=== PATIENT | female | born 1950 | race Caucasian/White ===

== ENCOUNTER 2017-05-02 14:38 | Emergency (ER) | payer MEDICARE, SELFPAY ==
[2017-05-02 14:38] VITALS: BP 176/91; PULSE 87; RESP 18; TEMP 36.2; O2SAT 97; BMI 29.9
[2017-05-02 15:19] LABS: Bacteria 0 SEEN /hpf (None Seen); Mucous, Urine 0 SEEN /hpf (<or=2+); Red Blood Cells-Urine 0 SEEN /hpf (0-5); White Blood Cells 0 SEEN /hpf (0-5)
[2017-05-02 15:32] LABS: Color, Urine Yellow (Yellow); Glucose, Dipstick Normal (Normal); Ketone-Dipstick Negative (Negative); Leukocyte Esterase-Dipstick Negative /ul (Negative); Nitrite-Dipstick Negative (Negative); Occult Blood-Urine Negative /ul (Negative); Protein-Dipstick Negative (Negative); Urine Bilirubin Dipstick Negative (Negative); Urine Clarity Sl. Cloudy (Clear); Urine Urobilinogen Normal (Normal)
[2017-05-02 15:54] LABS: Squamous Epithelial Cells - UA 0-5 SEEN /hpf (5-10)
--- NOTE | 2017-05-02 16:21 | ED.VISSUMM ---
- ER Visit Summary Date of Service: 05/02/17 Chief Complaint: Right flank pain History of Present Illness: The patient is a 67 F who presents with right flank pain and right upper quadrant abdominal pain that began yesterday. Patient states the pain began suddenly. Patient states the pain is aching and stabbing. Patient states pain started over the right upper quadrant and radiated around to her back. Patient has a history of cholecystectomy. Patient states her pain is worse with movement. Patient states her pain improves with heat and rest. Patient denies any nausea or vomiting. Patient denies any diarrhea or constipation. Patient denies any melena or hematochezia. Patient denies any urinary complaints. Physical Examination: Vital signs are stable. Patient is afebrile. Patient is in no acute distress. Oral mucosa is pink and moist. Heart was regular rate and rhythm. Lungs are clear and equal bilaterally. There is good respiratory effort noted. Abdomen is soft. There is some right middle and right lower abdominal tenderness. There is no rebound or guarding noted. There is also some mild lower right flank pain. Strength is 5/5 bilaterally in the upper and lower extremities. There are no sensory deficits noted. There is no calf tenderness noted. Test Results: Urinalysis was within normal limits. CBC was within normal limits. Metabolic profile showed a slight hypokalemia of 3.4. Emergency Department Course and Treatment: Patient was given a dose of morphine here. Patient felt better on reevaluation. Patient was advised of her lab results. Patient was instructed to watch for any rashes. Patient was instructed to follow-up with her primary care physician in 5-7 days. Patient was instructed to return if she did develop a rash. Patient understood and was agreeable with the plan. All questions were answered. Disposition: Discharge home Impression: Right sided abdominal pain This note was generated with [employer] dictation software. It may contain incorrect words, spelling, and punctuation that were not noted in review of the chart prior to signing ED Disposition - Plan for ED Patient: Disposition: Home or Assisted Living Chief Complaint: Flank Pain Diagnosis: Right-sided abdominal pain of unknown cause Instructions: ED Abdominal Pain Unkn Cause Referrals: Paul Reynolds MD [Primary Care Provider] -
[2017-05-02] MEDS: Ketorolac 30 MG/ML Syringe 15 MG IV (16:56)
[2017-05-02 16:57] VITALS: BP 169/92; PULSE 76; RESP 16; O2SAT 93
[2017-05-02 17:06] LABS: Absolute Lymphocyte Count 2.47 X10^3/ul (0.83-4.51); Absolute Neutrophil Count 3.8 X10^3/uL (2.0-7.7); Basophil# 0.04 X10^3/uL; Basophil% 0.6 % (0-1); Eosinophil# 0.16 X10^3/uL; Eosinophils% 2.3 % (0-5); Hematocrit 44.1 % (37-47); Hemoglobin 14.8 g/dl (12.0-15.0); Lymphocyte # 2.47 X10^3/ul (4.0); Lymphocyte % 34.9 % (19-41); Mean Corp Hgb Conc 33.6 g/gl (32-36); Mean Corpuscular Hgb 28.8 pg (27.0-32.0); Mean Corpuscular Volume 85.8 fL (81-99); Mean Platelet Vol. 9.9 fl (6.2-12.0); Monocyte# 0.63 X10^3/uL; Monocyte% 8.9 % (0-10); Neutrophil # 3.76 X10^3/uL (2.7-7.7); POSITIVE COUNT NO; POSITIVE DIFFERENTIAL NO; POSITIVE MORPHOLOGY NO; Platelet Count 253 K/mm3 (150-450); RBC Distribution Width CV 12.9 % (11.6-14.6); RBC Distribution Width SD 39.6 fl (35.1-43.9); Red Blood Count 5.14 M/mm3 (4.2-5.4); White Blood Count 7.1 K/mm3 (4.4-11.0)
[2017-05-02 17:19] LABS: ALB/GLOB Ratio 1.1 RATIO (0.9-2.4); AST(SGOT) 13 U/L (15-37); Alanine Aminotransfer ALT/SGPT 19 U/L (13-56); Albumin, Serum 3.7 g/dL (3.2-5.0); Alkaline Phosphatase 137 U/L (45-117); Anion Gap 9 (5-15); BUN 14 mg/dL (7-18); BUN/Creat Ratio 21.4 RATIO (10-20); Calcium,Total 8.6 mg/dL (8.5-10.1); Chloride 104 mmol/L (98-107); Creatinine, Serum 0.65 mg/dL (0.55-1.02); EST Glomerular Filtration Rate 96 mL/min (>60); Est Glom Filt Rate - Afr Amer 117 mL/min (>60); Estimated Creatinine Clearance 51.81 ml/min; Globulin 3.3 g/dL (2.2-4.2); Glucose 86 mg/dL (74-106); Lipase 146 U/L (73-393); Potassium 3.4 mmol/L (3.5-5.1); Sodium Level 142 mmol/L (136-145)
== END 2017-05-02 18:32 | disposition home or self-care (01) ==
PROVIDERS: Emergency Provider Emergency Medicine; Family Provider Family Medicine; PCP Family Medicine
DX: R10.11 Right upper quadrant pain (principal); E87.6 Hypokalemia; J45.909 Unspecified asthma, uncomplicated; M19.90 Unspecified osteoarthritis, unspecified site; K21.9 Gastro-esophageal reflux disease without esophagitis; Z79.899 Other long term (current) drug therapy; Z90.710 Acquired absence of both cervix and uterus; Z90.49 Acquired absence of other specified parts of digestive tract
CPT/HCPCS: 80053; 81001; 83690; 85025; 96374; 99283; A4216

== ENCOUNTER 2017-08-04 17:45 | Emergency (ER) | payer MEDICARE, SELFPAY ==
--- NOTE | 2017-08-04 13:38 | EKG12_ITS ---
Test Reason : CP Blood Pressure : / mmHG Vent. Rate : 076 BPM Atrial Rate : 076 BPM P-R Int : 132 ms QRS Dur : 078 ms QT Int : 414 ms P-R-T Axes : 045 036 043 degrees QTc Int : 465 ms Normal sinus rhythm Normal ECG Confirmed by MAGGIE ALLEN, KRISTIN ([id number]), writer editor SOFIA ARREDONDO ([id number]) on 08/08/2017 5:41:52 PM Referred By: TOBIAS Confirmed By:KRISTIN SERRANO MD
--- NOTE | 2017-08-04 17:45 | DT_ITS ---
This patient was seen during an EMR downtime July 30, 2017 - August 06, 2017. This patient may have a combination of paper and electronic documentation or all paper documentation. All documentation is viewable within the e-chart portion of [employer] for each patient visit.
--- NOTE | 2017-08-04 17:45 | RAD_ITS ---
STUDY: X-RAY CHEST REASON FOR EXAM: Female, 67 years old. Cough with shortness of breath and chest pain. TECHNIQUE: PA and lateral views of the chest. COMPARISON: None. FINDINGS: The lungs are clear and expanded. There is no demonstrated pleural abnormality. Normal size heart. Normal mediastinum and gagandeep. Normal visualized pulmonary arteries. Normal visualized aortic arch and descending thoracic aorta. There is straightening of the normal kyphosis of the thoracic spine. There are multilevel degenerative changes of the visualized thoracic spine. 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 There is no demonstrated abnormality of the visualized soft tissue structures of the upper abdomen. RAD/Chest PA and Lateral IMPRESSION: No acute cardiopulmonary disease. Electronically Signed: Danilo Dumont MD at 18:17 EDT , Service support ,
[2017-08-07 18:20] LABS: BUN 15 mg/dL (7-18); Glucose 95 mg/dL (74-106)
[2017-08-07 18:21] LABS: Anion Gap 8 (5-15); BUN/Creat Ratio 20.5 RATIO (10-20); Calcium,Total 8.5 mg/dL (8.5-10.1); Chloride 106 mmol/L (98-107); Creatinine, Serum 0.73 mg/dL (0.55-1.02); EST Glomerular Filtration Rate 85 mL/min (>60); Est Glom Filt Rate - Afr Amer 103 mL/min (>60); Potassium 2.9 mmol/L (3.5-5.1); Sodium Level 145 mmol/L (136-145)
[2017-08-07 21:06] LABS: Hematocrit 44.4 % (37-47); Hemoglobin 14.7 g/dl (12.0-15.0); Mean Corpuscular Volume 86.2 fL (81-99); Red Blood Count 5.15 M/mm3 (4.2-5.4); White Blood Count 8.8 K/mm3 (4.4-11.0)
[2017-08-07 21:07] LABS: Absolute Lymphocyte Count 1.49 X10^3/ul (0.83-4.51); Basophil# 0.05 X10^3/uL; Basophil% 0.6 % (0-1); Eosinophil# 0.35 X10^3/uL; Lymphocyte # 1.49 X10^3/ul (4.0); Lymphocyte % 16.9 % (19-41); Mean Corp Hgb Conc 33.1 g/gl (32-36); Mean Corpuscular Hgb 28.5 pg (27.0-32.0); Monocyte# 0.93 X10^3/uL; Monocyte% 10.5 % (0-10); Neutrophil # 6.01 X10^3/uL (2.7-7.7); Neutrophil % 67.9 % (47-70); POSITIVE COUNT NO; POSITIVE DIFFERENTIAL NO; POSITIVE MORPHOLOGY NO; Platelet Count 226 K/mm3 (150-450); RBC Distribution Width CV 12.8 % (11.6-14.6); RBC Distribution Width SD 39.8 fl (35.1-43.9)
== END 2017-08-04 19:15 | disposition home or self-care (01) ==
PROVIDERS: Emergency Provider Emergency Medicine; Family Provider Family Medicine; PCP Family Medicine
DX: J44.1 Chronic obstructive pulmonary disease with (acute) exacerbation (principal); E87.6 Hypokalemia
CPT/HCPCS: 36415; 71046; 80048; 84484; 85025; 93005; 94640; 99282; J7030; A4216

== ENCOUNTER 2017-12-12 07:34 | Emergency (ER) | payer MEDICARE, SELFPAY ==
[2017-12-12 07:35] VITALS: BP 159/87; PULSE 89; RESP 18; TEMP 36; O2SAT 98; BMI 28.2
--- NOTE | 2017-12-12 07:41 | RAD_ITS ---
STUDY: X-RAY CHEST REASON FOR EXAM: Female, 67 years old. Chest pain and shortness of breath. TECHNIQUE: PA and lateral views of the chest. COMPARISON: Comparison is made with prior study dated March 28, 2016. FINDINGS: EKG electrodes are seen. Hyperinflation. Mild increased markings at the lung bases suggestive of a mild bibasilar scarring. No acute infiltrate is seen. There is no demonstrated pleural abnormality. Normal size heart. Normal mediastinum and gagandeep. Normal visualized pulmonary arteries. There is atherosclerotic tortuosity of the aortic arch and descending thoracic aorta. There are diffuse degenerative changes of the visualized thoracic spine. Normal visualized ribs, clavicles, and shoulders. There is no demonstrated abnormality of the visualized soft tissue structures of the upper abdomen. RAD/Chest PA and Lateral IMPRESSION: Stable mild increased markings at the lung bases suggestive of mild scarring. No acute infiltrate is seen. Electronically Signed: Magdiel Cheung MD at 9:19 EDT Tel [phone], Service support ,
--- NOTE | 2017-12-12 07:41 | EKG12_ITS ---
Test Reason : GENERAL ILLNESS Blood Pressure : / mmHG Vent. Rate : 073 BPM Atrial Rate : 073 BPM P-R Int : 144 ms QRS Dur : 070 ms QT Int : 414 ms P-R-T Axes : 078 064 061 degrees QTc Int : 456 ms Sinus rhythm with Premature atrial complexes with Aberrant conduction Otherwise normal ECG Confirmed by MAGGIE ALLEN, KRISTIN ([id number]), book editor SOFIA ARREDONDO ([id number]) on 12/13/2017 10:05:42 AM Referred By: RAFAEL Confirmed By:KRISTIN SERRANO MD
[2017-12-12] MEDS: Ipratropium/Albuterol Sulfate 3 ML AMPUL.NEB INHALATION (07:58)
[2017-12-12 07:59] VITALS: PULSE 79; RESP 26
--- NOTE | 2017-12-12 08:01 | ED.VISSUMM ---
- ER Visit Summary Date of Service: 12/12/17 Chief Complaint: [] flu symptoms today, received flu shot yesterday History of Present Illness: The patient is a 67 F [] history of asthma reports she was well received a flu shot left deltoid, later in the day she felt slightly achy had a slight cough, this morning the symptoms intensified with diffuse body pain cough slight hoarse voice and persistent sense of wheezing and exacerbation of her asthma. She had none of these symptoms before the flu vaccination. She has no history of [place] PE or DVT she has been using her asthma medications she came in because she is concerned she has pneumonia, bowel bladder habits unremarkable the rest of her review of systems are negative Physical Examination: [] Her vital signs are within normal range she is resting comforting the bed she does have a dry cough here her voice is slightly hoarse but there is no stridor or drooling her nose is slightly congested her throat slightly erythematous the neck is supple the lungs are clear the heart tones unremarkable abdomen soft nontender upper lower extremities unremarkable neuro exam is unremarkable she is in no distress Test Results: [] Emergency Department Course and Treatment: [] She is concerned that she contracted the flu from the flu vaccination she does have some viral type symptoms screening labs will be obtained therapy provided Shins EKG troponin screening labs chest x-ray unremarkable, she received IV fluids, she is feeling better, at this time I explained the concept of viral illness the potential that this may or may not be related to the flu vaccination she is feeling comfortable she is willing stable for discharge home and agrees to outpatient management and follow-up her doctors and return for change in symptoms Treatment Plan: [] Disposition: [] Home stable Impression: [] Cough body aches myalgia after flu vaccination, possible viral illness This note was generated with [employer] software. It may contain incorrect words, spelling, and punctuation that were not noted in review of the chart prior to signing ED Disposition - Plan for ED Patient: Chief Complaint: General Illness Referrals: Paul Reynolds MD [Primary Care Provider] -
[2017-12-12 08:29] LABS: Absolute Lymphocyte Count 1.34 X10^3/ul (0.83-4.51); Absolute Neutrophil Count 2.7 X10^3/uL (2.0-7.7); Basophil# 0.01 X10^3/uL; Basophil% 0.2 % (0-1); Eosinophil# 0.07 X10^3/uL; Eosinophils% 1.5 % (0-5); Hematocrit 44.5 % (37-47); Hemoglobin 15.2 g/dl (12.0-15.0); Lymphocyte # 1.34 X10^3/ul (4.0); Lymphocyte % 29.5 % (19-41); Mean Corp Hgb Conc 34.2 g/gl (32-36); Mean Corpuscular Hgb 29.3 pg (27.0-32.0); Mean Corpuscular Volume 85.9 fL (81-99); Mean Platelet Vol. 9.7 fl (6.2-12.0); Monocyte# 0.44 X10^3/uL; Monocyte% 9.7 % (0-10); Neutrophil # 2.67 X10^3/uL (2.7-7.7); Neutrophil % 58.9 % (47-70); POSITIVE COUNT NO; POSITIVE DIFFERENTIAL NO; POSITIVE MORPHOLOGY NO; Platelet Count 187 K/mm3 (150-450); RBC Distribution Width CV 12.4 % (11.6-14.6); RBC Distribution Width SD 38.8 fl (35.1-43.9); Red Blood Count 5.18 M/mm3 (4.2-5.4); White Blood Count 4.5 K/mm3 (4.4-11.0)
[2017-12-12 08:46] LABS: Anion Gap 6 (5-15); BUN 11 mg/dL (7-18); BUN/Creat Ratio 14.6 RATIO (10-20); Calcium,Total 9.1 mg/dL (8.5-10.1); Chloride 106 mmol/L (98-107); Creatinine, Serum 0.75 mg/dL (0.55-1.02); EST Glomerular Filtration Rate 82 mL/min (>60); Est Glom Filt Rate - Afr Amer 99 mL/min (>60); Estimated Creatinine Clearance 51.81 ml/min; Glucose 100 mg/dL (74-106); Potassium 3.8 mmol/L (3.5-5.1); Sodium Level 141 mmol/L (136-145)
--- NOTE | 2017-12-12 10:14 | ED.DEP ---
ED Disposition - Plan for ED Patient: Chief Complaint: General Illness Instructions: ED URI Viral W Wheezing Referrals: Paul Reynolds MD [Primary Care Provider] -
[2017-12-12 10:33] VITALS: BP 120/68; PULSE 80; RESP 16; RESP 17; O2SAT 96
== END 2017-12-12 10:51 | disposition home or self-care (01) ==
LOC: ED 07:59
PROVIDERS: Emergency Provider Emergency Medicine; Family Provider Family Medicine; PCP Family Medicine
DX: J06.9 Acute upper respiratory infection, unspecified (principal); J45.909 Unspecified asthma, uncomplicated; R06.02 Shortness of breath; Z79.899 Other long term (current) drug therapy
CPT/HCPCS: 71046; 80048; 83880; 84484; 85025; 93005; 94640; 96360; 96361; 99284; J7030; J7040

== ENCOUNTER 2018-05-09 09:05 | Emergency (ER) | payer MEDICARE, SELFPAY ==
[2018-05-09 09:06] VITALS: BP 163/82; PULSE 66; RESP 17; TEMP 36.7; O2SAT 98; BMI 28.2
--- NOTE | 2018-05-09 09:15 | CT_ITS ---
STUDY: CT ABDOMEN AND PELVIS WITHOUT CONTRAST REASON FOR EXAM: Female, 68 years old. Right flank pain. RADIATION DOSAGE (If Supplied By Facility): CTDIvol = ( 13.94 ) mGy, DLP = ( 637.22 ) mGycm TECHNIQUE: Transaxial images were obtained from the dome of the diaphragm to the symphysis pubis without oral contrast, and without intravenous contrast. Sagittal and coronal images were reconstructed. Individualized dose optimization techniques were used for this CT. COMPARISON: Comparison is made with prior study dated May 21, 2010. FINDINGS: Minimal increased markings at the left lung base suggestive of left basilar atelectasis. The visualized portions of the heart are within normal limits. Normal liver. The patient is status post cholecystectomy. Normal spleen. 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 Normal pancreas. Normal bilateral adrenal glands. Stable 1 cm x 1.2 cm cyst in the posterior midportion of the right kidney. There is a 2 cm x 1.9 cm cyst in the lower pole of the right kidney. There is a 6.3 mm calculus in the distal portion of the right ureter. Just distal to this, there is a 2 mm calculus in the region of the right ureterovesical junction. Mild degree of right hydronephrosis and right hydroureter. Stable 1.2 cm x 1.4 cm cyst in the upper posterior aspect of the left kidney. There is also evidence of a 2.2 cm x 2.1 cm cyst in the anterior inferior portion of the left kidney. There is a small hiatal hernia. Normal small intestine. There are multiple colonic diverticula consistent with diverticulosis. The appendix is visualized and appears normal. Normal abdominal aorta. Normal inferior vena cava. Normal retroperitoneum. Normal urinary bladder. There is absence of the uterus consistent with a prior hysterectomy. There is a small umbilical hernia containing fat. Normal osseous structures. CT/Abdomen/Pelvis without Cont IMPRESSION: 6.3 mm calculus in the distal portion of the right ureter as well as a 2 mm calculus in the right ureteral vesicle junction causing mild degree of right hydroureter and right hydronephrosis. Bilateral renal cysts. Sigmoid diverticulosis. Electronically Signed: Magdiel Cheung, at 10:29 EDT , Service support ,
--- NOTE | 2018-05-09 09:17 | ED.VISSUMM ---
- ER Visit Summary Date of Service: 05/09/18 Chief Complaint: Right flank pain History of Present Illness: The patient is a 68 F presents to the emergency department right-sided flank pain. Patient states she was in her normal state of health. States last night, she took her dogs out. She states that she thinks she may have twisted and pulled something in her back. She does not recall any specific pain at the time. Overnight, the pain is gotten worse. She describes it as a constant, sharp, stabbing pain. She was mildly nauseated. The pain does radiate into her lower abdomen. She denies any history of kidney stone. She denies any fevers or chills. She has not had any vomiting. She denies any change in bowel habits. Physical Examination: Vital signs reviewed General: Well-nourished, well-developed Head: Normocephalic, atraumatic Eyes: Pupils equal and reactive, extraocular muscles intact Neck, supple, no lymphadenopathy Heart: Regular rate and rhythm Respiratory: No distress, clear bilaterally Abdomen: Soft, nontender, nondistended, no peritoneal signs Back: Right CVA tenderness, no rash, no vesicles Extremities: Nontender, no edema, no cords Skin: Normal color no rash Neuro: Alert and oriented, no focal or lateralizing deficits Test Results: [] Emergency Department Course and Treatment: The patient presents with right-sided flank pain. It is reproducible on exam. Her skin is intact. She was given analgesics and antiemetics. She did have marked improvement of her pain was resting comfortably. Screening labs are unremarkable. CT does demonstrate a 6 mm distal obstructing stone with mild hydronephrosis. On reevaluation, the patient is pain-free. She wants to attempt outpatient therapy and I feel this is reasonable. She will be prescribed analgesics and antiemetics. She will be given outpatient neurology follow-up. She was counseled on concerning symptoms and reasons to return. I also told her to return if her pain is not controlled at home. Patient will be discharged. Treatment Plan: [] Disposition: Discharge Impression: 1. 6 mm right kidney stone This note was generated with [employer] dictation software. It may contain incorrect words, spelling, and punctuation that were not noted in review of the chart prior to signing ED Disposition - Plan for ED Patient: Instructions: ED Stone Renal W Colic Prescriptions: Hydrocodone Bitart/Apap 5-325 [[place] 5MG-325MG] 1 tab PO Q6H PRN PRN 3 Days #10 tab PRN Reason: Pain Ondansetron [Zofran Odt] 4 mg PO Q8H PRN PRN #10 tab PRN Reason: Nausea Tamsulosin HCl [Flomax] 0.4 mg PO DAILY #7 cap Referrals: Harsh Coleman MD [STAFF PHYSICIAN] - 2 Days
[2018-05-09 09:34] LABS: Absolute Neutrophil Count 2.6 X10^3/uL (2.0-7.7); Basophil# 0.05 X10^3/uL; Eosinophil# 0.14 X10^3/uL; Eosinophils% 2.7 % (0-5); Hematocrit 44.5 % (37-47); Hemoglobin 14.6 g/dl (12.0-15.0); Mean Corp Hgb Conc 32.8 g/gl (32-36); Mean Corpuscular Hgb 28.3 pg (27.0-32.0); Mean Corpuscular Volume 86.4 fL (81-99); Mean Platelet Vol. 9.7 fl (6.2-12.0); Monocyte# 0.49 X10^3/uL; Monocyte% 9.5 % (0-10); Neutrophil # 2.55 X10^3/uL (2.7-7.7); Neutrophil % 49.6 % (47-70); Platelet Count 219 K/mm3 (150-450); RBC Distribution Width CV 12.5 % (11.6-14.6); RBC Distribution Width SD 39.7 fl (35.1-43.9); Red Blood Count 5.15 M/mm3 (4.2-5.4); White Blood Count 5.1 K/mm3 (4.4-11.0)
[2018-05-09 09:36] LABS: POSITIVE COUNT NO; POSITIVE DIFFERENTIAL NO; POSITIVE MORPHOLOGY NO
[2018-05-09] MEDS: Ketorolac 30 MG/ML Syringe 15 MG IV (09:39)
[2018-05-09] MEDS: Ondansetron 4 MG/2 ML Vial IV (09:39)
[2018-05-09] MEDS: Morphine 4 MG/ML Syringe IV (09:40)
[2018-05-09] MEDS: 0.9% Normal Saline 1,000 ML 250 ML IV (09:40)
[2018-05-09 09:45] LABS: Anion Gap 6 (5-15); BUN 13 mg/dL (7-18); BUN/Creat Ratio 20.9 RATIO (10-20); Calcium,Total 8.4 mg/dL (8.5-10.1); Chloride 109 mmol/L (98-107); Creatinine, Serum 0.62 mg/dL (0.55-1.02); EST Glomerular Filtration Rate 102 mL/min (>60); Est Glom Filt Rate - Afr Amer 123 mL/min (>60); Estimated Creatinine Clearance 51.11 ml/min; Glucose 83 mg/dL (74-106); Potassium 3.5 mmol/L (3.5-5.1); Sodium Level 140 mmol/L (136-145)
[2018-05-09 10:29] LABS: Bacteria 0 SEEN /hpf (None Seen); Mucous, Urine 0 SEEN /hpf (<or=2+); Red Blood Cells-Urine 0 SEEN /hpf (0-5); White Blood Cells 0 SEEN /hpf (0-5)
[2018-05-09 10:30] LABS: Color, Urine Yellow (Yellow); Glucose, Dipstick Normal (Normal); Ketone-Dipstick Negative (Negative); Leukocyte Esterase-Dipstick Negative /ul (Negative); Nitrite-Dipstick Negative (Negative); Occult Blood-Urine Negative /ul (Negative); Protein-Dipstick Negative (Negative); Specific Gravity, Urine 1.015 (1.002-1.030); Urine Bilirubin Dipstick Negative (Negative); Urine Clarity Sl. Cloudy (Clear); Urine Urobilinogen Normal (Normal)
[2018-05-09 10:37] LABS: Squamous Epithelial Cells - UA 0-5 SEEN /hpf (5-10)
[2018-05-09 11:52] VITALS: RESP 18
== END 2018-05-09 11:57 | disposition home or self-care (01) ==
LOC: ED 09:35
PROVIDERS: Emergency Provider Emergency Medicine; Family Provider Family Medicine; PCP Family Medicine
DX: N13.2 Hydronephrosis with renal and ureteral calculous obstruction (principal); J44.9 Chronic obstructive pulmonary disease, unspecified; K58.9 Irritable bowel syndrome, unspecified; K21.9 Gastro-esophageal reflux disease without esophagitis; Z79.899 Other long term (current) drug therapy
CPT/HCPCS: 74176; 80048; 81001; 85025; 96361; 96374; 96375; 99284; J7030; A4216; J2405

== ENCOUNTER 2018-07-02 16:43 | Observation (INO) | payer MEDICARE, SELFPAY ==
[2018-07-02 16:44] VITALS: BP 160/77; PULSE 73; RESP 16; TEMP 36.3; BMI 34.8
--- NOTE | 2018-07-02 17:10 | CT_ITS ---
STUDY: CT BRAIN WITHOUT CONTRAST REASON FOR EXAM: Female, 68 years old. Headache RADIATION DOSAGE (If Supplied By Facility): TECHNIQUE: Transaxial CT imaging of the brain was performed without administration of intravenous contrast material. Individualized dose optimization techniques were used for this CT. COMPARISON: CT head March 17, 2016 FINDINGS: There is no acute bleed or infarct. There are normal white matter tracts. The ventricles are normal in configuration. There is no hydrocephalus. Left maxillary sinus disease is present. The mastoid air cells are well aerated. There is no skull fracture. CT/Brain/Head without Contrast IMPRESSION: No acute intracranial abnormality. Left maxillary sinus disease. Electronically Signed: Paul Gatica, at 19:16 EDT Tel , Service support ,
--- NOTE | 2018-07-02 17:10 | EKG12_ITS ---
Test Reason : DIZZINESS Blood Pressure : / mmHG Vent. Rate : 056 BPM Atrial Rate : 056 BPM P-R Int : 156 ms QRS Dur : 086 ms QT Int : 472 ms P-R-T Axes : 048 017 027 degrees QTc Int : 455 ms Sinus bradycardia Otherwise normal ECG Confirmed by MAX BELLAMY ([id number]), make up editor DERECK ALBA ([id number]) on 07/05/2018 11:00:35 AM Referred By: Caroline Hutchison Confirmed By:MAX BELLAMY
[2018-07-02 17:51] LABS: Absolute Lymphocyte Count 2.35 X10^3/ul (0.83-4.51); Absolute Neutrophil Count 2.1 X10^3/uL (2.0-7.7); Basophil# 0.02 X10^3/uL; Basophil% 0.4 % (0-1); Eosinophil# 0.11 X10^3/uL; Eosinophils% 2.2 % (0-5); Hematocrit 42.2 % (37-47); Hemoglobin 13.9 g/dl (12.0-15.0); Lymphocyte # 2.35 X10^3/ul (4.0); Lymphocyte % 46.6 % (19-41); Mean Corp Hgb Conc 32.9 g/gl (32-36); Mean Corpuscular Hgb 28.2 pg (27.0-32.0); Mean Corpuscular Volume 85.6 fL (81-99); Mean Platelet Vol. 10.1 fl (6.2-12.0); Monocyte# 0.48 X10^3/uL; Monocyte% 9.5 % (0-10); Neutrophil # 2.08 X10^3/uL (2.7-7.7); Neutrophil % 41.3 % (47-70); POSITIVE COUNT NO; POSITIVE DIFFERENTIAL NO; POSITIVE MORPHOLOGY NO; Platelet Count 231 K/mm3 (150-450); RBC Distribution Width SD 39.8 fl (35.1-43.9); Red Blood Count 4.93 M/mm3 (4.2-5.4)
[2018-07-02 18:01] LABS: Anion Gap 1 (5-15); BUN 16 mg/dL (7-18); BUN/Creat Ratio 23.2 RATIO (10-20); Calcium,Total 8.1 mg/dL (8.5-10.1); Chloride 110 mmol/L (98-107); Creatinine, Serum 0.69 mg/dL (0.55-1.02); EST Glomerular Filtration Rate 90 mL/min (>60); Est Glom Filt Rate - Afr Amer 109 mL/min (>60); Estimated Creatinine Clearance 51.11 ml/min; Glucose 89 mg/dL (74-106); Potassium 3.4 mmol/L (3.5-5.1); Sodium Level 142 mmol/L (136-145)
[2018-07-02 18:55] VITALS: BP 151/76; PULSE 59; RESP 17; O2SAT 97
--- NOTE | 2018-07-02 19:39 | PCM.HP.STD ---
Problem List (1) CVA (cerebral vascular accident) Status: Acute Qualifiers: CVA mechanism: unspecified Qualified Code(s): I63.9 - Cerebral infarction, unspecified (2) HTN (hypertension) Status: Chronic Qualifiers: Hypertension type: essential hypertension Qualified Code(s): I10 - Essential (primary) hypertension (3) HLD (hyperlipidemia) Status: Chronic Qualifiers: Hyperlipidemia type: unspecified Qualified Code(s): E78.5 - Hyperlipidemia, unspecified (4) BMI greater than 30 Status: Chronic (5) Migraine Status: Chronic Qualifiers: Migraine type: unspecified (6) GERD (gastroesophageal reflux disease) Status: Chronic Qualifiers: Esophagitis presence: without esophagitis Qualified Code(s): K21.9 - Gastro-esophageal reflux disease without esophagitis (7) Asthma exacerbation Status: Chronic Qualifiers: Asthma severity: unspecified severity Asthma persistence: unspecified Qualified Code(s): J45.901 - Unspecified asthma with (acute) exacerbation History of Present Illness Date of Admission: 07/02/18 Chief Complaint: Dizziness The patient is a 68 y/o F w/ PMHx: Dizziness, Migraines, Dry Eyes, GERD, OA, Hx prior Vertigo, IBS, HTN, HLD, Asthma, Chronic Back Pain, Obesity, History of L ankle trauma, chronic brace usage, chronic paresthesias ankle distally, History of R sided Mastoid Tumor (unclear type, s/p resection) who presents to the [facility] ED on 07/02/18 with history of onset difficulties walking, falling to the right side since waking up 07/01/18 AM, worsening since with no vertigo, but noted lightheadedness, band-like pressure type headache stretching from each hindu wrapping around the posterior region of the head with mild light and sound sensitivities with noted occasional mild vision blurring, lasting only seconds then resolving. She does have migraine history and usually notes onset light and sound sensitivity with a frontal throbbing headache with always nausea associated which she does not have at this time and this is very different than her normal migraine. Work-up in the ED included T 97.3, heart 73, BP 160/77, respiratory rate 16, 97% on room air, CBC with WBC 5, heme globin 13.9, platelet 231 without any left shift noted but increased lymphocyte percent, BMP with potassium 3.4, chloride 110 otherwise not marked appearing, telemetry w/ sinus bradycardia, EKG w/ SB unchanged from prior, CT brain with no acute intracranial abnormality with left maxillary sinus disease. Past Medical History Past Medical History (Chronic Problems): Chronic Problems HTN (hypertension) (Chronic) HLD (hyperlipidemia) (Chronic) BMI greater than 30 (Chronic) Migraine (Chronic) GERD (gastroesophageal reflux disease) (Chronic) Asthma exacerbation (Chronic) Allergies adhesive tape Allergy (Verified 05/09/18 09:06) Rash propoxyphene HCl [From Darvon] Allergy (Verified 05/09/18 09:06) Rash sulfamethoxazole [From Bactrim] Allergy (Verified 05/09/18 09:06) Shortness of breath trimethoprim [From Bactrim] Allergy (Verified 05/09/18 09:06) Shortness of breath venom-honey bee [bee venom (honey bee)] Allergy (Verified 05/09/18 09:06) Anaphylaxis venom-wasp [wasp venom] Allergy (Verified 05/09/18 09:06) Anaphylaxis prednisone Adverse Reaction (Verified 05/09/18 09:06) Diarrhea Home Medications: Ambulatory Orders Medication Instructions Recorded Epi Pen (for allergic rxn) 0.3 mg IM X1 05/04/13 Glucosa Barr 2Kcl/Chondroitin Barr 1 each PO DAILY 05/04/13 [Glucosamine-Chondroitin Cap] Loratadine [Claritin] 10 mg PO DAILY 05/04/13 Propranolol HCl [Inderal Xl (Beta 20 mg PO DAILY 05/04/13 Ezio)] Sumatriptan Succinate [Imitrex] 50 mg PO PRN PRN 05/04/13 Albuterol Sulfate [Ventolin Hfa] 2 puff IH Q6H PRN PRN 12/26/15 Colestipol Tablet [Colestid Tablet] 1 gm PO QHS 12/26/15 Pantoprazole Sodium [Protonix] 20 mg PO DAILY 12/26/15 Meloxicam [Mobic] 7.5 mg PO BID 01/06/16 Butalb/Acetaminophen/Caffeine 1 each PO BID PRN 03/10/16 [Xjnblz-Lzgcrlsf-Myje 50-300-40] Calcium Carbonate/Vitamin D3 1 each PO DAILY 03/28/16 [Calcium 500-Vit D3 200 Tablet] CycloSPORINE Ophthalmic [Restasis 1 drop EACH EYE BID 03/28/16 Ophthalmic] Fluticasone/Salmeterol [Advair 1 each IH DAILY 03/28/16 100-50 Diskus] Meclizine HCl 25 mg PO Q6H PRN 03/28/16 Guaifenesin [Mucinex] 1,200 mg PO BID #14 tablet 03/29/16 Tamsulosin HCl [Flomax] 0.4 mg PO DAILY #7 cap 05/09/18 Surgical History: - - Cholecystectomy, hysterectomy, right mastoid tumor resection. 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 She denies any known history of heart disease, diabetes or cancer. Review of Systems Constitutional: Reports: Malaise, Weakness, Fatigue. Denies: Chills, Fever, Weight Change Eyes: Reports: Blurred vision, Vision Change HEENT: Reports: Head Aches. Denies: Sinus Congestion, Sinus Drainage Cardiovascular: Denies: Chest Pain, Palpitations Respiratory: Denies: Cough, Shortness of breath at rest, Sputum production Gastrointestinal: Denies: Abdominal Pain, Nausea, Vomiting Genitourinary: Denies: Dysuria Musculoskeletal: Reports: Back Pain. Denies: Joint Pain, Joint Tenderness Skin: Denies: Rash, Wounds Neurological: Reports: Balance problems, Blurred vision, Headaches, Numbness, Tingling. Denies: Focal weakness Psychiatric: Denies: Anxiety, Depression, Homicidal Ideations, Suicidal Ideations Hematologic/ Lymphatic: Denies: Easy Bruising, Easy Bleeding VTE Information - Inpt Only VTE Present on Admission: No VTE Mechan Device Prophylaxis: SCD's VTE Pharm Prophylaxis ordered?: Yes Patient Problems: Active and Suspected Problems CVA (cerebral vascular accident) (Acute) Subjective: Seated upright in the ED bed, well appearing, asymptomatic expect with ambulation attempts. Objective: Physical Examination: General: awake, alert, oriented x 3 and cooperative, seated upright in bed in no apparent distress. Skin: normal color, turgor, no icterus, cyanosis except some noted mild irritation at points of brace on left lower extremity. HEENT: AT/NC, EOMI, PERRLA, mildly dry MM, no carotid bruits or JVD noted. Lungs: CTA bilaterally, moderate effort, mild decrease BL bases, no rales, ronchi or wheezing. Heart: Bradycardic with regular rhythm; no gallop, rub audible. Abdomen: soft, obese, NTTP, ND, normal BS, no HSM. Extremities: no cyanosis, clubbing, left ankle with mild deformity, mild edema, some irritation at the points of narrowing on chronically used brace, paresthesias proximal ankle downward chronically. Neurological: patient awake, alert, oriented x 3; cognitive function intact; pupils equally reactive to light and accomodation; cranial nerves II-XII grossly normal, moving all 4 extremities except some limitation left ankle chronically with sensation intact except left ankle downward distally chronically, negative Babinski, qugrvh-ce-yquu and oeem-si-irsc intact although some limitation with left foot, gait abnormality with leaning primarily towards the right with notable debility, strength otherwise intact on examination in bed. Psychiatric: affect appears mildly fatigued, no acute evidence of depressive or anxiety feelings. - Physical Exam Vital Signs Temp Pulse Resp BP Pulse Ox 97.3 F L 59 L 17 151/76 H 97 07/02/18 16:44 07/02/18 18:55 07/02/18 18:55 07/02/18 18:55 07/02/18 18:55 Oxygen Delivery Method Room Air Weight: 215 lb 13.321 oz Body Mass Index (BMI) 34.8 Laboratory Tests Past 24 Hrs 07/02/18 07/02/18 17:30 17:30 WBC 5.0 RBC 4.93 Hgb 13.9 Hct 42.2 MCV 85.6 MCH 28.2 MCHC 32.9 RDW 13.0 RDW Differential 39.8 Plt Count 231 MPV 10.1 Immature Gran % (Auto) 0.000 Neut % (Auto) 41.3 L Lymph % (Auto) 46.6 H [place] % (Auto) 9.5 Eos % (Auto) 2.2 Baso % (Auto) 0.4 Absolute Neuts (auto) 2.1 Absolute Lymphs (auto) 2.35 Total Counted Not Reportable Sodium 142 Potassium 3.4 L Chloride 110 H Carbon Dioxide 31.0 Anion Gap 1 L BUN 16 Creatinine 0.69 Estim Creat Clear Calc 51.11 Est GFR (MDRD) Af Amer 109 Est GFR (MDRD) Non-Af 90 BUN/Creatinine Ratio 23.2 H Glucose 89 Calcium 8.1 L Assessment/Plan All Active Problems CVA (cerebral vascular accident) (Acute) The patient is a 68 y/o F w/ PMHx: Dizziness, Migraines, Dry Eyes, GERD, OA, Hx prior Vertigo, IBS, HTN, HLD, Asthma, Chronic Back Pain, Obesity, History of L ankle trauma, chronic brace usage, chronic paresthesias ankle distally, History of R sided Mastoid Tumor who presents to the [facility] ED on 07/02/18 with history of onset difficulties walking, falling to the right side since waking up 07/01/18 AM, worsening since with no vertigo, but noted lightheadedness, band-like pressure type headache stretching from each hindu wrapping around the posterior region of the head with mild light and sound sensitivities with noted occasional mild vision blurring, lasting only seconds then resolving. (1) Dizziness, Ataxia, Vision Changes concerning for Possible Posterior CVA versus Complex Migraine: Work-up in the ED included T 97.3, heart 73, BP 160/77, respiratory rate 16, 97% on room air, CBC with WBC 5, heme globin 13.9, platelet 231 without any left shift noted but increased lymphocyte percent, BMP with potassium 3.4, chloride 110 otherwise not marked appearing, telemetry w/ sinus bradycardia, EKG w/ SB unchanged from prior, CT brain with no acute intracranial abnormality with left maxillary sinus disease. Will admit to PCU, will obtain MRI Brain, MRA Head and Neck, ECHO, PT/OT/Speech/Nutrition evaluation per protocol. Will consult Neurology for evaluation. Will allow permissive HTN, maintain on asa, change to high dose statin w/ AM FLP, fall precautions. Mag, TSH, HgbA1c pending. If MRI unremarkable then may need to consider complex migraine if symptoms ongoing. (2) Hypokalemia: Admission K+ 3.4, supplementation given, repeat level in AM. (3) Hypertension: Permissive. (4) Hyperlipidemia: Change to high dose statin, FLP in AM. (5) Chronic Asthma: ATC duonebs, PRN albuterol, HOB, IS parameters. (6) Chronic migraines: Holding propranolol regimen given temporary permissive HTN parameters and additionally will hold Imitrex given acute presentation pending neurological evaluation. (7) Dry eyes, chronic: We will continue home Restasis regimen. (8) Obesity: Weight loss and lifestyle changes encouraged, nutrition consulted for education and teaching. (9) History of R Sided Mastoid Tumor: Unclear type, s/p resection 2-3 years prior possibly, per Dr. Brandon Balderas, attempted to retrieve pathology, did not locate. (10) GERD: PPI. (11) DVT prophylaxis: SCDs, Lovenox. Code Visit OBSV E&M: 02055 Initial observation care L3
--- NOTE | 2018-07-02 19:51 | HP.PCM_ITS ---
Problem List (1) CVA (cerebral vascular accident) Status: Acute Qualifiers: CVA mechanism: unspecified Qualified Code(s): I63.9 - Cerebral infarction, unspecified (2) HTN (hypertension) Status: Chronic Qualifiers: Hypertension type: essential hypertension Qualified Code(s): I10 - Essential (primary) hypertension (3) HLD (hyperlipidemia) Status: Chronic Qualifiers: Hyperlipidemia type: unspecified Qualified Code(s): E78.5 - Hyperlipidemia, unspecified (4) BMI greater than 30 Status: Chronic (5) Migraine Status: Chronic Qualifiers: Migraine type: unspecified (6) GERD (gastroesophageal reflux disease) Status: Chronic Qualifiers: Esophagitis presence: without esophagitis Qualified Code(s): K21.9 - Gastro-esophageal reflux disease without esophagitis (7) Asthma exacerbation Status: Chronic Qualifiers: Asthma severity: unspecified severity Asthma persistence: unspecified Qualified Code(s): J45.901 - Unspecified asthma with (acute) exacerbation History of Present Illness Date of Admission: 07/02/18 Chief Complaint: Dizziness The patient is a 68 y/o F w/ PMHx: Dizziness, Migraines, Dry Eyes, GERD, OA, Hx prior Vertigo, IBS, HTN, HLD, Asthma, Chronic Back Pain, Obesity, History of L ankle trauma, chronic brace usage, chronic paresthesias ankle distally, History of R sided Mastoid Tumor (unclear type, s/p resection) who presents to the [facility] ED on 07/02/18 with history of onset difficulties walking, falling to the right side since waking up 07/01/18 AM, worsening since with no vertigo, but noted lightheadedness, band-like pressure type headache stretching from each buddhism wrapping around the posterior region of the head with mild light and sound sens itivities with noted occasional mild vision blurring, lasting only seconds then resolving. She does have migraine history and usually notes onset light and sound sensitivity with a frontal throbbing headache with always nausea associated which she does not have at this time and this is very different than her normal migraine. Work-up in the ED included T 97.3, heart 73, BP 160/77, respiratory rate 16, 97% on room air, CBC with WBC 5, heme globin 13.9, platelet 231 without any left shift noted but increased lymphocyte percent, BMP with potassium 3.4, chloride 110 otherwise not marked appearing, telemetry w/ sinus bradycardia, EKG w/ SB unchanged from prior, CT brain with no acute intracranial abnormality with left maxillary sinus disease. Past Medical History Past Medical History (Chronic Problems): Chronic Problems HTN (hypertension) (Chronic) HLD (hyperlipidemia) (Chronic) BMI greater than 30 (Chronic) Migraine (Chronic) GERD (gastroesophageal reflux disease) (Chronic) Asthma exacerbation (Chronic) Allergies adhesive tape Allergy (Verified 05/09/18 09:06) Rash propoxyphene HCl [From Darvon] Allergy (Verified 05/09/18 09:06) Rash sulfamethoxazole [From Bactrim] Allergy (Verified 05/09/18 09:06) Shortness of breath trimethoprim [From Bactrim] Allergy (Verified 05/09/18 09:06) Shortness of breath venom-honey bee [bee venom (honey bee)] Allergy (Verified 05/09/18 09:06) Anaphylaxis venom-wasp [wasp venom] Allergy (Verified 05/09/18 09:06) Anaphylaxis prednisone Adverse Reaction (Verified 05/09/18 09:06) Diarrhea Home Medications: Ambulatory Orders Medication Instructions Recorded Epi Pen (for allergic rxn) 0.3 mg IM X1 05/04/13 Glucosa Barr 2Kcl/Chondroitin Barr 1 each PO DAILY 05/04/13 [Glucosamine-Chondroitin Cap] Loratadine [Claritin] 10 mg PO DAILY 05/04/13 Propranolol HCl [Inderal Xl (Beta 20 mg PO DAILY 05/04/13 Ezio)] Sumatriptan Succinate [Imitrex] 50 mg PO PRN PRN 05/04/13 Albuterol Sulfate [Ventolin Hfa] 2 puff IH Q6H PRN PRN 12/26/15 Colestipol Tablet [Colestid Tablet] 1 gm PO QHS 12/26/15 Pantoprazole Sodium [Protonix] 20 mg PO DAILY 12/26/15 Meloxicam [Mobic] 7.5 mg PO BID 01/06/16 Butalb/Acetaminophen/Caffeine 1 each PO BID PRN 03/10/16 [Hottbn-Ineurxos-Amqd 50-300-40] Calcium Carbonate/Vitamin D3 1 each PO DAILY 03/28/16 [Calcium 500-Vit D3 200 Tablet] CycloSPORINE Ophthalmic [Restasis 1 drop EACH EYE BID 03/28/16 Ophthalmic] Fluticasone/Salmeterol [Advair 1 each IH DAILY 03/28/16 100-50 Diskus] Meclizine HCl 25 mg PO Q6H PRN 03/28/16 Guaifenesin [Mucinex] 1,200 mg PO BID #14 tablet 03/29/16 Tamsulosin HCl [Flomax] 0.4 mg PO DAILY #7 cap 05/09/18 Surgical History: - - Cholecystectomy, hysterectomy, right mastoid tumor resection. 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 She denies any known history of heart disease, diabetes or cancer. Review of Systems Constitutional: Reports: Malaise, Weakness, Fatigue. Denies: Chills, Fever, Weight Change Eyes: Reports: Blurred vision, Vision Change HEENT: Reports: Head Aches. Denies: Sinus Congestion, Sinus Drainage Cardiovascular: Denies: Chest Pain, Palpitations Respiratory: Denies: Cough, Shortness of breath at rest, Sputum production Gastrointestinal: Denies: Abdominal Pain, Nausea, Vomiting Genitourinary: Denies: Dysuria Musculoskeletal: Reports: Back Pain. Denies: Joint Pain, Joint Tenderness Skin: Denies: Rash, Wounds Neurological: Reports: Balance problems, Blurred vision, Headaches, Numbness, Tingling. Denies: Focal weakness Psychiatric: Denies: Anxiety, Depression, Homicidal Ideations, Suicidal Ideations Hematologic/ Lymphatic: Denies: Easy Bruising, Easy Bleeding VTE Information - Inpt Only VTE Present on Admission: No VTE Mechan Device Prophylaxis: SCD's VTE Pharm Prophylaxis ordered?: Yes Patient Problems: Active and Suspected Problems CVA (cerebral vascular accident) (Acute) Subjective: Seated upright in the ED bed, well appearing, asymptomatic expect with ambulation attempts. Objective: Physical Examination: General: awake, alert, oriented x 3 and cooperative, seated upright in bed in no apparent distress. Skin: normal color, turgor, no icterus, cyanosis except some noted mild i rritation at points of brace on left lower extremity. HEENT: AT/NC, EOMI, PERRLA, mildly dry MM, no carotid bruits or JVD noted. Lungs: CTA bilaterally, moderate effort, mild decrease BL bases, no rales, ronchi or wheezing. Heart: Bradycardic with regular rhythm; no gallop, rub audible. Abdomen: soft, obese, NTTP, ND, normal BS, no HSM. Extremities: no cyanosis, clubbing, left ankle with mild deformity, mild edema, some irritation at the points of narrowing on chronically used brace, paresthesias proximal ankle downward chronically. Neurological: patient awake, alert, oriented x 3; cognitive function intact; pupils equally reactive to light and accomodation; cranial nerves II-XII grossly normal, moving all 4 extremities except some limitation left ankle chronically with sensation intact except left ankle downward distally chronically, negative Babinski, fipour-vs-bxvj and dxjw-il-vjaf intact although some limitation with left foot, gait abnormality with leaning primarily towards the right with notable debility, strength otherwise intact on examination in bed. Psychiatric: affect appears mildly fatigued, no acute evidence of depressive or anxiety feelings. - Physical Exam Vital Signs Temp Pulse Resp BP Pulse Ox 97.3 F L 59 L 17 151/76 H 97 07/02/18 16:44 07/02/18 18:55 07/02/18 18:55 07/02/18 18:55 07/02/18 18:55 Oxygen Delivery Method Room Air Weight: 215 lb 13.321 oz Body Mass Index (BMI) 34.8 Laboratory Tests Past 24 Hrs 07/02/18 07/02/18 17:30 17:30 WBC 5.0 RBC 4.93 Hgb 13.9 Hct 42.2 MCV 85.6 MCH 28.2 MCHC 32.9 RDW 13.0 RDW Differential 39.8 Plt Count 231 MPV 10.1 Immature Gran % (Auto) 0.000 Neut % (Auto) 41.3 L Lymph % (Auto) 46.6 H [place] % (Auto) 9.5 Eos % (Auto) 2.2 Baso % (Auto) 0.4 Absolute Neuts (auto) 2.1 Absolute Lymphs (auto) 2.35 Total Counted Not Reportable Sodium 142 Potassium 3.4 L Chloride 110 H Carbon Dioxide 31.0 Anion Gap 1 L BUN 16 Creatinine 0.69 Estim Creat Clear Calc 51.11 Est GFR (MDRD) Af Amer 109 Est GFR (MDRD) Non-Af 90 BUN/Creatinine Ratio 23.2 H Glucose 89 Calcium 8.1 L Assessment/Plan All Active Problems CVA (cerebral vascular accident) (Acute) The patient is a 68 y/o F w/ PMHx: Dizziness, Migraines, Dry Eyes, GERD, OA, Hx prior Vertigo, IBS, HTN, HLD, Asthma, Chronic Back Pain, Obesity, History of L ankle trauma, chronic brace usage, chronic paresthesias ankle distally, History of R sided Mastoid Tumor who presents to the [facility] ED on 07/02/18 with history of onset difficulties walking, falling to the right side since waking up 07/01/18 AM, worsening since with no vertigo, but noted lightheadedness, band-like pressure type headache stretching from each buddhism wrapping around the posterior region of the head with mild light and sound sensitivities with noted occasional mild vision blurring, lasting only seconds then resolving. (1) Dizziness, Ataxia, Vision Changes concerning for Possible Posterior CVA versus Complex Migraine: Work-up in the ED included T 97.3, heart 73, BP 160/77, respiratory rate 16, 97% on room air, CBC with WBC 5, heme globin 13.9, platelet 231 without any left shift noted but increased lymphocyte percent, BMP with potassium 3.4, chloride 110 otherwise not marked appearing, telemetry w/ sinus bradycardia, EKG w/ SB unchanged from prior, CT brain with no acute intracranial abnormality with left maxillary sinus disease. Will admit to PCU, will obtain MRI Brain, MRA Head and Neck, ECHO, PT/OT/Speech/Nutrition evaluation per protocol. Will consult Neurology for evaluation. Will allow permissive HTN, maintain on asa, change to high dose statin w/ AM FLP, fall precautions. Mag, TSH, HgbA1c pending. If MRI unremarkable then may need to consider complex migraine if symptoms ongoing. (2) Hypokalemia: Admission K+ 3.4, supplementation given, repeat level in AM. (3) Hypertension: Permissive. (4) Hyperlipidemia: Change to high dose statin, FLP in AM. (5) Chronic Asthma: ATC duonebs, PRN albuterol, HOB, IS parameters. (6) Chronic migraines: Holding propranolol regimen given temporary permissive HTN parameters and additionally will hold Imitrex given acute presentation pending neurological evaluation. (7) Dry eyes, chronic: We will continue home Restasis regimen. (8) Obesity: Weight loss and lifestyle changes encouraged, nutrition consulted for education and teaching. (9) History of R Sided Mastoid Tumor: Unclear type, s/p resection 2-3 years prior possibly, per Dr. Brandon Balderas, attempted to retrieve pathology, did not locate. (10) GERD: PPI. (11) DVT prophylaxis: SCDs, Lovenox. Code Visit OBSV E&M: 38042 Initial observation care L3
--- NOTE | 2018-07-02 19:53 | ED.VISSUMM ---
- ER Visit Summary Date of Service: 07/02/18 Chief Complaint: Dizziness and off balance with trouble walking History of Present Illness: The patient is a 68 F no history of reflux, diverticulosis, irritable bowel, hypertension, asthma, migraines and kidney stones. Also prior history of vertigo but states this is unlike her vertigo when she has that she says the room is spinning and she gets real nauseated. Patient states she woke up today and noticed she felt off balance. She had a mild frontal and posterior headache. Denies any falls or head traumas. She is on no blood thinners. She had no LOC. She denies any trouble using her arms or legs. States when she walks she seems to drift her fall off to the right. She has almost fallen several times. Physical Examination: Older female no acute distress vital signs are stable. She is afebrile. She does not look septic or toxic. H EENT exam unremarkable. No signs of trauma. Pupils round reactive light. Extra motions are intact. No facial droop. Normal speech. Tongue midline. Neck nontender. No bruits appreciated. Lungs clear to auscultation bilaterally. Heart regular rhythm no murmur. Rate about 60. Abdomen soft and nontender. Normal bowel sounds no peritoneal signs. Patient is moving all 4 extremities. They are neurovascularly intact. She has normal equal symmetrical loom checker strength bilaterally. Plantar flexion intact. Fingertip to nose within normal limits. Back exam unremarkable. Neurologically she is awake and alert with no focal motor deficits while lying in bed. While in bed her NIH score is 0. Getting the patient up and ambulating her she seems to drift off to the right walking and almost fell several times but we are able to catch her. Test Results: CT of the brain shows no acute abnormality as reviewed by me and read by the radiologist. EKG is a sinus bradycardia rate of 56. CBC unremarkable with a white count of 6 and hemoglobin 13. Electrolytes unremarkable. Gap of 1 creatinine 0.6. Emergency Department Course and Treatment: Repeat exam at 1931 unchanged. Due to the patient's inability to ambulate and concern for a possible underlying stroke she will be admitted for further evaluation. I discussed this with her and her family. They are comfortable with the plan. Treatment Plan: I spoke to the hospitalist about an admission to the PCU. Disposition: Admission Impression: Dizziness and off-balance with ataxia of uncertain etiology This note was generated with [employer] dictation software. It may contain incorrect words, spelling, and punctuation that were not noted in review of the chart prior to signing ED Disposition - Plan for ED Patient: Referrals: Paul Reynolds MD [Primary Care Provider] -
--- NOTE | 2018-07-02 19:56 | ED.DCSUM_ITS ---
- ER Visit Summary Date of Service: 07/02/18 Chief Complaint: Dizziness and off balance with trouble walking History of Present Illness: The patient is a 68 F no history of reflux, diverticulosis, irritable bowel, hypertension, asthma, migraines and kidney stones. Also prior history of vertigo but states this is unlike her vertigo when she has that she says the room is spinning and she gets real nauseated. Patient states she woke up today and noticed she felt off balance. She had a mild frontal and posterior headache. Denies any falls or head traumas. She is on no blood thinners. She had no LOC. She denies any trouble using her arms or legs. States when she walks she seems to drift her fall off to the right. She has almost fallen several times. Physical Examination: Older female no acute distress vital signs are stable. She is afebrile. She does not look septic or toxic. H EENT exam unremarkable. No signs of trauma. Pupils round reactive light. Extra motions are intact. No facial droop. Normal speech. Tongue midline. Neck nontender. No bruits appre ciated. Lungs clear to auscultation bilaterally. Heart regular rhythm no murmur. Rate about 60. Abdomen soft and nontender. Normal bowel sounds no peritoneal signs. Patient is moving all 4 extremities. They are neurovascularly intact. She has normal equal symmetrical family medicine chair strength bilaterally. Plantar flexion intact. Fingertip to nose within normal limits. Back exam unremarkable. Neurologically she is awake and alert with no focal motor deficits while lying in bed. While in bed her NIH score is 0. Getting the patient up and ambulating her she seems to drift off to the right walking and almost fell several times but we are able to catch her. Test Results: CT of the brain shows no acute abnormality as reviewed by me and read by the radiologist. EKG is a sinus bradycardia rate of 56. CBC unremarkable with a white count of 6 and hemoglobin 13. Electrolytes unremarkable. Gap of 1 creatinine 0.6. Emergency Department Course and Treatment: Repeat exam at 1931 unchanged. Due to the patient's inability to ambulate and concern for a possible underlying stroke she will be admitted for further evaluation. I discussed this with her and her family. They are comfortable with the plan. Treatment Plan: I spoke to the hospitalist about an admission to the PCU. Disposition: Admission Impression: Dizziness and off-balance with ataxia of uncertain etiology This note was generated with [employer] dictation software. It may contain incorrect words, spelling, and punctuation that were not noted in review of the chart prior to signing ED Disposition - Plan for ED Patient: Referrals: Paul Reynolds MD [Primary Care Provider] -
[2018-07-02 20:51] VITALS: BMI 27.9
[2018-07-02 21:05] VITALS: BP 150/84; BP 157/76; PULSE 61; RESP 14; TEMP 36.4; O2SAT 97
[2018-07-02 21:06] VITALS: BMI 28.0
--- NOTE | 2018-07-02 21:11 | NURSING ---
Pt unsure of when last pneumonia shot was.
--- NOTE | 2018-07-02 21:21 | NURSING ---
Numbness to left ankle. Not new, not worse today.
[2018-07-02 21:39] LABS: Magnesium 1.9 mg/dL (1.6-2.6); Thyroid Stim Hormone (TSH) 1.78 uIU/mL (0.358-3.74)
[2018-07-02] MEDS: 0.9% NaCl Peripheral Flush Adult/Peds IV (22:20)
[2018-07-02] MEDS: Atorvastatin Calcium 80 MG Tablet PO (22:20)
[2018-07-02] MEDS: 0.9% Normal Saline 1,000 ML 100 ML IV (22:21)
[2018-07-02 22:42] LABS: Hemoglobin A1c 5.6 % (4.2-6.3)
[2018-07-02 23:01] VITALS: PULSE 62
[2018-07-02 23:02] VITALS: PULSE 73
[2018-07-02] MEDS: Ipratropium/Albuterol Sulfate 3 ML AMPUL.NEB INHALATION (23:22)
[2018-07-02 23:23] VITALS: PULSE 66; RESP 18; O2SAT 97
[2018-07-03] VITALS (14 sets, daily range): BP systolic 118–148; BP diastolic 58–79; PULSE 70–90; RESP 16–18; TEMP 36.4–36.9; O2SAT 93–97; BMI 27.9
--- NOTE | 2018-07-03 05:55 | ECHOD_ITS ---
Reason For Study: TIA/CVA Procedure This was a 2D Doppler, Color Flow transthoracic echocardiogram. Exam performed portable in patient room. Left Ventricle Normal size and thickness. The estimated ejection fraction is 75 %. Stage 1 diastolic dysfunction. No regional wall motion abnormalities noted. Right Ventricle Normal size and thickness. Normal systolic function. Atria The left atrium is mildly enlarged. Normal right atrium. Normal atrial septum. Bubble contrast study negative for right to left interatrial shunt. Mitral Valve Mild focal mitral valve thickening. Trivial mitral valve insufficiency. Tricuspid Valve Normal tricuspid valve. Mild (1+) tricuspid valve insufficiency. Right ventricular systolic pressure estimated to be 55 mmHg. Moderate pulmonary hypertension. Aortic Valve Normal aortic valve. Trisinus/trileaflet aortic valve. Pulmonic Valve Normal pulmonic valve. Great Vessels Normal aortic root. Normal arch. Normal inferior vena cava. Inferior vena cava collapse with sniff. Pericardium/Pleural No pericardial effusion. Medication Performed a rapid injection of agitated mix of 9 cc saline and 1cc air to assess for atrial septal defect. MMode/2D Measurements & Calculations LVIDd: 4.0 cm IVSd: 1.0 cm LA dimension: 3.8 cm LVIDs: 2.2 cm LVPWd: 0.79 cm RVDd: 3.3 cm FS: 45.2 % LAV(MOD-bp): 50.7 ml LA A4 area: 19.0 cm2 RA A4 area: 14.7 cm2 LAV(MOD-bp) Indexed: 26.9 ml/m2 LAV(MOD-sp2): 44.0 ml LAV(MOD-sp4): 55.5 ml Time Measurements MV dec time: 0.24 sec Doppler Measurements & Calculations MV E max christiano: 124.0 cm/sec Lat Peak E' Christiano: 8.9 cm/sec Med Peak E' Christiano: 10.6 cm/sec MV A max christiano: 129.4 cm/sec E/E' lat: 13.9 E/E' med: 11.6 MV E/A: 0.96 MV V2 max: 152.4 cm/sec MV P1/2t max christiano: 134.4 cm/sec Ao V2 max: 197.0 cm/sec MV max P.3 mmHg MV P1/2t: 82.9 msec Ao max P.5 mmHg MV V2 mean: 92.4 cm/sec MV dec slope: 475.0 cm/sec2 Ao V2 mean: 117.7 cm/sec MV mean P.9 mmHg Ao mean P.5 mmHg MV V2 VTI: 38.5 cm MVA(P1/2t): 2.7 cm2 Ao V2 VTI: 35.1 cm LV V1 max: 174.9 cm/sec MR max christiano: 567.1 cm/sec PA V2 max: 110.4 cm/sec LV V1 max P.2 mmHg MR max P.7 mmHg LV V1 mean P.5 mmHg LV V1 mean: 108.0 cm/sec LV V1 VTI: 34.1 cm TR max christiano: 353.3 cm/sec TR max P.9 mmHg Interpretation Summary The estimated ejection fraction is 75 %. Stage 1 diastolic dysfunction. The left atrium is mildly enlarged. Bubble contrast study negative for right to left interatrial shunt. Trivial mitral valve insufficiency. Mild (1+) tricuspid valve insufficiency. Right ventricular systolic pressure estimated to be 55 mmHg. Moderate pulmonary hypertension. There is no comparison study available. Ordering Physician: Caroline Hutchison Referring Physician: Caroline Hutchison Performed By: Alessandro Bautista RCS
[2018-07-03 05:58] LABS: Absolute Lymphocyte Count 2.22 X10^3/ul (0.83-4.51); Basophil# 0.02 X10^3/uL; Basophil% 0.4 % (0-1); Eosinophil# 0.09 X10^3/uL; Eosinophils% 1.9 % (0-5); Hematocrit 39.2 % (37-47); Hemoglobin 12.9 g/dl (12.0-15.0); Lymphocyte # 2.22 X10^3/ul (4.0); Lymphocyte % 47.4 % (19-41); Mean Corp Hgb Conc 32.9 g/gl (32-36); Mean Corpuscular Hgb 28.2 pg (27.0-32.0); Mean Corpuscular Volume 85.6 fL (81-99); Mean Platelet Vol. 9.7 fl (6.2-12.0); Monocyte# 0.33 X10^3/uL; Monocyte% 7.1 % (0-10); Neutrophil # 2.02 X10^3/uL (2.7-7.7); Neutrophil % 43.2 % (47-70); Platelet Count 196 K/mm3 (150-450); RBC Distribution Width CV 12.9 % (11.6-14.6); RBC Distribution Width SD 39.9 fl (35.1-43.9); Red Blood Count 4.58 M/mm3 (4.2-5.4); White Blood Count 4.7 K/mm3 (4.4-11.0)
[2018-07-03 06:03] LABS: POSITIVE COUNT NO; POSITIVE DIFFERENTIAL NO; POSITIVE MORPHOLOGY NO
[2018-07-03 06:32] LABS: Anion Gap 5 (5-15); BUN 16 mg/dL (7-18); BUN/Creat Ratio 25.4 RATIO (10-20); Calcium,Total 8.2 mg/dL (8.5-10.1); Chloride 111 mmol/L (98-107); Cholesterol 143 mg/dL (200); Creatinine, Serum 0.63 mg/dL (0.55-1.02); EST Glomerular Filtration Rate 100 mL/min (>60); Est Glom Filt Rate - Afr Amer 121 mL/min (>60); Estimated Creatinine Clearance 51.11 ml/min; Glucose 94 mg/dL (74-106); High Density Lipoprotein 45 mg/dL; Potassium 4.1 mmol/L (3.5-5.1); Sodium Level 143 mmol/L (136-145); Triglycerides 118 mg/dL; Very Low Density Lipoprotein 24 mg/dL (5-40)
[2018-07-03] MEDS: Ipratropium/Albuterol Sulfate 3 ML AMPUL.NEB INHALATION ×3 (07:12→19:52)
[2018-07-03] MEDS: 0.9% Normal Saline 1,000 ML 100 ML IV (08:20)
[2018-07-03] MEDS: Aspirin 81 MG TAB.CHEW PO (08:21)
[2018-07-03] MEDS: Loratadine 10 MG Tablet PO (09:28)
[2018-07-03] MEDS: Enoxaparin 40 MG/0.4 ML Syringe SC (09:28)
[2018-07-03] MEDS: Pantoprazole Sodium 20 MG Tablet PO (09:28)
--- NOTE | 2018-07-03 09:30 | MRI_ITS ---
STUDY: MRA OF THE HEAD WITHOUT CONTRAST REASON FOR EXAM: Female, 68 years old. CVA, dizziness, off balance. TECHNIQUE: 3-D [id number] (TOF) imaging was performed with MIPs. The study was performed unenhanced. COMPARISON: None. FINDINGS: Normal bilateral petrous carotid arteries. Normal right cavernous carotid artery with a normal supraclinoid bifurcation. Normal left cavernous carotid artery with a normal supraclinoid bifurcation. 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 Normal right A1 segment of the anterior cerebral artery. Normal left A1 segment of the anterior cerebral artery. Normal intact anterior communicating artery (ACOM). Normal bilateral A2 segments of the anterior cerebral arteries. Normal right M1 and M2 segments of the middle cerebral arteries, with a normal M1 bifurcation. Normal left M1 and M2 segments of the middle cerebral arteries, with a normal M1 bifurcation. There is non-visualization of the right posterior communicating artery (PCOM). Normal left posterior communicating artery (PCOM). Normal bilateral vertebral arteries. Normal basilar artery with a normal basilar bifurcation. The visualized bilateral superior cerebellar (SCA) arteries are normal. Normal bilateral P1, P2 and visualized P3 segments of the posterior cerebral arteries. There is no major vessel occlusion or significant stenosis. MRI/MRA Head ONLY without Contrast IMPRESSION: 1. 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 Otherwise, negative study. Electronically Signed: Sasha Marinelli MD at 18:20 EDT Tel , Service support ,
--- NOTE | 2018-07-03 09:30 | MRI_ITS ---
STUDY: MRA NECK WITHOUT CONTRAST REASON FOR EXAM: Female, 68 years old. CVA. TECHNIQUE: Source images were obtained, MIPs were performed. The study was performed unenhanced. COMPARISON: None. FINDINGS: RIGHT CAROTID ARTERIES: Normal right common carotid artery (CCA). Normal right common carotid bulb. Normal origin of the right internal carotid (ICA) artery without a hemodynamically significant stenosis. Normal visualized cervical portion of the right internal carotid artery. Normal origin of the right external carotid artery (ECA). LEFT CAROTID ARTERIES: Normal left common carotid artery (CCA). Normal left common carotid bulb. Normal origin of the left internal carotid (ICA) artery without a hemodynamically significant stenosis. Normal visualized cervical portion of the left internal carotid artery. Normal origin of the left external carotid artery (ECA). VERTEBRAL ARTERIES: Normal antegrade flow within the bilateral vertebral artery without a hemodynamically significant stenosis. MRI/MRA Neck without Contrast IMPRESSION: Normal bilateral cervical carotid and vertebral arteries. Electronically Signed: Sasha Marinelli MD at 18:24 EDT Tel , Service support ,
--- NOTE | 2018-07-03 09:30 | MRI_ITS ---
STUDY: MRI BRAIN WITHOUT CONTRAST REASON FOR EXAM: Female, 68 years old. Dizziness TECHNIQUE: Standardized multiplanar fat and water weighted pulse sequences were obtained. COMPARISON: CT head 07/02/2018. FINDINGS: Normal size of the ventricles and extra-axial spaces for the patient's age. There are multiple white matter hyperintensities, distributed throughout the deep white matter tracts of the cerebral hemispheres, consistent with moderate chronic white matter ischemic changes. Normal bilateral basal ganglia. Normal thalami. There is no extra-axial fluid accumulation. Normal flow voids within the major intracranial circulation suggesting patency by spin echo criteria. Normal sella turcica, pituitary gland, infundibular stalk, optic chiasm and hypothalamus. Normal tectal plate and pineal gland. Normal midbrain, ruby and medulla. Normal cerebellum. Normal basal cisterns. Normal bilateral temporal bones. Normal bilateral internal auditory canals. No demonstrated orbital abnormality, within the constraints of a routine brain study. There is moderate left maxillary sinus chronic mucosal thickening. Normal calvarium and skull base. Normal visualized soft tissue structures. Normal visualized upper cervical spine. MRI/Brain without Contrast IMPRESSION: No acute intracranial abnormality. Chronic findings are described above. Electronically Signed: Genesis Conrad, at 14:27 EDT Tel , Service support ,
[2018-07-03 09:46] LABS: Erythrocyte Sedimentation Rate 3 mm/hr (0-30)
--- NOTE | 2018-07-03 10:50 | PCM.CONS.GEN ---
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 Per patient she had difficulty walking, for about 2 days, leaning to the right. Denies any vertigo. Per patient she has light headedness and also complaints of severe PARK,which at present in about 6 in intensity, frontal, occipital, generalized, with some mild photophobia, phonophobia, no nausea, some visual blurring, but denies any vision loss, jaw claudication or temporal tenderness. Denies any focal motor weakness, sensory loss, speech disturbances, no fever, denies any neck pain, denies any new onset low back pain, radicular symptoms, urinary incontinence. Per patient she lives alone, denies any frequent falls, had a fall about 3 days ago, was walking the dog and as dog turned she pivoted and fell, has left ankle swelling, seeing a podiatry for the same and is wearing a brace, does not use cane or walker to ambulate, and does drive. Past Medical History Past Medical History (Chronic Problems): Chronic Problems HTN (hypertension) (Chronic) HLD (hyperlipidemia) (Chronic) BMI greater than 30 (Chronic) Migraine (Chronic) GERD (gastroesophageal reflux disease) (Chronic) Asthma exacerbation (Chronic) Allergies adhesive tape Allergy (Verified 05/09/18 09:06) Rash propoxyphene HCl [From Darvon] Allergy (Verified 05/09/18 09:06) Rash sulfamethoxazole [From Bactrim] Allergy (Verified 05/09/18 09:06) Shortness of breath trimethoprim [From Bactrim] Allergy (Verified 05/09/18 09:06) Shortness of breath venom-honey bee [bee venom (honey bee)] Allergy (Verified 05/09/18 09:06) Anaphylaxis venom-wasp [wasp venom] Allergy (Verified 05/09/18 09:06) Anaphylaxis prednisone Adverse Reaction (Verified 05/09/18 09:06) Diarrhea anything that stings Allergy (Uncoded 07/02/18 21:11) Anaphylaxis banana peppers Allergy (Uncoded 07/02/18 21:11) Hives Home Medications: Ambulatory Orders Medication Instructions Recorded Epi Pen (for allergic rxn) 0.3 mg IM X1 05/04/13 Loratadine [Claritin] 10 mg PO DAILY 05/04/13 Sumatriptan Succinate [Imitrex] 50 mg PO PRN PRN 05/04/13 Albuterol Sulfate [Ventolin Hfa] 2 puff IH Q6H PRN PRN 12/26/15 Pantoprazole Sodium [Protonix] 20 mg PO DAILY 12/26/15 CycloSPORINE Ophthalmic [Restasis 1 drop EACH EYE DAILY 03/28/16 Ophthalmic] Fluticasone/Salmeterol [Advair 1 each IH DAILY 03/28/16 100-50 Diskus] Meclizine HCl 25 mg PO Q6H PRN 03/28/16 Atorvastatin Calcium [Lipitor] 20 mg PO DAILY 07/02/18 Fluticasone 0.05% [Flonase Nasal 2 spray NASAL DAILY 07/02/18 Rarden] Verapamil HCl [Verapamil ER] 240 mg PO DAILY 07/02/18 Surgical History: - - Cholecystectomy, hysterectomy, right mastoid tumor resection. 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 She denies any known history of heart disease, diabetes or cancer. Review of Systems Constitutional: Reports: - - complete ROS negative except as documented in HPI Patient Problems: Active and Suspected Problems CVA (cerebral vascular accident) (Acute) Headache (Acute) Balance problem (Acute) - Physical Exam General: Alert HEENT: Normocephalic Neck: Supple Lungs: Clear to auscultation Cardiovascular: Normal S1, Normal S2 Abdomen: Bowel Sounds Present Extremities: No cyanosis Neurological: - - consious, alert, AoAx3, CN 2-12 grossly intact, power 5/5 all 4 extremities, no sensory loss, no cerebellar signs, Reflexes + B/L B/S/T/K/A, gait deferred. Psych/Mental Status: Normal Affect Vital Signs Temp Pulse Resp BP Pulse Ox 98.0 F 82 16 145/79 H 96 07/03/18 09:00 07/03/18 09:00 07/03/18 09:00 07/03/18 09:00 07/03/18 09:00 Oxygen Delivery Method Room Air Weight: 78.6 kg Body Mass Index (BMI) 27.9 Intake and Output for Last 24 Hours 07/01/18 07/02/18 07/03/18 23:59 23:59 23:59 Intake Total 872 / 872 421 / 421 Output Total 0 / 0 Balance 872 / 872 421 / 421 Laboratory Tests Past 24 Hrs 07/02/18 07/02/18 07/02/18 17:30 17:30 17:30 WBC 5.0 RBC 4.93 Hgb 13.9 Hct 42.2 MCV 85.6 MCH 28.2 MCHC 32.9 RDW 13.0 RDW Differential 39.8 Plt Count 231 MPV 10.1 Immature Gran % (Auto) 0.000 Neut % (Auto) 41.3 L Lymph % (Auto) 46.6 H [place] % (Auto) 9.5 Eos % (Auto) 2.2 Baso % (Auto) 0.4 Absolute Neuts (auto) 2.1 Absolute Lymphs (auto) 2.35 Total Counted Not Reportable ESR Sodium 142 Potassium 3.4 L Chloride 110 H Carbon Dioxide 31.0 Anion Gap 1 L BUN 16 Creatinine 0.69 Estim Creat Clear Calc 51.11 Est GFR (MDRD) Af Amer 109 Est GFR (MDRD) Non-Af 90 BUN/Creatinine Ratio 23.2 H Glucose 89 Hemoglobin A1c Calcium 8.1 L Magnesium 1.9 Triglycerides Cholesterol LDL Cholesterol VLDL Cholesterol HDL Cholesterol TSH 1.78 07/02/18 07/03/18 07/03/18 17:30 05:40 05:40 WBC 4.7 RBC 4.58 Hgb 12.9 Hct 39.2 MCV 85.6 MCH 28.2 MCHC 32.9 RDW 12.9 RDW Differential 39.9 Plt Count 196 MPV 9.7 Immature Gran % (Auto) 0.000 Neut % (Auto) 43.2 L Lymph % (Auto) 47.4 H [place] % (Auto) 7.1 Eos % (Auto) 1.9 Baso % (Auto) 0.4 Absolute Neuts (auto) 2.0 Absolute Lymphs (auto) 2.22 Total Counted Not Reportable ESR Sodium 143 Potassium 4.1 Chloride 111 H Carbon Dioxide 27.0 Anion Gap 5 BUN 16 Creatinine 0.63 Estim Creat Clear Calc 51.11 Est GFR (MDRD) Af Amer 121 Est GFR (MDRD) Non-Af 100 BUN/Creatinine Ratio 25.4 H Glucose 94 Hemoglobin A1c 5.6 Calcium 8.2 L Magnesium Triglycerides 118 Cholesterol 143 LDL Cholesterol 74 VLDL Cholesterol 24 HDL Cholesterol 45 TSH 07/03/18 05:40 WBC RBC Hgb Hct MCV MCH MCHC RDW RDW Differential Plt Count MPV Immature Gran % (Auto) Neut % (Auto) Lymph % (Auto) [place] % (Auto) Eos % (Auto) Baso % (Auto) Absolute Neuts (auto) Absolute Lymphs (auto) Total Counted ESR 3 Sodium Potassium Chloride Carbon Dioxide Anion Gap BUN Creatinine Estim Creat Clear Calc Est GFR (MDRD) Af Amer Est GFR (MDRD) Non-Af BUN/Creatinine Ratio Glucose Hemoglobin A1c Calcium Magnesium Triglycerides Cholesterol LDL Cholesterol VLDL Cholesterol HDL Cholesterol TSH Assessment/Plan All Active Problems CVA (cerebral vascular accident) (Acute) Headache (Acute) Balance problem (Acute) The patient is a 68 year old F with PMH HTN, HLD, Migriane, Asthma, H/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 Per patient she had difficulty walking, for about 2 days, leaning to the right. Denies any vertigo. Per patient she has light headedness and also complaints of severe PARK,which at present in about 6 in intensity, frontal, occipital, generalized, with some mild photophobia, phonophobia, no nausea, some visual blurring, but denies any vision loss, jaw claudication or temporal tenderness. Denies any focal motor weakness, sensory loss, speech disturbances, no fever, denies any neck pain, denies any new onset low back pain, radicular symptoms, urinary incontinence. Per patient she lives alone, denies any frequent falls, had a fall about 3 days ago, was walking the dog and as dog turned she pivoted and fell, has left ankle swelling, seeing a podiatry for the same and is wearing a brace, does not use cane or walker to ambulate, and does drive. Per patient she does not take ASA at baseline Impression Headache-possible complicated migraine Plan -MRI brain images reviewed- no acute stroke, FLAIR shows possible chronic microvascular ischemic changes and nonspecific changes. Final read pending -MRA head/neck reviewed- no intracranial stenosis -Depakote 500 mg IV q 8 hrly for 24-48 hrs then stop -Decadron 4 mg IV q 6 hrly for 24-48 hrs, then stop, if no contraindication -Magnesium sulphate 1 g IV once -Toradol 15 mg IV q 6 hrly PRN for 24 hrs if no contraindication -ESR -Labs reviewed, check UA -Avoid Fioricet and narcotics -PT/OT -Vestibular therapy -Fall precautions -Follow up with Neurology in 4-6 weeks as outpatient -Please call with questions if any -Thank you for allowing us to participate in patient's care and management Code Visit Inpatient E&M: 88771 Init Hosp L3
--- NOTE | 2018-07-03 12:32 | PCM.PROGNOTE ---
<Perry Costa - Last Filed: 07/03/18 12:32> Patient Problems: Active and Suspected Problems CVA (cerebral vascular accident) (Acute) Headache (Acute) Balance problem (Acute) Subjective: No swallowing difficulty, no slurred speech, no focal weakness. Headache is improved - posterior PARK resolved, continues to have anterior headache. Intermittent visual blurriness. Mild photophobia. No nausea. No numbness/tingling. - Physical Exam General: Alert, Oriented x3, Cooperative HEENT: Atraumatic, PERRLA, EOMI, Normocephalic Neck: Supple, No JVD, Negative Carotid Bruits Lungs: Clear to auscultation, Normal air movement Cardiovascular: Regular rate, No murmurs Abdomen: Bowel Sounds Present, Soft, Non Tender Extremities: No edema, Capillary Refill Less than 3 Seconds Skin: No rashes, No breakdown Musculoskeletal: No Tenderness to Palpation of Joints or Extremities Neurological: Cranial nerves II-XII grossly intact Psych/Mental Status: Normal Affect, Appropriate, Alert and oriented to time, place, person, mood and affect Vital Signs Temp Pulse Resp BP Pulse Ox 98.0 F 82 16 145/79 H 96 07/03/18 09:00 07/03/18 09:00 07/03/18 09:00 07/03/18 09:00 07/03/18 09:00 Oxygen Delivery Method Room Air Weight: 173 lb 4.533 oz Body Mass Index (BMI) 27.9 Intake and Output for Last 24 Hours 07/01/18 07/02/18 07/03/18 23:59 23:59 23:59 Intake Total 872 / 872 421 / 421 Output Total 0 / 0 Balance 872 / 872 421 / 421 Laboratory Tests Past 24 Hrs 07/02/18 07/02/18 07/02/18 17:30 17:30 17:30 WBC 5.0 RBC 4.93 Hgb 13.9 Hct 42.2 MCV 85.6 MCH 28.2 MCHC 32.9 RDW 13.0 RDW Differential 39.8 Plt Count 231 MPV 10.1 Immature Gran % (Auto) 0.000 Neut % (Auto) 41.3 L Lymph % (Auto) 46.6 H Hughes % (Auto) 9.5 Eos % (Auto) 2.2 Baso % (Auto) 0.4 Absolute Neuts (auto) 2.1 Absolute Lymphs (auto) 2.35 Total Counted Not Reportable ESR Sodium 142 Potassium 3.4 L Chloride 110 H Carbon Dioxide 31.0 Anion Gap 1 L BUN 16 Creatinine 0.69 Estim Creat Clear Calc 51.11 Est GFR (MDRD) Af Amer 109 Est GFR (MDRD) Non-Af 90 BUN/Creatinine Ratio 23.2 H Glucose 89 Hemoglobin A1c Calcium 8.1 L Magnesium 1.9 Triglycerides Cholesterol LDL Cholesterol VLDL Cholesterol HDL Cholesterol TSH 1.78 07/02/18 07/03/18 07/03/18 17:30 05:40 05:40 WBC 4.7 RBC 4.58 Hgb 12.9 Hct 39.2 MCV 85.6 MCH 28.2 MCHC 32.9 RDW 12.9 RDW Differential 39.9 Plt Count 196 MPV 9.7 Immature Gran % (Auto) 0.000 Neut % (Auto) 43.2 L Lymph % (Auto) 47.4 H Hughes % (Auto) 7.1 Eos % (Auto) 1.9 Baso % (Auto) 0.4 Absolute Neuts (auto) 2.0 Absolute Lymphs (auto) 2.22 Total Counted Not Reportable ESR Sodium 143 Potassium 4.1 Chloride 111 H Carbon Dioxide 27.0 Anion Gap 5 BUN 16 Creatinine 0.63 Estim Creat Clear Calc 51.11 Est GFR (MDRD) Af Amer 121 Est GFR (MDRD) Non-Af 100 BUN/Creatinine Ratio 25.4 H Glucose 94 Hemoglobin A1c 5.6 Calcium 8.2 L Magnesium Triglycerides 118 Cholesterol 143 LDL Cholesterol 74 VLDL Cholesterol 24 HDL Cholesterol 45 TSH 07/03/18 05:40 WBC RBC Hgb Hct MCV MCH MCHC RDW RDW Differential Plt Count MPV Immature Gran % (Auto) Neut % (Auto) Lymph % (Auto) Hughes % (Auto) Eos % (Auto) Baso % (Auto) Absolute Neuts (auto) Absolute Lymphs (auto) Total Counted ESR 3 Sodium Potassium Chloride Carbon Dioxide Anion Gap BUN Creatinine Estim Creat Clear Calc Est GFR (MDRD) Af Amer Est GFR (MDRD) Non-Af BUN/Creatinine Ratio Glucose Hemoglobin A1c Calcium Magnesium Triglycerides Cholesterol LDL Cholesterol VLDL Cholesterol HDL Cholesterol TSH Medical Necessity - Tobacco Use Smoking Status: Never smoker Tobacco Use: Secondhand Assessment/Plan All Active Problems CVA (cerebral vascular accident) (Acute) Headache (Acute) Balance problem (Acute) 1. Dizziness, ataxia, vision change - Neuro following. CT brain neg. MRI/MRA pending. If no stroke possibly migraine - if negative start depakote/decadron. TSH normal. FLP on chart. Sed rate neg. On asa/statin. PTOT evals. 2. Low K - replete 3. HTN - permissive 4. HLD - statin 5. Asthma - no exacerbation, prn aerosols. 6. 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 8. Hx Mastoid tumor s/p resection 9. GERD - ppi DVT ppx: Lovenox DC planning: pending results of MRI This patient was seen by Perry Costa PA-C under the supervision of Dr. Doran <Codey Doran - Last Filed: 07/03/18 13:30> - Physical Exam Vital Signs Temp Pulse Resp BP Pulse Ox 98.0 F 82 16 145/79 H 96 07/03/18 09:00 07/03/18 09:00 07/03/18 09:00 07/03/18 09:00 07/03/18 09:00 Oxygen Delivery Method Room Air Weight: 78.6 kg Body Mass Index (BMI) 27.9 Intake and Output for Last 24 Hours 07/01/18 07/02/18 07/03/18 23:59 23:59 23:59 Intake Total 872 / 872 1104 / 1104 Output Total 0 / 0 Balance 872 / 872 1104 / 1104 Laboratory Tests Past 24 Hrs 07/02/18 07/02/18 07/02/18 17:30 17:30 17:30 WBC 5.0 RBC 4.93 Hgb 13.9 Hct 42.2 MCV 85.6 MCH 28.2 MCHC 32.9 RDW 13.0 RDW Differential 39.8 Plt Count 231 MPV 10.1 Immature Gran % (Auto) 0.000 Neut % (Auto) 41.3 L Lymph % (Auto) 46.6 H Hughes % (Auto) 9.5 Eos % (Auto) 2.2 Baso % (Auto) 0.4 Absolute Neuts (auto) 2.1 Absolute Lymphs (auto) 2.35 Total Counted Not Reportable ESR Sodium 142 Potassium 3.4 L Chloride 110 H Carbon Dioxide 31.0 Anion Gap 1 L BUN 16 Creatinine 0.69 Estim Creat Clear Calc 51.11 Est GFR (MDRD) Af Amer 109 Est GFR (MDRD) Non-Af 90 BUN/Creatinine Ratio 23.2 H Glucose 89 Hemoglobin A1c Calcium 8.1 L Magnesium 1.9 Triglycerides Cholesterol LDL Cholesterol VLDL Cholesterol HDL Cholesterol TSH 1.78 07/02/18 07/03/18 07/03/18 17:30 05:40 05:40 WBC 4.7 RBC 4.58 Hgb 12.9 Hct 39.2 MCV 85.6 MCH 28.2 MCHC 32.9 RDW 12.9 RDW Differential 39.9 Plt Count 196 MPV 9.7 Immature Gran % (Auto) 0.000 Neut % (Auto) 43.2 L Lymph % (Auto) 47.4 H Hughes % (Auto) 7.1 Eos % (Auto) 1.9 Baso % (Auto) 0.4 Absolute Neuts (auto) 2.0 Absolute Lymphs (auto) 2.22 Total Counted Not Reportable ESR Sodium 143 Potassium 4.1 Chloride 111 H Carbon Dioxide 27.0 Anion Gap 5 BUN 16 Creatinine 0.63 Estim Creat Clear Calc 51.11 Est GFR (MDRD) Af Amer 121 Est GFR (MDRD) Non-Af 100 BUN/Creatinine Ratio 25.4 H Glucose 94 Hemoglobin A1c 5.6 Calcium 8.2 L Magnesium Triglycerides 118 Cholesterol 143 LDL Cholesterol 74 VLDL Cholesterol 24 HDL Cholesterol 45 TSH 07/03/18 05:40 WBC RBC Hgb Hct MCV MCH MCHC RDW RDW Differential Plt Count MPV Immature Gran % (Auto) Neut % (Auto) Lymph % (Auto) Hughes % (Auto) Eos % (Auto) Baso % (Auto) Absolute Neuts (auto) Absolute Lymphs (auto) Total Counted ESR 3 Sodium Potassium Chloride Carbon Dioxide Anion Gap BUN Creatinine Estim Creat Clear Calc Est GFR (MDRD) Af Amer Est GFR (MDRD) Non-Af BUN/Creatinine Ratio Glucose Hemoglobin A1c Calcium Magnesium Triglycerides Cholesterol LDL Cholesterol VLDL Cholesterol HDL Cholesterol TSH Assessment/Plan This patient was seen in conjunction with Perry Costa PA-C . I have independently interviewed and examined the patient and reviewed pertinent historical, laboratory, and other data. Please refer to Perry Costa PA-C note for details of this patient's presentation, findings, and recommendations. I have reviewed Perry Costa PA-C note and concur with documented findings. In brief, patient is a 68-year-old lady who presented with dizziness associated with headaches Physical Examination: GENERAL: cooperative HEENT: Atraumatic EYES; Anicteric, NECK; supple, normal thyroid, . RESPIRATORY: Diminished to auscultation bilaterally, CARDIOVASCULAR: Regular S1 S2, NEURO: Awake; no lateralizing signs. SKIN: No Rash PSYCH; Normal affect Assessment: 1. Acute vertigo 2. Suspected acute complex migraine 3. Essential hypertension 4. Hypokalemia 5. Dyslipidemia 6. Mild intermittent asthma 7. Mastoid tumor status post resection 8. GERD 9. DVT prophylaxis [place] Lovenox Recommendations: 1. I have discussed the results of my overview and impressions with the patient 2. Options for management were reviewed Code Visit OBSV E&M: 34512 Subsequent observation care L3
--- NOTE | 2018-07-03 15:00 | CASEMGMT ---
This RN SALO to room with HINOJOSA form at this time, explanation done-pt voiced understanding, and consent signed at this time. Original to chart and copy to pt at this time. Pt voices no further questions/concerns/needs at this time. SStaten CHAPARRITA CM
[2018-07-03] MEDS: Atorvastatin Calcium 80 MG Tablet PO (21:23)
[2018-07-04 00:06] LABS: Bacteria 0 SEEN /hpf (None Seen); Mucous, Urine 0 SEEN /hpf (<or=2+); Red Blood Cells-Urine 0 SEEN /hpf (0-5); White Blood Cells 0 SEEN /hpf (0-5)
[2018-07-04 00:13] LABS: Color, Urine Yellow (Yellow); Glucose, Dipstick Normal (Normal); Ketone-Dipstick 15 mg/dl (Negative); Leukocyte Esterase-Dipstick Negative /ul (Negative); Nitrite-Dipstick Negative (Negative); Occult Blood-Urine Negative /ul (Negative); Protein-Dipstick Negative (Negative); Specific Gravity, Urine 1.015 (1.002-1.030); Urine Bilirubin Dipstick Negative (Negative); Urine Clarity Clear (Clear); Urine Urobilinogen Normal (Normal)
[2018-07-04 00:41] LABS: Squamous Epithelial Cells - UA 5-10 SEEN /hpf (5-10)
[2018-07-04] MEDS: 0.9% Normal Saline 1,000 ML 100 ML IV (01:30)
[2018-07-04 03:15] VITALS: PULSE 75
[2018-07-04 03:30] VITALS: BP 142/76; PULSE 75; RESP 18; TEMP 36.3; O2SAT 96
[2018-07-04 06:48] VITALS: PULSE 65
[2018-07-04] MEDS: Ipratropium/Albuterol Sulfate 3 ML AMPUL.NEB INHALATION (07:15)
[2018-07-04 07:16] VITALS: PULSE 76; RESP 16; O2SAT 95
[2018-07-04] MEDS: Enoxaparin 40 MG/0.4 ML Syringe SC (08:03)
[2018-07-04] MEDS: Loratadine 10 MG Tablet PO (08:03)
[2018-07-04] MEDS: Aspirin 81 MG TAB.CHEW PO (08:03)
[2018-07-04] MEDS: Pantoprazole Sodium 20 MG Tablet PO (08:05)
[2018-07-04 09:30] VITALS: BP 143/64; PULSE 88; RESP 18; TEMP 36.9; O2SAT 93
--- NOTE | 2018-07-04 10:58 | DCINST_ITS ---
- Discharge Diagnoses Current Active Problems: Current Active and Chronic Problems HTN (hypertension) (Chronic) HLD (hyperlipidemia) (Chronic) Atypical migraine You will use the following diet at home:: Cardiac Discharge Activity: Return to Normal Activity Call your doctor if you observe: Shortness of breath, Dizziness, Fainting spells, Chest pain Allergies/Adverse Reactions: Allergies adhesive tape Allergy (Verified 05/09/18 09:06) Rash propoxyphene HCl [From Darvon] Allergy (Verified 05/09/18 09:06) Rash sulfamethoxazole [From Bactrim] Allergy (Verified 05/09/18 09:06) Shortness of breath trimethoprim [From Bactrim] Allergy (Verified 05/09/18 09:06) Shortness of breath venom-honey bee [bee venom (honey bee)] Allergy (Verified 05/09/18 09:06) Anaphylaxis venom-wasp [wasp venom] Allergy (Verified 05/09/18 09:06) Anaphylaxis prednisone Adverse Reaction (Verified 05/09/18 09:06) Diarrhea anything that stings Allergy (Uncoded 07/02/18 21:11) Anaphylaxis banana peppers Allergy (Uncoded 07/02/18 21:11) Hives Medications to take at Discharge Epi Pen (for allergic rxn) 0.3 mg IM X1 05/04/13 Loratadine [Claritin] 10 mg PO DAILY 05/04/13 Sumatriptan Succinate [Imitrex] 50 mg PO PRN PRN 05/04/13 Albuterol Sulfate [Ventolin Hfa] 2 puff IH Q6H PRN PRN 12/26/15 Pantoprazole Sodium [Protonix] 20 mg PO DAILY 12/26/15 CycloSPORINE Ophthalmic [Restasis Ophthalmic] 1 drop EACH EYE DAILY 03/28/16 Fluticasone/Salmeterol [Advair 100-50 Diskus] 1 each IH DAILY 03/28/16 Meclizine HCl 25 mg PO Q6H PRN 03/28/16 Atorvastatin Calcium [Lipitor] 20 mg PO DAILY 07/02/18 Fluticasone 0.05% [Flonase Nasal [place]] 2 spray NASAL DAILY 07/02/18 Verapamil HCl [Verapamil ER] 240 mg PO DAILY 07/02/18 Primary Care Physician: Paul Reynolds MD [Primary Care Provider] - Please follow up with your Primary Care Physician in: 1 Week Test Results: Test results from this visit will be discussed in further detail at your follow- up appointment, if applicable. Please Follow Up With: Charbel Birmingham MD When: 4-6 Weeks Proposed Discharge Date: 07/04/18
--- NOTE | 2018-07-04 10:59 | PCM.DC.SUM ---
<Kristine Banegas - Last Filed: 07/04/18 11:10> Discharge Date and Diagnosis Date of Admission: 07/02/18 Date of Discharge: 07/04/18 - Primary Discharge Diagnosis Active and Suspected Problems 1. Suspected acute complex migraine, CVA ruled out 2. Chronic intermittent vertigo 3. Hypokalemia 4. Hypertension 5. Hyperlipidemia 6. Mild intermittent asthma 7. Xerostomia 8. History of mastoid tumor status post resection 9. GERD 10. Obesity - Secondary Discharge Diagnosis Chronic Problems HTN (hypertension) (Chronic) HLD (hyperlipidemia) (Chronic) BMI greater than 30 (Chronic) Migraine (Chronic) GERD (gastroesophageal reflux disease) (Chronic) Asthma exacerbation (Chronic) Hospital Course and Treatment Imaging Results: Diagnostic Data Brain CT 07/02/18 17:10 IMPRESSION: No acute intracranial abnormality. Left maxillary sinus disease. Electronically Signed: Paul Gatica, at 19:16 EDT Tel , Service support , Brain MRI 07/03/18 09:30 IMPRESSION: No acute intracranial abnormality. Chronic findings are described above. Electronically Signed: Genesis Conrad, at 14:27 EDT Tel , Service support , Dr. Birmingham- Neurology Operations: None Procedures: 2-D Echocardiogram Summary of Care Provided: The patient is a 68 year old F admitted 07/02/2017 due to dizziness. 1. Suspected acute complex migraine, CVA ruled out-patient has a history of migraines although reports her last migraine was 5 or 6 years ago. MRI of brain with no acute findings. MRA of head and neck reviewed by neurology, no intracranial stenosis. Patient received IV Depakote and IV magnesium sulfate with improvement in headache. ESR within normal limits. Echocardiogram with EF 75%, stage I diastolic dysfunction, mild tricuspid valve insufficiency, RVSP estimated to be 55 mmHg. Patient chronically on as needed Imitrex with onset of migraine symptoms. Follow-up with primary care physician in 1 week. Follow-up with neurology in 4 to 6 weeks. 2. Chronic intermittent vertigo-continue home as needed meclizine regimen. Denies current vertigo symptoms. Recommend follow-up with ENT. 3. Hypokalemia-resolved, replace per protocol. 4. Hypertension-stable, continue home verapamil regimen. 5. Hyperlipidemia-continue statin. 6. Mild intermittent asthma-no acute exacerbation. 7. Xerostomia-continue Restasis regimen. 8. History of mastoid tumor status post resection 9. GERD-continue PPI. 10. Obesity-encouraged diet lifestyle modifications. General: Alert, Oriented x3, Cooperative HEENT: Atraumatic, PERRLA, EOMI, Normocephalic Neck: Supple, No JVD, Negative Carotid Bruits Lungs: Clear to auscultation, Normal air movement Cardiovascular: Regular rate, regular rhythm, no murmurs Abdomen: Bowel Sounds Present, Soft, Non Tender Extremities: No edema, Capillary Refill Less than 3 Seconds Skin: No rashes, No breakdown Musculoskeletal: No Tenderness to Palpation of Joints or Extremities Neurological: Cranial nerves II-XII grossly intact Psych/Mental Status: Normal Affect, Appropriate Patient seen and examined prior to discharge. Physical assessment as noted above. Patient is stable for discharge with follow up recommendations as noted above. This patient was seen by MADELINE Sanabria under the supervision of Dr. Doran. - Physical Exam Vital Signs Temp Pulse Resp BP Pulse Ox 98.4 F 88 18 143/64 H 93 07/04/18 09:30 07/04/18 09:30 07/04/18 09:30 07/04/18 09:30 07/04/18 09:30 Oxygen Delivery Method Room Air Weight: 173 lb 4.533 oz Body Mass Index (BMI) 27.9 Intake and Output for Last 24 Hours 07/02/18 07/03/18 07/04/18 23:59 23:59 23:59 Intake Total 872 / 872 1553 / 1553 1376 / 1376 Output Total 0 / 0 1750 / 1750 Balance 872 / 872 1553 / 1553 -374 / -374 Laboratory Tests Past 24 Hrs 07/03/18 21:24 Urine Color Yellow Urine Clarity Clear Urine pH 7.0 Ur Specific [place] 1.015 Urine Protein Negative Urine Glucose (UA) Normal Urine Ketones 15 H Urine Occult Blood Negative Urine Nitrite Negative Urine Bilirubin Negative Urine Urobilinogen Normal Ur Leukocyte Esterase Negative Urine RBC 0 SEEN Urine WBC 0 SEEN Ur Squamous Epith Cells 5-10 SEEN Urine Bacteria 0 SEEN Urine Mucus 0 SEEN Discharge Diet: Low fat/ Low Cholesterol Discharge Activity: Return to Normal Activity Call your doctor if you observe: Shortness of breath, Dizziness, Fainting spells, Chest pain Home Medications: Medications to take at Discharge Epi Pen (for allergic rxn) 0.3 mg IM X1 05/04/13 Loratadine [Claritin] 10 mg PO DAILY 05/04/13 Sumatriptan Succinate [Imitrex] 50 mg PO PRN PRN 05/04/13 Albuterol Sulfate [Ventolin Hfa] 2 puff IH Q6H PRN PRN 12/26/15 Pantoprazole Sodium [Protonix] 20 mg PO DAILY 12/26/15 CycloSPORINE Ophthalmic [Restasis Ophthalmic] 1 drop EACH EYE DAILY 03/28/16 Fluticasone/Salmeterol [Advair 100-50 Diskus] 1 each IH DAILY 03/28/16 Meclizine HCl 25 mg PO Q6H PRN 03/28/16 Atorvastatin Calcium [Lipitor] 20 mg PO DAILY 07/02/18 Fluticasone 0.05% [Flonase Nasal [place]] 2 spray NASAL DAILY 07/02/18 Verapamil HCl [Verapamil ER] 240 mg PO DAILY 07/02/18 Primary Care Physician: Paul Reynolds MD [Primary Care Provider] - Please follow up with your Primary Care Physician in: 1 Week Please Follow Up With: Charbel Birmingham MD When: 4-6 Weeks Disposition: Home Minutes spent on discharge:: 35 Patient Condition:: Stable Medical Necessity - Tobacco Use Smoking Status: Never smoker Tobacco Use: Secondhand Meaningful Use Info Meaningful Use Diagnoses (Choose all that apply): None applicable <Codey Doran - Last Filed: 07/04/18 13:59> Discharge Date and Diagnosis - Secondary Discharge Diagnosis Chronic Problems HTN (hypertension) (Chronic) HLD (hyperlipidemia) (Chronic) BMI greater than 30 (Chronic) Migraine (Chronic) GERD (gastroesophageal reflux disease) (Chronic) Asthma exacerbation (Chronic) Hospital Course and Treatment Summary of Care Provided: This patient was seen in conjunction with MADELINE Sanabria . I have independently interviewed and examined the patient and reviewed pertinent historical, laboratory, and other data. Please refer to MADELINE Sanabria note for details of this patient's presentation, findings, and recommendations. I have reviewed MADELINE Sanabria note and concur with documented findings. In brief, patient is a 68-year-old lady who presented with dizziness associated with headaches Assessment: 1. Acute vertigo 2. Suspected acute complex migraine 3. Essential hypertension 4. Hypokalemia 5. Dyslipidemia 6. Mild intermittent asthma 7. Mastoid tumor status post resection 8. GERD 9. DVT prophylaxis [facility] course: As documented above - Physical Exam Vital Signs Temp Pulse Resp BP Pulse Ox 98.4 F 88 18 143/64 H 93 07/04/18 09:30 07/04/18 09:30 07/04/18 09:30 07/04/18 09:30 07/04/18 09:30 Oxygen Delivery Method Room Air Weight: 78.6 kg Body Mass Index (BMI) 27.9 Intake and Output for Last 24 Hours 07/02/18 07/03/18 07/04/18 23:59 23:59 23:59 Intake Total 872 / 872 1553 / 1553 1376 / 1376 Output Total 0 / 0 1750 / 1750 Balance 872 / 872 1553 / 1553 -374 / -374 Laboratory Tests Past 24 Hrs 07/03/18 21:24 Urine Color Yellow Urine Clarity Clear Urine pH 7.0 Ur Specific [place] 1.015 Urine Protein Negative Urine Glucose (UA) Normal Urine Ketones 15 H Urine Occult Blood Negative Urine Nitrite Negative Urine Bilirubin Negative Urine Urobilinogen Normal Ur Leukocyte Esterase Negative Urine RBC 0 SEEN Urine WBC 0 SEEN Ur Squamous Epith Cells 5-10 SEEN Urine Bacteria 0 SEEN Urine Mucus 0 SEEN Code Visit OBSV E&M: 82072 Observation care discharge
--- NOTE | 2018-07-04 11:09 | DS.PCM_ITS ---
<Kristine Banegas - Last Filed: 07/04/18 11:10> Discharge Date and Diagnosis Date of Admission: 07/02/18 Date of Discharge: 07/04/18 - Primary Discharge Diagnosis Active and Suspected Problems 1. Suspected acute complex migraine, CVA ruled out 2. Chronic intermittent vertigo 3. Hypokalemia 4. Hypertension 5. Hyperlipidemia 6. Mild intermittent asthma 7. Xerostomia 8. History of mastoid tumor status post resection 9. GERD 10. Obesity - Secondary Discharge Diagnosis Chronic Problems HTN (hypertension) (Chronic) HLD (hyperlipidemia) (Chronic) BMI greater than 30 (Chronic) Migraine (Chronic) GERD (gastroesophageal reflux disease) (Chronic) Asthma exacerbation (Chronic) Hospital Course and Treatment Imaging Results: Diagnostic Data Brain CT 07/02/18 17:10 IMPRESSION: No acute intracranial abnormality. Left maxillary sinus disease. Electronically Signed: Paul Gaitca, at 19:16 EDT Tel , Service support , Brain MRI 07/03/18 09:30 IMPRESSION: No acute intracranial abnormality. Chronic findings are described above. Electronically Signed: Genesis Conrad, at 14:27 EDT Tel , Service support , Dr. Birmingham- Neurology Operations: None Procedures: 2-D Echocardiogram Summary of Care Provided: The patient is a 68 year old F admitted 07/02/2017 due to dizziness. 1. Suspected acute complex migraine, CVA ruled out-patient has a history of migraines although reports her last migraine was 5 or 6 years ago. MRI of brain with no acute findings. MRA of head and neck reviewed by neurology, no i ntracranial stenosis. Patient received IV Depakote and IV magnesium sulfate with improvement in headache. ESR within normal limits. Echocardiogram with EF 75%, stage I diastolic dysfunction, mild tricuspid valve insufficiency, RVSP estimated to be 55 mmHg. Patient chronically on as needed Imitrex with onset of migraine symptoms. Follow-up with primary care physician in 1 week. Follow-up with neurology in 4 to 6 weeks. 2. Chronic intermittent vertigo-continue home as needed meclizine regimen. Denies current vertigo symptoms. Recommend follow-up with ENT. 3. Hypokalemia-resolved, replace per protocol. 4. Hypertension-stable, continue home verapamil regimen. 5. Hyperlipidemia-continue statin. 6. Mild intermittent asthma-no acute exacerbation. 7. Xerostomia-continue Restasis regimen. 8. History of mastoid tumor status post resection 9. GERD-continue PPI. 10. Obesity-encouraged diet lifestyle modifications. General: Alert, Oriented x3, Cooperative HEENT: Atraumatic, PERRLA, EOMI, Normocephalic Neck: Supple, No JVD, Negative Carotid Bruits Lungs: Clear to auscultation, Normal air movement Cardiovascular: Regular rate, regular rhythm, no murmurs Abdomen: Bowel Sounds Present, Soft, Non Tender Extremities: No edema, Capillary Refill Less than 3 Seconds Skin: No rashes, No breakdown Musculoskeletal: No Tenderness to Palpation of Joints or Extremities Neurological: Cranial nerves II-XII grossly intact Psych/Mental Status: Normal Affect, Appropriate Patient seen and examined prior to discharge. Physical assessment as noted above. Patient is stable for discharge with follow up recommendations as noted above. This patient was seen by MADELINE Sanabria under the supervision of Dr. Doran. - Physical Exam Vital Signs Temp Pulse Resp BP Pulse Ox 98.4 F 88 18 143/64 H 93 07/04/18 09:30 07/04/18 09:30 07/04/18 09:30 07/04/18 09:30 07/04/18 09:30 Oxygen Delivery Method Room Air Weight: 173 lb 4.533 oz Body Mass Index (BMI) 27.9 Intake and Output for Last 24 Hours 07/02/18 07/03/18 07/04/18 23:59 23:59 23:59 Intake Total 872 / 872 1553 / 1553 1376 / 1376 Output Total 0 / 0 1750 / 1750 Balance 872 / 872 1553 / 1553 -374 / -374 Laboratory Tests Past 24 Hrs 07/03/18 21:24 Urine Color Yellow Urine Clarity Clear Urine pH 7.0 Ur Specific Wiggins 1.015 Urine Protein Negative Urine Glucose (UA) Normal Urine Ketones 15 H Urine Occult Blood Negative Urine Nitrite Negative Urine Bilirubin Negative Urine Urobilinogen Normal Ur Leukocyte Esterase Negative Urine RBC 0 SEEN Urine WBC 0 SEEN Ur Squamous Epith Cells 5-10 SEEN Urine Bacteria 0 SEEN Urine Mucus 0 SEEN Discharge Diet: Low fat/ Low Cholesterol Discharge Activity: Return to Normal Activity Call your doctor if you observe: Shortness of breath, Dizziness, Fainting spells, Chest pain Home Medications: Medications to take at Discharge Epi Pen (for allergic rxn) 0.3 mg IM X1 05/04/13 Loratadine [Claritin] 10 mg PO DAILY 05/04/13 Sumatriptan Succinate [Imitrex] 50 mg PO PRN PRN 05/04/13 Albuterol Sulfate [Ventolin Hfa] 2 puff IH Q6H PRN PRN 12/26/15 Pantoprazole Sodium [Protonix] 20 mg PO DAILY 12/26/15 CycloSPORINE Ophthalmic [Restasis Ophthalmic] 1 drop EACH EYE DAILY 03/28/16 Fluticasone/Salmeterol [Advair 100-50 Diskus] 1 each IH DAILY 03/28/16 Meclizine HCl 25 mg PO Q6H PRN 03/28/16 Atorvastatin Calcium [Lipitor] 20 mg PO DAILY 07/02/18 Fluticasone 0.05% [Flonase Nasal [place]] 2 spray NASAL DAILY 07/02/18 Verapamil HCl [Verapamil ER] 240 mg PO DAILY 07/02/18 Primary Care Physician: Paul Reynolds MD [Primary Care Provider] - Please follow up with your Primary Care Physician in: 1 Week Please Follow Up With: Charbel Birmingham MD When: 4-6 Weeks Disposition: Home Minutes spent on discharge:: 35 Patient Condition:: Stable Medical Necessity - Tobacco Use Smoking Status: Never smoker Tobacco Use: Secondhand Meaningful Use Info Meaningful Use Diagnoses (Choose all that apply): None applicable <Codey Doran - Last Filed: 07/04/18 13:59> Discharge Date and Diagnosis - Secondary Discharge Diagnosis Chronic Problems HTN (hypertension) (Chronic) HLD (hyperlipidemia) (Chronic) BMI greater than 30 (Chronic) Migraine (Chronic) GERD (gastroesophageal reflux disease) (Chronic) Asthma exacerbation (Chronic) Hospital Course and Treatment Summary of Care Provided: This patient was seen in conjunction with MADELINE Sanabria . I have independently interviewed and examined the patient and reviewed pertinent historical, laboratory, and other data. Please refer to MADELINE Sanabria note for details of this patient's presentation, findings, and recommendations. I have reviewed MADELINE Sanabria note and concur with documented findings. In brief, patient is a 68-year-old lady who presented with dizziness associated with headaches Assessment: 1. Acute vertigo 2. Suspected acute complex migraine 3. Essential hypertension 4. Hypokalemia 5. Dyslipidemia 6. Mild intermittent asthma 7. Mastoid tumor status post resection 8. GERD 9. DVT prophylaxis [facility] Hospital course: As documented above - Physical Exam Vital Signs Temp Pulse Resp BP Pulse Ox 98.4 F 88 18 143/64 H 93 07/04/18 09:30 07/04/18 09:30 07/04/18 09:30 07/04/18 09:30 07/04/18 09:30 Oxygen Delivery Method Room Air Weight: 78.6 kg Body Mass Index (BMI) 27.9 Intake and Output for Last 24 Hours 07/02/18 07/03/18 07/04/18 23:59 23:59 23:59 Intake Total 872 / 872 1553 / 1553 1376 / 1376 Output Total 0 / 0 1750 / 1750 Balance 872 / 872 1553 / 1553 -374 / -374 Laboratory Tests Past 24 Hrs 07/03/18 21:24 Urine Color Yellow Urine Clarity Clear Urine pH 7.0 Ur Specific [place]ins 1.015 Urine Protein Negative Urine Glucose (UA) Normal Urine Ketones 15 H Urine Occult Blood Negative Urine Nitrite Negative Urine Bilirubin Negative Urine Urobilinogen Normal Ur Leukocyte Esterase Negative Urine RBC 0 SEEN Urine WBC 0 SEEN Ur Squamous Epith Cells 5-10 SEEN Urine Bacteria 0 SEEN Urine Mucus 0 SEEN Code Visit OBSV E&M: 11602 Observation care discharge
== END 2018-07-04 10:50 | disposition home or self-care (01) ==
LOC: ED 20:02 → PCU 20:11
PROVIDERS: Psychiatry & Neurology Neurology; Admitting Provider Family Medicine; Emergency Provider Emergency Medicine; Family Provider Family Medicine; PCP Family Medicine; Referring Provider Family Medicine; Visit Provider Internal Medicine
DX: R42 Dizziness and giddiness (principal); E78.5 Hyperlipidemia, unspecified; J45.20 Mild intermittent asthma, uncomplicated; K21.9 Gastro-esophageal reflux disease without esophagitis; K11.7 Disturbances of salivary secretion; E87.6 Hypokalemia; I10 Essential (primary) hypertension; G43.909 Migraine, unspecified, not intractable, without status migrainosus; E66.9 Obesity, unspecified; H53.8 Other visual disturbances; Z79.899 Other long term (current) drug therapy; Z79.51 Long term (current) use of inhaled steroids; Z86.73 Personal history of transient ischemic attack (TIA), and cerebral infarction without residual deficits; Z68.28 Body mass index [BMI] 28.0-28.9, adult; Z71.3 Dietary counseling and surveillance; R27.0 Ataxia, unspecified; H04.129 Dry eye syndrome of unspecified lacrimal gland; I08.1 Rheumatic disorders of both mitral and tricuspid valves
CPT/HCPCS: 36415; 70450; 70544; 70547; 70551; 80048; 80061; 81001; 83036; 83735; 84443; 85025; 85652; 93005; 93306; 94640; 96361; 96365; 96366; 96372; 97163; 97166; 97535; 99218; 99285; J7030; Q9957; A4216; G0378

== ENCOUNTER 2018-10-22 09:15 | Emergency (ER) | payer MEDICARE, SELFPAY ==
[2018-07-03 01:26] VITALS: BMI 27.9
[2018-10-22 09:17] VITALS: BP 177/92; PULSE 84; RESP 16; TEMP 36.1; O2SAT 99; BMI 28.0
--- NOTE | 2018-10-22 09:39 | EKG12_ITS ---
Test Reason : SOB Blood Pressure : / mmHG Vent. Rate : 078 BPM Atrial Rate : 078 BPM P-R Int : 142 ms QRS Dur : 074 ms QT Int : 408 ms P-R-T Axes : 071 042 044 degrees QTc Int : 465 ms Normal sinus rhythm Normal ECG Confirmed by MAX BELLAMY ([id number]), photographic editor AMPARO ROMAN ([id number]) on 10/29/2018 10:07:32 AM Referred By: TREMAINE Confirmed By:MAX BELLAMY
--- NOTE | 2018-10-22 09:41 | ED.DCSUM_ITS ---
- ER Visit Summary Date of Service: 10/22/18 Chief Complaint: Wheezing and shortness of breath History of Present Illness: The patient is a 68 F. Also history of prior TIA, brain aneurysm and osteoarthritis. Patient states that she helped a friend clean out their basement yesterday. It was very will and moldy. And says earlier this morning in the middle the night she started having wheezing and shortness of breath. No cardiac sounding chest pain. No history of DVT or PE. No recent travel or surgery. No leg pain or swelling. No hemoptysis. Physical Examination: Older female. No acute distress. Vital signs are stable afebrile. Pulse ox 99% on room air. H EENT exam unremarkable. Neck nontender no JVD. No lymphadenopathy. Lungs Tory wheezing throughout. No rales or rhonchi. Equal symmetrical. Heart regular rhythm no murmur. Abdomen soft and nontender. Normal bowel sounds no peritoneal signs. Remedies moves all 4. Calves nontender. No edema. Neurologically she is awake and alert with no focal motor deficits. Test Results: EKG shows normal sinus rhythm rate 78 with no signs of ischemia. Portable 1 view chest x-ray read by myself shows no acute abnormality. Normal cardiac silhouette mediastinum. No infiltrate. Also read by the radiologist. Emergency Department Course and Treatment: Treated with IM Solu-Medrol, albuterol and DuoNeb aerosols. Clinically this appears to be exacerbation of asthma. I do not think cardiac etiology. Nor a pulmonary embolus. Treatment Plan: Repeat exam at 14 a.m. patient is doing well. Wheezing is resolved. She feels much improved. Decadron daily as needed for wheezing. She has both an inhaler nebulizer at home which she will use and follow-up as needed. Disposition: Discharge Impression: Acute dyspnea secondary to exacerbation of asthma This note was generated with [employer] dictation software. It may contain incorrect words, spelling, and punctuation that were not noted in review of the chart prior to signing ED Disposition - Plan for ED Patient: Referrals: Paul Reynolds MD [Primary Care Provider] -
--- NOTE | 2018-10-22 09:45 | RAD_ITS ---
STUDY: X-RAY CHEST REASON FOR EXAM: Female, 68 years old. Dyspnea. TECHNIQUE: Single AP portable view of the chest. COMPARISON: None. FINDINGS: Hyperinflation. The lungs are clear. There is no demonstrated pleural abnormality. Normal size heart. Normal mediastinum and gagandeep. Normal visualized pulmonary arteries. There is atherosclerotic tortuosity of the aortic arch and descending thoracic aorta. Normal visualized thoracic spine. Normal visualized ribs, clavicles, and shoulders. There is no demonstrated abnormality of the visualized soft tissue structures of the upper abdomen. RAD/Chest 1 View (Portable) IMPRESSION: Hyperinflation. The lungs are clear. Electronically Signed: Magdiel Cheung, at 10:24 EDT , Service support ,
[2018-10-22] MEDS: Albuterol 2.5 MG/3 ML VIAL.NEB. INHALATION (09:51)
[2018-10-22] MEDS: Ipratropium/Albuterol Sulfate 3 ML AMPUL.NEB INHALATION (09:51)
[2018-10-22] MEDS: MethylPREDNISolone 125 MG/2 ML Vial IM (09:51)
[2018-10-22 10:01] VITALS: PULSE 85; RESP 22
--- NOTE | 2018-10-22 11:16 | ED.DEP ---
ED Disposition - Plan for ED Patient: Disposition: Home or Assisted Living Instructions: ASTHMA, Acute (Adult) Prescriptions: Dexamethasone [Decadron] 6 mg PO DAILY 5 Days tab Prescription Printed Referrals: Paul Reynolds MD [Primary Care Provider] - As Needed Additional Instructions: Use your inhaler and nebulizer treatment as needed at home. Decadron once daily you can start that tomorrow. Follow-up if not improving return if worse. This should progressively get better. You may stop the Decadron which is a steroid when she wheezing is resolved.
[2018-10-22 11:24] VITALS: BP 131/77; PULSE 62; RESP 15; O2SAT 98
[2018-10-22 11:25] VITALS: O2SAT 99
== END 2018-10-22 11:26 | disposition home or self-care (01) ==
PROVIDERS: Emergency Provider Emergency Medicine; Family Provider Family Medicine; PCP Family Medicine
DX: J45.901 Unspecified asthma with (acute) exacerbation (principal); M19.90 Unspecified osteoarthritis, unspecified site; Z79.899 Other long term (current) drug therapy; Z86.73 Personal history of transient ischemic attack (TIA), and cerebral infarction without residual deficits
CPT/HCPCS: 71045; 93005; 94640; 96372; 99282

== ENCOUNTER 2018-12-04 09:26 | Observation (INO) | payer MEDICARE, SELFPAY ==
[2018-12-04] VITALS (16 sets, daily range): BP systolic 103–160; BP diastolic 46–105; PULSE 50–123; RESP 13–18; TEMP 36.4–36.7; O2SAT 92–96; BMI 29.8; BMI 28.7
--- NOTE | 2018-12-04 10:02 | EKG12_ITS ---
Test Reason : CP Blood Pressure : / mmHG Vent. Rate : 111 BPM Atrial Rate : 098 BPM P-R Int : 000 ms QRS Dur : 072 ms QT Int : 286 ms P-R-T Axes : 000 034 034 degrees QTc Int : 388 ms Atrial fibrillation with rapid ventricular response Abnormal ECG Confirmed by ANNELIESE ALLEN, CARLEEN ([id number]), scientific publications editor DERECK ALBA ([id number]) on 12/11/2018 9:36:00 A M Referred By: Maxine Griffin Confirmed By:HORTENCIA COY MD
--- NOTE | 2018-12-04 10:04 | ED.DCSUM_ITS ---
History of Present Illness Chief Complaint: Chest Pain Informant: Patient Onset: Yesterday - last night Activity at onset: Rest Timing: Continuous Quality: Heaviness, Pressure Location: Substernal Current Severity: Moderate Maximum Severity: Moderate Worsened By: Nothing. Not Worsened By: Breathing Relieved By: Nothing Associated Symptoms: Nausea, Dyspnea, Lightheadedness, Palpitations - pounding. Negative for: Vomiting, Cough Narrative: Patient had symptoms that started last night became worse this morning. Had trouble sleeping all night because of the symptoms. Radiating to her left upper extremity. Had a remote cardiac stress test once that was negative. No known history of heart disease. Her twin brother 3 years ago at age 64 of a large myocardial infarction. Patient has never been a smoker. In addition, patient recently started having dysuria, frequency, hesitancy, with some mild suprapubic and low back discomfort, she went to urgent care yesterday and was diagnosed with a urinary tract infection and started on an antibiotic, she cannot remember which one right now. Prior Similar Symptoms: No Recent Illness/Hospitalization: No CVD Risk Factors: Hypertension, Hypercholesterolemia, Family History 1' </=55. Negative for: Diabetes, Smoking PE Risk Factors: Negative for: Recent Travel/Surgery, Recenet Immobilization, Prior DVT or PE, Cancer, OCP + Smoking + >/=35 - Past Medical History (1) Asthma Status: Chronic (2) TIA (transient ischemic attack) Status: Chronic (3) Headache Status: Chronic (4) GERD (gastroesophageal reflux disease) Status: Chronic (5) HLD (hyperlipidemia) Status: Chronic (6) HTN (hypertension) Status: Chronic (7) Migraine Status: Chronic Past Medical History - Allergies and Home Meds Allergies/Adverse Reactions: Allergies adhesive tape Allergy (Verified 12/04/18 09:30) Rash propoxyphene HCl [From Darvon] Allergy (Verified 12/04/18:30) Rash sulfamethoxazole [From Bactrim] Allergy (Verified 12/04/18:30) Shortness of breath trimethoprim [From Bactrim] Allergy (Verified 12/04/18:30) Shortness of breath venom-honey bee [bee venom (honey bee)] Allergy (Verified 12/04/18:30) Anaphylaxis venom-wasp [wasp venom] Allergy (Verified 12/04/18:30) Anaphylaxis prednisone Adverse Reaction (Verified 12/04/18 09:30) Diarrhea anything that stings Allergy (Uncoded 12/04/18 09:30) Anaphylaxis banana peppers Allergy (Uncoded 12/04/18 09:30) Hives FIBERGLASS Allergy (Uncoded 12/04/18 09:30) Shortness of breath Primary Care Physician: Paul Reynolds MD [Primary Care Provider] - Surgical History: - - Cholecystectomy, hysterectomy, right mastoid tumor resection. Smoking Status: Never smoker Drugs: None - Family History Paternal Family History: Reports: Heart Disease Maternal Family History: Reports: Unknown - Patient notes that she does not know any maternal history, mother never went to the doctor. She denies any known history of heart disease, diabetes or cancer. Review of Systems General: Reports: Malaise, Sweats. Denies: Chills, Fever Eyes: Denies: Visual changes - bilaterally, Diplopia ENT: Denies: Rhinorrhea, Sore throat Cardiovascular: Reports: Chest pain, Palpitations, Heart racing Respiratory: Reports: Dyspnea - mild. Denies: Cough, Dyspnea on exertion Gastrointestinal: Reports: Abdominal pain - Mild suprapubic; see HPI, Nausea. Denies: Vomiting, Diarrhea, Melena, Hematochezia Genitourinary: Denies: Dysuria, Hematuria, Frequency Musculoskeletal: Reports: Extremity Pain - LUE. Denies: Neck pain, Back pain, Swelling Skin: Denies: Rash, Wounds Neurological: Denies: Headache, Weakness, Numbness Physical Exam Vital Signs/Narrative: Vital Signs Temp Pulse Resp BP Pulse Ox 12/04/18 09:27 97.6 F L 123 H 18 160/105 H 95 Inital Vital Signs reviewed: Yes General: Well nourished, Well developed, No Acute Distress Head: Normocephalic, Atraumatic Eyes: Perrl, EOMI ENT: Moist mucous membranes, No rhinorrhea Neck: Supple, Nontender Cardiovascular: No murmurs, Irregular, Tachycardia, Murmur - 1/6 systolic Respiratory: No distress, CTA bilaterally, Chest nontender Abdomen: Soft, Nontender, Nondistended, Normal bowel sounds Back: Nontender, Normal Inspection. Negative for: CVA tenderness Extremities: Nontender, No edema. Negative for: Calf Tenderness Skin: Normal color, No rash, No Trauma. Negative for: Diaphoresis Neurological: Alert, Oriented x3, Cranial nerves II-XII grossly intact, Normal Strength, Normal Sensation Psychological: Normal affect, Normal Mood Diagnostic/Tx/Re-eval Impressions Chest X-Ray 12/04/18 10:07 IMPRESSION: Normal portable chest. Electronically Signed: Reg Zuleta, at 10:51 EDT Tel , Service support , 12/04/18 10:07 Chest 1 View (Portable) [RAD] Stat Laboratory Results 12/04/18 12/04/18 09:58 09:58 WBC 6.6 RBC 5.16 Hgb 15.3 H Hct 46.0 MCV 89.1 MCH 29.7 MCHC 33.3 RDW Std Deviation 39.9 RDW Coeff of Kahlil 12.2 Plt Count 257 MPV 10.1 Immature Gran % (Auto) 0.200 Neut % (Auto) 57.3 Lymph % (Auto) 30.2 Trigg % (Auto) 9.8 Eos % (Auto) 1.7 Baso % (Auto) 0.8 Absolute Neuts (auto) 3.8 Absolute Lymphs (auto) 2.00 Nucleated RBC % 0 Sodium 142 Potassium 3.6 Chloride 110 H Carbon Dioxide 29.0 Anion Gap 3 L BUN 15 Creatinine 0.67 Estim Creat Clear Calc 51.11 Est GFR (MDRD) Af Amer 113 Est GFR (MDRD) Non-Af 93 BUN/Creatinine Ratio 22.5 H Glucose 84 Calcium 8.7 Troponin I < 0.015 - Rhythm Strip Rhythm Strip: A-fib Rate: 115 Ectopy: None - EKG Initial EKG Interpretation: No Acute Injury Pattern, Atrial Fibrillation Prior: Changed - Prior is sinus rhythm, QRS complex is unchanged and narrow Treatment: Aspirin, Morphine, - - cardizem Repeat Eval: 04/07 - much improved YONNY Risk: Age >/= 65, >/= 3RF Score: 2 - Medical Decision Making After the above treatment patient is feeling much better. Her heart rate is controlled in the 70-80 range, still in atrial fibrillation. Her enzymes are negative and there is no acute injury on EKG. She has significant risk. Plan is for admission to PCU for further evaluation and treatment, discussed with hospitalist. ED Disposition - Plan for ED Patient: Disposition: Acute Care Hospital [facility] Diagnosis: Chest pain, unspecified, New onset atrial fibrillation Referrals: Paul Reynolds MD [Primary Care Provider] -
--- NOTE | 2018-12-04 10:07 | RAD_ITS ---
EXAM DESCRIPTION: PORTABLE AP CHEST CLINICAL HISTORY: 68 years Female, COMPARISON: Previous AP portable chest obtained on 10/22/2018 FINDINGS: The thorax is intact. The heart and mediastinum appear to be within normal limits. The lungs appear to be well areated without evidence of pneumonic consolidation or pleural effusion. RAD/Chest 1 View (Portable) IMPRESSION: Normal portable chest. Electronically Signed: Reg Song, at 10:51 EDT Tel , Service support ,
[2018-12-04 10:29] LABS: Absolute Neutrophil Count 3.8 X10^3/uL (2.0-7.7); Basophil# 0.05 X10^3/uL; Basophil% 0.8 % (0-1); Eosinophil# 0.11 X10^3/uL; Eosinophils% 1.7 % (0-5); Hemoglobin 15.3 g/dL (12.0-15.0); Lymphocyte % 30.2 % (19-41); Mean Corp Hgb Conc 33.3 g/dL (32-36); Mean Corpuscular Hgb 29.7 pg (27.0-32.0); Mean Corpuscular Volume 89.1 fL (81-99); Mean Platelet Vol. 10.1 fl (6.2-12.0); Monocyte# 0.65 X10^3/uL; Monocyte% 9.8 % (0-10); NRBC Flagged by Analyzer 0 % (0-5); Neutrophil # 3.81 X10^3/uL (2.7-7.7); Neutrophil % 57.3 % (47-70); Platelet Count 257 K/mm3 (150-450); RBC Distribution Width CV 12.2 % (11.6-14.6); RBC Distribution Width SD 39.9 fl (35.1-43.9); Red Blood Count 5.16 M/mm3 (4.2-5.4); White Blood Count 6.6 K/mm3 (4.4-11.0)
[2018-12-04] MEDS: Aspirin 81 MG TAB.CHEW 324 MG PO (10:34)
[2018-12-04] MEDS: Ondansetron 4 MG/2 ML Vial IV (10:35)
[2018-12-04] MEDS: Morphine 4 MG/ML Syringe IV (10:35)
[2018-12-04] MEDS: dilTIAZem 25 MG/5 ML Vial 20 MG IV BOLUS (10:35)
[2018-12-04] MEDS: 0.9% Normal Saline 1,000 ML 1000 ML IV (10:37)
[2018-12-04 10:45] LABS: Anion Gap 3 (5-15); BUN 15 mg/dL (7-18); BUN/Creat Ratio 22.5 RATIO (10-20); Calcium,Total 8.7 mg/dL (8.5-10.1); Chloride 110 mmol/L (98-107); Creatinine, Serum 0.67 mg/dL (0.55-1.02); EST Glomerular Filtration Rate 93 mL/min (>60); Est Glom Filt Rate - Afr Amer 113 mL/min (>60); Estimated Creatinine Clearance 51.11 ml/min; Glucose 84 mg/dL (74-106); Potassium 3.6 mmol/L (3.5-5.1); Sodium Level 142 mmol/L (136-145)
--- NOTE | 2018-12-04 12:56 | PCM.HP.STD ---
History of Present Illness Date of Admission: 12/04/18 Chief Complaint: chest pain, palpitations The patient is a 68 year old F with a past medical history as listed. She was admitted through the ED on 12/04/2017 with a complaint of chest pain which started the day before admission and palpitation was started on the day of admission. Patient states started having pressure-like chest pain which radiated to her left arm and the side of her neck. She subsequently started feeling her heart beating rapidly and so she decided to come into the ED as she had not had such symptoms before. She does have a history of A. fib. She denied any lightheadedness or dizziness. Review of systems is otherwise negative. In the ED, EKG done showed A. fib with a heart rate of 123 which is currently came down with a bolus of Cardizem. Initial troponin was negative and chest x-ray showed no acute cardiopulmonary process. CBC was otherwise unremarkable and BMP was also unremarkable. EKG showed A. fib with RVR. He has been admitted to be managed for chest pain to rule out ACS and new onset A. fib with RVR. [] Past Medical History Past Medical History (Chronic Problems): Chronic Problems Asthma (Chronic) TIA (transient ischemic attack) (Chronic) HTN (hypertension) (Chronic) HLD (hyperlipidemia) (Chronic) Headache (Chronic) BMI greater than 30 (Chronic) Migraine (Chronic) GERD (gastroesophageal reflux disease) (Chronic) Asthma exacerbation (Chronic) Allergies adhesive tape Allergy (Verified 12/04/18 09:30) Rash propoxyphene HCl [From Darvon] Allergy (Verified 12/04/18 09:30) Rash sulfamethoxazole [From Bactrim] Allergy (Verified 12/04/18 09:30) Shortness of breath trimethoprim [From Bactrim] Allergy (Verified 12/04/18 09:30) Shortness of breath venom-honey bee [bee venom (honey bee)] Allergy (Verified 12/04/18 09:30) Anaphylaxis venom-wasp [wasp venom] Allergy (Verified 12/04/18 09:30) Anaphylaxis prednisone Adverse Reaction (Verified 12/04/18 09:30) Diarrhea anything that stings Allergy (Uncoded 12/04/18 09:30) Anaphylaxis banana peppers Allergy (Uncoded 12/04/18 09:30) Hives FIBERGLASS Allergy (Uncoded 12/04/18 09:30) Shortness of breath Home Medications: Ambulatory Orders Medication Instructions Recorded Epi Pen (for allergic rxn) 0.3 mg IM X1 05/04/13 Loratadine [Claritin] 10 mg PO DAILY 05/04/13 Albuterol Sulfate [Ventolin Hfa] 2 puff IH Q6H PRN PRN 12/26/15 Pantoprazole Sodium [Protonix] 20 mg PO DAILY 12/26/15 CycloSPORINE Ophthalmic [Restasis 1 drop EACH EYE DAILY 03/28/16 Ophthalmic] Fluticasone/Salmeterol [Advair 1 each IH DAILY 03/28/16 100-50 Diskus] Meclizine HCl 25 mg PO Q6H PRN 03/28/16 Atorvastatin Calcium [Lipitor] 20 mg PO DAILY 07/02/18 Fluticasone 0.05% [Flonase Nasal 2 spray NASAL DAILY 07/02/18 [place]] Verapamil HCl [Verapamil ER] 240 mg PO DAILY 07/02/18 Albuterol Aerosols [Ventolin 2.5 mg INHALATION Q4HWA.RT 12/04/18 Aerosols] Benzonatate [Tessalon Perle] 200 mg PO TID PRN PRN 12/04/18 Bifidobacter. Bifidum/B.longum 460 mg PO DAILY 12/04/18 [Florajen Bifidoblend Capsule] Glucosamine Sulfate 1,500 mg PO DAILY 12/04/18 Magnesium Oxide [Magnesium] 500 mg PO DAILY 12/04/18 Nitrofurantoin Macrocrystal 100 mg PO BID 12/04/18 [Macrodantin] Phenazopyridine [Pyridium] 100 mg PO TID 12/04/18 Thiamine HCl 100 mg PO DAILY 12/04/18 Surgical History: - - Cholecystectomy, hysterectomy, right mastoid tumor resection. 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 She denies any known history of heart disease, diabetes or cancer. Review of Systems Constitutional: Denies: Chills, Fever, Malaise, Weakness, Weight Change, Fatigue Eyes: Denies: Blurred vision HEENT: Denies: Head Aches, Sinus Congestion, Sinus Drainage Cardiovascular: Reports: Chest Pain, Chest Pressure, Palpitations. Denies: Chest Tightness, Edema, Heaviness, Light Headedness, Orthopnea, Syncope Respiratory: Denies: Cough, Shortness of Breath, Shortness of breath at rest, Shortness of breath upon exertion, Sputum production Gastrointestinal: Denies: Abdominal Pain, Nausea, Vomiting Genitourinary: Denies: Dysuria Musculoskeletal: Denies: Joint Pain, Joint Tenderness Skin: Denies: Rash, Wounds Neurological: Denies: Numbness, Tingling, Focal weakness Psychiatric: Denies: Anxiety, Depression, Homicidal Ideations, Suicidal Ideations Hematologic/ Lymphatic: Denies: Easy Bruising, Easy Bleeding VTE Information - Inpt Only VTE Present on Admission: No VTE Pharm Prophylaxis ordered?: Yes Patient Problems: Active and Suspected Problems Chest pain, unspecified (Acute) New onset atrial fibrillation (Acute) - Physical Exam General: Alert, Oriented x3, Cooperative, No apparent distress HEENT: Atraumatic, PERRLA, EOMI, Normocephalic Oral: Moist Mucosa Neck: Supple, No JVD, Negative Carotid Bruits Lungs: Clear to auscultation, Normal air movement, No rhonchi, No wheeze, No rales Cardiovascular: Normal S1, Normal S2, No murmurs, Irregular Rate - and irregular rhythm Abdomen: Bowel Sounds Present, Soft, Non Tender, Non-Distended, No Hepato-splenomegaly Extremities: No clubbing, No cyanosis, No edema, Capillary Refill Less than 3 Seconds Skin: No rashes, No breakdown Musculoskeletal: No Tenderness to Palpation of Joints or Extremities Lymphatic: No Cervical, Supraclavicular, or Inguinal Adenopathy Neurological: Cranial nerves II-XII grossly intact, Neuro grossly intact, Motor Exam 5/5 strength throughout Psych/Mental Status: Normal Affect, Appropriate, Alert and oriented to time, place, person, mood and affect Vital Signs Temp Pulse Resp BP Pulse Ox 97.6 F L 66 13 103/73 94 12/04/18 09:27 12/04/18 12:05 12/04/18 12:05 12/04/18 12:05 12/04/18 12:05 Oxygen Flow Rate (L/min) 2 Oxygen Delivery Method Nasal Cannula Weight: 184 lb 11.958 oz Body Mass Index (BMI) 29.8 Intake and Output for Last 24 Hours 12/02/18 12/03/18 12/04/18 23:59 23:59 23:59 Intake Total 1000 / 1000 Balance 1000 / 1000 Laboratory Tests Past 24 Hrs 12/04/18 12/04/18 09:58 09:58 WBC 6.6 RBC 5.16 Hgb 15.3 H Hct 46.0 MCV 89.1 MCH 29.7 MCHC 33.3 RDW Std Deviation 39.9 RDW Coeff of Kahlil 12.2 Plt Count 257 MPV 10.1 Immature Gran % (Auto) 0.200 Neut % (Auto) 57.3 Lymph % (Auto) 30.2 [place] % (Auto) 9.8 Eos % (Auto) 1.7 Baso % (Auto) 0.8 Absolute Neuts (auto) 3.8 Absolute Lymphs (auto) 2.00 Nucleated RBC % 0 Sodium 142 Potassium 3.6 Chloride 110 H Carbon Dioxide 29.0 Anion Gap 3 L BUN 15 Creatinine 0.67 Estim Creat Clear Calc 51.11 Est GFR (MDRD) Af Amer 113 Est GFR (MDRD) Non-Af 93 BUN/Creatinine Ratio 22.5 H Glucose 84 Calcium 8.7 Troponin I < 0.015 Diagnostic Data Chest X-Ray 12/04/18 10:07 IMPRESSION: Normal portable chest. Electronically Signed: Reg Song, at 10:51 EDT Tel , Service support , Assessment/Plan All Active Problems Chest pain, unspecified (Acute) New onset atrial fibrillation (Acute) CVA (cerebral vascular accident) (Acute) Balance problem (Acute) 68-year-old admitted with a complaint of chest pain and palpitations. 1. Chest pain to r./o ACS admit to PCU with telemetry cycle troponins; initial troponin was negative. SL nitroglycerin prn; PO aspirin 81mg daily will consult cardiology on account of new onset Afib 2. New onset Afib with RVR became rate controlled after being administered a bolus of cardizem has no history of afib will check Mg; Potassium was 3.6; check TSH; 2D echo give therapeutic dose of lovenox consult cardiology 3. UTI: recently diagnosed with UTI. started on nitrofurantoin. Will complete course 4. Asthma: Well controlled. She rarely uses albuterol inhaler. Continue breathing treatments as needed with albuterol. Also on Advair. 5. GERD: Pantoprazole 6. History of migraine headaches: On verapamil. DVT prophylaxis: Therapeutic Lovenox for A. fib CODE STATUS: Full code Patient counseled extensively about different types of CODE STATUS including full code, DNR CCA and DNR CCA. Patient elects to be full code. Total [id number] time 16 minutes. Code Visit Inpatient E&M: 40428 Init Hosp L3 Procedures: 67655 Advncd Care Plan 30 Min
--- NOTE | 2018-12-04 14:06 | EKG12_ITS ---
Test Reason : CP ADMISSION EKG Blood Pressure : / mmHG Vent. Rate : 078 BPM Atrial Rate : 083 BPM P-R Int : 000 ms QRS Dur : 084 ms QT Int : 400 ms P-R-T Axes : 000 042 040 degrees QTc Int : 456 ms Atrial fibrillation with premature ventricular or aberrantly conducted complexes Abnormal ECG When compared with ECG of 04-DEC-2018 09:28, MANUAL COMPARISON REQUIRED, DATA IS UNCONFIRMED Confirmed by ANNELIESE ALLEN, CARLEEN ([id number]), scientific publications editor SOFIA ARREDONDO ([id number]) on 12/11/2018 10:15:58 AM Referred By: Maxine Griffin Confirmed By:HORTENCIA COY MD
--- NOTE | 2018-12-04 14:18 | ECHOD_ITS ---
Reason For Study: ARRHYTHMIA Procedure This was a 2D Doppler, Color Flow transthoracic echocardiogram. Exam performed portable in patient room. Left Ventricle Normal size and thickness. The estimated ejection fraction is 65 %. Unable to assess diastolic dysfunction due to arrhythmia. No regional wall motion abnormalities noted. Right Ventricle Moderately dilated right ventricle. Normal systolic function. Atria Normal left atrium. Normal right atrium. Normal atrial septum. Mitral Valve Mild diffuse mitral valve thickening. Mild (1+) mitral valve insufficiency. Tricuspid Valve Normal tricuspid valve. Mild (1+) tricuspid valve insufficiency. Right ventricular systolic pressure estimated to be 44 mmHg. Mild pulmonary hypertension. Aortic Valve Trisinus/trileaflet aortic valve. Mild diffuse aortic valve thickening. There is no aortic stenosis. Pulmonic Valve Normal pulmonic valve. Great Vessels Normal aortic root. Normal arch. Normal inferior vena cava. Inferior vena cava collapse with sniff. Pericardium/Pleural No pericardial effusion. MMode/2D Measurements & Calculations LVIDd: 3.5 cm IVSd: 1.1 cm Ao root diam: 3.1 cm LVIDs: 2.2 cm LVPWd: 1.2 cm RVDd: 4.0 cm FS: 36.6 % LAV(MOD-bp): 57.6 ml LVAd ap4: 23.7 cm2 SV(MOD-sp4): 38.1 ml LAV(MOD-bp) Indexed: 30.3 ml/m2 EDV(MOD-sp4): 59.4 ml LAV(MOD-sp2): 60.3 ml EDV(sp4-el): 60.3 ml LAV(MOD-sp4): 50.1 ml LVAs ap4: 12.5 cm2 ESV(MOD-sp4): 21.3 ml ESV(sp4-el): 20.7 ml EF(MOD-sp4): 64.1 % EF(sp4-el): 65.6 % SV(sp4-el): 39.5 ml LA A4 area: 18.3 cm2 LA dimension(2D): 3.9 cm RA A4 area: 18.7 cm2 Doppler Measurements & Calculations Ao V2 max: 142.5 cm/sec LV V1 max: 111.4 cm/sec PA V2 max: 84.5 cm/sec Ao max P.2 mmHg LV V1 max P.0 mmHg TR max chen: 268.4 cm/sec TR max P.8 mmHg Interpretation Summary The estimated ejection fraction is 65 %. Unable to assess diastolic dysfunction due to arrhythmia. Moderately dilated right ventricle. Mild (1+) mitral valve insufficiency. Mild (1+) tricuspid valve insufficiency. Right ventricular systolic pressure estimated to be 44 mmHg. Mild pulmonary hypertension. Compared to echo report dated 07/03/2018, LV function has remained the same, and RVSP has decreased from 55 to 44 mm Hg. Pt now appears to be in atrial fibrillation. Ordering Physician: Maxine Griffin Referring Physician: TARYN ERICKSON Performed By: Kaia Wetzel, JANICE, RVT
[2018-12-04] MEDS: Enoxaparin 80 MG/0.8 ML Syringe SC (14:26)
[2018-12-04 14:36] LABS: Thyroid Stim Hormone (TSH) 1.46 uIU/mL (0.358-3.74)
[2018-12-04] MEDS: Nitroglycerin (INPATIENT USE) 0.4 MG TAB.SUBL SUBLINGUAL ×3 (14:54→15:05)
--- NOTE | 2018-12-04 14:58 | NURSING ---
pt continues to have left arm pain (she said that is improving 3/10) and chest discomfort/pain, denies jaw pain or radiating to back skin is warm and dry-pt a&o x3
--- NOTE | 2018-12-04 16:17 | PCM.CONS.C ---
Problem List (1) Asthma Status: Chronic (2) TIA (transient ischemic attack) Status: Chronic (3) Chest pain, unspecified Status: Acute (4) New onset atrial fibrillation Status: Acute (5) CVA (cerebral vascular accident) Status: Acute Qualifiers: CVA mechanism: unspecified Qualified Code(s): I63.9 - Cerebral infarction, unspecified (6) HTN (hypertension) Status: Chronic Qualifiers: Hypertension type: essential hypertension Qualified Code(s): I10 - Essential (primary) hypertension (7) HLD (hyperlipidemia) Status: Chronic Qualifiers: Hyperlipidemia type: unspecified Qualified Code(s): E78.5 - Hyperlipidemia, unspecified Reason for Consult Date of Consultation: 12/04/18 Reason for Consultation: New onset atrial fibrillation, history of CVA/TIA, hypertension, hypercholesterolemia, no previous known coronary artery disease History of Present Illness: The patient is a 68 year old F, nondiabetic, non-smoker, previous history of atrial fibrillation, previous history of TIA/CVA approximately 2 years ago, and was seen by Dr. Fidelina Cochran. Apparently the patient has had an MRI at an outside facility as well as an MRI here [facility] on 07/03/2018. At that time her MRA showed the followin. 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 Otherwise, negative study. CT scan of her head was negative for acute event. Prior to that when the patient had a TIA she was initially treated with Coumadin and then this was discontinued. Patient was supposed to follow-up with a neurosurgeon, but has yet to do so. She is not on anticoagulation therapy. 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 When this did not improve she presented to the emergency room which demonstrated an EKG showing atrial fibrillation with rapid ventricular response. Patient was given IV Cardizem and her heart rate improved and her chest pain resolved. Her first her troponins are negative. She remains in atrial fibrillation but her heart rate is well controlled. She has no anginal symptoms. 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 Patient underwent an echocardiogram in June 2018 which showed a hyperdynamic LV with an EF of 75%, at least moderate pulmonary hypertension with an RVSP of 55 mmHg, and a negative bubble study. It has been many years since her last stress test. She has never had a heart catheterization. She is currently resting comfortably. TSH is normal. [] Past Medical History Allergies/Adverse Reactions: Allergies adhesive tape Allergy (Verified 12/04/18 09:30) Rash propoxyphene HCl [From Darvon] Allergy (Verified 12/04/18 09:30) Rash sulfamethoxazole [From Bactrim] Allergy (Verified 12/04/18 09:30) Shortness of breath trimethoprim [From Bactrim] Allergy (Verified 12/04/18 09:30) Shortness of breath venom-honey bee [bee venom (honey bee)] Allergy (Verified 12/04/18 09:30) Anaphylaxis venom-wasp [wasp venom] Allergy (Verified 12/04/18 09:30) Anaphylaxis prednisone Adverse Reaction (Verified 12/04/18 09:30) Diarrhea anything that stings Allergy (Uncoded 12/04/18 09:30) Anaphylaxis banana peppers Allergy (Uncoded 12/04/18 09:30) Hives FIBERGLASS Allergy (Uncoded 12/04/18 09:30) Shortness of breath Home Medications: Ambulatory Orders Medication Instructions Recorded Epi Pen (for allergic rxn) 0.3 mg IM X1 05/04/13 Loratadine [Claritin] 10 mg PO DAILY 05/04/13 Albuterol Sulfate [Ventolin Hfa] 2 puff IH Q6H PRN PRN 12/26/15 Pantoprazole Sodium [Protonix] 20 mg PO DAILY 12/26/15 CycloSPORINE Ophthalmic [Restasis 1 drop EACH EYE DAILY 03/28/16 Ophthalmic] Fluticasone/Salmeterol [Advair 1 each IH DAILY 03/28/16 100-50 Diskus] Meclizine HCl 25 mg PO Q6H PRN 03/28/16 Atorvastatin Calcium [Lipitor] 20 mg PO DAILY 07/02/18 Fluticasone 0.05% [Flonase Nasal 2 spray NASAL DAILY 07/02/18 [place]] Verapamil HCl [Verapamil ER] 240 mg PO DAILY 07/02/18 Albuterol Aerosols [Ventolin 2.5 mg INHALATION Q4HWA.RT 12/04/18 Aerosols] Benzonatate [Tessalon Perle] 200 mg PO TID PRN PRN 12/04/18 Bifidobacter. Bifidum/B.longum 460 mg PO DAILY 12/04/18 [Florajen Bifidoblend Capsule] Nitrofurantoin Macrocrystal 100 mg PO BID 12/04/18 [Macrodantin] Phenazopyridine [Pyridium] 100 mg PO TID 12/04/18 Past Medical History (Chronic Problems): Chronic Problems Asthma (Chronic) TIA (transient ischemic attack) (Chronic) HTN (hypertension) (Chronic) HLD (hyperlipidemia) (Chronic) Headache (Chronic) BMI greater than 30 (Chronic) Migraine (Chronic) GERD (gastroesophageal reflux disease) (Chronic) Asthma exacerbation (Chronic) Surgical History: - - Cholecystectomy, hysterectomy, right mastoid tumor resection. 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 She denies any known history of heart disease, diabetes or cancer. Lives: Alone Smoking Status: Never smoker Alcohol: None Drugs: None Review of Systems - Review of Systems General: Denies: Fever, Night Sweats, Fatigue Cardiovascular: Reports: Chest Discomfort, Chest Discomfort with Exertion, Palpitations. Denies: Shortness of Breath, Orthopnea, PND, Peripheral Edema, Lightheadedness, Dizziness, Near Syncope, Syncope Respiratory: Denies: Cough, Sputum Production, Hemoptysis Gastrointestinal: Denies: Hematemesis, Hematochezia, Melena Genitourinary: Denies: Dysuria, Hematuria Skin: Denies: Rash Subjectve: Patient resting comfortably, no acute distress. Objective: Vital Signs Temp Pulse Resp BP Pulse Ox 98.1 F 50 L 18 108/46 L 94 12/04/18 14:00 12/04/18 15:11 12/04/18 15:11 12/04/18 15:11 12/04/18 15:11 Oxygen Flow Rate (L/min) 2 Oxygen Delivery Method Room Air Weight: 177 lb 14.609 oz Body Mass Index (BMI) 28.7 Intake and Output for Last 24 Hours 1012/03/18 12/04/18 23:59 23:59 23:59 Intake Total 1000 / 1000 Balance 1000 / 1000 General: Awake, Alert, Oriented x 3 HEENT: PERRL, EOMI, Sclera Non Icteric Neck: Supple, Good ROM, No Lymph Node Enlargement Lungs: Clear to auscultation Cardiovascular: Regular Rhythm, Normal S1, Normal S2, No Murmurs, No Rubs, No Gallops Vascular: No Carotid Bruits, Normal Femoral Pulses, Normal Radial Pulses, Normal Dorsalis Pedal Pulse, Normal Posterior Tibial Pulses Abdomen: Bowel Sounds Present, Soft, Non Tender, No HSM, No Organomegaly Extremities: No Cyanosis, No Clubbing, No edema Neurological: No Focal Motor or Sensory Deficit 12/04/18 09:58: WBC 6.6, RBC 5.16, Hgb 15.3 H, Hct 46.0, MCV 89.1, MCH 29.7, MCHC 33.3, Plt Count 257, MPV 10.1, Immature Gran % (Auto) 0.200, Neut % (Auto) 57.3, Lymph % (Auto) 30.2, [place] % (Auto) 9.8, Eos % (Auto) 1.7, Baso % (Auto) 0.8, Absolute Neuts (auto) 3.8, Nucleated RBC % 0 12/04/18 09:58: Sodium 142, Potassium 3.6, Chloride 110 H, Carbon Dioxide 29.0, Anion Gap 3 L, BUN 15, Creatinine 0.67, Est GFR (MDRD) Af Amer 113, Est GFR (MDRD) Non-Af 93, BUN/Creatinine Ratio 22.5 H, Glucose 84, Calcium 8.7, Troponin I < 0.015 12/04/18 09:58: Magnesium 2.0 12/04/18 14:00: Troponin I < 0.015 Rhythm: Telemetry shows atrial fibrillation with controlled ventricular response EKG: As above ECHO: Pending Stress Test: Pending Cardiac Cath: PCI: CT Surgery: Holter monitor: EPS: PPM: CXR: Chest CT Scan: Assessment/Plan 1. Atrial fibrillation: The patient presents with recurrent atrial fibrillation superimposed on previous TIAs in the past. 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 Patient is not currently on anticoagulation despite given her previous TIA and previous atrial fibrillation. She has a chads vas score of 5, and a bleeding risk of 3. The patient was supposed to see a neurosurgeon with respect to her aneurysm, but unfortunately had never done so. Patient's heart rate is well controlled on calcium channel danielle therapy at this time. Her TSH is normal. Her troponins are negative x2. I recommend that she undergo a repeat 2D echo with Doppler to ensure that she has no RV strain or worsening pulmonary hypertension. Given the patient's chads vas score, I believe she requires anticoagulation therapy, but prior to this I would recommend that she undergo a dobutamine echocardiogram to assess for possible coronary ischemia. In addition I recommend that we obtain a consultation for Dr. Carvajal to determine whether the patient requires neurosurgical consultation prior to anticoagulation therapy or in conjunction with anticoagulation therapy for her small aneurysm. Given the patient's paroxysmal atrial fibrillation and pulmonary hypertension she is at high risk for thrombosis and would recommend lifelong anticoagulation therapy if this is okay with Dr. Carvajal. If her stress test is abnormal for ischemia she will need undergo a diagnostic coronary angiogram given her chest pain and left arm pain and other concomitant coronary risk factors. We will hold off on oral anticoagulation until after her stress test has been completed. In the meantime she will continue verapamil CD 240 mg p.o. daily and we can titrate this up if her heart rate is still not well controlled. Another option would be to add amiodarone to assist with heart rate control and/or chemical cardioversion. While she is admitted I recommend Lovenox therapy per protocol to avoid CVA or DVT. Should the patient be a candidate for anticoagulation I would recommend Coumadin as this can be easily reversed should she have any bleeding issues. 2. Hyperlipidemia: Recommend obtaining a vascular profile. Her LDL needs to be less than 70. 3. Thank you very much for the opportunity to participate in the cardiac care of your patient. Many thanks to Reg rodriguez for his assistance as well. Consultation time took place between 340 and 4:28 PM. Code Visit Inpatient E&M: 79591 Init Hosp L2
[2018-12-04] MEDS: Nitrofurantoin Macrocrystals 100 MG Capsule PO (17:51)
[2018-12-04] MEDS: Phenazopyridine 95 MG Tablet PO (17:51)
[2018-12-04] MEDS: Albuterol 2.5 MG/3 ML VIAL.NEB. INHALATION (20:15)
[2018-12-04] MEDS: Budesonide Respules 0.5 MG/2 ML AMPUL.NEB. INHALATION (20:15)
[2018-12-04] MEDS: Atorvastatin Calcium 20 MG Tablet PO (22:11)
[2018-12-05] VITALS (13 sets, daily range): BP systolic 105–120; BP diastolic 58–74; PULSE 59–111; RESP 16–18; TEMP 36.6–36.9; O2SAT 93–97
[2018-12-05 06:40] LABS: Absolute Lymphocyte Count 2.32 X10^3/uL (0.83-4.51); Absolute Neutrophil Count 2.8 X10^3/uL (2.0-7.7); Basophil# 0.05 X10^3/uL; Basophil% 0.9 % (0-1); Eosinophil# 0.12 X10^3/uL; Eosinophils% 2.1 % (0-5); Hematocrit 42.3 % (37-47); Hemoglobin 13.9 g/dL (12.0-15.0); Lymphocyte # 2.32 X10^3/ul (4.0); Lymphocyte % 40.8 % (19-41); Mean Corp Hgb Conc 32.9 g/dL (32-36); Mean Corpuscular Hgb 29.5 pg (27.0-32.0); Mean Corpuscular Volume 89.8 fL (81-99); Mean Platelet Vol. 9.8 fl (6.2-12.0); Monocyte# 0.43 X10^3/uL; Monocyte% 7.6 % (0-10); NRBC Flagged by Analyzer 0 % (0-5); Neutrophil # 2.75 X10^3/uL (2.7-7.7); Neutrophil % 48.4 % (47-70); Platelet Count 232 K/mm3 (150-450); RBC Distribution Width CV 12.6 % (11.6-14.6); RBC Distribution Width SD 41.4 fl (35.1-43.9); Red Blood Count 4.71 M/mm3 (4.2-5.4); White Blood Count 5.7 K/mm3 (4.4-11.0)
[2018-12-05 07:00] LABS: Anion Gap 7 (5-15); BUN 18 mg/dL (7-18); BUN/Creat Ratio 27.8 RATIO (10-20); Calcium,Total 8.4 mg/dL (8.5-10.1); Chloride 110 mmol/L (98-107); Creatinine, Serum 0.65 mg/dL (0.55-1.02); EST Glomerular Filtration Rate 97 mL/min (>60); Est Glom Filt Rate - Afr Amer 117 mL/min (>60); Estimated Creatinine Clearance 51.11 ml/min; Glucose 97 mg/dL (74-106); Magnesium 1.9 mg/dL (1.6-2.6); Potassium 4.1 mmol/L (3.5-5.1); Sodium Level 144 mmol/L (136-145)
--- NOTE | 2018-12-05 08:50 | STEWCON_ITS ---
Reason For Study: Atrial Fibrillation Stress Results Protocol: Dobutamine Stress Echo Maximum Predicted HR: 153 bpm Target HR: 130 bpm % Maximum Predicted HR: 106 % DurationHeart Rate Stage (mm:ss) (bpm) BP Comment Baseline 114 143/98No Chest Pain; 4 ML Diluted Definity Given DSE 10 MCG 4:19 162 163/100No Chest Pain Recovery 115 160/87No Chest Pain Stress Duration: 4:19 mm:ss Maximum Stress HR: 162 bpm METS: 1 Baseline Echocardiogram Findings The estimated ejection fraction is 65 %. Stress Echo Wall motion Data Resting WM Intermediate WM Stress WM Resting Wall Motion Wall Motion Stress No regional wall motion No regional wall motion abnormalities noted. abnormalities noted. EKG Data Atrial fibrillation. The patient was titrated from 10 mcg to a maximum of 20 mcg of dobutamine during the stress. The maximum heart rate attained was 162 beats per minute. This was 105% of maximum predicted heart rate. During dobutamine infusion, there were no ST or T wave changes noted to suggest ischemia. No clinical angina was noted. Interpretation Summary The estimated ejection fraction is 65 %. Normal, adequate, dobutamine echocardiogram. Negative for ischemia by EKG and echocardiographic criteria. No anginal symptoms noted. Baseline atrial fibrillation which remained in place during dobutamine infusion. Hypertensive blood pressure response to dobutamine. Final LVEF of 75%. Decreased sensitivity due to poor echo windows requiring Definity agent. Test terminated due to attainment target heart rate. No complications. The study was technically difficult. Contrast injection was performed. Ordering Physician: Ludwin Sampson Referring Physician: Maxine Griffin Performed By: Kaia Wetzel, YANETHCS, RVT
--- NOTE | 2018-12-05 08:50 | PCM.PN.CARD ---
Subjectve: Patient doing well this morning, did have some tachycardia getting up to go to the bathroom. Echocardiogram in progress. Troponins negative x3. Objective: Vital Signs Temp Pulse Resp BP Pulse Ox 98.0 F 94 16 118/74 95 12/05/18 03:55 12/05/18 07:34 12/05/18 03:55 12/05/18 03:55 12/05/18 08:19 Oxygen Flow Rate (L/min) 2 Oxygen Delivery Method Nasal Cannula Weight: 177 lb 14.609 oz Body Mass Index (BMI) 28.7 Intake and Output for Last 24 Hours 12/03/18 12/04/18 12/05/18 23:59 23:59 23:59 Intake Total 1999 / 1999 Output Total 1400 / 1400 Balance 600 / 600 General: Awake, Alert, Oriented x 3 HEENT: PERRL, EOMI, Sclera Non Icteric Neck: Supple, Good ROM, No Lymph Node Enlargement Lungs: Clear to auscultation Cardiovascular: Irregular Rhythm, Normal S1, Normal S2, No Rubs, No Gallops Murmur Murmur: Grade 2/6, Holosystolic Vascular: No Carotid Bruits, Normal Femoral Pulses, Normal Radial Pulses, Normal Dorsalis Pedal Pulse, Normal Posterior Tibial Pulses Abdomen: Bowel Sounds Present, Soft, Non Tender, No HSM, No Organomegaly Extremities: No Cyanosis, No Clubbing, No edema Neurological: No Focal Motor or Sensory Deficit 12/04/18 09:58: WBC 6.6, RBC 5.16, Hgb 15.3 H, Hct 46.0, MCV 89.1, MCH 29.7, MCHC 33.3, Plt Count 257, MPV 10.1, Immature Gran % (Auto) 0.200, Neut % (Auto) 57.3, Lymph % (Auto) 30.2, [place] % (Auto) 9.8, Eos % (Auto) 1.7, Baso % (Auto) 0.8, Absolute Neuts (auto) 3.8, Nucleated RBC % 0 12/04/18 09:58: Sodium 142, Potassium 3.6, Chloride 110 H, Carbon Dioxide 29.0, Anion Gap 3 L, BUN 15, Creatinine 0.67, Est GFR (MDRD) Af Amer 113, Est GFR (MDRD) Non-Af 93, BUN/Creatinine Ratio 22.5 H, Glucose 84, Calcium 8.7, Troponin I < 0.015 12/04/18 09:58: Magnesium 2.0 12/04/18 14:00: Troponin I < 0.015 12/04/18 16:15: Troponin I < 0.015 12/05/18 06:16: WBC 5.7, RBC 4.71, Hgb 13.9, Hct 42.3, MCV 89.8, MCH 29.5, MCHC 32.9, Plt Count 232, MPV 9.8, Immature Gran % (Auto) 0.200, Neut % (Auto) 48.4, Lymph % (Auto) 40.8, [place] % (Auto) 7.6, Eos % (Auto) 2.1, Baso % (Auto) 0.9, Absolute Neuts (auto) 2.8, Nucleated RBC % 0 12/05/18 06:16: Sodium 144, Potassium 4.1, Chloride 110 H, Carbon Dioxide 27.0, Anion Gap 7, BUN 18, Creatinine 0.65, Est GFR (MDRD) Af Amer 117, Est GFR (MDRD) Non-Af 97, BUN/Creatinine Ratio 27.8 H, Glucose 97, Calcium 8.4 L, Magnesium 1.9 Rhythm: EKG: ECHO: Stress Test: Cardiac Cath: PCI: CT Surgery: Holter monitor: EPS: PPM: CXR: Chest CT Scan: Medical Necessity - Tobacco Use Smoking Status: Never smoker Assessment/Plan 1. Atrial fibrillation: The patient presents with recurrent atrial fibrillation superimposed on previous TIAs in the past. 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 Patient is not currently on anticoagulation despite given her previous TIA and previous atrial fibrillation. She has a chads vas score of 5, and a bleeding risk of 3. The patient was supposed to see a neurosurgeon with respect to her aneurysm, but unfortunately had never done so. Patient's heart rate is well controlled on calcium channel danielle therapy at this time. Her TSH is normal. Her troponins are negative x2. I recommend that she undergo a repeat 2D echo with Doppler to ensure that she has no RV strain or worsening pulmonary hypertension. This was done this morning, with results pending. Her LV function appeared to be intact globally but final results are pending. Given the patient's chads vasc score, I believe she requires anticoagulation therapy, but prior to this I would recommend that she undergo a dobutamine echocardiogram to assess for possible coronary ischemia. Will be ordered for this morning 12/05/2018. In addition I recommend that we obtain a consultation for Dr. Carvajal to determine whether the patient requires neurosurgical consultation prior to anticoagulation therapy or in conjunction with anticoagulation therapy for her small aneurysm. Given the patient's paroxysmal atrial fibrillation and pulmonary hypertension she is at high risk for thrombosis and would recommend lifelong anticoagulation therapy if this is okay with Dr. Carvajal. If her stress test is abnormal for ischemia she will need undergo a diagnostic coronary angiogram given her chest pain and left arm pain and other concomitant coronary risk factors. We will hold off on oral anticoagulation until after her stress test has been completed. In the meantime she will continue verapamil CD 240 mg p.o. daily and since her heart rate is not well controlled we will add Lopressor 25 mg p.o. twice daily. Another option would be to add amiodarone to assist with heart rate control and/or chemical cardioversion. While she is admitted I recommend Lovenox therapy per protocol to avoid CVA or DVT. Should the patient be a candidate for anticoagulation I would recommend Coumadin as this can be easily reversed should she have any bleeding issues. 2. Hyperlipidemia: Recommend obtaining a vascular profile. Her LDL needs to be less than 70. 3. Thank you very much for the opportunity to participate in the cardiac care of your patient. Echocardiogram and stress echocardiogram results to follow. Code Visit Inpatient E&M: 04146 [facility] L3
[2018-12-05 09:37] LABS: Cholesterol 148 mg/dL (200); High Density Lipoprotein 48 mg/dL; Triglycerides 99 mg/dL; Very Low Density Lipoprotein 20 mg/dL (5-40)
--- NOTE | 2018-12-05 09:55 | CASEMGMT ---
RN SALO NOTE: To room to talk with pt. Pt resting in bed. Reviewed HINOJOSA form with pt and questions answered. HINOJOSA form signed by pt, copy made and placed on chart, and original given to pt. Pt made aware if she has any further questions to ask for CM. Pt voices understanding. Alphonso ALCAZARN RN CM
--- NOTE | 2018-12-05 10:04 | CASEMGMT ---
JULEE met with patient as per nursing she is being scammed by someone on the internet. She is sending money to this individual and does not have money to pay for her prescriptions per her family. The hospital resource officer also came up and talked with patient letting her know she is being scammed. JULEE met with patient, introduced self and role at [facility]. SW asked her about this particular situation. She said she is not being scammed. She said she is not sending this individual money, but he has sent her money. She said, I know better than that. She said he is from the [place] and they have been talking for 17 months. They are supposed to get next year. She said he was on his way to come here when he and his daughter got stopped at the airport with a suitcase full of the money he has saved. She said she told him not go carry so much money at once. SW asked her about not being able to afford her medications. She said she is having troubles. JULEE asked if she has applied for Medicaid. She does not qualilfy as she gets $1129 from Social Security and she works 2 jobs. She said [employer]ak has sent her some information on mail order which would save her a bunch of money. She just hasn't taken the time to look at them and fill them out. At that time the A P SUPERVISOR was in the room to take patient to her stress test. At this point patient is denying she is sending money to anyone. SW would call Adult Protective Services as she is over 60, but with patient denying everything they would not be able to do much. Winter URBAN MSW
[2018-12-05] MEDS: Nitrofurantoin Macrocrystals 100 MG Capsule PO ×2 (11:12→16:22)
[2018-12-05] MEDS: Phenazopyridine 95 MG Tablet PO ×3 (11:12→16:22)
[2018-12-05] MEDS: Loratadine 10 MG Tablet PO (11:13)
[2018-12-05] MEDS: Fluticasone 0.05% 1 SPRAY NASAL.SRY 2 SPRAY NASAL (11:13)
[2018-12-05] MEDS: Verapamil SR 240 MG Tablet PO (11:13)
[2018-12-05] MEDS: Thiamine Hydrochloride 100 MG Tablet PO (11:14)
[2018-12-05] MEDS: Pantoprazole Sodium 20 MG Tablet PO (11:14)
[2018-12-05] MEDS: Magnesium Oxide 400 MG Tablet PO (11:14)
[2018-12-05] MEDS: Metoprolol Tartrate 25 MG Tablet PO ×2 (11:15→22:24)
--- NOTE | 2018-12-05 12:27 | CT_ITS ---
STUDY: CTA HEAD AND NECK WITH CONTRAST REASON FOR EXAM: Female, 68 years old. History of brain aneurysm presenting to the emergency department yesterday with chest pain and atrial fibrillation RADIATION DOSAGE (If Supplied By Facility): CTDIvol = ( 32.70 ) mGy, DLP = ( 1508.74 ) mGycm TECHNIQUE: CT angiography was performed with a multi-detector CT scanner. Data acquisition was obtained from the skull base through the vertex following intravenous administration of IV Isovue 370 100. MIP images were reconstructed from the axial data set. Post-processing of the angiographic images was performed, with multiplanar reformation and 3D reconstruction. Individualized dose optimization techniques were used for this CT. COMPARISON: No relevant priors. FINDINGS: The pre and post contrast CT images of the head were obtained and reviewed. The ruby, medulla, and cerebellum appear to be normal. The cerebral hemispheres and the ventricles and cerebral sulci are normal. The basal ganglia are normal. No enhancing masses or lesions are seen. Bone scanning windows were reviewed and show the inner and outer tables of the skull to be intact. The frontal, ethmoid, right maxillary, and sphenoid sinuses are normal. Mucoperiosteal reaction due to low-grade sinusitis is noted involving the left maxillary sinus. Post contrast CTA images were then reviewed. Posterior Cerebral Circulation: The V4 segments of the vertebral arteries are normal bilaterally. The basilar artery is normal. The [right and left] anterior inferior cerebellar artery is normal. The anterior superior cerebellar arteries are seen at their origins and are normal. The P1, P2, and P3 segments of the [right and left] posterior cerebral arteries are normal. Anterior Cerebral Circulation: The cavernous and supraclinoid carotid arteries are normal. The A1 segments of the [right and left] anterior cerebral arteries are normal. The anterior communicating artery are normal. The M1 segments of the [right and left] cerebral arteries are normal. The bifurcations of the middle cerebral arteries are normal. Cerebral Venous Circulation: The superior sagital sinus is normal. The inferior sagital sinus is normal. The internal cerebral veins, great vein of Fran, straight sinus, and torcula are normal. The transverse sinuses and sigmoid sinuses are normal. The CT scan of the neck, and CTA of the carotid and vertebral arteries was performed. The base of the skull, the mandible and the lung apices are normal. The cervical vertebra are normal and are in good position and alignment. Cervical Soft Tissues. The parotid space, buccal space, brusher operator space, retropharnygeal space, parapharyngeal space, parapharyngeal mucosal space, and visceral space are normal. The carotid space is normal. The thyroid is normal. The thoracic inlet is normal. The supraclavicular space is normal. The nasopharynx and torus tuberous, the oropharynx and epiglottis, and the hypopharynx and aryepiglottic folds are normal. The true vocal cords and false cords are normal. The cervical trachea is normal. CTA images of the neck were reviewed and show a normal branch pattern of the aortic arch with a normal branch pattern. The right inominate artery is normal. The right subclavian artery is normal. The left common carotid artery is normal at its origin. The left subclavian artery is normal at its origin. On the right side, the right vertebral artery originates from the right subclavian artery. The V1, V2, V3, and V4 segments of the right vertebral artery are normal. The right common carotid artery is smooth. The right carotid bifurcation is normal. The right external carotid artery is normal. The origin of the right internal carotid artery, and the cervical and petrous portions of the right internal carotid artery are normal. On the left side, the left vertebral artery originates from the left subclavian artery. The V1,V2, V3, and V4 segments of the left vertebral artery are normal. The left common carotid artery is smooth. The left carotid bifurcation is normal. The left external carotid artery is normal. The origins of the left internal carotid artery, and the cervical and petrous portions of the left internal carotid artery are normal. CT/CTA Head AND Neck W/ Contrast IMPRESSION: Normal CTA of the Head Normal CTA of the Cervical Carotid and Vertebral Arteries. No stenosis identified. Specifically no evidence of a burden aneurysm is seen. Electronically Signed: Reg Zuleta, at 14:03 EDT Tel , Service support ,
[2018-12-05] MEDS: Amiodarone 200 MG Tablet 400 MG PO ×2 (13:34→22:23)
--- NOTE | 2018-12-05 14:21 | PCM.PN.HOSP ---
Patient Problems: Active and Suspected Problems Chest pain, unspecified (Acute) New onset atrial fibrillation (Acute) Aneurysm (Suspected) Subjective: Patient seen and examined. She has no complaints today. She did have some palpitations when she got up to go to the bathroom. Review of systems otherwise negative. Vitals/I&O's: Vital Signs Temp Pulse Resp BP Pulse Ox 98.1 F 111 H 18 117/69 97 12/05/18 09:55 12/05/18 11:15 12/05/18 09:55 12/05/18 09:55 12/05/18 09:55 Oxygen Flow Rate (L/min) 2 Oxygen Delivery Method Nasal Cannula Weight: 177 lb 14.609 oz Body Mass Index (BMI) 28.7 Intake and Output for Last 24 Hours 12/03/18 12/04/18 12/05/18 23:59 23:59 23:59 Intake Total 1999 / 1999 240 / 240 Output Total 1400 / 1400 Balance 600 / 600 240 / 240 General: Alert, Oriented x3, Cooperative, No apparent distress HEENT: Atraumatic, PERRLA, EOMI, Normocephalic Oral: Moist Mucosa Neck: Supple, No JVD, Negative Carotid Bruits Lungs: Clear to auscultation, Normal air movement, No rhonchi, No wheeze, No rales Cardiovascular: Normal S1, Normal S2, No murmurs, Irregular Rate - and irregular rhythm Abdomen: Bowel Sounds Present, Soft, Non Tender, Non-Distended, No Hepato-splenomegaly Extremities: No clubbing, No cyanosis, No edema, Capillary Refill Less than 3 Seconds Skin: No rashes, No breakdown Musculoskeletal: No Tenderness to Palpation of Joints or Extremities Lymphatic: No Cervical, Supraclavicular, or Inguinal Adenopathy Neurological: Cranial nerves II-XII grossly intact, Neuro grossly intact, Motor Exam 5/5 strength throughout Psych/Mental Status: Normal Affect, Appropriate, Alert and oriented to time, place, person, mood and affect Laboratory Results 12/04/18 09:58: Magnesium 2.0, TSH 1.46 12/04/18 14:00: Troponin I < 0.015 12/04/18 16:15: Troponin I < 0.015 12/05/18 06:16: WBC 5.7, RBC 4.71, Hgb 13.9, Hct 42.3, MCV 89.8, MCH 29.5, MCHC 32.9, RDW Std Deviation 41.4, RDW Coeff of Kahl[place] 12.6, Plt Count 232, MPV 9.8, Immature Gran % (Auto) 0.200, Neut % (Auto) 48.4, Lymph % (Auto) 40.8, [place] % (Auto) 7.6, Eos % (Auto) 2.1, Baso % (Auto) 0.9, Absolute Neuts (auto) 2.8, Absolute Lymphs (auto) 2.32, Nucleated RBC % 0 12/05/18 06:16: Sodium 144, Potassium 4.1, Chloride 110 H, Carbon Dioxide 27.0, Anion Gap 7, BUN 18, Creatinine 0.65, Estim Creat Clear Calc 51.11, Est GFR (MDRD) Af Amer 117, Est GFR (MDRD) Non-Af 97, BUN/Creatinine Ratio 27.8 H, Glucose 97, Calcium 8.4 L, Magnesium 1.9 12/05/18 06:16: Triglycerides 99, Cholesterol 148, LDL Cholesterol 80, VLDL Cholesterol 20, HDL Cholesterol 48 Diagnostic Data Chest X-Ray 12/04/18 10:07 IMPRESSION: Normal portable chest. Electronically Signed: Reg Zuleta at 10:51 EDT Tel , Service support , Head/Neck CTA 12/05/18 12:27 IMPRESSION: Normal CTA of the Head Normal CTA of the Cervical Carotid and Vertebral Arteries. No stenosis identified. Specifically no evidence of a burden aneurysm is seen. Electronically Signed: Reg Zuleta at 14:03 EDT Tel , Service support , Current Medications Albuterol Sulfate (Ventolin Aerosols) 2.5 mg INHALATION Q4HWA.RT [facility] Last Admin: 12/05/18 11:25 Dose: Not Given Documented by: Albuterol Sulfate (Ventolin Aerosols) 2.5 mg INHALATION Q6H PRN PRN PRN Reason: SOB/WHEEZING Amiodarone HCl (Cordarone) 400 mg PO BID [facility] Last Admin: 12/05/18 13:34 Dose: 400 mg Documented by: Atorvastatin Calcium (Lipitor) 20 mg PO QHS [facility] Last Admin: 12/04/18 22:11 Dose: 20 mg Documented by: Benzonatate (Tessalon Perle) 200 mg PO TID PRN PRN PRN Reason: COUGH Budesonide (Pulmicort Aerosol) 0.5 mg INHALATION Q12H.RT [facility] Last Admin: 12/05/18 11:25 Dose: Not Given Documented by: Dextrose (D50w Syringe) 0 gm IV X1 PRN; Protocol PRN Reason: Hypoglycemia Enoxaparin Sodium (Lovenox) 70 mg SC Q12 [facility] Last Admin: 12/05/18 08:57 Dose: Not Given Documented by: Epinephrine HCl () 0.3 mg IM X1 PRN PRN Reason: ANAPHYLAXIS Fluticasone Propionate (Flonase Nasal [place]) 2 spray NASAL DAILY [facility] Last Admin: 12/05/18 11:13 Dose: 2 spray Documented by: Glucagon () 1 mg IM .X1 PRN PRN Reason: Hypoglycemia Loratadine (Claritin) 10 mg PO DAILY [facility] Last Admin: 12/05/18 11:13 Dose: 10 mg Documented by: Magnesium Oxide (Mag-Ox 400) 400 mg PO DAILY [facility] Last Admin: 12/05/18 11:14 Dose: 400 mg Documented by: Meclizine HCl (Antivert) 25 mg PO Q6H PRN PRN Reason: DIZZINESS Metoprolol Tartrate (Lopressor (Beta Ezio)) 25 mg PO BID [facility] Last Admin: 12/05/18 11:15 Dose: 25 mg Documented by: Nitrofurantoin Macrocrystals (Macrobid) 100 mg [facility] Stop: 12/07/18 17:01 Last Admin: 12/05/18 11:12 Dose: 100 mg Documented by: Nitroglycerin (Nitrostat) 0.4 mg SUBLINGUAL Q5M PRN PRN Reason: CARDIAC/CHEST PAIN Last Admin: 12/04/18 15:05 Dose: 1 tab Documented by: Pantoprazole Sodium (Protonix) 20 mg PO DAILY [facility] Last Admin: 12/05/18 11:14 Dose: 20 mg Documented by: Phenazopyridine HCl (Azo Standard) 95 mg PO TIDCM [facility] Last Admin: 12/05/18 13:34 Dose: 95 mg Documented by: Sodium Chloride () 5 - 15 ml IV UD PRN PRN Reason: SALINE FLUSH Thiamine HCl (Vitamin B1) 100 mg PO DAILY [facility] Last Admin: 12/05/18 11:14 Dose: 100 mg Documented by: Verapamil HCl (Calan Sr) 240 mg PO DAILY [facility] Last Admin: 12/05/18 11:13 Dose: 240 mg Documented by: Medical Necessity - Tobacco Use Smoking Status: Never smoker Assessment/Plan All Active Problems Chest pain, unspecified (Acute) New onset atrial fibrillation (Acute) CVA (cerebral vascular accident) (Acute) Balance problem (Acute) 68-year-old admitted with a complaint of chest pain and palpitations. 1. Chest pain troponins x 3 were negative SL nitroglycerin prn; PO aspirin 81mg daily cardiology on board had stress test today which was negative for any stress induced ischemia 2. New onset Afib with RVR currently rate controlled Mg and K wre WNL TSH was 1.46 2D echo: EF of 65%, with moderately dilated RV and RVSP estimated to be 44mmHg and mild pulmonary hypertension. RVSP of 44mmHg. CHADVASC score-4 (hypertension, TIA, female, age) neurology consulted o/a of history of aneurysm and risk of bleeding. Per neuro, CT angiogram of head and neck ordered, which was normal and showed no evidence of stenosis, or evidence of burden aneurysm per neuro, no contraindication to anticoagulation start on eliquis today on verapamil 240mg daily and lopressor 25mg bid. 3. UTI: recently diagnosed with UTI. started on nitrofurantoin. todya is day 2 of 3. 4. Asthma: Well controlled. on brething treatments. 5. GERD: Pantoprazole 6. History of migraine headaches: On verapamil. DVT prophylaxis: started on eliquis CODE STATUS: Full code Code Visit OBSV E&M: 19397 Subsequent observation care L3
--- NOTE | 2018-12-05 14:26 | CON.PCM_ITS ---
Problem List (1) Aneurysm Status: Suspected Reason for Consult Date of Consultation: 12/05/18 Reason for Consultation: Suspected aneurysm History of Present Illness: The patient is a 68 year old F 68 year old F with PMH HTN, HLD, Migriane, Asthma, 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 fib with RVR. 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 But on my review it is highly unlikely to be an aneurysm. Per patient she has had episodes of TIAs in the past, in June 2018 when she was admitted to [facility] with headache and difficulty in walking days, she was diagnosed with complicated migraine not a TIA. But per patient in July 2018 she had some speech difficulty and weakness in upper extremity and was taken to [facility] from where she was transferred to [facility] and per patient she was told that she has TIA (no records available of that hospitalization). At present patient denies any new onset of headache, dizziness, focal motor weakness, sensory loss, visual disturbances or speech disturbances. Per patient she did not take any aspirin at baseline. She denies any frequent falls. [] Past Medical History Past Medical History (Chronic Problems): Chronic Problems Asthma (Chronic) TIA (transient ischemic attack) (Chronic) HTN (hypertension) (Chronic) HLD (hyperlipidemia) (Chronic) Headache (Chronic) BMI greater than 30 (Chronic) Migraine (Chronic) GERD (gastroesophageal reflux disease) (Chronic) Asthma exacerbation (Chronic) Allergies adhesive tape Allergy (Verified 12/04/18 09:30) Rash propoxyphene HCl [From Darvon] Allergy (Verified 12/04/18 09:30) Rash sulfamethoxazole [From Bactrim] Allergy (Verified 12/04/18 09:30) Shortness of breath trimethoprim [From Bactrim] Allergy (Verified 12/04/18 09:30) Shortness of breath venom-honey bee [bee venom (honey bee)] Allergy (Verified 12/04/18 09:30) Anaphylaxis venom-wasp [wasp venom] Allergy (Verified 12/04/18 09:30) Anaphylaxis prednisone Adverse Reaction (Verified 12/04/18 09:30) Diarrhea anything that stings Allergy (Uncoded 12/04/18 09:30) Anaphylaxis banana peppers Allergy (Uncoded 12/04/18 09:30) Hives FIBERGLASS Allergy (Uncoded 12/04/18 09:30) Shortness of breath Home Medications: Ambulatory Orders Medication Instructions Recorded Epi Pen (for allergic rxn) 0.3 mg IM X1 05/04/13 Loratadine [Claritin] 10 mg PO DAILY 05/04/13 Albuterol Sulfate [Ventolin Hfa] 2 puff IH Q6H PRN PRN 12/26/15 Pantoprazole Sodium [Protonix] 20 mg PO DAILY 12/26/15 CycloSPORINE Ophthalmic [Restasis 1 drop EACH EYE DAILY 03/28/16 Ophthalmic] Fluticasone/Salmeterol [Advair 1 each IH DAILY 03/28/16 100-50 Diskus] Meclizine HCl 25 mg PO Q6H PRN 03/28/16 Atorvastatin Calcium [Lipitor] 20 mg PO DAILY 07/02/18 Fluticasone 0.05% [Flonase Nasal 2 spray NASAL DAILY 07/02/18 [place]] Verapamil HCl [Verapamil ER] 240 mg PO DAILY 07/02/18 Albuterol Aerosols [Ventolin 2.5 mg INHALATION Q4HWA.RT 12/04/18 Aerosols] Benzonatate [Tessalon Perle] 200 mg PO TID PRN PRN 12/04/18 Bifidobacter. Bifidum/B.longum 460 mg PO DAILY 12/04/18 [Florajen Bifidoblend Capsule] Nitrofurantoin Macrocrystal 100 mg PO BID 12/04/18 [Macrodantin] Phenazopyridine [Pyridium] 100 mg PO TID 12/04/18 Surgical History: - - Cholecystectomy, hysterectomy, right mastoid tumor resection. 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 She denies any known history of heart disease, diabetes or cancer. Review of Systems Constitutional: Reports: - - Complete ROS negative except as documented in HPI Patient Problems: Active and Suspected Problems Chest pain, unspecified (Acute) New onset atrial fibrillation (Acute) Aneurysm (Suspected) - Physical Exam General: Alert HEENT: Normocephalic Neck: Supple Lungs: Normal air movement Cardiovascular: Normal S1, Normal S2 Abdomen: Bowel Sounds Present Extremities: No cyanosis Neurological: Cranial nerves II-XII grossly intact, Deep Tendon Reflexes 2+/4 and Symmetrical, Neuro grossly intact, Motor Exam 5/5 strength throughout, Muscle tone normal, Sensory exam intact to light touch and pain, Coordination normal Psych/Mental Status: Normal Affect Vital Signs Temp Pulse Resp BP Pulse Ox 98.1 F 111 H 18 117/69 97 12/05/18 09:55 12/05/18 11:15 12/05/18 09:55 12/05/18 09:55 12/05/18 09:55 Oxygen Flow Rate (L/min) 2 Oxygen Delivery Method Nasal Cannula Weight: 80.7 kg Body Mass Index (BMI) 28.7 Intake and Output for Last 24 Hours 12/03/18 12/04/18 12/05/18 23:59 23:59 23:59 Intake Total 1999 / 1999 240 / 240 Output Total 1400 / 1400 Balance 600 / 600 240 / 240 Laboratory Tests Past 24 Hrs 12/04/18 12/04/18 12/04/18 09:58 14:00 16:15 WBC RBC Hgb Hct MCV MCH MCHC RDW Std Deviation RDW Coeff of Kahlil Plt Count MPV Immature Gran % (Auto) Neut % (Auto) Lymph % (Auto) Coos % (Auto) Eos % (Auto) Baso % (Auto) Absolute Neuts (auto) Absolute Lymphs (auto) Nucleated RBC % Sodium Potassium Chloride Carbon Dioxide Anion Gap BUN Creatinine Estim Creat Clear Calc Est GFR (MDRD) Af Amer Est GFR (MDRD) Non-Af BUN/Creatinine Ratio Glucose Calcium Magnesium 2.0 Troponin I < 0.015 < 0.015 Triglycerides Cholesterol LDL Cholesterol VLDL Cholesterol HDL Cholesterol TSH 1.46 12/05/18 12/05/18 12/05/18 06:16 06:16 06:16 WBC 5.7 RBC 4.71 Hgb 13.9 Hct 42.3 MCV 89.8 MCH 29.5 MCHC 32.9 RDW Std Deviation 41.4 RDW Coeff of Kahlil 12.6 Plt Count 232 MPV 9.8 Immature Gran % (Auto) 0.200 Neut % (Auto) 48.4 Lymph % (Auto) 40.8 Coos % (Auto) 7.6 Eos % (Auto) 2.1 Baso % (Auto) 0.9 Absolute Neuts (auto) 2.8 Absolute Lymphs (auto) 2.32 Nucleated RBC % 0 Sodium 144 Potassium 4.1 Chloride 110 H Carbon Dioxide 27.0 Anion Gap 7 BUN 18 Creatinine 0.65 Estim Creat Clear Calc 51.11 Est GFR (MDRD) Af Amer 117 Est GFR (MDRD) Non-Af 97 BUN/Creatinine Ratio 27.8 H Glucose 97 Calcium 8.4 L Magnesium 1.9 Troponin I Triglycerides 99 Cholesterol 148 LDL Cholesterol 80 VLDL Cholesterol 20 HDL Cholesterol 48 TSH Assessment/Plan All Active Problems Chest pain, unspecified (Acute) New onset atrial fibrillation (Acute) CVA (cerebral vascular accident) (Acute) Balance problem (Acute) The patient is a 68 year old F 68 year old F with PMH HTN, HLD, Migriane, Asthma, 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 fib with RVR. 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 But on my review it is highly unlikely to be an aneurysm. Per patient she has had episodes of TIAs in the past, in June 2018 when she was admitted to [facility] with headache and difficulty in walking days, she was diagnosed with complicated migraine not a TIA. But per patient in July 2018 she had some speech difficulty and weakness in upper extremity and was taken to [facility] from where she was transferred to [facility] and per patient she was told that she has TIA (no records available of that hospitalization). At present patient denies any new onset of headache, diz ziness, focal motor weakness, sensory loss, visual disturbances or speech disturbances. Per patient she did not take any aspirin at baseline. She denies any frequent falls. Impression Neurology consulted as patient has A. 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 Plan ?CTA head/neck during this admission reviewed?no aneurysm identified. 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 ?Patient has a questionable history of TIA. Even then patient's [id number] VASC score is at least 3. If patient needs to be on lifelong anticoagulation for her A. fib from cardiology standpoint, then at present there is no neurological contraindication for the same. Will defer anticoagulation decision and management for A. fib to cardiology Dr. Sampson and hospitalist team. ?Follow-up with neurosurgery as outpatient ?GI/DVT prophylaxis ?Fall precautions ?Further medical management per hospitalist team ?Please call with questions if any ?Thank you for allowing us to part spent in patient's care and management This note has been generated using [employer] dictation software. It may contain incorrect words, spellings and punctuation that were not noted in the review of the note prior to signing. Code Visit Inpatient E&M: 34745 Init Hosp L3
[2018-12-05 16:07] LABS: Prothrombin Time (Protime)PT. 13.2 SECONDS (11.7-14.9)
[2018-12-05] MEDS: Atorvastatin Calcium 20 MG Tablet PO (22:23)
[2018-12-05] MEDS: APIXABAN 5 MG TABLET PO (22:27)
[2018-12-06] VITALS (7 sets, daily range): BP systolic 95–117; BP diastolic 65–74; PULSE 62–84; RESP 18; TEMP 36.6–36.8; O2SAT 93–95
[2018-12-06] MEDS: Amiodarone 200 MG Tablet 400 MG PO (08:01)
[2018-12-06] MEDS: Verapamil SR 240 MG Tablet PO (08:02)
[2018-12-06] MEDS: Nitrofurantoin Macrocrystals 100 MG Capsule PO (08:02)
--- NOTE | 2018-12-06 08:02 | CPS ---
pt refused breathing tx's for the day, she takes them at home but as needed. Pt instructed to let nursing know if she would like one and they will call us to give her a tx.
[2018-12-06] MEDS: Phenazopyridine 95 MG Tablet PO ×2 (08:03→11:20)
[2018-12-06] MEDS: Loratadine 10 MG Tablet PO (08:03)
[2018-12-06] MEDS: APIXABAN 5 MG TABLET PO (08:03)
[2018-12-06] MEDS: Magnesium Oxide 400 MG Tablet PO (08:04)
[2018-12-06] MEDS: Metoprolol Tartrate 25 MG Tablet PO (08:04)
[2018-12-06] MEDS: Pantoprazole Sodium 20 MG Tablet PO (08:05)
[2018-12-06] MEDS: Fluticasone 0.05% 1 SPRAY NASAL.SRY 2 SPRAY NASAL (08:05)
[2018-12-06] MEDS: Thiamine Hydrochloride 100 MG Tablet PO (08:05)
--- NOTE | 2018-12-06 09:57 | PN.CARD_ITS ---
Subjectve: Patient feeling much better since her heart rate is better controlled. Amiodarone started yesterday. Eliquis started yesterday per Dr. Fidelina Cochran's recommendations. Objective: Vital Signs Temp Pulse Resp BP Pulse Ox 97.8 F 84 18 109/74 93 12/06/18 07:52 12/06/18 08:04 12/06/18 07:52 12/06/18 08:04 12/06/18 07:52 Oxygen Flow Rate (L/min) 1 Oxygen Delivery Method Room Air Weight: 177 lb 14.609 oz Body Mass Index (BMI) 28.7 Intake and Output for Last 24 Hours 12/04/18 12/05/18 12/06/18 23:59 23:59 23:59 Intake Total 2000 / 2000 480 / 480 480 / 480 Output Total 1400 / 1400 400 / 400 600 / 600 Balance 600 / 600 80 / 80 -120 / -120 General: Awake, Alert, Oriented x 3 HEENT: PERRL, EOMI, Sclera Non Icteric Neck: Supple, Good ROM, No Lymph Node Enlargement Lungs: Clear to auscultation Cardiovascular: Irregular Rhythm, Normal S1, Normal S2, No Murmurs, No Rubs, No Gallops Murmur Murmur: Grade 2/6, Holosystolic Vascular: No Carotid Bruits, Normal Femoral Pulses, Normal Radial Pulses, Normal Dorsalis Pedal Pulse, Normal Posterior Tibial Pulses Abdomen: Bowel Sounds Present, Soft, Non Tender, No HSM, No Organomegaly Extremities: No Cyanosis, No Clubbing, No edema Neurological: No Focal Motor or Sensory Deficit 12/05/18 15:28: PT 13.2, INR 1.0 Rhythm: EKG: ECHO: Stress Test: Cardiac Cath: PCI: CT Surgery: Holter monitor: EPS: PPM: CXR: Chest CT Scan: Medical Necessity - Tobacco Use Smoking Status: Never smoker Assessment/Plan 1. Atrial fibrillation: The patient presents with recurrent atrial fibrillation superimposed on previous TIAs in the past. 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 Patient was not currently on anticoagulation at home despite given her previous TIA and previous atrial fibrillation. She has a chads vas score of 5, and a bleeding risk of 3. The patient was supposed to see a neurosurgeon with respect to her aneurysm, but unfortunately had never done so. Patient's heart rate was not well controlled on calcium channel danielle verapamil therapy at this time. Her TSH is normal. Her troponins are negative x2. Patient underwent a 2D echo with Doppler on 12/05/2018 with the following results: Interpretation Summary The estimated ejection fraction is 65 %. Unable to assess diastolic dysfunction due to arrhythmia. Moderately dilated right ventricle. Mild (1+) mitral valve insufficiency. Mild (1+) tricuspid valve insufficiency. Right ventricular systolic pressure estimated to be 44 mmHg. Mild pulmonary hypertension. Compared to echo report dated 07/03/2018, LV function has remained the same, and RVSP has decreased from 55 to 44 mm Hg. Pt now appears to be in atrial fibrillation. In addition the patient underwent a dobutamine echocardiogram which was negative for inducible ischemia. Given the patient's normal echo and negative stress test, no catheterization was recommended. The patient was started on Eliquis 5 mg p.o. twice daily, and amiodarone 400 mg p.o. twice daily. Her heart rate is much better controlled. I recommended we continue amiodarone 400 mg p.o. twice daily for 3 days total followed by 200 mg p.o. daily. In addition we will continue her verapamil CD 24 0 mg p.o. daily. Together these 2 will control her heart rate. Once her amiodarone has loaded in for 3 weeks and her Eliquis has been on board for 3 weeks, we will proceed with DC cardioversion and attempt to resynchronize her. She will most likely require lifelong anticoagulation however. Patient will follow-up in our office in 1 week's time for an EKG to check her rhythm, rate, and QT corrected interval. 2. Hyperlipidemia: Her LDL is 80 and HDL is 48. Her LDL needs to be less than 70. Continue low-dose Lipitor 20 mill grams p.o. nightly. 3. Thank you very much for the opportunity to participate in the cardiac care of your patient. Patient may be discharged home today and follow-up with Dr. Sampson going forward. Code Visit Inpatient E&M: [id number] Subs Hosp L2
--- NOTE | 2018-12-06 10:02 | EKG12_ITS ---
Test Reason : RHYTHM Blood Pressure : / mmHG Vent. Rate : 065 BPM Atrial Rate : 357 BPM P-R Int : 000 ms QRS Dur : 080 ms QT Int : 432 ms P-R-T Axes : 000 038 026 degrees QTc Int : 449 ms Atrial fibrillation Abnormal ECG When compared with ECG of 04-DEC-2018 13:51, MANUAL COMPARISON REQUIRED, DATA IS UNCONFIRMED Confirmed by MAX BELLAMY ([id number]), editor house organ SOFIA ARREDONDO ([id number]) on 12/11/2018 10:41:31 AM Referred By: Maxine Griffin Confirmed By:MAX BELLAMY
--- NOTE | 2018-12-06 10:49 | DCINST_ITS ---
- Discharge Diagnoses Current Active Problems: Current Active and Chronic Problems Chest pain, unspecified (Acute) New onset atrial fibrillation (Acute) You will use the following diet at home:: Cardiac Your food should be the consistency of: Regular Your liquids should be the consistency of: Regular/Thin Discharge Activity: Return to Normal Activity Weight Bearing Status: Weight bearing as tolerated Call your doctor if you observe: Shortness of breath, Dizziness, Fainting spells, Increased palpitations (irregular heartbeat) Instructions: Atrial Fibrillation, Apixaban Oral tablet Allergies/Adverse Reactions: Allergies adhesive tape Allergy (Verified 12/04/18 09:30) Rash propoxyphene HCl [From Darvon] Allergy (Verified 12/04/18 09:30) Rash sulfamethoxazole [From Bactrim] Allergy (Verified 12/04/18:30) Shortness of breath trimethoprim [From Bactrim] Allergy (Verified 12/04/18 09:30) Shortness of breath venom-honey bee [bee venom (honey bee)] Allergy (Verified 12/04/18 09:30) Anaphylaxis venom-wasp [wasp venom] Allergy (Verified 12/04/18 09:30) Anaphylaxis prednisone Adverse Reaction (Verified 12/04/18 09:30) Diarrhea anything that stings Allergy (Uncoded 12/04/18 09:30) Anaphylaxis banana peppers Allergy (Uncoded 12/04/18 09:30) Hives FIBERGLASS Allergy (Uncoded 12/04/18 09:30) Shortness of breath Medications to take at Discharge Epi Pen (for allergic rxn) 0.3 mg IM X1 05/04/13 Loratadine [Claritin] 10 mg PO DAILY 05/04/13 Albuterol Sulfate [Ventolin Hfa] 2 puff IH Q6H PRN PRN 12/26/15 Pantoprazole Sodium [Protonix] 20 mg PO DAILY 12/26/15 CycloSPORINE Ophthalmic [Restasis Ophthalmic] 1 drop EACH EYE DAILY 03/28/16 Fluticasone/Salmeterol [Advair 100-50 Diskus] 1 each IH DAILY 03/28/16 Meclizine HCl 25 mg PO Q6H PRN 03/28/16 Atorvastatin Calcium [Lipitor] 20 mg PO DAILY 07/02/18 Fluticasone 0.05% [Flonase Nasal [place]] 2 spray NASAL DAILY 07/02/18 Albuterol Aerosols [Ventolin Aerosols] 2.5 mg INHALATION Q4HWA.RT 12/04/18 Benzonatate [Tessalon Perle] 200 mg PO TID PRN PRN 12/04/18 Bifidobacter. Bifidum/B.longum [Florajen Bifidoblend Capsule] 460 mg PO DAILY 12/04/18 Phenazopyridine [Pyridium] 100 mg PO TID 12/04/18 Amiodarone HCl [Cordarone] 200 mg PO UD #30 tab 12/06/18 Apixaban [Eliquis] 5 mg PO BID #60 tab 12/06/18 Metoprolol Tartrate [Lopressor (beta danielle)] 25 mg PO BID #60 tab 12/06/18 Verapamil HCl [Verapamil ER] 240 mg PO DAILY #30 tablet.er 12/06/18 The following prescriptions were given: Amiodarone HCl [Cordarone] 200 mg PO UD #30 tab Transmission Status: Pending to [facility]/pharmacy #[id number] Apixaban [Eliquis] 5 mg PO BID #60 tab Transmission Status: Pending to [facility]/pharmacy #[id number] Metoprolol Tartrate [Lopressor (beta danielle)] 25 mg PO BID #60 tab Transmission Status: Pending to [facility]pharmacy #[id number] Verapamil HCl [Verapamil ER] 240 mg PO DAILY #30 tablet.er Transmission Status: Pending to [facility]/pharmacy #[id number] Primary Care Physician: Paul Reynolds MD [Primary Care Provider] - Please follow up with your Primary Care Physician in: one week Test Results: Test results from this visit will be discussed in further detail at your follow- up appointment, if applicable. Please Follow Up With: Ludwin Sampson MD When: 2 weeks; call office for appointment Please Follow Up With: Ludwin Sampson MD Proposed Discharge Date: 12/06/18
--- NOTE | 2018-12-06 10:52 | DS.PCM_ITS ---
Discharge Date and Diagnosis - Problem List Patient Problems: Active and Suspected Problems Chest pain, unspecified (Acute) New onset atrial fibrillation (Acute) Aneurysm (Suspected) Date of Admission: 12/04/18 Date of Discharge: 12/06/18 - Primary Discharge Diagnosis Active and Suspected Problems Chest pain, unspecified (Acute) New onset atrial fibrillation with RVR(Acute) Aneurysm (Suspected) - Secondary Discharge Diagnosis Chronic Problems Asthma (Chronic) TIA (transient ischemic attack) (Chronic) HTN (hypertension) (Chronic) HLD (hyperlipidemia) (Chronic) Headache (Chronic) BMI greater than 30 (Chronic) Migraine (Chronic) GERD (gastroesophageal reflux disease) (Chronic) Asthma exacerbation (Chronic) Hospital Course and Treatment Imaging Results: Diagnostic Data Chest X-Ray 12/04/18 10:07 IMPRESSION: Normal portable chest. Electronically Signed: Reg Song, at 10:51 EDT Tel , Service support , Head/Neck CTA 12/05/18 12:27 IMPRESSION: Normal CTA of the Head Normal CTA of the Cervical Carotid and Vertebral Arteries. No stenosis identified. Specifically no evidence of a burden aneurysm is seen. Electronically Signed: Reg Zuleta, at 14:03 EDT Tel , Service support , Operations: None Procedures: 2-D Echocardiogram, Stress test Summary of Care Provided: The patient is a 68 year old F with a past medical history as listed. She was admitted through the ED on 12/04/2017 with a complaint of chest pain which started the day before admission and palpitation was started on the day of admission. Patient states started having pressure-like chest pain which radiated to her left arm and the side of her neck. She subsequently started feeling her heart beating rapidly and so she decided to come into the ED as she had not had such symptoms before. She does have a history of A. fib. She denied any lightheadedness or dizziness. Review of systems is otherwise negative. In the ED, EKG done showed A. fib with a heart rate of 123 which is currently came down with a bolus of Cardizem. Initial troponin was negative and chest x-ray showed no acute cardiopulmonary process. CBC was otherwise unremarkable and BMP was also unremarkable. EKG showed A. fib with RVR. She was admitted to be managed for chest pain to rule out ACS and new onset A. fib with RVR. She was given a dose of lovenox and cardizem bolus. Heart rate improved. Cardiology was consulted. TSH was within normal limits. She had 2D echo showed EF of 65% with moderately dilated right ventricle and RVSP of 44 mmHg. She was started on verapamil and Lopressor. She had a stress test which was negative for any stress-induced ischemia. Neurology was consulted on account of question of aneurysm which could preclude patient being placed on anticoagulants. CT angiogram of the head and neck were ordered which were normal and showed no evidence of any aneurysm or stenosis. Based on neurology recommendation that there was no contraindication to anti-coagulation, patient was started on Eliquis. Patient remained stable and was discharged home on 12/06/2018 with a prescription for p.o. Eliquis, p.o. amiodarone, verapamil and metoprolol. She is to take verapamil 400 mg twice daily until 12/07/2018 and to continue with 200 mg daily from 12/08/2018. She is to follow-up with cardiology when she is loaded with albuterol for evaluation to be made as to whether to have DC cardioversion or otherwise. She is to follow-up with her primary care doctor and cardiology. Patient's CHADVASC-2 score was at least 4 and she was counseled that she would need anticoagulation most likely for the rest of her life. Patient seen and examined prior to discharge. She had no complaints and felt well. Review of systems is otherwise negative. Labs and vitals reviewed. Home medications reviewed and reconciled. o/e: Vital Signs Height 5 ft 6 in Weight: 177 lb 14.609 oz Weight in Pounds 177.9 lbs Pulse Ox 93 Temperature 98.0 F Pulse Rate 66 Respiratory Rate 18 Blood Pressure [BP] 108/46 Blood Pressure 103/65 Blood Pressure Position [BP] Semi-Fowlers Blood Pressure Position Sitting General: Alert, Oriented x3, Cooperative, No apparent distress HEENT: Atraumatic, PERRLA, EOMI, Normocephalic Oral: Moist Mucosa Neck: Supple, No JVD, Negative Carotid Bruits Lungs: Clear to auscultation, Normal air movement, No rhonchi, No wheeze, No rales Cardiovascular: Normal S1, Normal S2, No murmurs, Irregular Rate - and irregular rhythm; Afib rate controlled Abdomen: Bowel Sounds Present, Soft, Non Tender, Non-Distended, No Hepato-s plenomegaly Extremities: No clubbing, No cyanosis, No edema, Capillary Refill Less than 3 Seconds Skin: No rashes, No breakdown Musculoskeletal: No Tenderness to Palpation of Joints or Extremities Lymphatic: No Cervical, Supraclavicular, or Inguinal Adenopathy Neurological: Cranial nerves II-XII grossly intact, Neuro grossly intact, Motor Exam 5/5 strength throughout Psych/Mental Status: Normal Affect, Appropriate, Alert and oriented to time, yuniel ce, person, mood and affect Plan as above. Patient Problems: Active and Suspected Problems Chest pain, unspecified (Acute) New onset atrial fibrillation (Acute) Aneurysm (Suspected) - Physical Exam Vital Signs Temp Pulse Resp BP Pulse Ox 97.8 F 84 18 109/74 93 12/06/18 07:52 12/06/18 08:04 12/06/18 07:52 12/06/18 08:04 12/06/18 07:52 Oxygen Flow Rate (L/min) 1 Oxygen Delivery Method Room Air Weight: 177 lb 14.609 oz Body Mass Index (BMI) 28.7 Intake and Output for Last 24 Hours 12/04/18 12/05/18 12/06/18 23:59 23:59 23:59 Intake Total 2000 / 2000 480 / 480 480 / 480 Output Total 1400 / 1400 400 / 400 600 / 600 Balance 600 / 600 80 / 80 -120 / -120 Laboratory Tests Past 24 Hrs 12/05/18 15:28 PT 13.2 INR 1.0 Discharge Diet: Low fat/ Low Cholesterol Discharge Activity: Return to Normal Activity Weight Bearing Status: Weight bearing as tolerated Call your doctor if you observe: Shortness of breath, Dizziness, Fainting spells, Increased palpitations (irregular heartbeat) Home Medications: Medications to take at Discharge Epi Pen (for allergic rxn) 0.3 mg IM X1 05/04/13 Loratadine [Claritin] 10 mg PO DAILY 05/04/13 Albuterol Sulfate [Ventolin Hfa] 2 puff IH Q6H PRN PRN 12/26/15 Pantoprazole Sodium [Protonix] 20 mg PO DAILY 12/26/15 CycloSPORINE Ophthalmic [Restasis Ophthalmic] 1 drop EACH EYE DAILY 03/28/16 Fluticasone/Salmeterol [Advair 100-50 Diskus] 1 each IH DAILY 03/28/16 Meclizine HCl 25 mg PO Q6H PRN 03/28/16 Atorvastatin Calcium [Lipitor] 20 mg PO DAILY 07/02/18 Fluticasone 0.05% [Flonase Nasal [place]] 2 spray NASAL DAILY 07/02/18 Albuterol Aerosols [Ventolin Aerosols] 2.5 mg INHALATION Q4HWA.RT 12/04/18 Benzonatate [Tessalon Perle] 200 mg PO TID PRN PRN 12/04/18 Bifidobacter. Bifidum/B.longum [Florajen Bifidoblend Capsule] 460 mg PO DAILY 12/04/18 Phenazopyridine [Pyridium] 100 mg PO TID 12/04/18 Amiodarone HCl [Cordarone] 200 mg PO UD #30 tab 12/06/18 Apixaban [Eliquis] 5 mg PO BID #60 tab 12/06/18 Metoprolol Tartrate [Lopressor (beta danielle)] 25 mg PO BID #60 tab 12/06/18 Ondansetron [Zofran] 8 mg PO Q8H PRN PRN #30 tab 12/06/18 Verapamil HCl [Verapamil ER] 240 mg PO DAILY #30 tablet.er 12/06/18 Following Prescrptions Were Given to Patient: Amiodarone HCl [Cordarone] 200 mg PO UD #30 tab Transmission Status: Received by [id number] Apixaban [Eliquis] 5 mg PO BID #60 tab Transmission Status: Received by [id number] Metoprolol Tartrate [Lopressor (beta danielle)] 25 mg PO BID #60 tab Transmission Status: Received by [id number] Verapamil HCl [Verapamil ER] 240 mg PO DAILY #30 tablet.er Transmission Status: Received by [id number] Ondansetron [Zofran] 8 mg PO Q8H PRN PRN #30 tab PRN Reason: Nausea Transmission Status: Pending to [id number] Primary Care Physician: Paul Reynolds MD [Primary Care Provider] - Please follow up with your Primary Care Physician in: one week Please Follow Up With: Ludwin Sampson MD When: 2 weeks; call office for appointment Please Follow Up With: Ludwin Sampson MD Patient Instructions: Apixaban Oral tablet, Atrial Fibrillation Disposition: Home Minutes spent on discharge:: 45 Patient Condition:: Stable Medical Necessity - Tobacco Use Smoking Status: Never smoker Meaningful Use Info Meaningful Use Diagnoses (Choose all that apply): None applicable Code Visit Inpatient E&M: 88277 Disch Hosp
--- NOTE | 2018-12-06 11:09 | CASEMGMT ---
Pt to be sent home on Eliquis and med [facility]. Call to [facility] pharmacist and she states that med is covered and that co-pay is $47 at this time. Pt updated at this time and provided with 30 day free trial Eliquis card with instruction at this time. Pt states that she will not be able to afford that co-pay and advised her to notify cardiology office when she f/u's with Dr. Sampson on 12/13/18, pt voices understanding. Pt voices no further questions/concerns/needs at this time. Asha RN CM
--- NOTE | 2018-12-06 12:20 | PCM.PN.NEU ---
Patient Problems: Active and Suspected Problems Chest pain, unspecified (Acute) New onset atrial fibrillation (Acute) Aneurysm (Suspected) Subjective: No issues overnight. Care discussed with the hospitalist team. CTA head/neck report discussed with the patient. Does not show any aneurysm - Physical Exam General: Alert HEENT: Normocephalic Oral: Moist Mucosa Neck: Supple Lungs: Normal air movement Cardiovascular: Normal S1, Normal S2 Abdomen: Bowel Sounds Present Extremities: No cyanosis Neurological: Cranial nerves II-XII grossly intact, Deep Tendon Reflexes 2+/4 and Symmetrical, Neuro grossly intact, Motor Exam 5/5 strength throughout, Muscle tone normal, Sensory exam intact to light touch and pain, Coordination normal Psych/Mental Status: Normal Affect Vital Signs Temp Pulse Resp BP Pulse Ox 97.8 F 84 18 109/74 93 12/06/18 07:52 12/06/18 08:04 12/06/18 07:52 12/06/18 08:04 12/06/18 07:52 Oxygen Flow Rate (L/min) 1 Oxygen Delivery Method Room Air Weight: 80.7 kg Body Mass Index (BMI) 28.7 Intake and Output for Last 24 Hours 12/04/18 12/05/18 12/06/18 23:59 23:59 23:59 Intake Total 2000 / 2000 480 / 480 480 / 480 Output Total 1400 / 1400 400 / 400 600 / 600 Balance 600 / 600 80 / 80 -120 / -120 Laboratory Tests Past 24 Hrs 12/05/18 15:28 PT 13.2 INR 1.0 Medical Necessity - Tobacco Use Smoking Status: Never smoker Assessment/Plan All Active Problems Chest pain, unspecified (Acute) New onset atrial fibrillation (Acute) CVA (cerebral vascular accident) (Acute) Balance problem (Acute) The patient is a 68 year old F 68 year old F with PMH HTN, HLD, Migriane, Asthma, 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 fib with RVR. 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 But on my review it is highly unlikely to be an aneurysm. Per patient she has had episodes of TIAs in the past, in June 2018 when she was admitted to [facility] with headache and difficulty in walking days, she was diagnosed with complicated migraine not a TIA. But per patient in July 2018 she had some speech difficulty and weakness in upper extremity and was taken to [facility] from where she was transferred to [facility] and per patient she was told that she has TIA (no records available of that hospitalization). At present patient denies any new onset of headache, dizziness, focal motor weakness, sensory loss, visual disturbances or speech disturbances. Per patient she did not take any aspirin at baseline. She denies any frequent falls. Impression Neurology consulted as patient has A. 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 Plan ?CTA head/neck during this admission reviewed?no aneurysm identified. 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 ?Patient has a questionable history of TIA. Even in the absence of TIA in the past patient's [id number] VASC score is at least 3. If patient needs to be on lifelong anticoagulation for her A. fib from cardiology standpoint, then at present there is no neurological contraindication for the same. Will defer anticoagulation decision and management for A. fib to cardiology Dr. Sampson and hospitalist team. Started on Eliquis 5 mg p.o. twice daily hospitalist team/cardiology. Bleeding risk discussed with the patient. ?Follow-up with neurosurgery as outpatient ?GI/DVT prophylaxis ?Fall precautions ?Further medical management per hospitalist team ?Please call with questions if any ?Thank you for allowing us to part spent in patient's care and management This note has been generated using [employer] dictation software. It may contain incorrect words, spellings and punctuation that were not noted in the review of the note prior to signing.
[2018-12-06] MEDS: Ondansetron ODT 4 MG Tablet 8 MG PO (14:02)
== END 2018-12-06 10:50 | disposition other institution (70) ==
LOC: ED 10:32 → PCU 13:19
PROVIDERS: Internal Medicine Cardiovascular Disease; Admitting Provider Student in an Organized Health Care Education/Training Program; Emergency Provider Emergency Medicine; Family Provider Family Medicine; PCP Family Medicine; Referring Provider Student in an Organized Health Care Education/Training Program; Visit Provider Student in an Organized Health Care Education/Training Program
DX: R07.89 Other chest pain (principal); N39.0 Urinary tract infection, site not specified; I48.0 Paroxysmal atrial fibrillation; J45.909 Unspecified asthma, uncomplicated; K21.9 Gastro-esophageal reflux disease without esophagitis; I10 Essential (primary) hypertension; I08.1 Rheumatic disorders of both mitral and tricuspid valves; R42 Dizziness and giddiness; E78.5 Hyperlipidemia, unspecified; R00.2 Palpitations; G43.909 Migraine, unspecified, not intractable, without status migrainosus; Z79.899 Other long term (current) drug therapy; Z79.51 Long term (current) use of inhaled steroids
CPT/HCPCS: 36415; 70496; 70498; 71045; 80048; 80061; 83735; 84443; 84484; 85025; 85610; 93005; 93017; 93306; 93350; 94640; 96372; 96374; 96375; 97110; 97162; 97166; 97530; 97535; 99218; 99285; J7030; J7040; Q9957; Q9967; A4216; C8928; G0378; J2405

== ENCOUNTER 2018-12-11 08:44 | Emergency (ER) | payer MEDICARE, SELFPAY ==
[2018-12-04 13:24] VITALS: BMI 28.7
[2018-12-11 08:45] VITALS: BP 123/76; PULSE 70; RESP 16; TEMP 36.6; O2SAT 92; BMI 28.2
[2018-12-11 08:48] VITALS: TEMP 36.6
--- NOTE | 2018-12-11 08:54 | EKG12_ITS ---
Test Reason : CP Blood Pressure : / mmHG Vent. Rate : 068 BPM Atrial Rate : 068 BPM P-R Int : 166 ms QRS Dur : 080 ms QT Int : 438 ms P-R-T Axes : 069 041 056 degrees QTc Int : 465 ms Normal sinus rhythm Normal ECG Confirmed by ANNELIESE ALLEN, CARLEEN ([id number]), manuscript editor DERECK ALBA ([id number]) on 12/18/2018 10:58:50 AM Referred By: AGUILAR/MARK ANTHONY Confirmed By:HORTENCIA COY MD
--- NOTE | 2018-12-11 08:54 | CT_ITS ---
STUDY: CTA CHEST REASON FOR EXAM: Female, 68 years old. Chest pain, shortness of breath and cough. RADIATION DOSAGE (If Supplied By Facility): CTDIvol = ( 14.08 ) mGy, DLP = ( 428.18 ) mGycm TECHNIQUE: The examination was performed with the intravenous administration of IV Isovue 370 100mL. Post-processing of the angiographic images was performed, with multiplanar reformation and 3D reconstruction. Individualized dose optimization techniques were used for this CT. COMPARISON: None. FINDINGS: Normal enhancement of the main pulmonary artery and right and left pulmonary arteries. Normal enhancement of the bilateral peripheral pulmonary arteries. There is no demonstrated pulmonary embolism. Normal thoracic aorta and visualized great vessels. There is no demonstrated aortic dissection. Normal heart and pericardium. Normal mediastinum. Normal hilar regions. Normal visualized trachea and bronchi. The lungs are well expanded. Minimal increased markings in the anterior aspect of the lingular segment of the left upper lobe suggestive of atelectasis. Mild degree of increased interstitial markings at the lung bases. Normal pleura. Normal chest wall structures. There are degenerative changes of thoracic spine. Normal visualized upper abdomen. CT/CTA Chest W/WO Contrast IMPRESSION: Mild degree of increased interstitial markings at the lung bases. Minimal atelectasis in the lingular segment of the left upper lobe. Electronically Signed: Magdiel Cheung, at 10:06 EDT , Service support ,
[2018-12-11] MEDS: 0.9% Normal Saline 1,000 ML 1000 ML IV (09:03)
[2018-12-11] MEDS: Aspirin 81 MG TAB.CHEW 324 MG PO (09:03)
[2018-12-11] MEDS: Morphine 4 MG/ML Syringe IV (09:03)
[2018-12-11] MEDS: Ondansetron 4 MG/2 ML Vial IV (09:03)
[2018-12-11 09:08] LABS: Absolute Lymphocyte Count 0.94 X10^3/uL (0.83-4.51); Absolute Neutrophil Count 8.3 X10^3/uL (2.0-7.7); Basophil# 0.03 X10^3/uL; Basophil% 0.3 % (0-1); Eosinophil# 0.33 X10^3/uL; Eosinophils% 3.2 % (0-5); Hematocrit 40.7 % (37-47); Hemoglobin 13.5 g/dL (12.0-15.0); Lymphocyte # 0.94 X10^3/ul (4.0); Mean Corp Hgb Conc 33.2 g/dL (32-36); Mean Corpuscular Hgb 29.6 pg (27.0-32.0); Mean Corpuscular Volume 89.3 fL (81-99); Mean Platelet Vol. 10.3 fl (6.2-12.0); Monocyte# 0.76 X10^3/uL; Monocyte% 7.3 % (0-10); NRBC Flagged by Analyzer 0 % (0-5); Neutrophil # 8.33 X10^3/uL (2.7-7.7); Neutrophil % 79.8 % (47-70); Platelet Count 228 K/mm3 (150-450); RBC Distribution Width CV 12.3 % (11.6-14.6); RBC Distribution Width SD 39.9 fl (35.1-43.9); Red Blood Count 4.56 M/mm3 (4.2-5.4); White Blood Count 10.4 K/mm3 (4.4-11.0)
[2018-12-11 09:21] LABS: Anion Gap 4 (5-15); BUN 16 mg/dL (7-18); BUN/Creat Ratio 22.3 RATIO (10-20); Calcium,Total 8.8 mg/dL (8.5-10.1); Chloride 109 mmol/L (98-107); Creatinine, Serum 0.72 mg/dL (0.55-1.02); EST Glomerular Filtration Rate 86 mL/min (>60); Est Glom Filt Rate - Afr Amer 104 mL/min (>60); Estimated Creatinine Clearance 51.11 ml/min; Glucose 112 mg/dL (74-106); Potassium 3.4 mmol/L (3.5-5.1); Sodium Level 141 mmol/L (136-145)
--- NOTE | 2018-12-11 10:40 | ED.DCSUM_ITS ---
- ER Visit Summary Date of Service: 12/11/18 Chief Complaint: Pain History of Present Illness: The patient is a 68 F with chest pain that started yesterday evening. It came on gradually. It feels like a tightness. Associated with cough. No other associated symptoms. Patient has a history of atrial fibrillation and asthma. She was recently admitted for these. She was discharged on Sunday. She has been compliant with Eliquis and amiodarone. No history of coronary disease. She had an unremarkable stress test. Physical Examination: Afebrile and vital signs unremarkable. Alert and oriented. No acute distress. Heart regular. Lungs clear. Skin normal. Calves soft and supple. Test Results: EKG showed sinus rhythm at a rate of 68. CBC unremarkable. Potassium 3.4. Troponin normal. CT chest showed mild interstitial markings and left upper lobe atelectasis. Emergency Department Course and Treatment: Patient presents for continued chest tightness. She has a borderline oxygen, 92% on room air. History of asthma, but she is not wheezing today. No sputum or fever. She also has a history of atrial fibrillation and is on Eliquis and amiodarone. She is currently in sinus rhythm. No sign of acute ischemia or infarction pattern. Troponin normal. On reevaluation, the patient was feeling comfortable. No chest tightness or shortness of breath. I do not believe this is asthma or cardiac in etiology. There is no sign of PE or aortic disease. I believe the patient is appropriate for outpatient care. She was discussed with Dr. Sampson who had no further orders. Patient will be discharged. Treatment Plan: As above Disposition: Discharged Impression: 1. Atypical chest pain This note was generated with [employer] dictation software. It may contain incorrect words, spelling, and punctuation that were not noted in review of the chart prior to signing ED Disposition - Plan for ED Patient: Referrals: Paul Reynolds MD [Primary Care Provider] -
--- NOTE | 2018-12-11 10:43 | ED.DEP ---
ED Disposition - Plan for ED Patient: Instructions: CHEST PAIN, Noncardiac (Child) Referrals: Paul Reynolds MD [Primary Care Provider] -
[2018-12-11 10:53] VITALS: BP 115/73; PULSE 63; RESP 18; O2SAT 96
--- NOTE | 2018-12-11 10:58 | ED.RN ---
SEPSIS SCREENING NOT NEEDED PER
[2018-12-11 10:59] VITALS: BP 115/73; PULSE 63; RESP 18; O2SAT 96
[2018-12-11] MEDS: DiphenhydrAMINE 25 MG Capsule PO (11:35)
== END 2018-12-11 11:36 | disposition home or self-care (01) ==
PROVIDERS: Emergency Provider Emergency Medicine; Family Provider Family Medicine; PCP Family Medicine
DX: R07.89 Other chest pain (principal); I48.91 Unspecified atrial fibrillation; I10 Essential (primary) hypertension; J45.909 Unspecified asthma, uncomplicated; K21.9 Gastro-esophageal reflux disease without esophagitis; Z79.82 Long term (current) use of aspirin; Z79.01 Long term (current) use of anticoagulants; Z79.899 Other long term (current) drug therapy; Z86.73 Personal history of transient ischemic attack (TIA), and cerebral infarction without residual deficits
CPT/HCPCS: 71275; 80048; 84484; 85025; 93005; 99285; J7030; Q9967; A4216; J2405

== ENCOUNTER 2018-12-12 07:32 | Inpatient (IN) | payer MEDICARE, SELFPAY ==
[2018-12-11 08:45] VITALS: BMI 28.2
[2018-12-12] VITALS (17 sets, daily range): BP systolic 115–147; BP diastolic 2–84; PULSE 75–145; RESP 18–92; TEMP 36.6–37.8; O2SAT 88–96; BMI 30.1
--- NOTE | 2018-12-12 07:57 | EKG12_ITS ---
Test Reason : COUGH Blood Pressure : / mmHG Vent. Rate : 126 BPM Atrial Rate : 141 BPM P-R Int : 000 ms QRS Dur : 076 ms QT Int : 326 ms P-R-T Axes : 000 038 -54 degrees QTc Int : 472 ms Atrial fibrillation with rapid ventricular response Nonspecific ST and T wave abnormality Abnormal ECG Confirmed by ANNELIESE ALLEN, CARLEEN ([id number]), assignment desk editor DERECK ALBA ([id number]) on 12/18/2018 10:57:17 AM Referred By: Agustín Viramontes Confirmed By:HORTENCIA COY MD
--- NOTE | 2018-12-12 08:00 | RAD_ITS ---
STUDY: X-RAY CHEST REASON FOR EXAM: Female, 68 years old. Hypoxia. Cough. Wheezing. TECHNIQUE: Single AP portable view of the chest. COMPARISON: December 04, 2018. FINDINGS: Cardiac silhouette unremarkable. Mild vascular congestion. Aorta unremarkable. Mild hazy airspace disease. Left lower lung airspace disease. No significant pleural effusions. Coarse lung markings. Upper abdomen unremarkable. Osseous structures are demineralized. No pneumothorax. Degenerative changes at the shoulders and spine. RAD/Chest 1 View (Portable) IMPRESSION: Left lower lung airspace disease (suspected infection/pneumonia) Underlying COPD Electronically Signed: Nilo Khanna DO at 8:19 EDT Tel , Service support ,
--- NOTE | 2018-12-12 08:02 | ED.VIS.GEN ---
History of Present Illness Chief Complaint: Cough Detail of Chief Complaint: Shortness of breath, fever, rash Informant: Patient Onset: Days Context: Gradual Onset Timing: Continuous Quality: Upper respiratory symptoms with rash Location: Respiratory and abdomen and extremities Current Severity: Moderate Maximum Severity: Severe Worsened by: Dyspnea with exertion, unknown regarding rash Relieved by: Nothing Associated Symptoms: Fever and chills Narrative: Patient is an elderly woman who was recently admitted for atrial fibrillation and chest pain. She was admitted on the and discharged on the . She was placed on Eliquis and amiodarone for the new onset A. fib. She was seen yesterday for cough and chest pain. She states her symptoms got worse. She is now complains of fever with chills. Cough that is productive. She reports dyspnea, dyspnea with exertion and wheezing. Per review of old records she has history of asthma. She denies ocular, visual or auditory symptoms. She complains of mild nasal congestion. She denies ringing or ears, decreased hearing or ear pain. She denies chest pain. She denies vomiting or diarrhea. She does complain of nausea. She denies urologic symptoms. She states she was recently admitted for UTI. She states she noted the rash yesterday after she was discharged. Rash initially was on the lower extremities and spread to her abdomen. She was unaware until examination that she had rash upper extremities as well. Her graph she reports allergy to sulfamethoxazole. Prior similar symptoms: No Recent Illness/Hospitalization: Yes - Past Medical History (1) CVA (cerebral vascular accident) Status: Acute (2) New onset atrial fibrillation Status: Acute (3) Asthma Status: Chronic (4) BMI greater than 30 Status: Chronic (5) GERD (gastroesophageal reflux disease) Status: Chronic (6) HLD (hyperlipidemia) Status: Chronic (7) HTN (hypertension) Status: Chronic (8) Migraine Status: Chronic Past Medical History - Allergies and Home Meds Allergies/Adverse Reactions: Allergies adhesive tape Allergy (Verified 12/12/18 07:39) Rash propoxyphene HCl [From Darvon] Allergy (Verified 12/12/18 07:39) Rash sulfamethoxazole [From Bactrim] Allergy (Verified 12/12/18 07:39) Shortness of breath trimethoprim [From Bactrim] Allergy (Verified 12/12/18 07:39) Shortness of breath venom-honey bee [bee venom (honey bee)] Allergy (Verified 12/12/18 07:39) Anaphylaxis venom-wasp [wasp venom] Allergy (Verified 12/12/18 07:39) Anaphylaxis prednisone Adverse Reaction (Verified 12/12/18 07:39) Diarrhea anything that stings Allergy (Uncoded 12/12/18 07:39) Anaphylaxis banana peppers Allergy (Uncoded 12/12/18 07:39) Hives FIBERGLASS Allergy (Uncoded 12/12/18 07:39) Shortness of breath Primary Care Physician: Paul Reynolds MD [Primary Care Provider] - Prior records reviewed: Yes Surgical History: - - Cholecystectomy, hysterectomy, right mastoid tumor resection. Lives: Alone Smoking Status: Never smoker Alcohol: None Drugs: None - Family History Paternal Family History: Reports: Heart Disease Maternal Family History: Reports: Unknown - Patient notes that she does not know any maternal history, mother never went to the doctor. She denies any known history of heart disease, diabetes or cancer. Review of Systems General: Reports: Chills, Fever, Malaise. Denies: Subjective, Sweats, Weight loss Eyes: Denies: Visual changes - bilaterally, Blurred Vision - bilaterally, Diplopia ENT: Reports: Rhinorrhea. Denies: Bilateral ear pain, Sore throat Cardiovascular: Denies: Chest pain, Palpitations Respiratory: Reports: Dyspnea, Cough, Sputum, Dyspnea on exertion. Denies: Orthopnea, Paroxysmal nocturnal dyspnea Gastrointestinal: Reports: Nausea. Denies: Abdominal pain, Vomiting, Diarrhea, Constipation, Melena, Hematochezia, -, - Genitourinary: Denies: Dysuria, Hematuria, Frequency Musculoskeletal: Denies: Myalgias, Arthralgias, Neck pain, Back pain, Swelling, Extremity Pain, -, - Skin: Reports: Rash. Denies: Wounds Neurological: Reports: Headache, Weakness. Denies: Parasthesia, Numbness Endocrine: Denies: Polyuria, Polydipsia Hematologic: Denies: Easy bruising, Easy bleeding Allergy: Denies: Uticaria Physical Exam Vital Signs/Narrative: Vital Signs Temp Pulse Resp BP Pulse Ox 12/12/18 07:33 100.0 F H 89 20 H 147/74 H 88 Inital Vital Signs reviewed: Yes - Patient appears ill. Heart rate on monitor is 130 and appears to be A. fib General: Well nourished, Well developed, Obese, Acute Distress Head: Normocephalic, Atraumatic Eyes: Perrl, EOMI. Negative for: Pale conjunctiva, Scleral icterus ENT: No rhinorrhea, TM's clear, Dry mucous membranes Neck: Supple, Nontender, No lymphadenopathy, No JVD Cardiovascular: No murmurs, Tachycardia Respiratory: Chest nontender, Wheezing, Diminished, Decreased Air Movement, - - There is use of accessory muscles. The expiratory phase is increased. Abdomen: Soft, Nontender, Nondistended, Normal bowel sounds, No masses Rectal: Deferred Back: Nontender, Normal Inspection Extremities: Nontender, No edema. Negative for: Calf Tenderness Skin: Normal color, No Trauma, Rash - Blanching macular erythematous rash.. Negative for: Cyanosis, Diaphoresis, Jaundice Neurological: Alert, Oriented x3, Cranial nerves II-XII grossly intact, Normal Strength, Normal Sensation Psychological: Normal affect, Normal Mood Diagnostic/Tx/Re-eval Chest X-Ray - ED: 1 View, Read by ED Physician, Normal, Heart, Mediastinum, Bony Structures, - - There is an infiltrate noted in the left lower lobe. There is also increased interstitial markings in the right lower lobe. These are new findings since December 04. Time interpretation 08 Impressions Chest X-Ray 12/12/18 08:00 IMPRESSION: Left lower lung airspace disease (suspected infection/pneumonia) Underlying COPD Electronically Signed: Nilo Khanna DO at 8:19 EDT Tel , Service support , 12/12/18 08:00 Chest 1 View (Portable) [RAD] Stat Laboratory Results 12/12/18 12/12/18 12/12/18 07:50 07:50 07:57 WBC 13.8 H RBC 4.48 Hgb 13.1 Hct 40.0 MCV 89.3 MCH 29.2 MCHC 32.8 RDW Std Deviation 40.5 RDW Coeff of Kahlil 12.4 Plt Count 207 MPV 10.0 Immature Gran % (Auto) 0.700 Neut % (Auto) 82.3 H Lymph % (Auto) 5.2 L Sutter % (Auto) 8.7 Eos % (Auto) 3.0 Baso % (Auto) 0.1 Absolute Neuts (auto) 11.3 H Absolute Lymphs (auto) 0.72 L Nucleated RBC % 0 PT 18.3 H INR 1.5 APTT 35.6 Specimen Type Sample Site pH Bicarbonate Actual POC Total CO2 Base Excess O2 Saturation ABG pCO2 ABG pO2 Mariano Test O2 Delivery Device Liter Flow Blood Gas Notified Whom Blood Gas Notified Time Sodium 142 Potassium 3.4 L Chloride 110 H Carbon Dioxide 25.0 Anion Gap 7 BUN 11 Creatinine 0.70 Estim Creat Clear Calc 51.11 Est GFR (MDRD) Af Amer 107 Est GFR (MDRD) Non-Af 88 BUN/Creatinine Ratio 15.7 Glucose 114 H Lactic Acid Calcium 8.4 L Total Bilirubin 1.50 H AST 48 H ALT 89 H Alkaline Phosphatase 171 H Total Protein 6.5 Albumin 3.2 Globulin 3.3 Albumin/Globulin Ratio 1.0 12/12/18 12/12/18 08:00 08:43 WBC RBC Hgb Hct MCV MCH MCHC RDW Std Deviation RDW Coeff of Kahlil Plt Count MPV Immature Gran % (Auto) Neut % (Auto) Lymph % (Auto) Sutter % (Auto) Eos % (Auto) Baso % (Auto) Absolute Neuts (auto) Absolute Lymphs (auto) Nucleated RBC % PT INR APTT Specimen Type ART Sample Site R Radial pH 7.44 Bicarbonate Actual 21.9 L POC Total CO2 23 Base Excess -2 O2 Saturation 96 ABG pCO2 32.0 L ABG pO2 76 Mariano Test NA O2 Delivery Device Nasal Can Liter Flow 2.0 Blood Gas Notified Whom ED MD Blood Gas Notified Time 842 Sodium Potassium Chloride Carbon Dioxide Anion Gap BUN Creatinine Estim Creat Clear Calc Est GFR (MDRD) Af Amer Est GFR (MDRD) Non-Af BUN/Creatinine Ratio Glucose Lactic Acid 0.9 Calcium Total Bilirubin AST ALT Alkaline Phosphatase Total Protein Albumin Globulin Albumin/Globulin Ratio Acute (uncompensated) primary respiratory alkalosis pH > 7.46 and HCO3 > 22, for acute (uncompensated) pH < 7.41 and HCO3 < 20, for chronic (compensated) expected pH = 7.44 expected CO2 = 32 expected HCO3- = 21 - EKG Initial EKG Interpretation: Atrial Fibrillation - Atrial fibrillation with a ventricular rate of 126. Cures duration is 76 ms. QT is 326 with a QTC of 472 ms. There are nonspecific ST-T wave changes which may represent artifact. [place] is normal. Follow-up EKG Interpretation: Atrial Fibrillation - EKG was obtained because patient complained of chest pain. EKG reveals H fibrillation with a ventricular rate of 141. QS duration 76 ms. QT duration 310 ms. [place] is normal. There are nonspecific ST-T wave changes which may be rate dependent. Essentially unchanged from first EKG. - Medical Decision Making Since patient is tachycardic, febrile, tachypneic and hypoxic concerned she has pneumonia. Based on review of past records she has had less than a 3-day stay in the last 90 days. Presumption she has community acquired pneumonia. Will treat with levofloxacin after blood cultures have been obtained. Patient was informed she will require admission to the hospital since she is hypoxic. Sepsis work-up was initiated. Need to consider pulmonary embolus. Per review she had recent CTA which did not reveal a pulmonary embolus. Doubt vascular/cardiac etiology i.e. CHF. Patient was given 700 mg levofloxacin. She also received 3 albuterol treatments. A. fib secondary to fever and infection. We will treat the infection and not administer medication for rate control, which may result in hemodynamic instability. At 0825 patient was informed she has pneumonia. She is still tachycardic, tachypneic and hypoxic on oxygen. Will obtain ABG to assess acid-base status and specifically CO2. - Critical Care Time Critical care time (excluding procedures): 30-74 minutes - Critical care time 32 minutes., Discussing w/Patient &/or Family/Heel Cover Splitter, Discussing w/Consultants, Arranging Admission or Transfer ED Disposition - Plan for ED Patient: Disposition: Acute Care Hospital [facility] Diagnosis: Community acquired bilateral lower lobe pneumonia, Respiratory failure with hypoxia, Atrial fibrillation with rapid ventricular response, Sepsis due to pneumonia Referrals: Paul Reynolds MD [Primary Care Provider] -
[2018-12-12] MEDS: Albuterol 2.5 MG/3 ML VIAL.NEB. INHALATION ×3 (08:06)
[2018-12-12 08:22] LABS: International Normalized Ratio 1.5; Prothrombin Time (Protime)PT. 18.3 SECONDS (11.7-14.9)
[2018-12-12 08:23] LABS: Partial Thromboplast Time 35.6 Seconds (24.1-36.2)
[2018-12-12 08:23] LABS: Absolute Lymphocyte Count 0.72 X10^3/uL (0.83-4.51); Absolute Neutrophil Count 11.3 X10^3/uL (2.0-7.7); Basophil# 0.02 X10^3/uL; Basophil% 0.1 % (0-1); Eosinophil# 0.41 X10^3/uL; Hemoglobin 13.1 g/dL (12.0-15.0); Lymphocyte # 0.72 X10^3/ul (4.0); Lymphocyte % 5.2 % (19-41); Mean Corp Hgb Conc 32.8 g/dL (32-36); Mean Corpuscular Hgb 29.2 pg (27.0-32.0); Mean Corpuscular Volume 89.3 fL (81-99); Monocyte% 8.7 % (0-10); NRBC Flagged by Analyzer 0 % (0-5); Neutrophil # 11.33 X10^3/uL (2.7-7.7); Neutrophil % 82.3 % (47-70); Platelet Count 207 K/mm3 (150-450); RBC Distribution Width CV 12.4 % (11.6-14.6); RBC Distribution Width SD 40.5 fl (35.1-43.9); Red Blood Count 4.48 M/mm3 (4.2-5.4); White Blood Count 13.8 K/mm3 (4.4-11.0)
[2018-12-12 08:31] LABS: AST(SGOT) 48 U/L (15-37); Alanine Aminotransfer ALT/SGPT 89 U/L (13-56); Albumin, Serum 3.2 g/dL (3.2-5.0); Alkaline Phosphatase 171 U/L (45-117); Anion Gap 7 (5-15); BUN 11 mg/dL (7-18); BUN/Creat Ratio 15.7 RATIO (10-20); Calcium,Total 8.4 mg/dL (8.5-10.1); Chloride 110 mmol/L (98-107); EST Glomerular Filtration Rate 88 mL/min (>60); Est Glom Filt Rate - Afr Amer 107 mL/min (>60); Estimated Creatinine Clearance 51.11 ml/min; Globulin 3.3 g/dL (2.2-4.2); Glucose 114 mg/dL (74-106); Potassium 3.4 mmol/L (3.5-5.1); Protein, Total 6.5 g/dL (6.4-8.2); Sodium Level 142 mmol/L (136-145)
[2018-12-12 08:38] LABS: Lactic Acid 0.9 mmol/L (0.4-2.0)
[2018-12-12] MEDS: Acetaminophen 325 MG Tablet 650 MG PO ×2 (08:45→21:40)
[2018-12-12 08:50] LABS: Base Excess -2 mmol/L (-2 to +2); Bicarbonate 21.9 mmol/L (22-26); Blood Gas Specimen Type ART; O2 Delivery Device Nasal Can; PO2 76 mmHG (75-100); SITE R Radial; SO2 96 % (95-99); Time Given 842; Total Carbon Dioxide 23 mmol/L; pH 7.44 (7.35-7.45)
[2018-12-12] MEDS: levoFLOXacin IV 750 MG/150 ML BAG 150 MG IV (08:55)
[2018-12-12] MEDS: 0.9% Normal Saline 1,000 ML 250 ML IV (08:55)
[2018-12-12] MEDS: 0.9% Normal Saline 1,000 ML 1000 ML IV (09:14)
[2018-12-12 12:35] LABS: Magnesium 1.9 mg/dL (1.6-2.6)
[2018-12-12] MEDS: Metoprolol Tartrate 25 MG Tablet PO ×2 (12:51→21:41)
--- NOTE | 2018-12-12 14:46 | PCM.HP.STD ---
<Perry Costa - Last Filed: 12/12/18 14:46> Problem List (1) Atrial fibrillation with rapid ventricular response Status: Acute (2) Sepsis due to pneumonia Status: Acute (3) Asthma Status: Chronic (4) BMI greater than 30 Status: Chronic (5) GERD (gastroesophageal reflux disease) Status: Chronic Qualifiers: Esophagitis presence: without esophagitis Qualified Code(s): K21.9 - Gastro-esophageal reflux disease without esophagitis (6) HLD (hyperlipidemia) Status: Chronic Qualifiers: Hyperlipidemia type: unspecified Qualified Code(s): E78.5 - Hyperlipidemia, unspecified (7) HTN (hypertension) Status: Chronic Qualifiers: Hypertension type: essential hypertension Qualified Code(s): I10 - Essential (primary) hypertension History of Present Illness Date of Admission: 12/12/18 Chief Complaint: SOB The patient is a 68 year old F with past medical history of atrial fibrillation, asthma, obesity, history of CVA, who presented to the emergency room with complaints of shortness of breath. The patient had recently been to the hospital for chest pain underwent a stress test and echo which were negative and treated by cardiology for atrial fibrillation, who presents to the emergency room with increased shortness of breath. She was hypoxic at 88% but stable on 3 L of oxygen. She had a low-grade fever, she was significantly tachycardic to 145 with atrial fibrillation as the underlying rhythm. She also had leukocytosis, abnormal LFTs, and low potassium. She did report fevers and chills subjectively at home. She has a cough that is occasionally productive of clear sputum. She reports no further chest pain. [] Past Medical History Past Medical History (Chronic Problems): Chronic Problems Asthma (Chronic) TIA (transient ischemic attack) (Chronic) HTN (hypertension) (Chronic) HLD (hyperlipidemia) (Chronic) Headache (Chronic) BMI greater than 30 (Chronic) Migraine (Chronic) GERD (gastroesophageal reflux disease) (Chronic) Asthma exacerbation (Chronic) Allergies adhesive tape Allergy (Verified 12/12/18 07:39) Rash propoxyphene HCl [From Darvon] Allergy (Verified 12/12/18 07:39) Rash sulfamethoxazole [From Bactrim] Allergy (Verified 12/12/18 07:39) Shortness of breath trimethoprim [From Bactrim] Allergy (Verified 12/12/18 07:39) Shortness of breath venom-honey bee [bee venom (honey bee)] Allergy (Verified 12/12/18 07:39) Anaphylaxis venom-wasp [wasp venom] Allergy (Verified 12/12/18 07:39) Anaphylaxis prednisone Adverse Reaction (Verified 12/12/18 07:39) Diarrhea anything that stings Allergy (Uncoded 12/12/18 07:39) Anaphylaxis banana peppers Allergy (Uncoded 12/12/18 07:39) Hives FIBERGLASS Allergy (Uncoded 12/12/18 07:39) Shortness of breath Home Medications: Ambulatory Orders Medication Instructions Recorded Epi Pen (for allergic rxn) 0.3 mg IM X1 05/04/13 Loratadine [Claritin] 10 mg PO DAILY 05/04/13 Albuterol Sulfate [Ventolin Hfa] 2 puff IH Q6H PRN PRN 12/26/15 Pantoprazole Sodium [Protonix] 20 mg PO DAILY 12/26/15 CycloSPORINE Ophthalmic [Restasis 1 drop EACH EYE DAILY 03/28/16 Ophthalmic] Fluticasone/Salmeterol [Advair 1 each IH DAILY PRN PRN 03/28/16 100-50 Diskus] Meclizine HCl 25 mg PO Q6H PRN 03/28/16 Atorvastatin Calcium [Lipitor] 20 mg PO DAILY 07/02/18 Fluticasone 0.05% [Flonase Nasal 2 spray NASAL DAILY PRN PRN 07/02/18 [place]] Albuterol Aerosols [Ventolin 2.5 mg INHALATION Q4HWA.RT 12/04/18 Aerosols] Bifidobacter. Bifidum/B.longum 460 mg PO DAILY 12/04/18 [Florajen Bifidoblend Capsule] Ondansetron [Zofran] 8 mg PO Q8H PRN PRN #30 tab 12/06/18 Verapamil HCl [Verapamil ER] 240 mg PO DAILY #30 tablet.er 12/06/18 Amiodarone HCl [Cordarone] 200 mg PO DAILY 12/12/18 Apixaban [Eliquis] 5 mg PO BID 12/12/18 Metoprolol Tartrate [Lopressor 25 mg PO BID 12/12/18 (beta danielle)] Surgical History: - - Cholecystectomy, hysterectomy, right mastoid tumor resection. 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 She denies any known history of heart disease, diabetes or cancer. Review of Systems Constitutional: Reports: Chills, Fever, Fatigue. Denies: Weight Change HEENT: Denies: Head Aches, Sinus Congestion, Sinus Drainage Cardiovascular: Denies: Chest Pain, Chest Pressure, Chest Tightness, Edema, Heaviness, Light Headedness, Palpitations Respiratory: Reports: Cough, Shortness of Breath, Shortness of breath at rest, Shortness of breath upon exertion, Sputum production. Denies: Hemoptysis, Pleuritic Pain Gastrointestinal: Denies: Abdominal Pain, Diarrhea, Nausea, Vomiting Genitourinary: Denies: Dysuria Musculoskeletal: Denies: Joint Pain, Joint Tenderness Skin: Denies: Rash, Wounds Neurological: Denies: Numbness, Tingling, Focal weakness Psychiatric: Denies: Anxiety, Depression, Homicidal Ideations, Suicidal Ideations Hematologic/ Lymphatic: Denies: Easy Bruising, Easy Bleeding VTE Information - Inpt Only VTE Present on Admission: No VTE Mechan Device Prophylaxis: None VTE Pharm Prophylaxis ordered?: Yes Patient Problems: Active and Suspected Problems Community acquired bilateral lower lobe pneumonia (Acute) Respiratory failure with hypoxia (Acute) Atrial fibrillation with rapid ventricular response (Acute) Sepsis due to pneumonia (Acute) - Physical Exam General: Alert, Oriented x3, Cooperative HEENT: Atraumatic, PERRLA, EOMI, Normocephalic Neck: Supple, No JVD, Negative Carotid Bruits Lungs: Diminished, Wheezes Cardiovascular: No murmurs, Irregular Rate, Tachycardic Abdomen: Bowel Sounds Present, Soft, Non Tender Extremities: No edema, Capillary Refill Less than 3 Seconds Skin: No rashes, No breakdown Musculoskeletal: No Tenderness to Palpation of Joints or Extremities Neurological: Cranial nerves II-XII grossly intact Psych/Mental Status: Normal Affect, Appropriate, Alert and oriented to time, place, person, mood and affect Vital Signs Temp Pulse Resp BP Pulse Ox 98.7 F 105 H 20 H 115/59 L 96 12/12/18 11:55 12/12/18 12:51 12/12/18 11:55 12/12/18 11:55 12/12/18 11:55 Oxygen Flow Rate (L/min) 2 Oxygen Delivery Method Nasal Cannula Weight: 186 lb 4.65 oz Body Mass Index (BMI) 30.0 Intake and Output for Last 24 Hours 12/10/18 12/11/18 12/12/18 23:59 23:59 23:59 Intake Total 2353.33 / 2353.33 Balance 2353.33 / 2353.33 Laboratory Tests Past 24 Hrs 12/12/18 12/12/18 12/12/18 07:50 07:50 07:50 WBC RBC Hgb Hct MCV MCH MCHC RDW Std Deviation RDW Coeff of Kahlil Plt Count MPV Immature Gran % (Auto) Neut % (Auto) Lymph % (Auto) Ripley % (Auto) Eos % (Auto) Baso % (Auto) Absolute Neuts (auto) Absolute Lymphs (auto) Nucleated RBC % PT 18.3 H INR 1.5 APTT 35.6 Specimen Type Sample Site pH Bicarbonate Actual POC Total CO2 Base Excess O2 Saturation ABG pCO2 ABG pO2 Mariano Test O2 Delivery Device Liter Flow Blood Gas Notified Whom Blood Gas Notified Time Sodium 142 Potassium 3.4 L Chloride 110 H Carbon Dioxide 25.0 Anion Gap 7 BUN 11 Creatinine 0.70 Estim Creat Clear Calc 51.11 Est GFR (MDRD) Af Amer 107 Est GFR (MDRD) Non-Af 88 BUN/Creatinine Ratio 15.7 Glucose 114 H Lactic Acid Calcium 8.4 L Magnesium 1.9 Total Bilirubin 1.50 H AST 48 H ALT 89 H Alkaline Phosphatase 171 H Total Protein 6.5 Albumin 3.2 Globulin 3.3 Albumin/Globulin Ratio 1.0 12/12/18 12/12/18 12/12/18 07:57 08:00 08:43 WBC 13.8 H RBC 4.48 Hgb 13.1 Hct 40.0 MCV 89.3 MCH 29.2 MCHC 32.8 RDW Std Deviation 40.5 RDW Coeff of Kahlil 12.4 Plt Count 207 MPV 10.0 Immature Gran % (Auto) 0.700 Neut % (Auto) 82.3 H Lymph % (Auto) 5.2 L Ripley % (Auto) 8.7 Eos % (Auto) 3.0 Baso % (Auto) 0.1 Absolute Neuts (auto) 11.3 H Absolute Lymphs (auto) 0.72 L Nucleated RBC % 0 PT INR APTT Specimen Type ART Sample Site R Radial pH 7.44 Bicarbonate Actual 21.9 L POC Total CO2 23 Base Excess -2 O2 Saturation 96 ABG pCO2 32.0 L ABG pO2 76 Mariano Test NA O2 Delivery Device Nasal Can Liter Flow 2.0 Blood Gas Notified Whom ED Blood Gas Notified Time 842 Sodium Potassium Chloride Carbon Dioxide Anion Gap BUN Creatinine Estim Creat Clear Calc Est GFR (MDRD) Af Amer Est GFR (MDRD) Non-Af BUN/Creatinine Ratio Glucose Lactic Acid 0.9 Calcium Magnesium Total Bilirubin AST ALT Alkaline Phosphatase Total Protein Albumin Globulin Albumin/Globulin Ratio Assessment/Plan All Active Problems Chest pain, unspecified (Acute) New onset atrial fibrillation (Acute) Community acquired bilateral lower lobe pneumonia (Acute) Respiratory failure with hypoxia (Acute) Atrial fibrillation with rapid ventricular response (Acute) Sepsis due to pneumonia (Acute) CVA (cerebral vascular accident) (Acute) Balance problem (Acute) 1. Acute sepsis 2/2 HCAP - continue levaquin. + tachycardic, tachypnea, leukocytosis, fever, abormal LFTs, CXR with possible LLL pna. Continue levaquin, duonebs, pulmicort, IS, PEP. Check resp panel, urine antigens, blood and sputum culture. Lactate negative. ABG with pH 7.44. pO2 76, pCO2 32 2. Afib with RVR - 2/2 sepsis - continue current home meds. avoid excessive albuterol. Continue eliquis. 3. Hx asthma - continue duonebs and pulmicort 4. Obesity - tester regulator consult 5. HTN - stable DVT ppx: eliquis DC planning: may need home o2. This patient was seen by Perry Costa PA-C under the supervision of Dr. Viramontes. <Agustín Viramontes F - Last Filed: 12/12/18 17:38> History of Present Illness The patient is a 68 year old F [] Past Medical History Allergies adhesive tape Allergy (Verified 12/12/18 07:39) Rash propoxyphene HCl [From Darvon] Allergy (Verified 12/12/18 07:39) Rash sulfamethoxazole [From Bactrim] Allergy (Verified 12/12/18 07:39) Shortness of breath trimethoprim [From Bactrim] Allergy (Verified 12/12/18 07:39) Shortness of breath venom-honey bee [bee venom (honey bee)] Allergy (Verified 12/12/18 07:39) Anaphylaxis venom-wasp [wasp venom] Allergy (Verified 12/12/18 07:39) Anaphylaxis prednisone Adverse Reaction (Verified 12/12/18 07:39) Diarrhea anything that stings Allergy (Uncoded 12/12/18 07:39) Anaphylaxis banana peppers Allergy (Uncoded 12/12/18 07:39) Hives FIBERGLASS Allergy (Uncoded 12/12/18 07:39) Shortness of breath - Physical Exam Vital Signs Temp Pulse Resp BP Pulse Ox 98.7 F 88 22 H 115/59 L 96 12/12/18 11:55 12/12/18 15:58 12/12/18 15:58 12/12/18 11:55 12/12/18 11:55 Oxygen Flow Rate (L/min) 2 Oxygen Delivery Method Nasal Cannula Weight: 186 lb 4.65 oz Body Mass Index (BMI) 30.0 Intake and Output for Last 24 Hours 12/10/18 12/11/18 12/12/18 23:59 23:59 23:59 Intake Total 2353.33 / 2353.33 Balance 2353.33 / 2353.33 Microbiology Past 72 Hours 12/12/18 16:25 Streptococcus pneumoniae Antigen (M - Final Urine, Clean Catch 12/12/18 16:25 Legionella Antigen - Final Urine, Clean Catch Laboratory Tests Past 24 Hrs 12/12/18 12/12/18 12/12/18 07:50 07:50 07:50 WBC RBC Hgb Hct MCV MCH MCHC RDW Std Deviation RDW Coeff of Kahlil Plt Count MPV Immature Gran % (Auto) Neut % (Auto) Lymph % (Auto) Riple[place] % (Auto) Eos % (Auto) Baso % (Auto) Absolute Neuts (auto) Absolute Lymphs (auto) Nucleated RBC % PT 18.3 H INR 1.5 APTT 35.6 Specimen Type Sample Site pH Bicarbonate Actual POC Total CO2 Base Excess O2 Saturation ABG pCO2 ABG pO2 Mariano Test O2 Delivery Device Liter Flow Blood Gas Notified Whom Blood Gas Notified Time Sodium 142 Potassium 3.4 L Chloride 110 H Carbon Dioxide 25.0 Anion Gap 7 BUN 11 Creatinine 0.70 Estim Creat Clear Calc 51.11 Est GFR (MDRD) Af Amer 107 Est GFR (MDRD) Non-Af 88 BUN/Creatinine Ratio 15.7 Glucose 114 H Lactic Acid Calcium 8.4 L Magnesium 1.9 Total Bilirubin 1.50 H AST 48 H ALT 89 H Alkaline Phosphatase 171 H Total Protein 6.5 Albumin 3.2 Globulin 3.3 Albumin/Globulin Ratio 1.0 Urine Color Urine Clarity Urine pH Ur Specific [place] Urine Protein Urine Glucose (UA) Urine Ketones Urine Occult Blood Urine Nitrite Urine Bilirubin Urine Urobilinogen Ur Leukocyte Esterase Urine RBC Urine WBC Ur Squamous Epith Cells Urine Bacteria Urine Mucus 12/12/18 12/12/18 12/12/18 07:57 08:00 08:43 WBC 13.8 H RBC 4.48 Hgb 13.1 Hct 40.0 MCV 89.3 MCH 29.2 MCHC 32.8 RDW Std Deviation 40.5 RDW Coeff of Kahlil 12.4 Plt Count 207 MPV 10.0 Immature Gran % (Auto) 0.700 Neut % (Auto) 82.3 H Lymph % (Auto) 5.2 L Ripley % (Auto) 8.7 Eos % (Auto) 3.0 Baso % (Auto) 0.1 Absolute Neuts (auto) 11.3 H Absolute Lymphs (auto) 0.72 L Nucleated RBC % 0 PT INR APTT Specimen Type ART Sample Site R Radial pH 7.44 Bicarbonate Actual 21.9 L POC Total CO2 23 Base Excess -2 O2 Saturation 96 ABG pCO2 32.0 L ABG pO2 76 Mariano Test NA O2 Delivery Device Nasal Can Liter Flow 2.0 Blood Gas Notified Whom ED Blood Gas Notified Time 842 Sodium Potassium Chloride Carbon Dioxide Anion Gap BUN Creatinine Estim Creat Clear Calc Est GFR (MDRD) Af Amer Est GFR (MDRD) Non-Af BUN/Creatinine Ratio Glucose Lactic Acid 0.9 Calcium Magnesium Total Bilirubin AST ALT Alkaline Phosphatase Total Protein Albumin Globulin Albumin/Globulin Ratio Urine Color Urine Clarity Urine pH Ur Specific [place] Urine Protein Urine Glucose (UA) Urine Ketones Urine Occult Blood Urine Nitrite Urine Bilirubin Urine Urobilinogen Ur Leukocyte Esterase Urine RBC Urine WBC Ur Squamous Epith Cells Urine Bacteria Urine Mucus 12/12/18 16:25 WBC RBC Hgb Hct MCV MCH MCHC RDW Std Deviation RDW Coeff of Kahlil Plt Count MPV Immature Gran % (Auto) Neut % (Auto) Lymph % (Auto) Ripley % (Auto) Eos % (Auto) Baso % (Auto) Absolute Neuts (auto) Absolute Lymphs (auto) Nucleated RBC % PT INR APTT Specimen Type Sample Site pH Bicarbonate Actual POC Total CO2 Base Excess O2 Saturation ABG pCO2 ABG pO2 Mariano Test O2 Delivery Device Liter Flow Blood Gas Notified Whom Blood Gas Notified Time Sodium Potassium Chloride Carbon Dioxide Anion Gap BUN Creatinine Estim Creat Clear Calc Est GFR (MDRD) Af Amer Est GFR (MDRD) Non-Af BUN/Creatinine Ratio Glucose Lactic Acid Calcium Magnesium Total Bilirubin AST ALT Alkaline Phosphatase Total Protein Albumin Globulin Albumin/Globulin Ratio Urine Color Yellow Urine Clarity Clear Urine pH 6.0 Ur Specific [place] 1.015 Urine Protein Negative Urine Glucose (UA) Normal Urine Ketones Negative Urine Occult Blood Negative Urine Nitrite Negative Urine Bilirubin Negative Urine Urobilinogen Normal Ur Leukocyte Esterase Negative Urine RBC 0-5 SEEN Urine WBC 0-5 SEEN Ur Squamous Epith Cells 0-5 SEEN Urine Bacteria 0 SEEN Urine Mucus RARE Code Visit Addendum: Dr. Viramontes I personally examined the patient and reviewed the chart. I agree with the above. 68-year-old female with a history of asthma and A. fib presents with shortness of breath for several days. She was just admitted for a few days in the hospital last week for A. fib and chest pain. She had presented to the ER yesterday with cough and chest pain and now states she also has fevers and chills. Her white blood cell count on admission was 13.8. Chest x-ray shows left lower lobe consolidation. She was started on Levaquin in the ER which was continued on admission. We will continue treatment for her pneumonia and has had improved so should her A. fib. We will continue with her current home medications without any aggressive rate control. Inpatient E&M: [id number] Init Hosp L3
[2018-12-12] MEDS: Ipratropium/Albuterol Sulfate 3 ML AMPUL.NEB INHALATION ×2 (15:29→19:01)
[2018-12-12] MEDS: Hydrocortisone 2.5% Crm 1 APPLIC TOPICAL (16:30)
[2018-12-12 16:37] LABS: Bacteria 0 SEEN /hpf (None Seen)
[2018-12-12 16:41] LABS: Color, Urine Yellow (Yellow); Glucose, Dipstick Normal (Normal); Ketone-Dipstick Negative (Negative); Leukocyte Esterase-Dipstick Negative /ul (Negative); Nitrite-Dipstick Negative (Negative); Occult Blood-Urine Negative /ul (Negative); Protein-Dipstick Negative (Negative); Specific Gravity, Urine 1.015 (1.002-1.030); Urine Bilirubin Dipstick Negative (Negative); Urine Clarity Clear (Clear); Urine Urobilinogen Normal (Normal)
[2018-12-12 16:49] LABS: Squamous Epithelial Cells - UA 0-5 SEEN /hpf (5-10)
[2018-12-12 16:50] LABS: Mucous, Urine RARE /hpf (<or=2+); Red Blood Cells-Urine 0-5 SEEN /hpf (0-5)
[2018-12-12 16:51] LABS: White Blood Cells 0-5 SEEN /hpf (0-5)
[2018-12-12] MEDS: Budesonide Respules 0.5 MG/2 ML AMPUL.NEB. INHALATION (19:01)
[2018-12-12] MEDS: APIXABAN 5 MG TABLET PO (21:40)
[2018-12-12] MEDS: hydrOXYzine 10 MG Tablet PO (22:42)
[2018-12-13] VITALS (17 sets, daily range): BP systolic 103–145; BP diastolic 66–75; PULSE 77–128; RESP 16–20; TEMP 36.7–36.8; O2SAT 90–96
[2018-12-13 05:53] LABS: Absolute Lymphocyte Count 1.71 X10^3/uL (0.83-4.51); Absolute Neutrophil Count 6.3 X10^3/uL (2.0-7.7); Basophil# 0.02 X10^3/uL; Basophil% 0.2 % (0-1); Eosinophil# 0.52 X10^3/uL; Eosinophils% 5.6 % (0-5); Hematocrit 38.6 % (37-47); Hemoglobin 12.6 g/dL (12.0-15.0); Lymphocyte # 1.71 X10^3/ul (4.0); Lymphocyte % 18.3 % (19-41); Mean Corp Hgb Conc 32.6 g/dL (32-36); Mean Corpuscular Hgb 29.6 pg (27.0-32.0); Mean Corpuscular Volume 90.6 fL (81-99); Mean Platelet Vol. 10.4 fl (6.2-12.0); Monocyte# 0.78 X10^3/uL; Monocyte% 8.4 % (0-10); NRBC Flagged by Analyzer 0 % (0-5); Neutrophil # 6.27 X10^3/uL (2.7-7.7); Neutrophil % 67.2 % (47-70); Platelet Count 200 K/mm3 (150-450); RBC Distribution Width CV 12.7 % (11.6-14.6); RBC Distribution Width SD 41.9 fl (35.1-43.9); Red Blood Count 4.26 M/mm3 (4.2-5.4); White Blood Count 9.3 K/mm3 (4.4-11.0)
[2018-12-13 06:06] LABS: ALB/GLOB Ratio 0.9 RATIO (0.9-2.4); AST(SGOT) 28 U/L (15-37); Alanine Aminotransfer ALT/SGPT 75 U/L (13-56); Albumin, Serum 2.9 g/dL (3.2-5.0); Alkaline Phosphatase 161 U/L (45-117); Anion Gap 5 (5-15); BUN 15 mg/dL (7-18); BUN/Creat Ratio 25.8 RATIO (10-20); Calcium,Total 8.3 mg/dL (8.5-10.1); Chloride 112 mmol/L (98-107); Creatinine, Serum 0.58 mg/dL (0.55-1.02); EST Glomerular Filtration Rate 110 mL/min (>60); Est Glom Filt Rate - Afr Amer 133 mL/min (>60); Estimated Creatinine Clearance 51.11 ml/min; Globulin 3.2 g/dL (2.2-4.2); Glucose 88 mg/dL (74-106); Potassium 3.7 mmol/L (3.5-5.1); Protein, Total 6.1 g/dL (6.4-8.2); Sodium Level 142 mmol/L (136-145)
[2018-12-13] MEDS: Ipratropium/Albuterol Sulfate 3 ML AMPUL.NEB INHALATION ×4 (06:57→18:22)
[2018-12-13] MEDS: Verapamil SR 240 MG Tablet PO (09:47)
[2018-12-13] MEDS: Loratadine 10 MG Tablet PO (09:47)
[2018-12-13] MEDS: APIXABAN 5 MG TABLET PO ×2 (09:48→21:55)
[2018-12-13] MEDS: Acetaminophen 325 MG Tablet 650 MG PO (09:48)
[2018-12-13] MEDS: Amiodarone 200 MG Tablet PO (09:48)
[2018-12-13] MEDS: Pantoprazole Sodium 20 MG Tablet PO (09:48)
[2018-12-13] MEDS: Metoprolol Tartrate 25 MG Tablet PO ×2 (09:54→21:55)
[2018-12-13] MEDS: levoFLOXacin IV 750 MG/150 ML BAG 100 MG IV (10:19)
[2018-12-13] MEDS: hydrOXYzine 10 MG Tablet PO (10:19)
--- NOTE | 2018-12-13 11:45 | CASEMGMT ---
RN SALO INSPECTOR INSULATION CM to room to meet with patient for initial transition planning/care coordination assessment. RN SALO introduced self and role at [facility]. Pt voices understanding and consents to assessment at this time. Pt resting in bed in no distress at this time. Pt is A/O at this time and answers all questions appropriately. Care providers, pharmacy, and demographics verified at this time. PCP: Dr Reynolds Specialists: Dr Sampson--noted when pt discharged 12/06, pt had appt set up with Dr Sampson for today, 12/13. Discussed this with pt, who states she does not remember having an appt w/Dr Sampson. Call placed to [facility] and spoke with Elizabeth. She states appt for today was for an EKG. She was made aware pt is currently at [facility] and appt cancelled. Pt has new appt scheduled w/Dr Sampson on 12/26. Pt made aware of this at this time and she voices appreciation. Appt is on DC follow-up appts intervention to be given to pt at discharge. Sees Dr Mayberry for foot drop. Preferred Pharmacy: [facility] Insurance: [employer] [facility] Prescription Benefit: Yes Living Will/HPOA: does not have LW or HCPOA . Interested in more information and would like to talk w/SW to complete paperwork. JULEE Max, made aware. Pt inquiring if she has AD paperwork done today, if she can make changes in the future, if she chooses. Pt given AD info sheets and [employer] card as well. She was made aware if she wishes to make changes/do new AD paperwork, she can make appt w/SW for changes. She voiced appreciation. LNOK: Has 4 adult children: 3 daughters and a son. Daughter, Anne-Marie, and son, Yoel, listed on demographics sheet. She states the other 2 children do not talk to me unless they have to. Living Arrangements: Lives alone in 2-story home w/basement where she does the laundry. She states she is able to navigate the stairs fairly well. Pt states she is independent w/ADL's and home mgmt tasks. Transportation: Pt states drives self and states no transportation concerns at this time. States her daughter or son will take her home @ discharge. DME: has the following DME: cane, nebulizer, medical alert button, and BP machine. She states the nebulizer is working properly. Does not have home O2. Pt currently on oxygen at 2L/M via n/c. May need home oxygen testing completed prior to d/c. Pt states if she would need oxygen @ D/C, she does not have a preference of DME company. Given list of local DME companies who are in network w/[employer]. Pt is agreeable to [facility]. Pt states she has to sit @ edge of bathtub to bath d/t she has fallen in the past a couple of times and feels it is safer. She plans to talk with her landlord re: having a hand-held shower installed. Discussed pt getting a tub bench and she states is interested and does feel it would be safer. She was made aware her insurance will not cover the cost of a tub bench, but that she could purchase at local drug stores/medical supply companies. Pt states she will look into this. HHC/SNF: No history of HHC or SNF. Pt denies need for HHC. States is interested in OP PT/OT and would like to go to [facility] OP therapy [facility], as she has been there before. JAIMIE Van, made aware and states will address this tomorrow/Sat. Pt wishes to return home and states has no concerns with going home at time of discharge. Pt states does not smoke or drink ETOH. CM to follow for home oxygen needs and any further discharge planning/needs. Pt voices no further concerns/needs at this time. Advised pt to ask for CM if any further questions/concerns/needs arise. Voices understanding. PLAN: Home w/discharge plans in place. May need Home oxygen testing completed prior to discharge. Green sheet on chart w/instructions for Home O2 if pt discharges over the weekend. Pt will need script for OP therapy @ discharge. Alphonso WHALEY RN CM
--- NOTE | 2018-12-13 13:10 | PCM.PROGNOTE ---
<Perry Costa - Last Filed: 12/13/18 13:10> Patient Problems: Active and Suspected Problems Community acquired bilateral lower lobe pneumonia (Acute) Respiratory failure with hypoxia (Acute) Atrial fibrillation with rapid ventricular response (Acute) Sepsis due to pneumonia (Acute) Subjective: Pt with ongoing SOB and cough - no sputum production now. No LE edema. No fever/chills. No palp, still with some racing intermittently. Less wheezing. - Physical Exam General: Alert, Oriented x3, Cooperative HEENT: Atraumatic, PERRLA, EOMI, Normocephalic Neck: Supple, No JVD, Negative Carotid Bruits Lungs: Normal air movement, Wheezes - faint Cardiovascular: No murmurs, Irregular Rate, Tachycardic Abdomen: Bowel Sounds Present, Soft, Non Tender Extremities: No edema, Capillary Refill Less than 3 Seconds Skin: No rashes, No breakdown Musculoskeletal: No Tenderness to Palpation of Joints or Extremities Neurological: Cranial nerves II-XII grossly intact Psych/Mental Status: Normal Affect, Appropriate, Alert and oriented to time, place, person, mood and affect Vital Signs Temp Pulse Resp BP Pulse Ox 98.2 F 88 20 H 145/70 H 96 12/13/18 09:35 12/13/18 10:51 12/13/18 10:51 12/13/18 09:35 12/13/18 09:35 Oxygen Flow Rate (L/min) 2 Oxygen Delivery Method Nasal Cannula Weight: 186 lb 4.65 oz Body Mass Index (BMI) 30.0 Intake and Output for Last 24 Hours 12/11/18 12/12/18 12/13/18 23:59 23:59 23:59 Intake Total 2353.33 / 2353.33 550 / 550 Balance 2353.33 / 2353.33 550 / 550 Microbiology Past 72 Hours 12/12/18 15:33 Respiratory Panel (PCR) - Final Mucosa - Nasopharyngeal 12/12/18 16:25 Streptococcus pneumoniae Antigen (M - Final Urine, Clean Catch 12/12/18 16:25 Legionella Antigen - Final Urine, Clean Catch Laboratory Tests Past 24 Hrs 12/12/18 12/13/18 12/13/18 16:25 05:19 05:19 WBC 9.3 RBC 4.26 Hgb 12.6 Hct 38.6 MCV 90.6 MCH 29.6 MCHC 32.6 RDW Std Deviation 41.9 RDW Coeff of Kahlil 12.7 Plt Count 200 MPV 10.4 Immature Gran % (Auto) 0.300 Neut % (Auto) 67.2 Lymph % (Auto) 18.3 L [place] % (Auto) 8.4 Eos % (Auto) 5.6 H Baso % (Auto) 0.2 Absolute Neuts (auto) 6.3 Absolute Lymphs (auto) 1.71 Nucleated RBC % 0 Sodium 142 Potassium 3.7 Chloride 112 H Carbon Dioxide 25.0 Anion Gap 5 BUN 15 Creatinine 0.58 Estim Creat Clear Calc 51.11 Est GFR (MDRD) Af Amer 133 Est GFR (MDRD) Non-Af 110 BUN/Creatinine Ratio 25.8 H Glucose 88 Calcium 8.3 L Total Bilirubin 0.70 AST 28 ALT 75 H Alkaline Phosphatase 161 H Total Protein 6.1 L Albumin 2.9 L Globulin 3.2 Albumin/Globulin Ratio 0.9 Urine Color Yellow Urine Clarity Clear Urine pH 6.0 Ur Specific Beauty 1.015 Urine Protein Negative Urine Glucose (UA) Normal Urine Ketones Negative Urine Occult Blood Negative Urine Nitrite Negative Urine Bilirubin Negative Urine Urobilinogen Normal Ur Leukocyte Esterase Negative Urine RBC 0-5 SEEN Urine WBC 0-5 SEEN Ur Squamous Epith Cells 0-5 SEEN Urine Bacteria 0 SEEN Urine Mucus RARE Medical Necessity - Tobacco Use Smoking Status: Never smoker Assessment/Plan All Active Problems Chest pain, unspecified (Acute) New onset atrial fibrillation (Acute) Community acquired bilateral lower lobe pneumonia (Acute) Respiratory failure with hypoxia (Acute) Atrial fibrillation with rapid ventricular response (Acute) Sepsis due to pneumonia (Acute) CVA (cerebral vascular accident) (Acute) Balance problem (Acute) 1. Acute sepsis 2/2 HCAP - continue levaquin. + tachycardic, tachypnea, leukocytosis, fever, abormal LFTs, CXR with possible LLL pna. Continue duonebs, pulmicort, IS, PEP. Resp panel negative. urine antigens are negative, blood and sputum culture. Lactate negative. ABG with pH 7.44. pO2 76, pCO2 32 2. Afib with RVR - 2/2 sepsis - improving. Continue current regimen. Avoid excessive albuterol. 3. Hx asthma - continue duonebs and pulmicort 4. Obesity - residential solar sales consultant consult 5. HTN - stable DVT ppx: eliquis DC planning: may need home o2. Expect DC home with outpatient physical therapy in 24-48 hours This patient was seen by Perry Costa PA-C under the supervision of Dr. Viramontes. <Agustín Viramontes F - Last Filed: 12/13/18 14:20> - Physical Exam Vital Signs Temp Pulse Resp BP Pulse Ox 98.2 F 86 16 145/70 H 96 12/13/18 09:35 12/13/18 13:51 12/13/18 13:51 12/13/18 09:35 12/13/18 09:35 Oxygen Flow Rate (L/min) 2 Oxygen Delivery Method Nasal Cannula Weight: 186 lb 4.65 oz Body Mass Index (BMI) 30.0 Intake and Output for Last 24 Hours 12/11/18 12/12/18 12/13/18 23:59 23:59 23:59 Intake Total 2353.33 / 2353.33 550 / 550 Balance 2353.33 / 2353.33 550 / 550 Microbiology Past 72 Hours 12/12/18 15:33 Respiratory Panel (PCR) - Final Mucosa - Nasopharyngeal 12/12/18 16:25 Streptococcus pneumoniae Antigen (M - Final Urine, Clean Catch 12/12/18 16:25 Legionella Antigen - Final Urine, Clean Catch Laboratory Tests Past 24 Hrs 12/12/18 12/13/18 12/13/18 16:25 05:19 05:19 WBC 9.3 RBC 4.26 Hgb 12.6 Hct 38.6 MCV 90.6 MCH 29.6 MCHC 32.6 RDW Std Deviation 41.9 RDW Coeff of Kahlil 12.7 Plt Count 200 MPV 10.4 Immature Gran % (Auto) 0.300 Neut % (Auto) 67.2 Lymph % (Auto) 18.3 L [place] % (Auto) 8.4 Eos % (Auto) 5.6 H Baso % (Auto) 0.2 Absolute Neuts (auto) 6.3 Absolute Lymphs (auto) 1.71 Nucleated RBC % 0 Sodium 142 Potassium 3.7 Chloride 112 H Carbon Dioxide 25.0 Anion Gap 5 BUN 15 Creatinine 0.58 Estim Creat Clear Calc 51.11 Est GFR (MDRD) Af Amer 133 Est GFR (MDRD) Non-Af 110 BUN/Creatinine Ratio 25.8 H Glucose 88 Calcium 8.3 L Total Bilirubin 0.70 AST 28 ALT 75 H Alkaline Phosphatase 161 H Total Protein 6.1 L Albumin 2.9 L Globulin 3.2 Albumin/Globulin Ratio 0.9 Urine Color Yellow Urine Clarity Clear Urine pH 6.0 Ur Specific Beauty 1.015 Urine Protein Negative Urine Glucose (UA) Normal Urine Ketones Negative Urine Occult Blood Negative Urine Nitrite Negative Urine Bilirubin Negative Urine Urobilinogen Normal Ur Leukocyte Esterase Negative Urine RBC 0-5 SEEN Urine WBC 0-5 SEEN Ur Squamous Epith Cells 0-5 SEEN Urine Bacteria 0 SEEN Urine Mucus RARE Code Visit Addendum: Dr. Viramontes I personally examined the patient and reviewed the chart. I agree with the above. 68-year-old female with a history of asthma and A. fib presents with shortness of breath for several days. She was just admitted for a few days in the hospital last week for A. fib and chest pain. She had presented to the ER yesterday with cough and chest pain and now states she also has fevers and chills. Her white blood cell count on admission was 13.8. Chest x-ray shows left lower lobe consolidation. She was started on Levaquin in the ER which was continued on admission. She was little bit tachycardic this morning however with administration of her medications her heart rate improved back to normal. Continually attempt to wean oxygen, may need to proceed with prednisone since she has no allergy to it but she does get diarrhea. Inpatient E&M: 08685 Subs Hosp L2
--- NOTE | 2018-12-13 14:17 | CASEMGMT ---
SW assisted pt in completing POA form for healthcare, pt not ready to complete LW. SW gave pt blank LW form with the number to the SW dept, let her know if she would like to complete the form in the future to call and make and appointment. EVONNE Perez
[2018-12-13] MEDS: Budesonide Respules 0.5 MG/2 ML AMPUL.NEB. INHALATION (18:22)
[2018-12-13] MEDS: guaiFENesin Dm 10 ML UDC PO (21:54)
[2018-12-13] MEDS: Atorvastatin Calcium 20 MG Tablet PO (21:55)
--- NOTE | 2018-12-13 23:17 | NURSING ---
Report recieved from Janette Ryan RN. This RN is now taking over care of this patient at this time
--- NOTE | 2018-12-13 23:18 | NURSING ---
Gave report to Elva CHEATHAM at this time, she is taking over care of pt at this time.
[2018-12-14] VITALS (19 sets, daily range): BP systolic 97–135; BP diastolic 55–84; PULSE 71–119; RESP 16–18; TEMP 36.7–36.8; O2SAT 90–94
[2018-12-14] MEDS: Fluticasone 0.05% 1 SPRAY NASAL.SRY 2 SPRAY NASAL (02:17)
[2018-12-14] MEDS: Acetaminophen 325 MG Tablet 650 MG PO ×2 (03:41→13:16)
[2018-12-14] MEDS: Ipratropium/Albuterol Sulfate 3 ML AMPUL.NEB INHALATION ×4 (06:36→18:36)
[2018-12-14] MEDS: Budesonide Respules 0.5 MG/2 ML AMPUL.NEB. INHALATION ×2 (06:36→18:50)
--- NOTE | 2018-12-14 08:16 | PN_ITS ---
Patient Problems: Active and Suspected Problems Community acquired bilateral lower lobe pneumonia (Acute) Respiratory failure with hypoxia (Acute) Atrial fibrillation with rapid ventricular response (Acute) Sepsis due to pneumonia (Acute) Subjective: Feels better today, though she did not get much sleep last night. Vitals/I&O's: Vital Signs Temp Pulse Resp BP Pulse Ox 98.1 F 119 H 16 135/75 H 93 12/14/18 03:30 12/14/18 07:09 12/14/18 06:36 12/14/18 03:30 12/14/18 06:36 Oxygen Flow Rate (L/min) 1 Oxygen Delivery Method Nasal Cannula Weight: 186 lb 4.65 oz Body Mass Index (BMI) 30.0 Intake and Output for Last 24 Hours 12/12/18 12/13/18 12/14/18 23:59 23:59 23:59 Intake Total 2353.33 / 2353.33 1150 / 1150 Balance 2353.33 / 2353.33 1150 / 1150 General: Alert, Oriented x3, Cooperative, No apparent distress HEENT: Atraumatic, PERRLA, EOMI, Normocephalic Oral: Moist Mucosa Neck: Supple, No JVD Lungs: Clear to auscultation, Normal air movement, No rhonchi, No wheeze, No rales Cardiovascular: Normal S1, Normal S2, No murmurs, Irregular Rate, - - Irregular rhythm Abdomen: Soft, Non Tender, Non-Distended, No Hepato-splenomegaly Extremities: No edema, Capillary Refill Less than 3 Seconds Skin: No rashes, No breakdown Neurological: Neuro grossly intact, Sensory exam intact to light touch and pain Psych/Mental Status: Normal Affect, Appropriate Microbiology Past 72 Hours 12/12/18 15:33 Mucosa - Nasopharyngeal Respiratory Panel (PCR) - Final 12/12/18 16:25 Urine, Clean Catch Streptococcus pneumoniae Antigen (M - Final 12/12/18 16:25 Urine, Clean Catch Legionella Antigen - Final Current Medications Acetaminophen (Tylenol) 650 mg PO Q6H PRN PRN PRN Reason: FEVER Last Admin: 12/14/18 03:41 Dose: 650 mg Documented by: Albuterol/Ipratropium (Duoneb) 3 ml INHALATION Q4HWA.RT EVANS Last Admin: 12/14/18 06:36 Dose: 3 ml Documented by: Amiodarone HCl (Cordarone) 200 mg PO DAILY [facility] Last Admin: 12/13/18 09:48 Dose: 200 mg Documented by: Apixaban (Eliquis) 5 mg PO BID [facility] Last Admin: 12/13/18 21:55 Dose: 5 mg Documented by: Artificial Tears (Tears Naturale, Artificial Tears) 1 - 2 drop OPHTHALMIC PRN PRN PRN Reason: DRY EYES Last Admin: 12/13/18 09:49 Dose: 1 drop Documented by: Atorvastatin Calcium (Lipitor) 20 mg PO QHS [facility] Last Admin: 12/13/18 21:55 Dose: 20 mg Documented by: Budesonide (Pulmicort Aerosol) 0.5 mg INHALATION Q12H.RT [facility] Last Admin: 12/14/18 06:36 Dose: 0.5 mg Documented by: Fluticasone Propionate (Flonase Nasal [place]) 2 spray NASAL DAILY PRN PRN PRN Reason: ALLERGIES Last Admin: 12/14/18 02:17 Dose: 2 spray Documented by: Guaifenesin (Robitussin Dm) 10 ml PO Q6H PRN PRN PRN Reason: COUGH Last Admin: 12/13/18 21:54 Dose: 10 ml Documented by: Hydrocortisone (Hytone) 1 applic TOPICAL BID PRN PRN; Protocol PRN Reason: ITCHING Last Admin: 12/12/18 16:30 Dose: 1 applicatio Documented by: Hydroxyzine HCl (Atarax Tablet) 10 mg PO 4X/DAY PRN PRN PRN Reason: PRURITIS Last Admin: 12/13/18 10:19 Dose: 10 mg Documented by: Sodium Chloride () 250 mls @ 15 mls/hr IV .[id number] PRN PRN Reason: Saline Flush Levofloxacin (Levaquin Iv) 750 mg in 150 mls @ 100 mls/hr IV Q24 [facility] Last Infusion: 12/13/18 11:53 Dose: Infused Documented by: Loratadine (Claritin) 10 mg PO DAILY [facility] Last Admin: 12/13/18 09:47 Dose: 10 mg Documented by: Metoprolol Tartrate (Lopressor (Beta Ezio)) 25 mg PO BID [facility] Last Admin: 12/13/18 21:55 Dose: 25 mg Documented by: Ondansetron HCl (Zofran) 4 mg PO Q6H PRN PRN PRN Reason: NAUSEA Pantoprazole Sodium (Protonix) 20 mg PO DAILY [facility] Last Admin: 12/13/18 09:48 Dose: 20 mg Documented by: Sodium Chloride () 5 - 15 ml IV UD PRN PRN Reason: SALINE FLUSH Verapamil HCl (Calan Sr) 240 mg PO DAILY [facility] Last Admin: 12/13/18 09:47 Dose: 240 mg Documented by: STROKE Vital Signs/Narrative: Vital Signs Pulse Resp Pulse Ox 12/14/18 07:09 119 H 12/14/18 06:36 111 H 16 93 Medical Necessity - Tobacco Use Smoking Status: Never smoker Assessment/Plan All Active Problems Chest pain, unspecified (Acute) New onset atrial fibrillation (Acute) Community acquired bilateral lower lobe pneumonia (Acute) Respiratory failure with hypoxia (Acute) Atrial fibrillation with rapid ventricular response (Acute) Sepsis due to pneumonia (Acute) CVA (cerebral vascular accident) (Acute) Balance problem (Acute) 1. Sepsis secondary hospital acquired pneumonia/asthma exacerbation -She is having improvement on Levaquin, will continue -Part of her sepsis criteria was probably met by the fact that she is in A. fib -Continue with duo nebs and Pulmicort as well as incentive spirometer -History panel was negative, and cultures have been negative -She is refusing steroids as this gives her diarrhea -Pain and ambulatory pulse ox and arrange for her oxygen on discharge if necessary 2. A. fib with RVR/HTN -Exacerbated by sepsis -Heart rate is usually higher in the morning before she is taken her medications -Continue with her home metoprolol, verapamil, amiodarone -Blood pressures have been controlled and stable -Continue with Eliquis 3. GERD -Stable -Continue with PPI DVT: Eliquis Code Visit Inpatient E&M: 27218 Subs Hosp L2
[2018-12-14] MEDS: APIXABAN 5 MG TABLET PO ×2 (10:56→21:13)
[2018-12-14] MEDS: Amiodarone 200 MG Tablet PO (10:56)
[2018-12-14] MEDS: Verapamil SR 240 MG Tablet PO (10:56)
[2018-12-14] MEDS: Loratadine 10 MG Tablet PO (10:56)
[2018-12-14] MEDS: Metoprolol Tartrate 25 MG Tablet PO ×2 (10:57→21:13)
[2018-12-14] MEDS: levoFLOXacin IV 750 MG/150 ML BAG 100 MG IV (11:03)
[2018-12-14] MEDS: Pantoprazole Sodium 20 MG Tablet PO (11:04)
[2018-12-14] MEDS: 0.9% Saline Lock 10 ML Syringe IV (11:04)
[2018-12-14] MEDS: Atorvastatin Calcium 20 MG Tablet PO (21:13)
[2018-12-15] VITALS (7 sets, daily range): BP systolic 122–135; BP diastolic 68–80; PULSE 77–133; RESP 16–18; TEMP 36.7–36.9; O2SAT 92–94
[2018-12-15] MEDS: guaiFENesin Dm 10 ML UDC PO (03:37)
[2018-12-15] MEDS: Budesonide Respules 0.5 MG/2 ML AMPUL.NEB. INHALATION (06:57)
[2018-12-15] MEDS: Ipratropium/Albuterol Sulfate 3 ML AMPUL.NEB INHALATION (06:57)
[2018-12-15] MEDS: Pantoprazole Sodium 20 MG Tablet PO (07:48)
[2018-12-15] MEDS: Metoprolol Tartrate 25 MG Tablet PO (07:48)
[2018-12-15] MEDS: Amiodarone 200 MG Tablet PO (07:48)
[2018-12-15] MEDS: Loratadine 10 MG Tablet PO (07:48)
[2018-12-15] MEDS: APIXABAN 5 MG TABLET PO (07:48)
[2018-12-15] MEDS: Verapamil SR 240 MG Tablet PO (07:49)
--- NOTE | 2018-12-15 08:57 | DCINST_ITS ---
- Discharge Diagnoses Current Active Problems: Current Active and Chronic Problems Community acquired bilateral lower lobe pneumonia (Acute) Respiratory failure with hypoxia (Acute) Atrial fibrillation with rapid ventricular response (Acute) Sepsis due to pneumonia (Acute) You will use the following diet at home:: Cardiac Your food should be the consistency of: Regular Your liquids should be the consistency of: Regular/Thin Discharge Activity: Return to Normal Activity Call your doctor if you observe: Fever of 101 or Higher, Shortness of breath, Dizziness, Fainting spells, Swelling in the ankles, Chest pain, Increased palpitations (irregular heartbeat) Allergies/Adverse Reactions: Allergies adhesive tape Allergy (Verified 12/12/18 07:39) Rash propoxyphene HCl [From Darvon] Allergy (Verified 12/12/18 07:39) Rash sulfamethoxazole [From Bactrim] Allergy (Verified 12/12/18 07:39) Shortness of breath trimethoprim [From Bactrim] Allergy (Verified 12/12/18 07:39) Shortness of breath venom-honey bee [bee venom (honey bee)] Allergy (Verified 12/12/18 07:39) Anaphylaxis venom-wasp [wasp venom] Allergy (Verified 12/12/18 07:39) Anaphylaxis prednisone Adverse Reaction (Verified 12/12/18 07:39) Diarrhea anything that stings Allergy (Uncoded 12/12/18 07:39) Anaphylaxis banana peppers Allergy (Uncoded 12/12/18 07:39) Hives FIBERGLASS Allergy (Uncoded 12/12/18 07:39) Shortness of breath Medications to take at Discharge Epi Pen (for allergic rxn) 0.3 mg IM X1 05/04/13 Loratadine [Claritin] 10 mg PO DAILY 05/04/13 Albuterol Sulfate [Ventolin Hfa] 2 puff IH Q6H PRN PRN 12/26/15 Pantoprazole Sodium [Protonix] 20 mg PO DAILY 12/26/15 CycloSPORINE Ophthalmic [Restasis Ophthalmic] 1 drop EACH EYE DAILY 03/28/16 Fluticasone/Salmeterol [Advair 100-50 Diskus] 1 each IH DAILY PRN PRN 03/28/16 Meclizine HCl 25 mg PO Q6H PRN 03/28/16 Atorvastatin Calcium [Lipitor] 20 mg PO DAILY 07/02/18 Fluticasone 0.05% [Flonase Nasal [place]] 2 spray NASAL DAILY PRN PRN 07/02/18 Albuterol Aerosols [Ventolin Aerosols] 2.5 mg INHALATION Q4HWA.RT 12/04/18 Bifidobacter. Bifidum/B.longum [Florajen Bifidoblend Capsule] 460 mg PO DAILY 12/04/18 Ondansetron [Zofran] 8 mg PO Q8H PRN PRN #30 tab 12/06/18 Verapamil HCl [Verapamil ER] 240 mg PO DAILY #30 tablet.er 12/06/18 Amiodarone HCl [Cordarone] 200 mg PO DAILY 12/12/18 Apixaban [Eliquis] 5 mg PO BID 12/12/18 Metoprolol Tartrate [Lopressor (beta danielle)] 25 mg PO BID 12/12/18 Levofloxacin [Levaquin] 750 mg PO DAILY #5 tab 12/15/18 The following prescriptions were given: Levofloxacin [Levaquin] 750 mg PO DAILY #5 tab Transmission Status: Pending to [facility]/pharmacy #[id number] Primary Care Physician: Paul Reynolds MD [Primary Care Provider] - Please follow up with your Primary Care Physician in: 3-5 days Test Results: Test results from this visit will be discussed in further detail at your follow- up appointment, if applicable. Please Follow Up With: Ludwin Sampson MD
--- NOTE | 2018-12-15 09:00 | DS.PCM_ITS ---
Discharge Date and Diagnosis - Problem List Patient Problems: Active and Suspected Problems Community acquired bilateral lower lobe pneumonia (Acute) Respiratory failure with hypoxia (Acute) Atrial fibrillation with rapid ventricular response (Acute) Sepsis due to pneumonia (Acute) Date of Admission: 12/12/18 Date of Discharge: 12/15/18 - Primary Discharge Diagnosis Active and Suspected Problems Community acquired bilateral lower lobe pneumonia (Acute) Respiratory failure with hypoxia (Acute) Atrial fibrillation with rapid ventricular response (Acute) Sepsis due to pneumonia (Acute) - Secondary Discharge Diagnosis Chronic Problems Asthma (Chronic) TIA (transient ischemic attack) (Chronic) HTN (hypertension) (Chronic) HLD (hyperlipidemia) (Chronic) Headache (Chronic) BMI greater than 30 (Chronic) Migraine (Chronic) GERD (gastroesophageal reflux disease) (Chronic) Asthma exacerbation (Chronic) Hospital Course and Treatment Imaging Results: CXR: IMPRESSION: Left lower lung airspace disease (suspected infection/pneumonia) Underlying COPD Consults: None Operations: None Procedures: None Summary of Care Provided: Per HPI: The patient is a 68 year old F with past medical history of atrial fibrillation, asthma, obesity, history of CVA, who presented to the emergency room with complaints of shortness of breath. The patient had recently been to the hospital for chest pain underwent a stress test and echo which were negative and treated by cardiology for atrial fibrillation, who presents to the emergency room with increased shortness of breath. She was hypoxic at 88% but stable on 3 L of oxygen. She had a low-grade fever, she was significantly tachycardic to 145 with atrial fibrillation as the underlying rhythm. She also had leukocytosis, abnormal LFTs, and low potassium. She did report fevers and chills subjectively at home. She has a cough that is occasionally productive of clear sputum. She reports no further chest pain. Hospital Course: 1. Sepsis due to hospital-acquired pneumonia/asthma [id number] female who was discharged about a week ago after having an episode of A. fib with RVR and chest pain status post stress test. She presents to the hospital with shortness of breath, cough and hypoxia. She was started on Levaquin and has consistently improved every day. Yesterday she was on 1 L nasal cannula and wanted to stay the night to see if she can get off the oxygen before discharge. She states that she would not take prednisone because it gives her significant diarrhea. Today she is oxygenating very well on room air. She is ambulating and does not need any oxygen with ambulation based on amatory pulse ox. We will continue the Levaquin for 5 more days to complete a 7-day course. Cultures so far been negative and a respiratory panel was also negative. She is to resume all of her home inhaler medications and follow-up with her primary care doctor in 3 to 5 days. I discussed with her the risks and benefits of discharge and she expressed understanding. 2. Her other medical diagnoses were evaluated and her home medications were continued where appropriate Patient Problems: Active and Suspected Problems Community acquired bilateral lower lobe pneumonia (Acute) Respiratory failure with hypoxia (Acute) Atrial fibrillation with rapid ventricular response (Acute) Sepsis due to pneumonia (Acute) Objective: General: Alert, Oriented x3, Cooperative, No apparent distress HEENT: Atraumatic, PERRLA, EOMI, Normocephalic Oral: Moist Mucosa Neck: Supple, No JVD Lungs: Clear to auscultation, Normal air movement, No rhonchi, No wheeze, No rales Cardiovascular: Normal S1, Normal S2, No murmurs, Irregular Rate, - - Irregular rhythm Abdomen: Soft, Non Tender, Non-Distended, No Hepato-splenomegaly Extremities: No edema, Capillary Refill Less than 3 Seconds Skin: No rashes, No breakdown Neurological: Neuro grossly intact, Sensory exam intact to light touch and pain Psych/Mental Status: Normal Affect, Appropriate - Physical Exam Vital Signs Temp Pulse Resp BP Pulse Ox 98.0 F 133 H 18 130/80 H 94 12/15/18 07:45 12/15/18 07:48 12/15/18 07:45 12/15/18 07:45 12/15/18 07:45 Oxygen Flow Rate (L/min) 1 Oxygen Delivery Method Room Air Weight: 186 lb 4.65 oz Body Mass Index (BMI) 30.0 Intake and Output for Last 24 Hours 12/13/18 12/14/18 12/15/18 23:59 23:59 23:59 Intake Total 1150 / 1150 760 / 760 240 / 240 Balance 1150 / 1150 760 / 760 240 / 240 Microbiology Past 72 Hours 12/12/18 08:00 Blood Culture - Preliminary Blood Culture (Wb) - Right Forearm No growth in 48 hours. 12/12/18 08:50 Blood Culture - Preliminary Blood Culture (Wb) - Left Hand No growth in 48 hours. 12/12/18 16:25 Urine Culture - Preliminary Urine, Catheterized Culture exhibits no growth. 12/12/18 15:33 Respiratory Panel (PCR) - Final Mucosa - Nasopharyngeal 12/12/18 16:25 Streptococcus pneumoniae Antigen (M - Final Urine, Clean Catch 12/12/18 16:25 Legionella Antigen - Final Urine, Clean Catch Discharge Activity: Return to Normal Activity Call your doctor if you observe: Fever of 101 or Higher, Shortness of breath, Dizziness, Fainting spells, Swelling in the ankles, Chest pain, Increased palpitations (irregular heartbeat) Home Medications: Medications to take at Discharge Epi Pen (for allergic rxn) 0.3 mg IM X1 05/04/13 Loratadine [Claritin] 10 mg PO DAILY 05/04/13 Albuterol Sulfate [Ventolin Hfa] 2 puff IH Q6H PRN PRN 12/26/15 Pantoprazole Sodium [Protonix] 20 mg PO DAILY 12/26/15 CycloSPORINE Ophthalmic [Restasis Ophthalmic] 1 drop EACH EYE DAILY 03/28/16 Fluticasone/Salmeterol [Advair 100-50 Diskus] 1 each IH DAILY PRN PRN 03/28/16 Meclizine HCl 25 mg PO Q6H PRN 03/28/16 Atorvastatin Calcium [Lipitor] 20 mg PO DAILY 07/02/18 Fluticasone 0.05% [Flonase Nasal [place]] 2 spray NASAL DAILY PRN PRN 07/02/18 Albuterol Aerosols [Ventolin Aerosols] 2.5 mg INHALATION Q4HWA.RT 12/04/18 Bifidobacter. Bifidum/B.longum [Florajen Bifidoblend Capsule] 460 mg PO DAILY 12/04/18 Ondansetron [Zofran] 8 mg PO Q8H PRN PRN #30 tab 12/06/18 Verapamil HCl [Verapamil ER] 240 mg PO DAILY #30 tablet.er 12/06/18 Amiodarone HCl [Cordarone] 200 mg PO DAILY 12/12/18 Apixaban [Eliquis] 5 mg PO BID 12/12/18 Metoprolol Tartrate [Lopressor (beta danielle)] 25 mg PO BID 12/12/18 Levofloxacin [Levaquin] 750 mg PO DAILY #5 tab 12/15/18 Following Prescrptions Were Given to Patient: Levofloxacin [Levaquin] 750 mg PO DAILY #5 tab Transmission Status: Pending to [facility]/pharmacy #[id number] Primary Care Physician: Paul Reynolds MD [Primary Care Provider] - Please follow up with your Primary Care Physician in: 3-5 days Please Follow Up With: Paul Reynolds MD Please Follow Up With: Ludwin Sampson MD Disposition: Home Minutes spent on discharge:: 35 Patient Condition:: Stable Medical Necessity - Tobacco Use Smoking Status: Never smoker Meaningful Use Info Meaningful Use Diagnoses (Choose all that apply): None applicable Code Visit Inpatient E&M: 24737 Disch Hosp
--- NOTE | 2018-12-16 14:12 | CASEMGMT ---
CHAPARRITA CM DC PHONE CALL DC DATE: 12/15/18 DC Disposition: Home Diagnosis on Discharge: Sepsis/pneumonia/asthma LACE/STRATA: 13/4 Attempted call to phone. No answer and no message machine with name identifier. Ben WHALEY RN ACM
== END 2018-12-15 10:28 | disposition home or self-care (01) | DRG 871 ==
LOC: ED 08:24 → PCU 09:25
PROVIDERS: Physician Assistant; Admitting Provider Family Medicine; Emergency Provider Emergency Medicine; Family Provider Family Medicine; PCP Family Medicine; Referring Provider Family Medicine; Visit Provider Family Medicine
DX: A41.9 Sepsis, unspecified organism (principal); J18.9 Pneumonia, unspecified organism; J96.01 Acute respiratory failure with hypoxia; J44.0 Chronic obstructive pulmonary disease with (acute) lower respiratory infection; Y95 Nosocomial condition; I48.91 Unspecified atrial fibrillation; E87.6 Hypokalemia; I10 Essential (primary) hypertension; E78.5 Hyperlipidemia, unspecified; G43.909 Migraine, unspecified, not intractable, without status migrainosus; K21.9 Gastro-esophageal reflux disease without esophagitis; E66.9 Obesity, unspecified; Z68.30 Body mass index [BMI] 30.0-30.9, adult; Z79.01 Long term (current) use of anticoagulants; Z79.899 Other long term (current) drug therapy; Z87.440 Personal history of urinary (tract) infections; Z86.73 Personal history of transient ischemic attack (TIA), and cerebral infarction without residual deficits; J45.909 Unspecified asthma, uncomplicated; Z79.82 Long term (current) use of aspirin
CPT/HCPCS: 36415; 36600; 71045; 71275; 80048; 80053; 81001; 82803; 83605; 83735; 84484; 85025; 85610; 85730; 87040; 87086; 87449; 87633; 93005; 94640; 94667; 94668; 96361; 96374; 96375; 97110; 97162; 97166; 97535; 97802; 99285; J7030; Q9967; A4216; J2405

== ENCOUNTER → 2019-01-01 07:51 | Outpatient (CLI) | payer MEDICARE, SELFPAY ==
[2018-12-26 13:31] VITALS: BMI 29.3
--- NOTE | 2019-01-02 10:16 | PFT ---
INTRODUCTION: The patient is a 68-year-old female that presents for pulmonary function studies secondary to a diagnosis of amiodarone therapy. Respiratory therapy reports good patient effort. Bronchodilators were used during testing. INTERPRETATION: Forced expiration spirometry demonstrates no evidence of a large airways obstructive ventilatory defect. There was no significant response to aerosolized bronchodilators. Spirograms are of good quality and plateau normally. Body plethysmography was performed and reveals lung volumes to be within normal limits. Diffusing capacity by single breath CO is also within normal limits. IMPRESSION: Normal pulmonary function studies.
== END ==
LOC: PSN 07:52
PROVIDERS: Family Provider Family Medicine; PCP Family Medicine; Referring Provider Internal Medicine Cardiovascular Disease; Visit Provider Internal Medicine Cardiovascular Disease
DX: J45.901 Unspecified asthma with (acute) exacerbation (principal); I48.91 Unspecified atrial fibrillation
CPT/HCPCS: 94060; 94726; 94729

== ENCOUNTER 2019-01-07 12:22 | Emergency (ER) | payer MEDICARE, SELFPAY ==
[2018-12-26 13:31] VITALS: BMI 29.3
[2019-01-07 12:23] VITALS: BP 130/71; PULSE 71; RESP 19; TEMP 36.8; O2SAT 93; BMI 28.0
[2019-01-07 12:49] VITALS: O2SAT 91
--- NOTE | 2019-01-07 12:49 | EKG12_ITS ---
Test Reason : CP Blood Pressure : / mmHG Vent. Rate : 078 BPM Atrial Rate : 078 BPM P-R Int : 156 ms QRS Dur : 078 ms QT Int : 408 ms P-R-T Axes : 077 023 063 degrees QTc Int : 465 ms Normal sinus rhythm Normal ECG Confirmed by MAX SAMPSON ([id number]), editor trade journal AMPARO ROMAN ([id number]) on 01/10/2019 11:19:02 AM Referred By: Max Sampson Confirmed By:MAX SAMPSON
--- NOTE | 2019-01-07 12:49 | RAD_ITS ---
STUDY: X-RAY CHEST REASON FOR EXAM: Female, 68 years old. Chest pain. Shortness of breath. TECHNIQUE: Single AP portable view of the chest. COMPARISON: Comparison is made with prior study dated December 12, 2018. FINDINGS: EKG electrodes are seen. Scattered calcified granulomas. Blunting of the left costo phrenic angle with minimal increased markings at the left lung base suggestive of a atelectasis. This has improved as compared to prior study. Normal size heart. Normal mediastinum and gagandeep. Normal visualized pulmonary arteries. There is atherosclerotic tortuosity of the aortic arch and descending thoracic aorta. There are degenerative changes of the visualized thoracic spine. Normal visualized ribs, clavicles, and shoulders. There is no demonstrated abnormality of the visualized soft tissue structures of the upper abdomen. RAD/Chest 1 View (Portable) IMPRESSION: Blunting of the left costophrenic angle with mild increased markings at the left lung base. This has improved as compared to prior study. Electronically Signed: Magdiel Cheung, at 13:25 EST , Service support ,
--- NOTE | 2019-01-07 12:53 | ED.DCSUM_ITS ---
- ER Visit Summary Date of Service: 01/07/19 Chief Complaint: Chest pain History of Present Illness: The patient is a 68 F with chest pain that woke her up overnight. Pain is retrosternal. It feels like a tightness. Nothing seems to make it better or worse. She has a recent admission for pneumonia, resp iratory failure, and sepsis. She has completed antibiotics. She is not currently on anything for this pain. She also has a history of A. fib. She is on amiodarone and Eliquis. She denies any current steroid use or antibiotics. Physical Examination: Afebrile and vital signs are unremarkable. Patient alert and oriented. No acute distress. Sitting, breathing, moving comfortably. Heart regular rate and rhythm. Lungs diminished but clear. Abdomen soft and nontender. Extremities nontender with no edema. Test Results: EKG showed sinus rhythm at a rate of 78. No sign of ischemia or infarction pattern. Laboratory studies and x-ray pending. Emergency Department Course and Treatment: Patient was treated with aspirin for pain. She also received a breathing treatment. She was placed on a monitor. Will check labs, EKG, chest x-ray. Hemoglobin 15.5, chloride 109, troponin normal. Chest x-ray showed improved left base changes. On reevaluation, the patient is feeling better. She has had a cardiac evaluation. She is on blood thinners. She is not septic. Her pneumonia is improving. I believe she is appropriate for outpatient care. Patient will be discharged to follow-up with her family doctor. Treatment Plan: As above Disposition: Discharge Impression: 1. Chest pain atypical This note was generated with [employer] dictation software. It may contain incorrect words, spelling, and punctuation that were not noted in review of the chart prior to signing ED Disposition - Plan for ED Patient: Referrals: Paul Reynolds MD [Primary Care Provider] -
[2019-01-07 12:58] VITALS: PULSE 65; RESP 18
[2019-01-07 12:58] LABS: Absolute Lymphocyte Count 2.14 X10^3/uL (0.83-4.51); Absolute Neutrophil Count 4.8 X10^3/uL (2.0-7.7); Basophil# 0.06 X10^3/uL; Basophil% 0.7 % (0-1); Eosinophil# 0.52 X10^3/uL; Eosinophils% 6.4 % (0-5); Hematocrit 47.7 % (37-47); Hemoglobin 15.5 g/dL (12.0-15.0); Lymphocyte # 2.14 X10^3/ul (4.0); Lymphocyte % 26.3 % (19-41); Mean Corp Hgb Conc 32.5 g/dL (32-36); Mean Corpuscular Volume 89.3 fL (81-99); Mean Platelet Vol. 10.1 fl (6.2-12.0); Monocyte# 0.61 X10^3/uL; Monocyte% 7.5 % (0-10); NRBC Flagged by Analyzer 0 % (0-5); Neutrophil # 4.77 X10^3/uL (2.7-7.7); Neutrophil % 58.7 % (47-70); Platelet Count 234 K/mm3 (150-450); RBC Distribution Width CV 12.6 % (11.6-14.6); Red Blood Count 5.34 M/mm3 (4.2-5.4); White Blood Count 8.1 K/mm3 (4.4-11.0)
[2019-01-07] MEDS: Ipratropium/Albuterol Sulfate 3 ML AMPUL.NEB INHALATION (12:58)
[2019-01-07] MEDS: Aspirin 81 MG TAB.CHEW 324 MG PO (13:12)
[2019-01-07 13:17] LABS: Anion Gap 6 (5-15); BUN 14 mg/dL (7-18); BUN/Creat Ratio 18.6 RATIO (10-20); Calcium,Total 8.7 mg/dL (8.5-10.1); Chloride 109 mmol/L (98-107); Creatinine, Serum 0.75 mg/dL (0.55-1.02); EST Glomerular Filtration Rate 82 mL/min (>60); Est Glom Filt Rate - Afr Amer 99 mL/min (>60); Estimated Creatinine Clearance 51.11 ml/min; Glucose 86 mg/dL (74-106); Potassium 3.5 mmol/L (3.5-5.1); Sodium Level 142 mmol/L (136-145)
--- NOTE | 2019-01-07 15:26 | ED.DEP ---
ED Disposition - Plan for ED Patient: Instructions: CHEST PAIN, Uncertain Cause Referrals: Paul Reynolds MD [Primary Care Provider] -
[2019-01-07 15:36] VITALS: BP 124/70; PULSE 61; RESP 20; O2SAT 94
== END 2019-01-07 15:42 | disposition home or self-care (01) ==
LOC: ED 13:11
PROVIDERS: Emergency Provider Emergency Medicine; Family Provider Family Medicine; PCP Family Medicine
DX: R07.89 Other chest pain (principal); I48.91 Unspecified atrial fibrillation; I10 Essential (primary) hypertension; J45.909 Unspecified asthma, uncomplicated; K21.9 Gastro-esophageal reflux disease without esophagitis; Z79.01 Long term (current) use of anticoagulants; Z79.899 Other long term (current) drug therapy; Z86.73 Personal history of transient ischemic attack (TIA), and cerebral infarction without residual deficits; Z87.01 Personal history of pneumonia (recurrent)
CPT/HCPCS: 71045; 80048; 84484; 85025; 93005; 94640; 99284; A4216

== ENCOUNTER → 2019-02-05 10:45 | Outpatient (CLI) | payer MEDICARE, SELFPAY ==
[2019-01-07 12:23] VITALS: BMI 28.0
[2019-02-05 11:20] LABS: International Normalized Ratio 1.1; Prothrombin Time (Protime)PT. 14.2 SECONDS (11.7-14.9)
== END ==
PROVIDERS: Family Provider Family Medicine; PCP Family Medicine; Referring Provider Internal Medicine Cardiovascular Disease; Visit Provider Internal Medicine Cardiovascular Disease
DX: I48.91 Unspecified atrial fibrillation (principal); Z79.01 Long term (current) use of anticoagulants
CPT/HCPCS: 36415; 85610

== ENCOUNTER 2019-02-10 17:50 | Inpatient (IN) | payer MEDICARE, SELFPAY ==
[2019-02-10] VITALS (8 sets, daily range): BP systolic 120–148; BP diastolic 57–108; PULSE 80–102; RESP 18–24; TEMP 36.8–39.4; O2SAT 91–95; BMI 31.1; BMI 29.5
--- NOTE | 2019-02-10 18:05 | EKG12_ITS ---
Test Reason : Blood Pressure : / mmHG Vent. Rate : 082 BPM Atrial Rate : 082 BPM P-R Int : 156 ms QRS Dur : 074 ms QT Int : 398 ms P-R-T Axes : 068 028 046 degrees QTc Int : 464 ms Normal sinus rhythm Nonspecific T wave abnormality Abnormal ECG Confirmed by ROBBIE ALLEN, PRINCESS ([id number]), brands editor DERECK ALBA ([id number]) on 02/12/2019 12:55:44 PM Referred By: DONOVAN Confirmed By:PRINCESS AVALOS MD
--- NOTE | 2019-02-10 18:06 | ED.DCSUM_ITS ---
History of Present Illness Chief Complaint: Cough Informant: Patient Onset: Today Narrative: Presents evaluation chills and Rigors since this morning. Fever after lunch. Nonproductive cough. Diagnosed with UTI yesterday urgent care on Macrobid status post 2 doses. Dysuria improved very however has still frequency. No back pain or abdominal pain. No nausea or vomiting. History of atrial fibrillation on verapamil and transition to warfarin a month ago. History of hypertension, COPD. No dyspnea. No wheezing. Prior similar symptoms: No Past Medical History - Allergies and Home Meds Allergies/Adverse Reactions: Allergies adhesive tape Allergy (Verified 02/10/19 17:59) Rash propoxyphene HCl [From Darvon] Allergy (Verified 02/10/19 17:59) Rash sulfamethoxazole [From Bactrim] Allergy (Verified 02/10/19 17:59) Shortness of breath trimethoprim [From Bactrim] Allergy (Verified 02/10/19 17:59) Shortness of breath venom-honey bee [bee venom (honey bee)] Allergy (Verified 02/10/19 17:59) Anaphylaxis venom-wasp [wasp venom] Allergy (Verified 02/10/19 17:59) Anaphylaxis prednisone Adverse Reaction (Verified 02/10/19 17:59) Diarrhea anything that stings Allergy (Uncoded 02/10/19 17:59) Anaphylaxis banana peppers Allergy (Uncoded 02/10/19 17:59) Hives FIBERGLASS Allergy (Uncoded 02/10/19 17:59) Shortness of breath Primary Care Physician: Paul Reynolds MD [Primary Care Provider] - Surgical History: - - Cholecystectomy, hysterectomy, right mastoid tumor resection. Smoking Status: Never smoker - Family History Paternal Family History: Family History (Last Reviewed 12/26/18 @ 13:31 by Shameka Cox) Father CAD (coronary artery disease) Family History: Reports: Heart Disease Maternal Family History: Family History (Last Reviewed 12/26/18 @ 13:31 by Shameka Cox) Father CAD (coronary artery disease) Family History: Reports: Unknown - Patient notes that she does not know any maternal history, mother never went to the doctor. She denies any known history of heart disease, diabetes or cancer. Review of Systems General: Reports: Chills, Fever Eyes: Denies: Visual changes - bilaterally, Diplopia ENT: Denies: Rhinorrhea, Sore throat Cardiovascular: Denies: Chest pain, Palpitations Respiratory: Reports: Cough Gastrointestinal: Denies: Abdominal pain, Nausea, Vomiting, Diarrhea, Melena, Hematochezia Genitourinary: Reports: Frequency. Denies: Dysuria, Hematuria Musculoskeletal: Denies: Back pain, Extremity Pain Skin: Denies: Rash, Wounds Neurological: Denies: Headache, Weakness, Numbness Physical Exam Vital Signs/Narrative: Vital Signs Temp Pulse Resp BP Pulse Ox 02/10/19 17:56 102.9 F H 91 24 H 148/108 H 93 Inital Vital Signs reviewed: Yes General: Well nourished, Well developed, No Acute Distress Head: Normocephalic, Atraumatic Eyes: Perrl, EOMI ENT: Moist mucous membranes, No rhinorrhea Neck: Supple, Nontender Cardiovascular: Regular rate, Regular rhythm, No murmurs Respiratory: No distress, CTA bilaterally, Chest nontender Abdomen: Soft, Nontender, Nondistended, Normal bowel sounds Back: Nontender, Normal Inspection Extremities: Nontender, No edema Skin: Normal color, No rash Neurological: Alert, Oriented x3, Cranial nerves II-XII grossly intact, Normal Strength, Normal Sensation Psychological: Normal affect, Normal Mood Diagnostic/Tx/Re-eval Clinical Impression(s) from Imaging Studies Chest X-Ray 02/10/19 18:07 IMPRESSION: 1. Developing bibasilar infiltrates, left more than right. Electronically Signed: Maldonado Rivas MD ([place]) at 18:27 EST , Service support , Abnormal Lab Results 02/10/19 02/10/19 02/10/19 18:35 18:35 18:35 WBC 11.9 H RBC 4.87 Hgb 14.2 Hct 43.4 MCV 89.1 MCH 29.2 MCHC 32.7 RDW Std Deviation 41.0 RDW Coeff of Kahlil 12.5 Plt Count 220 MPV 10.0 Immature Gran % (Auto) 0.700 Neut % (Auto) 87.2 H Lymph % (Auto) 5.2 L Mcduffie % (Auto) 4.8 Eos % (Auto) 2.0 Baso % (Auto) 0.1 Absolute Neuts (auto) 10.4 H Absolute Lymphs (auto) 0.62 L Nucleated RBC % 0 PT 14.6 INR 1.2 APTT 28.1 Sodium 145 Potassium 3.6 Chloride 111 H Carbon Dioxide 27.0 Anion Gap 7 BUN 16 Creatinine 0.89 Estim Creat Clear Calc 57.42 Est GFR (MDRD) Af Amer 81 Est GFR (MDRD) Non-Af 67 BUN/Creatinine Ratio 18.0 Glucose 90 Lactic Acid Calcium 8.8 Total Bilirubin 0.70 AST 29 ALT 30 Alkaline Phosphatase 139 H Total Protein 7.1 Albumin 3.9 Globulin 3.2 Albumin/Globulin Ratio 1.2 Urine Color Urine Clarity Urine pH Ur Specific Harbinger Urine Protein Urine Glucose (UA) Urine Ketones Urine Occult Blood Urine Nitrite Urine Bilirubin Urine Urobilinogen Ur Leukocyte Esterase Urine RBC Urine WBC Ur Squamous Epith Cells Urine Bacteria Urine Mucus 02/10/19 02/10/19 18:35 19:18 WBC RBC Hgb Hct MCV MCH MCHC RDW Std Deviation RDW Coeff of Kahlil Plt Count MPV Immature Gran % (Auto) Neut % (Auto) Lymph % (Auto) Mcduffie % (Auto) Eos % (Auto) Baso % (Auto) Absolute Neuts (auto) Absolute Lymphs (auto) Nucleated RBC % PT INR APTT Sodium Potassium Chloride Carbon Dioxide Anion Gap BUN Creatinine Estim Creat Clear Calc Est GFR (MDRD) Af Amer Est GFR (MDRD) Non-Af BUN/Creatinine Ratio Glucose Lactic Acid 1.4 Calcium Total Bilirubin AST ALT Alkaline Phosphatase Total Protein Albumin Globulin Albumin/Globulin Ratio Urine Color Yellow Urine Clarity Sl. Cloudy Urine pH 5.0 Ur Specific Harbinger 1.010 Urine Protein Negative Urine Glucose (UA) Normal Urine Ketones Negative Urine Occult Blood Negative Urine Nitrite Negative Urine Bilirubin Negative Urine Urobilinogen Normal Ur Leukocyte Esterase 25 H Urine RBC 0 SEEN Urine WBC 0-5 SEEN Ur Squamous Epith Cells 0-5 SEEN Urine Bacteria 1+ Urine Mucus 0 SEEN - EKG Initial EKG Interpretation: Sinus Rhythm - Sinus rate of 82, no ST changes. T wave nonspecific changes inferior leads. - Medical Decision Making Patient temp of 102.9 on arrival initial order for Tylenol however she took it before she came. Sepsis work-up initiated. She is in no respiratory distress. Influenza returned negative. Chest x-ray bibasilar infiltrate developing left greater than right. White count 11.9. Lactic acid 1.4. Temp was improving on recheck. With bibasilar infiltrate along with high fever I do feel she will benefit from inpatient monitoring. Rocephin Zithromax started. Discussed with Dr. Licona for admission. ED Disposition - Plan for ED Patient: Disposition: [facility] Diagnosis: Pneumonia, Fever Referrals: Paul Reynolds MD [Primary Care Provider] -
--- NOTE | 2019-02-10 18:07 | RAD_ITS ---
STUDY: X-RAY CHEST REASON FOR EXAM: Female, 68 years old. Cough since 9:00 AM this morning TECHNIQUE: AP COMPARISON: 01/07/2019 FINDINGS: Bronchovascular attenuations and reticulation of bilateral lung bases partially obscures the left hemidiaphragm but also with mild degree of involvement in the right lung base. No cavitating process. There is pleural fibrotic thickening of the pulmonary lung apices. Normal size heart. Normal mediastinum and gagandeep. Normal visualized pulmonary arteries. There is atherosclerotic tortuosity of the aortic arch and descending thoracic aorta. No acute bony process. There is no demonstrated abnormality of the visualized soft tissue structures of the upper abdomen. RAD/Chest 1 View (Portable) IMPRESSION: 1. Developing bibasilar infiltrates, left more than right. Electronically Signed: Maldonado Rivas MD ([place]) at 18:27 EST , Service support ,
[2019-02-10] MEDS: Acetaminophen 500 MG Tablet 1000 MG PO (18:15)
[2019-02-10 18:55] LABS: Absolute Lymphocyte Count 0.62 X10^3/uL (0.83-4.51); Absolute Neutrophil Count 10.4 X10^3/uL (2.0-7.7); Basophil# 0.01 X10^3/uL; Basophil% 0.1 % (0-1); Eosinophil# 0.24 X10^3/uL; Hematocrit 43.4 % (37-47); Hemoglobin 14.2 g/dL (12.0-15.0); Lymphocyte # 0.62 X10^3/ul (4.0); Lymphocyte % 5.2 % (19-41); Mean Corp Hgb Conc 32.7 g/dL (32-36); Mean Corpuscular Hgb 29.2 pg (27.0-32.0); Mean Corpuscular Volume 89.1 fL (81-99); Monocyte# 0.57 X10^3/uL; Monocyte% 4.8 % (0-10); NRBC Flagged by Analyzer 0 % (0-5); Neutrophil # 10.39 X10^3/uL (2.7-7.7); Neutrophil % 87.2 % (47-70); Platelet Count 220 K/mm3 (150-450); RBC Distribution Width CV 12.5 % (11.6-14.6); Red Blood Count 4.87 M/mm3 (4.2-5.4); White Blood Count 11.9 K/mm3 (4.4-11.0)
[2019-02-10 19:05] LABS: International Normalized Ratio 1.2; Prothrombin Time (Protime)PT. 14.6 SECONDS (11.7-14.9)
[2019-02-10 19:06] LABS: Partial Thromboplast Time 28.1 Seconds (24.1-36.2)
[2019-02-10 19:26] LABS: Mucous, Urine 0 SEEN /hpf (<or=2+); Red Blood Cells-Urine 0 SEEN /hpf (0-5)
[2019-02-10 19:29] LABS: ALB/GLOB Ratio 1.2 RATIO (0.9-2.4); AST(SGOT) 29 U/L (15-37); Alanine Aminotransfer ALT/SGPT 30 U/L (13-56); Albumin, Serum 3.9 g/dL (3.2-5.0); Alkaline Phosphatase 139 U/L (45-117); Anion Gap 7 (5-15); BUN 16 mg/dL (7-18); Calcium,Total 8.8 mg/dL (8.5-10.1); Chloride 111 mmol/L (98-107); Creatinine, Serum 0.89 mg/dL (0.55-1.02); EST Glomerular Filtration Rate 67 mL/min (>60); Est Glom Filt Rate - Afr Amer 81 mL/min (>60); Estimated Creatinine Clearance 57.42 ml/min; Globulin 3.2 g/dL (2.2-4.2); Glucose 90 mg/dL (74-106); Potassium 3.6 mmol/L (3.5-5.1); Protein, Total 7.1 g/dL (6.4-8.2); Sodium Level 145 mmol/L (136-145)
[2019-02-10] MEDS: Ceftriaxone 1 GM/50 ML BAG IV (19:34)
[2019-02-10 19:39] LABS: Color, Urine Yellow (Yellow); Glucose, Dipstick Normal (Normal); Ketone-Dipstick Negative (Negative); Leukocyte Esterase-Dipstick 25 /ul (Negative); Nitrite-Dipstick Negative (Negative); Occult Blood-Urine Negative /ul (Negative); Protein-Dipstick Negative (Negative); Urine Bilirubin Dipstick Negative (Negative); Urine Clarity Sl. Cloudy (Clear); Urine Urobilinogen Normal (Normal)
[2019-02-10 19:48] LABS: Lactic Acid 1.4 mmol/L (0.4-1.9)
--- NOTE | 2019-02-10 20:07 | HP.PCM_ITS ---
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 (4) Atrial fibrillation Status: Chronic (5) Asthma Status: Chronic (6) TIA (transient ischemic attack) Status: Chronic (7) Chest pain, unspecified Status: Resolved (8) Aneurysm Status: Suspected (9) Community acquired bilateral lower lobe pneumonia Status: Resolved (10) Respiratory failure with hypoxia Status: Resolved (11) Atrial fibrillation with rapid ventricular response Status: Acute (12) Sepsis due to pneumonia Status: Resolved (13) CVA (cerebral vascular accident) Status: Acute Qualifiers: CVA mechanism: unspecified Qualified Code(s): I63.9 - Cerebral infarction, unspecified (14) HTN (hypertension) Status: Chronic Qualifiers: Hypertension type: essential hypertension Qualified Code(s): I10 - Essential (primary) hypertension (15) HLD (hyperlipidemia) Status: Chronic Qualifiers: Hyperlipidemia type: unspecified Qualified Code(s): E78.5 - Hyperlipidemia, unspecified (16) Headache Status: Chronic (17) Balance problem Status: Acute (18) BMI greater than 30 Status: Chronic (19) Migraine Status: Chronic Qualifiers: Migraine type: unspecified (20) GERD (gastroesophageal reflux disease) Status: Chronic Qualifiers: Esophagitis presence: without esophagitis Qualified Code(s): K21.9 - Bernard ro-esophageal reflux disease without esophagitis (21) Asthma exacerbation Status: Chronic Qualifiers: Asthma severity: unspecified severity Asthma persistence: unspecified Qualified Code(s): J45.901 - Unspecified asthma with (acute) exacerbation (22) UTI Status: Acute History of Present Illness Date of Admission: 02/10/19 Chief Complaint: Cough with generalized weakness and fever The patient is a 68 year old F with history of asthma/COPD came to ER with fever 102.9 fever at home and in ER. Patient stated she has been feeling generalized weak, sneezing and URI symptoms since Sunday but developed cough along with fever today. She is also short of breath. She went to urgent care for symptoms of burning micturition increased frequency and urgency/UTI and was started on nitrofurantoin. In ED, T1 102.9 Fahrenheit, heart rate 91, respiratory 24 pulse ox 93% on room air. Basic blood work shows leukocytosis 11.9 thousand with neutrophil 87%. Lactic acid normal. UA LE 25 WBCs 0-5 cells. Chest x-ray shows developing bibasilar infiltrates, left more than right. 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 (Chronic) Atrial fibrillation (Chronic) Asthma (Chronic) TIA (transient ischemic attack) (Chronic) HTN (hypertension) (Chronic) HLD (hyperlipidemia) (Chronic) Headache (Chronic) BMI greater than 30 (Chronic) Migraine (Chronic) GERD (gastroesophageal reflux disease) (Chronic) Asthma exacerbation (Chronic) Medical History: Medical History (Last Updated 12/27/18 @ 09:22 by Shameka Cox) On amiodarone therapy (Chronic) Z79.899 group home current use of anticoagulant (Chronic) Z79.01 Atrial fibrillation (Chronic) I48.91 Asthma (Chronic) J45.909 TIA (transient ischemic attack) (Chronic) G45.9 Chest pain, unspecified (Resolved) R07.9 Community acquired bilateral lower lobe pneumonia (Resolved) J18.1 Respiratory failure with hypoxia (Resolved) J96.91 Atrial fibrillation with rapid ventricular response (Acute) I48.91 Sepsis due to pneumonia (Resolved) J18.9, A41.9 CVA (cerebral vascular accident) (Acute) I63.9 HTN (hypertension) (Chronic) I10 HLD (hyperlipidemia) (Chronic) E78.5 Migraine (Chronic) G43.909 GERD (gastroesophageal reflux disease) (Chronic) K21.9 Asthma exacerbation (Chronic) J45.901 Allergies adhesive tape Allergy (Verified 02/10/19 17:59) Rash propoxyphene HCl [From Darvon] Allergy (Verified 02/10/19 17:59) Rash sulfamethoxazole [From Bactrim] Allergy (Verified 02/10/19 17:59) Shortness of breath trimethoprim [From Bactrim] Allergy (Verified 02/10/19 17:59) Shortness of breath venom-honey bee [bee venom (honey bee)] Allergy (Verified 02/10/19 17:59) Anaphylaxis venom-wasp [wasp venom] Allergy (Verified 02/10/19 17:59) Anaphylaxis prednisone Adverse Reaction (Verified 02/10/19 17:59) Diarrhea anything that stings Allergy (Uncoded 02/10/19 17:59) Anaphylaxis banana peppers Allergy (Uncoded 02/10/19 17:59) Hives FIBERGLASS Allergy (Uncoded 02/10/19 17:59) Shortness of breath Home Medications: Ambulatory Orders Medication Instructions Recorded Epi Pen (for allergic rxn) 0.3 mg IM X1 05/04/13 Loratadine [Claritin] 10 mg PO DAILY 05/04/13 Albuterol Sulfate [Ventolin Hfa] 2 puff IH Q6H PRN PRN 12/26/15 Pantoprazole Sodium [Protonix] 20 mg PO DAILY 12/26/15 CycloSPORINE Ophthalmic [Restasis 1 drp EACH EYE DAILY 03/28/16 Ophthalmic] Fluticasone/Salmeterol [Advair 1 ea IH DAILY PRN PRN 03/28/16 100-50 Diskus] Meclizine HCl 25 mg PO Q6H PRN 03/28/16 Atorvastatin Calcium [Lipitor] 40 mg PO DAILY 07/02/18 Fluticasone 0.05% [Flonase Nasal 2 spray NASAL DAILY PRN PRN 07/02/18 [place]] Albuterol Aerosols [Ventolin 2.5 mg INHALATION Q4HWA.RT 12/04/18 Aerosols] Bifidobacter. Bifidum/B.longum 460 mg PO DAILY 12/04/18 [Florajen Bifidoblend Capsule] Ondansetron [Zofran] 8 mg PO Q8H PRN PRN #30 tab 12/06/18 amiodarone 200 mg tablet 200 mg PO DAILY #90 tab 12/26/18 metoprolol tartrate 25 mg tablet 12.5 mg PO BID #90 tab 12/26/18 verapamil ER (SR) 240 mg 240 mg PO DAILY #90 tab 12/26/18 tablet,extended release warfarin 2 mg tablet 2 mg PO .COMPLEX #90 tab 02/05/19 Benzonatate 200 mg PO TID PRN 02/10/19 Glucosamine/D3/Boswellia Hortensia 1 ea PO DAILY 02/10/19 [Glucosamine Complex-Vit D3 Cpt] Lisinopril [Zestril] 10 mg PO DAILY 02/10/19 Nitrofurantoin Macrocrystals 100 mg PO BID 02/10/19 [Macrobid] Thiamine Mononitrate (Vit B1) 100 mg PO DAILY 02/10/19 [Vitamin B-1] Surgical History: Surgical History (Last Reviewed 12/26/18 @ 13:31 by Shameka Cox) History of cholecystectomy Z90.49 History of total hysterectomy Z90.710 history of mastoid tumor resection Surgical History: - - Cholecystectomy, hysterectomy, right mastoid tumor resection. 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 She denies any known history of heart disease, diabetes or cancer. Review of Systems Constitutional: Reports: Chills, Fever, Malaise, Weakness, Fatigue HEENT: Reports: Head Aches, Nasal Congestion, Post Nasal Drip, Sinus Congestion, Sore Throat. Denies: Sinus Drainage Cardiovascular: Denies: Chest Pain, Palpitations Respiratory: Reports: Cough, Shortness of breath at rest, Shortness of breath upon exertion. Denies: Hemoptysis, Pleuritic Pain, Sputum production Gastrointestinal: Denies: Abdominal Pain, Nausea, Vomiting Genitourinary: Reports: Dysuria, Frequency, Incontinence, Urgency Musculoskeletal: Denies: Joint Pain, Joint Tenderness Skin: Denies: Rash, Wounds Neurological: Reports: Balance problems, - - Chronic left foot drop wears a splint. Denies: Focal weakness, Numbness, Tingling Psychiatric: Denies: Anxiety, Depression, Homicidal Ideations, Suicidal Ideations Hematologic/ Lymphatic: Denies: Easy Bruising, Easy Bleeding VTE Information - Inpt Only VTE Present on Admission: No VTE Mechan Device Prophylaxis: None VTE Pharm Prophylaxis ordered?: Yes Patient Problems: Active and Suspected Problems (Last Updated 12/27/18 @ 09:22 by Shameka Cox) Pneumonia (Acute) UTI (Acute) - Physical Exam Vitals/I&O's: Vital Signs Temp Pulse Resp BP Pulse Ox 99.1 F 80 20 H 128/67 H 92 02/10/19 19:37 02/10/19 19:37 02/10/19 19:37 02/10/19 19:37 02/10/19 19:37 Oxygen Delivery Method Room Air Weight: 193 lb 5.526 oz Body Mass Index (BMI) 31.1 General: Alert, Oriented x3, Cooperative HEENT: Atraumatic, PERRLA, EOMI, Normocephalic Oral: No Gingival or Mucosal Lesions/ Ulcerations, Dry Mucosa Neck: Supple, No JVD, Negative Carotid Bruits Lungs: No wheeze, No rales, Diminished - Air entry diminished in bilateral lung bases., Rhonchi, Short of Breath, Tachypneic Cardiovascular: Regular rate, Regular Rhythm, Normal S1, Normal S2, No murmurs Abdomen: Bowel Sounds Present, Soft, Non Tender, Non-Distended Extremities: Capillary Refill Less than 3 Seconds, Edema Skin: No rashes, No breakdown Musculoskeletal: No Tenderness to Palpation of Joints or Extremities, Arthritic Changes, - - Left foot drop wears a splint Neurological: Cranial nerves II-XII grossly intact, Deep Tendon Reflexes 2+/4 and Symmetrical, - - Mild weakness of left lower extremity. Psych/Mental Status: Normal Affect, Appropriate Microbiology Past 72 Hours 02/10/19 18:40 Mucosa - Nose Influenza Types A,B Direct FA (CARITO) - Final Laboratory Results 02/10/19 18:35: WBC 11.9 H, RBC 4.87, Hgb 14.2, Hct 43.4, MCV 89.1, MCH 29.2, MCHC 32.7, RDW Std Deviation 41.0, RDW Coeff of Kahlil 12.5, Plt Count 220, MPV 10.0, Immature Gran % (Auto) 0.700, Neut % (Auto) 87.2 H, Lymph % (Auto) 5.2 L, [place] % (Auto) 4.8, Eos % (Auto) 2.0, Baso % (Auto) 0.1, Absolute Neuts (auto) 10.4 H, Absolute Lymphs (auto) 0.62 L, Nucleated RBC % 0 02/10/19 18:35: PT 14.6, INR 1.2, APTT 28.1 02/10/19 18:35: Sodium 145, Potassium 3.6, Chloride 111 H, Carbon Dioxide 27.0, Anion Gap 7, BUN 16, Creatinine 0.89, Estim Creat Clear Calc 57.42, Est GFR (MDRD) Af Amer 81, Est GFR (MDRD) Non-Af 67, BUN/Creatinine Ratio 18.0, Glucose 90, Calcium 8.8, Total Bilirubin 0.70, AST 29, ALT 30, Alkaline Phosphatase 139 H, Total Protein 7.1, Albumin 3.9, Globulin 3.2, Albumin/Globulin Ratio 1.2 02/10/19 18:35: Lactic Acid 1.4 02/10/19 19:18: Urine Color Yellow, Urine Clarity Sl. Cloudy, Urine pH 5.0, Ur Specific [place] 1.010, Urine Protein Negative, Urine Glucose (UA) Normal, Urine Ketones Negative, Urine Occult Blood Negative, Urine Nitrite Negative, Urine Bilirubin Negative, Urine Urobilinogen Normal, Ur Leukocyte Esterase 25 H, Urine RBC Pending, Urine WBC Pending, Ur Squamous Epith Cells Pending, Urine Bacteria Pending, Urine Mucus Pending Current Medications Azithromycin 500 mg/ Dextrose 255 mls @ 250 mls/hr IV X1 ONE Stop: 02/10/19 20:09 Assessment/Plan All Active Problems (Last Updated 12/27/18 @ 09:22 by Shameka Cox) Pneumonia (Acute) UTI (Acute) Chest pain, unspecified (Resolved) Community acquired bilateral lower lobe pneumonia (Resolved) Respiratory failure with hypoxia (Resolved) Atrial fibrillation with rapid ventricular response (Acute) Sepsis due to pneumonia (Resolved) CVA (cerebral vascular accident) (Acute) Balance problem (Acute) The patient is a 68 year old F with history of asthma/COPD came to ER with fever 102.9 fever at home and in ER. Patient stated she has been feeling generalized weak, sneezing and URI symptoms since Sunday but developed cough along with fever today. She is also short of breath. In ED, T1 102.9 Fahrenheit, heart rate 91, respiratory 24 pulse ox 93% on room air. Basic blood work shows leukocytosis 11.9 thousand with neutrophil 87%. Lactic acid normal. UA LE 25 WBCs 0-5 cells. Chest x-ray shows developing bibasilar infiltrates, left more than right. 1. SIRS (tachycardia, fever, leukocytosis) secondary to bibasilar pneumonia and possible UTI: Patient does not have severe sepsis or septic shock and blood pressure is 128/67 and lactic acid normal. Started on IV Rocephin and Zithromax in the ED and will continue it. On Mucinex, chest physiotherapy, bronchodilator. Pneumonia work-up ordered including respiratory panel, sputum culture, blood cultures x2 and urine culture. 2. Mild asthma exacerbation secondary to pneumonia: Initial influenza is negative. On DuoNeb every 6 hourly, IV Solu-Medrol, Mucinex and incentive spirometry. Rest as mentioned above. Patient had PFT done by Dr. Tee in December 2018 and reported as normal with no evidence of large airway obstructive ventilatory defect. No significant response to aerosolized bronchodilator. Patient has been non-smoker throughout her life. Patient has been admitted in November 2018 for similar bilateral lower lobe pneumonia and acute hypoxic respiratory failure. She had total of 7 days of antibiotics, Levaquin 3. Paroxysmal A. fib on amiodarone and verapamil: On Coumadin. INR subtherapeutic, 1.2. Give 1 dose of Lovenox 1 mg/kg body weight. Coumadin increased to 5 mg daily. Monitor INR daily. Avoid QT prolonging medication including fluoroquinolone or ondansetron as patient is already on amiodarone and Coumadin 4. CVA, hypertension and dyslipidemia: Home medication reconciliation done. 5. Migraine, GERD, chronic left foot drop: 6. DVT prophylaxis: As mentioned above Microbiology Past 72 Hours 02/10/19 18:40 Mucosa - Nose Influenza Types A,B Direct FA (CARITO) - Final Laboratory Results 02/10/19 18:35: WBC 11.9 H, RBC 4.87, Hgb 14.2, Hct 43.4, MCV 89.1, MCH 29.2, MCHC 32.7, RDW Std Deviation 41.0, RDW Coeff of Kahlil 12.5, Plt Count 220, MPV 10.0, Immature Gran % (Auto) 0.700, Neut % (Auto) 87.2 H, Lymph % (Auto) 5.2 L, [place] % (Auto) 4.8, Eos % (Auto) 2.0, Baso % (Auto) 0.1, Absolute Neuts (auto) 10.4 H, Absolute Lymphs (auto) 0.62 L, Nucleated RBC % 0 02/10/19 18:35: PT 14.6, INR 1.2, APTT 28.1 02/10/19 18:35: Sodium 145, Potassium 3.6, Chloride 111 H, Carbon Dioxide 27.0, Anion Gap 7, BUN 16, Creatinine 0.89, Estim Creat Clear Calc 57.42, Est GFR (MDRD) Af Amer 81, Est GFR (MDRD) Non-Af 67, BUN/Creatinine Ratio 18.0, Glucose 90, Calcium 8.8, Total Bilirubin 0.70, AST 29, ALT 30, Alkaline Phosphatase 139 H, Total Protein 7.1, Albumin 3.9, Globulin 3.2, Albumin/Globulin Ratio 1.2 02/10/19 18:35: Lactic Acid 1.4 02/10/19 19:18: Urine Color Yellow, Urine Clarity Sl. Cloudy, Urine pH 5.0, Ur Specific [place] 1.010, Urine Protein Negative, Urine Glucose (UA) Normal, Urine Ketones Negative, Urine Occult Blood Negative, Urine Nitrite Negative, Urine Bilirubin Negative, Urine Urobilinogen Normal, Ur Leukocyte Esterase 25 H, Urine RBC 0 SEEN, Urine WBC 0-5 SEEN, Ur Squamous Epith Cells 0-5 SEEN, Urine Bacteria 1+, Urine Mucus 0 SEEN Clinical Impression(s) from Imaging Studies Chest X-Ray 02/10/19 18:07 IMPRESSION: 1. Developing bibasilar infiltrates, left more than right. Code Visit Inpatient E&M: 25876 Init Hosp L3
[2019-02-10 20:08] LABS: Bacteria 1+ /hpf (None Seen); Squamous Epithelial Cells - UA 0-5 SEEN /hpf (5-10); White Blood Cells 0-5 SEEN /hpf (0-5)
[2019-02-10] MEDS: Enoxaparin 100 MG/ML Syringe 90 MG SC (22:53)
[2019-02-10] MEDS: guaiFENesin 1,200 MG Tablet 1200 MG PO (22:54)
[2019-02-10] MEDS: 0.9% Normal Saline 1,000 ML 100 ML IV (22:54)
[2019-02-10] MEDS: Metoprolol Tartrate 25 MG Tablet 12.5 MG PO (22:54)
[2019-02-10] MEDS: Benzonatate 100 MG Capsule 200 MG PO (22:54)
[2019-02-11] VITALS (20 sets, daily range): BP systolic 107–120; BP diastolic 55–61; PULSE 70–82; RESP 16–21; TEMP 36.6–36.9; O2SAT 92–96
[2019-02-11 00:36] LABS: M R Staph aureus DNA By PCR Negative (Negative); Probe Check PASS; Specimen Processing Control PASS
[2019-02-11] MEDS: Benzonatate 100 MG Capsule 200 MG PO ×3 (05:14→22:44)
[2019-02-11 06:02] LABS: Absolute Lymphocyte Count 0.72 X10^3/uL (0.83-4.51); Absolute Neutrophil Count 13.9 X10^3/uL (2.0-7.7); Basophil# 0.01 X10^3/uL; Basophil% 0.1 % (0-1); Eosinophil# 0.09 X10^3/uL; Eosinophils% 0.6 % (0-5); Hematocrit 41.4 % (37-47); Hemoglobin 13.4 g/dL (12.0-15.0); Lymphocyte # 0.72 X10^3/ul (4.0); Lymphocyte % 4.8 % (19-41); Mean Corp Hgb Conc 32.4 g/dL (32-36); Mean Corpuscular Hgb 28.9 pg (27.0-32.0); Mean Corpuscular Volume 89.2 fL (81-99); Monocyte# 0.18 X10^3/uL; Monocyte% 1.2 % (0-10); NRBC Flagged by Analyzer 0 % (0-5); Neutrophil # 13.85 X10^3/uL (2.7-7.7); Neutrophil % 91.8 % (47-70); Platelet Count 226 K/mm3 (150-450); RBC Distribution Width CV 12.6 % (11.6-14.6); RBC Distribution Width SD 41.3 fl (35.1-43.9); Red Blood Count 4.64 M/mm3 (4.2-5.4); White Blood Count 15.1 K/mm3 (4.4-11.0)
[2019-02-11 06:10] LABS: International Normalized Ratio 1.3; Prothrombin Time (Protime)PT. 15.8 SECONDS (11.7-14.9)
[2019-02-11 06:29] LABS: Anion Gap 5 (5-15); BUN 17 mg/dL (7-18); Calcium,Total 8.1 mg/dL (8.5-10.1); Chloride 111 mmol/L (98-107); Creatinine, Serum 0.81 mg/dL (0.55-1.02); EST Glomerular Filtration Rate 75 mL/min (>60); Est Glom Filt Rate - Afr Amer 90 mL/min (>60); Estimated Creatinine Clearance 63.09 ml/min; Glucose 154 mg/dL (74-106); Magnesium 2.2 mg/dL (1.6-2.6); Sodium Level 142 mmol/L (136-145); Thyroid Stim Hormone (TSH) 1.01 uIU/mL (0.358-3.74)
[2019-02-11] MEDS: Ipratropium/Albuterol Sulfate 3 ML AMPUL.NEB INHALATION ×4 (07:21→19:24)
--- NOTE | 2019-02-11 08:15 | NURSING ---
O2 SAT 95% ON 2L NC - O2 DECREASED TO 1L NC.
--- NOTE | 2019-02-11 08:19 | NURSING ---
PT TO RADIOLOGY FOR CXR VIA BED
--- NOTE | 2019-02-11 08:20 | RAD_ITS ---
STUDY: X-RAY CHEST REASON FOR EXAM: Female, 68 years old. Cough and shortness of breath. TECHNIQUE: AP and lateral views of the chest. COMPARISON: Comparison is made with prior study dated February 10, 2019. FINDINGS: EKG electrodes are seen. Since prior study, there has been improved aeration of both lung bases. Residual pleural parenchymal changes persist at the left lung base. Scattered calcified granulomas. Normal size heart. Normal mediastinum and gagandeep. Normal visualized pulmonary arteries. There is atherosclerotic tortuosity of the aortic arch and descending thoracic aorta. There is demineralization of the osseous structures. Normal visualized ribs, clavicles, and shoulders. There is no demonstrated abnormality of the visualized soft tissue structures of the upper abdomen. RAD/Chest PA and Lateral IMPRESSION: Improved aeration of the lung bases as compared to prior study. Residual pleural parenchymal changes persist at the left lung base. Electronically Signed: Magdiel Cheung, at 13:15 EST , Service support ,
[2019-02-11] MEDS: 0.9% Normal Saline 1,000 ML 100 ML IV (08:57)
[2019-02-11] MEDS: oxyCODONE 5 MG Tablet PO (08:59)
[2019-02-11] MEDS: Verapamil SR 240 MG Tablet PO (09:00)
[2019-02-11] MEDS: Loratadine 10 MG Tablet PO (09:00)
[2019-02-11] MEDS: Amiodarone 200 MG Tablet PO (09:01)
[2019-02-11] MEDS: Metoprolol Tartrate 25 MG Tablet 12.5 MG PO ×2 (09:01→22:43)
[2019-02-11] MEDS: guaiFENesin 1,200 MG Tablet 1200 MG PO ×2 (09:02→22:44)
[2019-02-11] MEDS: Thiamine Hydrochloride 100 MG Tablet PO (09:02)
[2019-02-11] MEDS: Pantoprazole Sodium 20 MG Tablet PO (09:02)
[2019-02-11] MEDS: Lisinopril 10 MG Tablet PO (09:03)
--- NOTE | 2019-02-11 09:11 | NURSING ---
O2 SAT 95% ON 1L NC - O2 DC'D - WILL RECHECK O2 SAT ON RA
--- NOTE | 2019-02-11 11:57 | PN_ITS ---
<Perry Costa - Last Filed: 02/11/19 11:57> Patient Problems: Active and Suspected Problems (Last Updated 12/27/18 @ 09:22 by Shameka Cox) Pneumonia (Acute) UTI (Acute) Reason for Visit: pneumonia Subjective: Pt has hx asthma. No personal smoking hx however lived with ex husbands who smoked. No fever/chills. Dry cough. Pt notes dry cough since recently starting lisinopril. No n/v/d. SOB improved. Still somewhat weak and SOB, pt does not feel she is ready to go home. Notes her neighbor is sick with the flu. Vitals/I&O's: Vital Signs Temp Pulse Resp BP Pulse Ox 98.1 F 79 21 H 120/59 L 92 02/11/19 08:09 02/11/19 11:34 02/11/19 11:34 02/11/19 09:01 02/11/19 11:29 Oxygen Flow Rate (L/min) 1 Oxygen Delivery Method Room Air Weight: 182 lb 15.739 oz Body Mass Index (BMI) 29.5 Intake and Output for Last 24 Hours 02/09/19 02/10/19 02/11/19 23:59 23:59 23:59 Intake Total 305 / 505 1526.67 / 1526.67 Output Total 675 / 675 Balance 305 / 205 851.67 / 851.67 General: Alert, Oriented x3, Cooperative HEENT: Atraumatic, PERRLA, EOMI, Normocephalic Neck: Supple, No JVD, Negative Carotid Bruits Lungs: Clear to auscultation, Normal air movement Cardiovascular: Regular rate, Murmur - 3/6 systolic murmur lsb Abdomen: Bowel Sounds Present, Soft, Non Tender Extremities: No edema, Capillary Refill Less than 3 Seconds Skin: No rashes, No breakdown Musculoskeletal: No Tenderness to Palpation of Joints or Extremities Neurological: Cranial nerves II-XII grossly intact Psych/Mental Status: Normal Affect, Appropriate, Alert and oriented to time, place, person, mood and affect Microbiology Past 72 Hours 02/10/19 22:35 Mucosa - Nasopharyngeal Respiratory Panel (PCR) - Final 02/10/19 19:18 Urine, Clean Catch Streptococcus pneumoniae Antigen (M - Final 02/10/19 19:18 Urine, Clean Catch Legionella Antigen - Final 02/10/19 18:40 Mucosa - Nose Influenza Types A,B Direct FA (CARITO) - Final Laboratory Results 02/10/19 18:35: WBC 11.9 H, RBC 4.87, Hgb 14.2, Hct 43.4, MCV 89.1, MCH 29.2, MCHC 32.7, RDW Std Deviation 41.0, RDW Coeff of Kahlil 12.5, Plt Count 220, MPV 10. 0, Immature Gran % (Auto) 0.700, Neut % (Auto) 87.2 H, Lymph % (Auto) 5.2 L, Stephens % (Auto) 4.8, Eos % (Auto) 2.0, Baso % (Auto) 0.1, Absolute Neuts (auto) 10.4 H, Absolute Lymphs (auto) 0.62 L, Nucleated RBC % 0 02/10/19 18:35: PT 14.6, INR 1.2, APTT 28.1 02/10/19 18:35: Sodium 145, Potassium 3.6, Chloride 111 H, Carbon Dioxide 27.0, Anion Gap 7, BUN 16, Creatinine 0.89, Estim Creat Clear Calc 57.42, Est GFR (MDRD) Af Amer 81, Est GFR (MDRD) Non-Af 67, BUN/Creatinine Ratio 18.0, Glucose 90, Calcium 8.8, Total Bilirubin 0.70, AST 29, ALT 30, Alkaline Phosphatase 139 H, Total Protein 7.1, Albumin 3.9, Globulin 3.2, Albumin/Globulin Ratio 1.2 02/10/19 18:35: Lactic Acid 1.4 02/10/19 19:18: Urine Color Yellow, Urine Clarity Sl. Cloudy, Urine pH 5.0, Ur Specific [place] 1.010, Urine Protein Negative, Urine Glucose (UA) Normal, Urine Ketones Negative, Urine Occult Blood Negative, Urine Nitrite Negative, Urine Bilirubin Negative, Urine Urobilinogen Normal, Ur Leukocyte Esterase 25 H, Urine RBC 0 SEEN, Urine WBC 0-5 SEEN, Ur Squamous Epith Cells 0-5 SEEN, Urine Bacteria 1+, Urine Mucus 0 SEEN 02/10/19 23:07: MRSA (PCR) Negative 02/11/19 05:45: WBC 15.1 H, RBC 4.64, Hgb 13.4, Hct 41.4, MCV 89.2, MCH 28.9, MCHC 32.4, RDW Std Deviation 41.3, RDW Coeff of Kahlil 12.6, Plt Count 226, MPV 10.0, Immature Gran % (Auto) 1.500 H, Neut % (Auto) 91.8 H, Lymph % (Auto) 4.8 L , Stephens % (Auto) 1.2, Eos % (Auto) 0.6, Baso % (Auto) 0.1, Absolute Neuts (auto) 13.9 H, Absolute Lymphs (auto) 0.72 L, Nucleated RBC % 0 02/11/19 05:45: Sodium 142, Potassium 4.0, Chloride 111 H, Carbon Dioxide 26.0, Anion Gap 5, BUN 17, Creatinine 0.81, Estim Creat Clear Calc 63.09, Est GFR (MDRD) Af Amer 90, Est GFR (MDRD) Non-Af 75, BUN/Creatinine Ratio 21.0 H, Glucose 154 H, Calcium 8.1 L, Magnesium 2.2, TSH 1.01 02/11/19 05:45: PT 15.8 H, INR 1.3 Current Medications Acetaminophen (Tylenol) 650 mg PO Q6H PRN PRN PRN Reason: Pain Score 1-3/Temp > 100.7 F Al Hydroxide/Mg Hydroxide (Mylanta Ii) 30 ml PO Q6H PRN PRN PRN Reason: Gastric Burning Albuterol/Ipratropium (Duoneb) 3 ml INHALATION Q4HWA.RT [facility] Last Admin: 02/11/19 11:06 Dose: 3 ml Documented by: Amiodarone HCl (Cordarone) 200 mg PO DAILY [facility] Last Admin: 02/11/19 09:01 Dose: 200 mg Documented by: Artificial Tears (Tears Naturale, Artificial Tears) 1 - 2 drop EACH EYE Q2H PRN PRN PRN Reason: DRY EYES Atorvastatin Calcium (Lipitor) 40 mg PO DAILY@2200 [facility] Last Admin: 02/10/19 22:55 Dose: Not Given Documented by: Benzonatate (Tessalon Perle) 200 mg PO TID [facility] Last Admin: 02/11/19 05:14 Dose: 200 mg Documented by: Epinephrine HCl () 0.3 mg IM X1 PRN PRN Reason: Allergic reaction Fluticasone Propionate (Flonase Nasal [place]) 2 spray NASAL DAILY PRN PRN PRN Reason: ALLERGIES Glucagon () 1 mg IM .X1 PRN PRN Reason: Hypoglycemia Guaifenesin (Mucinex) 1,200 mg PO BID [facility] Last Admin: 02/11/19 09:02 Dose: 1,200 mg Documented by: Hydromorphone HCl (Dilaudid Inj) 0.5 mg IV Q4H PRN PRN PRN Reason: Pain Score 6-10/10 Sodium Chloride () 250 mls @ 15 mls/hr IV .[id number] PRN PRN Reason: Saline Flush Azithromycin 500 mg/ Dextrose 255 mls @ 250 mls/hr IV Q24@2200 [facility] Ceftriaxone Sodium 2 gm/ (Sodium Chloride) 50 mls @ 100 mls/hr IV Q24@2200 [facility] Dextrose (Dextrose 10%-Water) 250 mls @ 999 mls/hr IV X1 PRN; Protocol PRN Reason: HYPOGLYCEMIA Lactobacillus Acidophilus (Acidophilus) 1 tablet PO DAILY [facility] Last Admin: 02/11/19 08:59 Dose: 1 tablet Documented by: Loratadine (Claritin) 10 mg PO DAILY [facility] Last Admin: 02/11/19 09:00 Dose: 10 mg Documented by: Losartan Potassium (Cozaar) 50 mg PO DAILY [facility] Meclizine HCl (Antivert) 25 mg PO Q6H PRN PRN PRN Reason: DIZZINESS Methylprednisolone (Solu-Medrol) 40 mg IV Q8 [facility] Last Admin: 02/11/19 05:14 Dose: 40 mg Documented by: Metoprolol Tartrate (Lopressor (Beta Ezio)) 12.5 mg PO BID [facility] Last Admin: 02/11/19 09:01 Dose: 12.5 mg Documented by: Nitroglycerin (Nitrostat) 0.4 mg SUBLINGUAL Q5M PRN PRN Reason: CARDIAC/CHEST PAIN Nutritional Formula (Lactose Free) (Ensure Enlive) 120 ml PO 4X/DAY [facility] Last Admin: 02/11/19 09:08 Dose: 120 ml Documented by: Oxycodone HCl (Oxyir) 5 mg PO Q4H PRN PRN PRN Reason: Pain Score 4-5/10 Last Admin: 02/11/19 08:59 Dose: 5 mg Documented by: Pantoprazole Sodium (Protonix) 20 mg PO DAILY [facility] Last Admin: 02/11/19 09:02 Dose: 20 mg Documented by: Prochlorperazine Edisylate (Compazine Iv) 5 mg IV Q4H PRN PRN PRN Reason: Breakthrough nausea/vomiting Promethazine HCl (Phenergan) 12.5 mg IV Q4H PRN PRN PRN Reason: NAUSEA/VOMITING Senna/Docusate Sodium (Senokot-S, Sheela-Colace) 2 tablet PO BID PRN PRN PRN Reason: Constipation Sodium Chloride () 10 - 40 ml IV UD PRN PRN Reason: SALINE FLUSH Thiamine HCl (Vitamin B1) 100 mg PO DAILY [facility] Last Admin: 02/11/19 09:02 Dose: 100 mg Documented by: Verapamil HCl (Calan Sr) 240 mg PO DAILY [facility] Last Admin: 02/11/19 09:00 Dose: 240 mg Documented by: Warfarin Sodium (Coumadin (Pbkc)) 2 mg PO SuMoTuWeFrSa@1700 [facility]; Protocol Warfarin Sodium (Coumadin (Pbkc)) 4 mg PO Th@1700 [facility]; Protocol STROKE Vital Signs/Narrative: Vital Signs Temp Pulse Resp BP Pulse Ox 02/11/19 11:34 79 21 H 02/11/19 11:29 92 02/11/19 11:00 76 02/11/19 09:01 81 120/59 L 02/11/19 09:00 95 02/11/19 08:27 94 02/11/19 08:09 98.1 F 81 20 H 120/59 L 95 Medical Necessity - Tobacco Use Smoking Status: Never smoker Assessment/Plan All Active Problems (Last Updated 12/27/18 @ 09:22 by Shameka Cox) Pneumonia (Acute) UTI (Acute) Chest pain, unspecified (Resolved) Community acquired bilateral lower lobe pneumonia (Resolved) Respiratory failure with hypoxia (Resolved) Atrial fibrillation with rapid ventricular response (Acute) Sepsis due to pneumonia (Resolved) CVA (cerebral vascular accident) (Acute) Balance problem (Acute) 1. Acute sepsis 2/2 CAP - bilbasilar - Leukocytosis, fever, tahcycardia. Continue rocephin/azithro. Tachy resolved. Resp panel negative. Urine antigens negative. Blood culture pending. 2. Acute asthma exacerbation 2/2 above - solumedrol, aerosols. Plan for transition to prednisone burst. 2. Recent UTI - off macrobid, covered by rocephin. Ongoing urinary frequency. Urine cx pending. 3. Paroxysmal Afib - coumadin, verapamil, amiodarone, metoprolol 5. Hx CVA - on statin, warfarin 6. Hx migraines - none currently 7. 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 GERD - PPI 9. HTN - dry cough after starting lisinopril, changed to losartan. DVT ppx: warfarin DC Planning: walking pulse ox prior to DC. This patient was seen by Perry Costa PA-C under the supervision of Doctor Andreea. <Codey Doran - Last Filed: 02/11/19 12:36> Vitals/I&O's: Vital Signs Temp Pulse Resp BP Pulse Ox 98.1 F 79 21 H 120/59 L 92 02/11/19 08:09 02/11/19 11:34 02/11/19 11:34 02/11/19 09:01 02/11/19 11:29 Oxygen Flow Rate (L/min) 1 Oxygen Delivery Method Room Air Weight: 83 kg Body Mass Index (BMI) 29.5 Intake and Output for Last 24 Hours 02/09/19 02/10/19 02/11/19 23:59 23:59 23:59 Intake Total 305 / 505 2006.67 / 2005.67 Output Total 675 / 675 Balance 305 / 205 1331.67 / 1331.67 Microbiology Past 72 Hours 02/10/19 22:35 Mucosa - Nasopharyngeal Respiratory Panel (PCR) - Final 02/10/19 19:18 Urine, Clean Catch Streptococcus pneumoniae Antigen (M - Final 02/10/19 19:18 Urine, Clean Catch Legionella Antigen - Final 02/10/19 18:40 Mucosa - Nose Influenza Types A,B Direct FA (CARITO) - Final Laboratory Results 02/10/19 18:35: WBC 11.9 H, RBC 4.87, Hgb 14.2, Hct 43.4, MCV 89.1, MCH 29.2, MCHC 32.7, RDW Std Deviation 41.0, RDW Coeff of Kahlil 12.5, Plt Count 220, MPV 10.0, Immature Gran % (Auto) 0.700, Neut % (Auto) 87.2 H, Lymph % (Auto) 5.2 L, Stephens % (Auto) 4.8, Eos % (Auto) 2.0, Baso % (Auto) 0.1, Absolute Neuts (auto) 10.4 H, Absolute Lymphs (auto) 0.62 L, Nucleated RBC % 0 02/10/19 18:35: PT 14.6, INR 1.2, APTT 28.1 02/10/19 18:35: Sodium 145, Potassium 3.6, Chloride 111 H, Carbon Dioxide 27.0, Anion Gap 7, BUN 16, Creatinine 0.89, Estim Creat Clear Calc 57.42, Est GFR (MDRD) Af Amer 81, Est GFR (MDRD) Non-Af 67, BUN/Creatinine Ratio 18.0, Glucose 90, Calcium 8.8, Total Bilirubin 0.70, AST 29, ALT 30, Alkaline Phosphatase 139 H, Total Protein 7.1, Albumin 3.9, Globulin 3.2, Albumin/Globulin Ratio 1.2 02/10/19 18:35: Lactic Acid 1.4 02/10/19 19:18: Urine Color Yellow, Urine Clarity Sl. Cloudy, Urine pH 5.0, Ur Specific [place] 1.010, Urine Protein Negative, Urine Glucose (UA) Normal, Urine Ketones Negative, Urine Occult Blood Negative, Urine Nitrite Negative, Urine Bilirubin Negative, Urine Urobilinogen Normal, Ur Leukocyte Esterase 25 H, Urine RBC 0 SEEN, Urine WBC 0-5 SEEN, Ur Squamous Epith Cells 0-5 SEEN, Urine Bacteria 1+, Urine Mucus 0 SEEN 02/10/19 23:07: MRSA (PCR) Negative 02/11/19 05:45: WBC 15.1 H, RBC 4.64, Hgb 13.4, Hct 41.4, MCV 89.2, MCH 28.9, MCHC 32.4, RDW Std Deviation 41.3, RDW Coeff of Kahlil 12.6, Plt Count 226, MPV 10.0, Immature Gran % (Auto) 1.500 H, Neut % (Auto) 91.8 H, Lymph % (Auto) 4.8 L , Stephens % (Auto) 1.2, Eos % (Auto) 0.6, Baso % (Auto) 0.1, Absolute Neuts (auto) 13.9 H, Absolute Lymphs (auto) 0.72 L, Nucleated RBC % 0 02/11/19 05:45: Sodium 142, Potassium 4.0, Chloride 111 H, Carbon Dioxide 26.0, Anion Gap 5, BUN 17, Creatinine 0.81, Estim Creat Clear Calc 63.09, Est GFR (MDRD) Af Amer 90, Est GFR (MDRD) Non-Af 75, BUN/Creatinine Ratio 21.0 H, Glucose 154 H, Calcium 8.1 L, Magnesium 2.2, TSH 1.01 02/11/19 05:45: PT 15.8 H, INR 1.3 Current Medications Acetaminophen (Tylenol) 650 mg PO Q6H PRN PRN PRN Reason: Pain Score 1-3/Temp > 100.7 F Al Hydroxide/Mg Hydroxide (Mylanta Ii) 30 ml PO Q6H PRN PRN PRN Reason: Gastric Burning Albuterol/Ipratropium (Duoneb) 3 ml INHALATION Q4HWA.RT [facility] Last Admin: 02/11/19 11:06 Dose: 3 ml Documented by: Amiodarone HCl (Cordarone) 200 mg PO DAILY [facility] Last Admin: 02/11/19 09:01 Dose: 200 mg Documented by: Artificial Tears (Tears Naturale, Artificial Tears) 1 - 2 drop EACH EYE Q2H PRN PRN PRN Reason: DRY EYES Atorvastatin Calcium (Lipitor) 40 mg PO DAILY@2200 [facility] Last Admin: 02/10/19 22:55 Dose: Not Given Documented by: Benzonatate (Tessalon Perle) 200 mg PO TID [facility] Last Admin: 02/11/19 05:14 Dose: 200 mg Documented by: Epinephrine HCl () 0.3 mg IM X1 PRN PRN Reason: Allergic reaction Fluticasone Propionate (Flonase Nasal [place]) 2 spray NASAL DAILY PRN PRN PRN Reason: ALLERGIES Glucagon () 1 mg IM .X1 PRN PRN Reason: Hypoglycemia Guaifenesin (Mucinex) 1,200 mg PO BID [facility] Last Admin: 02/11/19 09:02 Dose: 1,200 mg Documented by: Hydromorphone HCl (Dilaudid Inj) 0.5 mg IV Q4H PRN PRN PRN Reason: Pain Score 6-10/10 Sodium Chloride () 250 mls @ 15 mls/hr IV .[id number] PRN PRN Reason: Saline Flush Azithromycin 500 mg/ Dextrose 255 mls @ 250 mls/hr IV Q24@2200 [facility] Ceftriaxone Sodium 2 gm/ (Sodium Chloride) 50 mls @ 100 mls/hr IV Q24@2200 [facility] Dextrose (Dextrose 10%-Water) 250 mls @ 999 mls/hr IV X1 PRN; Protocol PRN Reason: HYPOGLYCEMIA Lactobacillus Acidophilus (Acidophilus) 1 tablet PO DAILY [facility] Last Admin: 02/11/19 08:59 Dose: 1 tablet Documented by: Loratadine (Claritin) 10 mg PO DAILY [facility] Last Admin: 02/11/19 09:00 Dose: 10 mg Documented by: Losartan Potassium (Cozaar) 50 mg PO DAILY [facility] Meclizine HCl (Antivert) 25 mg PO Q6H PRN PRN PRN Reason: DIZZINESS Methylprednisolone (Solu-Medrol) 40 mg IV Q8 [facility] Last Admin: 02/11/19 05:14 Dose: 40 mg Documented by: Metoprolol Tartrate (Lopressor (Beta Ezio)) 12.5 mg PO BID [facility] Last Admin: 02/11/19 09:01 Dose: 12.5 mg Documented by: Nitroglycerin (Nitrostat) 0.4 mg SUBLINGUAL Q5M PRN PRN Reason: CARDIAC/CHEST PAIN Nutritional Formula (Lactose Free) (Ensure Enlive) 120 ml PO 4X/DAY [facility] Last Admin: 02/11/19 09:08 Dose: 120 ml Documented by: Oxycodone HCl (Oxyir) 5 mg PO Q4H PRN PRN PRN Reason: Pain Score 4-5/10 Last Admin: 02/11/19 08:59 Dose: 5 mg Documented by: Pantoprazole Sodium (Protonix) 20 mg PO DAILY [facility] Last Admin: 02/11/19 09:02 Dose: 20 mg Documented by: Prochlorperazine Edisylate (Compazine Iv) 5 mg IV Q4H PRN PRN PRN Reason: Breakthrough nausea/vomiting Promethazine HCl (Phenergan) 12.5 mg IV Q4H PRN PRN PRN Reason: NAUSEA/VOMITING Senna/Docusate Sodium (Senokot-S, Sheela-Colace) 2 tablet PO BID PRN PRN PRN Reason: Constipation Sodium Chloride () 10 - 40 ml IV UD PRN PRN Reason: SALINE FLUSH Thiamine HCl (Vitamin B1) 100 mg PO DAILY [facility] Last Admin: 02/11/19 09:02 Dose: 100 mg Documented by: Verapamil HCl (Calan Sr) 240 mg PO DAILY [facility] Last Admin: 02/11/19 09:00 Dose: 240 mg Documented by: Warfarin Sodium (Coumadin (Pbkc)) 2 mg PO SuMoTuWeFrSa@1700 [facility]; Protocol Warfarin Sodium (Coumadin (Pbkc)) 4 mg PO Th@1700 [facility]; Protocol STROKE Vital Signs/Narrative: Vital Signs Pulse Resp BP Pulse Ox 02/11/19 11:34 79 21 H 02/11/19 11:29 92 02/11/19 11:00 76 02/11/19 09:01 81 120/59 L 02/11/19 09:00 95 Assessment/Plan Patient was seen in conjunction with Perry Costa PA-C . I have independently interviewed and examined the patient and reviewed pertinent historical, laboratory, and other data. Please refer to Perry Costa PA-C note for details of this patient's presentation, findings, and recommendations. I have reviewed Perry Costa PA-C note and concur with documented findings. In brief, patient is a 68-year-old lady admitted with progressive shortness of breath. An assessment of sepsis secondary to community-acquired pneumonia made admitted to a monitored bed for further management Physical Examination: GENERAL: cooperative HEENT: Atraumatic; EYES; Anicteric, Normal Conjunctiva NECK; supple, normal thyroid, RESPIRATORY: Diminished to auscultation CARDIOVASCULAR: Regular S1 S2, GI: soft, normoactive bowel sounds, : No Renal angle tenderness; EXTREMITIES: No edema, no clubbing, MUSCULOSKELETAL: no muscle waisting NEURO: Awake; no lateralizing signs. SKIN: No Rash PSYCH; Flat affect Assessment: 1. Sepsis secondary to community-acquired pneumonia 2. Community-acquired pneumonia 3. Paroxysmal atrial fibrillation 4. Did ask my suspicion 5. Essential potential 6. Chronic migraine 7. GERD 8. Left foot drop (chronic) Recommendations: 1. I have discussed the results of my overview and impressions with the patient 2. Options for management were reviewed Code Visit Inpatient E&M: 07053 Subs Hosp L3
--- NOTE | 2019-02-11 12:39 | CASEMGMT ---
Patient was seen by [facility] social service assistant on 12/13/18 and completed HCPOA. Pt chose not to complete LW at that time. Copy in medical record under summary tab. S. RONNA Hernandez
[2019-02-11] MEDS: 0.9% Saline Lock 10 ML Syringe IV ×2 (13:58→22:51)
--- NOTE | 2019-02-11 14:31 | CASEMGMT ---
CHAPARRITA LEONG assessment: Face to Face with patient for initial transition planning/care coordination assessment. CHAPARRITA LEONG introduced self and role at [facility], pt voices understanding and consents to assessment at this time. Pt is sitting up in bed in no distress at this time. Pt is A/Ox4 at this time and answers all questions appropriately at this time. Care providers, pharmacy, and demographics verified at this time. Presentation: cough, chills, fever Admitting dx: Pneumonia, asthma exacerbation PCP: Rodolfo Specialists: Adrián Greene Pharmacy: [facility] Insurance: [employer] Prescription Benefit: [employer] Living Will/HPOA: Pt states has HPOA and it is on file at [facility] at this time. Pt states that she has info at home for LW but is not ready to complete at this time. Pt states that her daughter, Anne-Marie Rebollar, is HPOA. LNOK: Anne-Marie Rebollar, daughter/HPOA; Yoel Bailey, son Living Arrangements: Pt states lives alone in 2 story home and states no concerns at home at this time. Pt states is independent with ADL's. Transportation: Pt states drives self and states no transportation concerns at this time. DME/HHC: Pt states has nebulizer and BP cuff at home and states no need for any further DME at this time. Pt states no hx of HHC or SNF in the past. Pt does state some concerns with paying for a new med she was put on. Troy LADD aware that the pt is interested in Rx assist info at this time, voices understanding. Pt states no concerns with going home at time of discharge. 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 Pt states does not smoke or drink ETOH. Pt states no further concerns/needs at this time. CM to follow for any further discharge planning/needs. Advised pt to ask for CM if any further questions/concerns/needs arise, voices understanding. Pt Goal: Home Plan: [place] CHAPARRITA LEONG
[2019-02-11] MEDS: Atorvastatin Calcium 40 MG Tablet PO (22:43)
[2019-02-11] MEDS: Acetaminophen 325 MG Tablet 650 MG PO (23:00)
[2019-02-11] MEDS: BENZOCAINE/MENTHOL 1 LOZENGE MUCOUS MEM (23:10)
[2019-02-12] VITALS (9 sets, daily range): BP systolic 107–124; BP diastolic 54–71; PULSE 67–85; RESP 16–20; TEMP 36.5–36.9; O2SAT 90–94
[2019-02-12 05:17] LABS: Absolute Lymphocyte Count 0.94 X10^3/uL (0.83-4.51); Absolute Neutrophil Count 11.2 X10^3/uL (2.0-7.7); Eosinophil# 0.01 X10^3/uL; Eosinophils% 0.1 % (0-5); Hematocrit 37.2 % (37-47); Lymphocyte # 0.94 X10^3/ul (4.0); Lymphocyte % 7.5 % (19-41); Mean Corp Hgb Conc 32.3 g/dL (32-36); Mean Corpuscular Hgb 29.1 pg (27.0-32.0); Mean Corpuscular Volume 90.3 fL (81-99); Mean Platelet Vol. 10.4 fl (6.2-12.0); Monocyte# 0.28 X10^3/uL; Monocyte% 2.2 % (0-10); NRBC Flagged by Analyzer 0 % (0-5); Neutrophil # 11.23 X10^3/uL (2.7-7.7); Neutrophil % 89.1 % (47-70); Platelet Count 209 K/mm3 (150-450); RBC Distribution Width CV 12.6 % (11.6-14.6); RBC Distribution Width SD 41.2 fl (35.1-43.9); Red Blood Count 4.12 M/mm3 (4.2-5.4); White Blood Count 12.6 K/mm3 (4.4-11.0)
[2019-02-12] MEDS: 0.9% Saline Lock 10 ML Syringe IV (05:25)
[2019-02-12] MEDS: Benzonatate 100 MG Capsule 200 MG PO (05:25)
[2019-02-12] MEDS: BENZOCAINE/MENTHOL 1 LOZENGE MUCOUS MEM (05:32)
[2019-02-12 05:58] LABS: International Normalized Ratio 1.2; Prothrombin Time (Protime)PT. 15.2 SECONDS (11.7-14.9)
[2019-02-12] MEDS: Ipratropium/Albuterol Sulfate 3 ML AMPUL.NEB INHALATION ×2 (07:08→11:11)
[2019-02-12] MEDS: Verapamil SR 240 MG Tablet PO (08:07)
[2019-02-12] MEDS: Loratadine 10 MG Tablet PO (08:07)
[2019-02-12] MEDS: Metoprolol Tartrate 25 MG Tablet 12.5 MG PO (08:07)
[2019-02-12] MEDS: Pantoprazole Sodium 20 MG Tablet PO (08:08)
[2019-02-12] MEDS: guaiFENesin 1,200 MG Tablet 1200 MG PO (08:08)
[2019-02-12] MEDS: Thiamine Hydrochloride 100 MG Tablet PO (08:09)
[2019-02-12] MEDS: Amiodarone 200 MG Tablet PO (08:09)
[2019-02-12] MEDS: Losartan Potassium 50 MG Tablet PO (09:43)
--- NOTE | 2019-02-12 11:35 | DCINST_ITS ---
- Discharge Diagnoses Current Active Problems: Current Active and Chronic Problems (Last Updated 12/27/18 @ 09:22 by Shameka Cox) Pneumonia (Acute) UTI (Acute) You will use the following diet at home:: Cardiac Your food should be the consistency of: Regular Your liquids should be the consistency of: Regular/Thin Discharge Activity: Return to Normal Activity Additional Instructions: Take one extra dose of warfarin tonight. Have INR checked tomorrow. Allergies/Adverse Reactions: Allergies adhesive tape Allergy (Verified 02/10/19 21:26) Rash propoxyphene HCl [From Darvon] Allergy (Verified 02/10/19 21:26) Rash sulfamethoxazole [From Bactrim] Allergy (Verified 02/10/19 21:26) Shortness of breath trimethoprim [From Bactrim] Allergy (Verified 02/10/19 21:26) Shortness of breath venom-honey bee [bee venom (honey bee)] Allergy (Verified 02/10/19 21:26) Anaphylaxis venom-wasp [wasp venom] Allergy (Verified 02/10/19 21:26) Anaphylaxis prednisone Adverse Reaction (Verified 02/10/19 21:26) Diarrhea anything that stings Allergy (Uncoded 02/10/19 21:26) Anaphylaxis banana peppers Allergy (Uncoded 02/10/19 21:26) Hives FIBERGLASS Allergy (Uncoded 02/10/19 21:26) Shortness of breath Medications to take at Discharge Epi Pen (for allergic rxn) 0.3 mg IM X1 05/04/13 Loratadine [Claritin] 10 mg PO DAILY 05/04/13 Albuterol Sulfate [Ventolin Hfa] 2 puff IH Q6H PRN PRN 12/26/15 Pantoprazole Sodium [Protonix] 20 mg PO DAILY 12/26/15 CycloSPORINE Ophthalmic [Restasis Ophthalmic] 1 drp EACH EYE BID 03/28/16 Fluticasone/Salmeterol [Advair 100-50 Diskus] 1 puff IH BID PRN 03/28/16 Meclizine HCl 25 mg PO Q6H PRN 03/28/16 Atorvastatin Calcium [Lipitor] 40 mg PO DAILY 07/02/18 Fluticasone 0.05% [Flonase Nasal [place]] 2 spray NASAL DAILY PRN PRN 07/02/18 Albuterol Aerosols [Ventolin Aerosols] 2.5 mg INHALATION Q4H PRN PRN 12/04/18 Bifidobacter. Bifidum/B.longum [Florajen Bifidoblend Capsule] 460 mg PO DAILY 12/04/18 amiodarone 200 mg tablet 200 mg PO DAILY #90 tab 12/26/18 metoprolol tartrate 25 mg tablet 12.5 mg PO BID #90 tab 12/26/18 verapamil 240 mg tablet,extended release 240 mg PO DAILY #90 tab 12/26/18 Ammonium Lactate 1 applic TOPICAL DAILY PRN 02/10/19 Benzonatate 200 mg PO TID PRN 02/10/19 Ondansetron [Zofran] 4 mg PO Q6H PRN 02/10/19 Thiamine Mononitrate (Vit B1) [Vitamin B-1] 100 mg PO DAILY 02/10/19 Warfarin Sodium 2 mg PO DAILY 02/10/19 Acetaminophen [Tylenol Tablet] 650 mg PO Q6H PRN PRN tab 02/12/19 Cefdinir [Omnicef [equiv]] 300 mg PO Q12H #6 cap 02/12/19 Losartan Potassium [Cozaar] 50 mg PO DAILY #30 tab 02/12/19 predniSONE tablet 40 mg PO DAILY #8 tab 02/12/19 The following prescriptions were given: Losartan Potassium [Cozaar] 50 mg PO DAILY #30 tab Transmission Status: Pending to [facility]/pharmacy #[id number] Cefdinir [Omnicef [equiv]] 300 mg PO Q12H #6 cap Transmission Status: Pending to [facility]pharmacy #[id number] predniSONE tablet 40 mg PO DAILY #8 tab Transmission Status: Pending to [facility]/pharmacy #[id number] Primary Care Physician: Paul Reynolds MD [Primary Care Provider] - Please follow up with your Primary Care Physician in: 1-2 weeks Test Results: Test results from this visit will be discussed in further detail at your follow- up appointment, if applicable. Please Follow Up With: Paul Reynolds MD Please Follow Up With: Ted Tee DO When: 3-4 weeks Proposed Discharge Date: 02/12/19
--- NOTE | 2019-02-12 13:53 | DS.PCM_ITS ---
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 Developing bibasilar infiltrates, left more than right. RAD/Chest PA and Lateral IMPRESSION: Improved aeration of the lung bases as compared to prior study. Residual pleural parenchymal changes persist at the left lung base. Operations: None Procedures: None Summary of Care Provided: Hospital course: The patient is a 68 year old F with complaints of cough, weakness, fever. In the emergency room she had a fever of 102.9, chest x-ray suggesting of bibasilar infiltrates. She was felt to be septic secondary to community-acquired pneumonia with sepsis criteria of fever, heart rate greater than 90, tachypnea, leukocytosis with positive source of infection being pneumonia. She was started on Rocephin and azithromycin and admitted to the hospital for pneumonia and associated asthma exacerbation. She was also placed on IV Solu-Medrol for asthma. She is provided with aerosol therapy, incentive spirometer, pep therapy, Mucinex. She was temporarily on 2 L/min of oxygen via nasal cannula. She improved dramatically to the above therapy. She is able to be weaned completely off of oxygen. She was ambulated in the [place] with no need for increased oxygenation. She will complete a total of 3 days of azithromycin therapy, 5 days of cephalosporin therapy. She was discharged home in stable condition. She will need to follow-up with her PCP in 1 to 2 weeks. I also advised her to follow-up with a sample display preparer, Dr. Tee, within the next month. Also noted the patient had complained that she had developed a dry cough after recently starting lisinopril-she was changed to losartan. This patient was seen by Perry Costa PA-C under the supervision of Doctor Andreea. [] - Physical Exam Vitals/I&O's: Vital Signs Temp Pulse Resp BP Pulse Ox 98.4 F 80 16 107/54 L 94 02/12/19 12:35 02/12/19 12:35 02/12/19 12:35 02/12/19 12:35 02/12/19 12:35 Oxygen Flow Rate (L/min) 1 Oxygen Delivery Method Room Air Weight: 182 lb 15.739 oz Body Mass Index (BMI) 29.5 Intake and Output for Last 24 Hours 02/10/19 02/11/19 02/12/19 23:59 23:59 23:59 Intake Total 305 / 505 2686.67 / 2686.67 405 / 405 Output Total 925 / 925 450 / 450 Balance 305 / 205 1761.67 / 1761.67 -45 / -45 General: Alert, Oriented x3, Cooperative HEENT: Atraumatic, PERRLA, EOMI, Normocephalic Neck: Supple, No JVD, Negative Carotid Bruits Lungs: Clear to auscultation, Normal air movement Cardiovascular: Regular rate, No murmurs Abdomen: Bowel Sounds Present, Soft, Non Tender Extremities: No edema, Capillary Refill Less than 3 Seconds Skin: No rashes, No breakdown Musculoskeletal: No Tenderness to Palpation of Joints or Extremities Neurological: Cranial nerves II-XII grossly intact Psych/Mental Status: Normal Affect, Appropriate, Alert and oriented to time, place, person, mood and affect Microbiology Past 72 Hours 02/10/19 19:18 Urine, Clean Catch Urine Culture - Final Mixed Gram Pos & Gram Neg Org 02/10/19 22:35 Mucosa - Nasopharyngeal Respiratory Panel (PCR) - Final 02/10/19 19:18 Urine, Clean Catch Streptococcus pneumoniae Antigen (M - Final 02/10/19 19:18 Urine, Clean Catch Legionella Antigen - Final 02/10/19 18:40 Mucosa - Nose Influenza Types A,B Direct FA (CARITO) - Final Laboratory Results 02/12/19 04:54: PT 15.2 H, INR 1.2 02/12/19 04:54: WBC 12.6 H, RBC 4.12 L, Hgb 12.0, Hct 37.2, MCV 90.3, MCH 29.1, MCHC 32.3, RDW Std Deviation 41.2, RDW Coeff of Kahlil 12.6, Plt Count 209, MPV 10.4, Immature Gran % (Auto) 1.100 H, Neut % (Auto) 89.1 H, Lymph % (Auto) 7.5 L , Grand % (Auto) 2.2, Eos % (Auto) 0.1, Baso % (Auto) 0.0, Absolute Neuts (auto) 11.2 H, Absolute Lymphs (auto) 0.94, Nucleated RBC % 0 Discharge Diet: Low fat/ Low Cholesterol, 2000 mg Sodium Diet Discharge Activity: Return to Normal Activity Home Medications: Medications to take at Discharge Epi Pen (for allergic rxn) 0.3 mg IM X1 05/04/13 Loratadine [Claritin] 10 mg PO DAILY 05/04/13 Albuterol Sulfate [Ventolin Hfa] 2 puff IH Q6H PRN PRN 12/26/15 Pantoprazole Sodium [Protonix] 20 mg PO DAILY 12/26/15 CycloSPORINE Ophthalmic [Restasis Ophthalmic] 1 drp EACH EYE BID 03/28/16 Fluticasone/Salmeterol [Advair 100-50 Diskus] 1 puff IH BID PRN 03/28/16 Meclizine HCl 25 mg PO Q6H PRN 03/28/16 Atorvastatin Calcium [Lipitor] 40 mg PO DAILY 07/02/18 Fluticasone 0.05% [Flonase Nasal [place]] 2 spray NASAL DAILY PRN PRN 07/02/18 Albuterol Aerosols [Ventolin Aerosols] 2.5 mg INHALATION Q4H PRN PRN 12/04/18 Bifidobacter. Bifidum/B.longum [Florajen Bifidoblend Capsule] 460 mg PO DAILY 12/04/18 amiodarone 200 mg tablet 200 mg PO DAILY #90 tab 12/26/18 metoprolol tartrate 25 mg tablet 12.5 mg PO BID #90 tab 12/26/18 verapamil 240 mg tablet,extended release 240 mg PO DAILY #90 tab 12/26/18 Ammonium Lactate 1 applic TOPICAL DAILY PRN 02/10/19 Benzonatate 200 mg PO TID PRN 02/10/19 Ondansetron [Zofran] 4 mg PO Q6H PRN 02/10/19 Thiamine Mononitrate (Vit B1) [Vitamin B-1] 100 mg PO DAILY 02/10/19 Warfarin Sodium 2 mg PO DAILY 02/10/19 Acetaminophen [Tylenol Tablet] 650 mg PO Q6H PRN PRN tab 02/12/19 Cefdinir [Omnicef [equiv]] 300 mg PO Q12H #6 cap 02/12/19 Losartan Potassium [Cozaar] 50 mg PO DAILY #30 tab 02/12/19 predniSONE tablet 40 mg PO DAILY #8 tab 02/12/19 Following Prescrptions Were Given to Patient: Losartan Potassium [Cozaar] 50 mg PO DAILY #30 tab Transmission Status: Received by [id number] Cefdinir [Omnicef [equiv]] 300 mg PO Q12H #6 cap Transmission Status: Received by [id number] predniSONE tablet 40 mg PO DAILY #8 tab Transmission Status: Received by [id number] Primary Care Physician: Paul Reynolds MD [Primary Care Provider] - Please follow up with your Primary Care Physician in: 1-2 weeks Please Follow Up With: Paul Reynolds MD Please Follow Up With: Ted Tee DO When: 3-4 weeks Disposition: Home Minutes spent on discharge:: 35 Patient Condition:: Stable Medical Necessity - Tobacco Use Smoking Status: Never smoker Meaningful Use Info Meaningful Use Diagnoses (Choose all that apply): None applicable <Codey Doran - Last Filed: 02/12/19 15:05> Discharge Date and Diagnosis - Secondary Discharge Diagnosis Chronic Problems (Last Updated 12/27/18 @ 09:22 by Shameka Cox) On amiodarone therapy (Chronic) 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 (Chronic) Atrial fibrillation (Chronic) Asthma (Chronic) TIA (transient ischemic attack) (Chronic) HTN (hypertension) (Chronic) HLD (hyperlipidemia) (Chronic) Headache (Chronic) BMI greater than 30 (Chronic) Migraine (Chronic) GERD (gastroesophageal reflux disease) (Chronic) Asthma exacerbation (Chronic) Hospital Course and Treatment Summary of Care Provided: Patient was seen in conjunction with Perry Igor PA-C . I have independently interviewed and examined the patient and reviewed pertinent historical, laboratory, and other data. Please refer to Perry Costa PA-C note for details of this patient's presentation, findings, and recommendations. I have reviewed Perry Costa PA-C note and concur with documented findings. In brief, patient is a 68-year-old lady admitted with progressive shortness of breath. An assessment of sepsis secondary to community-acquired pneumonia made admitted to a monitored bed for further management Assessment: 1. Sepsis secondary to community-acquired pneumonia 2. Community-acquired pneumonia 3. Paroxysmal atrial fibrillation 4. Did ask my suspicion 5. Essential potential 6. Chronic migraine 7. GERD 8. Left foot drop (chronic) Hospital course: As documented above - Physical Exam Vitals/I&O's: Vital Signs Temp Pulse Resp BP Pulse Ox 98.4 F 80 16 107/54 L 94 02/12/19 12:35 02/12/19 12:35 02/12/19 12:35 02/12/19 12:35 02/12/19 12:35 Oxygen Flow Rate (L/min) 1 Oxygen Delivery Method Room Air Weight: 83 kg Body Mass Index (BMI) 29.5 Intake and Output for Last 24 Hours 02/10/19 02/11/19 02/12/19 23:59 23:59 23:59 Intake Total 305 / 505 2686.67 / 2686.67 405 / 405 Output Total 925 / 925 450 / 450 Balance 305 / 205 1761.67 / 1761.67 -45 / -45 Microbiology Past 72 Hours 02/10/19 19:18 Urine, Clean Catch Urine Culture - Final Mixed Gram Pos & Gram Neg Org 02/10/19 22:35 Mucosa - Nasopharyngeal Respiratory Panel (PCR) - Final 02/10/19 19:18 Urine, Clean Catch Streptococcus pneumoniae Antigen (M - Final 02/10/19 19:18 Urine, Clean Catch Legionella Antigen - Final 02/10/19 18:40 Mucosa - Nose Influenza Types A,B Direct FA (CARITO) - Final Laboratory Results 02/12/19 04:54: PT 15.2 H, INR 1.2 02/12/19 04:54: WBC 12.6 H, RBC 4.12 L, Hgb 12.0, Hct 37.2, MCV 90.3, MCH 29.1, MCHC 32.3, RDW Std Deviation 41.2, RDW Coeff of Kahlil 12.6, Plt Count 209, MPV 10.4, Immature Gran % (Auto) 1.100 H, Neut % (Auto) 89.1 H, Lymph % (Auto) 7.5 L , Grand % (Auto) 2.2, Eos % (Auto) 0.1, Baso % (Auto) 0.0, Absolute Neuts (auto) 11.2 H, Absolute Lymphs (auto) 0.94, Nucleated RBC % 0 Code Visit Inpatient E&M: [id number] Disch Hosp
--- NOTE | 2019-02-13 13:35 | CASEMGMT ---
CHAPARRITA LEONG Discharge Follow-Up Phone Call. Rosa: 14 Strata: 4 Discharge Date: 02-12-19 Adm Dx: Pneumonia, Asthma Exac Call to pt to inquire about how she has been doing since being discharged from the hospital. Pt stated that she started with a sore throat last evening but that she got some hot tea and Tylenol last evening and some Robitussin today. She states she has been trying to rest today and is feeling a little better. She states she was able to picker and packer the new prescriptions and has been taking them as instructed. She is aware of the appts made with Dr Reynolds and Dr Tee. She denies having any questions about the discharge instructions, medications, or the follow up appts. CHAPARRITA LEONG thanked pt for choosing [facility]. Alpohnso WHALEY RN, CM
== END 2019-02-12 13:17 | disposition home or self-care (01) | DRG 871 ==
LOC: ED 20:11 → PCU 20:53
PROVIDERS: Physician Assistant; Admitting Provider Internal Medicine; Emergency Provider Emergency Medicine; Family Provider Family Medicine; PCP Family Medicine; Visit Provider Internal Medicine
DX: A41.9 Sepsis, unspecified organism (principal); J18.9 Pneumonia, unspecified organism; J45.901 Unspecified asthma with (acute) exacerbation; N39.0 Urinary tract infection, site not specified; I48.0 Paroxysmal atrial fibrillation; I10 Essential (primary) hypertension; E78.5 Hyperlipidemia, unspecified; M21.372 Foot drop, left foot; K21.9 Gastro-esophageal reflux disease without esophagitis; G43.909 Migraine, unspecified, not intractable, without status migrainosus; Z86.73 Personal history of transient ischemic attack (TIA), and cerebral infarction without residual deficits; Z79.01 Long term (current) use of anticoagulants
CPT/HCPCS: 36415; 71045; 71046; 80048; 80053; 81001; 83605; 83735; 84443; 85025; 85610; 85730; 87040; 87086; 87088; 87449; 87633; 87641; 87804; 93005; 94640; 94667; 94668; 97162; 97166; 97530; 97802; 99251; 99285; J7030; A4216; G0463; J0696

== ENCOUNTER → 2019-03-03 11:03 | Outpatient (CLI) | payer MEDICARE, SELFPAY ==
[2019-03-03 07:32] VITALS: BMI 29.0
[2019-03-03 12:10] LABS: Absolute Lymphocyte Count 2.07 X10^3/uL (0.83-4.51); Absolute Neutrophil Count 2.7 X10^3/uL (2.0-7.7); Basophil# 0.06 X10^3/uL; Basophil% 1.1 % (0-1); Eosinophil# 0.13 X10^3/uL; Eosinophils% 2.4 % (0-5); Hematocrit 43.3 % (37-47); Lymphocyte # 2.07 X10^3/ul (4.0); Lymphocyte % 37.6 % (19-41); Mean Corp Hgb Conc 32.3 g/dL (32-36); Mean Corpuscular Hgb 28.7 pg (27.0-32.0); Mean Corpuscular Volume 88.7 fL (81-99); Mean Platelet Vol. 9.9 fl (6.2-12.0); Monocyte# 0.52 X10^3/uL; Monocyte% 9.5 % (0-10); NRBC Flagged by Analyzer 0 % (0-5); Neutrophil # 2.67 X10^3/uL (2.7-7.7); Neutrophil % 48.5 % (47-70); Platelet Count 212 K/mm3 (150-450); RBC Distribution Width CV 12.6 % (11.6-14.6); RBC Distribution Width SD 40.7 fl (35.1-43.9); Red Blood Count 4.88 M/mm3 (4.2-5.4); White Blood Count 5.5 K/mm3 (4.4-11.0)
[2019-03-06 03:06] LABS: Alternaria tenuis <0.10 kU/L (Class 0); Ash, White <0.10 kU/L (Class 0); Aspergillus fumigatus <0.10 kU/L (Class 0); Bermuda Grass <0.10 kU/L (Class 0); Birch <0.10 kU/L (Class 0); Black Walnut <0.10 kU/L (Class 0); Cat Hair / Dander,Stand <0.10 kU/L (Class 0); Cedar, Mountain <0.10 kU/L (Class 0); Cladosporium herbarum <0.10 kU/L (Class 0); Cockroach, American <0.10 kU/L (Class 0); Cottonwood <0.10 kU/L (Class 0); D farinae Mite <0.10 kU/L (Class 0); D pteronyssinus <0.10 kU/L (Class 0); Dog Epithelia <0.10 kU/L (Class 0); Elm, American White <0.10 kU/L (Class 0); Immunoglobulin E 4 IU/mL (6-495); Maple/Box Elder <0.10 kU/L (Class 0); Mulberry, White <0.10 kU/L (Class 0); Oak, White <0.10 kU/L (Class 0); Pecan <0.10 kU/L (Class 0); Penicillium Notatum <0.10 kU/L (Class 0); Pigweed, Rough <0.10 kU/L (Class 0); Ragweed, Short/Common <0.10 kU/L (Class 0); Russian Thistle <0.10 kU/L (Class 0); Sheep Sorrel <0.10 kU/L (Class 0); Sycamore, American <0.10 kU/L (Class 0); Timothy Grass <0.10 kU/L (Class 0)
[2019-03-06 08:10] LABS: Mouse Urine <0.10 kU/L (Class 0)
[2019-03-06 08:19] LABS: Immunoglobulin E 4 IU/mL (6-495)
== END ==
PROVIDERS: Family Provider Family Medicine; PCP Family Medicine; Referring Provider Internal Medicine Critical Care Medicine; Visit Provider Internal Medicine Critical Care Medicine
DX: J45.909 Unspecified asthma, uncomplicated (principal)
CPT/HCPCS: 36415; 82785; 85025; 86003

== ENCOUNTER 2019-04-24 16:57 | Observation (INO) | payer MEDICARE, SELFPAY ==
[2019-03-03 07:32] VITALS: BMI 29.0
[2019-04-24 17:17] VITALS: BP 120/71; PULSE 85; RESP 17; TEMP 37.2; O2SAT 93; BMI 30.7
--- NOTE | 2019-04-24 19:23 | EKG12_ITS ---
Test Reason : CHEST PRESSURE Blood Pressure : / mmHG Vent. Rate : 078 BPM Atrial Rate : 078 BPM P-R Int : 168 ms QRS Dur : 088 ms QT Int : 452 ms P-R-T Axes : 070 035 050 degrees QTc Int : 515 ms Normal sinus rhythm Nonspecific ST and T wave abnormality Prolonged QT Abnormal ECG Confirmed by ROBBIE ALLEN, PRINCESS ([id number]), general expeditor DERECK ALBA ([id number]) on 04/28/2019 9:52:01 AM Referred By: SANDRA Confirmed By:PRINCESS AVALOS MD
--- NOTE | 2019-04-24 19:26 | ED.VIS.GEN ---
History of Present Illness Chief Complaint: Complaint Onset: Days - 2 Context: Gradual Onset Timing: Continuous Narrative: Patient started having dysuria and frequency a couple days ago stopped by urgent care, had a urinalysis showing infection and prescribed Macrobid. She took a dose immediately that evening which was yesterday, and another 1 today. She is feeling worse. The pain is radiating into her low back from her suprapubic area, she is developed fevers, nausea, vomiting, and twice when standing up to walk around her house she became lightheaded and then subsequently passed out, waking up on the floor. She denies any pain or apparent injury from that. She denies any thoracic symptoms or preceding palpitations prior to passing out. She has a headache and her neck feels stiff and painful, especially when she bends her chin down to her chest; she denies any confusion or focal neurologic symptoms in her periphery. - Past Medical History (1) Atrial fibrillation with rapid ventricular response Status: Chronic (2) CVA (cerebral vascular accident) Status: Chronic (3) Asthma Status: Chronic (4) GERD (gastroesophageal reflux disease) Status: Chronic (5) HLD (hyperlipidemia) Status: Chronic (6) HTN (hypertension) Status: Chronic (7) 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 Status: Chronic (8) Migraine Status: Chronic (9) TIA (transient ischemic attack) Status: Chronic Past Medical History - Allergies and Home Meds Allergies/Adverse Reactions: Allergies adhesive tape Allergy (Verified 03/03/19 10:03) Rash propoxyphene HCl [From Darvon] Allergy (Verified 03/03/19 10:03) Rash sulfamethoxazole [From Bactrim] Allergy (Verified 03/03/19 10:03) Shortness of breath trimethoprim [From Bactrim] Allergy (Verified 03/03/19 10:03) Shortness of breath venom-honey bee [bee venom (honey bee)] Allergy (Verified 03/03/19 10:03) Anaphylaxis venom-wasp [wasp venom] Allergy (Verified 03/03/19 10:03) Anaphylaxis prednisone Adverse Reaction (Verified 03/03/19 10:03) Diarrhea anything that stings Allergy (Uncoded 03/03/19 10:03) Anaphylaxis banana peppers Allergy (Uncoded 03/03/19 10:03) Hives FIBERGLASS Allergy (Uncoded 03/03/19 10:03) Shortness of breath Primary Care Physician: Paul Reynolds MD [Primary Care Provider] - Surgical History: - - Cholecystectomy, hysterectomy, right mastoid tumor resection. Lives: Alone Smoking Status: Never smoker - Family History Paternal Family History: Family History (Last Reviewed 03/03/19 @ 10:03 by Kristine Schmidt) Father CAD (coronary artery disease) Family History: Reports: Heart Disease Maternal Family History: Family History (Last Reviewed 03/03/19 @ 10:03 by Kristine Schmidt) Father CAD (coronary artery disease) Family History: Reports: Unknown - Patient notes that she does not know any maternal history, mother never went to the doctor. She denies any known history of heart disease, diabetes or cancer. Review of Systems General: Reports: Chills, Fever, Malaise. Denies: Sweats Eyes: Denies: Visual changes - bilaterally, Diplopia ENT: Denies: Bilateral ear pain, Rhinorrhea, Sore throat Cardiovascular: Denies: Chest pain, Palpitations Respiratory: Reports: Cough. Denies: Dyspnea, Sputum, Dyspnea on exertion Gastrointestinal: Reports: Abdominal pain, Nausea. Denies: Vomiting, Diarrhea, Melena, Hematochezia Genitourinary: Reports: Dysuria, Frequency. Denies: Hematuria Musculoskeletal: Reports: Neck pain. Denies: Back pain, Swelling, Extremity Pain Skin: Denies: Rash, Wounds Neurological: Reports: Headache. Denies: Weakness, Numbness Physical Exam Vital Signs/Narrative: Vital Signs Temp Pulse Resp BP Pulse Ox 04/24/19 17:17 99.0 F 85 17 120/71 93 Inital Vital Signs reviewed: Yes General: Well nourished, Well developed, No Acute Distress Head: Normocephalic, Atraumatic Eyes: Perrl, EOMI ENT: Moist mucous membranes, No rhinorrhea Neck: Nontender, No lymphadenopathy, - - stiff, able to turn bilat, but limited at extremes, inc pain w/ [id number] but able; no meningismus Cardiovascular: Regular rate, Regular rhythm, No murmurs Respiratory: No distress, CTA bilaterally, Chest nontender Abdomen: Soft, Nondistended, Normal bowel sounds, Tender - mild throughout lower abd. Negative for: Guarding, Rebound tenderness Back: Nontender, Normal Inspection. Negative for: CVA tenderness Extremities: Nontender, No edema. Negative for: Calf Tenderness Skin: Normal color, No rash Neurological: Alert, Oriented x3, Cranial nerves II-XII grossly intact, Normal Strength, Normal Sensation Psychological: Normal affect, Normal Mood Diagnostic/Tx/Re-eval Impressions Chest X-Ray 04/24/19 19:35 IMPRESSION: Small left lower lobe infiltrate. Electronically Signed: Erick Bernal MD at 19:50 EST , Service support , 04/24/19 19:35 Chest 1 View (Portable) [RAD] Stat 04/24/19 22:15 CT Brain [Brain/Head without Contrast] [CT] Stat Laboratory Results 04/24/19 04/24/19 04/24/19 19:40 19:40 19:40 WBC RBC Hgb Hct MCV MCH MCHC RDW Std Deviation RDW Coeff of Kahlil Plt Count MPV Immature Gran % (Auto) Neut % (Auto) Lymph % (Auto) Zavala % (Auto) Eos % (Auto) Baso % (Auto) Absolute Neuts (auto) Absolute Lymphs (auto) Nucleated RBC % PT 14.4 INR 1.1 Sodium 142 Potassium 3.1 L Chloride 109 H Carbon Dioxide 28.0 Anion Gap 5 BUN 21 H Creatinine 1.00 Estim Creat Clear Calc 50.41 Est GFR (MDRD) Af Amer 71 Est GFR (MDRD) Non-Af 59 L BUN/Creatinine Ratio 21.1 H Glucose 95 Lactic Acid 0.7 Calcium 9.0 Total Bilirubin 1.20 H AST 22 ALT 32 Alkaline Phosphatase 118 H Troponin I < 0.015 Total Protein 7.2 Albumin 3.5 Globulin 3.7 Albumin/Globulin Ratio 0.9 Urine Color Urine Clarity Urine pH Ur Specific Franklin Urine Protein Urine Glucose (UA) Urine Ketones Urine Occult Blood Urine Nitrite Urine Bilirubin Urine Urobilinogen Ur Leukocyte Esterase Urine RBC Urine WBC Ur Squamous Epith Cells Amorphous Sediment Urine Bacteria Hyaline Casts Urine Mucus 04/24/19 04/24/19 19:40 20:20 WBC 16.7 H RBC 5.27 Hgb 14.7 Hct 46.3 MCV 87.9 MCH 27.9 MCHC 31.7 L RDW Std Deviation 42.6 RDW Coeff of Kahlil 13.2 Plt Count 245 MPV 10.2 Immature Gran % (Auto) 0.500 Neut % (Auto) 80.6 H Lymph % (Auto) 9.7 L Zavala % (Auto) 5.6 Eos % (Auto) 3.4 Baso % (Auto) 0.2 Absolute Neuts (auto) 13.5 H Absolute Lymphs (auto) 1.61 Nucleated RBC % 0 PT INR Sodium Potassium Chloride Carbon Dioxide Anion Gap BUN Creatinine Estim Creat Clear Calc Est GFR (MDRD) Af Amer Est GFR (MDRD) Non-Af BUN/Creatinine Ratio Glucose Lactic Acid Calcium Total Bilirubin AST ALT Alkaline Phosphatase Troponin I Total Protein Albumin Globulin Albumin/Globulin Ratio Urine Color Yellow Urine Clarity Clear Urine pH 5.0 Ur Specific Franklin 1.020 Urine Protein 15 H Urine Glucose (UA) Normal Urine Ketones Negative Urine Occult Blood 10 H Urine Nitrite Negative Urine Bilirubin Negative Urine Urobilinogen Normal Ur Leukocyte Esterase 25 H Urine RBC 0-5 SEEN Urine WBC 0-5 SEEN Ur Squamous Epith Cells 0-5 SEEN Amorphous Sediment 1+ URATE Urine Bacteria 0 SEEN Hyaline Casts 0-5 SEEN Urine Mucus RARE - Rhythm Strip Rhythm Strip: Sinus Rhythm Rate: 72 Ectopy: None - EKG Initial EKG Interpretation: Sinus Rhythm, No Acute Injury Pattern, Non-Specific ST Changes Prior: Unchanged Follow-up EKG Interpretation: Sinus Rhythm, No Acute Injury Pattern, Non-Specific ST Changes Prior: Unchanged - Compared with prior, above - Medical Decision Making Patient has a leukocytosis and chest x-ray shows a small left lower lobe infiltrate. She has had no shortness of breath or hypoxemia. Her lactate is within normal limits, and her urinalysis shows minimal signs of infection, indicating either she has a partially treated infection, or that it was not infected. After blood cultures and urine was obtained, she was empirically given Rocephin prior to any test resulting. She was given Tylenol for headache. On reexamination, she still has a headache it did not help at all, and her neck is feeling a little more stiff. My concern is that she may have meningitis. She consents to a lumbar puncture. CT was obtained beforehand, and is unremarkable. Several attempts were attempted at LP, both left lateral decubitus and sitting in position, patient had very difficult time arching her back outward, which made the procedure difficult in getting between her spinous processes. I was able to do so however, eventually, and hubbed the needle without the patient having significant discomfort during this, but there was no fluid able to be obtained on multiple checks. Therefore the procedure was aborted, she was treated empirically, I also obtained influenza since she confirms that she has been coughing some, which initially she denied, she states it is nonproductive, and she states she tested positive for influenza several weeks ago now, when she went to an urgent care for her respiratory illness. Her influenza returned negative. The plan is for admission for further monitoring, and if she still has the headache and neck stiffness, to have interventional radiology perform CT-guided lumbar puncture tomorrow, they are not available at this time. Prior to discussing with hospitalist, she developed chest pressure in her epigastrium going up her retrosternal area. Examined her, her heart is regular without dysrhythmia on the monitor, her lungs are clear, she is in no respiratory distress. An EKG was immediately repeated, it is unchanged and unremarkable. We sat her up and gave her an albuterol treatment. Procedures - Lumbar Puncture Consent/Risks: Consent for procedure obtained, Risks/Benefits/Alternatives Discussed Lumbar Puncture Description: Left, Lateral - Followed by sitting position on second attempt, Sterile Prep, Betadine Prep, Sterile Technique, L3-4 Spinal Needle: 20g Sedation: none; morphine given for analgesia Opening Pressure: not obtained Fluid Color: fluid not obtained ED Disposition - Plan for ED Patient: Disposition: Acute Care Hospital [facility] Diagnosis: Community acquired pneumonia, Syncope, Headache, Chest pain, unspecified Referrals: Paul Reynolds MD [Primary Care Provider] -
--- NOTE | 2019-04-24 19:35 | RAD_ITS ---
STUDY: X-RAY CHEST REASON FOR EXAM: Female, 69 years old. PT DX WITH UTI RICKIE, C/O URINARY FREQUENCY, BURNING. ALSO HEADACHE, DIZZINESS, AND BACK PAIN. FEVER TECHNIQUE: Single AP portable view of the chest. COMPARISON: February 11, 2019 FINDINGS: Small left lower lobe infiltrate is present costophrenic region. There are interstitial fibrotic changes of the lungs. No focal consolidation is seen. There is no demonstrated pleural abnormality. Normal size heart. Normal mediastinum and gagandeep. Normal visualized pulmonary arteries. There is atherosclerotic calcification of the aortic arch with tortuosity. There is demineralization of the osseous structures. Normal visualized ribs, clavicles, and shoulders. RAD/Chest 1 View (Portable) IMPRESSION: Small left lower lobe infiltrate. Electronically Signed: Erick Bernal MD at 19:50 EST , Service support ,
[2019-04-24] MEDS: 0.9% Normal Saline 1,000 ML 999 ML IV (19:43)
[2019-04-24 19:53] LABS: Absolute Lymphocyte Count 1.61 X10^3/uL (0.83-4.51); Absolute Neutrophil Count 13.5 X10^3/uL (2.0-7.7); Basophil# 0.04 X10^3/uL; Basophil% 0.2 % (0-1); Eosinophil# 0.56 X10^3/uL; Eosinophils% 3.4 % (0-5); Hematocrit 46.3 % (37-47); Hemoglobin 14.7 g/dL (12.0-15.0); Lymphocyte # 1.61 X10^3/ul (4.0); Lymphocyte % 9.7 % (19-41); Mean Corp Hgb Conc 31.7 g/dL (32-36); Mean Corpuscular Hgb 27.9 pg (27.0-32.0); Mean Corpuscular Volume 87.9 fL (81-99); Mean Platelet Vol. 10.2 fl (6.2-12.0); Monocyte# 0.93 X10^3/uL; Monocyte% 5.6 % (0-10); NRBC Flagged by Analyzer 0 % (0-5); Neutrophil # 13.45 X10^3/uL (2.7-7.7); Neutrophil % 80.6 % (47-70); Platelet Count 245 K/mm3 (150-450); RBC Distribution Width CV 13.2 % (11.6-14.6); RBC Distribution Width SD 42.6 fl (35.1-43.9); Red Blood Count 5.27 M/mm3 (4.2-5.4); White Blood Count 16.7 K/mm3 (4.4-11.0)
[2019-04-24 20:10] LABS: International Normalized Ratio 1.1; Prothrombin Time (Protime)PT. 14.4 SECONDS (11.7-14.9)
[2019-04-24 20:19] LABS: ALB/GLOB Ratio 0.9 RATIO (0.9-2.4); AST(SGOT) 22 U/L (15-37); Alanine Aminotransfer ALT/SGPT 32 U/L (13-56); Albumin, Serum 3.5 g/dL (3.2-5.0); Alkaline Phosphatase 118 U/L (45-117); Anion Gap 5 (5-15); BUN 21 mg/dL (7-18); BUN/Creat Ratio 21.1 RATIO (10-20); Chloride 109 mmol/L (98-107); EST Glomerular Filtration Rate 59 mL/min (>60); Est Glom Filt Rate - Afr Amer 71 mL/min (>60); Estimated Creatinine Clearance 50.41 ml/min; Globulin 3.7 g/dL (2.2-4.2); Glucose 95 mg/dL (74-106); Potassium 3.1 mmol/L (3.5-5.1); Protein, Total 7.2 g/dL (6.4-8.2); Sodium Level 142 mmol/L (136-145)
[2019-04-24 20:30] LABS: Bacteria 0 SEEN /hpf (None Seen)
[2019-04-24 20:31] LABS: Lactic Acid 0.7 mmol/L (0.4-1.9)
[2019-04-24 20:44] VITALS: BP 140/96; PULSE 75; RESP 20; O2SAT 95
[2019-04-24 20:51] LABS: Color, Urine Yellow (Yellow); Glucose, Dipstick Normal (Normal); Ketone-Dipstick Negative (Negative); Leukocyte Esterase-Dipstick 25 /ul (Negative); Nitrite-Dipstick Negative (Negative); Occult Blood-Urine 10 /ul (Negative); Protein-Dipstick 15 mg/dl (Negative); Urine Bilirubin Dipstick Negative (Negative); Urine Clarity Clear (Clear); Urine Urobilinogen Normal (Normal)
[2019-04-24] MEDS: Ceftriaxone 1 GM/50 ML BAG IV (20:52)
[2019-04-24 21:00] VITALS: BP 141/71; PULSE 80; RESP 18; TEMP 37; O2SAT 96
[2019-04-24] MEDS: Acetaminophen 500 MG Tablet 1000 MG PO (21:06)
[2019-04-24 21:08] LABS: Amorphous Sediment 1+ URATE; Hyaline Cast 0-5 SEEN /lpf (0-5); Mucous, Urine RARE /hpf (<or=2+); Red Blood Cells-Urine 0-5 SEEN /hpf (0-5); Squamous Epithelial Cells - UA 0-5 SEEN /hpf (5-10); White Blood Cells 0-5 SEEN /hpf (0-5)
--- NOTE | 2019-04-24 22:15 | CT_ITS ---
STUDY: CT BRAIN WITHOUT CONTRAST REASON FOR EXAM: Female, 69 years old. HEADACHE, DIZZINESS, FEVER. H/O CVA, TIAS, MIGRAINES RADIATION DOSAGE (If Supplied By Facility): CTDIvol = ( 44.99 ) mGy, DLP = ( 711.75 ) mGycm TECHNIQUE: Transaxial CT imaging of the brain was performed without administration of intravenous contrast material. Individualized dose optimization techniques were used for this CT. COMPARISON: CT brain noncontrast 07/02/2018. 03/17/2016. MRI brain noncontrast 07/03/2018. FINDINGS: Normal soft tissue structures. Normal calvarium. Normal size ventricles and extra-axial spaces for the patient''s age. Normal white matter tracts of the cerebral hemispheres. Normal basal ganglia and thalami. Normal brainstem. Normal cerebellum. There is no intracranial hemorrhage. There are no findings of an acute ischemic infarction. Moderate chronic some sinus inflammation left maxillary sinus, slightly worsened. The bilateral mastoid air cells and ossicles are unopacified. CT/Brain/Head without Contrast IMPRESSION: Chronic sinus inflammation left maxillary sinus, slightly worsened. Involutional changes. There is no acute intracranial pathology. There is no significant interval change. Electronically Signed: Radha Thomas MD at 23:48 EST , Service support ,
[2019-04-24 22:51] VITALS: BP 124/68; PULSE 76; RESP 22; TEMP 37; O2SAT 95
[2019-04-25] VITALS (19 sets, daily range): BP systolic 104–174; BP diastolic 50–91; PULSE 67–118; RESP 15–23; TEMP 36.4–37; O2SAT 92–99; BMI 29.5
[2019-04-25] MEDS: Morphine 4 MG/ML Syringe IV (00:30)
--- NOTE | 2019-04-25 00:43 | EKG12_ITS ---
Test Reason : GI COMPLAINT Blood Pressure : / mmHG Vent. Rate : 072 BPM Atrial Rate : 072 BPM P-R Int : 156 ms QRS Dur : 082 ms QT Int : 652 ms P-R-T Axes : 065 019 067 degrees QTc Int : 713 ms Normal sinus rhythm Nonspecific T wave abnormality Abnormal ECG Confirmed by ROBBIE ALLEN, PRINCESS ([id number]), editor farm journal DERECK ALBA ([id number]) on 04/28/2019 9:51:43 AM Referred By: SANDRA Confirmed By:PRINCESS AVALOS MD
--- NOTE | 2019-04-25 00:53 | ED.RN ---
PT C/O CHEST PRESSURE. EKG OBTAINED. DR FLORES IN THE ROOM SPEAKING WITH THE PT
[2019-04-25] MEDS: Albuterol 2.5 MG/3 ML VIAL.NEB. INHALATION ×4 (00:56→20:33)
--- NOTE | 2019-04-25 01:41 | HP.PCM_ITS ---
History of Present Illness Date of Admission: 04/25/19 Chief Complaint: fever, lethargy The patient is a 69 year old F with PMH as outlined who was admitted via the ED with a complaint of fever. She was seen in the ED a few days priior to presentation, and was diagnosed with UTI. She was started on Nitrofurantoin. She however still had fever, and chills, and had associated weakness and lethargy as well as anorexia. She denied any chest pain, palpitations, dizziness, nausea or vomiting. She also complained of neck pain, and said she had pain with flexion of his neck. She hasnt had any long distance travel, and denied any blurred vision or change in vision. Patient states that she thinks she passed out about twice whilst at home because she had not been eating and drinking well and her legs just gave way. On admission in the ED, temperature was 98.6 with blood pressure of 174/85 and respiratory rate of 23. Chemistry showed potassium of 3.1 but was otherwise unremarkable. BMP showed sodium of 16.7 with hemoglobin of 14.7 and platelets of 245. Initial troponin was negative. Chest x-ray showed a small left lower lobe infiltrate. CT of the brain showed chronic sinus inflammation in the left maxillary sinus which is slightly worsened with involutional changes and no acute intracranial pathology. As in the ED, patient developed chest pain and troponin check was negative. EKG showed no acute ST changes with nonspecific T wave changes and there was also prolonged QT. Chest pain had improved at time of review. 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) Atrial fibrillation (Chronic) Asthma (Chronic) TIA (transient ischemic attack) (Chronic) Atrial fibrillation with rapid ventricular response (Chronic) CVA (cerebral vascular accident) (Chronic) HTN (hypertension) (Chronic) HLD (hyperlipidemia) (Chronic) Headache (Chronic) BMI greater than 30 (Chronic) Migraine (Chronic) GERD (gastroesophageal reflux disease) (Chronic) Asthma exacerbation (Chronic) Medical History: Medical History (Last Reviewed 03/03/19 @ 10:03 by Kristine Schmidt) On amiodarone therapy (Chronic) Z79.899 assisted current use of anticoagulant (Chronic) Z79.01 Atrial fibrillation (Chronic) I48.91 Asthma (Chronic) J45.909 TIA (transient ischemic attack) (Chronic) G45.9 Chest pain, unspecified (Resolved) R07.9 Community acquired bilateral lower lobe pneumonia (Resolved) J18.1 Respiratory failure with hypoxia (Resolved) J96.91 Atrial fibrillation with rapid ventricular response (Chronic) I48.91 Sepsis due to pneumonia (Resolved) J18.9, A41.9 CVA (cerebral vascular accident) (Chronic) I63.9 HTN (hypertension) (Chronic) I10 HLD (hyperlipidemia) (Chronic) E78.5 Migraine (Chronic) G43.909 GERD (gastroesophageal reflux disease) (Chronic) K21.9 Asthma exacerbation (Chronic) J45.901 Allergies adhesive tape Allergy (Verified 03/03/19 10:03) Rash propoxyphene HCl [From Darvon] Allergy (Verified 03/03/19 10:03) Rash sulfamethoxazole [From Bactrim] Allergy (Verified 03/03/19 10:03) Shortness of breath trimethoprim [From Bactrim] Allergy (Verified 03/03/19 10:03) Shortness of breath venom-honey bee [bee venom (honey bee)] Allergy (Verified 03/03/19 10:03) Anaphylaxis venom-wasp [wasp venom] Allergy (Verified 03/03/19 10:03) Anaphylaxis prednisone Adverse Reaction (Verified 03/03/19 10:03) Diarrhea anything that stings Allergy (Uncoded 03/03/19 10:03) Anaphylaxis banana peppers Allergy (Uncoded 03/03/19 10:03) Hives FIBERGLASS Allergy (Uncoded 03/03/19 10:03) Shortness of breath Home Medications: Ambulatory Orders Medication Instructions Recorded Epi Pen (for allergic rxn) 0.3 mg IM X1 05/04/13 Loratadine [Claritin] 10 mg PO DAILY 05/04/13 Albuterol Sulfate [Ventolin Hfa] 2 puff IH Q6H PRN PRN 12/26/15 Pantoprazole Sodium [Protonix] 20 mg PO DAILY 12/26/15 CycloSPORINE Ophthalmic [Restasis 1 drp EACH EYE BID 03/28/16 Ophthalmic] Fluticasone/Salmeterol [Advair 1 puff IH BID PRN 03/28/16 100-50 Diskus] Meclizine HCl 25 mg PO Q6H PRN 03/28/16 Atorvastatin Calcium [Lipitor] 40 mg PO DAILY 07/02/18 Fluticasone 0.05% [Flonase Nasal 2 spray NASAL DAILY PRN PRN 07/02/18 [place]] Albuterol Aerosols [Ventolin 2.5 mg INHALATION Q4H PRN PRN 12/04/18 Aerosols] Bifidobacter. Bifidum/B.longum 460 mg PO DAILY 12/04/18 [Florajen Bifidoblend Capsule] amiodarone 200 mg tablet 200 mg PO DAILY #90 tab 12/26/18 metoprolol tartrate 25 mg tablet 12.5 mg PO BID #90 tab 12/26/18 verapamil 240 mg tablet,extended 240 mg PO DAILY #90 tab 12/26/18 release Benzonatate 200 mg PO TID PRN 02/10/19 Ondansetron [Zofran] 4 mg PO Q6H PRN 02/10/19 Thiamine Mononitrate (Vit B1) 100 mg PO DAILY 02/10/19 [Vitamin B-1] Warfarin Sodium 2 mg PO DAILY 02/10/19 Acetaminophen [Tylenol Tablet] 650 mg PO Q6H PRN PRN tab 02/12/19 Nitrofurantoin Monohyd/M-Cryst 100 mg PO BID 04/24/19 [Macrobid 100 mg Capsule] Surgical History: Surgical History (Last Reviewed 03/03/19 @ 10:03 by Kristine Schmidt) History of cholecystectomy Z90.49 History of total hysterectomy Z90.710 history of mastoid tumor resection Surgical History: - - Cholecystectomy, hysterectomy, right mastoid tumor resection. 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 She denies any known history of heart disease, diabetes or cancer. Review of Systems Constitutional: Reports: Anorexia, Chills, Fever, Malaise, Weakness, Fatigue Eyes: Denies: Blurred vision HEENT: Denies: Head Aches, Sinus Congestion, Sinus Drainage Cardiovascular: Reports: Chest Pressure. Denies: Chest Pain, Palpitations Respiratory: Denies: Cough, Shortness of Breath, Shortness of breath at rest, Shortness of breath upon exertion, Sputum production Gastrointestinal: Denies: Abdominal Pain, Nausea, Vomiting Genitourinary: Denies: Dysuria Musculoskeletal: Denies: Joint Pain, Joint Tenderness Skin: Denies: Rash, Wounds Neurological: Reports: - - neck pain. Denies: Focal weakness, Numbness, Tingling Psychiatric: Denies: Anxiety, Depression, Homicidal Ideations, Suicidal Ideations Hematologic/ Lymphatic: Denies: Easy Bruising, Easy Bleeding VTE Information - Inpt Only VTE Present on Admission: No VTE Pharm Prophylaxis ordered?: Yes Patient Problems: Active and Suspected Problems (Last Reviewed 03/03/19 @ 10:03 by Kristine Schmidt) Community acquired pneumonia (Acute) Syncope (Acute) Chest pain, unspecified (Acute) - Physical Exam Vitals/I&O's: Vital Signs Temp Pulse Resp BP Pulse Ox 98.6 F 74 23 H 174/85 H 99 04/24/19 22:51 04/25/19 00:56 04/25/19 00:56 04/25/19 00:54 04/25/19 00:54 Oxygen Flow Rate (L/min) 2 Oxygen Delivery Method Nasal Cannula Weight: 190 lb Body Mass Index (BMI) 30.7 Intake and Output for Last 24 Hours 04/23/19 04/24/19 04/25/19 23:59 23:59 23:59 Intake Total 1050 / 1050 Balance 1050 / 1050 General: Alert, Oriented x3, Cooperative, No apparent distress, Lethargic HEENT: Atraumatic, PERRLA, EOMI, Normocephalic Oral: Dry Mucosa Neck: Supple, No JVD, Negative Carotid Bruits, No Nuchal Rigidity Lungs: Clear to auscultation, Normal air movement Cardiovascular: Regular rate, Regular Rhythm, Normal S1, Normal S2, No murmurs Abdomen: Bowel Sounds Present, Soft, Non Tender, Non-Distended, No Hepato- splenomegaly Extremities: No clubbing, No cyanosis, No edema, Capillary Refill Less than 3 Seconds Skin: No rashes, No breakdown Musculoskeletal: No Tenderness to Palpation of Joints or Extremities Lymphatic: No Cervical, Supraclavicular, or Inguinal Adenopathy Neurological: Cranial nerves II-XII grossly intact, - - neck supple, though she does have mild pain at the back of her neck with flexion. Kernig's and Brudzinski's negative. Psych/Mental Status: Normal Affect, Appropriate, Alert and oriented to time, place, person, mood and affect Microbiology Past 72 Hours 04/25/19 00:20 Mucosa - Nasopharyngeal Influenza Types A,B Direct FA (CARITO) - Final Laboratory Results 04/24/19 19:40: PT 14.4, INR 1.1 04/24/19 19:40: Sodium 142, Potassium 3.1 L, Chloride 109 H, Carbon Dioxide 28.0, Anion Gap 5, BUN 21 H, Creatinine 1.00, Estim Creat Clear Calc 50.41, Est GFR (MDRD) Af Amer 71, Est GFR (MDRD) Non-Af 59 L, BUN/Creatinine Ratio 21.1 H, Glucose 95, Calcium 9.0, Total Bilirubin 1.20 H, AST 22, ALT 32, Alkaline Phosphatase 118 H, Troponin I < 0.015, Total Protein 7.2, Albumin 3.5, Globulin 3.7, Albumin/Globulin Ratio 0.9 04/24/19 19:40: Lactic Acid 0.7 04/24/19 19:40: WBC 16.7 H, RBC 5.27, Hgb 14.7, Hct 46.3, MCV 87.9, MCH 27.9, MCHC 31.7 L, RDW Std Deviation 42.6, RDW Coeff of Kahlil 13.2, Plt Count 245, MPV 10.2, Immature Gran % (Auto) 0.500, Neut % (Auto) 80.6 H, Lymph % (Auto) 9.7 L, Cross % (Auto) 5.6, Eos % (Auto) 3.4, Baso % (Auto) 0.2, Absolute Neuts (auto) 13.5 H, Absolute Lymphs (auto) 1.61, Nucleated RBC % 0 04/24/19 20:20: Urine Color Yellow, Urine Clarity Clear, Urine pH 5.0, Ur S pecific [place]ton 1.020, Urine Protein 15 H, Urine Glucose (UA) Normal, Urine Ketones Negative, Urine Occult Blood 10 H, Urine Nitrite Negative, Urine B ilirubin Negative, Urine Urobilinogen Normal, Ur Leukocyte Esterase 25 H, Urine RBC 0-5 SEEN, Urine WBC 0-5 SEEN, Ur Squamous Epith Cells 0-5 SEEN, Amorphous Sediment 1+ URATE, Urine Bacteria 0 SEEN, Hyaline Casts 0-5 SEEN, Urine Mucus RARE Diagnostic Data Chest X-Ray 04/24/19 19:35 IMPRESSION: Small left lower lobe infiltrate. Electronically Signed: Erick Bernal MD at 19:50 EST , Service support , Brain CT 04/24/19 22:15 IMPRESSION: Chronic sinus inflammation left maxillary sinus, slightly worsened. Involutional changes. There is no acute intracranial pathology. There is no significant interval change. Electronically Signed: Radha Thomas MD at 23:48 EST , Service support , Assessment/Plan All Active Problems (Last Reviewed 03/03/19 @ 10:03 by Kristine Schmidt) Pneumonia (Acute) UTI (Acute) Community acquired pneumonia (Acute) Syncope (Acute) Chest pain, unspecified (Acute) Chest pain, unspecified (Resolved) Community acquired bilateral lower lobe pneumonia (Resolved) Respiratory failure with hypoxia (Resolved) Sepsis due to pneumonia (Resolved) Balance problem (Acute) 69 y/o admitted with a complaint of fever and chills as well as anorexia 1. sepsis due to Community acquired pneumonia * SIRS criteria is 2/4 with tachypnea and leukocytosis. * Chest x-ray showed small left lower lobe infiltrate. * Mid to MedSurg with telemetry. lactica brian was 0.7 * Currently on IV ceftriaxone. Received one dose of vancomycin in ED for suspected meningitis. Check urine for strep and Legionella. * Hydrate gently with IV fluid normal saline. 2. UTI: * Patient states she was recently diagnosed with a UTI about a couple of days ago and started on Macrobid. She has taken only 2 doses of it. UA showed 0 bacteria 0-5 WBC. * Will monitor. * On ceftriaxone which will cover for UTI. 3. ?meningitis * Plan of neck pain on admission. She had also had a fever which peaked at 103 Fahrenheit at home. * LP was attempted in the ED by ED doctor but was unsuccessful. She was started on IV vancomycin and ceftriaxone. Due to her agae, will continue with IV ceftriaxone and ampicillin. * Will need repeat LP by radiology tomorrow. * will give ceftriaxone and vancomycin as well as one dose of ampicillin o/a of her age. * will consult ID. 4. Hypokalemia: Testing was 3.1. Will replace and monitor. 5. chest pain to r/o ACS * she developed chest pain whilst in ED. EKG showed no actue ST changes, though it showed increased QT * initial troponin was negative * cycle troponins.; For stress test tomorrow if troponins remain negative * SL nitroglycerin prn. PO aspirin 81mg daily. * * 6. Atrial fibrillation: rate copntrolled. On amiodarone.; also on coumadin. INR is subtherapeutic at 1.1 7. Hyperlipidemia: on statin. 8. Hypertension: on verapamil DVT prophylaxis; on coumadin. Code Visit Inpatient E&M: [id number] Init Hosp L3
[2019-04-25] MEDS: 0.9% Normal Saline 1,000 ML 125 ML IV (03:03)
--- NOTE | 2019-04-25 05:51 | PCM.RX.CS ---
Consult Pharmacy has been consulted to manage selected antiobiotic: Vancomycin Type of Consult: New start Labs: Sodium 142 mmol/L (136-145) 04/24/19 19:40 Potassium 3.1 mmol/L (3.5-5.1) L 04/24/19 19:40 Chloride 109 mmol/L (98-107) H 04/24/19 19:40 Carbon Dioxide 28.0 mmol/L (21.0-32.0) 04/24/19 19:40 Anion Gap 5 (5-15) 04/24/19 19:40 BUN 21 mg/dL (7-18) H 04/24/19 19:40 Creatinine 1.00 mg/dL (0.55-1.02) 04/24/19 19:40 Est GFR (MDRD) Af Amer 71 mL/min (>60) 04/24/19 19:40 Est GFR (MDRD) Non-Af 59 mL/min (>60) L 04/24/19 19:40 BUN/Creatinine Ratio 21.1 RATIO (10-20) H 04/24/19 19:40 Glucose 95 mg/dL (74-106) 04/24/19 19:40 Microbiology: Microbiology 04/24/19 20:30 Urine, Clean Catch Streptococcus pneumoniae Antigen (M - Final 04/24/19 20:30 Urine, Clean Catch Legionella Antigen - Final 04/25/19 00:20 Mucosa - Nasopharyngeal Influenza Types A,B Direct FA (CARITO) - Final Weight used for dosin.9 kg Estimated Creatinine Clearance: 58.43 Goal Trough: 15-20 mcg/mL Pharmacy Plan for Drug Dosing: Pharmacy Service will continue to monitor and adjust dosing as required. Medications Vancomycin HCl 750 mg/ Sodium (Chloride) 265 mls @ 250 mls/hr IV Q12H EVASN Discontinued Medications Vancomycin HCl 1,250 mg/ (Sodium Chloride) 275 mls @ 250 mls/hr IV X1 ONE Stop: 04/25/19 01:40 Last Admin: 04/25/19 02:00 Dose: Infused Documented by: Follow-Up Labs: Trough Vancomycin Labs to be done on [date and time ordered]: @ 1230
--- NOTE | 2019-04-25 05:55 | EKG12_ITS ---
Test Reason : CP ADMIT Blood Pressure : / mmHG Vent. Rate : 075 BPM Atrial Rate : 075 BPM P-R Int : 170 ms QRS Dur : 088 ms QT Int : 550 ms P-R-T Axes : 066 027 035 degrees QTc Int : 614 ms Normal sinus rhythm Nonspecific T wave abnormality Abnormal ECG Confirmed by ROBBIE ALLEN, PRINCESS ([id number]), business editor AMPARO ROMAN ([id number]) on 04/30/2019 2:07:59 PM Referred By: DR MCDONNELL Confirmed By:PRINCESS AVALOS MD
[2019-04-25 06:00] LABS: Absolute Lymphocyte Count 0.98 X10^3/uL (0.83-4.51); Absolute Neutrophil Count 1.6 X10^3/uL (2.0-7.7); Basophil# 0.01 X10^3/uL; Basophil% 0.3 % (0-1); Eosinophil# 0.04 X10^3/uL; Eosinophils% 1.3 % (0-5); Hematocrit 35.9 % (37-47); Hemoglobin 12.1 g/dL (12.0-15.0); Lymphocyte # 0.98 X10^3/ul (4.0); Lymphocyte % 30.8 % (19-41); Mean Corp Hgb Conc 33.7 g/dL (32-36); Mean Corpuscular Hgb 28.2 pg (27.0-32.0); Mean Corpuscular Volume 83.7 fL (81-99); Mean Platelet Vol. 10.2 fl (6.2-12.0); Monocyte# 0.52 X10^3/uL; Monocyte% 16.4 % (0-10); NRBC Flagged by Analyzer 0 % (0-5); Neutrophil # 1.63 X10^3/uL (2.7-7.7); Neutrophil % 51.2 % (47-70); Platelet Count 130 K/mm3 (150-450); RBC Distribution Width CV 12.3 % (11.6-14.6); RBC Distribution Width SD 37.3 fl (35.1-43.9); Red Blood Count 4.29 M/mm3 (4.2-5.4); White Blood Count 3.2 K/mm3 (4.4-11.0)
[2019-04-25] MEDS: Aspirin E.C. 81 MG Tablet PO (06:12)
[2019-04-25 06:14] LABS: Anion Gap 9 (5-15); BUN 14 mg/dL (7-18); BUN/Creat Ratio 15.9 RATIO (10-20); Calcium,Total 8.1 mg/dL (8.5-10.1); Chloride 104 mmol/L (98-107); Creatinine, Serum 0.88 mg/dL (0.55-1.02); EST Glomerular Filtration Rate 68 mL/min (>60); Est Glom Filt Rate - Afr Amer 82 mL/min (>60); Estimated Creatinine Clearance 57.28 ml/min; Glucose 153 mg/dL (74-106); Potassium 3.7 mmol/L (3.5-5.1); Sodium Level 138 mmol/L (136-145)
[2019-04-25] MEDS: Budesonide Respules 0.5 MG/2 ML AMPUL.NEB. INHALATION ×2 (07:18→20:33)
[2019-04-25] MEDS: Thiamine Hydrochloride 100 MG Tablet PO (12:12)
[2019-04-25] MEDS: Verapamil SR 240 MG Tablet PO (12:12)
[2019-04-25] MEDS: Loratadine 10 MG Tablet PO (12:12)
[2019-04-25] MEDS: Amiodarone 200 MG Tablet PO (12:12)
[2019-04-25] MEDS: Metoprolol Tartrate 25 MG Tablet 12.5 MG PO ×2 (12:12→21:47)
[2019-04-25] MEDS: Pantoprazole Sodium 20 MG Tablet PO (12:13)
--- NOTE | 2019-04-25 14:22 | STRESSREP_ITS ---
Stress Test Report Date: 04-25-2019 Procedure: Pharmacologic stress nuclear imaging study Indications: Chest pain; paroxysmal atrial fibrillation Consent: Per the patient Procedure: The patient underwent pharmacologic (Regadenoson) evaluation with a peak heart rate of 111 beats per minute (73 %predicted maximal heart rate) and a peak blood pressure of 144/70 mmHg. The baseline ECG demonstrated normal sinus rhythm. The peak pharmacologic ECG demonstrated atrial fibrillation with nonspecific ST/T wave abnormality. There were no additional cardiac dysrhythmias pretest, during pharmacologic infusion, or recovery. There was no complaint of chest discomfort during pharmacologic infusion or recovery. The examination was discontinued secondary to completion of protocol. Impression: 1. Pharmacologic (Regadenoson) evaluation 2. Peak pharmacologic ECG with notation of atrial fibrillation with nonspecific ST/T wave abnormality. 3. There were no additional cardiac dysrhythmias pretest, during pharmacologic infusion, or recovery. 4. Nuclear images pending Myocardial perfusion imaging study: Technique: The patient was injected with 12.0 millicuries of technetium 99m Cardiolite and subsequently rest SPECT Cardiolite nuclear imaging was obtained in the horizontal long, vertical long, and short axis views. The patient underwent pharmacologic (Regadenoson) evaluation with a peak heart rate of 111 beats per minute (73 % percent predicted maximal heart rate) and a peak blood pressure of 144/70 mmHg. The patient was injected with 33.6 millicuries of technetium 99m Cardiolite and subsequently stress SPECT Cardiolite nuclear imaging was obtained in the horizontal long, vertical long, and short axis views. A gated Cardiolite study at peak stress was obtained. Interpretation: Rest and stress SPECT Cardiolite nuclear imaging status post realignment, normalization, and attenuation correction demonstrate relative uniform tracer uptake and myocardial perfusion appearing within normal limits. There is end systolic thickening and brightening. The gated Cardiolite study demonstrates myocardial thickening and inward wall motion. The reported LVEF is 60 %. Impression: 1. Rest and stress SPECT Cardiolite nuclear imaging demonstrate relative uniform tracer uptake and myocardial perfusion appearing within normal limits. 2. The gated Cardiolite study reports an LVEF of 60 %. This note was generated with [employer] software. It may contain incorrect words, spelling, and punctuation that were not noted in checking the note before signing.
--- NOTE | 2019-04-25 15:18 | PN_ITS ---
Patient Problems: Active and Suspected Problems (Last Reviewed 03/03/19 @ 10:03 by Kristine Schmidt) Community acquired pneumonia (Acute) Syncope (Acute) Chest pain, unspecified (Acute) Reason for Visit: Fever, 103 Fahrenheit at home for last 2 days. Patient also has URI, sinus congestion, sinus headache and neck pain. It seems he has chronic neck pain. She fell down without significant injury as she sled down on the floor. Vitals/I&O's: Vital Signs Temp Pulse Resp BP Pulse Ox 98.5 F 118 H 18 146/91 H 94 04/25/19 12:08 04/25/19 12:41 04/25/19 12:08 04/25/19 12:08 04/25/19 12:08 Oxygen Flow Rate (L/min) 2 Oxygen Delivery Method Nasal Cannula Weight: 182 lb 12.211 oz Body Mass Index (BMI) 29.5 Intake and Output for Last 24 Hours 04/23/19 04/24/19 04/25/19 23:59 23:59 23:59 Intake Total 1050 / 1050 1118.75 / 1118.75 Balance 1050 / 1050 1118.75 / 1118.75 General: Alert, Oriented x3, Cooperative HEENT: Atraumatic, PERRLA, EOMI, Normocephalic, - - Sinus tenderness present on both maxillary sinus, left more than right. Oral: No Gingival or Mucosal Lesions/ Ulcerations, Dry Mucosa, Ulcerations Present Neck: Supple, No JVD, Negative Carotid Bruits, - - No requisition today. Patient can touch chest with her chin. Has bony spur on the lower cervical spine suggestive of degenerative arthritis of cervical spine Lungs: Clear to auscultation, No rhonchi, No wheeze, No rales, Diminished Cardiovascular: Regular rate, Regular Rhythm, Normal S1, Normal S2, No murmurs Abdomen: Bowel Sounds Present, Soft, Non Tender, Non-Distended Extremities: No edema, Capillary Refill Less than 3 Seconds Skin: No rashes, No breakdown Musculoskeletal: No Tenderness to Palpation of Joints or Extremities, Arthritic Changes Neurological: Cranial nerves II-XII grossly intact, Deep Tendon Reflexes 2+/4 and Symmetrical, Neuro grossly intact, - - No clinical signs suggestive of meningitis including more acuity, but bruzenski signs negative. Chronic numbness and tingling suggestive of peripheral neuropathy Psych/Mental Status: Normal Affect, Appropriate Microbiology Past 72 Hours 04/24/19 20:30 Urine, Clean Catch Streptococcus pneumoniae Antigen (M - Final 04/24/19 20:30 Urine, Clean Catch Legionella Antigen - Final 04/25/19 00:20 Mucosa - Nasopharyngeal Influenza Types A,B Direct FA (CARITO) - Final Laboratory Results 04/24/19 19:40: PT 14.4, INR 1.1 04/24/19 19:40: Sodium 142, Potassium 3.1 L, Chloride 109 H, Carbon Dioxide 28.0, Anion Gap 5, BUN 21 H, Creatinine 1.00, Estim Creat Clear Calc 50.41, Est GFR (MDRD) Af Amer 71, Est GFR (MDRD) Non-Af 59 L, BUN/Creatinine Ratio 21.1 H, Glucose 95, Calcium 9.0, Total Bilirubin 1.20 H, AST 22, ALT 32, Alkaline Phosphatase 118 H, Troponin I < 0.015, Total Protein 7.2, Albumin 3.5, Globulin 3.7, Albumin/Globulin Ratio 0.9 04/24/19 19:40: Lactic Acid 0.7 04/24/19 19:40: WBC 16.7 H, RBC 5.27, Hgb 14.7, Hct 46.3, MCV 87.9, MCH 27.9, MCHC 31.7 L, RDW Std Deviation 42.6, RDW Coeff of Kahlil 13.2, Plt Count 245, MPV 10.2, Immature Gran % (Auto) 0.500, Neut % (Auto) 80.6 H, Lymph % (Auto) 9.7 L, [place] % (Auto) 5.6, Eos % (Auto) 3.4, Baso % (Auto) 0.2, Absolute Neuts (auto) 13.5 H, Absolute Lymphs (auto) 1.61, Nucleated RBC % 0 04/24/19 20:20: Urine Color Yellow, Urine Clarity Clear, Urine pH 5.0, Ur Specific [place] 1.020, Urine Protein 15 H, Urine Glucose (UA) Normal, Urine Ketones Negative, Urine Occult Blood 10 H, Urine Nitrite Negative, Urine Bilirubin Negative, Urine Urobilinogen Normal, Ur Leukocyte Esterase 25 H, Urine RBC 0-5 SEEN, Urine WBC 0-5 SEEN, Ur Squamous Epith Cells 0-5 SEEN, Amorphous Sediment 1+ URATE, Urine Bacteria 0 SEEN, Hyaline Casts 0-5 SEEN, Urine Mucus RARE 04/25/19 02:45: Troponin I < 0.015 04/25/19 05:35: WBC 3.2 L, RBC 4.29, Hgb 12.1, Hct 35.9 L, MCV 83.7, MCH 28.2, MCHC 33.7 D, RDW Std Deviation 37.3, RDW Coeff of Kahlil 12.3, Plt Count 130 L, MPV 10.2, Immature Gran % (Auto) 0.000, Neut % (Auto) 51.2, Lymph % (Auto) 30.8, [place] % (Auto) 16.4 H, Eos % (Auto) 1.3, Baso % (Auto) 0.3, Absolute Neuts (auto) 1.6 L, Absolute Lymphs (auto) 0.98, Nucleated RBC % 0 04/25/19 05:35: Sodium 138, Potassium 3.7, Chloride 104, Carbon Dioxide 25.0, Anion Gap 9, BUN 14, Creatinine 0.88, Estim Creat Clear Calc 57.28, Est GFR (MDRD) Af Amer 82, Est GFR (MDRD) Non-Af 68, BUN/Creatinine Ratio 15.9, Glucose 153 H, Calcium 8.1 L 04/25/19 05:35: Troponin I 0.149 H 04/25/19 08:05: Troponin I < 0.015 Current Medications Acetaminophen (Tylenol) 650 mg PO Q6H PRN PRN PRN Reason: Pain Score 1-5/Temp > 100.7 F Albuterol Sulfate (Ventolin Aerosols) 2.5 mg INHALATION Q4H PRN PRN PRN Reason: SOB &/OR WHEEZING Albuterol Sulfate (Ventolin Aerosols) 2.5 mg INHALATION Q6HWA.RT [facility] Last Admin: 04/25/19 13:39 Dose: 2.5 mg Documented by: Amiodarone HCl (Cordarone) 200 mg PO DAILY [facility] Last Admin: 04/25/19 12:12 Dose: 200 mg Documented by: Aspirin (Ecotrin) 81 mg PO DAILY@0800 [facility] Last Admin: 04/25/19 06:12 Dose: 81 mg Documented by: Atorvastatin Calcium (Lipitor) 40 mg PO QHS [facility] Benzonatate (Tessalon Perle) 200 mg PO TID PRN PRN PRN Reason: COUGH Budesonide (Pulmicort Aerosol) 0.5 mg INHALATION Q12H.RT [facility] Last Admin: 04/25/19 07:18 Dose: 0.5 mg Documented by: Epinephrine HCl () 0.3 mg IM X1 PRN PRN Reason: ALLERGIC REACTION Fluticasone Propionate (Flonase Nasal [place]) 2 spray NASAL DAILY PRN PRN PRN Reason: ALLERGIES Glucagon () 1 mg IM .X1 PRN PRN Reason: Hypoglycemia Sodium Chloride () 1,000 mls @ 125 mls/hr IV .Q8H [facility] Stop: 04/25/19 18:19 Last Infusion: 04/25/19 09:00 Dose: 0 mls/hr Documented by: Sodium Chloride () 250 mls @ 15 mls/hr IV .[id number] PRN PRN Reason: Saline Flush Sodium Chloride () 250 mls @ 15 mls/hr IV .[id number] PRN PRN Reason: Additional IVPB Infusion Dextrose (Dextrose 10%-Water) 250 mls @ 999 mls/hr IV .Q16M PRN; Protocol PRN Reason: HYPOGLYCEMIA Ceftriaxone Sodium 2 gm/ (Sodium Chloride) 50 mls @ 100 mls/hr IV Q24 [facility] Lactobacillus Acidophilus (Acidophilus) 1 tablet PO DAILY [facility] Last Admin: 04/25/19 12:12 Dose: 1 tablet Documented by: Loratadine (Claritin) 10 mg PO DAILY [facility] Last Admin: 04/25/19 12:12 Dose: 10 mg Documented by: Meclizine HCl (Antivert) 25 mg PO Q6H PRN PRN PRN Reason: DIZZINESS Metoprolol Tartrate (Lopressor (Beta Ezio)) 12.5 mg PO BID [facility] Last Admin: 04/25/19 12:12 Dose: 12.5 mg Documented by: Morphine Sulfate () 4 mg IV Q3H PRN PRN PRN Reason: Pain Score 6-10/10 Ondansetron HCl (Zofran Odt) 4 mg PO Q6H PRN PRN PRN Reason: NAUSEA/VOMITING Ondansetron HCl (Zofran) 4 mg IV Q8H PRN PRN PRN Reason: NAUSEA/VOMITING Pantoprazole Sodium (Protonix) 20 mg PO DAILY [facility] Last Admin: 04/25/19 12:13 Dose: 20 mg Documented by: Sodium Chloride () 10 - 40 ml IV UD PRN PRN Reason: SALINE FLUSH Thiamine HCl (Vitamin B1) 100 mg PO DAILY@0800 [facility] Last Admin: 04/25/19 12:12 Dose: 100 mg Documented by: Verapamil HCl (Calan Sr) 240 mg PO DAILY [facility] Last Admin: 04/25/19 12:12 Dose: 240 mg Documented by: Warfarin Sodium (Coumadin (Pbkc)) 2 mg PO DAILY@1700 [facility]; Protocol STROKE Vital Signs/Narrative: Vital Signs Temp Pulse Resp BP Pulse Ox 04/25/19 12:41 118 H 04/25/19 12:12 103 H 04/25/19 12:08 98.5 F 103 H 18 146/91 H 94 Medical Necessity - Tobacco Use Smoking Status: Never smoker Assessment/Plan All Active Problems (Last Reviewed 03/03/19 @ 10:03 by Kristine Schmidt) Pneumonia (Acute) UTI (Acute) Community acquired pneumonia (Acute) Syncope (Acute) Chest pain, unspecified (Acute) Chest pain, unspecified (Resolved) Community acquired bilateral lower lobe pneumonia (Resolved) Respiratory failure with hypoxia (Resolved) Sepsis due to pneumonia (Resolved) Balance problem (Acute) This is 69 y/o with multiple comorbidities admitted with a complaint of fever and chills, sinus headache and congestion/tenderness and cough suggestive of sepsis secondary to acute bronchitis/left lower lobe pneumonia and UTI. She also had chest pain in ER. 1. SIRS (tachypnea and leukocytosis ) with sepsis due to Community acquired pneumonia. Chest x-ray shows small left lower infiltrate. Lactic acid normal. On IV ceftriaxone. Seen by ID. Meningitis ruled out as there is no clinical signs and symptoms of meningitis. Lumbar puncture was attempted unsuccessfully by ER physician. Patient does not want LP. * On IV fluid. Respiratory panel negative. Urinary antigens are negative. Blood cultures x2 are pending. 2. UTI: * Patient states she was recently diagnosed with a UTI about a couple of days ago and started on Macrobid. She has taken only 2 doses of it. UA showed 0 bacteria 0-5 WBC. 3. Hypokalemia: Replaced and corrected. Repeat K3.7. 5. chest pain to r/o ACS * EKG showed no actue ST changes, though it showed increased QT. Serial troponins negative except one 0.149. Patient had nuclear stress test and was negative for acute ischemia. 6. Atrial fibrillation: rate controlled. On amiodarone.; also on coumadin. INR is subtherapeutic at 1.1. Coumadin dose increased from 2 mg to 5 mg daily. Monitor INR daily. Adjust dose of Coumadin accordingly. 7. Hyperlipidemia: on statin. 8. Hypertension: on verapamil DVT prophylaxis; on coumadin. Total time of the visit including total time spent in counseling or coordination of care, (more than 50% of the total time, spent in obtaining medical information from nurses and other ancillary care providers), complete history and coordination of care with ID men's custom hair piece consultant, review of labs and imaging is 30 minutes Code Visit Inpatient E&M: [id number] [facility] L3
--- NOTE | 2019-04-25 16:16 | PCM.HP.ID ---
Problem List (1) UTI Status: Acute Reason for Consult: meningitis Consulted by: Dr. Licona History of Present Illness: The patient is a 69 year old F h/o COPD, presented with progressive fever, aches, not feeling well. Sx started 04/23 with dysuria, urinary frequency, lower back pain, and some urinary incontinence. Went to urgent care, UA checked, started on nitrofurantoin. Took 2 doses, sx continued to worsen. Developed frontal headache, some congestion, and cough. Came to ED, concern for possible meningitis. LP attempted, started on vanc/amp/ceftriaxone. Feeling better today, no neck stiffness. Has had sinus infection in the past. Full ROS performed and neg except as noted above. - Medical History Past Medical History (Chronic Problems): Chronic Problems (Last Reviewed 03/03/19 @ 10:03 by Kristine Schmidt) On amiodarone therapy (Chronic) [facility] current use of anticoagulant (Chronic) Atrial fibrillation (Chronic) Asthma (Chronic) TIA (transient ischemic attack) (Chronic) Atrial fibrillation with rapid ventricular response (Chronic) CVA (cerebral vascular accident) (Chronic) HTN (hypertension) (Chronic) HLD (hyperlipidemia) (Chronic) Headache (Chronic) BMI greater than 30 (Chronic) Migraine (Chronic) GERD (gastroesophageal reflux disease) (Chronic) Asthma exacerbation (Chronic) Allergies/Adverse Reactions: Allergies adhesive tape Allergy (Verified 03/03/19 10:03) Rash propoxyphene HCl [From Darvon] Allergy (Verified 03/03/19 10:03) Rash sulfamethoxazole [From Bactrim] Allergy (Verified 03/03/19 10:03) Shortness of breath trimethoprim [From Bactrim] Allergy (Verified 03/03/19 10:03) Shortness of breath venom-honey bee [bee venom (honey bee)] Allergy (Verified 03/03/19 10:03) Anaphylaxis venom-wasp [wasp venom] Allergy (Verified 03/03/19 10:03) Anaphylaxis prednisone Adverse Reaction (Verified 03/03/19 10:03) Diarrhea anything that stings Allergy (Uncoded 03/03/19 10:03) Anaphylaxis banana peppers Allergy (Uncoded 03/03/19 10:03) Hives FIBERGLASS Allergy (Uncoded 03/03/19 10:03) Shortness of breath Home Medications: Ambulatory Orders Medication Instructions Recorded Epi Pen (for allergic rxn) 0.3 mg IM X1 05/04/13 Loratadine [Claritin] 10 mg PO DAILY 05/04/13 Albuterol Sulfate [Ventolin Hfa] 2 puff IH Q6H PRN PRN 12/26/15 Pantoprazole Sodium [Protonix] 20 mg PO DAILY 12/26/15 CycloSPORINE Ophthalmic [Restasis 1 drp EACH EYE BID 03/28/16 Ophthalmic] Fluticasone/Salmeterol [Advair 1 puff IH BID PRN 03/28/16 100-50 Diskus] Meclizine HCl 25 mg PO Q6H PRN 03/28/16 Atorvastatin Calcium [Lipitor] 40 mg PO DAILY 07/02/18 Fluticasone 0.05% [Flonase Nasal 2 spray NASAL DAILY PRN PRN 07/02/18 [place]] Albuterol Aerosols [Ventolin 2.5 mg INHALATION Q4H PRN PRN 12/04/18 Aerosols] Bifidobacter. Bifidum/B.longum 460 mg PO DAILY 12/04/18 [Florajen Bifidoblend Capsule] amiodarone 200 mg tablet 200 mg PO DAILY #90 tab 12/26/18 metoprolol tartrate 25 mg tablet 12.5 mg PO BID #90 tab 12/26/18 verapamil 240 mg tablet,extended 240 mg PO DAILY #90 tab 12/26/18 release Benzonatate 200 mg PO TID PRN 02/10/19 Ondansetron [Zofran] 4 mg PO Q6H PRN 02/10/19 Thiamine Mononitrate (Vit B1) 100 mg PO DAILY 02/10/19 [Vitamin B-1] Warfarin Sodium 2 mg PO DAILY 02/10/19 Acetaminophen [Tylenol Tablet] 650 mg PO Q6H PRN PRN tab 02/12/19 Nitrofurantoin Monohyd/M-Cryst 100 mg PO BID 04/24/19 [Macrobid 100 mg Capsule] - Social History Tobacco Use: non-smoker Vital Signs Temp Pulse Resp BP Pulse Ox 98.5 F 75 18 146/91 H 94 04/25/19 12:08 04/25/19 14:41 04/25/19 12:08 04/25/19 12:08 04/25/19 12:08 Oxygen Flow Rate (L/min) 2 Oxygen Delivery Method Nasal Cannula Weight: 82.9 kg Body Mass Index (BMI) 29.5 Microbiology Past 72 Hours 04/24/19 20:30 Streptococcus pneumoniae Antigen (M - Final Urine, Clean Catch 04/24/19 20:30 Legionella Antigen - Final Urine, Clean Catch 04/25/19 00:20 Influenza Types A,B Direct FA (CARITO) - Final Mucosa - Nasopharyngeal Laboratory Tests Past 24 Hrs 04/24/19 04/24/19 04/24/19 19:40 19:40 19:40 WBC RBC Hgb Hct MCV MCH MCHC RDW Std Deviation RDW Coeff of Kahlil Plt Count MPV Immature Gran % (Auto) Neut % (Auto) Lymph % (Auto) [place] % (Auto) Eos % (Auto) Baso % (Auto) Absolute Neuts (auto) Absolute Lymphs (auto) Nucleated RBC % PT 14.4 INR 1.1 Sodium 142 Potassium 3.1 L Chloride 109 H Carbon Dioxide 28.0 Anion Gap 5 BUN 21 H Creatinine 1.00 Estim Creat Clear Calc 50.41 Est GFR (MDRD) Af Amer 71 Est GFR (MDRD) Non-Af 59 L BUN/Creatinine Ratio 21.1 H Glucose 95 Lactic Acid 0.7 Calcium 9.0 Total Bilirubin 1.20 H AST 22 ALT 32 Alkaline Phosphatase 118 H Troponin I < 0.015 Total Protein 7.2 Albumin 3.5 Globulin 3.7 Albumin/Globulin Ratio 0.9 Urine Color Urine Clarity Urine pH Ur Specific [place] Urine Protein Urine Glucose (UA) Urine Ketones Urine Occult Blood Urine Nitrite Urine Bilirubin Urine Urobilinogen Ur Leukocyte Esterase Urine RBC Urine WBC Ur Squamous Epith Cells Amorphous Sediment Urine Bacteria Hyaline Casts Urine Mucus 04/24/19 04/24/19 04/25/19 19:40 20:20 02:45 WBC 16.7 H RBC 5.27 Hgb 14.7 Hct 46.3 MCV 87.9 MCH 27.9 MCHC 31.7 L RDW Std Deviation 42.6 RDW Coeff of Kahlil 13.2 Plt Count 245 MPV 10.2 Immature Gran % (Auto) 0.500 Neut % (Auto) 80.6 H Lymph % (Auto) 9.7 L [place] % (Auto) 5.6 Eos % (Auto) 3.4 Baso % (Auto) 0.2 Absolute Neuts (auto) 13.5 H Absolute Lymphs (auto) 1.61 Nucleated RBC % 0 PT INR Sodium Potassium Chloride Carbon Dioxide Anion Gap BUN Creatinine Estim Creat Clear Calc Est GFR (MDRD) Af Amer Est GFR (MDRD) Non-Af BUN/Creatinine Ratio Glucose Lactic Acid Calcium Total Bilirubin AST ALT Alkaline Phosphatase Troponin I < 0.015 Total Protein Albumin Globulin Albumin/Globulin Ratio Urine Color Yellow Urine Clarity Clear Urine pH 5.0 Ur Specific [place] 1.020 Urine Protein 15 H Urine Glucose (UA) Normal Urine Ketones Negative Urine Occult Blood 10 H Urine Nitrite Negative Urine Bilirubin Negative Urine Urobilinogen Normal Ur Leukocyte Esterase 25 H Urine RBC 0-5 SEEN Urine WBC 0-5 SEEN Ur Squamous Epith Cells 0-5 SEEN Amorphous Sediment 1+ URATE Urine Bacteria 0 SEEN Hyaline Casts 0-5 SEEN Urine Mucus RARE 04/25/19 04/25/19 04/25/19 05:35 05:35 05:35 WBC 3.2 L RBC 4.29 Hgb 12.1 Hct 35.9 L MCV 83.7 MCH 28.2 MCHC 33.7 D RDW Std Deviation 37.3 RDW Coeff of Kahlil 12.3 Plt Count 130 L MPV 10.2 Immature Gran % (Auto) 0.000 Neut % (Auto) 51.2 Lymph % (Auto) 30.8 [place] % (Auto) 16.4 H Eos % (Auto) 1.3 Baso % (Auto) 0.3 Absolute Neuts (auto) 1.6 L Absolute Lymphs (auto) 0.98 Nucleated RBC % 0 PT INR Sodium 138 Potassium 3.7 Chloride 104 Carbon Dioxide 25.0 Anion Gap 9 BUN 14 Creatinine 0.88 Estim Creat Clear Calc 57.28 Est GFR (MDRD) Af Amer 82 Est GFR (MDRD) Non-Af 68 BUN/Creatinine Ratio 15.9 Glucose 153 H Lactic Acid Calcium 8.1 L Total Bilirubin AST ALT Alkaline Phosphatase Troponin I 0.149 H Total Protein Albumin Globulin Albumin/Globulin Ratio Urine Color Urine Clarity Urine pH Ur Specific [place] Urine Protein Urine Glucose (UA) Urine Ketones Urine Occult Blood Urine Nitrite Urine Bilirubin Urine Urobilinogen Ur Leukocyte Esterase Urine RBC Urine WBC Ur Squamous Epith Cells Amorphous Sediment Urine Bacteria Hyaline Casts Urine Mucus 04/25/19 08:05 WBC RBC Hgb Hct MCV MCH MCHC RDW Std Deviation RDW Coeff of Kahlil Plt Count MPV Immature Gran % (Auto) Neut % (Auto) Lymph % (Auto) [place] % (Auto) Eos % (Auto) Baso % (Auto) Absolute Neuts (auto) Absolute Lymphs (auto) Nucleated RBC % PT INR Sodium Potassium Chloride Carbon Dioxide Anion Gap BUN Creatinine Estim Creat Clear Calc Est GFR (MDRD) Af Amer Est GFR (MDRD) Non-Af BUN/Creatinine Ratio Glucose Lactic Acid Calcium Total Bilirubin AST ALT Alkaline Phosphatase Troponin I < 0.015 Total Protein Albumin Globulin Albumin/Globulin Ratio Urine Color Urine Clarity Urine pH Ur Specific [place] Urine Protein Urine Glucose (UA) Urine Ketones Urine Occult Blood Urine Nitrite Urine Bilirubin Urine Urobilinogen Ur Leukocyte Esterase Urine RBC Urine WBC Ur Squamous Epith Cells Amorphous Sediment Urine Bacteria Hyaline Casts Urine Mucus - Other Studies Radiology: [] reviewed Other Studies: [] Route of nutrition/ use of supplements: [] Nutritional Intake: [] IV Site: [] Carrillo Catheter: [] - Physical Exam General: Alert, Oriented x3, Cooperative, No apparent distress HEENT: Atraumatic, PERRLA, EOMI Neck: Supple, No Nodes Lungs: Rales, Rhonchi Cardiovascular: Regular rate, Regular Rhythm, No murmurs Abdomen: Soft, Non Tender, Non-Distended Extremities: No edema Skin: No rashes IV Site: Peripheral Musculoskeletal: No Tenderness to Palpation of Joints or Extremities Neurological: Cranial nerves II-XII grossly intact - Assessment/Plan Antibiotics: [] Assessment/Plan: [] Active and Suspected Problems (Last Reviewed 03/03/19 @ 10:03 by Kristine Schmidt) Community acquired pneumonia (Acute) Syncope (Acute) Chest pain, unspecified (Acute) Cont ceftriaxone for CAP/sinusitis coverage. Resp pcr panel pending. Wbc rapidly normalized, lactate normal. UA neg for wbc, but having dysuria and frequency. Mild bilat flank tenderness on exam. Mild sinus tenderness. Ucx pending. Will stop vanc. No evidence of meningitis. Will follow, thank you, d/w Dr. Licona.
[2019-04-25] MEDS: Acetaminophen 325 MG Tablet 650 MG PO (21:47)
[2019-04-25] MEDS: Atorvastatin Calcium 40 MG Tablet PO (21:48)
[2019-04-26] VITALS (10 sets, daily range): BP systolic 138–141; BP diastolic 64–74; PULSE 62–74; RESP 18–20; TEMP 36.6–36.9; O2SAT 93–96
[2019-04-26] MEDS: 0.9% Saline Lock 10 ML Syringe IV (06:08)
[2019-04-26 06:43] LABS: Absolute Lymphocyte Count 1.67 X10^3/uL (0.83-4.51); Absolute Neutrophil Count 2.9 X10^3/uL (2.0-7.7); Basophil# 0.02 X10^3/uL; Basophil% 0.4 % (0-1); Eosinophil# 0.52 X10^3/uL; Eosinophils% 9.3 % (0-5); Hematocrit 39.6 % (37-47); Hemoglobin 12.4 g/dL (12.0-15.0); Lymphocyte # 1.67 X10^3/ul (4.0); Lymphocyte % 29.9 % (19-41); Mean Corp Hgb Conc 31.3 g/dL (32-36); Mean Corpuscular Hgb 28.1 pg (27.0-32.0); Mean Corpuscular Volume 89.8 fL (81-99); Mean Platelet Vol. 10.2 fl (6.2-12.0); Monocyte# 0.48 X10^3/uL; Monocyte% 8.6 % (0-10); NRBC Flagged by Analyzer 0 % (0-5); Neutrophil # 2.87 X10^3/uL (2.7-7.7); Neutrophil % 51.4 % (47-70); Platelet Count 219 K/mm3 (150-450); RBC Distribution Width CV 13.3 % (11.6-14.6); RBC Distribution Width SD 43.8 fl (35.1-43.9); Red Blood Count 4.41 M/mm3 (4.2-5.4); White Blood Count 5.6 K/mm3 (4.4-11.0)
[2019-04-26 06:50] LABS: International Normalized Ratio 1.2
[2019-04-26] MEDS: Albuterol 2.5 MG/3 ML VIAL.NEB. INHALATION (07:03)
[2019-04-26] MEDS: Budesonide Respules 0.5 MG/2 ML AMPUL.NEB. INHALATION (07:03)
[2019-04-26 07:04] LABS: Anion Gap 5 (5-15); BUN 15 mg/dL (7-18); BUN/Creat Ratio 21.8 RATIO (10-20); Calcium,Total 8.1 mg/dL (8.5-10.1); Chloride 110 mmol/L (98-107); Creatinine, Serum 0.69 mg/dL (0.55-1.02); EST Glomerular Filtration Rate 90 mL/min (>60); Est Glom Filt Rate - Afr Amer 109 mL/min (>60); Estimated Creatinine Clearance 50.41 ml/min; Glucose 93 mg/dL (74-106); Potassium 3.3 mmol/L (3.5-5.1); Sodium Level 143 mmol/L (136-145)
[2019-04-26] MEDS: Thiamine Hydrochloride 100 MG Tablet PO (08:03)
[2019-04-26] MEDS: Aspirin E.C. 81 MG Tablet PO (08:03)
[2019-04-26] MEDS: Loratadine 10 MG Tablet PO (09:24)
[2019-04-26] MEDS: Verapamil SR 240 MG Tablet PO (09:24)
[2019-04-26] MEDS: Metoprolol Tartrate 25 MG Tablet 12.5 MG PO (09:24)
[2019-04-26] MEDS: Amiodarone 200 MG Tablet PO (09:24)
[2019-04-26] MEDS: Pantoprazole Sodium 20 MG Tablet PO (09:24)
--- NOTE | 2019-04-26 11:03 | PCM.DC ---
- Discharge Diagnoses Current Active Problems: Current Active and Chronic Problems (Last Reviewed 03/03/19 @ 10:03 by Kristine Schmidt) Community acquired pneumonia (Acute) Syncope (Acute) Chest pain, unspecified (Acute) Headache (Chronic) You will use the following diet at home:: Cardiac Your food should be the consistency of: Regular Your liquids should be the consistency of: Regular/Thin Discharge Activity: May Not Drive Weight Bearing Status: Weight bearing as tolerated Call your doctor if you observe: Fever of 101 or Higher, Numbness or Tingling, Change in Color, Inability to urinate, Inability to have a bowel movement, Using more than one pad per hour, Shortness of breath, Dizziness, Fainting spells, Swelling in the ankles, Chest pain, Prolonged hiccoughing, Increased palpitations (irregular heartbeat), Uncontrolled pain Allergies/Adverse Reactions: Allergies adhesive tape Allergy (Verified 03/03/19 10:03) Rash propoxyphene HCl [From Darvon] Allergy (Verified 03/03/19 10:03) Rash sulfamethoxazole [From Bactrim] Allergy (Verified 03/03/19 10:03) Shortness of breath trimethoprim [From Bactrim] Allergy (Verified 03/03/19 10:03) Shortness of breath venom-honey bee [bee venom (honey bee)] Allergy (Verified 03/03/19 10:03) Anaphylaxis venom-wasp [wasp venom] Allergy (Verified 03/03/19 10:03) Anaphylaxis prednisone Adverse Reaction (Verified 03/03/19 10:03) Diarrhea anything that stings Allergy (Uncoded 03/03/19 10:03) Anaphylaxis banana peppers Allergy (Uncoded 03/03/19 10:03) Hives FIBERGLASS Allergy (Uncoded 03/03/19 10:03) Shortness of breath Medications to take at Discharge Epi Pen (for allergic rxn) 0.3 mg IM X1 05/04/13 Loratadine [Claritin] 10 mg PO DAILY 05/04/13 Albuterol Sulfate [Ventolin Hfa] 2 puff IH Q6H PRN PRN 12/26/15 Pantoprazole Sodium [Protonix] 20 mg PO DAILY 12/26/15 CycloSPORINE Ophthalmic [Restasis Ophthalmic] 1 drp EACH EYE BID 03/28/16 Fluticasone/Salmeterol [Advair 100-50 Diskus] 1 puff IH BID PRN 03/28/16 Meclizine HCl 25 mg PO Q6H PRN 03/28/16 Atorvastatin Calcium [Lipitor] 40 mg PO DAILY 07/02/18 Fluticasone 0.05% [Flonase Nasal [place]] 2 spray NASAL DAILY PRN PRN 07/02/18 Albuterol Aerosols [Ventolin Aerosols] 2.5 mg INHALATION Q4H PRN PRN 12/04/18 Bifidobacter. Bifidum/B.longum [Florajen Bifidoblend Capsule] 460 mg PO DAILY 12/04/18 amiodarone 200 mg tablet 200 mg PO DAILY #90 tab 12/26/18 metoprolol tartrate 25 mg tablet 12.5 mg PO BID #90 tab 12/26/18 verapamil 240 mg tablet,extended release 240 mg PO DAILY #90 tab 12/26/18 Ondansetron [Zofran] 4 mg PO Q6H PRN 02/10/19 Thiamine Mononitrate (Vit B1) [Vitamin B-1] 100 mg PO DAILY 02/10/19 Warfarin Sodium 2 mg PO DAILY 02/10/19 Acetaminophen [Tylenol Tablet] 650 mg PO Q6H PRN PRN tab 02/12/19 Benzonatate 200 mg PO TID PRN #20 cap 04/26/19 Guaifenesin [Mucinex] 1,200 mg PO BID #14 tab.er.12h 04/26/19 Levofloxacin [Levaquin] 500 mg PO DAILY #5 tab 04/26/19 The following prescriptions were given: Benzonatate 200 mg PO TID PRN #20 cap PRN Reason: Cough Transmission Status: Pending to [id number] Levofloxacin [Levaquin] 500 mg PO DAILY #5 tab Transmission Status: Pending to [id number] Guaifenesin [Mucinex] 1,200 mg PO BID #14 tab.er.12h Transmission Status: Pending to [id number] Primary Care Physician: Paul Reynolds MD [Primary Care Provider] - Please follow up with your Primary Care Physician in: in 2 weeks Test Results: Test results from this visit will be discussed in further detail at your follow-up appointment, if applicable. Please Follow Up With: Ted Tee DO When: in 4 weeks
--- NOTE | 2019-04-26 11:05 | DS.PCM_ITS ---
Discharge Date and Diagnosis Date of Admission: 04/25/19 Date of Discharge: 04/26/19 - Primary Discharge Diagnosis Active and Suspected Problems (Last Reviewed 03/03/19 @ 10:03 by Kristine Schmidt) Community acquired pneumonia (Acute) Syncope (Acute) Chest pain, unspecified (Acute) - Secondary Discharge Diagnosis Chronic Problems (Last Reviewed 03/03/19 @ 10:03 by Kristine Schmidt) On amiodarone therapy (Chronic) prison current use of anticoagulant (Chronic) Atrial fibrillation (Chronic) Asthma (Chronic) TIA (transient ischemic attack) (Chronic) Atrial fibrillation with rapid ventricular response (Chronic) CVA (cerebral vascular accident) (Chronic) HTN (hypertension) (Chronic) HLD (hyperlipidemia) (Chronic) Headache (Chronic) BMI greater than 30 (Chronic) Migraine (Chronic) GERD (gastroesophageal reflux disease) (Chronic) Asthma exacerbation (Chronic) Hospital Course and Treatment Operations: None Summary of Care Provided: This is 69 y/o with multiple comorbidities admitted with a complaint of fever and chills, sinus headache and congestion/tenderness and cough suggestive of sepsis secondary to acute bronchitis/left lower lobe pneumonia and UTI. She also had chest pain in ER. 1. SIRS (tachypnea and leukocytosis ) with sepsis due to Community acquired pneumonia. Chest x-ray shows small left lower infiltrate. Lactic acid normal. On IV ceftriaxone. Seen by ID. Meningitis ruled out as there is no clinical signs and symptoms of meningitis. Lumbar puncture was attempted unsuccessfully by ER physician. Patient does not want LP. Discussed with ID. He said no evidence of meningitis. Lactic acid normal. On IV fluid. Respiratory panel was positive of rhinovirus. Urinary antigens are negative. Blood cultures x2 negative for more than 48 hours. Patient was discharged on Levaquin 500 mg daily for 5 more days to complete of total of 8 days. 2. UTI ruled out. * Patient states she was recently diagnosed with a UTI about a couple of days ago and started on Macrobid. She has taken only 2 doses of it. UA showed 0 bacteria 0-5 WBC. * Urine culture is negative. No growth. UTI ruled out 3. Hypokalemia: Replaced and corrected. Repeat K3.7. Repeat K3.3. Potassium was replaced. 5. chest pain to r/o ACS * EKG showed no actue ST changes, though it showed increased QT. Serial troponins negative except one 0.149. Patient had nuclear stress test and was negative for acute ischemia. 6. Atrial fibrillation: rate controlled. On amiodarone.; also on coumadin. INR is subtherapeutic at 1.1. Coumadin dose increased from 2 mg to 5 mg daily. Monitor INR daily. Adjust dose of Coumadin accordingly. 7. Hyperlipidemia: on statin. 8. Hypertension: on verapamil DVT prophylaxis; on coumadin. PFT 12/2018 showed normal pulmonary function studies. Discharge medication reconciliation done. Discharge follow-up instructions completed. Discharge process discussed with the patient and all questions were answered to patient's satisfaction. Discharge medication sent to patient's pharmacy. Total time spent, exact 35 minutes on discharge meds reconciliation, examination, coordination of care with nurses and ancillary staff, review of imaging and blood test and discussion with the patient on follow-up instructions Subjective: Seen and examined. Patient does not have a headache or neck rigidity. Denies fever or chills. Hemodynamically stable. On physical exam General: Alert, Oriented x3, Cooperative HEENT: Atraumatic, PERRLA, EOMI, Normocephalic, mild sinus tenderness present on both maxillary sinus, left more than right. Oral: No Gingival or Mucosal Lesions/ Ulcerations, Dry Mucosa, Ulcerations Present Neck: Supple, No JVD, Negative Carotid Bruits, no neck rigidity. Has bony spur on the lower cervical spine suggestive of degenerative arthritis of cervical spine Lungs: Clear to auscultation, No rhonchi, No wheeze, No rales, Diminished Cardiovascular: Regular rate, Regular Rhythm, Normal S1, Normal S2, No murmurs Abdomen: Bowel Sounds Present, Soft, Non Tender, Non-Distended Extremities: No edema, Capillary Refill Less than 3 Seconds Skin: No rashes, No breakdown Musculoskeletal: No Tenderness to Palpation of Joints or Extremities, Arthritic Changes Neurological: Cranial nerves II-XII grossly intact, Deep Tendon Reflexes 2+/4 and Symmetrical, Neuro grossly intact, - - No clinical signs suggestive of meningitis; brudenski signs negative. Chronic numbness and tingling suggestive of peripheral neuropathy Psych/Mental Status: Normal Affect, Appropriate - Physical Exam Vitals/I&O's: Vital Signs Temp Pulse Resp BP Pulse Ox 98.4 F 74 18 141/74 H 93 04/26/19 09:20 04/26/19 09:24 04/26/19 09:20 04/26/19 09:24 04/26/19 10:56 Oxygen Flow Rate (L/min) 2 Oxygen Delivery Method Nasal Cannula Weight: 182 lb 12.211 oz Body Mass Index (BMI) 29.5 Intake and Output for Last 24 Hours 04/24/19 04/25/19 04/26/19 23:59 23:59 23:59 Intake Total 1050 / 1050 2064. / 2064. 50 / 50 Balance 1050 / 1050 2064. / 50 / 50 Microbiology Past 72 Hours 04/25/19 13:50 Mucosa - Nasopharyngeal Respiratory Panel (PCR) - Final Rhinovirus 04/24/19 20:30 Urine, Clean Catch Streptococcus pneumoniae Antigen (M - Final 04/24/19 20:30 Urine, Clean Catch Legionella Antigen - Final 04/25/19 00:20 Mucosa - Nasopharyngeal Influenza Types A,B Direct FA (CARITO) - Final Laboratory Results 04/26/19 05:55: WBC 5.6, RBC 4.41, Hgb 12.4, Hct 39.6, MCV 89.8 D, MCH 28.1, MCHC 31.3 L D, RDW Std Deviation 43.8, RDW Coeff of Kahlil 13.3, Plt Count 219, MPV 10.2, Immature Gran % (Auto) 0.400, Neut % (Auto) 51.4, Lymph % (Auto) 29.9, [place] % (Auto) 8.6, Eos % (Auto) 9.3 H, Baso % (Auto) 0.4, Absolute Neuts (auto) 2.9, Absolute Lymphs (auto) 1.67, Nucleated RBC % 0 04/26/19 05:55: PT 15.0 H, INR 1.2 04/26/19 05:55: Sodium 143, Potassium 3.3 L, Chloride 110 H, Carbon Dioxide 28.0, Anion Gap 5, BUN 15, Creatinine 0.69, Estim Creat Clear Calc 50.41, Est GFR (MDRD) Af Amer 109, Est GFR (MDRD) Non-Af 90, BUN/Creatinine Ratio 21.8 H, Glucose 93, Calcium 8.1 L Current Medications Acetaminophen (Tylenol) 650 mg PO Q6H PRN PRN PRN Reason: Pain Score 1-5/Temp > 100.7 F Last Admin: 04/25/19 21:47 Dose: 650 mg Documented by: Albuterol Sulfate (Ventolin Aerosols) 2.5 mg INHALATION Q4H PRN PRN PRN Reason: SOB &/OR WHEEZING Albuterol Sulfate (Ventolin Aerosols) 2.5 mg INHALATION Q6HWA.RT [facility] Last Admin: 04/26/19 07:03 Dose: 2.5 mg Documented by: Amiodarone HCl (Cordarone) 200 mg PO DAILY [facility] Last Admin: 04/26/19 09:24 Dose: 200 mg Documented by: Aspirin (Ecotrin) 81 mg PO DAILY@0800 [facility] Last Admin: 04/26/19 08:03 Dose: 81 mg Documented by: Atorvastatin Calcium (Lipitor) 40 mg PO QHS [facility] Last Admin: 04/25/19 21:48 Dose: 40 mg Documented by: Benzonatate (Tessalon Perle) 200 mg PO TID PRN PRN PRN Reason: COUGH Budesonide (Pulmicort Aerosol) 0.5 mg INHALATION Q12H.RT [facility] Last Admin: 04/26/19 07:03 Dose: 0.5 mg Documented by: Epinephrine HCl () 0.3 mg IM X1 PRN PRN Reason: ALLERGIC REACTION Fluticasone Propionate (Flonase Nasal [place]) 2 spray NASAL DAILY PRN PRN PRN Reason: ALLERGIES Glucagon () 1 mg IM .X1 PRN PRN Reason: Hypoglycemia Sodium Chloride () 250 mls @ 15 mls/hr IV .[id number] PRN PRN Reason: Saline Flush Sodium Chloride () 250 mls @ 15 mls/hr IV .[id number] PRN PRN Reason: Additional IVPB Infusion Dextrose (Dextrose 10%-Water) 250 mls @ 999 mls/hr IV .Q16M PRN; Protocol PRN Reason: HYPOGLYCEMIA Ceftriaxone Sodium 2 gm/ (Sodium Chloride) 50 mls @ 100 mls/hr IV Q24 [facility] Last Infusion: 04/26/19 09:52 Dose: Infused Documented by: Lactobacillus Acidophilus (Acidophilus) 1 tablet PO DAILY [facility] Last Admin: 04/26/19 09:24 Dose: 1 tablet Documented by: Loratadine (Claritin) 10 mg PO DAILY [facility] Last Admin: 04/26/19 09:24 Dose: 10 mg Documented by: Meclizine HCl (Antivert) 25 mg PO Q6H PRN PRN PRN Reason: DIZZINESS Metoprolol Tartrate (Lopressor (Beta Ezio)) 12.5 mg PO BID [facility] Last Admin: 04/26/19 09:24 Dose: 12.5 mg Documented by: Morphine Sulfate () 4 mg IV Q3H PRN PRN PRN Reason: Pain Score 6-10/10 Ondansetron HCl (Zofran Odt) 4 mg PO Q6H PRN PRN PRN Reason: NAUSEA/VOMITING Ondansetron HCl (Zofran) 4 mg IV Q8H PRN PRN PRN Reason: NAUSEA/VOMITING Pantoprazole Sodium (Protonix) 20 mg PO DAILY [facility] Last Admin: 04/26/19 09:24 Dose: 20 mg Documented by: Potassium Chloride (K-Dur) 40 meq PO Q3H [facility] Stop: 04/26/19 13:31 Last Admin: 04/26/19 10:48 Dose: 40 meq Documented by: Sodium Chloride () 10 - 40 ml IV UD PRN PRN Reason: SALINE FLUSH Last Admin: 04/26/19 06:08 Dose: 10 ml Documented by: Thiamine HCl (Vitamin B1) 100 mg PO DAILY@0800 [facility] Last Admin: 04/26/19 08:03 Dose: 100 mg Documented by: Verapamil HCl (Calan Sr) 240 mg PO DAILY [facility] Last Admin: 04/26/19 09:24 Dose: 240 mg Documented by: Warfarin Sodium (Coumadin (Pbkc)) 5 mg PO DAILY@1700 [facility] Last Admin: 04/25/19 17:02 Dose: 5 mg Documented by: Discharge Activity: May Not Drive Weight Bearing Status: Weight bearing as tolerated Call your doctor if you observe: Fever of 101 or Higher, Numbness or Tingling, Change in Color, Inability to urinate, Inability to have a bowel movement, Using more than one pad per hour, Shortness of breath, Dizziness, Fainting spells, Swelling in the ankles, Chest pain, Prolonged hiccoughing, Increased palpitations (irregular heartbeat), Uncontrolled pain Home Medications: Medications to take at Discharge Epi Pen (for allergic rxn) 0.3 mg IM X1 05/04/13 Loratadine [Claritin] 10 mg PO DAILY 05/04/13 Albuterol Sulfate [Ventolin Hfa] 2 puff IH Q6H PRN PRN 12/26/15 Pantoprazole Sodium [Protonix] 20 mg PO DAILY 12/26/15 CycloSPORINE Ophthalmic [Restasis Ophthalmic] 1 drp EACH EYE BID 03/28/16 Fluticasone/Salmeterol [Advair 100-50 Diskus] 1 puff IH BID PRN 03/28/16 Meclizine HCl 25 mg PO Q6H PRN 03/28/16 Atorvastatin Calcium [Lipitor] 40 mg PO DAILY 07/02/18 Fluticasone 0.05% [Flonase Nasal [place]] 2 spray NASAL DAILY PRN PRN 07/02/18 Albuterol Aerosols [Ventolin Aerosols] 2.5 mg INHALATION Q4H PRN PRN 12/04/18 Bifidobacter. Bifidum/B.longum [Florajen Bifidoblend Capsule] 460 mg PO DAILY 12/04/18 amiodarone 200 mg tablet 200 mg PO DAILY #90 tab 12/26/18 metoprolol tartrate 25 mg tablet 12.5 mg PO BID #90 tab 12/26/18 verapamil 240 mg tablet,extended release 240 mg PO DAILY #90 tab 12/26/18 Ondansetron [Zofran] 4 mg PO Q6H PRN 02/10/19 Thiamine Mononitrate (Vit B1) [Vitamin B-1] 100 mg PO DAILY 02/10/19 Warfarin Sodium 2 mg PO DAILY 02/10/19 Acetaminophen [Tylenol Tablet] 650 mg PO Q6H PRN PRN tab 02/12/19 Benzonatate 200 mg PO TID PRN #20 cap 04/26/19 Guaifenesin [Mucinex] 1,200 mg PO BID #14 tab.er.12h 04/26/19 Levofloxacin [Levaquin] 500 mg PO DAILY #5 tab 04/26/19 Following Prescrptions Were Given to Patient: Benzonatate 200 mg PO TID PRN #20 cap PRN Reason: Cough Transmission Status: Received by [id number] Levofloxacin [Levaquin] 500 mg PO DAILY #5 tab Transmission Status: Received by [id number] Guaifenesin [Mucinex] 1,200 mg PO BID #14 tab.er.12h Transmission Status: Received by [id number] Primary Care Physician: Paul Reynolds MD [Primary Care Provider] - Please follow up with your Primary Care Physician in: in 2 weeks Please Follow Up With: Ted Tee, When: in 4 weeks Medical Necessity - Tobacco Use Smoking Status: Never smoker Meaningful Use Info Meaningful Use Diagnoses (Choose all that apply): None applicable Code Visit Inpatient E&M: 91755 Disch Hosp
== END 2019-04-26 11:04 | disposition home or self-care (01) ==
LOC: ED 04-25 00:56 → PCU 04-25 01:30
PROVIDERS: Admitting Provider Student in an Organized Health Care Education/Training Program; Emergency Provider Emergency Medicine; PCP Family Medicine; Visit Provider Internal Medicine
DX: A41.9 Sepsis, unspecified organism (principal); J44.0 Chronic obstructive pulmonary disease with (acute) lower respiratory infection; J18.8 Other pneumonia, unspecified organism; R55 Syncope and collapse; I48.20 Chronic atrial fibrillation, unspecified; E78.5 Hyperlipidemia, unspecified; I10 Essential (primary) hypertension; K21.9 Gastro-esophageal reflux disease without esophagitis; G43.909 Migraine, unspecified, not intractable, without status migrainosus; E87.6 Hypokalemia; R94.31 Abnormal electrocardiogram [ECG] [EKG]; J45.909 Unspecified asthma, uncomplicated; Z79.899 Other long term (current) drug therapy; Z79.01 Long term (current) use of anticoagulants
CPT/HCPCS: 62272; 36415; 70450; 71045; 78452; 80048; 80053; 81001; 83605; 84484; 85025; 85610; 87040; 87086; 87449; 87633; 87804; 93005; 93017; 94640; 96361; 96365; 96366; 96367; 96375; 97162; 97802; 99218; 99285; A9500; J7030; J7050; A4216; G0378; J0696; J2785

== ENCOUNTER 2019-05-19 20:41 | Inpatient (IN) | payer MEDICARE, SELFPAY ==
[2019-04-25 02:09] VITALS: BMI 29.5
[2019-05-19 20:42] VITALS: BP 149/73; PULSE 86; RESP 26; TEMP 37.6; O2SAT 94; BMI 28.7
[2019-05-19 20:50] VITALS: BP 178/81; PULSE 87; RESP 22; TEMP 37.6; O2SAT 89; O2SAT 95
--- NOTE | 2019-05-19 21:12 | EKG12_ITS ---
Test Reason : SOB Blood Pressure : / mmHG Vent. Rate : 085 BPM Atrial Rate : 085 BPM P-R Int : 178 ms QRS Dur : 084 ms QT Int : 402 ms P-R-T Axes : 072 032 041 degrees QTc Int : 478 ms Normal sinus rhythm Normal ECG Confirmed by KRISTIN SERRANO MD ([id number]), offline editor SOFIA ARREDONDO ([id number] on 05/22/2019 1:28:44 PM Referred By: SANDRA Confirmed By:KRISTIN SERRANO MD
--- NOTE | 2019-05-19 21:20 | RAD_ITS ---
STUDY: X-RAY CHEST REASON FOR EXAM: Female, 69 years old. sob fever cough and chills TECHNIQUE: Portable chest COMPARISON: 04/24/2019. FINDINGS: There are mild bibasilar pulmonary opacities. There is no demonstrated pleural abnormality. Normal size heart. Normal mediastinum and gagandeep. Normal visualized pulmonary arteries. Normal visualized aortic arch and descending thoracic aorta. Normal visualized thoracic spine. Normal visualized ribs, clavicles, and shoulders. There is no demonstrated abnormality of the visualized soft tissue structures of the upper abdomen. RAD/Chest 1 View (Portable) IMPRESSION: Mild bibasilar pulmonary opacities Electronically Signed: Eliot Napier, at 21:34 EDT Tel , Service support ,
[2019-05-19 21:24] LABS: Absolute Lymphocyte Count 0.97 X10^3/uL (0.83-4.51); Absolute Neutrophil Count 8.4 X10^3/uL (2.0-7.7); Basophil# 0.01 X10^3/uL; Basophil% 0.1 % (0-1); Eosinophil# 0.12 X10^3/uL; Eosinophils% 1.2 % (0-5); Hemoglobin 14.5 g/dL (12.0-15.0); Lymphocyte # 0.97 X10^3/ul (4.0); Mean Corp Hgb Conc 31.5 g/dL (32-36); Mean Corpuscular Hgb 28.4 pg (27.0-32.0); Mean Corpuscular Volume 90.2 fL (81-99); Mean Platelet Vol. 9.9 fl (6.2-12.0); Monocyte# 0.22 X10^3/uL; Monocyte% 2.3 % (0-10); NRBC Flagged by Analyzer 0 % (0-5); Neutrophil # 8.39 X10^3/uL (2.7-7.7); Neutrophil % 86.1 % (47-70); Platelet Count 239 K/mm3 (150-450); RBC Distribution Width CV 13.2 % (11.6-14.6); RBC Distribution Width SD 43.5 fl (35.1-43.9); White Blood Count 9.7 K/mm3 (4.4-11.0)
[2019-05-19] MEDS: Aspirin 81 MG TAB.CHEW 324 MG PO (21:25)
[2019-05-19] MEDS: Ipratropium/Albuterol Sulfate 3 ML AMPUL.NEB INHALATION (21:29)
[2019-05-19 21:30] VITALS: PULSE 98; RESP 26
[2019-05-19 21:30] LABS: International Normalized Ratio 1.1; Prothrombin Time (Protime)PT. 13.6 SECONDS (11.7-14.9)
[2019-05-19 21:37] LABS: Anion Gap 4 (5-15); BUN 17 mg/dL (7-18); BUN/Creat Ratio 19.8 RATIO (10-20); Calcium,Total 8.7 mg/dL (8.5-10.1); Chloride 111 mmol/L (98-107); Creatinine, Serum 0.86 mg/dL (0.55-1.02); EST Glomerular Filtration Rate 70 mL/min (>60); Est Glom Filt Rate - Afr Amer 85 mL/min (>60); Estimated Creatinine Clearance 58.61 ml/min; Glucose 118 mg/dL (74-106); Potassium 3.1 mmol/L (3.5-5.1); Sodium Level 144 mmol/L (136-145)
[2019-05-19] MEDS: Ondansetron 4 MG/2 ML Vial IV (21:54)
[2019-05-19 21:55] VITALS: BP 162/91; PULSE 96; RESP 24; TEMP 37.6; O2SAT 95
[2019-05-19 21:55] LABS: Bacteria 0 SEEN /hpf (None Seen); Mucous, Urine 0 SEEN /hpf (<or=2+); Red Blood Cells-Urine 0 SEEN /hpf (0-5); Squamous Epithelial Cells - UA 0 SEEN /hpf (5-10); White Blood Cells 0 SEEN /hpf (0-5)
[2019-05-19 22:03] LABS: Color, Urine Yellow (Yellow); Glucose, Dipstick Normal (Normal); Ketone-Dipstick Negative (Negative); Leukocyte Esterase-Dipstick Negative /ul (Negative); Nitrite-Dipstick Negative (Negative); Occult Blood-Urine Negative /ul (Negative); Protein-Dipstick Negative (Negative); Urine Bilirubin Dipstick Negative (Negative); Urine Clarity Clear (Clear); Urine Urobilinogen Normal (Normal)
[2019-05-19 22:45] VITALS: BP 142/58; PULSE 94; RESP 28; TEMP 36.7; O2SAT 93
[2019-05-19 22:46] LABS: Lactic Acid 1.2 mmol/L (0.4-1.9)
[2019-05-19 23:02] VITALS: BP 106/63; PULSE 91; RESP 25; TEMP 36.6; O2SAT 93
--- NOTE | 2019-05-19 23:05 | ED.VISSUMM ---
- ER Visit Summary Date of Service: 05/19/19 Chief Complaint: Shortness of breath History of Present Illness: The patient is a 69 F presenting with shortness of breath. She states this started today. She has had temperature up to 99 at home. She has had chills. She has shortness of breath associated with nonproductive cough. She also complains of dysuria and urinary frequency. She has myalgias and overall is not feeling well. She started to take Macrobid that she had left over from previous urinary tract infection today because she felt she may have a urinary tract infection. She has chest pain only when she coughs. 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 No recent travel. Physical Examination: Vitals are stable. Temperature 98.1. Respiratory rate 28. Pulse ox 93% on 2 L HEENT exam is unremarkable. Neck is supple. Lungs are wheezing bilaterally. Heart is regular rate and rhythm. Abdomen is soft nontender nondistended. Extremities are unremarkable. Skin is warm and dry. No focal neurologic deficit. Remainder of exam is unremarkable. Emergency Department Course and Treatment: She was given DuoNeb aerosol. EKG is sinus rate of 85, no acute ischemic changes. CBC, chemistries unremarkable other than potassium 3.1. Patient was given potassium oral replacement. INR 1.1. Urinalysis unremarkable. Troponin is negative. Lactic acid is normal. Influenza negative. Chest x-ray shows mild bibasilar pulmonary opacities. Blood cultures were sent. She was given Rocephin and Zithromax IV. Due to the coronavirus pandemic there is concern for coronavirus. She continues to have wheezing and tachypnea on reexamination. Discussed with hospitalist for admission. Patient remains in isolation precautions. Disposition: Admission Impression: Pneumonia, concern for covid This note was generated with [employer] dictation software. It may contain incorrect words, spelling, and punctuation that were not noted in review of the chart prior to signing ED Disposition - Plan for ED Patient: Referrals: Paul Reynolds MD [Primary Care Provider] -
[2019-05-19] MEDS: Ceftriaxone 1 GM/50 ML BAG IV (23:17)
--- NOTE | 2019-05-19 23:22 | PCM.HP.STD ---
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 (3) Atrial fibrillation Status: Chronic (4) Asthma Status: Chronic (5) HTN (hypertension) Status: Chronic Qualifiers: (6) HLD (hyperlipidemia) Status: Chronic Qualifiers: (7) BMI greater than 30 Status: Chronic (8) Migraine Status: Chronic (9) GERD (gastroesophageal reflux disease) Status: Chronic Qualifiers: History of Present Illness Date of Admission: 05/19/19 Chief Complaint: shortness of breath The patient is a 69 year old male patient with a significant past medical history of atrial fibrillation and is on long-term anticoagulation, asthma, hypertension, hypercholesterolemia, obesity who presents to the emergency room with acute shortness of breath beginning this evening. She was recently discharged from the hospital for pneumonia approximately 1 month ago. She states she has had fever and chills with this associated with a dry cough and shortness of breath. Laboratory studies reveal a white blood cell count of 9.7, hemoglobin 13.5 hematocrit 46, platelets 239, sodium 144, potassium 3.1, chloride 111, bicarb 29, BUN 17, creatinine 0.86, glucose 118, troponin negative, UA within normal limits. Chest x-ray reveals mild bibasilar pulmonary opacities. Patient's condition improved after DuoNeb nebulized treatment along with oxygen therapy. She will be admitted to the floor for rule out of covid 19. She will be covered for bacterial pneumonia as well. Past Medical History Past Medical History (Chronic Problems): Chronic Problems (Last Reviewed 03/03/19 @ 10:03 by Kristine Schmidt) On amiodarone therapy (Chronic) [facility] current use of anticoagulant (Chronic) Atrial fibrillation (Chronic) Asthma (Chronic) TIA (transient ischemic attack) (Chronic) Atrial fibrillation with rapid ventricular response (Chronic) CVA (cerebral vascular accident) (Chronic) HTN (hypertension) (Chronic) HLD (hyperlipidemia) (Chronic) Headache (Chronic) BMI greater than 30 (Chronic) Migraine (Chronic) GERD (gastroesophageal reflux disease) (Chronic) Asthma exacerbation (Chronic) Medical History: Medical History (Last Reviewed 03/03/19 @ 10:03 by Kristine Schmidt) On amiodarone therapy (Chronic) Z79.899 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) Z79.01 Atrial fibrillation (Chronic) I48.91 Asthma (Chronic) J45.909 TIA (transient ischemic attack) (Chronic) G45.9 Chest pain, unspecified (Resolved) R07.9 Community acquired bilateral lower lobe pneumonia (Resolved) J18.1 Respiratory failure with hypoxia (Resolved) J96.91 Atrial fibrillation with rapid ventricular response (Chronic) I48.91 Sepsis due to pneumonia (Resolved) J18.9, A41.9 CVA (cerebral vascular accident) (Chronic) I63.9 HTN (hypertension) (Chronic) I10 HLD (hyperlipidemia) (Chronic) E78.5 Migraine (Chronic) G43.909 GERD (gastroesophageal reflux disease) (Chronic) K21.9 Asthma exacerbation (Chronic) J45.901 Allergies adhesive tape Allergy (Verified 05/19/19 20:44) Rash propoxyphene HCl [From Darvon] Allergy (Verified 05/19/19 20:44) Rash sulfamethoxazole [From Bactrim] Allergy (Verified 05/19/19 20:44) Shortness of breath trimethoprim [From Bactrim] Allergy (Verified 05/19/19 20:44) Shortness of breath venom-honey bee [bee venom (honey bee)] Allergy (Verified 05/19/19 20:44) Anaphylaxis venom-wasp [wasp venom] Allergy (Verified 05/19/19 20:44) Anaphylaxis prednisone Adverse Reaction (Verified 05/19/19 20:44) Diarrhea anything that stings Allergy (Uncoded 05/19/19 20:44) Anaphylaxis banana peppers Allergy (Uncoded 05/19/19 20:44) Hives FIBERGLASS Allergy (Uncoded 05/19/19 20:44) Shortness of breath Home Medications: Ambulatory Orders Medication Instructions Recorded Epi Pen (for allergic rxn) 0.3 mg IM X1 05/04/13 Loratadine [Claritin] 10 mg PO DAILY 05/04/13 Albuterol Sulfate [Ventolin Hfa] 2 puff IH Q6H PRN PRN 12/26/15 Pantoprazole Sodium [Protonix] 20 mg PO DAILY 12/26/15 CycloSPORINE Ophthalmic [Restasis 1 drp EACH EYE BID 03/28/16 Ophthalmic] Fluticasone/Salmeterol [Advair 1 puff IH BID PRN 03/28/16 100-50 Diskus] Meclizine HCl 25 mg PO Q6H PRN 03/28/16 Atorvastatin Calcium [Lipitor] 40 mg PO DAILY 07/02/18 Fluticasone 0.05% [Flonase Nasal 2 spray NASAL DAILY PRN PRN 07/02/18 [place]] Albuterol Aerosols [Ventolin 2.5 mg INHALATION Q4H PRN PRN 12/04/18 Aerosols] Bifidobacter. Bifidum/B.longum 460 mg PO DAILY 12/04/18 [Florajen Bifidoblend Capsule] amiodarone 200 mg tablet 200 mg PO DAILY #90 tab 12/26/18 metoprolol tartrate 25 mg tablet 12.5 mg PO BID #90 tab 12/26/18 verapamil 240 mg tablet,extended 240 mg PO DAILY #90 tab 12/26/18 release Ondansetron [Zofran] 4 mg PO Q6H PRN 02/10/19 Thiamine Mononitrate (Vit B1) 100 mg PO DAILY 02/10/19 [Vitamin B-1] Warfarin Sodium 2 mg PO DAILY 02/10/19 Acetaminophen [Tylenol Tablet] 650 mg PO Q6H PRN PRN tab 02/12/19 Benzonatate 200 mg PO TID PRN #20 cap 04/26/19 Guaifenesin [Mucinex] 1,200 mg PO BID #14 tab.er.12h 04/26/19 Nitrofurantoin Macrocrystals 100 mg PO DAILY 05/19/19 [Macrobid] Surgical History: Surgical History (Last Reviewed 03/03/19 @ 10:03 by Kristine Schmidt) History of cholecystectomy Z90.49 History of total hysterectomy Z90.710 history of mastoid tumor resection Surgical History: - - Cholecystectomy, hysterectomy, right mastoid tumor resection. 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 She denies any known history of heart disease, diabetes or cancer. Review of Systems Constitutional: Reports: Chills, Fever, Weakness. Denies: Weight Change HEENT: Denies: Head Aches, Sinus Congestion, Sinus Drainage Cardiovascular: Denies: Chest Pain, Palpitations Respiratory: Reports: Cough, Shortness of breath at rest, Wheezing. Denies: Sputum production Gastrointestinal: Denies: Abdominal Pain, Nausea, Vomiting Genitourinary: Reports: Dysuria Musculoskeletal: Denies: Joint Pain, Joint Tenderness Skin: Denies: Rash, Wounds Neurological: Denies: Numbness, Tingling, Focal weakness Psychiatric: Denies: Anxiety, Depression, Homicidal Ideations, Suicidal Ideations Hematologic/ Lymphatic: Denies: Easy Bruising, Easy Bleeding VTE Information - Inpt Only VTE Present on Admission: No VTE Mechan Device Prophylaxis: None VTE Pharm Prophylaxis ordered?: Yes Patient Problems: Active and Suspected Problems (Last Reviewed 03/03/19 @ 10:03 by Kristine Schmidt) Suspected 2019 novel coronavirus infection (Acute) - Physical Exam Vitals/I&O's: Vital Signs Temp Pulse Resp BP Pulse Ox 98 F 91 25 H 106/63 93 05/19/19 23:02 05/19/19 23:02 05/19/19 23:02 05/19/19 23:02 05/19/19 23:02 Oxygen Flow Rate (L/min) 2 Oxygen Delivery Method Nasal Cannula Weight: 178 lb Body Mass Index (BMI) 28.7 General: Alert, Oriented x3, Cooperative HEENT: Atraumatic, Normocephalic Neck: Supple Lungs: No rhonchi, Diminished, Tachypneic, Wheezes Cardiovascular: Regular rate, Normal S1, Normal S2, No murmurs Abdomen: Bowel Sounds Present, Soft, Non Tender, Obese Extremities: No edema Skin: No rashes Musculoskeletal: No Tenderness to Palpation of Joints or Extremities Neurological: Neuro grossly intact Psych/Mental Status: Normal Affect Microbiology Past 72 Hours 05/19/19 21:45 Nasal Secretion Influenza Types A,B Direct FA (CARITO) - Final Laboratory Results 05/19/19 20:54: WBC 9.7, RBC 5.10, Hgb 14.5, Hct 46.0, MCV 90.2, MCH 28.4, MCHC 31.5 L, RDW Std Deviation 43.5, RDW Coeff of Kahlil 13.2, Plt Count 239, MPV 9.9, Immature Gran % (Auto) 0.300, Neut % (Auto) 86.1 H, Lymph % (Auto) 10.0 L, [place] % (Auto) 2.3, Eos % (Auto) 1.2, Baso % (Auto) 0.1, Absolute Neuts (auto) 8.4 H, Absolute Lymphs (auto) 0.97, Nucleated RBC % 0 05/19/19 20:54: Sodium 144, Potassium 3.1 L, Chloride 111 H, Carbon Dioxide 29.0, Anion Gap 4 L, BUN 17, Creatinine 0.86, Estim Creat Clear Calc 58.61, Est GFR (MDRD) Af Amer 85, Est GFR (MDRD) Non-Af 70, BUN/Creatinine Ratio 19.8, Glucose 118 H, Calcium 8.7, Troponin I < 0.015 05/19/19 20:54: PT 13.6, INR 1.1 05/19/19 21:50: Urine Color Yellow, Urine Clarity Clear, Urine pH 7.0, Ur Specific [place] 1.010, Urine Protein Negative, Urine Glucose (UA) Normal, Urine Ketones Negative, Urine Occult Blood Negative, Urine Nitrite Negative, Urine Bilirubin Negative, Urine Urobilinogen Normal, Ur Leukocyte Esterase Negative, Urine RBC 0 SEEN, Urine WBC 0 SEEN, Ur Squamous Epith Cells 0 SEEN, Urine Bacteria 0 SEEN, Urine Mucus 0 SEEN 05/19/19 21:54: Lactic Acid 1.2 Current Medications Azithromycin 500 mg/ Dextrose 255 mls @ 250 mls/hr IV X1 ONE Stop: 05/20/19 00:03 Ceftriaxone Sodium (Rocephin) 1 gm in 50 mls @ 100 mls/hr IV X1 ONE Stop: 05/19/19 23:31 Assessment/Plan All Active Problems (Last Reviewed 03/03/19 @ 10:03 by Kristine Schmidt) Pneumonia (Acute) UTI (Acute) Community acquired pneumonia (Acute) Syncope (Acute) Chest pain, unspecified (Acute) Suspected 2019 novel coronavirus infection (Acute) Chest pain, unspecified (Resolved) Community acquired bilateral lower lobe pneumonia (Resolved) Respiratory failure with hypoxia (Resolved) Sepsis due to pneumonia (Resolved) Balance problem (Acute) Chronic Problems (Last Reviewed 03/03/19 @ 10:03 by Kristine Schmidt) On amiodarone therapy (Chronic) 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 Acute shortness of breath?rule out Covid-19?Place patient in isolation in progressive care unit, continue oxygen therapy, DuoNeb INH every 4 hours Rocephin and azithromycin cover would be bacterial pneumonia causes until viral diagnosis is confirmed. Maintain in droplet isolation precautions. May request coronavirus testing in a.m. especially if patient gets worse. 2. Atrial fibrillation continue current medications along with anticoagulation 3. Hypertension continue current medications 4. Hyperlipidemia continue statin 5. GERD continue home medication stable 6. DVT prophylaxis?patient is already anticoagulated Inpatient E&M: 42904 Init Hosp L3
[2019-05-20] VITALS (20 sets, daily range): BP systolic 112–132; BP diastolic 53–71; PULSE 62–98; RESP 15–22; TEMP 36.2–37.7; O2SAT 92–97
[2019-05-20] MEDS: Ipratropium/Albuterol Sulfate 3 ML AMPUL.NEB INHALATION ×6 (01:07→23:17)
[2019-05-20] MEDS: Acetaminophen 325 MG Tablet 650 MG PO ×4 (03:57→23:50)
[2019-05-20 05:42] LABS: Absolute Lymphocyte Count 0.51 X10^3/uL (0.83-4.51); Absolute Neutrophil Count 11.2 X10^3/uL (2.0-7.7); Basophil# 0.03 X10^3/uL; Basophil% 0.2 % (0-1); Eosinophil# 0.13 X10^3/uL; Hematocrit 37.2 % (37-47); Hemoglobin 11.8 g/dL (12.0-15.0); Lymphocyte # 0.51 X10^3/ul (4.0); Lymphocyte % 4.1 % (19-41); Mean Corp Hgb Conc 31.7 g/dL (32-36); Mean Corpuscular Hgb 28.3 pg (27.0-32.0); Mean Corpuscular Volume 89.2 fL (81-99); Mean Platelet Vol. 10.3 fl (6.2-12.0); Monocyte# 0.57 X10^3/uL; Monocyte% 4.5 % (0-10); NRBC Flagged by Analyzer 0 % (0-5); Neutrophil # 11.21 X10^3/uL (2.7-7.7); Neutrophil % 89.2 % (47-70); POSITIVE DIFFERENTIAL YES; Platelet Count 179 K/mm3 (150-450); RBC Distribution Width CV 13.4 % (11.6-14.6); RBC Distribution Width SD 43.6 fl (35.1-43.9); Red Blood Count 4.17 M/mm3 (4.2-5.4); White Blood Count 12.6 K/mm3 (4.4-11.0)
[2019-05-20 05:47] LABS: International Normalized Ratio 1.2; Prothrombin Time (Protime)PT. 14.5 SECONDS (11.7-14.9)
[2019-05-20 05:48] LABS: Differential Indicated SCAN CRITERIA MET
[2019-05-20 06:03] LABS: Differential Comment SCANNED; Reactive Lymphocyte RARE
[2019-05-20 06:09] LABS: ALB/GLOB Ratio 1.1 RATIO (0.9-2.4); AST(SGOT) 34 U/L (15-37); Alanine Aminotransfer ALT/SGPT 33 U/L (13-56); Albumin, Serum 3.2 g/dL (3.2-5.0); Alkaline Phosphatase 95 U/L (45-117); Anion Gap 8 (5-15); BUN 14 mg/dL (7-18); BUN/Creat Ratio 18.6 RATIO (10-20); Calcium,Total 7.9 mg/dL (8.5-10.1); Chloride 111 mmol/L (98-107); Creatinine, Serum 0.75 mg/dL (0.55-1.02); EST Glomerular Filtration Rate 82 mL/min (>60); Est Glom Filt Rate - Afr Amer 99 mL/min (>60); Estimated Creatinine Clearance 50.41 ml/min; Globulin 2.9 g/dL (2.2-4.2); Glucose 117 mg/dL (74-106); Magnesium 1.8 mg/dL (1.6-2.6); Protein, Total 6.1 g/dL (6.4-8.2); Sodium Level 143 mmol/L (136-145)
--- NOTE | 2019-05-20 10:15 | PN_ITS ---
Patient Problems: Active and Suspected Problems (Last Updated 05/20/19 @ 08:[address] José Luis Gardner MD) Suspected 2019 novel coronavirus infection (Acute) Subjective: Chief complaint: Follow-up after admission for probable community-acquired pneumonia, suspected COVID-19 infection and asthma exacerbation. Patient seen and examined. No acute events overnight. She is still complaining of dry cough and wheezing, shortness of breath minimally improved. She has been having spikes of low-grade fever. Pulse ox is maintained at 93% on 2 L. Other vital signs are stable. - Physical Exam Vitals/I&O's: Vital Signs Temp Pulse Resp BP Pulse Ox 100 F H 79 22 H 125/64 H 93 05/20/19 03:45 05/20/19 07:40 05/20/19 07:03 05/20/19 03:45 05/20/19 07:03 Oxygen Flow Rate (L/min) 2 Oxygen Delivery Method Nasal Cannula Weight: 186 lb 1.122 oz Body Mass Index (BMI) 30.0 Intake and Output for Last 24 Hours 05/18/19 05/19/19 05/20/19 23:59 23:59 23:59 Intake Total 50 / 50 355 / 355 Balance 50 / 50 355 / 355 General: Alert, Oriented x3, Cooperative, - - Minimally short of breath. HEENT: Atraumatic, PERRLA, EOMI, Normocephalic Oral: Moist Mucosa, No Gingival or Mucosal Lesions/ Ulcerations Neck: Supple, No JVD, Negative Carotid Bruits, Trachea Midline, Thyroid Normal Size and Texture Lungs: No rales, Diminished, Rhonchi, Short of Breath, Wheezes, - - Diminished breath sounds bilateral, bilateral expiratory wheezes, scattered rhonchi. Cardiovascular: Normal S1, Normal S2, PMI Normal, Irregular Rate Abdomen: Bowel Sounds Present, Soft, Non Tender, Non-Distended, No Hepato- splenomegaly Extremities: No clubbing, No cyanosis, No edema Skin: No rashes, No breakdown Lymphatic: No Cervical, Supraclavicular, or Inguinal Adenopathy Neurological: Cranial nerves II-XII grossly intact, Neuro grossly intact Psych/Mental Status: Normal Affect, Appropriate, Alert and oriented to time, place, person, mood and affect Microbiology Past 72 Hours 05/20/19 01:15 Mucosa - Nose Respiratory Panel (PCR) - Final 05/19/19 21:45 Nasal Secretion Influenza Types A,B Direct FA (CARITO) - Final Laboratory Results 05/19/19 20:54: WBC 9.7, RBC 5.10, Hgb 14.5, Hct 46.0, MCV 90.2, MCH 28.4, MCHC 31.5 L, RDW Std Deviation 43.5, RDW Coeff of Kahlil 13.2, Plt Count 239, MPV 9.9, Immature Gran % (Auto) 0.300, Neut % (Auto) 86.1 H, Lymph % (Auto) 10.0 L, [place] % (Auto) 2.3, Eos % (Auto) 1.2, Baso % (Auto) 0.1, Absolute Neuts (auto) 8.4 H, Absolute Lymphs (auto) 0.97, Nucleated RBC % 0 05/19/19 20:54: Sodium 144, Potassium 3.1 L, Chloride 111 H, Carbon Dioxide 29.0, Anion Gap 4 L, BUN 17, Creatinine 0.86, Estim Creat Clear Calc 58.61, Est GFR (MDRD) Af Amer 85, Est GFR (MDRD) Non-Af 70, BUN/Creatinine Ratio 19.8, Glucose 118 H, Calcium 8.7, Troponin I < 0.015 05/19/19 20:54: PT 13.6, INR 1.1 05/19/19 21:50: Urine Color Yellow, Urine Clarity Clear, Urine pH 7.0, Ur Specific [place] 1.010, Urine Protein Negative, Urine Glucose (UA) Normal, Urine Ketones Negative, Urine Occult Blood Negative, Urine Nitrite Negative, Urine Bilirubin Negative, Urine Urobilinogen Normal, Ur Leukocyte Esterase Negative, Urine RBC 0 SEEN, Urine WBC 0 SEEN, Ur Squamous Epith Cells 0 SEEN, Urine Bacteria 0 SEEN, Urine Mucus 0 SEEN 05/19/19 21:54: Lactic Acid 1.2 05/20/19 05:08: WBC 12.6 H, RBC 4.17 L, Hgb 11.8 L, Hct 37.2, MCV 89.2, MCH 28.3, MCHC 31.7 L, RDW Std Deviation 43.6, RDW Coeff of Kahlil 13.4, Plt Count 179, MPV 10.3, Immature Gran % (Auto) 1.000 H, Neut % (Auto) 89.2 H, Lymph % (Auto) 4.1 L, [place] % (Auto) 4.5, Eos % (Auto) 1.0, Baso % (Auto) 0.2, Absolute Neuts (auto) 11.2 H, Absolute Lymphs (auto) 0.51 L, Nucleated RBC % 0, Differential Comment SCANNED, Reactive Lymphocytes RARE 05/20/19 05:08: PT 14.5, INR 1.2 05/20/19 05:08: Sodium 143, Potassium 4.0, Chloride 111 H, Carbon Dioxide 24.0, Anion Gap 8, BUN 14, Creatinine 0.75, Estim Creat Clear Calc 50.41, Est GFR (MDRD) Af Amer 99, Est GFR (MDRD) Non-Af 82, BUN/Creatinine Ratio 18.6, Glucose 117 H, Calcium 7.9 L, Phosphorus 3.0, Magnesium 1.8, Total Bilirubin 0.60, AST 34, ALT 33, Alkaline Phosphatase 95, Total Protein 6.1 L, Albumin 3.2, Globulin 2.9, Albumin/Globulin Ratio 1.1 Current Medications Acetaminophen (Tylenol) 650 mg PO Q6H PRN PRN PRN Reason: Pain Score 1-10/Temp > 100.7 F Last Admin: 05/20/19 03:57 Dose: 650 mg Documented by: Albuterol Sulfate (Ventolin Aerosols) 2.5 mg INHALATION Q4H PRN PRN PRN Reason: Shortness of breath, wheezing Albuterol/Ipratropium (Duoneb) 3 ml INHALATION Q4H.RT PENDING SALE TO [facility] Last Admin: 05/20/19 07:03 Dose: 3 ml Documented by: Amiodarone HCl (Cordarone) 200 mg PO DAILY PENDING SALE TO [facility] Artificial Tears (Tears Naturale, Artificial Tears) 1 - 2 drop EACH EYE Q2H PRN PRN PRN Reason: DRY EYES Atorvastatin Calcium (Lipitor) 40 mg PO DAILY@2200 PENDING SALE TO [facility] Benzonatate (Tessalon Perle) 200 mg PO TID PRN PRN PRN Reason: COUGH Guaifenesin (Mucinex) 1,200 mg PO BID PENDING SALE TO [facility] Azithromycin 500 mg/ Dextrose 255 mls @ 250 mls/hr IV Q24@2200 PENDING SALE TO [facility] Ceftriaxone Sodium (Rocephin) 1 gm in 50 mls @ 100 mls/hr IV Q24@2200 PENDING SALE TO [facility] Sodium Chloride () 250 mls @ 15 mls/hr IV .[id number] PRN PRN Reason: Saline Flush Sodium Chloride () 250 mls @ 15 mls/hr IV .[id number] PRN PRN Reason: Additional IVPB Infusion Lactobacillus Acidophilus (Acidophilus) 1 tablet PO DAILY PENDING SALE TO [facility] Loratadine (Claritin) 10 mg PO DAILY PENDING SALE TO [facility] Meclizine HCl (Antivert) 25 mg PO Q6H PRN PRN PRN Reason: DIZZINESS Methylprednisolone (Solu-Medrol) 40 mg IV Q12 PENDING SALE TO [facility] Metoprolol Tartrate (Lopressor (Beta Ezio)) 12.5 mg PO BID [facility] Ondansetron HCl (Zofran Odt) 4 mg PO Q6H PRN PRN PRN Reason: NAUSEA/VOMITING Ondansetron HCl (Zofran) 4 mg IV Q8H PRN PRN PRN Reason: NAUSEA/VOMITING Pantoprazole Sodium (Protonix) 20 mg PO DAILY PENDING SALE TO [facility] Sodium Chloride () 10 - 40 ml IV UD PRN PRN Reason: SALINE FLUSH Thiamine HCl (Vitamin B1) 100 mg PO DAILY PENDING SALE TO [facility] Verapamil HCl (Calan Sr) 240 mg PO DAILY [facility] Warfarin Sodium (Coumadin (Pbkc)) 2 mg PO SuMoTuWeFrSa@1700 [facility]ANS; Protocol Warfarin Sodium (Coumadin (Pbkc)) 4 mg PO Th@1700 [facility]ANS; Protocol Medical Necessity - Tobacco Use Smoking Status: Never smoker Assessment/Plan All Active Problems (Last Updated 05/20/19 @ 08:[address] José Luis Gardner MD) Community acquired pneumonia (Acute) Suspected 2019 novel coronavirus infection (Acute) This is a 69 years old female patient presented to the emergency room because of shortness of breath, nonproductive cough, wheezing and subjective fever, found to have questionable basilar infiltrate on chest x-ray and she was admitted as a case of probable community-acquired pneumonia, suspected coronavirus infection as well as asthma exacerbation. #1 probable community-acquired pneumonia: Chest x-ray reviewed, revealed bilateral basilar probably atelectasis, no significant opacities. Viral pneumonia cannot be ruled out. There is a concern of COVID-19 infection. She is on IV Rocephin and Zithromax as well as bronchodilators. She has been having spikes of low-grade fever. Nasal swab for influenza a and B was negative. Respiratory panel for viruses were negative. Blood cultures pending. Infectious disease consulted. Plan to continue same treatment, patient will probably need testing for COVID-19. #2 asthma exacerbation: Based on symptoms of shortness of breath, wheezing and hypoxia. This would likely be triggered by viral infection either pneumonia or URTI. Plan: Start IV steroids, continue DuoNeb every 4 hours, start albuterol PRN. #3 chronic atrial fibrillation: Rate is controlled, continue amiodarone and metoprolol for rate control, continue Coumadin for anticoagulation. INR subtherapeutic. #4 hypertension: Blood pressure stable, continue metoprolol and verapamil. #5 hyperlipidemia: Continue statins. #6 GERD: Continue PPI. #7 DVT prophylaxis: On Coumadin, INR subtherapeutic. This note was generated with [employer] dictation software. It may contain incorrect words, spelling, and punctuation that were not noted in checking the note before signing. Inpatient E&M: 21464 Subs Hosp L2
[2019-05-20] MEDS: Thiamine Hydrochloride 100 MG Tablet PO (10:27)
[2019-05-20] MEDS: guaiFENesin 1,200 MG Tablet 1200 MG PO ×2 (10:27→21:38)
[2019-05-20] MEDS: Amiodarone 200 MG Tablet PO (10:27)
[2019-05-20] MEDS: Verapamil SR 240 MG Tablet PO (10:27)
[2019-05-20] MEDS: Pantoprazole Sodium 20 MG Tablet PO (10:27)
[2019-05-20] MEDS: Metoprolol Tartrate 25 MG Tablet 12.5 MG PO ×2 (10:28→21:38)
[2019-05-20] MEDS: Benzonatate 100 MG Capsule 200 MG PO ×2 (10:29→23:50)
[2019-05-20] MEDS: Loratadine 10 MG Tablet PO (10:31)
[2019-05-20] MEDS: 0.9% Saline Lock 10 ML Syringe IV ×2 (10:32→21:37)
--- NOTE | 2019-05-20 10:34 | PCM.HP.ID ---
Problem List (1) Suspected 2019 novel coronavirus infection Status: Acute Reason for Consult: fever Consulted by: Dr. Gardner History of Present Illness: The patient is a 69 year old F with h/o stroke, htn, presented with one day history of fever, chills, aches, headache, dry cough, and dyspnea. No sick contacts, no travel, no large groups of people. Had some recent dysuria, now resolved. No abd pain, no n/v/d. Came to ED, admitted on azithro and single dose ceftriaxone. Not feeling any better this AM. Full ROS performed and neg except as noted above. - Medical History Past Medical History (Chronic Problems): Chronic Problems (Last Updated 05/20/19 @ 10:[address] 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) Atrial fibrillation (Chronic) Asthma (Chronic) TIA (transient ischemic attack) (Chronic) CVA (cerebral vascular accident) (Chronic) HTN (hypertension) (Chronic) HLD (hyperlipidemia) (Chronic) BMI greater than 30 (Chronic) Migraine (Chronic) GERD (gastroesophageal reflux disease) (Chronic) Allergies/Adverse Reactions: Allergies adhesive tape Allergy (Verified 05/19/19 20:44) Rash propoxyphene HCl [From Darvon] Allergy (Verified 05/19/19 20:44) Rash sulfamethoxazole [From Bactrim] Allergy (Verified 05/19/19 20:44) Shortness of breath trimethoprim [From Bactrim] Allergy (Verified 05/19/19 20:44) Shortness of breath venom-honey bee [bee venom (honey bee)] Allergy (Verified 05/19/19 20:44) Anaphylaxis venom-wasp [wasp venom] Allergy (Verified 05/19/19 20:44) Anaphylaxis prednisone Adverse Reaction (Verified 05/19/19 20:44) Diarrhea anything that stings Allergy (Uncoded 05/19/19 20:44) Anaphylaxis banana peppers Allergy (Uncoded 05/19/19 20:44) Hives FIBERGLASS Allergy (Uncoded 05/19/19 20:44) Shortness of breath Home Medications: Ambulatory Orders Medication Instructions Recorded Epi Pen (for allergic rxn) 0.3 mg IM X1 05/04/13 Loratadine [Claritin] 10 mg PO DAILY 05/04/13 Albuterol Sulfate [Ventolin Hfa] 2 puff IH Q6H PRN PRN 12/26/15 Pantoprazole Sodium [Protonix] 20 mg PO DAILY 12/26/15 CycloSPORINE Ophthalmic [Restasis 1 drp EACH EYE BID 03/28/16 Ophthalmic] Fluticasone/Salmeterol [Advair 1 puff IH BID PRN 03/28/16 100-50 Diskus] Meclizine HCl 25 mg PO Q6H PRN 03/28/16 Atorvastatin Calcium [Lipitor] 40 mg PO DAILY 07/02/18 Fluticasone 0.05% [Flonase Nasal 2 spray NASAL DAILY PRN PRN 07/02/18 Melvin] Albuterol Aerosols [Ventolin 2.5 mg INHALATION Q4H PRN PRN 12/04/18 Aerosols] Bifidobacter. Bifidum/B.longum 460 mg PO DAILY 12/04/18 [Florajen Bifidoblend Capsule] amiodarone 200 mg tablet 200 mg PO DAILY #90 tab 12/26/18 metoprolol tartrate 25 mg tablet 12.5 mg PO BID #90 tab 12/26/18 verapamil 240 mg tablet,extended 240 mg PO DAILY #90 tab 12/26/18 release Ondansetron [Zofran] 4 mg PO Q6H PRN 02/10/19 Thiamine Mononitrate (Vit B1) 100 mg PO DAILY 02/10/19 [Vitamin B-1] Warfarin Sodium 2 mg PO DAILY 02/10/19 Acetaminophen [Tylenol Tablet] 650 mg PO Q6H PRN PRN tab 02/12/19 Benzonatate 200 mg PO TID PRN #20 cap 04/26/19 Guaifenesin [Mucinex] 1,200 mg PO BID #14 tab.er.12h 04/26/19 Nitrofurantoin Macrocrystals 100 mg PO DAILY 05/19/19 [Macrobid] - Social History Tobacco Use: non-smoker Vital Signs Temp Pulse Resp BP Pulse Ox 98.7 F 87 15 118/57 L 94 05/20/19 10:24 05/20/19 10:28 05/20/19 10:24 05/20/19 10:28 05/20/19 10:24 Oxygen Flow Rate (L/min) 2 Oxygen Delivery Method Nasal Cannula Weight: 84.4 kg Body Mass Index (BMI) 30.0 Microbiology Past 72 Hours 05/20/19 01:15 Respiratory Panel (PCR) - Final Mucosa - Nose 05/19/19 21:45 Influenza Types A,B Direct FA (CARITO) - Final Nasal Secretion Laboratory Tests Past 24 Hrs 05/19/19 05/19/19 05/19/19 20:54 20:54 20:54 WBC 9.7 RBC 5.10 Hgb 14.5 Hct 46.0 MCV 90.2 MCH 28.4 MCHC 31.5 L RDW Std Deviation 43.5 RDW Coeff of Kahlil 13.2 Plt Count 239 MPV 9.9 Immature Gran % (Auto) 0.300 Neut % (Auto) 86.1 H Lymph % (Auto) 10.0 L [place] % (Auto) 2.3 Eos % (Auto) 1.2 Baso % (Auto) 0.1 Absolute Neuts (auto) 8.4 H Absolute Lymphs (auto) 0.97 Nucleated RBC % 0 Differential Comment Reactive Lymphocytes PT 13.6 INR 1.1 Sodium 144 Potassium 3.1 L Chloride 111 H Carbon Dioxide 29.0 Anion Gap 4 L BUN 17 Creatinine 0.86 Estim Creat Clear Calc 58.61 Est GFR (MDRD) Af Amer 85 Est GFR (MDRD) Non-Af 70 BUN/Creatinine Ratio 19.8 Glucose 118 H Lactic Acid Calcium 8.7 Phosphorus Magnesium Total Bilirubin AST ALT Alkaline Phosphatase Troponin I < 0.015 Total Protein Albumin Globulin Albumin/Globulin Ratio Urine Color Urine Clarity Urine pH Ur Specific [place] Urine Protein Urine Glucose (UA) Urine Ketones Urine Occult Blood Urine Nitrite Urine Bilirubin Urine Urobilinogen Ur Leukocyte Esterase Urine RBC Urine WBC Ur Squamous Epith Cells Urine Bacteria Urine Mucus 05/19/19 05/19/19 05/20/19 21:50 21:54 05:08 WBC 12.6 H RBC 4.17 L Hgb 11.8 L Hct 37.2 MCV 89.2 MCH 28.3 MCHC 31.7 L RDW Std Deviation 43.6 RDW Coeff of Kahlil 13.4 Plt Count 179 MPV 10.3 Immature Gran % (Auto) 1.000 H Neut % (Auto) 89.2 H Lymph % (Auto) 4.1 L [place] % (Auto) 4.5 Eos % (Auto) 1.0 Baso % (Auto) 0.2 Absolute Neuts (auto) 11.2 H Absolute Lymphs (auto) 0.51 L Nucleated RBC % 0 Differential Comment SCANNED Reactive Lymphocytes RARE PT INR Sodium Potassium Chloride Carbon Dioxide Anion Gap BUN Creatinine Estim Creat Clear Calc Est GFR (MDRD) Af Amer Est GFR (MDRD) Non-Af BUN/Creatinine Ratio Glucose Lactic Acid 1.2 Calcium Phosphorus Magnesium Total Bilirubin AST ALT Alkaline Phosphatase Troponin I Total Protein Albumin Globulin Albumin/Globulin Ratio Urine Color Yellow Urine Clarity Clear Urine pH 7.0 Ur Specific [place] 1.010 Urine Protein Negative Urine Glucose (UA) Normal Urine Ketones Negative Urine Occult Blood Negative Urine Nitrite Negative Urine Bilirubin Negative Urine Urobilinogen Normal Ur Leukocyte Esterase Negative Urine RBC 0 SEEN Urine WBC 0 SEEN Ur Squamous Epith Cells 0 SEEN Urine Bacteria 0 SEEN Urine Mucus 0 SEEN 05/20/19 05/20/19 05:08 05:08 WBC RBC Hgb Hct MCV MCH MCHC RDW Std Deviation RDW Coeff of Kahlil Plt Count MPV Immature Gran % (Auto) Neut % (Auto) Lymph % (Auto) [place] % (Auto) Eos % (Auto) Baso % (Auto) Absolute Neuts (auto) Absolute Lymphs (auto) Nucleated RBC % Differential Comment Reactive Lymphocytes PT 14.5 INR 1.2 Sodium 143 Potassium 4.0 Chloride 111 H Carbon Dioxide 24.0 Anion Gap 8 BUN 14 Creatinine 0.75 Estim Creat Clear Calc 50.41 Est GFR (MDRD) Af Amer 99 Est GFR (MDRD) Non-Af 82 BUN/Creatinine Ratio 18.6 Glucose 117 H Lactic Acid Calcium 7.9 L Phosphorus 3.0 Magnesium 1.8 Total Bilirubin 0.60 AST 34 ALT 33 Alkaline Phosphatase 95 Troponin I Total Protein 6.1 L Albumin 3.2 Globulin 2.9 Albumin/Globulin Ratio 1.1 Urine Color Urine Clarity Urine pH Ur Specific [place] Urine Protein Urine Glucose (UA) Urine Ketones Urine Occult Blood Urine Nitrite Urine Bilirubin Urine Urobilinogen Ur Leukocyte Esterase Urine RBC Urine WBC Ur Squamous Epith Cells Urine Bacteria Urine Mucus - Other Studies Radiology: [] reviewed Other Studies: [] Route of nutrition/ use of supplements: [] Nutritional Intake: [] IV Site: [] Carrillo Catheter: [] - Physical Exam General: Alert, Oriented x3, Cooperative, - - ill appearing HEENT: Atraumatic, PERRLA, EOMI Neck: Supple, No Nodes Lungs: Diminished, Wheezes Cardiovascular: Regular rate, Regular Rhythm Abdomen: Soft, Non Tender, Non-Distended Extremities: No edema Skin: No rashes IV Site: Peripheral, without redness Musculoskeletal: No Tenderness to Palpation of Joints or Extremities Neurological: Cranial nerves II-XII grossly intact - Assessment/Plan Antibiotics: [] Assessment/Plan: [] Active and Suspected Problems (Last Updated 05/20/19 @ 10:[address] José Luis Gardner MD) Suspected 2019 novel coronavirus infection (Acute) Acute onset fever, cough, dyspnea, aches. H/o asthma. CXR with bilat infiltrates, cbc shows leukopenia. Other viral studies and cxs neg so far. Recommend COVID testing, will fill out PUI form. On marilou dawson to continue for now. Will follow, d/w primary team, thank you.
--- NOTE | 2019-05-20 12:30 | CASEMGMT ---
Attempted x2 to reach pt via phone for CM assessment and message states pt is not available at this time. Will attempt again later. Claire CHEATHAM to be notified. Asha CHEATHAM CM
[2019-05-20] MEDS: BENZOCAINE/MENTHOL 1 LOZENGE MUCOUS MEM (12:55)
--- NOTE | 2019-05-20 13:11 | CASEMGMT ---
CHAPARRITA LEONG assessment: Phone interview with patient for initial transition planning/care coordination assessment. CHAPARRITA LEONG introduced self and role at [facility], pt voices understanding and consents to assessment at this time. Pt is A/Ox4 at this time and answers all questions appropriately at this time. Care providers, pharmacy, and demographics verified at this time. Presentation: Sudden increased SOB, cough, chills and UTI sx's Admitting dx: Acute SOB, r/o novel PCP: Rodolfo Specialists: Shawanda, pod for foot drop; niles Tobar-pt states needs knee surgery 'once all this is done.' Preferred Pharmacy: [facility] Insurance: [employer] Prescription Benefit: [employer] Living Will/HPOA: Pt has HPOA and it is on file at [facility] at this time. Pt states does not have LW at this time. Pt states daughter, Anne-Marie Rebollar, is HPOA. LNOK: Anne-Marie Rebollar, daughter; Yoel Bailey, son Living Arrangements: Pt states lives alone in 2 story home with bedroom/bathroom on 2nd floor and laundry in basement. Pt states family is installing walk in shower in bathroom and 2nd railing on stairs to 2nd floor. Pt states is normally independent with ADL's. Transportation: Pt states drives self and states no transportation concerns at this time. DME/HHC: Pt states has a cane, nebulizer, brace for foot, and 2 knee braces. Pt states no hx of HHC or SNF in the past. Pt states no concerns with going home at time of discharge. 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 Pt states does not smoke or drink ETOH. Pt states no further concerns/needs at this time. CM to follow for any further discharge planning/needs. Advised pt to ask for CM if any further questions/concerns/needs arise, voices understanding. Pt Goal: Home Plan: [place] CHAPARRITA LEONG
[2019-05-20] MEDS: Ceftriaxone 1 GM/50 ML BAG IV (21:38)
[2019-05-20] MEDS: Atorvastatin Calcium 40 MG Tablet PO (21:38)
[2019-05-21] VITALS (18 sets, daily range): BP systolic 113–140; BP diastolic 53–70; PULSE 67–100; RESP 14–21; TEMP 36.2–36.8; O2SAT 92–94
[2019-05-21] MEDS: Ipratropium/Albuterol Sulfate 3 ML AMPUL.NEB INHALATION ×5 (07:16→22:55)
--- NOTE | 2019-05-21 07:41 | PCA ---
Left a message at [facility] letting them know patient was admitted and wouldn't make it to her apt today with Erum Chacon.
--- NOTE | 2019-05-21 08:28 | PCM.PROGNOTE ---
Patient Problems: Active and Suspected Problems (Last Updated 05/20/19 @ 10:[address] José Luis Gardner MD) Suspected 2019 novel coronavirus infection (Acute) Subjective: Chief complaint: Follow-up after admission for probable community-acquired pneumonia, suspected COVID-19 infection and asthma exacerbation. Patient seen and examined. No acute events overnight. Today, she is feeling better, shortness of breath and wheezing improved but still there. Cough is also improving. She remains on 2 L of oxygen. Other vital signs are stable. - Physical Exam Vitals/I&O's: Vital Signs Temp Pulse Resp BP Pulse Ox 97.1 F L 80 17 113/70 93 05/21/19 05:14 05/21/19 06:56 05/21/19 05:14 05/21/19 05:14 05/21/19 05:14 Oxygen Flow Rate (L/min) 2 Oxygen Delivery Method Nasal Cannula Weight: 186 lb 1.122 oz Body Mass Index (BMI) 30.0 Intake and Output for Last 24 Hours 05/19/19 05/20/19 05/21/19 23:59 23:59 23:59 Intake Total 50 / 50 1710 / 1710 50 / 50 Balance 50 / 50 1710 / 1710 50 / 50 General: Alert, Oriented x3, Cooperative, No apparent distress HEENT: Atraumatic, PERRLA, EOMI, Normocephalic Oral: Moist Mucosa, No Gingival or Mucosal Lesions/ Ulcerations Neck: Supple, No JVD, Negative Carotid Bruits, Trachea Midline, Thyroid Normal Size and Texture Lungs: No rhonchi, No rales, Diminished, Wheezes, - - Decreased breath sounds bilateral, bilateral end expiratory wheezes. Cardiovascular: Regular rate, Regular Rhythm, Normal S1, Normal S2, PMI Normal Abdomen: Bowel Sounds Present, Soft, Non Tender, Non-Distended, No Hepato-splenomegaly Extremities: No clubbing, No cyanosis, No edema Skin: No rashes, No breakdown Lymphatic: No Cervical, Supraclavicular, or Inguinal Adenopathy Neurological: Cranial nerves II-XII grossly intact, Motor Exam 5/5 strength throughout Psych/Mental Status: Normal Affect, Appropriate Microbiology Past 72 Hours 05/20/19 01:15 Mucosa - Nose Respiratory Panel (PCR) - Final 05/19/19 21:45 Nasal Secretion Influenza Types A,B Direct FA (CARITO) - Final Laboratory Results 05/20/19 : Miscellaneous Test Pending Current Medications Acetaminophen (Tylenol) 650 mg PO Q6H PRN PRN PRN Reason: Pain Score 1-10/Temp > 100.7 F Last Admin: 05/20/19 23:50 Dose: 650 mg Documented by: Albuterol Sulfate (Ventolin Aerosols) 2.5 mg INHALATION Q4H PRN PRN PRN Reason: Shortness of breath, wheezing Albuterol/Ipratropium (Duoneb) 3 ml INHALATION Q4H.RT [facility] Last Admin: 05/21/19 07:16 Dose: 3 ml Documented by: Amiodarone HCl (Cordarone) 200 mg PO DAILY [facility] Last Admin: 05/20/19 10:27 Dose: 200 mg Documented by: Artificial Tears (Tears Naturale, Artificial Tears) 1 - 2 drop EACH EYE Q2H PRN PRN PRN Reason: DRY EYES Atorvastatin Calcium (Lipitor) 40 mg PO DAILY@2200 [facility] Last Admin: 05/20/19 21:38 Dose: 40 mg Documented by: Benzonatate (Tessalon Perle) 200 mg PO TID PRN PRN PRN Reason: COUGH Last Admin: 05/20/19 23:50 Dose: 200 mg Documented by: Guaifenesin (Mucinex) 1,200 mg PO BID [facility] Last Admin: 05/20/19 21:38 Dose: 1,200 mg Documented by: Azithromycin 500 mg/ Dextrose 255 mls @ 250 mls/hr IV Q24@2200 [facility] Last Infusion: 05/20/19 22:39 Dose: Infused Documented by: Ceftriaxone Sodium (Rocephin) 1 gm in 50 mls @ 100 mls/hr IV Q24@2200 [facility] Last Infusion: 05/20/19 22:08 Dose: Infused Documented by: Sodium Chloride () 250 mls @ 15 mls/hr IV .[id number] PRN PRN Reason: Saline Flush Sodium Chloride () 250 mls @ 15 mls/hr IV .[id number] PRN PRN Reason: Additional IVPB Infusion Lactobacillus Acidophilus (Acidophilus) 1 tablet PO DAILY [facility] Last Admin: 05/20/19 10:27 Dose: 1 tablet Documented by: Loratadine (Claritin) 10 mg PO DAILY [facility] Last Admin: 05/20/19 10:31 Dose: 10 mg Documented by: Meclizine HCl (Antivert) 25 mg PO Q6H PRN PRN PRN Reason: DIZZINESS Methylprednisolone (Solu-Medrol) 40 mg IV Q12 [facility] Last Admin: 05/20/19 21:38 Dose: 40 mg Documented by: Metoprolol Tartrate (Lopressor (Beta Ezio)) 12.5 mg PO BID [facility] Last Admin: 05/20/19 21:38 Dose: 12.5 mg Documented by: Ondansetron HCl (Zofran Odt) 4 mg PO Q6H PRN PRN PRN Reason: NAUSEA/VOMITING Ondansetron HCl (Zofran) 4 mg IV Q8H PRN PRN PRN Reason: NAUSEA/VOMITING Pantoprazole Sodium (Protonix) 20 mg PO DAILY [facility] Last Admin: 05/20/19 10:27 Dose: 20 mg Documented by: Sodium Chloride () 10 - 40 ml IV UD PRN PRN Reason: SALINE FLUSH Last Admin: 05/20/19 21:37 Dose: 10 ml Documented by: Thiamine HCl (Vitamin B1) 100 mg PO DAILY [facility] Last Admin: 05/20/19 10:27 Dose: 100 mg Documented by: Throat Lozenges (Cepacol Sore Throat Lozenge) 1 lozenge MUCOUS MEM Q2H PRN PRN PRN Reason: SORE THROAT Last Admin: 05/20/19 12:55 Dose: 1 lozenge Documented by: Verapamil HCl (Calan Sr) 240 mg PO DAILY [facility] Last Admin: 05/20/19 10:27 Dose: 240 mg Documented by: Warfarin Sodium (Coumadin (Pbkc)) 2 mg PO SuMoTuWeFrSa@1700 [facility]; Protocol Last Admin: 05/20/19 16:50 Dose: 2 mg Documented by: Warfarin Sodium (Coumadin (Pbkc)) 4 mg PO Th@1700 [facility]; Protocol Medical Necessity - Tobacco Use Smoking Status: Never smoker Assessment/Plan All Active Problems (Last Updated 05/20/19 @ 10:[address] José Luis Gardner MD) Community acquired pneumonia (Acute) Suspected 2019 novel coronavirus infection (Acute) This is a 69 years old female patient presented to the emergency room because of shortness of breath, nonproductive cough, wheezing and subjective fever, found to have questionable basilar infiltrate on chest x-ray and she was admitted as a case of probable community-acquired pneumonia, suspected coronavirus infection as well as asthma exacerbation. #1 probable community-acquired pneumonia: She is on IV Zithromax and Rocephin. She has been afebrile, requiring 2 L of oxygen. Chest x-ray reviewed, revealed bilateral basilar probably atelectasis, no significant opacities. There is a concern of COVID-19 infection, test was sent. Nasal swab for influenza a and B was negative. Respiratory panel for viruses were negative. Blood cultures pending. #2 asthma exacerbation: He is on IV steroids and bronchodilators. Today, patient feels better, having less wheezing. This would likely be triggered by viral infection either pneumonia or URTI. Plan to continue same treatment, ambulate, wean off oxygen as tolerated. #3 chronic atrial fibrillation: Rate is controlled, continue amiodarone and metoprolol for rate control, continue Coumadin for anticoagulation. INR subtherapeutic. Check INR tomorrow morning. #4 hypertension: Blood pressure stable, continue metoprolol and verapamil. #5 hyperlipidemia: Continue statins. #6 GERD: Continue PPI. #7 DVT prophylaxis: On Coumadin, INR subtherapeutic. This note was generated with [employer] dictation software. It may contain incorrect words, spelling, and punctuation that were not noted in checking the note before signing. Inpatient E&M: 11318 Subs Hosp L2
[2019-05-21] MEDS: Benzonatate 100 MG Capsule 200 MG PO ×2 (09:03→21:33)
[2019-05-21] MEDS: guaiFENesin 1,200 MG Tablet 1200 MG PO ×2 (09:03→21:33)
[2019-05-21] MEDS: Loratadine 10 MG Tablet PO (09:03)
[2019-05-21] MEDS: Amiodarone 200 MG Tablet PO (09:03)
[2019-05-21] MEDS: Thiamine Hydrochloride 100 MG Tablet PO (09:03)
[2019-05-21] MEDS: Verapamil SR 240 MG Tablet PO (09:03)
[2019-05-21] MEDS: Metoprolol Tartrate 25 MG Tablet 12.5 MG PO ×2 (09:04→21:33)
[2019-05-21] MEDS: Pantoprazole Sodium 20 MG Tablet PO (09:04)
[2019-05-21] MEDS: Acetaminophen 325 MG Tablet 650 MG PO ×2 (09:05→19:03)
[2019-05-21] MEDS: 0.9% Saline Lock 10 ML Syringe IV (09:07)
--- NOTE | 2019-05-21 16:39 | PCM.PN.ID ---
Patient Problems: Active and Suspected Problems (Last Updated 05/20/19 @ 10:[address] José Luis Gardner MD) Suspected 2019 novel coronavirus infection (Acute) Subjective: Feeling better, no fever, cough improved. - Physical Exam Vitals/I&O's: Vital Signs Temp Pulse Resp BP Pulse Ox 98 F 81 18 113/53 L 93 05/21/19 14:27 05/21/19 15:01 05/21/19 15:01 05/21/19 14:27 05/21/19 15:01 Oxygen Flow Rate (L/min) 92 Oxygen Delivery Method Room Air Weight: 84.4 kg Body Mass Index (BMI) 30.0 Intake and Output for Last 24 Hours 05/19/19 05/20/19 05/21/19 23:59 23:59 23:59 Intake Total 50 / 50 1710 / 1710 500 / 500 Balance 50 / 50 1710 / 1710 500 / 500 General: Alert, Cooperative, No apparent distress Lungs: Clear to auscultation, Normal air movement Cardiovascular: Regular rate, Regular Rhythm Abdomen: Soft, Non Tender, Non-Distended Skin: No rashes Microbiology Past 72 Hours 05/20/19 01:15 Mucosa - Nose Respiratory Panel (PCR) - Final 05/19/19 21:45 Nasal Secretion Influenza Types A,B Direct FA (CARITO) - Final Current Medications Acetaminophen (Tylenol) 650 mg PO Q6H PRN PRN PRN Reason: Pain Score 1-10/Temp > 100.7 F Last Admin: 05/21/19 09:05 Dose: 650 mg Documented by: Albuterol Sulfate (Ventolin Aerosols) 2.5 mg INHALATION Q4H PRN PRN PRN Reason: Shortness of breath, wheezing Albuterol/Ipratropium (Duoneb) 3 ml INHALATION Q4H.RT [facility] Last Admin: 05/21/19 15:01 Dose: 3 ml Documented by: Amiodarone HCl (Cordarone) 200 mg PO DAILY [facility] Last Admin: 05/21/19 09:03 Dose: 200 mg Documented by: Artificial Tears (Tears Naturale, Artificial Tears) 1 - 2 drop EACH EYE Q2H PRN PRN PRN Reason: DRY EYES Atorvastatin Calcium (Lipitor) 40 mg PO DAILY@2200 [facility] Last Admin: 03/24/20 21:38 Dose: 40 mg Documented by: Benzonatate (Tessalon Perle) 200 mg PO TID PRN PRN PRN Reason: COUGH Last Admin: 05/21/19 09:03 Dose: 200 mg Documented by: Guaifenesin (Mucinex) 1,200 mg PO BID [facility] Last Admin: 05/21/19 09:03 Dose: 1,200 mg Documented by: Azithromycin 500 mg/ Dextrose 255 mls @ 250 mls/hr IV Q24@2200 [facility] Last Infusion: 05/20/19 22:39 Dose: Infused Documented by: Ceftriaxone Sodium (Rocephin) 1 gm in 50 mls @ 100 mls/hr IV Q24@2200 [facility] Last Infusion: 05/20/19 22:08 Dose: Infused Documented by: Sodium Chloride () 250 mls @ 15 mls/hr IV .[id number] PRN PRN Reason: Saline Flush Sodium Chloride () 250 mls @ 15 mls/hr IV .[id number] PRN PRN Reason: Additional IVPB Infusion Lactobacillus Acidophilus (Acidophilus) 1 tablet PO DAILY [facility] Last Admin: 05/21/19 09:03 Dose: 1 tablet Documented by: Loratadine (Claritin) 10 mg PO DAILY [facility] Last Admin: 05/21/19 09:03 Dose: 10 mg Documented by: Meclizine HCl (Antivert) 25 mg PO Q6H PRN PRN PRN Reason: DIZZINESS Methylprednisolone (Solu-Medrol) 40 mg IV Q12 [facility] Last Admin: 05/21/19 09:04 Dose: 40 mg Documented by: Metoprolol Tartrate (Lopressor (Beta Ezio)) 12.5 mg PO BID [facility] Last Admin: 05/21/19 09:04 Dose: 12.5 mg Documented by: Ondansetron HCl (Zofran Odt) 4 mg PO Q6H PRN PRN PRN Reason: NAUSEA/VOMITING Ondansetron HCl (Zofran) 4 mg IV Q8H PRN PRN PRN Reason: NAUSEA/VOMITING Pantoprazole Sodium (Protonix) 20 mg PO DAILY [facility] Last Admin: 05/21/19 09:04 Dose: 20 mg Documented by: Sodium Chloride () 10 - 40 ml IV UD PRN PRN Reason: SALINE FLUSH Last Admin: 05/21/19 09:07 Dose: 20 ml Documented by: Thiamine HCl (Vitamin B1) 100 mg PO DAILY [facility] Last Admin: 05/21/19 09:03 Dose: 100 mg Documented by: Throat Lozenges (Cepacol Sore Throat Lozenge) 1 lozenge MUCOUS MEM Q2H PRN PRN PRN Reason: SORE THROAT Last Admin: 05/20/19 12:55 Dose: 1 lozenge Documented by: Verapamil HCl (Calan Sr) 240 mg PO DAILY [facility] Last Admin: 05/21/19 09:03 Dose: 240 mg Documented by: Warfarin Sodium (Coumadin (Pbkc)) 2 mg PO SuMoTuWeFrSa@1700 [facility]; Protocol Last Admin: 05/20/19 16:50 Dose: 2 mg Documented by: Warfarin Sodium (Coumadin (Pbkc)) 4 mg PO Th@1700 [facility]; Protocol Medical Necessity - Tobacco Use Smoking Status: Never smoker Route of nutrition/ use of supplements: [] Nutritional Intake: [] IV Site: [] Carrillo Catheter: [] - Assessment/Plan Antibiotics: [] Assessment/Plan: [] Active and Suspected Problems (Last Updated 05/20/19 @ 10:[address] José Luis Gardner MD) Suspected 2019 novel coronavirus infection (Acute) Acute onset fever, cough, dyspnea, aches. H/o asthma. CXR with bilat infiltrates, cbc shows leukopenia. Other viral studies and cxs neg so far. COVID pending. Cont azithro/ceftriaxone. Feeling better. Will follow
[2019-05-21] MEDS: Atorvastatin Calcium 40 MG Tablet PO (21:33)
[2019-05-21] MEDS: Ceftriaxone 1 GM/50 ML BAG IV (21:34)
[2019-05-22] VITALS (8 sets, daily range): BP systolic 116–133; BP diastolic 71–78; PULSE 69–86; RESP 14–18; TEMP 36.3–36.4; O2SAT 92–93
[2019-05-22 06:43] LABS: International Normalized Ratio 1.1; Prothrombin Time (Protime)PT. 13.6 SECONDS (11.7-14.9)
[2019-05-22] MEDS: Ipratropium/Albuterol Sulfate 3 ML AMPUL.NEB INHALATION ×2 (07:45→11:15)
[2019-05-22] MEDS: Amiodarone 200 MG Tablet PO (08:28)
[2019-05-22] MEDS: guaiFENesin 1,200 MG Tablet 1200 MG PO (08:28)
[2019-05-22] MEDS: Metoprolol Tartrate 25 MG Tablet 12.5 MG PO (08:29)
[2019-05-22] MEDS: Loratadine 10 MG Tablet PO (08:29)
[2019-05-22] MEDS: Verapamil SR 240 MG Tablet PO (08:29)
[2019-05-22] MEDS: Thiamine Hydrochloride 100 MG Tablet PO (08:29)
[2019-05-22] MEDS: Pantoprazole Sodium 20 MG Tablet PO (08:29)
[2019-05-22] MEDS: 0.9% Saline Lock 10 ML Syringe IV (08:30)
--- NOTE | 2019-05-22 08:57 | RAD_ITS ---
STUDY: X-RAY CHEST REASON FOR EXAM: Female, 69 years old. PNEUMONIA F/U -- PT IS A RULE OUT COVID-19 TECHNIQUE: Single AP portable view of the chest. COMPARISON: Comparison is made with prior study of May 19, 2019. FINDINGS: EKG electrodes are seen. Since prior study, there is evidence of increased markings with areas of confluence in the lower lobes suggestive of either atelectasis and/or early infiltrates. There is blunting of the left costophrenic angle. Normal size heart. Normal mediastinum and gagandeep. Normal visualized pulmonary arteries. There is atherosclerotic tortuosity of the aortic arch and descending thoracic aorta. There are diffuse degenerative changes of the visualized thoracic spine. Normal visualized ribs, clavicles, and shoulders. There is no demonstrated abnormality of the visualized soft tissue structures of the upper abdomen. RAD/Chest 1 View (Portable) IMPRESSION: Increasing bibasilar atelectasis/infiltrates. Electronically Signed: Magdiel Cheung, at 9:52 EDT , Service support ,
--- NOTE | 2019-05-22 11:17 | PCM.DC ---
- Discharge Diagnoses Current Active Problems: Current Active and Chronic Problems (Last Updated 05/20/19 @ 10:[address] José Luis Gardner MD) Suspected 2019 novel coronavirus infection (Acute) You will use the following diet at home:: No restrictions Your food should be the consistency of: Regular Your liquids should be the consistency of: Regular/Thin Discharge Activity: Return to Normal Activity Weight Bearing Status: Full weight bearing Additional Instructions: Self quarantine until you hear the results of your Coronavirus test Allergies/Adverse Reactions: Allergies adhesive tape Allergy (Verified 05/19/19 20:44) Rash propoxyphene HCl [From Darvon] Allergy (Verified 05/19/19 20:44) Rash sulfamethoxazole [From Bactrim] Allergy (Verified 05/19/19 20:44) Shortness of breath trimethoprim [From Bactrim] Allergy (Verified 05/19/19 20:44) Shortness of breath venom-honey bee [bee venom (honey bee)] Allergy (Verified 05/19/19 20:44) Anaphylaxis venom-wasp [wasp venom] Allergy (Verified 05/19/19 20:44) Anaphylaxis prednisone Adverse Reaction (Verified 05/19/19 20:44) Diarrhea anything that stings Allergy (Uncoded 05/19/19 20:44) Anaphylaxis banana peppers Allergy (Uncoded 05/19/19 20:44) Hives FIBERGLASS Allergy (Uncoded 05/19/19 20:44) Shortness of breath Medications to take at Discharge Epi Pen (for allergic rxn) 0.3 mg IM X1 05/04/13 Loratadine [Claritin] 10 mg PO DAILY 05/04/13 Albuterol Sulfate [Ventolin Hfa] 2 puff IH Q6H PRN PRN 12/26/15 Pantoprazole Sodium [Protonix] 20 mg PO DAILY 12/26/15 CycloSPORINE Ophthalmic [Restasis Ophthalmic] 1 drp EACH EYE BID 03/28/16 Fluticasone/Salmeterol [Advair 100-50 Diskus] 1 puff IH BID PRN 03/28/16 Meclizine HCl 25 mg PO Q6H PRN 03/28/16 Atorvastatin Calcium [Lipitor] 40 mg PO DAILY 07/02/18 Fluticasone 0.05% [Flonase Nasal [place]] 2 spray NASAL DAILY PRN PRN 07/02/18 Albuterol Aerosols [Ventolin Aerosols] 2.5 mg INHALATION Q4H PRN PRN 12/04/18 Bifidobacter. Bifidum/B.longum [Florajen Bifidoblend Capsule] 460 mg PO DAILY 12/04/18 amiodarone 200 mg tablet 200 mg PO DAILY #90 tab 12/26/18 metoprolol tartrate 25 mg tablet 12.5 mg PO BID #90 tab 12/26/18 verapamil 240 mg tablet,extended release 240 mg PO DAILY #90 tab 12/26/18 Ondansetron [Zofran] 4 mg PO Q6H PRN 02/10/19 Thiamine Mononitrate (Vit B1) [Vitamin B-1] 100 mg PO DAILY 02/10/19 Acetaminophen [Tylenol Tablet] 650 mg PO Q6H PRN PRN tab 02/12/19 Benzonatate 200 mg PO TID PRN #20 cap 04/26/19 Guaifenesin [Mucinex] 1,200 mg PO BID #14 tab.er.12h 04/26/19 Nitrofurantoin Macrocrystals [Macrobid] 100 mg PO DAILY 05/19/19 Cefdinir [Omnicef [equiv]] 300 mg PO Q12H #6 cap 05/22/19 MethylPREDNISolone DosePak [Medrol DosePak] 4 mg PO UD #1 box 05/22/19 Warfarin Sodium 4 mg PO DAILY #60 tab 05/22/19 The following prescriptions were given: MethylPREDNISolone DosePak [Medrol DosePak] 4 mg PO UD #1 box Transmission Status: Pending to [facility] Cefdinir [Omnicef [equiv]] 300 mg PO Q12H #6 cap Transmission Status: Pending to [facility] Warfarin Sodium 4 mg PO DAILY #60 tab Transmission Status: Pending to [facility] Primary Care Physician: Paul Reynolds MD [Primary Care Provider] - Test Results: Test results from this visit will be discussed in further detail at your follow-up appointment, if applicable. Please Follow Up With: Paul Reynolds
--- NOTE | 2019-05-22 11:31 | PHA.DC.MR ---
Pharmacy Service has performed discharge medication reconciliation for this patient. The patient's discharge medication list was reviewed for discrepancies and discrepancies were resolved. Home Medications Epi Pen (for allergic rxn) 0.3 mg IM X1 05/04/13 Loratadine [Claritin] 10 mg PO DAILY 05/04/13 Albuterol Sulfate [Ventolin Hfa] 2 puff IH Q6H PRN PRN 12/26/15 Pantoprazole Sodium [Protonix] 20 mg PO DAILY 12/26/15 CycloSPORINE Ophthalmic [Restasis Ophthalmic] 1 drp EACH EYE BID 03/28/16 Fluticasone/Salmeterol [Advair 100-50 Diskus] 1 puff IH BID PRN 03/28/16 Meclizine HCl 25 mg PO Q6H PRN 03/28/16 Atorvastatin Calcium [Lipitor] 40 mg PO DAILY 07/02/18 Fluticasone 0.05% [Flonase Nasal [place]] 2 spray NASAL DAILY PRN PRN 07/02/18 Albuterol Aerosols [Ventolin Aerosols] 2.5 mg INHALATION Q4H PRN PRN 12/04/18 Bifidobacter. Bifidum/B.longum [Florajen Bifidoblend Capsule] 460 mg PO DAILY 12/04/18 amiodarone 200 mg tablet 200 mg PO DAILY #90 tab 12/26/18 metoprolol tartrate 25 mg tablet 12.5 mg PO BID #90 tab 12/26/18 verapamil 240 mg tablet,extended release 240 mg PO DAILY #90 tab 12/26/18 Ondansetron [Zofran] 4 mg PO Q6H PRN 02/10/19 Thiamine Mononitrate (Vit B1) [Vitamin B-1] 100 mg PO DAILY 02/10/19 Acetaminophen [Tylenol Tablet] 650 mg PO Q6H PRN PRN tab 02/12/19 Benzonatate 200 mg PO TID PRN #20 cap 04/26/19 Guaifenesin [Mucinex] 1,200 mg PO BID #14 tab.er.12h 04/26/19 Nitrofurantoin Macrocrystals [Macrobid] 100 mg PO DAILY 05/19/19 Cefdinir [Omnicef [equiv]] 300 mg PO Q12H #6 cap 05/22/19 MethylPREDNISolone DosePak [Medrol DosePak] 4 mg PO UD #1 box 05/22/19 Warfarin Sodium 4 mg PO DAILY #60 tab 05/22/19
--- NOTE | 2019-05-22 17:12 | PCM.DC.SUM ---
Discharge Date and Diagnosis Date of Admission: 05/19/19 Date of Discharge: 05/22/19 - Primary Discharge Diagnosis #1 community-acquired pneumonia-exact organism unknown, probable gram-positive bacterial pneumonia #2 acute exacerbation of asthma #3 chronic atrial fibrillation #4 essential hypertension #5 hyperlipidemia - Secondary Discharge Diagnosis Chronic Problems (Last Updated 05/20/19 @ 10:[address] José Luis Gardner MD) On amiodarone therapy (Chronic) jail current use of anticoagulant (Chronic) Atrial fibrillation (Chronic) Asthma (Chronic) TIA (transient ischemic attack) (Chronic) CVA (cerebral vascular accident) (Chronic) HTN (hypertension) (Chronic) HLD (hyperlipidemia) (Chronic) BMI greater than 30 (Chronic) Migraine (Chronic) GERD (gastroesophageal reflux disease) (Chronic) Hospital Course and Treatment Imaging Results: 05/22/19 08:57 Chest 1 View (Portable) [RAD] Routine Operations: None Procedures: None Summary of Care Provided: The patient is a 69 year old F was seen in the emergency room at [facility] with a chief complaint of shortness of breath x1 day. Patient admitted to having a temperature of up to 99 degrees at home. Patient complained of chills and nonproductive cough. She also complained of myalgias and feeling unwell. Work-up in the emergency room included a CBC which was unremarkable, chemistry was unremarkable except for a potassium of 3.1, INR was subtherapeutic at 1.1, EKG showed a sinus rhythm at 85 with no acute ischemic changes. Lactic acid was normal, influenza screen was unremarkable. Chest x-ray showed mild bibasilar pulmonary infiltrates or atelectasis. Blood cultures were obtained and patient was given IV Rocephin and Zithromax. Patient had wheezing on examination and was given a DuoNeb aerosol but she continued to have wheezing on reexamination. Patient was admitted to PCU, she was placed on IV antibiotics and aerosol treatments. It was felt that she had an acute exacerbation of asthma and was placed on IV corticosteroids. Patient was seen in consultation by infectious diseases and there was concern for possible coronavirus infection, a coronavirus test was obtained from the patient but at the time of the patient's discharge from the hospital, this result had not resulted. On 05/22/2019, patient was seen and examined: On examination she appeared in good health and spirits, she does not appear to be in any distress. Vital signs as documented. Skin warm and dry and without overt rashes. Neck without JVD, thyroid appears normal, trachea is midline, neck is supple. Lungs-faint inspiratory rales at the bases were noted bilaterally, normal air movement was noted. Heart exam notable for regular rhythm, normal sounds and absence of murmurs, rubs or gallops. Abdomen unremarkable and without evidence of organomegaly, masses, or abdominal aortic enlargement, bowel sounds are present in all 4 quadrants, no abdominal tenderness was noted. Extremities nonedematous, no cyanosis was noted, no clubbing was noted. Neuro: Cranial nerves II through XII are grossly intact, no focal motor deficits were noted, sensation to light touch and pinprick is intact, motor exam 5/5 throughout. Psych: Patient is alert and oriented x3, she does not appear anxious or depressed, she does not appear agitated. On 05/22/2019, patient was felt to be stable for discharge home, due to the pending coronavirus test on the patient, she was instructed to maintain a quarantine at her home, she will be notified of her test results by either the health department or by the infectious disease nurse at the hospital (if it is negative). - Physical Exam Vitals/I&O's: Vital Signs Temp Pulse Resp BP Pulse Ox 97.6 F L 86 14 133/76 H 93 05/22/19 09:07 05/22/19 13:33 05/22/19 13:33 05/22/19 13:33 05/22/19 13:33 Oxygen Flow Rate (L/min) 92 Oxygen Delivery Method Room Air Weight: 84.4 kg Body Mass Index (BMI) 30.0 Intake and Output for Last 24 Hours 05/20/19 05/21/19 05/22/19 23:59 23:59 23:59 Intake Total 1710 / 1710 1625 / 1625 675 / 675 Balance 1710 / 1710 1625 / 1625 675 / 675 Microbiology Past 72 Hours 05/19/19 22:30 Blood Culture (Wb) - Anticubital Right Blood Culture - Preliminary No growth in 48 hours. 05/19/19 21:54 Blood Culture (Wb) - Anticubital Left Blood Culture - Preliminary No growth in 48 hours. 05/20/19 01:15 Mucosa - Nose Respiratory Panel (PCR) - Final 05/19/19 21:45 Nasal Secretion Influenza Types A,B Direct FA (CARITO) - Final Laboratory Results 05/22/19 05:54: PT 13.6, INR 1.1 Discharge Activity: Return to Normal Activity Weight Bearing Status: Full weight bearing Home Medications: Medications to take at Discharge Epi Pen (for allergic rxn) 0.3 mg IM X1 05/04/13 Loratadine [Claritin] 10 mg PO DAILY 05/04/13 Albuterol Sulfate [Ventolin Hfa] 2 puff IH Q6H PRN PRN 12/26/15 Pantoprazole Sodium [Protonix] 20 mg PO DAILY 12/26/15 CycloSPORINE Ophthalmic [Restasis Ophthalmic] 1 drp EACH EYE BID 03/28/16 Fluticasone/Salmeterol [Advair 100-50 Diskus] 1 puff IH BID PRN 03/28/16 Meclizine HCl 25 mg PO Q6H PRN 03/28/16 Atorvastatin Calcium [Lipitor] 40 mg PO DAILY 07/02/18 Fluticasone 0.05% [Flonase Nasal [place]] 2 spray NASAL DAILY PRN PRN 07/02/18 Albuterol Aerosols [Ventolin Aerosols] 2.5 mg INHALATION Q4H PRN PRN 12/04/18 Bifidobacter. Bifidum/B.longum [Florajen Bifidoblend Capsule] 460 mg PO DAILY 12/04/18 amiodarone 200 mg tablet 200 mg PO DAILY #90 tab 12/26/18 metoprolol tartrate 25 mg tablet 12.5 mg PO BID #90 tab 12/26/18 verapamil 240 mg tablet,extended release 240 mg PO DAILY #90 tab 12/26/18 Ondansetron [Zofran] 4 mg PO Q6H PRN 02/10/19 Thiamine Mononitrate (Vit B1) [Vitamin B-1] 100 mg PO DAILY 02/10/19 Acetaminophen [Tylenol Tablet] 650 mg PO Q6H PRN PRN tab 02/12/19 Benzonatate 200 mg PO TID PRN #20 cap 04/26/19 Guaifenesin [Mucinex] 1,200 mg PO BID #14 tab.er.12h 04/26/19 Nitrofurantoin Macrocrystals [Macrobid] 100 mg PO DAILY 05/19/19 Cefdinir [Omnicef [equiv]] 300 mg PO Q12H #6 cap 05/22/19 MethylPREDNISolone DosePak [Medrol DosePak] 4 mg PO UD #1 box 05/22/19 Warfarin Sodium 4 mg PO DAILY #60 tab 05/22/19 Following Prescrptions Were Given to Patient: MethylPREDNISolone DosePak [Medrol DosePak] 4 mg PO UD #1 box Transmission Status: Received by [facility] Cefdinir [Omnicef [equiv]] 300 mg PO Q12H #6 cap Transmission Status: Received by [facility] Warfarin Sodium 4 mg PO DAILY #60 tab Transmission Status: Received by [facility] Primary Care Physician: Paul Reynolds MD [Primary Care Provider] - Please Follow Up With: Paul Reynolds Disposition: Home Minutes spent on discharge:: 31 Patient Condition:: Stable Medical Necessity - Tobacco Use Smoking Status: Never smoker Meaningful Use Info Meaningful Use Diagnoses (Choose all that apply): None applicable Inpatient E&M: 73270 Disch Hosp
--- NOTE | 2019-05-23 14:47 | CASEMGMT ---
DC DATE: 05.22.2019 DC DISPOSITION: Home DC DIAGNOSIS: Pneumonia LACE/STRATA: 15/4 F/U APPTS MADE PRIOR TO DC: yes PRESCRIPTIONS ACQUIRED BY PT:X Attempted call to phone. number did not go through. Ben ALCAZARN RN ACM
--- NOTE | 2019-05-31 14:57 | CM.UR ---
CHAPARRITA CM Discharge Follow-up Phone Call: ONEYDA: Sin Strata: 4 Call Date: 05/31/19 Discharge Date: 05/22/19 Time of Call: 14:59 Duration: 3 minutes States still having some cough and some sob with activity. States did go to DC f/u appt we had scheduled for her. she did obtain rx Her pcp did tell her that her COVID 19 was negative. States her pcp released her to go back to work and she has left messages at work but they have not called her back about starting to work again. States she is working on filing unemployment. Denies any questions or needs at this time. Verb understanding to contact her pcp/follow up with pcp as needed. CHAPARRITA montalvo, CCM.
== END 2019-05-22 14:49 | disposition home or self-care (01) | DRG 194 ==
LOC: ED 21:09 → PCU 23:46
PROVIDERS: Hospitalist; Physician Assistant; Admitting Provider Family Medicine; Emergency Provider Emergency Medicine; PCP Family Medicine; Visit Provider Internal Medicine
DX: J15.9 Unspecified bacterial pneumonia (principal); J45.901 Unspecified asthma with (acute) exacerbation; I48.20 Chronic atrial fibrillation, unspecified; E87.6 Hypokalemia; I10 Essential (primary) hypertension; E78.5 Hyperlipidemia, unspecified; K21.9 Gastro-esophageal reflux disease without esophagitis; Z79.01 Long term (current) use of anticoagulants; Z79.899 Other long term (current) drug therapy; Z87.01 Personal history of pneumonia (recurrent); Z87.440 Personal history of urinary (tract) infections; Z86.73 Personal history of transient ischemic attack (TIA), and cerebral infarction without residual deficits
CPT/HCPCS: 36415; 71045; 80048; 80053; 81001; 83605; 83735; 84100; 84484; 85025; 85610; 87040; 87633; 87804; 93005; 94640; 94667; 94668; 97802; 99251; 99285; J7030; A4216; G0463; J2405

== ENCOUNTER → 2019-05-29 09:48 | Outpatient (CLI) | payer MEDICARE, SELFPAY ==
--- NOTE | 2019-05-29 09:13 | RAD_ITS ---
STUDY: X-RAY CHEST REASON FOR EXAM: Female, 69 years old. F/U from recent Pneumonia per patient. Just got out of hospital 1 week ago. Patient is still having cough, sob and tightness in her chest. TECHNIQUE: PA and lateral views of the chest. COMPARISON: Comparison is made with prior examination dated May 22, 2019. FINDINGS: Hyperinflation. Since prior study, minimal residual changes persist at the left lung base. The right lung base is now clear. Scattered calcified granulomas. There is no demonstrated pleural abnormality. Normal size heart. Normal mediastinum and gagandeep. Normal visualized pulmonary arteries. There is atherosclerotic tortuosity of the aortic arch and descending thoracic aorta. There are degenerative changes of the visualized thoracic spine. Normal visualized ribs, clavicles, and shoulders. There is no demonstrated abnormality of the visualized soft tissue structures of the upper abdomen. RAD/Chest PA and Lateral IMPRESSION: Minimal reticular changes are seen at the left lung base. The right lung base is clear. Electronically Signed: Magdiel Cheung, at 12:45 EDT , Service support ,
== END ==
LOC: RAD 09:49
PROVIDERS: PCP Family Medicine; Referring Provider Family Medicine; Visit Provider Family Medicine
DX: J18.9 Pneumonia, unspecified organism (principal)
CPT/HCPCS: 71046

== ENCOUNTER 2019-07-02 18:46 | Emergency (ER) | payer MEDICARE, SELFPAY ==
[2019-07-02 18:46] VITALS: BP 165/79; PULSE 69; RESP 16; TEMP 36.4; O2SAT 96; BMI 29.0
--- NOTE | 2019-07-02 19:11 | RAD_ITS ---
STUDY: X-RAY - LEFT ELBOW REASON FOR EXAM: Female, 69 years old. LEFT ELBOW PAIN AFTER FALL TECHNIQUE: 3 view(s) of the elbow. COMPARISON: None. FINDINGS: Normal visualized humerus, radius and ulna. Normal radiocapitellar and ulnotrochlear articulations. The soft tissue structures are unremarkable. RAD/Elbow min 3 Views IMPRESSION: Normal x-ray examination of the elbow. Electronically Signed: Sasha Marinelli MD at 19:26 EDT Tel , Service support ,
--- NOTE | 2019-07-02 19:41 | ED.VIS.GEN ---
History of Present Illness Chief Complaint: Upper Extremity Injury Informant: Patient Onset: Today Narrative: She sustained a fall and injured her left elbow. She notes limited range of motion. She notes a superficial cut which she cleaned at home. She denies any other injuries. Past Medical History - Allergies and Home Meds Allergies/Adverse Reactions: Allergies adhesive tape Allergy (Verified 07/02/19 18:46) Rash propoxyphene HCl [From Darvon] Allergy (Verified 07/02/19 18:46) Rash sulfamethoxazole [From Bactrim] Allergy (Verified 07/02/19 18:46) Shortness of breath trimethoprim [From Bactrim] Allergy (Verified 07/02/19 18:46) Shortness of breath venom-honey bee [bee venom (honey bee)] Allergy (Verified 07/02/19 18:46) Anaphylaxis venom-wasp [wasp venom] Allergy (Verified 07/02/19 18:46) Anaphylaxis prednisone Adverse Reaction (Verified 07/02/19 18:46) Diarrhea anything that stings Allergy (Uncoded 07/02/19 18:46) Anaphylaxis banana peppers Allergy (Uncoded 07/02/19 18:46) Hives FIBERGLASS Allergy (Uncoded 07/02/19 18:46) Shortness of breath Primary Care Physician: Paul Reynolds MD [Primary Care Provider] - Surgical History: - - Cholecystectomy, hysterectomy, right mastoid tumor resection. Smoking Status: Never smoker - Family History Paternal Family History: Family History (Last Reviewed 03/03/19 @ 10:03 by Kristine Schmidt) Father CAD (coronary artery disease) Family History: Reports: Heart Disease Maternal Family History: Family History (Last Reviewed 03/03/19 @ 10:03 by Kristine Schmidt) Father CAD (coronary artery disease) Family History: Reports: Unknown - Patient notes that she does not know any maternal history, mother never went to the doctor. She denies any known history of heart disease, diabetes or cancer. Review of Systems General: Denies: Chills, Fever, Sweats Eyes: Denies: Visual changes - bilaterally, Diplopia ENT: Denies: Rhinorrhea, Sore throat Cardiovascular: Denies: Chest pain, Palpitations Respiratory: Denies: Dyspnea, Cough, Dyspnea on exertion Gastrointestinal: Denies: Abdominal pain, Nausea, Vomiting, Diarrhea, Melena, Hematochezia Genitourinary: Denies: Dysuria, Hematuria, Frequency Musculoskeletal: Reports: Extremity Pain. Denies: Back pain Skin: Denies: Rash, Wounds Neurological: Denies: Headache, Weakness, Numbness Physical Exam Vital Signs/Narrative: Vital Signs Temp Pulse Resp BP Pulse Ox 07/02/19 18:46 97.6 F L 69 16 165/79 H 96 Inital Vital Signs reviewed: Yes General: Well nourished, Well developed, No Acute Distress Head: Normocephalic, Atraumatic Eyes: Perrl, EOMI ENT: Moist mucous membranes, No rhinorrhea Neck: Supple, Nontender Cardiovascular: Regular rate, Regular rhythm, No murmurs Respiratory: No distress, CTA bilaterally, Chest nontender Abdomen: Soft, Nontender, Nondistended, Normal bowel sounds Back: Nontender, Normal Inspection Extremities: No edema, Tenderness - Patient has diffuse tenderness about the left elbow. She has painful supination and pronation but is able to perform it. Neurovascular intact distally to the site of the injury. There is no obvious joint effusion. There is a superficial abrasion over the lateral distal humerus. Skin: Normal color, No rash Neurological: Alert, Oriented x3, Cranial nerves II-XII grossly intact, Normal Strength, Normal Sensation Psychological: Normal affect, Normal Mood Diagnostic/Tx/Re-eval - Medical Decision Making X-rays of the left elbow were negative for fracture. Patient will be discharged home. I will give her a sling for when she is up ambulating but encouraged her not to use it as much as possible to prevent any further complications. If she is not improving please follow-up with primary care or with orthopedics in 10 to 14 days. Commend Tylenol or NSAIDs for pain. ED Disposition - Plan for ED Patient: Diagnosis: Left elbow contusion Instructions: ED ELBOW CONTUSION Referrals: Paul Reynolds MD [Primary Care Provider] - 10-14 Days if not better
[2019-07-02 19:52] VITALS: RESP 18
--- OUTSIDE RECORDS SUMMARY | 2019-08-14 04:46 | XMS RPT_ITS | CCD ---
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 12 % LOTION Apply 1 application to affect* THIAMINE MONONITRATE (VITAMIN* Take 1 tablet by mouth once d * CYCLOSPORINE 0.05 % EYE DROPS* Use 1 Drop in both eyes twice * LORATADINE 10 MG TABLET Take 1 tablet by mouth once d* COMPOUNDED PRESCRIPTION NEBULIZER FOR HOME USE. DX: * ALBUTEROL SULFATE 2.5 MG/3 ML* Use 3 mL via nebulizer every * ELIQUIS 5 MG TABLET Take 5 mg by mouth twice ellie* GLUCOSAMINE 1500 COMPLEX ORAL Take 1 tablet by mouth once d* Problem List As Of Date 05/26/2019 Noted Resolved Sebaceous cyst [L72.3] 05/15/2007 04/16/2012 Environmental allergies [Z91.09] Asthma [J45.909] More... Arthropathy, unspecified, site unspecified [M12* Essential hypertension [I10] More... IBS (irritable bowel syndrome) [K58.9] GERD (gastroesophageal reflux disease) [K21.9] More... Migraine [G43.909] More... Diverticulitis [K57.92] Hyperlipidemia, mixed [E78.2] More... Fracture of finger, middle or proximal phalanx,*08/28/2012 History of colon polyps [Z86.010] Chronic pain of right knee [M25.561, G89.29] 12/13/2015 Primary osteoarthritis of right knee [M17.11] 12/13/2015 BPPV (benign paroxysmal positional vertigo) [H8*04/04/2016 Bee sting allergy [Z91.030] 12/11/2017 Bilateral low back pain with bilateral sciatica*12/27/2017 More... Calculus of kidney [N20.0] 05/09/2018 More... LLQ pain [R10.32] 05/27/2018 TIA (transient ischemic attack) [G45.9] 07/29/2018 Dry skin [L85.3] 09/03/2018 Atrial fibrillation with rapid ventricular resp*12/30/2018 Disposition: Return if symptoms worsen or fail to improve. Follow-up and Disposition History Recorded Letter Text Encounter Status:Closed by PAUL ERICKSON [facility] CNPN Telephone (TATIANA) Normal 05-24-2019 [place] [facility] ROMAIN BAILEY ([id number]) 1950 [facility] Time Provider Department ([id number]) 05/24/19 ALAINA ERICKSON During your visit today, we recorded the following informati on about you: Maame Ott Conference Concierge Pss 05/24/2019 2:57 PM Signed Is patient being called for appointment on Sunday or coming in? Allergies As of Date: 05/24/2019 Noted Allergy Reaction ADHESIVE TAPE (ROSINS) 12/05/2016 2 - Rash BACTRIM DS (SULFAMETHOXAZOLE-TRIM*12/29/2014 10 - Anaphylaxi s Comments: Difficulty breathing, fever, chills BEE STING 08/28/2012 10 - Anaphylaxis DARVON (PROPOXYPHENE HCL) 05/15/2007 INFLUENZA VIRUS VACCINES 01/07/2019 14 - Other: See Comments Comments: Chest tightness, arm swelling. PREDNISONE 03/07/2016 8 - GI Upset Date Reviewed: 04/29/2019 Reviewed by: Dwight Encarnacion - Fully Assessed Reason for Visit: Appointment [186] Prescriptions as of 05/24/2019 Sig: DICLOFENAC 1 % TOPICAL GEL Apply 2 g to affected area fo* LEVOFLOXACIN 500 MG TABLET Take 500 mg by mouth once pancho* MUCINEX 1,200 MG TABLET, EXTE* Take by mouth twice daily. MELOXICAM 15 MG TABLET Take 1 tablet by mouth once d* Patient not taking: Reported on 04/28/2019 ONDANSETRON 4 MG DISINTEGRATI* DISSOLVE 1 TABLET ON THE TONG * WARFARIN 2 MG TABLET Take 2 mg by mouth. EPINEPHRINE 0.3 MG/0.3 ML INJ* Inject 0.3 mL intramuscularly * ALBUTEROL SULFATE HFA 90 MCG/* Inhale 2 Puffs as instructed * FLUTICASONE 100 MCG-SALMETERO* Inhale 1 Puff as instructed t * MECLIZINE 25 MG TABLET Take 1 tablet by mouth every * FLUTICASONE PROPIONATE 50 MCG* Use 2 Sprays in each nostril * BENZONATATE 100 MG CAPSULE Take 2 capsules by mouth thre* ATORVASTATIN 40 MG TABLET Take 1 tablet by mouth once d* PANTOPRAZOLE 20 MG TABLET,DEL* Take 1 tablet by mouth daily * FLORAJEN BIFIDOBLEND 460 MG (* Take 1 capsule by mouth once * AMIODARONE 200 MG TABLET Take 200 mg by mouth once pancho* ELIQUIS 5 MG TABLET Take 5 mg by mouth twice ellie* METOPROLOL TARTRATE 25 MG TAB* Take 12.5 mg by mouth twice d * VERAPAMIL ER (SR) 240 MG TABL* TAKE 1 TABLET BY MOUTH EVERYD * AMMONIUM LACTATE 12 % LOTION Apply 1 application to affect* CYCLOSPORINE 0.05 % EYE DROPS* Use 1 Drop in both eyes twice * LORATADINE 10 MG TABLET Take 1 tablet by mouth once d* COMPOUNDED PRESCRIPTION NEBULIZER FOR HOME USE. DX: * ALBUTEROL SULFATE 2.5 MG/3 ML* Use 3 mL via nebulizer every * GLUCOSAMINE 1500 COMPLEX ORAL Take 1 tablet by mouth once d* Problem List As Of Date 05/24/2019 Noted Resolved Sebaceous cyst [L72.3] 05/15/2007 04/16/2012 Environmental allergies [Z91.09] Asthma [J45.909] More... Arthropathy, unspecified, site unspecified [M12* Essential hypertension [I10] More... IBS (irritable bowel syndrome) [K58.9] GERD (gastroesophageal reflux disease) [K21.9] More... Migraine [G43.909] More... Diverticulitis [K57.92] Hyperlipidemia, mixed [E78.2] More... Fracture of finger, middle or proximal phalanx,*08/28/2012 History of colon polyps [Z86.010] Chronic pain of right knee [M25.561, G89.29] 12/13/2015 Primary osteoarthritis of right knee [M17.11] 12/13/2015 BPPV (benign paroxysmal positional vertigo) [H8*04/04/2016 Bee sting allergy [Z91.030] 12/11/2017 Bilateral low back pain with bilateral sciatica*12/27/2017 More... Calculus of kidney [N20.0] 05/09/2018 More... LLQ pain [R10.32] 05/27/2018 TIA (transient ischemic attack) [G45.9] 07/29/2018 Dry skin [L85.3] 09/03/2018 Atrial fibrillation with rapid ventricular resp*12/30/2018 Encounter Status:Closed by WOOD STRIP BLOCK FLOOR INSTALLER MAAME JOHNSON on 05/26/19 cnpn on 2019-05-21 CNPN Telephone (FPWADS) Normal 05-21-2019 [place] ROMAIN Marin ([id number]) 1950 [facility] Date Time Provider Department ([id number]) 05/21/19 ALAINA ERICKSON During your visit today, we recorded the following informati on about you: Kristine Serra Ma 05/21/2019 9:48 AM Signed Received records from [facility] ER 05/19/19 for shortness of breath and cxr. Will scan in once reviewed Kristine Serra Ma 05/22/2019 11:46 AM Signed Received [facility] cxr 05/22/19. Impression: increasing bibasilar atelectasis/infiltrates Will send to scanning once completed Kristine Serra Ma Allergies As of Date: 05/21/2019 Noted Allergy Reaction ADHESIVE TAPE (ROSINS) 12/05/2016 2 - Rash BACTRIM DS (SULFAMETHOXAZOLE-TRIM*12/29/2014 10 - Anaphylaxi s Comments: Difficulty breathing, fever, chills BEE STING 08/28/2012 10 - Anaphylaxis DARVON (PROPOXYPHENE HCL) 05/15/2007 INFLUENZA VIRUS VACCINES 01/07/2019 14 - Other: See Comments Comments: Chest tightness, arm swelling. PREDNISONE 03/07/2016 8 - GI Upset Date Reviewed: 04/29/2019 Reviewed by: Dwight Encarnacion - Fully Assessed Reason for Visit: [facility] ER 05/19/19 [Other] Prescriptions as of 05/21/2019 Sig: DICLOFENAC 1 % TOPICAL GEL Apply 2 g to affected area fo* LEVOFLOXACIN 500 MG TABLET Take 500 mg by mouth once pancho* MUCINEX 1,200 MG TABLET, EXTE* Take by mouth twice daily. MELOXICAM 15 MG TABLET Take 1 tablet by mouth once d* Patient not taking: Reported on 04/28/2019 ONDANSETRON 4 MG DISINTEGRATI* DISSOLVE 1 TABLET ON THE TONG * WARFARIN 2 MG TABLET Take 2 mg by mouth. EPINEPHRINE 0.3 MG/0.3 ML INJ* Inject 0.3 mL intramuscularly * ALBUTEROL SULFATE HFA 90 MCG/* Inhale 2 Puffs as instructed * FLUTICASONE 100 MCG-SALMETERO* Inhale 1 Puff as instructed t * MECLIZINE 25 MG TABLET Take 1 tablet by mouth every * FLUTICASONE PROPIONATE 50 MCG* Use 2 Sprays in each nostril * BENZONATATE 100 MG CAPSULE Take 2 capsules by mouth thre* ATORVASTATIN 40 MG TABLET Take 1 tablet by mouth once d* PANTOPRAZOLE 20 MG TABLET,DEL* Take 1 tablet by mouth daily * FLORAJEN BIFIDOBLEND 460 MG (* Take 1 capsule by mouth once * AMIODARONE 200 MG TABLET Take 200 mg by mouth once pancho* ELIQUIS 5 MG TABLET Take 5 mg by mouth twice ellie* METOPROLOL TARTRATE 25 MG TAB* Take 12.5 mg by mouth twice d * VERAPAMIL ER (SR) 240 MG TABL* TAKE 1 TABLET BY MOUTH EVERYD * AMMONIUM LACTATE 12 % LOTION Apply 1 application to affect* THIAMINE MONONITRATE (VITAMIN* Take 1 tablet by mouth once d * CYCLOSPORINE 0.05 % EYE DROPS* Use 1 Drop in both eyes twice * LORATADINE 10 MG TABLET Take 1 tablet by mouth once d* COMPOUNDED PRESCRIPTION NEBULIZER FOR HOME USE. DX: * ALBUTEROL SULFATE 2.5 MG/3 ML* Use 3 mL via nebulizer every * GLUCOSAMINE 1500 COMPLEX ORAL Take 1 tablet by mouth once d* Problem List As Of Date 05/21/2019 Noted Resolved Sebaceous cyst [L72.3] 05/15/2007 04/16/2012 Environmental allergies [Z91.09] Asthma [J45.909] More... Arthropathy, unspecified, site unspecified [M12* Essential hypertension [I10] More... IBS (irritable bowel syndrome) [K58.9] GERD (gastroesophageal reflux disease) [K21.9] More... Migraine [G43.909] More... Diverticulitis [K57.92] Hyperlipidemia, mixed [E78.2] More... Fracture of finger, middle or proximal phalanx,*08/28/2012 History of colon polyps [Z86.010] Chronic pain of right knee [M25.561, G89.29] 12/13/2015 Primary osteoarthritis of right knee [M17.11] 12/13/2015 BPPV (benign paroxysmal positional vertigo) [H8*04/04/2016 Bee sting allergy [Z91.030] 12/11/2017 Bilateral low back pain with bilateral sciatica*12/27/2017 More... Calculus of kidney [N20.0] 05/09/2018 More... LLQ pain [R10.32] 05/27/2018 TIA (transient ischemic attack) [G45.9] 07/29/2018 Dry skin [L85.3] 09/03/2018 Atrial fibrillation with rapid ventricular resp*12/30/2018 Encounter Status:Closed by KRISTINE SERRA MA on 05/21/19 cnpn on 2019-05-19 CNPN Telephone (WALKWA) Normal 05-19-2019 [place] [facility] GRUPOROMAIN Platt ([id number]) 1950 [facility] Date Time Provider Department ([id number]) 05/19/19 ALAINA ERICKSON During your visit today, we recorded the following informati on about you: Amada Hernandez Ma 05/19/2019 8:03 AM Signed Nurse community education specialist called in and stated that this patient p honed in with UTI like symptoms. Patient stated anthony t when she was seen on 04/23/19 she only took 1 dose of the Macrobid and ended up in the ED for pneum onia. She states she is still having UTI like symptoms and can only void a few drops at a time. Wants to know if she can start back on the Macrobid. Would like to avoid going to the ED. Please advise. Alaina Erickson MD 05/19/2019 11:17 AM Signed She may go ahead and start the Macrodantin prescription. Keep us posted on symptoms may need to repeat the urine and add a culture. MD Kristine Ruff Ma 05/19/2019 11:32 AM Signed Patient notified Kristine Serra Ma Allergies As of Date: 05/19/2019 Noted Allergy Reaction ADHESIVE TAPE (ROSINS) 12/05/2016 2 - Rash BACTRIM DS (SULFAMETHOXAZOLE-TRIM*12/29/2014 10 - Anaphylaxi s Comments: Difficulty breathing, fever, chills BEE STING 08/28/2012 10 - Anaphylaxis DARVON (PROPOXYPHENE HCL) 05/15/2007 INFLUENZA VIRUS VACCINES 01/07/2019 14 - Other: See Comments Comments: Chest tightness, arm swelling. PREDNISONE 03/07/2016 8 - GI Upset Date Reviewed: 04/29/2019 Reviewed by: Dwight Encarnacion - Fully Assessed Reason for Visit: Symptoms [3640] Prescriptions as of 05/19/2019 Sig: DICLOFENAC 1 % TOPICAL GEL Apply 2 g to affected area fo* LEVOFLOXACIN 500 MG TABLET Take 500 mg by mouth once pancho* MUCINEX 1,200 MG TABLET, EXTE* Take by mouth twice daily. MELOXICAM 15 MG TABLET Take 1 tablet by mouth once d* Patient not taking: Reported on 04/28/2019 ONDANSETRON 4 MG DISINTEGRATI* DISSOLVE 1 TABLET ON THE TONG * WARFARIN 2 MG TABLET Take 2 mg by mouth. EPINEPHRINE 0.3 MG/0.3 ML INJ* Inject 0.3 mL intramuscularly * ALBUTEROL SULFATE HFA 90 MCG/* Inhale 2 Puffs as instructed * FLUTICASONE 100 MCG-SALMETERO* Inhale 1 Puff as instructed t * MECLIZINE 25 MG TABLET Take 1 tablet by mouth every * FLUTICASONE PROPIONATE 50 MCG* Use 2 Sprays in each nostril * BENZONATATE 100 MG CAPSULE Take 2 capsules by mouth thre* ATORVASTATIN 40 MG TABLET Take 1 tablet by mouth once d* PANTOPRAZOLE 20 MG TABLET,DEL* Take 1 tablet by mouth daily * FLORAJEN BIFIDOBLEND 460 MG (* Take 1 capsule by mouth once * AMIODARONE 200 MG TABLET Take 200 mg by mouth once pancho* ELIQUIS 5 MG TABLET Take 5 mg by mouth twice ellie* METOPROLOL TARTRATE 25 MG TAB* Take 12.5 mg by mouth twice d * VERAPAMIL ER (SR) 240 MG TABL* TAKE 1 TABLET BY MOUTH EVERYD * AMMONIUM LACTATE 12 % LOTION Apply 1 application to affect* THIAMINE MONONITRATE (VITAMIN* Take 1 tablet by mouth once d * CYCLOSPORINE 0.05 % EYE DROPS* Use 1 Drop in both eyes twice * LORATADINE 10 MG TABLET Take 1 tablet by mouth once d* COMPOUNDED PRESCRIPTION NEBULIZER FOR HOME USE. DX: * ALBUTEROL SULFATE 2.5 MG/3 ML* Use 3 mL via nebulizer every * GLUCOSAMINE 1500 COMPLEX ORAL Take 1 tablet by mouth once d* Problem List As Of Date 05/19/2019 Noted Resolved Sebaceous cyst [L72.3] 05/15/2007 04/16/2012 Environmental allergies [Z91.09] Asthma [J45.909] More... Arthropathy, unspecified, site unspecified [M12* Essential hypertension [I10] More... IBS (irritable bowel syndrome) [K58.9] GERD (gastroesophageal reflux disease) [K21.9] More... Migraine [G43.909] More... Diverticulitis [K57.92] Hyperlipidemia, mixed [E78.2] More... Fracture of finger, middle or proximal phalanx,*08/28/2012 History of colon polyps [Z86.010] Chronic pain of right knee [M25.561, G89.29] 12/13/2015 Primary osteoarthritis of right knee [M17.11] 12/13/2015 BPPV (benign paroxysmal positional vertigo) [H8*04/04/2016 Bee sting allergy [Z91.030] 12/11/2017 Bilateral low back pain with bilateral sciatica*12/27/2017 More... Calculus of kidney [N20.0] 05/09/2018 More... LLQ pain [R10.32] 05/27/2018 TIA (transient ischemic attack) [G45.9] 07/29/2018 Dry skin [L85.3] 09/03/2018 Atrial fibrillation with rapid ventricular resp*12/30/2018 Encounter Status:Closed by AMADA HERNANDEZ MA on 05/19/19 cnpn on 2019-05-15 CNPN Telephone (ORQ) Normal 05-15-2019 [place] [facility] ROMAIN BAILEY ([id number]) 1950 [facility] Time Provider Department ([id number]) 05/15/19 DWIGHT ENCARNACION ORQ During your visit today, we recorded the following informati on about you: Anaya Whaley Pss 05/15/2019 10:18 AM Signed Patient called and said knee brace is causing swelling. She even tried a softer brace and she is stil l in a lot of pain and has had to take off of work. She said the brace was to be tried first, but is asking if there is still a medication she can have prescribed. Please contact patient t o advise of prescription. Karuna Sanchez PA-C 05/15/2019 2:40 PM Signed I reviewed her chart and she is on a blood thinner so we c annot give her an oral NSAID. I can send in some topical volteren gel or she c an schedule a follow up for a cortisone injection. Or try tylenol. Emi Sage Ma 05/15/2019 4:07 PM Signed I called and spoke with patient. Message from Karuna given. Patient would like to try the Volatren gel. Confirmed [facility] in [facility]. Karuna Sanchez PA-C 05/16/2019 8:57 AM Signed Rx sent to pharmacy. Allergies As of Date: 05/15/2019 Noted Allergy Reaction ADHESIVE TAPE (ROSINS) 12/05/2016 2 - Rash BACTRIM DS (SULFAMETHOXAZOLE-TRIM*12/29/2014 10 - Anaphylaxi s Comments: Difficulty breathing, fever, chills BEE STING 08/28/2012 10 - Anaphylaxis DARVON (PROPOXYPHENE HCL) 05/15/2007 INFLUENZA VIRUS VACCINES 01/07/2019 14 - Other: See Comments Comments: Chest tightness, arm swelling. PREDNISONE 03/07/2016 8 - GI Upset Date Reviewed: 04/29/2019 Reviewed by: Dwight Encarnacion - Fully Assessed Reason for Visit: knee brace swelling [Other] Order(s):diclofenac sodium (VOLTAREN) 1 % topical gelApply 2 g to affected area four times daily.Disp: 400 gRfl: 2 Prescriptions as of 05/15/2019 Sig: DICLOFENAC 1 % TOPICAL GEL Apply 2 g to affected area fo* LEVOFLOXACIN 500 MG TABLET Take 500 mg by mouth once pancho* MUCINEX 1,200 MG TABLET, EXTE* Take by mouth twice daily. MELOXICAM 15 MG TABLET Take 1 tablet by mouth once d* Patient not taking: Reported on 04/28/2019 ONDANSETRON 4 MG DISINTEGRATI* DISSOLVE 1 TABLET ON THE TONG * WARFARIN 2 MG TABLET Take 2 mg by mouth. EPINEPHRINE 0.3 MG/0.3 ML INJ* Inject 0.3 mL intramuscularly * ALBUTEROL SULFATE HFA 90 MCG/* Inhale 2 Puffs as instructed * FLUTICASONE 100 MCG-SALMETERO* Inhale 1 Puff as instructed t * MECLIZINE 25 MG TABLET Take 1 tablet by mouth every * FLUTICASONE PROPIONATE 50 MCG* Use 2 Sprays in each nostril * BENZONATATE 100 MG CAPSULE Take 2 capsules by mouth thre* ATORVASTATIN 40 MG TABLET Take 1 tablet by mouth once d* PANTOPRAZOLE 20 MG TABLET,DEL* Take 1 tablet by mouth daily * FLORAJEN BIFIDOBLEND 460 MG (* Take 1 capsule by mouth once * AMIODARONE 200 MG TABLET Take 200 mg by mouth once pancho* ELIQUIS 5 MG TABLET Take 5 mg by mouth twice ellie* METOPROLOL TARTRATE 25 MG TAB* Take 12.5 mg by mouth twice d * VERAPAMIL ER (SR) 240 MG TABL* TAKE 1 TABLET BY MOUTH EVERYD * AMMONIUM LACTATE 12 % LOTION Apply 1 application to affect* CYCLOSPORINE 0.05 % EYE DROPS* Use 1 Drop in both eyes twice * LORATADINE 10 MG TABLET Take 1 tablet by mouth once d* COMPOUNDED PRESCRIPTION NEBULIZER FOR HOME USE. DX: * ALBUTEROL SULFATE 2.5 MG/3 ML* Use 3 mL via nebulizer every * GLUCOSAMINE 1500 COMPLEX ORAL Take 1 tablet by mouth once d* Problem List As Of Date 05/15/2019 Noted Resolved Sebaceous cyst [L72.3] 05/15/2007 04/16/2012 Environmental allergies [Z91.09] Asthma [J45.909] More... Arthropathy, unspecified, site unspecified [M12* Essential hypertension [I10] More... IBS (irritable bowel syndrome) [K58.9] GERD (gastroesophageal reflux disease) [K21.9] More... Migraine [G43.909] More... Diverticulitis [K57.92] Hyperlipidemia, mixed [E78.2] More... Fracture of finger, middle or proximal phalanx,*08/28/2012 History of colon polyps [Z86.010] Chronic pain of right knee [M25.561, G89.29] 12/13/2015 Primary osteoarthritis of right knee [M17.11] 12/13/2015 BPPV (benign paroxysmal positional vertigo) [H8*04/04/2016 Bee sting allergy [Z91.030] 12/11/2017 Bilateral low back pain with bilateral sciatica*12/27/2017 More... Calculus of kidney [N20.0] 05/09/2018 More... LLQ pain [R10.32] 05/27/2018 TIA (transient ischemic attack) [G45.9] 07/29/2018 Dry skin [L85.3] 09/03/2018 Atrial fibrillation with rapid ventricular resp*12/30/2018 Prescriptions ordered this encounter Disp Refills Start End DICLOFENAC 1 % TOPICAL GEL 400 g 2 05/16/2019 Route: TOPICAL Sig: Apply 2 g to affected area four times daily. Encounter Status:Closed by KARUNA SANCHEZ PA-C on 05/16/19 progress on 2019-04 PROGRESS HNO ID: [id number] Normal 04-28-2019 [place] Author: Dwight Encarnacion [facility] Service: ? [place] Author Type: Physician ([id number]) Type: Progress Notes Filed: 04/29/2019 7:42 AM Note Text: Dwight Encarnacion MD Department of Orthopaedics Orthopaedics [address] [facility] [address] Dept: [phone] Dept April 28, 2019 CHIEF COMPLAINT: Established Patient and Knee Pain of the Ri ght Knee and Last seen 09/13/18 Monovisc injection right knee (Referred Br rossi Fong) AMB ROOMING INTAKE FLOWSHEET DATA Risk Screening Do you have concerns about personal safety or safety in the home?: No Pain Pain Level: 8 Pain Location: Knee-Right Description: Throbbing, Sharp Duration Amount of Time: 2 Duration Units: Weeks Frequency: Continuous Intervention: Medication Patient states on 04/11/19 she was going down the steps at [facility] and slipped on the ice and slid down one step hitting her right knee on the railing and then on the cement step. Seen in Urgent care a week late r after she continued to have pain and swelling. Patient is having pain on the medial aspect and below her knee cap. Patient states the swelling h as gone down but still having some swelling. Patient was released on Satu rday from the [facility] due to pneumonia. Taking Tylenol for the pa in and helps take the edge off but does not take the pain completely away . Patient had x-ray done on 04/18/19. Patient states at times her knee feel s like it is going to buckle and give out on her. Patient takes 2 mg Coum danny daily. Referred by Lu Fong. ASSESSMENT: S89.91XA Right knee injury, initial encounter M17.11 Osteoarthritis of right knee, unspecified osteoarthri tis type PLAN: It appears she had a bit of an exacerbation of her knee oste oarthritis secondary to a fall with some swelling. We will try a bit of a strengthening program as well as a supportive brace for now. Ms. Romain Bailey was advised as to contrast therapies and /or to take analgesics/anti-inflammatories as needed and all contraindic ations were reviewed. OBJECTIVE: Ms. Romain Bailey is a pleasant 69 year old in no apparent distress. Gen:There were no vitals taken for this visit. nl development, non obese, no deformities ENT: Normocephalic, normal hearing, moist mucosa CV: Pulses:DP/PT= 2+ and symmetric, capillary refill < 2 sec s, no peripheral edema/varicosities Skin: no rash, bruising or lesions. Good turgor. Psych: cooperative and appropriate, alert and oriented x 3, good mood and affect. Musculoskeletal: Mild effusion of the right knee compared to the left. Persis tent tenderness to palpation over the medial joint line and dista l femoral condyle. No crepitance with range of motion. Range of motion is 0?120 degrees. Neurovascular exam is intact right lower extremity. Imaging: IMPRESSION: Severe degenerative changes in the RIGHT knee and mild degen erative changes in the LEFT knee. Fork Operator: PSCB ? Transcribe Date/Time: Apr 08 2019 ?9:12A Dictated by : YOEL ESTRADA, DO This examination was interpreted and the report reviewed and electronically signed by: YOEL ESTRADA, DO on Apr 08 2019 ?9:13AM ?EST Results-Findings * * *Final Report* * * DATE OF EXAM: Apr 08 2019 ?8:50AM ? WOX ? [id number] ?- ?XR KNEE 4V AP/PA BOTH+LAT/RUBI RT ?/ PROCEDURE REASON: Right knee injury, initial encounter ?? ? * * * * Physician Interpretation * * * * ?RIGHT knee HISTORY: ?69 years old Clinical information: Right knee injury, initial encounter TECHNIQUE: Images: ?XR KNEE 4V AP/PA BOTH+LAT/RUBI RT . Comparison: 08/05/2018 RESULT: Findings: Marked bony demineralization noted. Right : ?No fractures or dislocations are seen. There is again noted be severe narrowing of the medial francesca rtment. ? Cystic areas in the medial aspect of the medial femoral cond yle probably degenerative. ?Marked narrowing patellofemoral compartment w ith large amount of spurring along the posterior aspect of patella. ?T here appears to be a small joint effusion suprapatellar bursa Left : ?No fractures or dislocations are seen. Mild narrowing medial lateral compartments Supporting Subjective Information Below: Past Surgical History: PAST SURGICAL HISTORY Procedure Laterality Date - COLONOSCOP W/ OR W/O BRSH SPEC 05/29/2018 Colonoscopy - COLONOSCOPY AND POLYPECTOMY 12/03/2013 tubular adenoma, hyperplastic polyp; repeat due in 5y - DEBRIDE SKIN AND SUBQ TISSU 05/15/07 Debridement infected moira cyst upper mid back - PAST SURGICAL HISTORY OF 1984 metal removed from right tibial area - PAST SURGICAL HISTORY OF [facility] - REMOVAL GALLBLADDER ~2003 Cholecystectomy laparoscopic - TOTAL ABDOM HYSTERECTOMY 1999 MAURICE/BSO-pain, no abnormal paps Medications: Current Outpatient Medications Medication Sig - levoFLOXacin (LEVAQUIN) 500 mg tablet Take 500 mg by mouth once daily. - guaiFENesin (MUCINEX) 1,200 mg Ta12 Take by mouth twice da tiffanie. - ondansetron orally disintegrating (ZOFRAN ODT) 4 mg disint egrating tablet DISSOLVE 1 TABLET ON THE TONGUE EVERY 6 HOURS NEED ED FOR NAUSEA/VOMITING - warfarin (COUMADIN) 2 mg tablet Take 2 mg by mouth. - EPINEPHrine (AUVI-Q) 0.3 mg/0.3 mL auto-injector Inject 0. 3 mL intramuscularly as needed. - albuterol HFA (VENTOLIN HFA) 90 mcg/actuation inhaler Inha le 2 Puffs as instructed every 6 hours as needed. - fluticasone-salmeterol (ADVAIR DISKUS) 100-50 mcg/dose dsd v Inhale 1 Puff as instructed twice daily. RINSE AND GARGLE MOUTH WITH WATER AFTER EACH USE. - meclizine (ANTIVERT) 25 mg tab Take 1 tablet by mouth ever y 6 hours as needed (dizziness). - fluticasone (FLONASE) 50 mcg/actuation nasal spray Use 2 S prays in each nostril once daily. - benzonatate (TESSALON PERLES) 100 mg capsule Take 2 capsul es by mouth three times daily as needed. - atorvastatin (LIPITOR) 40 mg tablet Take 1 tablet by mouth once daily. - pantoprazole DR (PROTONIX) 20 mg tablet Take 1 tablet by m outh daily before breakfast. Take on empty stomach, 1/2 hr before meal. - bifidobacteri bifid.and longum (FLORAJEN BIFIDOBLEND) 460 mg (9-1 bill.cell) cap Take 1 capsule by mouth once daily. - amiodarone (PACERONE) 200 mg tablet Take 200 mg by mouth o nce daily. - metoprolol tartrate, short acting, (LOPRESSOR) 25 mg table t Take 12.5 mg by mouth twice daily. - verapamil SR (CALAN SR, ISOPTIN SR) 240 mg CR tablet TAKE 1 TABLET BY MOUTH EVERYDAY AT BEDTIME - ammonium lactate (LAC-HYDRIN) 12 % lotion Apply 1 applicat ion to affected area as needed for Dry Skin (arms). - thiamine mononitrate (VITAMIN B1) 100 mg tab Take 1 tablet by mouth once daily. - cycloSPORINE (RESTASIS) 0.05 % ophthalmic emulsion Use 1 D rop in both eyes twice daily. Both eyes. - loratadine (CLARITIN) 10 mg tablet Take 1 tablet by mouth once daily. - Nebulizer NEBULIZER FOR HOME USE. DX: J45.20 - albuterol (PROVENTIL) 2.5 mg /3 mL (0.083 %) nebulizer leda ution Use 3 mL via nebulizer every 4 hours as needed for Wheezing/Shortness of Breath. Use over 5-15minutes. - nitrofurantoin monohydrate and macrocrystal (MACROBID) 100 mg capsule Take 1 capsule by mouth twice daily with meals for 7 days. ( Patient not taking: Reported on 04/28/2019 ) - meloxicam (MOBIC) 15 mg tablet Take 1 tablet by mouth once daily. With food. (Patient not taking: Reported on 04/28/2019 ) - ELIQUIS 5 mg tab(s) Take 5 mg by mouth twice daily. - GLUC BARR/CHONDRO BARR A/VIT C/MN (GLUCOSAMINE 1500 COMPLEX OR AL) Take 1 tablet by mouth once daily. No current facility-administered medications for this visit. Allergies: Adhesive Tape (Rosins); Bactrim Ds [Sulfamethoxazole-Trimethoprim]; Bee Sting; Darvon [Propoxyp hene Hcl]; Influenza Virus Vaccines; Prednisone ROS: General (negative for fatigue, malaise, weight loss/gain) HEENT (negative for headache, earache, recent vision changes , sinus pain, sore throat) Respiratory (no recent shortness of breath, hem optysis) CV (negative for chest tightness, palpitations) Musculoskeletal (see HPI) Psych (no depression, anxiety) This note was partially generated using Simply[employer] Periscape system, and there may be some incorrect words, spellings, and punctu ation that were not noted in checking the note before saving. Dwight Encarnacion MD cnov on 2019-04-28 CNOV Office Visit (MEDWS) Normal 04-28-19 20 [place] [facility] ROMAIN BAILEY ([id number]) 1950 [facility] Date Time Provider Department ([id number]) 04/28/19 1:30 PM DWIGHT ENCARNACION During your visit today, we recorded the following informati on about you: Dwight Encarnacion MD 04/29/2019 7:42 AM Signed Dwight Encarnacion MD Department of Orthopaedics Orthopaedics [address] [facility] [address] Dept: [phone] Dept April 28, 2019 CHIEF COMPLAINT: Established Patient and Knee Pa in of the Right Knee and Last seen 09/13/18 Monovisc injection right knee (Referred Brittan y Baloun) AMB ROOMING INTAKE FLOWSHEET DATA Risk Screening Do you have concerns about personal safety or safety in the home?: No Pain Pain Level: 8 Pain Location: Knee-Right Description: Throbbing, Sharp Duration Amount of Time: 2 Duration Units: Weeks Frequency: Continuous Intervention: Medication Patient states on 04/11/19 she was going down the steps at home and slipped on the ice and slid down one step hitting her right knee on the railing and then on the cement step. Seen in Urgent care a week later after she continued to have pain and swelling. Patient is having pain o n the medial aspect and below her knee cap. Patient states the swelling has go ne down but still having some swelling. Patient was released on Sunday from the [facility] due to pneumonia. Taking Tylenol fo r the pain and helps take the edge off but does not take the pain completely away. Patient had x-ray done on 03/30 03/17. Patient states at times her knee feels like it i s going to buckle and give out on her. Patient takes 2 mg Coumadin daily. Referred by Lu márquez. ASSESSMENT: S89.91XA Right knee injury, initial encounter M17.11 Osteoarthritis of right knee, unspecified osteoarthri tis type PLAN: It appears she had a bit of an exacerbation of her knee oste oarthritis secondary to a fall with some swelling. We will try a bit of a strengthening program as well as a supportive brace for now. Ms. Romain Bailey was advised as to contrast therapies and /or to take analgesics/anti-inflammatories as needed and all contraindic ations were reviewed. OBJECTIVE: Ms. Romain Bailey is a pleasant 69 year old in no apparent distress. Gen:There were no vitals taken for this visit. nl development, non obese, no deformities ENT: Normocephalic, normal hearing, moist mucosa CV: Pulses:DP/PT= 2+ and symmetric, capillary refill < 2 secs, no peripheral edema/varicosities Skin: no rash, bruising or lesions. Good turgor. Psych: cooperative and appropriate, alert and oriented x 3, good mood and affect. Musculoskeletal: Mild effusion of the right knee compared to the left. Persistent tenderness to palpation over the medial joint line and distal femoral condyle. No crepitance with range of motion. Range of motion is 0?120 d egrees. Neurovascular exam is intact right lower extremity. Imaging: IMPRESSION: Severe degenerative changes in the RIGHT knee and mild degen erative changes in the LEFT knee. Fork Operator: ROSITA ? Transcribe Date/Time: Apr 08 2019 ?9:12A Dictated by : YOEL ESTRADA, DO This examination was interpreted and the report reviewed and electronically signed by: YOEL ESTRADA, DO on Apr 08 2019 ?9:13AM ?EST Results-Findings * * *Final Report* * * DATE OF EXAM: Apr 08 2019 ?8:50AM ? WOX ? 5203 ?- ?XR KNEE 4V AP/PA BOTH+LAT/RUBI RT ?/ PROCEDURE REASON: Right knee injury, initial encounter ?? ? * * * * Physician Interpretation * * * * ?RIGHT knee HISTORY: ?69 years old Clinical information: Right knee injury, initial encounter TECHNIQUE: Images: ?XR KNEE 4V AP/PA BOTH+LAT/RUBI RT . Comparison: 08/05/2018 RESULT: Findings: Marked bony demineralization noted. Right : ?No fractures or dislocations are seen. There is again noted be severe narrowing of the medial francesca rtment. ? Cystic areas in the medial aspect of the medial femoral cond yle probably degenerative. ?Marked narrowing patellofemoral compartment w ith large amount of spurring along the posterior aspect of patella. ?T here appears to be a small joint effusion suprapatellar bursa Left : ?No fractures or dislocations are seen. Mild narrowing medial lateral compartments Supporting Subjective Information Below: Past Surgical History: PAST SURGICAL HISTORY Procedure Laterality Date - COLONOSCOP W/ OR W/O BRSH SPEC 05/29/2018 Colonoscopy - COLONOSCOPY AND POLYPECTOMY 12/03/2013 tubular adenoma, hyperplastic polyp; repeat due in 5y - DEBRIDE SKIN AND SUBQ TISSU 05/15/07 Debridement infected moira cyst upper mid back - PAST SURGICAL HISTORY OF 1984 metal removed from right tibial area - PAST SURGICAL HISTORY OF D[facility]C - REMOVAL GALLBLADDER ~2003 Cholecystectomy laparoscopic - TOTAL ABDOM HYSTERECTOMY 1999 MAURICE/BSO-pain, no abnormal paps Medications: Current Outpatient Medications Medication Sig - levoFLOXacin (LEVAQUIN) 500 mg tablet Take 500 mg by mouth once daily. - guaiFENesin (MUCINEX) 1,200 mg Ta12 Take by mouth twice da tiffanie. - ondansetron orally disintegrating (ZOFRAN ODT) 4 mg disi ntegrating tablet DISSOLVE 1 TABLET ON THE TONGUE EVERY 6 HOURS NEEDED FO R NAUSEA/VOMITING - warfarin (COUMADIN) 2 mg tablet Take 2 mg by mouth. - EPINEPHrine (AUVI-Q) 0.3 mg/0.3 mL auto-injector Inject 0. 3 mL intramuscularly as needed. - albuterol HFA (VENTOLIN HFA) 90 mcg/actuation inhaler Inha le 2 Puffs as instructed every 6 hours as needed. - fluticasone-salmeterol (ADVAIR DISKUS) 100-50 mcg/dose dsdv Inhale 1 Puff as instructed twice daily. RINSE AND GARGLE MOUTH WITH WATER AF TER EACH USE. - meclizine (ANTIVERT) 25 mg tab Take 1 tablet by mouth every 6 hours as needed (dizziness). - fluticasone (FLONASE) 50 mcg/actuation nasal spray Use 2 S prays in each nostril once daily. - benzonatate (TESSALON PERLES) 100 mg capsule T zaheer 2 capsules by mouth three times daily as needed. - atorvastatin (LIPITOR) 40 mg tablet Take 1 tablet by mouth once daily. - pantoprazole DR (PROTONIX) 20 mg tablet Take 1 tablet by mouth daily before breakfast. Take on empty stomach, 1/2 hr before meal. - bifidobacteri bifid.and longum (FLORAJ EN BIFIDOBLEND) 460 mg (9-1 bill.cell) cap Take 1 capsule by mouth once daily. - amiodarone (PACERONE) 200 mg tablet Take 200 mg by mouth o nce daily. - metoprolol tartrate, short acting, (LOPRESSOR) 25 mg tablet Take 12.5 mg by mouth twice daily. - verapamil SR (CALAN SR, ISOPTIN SR) 240 mg CR tablet TAKE 1 TABLET BY MOUTH EVERYDAY AT BEDTIME - ammonium lactate (LAC-HYDRIN) 12 % lotion Apply 1 applic ation to affected area as needed for Dry Skin (arms). - thiamine mononitrate (VITAMIN B1) 100 mg tab Take 1 tablet by mouth once daily. - cycloSPORINE (RESTASIS) 0.05 % ophthalmic emulsion U se 1 Drop in both eyes twice daily. Both eyes. - loratadine (CLARITIN) 10 mg tablet Take 1 tablet by mouth once daily. - Nebulizer NEBULIZER FOR HOME USE. DX: J45.20 - albuterol (PROVENTIL) 2.5 mg /3 mL (0. 083 %) nebulizer solution Use 3 mL via nebulizer every 4 hours as needed for Wheezing/Shortne ss of Breath. Use over 5-15minutes. - nitrofurantoin monohydrate and macrocr ystal (MACROBID) 100 mg capsule Take 1 capsule by mouth twice daily with meals for 7 days. (Patient not taking: Reported on 04/28/2019 ) - meloxicam (MOBIC) 15 mg tablet Take 1 tablet by mouth once daily. With food. (Patient not taking: Reported on 04/28/2019 ) - ELIQUIS 5 mg tab(s) Take 5 mg by mouth twice daily. - GLUC BARR/CHONDRO BARR A/VIT C/MN (GLUCOSAMINE 150 0 COMPLEX ORAL) Take 1 tablet by mouth once daily. No current facility-administered medications for this visit. Allergies: Adhesive Tape (Rosins); Bactr im Ds [Sulfamethoxazole-Trimethoprim]; Bee Sting; Darvon [Propoxyphene Hcl]; Influenza Virus Vaccin es; Prednisone ROS: General (negative for fatigue, malaise, weight loss/gain) HEENT (negative for headache, earache, r ecent vision changes, sinus pain, sore throat) Respiratory (no recent shortness of breath, hemoptys is) CV (negative for chest tightness, palpitations) Musculoskeletal (see HPI) Psych (no depression, anxiety) This note was partially generated using Friend[employer] Wager App r ecognition system, and there may be some incorrect words, spellings, and punctuat ion that were not noted in checking the note before saving. Dwight Encarnacion MD Referring Provider: LU FONG [[id number]] Allergies As of Date: 04/28/2019 Noted Allergy Reaction ADHESIVE TAPE (ROSINS) 12/05/2016 2 - Rash BACTRIM DS (SULFAMETHOXAZOLE-TRIM*12/29/2014 10 - Anaphylaxi s Comments: Difficulty breathing, fever, chills BEE STING 08/28/2012 10 - Anaphylaxis DARVON (PROPOXYPHENE HCL) 05/15/2007 INFLUENZA VIRUS VACCINES 01/07/2019 14 - Other: See Comments Comments: Chest tightness, arm swelling. PREDNISONE 03/07/2016 8 - GI Upset Date Reviewed: 04/28/2019 Reviewed by: Camilla Rubin Ma - Fully Assessed Reason for Visit: Last seen 09/13/18 Monovisc injection right knee [Other] Cmt: Referred Lu Baloun Established Patient [175] Knee Pain [132] Visit Diagnoses:Right knee injury, initial encounter [S89.91 XA] Osteoarthritis of right knee, unspecified osteoarthritis typ e [M17.11] Order(s):CONSULT TO ORTHOPAEDICS [9055] Order #: [id number] ty: 1 traMADol (ULTRAM) 50 mg tabletTake 1 tablet by mouth every 6 hours as needed for up to 7 days.Disp: 28 tabletRfl: 0 Prescriptions as of 04/28/2019 Sig: LEVOFLOXACIN 500 MG TABLET Take 500 mg by mouth once pancho* MUCINEX 1,200 MG TABLET, EXTE* Take by mouth twice daily. ONDANSETRON 4 MG DISINTEGRATI* DISSOLVE 1 TABLET ON THE TONG * WARFARIN 2 MG TABLET Take 2 mg by mouth. EPINEPHRINE 0.3 MG/0.3 ML INJ* Inject 0.3 mL intramuscularly * ALBUTEROL SULFATE HFA 90 MCG/* Inhale 2 Puffs as instructed * FLUTICASONE 100 MCG-SALMETERO* Inhale 1 Puff as instructed t * MECLIZINE 25 MG TABLET Take 1 tablet by mouth every * FLUTICASONE PROPIONATE 50 MCG* Use 2 Sprays in each nostril * BENZONATATE 100 MG CAPSULE Take 2 capsules by mouth thre* ATORVASTATIN 40 MG TABLET Take 1 tablet by mouth once d* PANTOPRAZOLE 20 MG TABLET,DEL* Take 1 tablet by mouth daily * FLORAJEN BIFIDOBLEND 460 MG (* Take 1 capsule by mouth once * AMIODARONE 200 MG TABLET Take 200 mg by mouth once pancho* METOPROLOL TARTRATE 25 MG TAB* Take 12.5 mg by mouth twice d * VERAPAMIL ER (SR) 240 MG TABL* TAKE 1 TABLET BY MOUTH EVERYD * AMMONIUM LACTATE 12 % LOTION Apply 1 application to affect* THIAMINE MONONITRATE (VITAMIN* Take 1 tablet by mouth once d * CYCLOSPORINE 0.05 % EYE DROPS* Use 1 Drop in both eyes twice * LORATADINE 10 MG TABLET Take 1 tablet by mouth once d* COMPOUNDED PRESCRIPTION NEBULIZER FOR HOME USE. DX: * ALBUTEROL SULFATE 2.5 MG/3 ML* Use 3 mL via nebulizer every * TRAMADOL 50 MG TABLET Take 1 tablet by mouth every * NITROFURANTOIN MONOHYDRATE AND * Take 1 capsule by mouth twi ce* Patient not taking: Reported on 04/28/2019 MELOXICAM 15 MG TABLET Take 1 tablet by mouth once d* Patient not taking: Reported on 04/28/2019 ELIQUIS 5 MG TABLET Take 5 mg by mouth twice ellie* GLUCOSAMINE 1500 COMPLEX ORAL Take 1 tablet by mouth once d* Problem List As Of Date 04/28/2019 Noted Resolved Sebaceous cyst [L72.3] 05/15/2007 04/16/2012 Environmental allergies [Z91.09] Asthma [J45.909] More... Arthropathy, unspecified, site unspecified [M12* Essential hypertension [I10] More... IBS (irritable bowel syndrome) [K58.9] GERD (gastroesophageal reflux disease) [K21.9] More... Migraine [G43.909] More... Diverticulitis [K57.92] Hyperlipidemia, mixed [E78.2] More... Fracture of finger, middle or proximal phalanx,*08/28/2012 History of colon polyps [Z86.010] Chronic pain of right knee [M25.561, G89.29] 12/13/2015 Primary osteoarthritis of right knee [M17.11] 12/13/2015 BPPV (benign paroxysmal positional vertigo) [H8*04/04/2016 Bee sting allergy [Z91.030] 12/11/2017 Bilateral low back pain with bilateral sciatica*12/27/2017 More... Calculus of kidney [N20.0] 05/09/2018 More... LLQ pain [R10.32] 05/27/2018 TIA (transient ischemic attack) [G45.9] 07/29/2018 Dry skin [L85.3] 09/03/2018 Atrial fibrillation with rapid ventricular resp*12/30/2018 Prescriptions ordered this encounter Disp Refills Start End TRAMADOL 50 MG TABLET 28 t* 0 04/28/2019 05/05/2019 Route: ORAL Sig: Take 1 tablet by mouth every 6 hours as needed for up t o 7 days. Letter Text Encounter Status:Closed by DWIGHT ENCARNACION MD on 04/29/19 urine culture on 17-04-25 Bacteria Sp. Request/Comment: - Specimen received in preservative Critically 04-23-2019 [place] identified Cx Nom Culture Result - 10,000 - <5 0,000 CFU/ml Lactose negative gram negative bacilli --> ABNORMAL ALERT Insignificant colony count. No further workup. --> ABNORMAL ALERT <10,000 CFU/ml Normal [facility] [place] ([id number]) Comment: Performed By: #### URCUL ### #[facility] [id number] [place], [place] [phone] progress on 2019-03 PROGRESS HNO ID: [id number] Normal 04-23-2019 [facility] Author: Jazmín giles ([id number]) Service: ? Author Type: Nurse Practitioner Type: Progress Notes Filed: 04/23/2019 9:45 AM Note Text: Subjective HPI HPI Romain Bailey is a 69 year old female who presents tod for CC of burning with urination that started in the past 24 hours, sh e is also having frequency. She denies fever, chills, body aches or lo wer back pain. She has a h/o kidney stones. BP 132/68 Pulse 76 Temp 36.2 ?C (97.1 ?F) (Tympanic) R anita 16 Wt 85.3 kg (188 lb) BMI 30.34 kg/m? Social History Tobacco Use - Smoking status: Never Smoker - Smokeless tobacco: Never Used Substance Use Topics - Alcohol use: No - Drug use: No PAST MEDICAL HISTORY Diagnosis Date - Arthropathy, unspecified, site unspecified - Asthma - Back pain - Calculus of kidney 05/09/2018 - Colon polyps 2013 - Diverticulitis 2000 - Environmental allergies - GERD (gastroesophageal reflux disease) - Hyperlipidemia lifestyle controlled - Hypertension - IBS (irritable bowel syndrome) - Migraine - Obesity I have confirmed and edited as necessary, the [facility] Review of Systems Constitutional: Negative for chills and fever. Gastrointestinal: Negative for abdominal pain. Genitourinary: Positive for dysuria and frequency. Negative for flank pain, hematuria and urgency. Objective Physical Exam Constitutional: She is oriented to person, place, and time a nd well-developed, well-nourished, and in no distress. Abdominal: Normal appearance and bowel sounds are normal. Sh e exhibits no abdominal bruit, no pulsatile midline mass and no mass. Ther e is no hepatosplenomegaly. There is no abdominal tenderness. There is no rigidity, no rebound, no guarding, no CVA tenderness, no ten derness at McBurney's point and negative Arceo's sign. Neurological: She is alert and oriented to person, place, an d time. Psychiatric: Affect normal. Nursing note and vitals reviewed. ASSESSMENT/PLAN: 1. Urinary frequency - ICD9: 788.41, ICD10: R35.0 (primary d iagnosis) -Avoid alcohol and caffeine as these are bladder irritants a nd may make symptoms worse. -You can take OTC AZO if needed for painful urination but no t for longer then 2 days. Urinary tract infection (UTI) We will send the urine for culture, which shows us what orga nism, if any, we are treating. If we need to change the antibiotic coverage, you will recei ve a call in 48-72 hours. * Seek medical care immediately, call 911, or go to ER if yo u have high fevers, severe flank or low back pain, blood in your urine. * Follow up with primary care provider if symptoms persist o r worsen. 2. Acute UTI - ICD9: 599.0, ICD10: N39.0 acute - UA positive for radha esterase, hematuria and proteinuria - Send urine for culture - Begin treatment with Macrobid 100 mg BID for 7 days - Patient education for prevention given - URINE CULTURE Diagnosis and treatment plan were discussed and questions we re answered to the patient's satisfaction. Pt acknowledged understanding of concepts and follow up plan. Specific signs and symptoms that would indicate the need for higher level of care were discussed in detail warranting prompt ER evalua tion. Jazmín Hernandez APRN.GIOVANNA elizabeth on 2019-04-23 CNOV Office Visit (UCWSTR) Normal 04-23-19 [place] [facility] ROMAIN BAILEY ([id number]) 1950 [place] Date Time Provider Department ([id number]) 04/23/19 8:30 AM JAZMÍN HERNANDEZ During your visit today, we recorded the following informati on about you: Temperature Pulse Respiration Blood pressure 97.1 degrees 76/minute 16/minute 132/68 Weight 85.3 kg Jazmín Hernandez APRN.CNP 04/23/2019 9:45 AM Signed Subjective HPI HPI Romain Bailey is a 69 year old female who presents tod ay for CC of burning with urination that started in the past 24 kevin rs, she is also having frequency. She denies fever, chills, body aches or lower back pain. She has a h/o kidney stones. BP 132/68 Pulse 76 Temp 36.2 ?C (97.1 ?F) (Tympanic) R anita 16 Wt 85.3 kg (188 lb) BMI 30.34 kg/m? Social History Tobacco Use - Smoking status: Never Smoker - Smokeless tobacco: Never Used Substance Use Topics - Alcohol use: No - Drug use: No PAST MEDICAL HISTORY Diagnosis Date - Arthropathy, unspecified, site unspecified - Asthma - Back pain - Calculus of kidney 05/09/2018 - Colon polyps 2013 - Diverticulitis 2000 - Environmental allergies - GERD (gastroesophageal reflux disease) - Hyperlipidemia lifestyle controlled - Hypertension - IBS (irritable bowel syndrome) - Migraine - Obesity I have confirmed and edited as necessary, the [facility] Review of Systems Constitutional: Negative for chills and fever. Gastrointestinal: Negative for abdominal pain. Genitourinary: Positive for dysuria and frequency. Negativ e for flank pain, hematuria and urgency. Objective Physical Exam Constitutional: She is oriented to perso n, place, and time and well-developed, well-nourished, and in no distress. Abdominal: Normal appearance and bowel sounds are normal. Sh e exhibits no abdominal bruit, no pulsatile midline mass and no mass. Ther e is no hepatosplenomegaly. There is no abdomina l tenderness. There is no rigidity, no rebound, no guarding, no CVA tenderness, no tenderness at McBurney's point and negative Arceo's sign. Neurological: She is alert and oriented to person, place, an d time. Psychiatric: Affect normal. Nursing note and vitals reviewed. ASSESSMENT/PLAN: 1. Urinary frequency - ICD9: 788.41, ICD10: R35.0 (primary d iagnosis) -Avoid alcohol and caffeine as these are bladder irritants a nd may make symptoms worse. -You can take OTC AZO if nee ded for painful urination but not for longer then 2 days. Urinary tract infection (UTI) We will send the urine for culture, which shows us wha t organism, if any, we are treating. If we need to change the antibiotic cove rage, you will receive a call in 48-72 hours. * Seek medical care immediat sejal, call 911, or go to ER if you have high fevers, severe flank or low back pain, blood in your urine. * Follow up with primary care provider if symptoms persist o r worsen. 2. Acute UTI - ICD9: 599.0, ICD10: N39.0 acute - UA positive for radha esterase, hematuria and proteinuria - Send urine for culture - Begin treatment with Macrobid 100 mg BID for 7 days - Patient education for prevention given - URINE CULTURE Diagnosis and treatment plan were discus sed and questions were answered to the patient's satisfaction. Pt a cknowledged understanding of concepts and follow up plan. Specific signs and symptoms that would indicate the ms ed for higher level of care were discussed in detail warranting prompt ER evaluatio n. Jazmín Hernandez APRN.GIOVANNA Hernandez APRN.GIOVANNA 04/23/2019 9:16 AM Signed -Avoid alcohol and caffeine as these are bladder irritants a nd may make symptoms worse. -You can take OTC AZO if nee ded for painful urination but not for longer then 2 days. Urinary tract infection (UTI) We will send the urine for culture, which shows us wha t organism, if any, we are treating. If we need to change the antibiotic cove rage, you will receive a call in 48-72 hours. * Seek medical care immediat sejal, call 911, or go to ER if you have high fevers, severe flank or low back pain, blood in your urine. * Follow up with primary care provider if symptoms persist o r worsen. Referring Provider: SELF [[id number]] Allergies As of Date: 04/23/2019 Noted Allergy Reaction ADHESIVE TAPE (ROSINS) 12/05/2016 2 - Rash BACTRIM DS (SULFAMETHOXAZOLE-TRIM*12/29/2014 10 - Anaphylaxi s Comments: Difficulty breathing, fever, chills BEE STING 08/28/2012 10 - Anaphylaxis DARVON (PROPOXYPHENE HCL) 05/15/2007 INFLUENZA VIRUS VACCINES 01/07/2019 14 - Other: See Comments Comments: Chest tightness, arm swelling. PREDNISONE 03/07/2016 8 - GI Upset Date Reviewed: 04/23/2019 Reviewed by: Keri Paul Ma - Fully Assessed Reason for Visit: Urinary Frequency [1086] Cmt: x 1 day Primary Visit Diagnosis:Urinary frequency [R35.0] Other Visit Diagnosis:Acute UTI [N39.0] Order(s):UA DIP, URINE (POC) [[id number]] Order #: [id number] ec. #:[id number] URINE CULTURE [SQURCUL] Order #: [id number] nitrofurantoin monohydrate and macrocrystal (MACROBID) 100 m g capsuleTake 1 capsule by mouth twice daily with meals for 7 days.Disp: 14 capsuleRfl: 0 Prescriptions as of 04/23/2019 Sig: MELOXICAM 15 MG TABLET Take 1 tablet by mouth once d* ONDANSETRON 4 MG DISINTEGRATI* DISSOLVE 1 TABLET ON THE TONG * WARFARIN 2 MG TABLET Take 2 mg by mouth. EPINEPHRINE 0.3 MG/0.3 ML INJ* Inject 0.3 mL intramuscularly * ALBUTEROL SULFATE HFA 90 MCG/* Inhale 2 Puffs as instructed * FLUTICASONE 100 MCG-SALMETERO* Inhale 1 Puff as instructed t * MECLIZINE 25 MG TABLET Take 1 tablet by mouth every * FLUTICASONE PROPIONATE 50 MCG* Use 2 Sprays in each nostril * BENZONATATE 100 MG CAPSULE Take 2 capsules by mouth thre* ATORVASTATIN 40 MG TABLET Take 1 tablet by mouth once d* PANTOPRAZOLE 20 MG TABLET,DEL* Take 1 tablet by mouth daily * FLORAJEN BIFIDOBLEND 460 MG (* Take 1 capsule by mouth once * AMIODARONE 200 MG TABLET Take 200 mg by mouth once pancho* ELIQUIS 5 MG TABLET Take 5 mg by mouth twice ellie* METOPROLOL TARTRATE 25 MG TAB* Take 12.5 mg by mouth twice d * VERAPAMIL ER (SR) 240 MG TABL* TAKE 1 TABLET BY MOUTH EVERYD * AMMONIUM LACTATE 12 % LOTION Apply 1 application to affect* THIAMINE MONONITRATE (VITAMIN* Take 1 tablet by mouth once d * CYCLOSPORINE 0.05 % EYE DROPS* Use 1 Drop in both eyes twice * LORATADINE 10 MG TABLET Take 1 tablet by mouth once d* COMPOUNDED PRESCRIPTION NEBULIZER FOR HOME USE. DX: * ALBUTEROL SULFATE 2.5 MG/3 ML* Use 3 mL via nebulizer every * GLUCOSAMINE 1500 COMPLEX ORAL Take 1 tablet by mouth once d* NITROFURANTOIN MONOHYDRATE AND * Take 1 capsule by mouth twi ce* Problem List As Of Date 04/23/2019 Noted Resolved Sebaceous cyst [L72.3] 05/15/2007 04/16/2012 Environmental allergies [Z91.09] Asthma [J45.909] More... Arthropathy, unspecified, site unspecified [M12* Essential hypertension [I10] More... IBS (irritable bowel syndrome) [K58.9] GERD (gastroesophageal reflux disease) [K21.9] More... Migraine [G43.909] More... Diverticulitis [K57.92] Hyperlipidemia, mixed [E78.2] More... Fracture of finger, middle or proximal phalanx,*08/28/2012 History of colon polyps [Z86.010] Chronic pain of right knee [M25.561, G89.29] 12/13/2015 Primary osteoarthritis of right knee [M17.11] 12/13/2015 BPPV (benign paroxysmal positional vertigo) [H8*04/04/2016 Bee sting allergy [Z91.030] 12/11/2017 Bilateral low back pain with bilateral sciatica*12/27/2017 More... Calculus of kidney [N20.0] 05/09/2018 More... LLQ pain [R10.32] 05/27/2018 TIA (transient ischemic attack) [G45.9] 07/29/2018 Dry skin [L85.3] 09/03/2018 Atrial fibrillation with rapid ventricular resp*12/30/2018 Other instructions from your clinician: -Avoid alcohol and caffeine as these are bladder irritants a nd may make symptoms worse. -You can take OTC AZO if needed for painful urination but no t for longer then 2 days. Urinary tract infection (UTI) We will send the urine for culture, which shows us what orga nism, if any, we are treating. If we need to change the antibiotic coverage, you will recei ve a call in 48-72 hours. * Seek medical care immediately, call 911, or go to ER if yo u have high fevers, severe flank or low back pain, blood in your urine. * Follow up with primary care provider if symptoms persist o r worsen. Prescriptions ordered this encounter Disp Refills Start End NITROFURANTOIN MONOHYDRATE AND MACROCR* 14 c* 0 04/23/2019 0 04/30/2019 Route: ORAL Sig: Take 1 capsule by mouth twice daily with meals for 7 da ys. Medications Discontinued During This Encounter nitrofurantoin monohydrate and macro* 10 c* 0 02/09/201903/30 Route: ORAL Sig: Take 1 capsule by mouth twice daily. Patient not taking: Reported on 04/08/2019 Disc: Reason for discontinue is not on file. Encounter Status:Closed by JAZMÍN HERNANDEZ CNP on 04/23/19 xr knee 4v ap/pa both+lat/rubi rt on 2019-04-08 XR KNEE 4V AP/PA * * *Final Report* * * Normal 04-08-2019 [place] BOTH+LAT/RUBI RT DATE OF EXAM: Apr 08 2019 8:50AM Clinic WOX [id number] - XR KNEE 4V AP/PA BOTH+LAT/RUBI RT / [id number] [place] PROCEDURE REASON: Right knee injury, initial encounter ([id number]) * * * * Physician Interpretation * * * * RIGHT knee HISTORY: 69 years old Clinical information: Right knee injury, initial encounter TECHNIQUE: Images: XR KNEE 4V AP/PA BOTH+LAT/RUBI RT . Comparison: 08/05/2018 RESULT: Findings: Marked bony demineralization noted. Right : No fractures or dislocations are seen. There is again noted be severe narrowing of the medial francesca rtment. Cystic areas in the medial aspect of the medial femoral cond yle probably degenerative. Marked narrowing patellofemoral compartment wi th large amount of spurring along the posterior aspect of patella. Th ere appears to be a small joint effusion suprapatellar bursa Left : No fractures or dislocations are seen. Mild narrowing medial lateral compartments IMPRESSION: Severe degenerative changes in the RIGHT knee and mild degen erative changes in the LEFT knee. Fork Operator: PSCB Transcribe Date/Time: Apr 08 2019 9:12A Dictated by : YOEL ESTRADA DO This examination was interpreted and the report reviewed and electronically signed by: YOEL ESTRADA DO on Apr 08 2019 9:13AM EST [id number] progress on 2019-03 PROGRESS HNO ID: [id number] Normal 04-08-2019 [facility] Author: Kevin Little () Myriam Ramirez [place] ([id number]) Service: ? Author Type: Security Installation Sales Technician Type: Progress Notes Filed: 04/08/2019 8:50 AM Note Text: Radiology Service Progress Note PATIENT NAME: Romain Bailey DATE OF SERVICE: April 08, 2019 TIME: 8:36 AM PATIENT IDENTITY VERIFICATION COMPLETED USING TWO (2) IDENTI FIERS: Name and Date of confirmed by patient verbally. PATIENT GENDER DATA: Female. status: : No status: NO. PATIENT RELEVANT IMPLANT DATA REVIEWED: Not Applicable RADIOLOGY DEPARTMENT: General X-ray: Exam(s) Completed: Matt r Extremity X-Ray(s): Knee, AP / Lat / Tunne / Merchant Right and Wt. Be aring: PERIPHERAL IV DATA: Not applicable SIGNED BY: RT Sai April 08, 2019 8:36 AM PROGRESS HNO ID: [id number] Normal 04-08-2019 [facility] Author: Lu Fong [place] ([id number]) Service: ? Author Type: Nurse Practitioner Type: Progress Notes Filed: 04/08/2019 9:34 AM Note Text: Subjective HPI Romain Bailey is a 69 year old female who presents with ri ght knee pain after a fall 5 days ago. She was walking down some icy steps when she slipped and she fell down onto her right knee on the concret e step. The pain is rated at a 7/10. Dull and achy pain. Feels like it w ill give out at times. No history of knee injuries or surgeries. Has been taking Tylenol, applying ice and heat as needed. Review of Systems Constitutional: Negative for chills and fever. Musculoskeletal: Positive for joint pain. Neurological: Negative for tingling and sensory change. BP 122/72 Pulse 76 Temp 36.5 ?C (97.7 ?F) (Tympanic) R anita 16 Wt 83.9 kg (185 lb) BMI 29.86 kg/m? PAST MEDICAL HISTORY Diagnosis Date - Arthropathy, unspecified, site unspecified - Asthma - Back pain - Calculus of kidney 05/09/2018 - Colon polyps 2013 - Diverticulitis 2000 - Environmental allergies - GERD (gastroesophageal reflux disease) - Hyperlipidemia lifestyle controlled - Hypertension - IBS (irritable bowel syndrome) - Migraine - Obesity PAST SURGICAL HISTORY Procedure Laterality Date - COLONOSCOP W/ OR W/O BRSH SPEC 05/29/2018 Colonoscopy - COLONOSCOPY AND POLYPECTOMY 12/03/2013 tubular adenoma, hyperplastic polyp; repeat due in 5y - DEBRIDE SKIN AND SUBQ TISSU 05/15/07 Debridement infected moira cyst upper mid back - PAST SURGICAL HISTORY OF 1984 metal removed from right tibial area - PAST SURGICAL HISTORY OF DANDC - REMOVAL GALLBLADDER ~2003 Cholecystectomy laparoscopic - TOTAL ABDOM HYSTERECTOMY 1999 MAURICE/BSO-pain, no abnormal paps ALLERGIES Adhesive Tape (Rosins); Bactrim Ds [Sulfamethoxazole-Trimethoprim]; Bee Sting; Darvon [Propoxyp hene Hcl]; Influenza Virus Vaccines; Prednisone MEDICATIONS meloxicam (MOBIC) 15 mg tablet Take 1 tablet by mouth once d aily. With food. ondansetron orally disintegrating (ZOFRAN ODT) 4 mg disinteg rating tablet DISSOLVE 1 TABLET ON THE TONGUE EVERY 6 HOURS NEEDED FOR NAUSEA/VOMITING warfarin (COUMADIN) 2 mg tablet Take 2 mg by mouth. EPINEPHrine (AUVI-Q) 0.3 mg/0.3 mL auto-injector Inject 0.3 mL intramuscularly as needed. albuterol HFA (VENTOLIN HFA) 90 mcg/actuation inhaler Inhale 2 Puffs as instructed every 6 hours as needed. fluticasone-salmeterol (ADVAIR DISKUS) 100-50 mcg/dose dsdv Inhale 1 Puff as instructed twice daily. RINSE AND GARGLE MOUTH WITH WATER AFTER EACH USE. meclizine (ANTIVERT) 25 mg tab Take 1 tablet by mouth every 6 hours as needed (dizziness). fluticasone (FLONASE) 50 mcg/actuation nasal spray Use 2 Spr ays in each nostril once daily. benzonatate (TESSALON PERLES) 100 mg capsule Take 2 capsules by mouth three times daily as needed. atorvastatin (LIPITOR) 40 mg tablet Take 1 tablet by mouth o nce daily. pantoprazole DR (PROTONIX) 20 mg tablet Take 1 tablet by robert th daily before breakfast. Take on empty stomach, 1/2 hr before meal. bifidobacteri bifid.and longum (FLORAJEN BIFIDOBLEND) 460 mg (9-1 bill.cell) cap Take 1 capsule by mouth once daily. amiodarone (PACERONE) 200 mg tablet Take 200 mg by mouth onc e daily. verapamil SR (CALAN SR, ISOPTIN SR) 240 mg CR tablet TAKE 1 TABLET BY MOUTH EVERYDAY AT BEDTIME ammonium lactate (LAC-HYDRIN) 12 % lotion Apply 1 applicatio n to affected area as needed for Dry Skin (arms). thiamine mononitrate (VITAMIN B1) 100 mg tab Take 1 tablet b y mouth once daily. cycloSPORINE (RESTASIS) 0.05 % ophthalmic emulsion Use 1 Joon p in both eyes twice daily. Both eyes. loratadine (CLARITIN) 10 mg tablet Take 1 tablet by mouth on ce daily. albuterol (PROVENTIL) 2.5 mg /3 mL (0.083 %) nebulizer solut ion Use 3 mL via nebulizer every 4 hours as needed for Wheezing/Shortness of Breath. Use over 5-15minutes. nitrofurantoin monohydrate and macrocrystal (MACROBID) 100 m g capsule Take 1 capsule by mouth twice daily. ELIQUIS 5 mg tab(s) Take 5 mg by mouth twice daily. metoprolol tartrate, short acting, (LOPRESSOR) 25 mg tablet Take 12.5 mg by mouth twice daily. Nebulizer NEBULIZER FOR HOME USE. DX: J45.20 GLUC BARR/CHONDRO BARR A/VIT C/MN (GLUCOSAMINE 1500 COMPLEX ORAL ) Take 1 tablet by mouth once daily. FAMILY HISTORY Problem Relation Age of Onset - None Mother from fall - Diabetes Father - Ischemic Heart Disease Father d. [place] - Ischemic Heart Disease Maternal Grandfather d. [place] while holding her at 4mo - Blindness Brother - Heart Attack Brother Social History Tobacco Use - Smoking status: Never Smoker - Smokeless tobacco: Never Used Substance Use Topics - Alcohol use: No - Drug use: No Objective Physical Exam Constitutional: She is oriented to person, place, and time a nd well-developed, well-nourished, and in no distress. HENT: Head: Normocephalic and atraumatic. Eyes: Conjunctivae are normal. Pulmonary/Chest: Effort normal. No respiratory distress. Musculoskeletal: General: Tenderness and edema present. Comments: Right anterior knee Neurological: She is alert and oriented to person, place, an d time. No cranial nerve deficit. Gait normal. Coordination normal. Psychiatric: Mood, memory, affect and judgment normal. ASSESSMENT/PLAN: 1. Right knee injury, initial encounter - ICD9: 959.7, ICD10 : S89.91XA (primary diagnosis) - XR KNEE GENERAL 4V AP BOTH/PA BOTH/LAT/MERC RT Right : No fractures or dislocations are seen. There is again noted be severe narrowing of the medial francesca rtment. Cystic areas in the medial aspect of the medial femoral cond yle probably degenerative. Marked narrowing patellofemoral compartment wi th large amount of spurring along the posterior aspect of patella. Th ere appears to be a small joint effusion suprapatellar bursa Left : No fractures or dislocations are seen. Mild narrowing medial lateral compartments IMPRESSION IMPRESSION: Severe degenerative changes in the RIGHT knee and mild degen erative changes in the LEFT knee. Fork Operator: ROSITA Transcribe Date/Time: Apr 08 2019 9:12A Dictated by : YOEL ESTRADA, DO ? - Continue Tylenol, rest, ice, and heat as needed 2. Osteoarthritis of right knee, unspecified osteoarthritis type - ICD9: 715.96, ICD10: M17.11 - CONSULT TO ORTHOPAEDICS All of the above discussed with the patient in detail. Omer de león is in agreement with the above plan. Treatment and plan of care di scussed including course of treatment, possible medication side effe cts, and what to watch for in regards to worsening signs and symptoms. All questions addressed. Lu Fong APRN.GIOVANNA elizabeth on 2019-04-08 [facility] Office Visit ([facility]) Normal 04-08-19 20 [place] [facility] ROMAIN BAILEY ([id number]) 1950 F [place] Date Time Provider Department ([id number]) 04/08/19 8:15 AM LU FONG [facility] During your visit today, we recorded the following informati on about you: Temperature Pulse Respiration Blood pressure 97.7 degrees 76/minute 16/minute 122/72 Weight 83.9 kg Lu Fong APRN.NURSING STAFFING COORDINATOR 04/08/2019 9:34 AM Signed Subjective HPI Romain Bailey is a 69 year old female who presents with right knee pain after a fall 5 days ago. She was w alking down some icy steps when she slipped and she fell down onto her right knee on the concrete step. The pain is rated at a 7/10. Dull and achy pain. Feels like it will giv e out at times. No history of knee injuries or surgeries. Has been taking Tyle nol, applying ice and heat as needed. Review of Systems Constitutional: Negative for chills and fever. Musculoskeletal: Positive for joint pain. Neurological: Negative for tingling and sensory change. BP 122/72 Pulse 76 Temp 36.5 ?C (97.7 ?F) (Tympanic) R anita 16 Wt 83.9 kg (185 lb) BMI 29.86 kg/m? PAST MEDICAL HISTORY Diagnosis Date - Arthropathy, unspecified, site unspecified - Asthma - Back pain - Calculus of kidney 05/09/2018 - Colon polyps 2013 - Diverticulitis 2000 - Environmental allergies - GERD (gastroesophageal reflux disease) - Hyperlipidemia lifestyle controlled - Hypertension - IBS (irritable bowel syndrome) - Migraine - Obesity PAST SURGICAL HISTORY Procedure Laterality Date - COLONOSCOP W/ OR W/O BRSH SPEC 05/29/2018 Colonoscopy - COLONOSCOPY AND POLYPECTOMY 12/03/2013 tubular adenoma, hyperplastic polyp; repeat due in 5y - DEBRIDE SKIN AND SUBQ TISSU 05/15/07 Debridement infected moira cyst upper mid back - PAST SURGICAL HISTORY OF 1984 metal removed from right tibial area - PAST SURGICAL HISTORY OF DANDC - REMOVAL GALLBLADDER ~2003 Cholecystectomy laparoscopic - TOTAL ABDOM HYSTERECTOMY 1999 MAURICE/BSO-pain, no abnormal paps ALLERGIES Adhesive Tape (Rosins); Bactrim Ds [Barr lfamethoxazole-Trimethoprim]; Bee Sting; Darvon [Propoxyphene Hcl]; Influenza Virus Vaccin es; Prednisone MEDICATIONS meloxicam (MOBIC) 15 mg tablet Take 1 tablet by mouth once daily. With food. ondansetron orally disintegrating (ZOFRAN ODT) 4 mg disinteg rating tablet DISSOLVE 1 TABLET ON THE TONGUE EVERY 6 HOURS NEEDED FO R NAUSEA/VOMITING warfarin (COUMADIN) 2 mg tablet Take 2 mg by mouth. EPINEPHrine (AUVI-Q) 0.3 mg/0.3 mL auto- injector Inject 0.3 mL intramuscularly as needed. albuterol HFA (VENTOLIN HFA) 90 mcg/actuation inhaler Inhale 2 Puffs as instructed every 6 hours as needed. fluticasone-salmeterol (ADVAIR DISKUS) 100-50 mcg/dose dsdv Inhale 1 Puff as instructed twice daily. RINSE AND GARGLE MOUTH WITH WATER AF TER EACH USE. meclizine (ANTIVERT) 25 mg tab Take 1 tablet by mouth every 6 hours as needed (dizziness). fluticasone (FLONASE) 50 mcg /actuation nasal spray Use 2 Sprays in each nostril once daily. benzonatate (TESSALON PERLES) 100 mg capsule Take 2 capsul es by mouth three times daily as needed. atorvastatin (LIPITOR) 40 mg tablet Take 1 tablet by mouth o nce daily. pantoprazole DR (PROTONIX) 20 mg tablet Take 1 tablet by m outh daily before breakfast. Take on empty stomach, 1/2 hr before meal. bifidobacteri bifid.and longum (FLORAJEN BIFIDOBLEND) 460 mg (9-1 bill.cell) cap Take 1 capsule by mouth once daily. amiodarone (PACERONE) 200 mg tablet Take 200 mg by mouth onc e daily. verapamil SR (CALAN SR, ISOPTIN SR) 240 mg CR tablet TAKE 1 TABLET BY MOUTH EVERYDAY AT BEDTIME ammonium lactate (LAC-HYDRIN) 12 % lotio n Apply 1 application to affected area as needed for Dry Skin (arms). thiamine mononitrate (VITAMI N B1) 100 mg tab Take 1 tablet by mouth once daily. cycloSPORINE (RESTASIS) 0.05 % ophthalmic emulsion Use 1 Joon p in both eyes twice daily. Both eyes. loratadine (CLARITIN) 10 mg tablet Take 1 tablet by mouth on ce daily. albuterol (PROVENTIL) 2.5 mg /3 mL (0.083 %) nebulizer solution Use 3 mL via nebulizer every 4 hours as needed for Wheezing/Shortne ss of Breath. Use over 5-15minutes. nitrofurantoin monohydrate and macrocrystal (MACROBID) 100 mg capsule Take 1 capsule by mouth twice daily. ELIQUIS 5 mg tab(s) Take 5 mg by mouth twice daily. metoprolol tartrate, short acting, (LOPRESSOR) 25 mg table t Take 12.5 mg by mouth twice daily. Nebulizer NEBULIZER FOR HOME USE. DX: J45.20 GLUC BARR/CHONDRO BARR A/VIT C/MN (GLUCOSAMI NE 1500 COMPLEX ORAL) Take 1 tablet by mouth once daily. FAMILY HISTORY Problem Relation Age of Onset - None Mother from fall - Diabetes Father - Ischemic Heart Disease Father d. [place] - Ischemic Heart Disease Maternal Grandfather d. [place] while holding her at 4mo - Blindness Brother - Heart Attack Brother Social History Tobacco Use - Smoking status: Never Smoker - Smokeless tobacco: Never Used Substance Use Topics - Alcohol use: No - Drug use: No Objective Physical Exam Constitutional: She is oriented to perso n, place, and time and well-developed, well-nourished, and in no distress. HENT: Head: Normocephalic and atraumatic. Eyes: Conjunctivae are normal. Pulmonary/Chest: Effort normal. No respiratory distress. Musculoskeletal: General: Tenderness and edema present. Comments: Right anterior knee Neurological: She is alert and oriented to person, place, and time. No cranial nerve deficit. Gait normal. Coordination normal. Psychiatric: Mood, memory, affect and judgment normal. ASSESSMENT/PLAN: 1. Right knee injury, initia l encounter - ICD9: 959.7, ICD10: S89.91XA (primary diagnosis) - XR KNEE GENERAL 4V AP BOTH/PA BOTH/LAT/MERC RT Right : No fractures or dislocations are seen. There is again noted be severe narrowing of the medial francesca rtment. Cystic areas in the medial aspect of the medial femoral cond yle probably degenerative. Marked narrowing patellofemoral compartment wi th large amount of spurring along the posterior aspect of patella. Th ere appears to be a small joint effusion suprapatellar bursa Left : No fractures or dislocations are seen. Mild narrowing medial lateral compartments IMPRESSION IMPRESSION: Severe degenerative changes in the RIGHT knee and mild degen erative changes in the LEFT knee. Fork Operator: ROSITA Transcribe Date/Time: Apr 08 2019 9:12A Dictated by : YOEL ESTRADA, DO ? - Continue Tylenol, rest, ice, and heat as needed 2. Osteoarthritis of right knee, unspecified osteoarthritis type - ICD9: 715.96, ICD10: M17.11 - CONSULT TO ORTHOPAEDICS All of the above discussed with the deng ent in detail. Patient is in agreement with the above plan. Treatment and plan of care discussed including course of treatment, possible medication side effects, and what to watch for in regards to worsening signs and symptoms. All questions addressed. Lu Fong, ANNALISA.NURSING STAFFING COORDINATOR Referring Provider: SELF [200] Allergies As of Date: 04/08/2019 Noted Allergy Reaction ADHESIVE TAPE (ROSINS) 12/05/2016 2 - Rash BACTRIM DS (SULFAMETHOXAZOLE-TRIM*12/29/2014 10 - Anaphylaxi s Comments: Difficulty breathing, fever, chills BEE STING 08/28/2012 10 - Anaphylaxis DARVON (PROPOXYPHENE HCL) 05/15/2007 INFLUENZA VIRUS VACCINES 01/07/2019 14 - Other: See Comments Comments: Chest tightness, arm swelling. PREDNISONE 03/07/2016 8 - GI Upset Date Reviewed: 04/08/2019 Reviewed by: Lu Fong - Fully Assessed Reason for Visit: Knee Pain [132] Cmt: right knee pain after fall x 5 days Primary Visit Diagnosis:Right knee injury, initial encounter [S89.91XA] Other Visit Diagnosis:Osteoarthritis of right knee, unspecif ied osteoarthritis type [M17.11] Order(s):XR KNEE GENERAL 4V AP BOTH/PA BOTH/LAT/MERC RT [864 0148] Order #: [id number] FUTURE CONSULT TO ORTHOPAEDICS [9093] Order #: [id number]: 1 FUT URE Prescriptions as of 04/08/2019 Sig: MELOXICAM 15 MG TABLET Take 1 tablet by mouth once d* ONDANSETRON 4 MG DISINTEGRATI* DISSOLVE 1 TABLET ON THE TONG * WARFARIN 2 MG TABLET Take 2 mg by mouth. EPINEPHRINE 0.3 MG/0.3 ML INJ* Inject 0.3 mL intramuscularly * ALBUTEROL SULFATE HFA 90 MCG/* Inhale 2 Puffs as instructed * FLUTICASONE 100 MCG-SALMETERO* Inhale 1 Puff as instructed t * MECLIZINE 25 MG TABLET Take 1 tablet by mouth every * FLUTICASONE PROPIONATE 50 MCG* Use 2 Sprays in each nostril * BENZONATATE 100 MG CAPSULE Take 2 capsules by mouth thre* ATORVASTATIN 40 MG TABLET Take 1 tablet by mouth once d* PANTOPRAZOLE 20 MG TABLET,DEL* Take 1 tablet by mouth daily * FLORAJEN BIFIDOBLEND 460 MG (* Take 1 capsule by mouth once * AMIODARONE 200 MG TABLET Take 200 mg by mouth once pancho* VERAPAMIL ER (SR) 240 MG TABL* TAKE 1 TABLET BY MOUTH EVERYD * AMMONIUM LACTATE 12 % LOTION Apply 1 application to affect* THIAMINE MONONITRATE (VITAMIN* Take 1 tablet by mouth once d * CYCLOSPORINE 0.05 % EYE DROPS* Use 1 Drop in both eyes twice * LORATADINE 10 MG TABLET Take 1 tablet by mouth once d* ALBUTEROL SULFATE 2.5 MG/3 ML* Use 3 mL via nebulizer every * NITROFURANTOIN MONOHYDRATE AND * Take 1 capsule by mouth twi ce* Patient not taking: Reported on 04/08/2019 ELIQUIS 5 MG TABLET Take 5 mg by mouth twice ellie* METOPROLOL TARTRATE 25 MG TAB* Take 12.5 mg by mouth twice d * COMPOUNDED PRESCRIPTION NEBULIZER FOR HOME USE. DX: * GLUCOSAMINE 1500 COMPLEX ORAL Take 1 tablet by mouth once d* Problem List As Of Date 04/08/2019 Noted Resolved Sebaceous cyst [L72.3] 05/15/2007 04/16/2012 Environmental allergies [Z91.09] Asthma [J45.909] More... Arthropathy, unspecified, site unspecified [M12* Essential hypertension [I10] More... IBS (irritable bowel syndrome) [K58.9] GERD (gastroesophageal reflux disease) [K21.9] More... Migraine [G43.909] More... Diverticulitis [K57.92] Hyperlipidemia, mixed [E78.2] More... Fracture of finger, middle or proximal phalanx,*08/28/2012 History of colon polyps [Z86.010] Chronic pain of right knee [M25.561, G89.29] 12/13/2015 Primary osteoarthritis of right knee [M17.11] 12/13/2015 BPPV (benign paroxysmal positional vertigo) [H8*04/04/2016 Bee sting allergy [Z91.030] 12/11/2017 Bilateral low back pain with bilateral sciatica*12/27/2017 More... Calculus of kidney [N20.0] 05/09/2018 More... LLQ pain [R10.32] 05/27/2018 TIA (transient ischemic attack) [G45.9] 07/29/2018 Dry skin [L85.3] 09/03/2018 Atrial fibrillation with rapid ventricular resp*12/30/2018 Letter Text Encounter Status:Closed by LU FONG APRN.CNP on 04/08 obsolete on 2019-02 OBSOLETE Refill ([facility]) Normal 03-21-2019 [facility] ROMAIN BAILEY ([id number]) 1950 [facility] Time Provider Department ([id number]) 03/21/19 ALAINA ERICKSON [facility] During your visit today, we recorded the following informati on about you: Allergies As of Date: 03/21/2019 Noted Allergy Reaction ADHESIVE TAPE (ROSINS) 12/05/2016 2 - Rash BACTRIM DS (SULFAMETHOXAZOLE-TRIM*12/29/2014 10 - Anaphylaxi s Comments: Difficulty breathing, fever, chills BEE STING 08/28/2012 10 - Anaphylaxis DARVON (PROPOXYPHENE HCL) 05/15/2007 INFLUENZA VIRUS VACCINES 01/07/2019 14 - Other: See Comments Comments: Chest tightness, arm swelling. PREDNISONE 03/07/2016 8 - GI Upset Date Reviewed: 03/16/2019 Reviewed by: Shameka Verma LPN - Fully Assessed Reason for Visit: Refill Request [94] Refill Request [94] Reason For Visit History Recorded Prescriptions as of 03/21/2019 Sig: OSELTAMIVIR 75 MG CAPSULE Take 1 capsule by mouth twice* MELOXICAM 15 MG TABLET Take 1 tablet by mouth once d* ONDANSETRON 4 MG DISINTEGRATI* DISSOLVE 1 TABLET ON THE TONG * NITROFURANTOIN MONOHYDRATE AND * Take 1 capsule by mouth twi ce* WARFARIN 2 MG TABLET Take 2 mg by mouth. X LISINOPRIL 10 MG TABLET Take 1 tablet by mouth once d* EPINEPHRINE 0.3 MG/0.3 ML INJ* Inject 0.3 mL intramuscularly * ALBUTEROL SULFATE HFA 90 MCG/* Inhale 2 Puffs as instructed * FLUTICASONE 100 MCG-SALMETERO* Inhale 1 Puff as instructed t * MECLIZINE 25 MG TABLET Take 1 tablet by mouth every * FLUTICASONE PROPIONATE 50 MCG* Use 2 Sprays in each nostril * BENZONATATE 100 MG CAPSULE Take 2 capsules by mouth thre* ATORVASTATIN 40 MG TABLET Take 1 tablet by mouth once d* PANTOPRAZOLE 20 MG TABLET,DEL* Take 1 tablet by mouth daily * FLORAJEN BIFIDOBLEND 460 MG (* Take 1 capsule by mouth once * AMIODARONE 200 MG TABLET Take 200 mg by mouth once pancho* ELIQUIS 5 MG TABLET Take 5 mg by mouth twice ellie* METOPROLOL TARTRATE 25 MG TAB* Take 12.5 mg by mouth twice d * VERAPAMIL ER (SR) 240 MG TABL* TAKE 1 TABLET BY MOUTH EVERYD * AMMONIUM LACTATE 12 % LOTION Apply 1 application to affect* THIAMINE MONONITRATE (VITAMIN* Take 1 tablet by mouth once d * CYCLOSPORINE 0.05 % EYE DROPS* Use 1 Drop in both eyes twice * LORATADINE 10 MG TABLET Take 1 tablet by mouth once d* COMPOUNDED PRESCRIPTION NEBULIZER FOR HOME USE. DX: * ALBUTEROL SULFATE 2.5 MG/3 ML* Use 3 mL via nebulizer every * GLUCOSAMINE 1500 COMPLEX ORAL Take 1 tablet by mouth once d* Problem List As Of Date 03/21/2019 Noted Resolved Sebaceous cyst [L72.3] 05/15/2007 04/16/2012 Environmental allergies [Z91.09] Asthma [J45.909] More... Arthropathy, unspecified, site unspecified [M12* Essential hypertension [I10] More... IBS (irritable bowel syndrome) [K58.9] GERD (gastroesophageal reflux disease) [K21.9] More... Migraine [G43.909] More... Diverticulitis [K57.92] Hyperlipidemia, mixed [E78.2] More... Fracture of finger, middle or proximal phalanx,*08/28/2012 History of colon polyps [Z86.010] Chronic pain of right knee [M25.561, G89.29] 12/13/2015 Primary osteoarthritis of right knee [M17.11] 12/13/2015 BPPV (benign paroxysmal positional vertigo) [H8*04/04/2016 Bee sting allergy [Z91.030] 12/11/2017 Bilateral low back pain with bilateral sciatica*12/27/2017 More... Calculus of kidney [N20.0] 05/09/2018 More... LLQ pain [R10.32] 05/27/2018 TIA (transient ischemic attack) [G45.9] 07/29/2018 Dry skin [L85.3] 09/03/2018 Atrial fibrillation with rapid ventricular resp*12/30/2018 Encounter Status:Closed by KRISTINE SERRA MA on 03/27/19 cnco on 2019-03-18 CNCO Letter Text Normal 03-18-2019 [facility] ([id number]) progress on 2019-02 PROGRESS HNO ID: [id number] Normal 03-16-2019 [facility] Author: Erin Rodriguez) [facility] ([id number]) Service: ? Author Type: Nurse Practitioner Type: Progress Notes Filed: 03/16/2019 9:49 AM Note Text: CC: Patient presents with: Cough: bodyaches AND fever X 2 days. Tmax 101 at onset of sx Sinus Problem: pressure in facse AND headache HPI: Romain Bailey is a 69 year old female who presents to the office with complaint of respiratory symptoms since . Associated symptoms includes sore throat, nasal congestion, rhinorrhea, facial pain/pressure, headache, body aches, fever, cough, dy spnea and fatigue. Treatments tried include Mucinex with no relief of symptoms. Sick contacts: unknown. History of asthma, frequent episodes of bronchitis, chronic bronchitis, bronchiectasis or COPD: Yes asthma Smoker: No The ROS is otherwise negative. The patient's pmh, medications, allergies, and past visits a re reviewed. PHYSICAL EXAM: BP 130/70 Pulse 74 Temp 37.2 ?C (99 ?F) Resp 24 Wt 8 5.7 kg (189 lb) SpO2 96% BMI 30.51 kg/m? General appearance: tired/ill appearing, in no acute distres s Head: Normocephalic Eyes: conjunctiva pink and moist, no icterus, sclera white, non-injected Ears: Right ear: External ear/canal- Normal, TM - clear with good landmarks. Left ear: External ear/canal- Normal, TM - clear with good landmarks Nose: mucosa erythematous and swollen, no sinus tenderness. Oropharynx:No erythema, exudates or tonsillar hypertrophy. Neck:supple and positive findings: few small anterior cervic al nodes Heart: Negative. RRR without obvious murmur, gallop, or rubs . No ectopy. Lungs: diminished breath sounds, scattered wheezing, no rale s or rhonchi ASSESSMENT/PLAN: 1. Influenza A - ICD9: 487.1, ICD10: J10.1 (primary diagnosi s) Duration of symptoms less than 48 hours, history of Afib, tr eatment with Tamiflu indicated - Discussed risks and benefits of treatment with Tamiflu inc luding shortened duration of symptoms by 1.5 to 3 days, possible si de effects, cost, availability and starting within 48 hours of symptoms. Patient verbalized understanding and agreeable . - Symptomatic treatment with prn analgesia. The patient may also use OTC Mucinex as needed. Supportive care with fluids and rest - Follow up in 3 to 4 days if symptoms persist or sooner if worsening of symptoms 2. Flu-like symptoms - ICD9: 780.99, ICD10: R68.89 As above - INFLUENZA AANDB MOLECULAR (POC) Prescription instructions reviewed with patient as applicabl e. Potential red flag symptoms discussed with the patient. Reviewed appro priate action plan to take if red flag symptoms occur. Patient agreeable t o treatment plan. Erin Lezama, ANNALISA.NURSING STAFFING COORDINATOR cnov on 2019-03-16 CNOV Office Visit (UCWSTR) Normal 03-16-19 [facility] ROMAIN BAILEY ([id number]) 1950 F [place] Date Time Provider Department ([id number]) 03/16/19 9:00 AM ERIN LEZAMA (NURSING STAFFING COORDINATOR) [facility] During your visit today, we recorded the following informati on about you: Temperature Pulse Respiration Blood pressure 99 degrees 74/minute 24/minute 130/70 Weight 85.7 kg Erin Older, PARAGLIDING INSTRUCTORTHU 03/16/2019 9:49 AM Signed CC: Patient presents with: Cough: bodyaches AND fever X 2 days. Tmax 101 at onset of sx Sinus Problem: pressure in facse AND headache HPI: Romain Bailey is a 69 year old female who presents to the office with complaint of respiratory symptoms since . Associated symptoms includes sore throat , nasal congestion, rhinorrhea, facial pain/pressure, headache, body aches, fever, cough, dyspnea a nd fatigue. Treatments tried include Mucinex with no relief of symptoms. Sick contacts: unknown. History of asthma, frequent episodes of bronchitis, chronic bronchitis, bronchiectasis or COPD: Yes asthma Smoker: No The ROS is otherwise negative. The patient's pmh, medications, allergies, and past visits a re reviewed. PHYSICAL EXAM: BP 130/70 Pulse 74 Temp 37.2 ?C (99 ?F) Resp 24 Wt 85.7 kg (189 lb) SpO2 96% BMI 30.51 kg/m? General appearance: tired/ill appearing, in no acute distres s Head: Normocephalic Eyes: conjunctiva pink and moist, no icterus, sclera white, non-injected Ears: Right ear: External ear/canal- Normal, TM - siddharth r with good landmarks. Left ear: External ear/canal- Normal, TM - clear with good l andmarks Nose: mucosa erythematous and swollen, no sinus tenderness. Oropharynx:No erythema, exudates or tonsillar hypertrophy. Neck:supple and positive findings: few small anterior cervic al nodes Heart: Negative. RRR without obvious murmur, gallop, or rubs . No ectopy. Lungs: diminished breath sounds, scattered wheezing, no rale s or rhonchi ASSESSMENT/PLAN: 1. Influenza A - ICD9: 487.1, ICD10: J10.1 (primary diagnosi s) Duration of symptoms less than 48 hours, history of Afib, tr eatment with Tamiflu indicated - Discussed risks and benefits of treatment with Tamif damari including shortened duration of symptoms by 1.5 to 3 days, possible side effects , cost, availability and starting within 48 hours of symptoms. Patie nt verbalized understanding and agreeable . - Symptomatic treatment with prn analgesia. The patient may also use OTC Mucinex as needed. Supportive care with fluids and rest - Follow up in 3 to 4 days if symptoms persist or sooner if worsening of symptoms 2. Flu-like symptoms - ICD9: 780.99, ICD10: R68.89 As above - INFLUENZA AANDB MOLECULAR (POC) Prescription instructions reviewed with patient as nataliia licable. Potential red flag symptoms discussed with the patient. Review ed appropriate action plan to take if red flag symptoms occur. Patient agreeable to treatm ent plan. ALVARO Hooper APRN.CNP 03/16/2019 9:40 AM Signed [facility] PATIENT INFO INFLUENZA INTRODUCTION Influenza (commonly called the flu) is a highly contagious illness that can occur in children or adults of any age. It occurs more often in the winter months because people spend more time in close contact with one another. The flu is spread easily from [id number] by co ughing, sneezing, or touching surfaces. Every year, complications of the flu require more than 200,000 people in the [place] to be hospitalized. Serious illness is m ore likely in the very young, older adults, women, and people who have cer tain health problems such as asthma or other forms of lung disease. There have been several widespread flu o utbreaks (called pandemics), which led to the deaths of many people worldwide. These outbreaks occu rred when new strains of influenza viruses formed (often from pigs or bird s) and humans became infected because they had no immunity to these viruse s. FLU SYMPTOMS Symptoms of seasonal flu can vary from person to person, but usually include: ? Fever (temperature higher than 100?F or 37.8?C) ? Headache and muscle aches ? Fatigue ? Cough and sore throat may also be present People with the flu usually have a fever for two to five day s. This is different than fever caused by other upper respi ratory viruses, which usually resolve after 24 to 48 hours. Some people have cold-like symptoms (runny nose, sore throat) during the flu while others have fever and muscle aches. Flu symptoms usually improve over two to five days, although the illness may last for a week or more. Weakness and fatigue may persist for several weeks Flu complications ? Complications of inf luenza occur in some people; pneumonia is the most common complicat ion. Pneumonia is a serious infection of the lungs, and is more likely to occur in people over the age of 65, people who live in residential care facilities (nursing homes ), and those with other illnesses such as diabetes or conditions affecting the heart or lungs. FLU DIAGNOSIS Influenza is usually diagnosed based on symptoms (fever, cou gh and muscle aches). Lab testing for infl uenza is performed in certain cases, such as during a new influenza outbreak in a community. FLU TREATMENT When to seek help ? Most people with the flu recover w ithin one to two weeks without treatment. However, serious complications of t he flu can occur. Call your doctor or nurse immediately if: ? You feel short of breath or have trouble breathing ? You have pain or pressure in your chest or stomach ? You have signs of being dehydrated, such as dizzines s when standing or not passing urine ? You feel confused ? You cannot stop vomiting or you cannot drink enough fluids There are several groups of people who are at increased risk for flu complications. These include women, you ng children (<5 years of age, and especially <2 years of age), people ?65 years of age, an d people with certain diseases such as chronic lung di sease (such as asthma), heart disease, diabetes, immunosuppressing conditions (such as HIV infectio n or transplantation), and some other diseases. If you or your ch ild has flu symptoms and is at increased risk of flu complications , you should call your healthcare provider. Treat symptoms ? Treating the symptoms of influenza can help you to feel better, but will not make the flu go away faster. ? Rest until the flu is fully resolved, especially if the il lness has been severe ? Fluids ? Drink enough flui ds so that you do not become dehydrated. One way to drafter engineering if you are drinking enough is to look at the color of your urine. Normally, urine should be li ght yellow to nearly colorless. If you are drinking enough, you should pass urine every three to five hours. ? Acetaminophen (such as Tylenol? and other brands) can reli klesey fever, headache, and muscle aches. Aspirin, and medicines anthony t include aspirin (eg, bismuth subsalicylate; PeptoBismol), are not recommended for children under 18 because aspirin can lead to a serious disease called Shweta sy ndrome. ? Cough medicines are not usually helpful; cough usually res olves without treatment. We do not recommend cough or cold medicine for children under age six years. Antiviral treatment ? Antiviral medicines can be used to tao at or prevent influenza. When used as a treatment, the medicine does not e liminate flu symptoms, although it can re duce the severity and duration of symptoms by about one day. Not every person with influenza needs an antiviral medicine; the decision is based upon your risk of developing complications of influenza. Antiviral treatment is most effective for season al influenza when it is taken within the first 48 hours of flu symptoms. Side effects ? Zanamivir and oseltamivir can cause mild side effects, including nausea and vomiting; zanamivir, which is inhaled, can cause difficulty breathing in some cases. Most people are able to continue the medicine despite the side effects. Antibiotics ? Antibiotics are NOT useful for tao ating viral illnesses such as influenza. Antibiotics shoul d only used if there is a bacterial complication of the flu such as bacterial pneumonia, ear infecti on, or sinusitis. Antibiotics can cause side effects and lead to development of antibiotic resistance. Referring Provider: SELF [[id number]] Allergies As of Date: 03/16/2019 Noted Allergy Reaction ADHESIVE TAPE (ROSINS) 12/05/2016 2 - Rash BACTRIM DS (SULFAMETHOXAZOLE-TRIM*12/29/2014 10 - Anaphylaxi s Comments: Difficulty breathing, fever, chills BEE STING 08/28/2012 10 - Anaphylaxis DARVON (PROPOXYPHENE HCL) 05/15/2007 INFLUENZA VIRUS VACCINES 01/07/2019 14 - Other: See Comments Comments: Chest tightness, arm swelling. PREDNISONE 03/07/2016 8 - GI Upset Date Reviewed: 03/16/2019 Reviewed by: Shameka Verma LPN - Fully Assessed Reason for Visit: Cough [28] Cmt: bodyaches AND fever X 2 days. Tmax 101 at on set of sx Sinus Problem [99] Cmt: pressure in facse AND headache Reason For Visit History Recorded Primary Visit Diagnosis:Influenza A [J10.1] Other Visit Diagnosis:Flu-like symptoms [R68.89] Order(s):INFLUENZA AANDB MOLECULAR (POC) [[id number]] Order # : [id number]. #:[id number] oseltamivir (TAMIFLU) 75 mg capsuleTake 1 capsule by mouth t wice daily for 5 days.Disp: 10 capsuleRfl: 0 Prescriptions as of 03/16/2019 Sig: MELOXICAM 15 MG TABLET Take 1 tablet by mouth once d* ONDANSETRON 4 MG DISINTEGRATI* DISSOLVE 1 TABLET ON THE TONG * NITROFURANTOIN MONOHYDRATE AND * Take 1 capsule by mouth twi ce* WARFARIN 2 MG TABLET Take 2 mg by mouth. LISINOPRIL 10 MG TABLET Take 1 tablet by mouth once d* EPINEPHRINE 0.3 MG/0.3 ML INJ* Inject 0.3 mL intramuscularly * ALBUTEROL SULFATE HFA 90 MCG/* Inhale 2 Puffs as instructed * FLUTICASONE 100 MCG-SALMETERO* Inhale 1 Puff as instructed t * MECLIZINE 25 MG TABLET Take 1 tablet by mouth every * FLUTICASONE PROPIONATE 50 MCG* Use 2 Sprays in each nostril * BENZONATATE 100 MG CAPSULE Take 2 capsules by mouth thre* ATORVASTATIN 40 MG TABLET Take 1 tablet by mouth once d* PANTOPRAZOLE 20 MG TABLET,DEL* Take 1 tablet by mouth daily * FLORAJEN BIFIDOBLEND 460 MG (* Take 1 capsule by mouth once * AMIODARONE 200 MG TABLET Take 200 mg by mouth once pancho* METOPROLOL TARTRATE 25 MG TAB* Take 12.5 mg by mouth twice d * VERAPAMIL ER (SR) 240 MG TABL* TAKE 1 TABLET BY MOUTH EVERYD * AMMONIUM LACTATE 12 % LOTION Apply 1 application to affect* THIAMINE MONONITRATE (VITAMIN* Take 1 tablet by mouth once d * CYCLOSPORINE 0.05 % EYE DROPS* Use 1 Drop in both eyes twice * LORATADINE 10 MG TABLET Take 1 tablet by mouth once d* COMPOUNDED PRESCRIPTION NEBULIZER FOR HOME USE. DX: * ALBUTEROL SULFATE 2.5 MG/3 ML* Use 3 mL via nebulizer every * OSELTAMIVIR 75 MG CAPSULE Take 1 capsule by mouth twice* ELIQUIS 5 MG TABLET Take 5 mg by mouth twice ellie* GLUCOSAMINE 1500 COMPLEX ORAL Take 1 tablet by mouth once d* Problem List As Of Date 03/16/2019 Noted Resolved Sebaceous cyst [L72.3] 05/15/2007 04/16/2012 Environmental allergies [Z91.09] Asthma [J45.909] More... Arthropathy, unspecified, site unspecified [M12* Essential hypertension [I10] More... IBS (irritable bowel syndrome) [K58.9] GERD (gastroesophageal reflux disease) [K21.9] More... Migraine [G43.909] More... Diverticulitis [K57.92] Hyperlipidemia, mixed [E78.2] More... Fracture of finger, middle or proximal phalanx,*08/28/2012 History of colon polyps [Z86.010] Chronic pain of right knee [M25.561, G89.29] 12/13/2015 Primary osteoarthritis of right knee [M17.11] 12/13/2015 BPPV (benign paroxysmal positional vertigo) [H8*04/04/2016 Bee sting allergy [Z91.030] 12/11/2017 Bilateral low back pain with bilateral sciatica*12/27/2017 More... Calculus of kidney [N20.0] 05/09/2018 More... LLQ pain [R10.32] 05/27/2018 TIA (transient ischemic attack) [G45.9] 07/29/2018 Dry skin [L85.3] 09/03/2018 Atrial fibrillation with rapid ventricular resp*12/30/2018 Other instructions from your clinician: [facility] PATIENT INFO INFLUENZA INTRODUCTION Influenza (commonly called the flu) is a highly contagious i llness that can occur in children or adults of any age. It occurs more o ften in the winter months because people spend more time in close contac t with one another. The flu is spread easily from hfefyx-it-jomyeg by c oughing, sneezing, or touching surfaces. Every year, complications of the flu require more than 200,0 00 people in the [place] to be hospitalized. Serious illness is mor e likely in the very young, older adults, women, and people who have certain health problems such as asthma or other forms of lung diseas e. There have been several widespread flu outbreaks (called parker demics), which led to the deaths of many people worldwide. These outbreaks occurred when new strains of influenza viruses formed (often from pigs or birds) and humans became infected because they had no immunity to these viruses. FLU SYMPTOMS Symptoms of seasonal flu can vary from person to person, but usually include: ? Fever (temperature higher than 100?F or 37.8?C) ? Headache and muscle aches ? Fatigue ? Cough and sore throat may also be present People with the flu usually have a fever for two to five day s. This is different than fever caused by other upper respiratory virus es, which usually resolve after 24 to 48 hours. Some people have cold-like symptoms (runny nose, sore throat ) during the flu while others have fever and muscle aches. Flu symptoms u sually improve over two to five days, although the illness may last for a w [place] or more. Weakness and fatigue may persist for several weeks Flu complications ? Complications of influenza occur in some people; pneumonia is the most common complication. Pneumonia is a se rious infection of the lungs, and is more likely to occur in peopl e over the age of 65, people who live in residential care facilities (nursing homes), and those with other illnesses such as diabetes or conditions af fecting the heart or lungs. FLU DIAGNOSIS Influenza is usually diagnosed based on symptoms (fever, cou gh and muscle aches). Lab testing for influenza is performed in certain ca ses, such as during a new influenza outbreak in a community. FLU TREATMENT When to seek help ? Most people with the flu recover within one to two weeks without treatment. However, serious complications of t he flu can occur. Call your doctor or nurse immediately if: ? You feel short of breath or have trouble breathing ? You have pain or pressure in your chest or stomach ? You have signs of being dehydrated, such as dizziness when standing or not passing urine ? You feel confused ? You cannot stop vomiting or you cannot drink enough fluids There are several groups of people who are at increased risk for flu complications. These include women, young children (<5 years of age, and especially <2 years of age), people ?65 years of ag e, and people with certain diseases such as chronic lung disease (such as asthma), heart disease, diabetes, immunosuppressing conditions (such as HIV infection or transplantation), and some other diseases. If you or your ch ild has flu symptoms and is at increased risk of flu complications, you should call your healthcare provider. Treat symptoms ? Treating the symptoms of influenza can help you to feel better, but will not make the flu go away faster. ? Rest until the flu is fully resolved, especially if the il lness has been severe ? Fluids ? Drink enough fluids so that you do not become deh ydrated. One way to drafter engineering if you are drinking enough is to look at the co rory of your urine. Normally, urine should be light yellow to nearly colo rless. If you are drinking enough, you should pass urine every three to fi ve hours. ? Acetaminophen (such as Tylenol? and other brands) can reli kelsey fever, headache, and muscle aches. Aspirin, and medicines that incl ude aspirin (eg, bismuth subsalicylate; PeptoBismol), are not recommende d for children under 18 because aspirin can lead to a serious disease spencer d Shweta syndrome. ? Cough medicines are not usually helpful; cough usually res olves without treatment. We do not recommend cough or cold medicine for ch ildren under age six years. Antiviral treatment ? Antiviral medicines can be used to tao at or prevent influenza. When used as a treatment, the medicine does not e liminate flu symptoms, although it can reduce the severity and duration o f symptoms by about one day. Not every person with influenza needs an anti viral medicine; the decision is based upon your risk of developing complications of influenza. Antiviral treatment is most effective for seasonal influenza when it is taken within the first 48 hours of flu symptoms. Side effects ? Zanamivir and oseltamivir can cause mild side effects, including nausea and vomiting; zanamivir, which is inhaled, can cause difficulty breathing in some cases. Most people are able to continue the medicine despite the side effects. Antibiotics ? Antibiotics are NOT useful for treating viral illnesses such as influenza. Antibiotics should only used if there is a ирина terial complication of the flu such as bacterial pneumonia, ear inf ection, or sinusitis. Antibiotics can cause side effects and lead to de velopment of antibiotic resistance. Prescriptions ordered this encounter Disp Refills Start End OSELTAMIVIR 75 MG CAPSULE 10 c* 0 03/16/2019 03/21/2019 Route: ORAL Sig: Take 1 capsule by mouth twice daily for 5 days. Letter Text Encounter Status:Closed by NYLA LEZAMAZ GIOVANNA on 03/16/19 progress on 2019-02 PROGRESS HNO ID: [id number] Normal 03-05-2019 [facility] Author: Marilyn Torres [facility] ([id number]) Service: ? Author Type: ? Type: Progress Notes Filed: 03/05/2019 3:58 PM Note Text: Chief Complaint Patient presents with: Chest Pain HPI Romain Bailey is a 69 year old female who presents here to day for a same day appointment. Pt here today after she was triaged and advised to come in f or an OV due to chest pain. Pt here today with her grandson. Chest pain - Started at 3-3:30 am this morning noting that i t woke her up and felt a grabbing pain in her chest that is described as s harp or grabbing. Pt notes this is occurring every few seconds to every few minutes. Denies anything that makes the pain start, such as eating food or movement. Pain is worse with lying down, pressing on that ar ea or taking deep breaths. Pain rated a 6-7/10. She was hospitalized back in November for a-fib, noting that her pain with a-fib was described as a tightness. She also was diagnosed with pneumonia as well. She denies any SOB, increased cough, dizziness. She does fol low with Dr. Sampson with Cardiology but felt she needed to talk with her PCP office first. Dr. Sampson manages her Coumadin, unsure what her dosa ge is presently. She also follows with Dr. Tee at [facility]. Has some upcoming testing to complete later this month. 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 Didn't go to work today, but is to return Sunday, will update if not improving. Past medical history, appointments, medications, allergies r oswaldo. Previous Medical History PAST MEDICAL HISTORY Diagnosis Date - Arthropathy, unspecified, site unspecified - Asthma - Back pain - Calculus of kidney 05/09/2018 - Colon polyps 2013 - Diverticulitis 2000 - Environmental allergies - GERD (gastroesophageal reflux disease) - Hyperlipidemia lifestyle controlled - Hypertension - IBS (irritable bowel syndrome) - Migraine - Obesity Previous Surgical History PAST SURGICAL HISTORY Procedure Laterality Date - COLONOSCOP W/ OR W/O BRSH SPEC 05/29/2018 Colonoscopy - COLONOSCOPY AND POLYPECTOMY 12/03/2013 tubular adenoma, hyperplastic polyp; repeat due in 5y - DEBRIDE SKIN AND SUBQ TISSU 05/15/07 Debridement infected moira cyst upper mid back - PAST SURGICAL HISTORY OF 1984 metal removed from right tibial area - PAST SURGICAL HISTORY OF DANDC - REMOVAL GALLBLADDER ~2003 Cholecystectomy laparoscopic - TOTAL ABDOM HYSTERECTOMY 1999 MAURICE/BSO-pain, no abnormal paps Family History FAMILY HISTORY Problem Relation Age of Onset - None Mother from fall - Diabetes Father - Ischemic Heart Disease Father d. CA - Ischemic Heart Disease Maternal Grandfather d. [place] while holding her at 4mo - Blindness Brother - Heart Attack Brother Patient Allergies ALLERGIES Allergen Reactions - Adhesive Tape (Marilou* Rash - Bactrim Ds [Sulfame* Anaphylaxis Difficulty breathing, fever, chills - Bee Sting Anaphylaxis - Darvon [Propoxyphen* - Influenza Virus Vac* Other: See Comments Chest tightness, arm swelling. - Prednisone GI Upset Current Medications Current Outpatient Medications on File Prior to Visit Medication Sig - ondansetron orally disintegrating (ZOFRAN ODT) 4 mg disint egrating tablet DISSOLVE 1 TABLET ON THE TONGUE EVERY 6 HOURS NEED ED FOR NAUSEA/VOMITING - nitrofurantoin monohydrate and macrocrystal (MACROBID) 100 mg capsule Take 1 capsule by mouth twice daily. - warfarin (COUMADIN) 2 mg tablet Take 2 mg by mouth. - lisinopril (ZESTRIL, PRINIVIL) 10 mg tablet Take 1 tablet by mouth once daily. - EPINEPHrine (AUVI-Q) 0.3 mg/0.3 mL auto-injector Inject 0. 3 mL intramuscularly as needed. - albuterol HFA (VENTOLIN HFA) 90 mcg/actuation inhaler Inha le 2 Puffs as instructed every 6 hours as needed. - fluticasone-salmeterol (ADVAIR DISKUS) 100-50 mcg/dose dsd v Inhale 1 Puff as instructed twice daily. RINSE AND GARGLE MOUTH WITH WATER AFTER EACH USE. - meclizine (ANTIVERT) 25 mg tab Take 1 tablet by mouth ever y 6 hours as needed (dizziness). - fluticasone (FLONASE) 50 mcg/actuation nasal spray Use 2 S prays in each nostril once daily. - atorvastatin (LIPITOR) 40 mg tablet Take 1 tablet by mouth once daily. - pantoprazole DR (PROTONIX) 20 mg tablet Take 1 tablet by m outh daily before breakfast. Take on empty stomach, 1/2 hr before meal. - bifidobacteri bifid.and longum (FLORAJEN BIFIDOBLEND) 460 mg (9-1 bill.cell) cap Take 1 capsule by mouth once daily. - amiodarone (PACERONE) 200 mg tablet Take 200 mg by mouth o nce daily. - ELIQUIS 5 mg tab(s) Take 5 mg by mouth twice daily. - metoprolol tartrate, short acting, (LOPRESSOR) 25 mg table t Take 12.5 mg by mouth twice daily. - verapamil SR (CALAN SR, ISOPTIN SR) 240 mg CR tablet TAKE 1 TABLET BY MOUTH EVERYDAY AT BEDTIME - ammonium lactate (LAC-HYDRIN) 12 % lotion Apply 1 applicat ion to affected area as needed for Dry Skin (arms). - thiamine mononitrate (VITAMIN B1) 100 mg tab Take 1 tablet by mouth once daily. - cycloSPORINE (RESTASIS) 0.05 % ophthalmic emulsion Use 1 D rop in both eyes twice daily. Both eyes. - loratadine (CLARITIN) 10 mg tablet Take 1 tablet by mouth once daily. - Nebulizer NEBULIZER FOR HOME USE. DX: J45.20 - albuterol (PROVENTIL) 2.5 mg /3 mL (0.083 %) nebulizer leda ution Use 3 mL via nebulizer every 4 hours as needed for Wheezing/Shortness of Breath. Use over 5-15minutes. - benzonatate (TESSALON PERLES) 100 mg capsule Take 2 capsul es by mouth three times daily as needed. - GLUC BARR/CHONDRO BARR A/VIT C/MN (GLUCOSAMINE 1500 COMPLEX OR AL) Take 1 tablet by mouth once daily. No current facility-administered medications on file prior t o visit. Social History Social History Tobacco Use - Smoking status: Never Smoker - Smokeless tobacco: Never Used Substance Use Topics - Alcohol use: No - Drug use: No EXAM: BP 124/74 (BP Site: Right Arm, BP Position: Sitting, BP Cuff Size: Regular Adult) Pulse 60 Resp 16 Wt 85 kg (187 lb 6.4 oz) BMI 30.25 kg/m? General Appearance: Well appearing, alert, in no acute distr ess, well-hydrated, well nourished. and Overweight. Lungs: lungs clear to auscultation. No wheezing, rhonchi, ra les. Heart: RRR without murmur, gallop, or rubs. No ectopy. Musculoskeletal: Pain to palpate on chest, left upper costoc hondral area; reproduces pain that she is having Health Maintenance List BP CONTROLLED (<130/80) due on 1969 MAMMOGRAM due on 06/26/2017 ANNUAL PCP TEAM CHRONIC DISEASE VISIT due on 02/08/2020 DIABETES SCREEN due on 07/30/2021 COLORECTAL CANCER SCREENING,SEE MODIFIER due on 05/30/2023 LIPID SCREEN due on 07/30/2023 DTAP,TDAP,TD(2 - Td) due on 08/11/2025 BONE DENSITY Completed ADULT PREVNAR-13 Completed INFLUENZA Completed HEPATITIS C SCREENING Completed PNEUMOVAX AGE 65 AND OVER WITH 5YR LOOKBACK Completed Data reviewed Epic ASSESSMENT/PLAN: 1. Musculoskeletal chest pain - ICD9: 786.59, ICD10: R07.89 (primary diagnosis) Chest pain due to musculoskeletal pain - EKG normal - Start Mobic 2. Chest pain, unspecified type - ICD9: 786.50, ICD10: R07.9 Atypical chest pain, symptoms are not consistent with cardia c ischemia due to nonexertional nature of symptom, pleuritic nature of pain and localization of the pain possible etiology include Costochon dritis/chest wall pain - Treatment with mobic - ECG COMPLETE 3. Atrial fibrillation with rapid ventricular response (HCC) - ICD9: 427.31, ICD10: I48.91 - ECG COMPLETE Update office if no improvement I agree with the Chief Complaint, ROS, and Past Histories in dependently gathered by the clinical patient support tech and the remaining scr ibed note accurately describes my personal service to the patient. Alfred Plascencia MD The documentation for this note was completed by Marilyn eller MA acting as scribe for Alfred Plascencia MD. March 05, 2019 2:30 PM. Marilyn Torres MA ecg complete on 202 0-01-08 ECG COMPLETE NAME : ROMAIN BAILEY 2019 [facility] PID : [id number] Osito gutierrez ([id number]) : 1950 Gender : Female Race : ORD : [id number] Procedure Date : Mar 05 2019 14:23:16 Edit Date : Mar 11 2019 16:01:44 Diagnosis:SINUS BRADYCARDIA WITH 1ST DEGREE AV BLOCK OTHERWISE NORMAL ECG Confirmed by MD ROGERS GREGORY () on 03/11/2019 4:01:42 PM Ventricular Rate : 59 BPM Atrial Rate : 59 BPM P-R Interval : 222 ms QRS Duration : 82 ms Q-T Interval : 466 ms QTC Calculation(Bazett) : 461 ms P Everson : 61 degrees R Everson : 30 degrees T Everson : 45 degrees Test Reason : Location : 185 : [facility] Overread By : MD ROGERS GREGORY Edited By : MD ROGERS GREGORY Referred By : ALFRED PLASCENCIA Acquired by : NANDO COHEN, glenn on 2019-03-05 CNOV Office Visit (FAMPWS) Normal 03-05-[address] [place] [address] [facility] ROMAIN BAILEY ([id number]) 1950 F [facility] Time Provider Department ([id number]) 03/05/19 1:40 PM [facility] During your visit today, we recorded the following informati on about you: Pulse Respiration Blood pressure Weight 60/minute 16/minute 124/74 85 kg Marilyn Torres MA 03/05/2019 3:58 PM Signed Chief Complaint Patient presents with: Chest Pain HPI Romain Bailey is a 69 year old female who presents here today for a same day appointment. Pt here today after she was triaged and advised to come in for an OV due to chest pain. Pt here today with her grandson. Chest pain - Started at 3-3:30 am this morning n oting that it woke her up and felt a grabbing pain in her chest that i s described as sharp or grabbing. Pt notes this is occurring ever y few seconds to every few minutes. Denies anything that makes the pain start, such as eatin g food or movement. Pain is worse with lying down, pressing on that area or lisa ing deep breaths. Pain rated a 6-7/10. She was hospitalized back in November for a-fib, noting that her pain with a-fib was described as a tightness. She also was diagnosed w ith pneumonia as well. She denies any SOB, increase d cough, dizziness. She does follow with Dr. Sampson with Cardiology but felt she needed to talk with her PCP off ice first. Dr. Sampson manages her Coumadin, unsure what her dosage is prese ntly. She also follows with Dr. Tee at [facility] Pulmonary. Has some upcoming testing to complete later this month. 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 Didn't go to work today, but is to return Sunday, will update if not improving. Past medical history, appointments, medications, allergies bernardino chacon. Previous Medical History PAST MEDICAL HISTORY Diagnosis Date - Arthropathy, unspecified, site unspecified - Asthma - Back pain - Calculus of kidney 05/09/2018 - Colon polyps 2013 - Diverticulitis 2000 - Environmental allergies - GERD (gastroesophageal reflux disease) - Hyperlipidemia lifestyle controlled - Hypertension - IBS (irritable bowel syndrome) - Migraine - Obesity Previous Surgical History PAST SURGICAL HISTORY Procedure Laterality Date - COLONOSCOP W/ OR W/O BRSH SPEC 05/29/2018 Colonoscopy - COLONOSCOPY AND POLYPECTOMY 12/03/2013 tubular adenoma, hyperplastic polyp; repeat due in 5y - DEBRIDE SKIN AND SUBQ TISSU 05/15/07 Debridement infected moira cyst upper mid back - PAST SURGICAL HISTORY OF 1984 metal removed from right tibial area - PAST SURGICAL HISTORY OF DANVT - REMOVAL GALLBLADDER ~2003 Cholecystectomy laparoscopic - TOTAL ABDOM HYSTERECTOMY 1999 MAURICE/BSO-pain, no abnormal paps Family History FAMILY HISTORY Problem Relation Age of Onset - None Mother from fall - Diabetes Father - Ischemic Heart Disease Father d. [place] - Ischemic Heart Disease Maternal Grandfather d. [place] while holding her at 4mo - Blindness Brother - Heart Attack Brother Patient Allergies ALLERGIES Allergen Reactions - Adhesive Tape (Marilou* Rash - Bactrim Ds [Sulfame* Anaphylaxis Difficulty breathing, fever, chills - Bee Sting Anaphylaxis - Darvon [Propoxyphen* - Influenza Virus Vac* Other: See Comments Chest tightness, arm swelling. - Prednisone GI Upset Current Medications Current Outpatient Medications on File Prior to Visit Medication Sig - ondansetron orally disintegrating (ZOFRAN ODT) 4 mg disi ntegrating tablet DISSOLVE 1 TABLET ON THE TONGUE EVERY 6 HOURS NEEDED FO R NAUSEA/VOMITING - nitrofurantoin monohydrate and macrocr ystal (MACROBID) 100 mg capsule Take 1 capsule by mouth twice daily. - warfarin (COUMADIN) 2 mg tablet Take 2 mg by mouth. - lisinopril (ZESTRIL, PRINIVIL) 10 mg tablet Take 1 tablet by mouth once daily. - EPINEPHrine (AUVI-Q) 0.3 mg/0.3 mL auto-injector Inject 0. 3 mL intramuscularly as needed. - albuterol HFA (VENTOLIN HFA) 90 mcg/actuation inhaler Inha le 2 Puffs as instructed every 6 hours as needed. - fluticasone-salmeterol (ADVAIR DISKUS) 100-50 mcg/dose dsdv Inhale 1 Puff as instructed twice daily. RINSE AND GARGLE MOUTH WITH WATER AF TER EACH USE. - meclizine (ANTIVERT) 25 mg tab Take 1 tablet by mouth every 6 hours as needed (dizziness). - fluticasone (FLONASE) 50 mcg/actuation nasal spray Use 2 S prays in each nostril once daily. - atorvastatin (LIPITOR) 40 mg tablet Take 1 tablet by mouth once daily. - pantoprazole DR (PROTONIX) 20 mg tablet Take 1 tablet by mouth daily before breakfast. Take on empty stomach, 1/2 hr before meal. - bifidobacteri bifid.and longum (FLORAJ EN BIFIDOBLEND) 460 mg (9-1 bill.cell) cap Take 1 capsule by mouth once daily. - amiodarone (PACERONE) 200 mg tablet Take 200 mg by mouth o nce daily. - ELIQUIS 5 mg tab(s) Take 5 mg by mouth twice daily. - metoprolol tartrate, short acting, (LOPRESSOR) 25 mg tablet Take 12.5 mg by mouth twice daily. - verapamil SR (CALAN SR, ISOPTIN SR) 240 mg CR tablet TAKE 1 TABLET BY MOUTH EVERYDAY AT BEDTIME - ammonium lactate (LAC-HYDRIN) 12 % lotion Apply 1 applic ation to affected area as needed for Dry Skin (arms). - thiamine mononitrate (VITAMIN B1) 100 mg tab Take 1 tablet by mouth once daily. - cycloSPORINE (RESTASIS) 0.05 % ophthalmic emulsion U se 1 Drop in both eyes twice daily. Both eyes. - loratadine (CLARITIN) 10 mg tablet Take 1 tablet by mouth once daily. - Nebulizer NEBULIZER FOR HOME USE. DX: J45.20 - albuterol (PROVENTIL) 2.5 mg /3 mL (0. 083 %) nebulizer solution Use 3 mL via nebulizer every 4 hours as needed for Wheezing/Shortne ss of Breath. Use over 5-15minutes. - benzonatate (TESSALON PERLES) 100 mg capsule T zaheer 2 capsules by mouth three times daily as needed. - GLUC BARR/CHONDRO BARR A/VIT C/MN (GLUCOSAMINE 150 0 COMPLEX ORAL) Take 1 tablet by mouth once daily. No current facility-administered medications on file prior t o visit. Social History Social History Tobacco Use - Smoking status: Never Smoker - Smokeless tobacco: Never Used Substance Use Topics - Alcohol use: No - Drug use: No EXAM: BP 124/74 (BP Site: Right Arm, BP Position: Sitting, BP Cuff Size: Regular Adult) Pulse 60 Resp 16 Wt 85 kg (187 lb 6.4 oz) BMI 30.25 kg/m? General Appearance: Well nataliia earing, alert, in no acute distress, well-hydrated, well nourished. and Overweight. Lungs: lungs clear to auscultation. No wheezing, rhonchi, ra les. Heart: RRR without murmur, gallop, or rubs. No ectopy. Musculoskeletal: Pain to palpate on chest, left upper costoc hondral area; reproduces pain that she is having Health Maintenance List BP CONTROLLED (<130/80) due on 1969 MAMMOGRAM due on 06/26/2017 ANNUAL PCP TEAM CHRONIC DISEASE VISIT due on 02/08/2020 DIABETES SCREEN due on 07/30/2021 COLORECTAL CANCER SCREENING,SEE MODIFIER due on 05/30/2023 LIPID SCREEN due on 07/30/2023 DTAP,TDAP,TD(2 - Td) due on 08/11/2025 BONE DENSITY Completed ADULT PREVNAR-13 Completed INFLUENZA Completed HEPATITIS C SCREENING Completed PNEUMOVAX AGE 65 AND OVER WITH 5YR LOOKBACK Completed Data reviewed Epic ASSESSMENT/PLAN: 1. Musculoskeletal chest debra n - ICD9: 786.59, ICD10: R07.89 (primary diagnosis) Chest pain due to musculoskeletal pain - EKG normal - Start Mobic 2. Chest pain, unspecified type - ICD9: 786.50, ICD10: R07.9 Atypical chest pain, symptoms are not consistent with cardiac ischemia due to nonexertional nature of symptom, pleuritic natur e of pain and localization of the pain possible etiology include Costochondritis/chest wal l pain - Treatment with mobic - ECG COMPLETE 3. Atrial fibrillation with rapid ventricular response (HCC) - ICD9: 427.31, ICD10: I48.91 - ECG COMPLETE Update office if no improvement I agree with the Chief Complaint, ROS, and Past Histories in dependently gathered by the clinical patient support tech and the remaining scr ibed note accurately describes my personal service to the patient. Alfred Plascencia MD The documentation for this note was completed by Marilyn eller MA acting as scribe for Alfred Plascencia MD. March 05, 2019 2:30 PM. Marilyn Torres MA Referring Provider: SELF [[id number]] Allergies As of Date: 03/05/2019 Noted Allergy Reaction ADHESIVE TAPE (ROSINS) 12/05/2016 2 - Rash BACTRIM DS (SULFAMETHOXAZOLE-TRIM*12/29/2014 10 - Anaphylaxi s Comments: Difficulty breathing, fever, chills BEE STING 08/28/2012 10 - Anaphylaxis DARVON (PROPOXYPHENE HCL) 05/15/2007 INFLUENZA VIRUS VACCINES 01/07/2019 14 - Other: See Comments Comments: Chest tightness, arm swelling. PREDNISONE 03/07/2016 8 - GI Upset Date Reviewed: 03/05/2019 Reviewed by: Marilyn Torres MA - Fully Assessed Reason for Visit: Chest Pain [21] Primary Visit Diagnosis:Musculoskeletal chest pain [R07.89] Other Visit Diagnoses:Chest pain, unspecified type [R07.9] Atrial fibrillation with rapid ventricular response (HCC) [I48.91] Essential hypertension [I10] Order(s):ECG COMPLETE [ECG01] Order #: [id number] FUTURE meloxicam (MOBIC) 15 mg tabletTake 1 tablet by mouth once da tiffanie. With food.Disp: 14 tabletRfl: 1 Prescriptions as of 03/05/2019 Sig: ONDANSETRON 4 MG DISINTEGRATI* DISSOLVE 1 TABLET ON THE TONG * NITROFURANTOIN MONOHYDRATE AND * Take 1 capsule by mouth twi ce* WARFARIN 2 MG TABLET Take 2 mg by mouth. LISINOPRIL 10 MG TABLET Take 1 tablet by mouth once d* EPINEPHRINE 0.3 MG/0.3 ML INJ* Inject 0.3 mL intramuscularly * ALBUTEROL SULFATE HFA 90 MCG/* Inhale 2 Puffs as instructed * FLUTICASONE 100 MCG-SALMETERO* Inhale 1 Puff as instructed t * MECLIZINE 25 MG TABLET Take 1 tablet by mouth every * FLUTICASONE PROPIONATE 50 MCG* Use 2 Sprays in each nostril * ATORVASTATIN 40 MG TABLET Take 1 tablet by mouth once d* PANTOPRAZOLE 20 MG TABLET,DEL* Take 1 tablet by mouth daily * FLORAJEN BIFIDOBLEND 460 MG (* Take 1 capsule by mouth once * AMIODARONE 200 MG TABLET Take 200 mg by mouth once pancho* ELIQUIS 5 MG TABLET Take 5 mg by mouth twice ellie* METOPROLOL TARTRATE 25 MG TAB* Take 12.5 mg by mouth twice d * VERAPAMIL ER (SR) 240 MG TABL* TAKE 1 TABLET BY MOUTH EVERYD * AMMONIUM LACTATE 12 % LOTION Apply 1 application to affect* THIAMINE MONONITRATE (VITAMIN* Take 1 tablet by mouth once d * CYCLOSPORINE 0.05 % EYE DROPS* Use 1 Drop in both eyes twice * LORATADINE 10 MG TABLET Take 1 tablet by mouth once d* COMPOUNDED PRESCRIPTION NEBULIZER FOR HOME USE. DX: * ALBUTEROL SULFATE 2.5 MG/3 ML* Use 3 mL via nebulizer every * MELOXICAM 15 MG TABLET Take 1 tablet by mouth once d* BENZONATATE 100 MG CAPSULE Take 2 capsules by mouth thre* GLUCOSAMINE 1500 COMPLEX ORAL Take 1 tablet by mouth once d* Problem List As Of Date 03/05/2019 Noted Resolved Sebaceous cyst [L72.3] 05/15/2007 04/16/2012 Environmental allergies [Z91.09] Asthma [J45.909] More... Arthropathy, unspecified, site unspecified [M12* Essential hypertension [I10] More... IBS (irritable bowel syndrome) [K58.9] GERD (gastroesophageal reflux disease) [K21.9] More... Migraine [G43.909] More... Diverticulitis [K57.92] Hyperlipidemia, mixed [E78.2] More... Fracture of finger, middle or proximal phalanx,*08/28/2012 History of colon polyps [Z86.010] Chronic pain of right knee [M25.561, G89.29] 12/13/2015 Primary osteoarthritis of right knee [M17.11] 12/13/2015 BPPV (benign paroxysmal positional vertigo) [H8*04/04/2016 Bee sting allergy [Z91.030] 12/11/2017 Bilateral low back pain with bilateral sciatica*12/27/2017 More... Calculus of kidney [N20.0] 05/09/2018 More... LLQ pain [R10.32] 05/27/2018 TIA (transient ischemic attack) [G45.9] 07/29/2018 Dry skin [L85.3] 09/03/2018 Atrial fibrillation with rapid ventricular resp*12/30/2018 Prescriptions ordered this encounter Disp Refills Start End MELOXICAM 15 MG TABLET 14 t* 1 03/05/2019 Route: ORAL Sig: Take 1 tablet by mouth once daily. With food. Encounter Status:Closed by ALFRED PLASCENCIA MD on 03/05/19 obsolete on 2019-02 OBSOLETE Refill (FPWADS) Normal 03-04-2019 [facility] ROMAIN BAILEY ([id number]) 1950 [facility] Date Time Provider Department ([id number]) 03/04/19 ALAINA ERICKSON FPWADS During your visit today, we recorded the following informati on about you: Allergies As of Date: 03/04/2019 Noted Allergy Reaction ADHESIVE TAPE (ROSINS) 12/05/2016 2 - Rash BACTRIM DS (SULFAMETHOXAZOLE-TRIM*12/29/2014 10 - Anaphylaxi s Comments: Difficulty breathing, fever, chills BEE STING 08/28/2012 10 - Anaphylaxis DARVON (PROPOXYPHENE HCL) 05/15/2007 INFLUENZA VIRUS VACCINES 01/07/2019 14 - Other: See Comments Comments: Chest tightness, arm swelling. PREDNISONE 03/07/2016 8 - GI Upset Date Reviewed: 02/09/2019 Reviewed by: Aranza ([facility]) Maria E - Fully Assessed Reason for Visit: Refill Request [94] Visit Diagnosis:Benign paroxysmal positional vertigo, unspecified laterality [H81.10] Order(s):ondansetron orally disintegrating (ZOFRAN ODT) 4 mg disintegrating tabletDISSOLVE 1 TABLET ON THE TONGUE EVERY 6 HOURS NEEDE D FOR NAUSEA/VOMITINGDisp: 90 tabletRfl: 0 Prescriptions as of 03/04/2019 Sig: ONDANSETRON 4 MG DISINTEGRATI* DISSOLVE 1 TABLET ON THE TONG * NITROFURANTOIN MONOHYDRATE AND * Take 1 capsule by mouth twi ce* WARFARIN 2 MG TABLET Take 2 mg by mouth. LISINOPRIL 10 MG TABLET Take 1 tablet by mouth once d* EPINEPHRINE 0.3 MG/0.3 ML INJ* Inject 0.3 mL intramuscularly * ALBUTEROL SULFATE HFA 90 MCG/* Inhale 2 Puffs as instructed * FLUTICASONE 100 MCG-SALMETERO* Inhale 1 Puff as instructed t * MECLIZINE 25 MG TABLET Take 1 tablet by mouth every * FLUTICASONE PROPIONATE 50 MCG* Use 2 Sprays in each nostril * BENZONATATE 100 MG CAPSULE Take 2 capsules by mouth thre* ATORVASTATIN 40 MG TABLET Take 1 tablet by mouth once d* PANTOPRAZOLE 20 MG TABLET,DEL* Take 1 tablet by mouth daily * FLORAJEN BIFIDOBLEND 460 MG (* Take 1 capsule by mouth once * AMIODARONE 200 MG TABLET Take 200 mg by mouth once pancho* ELIQUIS 5 MG TABLET Take 5 mg by mouth twice ellie* METOPROLOL TARTRATE 25 MG TAB* Take 12.5 mg by mouth twice d * VERAPAMIL ER (SR) 240 MG TABL* TAKE 1 TABLET BY MOUTH EVERYD * AMMONIUM LACTATE 12 % LOTION Apply 1 application to affect* THIAMINE MONONITRATE (VITAMIN* Take 1 tablet by mouth once d * CYCLOSPORINE 0.05 % EYE DROPS* Use 1 Drop in both eyes twice * LORATADINE 10 MG TABLET Take 1 tablet by mouth once d* COMPOUNDED PRESCRIPTION NEBULIZER FOR HOME USE. DX: * ALBUTEROL SULFATE 2.5 MG/3 ML* Use 3 mL via nebulizer every * GLUCOSAMINE 1500 COMPLEX ORAL Take 1 tablet by mouth once d* Problem List As Of Date 03/04/2019 Noted Resolved Sebaceous cyst [L72.3] 05/15/2007 04/16/2012 Environmental allergies [Z91.09] Asthma [J45.909] More... Arthropathy, unspecified, site unspecified [M12* Essential hypertension [I10] More... IBS (irritable bowel syndrome) [K58.9] GERD (gastroesophageal reflux disease) [K21.9] More... Migraine [G43.909] More... Diverticulitis [K57.92] Hyperlipidemia, mixed [E78.2] More... Fracture of finger, middle or proximal phalanx,*08/28/2012 History of colon polyps [Z86.010] Chronic pain of right knee [M25.561, G89.29] 12/13/2015 Primary osteoarthritis of right knee [M17.11] 12/13/2015 BPPV (benign paroxysmal positional vertigo) [H8*04/04/2016 Bee sting allergy [Z91.030] 12/11/2017 Bilateral low back pain with bilateral sciatica*12/27/2017 More... Calculus of kidney [N20.0] 05/09/2018 More... LLQ pain [R10.32] 05/27/2018 TIA (transient ischemic attack) [G45.9] 07/29/2018 Dry skin [L85.3] 09/03/2018 Atrial fibrillation with rapid ventricular resp*12/30/2018 Prescriptions ordered this encounter Disp Refills Start End ONDANSETRON 4 MG DISINTEGRATING TABL* 90 t* 0 03/04/2019 Sig: DISSOLVE 1 TABLET ON THE TONGUE EVERY 6 HOURS NEEDED FOR NAUSEA/VOMITING Medications Discontinued During This Encounter ondansetron orally disintegrating (Z* 90 t* 0 02/06/201903/04 Route: ORAL Sig: Take 1 tablet by mouth every 6 hours as needed for Naus ea/Vomiting. Disc: Reason for discontinue is not on file. Encounter Status:Closed by PAGE, DAVE Giulia on 03/04/19 obsolete on 2019-02 OBSOLETE Refill (FPWADS) [facility]03-2019 [id number] 1950 [facility] Time Provider Department ([id number]) 03/03/19 ALAINA ERICKSON FPWADS During your visit today, we recorded the following informati on about you: Elvira Blackmon 03/03/2019 2:58 PM Signed Valid refill at pharmacy. Elvira Blackmon Allergies As of Date: 03/03/2019 Noted Allergy Reaction ADHESIVE TAPE (ROSINS) 12/05/2016 2 - Rash BACTRIM DS (SULFAMETHOXAZOLE-TRIM*12/29/2014 10 - Anaphylaxi s Comments: Difficulty breathing, fever, chills BEE STING 08/28/2012 10 - Anaphylaxis DARVON (PROPOXYPHENE HCL) 05/15/2007 INFLUENZA VIRUS VACCINES 01/07/2019 14 - Other: See Comments Comments: Chest tightness, arm swelling. PREDNISONE 03/07/2016 8 - GI Upset Date Reviewed: 02/09/2019 [facility] - Fully Assessed Reason for Visit: Refill Request [94] Visit Diagnosis:Essential hypertension [I10] Prescriptions as of 03/03/2019 Sig: NITROFURANTOIN MONOHYDRATE AND * Take 1 capsule by mouth twi ce* WARFARIN 2 MG TABLET Take 2 mg by mouth. LISINOPRIL 10 MG TABLET Take 1 tablet by mouth once d* EPINEPHRINE 0.3 MG/0.3 ML INJ* Inject 0.3 mL intramuscularly * ALBUTEROL SULFATE HFA 90 MCG/* Inhale 2 Puffs as instructed * FLUTICASONE 100 MCG-SALMETERO* Inhale 1 Puff as instructed t * MECLIZINE 25 MG TABLET Take 1 tablet by mouth every * FLUTICASONE PROPIONATE 50 MCG* Use 2 Sprays in each nostril * BENZONATATE 100 MG CAPSULE Take 2 capsules by mouth thre* ATORVASTATIN 40 MG TABLET Take 1 tablet by mouth once d* PANTOPRAZOLE 20 MG TABLET,DEL* Take 1 tablet by mouth daily * ONDANSETRON 4 MG DISINTEGRATI* Take 1 tablet by mouth every * FLORAJEN BIFIDOBLEND 460 MG (* Take 1 capsule by mouth once * AMIODARONE 200 MG TABLET Take 200 mg by mouth once pancho* ELIQUIS 5 MG TABLET Take 5 mg by mouth twice ellie* METOPROLOL TARTRATE 25 MG TAB* Take 12.5 mg by mouth twice d * VERAPAMIL ER (SR) 240 MG TABL* TAKE 1 TABLET BY MOUTH EVERYD * AMMONIUM LACTATE 12 % LOTION Apply 1 application to affect* THIAMINE MONONITRATE (VITAMIN* Take 1 tablet by mouth once d * CYCLOSPORINE 0.05 % EYE DROPS* Use 1 Drop in both eyes twice * LORATADINE 10 MG TABLET Take 1 tablet by mouth once d* COMPOUNDED PRESCRIPTION NEBULIZER FOR HOME USE. DX: * ALBUTEROL SULFATE 2.5 MG/3 ML* Use 3 mL via nebulizer every * GLUCOSAMINE 1500 COMPLEX ORAL Take 1 tablet by mouth once d* Problem List As Of Date 03/03/2019 Noted Resolved Sebaceous cyst [L72.3] 05/15/2007 04/16/2012 Environmental allergies [Z91.09] Asthma [J45.909] More... Arthropathy, unspecified, site unspecified [M12* Essential hypertension [I10] More... IBS (irritable bowel syndrome) [K58.9] GERD (gastroesophageal reflux disease) [K21.9] More... Migraine [G43.909] More... Diverticulitis [K57.92] Hyperlipidemia, mixed [E78.2] More... Fracture of finger, middle or proximal phalanx,*08/28/2012 History of colon polyps [Z86.010] Chronic pain of right knee [M25.561, G89.29] 12/13/2015 Primary osteoarthritis of right knee [M17.11] 12/13/2015 BPPV (benign paroxysmal positional vertigo) [H8*04/04/2016 Bee sting allergy [Z91.030] 12/11/2017 Bilateral low back pain with bilateral sciatica*12/27/2017 More... Calculus of kidney [N20.0] 05/09/2018 More... LLQ pain [R10.32] 05/27/2018 TIA (transient ischemic attack) [G45.9] 07/29/2018 Dry skin [L85.3] 09/03/2018 Atrial fibrillation with rapid ventricular resp*12/30/2018 Encounter Status:Closed by ELVIRA BLACKMON on 03/03/19 cnco on 2019-02-22 CNCO Letter Text Normal 02-22-2019 [facility] ([id number]) urine culture on 13-02-15 Bacteria Sp. Request/Comment: - Specimen received in preservative Critically 02-09-2019 [place] identified Cx Culture Result - >=100,000 C FU/ml Escherichia coli --> ABNORMAL ALERT 50,000 - <100,000 CFU/ml Normal urogenital [facility] abnormal [facility] (U) ORGANISM: Escherichia coli [place] METHOD: Minimum inhibitory concentration([employer]) ([id number]) Antibiotic Interp CARITO Status Ampicillin RESISTANT >=32 F Gentamicin SUSCEPTIBLE <=1 F Trimeth sulfameth SUSCEPTIBLE <=20 F Cefazolin SUSCEPTIBLE <=4 F CLSI breakpoints for therapy of uncomplicated UTI's due to E.coli, K.pneumoniae, and P.mirabilis were applied and may be used to predict the activity of oral agents(cefaclor, cefdinir, cefpodoxime, cefp rozil, cefuroxime, cephalexin, loracarbef). Ciprofloxacin RESISTANT >=4 F Nitrofurantoin SUSCEPTIBLE <=16 F Cefepime SUSCEPTIBLE <=1 F Piperacillin/Tazobac SUSCEPTIBLE <=4 F Ampicillin Sulbact INTERMEDIATE 16 F Ceftriaxone SUSCEPTIBLE <=1 F Meropenem SUSCEPTIBLE <=0.25 F Ertapenem SUSCEPTIBLE <=0.5 F Comment: Performed By: #### URCUL ### #[facility] [id number] [place], [place] [phone] progress on 2019-01 PROGRESS HNO ID: [id number] Normal 02-09-2019 [place] Author: Aranza Rodriguez) [facility] Service: ? [place] Author Type: Nurse Practitioner ([id number]) Type: Progress Notes Filed: 02/09/2019 10:51 AM Note Text: Subjective HPI Romain Bailey is a 68 year old female who presents wit h c/o dysuria and frequency since yesterday. She has not had a fever. She has not taken any medication at home for her symptoms. Review of Systems Constitutional: Negative. Negative for fever. Respiratory: Negative. Cardiovascular: Negative. Gastrointestinal: Negative. Negative for abdominal pain. Genitourinary: Positive for dysuria, frequency and urgency. Negative for flank pain and hematuria. Musculoskeletal: Negative for back pain. BP 140/82 Pulse 66 Temp 36 ?C (96.8 ?F) (Left Tympanic) Resp 16 Wt 83.6 kg (184 lb 3.2 oz) BMI 29.73 kg/m? PAST MEDICAL HISTORY Diagnosis Date - Arthropathy, unspecified, site unspecified - Asthma - Back pain - Calculus of kidney 05/09/2018 - Colon polyps 2013 - Diverticulitis 2000 - Environmental allergies - GERD (gastroesophageal reflux disease) - Hyperlipidemia lifestyle controlled - Hypertension - IBS (irritable bowel syndrome) - Migraine - Obesity PAST SURGICAL HISTORY Procedure Laterality Date - COLONOSCOP W/ OR W/O BRSH SPEC 05/29/2018 Colonoscopy - COLONOSCOPY AND POLYPECTOMY 12/03/2013 tubular adenoma, hyperplastic polyp; repeat due in 5y - DEBRIDE SKIN AND SUBQ TISSU 05/15/07 Debridement infected moira cyst upper mid back - PAST SURGICAL HISTORY OF 1984 metal removed from right tibial area - PAST SURGICAL HISTORY OF DANDC - REMOVAL GALLBLADDER ~2003 Cholecystectomy laparoscopic - TOTAL ABDOM HYSTERECTOMY 1999 MAURICE/BSO-pain, no abnormal paps ALLERGIES Adhesive Tape (Rosins); Bactrim Ds [Sulfamethoxazole-Trimethoprim]; Bee Sting; Darvon [Propoxyp hene Hcl]; Influenza Virus Vaccines; Prednisone MEDICATIONS warfarin (COUMADIN) 2 mg tablet Take 2 mg by mouth. lisinopril (ZESTRIL, PRINIVIL) 10 mg tablet Take 1 tablet by mouth once daily. EPINEPHrine (AUVI-Q) 0.3 mg/0.3 mL auto-injector Inject 0.3 mL intramuscularly as needed. albuterol HFA (VENTOLIN HFA) 90 mcg/actuation inhaler Inhale 2 Puffs as instructed every 6 hours as needed. fluticasone-salmeterol (ADVAIR DISKUS) 100-50 mcg/dose dsdv Inhale 1 Puff as instructed twice daily. RINSE AND GARGLE MOUTH WITH WATER AFTER EACH USE. meclizine (ANTIVERT) 25 mg tab Take 1 tablet by mouth every 6 hours as needed (dizziness). fluticasone (FLONASE) 50 mcg/actuation nasal spray Use 2 Spr ays in each nostril once daily. benzonatate (TESSALON PERLES) 100 mg capsule Take 2 capsules by mouth three times daily as needed. atorvastatin (LIPITOR) 40 mg tablet Take 1 tablet by mouth o nce daily. pantoprazole DR (PROTONIX) 20 mg tablet Take 1 tablet by robert th daily before breakfast. Take on empty stomach, 1/2 hr before meal. ondansetron orally disintegrating (ZOFRAN ODT) 4 mg disinteg rating tablet Take 1 tablet by mouth every 6 hours as needed for Nausea/Vo miting. bifidobacteri bifid.and longum (FLORAJEN BIFIDOBLEND) 460 mg (9-1 bill.cell) cap Take 1 capsule by mouth once daily. amiodarone (PACERONE) 200 mg tablet Take 200 mg by mouth onc e daily. ELIQUIS 5 mg tab(s) Take 5 mg by mouth twice daily. metoprolol tartrate, short acting, (LOPRESSOR) 25 mg tablet Take 12.5 mg by mouth twice daily. verapamil SR (CALAN SR, ISOPTIN SR) 240 mg CR tablet TAKE 1 TABLET BY MOUTH EVERYDAY AT BEDTIME ammonium lactate (LAC-HYDRIN) 12 % lotion Apply 1 applicatio n to affected area as needed for Dry Skin (arms). cycloSPORINE (RESTASIS) 0.05 % ophthalmic emulsion Use 1 Joon p in both eyes twice daily. Both eyes. loratadine (CLARITIN) 10 mg tablet Take 1 tablet by mouth on ce daily. Nebulizer NEBULIZER FOR HOME USE. DX: J45.20 albuterol (PROVENTIL) 2.5 mg /3 mL (0.083 %) nebulizer solut ion Use 3 mL via nebulizer every 4 hours as needed for Wheezing/Shortness of Breath. Use over 5-15minutes. GLUC BARR/CHONDRO BARR A/VIT C/MN (GLUCOSAMINE 1500 COMPLEX ORAL ) Take 1 tablet by mouth once daily. thiamine mononitrate (VITAMIN B1) 100 mg tab Take 1 tablet b y mouth once daily. FAMILY HISTORY Problem Relation Age of Onset - None Mother from fall - Diabetes Father - Ischemic Heart Disease Father d. [place] - Ischemic Heart Disease Maternal Grandfather d. CA while holding her at 4mo - Blindness Brother - Heart Attack Brother Social History Tobacco Use - Smoking status: Never Smoker - Smokeless tobacco: Never Used Substance Use Topics - Alcohol use: No - Drug use: No Objective Physical Exam Constitutional: She is oriented to person, place, and time a nd well-developed, well-nourished, and in no distress. Cardiovascular: Normal rate, regular rhythm and normal heart sounds. Pulmonary/Chest: Effort normal and breath sounds normal. No respiratory distress. She has no wheezes. She has no rales. Abdominal: Soft. Bowel sounds are normal. She exhibits no di stension and no mass. There is abdominal tenderness in the suprapubic are a. There is no guarding and no CVA tenderness. Neurological: She is alert and oriented to person, place, an d time. ASSESSMENT/PLAN: 1. Dysuria - ICD9: 788.1, ICD10: R30.0 acute - UA positive for radha esterase, hematuria and proteinuria - Send urine for culture - Begin treatment with Macrobid 100 mg BID for 5 days - Patient education for prevention given - UA DIP, URINE (POC) - URINE CULTURE - NITROFURANTOIN MONOHYDRATE AND MACROCRYSTAL 100 MG ORAL CA P - Follow-up with your PCP in 3-5 days if symptoms have not i mproved or sooner if symptoms worsen - Discussed red flags and need for immediate medical evaluat ion if any occur. - Discussed supportive care treatment with fluids, rest and analgesia. - Discussed expected course of illness Aranza Sanderson APRN.GIOVANNA elizabeth on 2019-02-09 CNOV Office Visit ([facility]) Normal 02-09- 19 [place] ROMAIN Marin ([id number]) 1950 [facility] Date Time Provider Department ([id number]) 02/09/19 10:30 AM ARANZA SANDERSON (NURSING STAFFING COORDINATOR) [facility] During your visit today, we recorded the following informati on about you: Temperature Pulse Respiration Blood pressure 96.8 degrees 66/minute 16/minute 140/82 Weight 83.6 kg Aranza Sanderson APRN.CNP 02/09/2019 10:51 AM Signed Subjective HPI Romain Bailey is a 68 year old female who presents with c/o dysuria and frequency since yesterday. She has not had a fever. She has not taken any medication at home for her symptoms. Review of Systems Constitutional: Negative. Negative for fever. Respiratory: Negative. Cardiovascular: Negative. Gastrointestinal: Negative. Negative for abdominal pain. Genitourinary: Positive for dysuria, khadar quency and urgency. Negative for flank pain and hematuria. Musculoskeletal: Negative for back pain. BP 140/82 Pulse 66 Temp 36 ?C (96.8 ?F) (Left Tympanic) Resp 16 Wt 83.6 kg (184 lb 3.2 oz) BMI 29.73 kg/m? PAST MEDICAL HISTORY Diagnosis Date - Arthropathy, unspecified, site unspecified - Asthma - Back pain - Calculus of kidney 05/09/2018 - Colon polyps 2013 - Diverticulitis 2000 - Environmental allergies - GERD (gastroesophageal reflux disease) - Hyperlipidemia lifestyle controlled - Hypertension - IBS (irritable bowel syndrome) - Migraine - Obesity PAST SURGICAL HISTORY Procedure Laterality Date - COLONOSCOP W/ OR W/O BRSH SPEC 05/29/2018 Colonoscopy - COLONOSCOPY AND POLYPECTOMY 12/03/2013 tubular adenoma, hyperplastic polyp; repeat due in 5y - DEBRIDE SKIN AND SUBQ TISSU 05/15/07 Debridement infected moira cyst upper mid back - PAST SURGICAL HISTORY OF 1984 metal removed from right tibial area - PAST SURGICAL HISTORY OF DANDC - REMOVAL GALLBLADDER ~2003 Cholecystectomy laparoscopic - TOTAL ABDOM HYSTERECTOMY 1999 MAURICE/BSO-pain, no abnormal paps ALLERGIES Adhesive Tape (Rosins); Bactrim Ds [Barr lfamethoxazole-Trimethoprim]; Bee Sting; Darvon [Propoxyphene Hcl]; Influenza Virus Vaccin es; Prednisone MEDICATIONS warfarin (COUMADIN) 2 mg tablet Take 2 mg by mouth. lisinopril (ZESTRIL, PRINIVIL) 10 mg tab let Take 1 tablet by mouth once daily. EPINEPHrine (AUVI-Q) 0.3 mg/0.3 mL auto- injector Inject 0.3 mL intramuscularly as needed. albuterol HFA (VENTOLIN HFA) 90 mcg/actuation inhaler Inhale 2 Puffs as instructed every 6 hours as needed. fluticasone-salmeterol (ADVAIR DISKUS) 100-50 mcg/dose dsdv Inhale 1 Puff as instructed twice daily. RINSE AND GARGLE MOUTH WITH WATER AF TER EACH USE. meclizine (ANTIVERT) 25 mg tab Take 1 tablet by mouth every 6 hours as needed (dizziness). fluticasone (FLONASE) 50 mcg /actuation nasal spray Use 2 Sprays in each nostril once daily. benzonatate (TESSALON PERLES) 100 mg capsule Take 2 capsul es by mouth three times daily as needed. atorvastatin (LIPITOR) 40 mg tablet Take 1 tablet by mouth o nce daily. pantoprazole DR (PROTONIX) 20 mg tablet Take 1 tablet by m outh daily before breakfast. Take on empty stomach, 1/2 hr before meal. ondansetron orally disintegrating (ZOFRA N ODT) 4 mg disintegrating tablet Take 1 tablet by mouth every 6 hours as needed for Nausea/Vomitin g. bifidobacteri bifid.and longum (FLORAJEN BIFIDOBLEND) 460 mg (9-1 bill.cell) cap Take 1 capsule by mouth once daily. amiodarone (PACERONE) 200 mg tablet Take 200 mg by mouth onc e daily. ELIQUIS 5 mg tab(s) Take 5 mg by mouth twice daily. metoprolol tartrate, short acting, (LOPRESSOR) 25 mg table t Take 12.5 mg by mouth twice daily. verapamil SR (CALAN SR, ISOPTIN SR) 240 mg CR tablet TAKE 1 TABLET BY MOUTH EVERYDAY AT BEDTIME ammonium lactate (LAC-HYDRIN) 12 % lotio n Apply 1 application to affected area as needed for Dry Skin (arms). cycloSPORINE (RESTASIS) 0.05 % ophthalmic emulsion Use 1 Joon p in both eyes twice daily. Both eyes. loratadine (CLARITIN) 10 mg tablet Take 1 tablet by mouth on ce daily. Nebulizer NEBULIZER FOR HOME USE. DX: J45.20 albuterol (PROVENTIL) 2.5 mg /3 mL (0.083 %) nebulizer solution Use 3 mL via nebulizer every 4 hours as needed for Wheezing/Shortne ss of Breath. Use over 5-15minutes. GLUC BARR/CHONDRO BARR A/VIT C/MN (GLUCOSAMI NE 1500 COMPLEX ORAL) Take 1 tablet by mouth once daily. thiamine mononitrate (VITAMI N B1) 100 mg tab Take 1 tablet by mouth once daily. FAMILY HISTORY Problem Relation Age of Onset - None Mother from fall - Diabetes Father - Ischemic Heart Disease Father d. [place] - Ischemic Heart Disease Maternal Grandfather d. CA while holding her at 4mo - Blindness Brother - Heart Attack Brother Social History Tobacco Use - Smoking status: Never Smoker - Smokeless tobacco: Never Used Substance Use Topics - Alcohol use: No - Drug use: No Objective Physical Exam Constitutional: She is oriented to perso n, place, and time and well-developed, well-nourished, and in no distress. Cardiovascular: Normal rate, regular rhythm and normal heart sounds. Pulmonary/Chest: Effort normal and breath sounds normal. No respiratory distress. She has no wheezes. She has no rales. Abdominal: Soft. Bowel sounds are normal. She exhibits no distension and no mass. There is abdominal tenderness in the suprapubic area. There is no guarding and no CVA tenderness. Neurological: She is alert and oriented to person, place, an d time. ASSESSMENT/PLAN: 1. Dysuria - ICD9: 788.1, ICD10: R30.0 acute - UA positive for radha esterase, hematuria and proteinuria - Send urine for culture - Begin treatment with Macrobid 100 mg BID for 5 days - Patient education for prevention given - UA DIP, URINE (POC) - URINE CULTURE - NITROFURANTOIN MONOHYDRATE AND MACROCRYSTAL 100 MG ORAL CA P - Follow-up with your PCP in 3-5 days if symptom s have not improved or sooner if symptoms worsen - Discussed red flags and need for immediate med ical evaluation if any occur. - Discussed supportive care treatment with fluids, rest and analgesia. - Discussed expected course of illness ALVARO Mcneil APRN.CNP 02/09/2019 10:45 AM Addendum Patient Education for Adult Female Urinary Tract Infections Possible complications: Pyelonephritis Renal abscess ASSESSMENT/PLAN: 1. Dysuria - ICD9: 788.1, ICD10: R30.0 acute - UA positive for radha esterase, hematuria and proteinuria - Send urine for culture - Begin treatment with Macrobid 100 mg BID for 5 days - Patient education for prevention given - UA DIP, URINE (POC) - URINE CULTURE - NITROFURANTOIN MONOHYDRATE AND MACROCRYSTAL 100 MG ORAL CA P - Follow-up with your PCP in 3-5 days if symptom s have not improved or sooner if symptoms worsen - Discussed red flags and need for immediate med ical evaluation if any occur. - Discussed supportive care treatment with fluids, rest and analgesia. - Discussed expected course of illness Aranza Sanderson APRN.NURSING STAFFING COORDINATOR Expected course/prognosis: * Symptoms resolve within 2-3 days after starting treatment in almost all patients * One-fourth of women with simple UTI ex perience a second UTI within 6 months, and half at some time during lifetime. * Women with frequent or intercourse-related UTI should empt y bladder immediately before and following intercourse. Instructions: * Maintain good hydration * Avoid sexual intercourse when symptoms present *Take antibiotic as directed * Return if symptoms not resolved or markedly improved withi n 48 hours * If taking prophylactic antibiotics, take at bedtime * Take showers instead of tub baths * Avoid feminine hygiene sprays and scented douches * Wipe urethra from front to back *Go to the Emergency room if fever, chills, or flank pain de velop Please call your PCP if you are not feeling better in 3-5 da ys. You can try taking OTC Uristat (pyridium) if needed for burn ing. *Beware that it will turn your urine orange/red. *Avoid wearing contacts if taking pyridium it could discolor the lenses. Referring Provider: SELF [[id number]] Allergies As of Date: 02/09/2019 Noted Allergy Reaction ADHESIVE TAPE (ROSINS) 12/05/2016 2 - Rash BACTRIM DS (SULFAMETHOXAZOLE-TRIM*12/29/2014 10 - Anaphylaxi s Comments: Difficulty breathing, fever, chills BEE STING 08/28/2012 10 - Anaphylaxis DARVON (PROPOXYPHENE HCL) 05/15/2007 INFLUENZA VIRUS VACCINES 01/07/2019 14 - Other: See Comments Comments: Chest tightness, arm swelling. PREDNISONE 03/07/2016 8 - GI Upset Date Reviewed: 02/09/2019 Reviewed by: Aranza ([facility]) Maria E - Fully Assessed Reason for Visit: UTI [116] Primary Visit Diagnosis:Dysuria [R30.0] Order(s):UA DIP, URINE (POC) [[id number]] Order #: [id number] ec. #:[id number] URINE CULTURE [SQURCUL] Order #: [id number] nitrofurantoin monohydrate and macrocrystal (MACROBID) 100 m g capsuleTake 1 capsule by mouth twice daily.Disp: 10 capsuleR fl: 0 Prescriptions as of 02/09/2019 Sig: WARFARIN 2 MG TABLET Take 2 mg by mouth. LISINOPRIL 10 MG TABLET Take 1 tablet by mouth once d* EPINEPHRINE 0.3 MG/0.3 ML INJ* Inject 0.3 mL intramuscularly * ALBUTEROL SULFATE HFA 90 MCG/* Inhale 2 Puffs as instructed * FLUTICASONE 100 MCG-SALMETERO* Inhale 1 Puff as instructed t * MECLIZINE 25 MG TABLET Take 1 tablet by mouth every * FLUTICASONE PROPIONATE 50 MCG* Use 2 Sprays in each nostril * BENZONATATE 100 MG CAPSULE Take 2 capsules by mouth thre* ATORVASTATIN 40 MG TABLET Take 1 tablet by mouth once d* PANTOPRAZOLE 20 MG TABLET,DEL* Take 1 tablet by mouth daily * ONDANSETRON 4 MG DISINTEGRATI* Take 1 tablet by mouth every * FLORAJEN BIFIDOBLEND 460 MG (* Take 1 capsule by mouth once * AMIODARONE 200 MG TABLET Take 200 mg by mouth once pancho* ELIQUIS 5 MG TABLET Take 5 mg by mouth twice ellie* METOPROLOL TARTRATE 25 MG TAB* Take 12.5 mg by mouth twice d * VERAPAMIL ER (SR) 240 MG TABL* TAKE 1 TABLET BY MOUTH EVERYD * AMMONIUM LACTATE 12 % LOTION Apply 1 application to affect* CYCLOSPORINE 0.05 % EYE DROPS* Use 1 Drop in both eyes twice * LORATADINE 10 MG TABLET Take 1 tablet by mouth once d* COMPOUNDED PRESCRIPTION NEBULIZER FOR HOME USE. DX: * ALBUTEROL SULFATE 2.5 MG/3 ML* Use 3 mL via nebulizer every * GLUCOSAMINE 1500 COMPLEX ORAL Take 1 tablet by mouth once d* NITROFURANTOIN MONOHYDRATE AND * Take 1 capsule by mouth twi ce* THIAMINE MONONITRATE (VITAMIN* Take 1 tablet by mouth once d * Problem List As Of Date 02/09/2019 Noted Resolved Sebaceous cyst [L72.3] 05/15/2007 04/16/2012 Environmental allergies [Z91.09] Asthma [J45.909] More... Arthropathy, unspecified, site unspecified [M12* Essential hypertension [I10] More... IBS (irritable bowel syndrome) [K58.9] GERD (gastroesophageal reflux disease) [K21.9] More... Migraine [G43.909] More... Diverticulitis [K57.92] Hyperlipidemia, mixed [E78.2] More... Fracture of finger, middle or proximal phalanx,*08/28/2012 History of colon polyps [Z86.010] Chronic pain of right knee [M25.561, G89.29] 12/13/2015 Primary osteoarthritis of right knee [M17.11] 12/13/2015 BPPV (benign paroxysmal positional vertigo) [H8*04/04/2016 Bee sting allergy [Z91.030] 12/11/2017 Bilateral low back pain with bilateral sciatica*12/27/2017 More... Calculus of kidney [N20.0] 05/09/2018 More... LLQ pain [R10.32] 05/27/2018 TIA (transient ischemic attack) [G45.9] 07/29/2018 Dry skin [L85.3] 09/03/2018 Atrial fibrillation with rapid ventricular resp*12/30/2018 Other instructions from your clinician: Patient Education for Adult Female Urinary Tract Infections Possible complications: Pyelonephritis Renal abscess ASSESSMENT/PLAN: 1. Dysuria - ICD9: 788.1, ICD10: R30.0 acute - UA positive for radha esterase, hematuria and proteinuria - Send urine for culture - Begin treatment with Macrobid 100 mg BID for 5 days - Patient education for prevention given - UA DIP, URINE (POC) - URINE CULTURE - NITROFURANTOIN MONOHYDRATE AND MACROCRYSTAL 100 MG ORAL CA P - Follow-up with your PCP in 3-5 days if symptoms have not i mproved or sooner if symptoms worsen - Discussed red flags and need for immediate medical evaluat ion if any occur. - Discussed supportive care treatment with fluids, rest and analgesia. - Discussed expected course of illness Aranza Sanderson APRN.CNP Expected course/prognosis: * Symptoms resolve within 2-3 days after starting treatment in almost all patients * One-fourth of women with simple UTI experience a second UT I within 6 months, and half at some time during lifetime. * Women with frequent or intercourse-related UTI should empt y bladder immediately before and following intercourse. Instructions: * Maintain good hydration * Avoid sexual intercourse when symptoms present *Take antibiotic as directed * Return if symptoms not resolved or markedly improved withi n 48 hours * If taking prophylactic antibiotics, take at bedtime * Take showers instead of tub baths * Avoid feminine hygiene sprays and scented douches * Wipe urethra from front to back *Go to the Emergency room if fever, chills, or flank pain de velop Please call your PCP if you are not feeling better in 3-5 da ys. You can try taking OTC Uristat (pyridium) if needed for burn ing. *Beware that it will turn your urine orange/red. *Avoid wearing contacts if taking pyridium it could discolor the lenses. Prescriptions ordered this encounter Disp Refills Start End NITROFURANTOIN MONOHYDRATE AND MACROCR* 10 c* 0 02/09/2019 Route: ORAL Sig: Take 1 capsule by mouth twice daily. Encounter Status:Closed by ARANZA SANDERSON on 02/09/19 progress on 2019-01 PROGRESS HNO ID: [id number] Normal 02-07-2019 [facility] Author: Alaina Erickson [place] ([id number]) Service: ? Author Type: Physician Type: Progress Notes Filed: 02/07/2019 1:46 PM Note Text: CHIEF COMPLAINT Patient presents with: Recheck HISTORY OF PRESENT ILLNESS Romain Bailey is a 68 year old female who presents here to day for reevaluation of multiple medical problems. I last saw this p atient on 12/30/2018. No significant changes since last visit Breathing Pneumonia was contracted 2 months ago resulting in hospitali zation Breathing is doing ok with current treatment (albuterol, Albert nase, Advair, and nebulizer) No longer using tessalon perles since pneumonia resolved She has not had a follow up x ray to verify it is cleared Following with pulmonology in February (1 month Cardiac Health History of TIA and a-fib Last notice racing heart a few days ago at work during a bus y shift INR level was low at last check; Coumadin was increased acco rdingly Following with Dr. Sampson in cardiology Next follow up in June (5 months) No present concerns Hypertension BP elevated today No recent med changes from Dr. Sampson She reports intermittent swelling in ankles Vertigo History of vertigo episodes No recent symptoms Not taking meclizine, has some on hand just in case Bee Sting Allergy No recent incidents; she still has epipen on hand Health Maintenance Due for routine mammogram and pneumo vaccine Past medical history, appointments, medications, allergies r eviewed. REVIEW OF SYSTEMS Pertinent positives/ negatives: General: Feels well, no weight changes, fever, chills. Neuro: +Vetigo (intermittent, infrequent) Cardiac: +Atrial fibrillation, +Palpitations Resp: No difficulty breathing (pneumonia resolved) PAST MEDICAL HISTORY TIA, hypertension, hyperlipidemia, atrial fibrillation, migr melba, IBS, GERD, diverticulitis, bilateral low back pain PHYSICAL EXAMINATION BP 141/70 (BP Site: Left Arm, BP Position: Sitting, BP Cuff Size: Regular Adult) Pulse (!) 58 Temp 36.6 ?C (97.8 ?F) Ht 167.6 cm (5' 6) Wt 84.2 kg (185 lb 9.6 oz) BMI 29.96 kg/m? Repeat BP: 140/72 General: Alert, well developed, well nourished, no distress, pleasant and cooperative. Heart: Regular rate and rhythm. Normal S1 and S2. No murmurs , rubs, or gallops. Lungs: Clear to auscultation bilaterally. No respiratory dis tress. No wheezes, rales, or rhonchi. Data Reviewed 12/03/2018: Urine culture negative -UA Dip: moderate hemoglobin, trace protein, moderate leukocytes 07/30/2018: BMP within normal limits -CBC within normal limits -Glucose within normal limits -Lipid panel within normal limits -HGB A1C within normal limits Assessment/Plan (I48.91) Atrial fibrillation with rapid ventricular response (HCC) (primary encounter diagnosis) Comment: Stable. One recent symptomatic episode noted Plan: Continue regimen -Follow with Dr. Sampson as scheduled (I10) Essential hypertension Comment: Blood pressure remains high on current regimen. Add itional medication is warranted at this time Plan: lisinopril (ZESTRIL, PRINIVIL) 10 mg tablet -Begin lisinopril; discussed possible side effects, warned o f possible dry cough (J18.9) Pneumonia, unspecified organism (J45.30) Mild persistent asthma without complication Comment: No current symptoms, seems to be resolved Plan: XR CHEST 2V FRONTAL/LAT, PNEUMOCOCCAL IMMUNIZATION PPSV 23 -Continue use of inhalers and nebulizer as before -Pneumo vax in office -Obtain follow up x ray to verify clearance of disease from lungs (H81.10) Benign paroxysmal positional vertigo, unspecified l aterality Comment: Stable, no recent symptoms Plan: Use meclizine if needed (Z12.31) Screening mammogram, encounter for Comment: Due for routine screening Plan: KENNY SCREENING (Z23) Need for 23-polyvalent pneumococcal polysaccharide vac cine Plan: PNEUMOCOCCAL IMMUNIZATION PPSV 23 Signed Prescriptions Disp Refills lisinopril (ZESTRIL, PRINIVIL) 10 mg tablet 30 tablet 2 Sig: Take 1 tablet by mouth once daily. RTO: As indicated by imaging and screening results; will sta y in contact Scribe Attestation: By signing my name below, I, Toro Rawls, attest that this d ocumentation has been prepared under the direction and in the presence of Paul Erickson M.D.. Electronically Signed: Rachael Gordon. February 07 10:30 AM. Provider Attestation: I, Alaina Erickson MD, personally performed the services albin cribed in this documentation. All medical record entries made by the scribe were at my direction and in my presence. I have reviewed the chart and discharge instructions (if applicable) and agree that the record refle cts my personal performance and is accurate and complete. Evangelinachristiano ted Signed: Alaina Erickson MD. February 07, 2019 1:46 PM cnov on 2019-02-07 CNOV Office Visit (FPWADS) Normal 02-07- 19 [facility] ROMAIN BAILEY ([id number]) 1950 [facility] Date Time Provider Department ([id number]) 02/07/19 10:20 AM ALAINA ERICKSON During your visit today, we recorded the following informati on about you: Temperature Pulse Blood pressure Weight 97.8 degrees 58/minute 141/70 84.2 kg Height 1.676 m Alaina Erickson MD 02/07/2019 1:46 PM Signed CHIEF COMPLAINT Patient presents with: Recheck HISTORY OF PRESENT ILLNESS Romain Bailey is a 68 year old female who presents here to day for reevaluation of multiple medical problems. I last saw this p atient on 12/30/2018. 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 Sampson in cardiology Next follow up in June (5 months) No present concerns Hypertension BP elevated today No recent med changes from Dr. Sampson She reports intermittent swelling in ankles Vertigo History of vertigo episodes No recent symptoms Not taking meclizine, has some on hand just in case Bee Sting Allergy No recent incidents; she still has epipen on hand Health Maintenance Due for routine mammogram and pneumo vaccine Past medical history, appointments, medications, allergies r eviewed. REVIEW OF SYSTEMS Pertinent positives/ negatives: General: Feels well, no weight changes, fever, chills. Neuro: +Vetigo (intermittent, infrequent) Cardiac: +Atrial fibrillation, +Palpitations Resp: No difficulty breathing (pneumonia resolved) PAST MEDICAL HISTORY TIA, hypertension, hyperlipidemia, atrial fibrillation , migraine, IBS, GERD, diverticulitis, bilateral low back pain PHYSICAL EXAMINATION BP 141/70 (BP Site: Left Arm, BP Position: Sitting, BP Cuff Size: Regular Adult) Pulse (!) 58 Temp 36.6 ?C (97.8 ?F) Ht 167.6 cm (5' 6) Wt 84.2 kg (185 lb 9.6 oz) BMI 29.96 kg/m? Repeat BP: 140/72 General: Alert, well developed, well nourished, no distress, pleasant and cooperative. Heart: Regular rate and rhythm. Normal S1 and S2. No murmurs , rubs, or gallops. Lungs: Clear to auscultation bilaterally . No respiratory distress. No wheezes, rales, or rhonchi. Data Reviewed 12/03/2018: Urine culture negative -UA Dip: moderate hemoglobin, trace protein, moderate leukoc ytes 07/30/2018: BMP within normal limits -CBC within normal limits -Glucose within normal limits -Lipid panel within normal limits -HGB A1C within normal limits Assessment/Plan (I48.91) Atrial fibrillation with rapid ventricular respon se (HCC) (primary encounter diagnosis) Comment: Stable. One recent symptomatic episode noted Plan: Continue regimen -Follow with Dr. Sampson as scheduled (I10) Essential hypertension Comment: Blood pressure remains high on current regimen. Additional medication is warranted at this time Plan: lisinopril (ZESTRIL, PRINIVIL) 10 mg tablet -Begin lisinopril; discussed possible side effects, warned o f possible dry cough (J18.9) Pneumonia, unspecified organism (J45.30) Mild persistent asthma without complication Comment: No current symptoms, seems to be resolved Plan: XR CHEST 2V FRONTAL/LAT, PNEUMOCOCCAL IMMUNIZATION PPSV 23 -Continue use of inhalers and nebulizer as before -Pneumo vax in office -Obtain follow up x ray to verify clearance of disease from lungs (H81.10) Benign paroxysmal positional vertigo, unspecified l aterality Comment: Stable, no recent symptoms Plan: Use meclizine if needed (Z12.31) Screening mammogram, encounter for Comment: Due for routine screening Plan: KENNY SCREENING (Z23) Need for 23-polyvalent pneumococcal polysaccharide vac cine Plan: PNEUMOCOCCAL IMMUNIZATION PPSV 23 Signed Prescriptions Disp Refills lisinopril (ZESTRIL, PRINIVIL) 10 mg tablet 30 tablet 2 Sig: Take 1 tablet by mouth once daily. RTO: As indicated by imaging and screening results; will sta y in contact Scribe Attestation: By signing my name below, IToro, attest that this documentation has been prepared under the direction and in the presence of Paul Erickson M.D.. Electronically Signed: Rachael Gordon. February 07 10:30 AM. Provider Attestation: Alaina Harper MD, personally performed the services albin cribed in this documentation. All medical record entries made by the scribe were at my direction and in my presence. I have reviewed the chart and discharge instructions (if applicable) and agree that the record ref lects my personal performance and is accurate and complete. Electronically Sig ailyn: Alaina Erickson MD. February 07, 2019 1:46 PM Referring Provider: SELF [200] Allergies As of Date: 02/07/2019 Noted Allergy Reaction ADHESIVE TAPE (ROSINS) 12/05/2016 2 - Rash BACTRIM DS (SULFAMETHOXAZOLE-TRIM*12/29/2014 10 - Anaphylaxi s Comments: Difficulty breathing, fever, chills BEE STING 08/28/2012 10 - Anaphylaxis DARVON (PROPOXYPHENE HCL) 05/15/2007 INFLUENZA VIRUS VACCINES 01/07/2019 14 - Other: See Comments Comments: Chest tightness, arm swelling. PREDNISONE 03/07/2016 8 - GI Upset Date Reviewed: 02/07/2019 Reviewed by: Naheed Bang Ma - Fully Assessed Reason for Visit: Recheck [92] Primary Visit Diagnosis:Atrial fibrillation with rapid tennille tricular response (HCC) [I48.91] Other Visit Diagnoses:Essential hypertension [I10] Pneumonia, unspecified organism [J18.9] Mild persistent asthma without complication [J45.30] Benign paroxysmal positional vertigo, unspecified laterality [H81.10] Screening mammogram, encounter for [Z12.31] Need for 23-polyvalent pneumococcal polysaccharide vaccine [Z23] Order(s):lisinopril (ZESTRIL, PRINIVIL) 10 mg tabletTake 1 t ablet by mouth once daily.Disp: 30 tabletRfl: 2 XR CHEST 2V FRONTAL/LAT [[id number]] Order #: [id number] FUTURE PNEUMOCOCCAL IMMUNIZATION PPSV 23 [[id number]] Order #: [id number] KENNY SCREENING [[id number]] Order #: [id number] FUTURE Prescriptions as of 02/07/2019 Sig: EPINEPHRINE 0.3 MG/0.3 ML INJ* Inject 0.3 mL intramuscularly * ALBUTEROL SULFATE HFA 90 MCG/* Inhale 2 Puffs as instructed * FLUTICASONE 100 MCG-SALMETERO* Inhale 1 Puff as instructed t * MECLIZINE 25 MG TABLET Take 1 tablet by mouth every * FLUTICASONE PROPIONATE 50 MCG* Use 2 Sprays in each nostril * BENZONATATE 100 MG CAPSULE Take 2 capsules by mouth thre* ATORVASTATIN 40 MG TABLET Take 1 tablet by mouth once d* PANTOPRAZOLE 20 MG TABLET,DEL* Take 1 tablet by mouth daily * ONDANSETRON 4 MG DISINTEGRATI* Take 1 tablet by mouth every * FLORAJEN BIFIDOBLEND 460 MG (* Take 1 capsule by mouth once * AMIODARONE 200 MG TABLET Take 200 mg by mouth once pancho* METOPROLOL TARTRATE 25 MG TAB* Take 12.5 mg by mouth twice d * VERAPAMIL ER (SR) 240 MG TABL* TAKE 1 TABLET BY MOUTH EVERYD * AMMONIUM LACTATE 12 % LOTION Apply 1 application to affect* CYCLOSPORINE 0.05 % EYE DROPS* Use 1 Drop in both eyes twice * LORATADINE 10 MG TABLET Take 1 tablet by mouth once d* COMPOUNDED PRESCRIPTION NEBULIZER FOR HOME USE. DX: * ALBUTEROL SULFATE 2.5 MG/3 ML* Use 3 mL via nebulizer every * WARFARIN 2 MG TABLET Take 2 mg by mouth. LISINOPRIL 10 MG TABLET Take 1 tablet by mouth once d* ELIQUIS 5 MG TABLET Take 5 mg by mouth twice ellie* THIAMINE MONONITRATE (VITAMIN* Take 1 tablet by mouth once d * GLUCOSAMINE 1500 COMPLEX ORAL Take 1 tablet by mouth once d* Problem List As Of Date 02/07/2019 Noted Resolved Sebaceous cyst [L72.3] 05/15/2007 04/16/2012 Environmental allergies [Z91.09] Asthma [J45.909] More... Arthropathy, unspecified, site unspecified [M12* Essential hypertension [I10] More... IBS (irritable bowel syndrome) [K58.9] GERD (gastroesophageal reflux disease) [K21.9] More... Migraine [G43.909] More... Diverticulitis [K57.92] Hyperlipidemia, mixed [E78.2] More... Fracture of finger, middle or proximal phalanx,*08/28/2012 History of colon polyps [Z86.010] Chronic pain of right knee [M25.561, G89.29] 12/13/2015 Primary osteoarthritis of right knee [M17.11] 12/13/2015 BPPV (benign paroxysmal positional vertigo) [H8*04/04/2016 Bee sting allergy [Z91.030] 12/11/2017 Bilateral low back pain with bilateral sciatica*12/27/2017 More... Calculus of kidney [N20.0] 05/09/2018 More... LLQ pain [R10.32] 05/27/2018 TIA (transient ischemic attack) [G45.9] 07/29/2018 Dry skin [L85.3] 09/03/2018 Atrial fibrillation with rapid ventricular resp*12/30/2018 Prescriptions ordered this encounter Disp Refills Start End LISINOPRIL 10 MG TABLET 30 t* 2 02/07/2019 Route: ORAL Sig: Take 1 tablet by mouth once daily. Disposition: Return if symptoms worsen or fail to improve. Follow-up and Disposition History Recorded Encounter Status:Closed by PAUL ERICKSON MD on 02/07/19 obsolete on 2019-01 OBSOLETE Refill (RYAN) Normal 02-06-2019 [facility] ROMAIN BAILEY ([id number]) 1950 [facility] Date Time Provider Department ([id number]) 02/06/19 ALAINA ERICKSON During your visit today, we recorded the following informati on about you: Elvira Blackmon 02/06/2019 2:26 PM Signed Pharmacy verified in [facility] Patient has been identified by name and date of : Yes Patient aware RX will be sent to pharmacy. No need to notify patient. Pharmacy phones for refill(s): Pending Prescriptions Disp Refills EPINEPHRINE 0.3 MG/0.3 ML INJECTION, AUTO-INJECTOR 2 Each 3 Sig: Inject 0.3 mL intramuscularly as needed. KIKO: No ALBUTEROL SULFATE HFA 90 MCG/ACTUATION AEROSOL INHALER 3 Inh aler 3 Sig: Inhale 2 Puffs as instructed every 6 hours as needed. KIKO: No FLUTICASONE 100 MCG-SALMETEROL 50 MCG/DOSE BLISTR POWDR FOR INHALATION 3 Inhaler 3 Sig: Inhale 1 Puff as instructed twice daily. RINSE AND ODELL LE MOUTH WITH WATER AFTER EACH USE. KIKO: No MECLIZINE 25 MG TABLET 90 tablet 0 Sig: Take 1 tablet by mouth every 6 hours as needed (dizzine ss). KIKO: No FLUTICASONE PROPIONATE 50 MCG/ACTUATION NASAL SPRAY,SUSPENSI ON 3 Bottle 3 Sig: Use 2 Sprays in each nostril once daily. KIKO: No BENZONATATE 100 MG CAPSULE 90 capsule 0 Sig: Take 2 capsules by mouth three times daily as needed. KIKO: No ATORVASTATIN 40 MG TABLET 90 tablet 3 Sig: Take 1 tablet by mouth once daily. KIKO: No PANTOPRAZOLE 20 MG TABLET,DELAYED RELEASE 90 tablet 3 Sig: Take 1 tablet by mouth daily before breakfast. Take on empty stomach, 1/2 hr before meal. KIKO: No ONDANSETRON 4 MG DISINTEGRATING TABLET 90 tablet 0 Sig: Take 1 tablet by mouth every 6 hours as needed for Naus ea/Vomiting. KIKO: No Date of last office visit : 12/30/2018 Date of next office visit : Visit date not found Last 2 Encounter Wt Readings: Date: Wt: 12/30/2018 82.8 kg (182 lb 9.6 oz) 12/03/2018 82.3 kg (181 lb 6.4 oz) Cholesterol: Triglyceride (mg/dL) Date Value 07/29/2018 52 HDL Cholesterol (mg/dL) Date Value 07/29/2018 45 LDL Cholesterol (mg/dL) Date Value 04/06/2018 107 LDL Calculated (mg/dL) Date Value 07/29/2018 95 ALT (U/L) Date Value 04/06/2018 14 Non HDL Cholesterol (mg/dL) Date Value 07/29/2018 105 Please advise. Elvira Erickson MD 02/06/2019 3:11 PM Signed The following approved medic ation requests have been transmitted electronically. Signed Prescriptions Disp Refills EPINEPHrine (AUVI-Q) 0.3 mg/0.3 mL auto-injector 2 Each 3 Sig: Inject 0.3 mL intramuscularly as needed. KIKO: No Authorizing Provider: ALAINA ERICKSON albuterol HFA (VENTOLIN HFA) 90 mcg/actuation inhaler 3 Inha ler 3 Sig: Inhale 2 Puffs as instructed every 6 hours as needed. KIKO: No Authorizing Provider: ALAINA ERICKSON fluticasone-salmeterol (ADVAIR DISKUS) 100-50 mcg/dose dsdv 3 Inhaler 3 Sig: Inhale 1 Puff as instructed twice daily. RINSE AND ODELL LE MOUTH WITH WATER AFTER EACH USE. KIKO: No Authorizing Provider: ALAINA ERICKSON meclizine (ANTIVERT) 25 mg tab 90 tablet 0 Sig: Take 1 tablet by mouth every 6 hours as needed (dizzine ss). KIKO: No Authorizing Provider: ALAINA ERICKSON fluticasone (FLONASE) 50 mcg/actuation nasal spray 3 Bottle 3 Sig: Use 2 Sprays in each nostril once daily. KIKO: No Authorizing Provider: ALAINA ERICKSON benzonatate (TESSALON PERLES) 100 mg capsule 90 capsule 0 Sig: Take 2 capsules by mouth three times daily as needed. KIKO: No Authorizing Provider: ALAINA ERICKSON atorvastatin (LIPITOR) 40 mg tablet 90 tablet 3 Sig: Take 1 tablet by mouth once daily. KIKO: No Authorizing Provider: ALAINA ERICKSON pantoprazole DR (PROTONIX) 20 mg tablet 90 tablet 3 Sig: Take 1 tablet by mouth daily before breakfast. Take on empty stomach, 1/2 hr before meal. KIKO: No Authorizing Provider: ALAINA ERICKSON ondansetron orally disintegrating (ZOFRAN ODT) 4 mg di sintegrating tablet 90 tablet 0 Sig: Take 1 tablet by mouth every 6 hours as needed for Naus ea/Vomiting. KIKO: No Authorizing Provider: ALAINA ERICKSON MD Allergies As of Date: 02/06/2019 Noted Allergy Reaction ADHESIVE TAPE (ROSINS) 12/05/2016 2 - Rash BACTRIM DS (SULFAMETHOXAZOLE-TRIM*12/29/2014 10 - Anaphylaxi s Comments: Difficulty breathing, fever, chills BEE STING 08/28/2012 10 - Anaphylaxis DARVON (PROPOXYPHENE HCL) 05/15/2007 INFLUENZA VIRUS VACCINES 01/07/2019 14 - Other: See Comments Comments: Chest tightness, arm swelling. PREDNISONE 03/07/2016 8 - GI Upset Date Reviewed: 12/30/2018 Reviewed by: Kristine Serra Ma - Fully Assessed Reason for Visit: Refill Request [94] Refill Request [94] Reason For Visit History Recorded Visit Diagnoses:Bee sting allergy [Z91.030] Mild persistent asthma with acute exacerbation [J45.31] Benign paroxysmal positional vertigo, unspecified laterality [H81.10] Environmental allergies [Z91.09] TIA (transient ischemic attack) [G45.9] Gastroesophageal reflux disease, esophagitis presence not specified [K21.9] Order(s):EPINEPHrine (AUVI-Q) 0.3 mg/0.3 mL auto-injectorInj ect 0.3 mL intramuscularly as needed.Disp: 2 EachRfl: 3 albuterol HFA (VENTOLIN HFA) 90 mcg/actuation inhalerInhale 2 Puffs as instructed every 6 hours as needed.Disp: 3 InhalerRfl: 3 fluticasone-salmeterol (ADVAIR DISKUS) 100-50 mcg/dose dsdvI nhale 1 Puff as instructed twice daily. RINSE AND GARGLE MOUTH WITH WATER AFTER EACH USE.Disp: 3 InhalerRfl: 3 meclizine (ANTIVERT) 25 mg tabTake 1 tablet by mouth every 6 hours as needed (dizziness).Disp: 90 tabletRfl: 0 fluticasone (FLONASE) 50 mcg/actuation nasal sprayUse 2 Spra ys in each nostril once daily.Disp: 3 BottleRfl: 3 benzonatate (TESSALON PERLES) 100 mg capsuleTake 2 capsules by mouth three times daily as needed.Disp: 90 capsuleRfl: 0 atorvastatin (LIPITOR) 40 mg tabletTake 1 tablet by mouth on ce daily.Disp: 90 tabletRfl: [address] (PROTONIX) 20 mg tabletTake 1 tablet by mout h daily before breakfast. Take on empty stomach, 1/2 hr before meal. Disp: 90 tabletRfl: 3 Prescriptions as of 02/06/2019 Sig: EPINEPHRINE 0.3 MG/0.3 ML INJ* Inject 0.3 mL intramuscularly * ALBUTEROL SULFATE HFA 90 MCG/* Inhale 2 Puffs as instructed * FLUTICASONE 100 MCG-SALMETERO* Inhale 1 Puff as instructed t * MECLIZINE 25 MG TABLET Take 1 tablet by mouth every * FLUTICASONE PROPIONATE 50 MCG* Use 2 Sprays in each nostril * BENZONATATE 100 MG CAPSULE Take 2 capsules by mouth thre* ATORVASTATIN 40 MG TABLET Take 1 tablet by mouth once d* PANTOPRAZOLE 20 MG TABLET,DEL* Take 1 tablet by mouth daily * X ONDANSETRON 4 MG DISINTEGRATI* Take 1 tablet by mouth ever y * FLORAJEN BIFIDOBLEND 460 MG (* Take 1 capsule by mouth once * AMIODARONE 200 MG TABLET Take 200 mg by mouth once pancho* ELIQUIS 5 MG TABLET Take 5 mg by mouth twice ellie* METOPROLOL TARTRATE 25 MG TAB* Take 12.5 mg by mouth twice d * VERAPAMIL ER (SR) 240 MG TABL* TAKE 1 TABLET BY MOUTH EVERYD * AMMONIUM LACTATE 12 % LOTION Apply 1 application to affect* THIAMINE MONONITRATE (VITAMIN* Take 1 tablet by mouth once d * CYCLOSPORINE 0.05 % EYE DROPS* Use 1 Drop in both eyes twice * LORATADINE 10 MG TABLET Take 1 tablet by mouth once d* COMPOUNDED PRESCRIPTION NEBULIZER FOR HOME USE. DX: * ALBUTEROL SULFATE 2.5 MG/3 ML* Use 3 mL via nebulizer every * GLUCOSAMINE 1500 COMPLEX ORAL Take 1 tablet by mouth once d* Problem List As Of Date 02/06/2019 Noted Resolved Sebaceous cyst [L72.3] 05/15/2007 04/16/2012 Environmental allergies [Z91.09] Asthma [J45.909] More... Arthropathy, unspecified, site unspecified [M12* Essential hypertension [I10] More... IBS (irritable bowel syndrome) [K58.9] GERD (gastroesophageal reflux disease) [K21.9] More... Migraine [G43.909] More... Diverticulitis [K57.92] Hyperlipidemia, mixed [E78.2] More... Fracture of finger, middle or proximal phalanx,*08/28/2012 History of colon polyps [Z86.010] Chronic pain of right knee [M25.561, G89.29] 12/13/2015 Primary osteoarthritis of right knee [M17.11] 12/13/2015 BPPV (benign paroxysmal positional vertigo) [H8*04/04/2016 Bee sting allergy [Z91.030] 12/11/2017 Bilateral low back pain with bilateral sciatica*12/27/2017 More... Calculus of kidney [N20.0] 05/09/2018 More... LLQ pain [R10.32] 05/27/2018 TIA (transient ischemic attack) [G45.9] 07/29/2018 Dry skin [L85.3] 09/03/2018 Atrial fibrillation with rapid ventricular resp*12/30/2018 Prescriptions ordered this encounter Disp Refills Start End EPINEPHRINE 0.3 MG/0.3 ML INJECTION,* 2 Ea* 3 02/06/2019 Route: INTRAMUSCULA Sig: Inject 0.3 mL intramuscularly as needed. ALBUTEROL SULFATE HFA 90 MCG/ACTUATI* 3 In* 3 02/06/2019 Cmt: Generic or brand: dispense inhaler preferre d by patient/insurance unless KIKO flag is selected. Route: INHALATION Sig: Inhale 2 Puffs as instructed every 6 hours as needed. FLUTICASONE 100 MCG-SALMETEROL 50 MC* 3 In* 3 02/06/2019 Route: INHALATION Sig: Inhale 1 Puff as instructed twice daily. RINSE AND ODELL LE MOUTH WITH WATER AFTER EACH USE. MECLIZINE 25 MG TABLET 90 t* 0 02/06/2019 Route: ORAL Sig: Take 1 tablet by mouth every 6 hours as needed (dizzine ss). FLUTICASONE PROPIONATE 50 MCG/ACTUAT* 3 Timur* 3 02/06/2019 Route: EACH NOSTRIL Sig: Use 2 Sprays in each nostril once daily. BENZONATATE 100 MG CAPSULE 90 c* 0 02/06/2019 Route: ORAL Sig: Take 2 capsules by mouth three times daily as needed. ATORVASTATIN 40 MG TABLET 90 t* 3 02/06/2019 02/06/2020 Route: ORAL Sig: Take 1 tablet by mouth once daily. PANTOPRAZOLE 20 MG TABLET,DELAYED RE* 90 t* 3 02/06/2019 Route: ORAL Sig: Take 1 tablet by mouth daily before breakfast. Take on empty stomach, 1/2 hr before meal. ONDANSETRON 4 MG DISINTEGRATING TABL* 90 t* 0 02/06/201908/2019 Route: ORAL Sig: Take 1 tablet by mouth every 6 hours as needed for Naus ea/Vomiting. Medications Discontinued During This Encounter EPINEPHrine (AUVI-Q) 0.3 mg/0.3 mL a* 2 Ea* 5 12/11/201701/2019 Route: INTRAMUSCULAR Sig: Inject 0.3 mL intramuscularly as needed. Disc: Reason for discontinue is not on file. albuterol HFA (VENTOLIN HFA) 90 mcg/* 1 In* 5 12/11/201701/2019 Route: INHALATION Sig: Inhale 2 Puffs as instructed every 6 hours as needed. Disc: Reason for discontinue is not on file. fluticasone-salmeterol (ADVAIR DISKU* 3 In* 4 01/15/201801/2019 Route: INHALATION Sig: Inhale 1 Puff as instru cted twice daily. RINSE AND GARGLE MOUTH WITH WATER AFTER EACH USE. Disc: Reason for discontinue is not on file. fluticasone (FLONASE) 50 mcg/actuati* 1 Timur* 11 07/18/201801/2019 Route: EACH NOSTRIL Sig: Use 2 Sprays in each nostril once daily. Disc: Reason for discontinue is not on file. benzonatate (TESSALON PERLES) 100 mg* 30 c* 0 05/15/201801/26 Route: ORAL Sig: Take 2 capsules by mouth three times daily as needed. Patient not taking: Reported on 08/30/2018 Disc: Reason for discontinue is not on file. atorvastatin (LIPITOR) 40 mg tablet 90 t* 3 08/30/2018 019 Route: ORAL Sig: Take 1 tablet by mouth once daily. Disc: Reason for discontinue is not on file. pantoprazole DR (PROTONIX) 20 mg tab* 90 t* 3 12/02/201801/26 Route: ORAL Sig: TAKE 1 TABLET BY MOUTH DAILY BEFORE BREAKFAST. TAKE ON EMPTY STOMACH, 1/2 HR BEFORE MEAL. Disc: Reason for discontinue is not on file. Encounter Status:Closed by ELVIRA BLACKMON on 03/17/19 cnco on 2019-01-31 [id number] obsolete on 2019-01 OBSOLETE Refill (FPWADS) Normal 01-27-2019 [facility] ROMAIN BAILEY ([id number]) 1950 [facility] Date Time Provider Department ([id number]) 01/27/19 ALAINA ERICKSON During your visit today, we recorded the following informati on about you: Daphnie Johnson 01/27/2019 10:10 AM Signed Patient has been identified by name and date of : Yes Pending Prescriptions Disp Refills FLORAJEN BIFIDOBLEND 460 MG (9-1 BILLION CELL) CAPSULE 30 ca psule 1 Sig: Take 1 capsule by mouth once daily. KIKO: No RX INSTRUCTIONS: Patient aware RX will be sent to pharmacy. No need to notify patient. Daphnie Monroe [facility] Neha Mary MA 01/27/2019 11:25 AM Signed Last appointment: 12/30/18 Next appointment: 01/31/19 Pharmacy verified in [facility]. Refill(s) requested: Pending Prescriptions Disp Refills FLORAJEN BIFIDOBLEND 460 MG (9-1 BILLION CELL) CAPSULE 30 ca psule 1 Sig: Take 1 capsule by mouth once daily. KIKO: No Order(s) pended. Please advise. Neha Mary MA, [facility] Alaina Erickson MD 01/27/2019 1:58 PM Signed The following approved medic ation requests have been transmitted electronically. Signed Prescriptions Disp Refills bifidobacteri bifid.and longum (FLORAJEN BIFIDOBLEND) 460 mg (9-1 bill.cell) cap 30 capsule 1 Sig: Take 1 capsule by mouth once daily. KIKO: No Authorizing Provider: ALAINA ERICKSON MD Allergies As of Date: 01/27/2019 Noted Allergy Reaction ADHESIVE TAPE (ROSINS) 12/05/2016 2 - Rash BACTRIM DS (SULFAMETHOXAZOLE-TRIM*12/29/2014 10 - Anaphylaxi s Comments: Difficulty breathing, fever, chills BEE STING 08/28/2012 10 - Anaphylaxis DARVON (PROPOXYPHENE HCL) 05/15/2007 INFLUENZA VIRUS VACCINES 01/07/2019 14 - Other: See Comments Comments: Chest tightness, arm swelling. PREDNISONE 03/07/2016 8 - GI Upset Date Reviewed: 12/30/2018 Reviewed by: Kristine Serra Ma - Fully Assessed Reason for Visit: Refill Request [94] Visit Diagnosis:Urinary frequency [R35.0] Order(s):bifidobacteri bifid.and longum (FLORAJEN BIFIDOBLEN D) 460 mg (9-1 bill.cell) capTake 1 capsule by mouth once daily.Disp: 30 capsuleRfl: 1 Prescriptions as of 01/27/2019 Sig: FLORAJEN BIFIDOBLEND 460 MG (* Take 1 capsule by mouth once * AMIODARONE 200 MG TABLET Take 200 mg by mouth once pancho* ELIQUIS 5 MG TABLET Take 5 mg by mouth twice ellie* METOPROLOL TARTRATE 25 MG TAB* Take 12.5 mg by mouth twice d * VERAPAMIL ER (SR) 240 MG TABL* TAKE 1 TABLET BY MOUTH EVERYD * PANTOPRAZOLE 20 MG TABLET,DEL* TAKE 1 TABLET BY MOUTH DAILY * ATORVASTATIN 40 MG TABLET Take 1 tablet by mouth once d* AMMONIUM LACTATE 12 % LOTION Apply 1 application to affect* THIAMINE MONONITRATE (VITAMIN* Take 1 tablet by mouth once d * FLUTICASONE PROPIONATE 50 MCG* Use 2 Sprays in each nostril * CYCLOSPORINE 0.05 % EYE DROPS* Use 1 Drop in both eyes twice * LORATADINE 10 MG TABLET Take 1 tablet by mouth once d* BENZONATATE 100 MG CAPSULE Take 2 capsules by mouth thre* Patient not taking: Reported on 08/30/2018 FLUTICASONE 100 MCG-SALMETERO* Inhale 1 Puff as instructed t * ALBUTEROL SULFATE HFA 90 MCG/* Inhale 2 Puffs as instructed * EPINEPHRINE 0.3 MG/0.3 ML INJ* Inject 0.3 mL intramuscularly * COMPOUNDED PRESCRIPTION NEBULIZER FOR HOME USE. DX: * ALBUTEROL SULFATE 2.5 MG/3 ML* Use 3 mL via nebulizer every * GLUCOSAMINE 1500 COMPLEX ORAL Take 1 tablet by mouth once d* Problem List As Of Date 01/27/2019 Noted Resolved Sebaceous cyst [L72.3] 05/15/2007 04/16/2012 Environmental allergies [Z91.09] Asthma [J45.909] More... Arthropathy, unspecified, site unspecified [M12* Essential hypertension [I10] More... IBS (irritable bowel syndrome) [K58.9] GERD (gastroesophageal reflux disease) [K21.9] More... Migraine [G43.909] More... Diverticulitis [K57.92] Hyperlipidemia, mixed [E78.2] More... Fracture of finger, middle or proximal phalanx,*08/28/2012 History of colon polyps [Z86.010] Chronic pain of right knee [M25.561, G89.29] 12/13/2015 Primary osteoarthritis of right knee [M17.11] 12/13/2015 BPPV (benign paroxysmal positional vertigo) [H8*04/04/2016 Bee sting allergy [Z91.030] 12/11/2017 Bilateral low back pain with bilateral sciatica*12/27/2017 More... Calculus of kidney [N20.0] 05/09/2018 More... LLQ pain [R10.32] 05/27/2018 TIA (transient ischemic attack) [G45.9] 07/29/2018 Dry skin [L85.3] 09/03/2018 Atrial fibrillation with rapid ventricular resp*12/30/2018 Prescriptions ordered this encounter Disp Refills Start End FLORAJEN BIFIDOBLEND 460 MG (9-1 ALONDRA* 30 c* 1 01/27/2019 Route: ORAL Sig: Take 1 capsule by mouth once daily. Medications Discontinued During This Encounter bifidobacteri bifid.and longum (GLENN* 30 c* 1 12/03/201801/27 Route: ORAL Sig: Take 1 capsule by mouth once daily. Disc: Reason for discontinue is not on file. Encounter Status:Closed by KRISTINE SERRA MA on 01/27/19 cnptoutrea on 201 11-06-18 CNPTOUTREA Patient Outreach ([facility]) Normal 1 03-16-2018 [facility] ROMAIN BAILEY ([id number]) 1950 [facility] Date Time Provider Department ([id number]) 01/14/19 ALAINA ERICKSON [facility] During your visit today, we recorded the following informati on about you: Allergies As of Date: 01/14/2019 Noted Allergy Reaction ADHESIVE TAPE (ROSINS) 12/05/2016 2 - Rash BACTRIM DS (SULFAMETHOXAZOLE-TRIM*12/29/2014 10 - Anaphylaxi s Comments: Difficulty breathing, fever, chills BEE STING 08/28/2012 10 - Anaphylaxis DARVON (PROPOXYPHENE HCL) 05/15/2007 INFLUENZA VIRUS VACCINES 01/07/2019 14 - Other: See Comments Comments: Chest tightness, arm swelling. PREDNISONE 03/07/2016 8 - GI Upset Date Reviewed: 12/30/2018 Reviewed by: Kristine Serra Ma - Fully Assessed Visit Diagnosis:Medication management [Z79.899] Order(s):TSH BLD [SQTSH] Order #: [id number] FUTURE MAGNESIUM BLD [SQMG1] Order #: [id number] FUTURE Prescriptions as of 01/14/2019 Sig: AMIODARONE 200 MG TABLET Take 200 mg by mouth once pancho* ELIQUIS 5 MG TABLET Take 5 mg by mouth twice ellie* METOPROLOL TARTRATE 25 MG TAB* Take 12.5 mg by mouth twice d * X BIFIDOBACTERIUM BIFIDUM AND L* Take 1 capsule by mouth onc e * VERAPAMIL ER (SR) 240 MG TABL* TAKE 1 TABLET BY MOUTH EVERYD * PANTOPRAZOLE 20 MG TABLET,DEL* TAKE 1 TABLET BY MOUTH DAILY * ATORVASTATIN 40 MG TABLET Take 1 tablet by mouth once d* AMMONIUM LACTATE 12 % LOTION Apply 1 application to affect* FLUTICASONE PROPIONATE 50 MCG* Use 2 Sprays in each nostril * CYCLOSPORINE 0.05 % EYE DROPS* Use 1 Drop in both eyes twice * LORATADINE 10 MG TABLET Take 1 tablet by mouth once d* BENZONATATE 100 MG CAPSULE Take 2 capsules by mouth thre* Patient not taking: Reported on 08/30/2018 FLUTICASONE 100 MCG-SALMETERO* Inhale 1 Puff as instructed t * ALBUTEROL SULFATE HFA 90 MCG/* Inhale 2 Puffs as instructed * EPINEPHRINE 0.3 MG/0.3 ML INJ* Inject 0.3 mL intramuscularly * COMPOUNDED PRESCRIPTION NEBULIZER FOR HOME USE. DX: * ALBUTEROL SULFATE 2.5 MG/3 ML* Use 3 mL via nebulizer every * GLUCOSAMINE 1500 COMPLEX ORAL Take 1 tablet by mouth once d* Problem List As Of Date 01/14/2019 Noted Resolved Sebaceous cyst [L72.3] 05/15/2007 04/16/2012 Environmental allergies [Z91.09] Asthma [J45.909] More... Arthropathy, unspecified, site unspecified [M12* Essential hypertension [I10] More... IBS (irritable bowel syndrome) [K58.9] GERD (gastroesophageal reflux disease) [K21.9] More... Migraine [G43.909] More... Diverticulitis [K57.92] Hyperlipidemia, mixed [E78.2] More... Fracture of finger, middle or proximal phalanx,*08/28/2012 History of colon polyps [Z86.010] Chronic pain of right knee [M25.561, G89.29] 12/13/2015 Primary osteoarthritis of right knee [M17.11] 12/13/2015 BPPV (benign paroxysmal positional vertigo) [H8*04/04/2016 Bee sting allergy [Z91.030] 12/11/2017 Bilateral low back pain with bilateral sciatica*12/27/2017 More... Calculus of kidney [N20.0] 05/09/2018 More... LLQ pain [R10.32] 05/27/2018 TIA (transient ischemic attack) [G45.9] 07/29/2018 Dry skin [L85.3] 09/03/2018 Atrial fibrillation with rapid ventricular resp*12/30/2018 Encounter Status:Closed by EPIC, PRODUSER on 01/29/19 cnpn on 2019-01-07 CNPN Telephone (FPWADS) Normal 01-07-2019 [place] [facility] ROMAIN BAILEY ([id number]) 1950 [facility] Date Time Provider Department ([id number]) 01/07/19 ALAINA ERICKSON FPTHAI During your visit today, we recorded the following informati on about you: Anat Swanson, RN, RN 01/07/2019 11:51 AM Signed Patient left a VM that she is having a reaction to the flu vaccine yesterday. Patient reports some swelling in arm anthony t she normally gets with vaccines, but is concerned because she dev eloped tightness in middle of chest last night that is not getting any better. Denied nausea, vomiting, sweating, sob, or pain radiating an ywhere. Asked patient if this was re spiratory related and patient reports only having a minor cough and is unsure the cause of sudden chest tightnes s. Advised patient go to the ED for this. Patient would go. Alaina Erickson MD 01/07/2019 2:05 PM Signed Adverse reaction noted/ added to allergy list. Alaina Erickson MD Allergies As of Date: 01/07/2019 Noted Allergy Reaction ADHESIVE TAPE (ROSINS) 12/05/2016 2 - Rash BACTRIM DS (SULFAMETHOXAZOLE-TRIM*12/29/2014 10 - Anaphylaxi s Comments: Difficulty breathing, fever, chills BEE STING 08/28/2012 10 - Anaphylaxis DARVON (PROPOXYPHENE HCL) 05/15/2007 INFLUENZA VIRUS VACCINES 01/07/2019 14 - Other: See Comments Comments: Chest tightness, arm swelling. PREDNISONE 03/07/2016 8 - GI Upset Date Reviewed: 12/30/2018 Reviewed by: Kristine Serra Ma - Fully Assessed Reason for Visit: Chest tightness/ swelling from flu vaccine [Other] Prescriptions as of 01/07/2019 Sig: AMIODARONE 200 MG TABLET Take 200 mg by mouth once pancho* ELIQUIS 5 MG TABLET Take 5 mg by mouth twice ellie* METOPROLOL TARTRATE 25 MG TAB* Take 12.5 mg by mouth twice d * BIFIDOBACTERIUM BIFIDUM AND L* Take 1 capsule by mouth once * VERAPAMIL ER (SR) 240 MG TABL* TAKE 1 TABLET BY MOUTH EVERYD * PANTOPRAZOLE 20 MG TABLET,DEL* TAKE 1 TABLET BY MOUTH DAILY * ATORVASTATIN 40 MG TABLET Take 1 tablet by mouth once d* AMMONIUM LACTATE 12 % LOTION Apply 1 application to affect* THIAMINE MONONITRATE (VITAMIN* Take 1 tablet by mouth once d * FLUTICASONE PROPIONATE 50 MCG* Use 2 Sprays in each nostril * CYCLOSPORINE 0.05 % EYE DROPS* Use 1 Drop in both eyes twice * LORATADINE 10 MG TABLET Take 1 tablet by mouth once d* BENZONATATE 100 MG CAPSULE Take 2 capsules by mouth thre* Patient not taking: Reported on 08/30/2018 FLUTICASONE 100 MCG-SALMETERO* Inhale 1 Puff as instructed t * ALBUTEROL SULFATE HFA 90 MCG/* Inhale 2 Puffs as instructed * EPINEPHRINE 0.3 MG/0.3 ML INJ* Inject 0.3 mL intramuscularly * COMPOUNDED PRESCRIPTION NEBULIZER FOR HOME USE. DX: * ALBUTEROL SULFATE 2.5 MG/3 ML* Use 3 mL via nebulizer every * GLUCOSAMINE 1500 COMPLEX ORAL Take 1 tablet by mouth once d* Problem List As Of Date 01/07/2019 Noted Resolved Sebaceous cyst [L72.3] 05/15/2007 04/16/2012 Environmental allergies [Z91.09] Asthma [J45.909] More... Arthropathy, unspecified, site unspecified [M12* Essential hypertension [I10] More... IBS (irritable bowel syndrome) [K58.9] GERD (gastroesophageal reflux disease) [K21.9] More... Migraine [G43.909] More... Diverticulitis [K57.92] Hyperlipidemia, mixed [E78.2] More... Fracture of finger, middle or proximal phalanx,*08/28/2012 History of colon polyps [Z86.010] Chronic pain of right knee [M25.561, G89.29] 12/13/2015 Primary osteoarthritis of right knee [M17.11] 12/13/2015 BPPV (benign paroxysmal positional vertigo) [H8*04/04/2016 Bee sting allergy [Z91.030] 12/11/2017 Bilateral low back pain with bilateral sciatica*12/27/2017 More... Calculus of kidney [N20.0] 05/09/2018 More... LLQ pain [R10.32] 05/27/2018 TIA (transient ischemic attack) [G45.9] 07/29/2018 Dry skin [L85.3] 09/03/2018 Atrial fibrillation with rapid ventricular resp*12/30/2018 Encounter Status:Closed by ANAT SWANSON on 01/07/19 CNPN Telephone (JAYESHWA) Normal 01-07-2019 [place] [facility] ROMAIN BAILEY ([id number]) 1950 [facility] Date Time Provider Department ([id number]) 01/07/19 ALAINA ERICKSON During your visit today, we recorded the following informati on about you: Naheed Bang Ma 01/07/2019 2:09 PM Signed Received chest Xray results from [facility] 01/07/19 Findings:EKG electrodes are seen. Scattered calc ified granulomas. Blunting to the left costo phrenic angle with minimal increa sed markings at the left lung base suggestive of a atelect asis. This has improved as compared to prior study. Normal size heart. Normal mediastinum and gagandeep. Normal vis ulaized pulmonary arteries. There is atheroscl erotic tortuosity of the aortic arch and descending thoracic aorta. There are degenerative changes of the visualized thoracic sp ine. Normal visualized ribs, clavicles, and shoulders. There is no demonstrated abnormality of the visu alized soft tissue structures of the upper abdomen. Alaina Erickson MD 01/07/2019 4:14 PM Signed Noted. Alaina Erickson MD Allergies As of Date: 01/07/2019 Noted Allergy Reaction ADHESIVE TAPE (ROSINS) 12/05/2016 2 - Rash BACTRIM DS (SULFAMETHOXAZOLE-TRIM*12/29/2014 10 - Anaphylaxi s Comments: Difficulty breathing, fever, chills BEE STING 08/28/2012 10 - Anaphylaxis DARVON (PROPOXYPHENE HCL) 05/15/2007 INFLUENZA VIRUS VACCINES 01/07/2019 14 - Other: See Comments Comments: Chest tightness, arm swelling. PREDNISONE 03/07/2016 8 - GI Upset Date Reviewed: 12/30/2018 Reviewed by: Kristine Serra Ma - Fully Assessed Reason for Visit: [facility] chest xray result 01/07/19 [Other] Prescriptions as of 01/07/2019 Sig: AMIODARONE 200 MG TABLET Take 200 mg by mouth once pancho* ELIQUIS 5 MG TABLET Take 5 mg by mouth twice ellie* METOPROLOL TARTRATE 25 MG TAB* Take 12.5 mg by mouth twice d * BIFIDOBACTERIUM BIFIDUM AND L* Take 1 capsule by mouth once * VERAPAMIL ER (SR) 240 MG TABL* TAKE 1 TABLET BY MOUTH EVERYD * PANTOPRAZOLE 20 MG TABLET,DEL* TAKE 1 TABLET BY MOUTH DAILY * ATORVASTATIN 40 MG TABLET Take 1 tablet by mouth once d* AMMONIUM LACTATE 12 % LOTION Apply 1 application to affect* THIAMINE MONONITRATE (VITAMIN* Take 1 tablet by mouth once d * FLUTICASONE PROPIONATE 50 MCG* Use 2 Sprays in each nostril * CYCLOSPORINE 0.05 % EYE DROPS* Use 1 Drop in both eyes twice * LORATADINE 10 MG TABLET Take 1 tablet by mouth once d* BENZONATATE 100 MG CAPSULE Take 2 capsules by mouth thre* Patient not taking: Reported on 08/30/2018 FLUTICASONE 100 MCG-SALMETERO* Inhale 1 Puff as instructed t * ALBUTEROL SULFATE HFA 90 MCG/* Inhale 2 Puffs as instructed * EPINEPHRINE 0.3 MG/0.3 ML INJ* Inject 0.3 mL intramuscularly * COMPOUNDED PRESCRIPTION NEBULIZER FOR HOME USE. DX: * ALBUTEROL SULFATE 2.5 MG/3 ML* Use 3 mL via nebulizer every * GLUCOSAMINE 1500 COMPLEX ORAL Take 1 tablet by mouth once d* Problem List As Of Date 01/07/2019 Noted Resolved Sebaceous cyst [L72.3] 05/15/2007 04/16/2012 Environmental allergies [Z91.09] Asthma [J45.909] More... Arthropathy, unspecified, site unspecified [M12* Essential hypertension [I10] More... IBS (irritable bowel syndrome) [K58.9] GERD (gastroesophageal reflux disease) [K21.9] More... Migraine [G43.909] More... Diverticulitis [K57.92] Hyperlipidemia, mixed [E78.2] More... Fracture of finger, middle or proximal phalanx,*08/28/2012 History of colon polyps [Z86.010] Chronic pain of right knee [M25.561, G89.29] 12/13/2015 Primary osteoarthritis of right knee [M17.11] 12/13/2015 BPPV (benign paroxysmal positional vertigo) [H8*04/04/2016 Bee sting allergy [Z91.030] 12/11/2017 Bilateral low back pain with bilateral sciatica*12/27/2017 More... Calculus of kidney [N20.0] 05/09/2018 More... LLQ pain [R10.32] 05/27/2018 TIA (transient ischemic attack) [G45.9] 07/29/2018 Dry skin [L85.3] 09/03/2018 Atrial fibrillation with rapid ventricular resp*12/30/2018 Encounter Status:Closed by NAHEED BANG MA on 01/07/19 progress on 2018-12 PROGRESS HNO ID: [id number] Normal 01-06-2019 [facility] Author: Alaina Erickson ([id number]) Service: ? Author Type: Physician Type: Progress Notes Filed: 01/06/2019 3:36 PM Note Text: Appointment on 01/06/19 - ADMIN OF INFLUENZA VACCINE - INFLUENZA SEASONAL HIGH DOSE AGE 65+ Alaina Erickson MD cnnurse on CNNURSE Nurse Visit (FPWADS) Normal [address] [place] [address] [facility] ROMAIN BAILEY ([id number]) 1950 [facility] Date Time Provider Department ([id number]) 01/06/19 2:30 PM NURSE POLLO RANKIN During your visit today, we recorded the following informati on about you: Alaina Erickson MD 01/06/2019 3:36 PM Signed Appointment on 01/06/19 - ADMIN OF INFLUENZA VACCINE - INFLUENZA SEASONAL HIGH DOSE AGE 65+ MD Kristine Ruff Ma 01/06/2019 3:36 PM Signed Patient received flu vaccine Kristine Serra Ma Referring Provider: ALAINA ERICKSON [[id number]] Allergies As of Date: 01/06/2019 Noted Allergy Reaction ADHESIVE TAPE (ROSINS) 12/05/2016 2 - Rash BACTRIM DS (SULFAMETHOXAZOLE-TRIM*12/29/2014 10 - Anaphylaxi s Comments: Difficulty breathing, fever, chills BEE STING 08/28/2012 10 - Anaphylaxis DARVON (PROPOXYPHENE HCL) 05/15/2007 PREDNISONE 03/07/2016 8 - GI Upset Date Reviewed: 12/30/2018 Reviewed by: Kristine Serra Ma - Fully Assessed Reason for Visit: flu vaccine [Other] Primary Visit Diagnosis:Need for vaccination [Z23] Order(s):ADMIN OF INFLUENZA VACCINE [[id number]] Order #: [id number]: 1 INFLUENZA SEASONAL HIGH DOSE AGE 65+ [[id number]] Order #: [id number] Prescriptions as of 01/06/2019 Sig: AMIODARONE 200 MG TABLET Take 200 mg by mouth once pancho* ELIQUIS 5 MG TABLET Take 5 mg by mouth twice ellie* METOPROLOL TARTRATE 25 MG TAB* Take 12.5 mg by mouth twice d * BIFIDOBACTERIUM BIFIDUM AND L* Take 1 capsule by mouth once * VERAPAMIL ER (SR) 240 MG TABL* TAKE 1 TABLET BY MOUTH EVERYD * PANTOPRAZOLE 20 MG TABLET,DEL* TAKE 1 TABLET BY MOUTH DAILY * ATORVASTATIN 40 MG TABLET Take 1 tablet by mouth once d* AMMONIUM LACTATE 12 % LOTION Apply 1 application to affect* THIAMINE MONONITRATE (VITAMIN* Take 1 tablet by mouth once d * FLUTICASONE PROPIONATE 50 MCG* Use 2 Sprays in each nostril * CYCLOSPORINE 0.05 % EYE DROPS* Use 1 Drop in both eyes twice * LORATADINE 10 MG TABLET Take 1 tablet by mouth once d* BENZONATATE 100 MG CAPSULE Take 2 capsules by mouth thre* Patient not taking: Reported on 08/30/2018 FLUTICASONE 100 MCG-SALMETERO* Inhale 1 Puff as instructed t * ALBUTEROL SULFATE HFA 90 MCG/* Inhale 2 Puffs as instructed * EPINEPHRINE 0.3 MG/0.3 ML INJ* Inject 0.3 mL intramuscularly * COMPOUNDED PRESCRIPTION NEBULIZER FOR HOME USE. DX: * ALBUTEROL SULFATE 2.5 MG/3 ML* Use 3 mL via nebulizer every * GLUCOSAMINE 1500 COMPLEX ORAL Take 1 tablet by mouth once d* Problem List As Of Date 01/06/2019 Noted Resolved Sebaceous cyst [L72.3] 05/15/2007 04/16/2012 Environmental allergies [Z91.09] Asthma [J45.909] More... Arthropathy, unspecified, site unspecified [M12* Essential hypertension [I10] More... IBS (irritable bowel syndrome) [K58.9] GERD (gastroesophageal reflux disease) [K21.9] More... Migraine [G43.909] More... Diverticulitis [K57.92] Hyperlipidemia, mixed [E78.2] More... Fracture of finger, middle or proximal phalanx,*08/28/2012 History of colon polyps [Z86.010] Chronic pain of right knee [M25.561, G89.29] 12/13/2015 Primary osteoarthritis of right knee [M17.11] 12/13/2015 BPPV (benign paroxysmal positional vertigo) [H8*04/04/2016 Bee sting allergy [Z91.030] 12/11/2017 Bilateral low back pain with bilateral sciatica*12/27/2017 More... Calculus of kidney [N20.0] 05/09/2018 More... LLQ pain [R10.32] 05/27/2018 TIA (transient ischemic attack) [G45.9] 07/29/2018 Dry skin [L85.3] 09/03/2018 Atrial fibrillation with rapid ventricular resp*12/30/2018 Visit Notes: >> Kristine Serra Ma Mon Jan 06, 2019 3:35 PM Status: Kena d Patient received flu vaccine Kristine Serra Ma Encounter Status:Closed by KRISTINE SERRA MA on 01/06/19 progress on 2018-12 PROGRESS HNO ID: [id number] Normal 12-30-2018 [facility] Author: Alaina Erickson [place] ([id number]) Service: ? Author Type: Physician Type: Progress Notes Filed: 12/30/2018 11:55 AM Note Text: CHIEF COMPLAINT Patient presents with: Hospital Follow Up HISTORY OF PRESENT ILLNESS Romani Bailey is a 68 year old female who presents here to [facility] for post-hospitalization follow up. I last saw this patient on . Hospitalization for pneumonia Patient was hospitalized for pneumonia on December 12, 2018 No follow up instructions for x rays or other procedures She reports she hasn't had an appetite since getting sick This week she started to eat more regularly again Hospitalization for A-fib Patient was hospitalized separately December 06, 2018 for atr ial fibrillation She is currently on Eliquis To start Coumadin when current meds run out Hypertension BP mildly elevated in office today IBS No longer struggling with cramping Going regularly twice a day Patient is taking probiotics with significant relief of symp toms Safety/Daily living Patient reports she has trouble getting out of the bath She has fallen before due to her high bathtub She believes she might slip again and hurt herself Attributes difficulty with arthritis Health maintenance Due for flu shot Past medical history, appointments, medications, allergies r eviewed. REVIEW OF SYSTEMS Pertinent positives/ negatives: General: No weight changes, fever, chills. Cardiac: +Atrial fibrillation Resp: +Pneumonia GI: +IBS, +GERD MS: +Arthritis PAST MEDICAL HISTORY Hypertension, hyperlipidemia, TIA, IBS, GERD PHYSICAL EXAMINATION BP 143/68 (BP Site: Left Arm, BP Position: Sitting, BP Cuff Size: Regular Adult) Pulse (!) 58 Temp 37 ?C (98.6 ?F) Resp 17 Ht 167.6 cm (5' 6) Wt 82.8 kg (182 lb 9.6 oz) BMI 29.47 kg/m? General: Alert, well developed, well nourished, no distress, pleasant and cooperative. Heart: Regular rate and rhythm. Normal S1 and S2. Systolic m urmur on right sternal border Lungs: Clear to auscultation bilaterally. No respiratory dis tress. No wheezes, rales, or rhonchi. Data Reviewed 12/03/2018: Urine culture negative -UA Dip: moderate hemoglobin, trace protein, moderate leukoc ytes 07/30/2018: BMP within normal limits -CBC within normal limits -Glucose within normal limits -Lipid panel within normal limits -HGB A1C within normal limits Assessment/Plan (Z09) Hospital discharge follow-up (primary encounter diagno sis) Comment: Patient hospitalized twice since last office visit, 12/12/2018 and 12/06/2018 Plan: Return to office in 4 weeks for further follow up (J18.1) Pneumonia of left lower lobe due to infectious organ ism (HCC) Comment: Resolved through inpatient treatment at [facility] Plan: XR CHEST 2V FRONTAL/LAT -Reevaluate following XR results (I48.91) Atrial fibrillation with rapid ventricular response (HCC) (I48.20) Chronic atrial fibrillation Comment: Resulted in hospitalization 12/06/2018 Plan: Continue amiodarone (PACERONE) 200 mg tablet, ELIQUIS 5 mg tab(s) -Reevaluate at follow up in 4 weeks (I10) Essential hypertension Comment: BP mildly elevated in office today; patient recentl y hospitalized for atrial fibrillation with medication changes Plan: Continue metoprolol tartrate, short acting, (LOPRESSOR ) 25 mg tablet -Reevaluate at follow up in 4 weeks (W18.2XXA) Fall in bathtub, initial encounter (M17.11) Primary osteoarthritis of right knee (M54.42, M54.41, G89.29) Chronic bilateral low back pain wit h bilateral sciatica Comment: Patient reports slipping while getting out of bath tub, resulting in risk of injury Plan: BATH/SHOWER CHAIR -Wrote patient a letter advising medical necessity for a eduard wer chair -Instructed patient to pursue independent purchase of bath/s hower chair if landlord will not provide assistance No medications selected for refill. RTO: 4 weeks Scribe Attestation: By signing my name below, I, Toro Rawls, attest that this d ocumentation has been prepared under the direction and in the presence of Paul Erickson M.D.. Electronically Signed: Rachael Gordon. December 30, 2018 9:40 AM. Provider Attestation: I, Alaina Erickson MD, personally performed the services albin cribed in this documentation. All medical record entries made by the scribe were at my direction and in my presence. I have reviewed the chart and discharge instructions (if applicable) and agree that the record refle cts my personal performance and is accurate and complete. [facility] Signed: Alaina Erickson MD. December 30, 2018 11:54 AM cnov on 2018-12-30 CNOV Office Visit (FPWADS) Normal 12-31-[address] [place] [address] [facility] ROMAIN BAILEY ([id number]) 1950 [facility] Date Time Provider Department ([id number]) 12/30/18 9:40 AM ALAINA ERICKSON FPWADS During your visit today, we recorded the following informati on about you: Temperature Pulse Respiration Blood pressure 98.6 degrees 58/minute 17/minute 143/68 Weight Height 82.8 kg 1.676 m Alaina Erickson MD 12/30/2018 11:55 AM Signed CHIEF COMPLAINT Patient presents with: Hospital Follow Up HISTORY OF PRESENT ILLNESS Romain Bailey is a 68 year old female who presents here to day for post-hospitalization follow up. I last saw this patient on . Hospitalization for pneumonia Patient was hospitalized for pneumonia on December 12, 2018 No follow up instructions for x rays or other procedures She reports she hasn't had an appetite since getting sick This week she started to eat more regularly again Hospitalization for A-fib Patient was hospitalized separately December 06, 2018 f or atrial fibrillation She is currently on Eliquis To start Coumadin when current meds run out Hypertension BP mildly elevated in office today IBS No longer struggling with cramping Going regularly twice a day Patient is taking probiotics with significant relief of symp toms Safety/Daily living Patient reports she has trouble getting out of the bath She has fallen before due to her high bathtub She believes she might slip again and hurt herself Attributes difficulty with arthritis Health maintenance Due for flu shot Past medical history, appointments, medications, allergies brenardino chacon. REVIEW OF SYSTEMS Pertinent positives/ negatives: General: No weight changes, fever, chills. Cardiac: +Atrial fibrillation Resp: +Pneumonia GI: +IBS, +GERD MS: +Arthritis PAST MEDICAL HISTORY Hypertension, hyperlipidemia, TIA, IBS, GERD PHYSICAL EXAMINATION BP 143/68 (BP Site: Left Arm, BP Position: Sitting, BP Cuff Size: Regular Adult) Pulse (!) 58 Temp 37 ?C (98.6 ?F) Resp 17 Ht 167.6 cm (5' 6) Wt 82.8 kg (182 lb 9.6 oz) BMI 29.47 kg/m? General: Alert, well developed, well nourished, no distress, pleasant and cooperative. Heart: Regular rate and rhythm. Normal S1 and S2. Systolic m urmur on right sternal border Lungs: Clear to auscultation bilaterally . No respiratory distress. No wheezes, rales, or rhonchi. Data Reviewed 12/03/2018: Urine culture negative -UA Dip: moderate hemoglobin, trace protein, moderate leukoc ytes 07/30/2018: BMP within normal limits -CBC within normal limits -Glucose within normal limits -Lipid panel within normal limits -HGB A1C within normal limits Assessment/Plan (Z09) Hospital discharge follow-up (primary encounter diagno sis) Comment: Patient hospitalized twice since last office visi t, 12/12/2018 and 12/06/2018 Plan: Return to office in 4 weeks for further follow up (J18.1) Pneumonia of left lower lobe due to infectious organ ism (HCC) Comment: Resolved through inpatient treatment at [facility] Plan: XR CHEST 2V FRONTAL/LAT -Reevaluate following XR results (I48.91) Atrial fibrillation with rapid ventricular response (HCC) (I48.20) Chronic atrial fibrillation Comment: Resulted in hospitalization 12/06/2018 Plan: Continue amiodarone (PACERONE) 200 mg tablet, ELIQUIS 5 mg tab(s) -Reevaluate at follow up in 4 weeks (I10) Essential hypertension Comment: BP mildly elevated in office to day; patient recently hospitalized for atrial fibrillation with medication changes Plan: Continue metoprolol tartrate, short acting, (LOPRESSOR ) 25 mg tablet -Reevaluate at follow up in 4 weeks (W18.2XXA) Fall in bathtub, initial encounter (M17.11) Primary osteoarthritis of right knee (M54.42, M54.41, G89.29) Chronic bilateral low back pain wit h bilateral sciatica Comment: Patient reports slipping while getting out of bath tub, resulting in risk of injury Plan: BATH/SHOWER CHAIR -Wrote patient a letter advising medical necessity for a eduard wer chair -Instructed patient to pursue independent purchase of bath/s hower chair if landlord will not provide assistance No medications selected for refill. RTO: 4 weeks Scribe Attestation: By signing my name below, IToro, attest that this documentation has been prepared under the direction and in the presence of Paul Erickson M.D.. Electronically Signed: Rachael Gordon. December 30, 2018 9:40 AM. Provider Attestation: Alaina Harper MD, personally performed the services albin cribed in this documentation. All medical record entries made by the scribe were at my direction and in my presence. I have reviewed the chart and discharge instructions (if applicable) and agree that the record ref lects my personal performance and is accurate and complete. Electronically Sig ailyn: Alaina Erickson MD. December 30, 2018 11:54 AM Referring Provider: SHANTELLE GUDINO [[id number]] Allergies As of Date: 12/30/2018 Noted Allergy Reaction ADHESIVE TAPE (ROSINS) 12/05/2016 2 - Rash BACTRIM DS (SULFAMETHOXAZOLE-TRIM*12/29/2014 10 - Anaphylaxi s Comments: Difficulty breathing, fever, chills BEE STING 08/28/2012 10 - Anaphylaxis DARVON (PROPOXYPHENE HCL) 05/15/2007 PREDNISONE 03/07/2016 8 - GI Upset Date Reviewed: 12/30/2018 Reviewed by: Kristine Serra Ma - Fully Assessed Reason for Visit: Hospital Follow Up [177] Primary Visit Diagnosis:Hospital discharge follow-up [Z09] Other Visit Diagnoses:Pneumonia of left lower lo be due to infectious organism (HCC) [J18.1] Atrial fibrillation with rapid ventricular response (HCC) [I48.91] Chronic atrial fibrillation [I48.20] Essential hypertension [I10] Fall in bathtub, initial encounter [W18.2XXA] Chronic bilateral low back pain with bilateral sciatica [M54.42, M54.41, G89.29] Primary osteoarthritis of right knee [M17.11] Order(s):BATH/SHOWER CHAIR [[id number]] Order #: [id number] XR CHEST 2V FRONTAL/LAT [[id number]] Order #: [id number] FUTURE Prescriptions as of 12/30/2018 Sig: AMIODARONE 200 MG TABLET Take 200 mg by mouth once pancho* METOPROLOL TARTRATE 25 MG TAB* Take 12.5 mg by mouth twice d * BIFIDOBACTERIUM BIFIDUM AND L* Take 1 capsule by mouth once * VERAPAMIL ER (SR) 240 MG TABL* TAKE 1 TABLET BY MOUTH EVERYD * PANTOPRAZOLE 20 MG TABLET,DEL* TAKE 1 TABLET BY MOUTH DAILY * ATORVASTATIN 40 MG TABLET Take 1 tablet by mouth once d* AMMONIUM LACTATE 12 % LOTION Apply 1 application to affect* THIAMINE MONONITRATE (VITAMIN* Take 1 tablet by mouth once d * FLUTICASONE PROPIONATE 50 MCG* Use 2 Sprays in each nostril * CYCLOSPORINE 0.05 % EYE DROPS* Use 1 Drop in both eyes twice * LORATADINE 10 MG TABLET Take 1 tablet by mouth once d* FLUTICASONE 100 MCG-SALMETERO* Inhale 1 Puff as instructed t * ALBUTEROL SULFATE HFA 90 MCG/* Inhale 2 Puffs as instructed * EPINEPHRINE 0.3 MG/0.3 ML INJ* Inject 0.3 mL intramuscularly * COMPOUNDED PRESCRIPTION NEBULIZER FOR HOME USE. DX: * ALBUTEROL SULFATE 2.5 MG/3 ML* Use 3 mL via nebulizer every * ELIQUIS 5 MG TABLET Take 5 mg by mouth twice ellie* BENZONATATE 100 MG CAPSULE Take 2 capsules by mouth thre* Patient not taking: Reported on 08/30/2018 GLUCOSAMINE 1500 COMPLEX ORAL Take 1 tablet by mouth once d* Problem List As Of Date 12/30/2018 Noted Resolved Sebaceous cyst [L72.3] INVALID FOR*04/16/2012 Environmental allergies [Z91.09] Asthma [J45.909] More... Arthropathy, unspecified, site unspecified [M12* Essential hypertension [I10] More... IBS (irritable bowel syndrome) [K58.9] GERD (gastroesophageal reflux disease) [K21.9] More... Migraine [G43.909] More... Diverticulitis [K57.92] Hyperlipidemia, mixed [E78.2] More... Fracture of finger, middle or proximal phalanx,*INVALID FOR* History of colon polyps [Z86.010] Chronic pain of right knee [M25.561, G89.29] INVALID FOR* Primary osteoarthritis of right knee [M17.11] INVALID FOR* BPPV (benign paroxysmal positional vertigo) [H8*INVALID FOR* Bee sting allergy [Z91.030] INVALID FOR* Bilateral low back pain with bilateral sciatica*INVALID FOR* More... Calculus of kidney [N20.0] INVALID FOR* More... LLQ pain [R10.32] INVALID FOR* TIA (transient ischemic attack) [G45.9] INVALID FOR* Dry skin [L85.3] INVALID FOR* Atrial fibrillation with rapid ventricular resp*INVALID FOR* Medications Discontinued During This Encounter Magnesium Oxide 250 mg magnesium tab 60 t* 1 07/30/2018 019 Class: Med Update Route: ORAL Sig: Take 2 tablets by mouth once daily. Disc: Reason for discontinue is not on file. Disposition: Return in about 4 weeks (around 01/27/2019). Follow-up and Disposition History Recorded Letter Text Encounter Status:Closed by PAUL ERICKSON MD on 12/30/18 [facility] Normal 12-05-2018 [place] [facility] ROMAIN BAILEY ([id number]) 1950 [facility] Date Time Provider Department ([id number]) 12/05/18 ALAINA ERICKSON During your visit today, we recorded the following informati on about you: Kristine Serra Ma 12/05/2018 3:45 PM Signed Received records from [facility] 12/04/18 for chest pain. Will scan in once reviewed Kristine Bang Ma 12/07/2018 10:52 AM Signed Received D/C summary from [facility] for chest pain. 12/06/18 Allergies As of Date: 12/05/2018 Noted Allergy Reaction ADHESIVE TAPE (ROSINS) 12/05/2016 2 - Rash BACTRIM DS (SULFAMETHOXAZOLE-TRIM*12/29/2014 10 - Anaphylaxi s Comments: Difficulty breathing, fever, chills BEE STING 08/28/2012 10 - Anaphylaxis DARVON (PROPOXYPHENE HCL) 05/15/2007 PREDNISONE 03/07/2016 8 - GI Upset Date Reviewed: 12/03/2018 Reviewed by: Bibiana Reyes LPN - Fully Assessed Reason for Visit: [facility] ER 12/04/18 [Other] Prescriptions as of 12/05/2018 Sig: NITROFURANTOIN MONOHYDRATE AND * Take 1 capsule by mouth twi ce* BIFIDOBACTERIUM BIFIDUM AND L* Take 1 capsule by mouth once * PHENAZOPYRIDINE 100 MG TABLET Take 1 tablet by mouth three * VERAPAMIL ER (SR) 240 MG TABL* TAKE 1 TABLET BY MOUTH EVERYD * PANTOPRAZOLE 20 MG TABLET,DEL* TAKE 1 TABLET BY MOUTH DAILY * ATORVASTATIN 40 MG TABLET Take 1 tablet by mouth once d* AMMONIUM LACTATE 12 % LOTION Apply 1 application to affect* THIAMINE MONONITRATE (VITAMIN* Take 1 tablet by mouth once d * MAGNESIUM 250 MG ( MAGNESIU* Take 2 tablets by mouth once * FLUTICASONE PROPIONATE 50 MCG* Use 2 Sprays in each nostril * CYCLOSPORINE 0.05 % EYE DROPS* Use 1 Drop in both eyes twice * LORATADINE 10 MG TABLET Take 1 tablet by mouth once d* BENZONATATE 100 MG CAPSULE Take 2 capsules by mouth thre* Patient not taking: Reported on 08/30/2018 FLUTICASONE 100 MCG-SALMETERO* Inhale 1 Puff as instructed t * ALBUTEROL SULFATE HFA 90 MCG/* Inhale 2 Puffs as instructed * EPINEPHRINE 0.3 MG/0.3 ML INJ* Inject 0.3 mL intramuscularly * COMPOUNDED PRESCRIPTION NEBULIZER FOR HOME USE. DX: * ALBUTEROL SULFATE 2.5 MG/3 ML* Use 3 mL via nebulizer every * GLUCOSAMINE 1500 COMPLEX ORAL Take 1 tablet by mouth once d* Problem List As Of Date 12/05/2018 Noted Resolved Sebaceous cyst [L72.3] INVALID FOR*04/16/2012 Environmental allergies [Z91.09] Asthma [J45.909] More... Arthropathy, unspecified, site unspecified [M12* Essential hypertension [I10] More... IBS (irritable bowel syndrome) [K58.9] GERD (gastroesophageal reflux disease) [K21.9] More... Migraine [G43.909] More... Diverticulitis [K57.92] Hyperlipidemia, mixed [E78.2] More... Fracture of finger, middle or proximal phalanx,*INVALID FOR* History of colon polyps [Z86.010] Chronic pain of right knee [M25.561, G89.29] INVALID FOR* Primary osteoarthritis of right knee [M17.11] INVALID FOR* BPPV (benign paroxysmal positional vertigo) [H8*INVALID FOR* Bee sting allergy [Z91.030] INVALID FOR* Bilateral low back pain with bilateral sciatica*INVALID FOR* More... Calculus of kidney [N20.0] INVALID FOR* More... LLQ pain [R10.32] INVALID FOR* TIA (transient ischemic attack) [G45.9] INVALID FOR* Dry skin [L85.3] INVALID FOR* Encounter Status:Closed by KRISTINE SERRA MA on 12/05/18 urine culture on 15-12-07 Bacteria identified Sp. Request/Comment: - Specimen received in pre servative Normal 12-03-2018 [facility] Cx Nom (U) [place] ([id number]) Culture Result - No growth (<1,000 CFU/ml) Comment: Performed By: #### URCUL ### #[id number] [place], [place] [phone] progress on 2018-11 PROGRESS HNO ID: [id number] Normal 12-03-2018 [place] Author: Cassi Farmer [facility] Service: ? [place] Author Type: Nurse Practitioner ([id number]) Type: Progress Notes Filed: 12/03/2018 8:56 AM Note Text: Subjective HPI Pt presents with c/o dysuria, urinary frequency and urgency x 2 days. Has been drinking a lot of pop lately. Denies fever, chills, myalgias, abd/flank/back pain, vaginal sx. Review of Systems Constitutional: Negative for chills and fever. Gastrointestinal: Negative for abdominal pain, constipation, diarrhea, nausea and vomiting. Genitourinary: Positive for dysuria, frequency and urgency. Negative for flank pain and hematuria. Musculoskeletal: Negative for back pain and myalgias. Objective Physical Exam Constitutional: She is oriented to person, place, and time a nd well-developed, well-nourished, and in no distress. No distr ess. Abdominal: There is no CVA tenderness. Neurological: She is alert and oriented to person, place, an d time. Skin: Skin is warm and dry. She is not diaphoretic. BP 140/76 Pulse 86 Temp 36.7 ?C (98 ?F) (Tympanic) Res p 18 Wt 82.3 kg (181 lb 6.4 oz) BMI 29.28 kg/m? .Patient presents with: Urinary Frequency: burning, urgency and frequency with urina tion x 1 day PAST MEDICAL HISTORY Diagnosis Date - Arthropathy, unspecified, site unspecified - Asthma - Back pain - Colon polyps 2013 - Diverticulitis 2000 - Environmental allergies - GERD (gastroesophageal reflux disease) - Hyperlipidemia lifestyle controlled - Hypertension - IBS (irritable bowel syndrome) - Migraine - Obesity PAST SURGICAL HISTORY Procedure Laterality Date - COLONOSCOP W/ OR W/O BRSH SPEC 05/29/2018 Colonoscopy - COLONOSCOPY AND POLYPECTOMY 12/03/2013 tubular adenoma, hyperplastic polyp; repeat due in 5y - DEBRIDE SKIN AND SUBQ TISSU 05/15/07 Debridement infected moira cyst upper mid back - PAST SURGICAL HISTORY OF 1984 metal removed from right tibial area - PAST SURGICAL HISTORY OF DANDC - REMOVAL GALLBLADDER ~2003 Cholecystectomy laparoscopic - TOTAL ABDOM HYSTERECTOMY 1999 MAURICE/BSO-pain, no abnormal paps ALLERGIES Adhesive Tape (Rosins); Bactrim Ds [Sulfamethoxazole-Trimethoprim]; Bee Sting; Darvon [Propoxyp hene Hcl]; Prednisone MEDICATIONS verapamil SR (CALAN SR, ISOPTIN SR) 240 mg CR tablet TAKE 1 TABLET BY MOUTH EVERYDAY AT BEDTIME pantoprazole DR (PROTONIX) 20 mg tablet TAKE 1 TABLET BY ROBERT TH DAILY BEFORE BREAKFAST. TAKE ON EMPTY STOMACH, 1/2 HR BEFORE MEAL. atorvastatin (LIPITOR) 40 mg tablet Take 1 tablet by mouth o nce daily. ammonium lactate (LAC-HYDRIN) 12 % lotion Apply 1 applicatio n to affected area as needed for Dry Skin (arms). fluticasone (FLONASE) 50 mcg/actuation nasal spray Use 2 Spr ays in each nostril once daily. cycloSPORINE (RESTASIS) 0.05 % ophthalmic emulsion Use 1 Joon p in both eyes twice daily. Both eyes. loratadine (CLARITIN) 10 mg tablet Take 1 tablet by mouth on ce daily. fluticasone-salmeterol (ADVAIR DISKUS) 100-50 mcg/dose dsdv Inhale 1 Puff as instructed twice daily. RINSE AND GARGLE MOUTH WITH WATER AFTER EACH USE. albuterol HFA (VENTOLIN HFA) 90 mcg/actuation inhaler Inhale 2 Puffs as instructed every 6 hours as needed. EPINEPHrine (AUVI-Q) 0.3 mg/0.3 mL auto-injector Inject 0.3 mL intramuscularly as needed. Nebulizer NEBULIZER FOR HOME USE. DX: J45.20 albuterol (PROVENTIL) 2.5 mg /3 mL (0.083 %) nebulizer solut ion Use 3 mL via nebulizer every 4 hours as needed for Wheezing/Shortness of Breath. Use over 5-15minutes. GLUC BARR/CHONDRO BARR A/VIT C/MN (GLUCOSAMINE 1500 COMPLEX ORAL ) Take 1 tablet by mouth once daily. nitrofurantoin monohydrate and macrocrystal (MACROBID) 100 m g capsule Take 1 capsule by mouth twice daily with meals for 7 days. bifidobacteri bifid.and longum (FLORAJEN BIFIDOBLEND) 460 mg (9-1 bill.cell) cap Take 1 capsule by mouth once daily. phenazopyridine (PYRIDIUM) 100 mg tablet Take 1 tablet by mo [facility] three times daily as needed for up to 2 days. thiamine mononitrate (VITAMIN B1) 100 mg tab Take 1 tablet b y mouth once daily. Magnesium Oxide 250 mg magnesium tab Take 2 tablets by mouth once daily. benzonatate (TESSALON PERLES) 100 mg capsule Take 2 capsules by mouth three times daily as needed. FAMILY HISTORY Problem Relation Age of Onset - None Mother from fall - Diabetes Father - Ischemic Heart Disease Father d. [place] - Ischemic Heart Disease Maternal Grandfather d. [place] while holding her at 4mo - Blindness Brother - Heart Attack Brother Social History Tobacco Use - Smoking status: Never Smoker - Smokeless tobacco: Never Used Substance Use Topics - Alcohol use: No - Drug use: No ASSESSMENT/PLAN: 1. Urinary frequency - ICD9: 788.41, ICD10: R35.0 acute - UA positive for radha esterase, hematuria and proteinuria - Send urine for culture - Patient education for prevention given - UA DIP, URINE (POC) - URINE CULTURE - NITROFURANTOIN MONOHYDRATE AND MACROCRYSTAL 100 MG ORAL CA P - BIFIDOBACTERIUM BIFIDUM AND LONGUM 460 MG (9-1 BILLION ATIF L) CAPSULE The patient is instructed to return or seek emergency treatm ent if symptoms become worse or with any acute change in condition. The patient verbalizes understanding and is in agreement wit h plan of care. GIOVANNA Hunter on 2018-12-03 CNOV Office Visit (UCWSTR) Normal 12-04-19 [place] [facility] ROMAIN BAILEY ([id number]) 1950 [address] [facility] Date Time Provider Department ([id number]) 12/03/18 8:30 AM CASSI FARMER [facility] During your visit today, we recorded the following informati on about you: Temperature Pulse Respiration Blood pressure 98 degrees 86/minute 18/minute 140/76 Weight 82.3 kg Cassi Farmer APRN.GIOVANNA 12/03/2018 8:39 AM Signed Patient Education for Adult Female Urinary Tract Infections Possible complications: Pyelonephritis Renal abscess Expected course/prognosis: * Symptoms resolve within 2-3 days after starting treatment in almost all patients * One-fourth of women with simple UTI ex perience a second UTI within 6 months, and half at some time during lifetime. * Women with frequent or intercourse-related UTI should empt y bladder immediately before and following intercourse. Instructions: * Maintain good hydration * Avoid sexual intercourse when symptoms present *Take antibiotic as directed * Return if symptoms not resolved or markedly improved withi n 48 hours * If taking prophylactic antibiotics, take at bedtime * Take showers instead of tub baths * Avoid feminine hygiene sprays and scented douches * Wipe urethra from front to back *Go to the Emergency room if fever, chills, or flank pain de velop Please call your PCP if you are not feeling better in 3-5 da ys. You can try taking OTC Uristat (pyridium) if needed for burn ing. *Beware that it will turn your urine orange/red. *Avoid wearing contacts if taking pyridium it could discolor the lenses. Cassi Farmer APRN.GIOVANNA 12/03/2018 8:56 AM Signed Subjective HPI Pt presents with c/o dysuria, urinary frequency and urgency x 2 days. Has been drinking a lot of pop lately. Denies fever, chills, myalgias, abd/flank/back pain, vaginal sx. Review of Systems Constitutional: Negative for chills and fever. Gastrointestinal: Negative for abdominal pain, c onstipation, diarrhea, nausea and vomiting. Genitourinary: Positive for dysuria, khadar quency and urgency. Negative for flank pain and hematuria. Musculoskeletal: Negative for back pain and myalgias. Objective Physical Exam Constitutional: She is oriented to perso n, place, and time and well-developed, well-nourished, and in no distress. No distress. Abdominal: There is no CVA tenderness. Neurological: She is alert and oriented to person, place, an d time. Skin: Skin is warm and dry. She is not diaphoretic. BP 140/76 Pulse 86 Temp 36.7 ?C (98 ?F) (Tympanic) Res p 18 Wt 82.3 kg (181 lb 6.4 oz) BMI 29.28 kg/m? .Patient presents with: Urinary Frequency: burning, urgency and frequency with urina tion x 1 day PAST MEDICAL HISTORY Diagnosis Date - Arthropathy, unspecified, site unspecified - Asthma - Back pain - Colon polyps 2013 - Diverticulitis 2000 - Environmental allergies - GERD (gastroesophageal reflux disease) - Hyperlipidemia lifestyle controlled - Hypertension - IBS (irritable bowel syndrome) - Migraine - Obesity PAST SURGICAL HISTORY Procedure Laterality Date - COLONOSCOP W/ OR W/O BRSH SPEC 05/29/2018 Colonoscopy - COLONOSCOPY AND POLYPECTOMY 12/03/2013 tubular adenoma, hyperplastic polyp; repeat due in 5y - DEBRIDE SKIN AND SUBQ TISSU 05/15/07 Debridement infected moira cyst upper mid back - PAST SURGICAL HISTORY OF 1984 metal removed from right tibial area - PAST SURGICAL HISTORY OF DANDC - REMOVAL GALLBLADDER ~2003 Cholecystectomy laparoscopic - TOTAL ABDOM HYSTERECTOMY 1999 MAURICE/BSO-pain, no abnormal paps ALLERGIES Adhesive Tape (Rosins); Bactrim Ds [Barr lfamethoxazole-Trimethoprim]; Bee Sting; Darvon [Propoxyphene Hcl]; Prednisone MEDICATIONS verapamil SR (CALAN SR, ISOPTIN SR) 240 mg CR tablet TAKE 1 TABLET BY MOUTH EVERYDAY AT BEDTIME pantoprazole DR (PROTONIX) 20 mg tablet TAKE 1 TABLET BY M OUTH DAILY BEFORE BREAKFAST. TAKE ON EMPTY STOMACH, 1/2 HR BEFORE MEAL. atorvastatin (LIPITOR) 40 mg tablet Take 1 tablet by mouth o nce daily. ammonium lactate (LAC-HYDRIN) 12 % lotio n Apply 1 application to affected area as needed for Dry Skin (arms). fluticasone (FLONASE) 50 mcg /actuation nasal spray Use 2 Sprays in each nostril once daily. cycloSPORINE (RESTASIS) 0.05 % ophthalmic emulsion Use 1 Joon p in both eyes twice daily. Both eyes. loratadine (CLARITIN) 10 mg tablet Take 1 tablet by mouth on ce daily. fluticasone-salmeterol (ADVAIR DISKUS) 100-50 mcg/dose dsdv Inhale 1 Puff as instructed twice daily. RINSE AND GARGLE MOUTH WITH WATER AF TER EACH USE. albuterol HFA (VENTOLIN HFA) 90 mcg/actuation inhaler Inhale 2 Puffs as instructed every 6 hours as needed. EPINEPHrine (AUVI-Q) 0.3 mg/0.3 mL auto- injector Inject 0.3 mL intramuscularly as needed. Nebulizer NEBULIZER FOR HOME USE. DX: J45.20 albuterol (PROVENTIL) 2.5 mg /3 mL (0.083 %) nebulizer solution Use 3 mL via nebulizer every 4 hours as needed for Wheezing/Shortne ss of Breath. Use over 5-15minutes. GLUC BARR/CHONDRO BARR A/VIT C/MN (GLUCOSAMI NE 1500 COMPLEX ORAL) Take 1 tablet by mouth once daily. nitrofurantoin monohydrate and macrocrystal (MACROBID) 100 mg capsule Take 1 capsule by mouth twice daily with meals for 7 days. bifidobacteri bifid.and longum (FLORAJEN BIFIDOBLEND) 460 mg (9-1 bill.cell) cap Take 1 capsule by mouth once daily. phenazopyridine (PYRIDIUM) 100 mg tablet Take 1 tablet by mouth three times daily as needed for up to 2 days. thiamine mononitrate (VITAMI N B1) 100 mg tab Take 1 tablet by mouth once daily. Magnesium Oxide 250 mg magnesium tab Take 2 tablets by mouth once daily. benzonatate (TESSALON PERLES) 100 mg capsule Take 2 capsul es by mouth three times daily as needed. FAMILY HISTORY Problem Relation Age of Onset - None Mother from fall - Diabetes Father - Ischemic Heart Disease Father d. [place] - Ischemic Heart Disease Maternal Grandfather d. [place] while holding her at 4mo - Blindness Brother - Heart Attack Brother Social History Tobacco Use - Smoking status: Never Smoker - Smokeless tobacco: Never Used Substance Use Topics - Alcohol use: No - Drug use: No ASSESSMENT/PLAN: 1. Urinary frequency - ICD9: 788.41, ICD10: R35.0 acute - UA positive for radha esterase, hematuria and proteinuria - Send urine for culture - Patient education for prevention given - UA DIP, URINE (POC) - URINE CULTURE - NITROFURANTOIN MONOHYDRATE AND MACROCRYSTAL 100 MG ORAL CA P - BIFIDOBACTERIUM BIFIDUM AND LONGUM 460 MG (9-1 BILLION ATIF L) CAPSULE The patient is instructed to return or seek emergency lauri tment if symptoms become worse or with any acute change in condition. The patient verbalizes understanding and is in agreement w ith plan of care. Cassi Farmer CNP Referring Provider: SELF [[id number]] Allergies As of Date: 12/03/2018 Noted Allergy Reaction ADHESIVE TAPE (ROSINS) 12/05/2016 2 - Rash BACTRIM DS (SULFAMETHOXAZOLE-TRIM*12/29/2014 10 - Anaphylaxi s Comments: Difficulty breathing, fever, chills BEE STING 08/28/2012 10 - Anaphylaxis DARVON (PROPOXYPHENE HCL) 05/15/2007 PREDNISONE 03/07/2016 8 - GI Upset Date Reviewed: 12/03/2018 Reviewed by: Bibiana Reyes LPN - Fully Assessed Reason for Visit: Urinary Frequency [1086] Cmt: burning, urgency and frequen cy with urination x 1 day Primary Visit Diagnosis:Urinary frequency [R35.0] Order(s):UA DIP, URINE (POC) [[id number]] Order #: [id number] ec. #:[id number] URINE CULTURE [SQURCUL] Order #: [id number] nitrofurantoin monohydrate and macrocrystal (MACROBID) 100 m g capsuleTake 1 capsule by mouth twice daily with meals for 7 days.Disp: 14 capsuleRfl: 0 bifidobacteri bifid.and longum (FLORAJEN BIFIDOBLEND) 460 mg (9-1 bill.cell) capTake 1 capsule by mouth once daily.Disp: 30 capsuleRfl: 1 phenazopyridine (PYRIDIUM) 100 mg tabletTake 1 tablet by robert th three times daily as needed for up to 2 days.Disp: 6 tabletRfl: 0 Prescriptions as of 12/03/2018 Sig: VERAPAMIL ER (SR) 240 MG TABL* TAKE 1 TABLET BY MOUTH EVERYD * PANTOPRAZOLE 20 MG TABLET,DEL* TAKE 1 TABLET BY MOUTH DAILY * ATORVASTATIN 40 MG TABLET Take 1 tablet by mouth once d* AMMONIUM LACTATE 12 % LOTION Apply 1 application to affect* FLUTICASONE PROPIONATE 50 MCG* Use 2 Sprays in each nostril * CYCLOSPORINE 0.05 % EYE DROPS* Use 1 Drop in both eyes twice * LORATADINE 10 MG TABLET Take 1 tablet by mouth once d* FLUTICASONE 100 MCG-SALMETERO* Inhale 1 Puff as instructed t * ALBUTEROL SULFATE HFA 90 MCG/* Inhale 2 Puffs as instructed * EPINEPHRINE 0.3 MG/0.3 ML INJ* Inject 0.3 mL intramuscularly * COMPOUNDED PRESCRIPTION NEBULIZER FOR HOME USE. DX: * ALBUTEROL SULFATE 2.5 MG/3 ML* Use 3 mL via nebulizer every * GLUCOSAMINE 1500 COMPLEX ORAL Take 1 tablet by mouth once d* NITROFURANTOIN MONOHYDRATE AND * Take 1 capsule by mouth twi ce* BIFIDOBACTERIUM BIFIDUM AND L* Take 1 capsule by mouth once * PHENAZOPYRIDINE 100 MG TABLET Take 1 tablet by mouth three * THIAMINE MONONITRATE (VITAMIN* Take 1 tablet by mouth once d * MAGNESIUM 250 MG ( MAGNESIU* Take 2 tablets by mouth once * BENZONATATE 100 MG CAPSULE Take 2 capsules by mouth thre* Patient not taking: Reported on 08/30/2018 Problem List As Of Date 12/03/2018 Noted Resolved Sebaceous cyst [L72.3] INVALID FOR*04/16/2012 Environmental allergies [Z91.09] Asthma [J45.909] More... Arthropathy, unspecified, site unspecified [M12* Essential hypertension [I10] More... IBS (irritable bowel syndrome) [K58.9] GERD (gastroesophageal reflux disease) [K21.9] More... Migraine [G43.909] More... Diverticulitis [K57.92] Hyperlipidemia, mixed [E78.2] More... Fracture of finger, middle or proximal phalanx,*INVALID FOR* History of colon polyps [Z86.010] Chronic pain of right knee [M25.561, G89.29] INVALID FOR* Primary osteoarthritis of right knee [M17.11] INVALID FOR* BPPV (benign paroxysmal positional vertigo) [H8*INVALID FOR* Bee sting allergy [Z91.030] INVALID FOR* Bilateral low back pain with bilateral sciatica*INVALID FOR* More... Calculus of kidney [N20.0] INVALID FOR* More... LLQ pain [R10.32] INVALID FOR* TIA (transient ischemic attack) [G45.9] INVALID FOR* Dry skin [L85.3] INVALID FOR* Other instructions from your clinician: Patient Education for Adult Female Urinary Tract Infections Possible complications: Pyelonephritis Renal abscess Expected course/prognosis: * Symptoms resolve within 2-3 days after starting treatment in almost all patients * One-fourth of women with simple UTI experience a second UT I within 6 months, and half at some time during lifetime. * Women with frequent or intercourse-related UTI should empt y bladder immediately before and following intercourse. Instructions: * Maintain good hydration * Avoid sexual intercourse when symptoms present *Take antibiotic as directed * Return if symptoms not resolved or markedly improved withi n 48 hours * If taking prophylactic antibiotics, take at bedtime * Take showers instead of tub baths * Avoid feminine hygiene sprays and scented douches * Wipe urethra from front to back *Go to the Emergency room if fever, chills, or flank pain de velop Please call your PCP if you are not feeling better in 3-5 da ys. You can try taking OTC Uristat (pyridium) if needed for burn ing. *Beware that it will turn your urine orange/red. *Avoid wearing contacts if taking pyridium it could discolor the lenses. Prescriptions ordered this encounter Disp Refills Start End NITROFURANTOIN MONOHYDRATE AND MACROCR* 14 c* 0 12/03/2018 1 Route: ORAL Sig: Take 1 capsule by mouth twice daily with meals for 7 da ys. BIFIDOBACTERIUM BIFIDUM AND LONGUM 4* 30 c* 1 12/03/2018 Route: ORAL Sig: Take 1 capsule by mouth once daily. PHENAZOPYRIDINE 100 MG TABLET 6 ta* 0 12/03/2018 12/05/2018 Route: ORAL Sig: Take 1 tablet by mouth three times daily as needed for up to 2 days. Encounter Status:Closed by CASSI FARMER CNP on obsolete on 2018-11 OBSOLETE Refill (FPWADS) Normal 11-30-2018 [facility] ROMAIN BAILEY ([id number]) 1950 [facility] Date Time Provider Department ([id number]) 11/30/18 ALAINA ERICKSON During your visit today, we recorded the following informati on about you: Kristine Serra Ma 12/02/2018 8:06 AM Signed Pharmacy verified in [facility] Patient has been identified by name and date of : Yes Patient aware RX will be sent to pharmacy. No need to notify patient. Pharmacy phones for refill(s): Pending Prescriptions Disp Refills VERAPAMIL ER (SR) 240 MG TABLET,EXTENDED RELEASE 90 tablet 1 Sig: TAKE 1 TABLET BY MOUTH EVERYDAY AT BEDTIME KIKO: Yes PANTOPRAZOLE 20 MG TABLET,DELAYED RELEASE 90 tablet 3 Sig: TAKE 1 TABLET BY MOUTH DAILY BEFORE BREAKFAST. TAKE ON EMPTY STOMACH, 1/2 HR BEFORE MEAL. KIKO: Yes Date of last office visit : 08/30/2018 Date of next office visit : Visit date not found Last 2 Encounter Wt Readings: Date: Wt: 11/04/2018 81.2 kg (179 lb) 08/30/2018 80.6 kg (177 lb 9.6 oz) Not applicable Please advise. Kristine Erickson MD 12/02/2018 8:16 AM Signed The following approved medic ation requests have been transmitted electronically. Signed Prescriptions Disp Refills verapamil SR (CALAN SR, ISOPTIN SR) 240 mg CR tablet 90 tabl et 1 Sig: TAKE 1 TABLET BY MOUTH EVERYDAY AT BEDTIME KIKO: No Authorizing Provider: ALAINA ERICKSON pantoprazole DR (PROTONIX) 20 mg tablet 90 tablet 3 Sig: TAKE 1 TABLET BY MOUTH DAILY BEFORE BREAKFAST. TAKE ON EMPTY STOMACH, 1/2 HR BEFORE MEAL. KIKO: No Authorizing Provider: ALAINA ERICKSON MD Allergies As of Date: 11/30/2018 Noted Allergy Reaction ADHESIVE TAPE (ROSINS) 12/05/2016 2 - Rash BACTRIM DS (SULFAMETHOXAZOLE-TRIM*12/29/2014 10 - Anaphylaxi s Comments: Difficulty breathing, fever, chills BEE STING 08/28/2012 10 - Anaphylaxis DARVON (PROPOXYPHENE HCL) 05/15/2007 PREDNISONE 03/07/2016 8 - GI Upset Date Reviewed: 11/04/2018 Reviewed by: Socorro Arceo - Fully Assessed Reason for Visit: Refill Request [94] Visit Diagnosis:Gastroesophageal reflux disease, esophagitis presence not specified [K21.9] Order(s):verapamil SR (CALAN SR, ISOPTIN SR) 240 mg CR tabletTAKE 1 TABLET BY MOUTH EVERYDAY AT BEDTIMEDisp: 90 tabletRfl: [address] (PROTONIX) 20 mg tabletTAKE 1 TABLET BY MOUT H DAILY BEFORE BREAKFAST. TAKE ON EMPTY STOMACH, 1/2 HR BEFORE MEAL. Disp: 90 tabletRfl: 3 Prescriptions as of 11/30/2018 Sig: VERAPAMIL ER (SR) 240 MG TABL* TAKE 1 TABLET BY MOUTH EVERYD * PANTOPRAZOLE 20 MG TABLET,DEL* TAKE 1 TABLET BY MOUTH DAILY * ATORVASTATIN 40 MG TABLET Take 1 tablet by mouth once d* AMMONIUM LACTATE 12 % LOTION Apply 1 application to affect* FLUTICASONE PROPIONATE 50 MCG* Use 2 Sprays in each nostril * CYCLOSPORINE 0.05 % EYE DROPS* Use 1 Drop in both eyes twice * LORATADINE 10 MG TABLET Take 1 tablet by mouth once d* BENZONATATE 100 MG CAPSULE Take 2 capsules by mouth thre* Patient not taking: Reported on 08/30/2018 FLUTICASONE 100 MCG-SALMETERO* Inhale 1 Puff as instructed t * ALBUTEROL SULFATE HFA 90 MCG/* Inhale 2 Puffs as instructed * EPINEPHRINE 0.3 MG/0.3 ML INJ* Inject 0.3 mL intramuscularly * COMPOUNDED PRESCRIPTION NEBULIZER FOR HOME USE. DX: * ALBUTEROL SULFATE 2.5 MG/3 ML* Use 3 mL via nebulizer every * GLUCOSAMINE 1500 COMPLEX ORAL Take 1 tablet by mouth once d* Problem List As Of Date 11/30/2018 Noted Resolved Sebaceous cyst [L72.3] INVALID FOR*04/16/2012 Environmental allergies [Z91.09] Asthma [J45.909] More... Arthropathy, unspecified, site unspecified [M12* Essential hypertension [I10] More... IBS (irritable bowel syndrome) [K58.9] GERD (gastroesophageal reflux disease) [K21.9] More... Migraine [G43.909] More... Diverticulitis [K57.92] Hyperlipidemia, mixed [E78.2] More... Fracture of finger, middle or proximal phalanx,*INVALID FOR* History of colon polyps [Z86.010] Chronic pain of right knee [M25.561, G89.29] INVALID FOR* Primary osteoarthritis of right knee [M17.11] INVALID FOR* BPPV (benign paroxysmal positional vertigo) [H8*INVALID FOR* Bee sting allergy [Z91.030] INVALID FOR* Bilateral low back pain with bilateral sciatica*INVALID FOR* More... Calculus of kidney [N20.0] INVALID FOR* More... LLQ pain [R10.32] INVALID FOR* TIA (transient ischemic attack) [G45.9] INVALID FOR* Dry skin [L85.3] INVALID FOR* Prescriptions ordered this encounter Disp Refills Start End VERAPAMIL ER (SR) 240 MG TABLET,EXTE* 90 t* 1 12/02/2018 Sig: TAKE 1 TABLET BY MOUTH EVERYDAY AT BEDTIME PANTOPRAZOLE 20 MG TABLET,DELAYED RE* 90 t* 3 12/02/2018 Route: ORAL Sig: TAKE 1 TABLET BY MOUTH DAILY BEFORE BREAKFAST. TAKE ON EMPTY STOMACH, 1/2 HR BEFORE MEAL. Medications Discontinued During This Encounter verapamil SR (CALAN SR, ISOPTIN SR) * 30 t* 5 06/03/20182018 Sig: TAKE 1 TABLET BY MOUTH EVERYDAY AT BEDTIME Disc: Reason for discontinue is not on file. pantoprazole DR (PROTONIX) 20 mg tab* 90 t* 3 12/11/201712/02/2018 Route: ORAL Sig: Take 1 tablet by mouth daily before breakfast. Take on empty stomach, 1/2 hr before meal. Disc: Reason for discontinue is not on file. Encounter Status:Closed by KRISTINE SERRA MA on 12/02/18 progress on 2018-10 PROGRESS HNO ID: [id number] Normal 11-04-2018 [facility] Author: Socorro Arceo [place] ([id number]) Service: ? Author Type: Nurse Practitioner Type: Progress Notes Filed: 11/04/2018 4:53 PM Note Text: Subjective Cough Episode onset: Patient complaining of nasal congestion, sinu s pressure, cough, and itchy throat started during the night last night. The problem has been gradually worsening. The cough is non-productive. T here has been no fever. Associated symptoms include rhinorrhea. Pertinent negatives include no ear congestion, no ear pain, no shortness of andrés th and no wheezing. She has tried decongestants for the symptoms. She is not a smoker. Her past medical history is significant for pneumoni a and asthma. Review of Systems Constitutional: Negative for fever. HENT: Positive for congestion (nasal), rhinorrhea and sinus pain. Negative for ear pain. Itchy throat, but not sore, per patient Respiratory: Positive for cough. Negative for sputum product ion, shortness of breath and wheezing. Cardiovascular: Negative. Gastrointestinal: Negative for abdominal pain, nausea and vo miting. Endo/Heme/Allergies: Positive for environmental allergies. Objective Physical Exam Constitutional: She is oriented to person, place, and time. Vital signs are normal. She has a sickly appearance. HENT: Right Ear: Hearing, external ear and ear canal normal. No dr ainage, swelling or tenderness. Tympanic membrane is bulging (scant amount clear). Tympanic membrane is not injected and not erythematous. No d ecreased hearing is noted. Left Ear: Hearing, external ear and ear canal normal. No riri inage, swelling or tenderness. Tympanic membrane is bulging (scant amount clear). Tympanic membrane is not injected and not erythematous. No d ecreased hearing is noted. Nose: Mucosal edema, rhinorrhea and sinus tenderness present . Right sinus exhibits maxillary sinus tenderness and frontal sinus tender ness. Left sinus exhibits maxillary sinus tenderness and frontal sinus tenderness. Mouth/Throat: Uvula is midline, oropharynx is clear and mois t and mucous membranes are normal. Post nasal drainage, hoarse voice, nasal congestion Cardiovascular: Normal rate, regular rhythm, S1 normal, S2 n ormal and normal heart sounds. Pulmonary/Chest: Effort normal and breath sounds normal. She has no decreased breath sounds. She has no wheezes. She has no rhon chi. She has no rales. cough Lymphadenopathy: She has no cervical adenopathy. Neurological: She is alert and oriented to person, place, an d time. Gait normal. Nursing note and vitals reviewed. ASSESSMENT/PLAN: 1. Sinusitis, unspecified chronicity, unspecified location - ICD9: 473.9, ICD10: J32.9 - Will begin treatment with Augmentin 875 mg PO BID for 10 d ays - Supportive care with plenty of fluids, rest, and analgesia prn. - Follow up in 3-5 days if symptoms persist or worsen. - AMOXICILLIN 875 MG-POTASSIUM CLAVULANATE 125 MG TABLET - Take antibiotic with food 2. Post-nasal drip - ICD9: 784.91, ICD10: R09.82 - Restart Flonase 3. Cough - ICD9: 786.2, ICD10: R05 - Continue Tessalon perles 4. Fluid collection of middle ear - ICD9: 381.4, ICD10: H65. 90 - Supportive care with plenty of fluids, rest, and analgesia prn. - Follow up in 3-5 days if symptoms persist or worsen. - Restart Flonase Socorro Arceo APRN.CNP cnov on 2018-11-04 CNOV Office Visit (UCWSTR) Normal 11-05-19 19 [place] [facility] ROMAIN BAILEY ([id number]) 1950 [facility] Date Time Provider Department ([id number]) 11/04/18 4:00 PM SOCORRO ARCEO [facility] During your visit today, we recorded the following informati on about you: Temperature Pulse Respiration Blood pressure 98.9 degrees 76/minute 18/minute 134/82 Weight 81.2 kg Socorro Arceo APRN.CNP 11/04/2018 4:53 PM Signed Subjective Cough Episode onset: Patient complaining of na cami congestion, sinus pressure, cough, and itchy throat started during the night last night. The pr oblem has been gradually worsening. The cough is non-productive. There has been no fever. Associated symptoms include rhinorrhea. Pertinent negatives include no ear congestion, no ear pain, no shortness of breath and no wheezing. She has tried decongestants for the symptoms. She is not a smo ker. Her past medical history is significant for pneumonia and asthma. Review of Systems Constitutional: Negative for fever. HENT: Positive for congestion (nasal), r hinorrhea and sinus pain. Negative for ear pain. Itchy throat, but not sore, per patient Respiratory: Positive for cough. Negative for sp utum production, shortness of breath and wheezing. Cardiovascular: Negative. Gastrointestinal: Negative for abdominal pain, nausea and vo miting. Endo/Heme/Allergies: Positive for environmental allergies. Objective Physical Exam Constitutional: She is oriented to person, place, and time . Vital signs are normal. She has a sickly appearance. HENT: Right Ear: Hearing, external ear and ear canal normal. No drainage, swelling or tenderness. Tympanic membrane is bulging (scant amount clear ). Tympanic membrane is not injected and not erythematous. N o decreased hearing is noted. Left Ear: Hearing, external ear and ear canal normal. No drainage, swelling or tenderness. Tympanic membrane is bulging (scant amount clear ). Tympanic membrane is not injected and not erythematous. N o decreased hearing is noted. Nose: Mucosal edema, rhinorrhea and sinus tenderness present . Right sinus exhibits maxillary sinus tenderness and frontal sinus tenderness. Left sinus exhibits maxillary sinus tenderness and frontal sinus tender ness. Mouth/Throat: Uvula is midline, oropharynx is clear and mois t and mucous membranes are normal. Post nasal drainage, hoarse voice, nasal congestion Cardiovascular: Normal rate, regular rhythm, S1 normal , S2 normal and normal heart sounds. Pulmonary/Chest: Effort normal and breath sounds normal. She has no decreased breath sounds. She has no wheezes. She has no rhonchi. She h as no rales. cough Lymphadenopathy: She has no cervical adenopathy. Neurological: She is alert and oriented to person, place, an d time. Gait normal. Nursing note and vitals reviewed. ASSESSMENT/PLAN: 1. Sinusitis, unspecified chronicity, unspecified location - ICD9: 473.9, ICD10: J32.9 - Will begin treatment with Augmentin 875 mg PO BID for 10 d ays - Supportive care with plenty of fluids, rest, and analgesia prn. - Follow up in 3-5 days if symptoms persist or worsen. - AMOXICILLIN 875 MG-POTASSIUM CLAVULANATE 125 MG TABLET - Take antibiotic with food 2. Post-nasal drip - ICD9: 784.91, ICD10: R09.82 - Restart Flonase 3. Cough - ICD9: 786.2, ICD10: R05 - Continue Tessalon perles 4. Fluid collection of middle ear - ICD9: 381.4, ICD10: H65. 90 - Supportive care with plenty of fluids, rest, and analgesia prn. - Follow up in 3-5 days if symptoms persist or worsen. - Restart Flonase ALVARO Palacios APRN.CNP 11/04/2018 4:31 PM Signed [facility] [address] [place] [address] Emergency Department Diagnosis: Assessment SINUSITIS: You have sinusitis, an infection of the sinus cavities around the nose. This infection usually follows a respiratory illness; it can also be related to allergies, changes in atmospheric pressure (flyi ng, diving), or anything that blocks nasal drainage. Symptoms include: headach e, facial pain, a thick nasal discharge, congestion, and cough. The treatment includes antibiotic therapy, increasing oral fluids, and pain medication if needed. Nose s pray decongestants (Afrin, Jouse-Synephrine) and oral decongestants may be needed to reduce congestion and drainage. Rarely the sinus must be irrigated to remove the infected material. Sinusitis can lead to seriou s complications by spreading to other areas such as the eye or brain. Please sumaya l your doctor or return here right away if you have any of the following more serious symptoms: - Unusual swelling around the eye or trouble seeing. - Increasing pain, severe headache, or toothache. - Nausea, vomiting, or unusual drowsiness. [facility] [address] [place], [place] [address] Emergency Department Diagnosis: Assessment COUGH: Your doctor wants you to have this information a bout coughing. The body has a cough reflex which helps expel mucous secretions and i rritants from the lung and airway passages. Cough spasms are periods of naveen nuous coughing lasting several minutes. Most coughs is caused by virus infections which may last for up to 2-3 weeks. Coughing helps to protect the lung from pne umonia. A persistent cough lasting longer than 4-6 weeks r equires medical evaluation by your primary care doctor. Treatment of cough includes measures to loosen t he cough and thin the mucous. Warm liquids, cough drops, and nonprescription c ough medicine may help reduce dry hacking cough. Use a humidifier if necessary as dry ai r can make coughs worse. Ultrasonic humidifiers are especially useful as they kill molds and many bacteria. Some cough medicines have antihistamines, dec ongestants, or alcohol in them; there is no proof that any of these help co ntrol cough. Prescription cough medicine or those with dextromethorphan ( DM) should be reserved for dry coughs that prevent sleep or cause spasms or chest pain. Avoid any exposure to cigarette smoke as this will wor sen the cough or make it last much longer. Call your doctor right away if you or you r child have increased breathing difficulty, a high fever, a co ugh that lasts longer than 3 weeks, or other serious complaints. Referring Provider: SELF [[id number]] Allergies As of Date: 11/04/2018 Noted Allergy Reaction ADHESIVE TAPE (ROSINS) 12/05/2016 2 - Rash BACTRIM DS (SULFAMETHOXAZOLE-TRIM*12/29/2014 10 - Anaphylaxi s Comments: Difficulty breathing, fever, chills BEE STING 08/28/2012 10 - Anaphylaxis DARVON (PROPOXYPHENE HCL) 05/15/2007 PREDNISONE 03/07/2016 8 - GI Upset Date Reviewed: 11/04/2018 Reviewed by: Socorro Arceo - Fully Assessed Reason for Visit: Cough [28] Cmt: nasal congestion, itchy throat started during the night last night Allergies [4] Cmt: X 2 days Primary Visit Diagnosis:Sinu sitis, unspecified chronicity, unspecified location [J32.9] Other Visit Diagnoses:Post-nasal drip [R09.82] Cough [R05] Fluid collection of middle ear [H65.90] Order(s):amoxicillin-clavulanic acid (AUGMENTIN) 875-1 25 mg per tabletTake 1 tablet by mouth twice daily for 10 days.Disp: 20 tabletRfl: 0 Prescriptions as of 11/04/2018 Sig: ATORVASTATIN 40 MG TABLET Take 1 tablet by mouth once d* AMMONIUM LACTATE 12 % LOTION Apply 1 application to affect* FLUTICASONE PROPIONATE 50 MCG* Use 2 Sprays in each nostril * CYCLOSPORINE 0.05 % EYE DROPS* Use 1 Drop in both eyes twice * LORATADINE 10 MG TABLET Take 1 tablet by mouth once d* VERAPAMIL ER (SR) 240 MG TABL* TAKE 1 TABLET BY MOUTH EVERYD * FLUTICASONE 100 MCG-SALMETERO* Inhale 1 Puff as instructed t * PANTOPRAZOLE 20 MG TABLET,DEL* Take 1 tablet by mouth daily * ALBUTEROL SULFATE HFA 90 MCG/* Inhale 2 Puffs as instructed * EPINEPHRINE 0.3 MG/0.3 ML INJ* Inject 0.3 mL intramuscularly * COMPOUNDED PRESCRIPTION NEBULIZER FOR HOME USE. DX: * ALBUTEROL SULFATE 2.5 MG/3 ML* Use 3 mL via nebulizer every * AMOXICILLIN 875 MG-POTASSIUM * Take 1 tablet by mouth twice * THIAMINE MONONITRATE (VITAMIN* Take 1 tablet by mouth once d * MAGNESIUM 250 MG ( MAGNESIU* Take 2 tablets by mouth once * BENZONATATE 100 MG CAPSULE Take 2 capsules by mouth thre* Patient not taking: Reported on 08/30/2018 GLUCOSAMINE 1500 COMPLEX ORAL Take 1 tablet by mouth once d* Problem List As Of Date 11/04/2018 Noted Resolved Sebaceous cyst [L72.3] INVALID FOR*04/16/2012 Environmental allergies [Z91.09] Asthma [J45.909] More... Arthropathy, unspecified, site unspecified [M12* Essential hypertension [I10] More... IBS (irritable bowel syndrome) [K58.9] GERD (gastroesophageal reflux disease) [K21.9] More... Migraine [G43.909] More... Diverticulitis [K57.92] Hyperlipidemia, mixed [E78.2] More... Fracture of finger, middle or proximal phalanx,*INVALID FOR* History of colon polyps [Z86.010] Chronic pain of right knee [M25.561, G89.29] INVALID FOR* Primary osteoarthritis of right knee [M17.11] INVALID FOR* BPPV (benign paroxysmal positional vertigo) [H8*INVALID FOR* Bee sting allergy [Z91.030] INVALID FOR* Bilateral low back pain with bilateral sciatica*INVALID FOR* More... Calculus of kidney [N20.0] INVALID FOR* More... LLQ pain [R10.32] INVALID FOR* TIA (transient ischemic attack) [G45.9] INVALID FOR* Dry skin [L85.3] INVALID FOR* Other instructions from your clinician: [facility] [address] [place], [place] [address] Emergency Department Diagnosis: Assessment SINUSITIS: You have sinusitis, an infection of the sinus cavities aroun d the nose. This infection usually follows a respiratory illness; it can also be related to allergies, changes in atmospheric pressure (flyin g, diving), or anything that blocks nasal drainage. Symptoms include: heada jessica, facial pain, a thick nasal discharge, congestion, and cough. The treatment includes antibiotic therapy, increasing oral f luids, and pain medication if needed. Nose spray decongestants (Afrin, Josue-Synephrine) and oral decongestants may be needed to redu ce congestion and drainage. Rarely the sinus must be irrigated to remove t he infected material. Sinusitis can lead to serious complications by spreading to other areas such as the eye or brain. Please call your doctor or return here right away if you have any of the following more serious symptoms: - Unusual swelling around the eye or trouble seeing. - Increasing pain, severe headache, or toothache. - Nausea, vomiting, or unusual drowsiness. [facility] [address] [place] [address] Emergency Department Diagnosis: Assessment COUGH: Your doctor wants you to have this information about coughin g. The body has a cough reflex which helps expel mucous secretions and i rritants from the lung and airway passages. Cough spasms are periods of co ntinuous coughing lasting several minutes. Most coughs is caused by v irus infections which may last for up to 2-3 weeks. Coughing help s to protect the lung from pneumonia. A persistent cough lasting longer t corcoran 4-6 weeks requires medical evaluation by your primary care doctor. Treatment of cough includes measures to loosen the cough and thin the mucous. Warm liquids, cough drops, and nonprescription cough medicine may help reduce dry hacking cough. Use a humidifier if necessary as dry air can make coughs worse. Ultrasonic humidifiers are especially useful as they kill molds and many bacteria. Some cough medicines have antihistamines, decongestants, or alcohol in them; there is no proof that any of these help control cough. Prescription cough medicine or those with dextromethorphan ( DM) should be reserved for dry coughs that prevent sleep or cause spasms o r chest pain. Avoid any exposure to cigarette smoke as this will worsen th e cough or make it last much longer. Call your doctor right away if you or your child have increased breathing difficulty, a high fever, a c ough that lasts longer than 3 weeks, or other serious complaints. Prescriptions ordered this encounter Disp Refills Start End AMOXICILLIN 875 MG-POTASSIUM CLAVULA* 20 t* 0 11/04/2018 Route: ORAL Sig: Take 1 tablet by mouth twice daily for 10 days. Letter Text Letter Text Encounter Status:Closed by SOCORRO ESCOBAR on 11/04/18 cnpn on 2018[facility]10[facility] Normal 10-23-2018 [place] [facility] ROMAIN BAILEY ([id number]) 1950 [facility] Date Time Provider Department ([id number]) 10/23/18 ALAINA ERICKSON During your visit today, we recorded the following informati on about you: Nighat Torres, RN, RN 10/23/2018 9:27 AM Signed Patient was in the ER yesterday for her asthma. She was given decadron and it has helped her breathing. Since she got home she has had v fabby bad diarrhea. She said that this had happened before when she took predn isone. Should she continue the decadron? She was advised to contin ue decadron as prescribed and take Imodium which she has at home. Please advise. Vianca Negron, RN, RN 10/23/2018 12:09 PM Signed Pt calling back Still having diarrhea She did take Imodium She did not take the Decadron today Please advise Alaina Erickson MD 10/23/2018 1:41 PM Signed Hold the decadron today , take 2 puffs twice a day of the Advair and report progress in morning. Continue imodium, avoid dairy MD Vianca Ruff, RN, RN 10/23/2018 1:48 PM Signed Spoke with patient and relayed message. Patient verbalized u nderstanding. Anat Swanson RN, RN 10/24/2018 8:41 AM Signed Patient called back and the imodium real ly helped her diarrhea and she has not had anymore. Patient also reported that her asthma is doing well, Denied any sob or wheezing. Some chest tightness, but only at night. Patient did not take Decadron yesterday or today. Patient advised to call back if diarrhea reoccurs or if asthma symptoms worsen. Allergies As of Date: 10/23/2018 Noted Allergy Reaction ADHESIVE TAPE (ROSINS) 12/05/2016 2 - Rash BACTRIM DS (SULFAMETHOXAZOLE-TRIM*12/29/2014 10 - Anaphylaxi s Comments: Difficulty breathing, fever, chills BEE STING 08/28/2012 10 - Anaphylaxis DARVON (PROPOXYPHENE HCL) 05/15/2007 PREDNISONE 03/07/2016 8 - GI Upset Date Reviewed: 09/09/2018 Reviewed by: Dwight Encarnacion - Fully Assessed Reason for Visit: Diarrhea [35] Prescriptions as of 10/23/2018 Sig: ATORVASTATIN 40 MG TABLET Take 1 tablet by mouth once d* AMMONIUM LACTATE 12 % LOTION Apply 1 application to affect* THIAMINE MONONITRATE (VITAMIN* Take 1 tablet by mouth once d * MAGNESIUM 250 MG ( MAGNESIU* Take 2 tablets by mouth once * FLUTICASONE PROPIONATE 50 MCG* Use 2 Sprays in each nostril * CYCLOSPORINE 0.05 % EYE DROPS* Use 1 Drop in both eyes twice * LORATADINE 10 MG TABLET Take 1 tablet by mouth once d* VERAPAMIL ER (SR) 240 MG TABL* TAKE 1 TABLET BY MOUTH EVERYD * BENZONATATE 100 MG CAPSULE Take 2 capsules by mouth thre* Patient not taking: Reported on 08/30/2018 FLUTICASONE 100 MCG-SALMETERO* Inhale 1 Puff as instructed t * PANTOPRAZOLE 20 MG TABLET,DEL* Take 1 tablet by mouth daily * ALBUTEROL SULFATE HFA 90 MCG/* Inhale 2 Puffs as instructed * EPINEPHRINE 0.3 MG/0.3 ML INJ* Inject 0.3 mL intramuscularly * COMPOUNDED PRESCRIPTION NEBULIZER FOR HOME USE. DX: * ALBUTEROL SULFATE 2.5 MG/3 ML* Use 3 mL via nebulizer every * GLUCOSAMINE 1500 COMPLEX ORAL Take 1 tablet by mouth once d* Problem List As Of Date 10/23/2018 Noted Resolved Sebaceous cyst [L72.3] INVALID FOR*04/16/2012 Environmental allergies [Z91.09] Asthma [J45.909] More... Arthropathy, unspecified, site unspecified [M12* Essential hypertension [I10] More... IBS (irritable bowel syndrome) [K58.9] GERD (gastroesophageal reflux disease) [K21.9] More... Migraine [G43.909] More... Diverticulitis [K57.92] Hyperlipidemia, mixed [E78.2] More... Fracture of finger, middle or proximal phalanx,*INVALID FOR* History of colon polyps [Z86.010] Chronic pain of right knee [M25.561, G89.29] INVALID FOR* Primary osteoarthritis of right knee [M17.11] INVALID FOR* BPPV (benign paroxysmal positional vertigo) [H8*INVALID FOR* Bee sting allergy [Z91.030] INVALID FOR* Bilateral low back pain with bilateral sciatica*INVALID FOR* More... Calculus of kidney [N20.0] INVALID FOR* More... LLQ pain [R10.32] INVALID FOR* TIA (transient ischemic attack) [G45.9] INVALID FOR* Dry skin [L85.3] INVALID FOR* Encounter Status:Closed by VIANCA NEGRON on 10/23/18 progress on 2018-08 PROGRESS HNO ID: [id number] Normal 09-09-2018 [place] Author: Dwight Encarnacion [facility] Service: ? [place] Author Type: Physician ([id number]) Type: Progress Notes Filed: 09/09/2018 9:18 AM Note Text: Dwight Encarnacion MD Department of Orthopaedics Orthopaedics [address] [facility] [address] Dept: [phone] Dept September 09, 2018 CHIEF COMPLAINT: Established Patient (Monovisc injection Rig ht knee). ASSESSMENT: M17.11 Primary osteoarthritis of right knee (primary encount er diagnosis) M25.561, G89.29 Chronic pain of right knee SUMMARY/PLAN: Patient returns today after approval of Visco supplementatio n. She has pretty constant 9 out of 10 pain as she had the knee buckle a couple times this weekend. 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 We'll write her off for 48 hours. Procedure note: The risk, benefits and alternatives of injection and no inje ction therapy were discussed. The patient consented for an injection. Time out was conducted. The injection site was prepped with a Chlorhexadi ne swab. The right Superolateral joint was injected with a 25 gauge needl e with Monovisc (88 mg). The injection site was then dressed with a bandaid. The patient tolerated the injection well. The patient was in structed to call the office if any adverse local effects occurred or any if any questions or concerns arise. Dwight Encarnacion MD Supporting Information Below: Medications: Current Outpatient Medications: atorvastatin (LIPITOR) 40 mg tablet Take 1 tablet by mouth o nce daily. ammonium lactate (LAC-HYDRIN) 12 % lotion Apply 1 applicatio n to affected area as needed for Dry Skin (arms). thiamine mononitrate (VITAMIN B1) 100 mg tab Take 1 tablet b y mouth once daily. Magnesium Oxide 250 mg magnesium tab Take 2 tablets by mouth once daily. fluticasone (FLONASE) 50 mcg/actuation nasal spray Use 2 Spr ays in each nostril once daily. cycloSPORINE (RESTASIS) 0.05 % ophthalmic emulsion Use 1 Joon p in both eyes twice daily. Both eyes. loratadine (CLARITIN) 10 mg tablet Take 1 tablet by mouth on ce daily. verapamil SR (CALAN SR, ISOPTIN SR) 240 mg CR tablet TAKE 1 TABLET BY MOUTH EVERYDAY AT BEDTIME fluticasone-salmeterol (ADVAIR DISKUS) 100-50 mcg/dose dsdv Inhale 1 Puff as instructed twice daily. RINSE AND GARGLE MOUTH WITH WATER AFTER EACH USE. pantoprazole DR (PROTONIX) 20 mg tablet Take 1 tablet by daily before breakfast. Take on empty stomach, 1/2 hr before meal. albuterol HFA (VENTOLIN HFA) 90 mcg/actuation inhaler Inhale 2 Puffs as instructed every 6 hours as needed. EPINEPHrine (AUVI-Q) 0.3 mg/0.3 mL auto-injector Inject 0.3 mL intramuscularly as needed. Nebulizer NEBULIZER FOR HOME USE. DX: J45.20 albuterol (PROVENTIL) 2.5 mg /3 mL (0.083 %) nebulizer solut ion Use 3 mL via nebulizer every 4 hours as needed for Wheezing/Shortness of Breath. Use over 5-15minutes. benzonatate (TESSALON PERLES) 100 mg capsule Take 2 capsules by mouth three times daily as needed. (Patient not taking: Reported o n 08/30/2018 ) GLUC BARR/CHONDRO BARR A/VIT C/MN (GLUCOSAMINE 1500 COMPLEX ORAL ) Take 1 tablet by mouth once daily. No current facility-administered medications for this visit. Allergies: Adhesive Tape (Rosins); Bactrim Ds [Sulfamethoxazole-Trimethoprim]; Bee Sting; Darvon [Propoxyp hene Hcl]; Prednisone This note was partially generated using [employer] system, and there may be some incorrect words, spellings, and punctu ation that were not noted in checking the note before saving. Dwight Encarnacion MD PROGRESS HNO ID: [id number] [place] 09-09-2018 [place] Author: Dwight Encarnacion [facility] Service: ? [place] Author Type: Physician ([id number]) Type: Progress Notes Filed: 09/09/2018 9:18 AM Note Text: Patient presents with: Established Patient: Monovisc injection Right knee AMB ROOMING INTAKE FLOWSHEET DATA Risk Screening Do you have concerns about personal safety or safety in the home?: No Pain Pain Level: 9 Pain Location: Knee-Right Description: Aching, Dull, Sharp Duration Amount of Time: (Ongoing) Frequency: Continuous Intervention: Medication Patient states her knee buckled on Sunday and yesterday. K nee is painful. Taking Tylenol for the pain and helps some. Here fo r Monovisc injection right knee. Lot # [id number] Exp.03/28/2021. Omer de león is a resource development manager at [employer] and is on her feet all day. Requesting a note for work to be off today and tomorrow. cnov on 2018-09-09 CNOV Office Visit (ORTHWS) Normal 09-10-19 19 [place] [facility] ROMAIN BAILEY ([id number]) 1950 [facility] Date Time Provider Department ([id number]) 09/09/18 8:00 AM DWIGHT ENCARNACION During your visit today, we recorded the following informati on about you: Dwight Encarnacion MD 09/09/2018 9:18 AM Signed Patient presents with: Established Patient: Monovisc injection Right knee AMB ROOMING INTAKE FLOWSHEET DATA Risk Screening Do you have concerns about personal safety or safety in the home?: No Pain Pain Level: 9 Pain Location: Knee-Right Description: Aching, Dull, Sharp Duration Amount of Time: (Ongoing) Frequency: Continuous Intervention: Medication Patient states her knee buckled on Sunday and yesterday. Knee is painful. Taking Tylenol for the pain and helps some. Here for Monovisc injection right knee. Lot # [id number] Exp.03/28/2021. 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 Requesting a note fo r work to be off today and tomorrow. Dwight Encarnacion MD 09/09/2018 9:18 AM Signed Dwight Encarnacion MD Department of Orthopaedics Orthopaedics [address] [facility] [address] Dept: [phone] Dept September 09, 2018 CHIEF COMPLAINT: Established Patient (Monovisc injection Rig ht knee). ASSESSMENT: M17.11 Primary osteoarthritis of right knee (primary encount er diagnosis) M25.561, G89.29 Chronic pain of right knee SUMMARY/PLAN: Patient returns today after approval of Visco barr pplementation. She has pretty constant 9 out of 10 pain as she had the knee buckle a coupl e times this weekend. 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 We'll write her off for 48 hours. Procedure note: The risk, benefits and alternatives of i njection and no injection therapy were discussed. The patient consented for an injection. Time out was conducted. The injection site was prepped with a Chlorhexadine swab. The right Superolateral joint was injected with a 25 gauge needl e with Monovisc (88 mg). The injection site was then dressed with a bandaid. The patient tolerated the injection well. The patient was instructed to call the office if any a dverse local effects occurred or any if any questions or concerns arise. Dwight Encarnacion MD Supporting Information Below: Medications: Current Outpatient Medications: atorvastatin (LIPITOR) 40 mg tablet Take 1 tablet by mouth o nce daily. ammonium lactate (LAC-HYDRIN) 12 % lotio n Apply 1 application to affected area as needed for Dry Skin (arms). thiamine mononitrate (VITAMI N B1) 100 mg tab Take 1 tablet by mouth once daily. Magnesium Oxide 250 mg magnesium tab Take 2 tablets by mouth once daily. fluticasone (FLONASE) 50 mcg /actuation nasal spray Use 2 Sprays in each nostril once daily. cycloSPORINE (RESTASIS) 0.05 % ophthalmic emulsion Use 1 Joon p in both eyes twice daily. Both eyes. loratadine (CLARITIN) 10 mg tablet Take 1 tablet by mouth on ce daily. verapamil SR (CALAN SR, ISOPTIN SR) 240 mg CR tablet TAKE 1 TABLET BY MOUTH EVERYDAY AT BEDTIME fluticasone-salmeterol (ADVAIR DISKUS) 100-50 mcg/dose dsdv Inhale 1 Puff as instructed twice daily. RINSE AND GARGLE MOUTH WITH WATER AF TER EACH USE. pantoprazole DR (PROTONIX) 20 mg tablet Take 1 tablet by m outh daily before breakfast. Take on empty stomach, 1/2 hr before meal. albuterol HFA (VENTOLIN HFA) 90 mcg/actuation inhaler Inhale 2 Puffs as instructed every 6 hours as needed. EPINEPHrine (AUVI-Q) 0.3 mg/0.3 mL auto- injector Inject 0.3 mL intramuscularly as needed. Nebulizer NEBULIZER FOR HOME USE. DX: J45.20 albuterol (PROVENTIL) 2.5 mg /3 mL (0.083 %) nebulizer solution Use 3 mL via nebulizer every 4 hours as needed for Wheezing/Shortne ss of Breath. Use over 5-15minutes. benzonatate (TESSALON PERLES) 100 mg capsule Take 2 capsul es by mouth three times daily as needed. (Patient not taking: Reported on 2018 ) GLUC BARR/CHONDRO BARR A/VIT C/MN (GLUCOSAMI NE 1500 COMPLEX ORAL) Take 1 tablet by mouth once daily. No current facility-administered medications for this visit. Allergies: Adhesive Tape (Rosins); Bactr im Ds [Sulfamethoxazole-Trimethoprim]; Bee Sting; Darvon [Propoxyphene Hcl]; Prednisone This note was partially generated using [employer] system, and there may be some incorrect words, spellings, and punctuat ion that were not noted in checking the note before saving. Dwight Encarnacion MD Referring Provider: DWIGHT ENCARNACION [[id number]] Allergies As of Date: 09/09/2018 Noted Allergy Reaction ADHESIVE TAPE (ROSINS) 12/05/2016 2 - Rash BACTRIM DS (SULFAMETHOXAZOLE-TRIM*12/29/2014 10 - Anaphylaxi s Comments: Difficulty breathing, fever, chills BEE STING 08/28/2012 10 - Anaphylaxis DARVON (PROPOXYPHENE HCL) 05/15/2007 PREDNISONE 03/07/2016 8 - GI Upset Date Reviewed: 09/09/2018 Reviewed by: Dwight Encarnacion - Fully Assessed Reason for Visit: Established Patient [175] Cmt: Monovisc injection Right knee Primary Visit Diagnosis:Primary osteoarthritis of right knee [M17.11] Other Visit Diagnosis:Chronic pain of right knee [M25.561, G 89.29] Order(s):hyaluronate sodium, stabilized syrg 88 mg (MONOVISC )Disp: Rfl: Prescriptions as of 09/09/2018 Sig: ATORVASTATIN 40 MG TABLET Take 1 tablet by mouth once d* AMMONIUM LACTATE 12 % LOTION Apply 1 application to affect* THIAMINE MONONITRATE (VITAMIN* Take 1 tablet by mouth once d * MAGNESIUM 250 MG ( MAGNESIU* Take 2 tablets by mouth once * FLUTICASONE PROPIONATE 50 MCG* Use 2 Sprays in each nostril * CYCLOSPORINE 0.05 % EYE DROPS* Use 1 Drop in both eyes twice * LORATADINE 10 MG TABLET Take 1 tablet by mouth once d* VERAPAMIL ER (SR) 240 MG TABL* TAKE 1 TABLET BY MOUTH EVERYD * FLUTICASONE 100 MCG-SALMETERO* Inhale 1 Puff as instructed t * PANTOPRAZOLE 20 MG TABLET,DEL* Take 1 tablet by mouth daily * ALBUTEROL SULFATE HFA 90 MCG/* Inhale 2 Puffs as instructed * EPINEPHRINE 0.3 MG/0.3 ML INJ* Inject 0.3 mL intramuscularly * COMPOUNDED PRESCRIPTION NEBULIZER FOR HOME USE. DX: * ALBUTEROL SULFATE 2.5 MG/3 ML* Use 3 mL via nebulizer every * BENZONATATE 100 MG CAPSULE Take 2 capsules by mouth thre* Patient not taking: Reported on 08/30/2018 GLUCOSAMINE 1500 COMPLEX ORAL Take 1 tablet by mouth once d* Problem List As Of Date 09/09/2018 Noted Resolved Sebaceous cyst [L72.3] INVALID FOR*04/16/2012 Environmental allergies [Z91.09] Asthma [J45.909] More... Arthropathy, unspecified, site unspecified [M12* Essential hypertension [I10] More... IBS (irritable bowel syndrome) [K58.9] GERD (gastroesophageal reflux disease) [K21.9] More... Migraine [G43.909] More... Diverticulitis [K57.92] Hyperlipidemia, mixed [E78.2] More... Fracture of finger, middle or proximal phalanx,*INVALID FOR* History of colon polyps [Z86.010] Chronic pain of right knee [M25.561, G89.29] INVALID FOR* Primary osteoarthritis of right knee [M17.11] INVALID FOR* BPPV (benign paroxysmal positional vertigo) [H8*INVALID FOR* Bee sting allergy [Z91.030] INVALID FOR* Bilateral low back pain with bilateral sciatica*INVALID FOR* More... Calculus of kidney [N20.0] INVALID FOR* More... LLQ pain [R10.32] INVALID FOR* TIA (transient ischemic attack) [G45.9] INVALID FOR* Dry skin [L85.3] INVALID FOR* Prescriptions ordered this encounter Disp Refills Start End HYALURONATE SODIUM, STABILIZED 88 MG* 09/09/2018 09/09/2018 Route: [facility] Letter Text Encounter Status:Closed by DWIGHT ENCARNACION MD on 09/09/18 progress on 2018-08 PROGRESS HNO ID: [id number] Normal 09-03-2018 [place] Author: Alaina Erickson [facility] Service: ? [place] Author Type: Physician ([id number]) Type: Progress Notes Filed: 09/03/2018 9:33 AM Note Text: F/u hospital stay 07/29. Headache, visual change/ stagering. D iscussion at the hospital on a TIA versus complex migraine. She had addit ion of Lipitor, magnesium Dry skin: needs refill on the ammonium lactate PAST MEDICAL HISTORY Diagnosis Date - Arthropathy, unspecified, site unspecified - Asthma - Back pain - Colon polyps 2013 - Diverticulitis 2000 - Environmental allergies - GERD (gastroesophageal reflux disease) - Hyperlipidemia lifestyle controlled - Hypertension - IBS (irritable bowel syndrome) - Migraine - Obesity PAST SURGICAL HISTORY Procedure Laterality Date - COLONOSCOP W/ OR W/O BRSH SPEC 05/29/2018 Colonoscopy - COLONOSCOPY AND POLYPECTOMY 12/03/2013 tubular adenoma, hyperplastic polyp; repeat due in 5y - DEBRIDE SKIN AND SUBQ TISSU 05/15/07 Debridement infected moira cyst upper mid back - PAST SURGICAL HISTORY OF 1984 metal removed from right tibial area - PAST SURGICAL HISTORY OF DANDC - REMOVAL GALLBLADDER ~2003 Cholecystectomy laparoscopic - TOTAL ABDOM HYSTERECTOMY 1999 MAURICE/BSO-pain, no abnormal paps ALLERGIES Adhesive Tape (Rosins); Bactrim Ds [Sulfamethoxazole-Trimethoprim]; Bee Sting; Darvon [Propoxyp hene Hcl]; Prednisone MEDICATIONS atorvastatin (LIPITOR) 40 mg tablet Take 1 tablet by mouth o nce daily. ammonium lactate (LAC-HYDRIN) 12 % lotion Apply 1 applicatio n to affected area as needed for Dry Skin (arms). thiamine mononitrate (VITAMIN B1) 100 mg tab Take 1 tablet b y mouth once daily. Magnesium Oxide 250 mg magnesium tab Take 2 tablets by mouth once daily. fluticasone (FLONASE) 50 mcg/actuation nasal spray Use 2 Spr ays in each nostril once daily. cycloSPORINE (RESTASIS) 0.05 % ophthalmic emulsion Use 1 Joon p in both eyes twice daily. Both eyes. loratadine (CLARITIN) 10 mg tablet Take 1 tablet by mouth on ce daily. verapamil SR (CALAN SR, ISOPTIN SR) 240 mg CR tablet TAKE 1 TABLET BY MOUTH EVERYDAY AT BEDTIME fluticasone-salmeterol (ADVAIR DISKUS) 100-50 mcg/dose dsdv Inhale 1 Puff as instructed twice daily. RINSE AND GARGLE MOUTH WITH WATER AFTER EACH USE. pantoprazole DR (PROTONIX) 20 mg tablet Take 1 tablet by robert th daily before breakfast. Take on empty stomach, 1/2 hr before meal. albuterol HFA (VENTOLIN HFA) 90 mcg/actuation inhaler Inhale 2 Puffs as instructed every 6 hours as needed. EPINEPHrine (AUVI-Q) 0.3 mg/0.3 mL auto-injector Inject 0.3 mL intramuscularly as needed. Nebulizer NEBULIZER FOR HOME USE. DX: J45.20 albuterol (PROVENTIL) 2.5 mg /3 mL (0.083 %) nebulizer solut ion Use 3 mL via nebulizer every 4 hours as needed for Wheezing/Shortness of Breath. Use over 5-15minutes. benzonatate (TESSALON PERLES) 100 mg capsule Take 2 capsules by mouth three times daily as needed. GLUC BARR/CHONDRO BARR A/VIT C/MN (GLUCOSAMINE 1500 COMPLEX ORAL ) Take 1 tablet by mouth once daily. FAMILY HISTORY Problem Relation Age of Onset - None Mother from fall - Diabetes Father - Ischemic Heart Disease Father d. CA - Ischemic Heart Disease Maternal Grandfather d. 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 PHYSICAL EXAMINATION BP 121/64 (BP Site: Left Arm, BP Position: Sitting, BP Cuff Size: Regular Adult) Pulse 81 Temp 37 ?C (98.6 ?F) Ht 167.6 cm (5' 6 ) Wt 80.6 kg (177 lb 9.6 oz) BMI 28.67 kg/m? General: Alert and oriented, no distress, pleasant and coope rative. Heart: Regular, normal S1 and S2, no murmurs, rubs, or lowery ps Lungs: Clear to auscultation bilaterally Abdomen: Benign Extremities: Feet/ankles without edema, posterior tibial pul ses full and symmetrical CTA neck shows no plaque MRI show likely microvascular ischemia Assessment/Plan: (G45.9) TIA (transient ischemic attack) (primary encounter d iagnosis) Comment: Versus complex migraine Plan: atorvastatin (LIPITOR) 40 mg tablet, CONSULT TO NEUROLOGY Aggressive statin regimen started though there is no direct evidence of atherosclerotic disease. Will weigh the necessity of this med over time. She does not have hyperlipidemia (G43.109) Migraine with aura and without status migrainosus, not intractable Comment: Plan: CONSULT TO NEUROLOGY Signed Prescriptions Disp Refills atorvastatin (LIPITOR) 40 mg tablet 90 tablet 3 Sig: Take 1 tablet by mouth once daily. KIKO: No ammonium lactate (LAC-HYDRIN) 12 % lotion 120 g 2 Sig: Apply 1 application to affected area as needed for Dry Skin (arms). KIKO: No RTO: After neuro consult MD yovani Ruffov on 2018-08-30 CNOV Office Visit (FPWADS) Normal 08-31-19 19 [place] [facility] ROMAIN BAILEY ([id number]) 1950 [facility] Date Time Provider Department ([id number]) 08/30/18 9:20 AM ALAINA ERICKSON During your visit today, we recorded the following informati on about you: Temperature Pulse Blood pressure Weight 98.6 degrees 81/minute 121/64 80.6 kg Height 1.676 m Alaina Erickson MD 09/03/2018 9:33 AM Signed F/u hospital stay 07/29. Headache, visual change/ stager ing. Discussion at the hospital on a TIA versus complex migraine. She had addition of Lipitor, magnesium Dry skin: needs refill on the ammonium lactate PAST MEDICAL HISTORY Diagnosis Date - Arthropathy, unspecified, site unspecified - Asthma - Back pain - Colon polyps 2013 - Diverticulitis 2000 - Environmental allergies - GERD (gastroesophageal reflux disease) - Hyperlipidemia lifestyle controlled - Hypertension - IBS (irritable bowel syndrome) - Migraine - Obesity PAST SURGICAL HISTORY Procedure Laterality Date - COLONOSCOP W/ OR W/O BRSH SPEC 05/29/2018 Colonoscopy - COLONOSCOPY AND POLYPECTOMY 12/03/2013 tubular adenoma, hyperplastic polyp; repeat due in 5y - DEBRIDE SKIN AND SUBQ TISSU 05/15/07 Debridement infected moira cyst upper mid back - PAST SURGICAL HISTORY OF 1984 metal removed from right tibial area - PAST SURGICAL HISTORY OF DANDC - REMOVAL GALLBLADDER ~2003 Cholecystectomy laparoscopic - TOTAL ABDOM HYSTERECTOMY 1999 MAURICE/BSO-pain, no abnormal paps ALLERGIES Adhesive Tape (Rosins); Bactrim Ds [Barr lfamethoxazole-Trimethoprim]; Bee Sting; Darvon [Propoxyphene Hcl]; Prednisone MEDICATIONS atorvastatin (LIPITOR) 40 mg tablet Take 1 tablet by mouth o nce daily. ammonium lactate (LAC-HYDRIN) 12 % lotio n Apply 1 application to affected area as needed for Dry Skin (arms). thiamine mononitrate (VITAMI N B1) 100 mg tab Take 1 tablet by mouth once daily. Magnesium Oxide 250 mg magnesium tab Take 2 tablets by mouth once daily. fluticasone (FLONASE) 50 mcg /actuation nasal spray Use 2 Sprays in each nostril once daily. cycloSPORINE (RESTASIS) 0.05 % ophthalmic emulsion Use 1 Joon p in both eyes twice daily. Both eyes. loratadine (CLARITIN) 10 mg tablet Take 1 tablet by mouth on ce daily. verapamil SR (CALAN SR, ISOPTIN SR) 240 mg CR tablet TAKE 1 TABLET BY MOUTH EVERYDAY AT BEDTIME fluticasone-salmeterol (ADVAIR DISKUS) 100-50 mcg/dose dsdv Inhale 1 Puff as instructed twice daily. RINSE AND GARGLE MOUTH WITH WATER AF TER EACH USE. pantoprazole DR (PROTONIX) 20 mg tablet Take 1 tablet by m outh daily before breakfast. Take on empty stomach, 1/2 hr before meal. albuterol HFA (VENTOLIN HFA) 90 mcg/actuation inhaler Inhale 2 Puffs as instructed every 6 hours as needed. EPINEPHrine (AUVI-Q) 0.3 mg/0.3 mL auto- injector Inject 0.3 mL intramuscularly as needed. Nebulizer NEBULIZER FOR HOME USE. DX: J45.20 albuterol (PROVENTIL) 2.5 mg /3 mL (0.083 %) nebulizer solution Use 3 mL via nebulizer every 4 hours as needed for Wheezing/Shortne ss of Breath. Use over 5-15minutes. benzonatate (TESSALON PERLES) 100 mg capsule Take 2 capsul es by mouth three times daily as needed. GLUC BARR/CHONDRO BARR A/VIT C/MN (GLUCOSAMI NE 1500 COMPLEX ORAL) Take 1 tablet by mouth once daily. FAMILY HISTORY Problem Relation Age of Onset - None Mother from fall - Diabetes Father - Ischemic Heart Disease Father d. [place] - Ischemic Heart Disease Maternal Grandfather d. 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 PHYSICAL EXAMINATION BP 121/64 (BP Site: Left Arm, BP Position: Sitting, BP Cuff Size: Regular Adult) Pulse 81 Temp 37 ?C (98.6 ?F) Ht 167.6 cm (5' 6) Wt 80.6 kg (177 lb 9.6 oz) BMI 28.67 kg/m? General: Alert and oriented, no distress, pleasant and coope rative. Heart: Regular, normal S1 and S2, no murmurs, rubs, or lowery ps Lungs: Clear to auscultation bilaterally Abdomen: Benign Extremities: Feet/ankles without edema, posterior tibial pul ses full and symmetrical CTA neck shows no plaque MRI show likely microvascular ischemia Assessment/Plan: (G45.9) TIA (transient ischemic attack) (primary encounter d iagnosis) Comment: Versus complex migraine Plan: atorvastatin (LIPITOR) 40 mg tablet, CONSULT TO NEUROLOGY Aggressive statin regimen started though there is no direct evidence of atherosclerotic disease. Will weigh the necessity of t his med over time. She does not have hyperlipidemia (G43.109) Migraine with aura and without status migrai nosus, not intractable Comment: Plan: CONSULT TO NEUROLOGY Signed Prescriptions Disp Refills atorvastatin (LIPITOR) 40 mg tablet 90 tablet 3 Sig: Take 1 tablet by mouth once daily. KIKO: No ammonium lactate (LAC-HYDRIN) 12 % lotion 120 g 2 Sig: Apply 1 application to affected area as needed for Dry Skin (arms). KIKO: No RTO: After neuro consult Alaina Erickson MD Referring Provider: ALAINA ERICKSON [[id number]] Allergies As of Date: 08/30/2018 Noted Allergy Reaction ADHESIVE TAPE (ROSINS) 12/05/2016 2 - Rash BACTRIM DS (SULFAMETHOXAZOLE-TRIM*12/29/2014 10 - Anaphylaxi s Comments: Difficulty breathing, fever, chills BEE STING 08/28/2012 10 - Anaphylaxis DARVON (PROPOXYPHENE HCL) 05/15/2007 PREDNISONE 03/07/2016 8 - GI Upset Date Reviewed: 08/30/2018 Reviewed by: Naheed Bang MA - Fully Assessed Reason for Visit: Recheck [92] Primary Visit Diagnosis:TIA (transient ischemic attack) [G45 .9] Other Visit Diagnoses:Migraine with aura and without s tatus migrainosus, not intractable [G43.109] Hospital discharge follow-up [Z09] Dry skin [L85.3] Order(s):atorvastatin (LIPITOR) 40 mg tabletTake 1 tablet by mouth once daily.Disp: 90 tabletRfl: 3 CONSULT TO NEUROLOGY [9019] Order #: [id number]: 1 ammonium lactate (LAC-HYDRIN) 12 % lotionApply 1 application to affected area as needed for Dry Skin (arms).Disp: 120 gRfl: 2 Prescriptions as of 08/30/2018 Sig: ATORVASTATIN 40 MG TABLET Take 1 tablet by mouth once d* AMMONIUM LACTATE 12 % LOTION Apply 1 application to affect* THIAMINE MONONITRATE (VITAMIN* Take 1 tablet by mouth once d * MAGNESIUM 250 MG ( MAGNESIU* Take 2 tablets by mouth once * FLUTICASONE PROPIONATE 50 MCG* Use 2 Sprays in each nostril * CYCLOSPORINE 0.05 % EYE DROPS* Use 1 Drop in both eyes twice * LORATADINE 10 MG TABLET Take 1 tablet by mouth once d* VERAPAMIL ER (SR) 240 MG TABL* TAKE 1 TABLET BY MOUTH EVERYD * FLUTICASONE 100 MCG-SALMETERO* Inhale 1 Puff as instructed t * PANTOPRAZOLE 20 MG TABLET,DEL* Take 1 tablet by mouth daily * ALBUTEROL SULFATE HFA 90 MCG/* Inhale 2 Puffs as instructed * EPINEPHRINE 0.3 MG/0.3 ML INJ* Inject 0.3 mL intramuscularly * COMPOUNDED PRESCRIPTION NEBULIZER FOR HOME USE. DX: * ALBUTEROL SULFATE 2.5 MG/3 ML* Use 3 mL via nebulizer every * BENZONATATE 100 MG CAPSULE Take 2 capsules by mouth thre* Patient not taking: Reported on 08/30/2018 GLUCOSAMINE 1500 COMPLEX ORAL Take 1 tablet by mouth once d* Problem List As Of Date 08/30/2018 Noted Resolved Sebaceous cyst [L72.3] INVALID FOR*04/16/2012 Environmental allergies [Z91.09] Asthma [J45.909] More... Arthropathy, unspecified, site unspecified [M12* Essential hypertension [I10] More... IBS (irritable bowel syndrome) [K58.9] GERD (gastroesophageal reflux disease) [K21.9] More... Migraine [G43.909] More... Diverticulitis [K57.92] Hyperlipidemia, mixed [E78.2] More... Fracture of finger, middle or proximal phalanx,*INVALID FOR* History of colon polyps [Z86.010] Chronic pain of right knee [M25.561, G89.29] INVALID FOR* Primary osteoarthritis of right knee [M17.11] INVALID FOR* BPPV (benign paroxysmal positional vertigo) [H8*INVALID FOR* Bee sting allergy [Z91.030] INVALID FOR* Bilateral low back pain with bilateral sciatica*INVALID FOR* More... Calculus of kidney [N20.0] INVALID FOR* More... LLQ pain [R10.32] INVALID FOR* TIA (transient ischemic attack) [G45.9] INVALID FOR* Prescriptions ordered this encounter Disp Refills Start End ATORVASTATIN 40 MG TABLET 90 t* 3 08/30/2018 08/30/2019 Route: ORAL Sig: Take 1 tablet by mouth once daily. AMMONIUM LACTATE 12 % LOTION 120 g 2 08/30/2018 Route: TOPICAL Sig: Apply 1 application to affected area as needed for Dry Skin (arms). Medications Discontinued During This Encounter atorvastatin (LIPITOR) 40 mg tablet 30 t* 1 07/30/2018 9 Class: Print RX Route: ORAL Sig: Take 1 tablet by mouth once daily. Disc: Reason for discontinue is not on file. ammonium lactate (LAC-HYDRIN) 12 % l* 120 g 2 12/05/201608/30 Route: TOPICAL Sig: Apply 1 application to affected area as needed for Dry Skin (arms). Disc: Reason for discontinue is not on file. Letter Text Encounter Status:Closed by PAUL ERICKSON MD on 09/03/18 progress on 2018-07 PROGRESS HNO ID: [id number] Normal 08-07-2018 [facility] Author: Dave Low RN ([id number]) Service: ? Author Type: ? Type: Progress Notes Filed: 08/07/2018 4:55 PM Note Text: Appt. Noted for 08/30 xr knee 4v ap/pa both+lat/rubi rt on 2018-08-05 XR KNEE 4V AP/PA * * *Final Report* * * Normal 08-05-2018 [place] BOTH+LAT/RUBI RT DATE OF EXAM: Aug 05 2018 1:02PM Clinic WRX 5203 - XR KNEE 4V AP/PA BOTH+LAT/RUBI RT / [id number] [place] PROCEDURE REASON: Right knee pain, unspecified chronicity ([id number]) * * * * Physician Interpretation * * * * PROCEDURE: Right knee INDICATION: Right knee pain, unspecified chronicity .right a nterior , posterior knee pain for 2 months TECHNIQUE: XR KNEE 4V AP/PA BOTH+LAT/RUBI RT COMPARISON: None FINDINGS: Diffuse bone demineralization. Significant medial joint comp artment narrowing and mild to moderate patellofemoral joint compartm ent narrowing with tricompartment spur formation. No fracture or joint eff usion. Mild degenerative change in the left knee. IMPRESSION: Osteoarthrosis Fork Operator: ROSITA Transcribe Date/Time: Aug 05 2018 4:26P Dictated by : TORO LARSEN MD This examination was interpreted and the report reviewed and electronically signed by: TORO LARSEN MD on Aug 05 2018 4:27PM EST [id number] progress on 2018-07 PROGRESS HNO ID: [id number] Normal 08-05-2018 [place] Author: Dwight Encarnacion [facility] Service: ? [place] Author Type: Physician ([id number]) Type: Progress Notes Filed: 08/12/2018 7:54 AM Note Text: Dwight Encarnacion MD Department of Orthopaedics Orthopa[facility] [address] [facility] [address] Dept: [phone] Dept August 05, 2018 CHIEF COMPLAINT: Established Patient (Right knee pain and po pping) HPI: Ms. Romain Bailey is a 68 year old female who returns again with some persistent right knee pain. Pain ranges anywhere from 2 -10 out of 10 but a baseline of 7. Aching and throbbing and a pulling sens ation. It's been bothering her more last 2 or 3 months. No new injury. I t will lock and give out at times. She's been taking 1000 mg of Tylenol with just minimal relief. Ice and heating as well. She has had success with Visco supplementation in the past as well as intermittent improvem ent with cortisone injections. ASSESSMENT: M25.561, G89.29 Chronic pain of right knee (primary encounte r diagnosis) M17.11 Primary osteoarthritis of right knee PLAN: We'll go with a cortisone injection today and also get her a pproval for Visco supplementation as she has had improvement in the past . FOLLOW UP INSTRUCTIONS: As above Ms. Romain Bailey was advised as to contrast therapies and /or to take analgesics/anti-inflammatories as needed and all contraindic ations were reviewed. OBJECTIVE: Ms. Romain Bailey is a pleasant 68 year old in no apparent distress. Gen:There were no vitals taken for this visit. nl development, non obese, no deformities ENT: Normocephalic, normal hearing, moist mucosa CV: Pulses:DP/PT= 2+ and symmetric, capillary refill < 2 sec s, no peripheral edema/varicosities Skin: no rash, bruising or lesions. Good turgor. Psych: cooperative and appropriate, alert and oriented x 3, good mood and affect. Musculoskeletal: Patient walks with antalgia, normal station. Hip motion with out pain. Knee with persistent, mild effusion. Patella tracks normally . There is no patellar crepitance. No pain along the medial or lateral facets. Range of motion 5?130 degrees. Positive medial, without lateral thanh int line pain on palpation. Ligamentous exam with stable endpoint on varus and valgus stress testing at 0 and 30 degrees, though she does have zach e mild medial space widening with valgus stressing consistent with mild li gamentous laxity. Adan's examination is negative. Posterior drawer is negative. Painful McMurrays, without palpable click. Extremity is warm and well perfused. Sensation is grossly intact to light touch, subjec tively. The risk, benefits and alternatives of injection and no inje ction therapy were discussed. The patient consented for an injection. Time out was conducted. The injection site was prepped with a Chlorhexadi ne swab. The right Superolateral joint was injected with a 25 gauge needl e with 1 cc (40 mg) Kenalog, 5 cc Marcaine 0.5% . The injection site was then dressed with a bandaid. The patient tolerated the injection well. e patient was instructed to call the office if any adverse local effec ts occurred or any if any questions or concerns arise. Dwight Encarnacion MD IMAGING: IMPRESSION: Osteoarthrosis Fork Operator: PSCB ? Transcribe Date/Time: Aug 05 2018 ?4:26P Dictated by : TORO LARSEN MD This examination was interpreted and the report reviewed and electronically signed by: TORO LARSEN MD on Aug 05 2018 ?4:27PM ?EST Results-Findings * * *Final Report* * * DATE OF EXAM: Aug 05 2018 ?1:02PM ? WRX ? 5203 ?- ?XR KNEE 4V AP/PA BOTH+LAT/RUBI RT ?/ PROCEDURE REASON: Right knee pain, unspecified chronicity ?? ? * * * * Physician Interpretation * * * * ?PROCEDURE: ?Right knee INDICATION: ?Right knee pain, unspecified chronicity ? .righ t anterior , posterior knee pain for 2 months TECHNIQUE: ?XR KNEE 4V AP/PA BOTH+LAT/RUBI RT COMPARISON: ?None FINDINGS: Diffuse bone demineralization. ?Significant medial joint com partment narrowing and mild to moderate patellofemoral joint compartm ent narrowing with tricompartment spur formation. ?No fracture or joint ef fusion. ?Mild degenerative change in the left knee. Supporting Subjective Information Below: Past Medical History: PAST MEDICAL HISTORY Diagnosis Date - Arthropathy, unspecified, site unspecified - Asthma - Back pain - Colon polyps 2013 - Diverticulitis 2000 - Environmental allergies - GERD (gastroesophageal reflux disease) - Hyperlipidemia lifestyle controlled - Hypertension - IBS (irritable bowel syndrome) - Migraine - Obesity Past Surgical History: PAST SURGICAL HISTORY Procedure Laterality Date - COLONOSCOP W/ OR W/O BRSH SPEC 05/29/2018 Colonoscopy - COLONOSCOPY AND POLYPECTOMY 12/03/2013 tubular adenoma, hyperplastic polyp; repeat due in 5y - DEBRIDE SKIN AND SUBQ TISSU 05/15/07 Debridement infected moira cyst upper mid back - PAST SURGICAL HISTORY OF 1984 metal removed from right tibial area - PAST SURGICAL HISTORY OF DANVT - REMOVAL GALLBLADDER ~2003 Cholecystectomy laparoscopic - TOTAL ABDOM HYSTERECTOMY 1999 MAURICE/BSO-pain, no abnormal paps Family History: FAMILY HISTORY Problem Relation Age of Onset - None Mother from fall - Diabetes Father - Ischemic Heart Disease Father d. [place] - Ischemic Heart Disease Maternal Grandfather d. 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 Medications: Current Outpatient Medications: atorvastatin (LIPITOR) 40 mg tablet Take 1 tablet by mouth o nce daily. thiamine mononitrate (VITAMIN B1) 100 mg tab Take 1 tablet b y mouth once daily. Magnesium Oxide 250 mg magnesium tab Take 2 tablets by mouth once daily. fluticasone (FLONASE) 50 mcg/actuation nasal spray Use 2 Spr ays in each nostril once daily. cycloSPORINE (RESTASIS) 0.05 % ophthalmic emulsion Use 1 Joon p in both eyes twice daily. Both eyes. loratadine (CLARITIN) 10 mg tablet Take 1 tablet by mouth on ce daily. verapamil SR (CALAN SR, ISOPTIN SR) 240 mg CR tablet TAKE 1 TABLET BY MOUTH EVERYDAY AT BEDTIME benzonatate (TESSALON PERLES) 100 mg capsule Take 2 capsules by mouth three times daily as needed. fluticasone-salmeterol (ADVAIR DISKUS) 100-50 mcg/dose dsdv Inhale 1 Puff as instructed twice daily. RINSE AND GARGLE MOUTH WITH WATER AFTER EACH USE. pantoprazole DR (PROTONIX) 20 mg tablet Take 1 tablet by robert th daily before breakfast. Take on empty stomach, 1/2 hr before meal. albuterol HFA (VENTOLIN HFA) 90 mcg/actuation inhaler Inhale 2 Puffs as instructed every 6 hours as needed. EPINEPHrine (AUVI-Q) 0.3 mg/0.3 mL auto-injector Inject 0.3 mL intramuscularly as needed. ammonium lactate (LAC-HYDRIN) 12 % lotion Apply 1 applicatio n to affected area as needed for Dry Skin (arms). Nebulizer NEBULIZER FOR HOME USE. DX: J45.20 albuterol (PROVENTIL) 2.5 mg /3 mL (0.083 %) nebulizer solut ion Use 3 mL via nebulizer every 4 hours as needed for Wheezing/Shortness of Breath. Use over 5-15minutes. GLUC BARR/CHONDRO BARR A/VIT C/MN (GLUCOSAMINE 1500 COMPLEX ORAL ) Take 1 tablet by mouth once daily. Current Facility-Administered Medications: [COMPLETED] triamcinolone acetonide 40 mg injection (KENALOG 40) 40 mg INTRA-ARTICULAR ONCE Allergies: Adhesive Tape (Rosins); Bactrim Ds [Sulfamethoxazole-Trimethoprim]; Bee Sting; Darvon [Propoxyp hene Hcl]; Prednisone ROS: General (negative for fatigue, malaise, weight loss/gain) HEENT (negative for headache, earache, recent vision changes , sinus pain, sore throat) Respiratory (no recent shortness of breath, hemoptysis) CV (negative for chest tightness, palpitations) Musculoskeletal (see HPI) Psych (no depression, anxiety) REFERRING PHYSICIAN: Ms. Romain Bailey was referred to me for consultation by the following physician. This consultation n ote will be sent to the following physician by either mail or electronic medical record. SELF Alaina Erickson MD [address] [facility] [address] This note was partially generated using [employer] system, and there may be some incorrect words, spellings, and punctu ation that were not noted in checking the note before saving. Dwight Encarnacion MD PROGRESS HNO ID: [id number] Normal 08-05-2018 [place] Author: Chelsy (Rn) [facility] Service: ? [place] Author Type: Registered Nurse ([id number]) Type: Progress Notes Filed: 08/12/2018 7:54 AM Note Text: Patient presents with: Established Patient: Right knee pain and popping AMB ROOMING INTAKE FLOWSHEET DATA Risk Screening Do you have concerns about personal safety or safety in the home?: No Pain Pain Level: 7(ranges from 2-10) Pain Location: Knee-Right Description: Aching, Throbbing, Other: See comment(pulling) Duration Amount of Time: 2 Duration Units: Months Frequency: Continuous Intervention: Medication, Heat, Cold Patient c/o right knee pain and swelling for 2-3 months. Den ies injury. She states the knee does lock and give out at times. Describ ed pain as throbbing, aching, pulling, and states the knee locks and gi ves out. She is taking tylenol 1000mg as needed with some relief. She als o applies heat or ice at times. she reports some relief with heat; ice seems to make pain worse. 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 PROGRESS HNO ID: [id number] Normal 08-05-2018 [place] Author: Susan [facility] Service: ? [place] Author Type: ? (0000 0) Type: Progress Notes Filed: 08/05/2018 1:02 PM Note Text: Radiology Service Progress Note PATIENT NAME: Romain Bailey DATE OF SERVICE: August 05, 2018 TIME: 12:51 PM PATIENT IDENTITY VERIFICATION COMPLETED USING TWO (2) METHOD S: Patient confirmed name verbally and Date of . PATIENT GENDER DATA: Female. status: : No status: NO. PATIENT RELEVANT IMPLANT DATA REVIEWED: Not Applicable RADIOLOGY DEPARTMENT: General X-ray: Exam(s) Completed: Matt eller Extremity X-Ray(s): Knee, AP / Lat / Tunne / Merchant Right and Wt. Be aring: PERIPHERAL IV DATA: Not applicable SIGNED BY: Susan Kaplan Rt August 05, 2018 12:51 PM cnov on 2018-08-05 CNOV Office Visit (ORTHWS) Normal 08-06-19 [place] [facility] ROMAIN BAILEY ([id number]) 1950 [facility] Date Time Provider Department ([id number]) 08/05/18 12:45 PM DWIGHT ENCARNACION During your visit today, we recorded the following informati on about you: Chelsy Cruz RN 08/12/2018 7:54 AM Signed Patient presents with: Established Patient: Right knee pain and popping AMB ROOMING INTAKE FLOWSHEET DATA Risk Screening Do you have concerns about personal safety or safety in the home?: No Pain Pain Level: 7(ranges from 2-10) Pain Location: Knee-Right Description: Aching, Throbbing, Other: See comment(pulling) Duration Amount of Time: 2 Duration Units: Months Frequency: Continuous Intervention: Medication, Heat, Cold Patient c/o right knee pain and swelling for 2-3 months. D enies injury. She states the knee does lock and give out at times. Described pain as throbbing, aching, pulling, and states the knee locks and gives out. Sh alphonso is taking tylenol 1000mg as needed with some relief. She also applies heat or ice at times. she reports some relief with heat; ice seems to make pain worse. 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 Dwight Encarnacion MD 08/12/2018 7:54 AM Signed Dwight Encarnacion MD Department of Orthopaedics Orthopaedics [address] [address] Dept: [phone] Dept August 05, 2018 CHIEF COMPLAINT: Established Patient (Right knee pain and po pping) HPI: Ms. Romain Bailey is a 68 year old female who r eturns again with some persistent right knee pain. Pain ranges anywhere from 2-10 o ut of 10 but a baseline of 7. Aching and throbbing and a pulling sensation. It's been bothering her more last 2 or 3 months. No new injury. It w ill lock and give out at times. She's been taking 1000 mg of Tylenol wit h just minimal relief. Ice and heating as well. She has had suc cess with Visco supplementation in the past as well as intermittent improvement with cortisone inje ctions. ASSESSMENT: M25.561, G89.29 Chronic pain of right knee (primary encounte r diagnosis) M17.11 Primary osteoarthritis of right knee PLAN: We'll go with a cortisone injection today and al so get her approval for Visco supplementation as she has had improvement in the past. FOLLOW UP INSTRUCTIONS: As above Ms. Romain Bailey was advised as to contrast therapies and /or to take analgesics/anti-inflammatories as needed and all contraindic ations were reviewed. OBJECTIVE: Ms. Romain Bailey is a pleasant 68 year old in no apparent distress. Gen:There were no vitals taken for this visit. nl development, non obese, no deformities ENT: Normocephalic, normal hearing, moist mucosa CV: Pulses:DP/PT= 2+ and symmetric, capillary refill < 2 secs, no peripheral edema/varicosities Skin: no rash, bruising or lesions. Good turgor. Psych: cooperative and appropriate, alert and oriented x 3, good mood and affect. Musculoskeletal: Patient walks with antalgia, normal station. Hip motion with out pain. Knee with persistent, mild effusion. Patella tracks n ormally. There is no patellar crepitance. No pain along the medial or lateral facets. Range of motion 5?130 degrees. Positive medial, without lateral joint line pain on palpation. Ligamentous exam with stable endpoint on varus a nd valgus stress testing at 0 and 30 degrees, though she does have some mild medial space widening with valgus stressing consistent with mild ligamentous laxity. La chman's examination is negative. Posterior drawer is negative. Painf ul McMurrays, without palpable click. Extremity is warm and well perfused. Sensation is grossly intact to light touch, subjectively. The risk, benefits and alternatives of i njection and no injection therapy were discussed. The patient consented for an injection. Time out was conducted. The injection site was prepped with a Chlorhexadine swab. The right Superolateral joint was injected with a 25 gauge needle with 1 cc (40 mg) Kenalog, 5 cc Marcaine 0.5% . The injection site was then dressed with a b andaid. The patient tolerated the injection well. The patient was instructed to call the office if any adverse local effects occurred or any if any q uestions or concerns arise. Dwight Encarnacion MD IMAGING: IMPRESSION: Osteoarthrosis Fork Operator: PSCB ? Transcribe Date/Time: Aug 05 2018 ?4:26P Dictated by : TORO LARSEN MD This examination was interpreted and the report reviewed and electronically signed by: TORO LARSEN MD on Aug 05 2018 ?4:27PM ?EST Results-Findings * * *Final Report* * * DATE OF EXAM: Aug 05 2018 ?1:02PM ? WRX ? 5203 ?- ?XR KNEE 4V AP/PA BOTH+LAT/RUBI RT ?/ PROCEDURE REASON: Right knee pain, unspecified chronicity ?? ? * * * * Physician Interpretation * * * * ?PROCEDURE: ?Right knee INDICATION: ?Right knee pain, unspecified chronicity ? .righ t anterior , posterior knee pain for 2 months TECHNIQUE: ?XR KNEE 4V AP/PA BOTH+LAT/RUBI RT COMPARISON: ?None FINDINGS: Diffuse bone demineralization. ?Significant medial joint com partment narrowing and mild to moderate patellofemoral joint compartm ent narrowing with tricompartment spur formation. ?No fracture or joint ef fusion. ?Mild degenerative change in the left knee. Supporting Subjective Information Below: Past Medical History: PAST MEDICAL HISTORY Diagnosis Date - Arthropathy, unspecified, site unspecified - Asthma - Back pain - Colon polyps 2013 - Diverticulitis 2000 - Environmental allergies - GERD (gastroesophageal reflux disease) - Hyperlipidemia lifestyle controlled - Hypertension - IBS (irritable bowel syndrome) - Migraine - Obesity Past Surgical History: PAST SURGICAL HISTORY Procedure Laterality Date - COLONOSCOP W/ OR W/O BRSH SPEC 05/29/2018 Colonoscopy - COLONOSCOPY AND POLYPECTOMY 12/03/2013 tubular adenoma, hyperplastic polyp; repeat due in 5y - DEBRIDE SKIN AND SUBQ TISSU 05/15/07 Debridement infected moira cyst upper mid back - PAST SURGICAL HISTORY OF 1984 metal removed from right tibial area - PAST SURGICAL HISTORY OF DANDC - REMOVAL GALLBLADDER ~2003 Cholecystectomy laparoscopic - TOTAL ABDOM HYSTERECTOMY 1999 MAURICE/BSO-pain, no abnormal paps Family History: FAMILY HISTORY Problem Relation Age of Onset - None Mother from fall - Diabetes Father - Ischemic Heart Disease Father d. [place] - Ischemic Heart Disease Maternal Grandfather d. 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 Medications: Current Outpatient Medications: atorvastatin (LIPITOR) 40 mg tablet Take 1 tablet by mouth o nce daily. thiamine mononitrate (VITAMI N B1) 100 mg tab Take 1 tablet by mouth once daily. Magnesium Oxide 250 mg magnesium tab Take 2 tablets by mouth once daily. fluticasone (FLONASE) 50 mcg /actuation nasal spray Use 2 Sprays in each nostril once daily. cycloSPORINE (RESTASIS) 0.05 % ophthalmic emulsion Use 1 Joon p in both eyes twice daily. Both eyes. loratadine (CLARITIN) 10 mg tablet Take 1 tablet by mouth on ce daily. verapamil SR (CALAN SR, ISOPTIN SR) 240 mg CR tablet TAKE 1 TABLET BY MOUTH EVERYDAY AT BEDTIME benzonatate (TESSALON PERLES) 100 mg capsule Take 2 capsul es by mouth three times daily as needed. fluticasone-salmeterol (ADVAIR DISKUS) 100-50 mcg/dose dsdv Inhale 1 Puff as instructed twice daily. RINSE AND GARGLE MOUTH WITH WATER AF TER EACH USE. pantoprazole DR (PROTONIX) 20 mg tablet Take 1 tablet by m outh daily before breakfast. Take on empty stomach, 1/2 hr before meal. albuterol HFA (VENTOLIN HFA) 90 mcg/actuation inhaler Inhale 2 Puffs as instructed every 6 hours as needed. EPINEPHrine (AUVI-Q) 0.3 mg/0.3 mL auto- injector Inject 0.3 mL intramuscularly as needed. ammonium lactate (LAC-HYDRIN) 12 % lotio n Apply 1 application to affected area as needed for Dry Skin (arms). Nebulizer NEBULIZER FOR HOME USE. DX: J45.20 albuterol (PROVENTIL) 2.5 mg /3 mL (0.083 %) nebulizer solution Use 3 mL via nebulizer every 4 hours as needed for Wheezing/Shortne ss of Breath. Use over 5-15minutes. GLUC BARR/CHONDRO BARR A/VIT C/MN (GLUCOSAMI NE 1500 COMPLEX ORAL) Take 1 tablet by mouth once daily. Current Facility-Administered Medications: [COMPLETED] triamcinolone acetonide 40 mg injection (KENALOG 40) 40 mg INTRA-ARTICULAR ONCE Allergies: Adhesive Tape (Rosins); Bactr im Ds [Sulfamethoxazole-Trimethoprim]; Bee Sting; Darvon [Propoxyphene Hcl]; Prednisone ROS: General (negative for fatigue, malaise, weight loss/gain) HEENT (negative for headache, earache, r ecent vision changes, sinus pain, sore throat) Respiratory (no recent shortness of breath, hemoptysis) CV (negative for chest tightness, palpitations) Musculoskeletal (see HPI) Psych (no depression, anxiety) REFERRING PHYSICIAN: Ms. Makenna Bailey was referred to vt for consultation by the following physician. This consultation note will be sent to the following physician by either mail or electronic medical record. SELF Alaina Erickson MD [address] [facility] [id number] This note was partially generated using [employer] system, and there may be some incorrect words, spellings, and punctuat ion that were not noted in checking the note before saving. Dwight Encarnacion MD Referring Provider: SELF [[id number]] Allergies As of Date: 08/05/2018 Noted Allergy Reaction ADHESIVE TAPE (ROSINS) 12/05/2016 2 - Rash BACTRIM DS (SULFAMETHOXAZOLE-TRIM*12/29/2014 10 - Anaphylaxi s Comments: Difficulty breathing, fever, chills BEE STING 08/28/2012 10 - Anaphylaxis DARVON (PROPOXYPHENE HCL) 05/15/2007 PREDNISONE 03/07/2016 8 - GI Upset Date Reviewed: 08/05/2018 Reviewed by: Chelsy (Rn) Anthony - Fully Assessed Reason for Visit: Established Patient [175] Cmt: Right knee pain and popping Primary Visit Diagnosis:Chronic pain of right knee [M25.561, G89.29] Other Visit Diagnosis:Primary osteoarthritis of right knee [ M17.11] Order(s):[] triamcinolone acetonide 40 mg injec tion (KENALOG 40)Disp: Rfl: Prescriptions as of 08/05/2018 Sig: ATORVASTATIN 40 MG TABLET Take 1 tablet by mouth once d* THIAMINE MONONITRATE (VITAMIN* Take 1 tablet by mouth once d * MAGNESIUM 250 MG ( MAGNESIU* Take 2 tablets by mouth once * FLUTICASONE PROPIONATE 50 MCG* Use 2 Sprays in each nostril * CYCLOSPORINE 0.05 % EYE DROPS* Use 1 Drop in both eyes twice * LORATADINE 10 MG TABLET Take 1 tablet by mouth once d* VERAPAMIL ER (SR) 240 MG TABL* TAKE 1 TABLET BY MOUTH EVERYD * BENZONATATE 100 MG CAPSULE Take 2 capsules by mouth thre* FLUTICASONE 100 MCG-SALMETERO* Inhale 1 Puff as instructed t * PANTOPRAZOLE 20 MG TABLET,DEL* Take 1 tablet by mouth daily * ALBUTEROL SULFATE HFA 90 MCG/* Inhale 2 Puffs as instructed * EPINEPHRINE 0.3 MG/0.3 ML INJ* Inject 0.3 mL intramuscularly * AMMONIUM LACTATE 12 % LOTION Apply 1 application to affect* COMPOUNDED PRESCRIPTION NEBULIZER FOR HOME USE. DX: * ALBUTEROL SULFATE 2.5 MG/3 ML* Use 3 mL via nebulizer every * GLUCOSAMINE 1500 COMPLEX ORAL Take 1 tablet by mouth once d* Problem List As Of Date 08/05/2018 Noted Resolved Sebaceous cyst [L72.3] INVALID FOR*04/16/2012 Environmental allergies [Z91.09] Asthma [J45.909] More... Arthropathy, unspecified, site unspecified [M12* Essential hypertension [I10] More... IBS (irritable bowel syndrome) [K58.9] GERD (gastroesophageal reflux disease) [K21.9] More... Migraine [G43.909] More... Diverticulitis [K57.92] Hyperlipidemia, mixed [E78.2] More... Fracture of finger, middle or proximal phalanx,*INVALID FOR* History of colon polyps [Z86.010] Chronic pain of right knee [M25.561, G89.29] INVALID FOR* Primary osteoarthritis of right knee [M17.11] INVALID FOR* BPPV (benign paroxysmal positional vertigo) [H8*INVALID FOR* Bee sting allergy [Z91.030] INVALID FOR* Bilateral low back pain with bilateral sciatica*INVALID FOR* More... Calculus of kidney [N20.0] INVALID FOR* More... LLQ pain [R10.32] INVALID FOR* TIA (transient ischemic attack) [G45.9] INVALID FOR* Prescriptions ordered this encounter Disp Refills Start End TRIAMCINOLONE ACETONIDE 40 MG/ML TATYANA* 08/05/2018 08/05/2018 Route: [facility] Encounter Status:Closed by DWIGHT ENCARNACION MD on 08/12/18 progress on 2018-07 PROGRESS HNO ID: [id number] Normal 08-01-2018 [facility] Author: Alaina Hines ([id number]) Service: ? Author Type: Physician Type: Progress Notes Filed: 08/07/2018 4:55 PM Note Text: Block the 940 appt. Alaina Erickson MD PROGRESS HNO ID: [id number] Normal 08-01-2018 [facility] Author: Gregory Hines ([id number]) Service: ? Author Type: ? Type: Progress Notes Filed: 08/07/2018 4:55 PM Note Text: TRANSITION CARE MANAGEMENT (TCM) INITIAL CONTACT Provider Action/FYI: Patient is doing well. She is scheduled for 08/30/18 for a 6 week follow up. I extended it to 40 minutes to discuss the hospital stay. She declines any questions or concerns at this time. Initial contact with patient post discharge, spoke to christian prnice Patient identified by name and . TRANSITION CARE MANAGEMENT: Date of Outreach: 08/01/2018 Date of Discharge 07/30/2018 Some recent data might be hidden SUMMARY: -Pt discharged from [facility] on 07/30/18. -Follow up appointment on 08/30/18. -Medication review done yes. -Admitted for: TIA, R/O STROKE CONCERNS: - minor headache here and there. Goes away with tylenol and relaxing. -denies issues with speech or mobility -She feels close to where she was prior to this incident. NEW MEDICATIONS: START taking these medications ? thiamine mononitrate (VITAMIN B1) 100 mg Take 100 mg by mouth once daily. ? Qty: 30 tablet Refills: 1 ? Magnesium Oxide 500 mg Take 500 mg by mouth once daily. ? Qty: 60 tablet Refills: 1 ? ? CONTINUE these medications which have CHANGED ? atorvastatin (LIPITOR) 40 mg Take 40 mg by mouth once daily. ? Qty: 30 tablet Refills: 1 MEDS HELD/DISCONTINUED: STOP taking these medications ? SUMAtriptan (IMITREX) 50 mg Comments: Reason for Stopping: ? BRIEF HOSPITAL COURSE: HOSPITAL COURSE: Pt was admitted on 07/29/2018 to [facility] due to headache, dysarth yoan and truncal ataxia. ? She was admitted on concern for TIA/CVA. She was evaluated f or stroke including an MRI that was negative for acute process, as wel l as CTA that did not show significant blockages . She also had echo that was negative for intracardiac thrombus or shunts, with preserved EF. She was seen by neurology. At this time it is felt that her symptoms were un likely from a Cerebrovascular process, and management involves optimizing her risk factor management. With her headache, a consideration was fo r complex migraine. She was treated with acute meds for migraine, and placed on maintenance meds at discharge. She is feeling much better,, and has no n eurologic symptoms or signs at this time. ? While on the unit receiving treatment, she had changes made to her medication regimen previously in place prior to admission an d worked with OT for symptoms precipitating admission. Romain tolerated, re sponded to, and denied unwanted side effects from her medication regimen , while reporting improvement in symptoms that were present at time of admission. At time of discharge, she was motivated for treatment and co mpliance, and voiced understanding of the post-discharge plan as discussed with the outdoor emergency care technician. At time of discharge it was felt, with reasonable d egree of medical certainty, she manifests a low risk of acute decompe nsation and a mild/moderate risk on a chronic basis as evidenced by her hi story, and subjective/objective condition at that time. ? Headache improved with headache cocktail and psychosocial st ressors were assessed and coping skills discussed. Ataxia and dysarthria progressively improved and Romain voiced readiness for discharge. cnptoutreach on 201 11-01-05 CNPTOUTREACH Patient Outreach ([facility]) Normal 0 08-01-2018 [facility] GRUPOROMAIN ([id number]) 1950 [facility] Date Time Provider Department ([id number]) 08/01/18 IRENE MARX [facility]CHAPARRITA[facility] During your visit today, we recorded the following informati on about you: Gregory Arredondo 08/07/2018 4:55 PM Signed TRANSITION CARE MANAGEMENT (TCM) INITIAL CONTACT Provider Action/FYI: Patient is doing well. She is scheduled for 08/30/18 for a 6 week follow up. I extended it to 40 minutes to discuss the hospital stay. She declines any questions or concerns at this time. Initial contact with patient post discharge, spoke to christian prince Patient identified by name and . TRANSITION CARE MANAGEMENT: Date of Outreach: 08/01/2018 Date of Discharge 07/30/2018 Some recent data might be hidden SUMMARY: -Pt discharged from [facility] on 07/30/18. -Follow up appointment on 08/30/18. -Medication review done yes. -Admitted for: TIA, R/O STROKE CONCERNS: - minor headache here and there. Goes away with tylenol and relaxing. -denies issues with speech or mobility -She feels close to where she was prior to this incident. NEW MEDICATIONS: START taking these medications ? thiamine mononitrate (VITAMIN B1) 100 mg Take 100 mg by mouth once daily. ? Qty: 30 tablet Refills: 1 ? Magnesium Oxide 500 mg Take 500 mg by mouth once daily. ? Qty: 60 tablet Refills: 1 ? ? CONTINUE these medications which have CHANGED ? atorvastatin (LIPITOR) 40 mg Take 40 mg by mouth once daily. ? Qty: 30 tablet Refills: 1 MEDS HELD/DISCONTINUED: STOP taking these medications ? SUMAtriptan (IMITREX) 50 mg Comments: Reason for Stopping: ? BRIEF HOSPITAL COURSE: HOSPITAL COURSE: Pt was admitted on 07/29/2018 to [facility] due to headache, dysar thria and truncal ataxia. ? She was admitted on concern for TIA/CVA. She was evaluated for stroke including an MRI that was negative for acute process, as well as CTA that did not show significant blockages . She also had echo that was neg ative for intracardiac thrombus or shunts, with preserved EF. S he was seen by neurology. At this time it is felt that her symptoms were unlike ly from a Cerebrovascular process, and management involves optimizi ng her risk factor management. With her headache, a consideration was for complex migraine. She was treated with acute eds for migraine, and placed on maintenance meds at discharge. She is feeling mu ch better,, and has no neurologic symptoms or signs at this time. ? While on the unit receiving treatment, she had c teodoro made to her medication regimen previously in place prior to adm ission and worked with OT for symptoms precipitating admission. Romain tolerated, responded to, an d denied unwanted side effects from her medication regimen, while reporting im provement in symptoms that were present at time of ad mission. At time of discharge, she was motivated for treatment and compliance, and voiced understan ding of the post-discharge plan as discussed with the outdoor emergency care technician . At time of discharge it was felt, with reasonable degree of medical c ertainty, she manifests a low risk of acute decompensation and a mild/moderate risk on a chronic basis as evidenced by her history, and subjective/objective condition at that time. ? Headache improved with headache cocktail and psychosocial st ressors were assessed and coping skills discussed. Ataxia and dysarthria progressively improved and Romain voiced readiness for discharge. Alaina Erickson MD 08/07/2018 4:55 PM Signed Block the 940 appt. MD Dave Ruff RN 08/07/2018 4:55 PM Signed Appt. Noted for 08/30 Allergies As of Date: 08/01/2018 Noted Allergy Reaction ADHESIVE TAPE (ROSINS) 12/05/2016 2 - Rash BACTRIM DS (SULFAMETHOXAZOLE-TRIM*12/29/2014 10 - Anaphylaxi s Comments: Difficulty breathing, fever, chills BEE STING 08/28/2012 10 - Anaphylaxis DARVON (PROPOXYPHENE HCL) 05/15/2007 PREDNISONE 03/07/2016 8 - GI Upset Date Reviewed: 07/29/2018 Reviewed by: Shira (Rn) CHAPARRITA Hernandez - Fully Assessed Prescriptions as of 08/01/2018 Sig: ATORVASTATIN 40 MG TABLET Take 1 tablet by mouth once d* THIAMINE MONONITRATE (VITAMIN* Take 1 tablet by mouth once d * MAGNESIUM 250 MG ( MAGNESIU* Take 2 tablets by mouth once * FLUTICASONE PROPIONATE 50 MCG* Use 2 Sprays in each nostril * CYCLOSPORINE 0.05 % EYE DROPS* Use 1 Drop in both eyes twice * LORATADINE 10 MG TABLET Take 1 tablet by mouth once d* VERAPAMIL ER (SR) 240 MG TABL* TAKE 1 TABLET BY MOUTH EVERYD * BENZONATATE 100 MG CAPSULE Take 2 capsules by mouth thre* FLUTICASONE 100 MCG-SALMETERO* Inhale 1 Puff as instructed t * PANTOPRAZOLE 20 MG TABLET,DEL* Take 1 tablet by mouth daily * ALBUTEROL SULFATE HFA 90 MCG/* Inhale 2 Puffs as instructed * EPINEPHRINE 0.3 MG/0.3 ML INJ* Inject 0.3 mL intramuscularly * AMMONIUM LACTATE 12 % LOTION Apply 1 application to affect* COMPOUNDED PRESCRIPTION NEBULIZER FOR HOME USE. DX: * ALBUTEROL SULFATE 2.5 MG/3 ML* Use 3 mL via nebulizer every * GLUCOSAMINE 1500 COMPLEX ORAL Take 1 tablet by mouth once d* Problem List As Of Date 08/01/2018 Noted Resolved Sebaceous cyst [L72.3] INVALID FOR*04/16/2012 Environmental allergies [Z91.09] Asthma [J45.909] More... Arthropathy, unspecified, site unspecified [M12* Essential hypertension [I10] More... IBS (irritable bowel syndrome) [K58.9] GERD (gastroesophageal reflux disease) [K21.9] More... Migraine [G43.909] More... Diverticulitis [K57.92] Hyperlipidemia, mixed [E78.2] More... Fracture of finger, middle or proximal phalanx,*INVALID FOR* History of colon polyps [Z86.010] Chronic pain of right knee [M25.561, G89.29] INVALID FOR* Primary osteoarthritis of right knee [M17.11] INVALID FOR* BPPV (benign paroxysmal positional vertigo) [H8*INVALID FOR* Bee sting allergy [Z91.030] INVALID FOR* Bilateral low back pain with bilateral sciatica*INVALID FOR* More... Calculus of kidney [N20.0] INVALID FOR* More... LLQ pain [R10.32] INVALID FOR* TIA (transient ischemic attack) [G45.9] INVALID FOR* Encounter Status:Closed by DAVE LOW RN on 08/07/18 therapy nt on 07-30 THERAPY NT HNO ID: [id number] [place] 07-30-2018 [place] Author: Bharti Roland (Pt) [facility] Service: Physical Therapy ([id number]) Author Type: Physical Therapist Type: Therapy (PT/OT/Speech/Resp) Filed: 07/30/2018 11:08 AM Note Text: Physical Therapy Evaluation TIA r/o CVA SERVICE DATE: 07/30/2018 SERVICE TIME: 0501 to 1002 ROOM: [address]) Recommended Discharge Disposition: Home Anticipated Discharge Needs: Physical Assist at Home Physical Assist at Home for: Cleaning;Laundry;Shopping;Trans portation Recommended Discharge Equipment: Cane PT Recommendations to Nursing: Ambulate without device;To ba throom;In halls;Transfer to/from chair;OOB for Meals;With assist of 1 person Device: No Device PT 6 Clicks Score: 23 Precautions/Activity Restrictions: Bed/Chair Alarm;Fall Risk Precaution/Activity Restriction Comments: up with assist, ad emir w/ slurred speech, ataxia ASSESSMENT : Patient admitted to the hospital for c/o of headache, blurry vision and slurred speech. Possible stroke like symptoms. Patient's imp airments as related to Therapy include decreased strength/endurance, imp aired balance, functional mobility and self care performance. Patient has a dequate support and social structure for reasonably safe discharge h ome at current level. Patient Disposition at Start of Session: OOB in Chair;Call B ell in Reach;Chair Alarm Patient Disposition at End of Session: OOB in Chair;Call Bel l in Reach;Chair Alarm Tolerance Limited By Fatigue Physical Therapy Problem List: Decreased Activity Tolerance; Functional Mobility Impairment Patient /Caregiver Goals: Go Home Goals for Plan of Care: PLAN: Treatment Frequency (times per week): Discontinue Therapy Se rvices Reasons Therapy Services Discontinued: No skilled needs Plan of Care developed with: Patient TREATMENT INTERVENTIONS: Therapy Diagnosis: Reduced mobility-other Interventions Provided: Evaluation;Gait Training (75726) $ Evaluation-Low (55665) Billed Units: 1 unit Gait Training (90660) Treatment Minutes: 8 1 unit Skilled Intervention(s): Instruction in sit to stand techniq ue with proper hand placement and body positioning at edge of bed/chair, In struction in stand to sit technique with LE's touching chair/bed and reac cindy back for surface, Instruction in sequencing, gait pattern and Instruc tion in correction of gait deviations Total Timed Code Treatment Minutes: 8 Total Treatment Time (minutes): 23 SUBJECTIVE: Current Hospital Course: Chart reviewed; 68 year old female admit with c/o of headache, blurry vision , slurred speech and ataxia of RUE. Reason for Physical Therapy Consult : TIA vs CVA Relevant Past Medical History: diverticulosis, GERD, HLD, HT N, IBS, migraines, obesity Patient Report: Patient pleasant and cooperative with treatm ent. Reports all symptoms have resolved except for headache. 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 OBJECTIVE: Mini Cog Score: 5 (07/29/18 0735) CURRENT FUNCTIONAL STATUS: Current Functional Mobility Assist Level Additional Informat ion Rolling Supine to Sit Sit to Supine Scooting Modified Independent Sit to Stand Modified Independent Stand to Sit Modified Independent Bed to Chair Toilet/Commode Gait Stand By Assistance Gait Device: None Gait Distance (feet): 250 ft Stairs Curb Step Car Transfer Gait Deviations Right Lower Extremity: Heel strike during in itial stance decreased;Push-off during terminal stance decreased;Knee fle xion during stance increased;Foot clearance decreased;Step length decrea sed General Gait Deviations: Florina decreased;Step length decre ased Balance: Dynamic Standing;Dynamic Sitting Dynamic Sitting Balance: Modified Independent Dynamic Standing Balance: Stand By Assistance Activity Tolerance: Standing Activity Standing Activity: transfers, gait, Mod 4 Item DGI Standing Activity Tolerance (in minutes): 8 JH-HLM: 8: Walk 250 feet or more Functional Performance Test Functional Performance Test: Modified 4-Item Dynamic Gait In dex Modified Dynamic Gait Index Gait on level surface: 3 Gait with speed changes: 3 Horizontal head turns: 3 Vertical head turns: 3 Total Score: 12 Please see discipline specific clinical documentation [facility] for complete details for this therapy evaluation/treatment. SIGNATURE: Bharti Tee, PT PATIENT NAME: Romain fontenot DATE: July 30, 2018 TIME: 11:05 AM nursing prog on 201 11-02-03 Protein HNO ID: [id number] Normal 07-30-2018 [place] [facility] Author: Marii (Rn) Ramón, RN Hospital conc Service: Nursing (00 000) Author Type: Registered Nurse Type: Nursing Progress Note Filed: 07/30/2018 3:17 PM Note Text: Nursing Progress Note Patient Name: Romain Bailey Patient Location: PK Daily Note: Pt AOx3. C/o slight HENRIQUEZ. Brace on LLE. Speech sidney ar AND coherent. This note was completed by: Marii Melgar RN Protein HNO ID: [id number] Normal 07-30-2018 [facility] Author: Marii (Rn) CHAPARRITA [facility] Service: Nursing (00 000) Author Type: Registered Nurse Type: Nursing Progress Note Filed: 07/30/2018 3:15 PM Note Text: Nursing Progress Note Patient Name: Romain Bailey Patient Location: / Daily Note: Pt discharged. Discharge, follow-up AND meds due instructions given AND explained. Prescription given AND explained. This note was completed by: Marii Melgar RN cbc on 2018-07-30 Erythrocyte distribution 13.2 11.5-15.0 % Normal 07-30 [facility] width Ratio (RBC) (0 0000) Comment: Performed By: #### CBC, BMP ####[address] [phone] Hematocrit Volume Fraction 40.5 36.0-46.0 % Normal [facility]) (65251) Comment: Performed By: #### CBC, BMP ####[address] [phone] Hemoglobin mass conc 13.2 11.5-15.5 g/dL Normal 9 [facility] ([facility]) (96931) Comment: Performed By: #### CBC, BMP ####[address] [id number] [phone] MCH Entitic mass (RBC) 28.8 26.0-34.0 pG Normal 019 [facility] (76553) Comment: Performed By: #### CBC, BMP ####[address] [id number] [phone] MCHC mass conc (RBC) 32.6 30.5-36.0 g/dL Normal 9 [facility] (05056) Comment: Performed By: #### CBC, BMP ####[address] [id number] [phone] MCV Entitic volume (RBC) 88.4 80.0-100.0 fL Normal [facility] (90263) Comment: Performed By: #### CBC, BMP ####[place] [id number] [phone] Platelet mean volume 10.0 9.0-12.7 fL Normal [address] [place] [address] (51218) Entitic volume (Bld) Comment: Performed By: #### CBC, BMP ####[address] [id number] [phone] Platelets #/vol (Bld) 211 150-400 k/uL Normal 07-31-[address] [place] [address] (43875) Comment: Performed By: #### CBC, BMP ####[address] [id number] [phone] RBC #/vol (Bld) 4.58 3.90-5.20 m/uL Normal 07-30-2018 [facility] (02656) Comment: Performed By: #### CBC, BMP ####[address] [id number] [phone] WBC #/vol (Bld) 5.52 3.70-11.00 k/uL Normal 07-30-2018 [facility] (13189) Comment: Performed By: #### CBC, BMP ####[address] [id number] [phone] case managem on 201 11-02-03 CASE MANAGEM HNO ID: [id number] Normal 07-31-[address] [place] [address] Author: Mary Ann Corona) CHAPARRITA Cox ([id number]) Service: Care Management Author Type: Registered Nurse Type: Care Mgt Progress Note Filed: 07/30/2018 2:06 PM Note Text: CARE MANAGEMENT DISCHARGE NOTE SERVICE DATE: 07/30/2018 SERVICE TIME: 2:05 PM LOS: 0 days Admission Date: 07/29/2018 DISCHARGE ARRANGEMENT (list agency and phone number) Home Care - PT and OT Provider: Abran Phone: on file CAREGIVER ASSESSMENT: Caregiver is ready, willing and able to meet the patient's n eeds as recommended by the inter-professional team? No Caregiver Nee ded Patient's transition needs and plan for meeting these needs: yes Does the patient have an acute stroke diagnosis, or has the patient had a stroke during this admission? No HANDOFF COMMUNICATION: PCP per [place] TRANSPORTATION ARRANGEMENTS: Car family Discharge Information Row Name Admission (Current) from 07/29/2018 in [facility] Medically cleared for discharge. Confirmed SOC with [facility] within 24-48 hours of discharge. Pt amenable to discharge plan. Fam tiffanie to transport. SIGNATURE: Mary Ann Cox RN PATIENT NAME: Romain Bailey DATE: July 30, 2018 TIME: 2:05 PM PAGER/CONTACT #: [phone] basic metabolic panl on 2018-07-30 Anion gap molar conc 11 9-18 mmol/L Normal 9 [facility] (08496) Comment: Performed By: #### CBC, BMP ####[facility] [place], [place] [id number] [phone] Calcium mass conc 9.1 8.5-10.5 mg/dL Normal 07-30-2018 [facility] (50711) Comment: Performed By: #### CBC, BMP ####[address] [id number] [phone] Chloride molar conc 104 98-110 mmol/L Normal 07-30-2018 [facility] (46318) Comment: Performed By: #### CBC, BMP ####[address] [phone] [phone] CO2 molar conc 25 23-32 mmol/L Normal 07-30-2018 [facility] (32462) Comment: Performed By: #### CBC, BMP ####[place] [id number] [phone] Creatinine mass conc 0.73 0.70-1.40 mg/dL Normal 9 [facility] (71703) Comment: Performed By: #### CBC, BMP ####[place] [id number] [phone] eGFR- Amer. >60 >60 Normal 07-30-2018 [facility] (45869) Comment: Performed By: #### CBC, BMP ####[place] [id number] [phone] GFR/1.73 sq M >60 >60 mL/min/{1.73_m2} Normal [address] [place] [address] predicted among (000 00) non-blacks MDRD vol rate/area (S/P/Bld) Comment: Performed By: #### CBC, BMP ####[address] [id number] [phone] Glucose mass conc 91 65-100 mg/dL Normal 07-30-2018 [facility] (21507) Comment: Performed By: #### CBC, BMP ####[address] [id number] [phone] Potassium molar conc 4.4 3.5-5.0 mmol/L Normal [address] [place] [address] (59760) Comment: Result Comment: Reviewed Performed By: #### CBC, BMP ####[address] [id number] [phone] Sodium molar conc 140 132-148 mmol/L Normal 07-30-2018 [facility] (12691) Comment: Performed By: #### CBC, BMP ####[address] [id number] [phone] Urea nitrogen mass conc 20 8-25 mg/dL Normal 2018 [facility] (31230) Comment: Performed By: #### CBC, BMP ####[facility] [place], [place] [id number] [phone] troponin t on 07-29 Troponin T.cardiac <0.010 0.000-0.029 ug/L Normal 9 [facility] mass conc (27597) Comment: Performed By: #### JONNY ####[facility] [address] [place], [place] [phone] therapy nt on 07-29 THERAPY HNO ID: [id number] Normal 07-29-2018 [place] Author: Lavern Fontenot ([place]) [facility] Service: Occupational Therapy ([id number]) Author Type: Occupational Therapist Type: Therapy (PT/OT/Speech/Resp) Filed: 07/29/2018 9:33 AM Note Text: Occupational Therapy Evaluation SERVICE DATE: 07/29/2018 SERVICE TIME: 734 to 814 ROOM: [place] [address] Recommended Discharge Disposition: Home OT Anticipated Discharge Needs: Physical Assist at Home Physical Assist at Home for: Transportation;Shopping;Cleaning;Laundry;Meals OT Recommendations to Nursing: To Bathroom for ADL?s /and or Toileting;OOB for meals;Transfer to Chair;With assist of 1 person Equipment: Wheeled Walker OT 6 Clicks Score: 24 Precautions/Activity Restrictions: Bed/Chair Alarm;Fall Risk ASSESSMENT: 68 yo patient admitted to the hospital for RUE ataxia, stutt ering, r/o CVA. Patient's impairments as related to Occupational Therap y include decreased strength/endurance, impaired balance, functional m obility and self care performance. Patient may benefit from Home/Outpati ent Occupational Therapy in order to continue to progress functi onal mobility and ADL skills. Patient has adequate support and social stru cture for reasonably safe discharge home at current level. Patient Disposition at Start of Session: Supine in Bed;Call Adkins in Reach;Bed Alarm Patient Disposition at End of Session: OOB in Chair;Call Bel l in Reach;Chair Alarm Tolerated Full Session Occupational Therapy Problem List: Cognitive Deficit;Safety Deficits;Impaired Self Care;Decreased Activity Tolerance;Fun ctional Mobility Impairment;Balance Impaired;Impaired Fine Motor Ski lls Patient /Caregiver Goals: Go Home Goals for Plan of Care: Upper Body Dressing with: Modified Independent Lower Body Bathing with: Modified Independent Lower Body Dressing with: Modified Independent Toilet Hygiene with: Modified Independent Chair Transfer with: Modified Independent Toilet Transfer with: Modified Independent Tolerate (minutes of functional activity): 30 Functional Activity with: Modified Independent Rehab Potential: Excellent PLAN: Treatment Frequency (times per week): 2 Current admission Treatment Interventions: Education;Self Care / Home Management;Strengthening;Functional Mobility Training;Balanc e Training;Neuromuscular Re-education;Pain Management Plan of Care developed with: Patient TREATMENT INTERVENTIONS: Therapy Diagnosis: Reduced mobility-other;Decreased activiti es of daily living (ADL);Muscle Weakness (generalized);Unsteadiness on f eet;Lack of coordination-other Interventions Provided: Evaluation;Therapeutic Activity (970 30);Self Custodial Management (86115) $ Evaluation-Low (14706) Billed Units: 1 unit Therapeutic Activity (94933) Treatment Minutes: 8 1 unit Skilled Intervention(s): Instructed patient in supine to sit pushing with upper extremities to sit up Instruction in sit to stand technique with proper hand place ment and body positioning at edge of bed/chair Instruction in stand to sit technique with lower extremities touching chair/bed and reaching back for surface OT edu pt on allowing body to become acclimated between posi tion changes (supine to sit, sit to stand) in order to monitor for dizzin ess and reduce risk of falls. Pt verbalizes and demonstrates understanding. Transfer training completed in order to increase independenc e with functional transfers (e.g., transfers on and off commode) an d facilitate increased independence with ADL tasks. Self Custodial Management (28596) Treatment Minutes: 15 1 unit Skilled Intervention(s): Provided cuing for hand/oral hygien e. Pt completes in stance at sink. Cues for sequencing in hygiene tasks. Pt completes toileting at st toilet. Provided instruction, cuing and facilitation for lower body dressing. Dons shoes and brace while seated EOB with increased time and eff ort. Edu pt on s/s of stroke (BE FAST) and importance of seeking immediate medical attention/calling 911. Pt verbalizes understanding. Total Timed Code Treatment Minutes: 23 Total Treatment Time (minutes): 40 SUBJECTIVE: Current Hospital Course: Chart reviewed; see above Reason for Occupational Therapy Consult: r/o CVA, R side wea kness, stuttering Relevant Past Medical History: back pain, HLD, HTN, obesity, diverticulitis Patient Report: Pleasant and agreeable to session. Reports o ther stressors in her life. States she can have increased assist at home. Home Environment Patient Lives With: Self/Alone Assistance Available: maritime engineer(family in the area) Entry To Home: Stairs;With Rail Number Of Stairs Into Home: 4 Number Of Stairs To Bed/Bath: flight Stairs to Bed/Bath with: Unilateral Rail Tub/Shower Type: tub, no shower. Pt sits at the side and spo nge bathes Laundry: basement Equipment Owned: Orthosis Prior Functional Level: Within Functional Limits Prior Functional Level Comments: Pt reports being ind with A DLs, IADLs, amb without AD, drives, works at a [employer] place. OBJECTIVE: Cognition/Communication Deficits Communication Deficits: (pt reports intermittent stuttering) Responsiveness: Alert Follows Commands: 3-step Commands Cognitive Clinical Tests and Screens: Mini Cog Clock Draw Test: 2-Normal Word Recall: 3-recalled words Mini Cog Score: 5 CURRENT FUNCTIONAL STATUS: Current Activities of Daily Living Assist Level Feeding Modified Independent Grooming Modified Independent Bathing Upper Body Modified Independent Bathing Lower Body Stand By Assistance Dressing Upper Body Stand By Assistance Dressing Lower Body Stand By Assistance Toileting Stand By Assistance Instrumental Activities of Daily Living Assist Level Meal/Beverage Prep Light Cleaning Laundry Medication Management with Strategies Functional Mobility Assist Level Rolling Supine to Sit Stand By Assistance Sit to Supine Scooting Sit to Stand Stand By Assistance Stand to Sit Stand By Assistance Bed to Chair Toilet/Commode Stand By Assistance Functional Mobility Stand By Assistance Wheeled Walker Please see discipline specific clinical documentation [facility] for complete details for this therapy evaluation/treatment. SIGNATURE: AARON Castro PATIENT NAME: Romain Bailey DATE: July 29, 2018 TIME: 9:29 AM protime on Prothrombin time (PT) Coag 1.0 0.9-1.3 s Normal [facility] (01334) time (PPP) Comment: Result Comment: Vitamin K An tagonist (VKA) Therapeutic Range: INR 2 to 3 (Target INR of 2.5) Note: For patients treated w ith VKA drugs, such as warfarin, the [place] [employer] 2012 Guideline recommends a therapeutic INR range of 2 to 3 (target INR of 2.5). This recommendation includes high-risk patients with antiphospholipid syndrome with previous arterial or venous thromboembolism, current-generation mechanical or bioprosthetic aortic heart valve replacement. Note: Patients with auto headlight mechanic al aortic valve replacement and additional risk factors for thromboembolic events (atrial fibrillation, previous thromboembolism, LV dysfunction, hypercoagulable conditions) or an older generation mecha nical AVR (i.e., ball in-Cage) or any mechanical MVR should have a INR therapeutic range of 2.5 to 3.5 (target INR of 3). Guillaume WAGNER, et al. Chest 2012 , 141:7S-47S Russel RA et al. [facility] 20 , 70: 252-289 Performed By: #### CBC, PT, PTT, BMP ####[facility] Oz[address]516 0 Prothrombin time (PT) Coag 10.3 9.7-13.0 sec Normal [facility] (98001) time (PPP) Comment: Performed By: #### CBC, PT, PTT, BMP ####[facility] [address] [place] [address] 0 progress on 2018-07 PROGRESS HNO ID: [id number] Normal 07-29-2018 [place] Author: Yesy Delong [facility] Service: ? [place] Author Type: Physician ([id number]) Type: Progress Notes Filed: 07/29/2018 12:42 AM Note Text: TELESTROKE DOCUMENTATION Name: Romain Bailey : 1950 Site: [place] DR. 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 At 1pm today she started having headache. While at work she was having interm ittent HENRIQUEZ, difficulty speaking, and imbalance. The latter got worse at around 10pm prompting presentation to the ED. On 07/02 she presented to [facility] ED vertigo-like symptoms with associated headache, difficulty b alancing, and nausea. Workup reportedly with CT/CTA, MRI brain did not eduard w acute stroke significant vessel stenosis or occlusion, but incidental fid ing of R ICA 2mm aneurysm. Dr. Radha Hunt' exam significant for pos t-pointing in the UE and truncal ataxia. Pertinent History ? Stroke Risk Factors Hypertension;Headache;Hypercholesterolemia ? Current Anticoagulant Not Applicable Vitals BP: 146/82 HR: 65 NIHSS Telestroke Type: Telephone Only Site Reported NIHSS: 1 Neurologist Performed Total Score: N/A Labs Glucose: [address] Imaging reviewed, NO acute infarct/hemorrhage seen CTA Imaging reviewed, NO large vessel occlusion or severe st enosis seen (Above is my review, awaiting Final Read from Neuro Rads) Summary Stroke diagnosis uncertain - the risks of IV tPA outweigh th e benefits of treatment Uncertain diagnosis of acute ischemic stroke. Possible migra ine, she had similar episode 07/02/18. Potential Candidate for Endovascular Therapy: No - Negative for evidence of large vessel occlusion Disposition The patient will be transferred to another institution for f urther evaluation and management Other Facility: [place] Thank you for contacting the [facility] Telestroke Net work. I appreciate the opportunity for allowing me to participate in Romain Bailey's care. Please feel free to contact me and/or the [facility] T elestroke Network at any time if you have any further questions or nee d additional assistance. ? Phone encounters: A total of 21-30min was spent reviewing pertinent diagnostic data and discussing patient care with the referri physician. Yesy Delong MD July 29, 2018 12:38 AM plan of care on 201 11-01-02 PLAN OF CARE HNO ID: [id number] Normal 07-30-19 [facility] Author: Ryan Lozano) Gabriella ([id number]) Service: Psychiatry Author Type: Physician Type: Plan of Care Filed: 07/31/2018 5:56 PM Note Text: General Internal Medicine Plan of Care Patient: Romain Bailey HANDP reviewed. Briefly, Ms. Bailey is a 68yo female presenting from [place] ED for concern of TIA vs CVA. Symptoms precipitating admissi on included severe 8/10 sharp and throbbing headache, bilateral and supr aorbital which began and had progressively worsened until admissio n. Improved with APAP, associated with phonophobia and photophobia and n ausea. 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 Notably, she had recent presen tation with similar precipitating symptoms in early June at [place] ED wi th imaging not indicative of CVA and concern for complex migraine vs TIA. She endorsed psychosocial stressors and recent anxiety regar ding her significant other's planned visit from [place] which has been postponed since his daughter underwent lithotripsy and now requires re nal transplant. Additionally, she has recent work stress due to increased volume. 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 Upon exam today, interval improvement in headache severity, ataxia and dysarthria. No new complaints. Objective: PE notable for mild RUE ataxia on pphpya-bg-scye testing, mi ld RUE pronator drift. CN II-XII grossly intact, sensation grossly intact bilateral upper and lower extremities. Assessment and Plan: TIA vs complex migraine Appreciate neurology recommendations MRI brain negative for acute process Ordered headache cocktail (toradol, APAP, Mg, compazine, kate adryl) Echo ordered ASA 325 received this AM, will switch to 81 mg qd Discontinue Imitrex for now Continue statin Continue tele Will hold Verapamil for now, likely resume tomorrow AM Amaris Toney DO 2:36 PM, July 29, 2018 PGY-1, Psychiatry [id number] GIM Attending Seen and admitted earlier today Management as outlined, as discussed with resident. Ryan Quiroz MD; MPH nursing prog on 201 11-01-02 Protein HNO ID: [id number] Normal 07-29-2018 [facility] Author: Naheed (Rn) CHAPARRITA Lu [facility] conc Service: ? ([id number]) Author Type: Registered Nurse Type: Nursing Progress Note Filed: 07/29/2018 9:57 AM Note Text: Nursing Progress Note Patient Name: Romain Bailey Patient Location: Daily Note:Patient is AANDox3, vss, perrla, lungs siddharth r on room air, up with 1 assist, pt reports severe headache, given prn medications, NIH:1, q2 neuro checks, awaiting mri, passed bedside swallow evaluatio n, speech clear, bundle branch block on telemetry, call light in reach , safety maintained, will ctm This note was completed by: Naheed Lu RN Protein HNO ID: [id number] Normal 07-29-2018 [facility] Author: Sujatha (Rn) CHAPARRITA Reed [facility] conc Service: ? ([id number]) Author Type: Registered Nurse Type: Nursing Progress Note Filed: 07/29/2018 4:30 AM Note Text: Nursing Progress Note Patient Name: Romain Bailey [facility] Transfer Note: Patient transferred into room/unit PKTA-5 in stable conditio n. Actions taken: pt oriented to room and call light. NIH 2. Some dysar thria and R ataxia noted. C/o frontal headache. Safety maintained, call light in reach, will continue to monitor. This note was completed by: Sujatha Reed RN mri brain wo ivcon on 2018-07-29 MRI BRAIN WO * * *Final Report* * * Normal [facility] IVCON DATE OF EXAM: Jul 29 2018 12:07PM ([id number]) [facility] 0294 - MRI BRAIN WO IVCON / PROCEDURE REASON: TIA, initial exam * * * * Physician Interpretation * * * * EXAMINATION: MRI BRAIN WO IVCON CLINICAL HISTORY: TIA TECHNIQUE: Routine noncontrast MRI protocol including diffus ion images. MQ: [id number] COMPARISON: None. RESULT: Acute Change: There is no evidence of restricted diffusion t o suggest an acute infarct. Hemorrhage: No evidence of prior parenchymal hemorrhage on t he gradient echo images. Mass Lesion/ Mass Effect: No evidence of an intracranial mas s or extra-axial fluid collection. No significant mass effect. Chronic Change: Scattered patchy and confluent areas of incr eased T2 and FLAIR signal are present in the supratentorial white matter which is nonspecific but likely represents chronic microvascular isch emia. Parenchyma: No significant volume loss for age. The brain pa renchyma is otherwise within normal limits of signal intensity and mo rphology. Ventricles: Normal caliber and morphology. Skull Base: Hypothalamic and pituitary region are grossly no rmal. Craniocervical junction is normal. No significant marrow rep lacement process. Vasculature: Major intracranial arterial structures, and dur al venous sinuses show typical flow void, suggesting patency by spin e cho criteria. Other: Mucosal thickening is noted involving the left maxill ta sinus. The orbits and extracranial soft tissues are unremarkable. IMPRESSION: No acute intracranial process. There is moderate hyperintensity on T2-weighted and FLAIR im ages involving the supratentorial white matter which is nonspecif ic however likely represents chronic microvascular ischemia. Fork Operator: [facility] Transcribe Date/Time: Jul 29 2018 12:10P Dictated by : STEVEN CLEMONS MD This examination was interpreted and the report reviewed and electronically signed by: STEVEN CLEMONS MD on Jul 29 2018 12:12PM EST [id number] lipid panel, basic on 2018-07-29 Cholesterol in HDL mass conc 45 >39 mg/dL Normal 0 07-29-2018 [facility] ([id number]) Comment: Result Comment: 40-59 mg/dL, Acceptable >59 mg/dL, High: Negative ri sk factor for coronary heart disease <40 mg/dL, Low: Positive ris k factor for coronary heart disease Performed By: #### CBC, BMP #### [facility] [address] [place] [address] #### HBA1C, LIPB #### [facility] [address] [place] [id number] Cholesterol in LDL mass conc 95 <100 mg/dL Normal 0 07-29-2018 [facility] (95154) Comment: Result Comment: <100 mg/dL, Optimal 100-129 mg/dL, Near optimal/ above optimal 130-159 mg/dL, Borderline hi gh 160-189 mg/dL, High >189 mg/dL, Very high Secondary prevention optimal LDL Cholesterol levels are recommended to be < 70 mg/dL Performed By: #### CBC, BMP #### [place] [phone] #### HBA1C, LIPB #### [facility] [address] [place] [phone] Cholesterol mass conc 150 <200 mg/dL Normal 07-30-19 [facility] (55735) Comment: Result Comment: <200 mg/dL, Desirable 200-239 mg/dL, Borderline hi gh >239 mg/dL, High Performed By: #### CBC, BMP #### [phone] #### HBA1C, LIPB #### [facility] [address] [place] [phone] LDL:HDL Ratio 2.11 <2.54 Normal 07-29-2018 [facility] (28952) Comment: Result Comment: Reference: 1. National Cholesterol Educ ation Program ATP III Guideline At-A-Glance Quick Desk Reference: National Heart, Lung, and Blood [place]. National Institutes of Health. 2001: NIH Publication No. 01-3305. 2. An International Atherosc lerosis Society position paper: global recommendations for the management of dyslipidemia: executive summary, Atherosclerosis. 2014: 232(2):410-413. Performed By: #### CBC, BMP #### [place] [phone] #### HBA1C, LIPB #### [facility] [address] [place] [phone] Non HDL Cholesterol 105 <130 mg/dL Normal 07-29-2018 [facility] (84827) Comment: Result Comment: <130 mg/dL, Optimal 130-159 mg/dL, Near optimal/ above optimal 160-189 mg/dL, Borderline hi gh 190-219 mg/dL, High >219 mg/dL, Very high Secondary prevention optimal non HDL Cholesterol levels are recommended to be < 100 mg/dL Performed By: #### CBC, BMP #### [place] [phone] #### HBA1C, LIPB #### [facility] [phone] TC:HDL Ratio 3.33 <5.10 Normal 07-29-2018 [facility] (33165) Comment: Performed By: #### CBC, BMP #### [place] [phone] #### HBA1C, LIPB #### [facility] [address] [place] [phone] Triglyceride mass conc 52 <150 mg/dL Normal [address] [place] [address] (18074) Comment: Result Comment: <150 mg/dL, Normal 150-199 mg/dL, Borderline hi gh 200-499 mg/dL, High >499 mg/dL, Very high Performed By: #### CBC, BMP #### [place] [phone] #### HBA1C, LIPB #### [facility] [address] [place] [phone] VLDL Cholesterol 10 <30 mg/dL Normal 07-29-2018 [facility] (94851) Comment: Performed By: #### CBC, BMP #### [place] [phone] #### HBA1C, LIPB #### [facility] [address] [place] [phone] history physical on 2018-07-29 HISTORY HNO ID: [id number] Normal 07-29-2018 [place] PHYSICAL Author: Reilly farrell Service: Hospital Medicine ([id number]) Author Type: Physician Type: HANDP Filed: 07/29/2018 5:39 AM Note Text: DEPARTMENT OF HOSPITAL MEDICINE HISTORY AND PHYSICAL EXAM SERVICE DATE: 07/29/2018 SERVICE TIME: 4:38 AM Primary Care Physician: Alaina Erickson MD Subjective CHIEF COMPLAINT: BLURRY VISION, DYSARTHRIA AND TRUNCAL ATAXI A HPI: This is a 68 year old female who presents with PMH sign ificant for mild persistent asthma (on Flonase, albuterol as needed and Advair Diskus), HTN (on verapamil), HLD (on Lipitor 20 mg), migrain e (on Imitrex) and IBS who presented to the hospital from [place] [facility] with c /o blurry vision, stuttering of speech and wobbly gait that started ar ound 1 pm yesterday. according to the patient she was in her usual state of healt h until yesterday morning when she started having excruciating 8/10 severity sharp pain encircling both eyes, alleviated with tylenol, aggravat ed with light and associated with blurry vision. This headache was differe nt from her usual headaches which are mostly on the posterior side of th e brain. Around 1 pm she started noticing some stuttering of the spee ch as well which was noticed by the people around her as well. This was accompanied with some truncal ataxia as well as she swayed towards her r ight side. Her co worker accompanied her to the car and she drove home. Her relatives noticed her dysarthria to be getting worse and finally decid ed to come to the ED. Denies any swallowing problems, facial droop, loss o f sensation, numbness/tingling, loss of motor strength and loss of vision . No family or personal history of stroke. Never smoked, drank consistently excessive amounts of alcohol or did any recreational drug abuse. She r eports that her symptoms have already been improving except for dysarthr ia. ED Course: Upon arrival to the [place] ED her vitals were: BP 160/72 Pulse 66 Temp (Src) 98.1 (Oral) Resp 18 Ht 5' 6 (1.68m) Wt 174 lb (78.9kg) SpO2 95% BMI 28.10 kg/(m2). O2 Therapy: Room Air CBC and CMP were unremarkable. Telestroke was taken on board and neuroimaging with CT kate and head and neck was done, but all the imaging turned out to be negative . She was out of TPA window anyway and was found to have a 2 mm ICA aneury sm on MRI 3 weeks back which was done due to severe headache. Subsequent ly she was transferred to [place] for further monitoring. PAST MEDICAL HISTORY Diagnosis Date - Arthropathy, unspecified, site unspecified - Asthma - Back pain - Colon polyps 2013 - Diverticulitis 2000 - Environmental allergies - GERD (gastroesophageal reflux disease) - Hyperlipidemia lifestyle controlled - Hypertension - IBS (irritable bowel syndrome) - Migraine - Obesity PAST SURGICAL HISTORY Procedure Laterality Date - COLONOSCOP W/ OR W/O BRSH SPEC 05/29/2018 Colonoscopy - COLONOSCOPY AND POLYPECTOMY 12/03/2013 tubular adenoma, hyperplastic polyp; repeat due in 5y - DEBRIDE SKIN AND SUBQ TISSU 05/15/07 Debridement infected moira cyst upper mid back - PAST SURGICAL HISTORY OF 1984 metal removed from right tibial area - PAST SURGICAL HISTORY OF DANDC - REMOVAL GALLBLADDER ~2003 Cholecystectomy laparoscopic - TOTAL ABDOM HYSTERECTOMY 1999 MAURICE/BSO-pain, no abnormal paps FAMILY HISTORY Problem Relation Age of Onset - None Mother from fall - Diabetes Father - Ischemic Heart Disease Father d. [place] - Ischemic Heart Disease Maternal Grandfather d. [place] while holding her at 4mo - Blindness Brother - Heart Attack Brother Social History Tobacco Use - Smoking status: Never Smoker - Smokeless tobacco: Never Used Substance Use Topics - Alcohol use: No - Drug use: No MEDICATIONS: Reviewed Medications Prior to Admission: atorvastatin (LIPITOR) 20 mg tablet Take 1 tablet by mouth o nce daily. Disp: 90 tablet Rfl: 07/28/2018 at Unknown time SUMAtriptan (IMITREX) 50 mg tablet Take 1 tablet by mouth as needed (at onset of severe headache). May repeat in 2 hours if necessar y. Disp: 6 tablet Rfl: 07/28/2018 at Unknown time fluticasone (FLONASE) 50 mcg/actuation nasal spray Use 2 Spr ays in each nostril once daily. Disp: 1 Bottle Rfl: 07/28/2018 at Unkno wn time cycloSPORINE (RESTASIS) 0.05 % ophthalmic emulsion Use 1 Joon p in both eyes twice daily. Both eyes. Disp: Rfl: 07/28/2018 at Unknown time loratadine (CLARITIN) 10 mg tablet Take 1 tablet by mouth on ce daily. Disp: 30 tablet Rfl: 07/28/2018 at Unknown time verapamil SR (CALAN SR, ISOPTIN SR) 240 mg CR tablet TAKE 1 TABLET BY MOUTH EVERYDAY AT BEDTIME Disp: 30 tablet Rfl: 07/28/2018 at Unknown time benzonatate (TESSALON PERLES) 100 mg capsule Take 2 capsules by mouth three times daily as needed. Disp: 30 capsule Rfl: 0 9 at Unknown time fluticasone-salmeterol (ADVAIR DISKUS) 100-50 mcg/dose dsdv Inhale 1 Puff as instructed twice daily. RINSE AND GARGLE MOUTH WITH WATER AFTER EACH USE. Disp: 3 Inhaler Rfl: 4 07/28/2018 at Unknown time pantoprazole DR (PROTONIX) 20 mg tablet Take 1 tablet by robert th daily before breakfast. Take on empty stomach, 1/2 hr before meal. Disp: 90 tablet Rfl: 3 07/28/2018 at Unknown time albuterol HFA (VENTOLIN HFA) 90 mcg/actuation inhaler Inhale 2 Puffs as instructed every 6 hours as needed. Disp: 1 Inhaler Rfl: 5 at Unknown time EPINEPHrine (AUVI-Q) 0.3 mg/0.3 mL auto-injector Inject 0.3 mL intramuscularly as needed. Disp: 2 Each Rfl: 5 07/28/2018 at U nknown time ammonium lactate (LAC-HYDRIN) 12 % lotion Apply 1 applicatio n to affected area as needed for Dry Skin (arms). Disp: 120 g Rfl: 2 019 at Unknown time Nebulizer NEBULIZER FOR HOME USE. DX: J45.20 Disp: 1 Device Rfl: 0 07/28/2018 at Unknown time albuterol (PROVENTIL) 2.5 mg /3 mL (0.083 %) nebulizer solut ion Use 3 mL via nebulizer every 4 hours as needed for Wheezing/Shortness of Breath. Use over 5-15minutes. Disp: 25 Vial Rfl: 1 07/28/2018 at Unkno wn time GLUC BARR/CHONDRO BARR A/VIT C/MN (GLUCOSAMINE 1500 COMPLEX ORAL ) Take 1 tablet by mouth once daily. Disp: Rfl: 07/28/2018 at Unknown t lorie ALLERGIES Allergen Reactions - Adhesive Tape (Marilou* Rash - Bactrim Ds [Sulfame* Anaphylaxis Difficulty breathing, fever, chills - Bee Sting Anaphylaxis - Darvon [Propoxyphen* - Prednisone GI Upset REVIEW OF SYSTEM: GENERAL: No weight loss, malaise or fevers HEENT: Negative for frequent or significant headaches, No ch anges in hearing or vision, no nose bleeds or other nasal problems NECK: Negative for lumps, goiter, pain and significant neck swelling RESPIRATORY: Negative for cough, hemoptysis, wheezing, COPD, dyspnea or shortness of breath CARDIOVASCULAR: Negative for chest pain, leg swelling, hyper tension, CHF or palpitations GI: No nausea, vomiting, or diarrhea NEURO: Positive for headache, dysarthria, truncal ataxia and blurry vision. Objective PHYSICAL EXAM: BP 155/71 Pulse 62 Temp (Src) 97.5 (Oral) Resp 16 Sp O2 97% O2 Therapy: Room Air Physical Exam Performed: GENERAL: Alert, no distress, cooperative LUNGS: Lungs clear to auscultation, Good diaphragmatic excur asuncion CARDIAC: Normal S1 and S2; no rubs, murmurs, or gallops ABDOMEN: Abdomen soft, non-tender, BS normal, No masses or o rganomegaly NEURO: Unable to perform gait assessment since patient feels right now she wont be able to do it. Sensation grossly intact, Cranial ner ves II-XII intact NIHSS: 1(a). Mental Status - LOC 0 = Alert and Attentive 1(b). LOC Questions 0 = Correct age and month 1(c). LOC-Commands 0 = Both 2. Gaze 0 = Normal 3. Visual Rai 0 = Full 4. Facial Weakness 0 = Normal 5(a). Left Arm 0 = No drift 5(b). Right Arm 0 = No drift 6(a). Left Leg 0 = No drift 6(b). Right Leg 0 = No drift 7. Ataxia 0 = Absent 8. Sensory 0 = Normal 9. Aphasia 0 = None 10. Dysarthria 1 = Mild to Moderate 11. Neglect 0 = None NIHSS Total (0-42): 1 Lines, Drains, and Airways Line Peripheral 07/28/18 Left Antecubital 20 Gauge 1 day Peripheral 07/29/18 0426 Admission to Hospital Left Antecubi kerrie 20 Gauge less than 1 day DATA: Diagnostic tests reviewed for today's visit: Most recent labs and imaging results. 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 Current NIHSS score of 1 for mild dysarthria. Neuroimaging till now negative. MRI brain w/o contrast. High intensity statin with Lipitor 40 mg. Aspirin 325 mg started. Bedside swallow passed so patient started on heart healthy d iet. ECHO ordered for valvular abnormalities. On telemetry. Neurology on board. Tylenol for severe headaches and Imitrex for breakthrough he adaches. Cardiovascular: Verapamil held for now to allow permissive hypertension. Terri iting results of MRI after which verapamil can be resumed. High intensity statin to be continued. Respiratory: Mild persistent Asthma: <2 per month day time and night time awakenings with very in frequent usage of albuterol and no limitation in daily activities. Under control with Advair Diskus for maintenance and rescue inhalers with albuterol. Home dose inhalers to be continued. Gastrointestinal: Heart healthy diet ordered. Endocrinology: HbA1c last done was 5.5 in 2018. HbA1c and lipid panel ordered. Resolved Problems: * No resolved hospital problems. * Medication and Non-Pharmacologic VTE Prophylaxis/Anticoagula nts Anticoagulant AND Antiplatelet Medications (From admission, onward) Start Dose Route Frequency Ordered Stop 07/29/18 0430 heparin 5,000 Units injection (Medical At Risk ) 5,000 Units SUBCUTANEOUS EVERY 12 HOURS 07/29/18 0406 -- 07/29/18 0415 vte non-pharmacologic prophylaxis - none indic ated (de,oh) VTE Prophylaxis: VTE prophylaxis appropriate Disposition: to be decided. Plan of care discussed with: Provider, RN, Patient SIGNATURE: Bairon Zapien MD PATIENT NAME: Romain Bailey DATE: July 29, 2018 TIME: 4:38 AM PAGER/CONTACT #: [id number] etx [phone] I have seen and evaluated the patient and discussed the case with the resident physician. I agree with the assessment and plan as documented in the resident?s note. 68 years old female with h/o HTN, HLD, asthma, GERD, migrain e presented to [place] ED with complain of difficulty finding words, headach e imbalance and blurry vision started around 1PM yesterday, which worsen around 10PM. Patient had similar presentation on 07/02 to [place] ED, wor k up did not reveal any strok but noted to have incidental finding of ICA 2mm aneurysm. Telestroke team notified. NIHHS-1. CT head show no acute int racranial process and CTA show no large vesses occlusion/stenosis. No tPA as risk outweight benefits. Impression is TIA vs migraine as patient had similar episode on 07/02/2018. Patient is transferred to [facility] for further work up. No gross neurological deficits on examination. systolic murm urs noted in aortic/pulmonary and Tricuspid area. Impression: TIA, rule out stroke Plans: continue aspirin and high intensity statin Hb A1c, lipid panel EKG, ECHO, telemetry monitoring, neurocheck MRI brain Hold BP meds until MRI rule out acute stroke Neurology consult, speech/swallow consult Stroke Care path Reilly Majano MD hemoglobin a1c on Hemoglobin A1c/Hemoglobin.total 105 mg/dL Normal 07-29-2018 [facility] mass fraction (Bld) ([id number]) Comment: Result Comment: eAG: (Estima nicholas average glucose) is a calculated value from HgbA1c and is sales representative livestock of the average blood glucose level in the last 2-3 month period. Performed By: #### CBC, BMP #### [place] [phone] #### HBA1C, LIPB #### [facility] [address] [place] [address] Hemoglobin A1c/Hemoglobin.total 5.3 4.3-5.6 % Normal 07-29-2018 [facility] mass fraction (Bld) ([id number]) Comment: Result Comment: [place] [employer] guidelines indicate that patients with HgbA1c in the range 5.7-6.4% are at increased risk for development of diabetes, and intervention by lifestyle modification may be beneficial. HgbA1c greater o r equal to 6.5% is considered diagnostic of diabetes. Performed By: #### CBC, BMP #### [place] [phone] #### HBA1C, LIPB #### [facility] [address] [place] [address] ed prov note on 201 11-01-02 Protein mass HNO ID: [id number] Normal 07-30-19 19 [place] [facility] Author: Jamie Garcia MD Hospital Service: ? ([id number]) Author Type: Physician Type: ED Provider Notes Filed: 07/29/2018 2:11 AM Note Text: ED Provider Note Patient Name: Romain Bailey SERVICE DATE: 07/28/18 History Patient presents with: Headache Blurry Vision Both Eyes: started at 1300 intermittent Slurred Speech: pt said she had stuttering and difficulty fi nding words started at 1300 intermittent at this time Patient complains of headache, ataxia, some difficulty formi ng speech earlier, some right upper extremity coordination problem, on set at 1300 today while at work. She states her ataxia got a little wors e when she got off work around 2200. She has a history of hospitalization a [facility] [place] a month ago, when she was found on MRA to have . Suspected 2 m m aneurysm arising from the terminal right ICA. Otherwise, negative kellie dy. She had some ataxia and headache at that time. She states she had si milar symptoms then. 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 PAST MEDICAL HISTORY Diagnosis Date - Arthropathy, unspecified, site unspecified - Asthma - Back pain - Colon polyps 2013 - Diverticulitis 2000 - Environmental allergies - GERD (gastroesophageal reflux disease) - Hyperlipidemia lifestyle controlled - Hypertension - IBS (irritable bowel syndrome) - Migraine - Obesity PAST SURGICAL HISTORY Procedure Laterality Date - COLONOSCOP W/ OR W/O BRSH SPEC 05/29/2018 Colonoscopy - COLONOSCOPY AND POLYPECTOMY 12/03/2013 tubular adenoma, hyperplastic polyp; repeat due in 5y - DEBRIDE SKIN AND SUBQ TISSU 05/15/07 Debridement infected moira cyst upper mid back - PAST SURGICAL HISTORY OF 1984 metal removed from right tibial area - PAST SURGICAL HISTORY OF DANDC - REMOVAL GALLBLADDER ~2003 Cholecystectomy laparoscopic - TOTAL ABDOM HYSTERECTOMY 1999 MAURICE/BSO-pain, no abnormal paps FAMILY HISTORY Problem Relation Age of Onset - None Mother from fall - Diabetes Father - Ischemic Heart Disease Father d. [place] - Ischemic Heart Disease Maternal Grandfather d. [place] while holding her at 4mo - Blindness Brother - Heart Attack Brother Social History Tobacco Use - Smoking status: Never Smoker - Smokeless tobacco: Never Used Substance and Sexual Activity - Alcohol use: No - Drug use: No - Sexual activity: Not Currently ALLERGIES Allergen Reactions - Adhesive Tape (Marilou* Rash - Bactrim Ds [Sulfame* Anaphylaxis Difficulty breathing, fever, chills - Bee Sting Anaphylaxis - Darvon [Propoxyphen* - Prednisone GI Upset Review of Systems Constitutional: Negative. HENT: Negative. Eyes: Negative. Respiratory: Negative. Cardiovascular: Negative. Gastrointestinal: Negative. Endocrine: Negative. Genitourinary: Negative. Musculoskeletal: Negative. Skin: Negative. Allergic/Immunologic: Negative. Neurological: Positive for headaches. Hematological: Negative. Psychiatric/Behavioral: Negative. Physical Exam BP 160/72 Pulse 66 Temp (Src) 98.1 (Oral) Resp 18 Ht 5' 6 (1.68m) Wt 174 lb (78.9kg) SpO2 95% BMI 28.10 kg/(m2). O2 Therapy: Room Air Physical Exam Constitutional: She is oriented to person, place, and time. She appears well-developed and well-nourished. HENT: Head: Normocephalic. Right Ear: External ear normal. Left Ear: External ear normal. Nose: Nose normal. Mouth/Throat: Oropharynx is clear and moist. Eyes: Conjunctivae and EOM are normal. Neck: Normal range of motion. Neck supple. Cardiovascular: Normal rate, regular rhythm, normal heart so unds and intact distal pulses. Pulmonary/Chest: Effort normal and breath sounds normal. Abdominal: Soft. She exhibits no distension and no mass. The re is no tenderness. There is no rebound and no guarding. Musculoskeletal: Normal range of motion. Neurological: She is alert and oriented to person, place, an d time. Skin: Skin is warm and dry. Capillary refill takes less than 2 seconds. Psychiatric: She has a normal mood and affect. Her behavior is normal. Judgment and thought content normal. Nursing note and vitals reviewed. Diagnostic Testing ED Labs Ordered and Reviewed BASIC METABOLIC PNL - Abnormal; Notable for the following co mponents: Result Value Ref Range Potassium 3.6 (*) 3.7 - 5.1 mmol/L All other components within normal limits GLUCOSE - ED(POC) - Normal GLUCOSE, BLOOD (POC) GLUCOSE - ED(POC) CBC ACTIVATED PTT PROTHROMBIN TIME/PT TROPONIN T Procedures ED Course / Clinical Impression ..Course: Vital signs were reviewed. Triage records were reviewed. Medical records were reviewed. Nursing notes were reviewed and incorporated. The following medications were administered: acetaminophen Patient placed on monitor ECG reviewed and interpreted as NSR, heart rate 60, no acute ST T changes Labs reviewed and interpreted as .. Labs Reviewed BASIC METABOLIC PNL - Abnormal; Notable for the following co mponents: Result Value Potassium 3.6 (*) All other components within normal limits GLUCOSE - ED(POC) - Normal GLUCOSE, BLOOD (POC) GLUCOSE - ED(POC) CBC ACTIVATED PTT PROTHROMBIN TIME/PT TROPONIN T Radiographs were reviewed ..CTA HEAD W IVCON Final Result Addendum 1 of 1 * * *Final Report* * * * * * SEE BOTTOM OF REPORT FOR ADDENDED TEXT * * * DATE OF EXAM: Jul 28 2018 11:47PM [facility] [place] - CTA HEAD W IVCON / PROCEDURE REASON: Focal neuro deficit, new, fixed, or worsen ing, 4.5 to 24 hours, NIHSS < 6, strok * * * * Physician Interpretation * * * * * * * * * * * * ORIGINAL REPORT * * * * * * * * EXAMINATION: CTA HEAD W IVCON, CTA NECK W IVCON CLINICAL HISTORY: Focal neuro deficit, new, fixed, or worsen ing, 4.5 to 24 hours, NIHSS < 6, stroke TECHNIQUE: Spiral high resolution axial images were obtained through the head, neck and superior mediastinum following bolus admi nistration of intravenous contrast for CT angiography. 3D maximum intensit y projection images were created, reviewed and archived . MQ: CTAHN_4 Contrast: 80 mL Omnipaque 350 IV Dose-Length Product (DLP): 549 mGy*cm. CT Dose Reduction Employed: Automated exposure control (AEC) COMPARISON: CT brain performed on the same day RESULT: BRAIN: Evaluation of the individual slices of the CTA demonstrates no evidence of an acute stroke. ASPECT Score = 10 Hemorrhage: No evidence of acute intracranial hemorrhage. EC ASS hemorrhagic transformation score: Not Applicable Spot Sign Presence: Not Applicable Spot Sign Number: Not Applicable Moderate mucosal thickening and wall thickening of the left maxillary sinus suggestive of chronic sinusitis. NECK: Soft tissues: The soft tissue planes are maintained througho ut. No evidence of a soft tissue mass in the neck or superior media stinum. No significant lymphadenopathy is seen. Spine: Reversal of the cervical lordosis centered at C5-C6. Vertebral body alignment is otherwise unremarkable. Moderate degenerat yanick changes are present. Lung apices: The visualized lung apices are clear. CT ARTERIOGRAM: Extracranial Circulation: Aortic Arch: There is a normal branching pattern from the ao rtic arch.. There is no significant stenosis in the proximal brachioceph alic vessels. Carotid Stenosis: Right Common: Mildly degraded by motion proximally without a pparent narrowing. Right Internal Carotid Plaque: No significant plaque formati on. Right Internal Carotid Stenosis (% by NASCET Criteria): 0% Left Common: Partially obscured by streak artifact from the contrast bolus without apparent narrowing otherwise. Left Internal Carotid Plaque: Minimal plaque formation at bi furcation. Left Internal Carotid Stenosis (% by NASCET Criteria): 0% Cervical Vertebral Arteries: Patency: Bilateral Dominance: Codominant Intracranial Circulation: Anterior Circulation: Bilateral intracranial ICAs, ACAs and MCAs are patent. No hemodynamically significant stenosis. No aneurysm . Vertebrobasilar Circulation: Bilateral posterior cerebral ar teries and intradural vertebral basilar arteries are patent. Patent pro ximal SCAs. Prominent left and diminutive right posterior inferior cereb ellar arteries. No hemodynamically significant stenosis. No aneury sm. Major deep and cortical draining veins and dural venous sinu ses show typical contrast enhancement pattern. No focal narrowing or abnormal intraluminal filling defect. IMPRESSION: No significant stenosis, major vessel occlusion or aneurysm in the intracranial and extracranial circulations. Chronic left maxillary sinusitis. * * * * * * * * ADDENDUM #1 * * * * * * * * Retrospective review demonstrates a tiny 1.5 mm outpouching from the posterior inferior margin of the distal ophthalmic segment o f the right ICA (series 4, image 290). Focal 2 mm region of ectasia liliana g the posterior margin of the communicating segment of the right I CA (series 4, image 297). Fork Operator[facility] Transcribe Date/Time: Jul 29 2018 1:01A Dictated by : FRANCESCA MCKEON MD This examination was interpreted and the report reviewed and electronically signed by: FRANCESCA MCKEON MD on Jul 29 2018 12:37AM EST This document has been addended by: FRANCESCA MCKEON MD on Jul 29 2018 1:09AM EST Final IMPRESSION: No significant stenosis, major vessel occlusion or aneurysm in the intracranial and extracranial circulations. Chronic left maxillary sinusitis. Fork Operator: [facility] Transcribe Date/Time: Jul 28 2018 11:58P Dictated by : KIMBERLY HAMMER MD This examination was interpreted and the report reviewed and electronically signed by: FRANCESCA MCKEON MD on Jul 29 2018 12:37AM EST CTA NECK W IVCON Final Result Addendum 1 of 1 * * *Final Report* * * * * * SEE BOTTOM OF REPORT FOR ADDENDED TEXT * * * DATE OF EXAM: Jul 28 2018 11:47PM [facility] [place] - CTA NECK W IVCON / PROCEDURE REASON: Focal neuro deficit, new, fixed, or worsen ing, 4.5 to 24 hours, NIHSS < 6, strok * * * * Physician Interpretation * * * * * * * * * * * * ORIGINAL REPORT * * * * * * * * EXAMINATION: CTA HEAD W IVCON, CTA NECK W IVCON CLINICAL HISTORY: Focal neuro deficit, new, fixed, or worsen ing, 4.5 to 24 hours, NIHSS < 6, stroke TECHNIQUE: Spiral high resolution axial images were obtained through the head, neck and superior mediastinum following bolus admi nistration of intravenous contrast for CT angiography. 3D maximum intensit y projection images were created, reviewed and archived . MQ: CTAHN_4 Contrast: 80 mL Omnipaque 350 IV Dose-Length Product (DLP): 549 mGy*cm. CT Dose Reduction Employed: Automated exposure control (AEC) COMPARISON: CT brain performed on the same day RESULT: BRAIN: Evaluation of the individual slices of the CTA demonstrates no evidence of an acute stroke. ASPECT Score = 10 Hemorrhage: No evidence of acute intracranial hemorrhage. EC ASS hemorrhagic transformation score: Not Applicable Spot Sign Presence: Not Applicable Spot Sign Number: Not Applicable Moderate mucosal thickening and wall thickening of the left maxillary sinus suggestive of chronic sinusitis. NECK: Soft tissues: The soft tissue planes are maintained througho ut. No evidence of a soft tissue mass in the neck or superior media stinum. No significant lymphadenopathy is seen. Spine: Reversal of the cervical lordosis centered at C5-C6. Vertebral body alignment is otherwise unremarkable. Moderate degenerat yanick changes are present. Lung apices: The visualized lung apices are clear. CT ARTERIOGRAM: Extracranial Circulation: Aortic Arch: There is a normal branching pattern from the ao rtic arch.. There is no significant stenosis in the proximal brachioceph alic vessels. Carotid Stenosis: Right Common: Mildly degraded by motion proximally without a pparent narrowing. Right Internal Carotid Plaque: No significant plaque formati on. Right Internal Carotid Stenosis (% by NASCET Criteria): 0% Left Common: Partially obscured by streak artifact from the contrast bolus without apparent narrowing otherwise. Left Internal Carotid Plaque: Minimal plaque formation at bi furcation. Left Internal Carotid Stenosis (% by NASCET Criteria): 0% Cervical Vertebral Arteries: Patency: Bilateral Dominance: Codominant Intracranial Circulation: Anterior Circulation: Bilateral intracranial ICAs, ACAs and MCAs are patent. No hemodynamically significant stenosis. No aneurysm . Vertebrobasilar Circulation: Bilateral posterior cerebral ar teries and intradural vertebral basilar arteries are patent. Patent pro ximal SCAs. Prominent left and diminutive right posterior inferior cereb ellar arteries. No hemodynamically significant stenosis. No aneury sm. Major deep and cortical draining veins and dural venous sinu ses show typical contrast enhancement pattern. No focal narrowing or abnormal intraluminal filling defect. IMPRESSION: No significant stenosis, major vessel occlusion or aneurysm in the intracranial and extracranial circulations. Chronic left maxillary sinusitis. * * * * * * * * ADDENDUM #1 * * * * * * * * Retrospective review demonstrates a tiny 1.5 mm outpouching from the posterior inferior margin of the distal ophthalmic segment o f the right ICA (series 4, image 290). Focal 2 mm region of ectasia liliana g the posterior margin of the communicating segment of the right I CA (series 4, image 297). Fork Operator: [facility] Transcribe Date/Time: Jul 29 2018 1:01A Dictated by : FRANCESCA MCKEON MD This examination was interpreted and the report reviewed and electronically signed by: FRANCESCA MCKEON MD on Jul 29 2018 12:37AM EST This document has been addended by: FRANCESCA MCKEON MD on Jul 29 2018 1:09AM EST Final IMPRESSION: No significant stenosis, major vessel occlusion or aneurysm in the intracranial and extracranial circulations. Chronic left maxillary sinusitis. Fork Operator: [facility] Transcribe Date/Time: Jul 28 2018 11:58P Dictated by : KIMBERLY HAMMER MD This examination was interpreted and the report reviewed and electronically signed by: FRANCESCA MCKEON MD on Jul 29 2018 12:37AM EST CT BRAIN ATTACK WO IVCON Final Result Abnormal IMPRESSION: No acute intracranial abnormality. CRITICAL TEST/RESULTS: Notification initiated at 23:35. Comm unicated with Dr. Jamie Garcia on 07/28/2018 at 23:36. CR_1 Fork Operator: [facility] Transcribe Date/Time: Jul 28 2018 11:35P Dictated by : FRANCESCA MCKEON MD This examination was interpreted and the report reviewed and electronically signed by: FRANCESCA MCKEON MD on Jul 28 2018 11:39PM EST A consult was requested and obtained from gis consultant(s) tele stroke at [facility] thompson, Dr Cali. The gis consultant made the following conclusions/recommendation s: TPA not indicated, outside time window, history of recent diagnosis 2mm ICA aneurysm; admit to telemetry observation, neurology consult; will transfer to [place] to do this. The case was discussed with the admitting physician. Medical Decision Making: Patient presents with truncal ataxia, past pointing right up per extremity, headache; similar presentation a month ago, felt to be compl ex migraine, but found to have small ICA aneurysm on MRA. Currently, she does have almost the exact same presentation; she possibly could have TIA, or posterior circulation stroke in evolution, possibly complex migraine, but not as likely in her age group and her history; possible com plication of her ICA aneurysm also; will admit to observation at [place] to get neurology consult. The attending who evaluated and managed this patient was Jamie Mancilla . Plan: The patient was transferred to [place] for observation tele metry, neurology consult Jamie Garcia MD Clinical Impressions as of Jul 29 210 Truncal ataxia Headache disorder MDM / Disposition / Plan MDM SIGNATURE: MD Jamie Garcia MD 07/29/18 0212 ed note on ED NOTE HNO ID: [id number] Normal 07-29-2018 [facility] ([id number]) Author: Riana StrongRn) CHAPARRITA Pappas Service: ? Author Type: Registered Nurse Type: ED Notes Filed: 07/29/2018 2:44 AM Note Text: report given to [facility] ED NOTE HNO ID: [id number] Normal 07-29-2018 [facility] ([id number]) Author: Riana StrongRn) CHAPARRITA Pappas Service: ? Author Type: Registered Nurse Type: ED Notes Filed: 07/29/2018 2:10 AM Note Text: dr garcia in room to update pt on plan of care. ED NOTE HNO ID: [id number] [place] 07-29-2018 [facility] ([id number]) Author: Riana StrongRn) CHAPARRITA Pappas Service: ? Author Type: Registered Nurse Type: ED Notes Filed: 07/28/2018 11:50 PM Note Text: Patient returned to the Emergency Department. ED NOTE HNO ID: [id number] [place] 07-29-2018 [facility] ([id number]) Author: Riana StrongRn) CHAPARRITA Pappas Service: ? Author Type: Registered Nurse Type: ED Notes Filed: 07/28/2018 11:33 PM Note Text: Patient transported to [place] with Nurse and Tech. ED NOTE HNO ID: [id number] [place] 07-29-2018 [facility] ([id number]) Author: Riana StrongRn) CHAPARRITA Pappas Service: ? Author Type: Registered Nurse Type: ED Notes Filed: 07/29/2018 12:14 AM Note Text: pt made a stroke alert by dr. Garcia ED NOTE HNO ID: [id number] [place] 07-29-2018 [facility] ([id number]) Author: Riana StrongRn) CHAPARRITA Pappas Service: ? Author Type: Registered Nurse Type: ED Notes Filed: 07/28/2018 11:20 PM Note Text: dr garcia at bedside to see pt ED NOTE HNO ID: [id number] [place] 07-29-2018 [facility] ([id number]) Author: Antonia StrongRnRosie Hernandez RN Service: ? 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 Her balance was unsteady with transfer from wheelchair to the ER bed She has a friend at the bedside ecg complete on 11-01-02 ECG COMPLETE NAME : ROMAIN BAILEY [place] 2018 [facility] PID : [id number] ([id number]) : 1950 Gender : Female Race : ORD : [id number] Procedure Date : Jul 28 2018 23:04:19 Edit Date : Aug 05 2018 12:36:16 Diagnosis:NORMAL SINUS RHYTHM NORMAL ECG agree - EF Garcia Confirmed by Denisse COOK, Narinder Ryan ([id number]), electronic news gathering editor SHAWN GARZA ([id number]) on 08/05/2018 12:32:26 PM Ventricular Rate : 60 BPM Atrial Rate : 60 BPM P-R Interval : 158 ms QRS Duration : 72 ms Q-T Interval : 462 ms QTC Calculation(Bezet) : 462 ms P Everson : 91 degrees R Everson : 18 degrees T Everson : 38 degrees Test Reason : Chest Pain Location : 1 : ER 2 Overread By : Denisse COOK,NA Ryan Edited By : SHAWN GARZA Referred By : , Acquired by : LAN, cta neck w ivcon on 2018-07-29 CTA NECK W * * *Final Report* * * Normal 2018 [facility] IVCON * * * SEE BOTTOM OF REPORT FOR ADDENDED TEXT * * * ([id number]) DATE OF EXAM: Jul 28 2018 11:47PM [facility] [place] - CTA NECK W IVCON / PROCEDURE REASON: Focal neuro deficit, new, fixed, or worsen ing, 4.5 to 24 hours, NIHSS < 6, strok * * * * Physician Interpretation * * * * * * * * * * * * ORIGINAL REPORT * * * * * * * * EXAMINATION: CTA HEAD W IVCON, CTA NECK W IVCON CLINICAL HISTORY: Focal neuro deficit, new, fixed, or worsen ing, 4.5 to 24 hours, NIHSS < 6, stroke TECHNIQUE: Spiral high resolution axial images were obtained through the head, neck and superior mediastinum following bolus admi nistration of intravenous contrast for CT angiography. 3D maximum intensit y projection images were created, reviewed and archived . MQ: CTAHN_4 Contrast: 80 mL Omnipaque 350 IV Dose-Length Product (DLP): 549 mGy*cm. CT Dose Reduction Employed: Automated exposure control (AEC) COMPARISON: CT brain performed on the same day RESULT: BRAIN: Evaluation of the individual slices of the CTA demonstrates no evidence of an acute stroke. ASPECT Score = 10 Hemorrhage: No evidence of acute intracranial hemorrhage. EC ASS hemorrhagic transformation score: Not Applicable Spot Sign Presence: Not Applicable Spot Sign Number: Not Applicable Moderate mucosal thickening and wall thickening of the left maxillary sinus suggestive of chronic sinusitis. NECK: Soft tissues: The soft tissue planes are maintained througho ut. No evidence of a soft tissue mass in the neck or superior media stinum. No significant lymphadenopathy is seen. Spine: Reversal of the cervical lordosis centered at C5-C6. Vertebral body alignment is otherwise unremarkable. Moderate degenerat yanick changes are present. Lung apices: The visualized lung apices are clear. CT ARTERIOGRAM: Extracranial Circulation: Aortic Arch: There is a normal branching pattern from the ao rtic arch.. There is no significant stenosis in the proximal brachioceph alic vessels. Carotid Stenosis: Right Common: Mildly degraded by motion proximally without a pparent narrowing. Right Internal Carotid Plaque: No significant plaque formati on. Right Internal Carotid Stenosis (% by NASCET Criteria): 0% Left Common: Partially obscured by streak artifact from the contrast bolus without apparent narrowing otherwise. Left Internal Carotid Plaque: Minimal plaque formation at bi furcation. Left Internal Carotid Stenosis (% by NASCET Criteria): 0% Cervical Vertebral Arteries: Patency: Bilateral Dominance: Codominant Intracranial Circulation: Anterior Circulation: Bilateral intracranial ICAs, ACAs and MCAs are patent. No hemodynamically significant stenosis. No aneurysm . Vertebrobasilar Circulation: Bilateral posterior cerebral ar teries and intradural vertebral basilar arteries are patent. Patent pro ximal SCAs. Prominent left and diminutive right posterior inferior cereb ellar arteries. No hemodynamically significant stenosis. No aneury sm. Major deep and cortical draining veins and dural venous sinu ses show typical contrast enhancement pattern. No focal narrowing or abnormal intraluminal filling defect. IMPRESSION: No significant stenosis, major vessel occlusion or aneurysm in the intracranial and extracranial circulations. Chronic left maxillary sinusitis. * * * * * * * * ADDENDUM #1 * * * * * * * * Retrospective review demonstrates a tiny 1.5 mm outpouching from the posterior inferior margin of the distal ophthalmic segment o f the right ICA (series 4, image 290). Focal 2 mm region of ectasia liliana g the posterior margin of the communicating segment of the right I CA (series 4, image 297). Fork Operator: [facility] Transcribe Date/Time: Jul 29 2018 1:01A Dictated by : FRANCESCA MCKEON MD This examination was interpreted and the report reviewed and electronically signed by: FRANCESCA MCKEON MD on Jul 29 2018 12:37AM EST This document has been addended by: FRANCESCA MCKEON MD on Jul 29 2018 1:09AM EST [id number] cta head w ivcon on 2018-07-29 CTA HEAD W * * *Final Report* * * Normal 2018 [facility] IVCON * * * SEE BOTTOM OF REPORT FOR ADDENDED TEXT * * * ([id number]) DATE OF EXAM: Jul 28 2018 11:47PM [facility] [place] - CTA HEAD W IVCON / PROCEDURE REASON: Focal neuro deficit, new, fixed, or worsen ing, 4.5 to 24 hours, NIHSS < 6, strok * * * * Physician Interpretation * * * * * * * * * * * * ORIGINAL REPORT * * * * * * * * EXAMINATION: CTA HEAD W IVCON, CTA NECK W IVCON CLINICAL HISTORY: Focal neuro deficit, new, fixed, or worsen ing, 4.5 to 24 hours, NIHSS < 6, stroke TECHNIQUE: Spiral high resolution axial images were obtained through the head, neck and superior mediastinum following bolus admi nistration of intravenous contrast for CT angiography. 3D maximum intensit y projection images were created, reviewed and archived . MQ: CTAHN_4 Contrast: 80 mL Omnipaque 350 IV Dose-Length Product (DLP): 549 mGy*cm. CT Dose Reduction Employed: Automated exposure control (AEC) COMPARISON: CT brain performed on the same day RESULT: BRAIN: Evaluation of the individual slices of the CTA demonstrates no evidence of an acute stroke. ASPECT Score = 10 Hemorrhage: No evidence of acute intracranial hemorrhage. EC ASS hemorrhagic transformation score: Not Applicable Spot Sign Presence: Not Applicable Spot Sign Number: Not Applicable Moderate mucosal thickening and wall thickening of the left maxillary sinus suggestive of chronic sinusitis. NECK: Soft tissues: The soft tissue planes are maintained througho ut. No evidence of a soft tissue mass in the neck or superior media stinum. No significant lymphadenopathy is seen. Spine: Reversal of the cervical lordosis centered at C5-C6. Vertebral body alignment is otherwise unremarkable. Moderate degenerat yanick changes are present. Lung apices: The visualized lung apices are clear. CT ARTERIOGRAM: Extracranial Circulation: Aortic Arch: There is a normal branching pattern from the ao rtic arch.. There is no significant stenosis in the proximal brachioceph alic vessels. Carotid Stenosis: Right Common: Mildly degraded by motion proximally without a pparent narrowing. Right Internal Carotid Plaque: No significant plaque formati on. Right Internal Carotid Stenosis (% by NASCET Criteria): 0% Left Common: Partially obscured by streak artifact from the contrast bolus without apparent narrowing otherwise. Left Internal Carotid Plaque: Minimal plaque formation at bi furcation. Left Internal Carotid Stenosis (% by NASCET Criteria): 0% Cervical Vertebral Arteries: Patency: Bilateral Dominance: Codominant Intracranial Circulation: Anterior Circulation: Bilateral intracranial ICAs, ACAs and MCAs are patent. No hemodynamically significant stenosis. No aneurysm . Vertebrobasilar Circulation: Bilateral posterior cerebral ar teries and intradural vertebral basilar arteries are patent. Patent pro ximal SCAs. Prominent left and diminutive right posterior inferior cereb ellar arteries. No hemodynamically significant stenosis. No aneury sm. Major deep and cortical draining veins and dural venous sinu ses show typical contrast enhancement pattern. No focal narrowing or abnormal intraluminal filling defect. IMPRESSION: No significant stenosis, major vessel occlusion or aneurysm in the intracranial and extracranial circulations. Chronic left maxillary sinusitis. * * * * * * * * ADDENDUM #1 * * * * * * * * Retrospective review demonstrates a tiny 1.5 mm outpouching from the posterior inferior margin of the distal ophthalmic segment o f the right ICA (series 4, image 290). Focal 2 mm region of ectasia liliana g the posterior margin of the communicating segment of the right I CA (series 4, image 297). Fork [facility] Transcribe Date/Time: Jul 29 2018 1:01A Dictated by : FRANCESCA MCKEON MD This examination was interpreted and the report reviewed and electronically signed by: FRANCESCA MCKEON MD on Jul 29 2018 12:37AM EST This document has been addended by: FRANCESCA MCKEON MD on Jul 29 2018 1:09AM EST [id number] ct brain attack wo ivcon on 2018-07-29 CT BRAIN ATTACK * * *Final Report* * * 0 07-29-2018 [facility] WO IVCON DATE OF EXAM: Jul 28 2018 11:34PM ([id number]) [facility] [place] CT BRAIN ATTACK WO IVCON / PROCEDURE REASON: Focal neuro deficit, new, fixed, or worsen ing, 4.5 to 24 hours, NIHSS 6 or great * * * * Physician Interpretation * * * * EXAMINATION: CT BRAIN ATTACK WO IVCON CLINICAL HISTORY: Brain attack. TECHNIQUE: Routine CT of the brain without IV contrast. MQ: CTBA_4 CT Dose-Length Product (DLP): 636 mGy*cm CT Dose Reduction Employed: No dose reduction techniques wer e required COMPARISON: None available RESULT: Acute ischemic change: None. ASPECT Score = 10 Hemorrhage: No evidence of acute intracranial hemorrhage. EC ASS Hemorrhagic Transformation Score = Not Applicable Mass Lesion / Mass Effect: There is no evidence of an intrac ranial mass or extraaxial fluid collection. No significant mass effect. Chronic change: Scattered patchy foci of low attenuation are present within white matter which is a nonspecific finding but likel y represents mild microvascular ischemia. Parenchyma: There is no significant volume loss. The brain p arenchyma is otherwise within normal limits for age. Ventricles: Normal caliber and morphology. Other: The visualized calvarium, skull base, orbits and extr acranial soft tissues are normal. IMPRESSION: No acute intracranial abnormality. CRITICAL TEST/RESULTS: Notification initiated at 23:35. Comm unicated with Dr. Jamie Garcia on 07/28/2018 at 23:36. CR_1 Fork Operator: [facility] Transcribe Date/Time: Jul 28 2018 11:35P Dictated by : FRANCESCA MCKEON MD This examination was interpreted and the report reviewed and electronically signed by: FRANCESCA MCKEON MD on Jul 28 2018 11:39PM EST [id number] CRITICAL!! consult on CONSULT HNO ID: [id number] Normal 07-29-2018 [facility] Author: Nathalie Galvez ([id number]) Service: Neurology General Author Type: Physician Type: Consults Filed: 07/29/2018 10:38 AM Note Text: Patient seen and examined Chart reviewed Patient is 68 years old woman from [place] ,started having h eadache since as her migraine headache ,but on Sunday she felt cl umsy on the right hand ,she was stuttering ,and felt imbalance while wal [facility] ,she didn't fall . Headache was still there severe throbbing with photophobia a nd phonophobia Previous admission to [place] in June with the same symptoms During today exam she has dysmetria on right finger to nose and right arm drift She was afraid to walk because of imbalance Recommend Stroke work up as ordered by medical team Aspirin statin for stroke prevention Migraine treatment with magnesium 500 mg daily as preventive b2 100 mg twice a day CONSULT HNO ID: [id number] Normal 07-29-2018 [facility] Author: Nathalie Chavez Lenny ([id number]) Service: Neurology General Author Type: Physician Type: Consults Filed: 07/29/2018 10:37 AM Note Text: INITIAL CONSULT NEURO STROKE SERVICE DATE: 07/29/2018 * PCP: Alaina Erickson MD REASON FOR STROKE EVALUATION: headache ,clumsiness Subjective HPI: Patient is 68 years old woman with migraine headache hy pertension ,admitted because of stroke like symptoms with this episode of migraine presented to the hospital from [place] ED with c/o blurry vi asuncion, stuttering of speech and wobbly gait that started around 1 p m yesterday ,associated with headache since intermittently but never going away completely until yesterday morning when she started having excruciating headache Pre-admission Was patient on antithrombotic agent prior to admission: No Was patient on lipid lowering agent prior to admission: Stat in Pre-morbid mRS: PAST MEDICAL HISTORY Diagnosis Date - Arthropathy, unspecified, site unspecified - Asthma - Back pain - Colon polyps 2013 - Diverticulitis 2000 - Environmental allergies - GERD (gastroesophageal reflux disease) - Hyperlipidemia lifestyle controlled - Hypertension - IBS (irritable bowel syndrome) - Migraine - Obesity PAST SURGICAL HISTORY Procedure Laterality Date - COLONOSCOP W/ OR W/O BRSH SPEC 05/29/2018 Colonoscopy - COLONOSCOPY AND POLYPECTOMY 12/03/2013 tubular adenoma, hyperplastic polyp; repeat due in 5y - DEBRIDE SKIN AND SUBQ TISSU 05/15/07 Debridement infected moira cyst upper mid back - PAST SURGICAL HISTORY OF 1984 metal removed from right tibial area - PAST SURGICAL HISTORY OF [facility] - REMOVAL GALLBLADDER ~2003 Cholecystectomy laparoscopic - TOTAL ABDOM HYSTERECTOMY 1999 MAURICE/BSO-pain, no abnormal paps Social History Socioeconomic History Marital status: Single Spouse name: Not on file Number of children: 4 Years of education: Not on file Highest education level: Not on file Social Needs Financial resource strain: Not on file Food insecurity - worry: Not on file Food insecurity - inability: Not on file Transportation needs - medical: Not on file Transportation needs - non-medical: Not on file Occupational History Occupation: [employer] 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 [employer]. 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 FAMILY HISTORY Problem Relation Age of Onset - None Mother from fall - Diabetes Father - Ischemic Heart Disease Father d. CA - Ischemic Heart Disease Maternal Grandfather d. CA while holding her at 4mo - Blindness Brother - Heart Attack Brother ALLERGIES Allergen Reactions - Adhesive Tape (Marilou* Rash - Bactrim Ds [Sulfame* Anaphylaxis Difficulty breathing, fever, chills - Bee Sting Anaphylaxis - Darvon [Propoxyphen* - Prednisone GI Upset MEDICATION Pre-admission Medications Prior to Admission: atorvastatin (LIPITOR) 20 mg tablet Take 1 tablet by mouth o nce daily. Disp: 90 tablet Rfl: 07/28/2018 at Unknown time SUMAtriptan (IMITREX) 50 mg tablet Take 1 tablet by mouth as needed (at onset of severe headache). May repeat in 2 hours if necessar y. Disp: 6 tablet Rfl: 07/28/2018 at Unknown time fluticasone (FLONASE) 50 mcg/actuation nasal spray Use 2 Spr ays in each nostril once daily. Disp: 1 Bottle Rfl: 07/28/2018 at Unkno wn time cycloSPORINE (RESTASIS) 0.05 % ophthalmic emulsion Use 1 Joon p in both eyes twice daily. Both eyes. Disp: Rfl: 07/28/2018 at Unknown time loratadine (CLARITIN) 10 mg tablet Take 1 tablet by mouth on ce daily. Disp: 30 tablet Rfl: 07/28/2018 at Unknown time verapamil SR (CALAN SR, ISOPTIN SR) 240 mg CR tablet TAKE 1 TABLET BY MOUTH EVERYDAY AT BEDTIME Disp: 30 tablet Rfl: 07/28/2018 at Unknown time benzonatate (TESSALON PERLES) 100 mg capsule Take 2 capsules by mouth three times daily as needed. Disp: 30 capsule Rfl: 0 9 at Unknown time fluticasone-salmeterol (ADVAIR DISKUS) 100-50 mcg/dose dsdv Inhale 1 Puff as instructed twice daily. RINSE AND GARGLE MOUTH WITH WATER AFTER EACH USE. Disp: 3 Inhaler Rfl: 4 07/28/2018 at Unknown time pantoprazole DR (PROTONIX) 20 mg tablet Take 1 tablet by robert th daily before breakfast. Take on empty stomach, 1/2 hr before meal. Disp: 90 tablet Rfl: 3 07/28/2018 at Unknown time albuterol HFA (VENTOLIN HFA) 90 mcg/actuation inhaler Inhale 2 Puffs as instructed every 6 hours as needed. Disp: 1 Inhaler Rfl: 5 at Unknown time EPINEPHrine (AUVI-Q) 0.3 mg/0.3 mL auto-injector Inject 0.3 mL intramuscularly as needed. Disp: 2 Each Rfl: 5 07/28/2018 at U nknown time ammonium lactate (LAC-HYDRIN) 12 % lotion Apply 1 applicatio n to affected area as needed for Dry Skin (arms). Disp: 120 g Rfl: 2 019 at Unknown time Nebulizer NEBULIZER FOR HOME USE. DX: J45.20 Disp: 1 Device Rfl: 0 07/28/2018 at Unknown time albuterol (PROVENTIL) 2.5 mg /3 mL (0.083 %) nebulizer solut ion Use 3 mL via nebulizer every 4 hours as needed for Wheezing/Shortness of Breath. Use over 5-15minutes. Disp: 25 Vial Rfl: 1 07/28/2018 at Unkno wn time GLUC BARR/CHONDRO BARR A/VIT C/MN (GLUCOSAMINE 1500 COMPLEX ORAL ) Take 1 tablet by mouth once daily. Disp: Rfl: 07/28/2018 at Unknown t lorie Current atorvastatin (LIPITOR) 20 mg tablet Take 1 tablet by mouth o nce daily. SUMAtriptan (IMITREX) 50 mg tablet Take 1 tablet by mouth as needed (at onset of severe headache). May repeat in 2 hours if necessar y. fluticasone (FLONASE) 50 mcg/actuation nasal spray Use 2 Spr ays in each nostril once daily. cycloSPORINE (RESTASIS) 0.05 % ophthalmic emulsion Use 1 Joon p in both eyes twice daily. Both eyes. loratadine (CLARITIN) 10 mg tablet Take 1 tablet by mouth on ce daily. verapamil SR (CALAN SR, ISOPTIN SR) 240 mg CR tablet TAKE 1 TABLET BY MOUTH EVERYDAY AT BEDTIME benzonatate (TESSALON PERLES) 100 mg capsule Take 2 capsules by mouth three times daily as needed. fluticasone-salmeterol (ADVAIR DISKUS) 100-50 mcg/dose dsdv Inhale 1 Puff as instructed twice daily. RINSE AND GARGLE MOUTH WITH WATER AFTER EACH USE. pantoprazole DR (PROTONIX) 20 mg tablet Take 1 tablet by robert th daily before breakfast. Take on empty stomach, 1/2 hr before meal. albuterol HFA (VENTOLIN HFA) 90 mcg/actuation inhaler Inhale 2 Puffs as instructed every 6 hours as needed. EPINEPHrine (AUVI-Q) 0.3 mg/0.3 mL auto-injector Inject 0.3 mL intramuscularly as needed. ammonium lactate (LAC-HYDRIN) 12 % lotion Apply 1 applicatio n to affected area as needed for Dry Skin (arms). Nebulizer NEBULIZER FOR HOME USE. DX: J45.20 albuterol (PROVENTIL) 2.5 mg /3 mL (0.083 %) nebulizer solut ion Use 3 mL via nebulizer every 4 hours as needed for Wheezing/Shortness of Breath. Use over 5-15minutes. GLUC BARR/CHONDRO BARR A/VIT C/MN (GLUCOSAMINE 1500 COMPLEX ORAL ) Take 1 tablet by mouth once daily. REVIEW OF SYSTEMS The following systems were reviewed with the patient, and ar e unremarkable other than as described below. SYSTEMIC: No fever, chills, or change in weight or appetite HEENT: No recent change in vision or hearing. GI: No recent nausea, vomiting or diarrhea. : No recent hematuria or dysuria. SKIN: No recent itching or eruption. PSYCH: No recent active anxiety or depression. HEMATOLOGY/ONCOLOGY: No recent diagnosis of bleeding or canc er. ENDOCRINE: No recent diagnosis of DM or thyroid disease. RHEUMATOLOGY: No recent active connective tissue disease. Objective PHYSICAL EXAM Vital Signs: BP 123/70 Pulse 69 Temp 36.6 ?C (97.9 ?F) (Temporal) R anita 18 SpO2 96% GENERAL: Awake/easily arousable. HEENT: Normocephalic/atraumatic, no lymphadenopathy, thyroid non-tender, without palpable masses/nodules or enlargement. RESPIRATORY: Normal respiratory effort. Clear to auscultatio n without rhonchi, rales, wheezing. CARDIOVASCULAR: RRR, normal S1, S2 auscultated, no murmur pr esent. No lower extremity edema. GI: No hernia, masses, hepatosplenomegaly or lymphadenopathy . EXTREMITIES: No cyanosis, clubbing or edema. Pedal and radia l pulses 2+ bilaterally. SKIN: Skin color, texture, turgor normal. No rashes or lesio ns. MUSCULOSKELETAL Spine range of motion normal. Muscular stren gth intact. Range of motion normal in hips, knees, shoulders, and spine. No joint swelling, deformity, or tenderness. NEUROLOGICAL: LOC: 0 - alert and responsive 0 LOC Questions: 0 - both correct 0 LOC Commands: 0 - both correct 0 LOC Normal Gaze: 0 - normal gaze 0 Visual Rai: 0 - no visual loss 0 Facial Palsy: 0 - normal 0 Motor Left Arm: 0 - no drift 0 Motor Right Arm: 1 - drift but does not hit bed 1 Motor Left Le - no drift 0 Motor Right Le - no drift 0 Limb Ataxia: 1 - ataxia in upper or lower extremity 1 Sensory: 0 - normal 0 Language: 0 - normal 0 Dysarthria: 0 - normal 0 Extinction/Neglect: 0 - normal, none detected (or visual los s alone) 0 Initial NIHSS: 2 (07/29/18 1025 : Nathalie Y Lenny) 2 MENTAL STATUS: Alert, oriented to person, place and time and Follows commands CRANIAL NERVES: PERRLA, Extraocular movements intact, Face s ymmetric, Hearing intact to finger rub bilaterally, Palate elevates sy mmetrically, Tongue protrudes midline and Shoulder shrug intact and symme tric MOTOR: Pronator drift right REFLEXES: UE and LE reflexes are equal and reactive SENSATION: Intact light touch COORDINATION: Dysmetria noted in right finger to nose GAIT: Not assessed DATA: Diagnostic tests reviewed for today's visit: Lipids, HbA1c, CMP, CBC, Coags Recent Labs 07/29/18 0635 07/28/18 2315 NA 142 142 K 3.6 3.6* CHLOR 104 105 CO2 25 28 BUN 13 17 CREAT 0.62* 0.69 GLUC 88 81 CA 8.9 9.3 WBC 5.06 6.61 HB 13.3 14.1 HCT 39.6 42.4 PLT 205 236 INR -- 1.0 APTT -- 25.9 Cardiac Enzymes Recent Labs 07/28/18 2315 TROPT <0.010 usCRP Most recent labs and imaging results. STROKE CARE PATH BONDS METRICS Lila Coma Scale Totals (Calculated): 15 IMAGING AND ENDOVASCULAR THERAPY STROKE 9 CARE AND PREVENTION CHECKLIST 1. Is the patient currently on an ANTITHROMBOTIC medication (Antiplatelet or Anticoagulant): Aspirin 2. Does the patient have known AFIB/FLUTTER: No 3. Is the patient on a STATIN: Atorvastatin 40 mg 4. Is the patient on VTE prophylaxis: Pharmacological prophy laxis Pharmacological intervention type: Lovenox 5. GLYCEMIC Control Medications: Not Diabetic 6. Stroke BP Goals: Permissive HTN (treat if >220/120) Stroke BP Control: BP well controlled 7. Stroke IVF/Nutrition: Diet 8. TEMPERATURE Control: Normothermic 9. Does the patient need THERAPY: Yes Therapy involvement: PT;OT Stroke Care and Prevention (personally reviewed by Nathalie sanabria MD): PROBLEM LIST: Active Problems: TIA (transient ischemic attack) POA: Yes Resolved Problems: * No resolved hospital problems. * Impression/Recommendations Romain Bailey is a 68 year old, female, ambidextrous patie nt. ? With migraine headache and stroke like symptoms as above , including residual symptoms that remain the same (incoordination and i mbalance,right arm drift ) Risk Factors Hypertension Y Coronary Artery Disease NA Diabetes NA Obesity Y Dyslipidemia NA Tobacco Use (Please Update Smoking History) NA Stroke NA Intracranial Aneurysm NA Stroke Mechanism PLAN ? Aspirin statin ? Stroke protocol and work up including echo ? Metabolic work up ? Stroke prevention ? No imitrex for headache because of increased risk of strok e in this patient ? Preventive headache medications as magnesium or b2 can be used IV tPA was not recommended to be given to the patient, refer to Exclusion Criteria as documented in Stroke Care Path. Imaging Ordered Today: MRI Brain ordered for focal neuro deficit. SIGNATURE: Nathalie Galvez MD PATIENT NAME: Romain Bailey DATE: July 29, 2018 TIME: 10:00 AM PAGER/CONTACT #: ana m on 2018-07-29 Erythrocyte distribution 13.0 11.5-15.0 % Normal 07-29 [facility] width Ratio (RBC) (0 0000) Comment: Performed By: #### CBC, BMP #### [place] [phone] #### HBA1C, LIPB #### [facility] [address] [place] [address] Hematocrit Volume Fraction 39.6 36.0-46.0 % Normal [facility] ([id number]) Comment: Performed By: #### CBC, BMP #### [place] [phone] #### HBA1C, LIPB #### [facility] [place] [address] Hemoglobin mass conc 13.3 11.5-15.5 g/dL Normal [address] [place] [address]) ([id number]) Comment: Performed By: #### CBC, BMP #### [place] [phone] #### HBA1C, LIPB #### [facility] [address] [place] [address] MCH Entitic mass (RBC) 28.9 26.0-34.0 pG Normal [address] [place] [address] (69[address]) Comment: Performed By: #### CBC, BMP #### [place] [phone] #### HBA1C, LIPB #### [facility] [address] [place] [address] MCHC mass conc (RBC) 33.6 30.5-36.0 g/dL Normal [address] [place] [address] (87030) Comment: Performed By: #### CBC, BMP #### [place] [phone] #### HBA1C, LIPB #### [facility] [place] [phone] MCV Entitic volume (RBC) 85.9 80.0-100.0 fL Normal 06-0 [facility] (54786) Comment: Performed By: #### CBC, BMP #### [place] [phone] #### HBA1C, LIPB #### [facility] [address] [place] [address] Platelet mean volume 9.9 9.0-12.7 fL Normal 9 [facility] (42159) Entitic volume (Bld) Comment: Performed By: #### CBC, BMP #### [place] [phone] #### HBA1C, LIPB #### [facility] [address] [place] [address] Platelets #/vol (Bld) 205 150-400 k/uL Normal 07-30-19 [facility] (97821) Comment: Performed By: #### CBC, BMP #### [place] [phone] #### HBA1C, LIPB #### [facility] [address] [place] [address] RBC #/vol (Bld) 4.61 3.90-5.20 m/uL Normal 07-29-2018 [facility] (57835) Comment: Performed By: #### CBC, BMP #### [place] [phone] #### HBA1C, LIPB #### [facility] [address] [place] [address] WBC #/vol (Bld) 5.06 3.70-11.00 k/uL Normal 07-29-2018 [facility] (24090) Comment: Performed By: #### CBC, BMP #### [place] [phone] #### HBA1C, LIPB #### [facility] [address] [place] [id number] Erythrocyte distribution 13.2 11.5-15.0 % Normal 07-29 [facility] (09245) width Ratio (RBC) Comment: Performed By: #### CBC, PT, PTT, BMP ####[place] [phone] 0 Hematocrit Volume Fraction 42.4 36.0-46.0 % Normal [facility] (39282) (Bld) Comment: Performed By: #### CBC, PT, PTT, BMP ####[place] [address] 0 Hemoglobin mass conc 14.1 11.5-15.5 g/dL Normal 9 [facility] (d) (98103) Comment: Performed By: #### CBC, PT, PTT, BMP ####[place] [address] 0 MCH Entitic mass (RBC) 29.0 26.0-34.0 pG Normal 019 [facility] (44764) Comment: Performed By: #### CBC, PT, PTT, BMP ####[place] [address] 0 MCHC mass conc (RBC) 33.3 30.5-36.0 g/dL Normal 9 [facility] (84482) Comment: Performed By: #### CBC, PT, PTT, BMP ####[place] [address] 0 MCV Entitic volume (RBC) 87.1 80.0-100.0 fL Normal [facility] (35659) Comment: Performed By: #### CBC, PT, PTT, BMP ####[place] [address] 0 Platelet mean volume 9.9 9.0-12.7 fL Normal 9 [facility] (97478) Entitic volume (Bld) Comment: Performed By: #### CBC, PT, PTT, BMP ####[facility] [address] [place] [address] 0 Platelets #/vol (Bld) 236 150-400 k/uL Normal 07-30-19 19 [facility] (40118) Comment: Performed By: #### CBC, PT, PTT, BMP ####[facility] [address] [place] [address] 0 RBC #/vol (Bld) 4.87 3.90-5.20 m/uL Normal 07-29-2018 [facility] (79916) Comment: Performed By: #### CBC, PT, PTT, BMP ####[facility] [address] [place] [address] 0 WBC #/vol (Bld) 6.61 3.70-11.00 k/uL Normal 07-29-2018 [facility] (87801) Comment: Performed By: #### CBC, PT, PTT, BMP ####[facility] [address] [place] [address] 0 case mgt init asses on 2018-07-29 CASE MGT INIT HNO ID: [id number] Normal 019 [facility] Author: Mary Ann (Rn) CHAPARRITA Cox ([id number]) Service: Care Management Author Type: Registered Nurse Type: Care Mgt Initial Assessment Filed: 07/29/2018 4:28 PM Note Text: CARE MANAGEMENT: ASSESSMENT AND DISCHARGE PLAN SERVICE DATE: 07/29/2018 SERVICE TIME: 3:45 PM PRIMARY CARE PHYSICIAN: Alaina Erickson MD ADMISSION STATUS: Observation Needs Prior to Discharge: Home Care Order MEDICAL: Patient/Ehs Specialist Stated Goals: To have reduction in symptoms Health Insurance: [employer] PLUS [employer] Medicare Health Issues Impacting Discharge Plan: Newly diagnosed migr melba Last Admission Date: none Is this Within the Past 30 days? No Advance Directive: Current Advance Directive: None Recruitment Intern Attempted to Assist with AD Completion: Yes Action: Patient Unwilling Health Literacy: 1. How often do you need to have someone help you when you r ead instructions, pamphlets, or other written material from your doctor or pharmacy? Never - 1 2. How confident are you filling out medical forms by yourse lf? Extremely - 1 If Patient scores > 3 on either question, the following inte rventions were put into place: Patient did not score > 3 FUNCTIONAL AND COGNITIVE/BEHAVIORAL PRIOR TO ADMISSION: Baseline Mental Status: Alert AND Oriented, Person, Place , Time and Situation Functional Status: Independent Does Patient Currently Receive Any Community Services or [facility] e Care? None Equipment Prior to Admission: None Has the Patient Been in a Nursing Home Facility in the [place] 30 days? 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 No Caregiver Nee ded Patient's transition needs and plan for meeting these needs: yes Does the patient have an acute stroke diagnosis, or has the patient had a stroke during this admission? No Medication Adherence: I am convinced of the importance of my prescription medicati on: Agree completely - 0 I worry that my prescription medication will do more harm th an good to me Disagree completely - 0 I feel financially burdened by my iyd-ei-emcnhi expenses for my prescription medication: Disagree completely - 0 Patient is categorized as low risk < 2 Are you interested in bedside delivery of your medications? No Food Concerns: In the Last Month, Have You had Trouble Getting Food? No tro uble getting food During the Last Month, Have You Worried Whether Your Food Wo uld Run Out Before You Had Enough Money to Buy More? No Is the Patient Psychosocially Complex? No ASSESSMENT AND PLAN: Medical Needs: 2 or more chronic diseases Psychosocial Needs: None FREEDOM OF CHOICE EXPLAINED: Yes patient Financial Disclosure Provided The patient and/or family has been given the Provider List: Yes Provider List: Home Care Preference: [facility] POTENTIAL TRANSITION PLANS Home Home OT/PT TCC met with pt at bedside. Pt lives at home alone, normally independent with all ADLs, works, drives. OT recs for Home OT, pt amenab le. Given HHC list, referral placed per FOC, F2F in. Will have confirm ed SOC on discharge. Family to transport. SIGNATURE: Mary Ann Cox RN PATIENT NAME: Romain Bailey DATE: July 29, 2018 TIME: 3:45 PM PAGER/CONTACT #: [phone] basic metabolic panl on 2018-07-29 Anion gap molar conc 13 9-18 mmol/L Normal [address] [place] [address] ([id number]) Comment: Performed By: #### CBC, BMP #### [place] [phone] #### HBA1C, LIPB #### [facility] [address] [place] [phone] Calcium mass conc 8.9 8.5-10.5 mg/dL Normal 07-29-2018 [facility] (30414) Comment: Performed By: #### CBC, BMP #### [place] [phone] #### HBA1C, LIPB #### [facility] [address] [place] [phone] Chloride molar conc 104 98-110 mmol/L Normal 07-29-2018 [facility] (20092) Comment: Performed By: #### CBC, BMP #### [place] [phone] #### HBA1C, LIPB #### [facility] [address] [place] [phone] CO2 molar conc 25 23-32 mmol/L Normal 07-29-2018 [facility] (12859) Comment: Performed By: #### CBC, BMP #### [place] [phone] #### HBA1C, LIPB #### [facility] [address] [place] [address] Creatinine mass conc 0.62 0.70-1.40 mg/dL Low [address] [place] [address] (93046) Comment: Performed By: #### CBC, BMP #### [place] [phone] #### HBA1C, LIPB #### [facility] [address] [place] [address] eGFR- Amer. >60 >60 Normal 07-29-2018 [facility] (39312) Comment: Performed By: #### CBC, BMP #### [place] [phone] #### HBA1C, LIPB #### [facility] [address] [place] [phone] GFR/1.73 sq M >60 >60 mL/min/{1.73_m2} Normal [address] [place] [address] predicted among (000 00) non-blacks MDRD vol rate/area (S/P/Bld) Comment: Performed By: #### CBC, BMP #### [place] [phone] #### HBA1C, LIPB #### [facility] [address] [place] [address] Glucose mass conc 88 65-100 mg/dL Normal 07-29-2018 [facility] (25713) Comment: Performed By: #### CBC, BMP #### [place] [phone] #### HBA1C, LIPB #### [facility] [address] [place] [phone] Potassium molar conc 3.6 3.5-5.0 mmol/L Normal 9 [facility] (20740) Comment: Performed By: #### CBC, BMP #### [place] [phone] #### HBA1C, LIPB #### [facility] [address] [place] [phone] Sodium molar conc 142 132-148 mmol/L Normal 07-29-2018 [facility] (70069) Comment: Performed By: #### CBC, BMP #### [place] [phone] #### HBA1C, LIPB #### [facility] [address] [place] [phone] Urea nitrogen mass conc 13 8-25 mg/dL Normal 2018 [facility] (63683) Comment: Performed By: #### CBC, BMP #### [place] [phone] #### HBA1C, LIPB #### [facility] [address] [place] [address] Anion gap molar conc 9 9-18 mmol/L Normal [address] [place] [address] (05838) Comment: Performed By: #### CBC, PT, PTT, BMP ####[facility] [address] [place] [address] 0 Calcium mass conc 9.3 8.5-10.2 mg/dL Normal 07-29-2018 [facility] (44977) Comment: Performed By: #### CBC, PT, PTT, BMP ####[facility] [address] [place] [address] 0 Chloride molar conc 105 97-105 mmol/L Normal 07-29-2018 [facility] (07608) Comment: Performed By: #### CBC, PT, PTT, BMP ####[facility] [address] [place] [address] 0 CO2 molar conc 28 22-30 mmol/L Normal 07-29-2018 [facility] (35223) Comment: Performed By: #### CBC, PT, PTT, BMP ####[facility] [address] [place] [address] 0 Creatinine mass conc 0.69 0.58-0.96 mg/dL Normal [address] [place] [address] (62131) Comment: Performed By: #### CBC, PT, PTT, BMP ####[facility] [address] [place] [address] 0 eGFR- Amer. >60 Normal 07-29-2018 [facility] (32951) Comment: Performed By: #### CBC, PT, PTT, BMP ####[facility] [address] [place] [phone] 0 GFR/1.73 sq M predicted >60 mL/min/{1.73_m2} Normal 07-29-2018 [facility] among non-blacks MDRD (55313) vol rate/area (S/P/Bld) Comment: Result Comment: eGFR (Estima nicholas GFR) Units of measure: mL/min/1.73 meters squared eGFR is derived from the ree xpressed MDRD Study equation using the following parameters: serum creatinine, age, gender and race. The creatinine assay has been calibrated to be traceable to IDMS. An eGFR <60 mL/min/1.73m2 fo r >3 months is consistent with chronic kidney disease. Refer to KDOQI guidelines for clinical interpretation. In patients with unstable re nal function, e.g. those with acute kidney injury, the eGFR may not accurately reflect actual GFR. Performed By: #### CBC, PT, PTT, BMP ####[facility] [phone] Glucose mass conc 81 74-99 mg/dL Normal 07-29-2018 [facility] (94596) Comment: Result Comment: The [place] Diabetes Association (ADA) provides guidance for cutoff values for fasting glucose and random glucose. The ADA defines fasting as no caloric intake for at least 8 hours. Fas ting plasma glucose results between 100 to 125 mg/dL indicate increased risk for diabetes (prediabetes). Fasting plasma glucose resul ts greater than or equal to 126 mg/dL meet the criteria for diagnosis of diabetes. In the absence of unequivocal hyperglycemia, results should be confirmed by repeat testing. In a patient with classic s ymptoms of hyperglycemia or hyperglycemic crisis, random plasma glucose results greater than or equal to 200 mg/dL meet the criteria for diagnosis of diabetes. Reference: Standards of [facility] Care in Diabetes 2016, [place] Diabetes Association. Diabetes Care. 2016.39(Suppl 1). Performed By: #### CBC, PT, PTT, BMP ####[facility] [address] [place] [phone] Potassium molar conc 3.6 3.7-5.1 mmol/L Low [address] [place] [address] (64539) Comment: Performed By: #### CBC, PT, PTT, BMP ####[facility] [address] [place] [address] 0 Sodium molar conc 142 136-144 mmol/L Normal 07-29-2018 [facility] (95835) Comment: Performed By: #### CBC, PT, PTT, BMP ####[facility] [address] [place] [address] 0 Urea nitrogen mass conc 17 7-21 mg/dL Normal 2018 [facility] (84504) Comment: Performed By: #### CBC, PT, PTT, BMP ####[facility] [address] [place] [address] 0 aptt on 2018-07-29 aPTT Coag time (Bld) 25.9 23.0-32.4 sec Normal [address] [place] [address] (82493) Comment: Result Comment: Unfractionat ed Heparin Therapeutic Ranges: Standard Heparin Nomogram: 5 3 to 78 seconds (anti-Xa level of 0.3 to 0.7 U/ml) Low Dose/ACS Nomogram: 49 to 67 seconds (anti-Xa level of 0.2 to 0.5 U/ml) Stroke Treatment Nomogram: 4 9 to 67 seconds (anti-Xa level of 0.2 to 0.5 U/ml) Note: The APTT therapeutic r loc has been determined for the current lot of laboratory APTT reagent in use throughout the [facility]. Performed By: #### CBC, PT, PTT, BMP ####[facility] [address] [place] [address] 0 allied health on 14-08-02 [facility] HNO ID: [id number] Normal [address] [place] [address] Author: Tayla (Rt) Myraim Braxton ([id number]) Service: Radiology Author Type: Security Installation Sales Technician Type: Allied Health Filed: 07/29/2018 12:09 PM Note Text: Radiology Service Progress Note PATIENT NAME: Romain Bailey DATE OF SERVICE: July 29, 2018 TIME: 12:08 PM PATIENT IDENTITY VERIFICATION COMPLETED USING TWO (2) METHOD S: Patient confirmed name verbally and ID band matches.. PATIENT GENDER DATA: Female. status: : No status: NO. PATIENT RELEVANT IMPLANT DATA REVIEWED: Yes RADIOLOGY DEPARTMENT: MR; Exam(s) Completed: Head: Routine B rain PERIPHERAL IV DATA: Not applicable SIGNED BY: RT Osmar July 29, 2018 12:08 PM [facility] HNO ID: [id number] Normal [address] [place] [address] Author: Maame Ortega) MIGDALIA Bhat ([id number]) Service: Radiology Author Type: Clinical Security Installation Sales Technician Type: Allied Health Filed: 07/29/2018 12:03 AM Note Text: Radiology Service Progress Note DATE OF SERVICE: July 29, 2018 TIME: 12:03 AM PATIENT IDENTITY VERIFICATION COMPLETED USING TWO (2) METHOD S: Patient confirmed name verbally and ID band matches.. PATIENT GENDER DATA: Female. status: : No status: N/A PATIENT RELEVANT IMPLANT DATA REVIEWED: Not Applicable ALLERGIES: Reviewed and unchanged CONTRAST ALLERGY: NO. EXAM: CT -CONTRAST INDUCED NEPHROPATHY RISK FACTORS: Patient age > 60 years CREATININE: Creatinine Date Value Ref Range Status 07/28/2018 0.69 0.58 - 0.96 mg/dL Final 04/06/2018 0.64 0.58 - 0.96 mg/dL Final 03/17/2017 0.75 0.58 - 0.96 mg/dL Final eGFR-All Other Races Date Value Ref Range Status 07/28/2018 >60 . Final Comment: eGFR (Estimated GFR) Units of measure: mL/min/1.73 meters sq uared eGFR is derived from the reexpressed MDRD Study equation usi ng the following parameters: serum creatinine, age, gender and race. The crea tinine assay has been calibrated to be traceable to IDMS. An eGFR <60 mL/min/1.73m2 for >3 months is consistent with c hronic kidney disease. Refer to KDOQI guidelines for clinical interpretati on. In patients with unstable renal function, e.g. those with ac minto kidney injury, the eGFR may not accurately reflect actual GFR. eGFR- Date Value Ref Range Status 07/28/2018 >60 Final P.O.C.T. RESULTS: N/A July 29, 2018 TREATMENT: N/A PERIPHERAL IV DATA: Inpatient - refer to LDA documentation RADIOLOGY DEPARTMENT: CT; Exam(s) Completed: Brain , CTA Bra in and CTA Neck SIGNATURE: MIGDALIA Mcarthur PATIENT NAME: Romain cho DATE: July 29, 2018 TIME: 12:03 AM progress on 2018-06 PROGRESS HNO ID: [id number] Normal 07-18-2018 [place] Author: Alaina Erickson [facility] Service: ? [place] Author Type: Physician ([id number]) Type: Progress Notes Filed: 07/18/2018 1:50 PM Note Text: CHIEF COMPLAINT Patient presents with: [facility] follow up HISTORY OF PRESENT ILLNESS Romain Bailey is a 68 year old female who presents here to [facility] for hospital discharge follow up. Presented to [facility] ED on 07/02/18 for vertigo-like symptoms with associated headache, difficulty b alancing, and nausea. Due to consideration of stroke, patient was admitted to the hospital for further evaluation. She was evaluated via CT, MRI, and MRA which were negative f or stroke. States she was told that symptoms may have been related to c omplex migraine. Has a follow-up appointment scheduled with neurolo gy. A heart murmur was discovered. The echo showed valvular reflux. Foot drop Patient has a chronic foot drop to her left side. Brace is b othering her. She is to see [facility] Seeing a burglary investigator (Dr. Mayberry); last visit 06/20/18. Environmental allergies Frequent dry eyes for which she has ophthalmic drops. [facility] Also takes Flonase and Claritin for allergies. Past, family and social history reviewed. PAST MEDICAL HISTORY PAST MEDICAL HISTORY Diagnosis Date - Arthropathy, unspecified, site unspecified - Asthma - Back pain - Colon polyps 2013 - Diverticulitis 2000 - Environmental allergies - GERD (gastroesophageal reflux disease) - Hyperlipidemia lifestyle controlled - Hypertension - IBS (irritable bowel syndrome) - Migraine - Obesity PAST SURGICAL HISTORY Procedure Laterality Date - COLONOSCOP W/ OR W/O BRSH SPEC 05/29/2018 Colonoscopy - COLONOSCOPY AND POLYPECTOMY 12/03/2013 tubular adenoma, hyperplastic polyp; repeat due in 5y - DEBRIDE SKIN AND SUBQ TISSU 05/15/07 Debridement infected moira cyst upper mid back - PAST SURGICAL HISTORY OF 1984 metal removed from right tibial area - PAST SURGICAL HISTORY OF DANDC - REMOVAL GALLBLADDER ~2003 Cholecystectomy laparoscopic - TOTAL ABDOM HYSTERECTOMY 1999 MAURICE/BSO-pain, no abnormal paps ALLERGIES Adhesive Tape (Rosins); Bactrim Ds [Sulfamethoxazole-Trimethoprim]; Bee Sting; Darvon [Propoxyp hene Hcl]; Prednisone MEDICATIONS verapamil SR (CALAN SR, ISOPTIN SR) 240 mg CR tablet TAKE 1 TABLET BY MOUTH EVERYDAY AT BEDTIME benzonatate (TESSALON PERLES) 100 mg capsule Take 2 capsules by mouth three times daily as needed. fluticasone-salmeterol (ADVAIR DISKUS) 100-50 mcg/dose dsdv Inhale 1 Puff as instructed twice daily. RINSE AND GARGLE MOUTH WITH WATER AFTER EACH USE. pantoprazole DR (PROTONIX) 20 mg tablet Take 1 tablet by robert th daily before breakfast. Take on empty stomach, 1/2 hr before meal. albuterol HFA (VENTOLIN HFA) 90 mcg/actuation inhaler Inhale 2 Puffs as instructed every 6 hours as needed. EPINEPHrine (AUVI-Q) 0.3 mg/0.3 mL auto-injector Inject 0.3 mL intramuscularly as needed. atorvastatin (LIPITOR) 20 mg tablet TAKE 1 TABLET BY MOUTH E FOR CHOLESTEROL CYCLOSPORINE OPHTHALMIC Use 1 Drop in eyes twice daily. Both eyes. fluticasone (FLONASE) 50 mcg/actuation nasal spray Use 2 Spr ays in each nostril once daily. SUMAtriptan (IMITREX) 50 mg tablet Take 1 tablet by mouth as needed (at onset of severe headache). May repeat in 2 hours if necessar y. loratadine (CLARITIN) 10 mg tablet Take 1 tablet by mouth on ce daily as needed. FOR ALLERGY SYMPTOMS Nebulizer NEBULIZER FOR HOME USE. DX: J45.20 albuterol (PROVENTIL) 2.5 mg /3 mL (0.083 %) nebulizer solut ion Use 3 mL via nebulizer every 4 hours as needed for Wheezing/Shortness of Breath. Use over 5-15minutes. ammonium lactate (LAC-HYDRIN) 12 % lotion Apply 1 applicatio n to affected area as needed for Dry Skin (arms). GLUC BARR/CHONDRO BARR A/VIT C/MN (GLUCOSAMINE 1500 COMPLEX ORAL ) Take 1 tablet by mouth once daily. FAMILY HISTORY Problem Relation Age of Onset - None Mother from fall - Diabetes Father - Ischemic Heart Disease Father d. [place] - Ischemic Heart Disease Maternal Grandfather d. 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 [employer]. 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 REVIEW OF SYSTEMS GI: (+) nausea Neurologic: (+) headache, balance difficulty PHYSICAL EXAMINATION BP 149/75 (BP Site: Left Arm, BP Position: Sitting, BP Cuff Size: Regular Adult) Pulse 70 Temp 36.7 ?C (98 ?F) Resp 16 Ht 167. 6 cm (5' 6) Wt 79.9 kg (176 lb 1.6 oz) BMI 28.42 kg/m? General: Alert, well developed, well nourished, no distress, pleasant and cooperative. Heart: Regular rate and rhythm. Normal S1 and S2. 1/6 systol ic murmurs. No rubs, or gallops. Lungs: Clear to auscultation bilaterally. No respiratory dis tress. No wheezes, rales, or rhonchi. Abdomen: Soft, non-tender, no distention Extremities: Feet/ankles without edema, posterior tibial pul ses full and symmetrical Neurologic: Patellar and brachioradialis reflexes +2 and sym metric. Negative Romberg's. Health Maintenance: BP CONTROLLED (<130/80) due on 1969 MAMMOGRAM due on 06/26/2017 PNEUMOVAX AGE 65 AND OVER WITH 5YR LOOKBACK(1) due on 2018 ANNUAL PCP TEAM CHRONIC DISEASE VISIT due on 05/15/2019 DIABETES SCREEN due on 04/06/2021 LIPID SCREEN due on 04/06/2023 COLORECTAL CANCER SCREENING,SEE MODIFIER due on 05/30/2023 DTAP,TDAP,TD(2 - Td) due on 08/11/2025 BONE DENSITY Completed ADULT PREVNAR-13 Completed INFLUENZA Completed HEPATITIS C SCREENING Completed Data Reviewed Hospital records - Echocardiogram was unremarkable - Cholesterol good - CT Head, MRA Head negative Assessment/Plan: (Z09) Hospital discharge follow-up (primary encounter diagno sis) Comment: Hospitalized on 07/02. Plan: As below. 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 Worked up extensively while hospitalized with no evidence of stroke. Plan: Imitrex 50 mg one tablet as needed - Follow up with neurology as scheduled (Z91.09) Environmental allergies Comment: Frequent dry eyes. Plan: fluticasone (FLONASE) 50 mcg/actuation nasal spray Restasis 0.5% ophthalmic solution (M21.372) Foot drop, left, chronic Comment: Brace bothering the patient. Plan: Follow up with podiatry, smalltalk developer. Signed Prescriptions Disp Refills atorvastatin (LIPITOR) 20 mg tablet 90 tablet 3 Sig: Take 1 tablet by mouth once daily. KIKO: No SUMAtriptan (IMITREX) 50 mg tablet 6 tablet 5 Sig: Take 1 tablet by mouth as needed (at onset of severe he adache). May repeat in 2 hours if necessary. KIKO: No fluticasone (FLONASE) 50 mcg/actuation nasal spray 1 Bottle 11 Sig: Use 2 Sprays in each nostril once daily. KIKO: No cycloSPORINE (RESTASIS) 0.05 % ophthalmic emulsion Sig: Use 1 Drop in both eyes twice daily. Both eyes. loratadine (CLARITIN) 10 mg tablet 30 tablet 11 Sig: Take 1 tablet by mouth once daily. RTO: After specialty evaluation. Scribe Attestation: By signing my name below, IErasmo, attest that t his documentation has been prepared under the direction and in t he presence of Paul Erickson M.D. Electronically Signed: Rachael Rosado. July 18 11:23 AM. Provider Attestation: Alaina Harper MD, personally performed the services albin cribed in this documentation. All medical record entries made by the scribe were at my direction and in my presence. I have reviewed the chart and discharge instructions (if applicable) and agree that the record refle cts my personal performance and is accurate and complete. Katelyn jean Signed: Alaina Erickson MD. July 18, 2018 1:43 PM cnov on 2018-07-18 CNOV Office Visit (FPWADS) Normal 07-19-19 19 [place] [facility] ROMAIN BAILEY ([id number]) 1950 [facility] Date Time Provider Department ([id number]) 07/18/18 10:40 AM ALAINA ERICKSON During your visit today, we recorded the following informati on about you: Temperature Pulse Respiration Blood pressure 98 degrees 70/minute 16/minute 149/75 Weight Height 79.9 kg 1.676 m Alaina Erickson MD 07/18/2018 1:50 PM Signed CHIEF COMPLAINT Patient presents with: [facility] follow up HISTORY OF PRESENT ILLNESS Romain Bailey is a 68 year old female who presents [facility] today for hospital discharge follow up. Presented to [facility] ED on 07/02/18 for vertigo-like symptoms with associated headache, difficulty balancing, and nausea. Due to consideration of stroke, patient was admitted to the [facility] for further evaluation. She was evaluated via CT, MRI, and MRA which wer e negative for stroke. States she was told that symptoms may have been related to comple x migraine. Has a follow-up appointment scheduled with kelly panchal. A heart murmur was discovered. The echo showed valvular reflux. Foot drop Patient has a chronic foot drop to her left side . Brace is bothering her. She is to see Ravi pimentel Seeing a burglary investigator (Dr. Mayberry); last visit 06/20/18. Environmental allergies Frequent dry eyes for which she has ophthalmic drops. From [facility] Also takes Flonase and Claritin for allergies. Past, family and social history reviewed. PAST MEDICAL HISTORY PAST MEDICAL HISTORY Diagnosis Date - Arthropathy, unspecified, site unspecified - Asthma - Back pain - Colon polyps 2013 - Diverticulitis 2000 - Environmental allergies - GERD (gastroesophageal reflux disease) - Hyperlipidemia lifestyle controlled - Hypertension - IBS (irritable bowel syndrome) - Migraine - Obesity PAST SURGICAL HISTORY Procedure Laterality Date - COLONOSCOP W/ OR W/O BRSH SPEC 05/29/2018 Colonoscopy - COLONOSCOPY AND POLYPECTOMY 12/03/2013 tubular adenoma, hyperplastic polyp; repeat due in 5y - DEBRIDE SKIN AND SUBQ TISSU 05/15/07 Debridement infected moira cyst upper mid back - PAST SURGICAL HISTORY OF 1984 metal removed from right tibial area - PAST SURGICAL HISTORY OF DANDC - REMOVAL GALLBLADDER ~2003 Cholecystectomy laparoscopic - TOTAL ABDOM HYSTERECTOMY 1999 MAURICE/BSO-pain, no abnormal paps ALLERGIES Adhesive Tape (Rosins); Bactrim Ds [Barr lfamethoxazole-Trimethoprim]; Bee Sting; Darvon [Propoxyphene Hcl]; Prednisone MEDICATIONS verapamil SR (CALAN SR, ISOPTIN SR) 240 mg CR tablet TAKE 1 TABLET BY MOUTH EVERYDAY AT BEDTIME benzonatate (TESSALON PERLES) 100 mg capsule Take 2 capsul es by mouth three times daily as needed. fluticasone-salmeterol (ADVAIR DISKUS) 100-50 mcg/dose dsdv Inhale 1 Puff as instructed twice daily. RINSE AND GARGLE MOUTH WITH WATER AF TER EACH USE. pantoprazole DR (PROTONIX) 20 mg tablet Take 1 tablet by m outh daily before breakfast. Take on empty stomach, 1/2 hr before meal. albuterol HFA (VENTOLIN HFA) 90 mcg/actuation inhaler Inhale 2 Puffs as instructed every 6 hours as needed. EPINEPHrine (AUVI-Q) 0.3 mg/0.3 mL auto- injector Inject 0.3 mL intramuscularly as needed. atorvastatin (LIPITOR) 20 mg tablet TAKE 1 TABLET BY MOUTH E VERY DAY FOR CHOLESTEROL CYCLOSPORINE OPHTHALMIC Use 1 Drop in eyes twice daily. Both eyes. fluticasone (FLONASE) 50 mcg /actuation nasal spray Use 2 Sprays in each nostril once daily. SUMAtriptan (IMITREX) 50 mg tablet Take 1 tablet by mouth as needed (at onset of severe headache). May repeat in 2 hours if necessary. loratadine (CLARITIN) 10 mg tablet Take 1 tablet by mouth once daily as needed. FOR ALLERGY SYMPTOMS Nebulizer NEBULIZER FOR HOME USE. DX: J45.20 albuterol (PROVENTIL) 2.5 mg /3 mL (0.083 %) nebulizer solution Use 3 mL via nebulizer every 4 hours as needed for Wheezing/Shortne ss of Breath. Use over 5-15minutes. ammonium lactate (LAC-HYDRIN) 12 % lotio n Apply 1 application to affected area as needed for Dry Skin (arms). GLUC BARR/CHONDRO BARR A/VIT C/MN (GLUCOSAMI NE 1500 COMPLEX ORAL) Take 1 tablet by mouth once daily. FAMILY HISTORY Problem Relation Age of Onset - None Mother from fall - Diabetes Father - Ischemic Heart Disease Father d. [place] - Ischemic Heart Disease Maternal Grandfather d. 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 REVIEW OF SYSTEMS GI: (+) nausea Neurologic: (+) headache, balance difficulty PHYSICAL EXAMINATION BP 149/75 (BP Site: Left Arm, BP Position: Sitting, BP Cuff Size: Regular Adult) Pulse 70 Temp 36.7 ?C (98 ?F) Resp 16 Ht 167. 6 cm (5' 6) Wt 79.9 kg (176 lb 1.6 oz) BMI 28.42 kg/m? General: Alert, well developed, well nourished, no distress, pleasant and cooperative. Heart: Regular rate and rhythm. Normal S1 and S2. 1/6 systol ic murmurs. No rubs, or gallops. Lungs: Clear to auscultation bilaterally . No respiratory distress. No wheezes, rales, or rhonchi. Abdomen: Soft, non-tender, no distention Extremities: Feet/ankles without edema, posterior tibial pul ses full and symmetrical Neurologic: Patellar and brachioradialis reflexes +2 a nd symmetric. Negative Romberg's. Health Maintenance: BP CONTROLLED (<130/80) due on 1969 MAMMOGRAM due on 06/26/2017 PNEUMOVAX AGE 65 AND OVER WITH 5YR LOOKBACK(1) due on 2018 ANNUAL PCP TEAM CHRONIC DISEASE VISIT due on 05/15/2019 DIABETES SCREEN due on 04/06/2021 LIPID SCREEN due on 04/06/2023 COLORECTAL CANCER SCREENING,SEE MODIFIER due on 05/30/2023 DTAP,TDAP,TD(2 - Td) due on 08/11/2025 BONE DENSITY Completed ADULT PREVNAR-13 Completed INFLUENZA Completed HEPATITIS C SCREENING Completed Data Reviewed Hospital records - Echocardiogram was unremarkable - Cholesterol good - CT Head, MRA Head negative Assessment/Plan: (Z09) Hospital discharge follow-up (primary encounter diagno sis) Comment: Hospitalized on 07/02. Plan: As below. 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 Worked up extensi vely while hospitalized with no evidence of stroke. Plan: Imitrex 50 mg one tablet as needed - Follow up with neurology as scheduled (Z91.09) Environmental allergies Comment: Frequent dry eyes. Plan: fluticasone (FLONASE) 50 mcg/actuation nasal spray Restasis 0.5% ophthalmic solution (M21.372) Foot drop, left, chronic Comment: Brace bothering the patient. Plan: Follow up with podiatry, smalltalk developer. Signed Prescriptions Disp Refills atorvastatin (LIPITOR) 20 mg tablet 90 tablet 3 Sig: Take 1 tablet by mouth once daily. KIKO: No SUMAtriptan (IMITREX) 50 mg tablet 6 tablet 5 Sig: Take 1 tablet by mouth as needed (at onset of severe he adache). May repeat in 2 hours if necessary. KIKO: No fluticasone (FLONASE) 50 mcg/actuation nasal spray 1 Bottle 11 Sig: Use 2 Sprays in each nostril once daily. KIKO: No cycloSPORINE (RESTASIS) 0.05 % ophthalmic emulsion Sig: Use 1 Drop in both eyes twice daily. Both eyes. loratadine (CLARITIN) 10 mg tablet 30 tablet 11 Sig: Take 1 tablet by mouth once daily. RTO: After specialty evaluation. Scribe Attestation: By signing my name below, I, jazzy Rosado ttest that this documentation has been prepared under the direction and in the prese nce of Paul Erickson M.D. Electronically Signed: Rachael Rosado. July 18 9 11:23 AM. Provider Attestation: IAlaina MD, personally performed the services albin cribed in this documentation. All medical record entries made by the scribe were at my direction and in my presence. I have reviewed the chart and discharge instructions (if applicable) and agree that the record ref lects my personal performance and is accurate and complete. Electronically Sig ailyn: Alaina Erickson MD. July 18, 2018 1:43 PM Referring Provider: ALAINA ERICKSON [[id number]] Allergies As of Date: 07/18/2018 Noted Allergy Reaction ADHESIVE TAPE (ROSINS) 12/05/2016 2 - Rash BACTRIM DS (SULFAMETHOXAZOLE-TRIM*12/29/2014 10 - Anaphylaxi s Comments: Difficulty breathing, fever, chills BEE STING 08/28/2012 10 - Anaphylaxis DARVON (PROPOXYPHENE HCL) 05/15/2007 PREDNISONE 03/07/2016 8 - GI Upset Date Reviewed: 07/18/2018 Reviewed by: Kristine Serra Ma - Fully Assessed Reason for Visit: [facility] follow up [Other] Primary Visit Diagnosis:Complicated migraine [G43.109] Other Visit Diagnoses:Hospital discharge follow-up [Z09] Environmental allergies [Z91.09] Foot drop, left [M21.372] Hyperlipidemia, mixed [E78.2] Order(s):atorvastatin (LIPITOR) 20 mg tabletTake 1 tablet by mouth once daily.Disp: 90 tabletRfl: 3 SUMAtriptan (IMITREX) 50 mg tabletTake 1 tablet by mouth as needed (at onset of severe headache). May repeat in 2 hours if necessary.Disp: 6 tabletRfl: 5 fluticasone (FLONASE) 50 mcg/actuation nasal sprayUse 2 Spra ys in each nostril once daily.Disp: 1 BottleRfl: 11 cycloSPORINE (RESTASIS) 0.05 % ophthalmic emulsionUse 1 Drop in both eyes twice daily. Both eyes.Disp: Rfl: loratadine (CLARITIN) 10 mg tabletTake 1 tablet by mouth onc e daily.Disp: 30 tabletRfl: 11 Prescriptions as of 07/18/2018 Sig: ATORVASTATIN 20 MG TABLET Take 1 tablet by mouth once d* SUMATRIPTAN 50 MG TABLET Take 1 tablet by mouth as nee* FLUTICASONE PROPIONATE 50 MCG* Use 2 Sprays in each nostril * VERAPAMIL ER (SR) 240 MG TABL* TAKE 1 TABLET BY MOUTH EVERYD * BENZONATATE 100 MG CAPSULE Take 2 capsules by mouth thre* FLUTICASONE 100 MCG-SALMETERO* Inhale 1 Puff as instructed t * PANTOPRAZOLE 20 MG TABLET,DEL* Take 1 tablet by mouth daily * ALBUTEROL SULFATE HFA 90 MCG/* Inhale 2 Puffs as instructed * EPINEPHRINE 0.3 MG/0.3 ML INJ* Inject 0.3 mL intramuscularly * COMPOUNDED PRESCRIPTION NEBULIZER FOR HOME USE. DX: * ALBUTEROL SULFATE 2.5 MG/3 ML* Use 3 mL via nebulizer every * CYCLOSPORINE 0.05 % EYE DROPS* Use 1 Drop in both eyes twice * LORATADINE 10 MG TABLET Take 1 tablet by mouth once d* AMMONIUM LACTATE 12 % LOTION Apply 1 application to affect* GLUCOSAMINE 1500 COMPLEX ORAL Take 1 tablet by mouth once d* Problem List As Of Date 07/18/2018 Noted Resolved Sebaceous cyst [L72.3] INVALID FOR*04/16/2012 Environmental allergies [Z91.09] Asthma [J45.909] More... Arthropathy, unspecified, site unspecified [M12* Essential hypertension [I10] More... IBS (irritable bowel syndrome) [K58.9] GERD (gastroesophageal reflux disease) [K21.9] More... Migraine [G43.909] More... Diverticulitis [K57.92] Hyperlipidemia, mixed [E78.2] More... Fracture of finger, middle or proximal phalanx,*INVALID FOR* History of colon polyps [Z86.010] Chronic pain of right knee [M25.561, G89.29] INVALID FOR* Primary osteoarthritis of right knee [M17.11] INVALID FOR* BPPV (benign paroxysmal positional vertigo) [H8*INVALID FOR* Bee sting allergy [Z91.030] INVALID FOR* Bilateral low back pain with bilateral sciatica*INVALID FOR* More... Calculus of kidney [N20.0] INVALID FOR* More... LLQ pain [R10.32] INVALID FOR* Prescriptions ordered this encounter Disp Refills Start End ATORVASTATIN 20 MG TABLET 90 t* 3 07/18/2018 Route: ORAL Sig: Take 1 tablet by mouth once daily. SUMATRIPTAN 50 MG TABLET 6 ta* 5 07/18/2018 Route: ORAL Sig: Take 1 tablet by mouth as needed (at onset of severe he adache). May repeat in 2 hours if necessary. FLUTICASONE PROPIONATE 50 MCG/ACTUAT* 1 Timur* 11 07/18/2018 Route: EACH NOSTRIL Sig: Use 2 Sprays in each nostril once daily. CYCLOSPORINE 0.05 % EYE DROPS IN A D* 07/18/2018 Class: Med Update Route: BOTH EYES Sig: Use 1 Drop in both eyes twice daily. Both eyes. LORATADINE 10 MG TABLET 30 t* 11 07/18/2018 Route: ORAL Sig: Take 1 tablet by mouth once daily. Medications Discontinued During This Encounter loratadine (CLARITIN) 10 mg tablet 30 t* 11 04/25/2016 019 Route: ORAL Sig: Take 1 tablet by mouth once daily as needed. FOR ALLERG Y SYMPTOMS Disc: Reason for discontinue is not on file. atorvastatin (LIPITOR) 20 mg tablet 90 t* 1 12/06/20172018 Sig: TAKE 1 TABLET BY MOUTH EVERY DAY FOR CHOLESTEROL Disc: Reason for discontinue is not on file. SUMAtriptan (IMITREX) 50 mg tablet 6 ta* 2 05/29/2016 9 Route: ORAL Sig: Take 1 tablet by mouth as needed (at onset of severe headache). May repeat in 2 hours if necessary. Disc: Reason for discontinue is not on file. fluticasone (FLONASE) 50 mcg/actuati* 1 Timur* 11 06/02/201607/18 Route: EACH NOSTRIL Sig: Use 2 Sprays in each nostril once daily. Disc: Reason for discontinue is not on file. CYCLOSPORINE OPHTHALMIC 03/28/2016 07/18/2018 Class: Historical Med Route: OPHTHALMIC Sig: Use 1 Drop in eyes twice daily. Both eyes. Disc: Reason for discontinue is not on file. Letter Text Encounter Status:Closed by PAUL ERICKSON MD on 07/18/18 progress on 2018-06 PROGRESS HNO ID: [id number] Normal 07-16-2018 [facility] Author: Tameka Rasmussen RN [place] ([id number]) Service: ? Author Type: ? Type: Progress Notes Filed: 07/16/2018 9:25 AM Note Text: Per Dr. Mayberry Romain was provided with a lace up ankle br chapis, size M, and instructed/educated in its application, wear, and care. All questions were answered, and patient was able to demonstrate competenc e with the necessary skills to utilize the above equipment. Patient sig ailyn Kerwin PPA. Brace billed to Kerwin. Tameka Rasmussen RN cnnurse on CNNURSE Nurse Visit (PODIWS) [place] [address] [place] [address] [facility] ROMAIN BAILEY ([id number]) 1950 [facility] Date Time Provider Department ([id number]) 07/16/18 9:00 AM NURSE/[facility] POD[facility] During your visit today, we recorded the following informati on about you: Tameka Rasmussen RN 07/16/2018 9:25 AM Signed Per Jaime Elainea was provided with a lace up an kle brace, size M, and instructed/educated in its application, wear, and care. All questions were answered, and patient was able to demonstrate competence w ith the necessary skills to utilize the above equipment. Patient signed Kerwin PPA. Brace billed to Kerwin. Tameka Rasmussen RN Referring Provider: NA MAYBERRY [[id number]] Allergies As of Date: 07/16/2018 Noted Allergy Reaction ADHESIVE TAPE (ROSINS) 12/05/2016 2 - Rash BACTRIM DS (SULFAMETHOXAZOLE-TRIM*12/29/2014 10 - Anaphylaxi s Comments: Difficulty breathing, fever, chills BEE STING 08/28/2012 10 - Anaphylaxis DARVON (PROPOXYPHENE HCL) 05/15/2007 PREDNISONE 03/07/2016 8 - GI Upset Date Reviewed: 06/20/2018 Reviewed by: Joann Hernandez Ma - Fully Assessed Primary Visit Diagnosis:Posterior tibial tendonitis, left [M 76.822] Other Visit Diagnosis:Chronic pain of left ankle [M25.572, G 89.29] Prescriptions as of 07/16/2018 Sig: VERAPAMIL ER (SR) 240 MG TABL* TAKE 1 TABLET BY MOUTH EVERYD * BENZONATATE 100 MG CAPSULE Take 2 capsules by mouth thre* FLUTICASONE 100 MCG-SALMETERO* Inhale 1 Puff as instructed t * PANTOPRAZOLE 20 MG TABLET,DEL* Take 1 tablet by mouth daily * ALBUTEROL SULFATE HFA 90 MCG/* Inhale 2 Puffs as instructed * EPINEPHRINE 0.3 MG/0.3 ML INJ* Inject 0.3 mL intramuscularly * ATORVASTATIN 20 MG TABLET TAKE 1 TABLET BY MOUTH EVERY * AMMONIUM LACTATE 12 % LOTION Apply 1 application to affect* CYCLOSPORINE OPHTHALMIC Use 1 Drop in eyes twice ellie* FLUTICASONE PROPIONATE 50 MCG* Use 2 Sprays in each nostril * SUMATRIPTAN 50 MG TABLET Take 1 tablet by mouth as nee* LORATADINE 10 MG TABLET Take 1 tablet by mouth once d* COMPOUNDED PRESCRIPTION NEBULIZER FOR HOME USE. DX: * ALBUTEROL SULFATE 2.5 MG/3 ML* Use 3 mL via nebulizer every * GLUCOSAMINE 1500 COMPLEX ORAL Take 1 tablet by mouth once d* Problem List As Of Date 07/16/2018 Noted Resolved Sebaceous cyst [L72.3] INVALID FOR*04/16/2012 Environmental allergies [Z91.09] Asthma [J45.909] More... Arthropathy, unspecified, site unspecified [M12* Essential hypertension [I10] More... IBS (irritable bowel syndrome) [K58.9] GERD (gastroesophageal reflux disease) [K21.9] More... Migraine [G43.909] More... Diverticulitis [K57.92] Hyperlipidemia, mixed [E78.2] More... Fracture of finger, middle or proximal phalanx,*INVALID FOR* History of colon polyps [Z86.010] Chronic pain of right knee [M25.561, G89.29] INVALID FOR* Primary osteoarthritis of right knee [M17.11] INVALID FOR* BPPV (benign paroxysmal positional vertigo) [H8*INVALID FOR* Bee sting allergy [Z91.030] INVALID FOR* Bilateral low back pain with bilateral sciatica*INVALID FOR* More... Calculus of kidney [N20.0] INVALID FOR* More... LLQ pain [R10.32] INVALID FOR* Encounter Status:Closed by TAMEKA RASMUSSEN RN on 07/16/18 c[facility] Normal 07-03-2018 [place] [facility] ROMAIN BAILEY ([id number]) 1950 F [place] Date Time Provider Department ([id number]) 07/03/18 ALAINA ERICKSON THAI During your visit today, we recorded the following informati on about you: Kristine Serra Ma 07/03/2018 1:52 PM Signed RECEIVED FROM [facility] ER 07/02/2018 FOR DIZZINESS AND OFF BALANC E WITH TROUBLE WALKING AND CT BRAIN WITHOUT CONTRAST Kristine Serra Ma 07/04/2018 9:42 AM Signed RECEIVED MRI BRAIN W/O CONTRAST FROM [facility] 07/03/2018 NORMAL F INDINGS ECHO 07/03/2018 ESTIMATED EJECTION FRACTION 75 % Kristine Serra Ma 07/04/2018 1:49 PM Signed RECEIVED MRA neck without contrast from [facility] 07/03/2018 Findings were all with in normal limits Alessandra Figueroa Ma 07/05/2018 10:57 AM Signed RECEIVED MRA OF HEAD W/O CONTRAST FROM [facility] 07/03/2018 FINDINGS INDICATED A 2MM ANEURYSM IS TATYANA PECTED ARISING FROM THE RIGHT INTERNAL CAROTID ARTERY Allergies As of Date: 07/03/2018 Noted Allergy Reaction ADHESIVE TAPE (ROSINS) 12/05/2016 2 - Rash BACTRIM DS (SULFAMETHOXAZOLE-TRIM*12/29/2014 10 - Anaphylaxi s Comments: Difficulty breathing, fever, chills BEE STING 08/28/2012 10 - Anaphylaxis DARVON (PROPOXYPHENE HCL) 05/15/2007 PREDNISONE 03/07/2016 8 - GI Upset Date Reviewed: 06/20/2018 Reviewed by: Joann Hernandez Ma - Fully Assessed Reason for Visit: [facility] ER 07/02/2018 [Other] Prescriptions as of 07/03/2018 Sig: VERAPAMIL ER (SR) 240 MG TABL* TAKE 1 TABLET BY MOUTH EVERYD * BENZONATATE 100 MG CAPSULE Take 2 capsules by mouth thre* FLUTICASONE 100 MCG-SALMETERO* Inhale 1 Puff as instructed t * PANTOPRAZOLE 20 MG TABLET,DEL* Take 1 tablet by mouth daily * ALBUTEROL SULFATE HFA 90 MCG/* Inhale 2 Puffs as instructed * EPINEPHRINE 0.3 MG/0.3 ML INJ* Inject 0.3 mL intramuscularly * ATORVASTATIN 20 MG TABLET TAKE 1 TABLET BY MOUTH EVERY * AMMONIUM LACTATE 12 % LOTION Apply 1 application to affect* CYCLOSPORINE OPHTHALMIC Use 1 Drop in eyes twice ellie* FLUTICASONE PROPIONATE 50 MCG* Use 2 Sprays in each nostril * SUMATRIPTAN 50 MG TABLET Take 1 tablet by mouth as nee* LORATADINE 10 MG TABLET Take 1 tablet by mouth once d* COMPOUNDED PRESCRIPTION NEBULIZER FOR HOME USE. DX: * ALBUTEROL SULFATE 2.5 MG/3 ML* Use 3 mL via nebulizer every * GLUCOSAMINE 1500 COMPLEX ORAL Take 1 tablet by mouth once d* Problem List As Of Date 07/03/2018 Noted Resolved Sebaceous cyst [L72.3] INVALID FOR*04/16/2012 Environmental allergies [Z91.09] Asthma [J45.909] More... Arthropathy, unspecified, site unspecified [M12* Essential hypertension [I10] More... IBS (irritable bowel syndrome) [K58.9] GERD (gastroesophageal reflux disease) [K21.9] More... Migraine [G43.909] More... Diverticulitis [K57.92] Hyperlipidemia, mixed [E78.2] More... Fracture of finger, middle or proximal phalanx,*INVALID FOR* History of colon polyps [Z86.010] Chronic pain of right knee [M25.561, G89.29] INVALID FOR* Primary osteoarthritis of right knee [M17.11] INVALID FOR* BPPV (benign paroxysmal positional vertigo) [H8*INVALID FOR* Bee sting allergy [Z91.030] INVALID FOR* Bilateral low back pain with bilateral sciatica*INVALID FOR* More... Calculus of kidney [N20.0] INVALID FOR* More... LLQ pain [R10.32] INVALID FOR* Encounter Status:Closed by KRISTINE SERRA MA on 07/03/18 pt ed on 2018-05-29 PT ED HNO ID: [id number] Normal 05-29-2018 [facility] Author: Elise StrongRn) CHAPARRITA Santillan ([id number]) Service: ? Author Type: Registered Nurse Type: Patient Education Filed: 05/29/2018 11:33 AM Note Text: POST OP LEARNING RESPONSE INSTRUCTION PROVIDED TO: Patient METHOD OF INSTRUCTION: Teach Back done Individual instruction Written instruction - handouts Verbal instruction PATIENT / FAMILY RESPONSE: Verbalizes understanding of: POST -OPERATIVE INSTRUCTIONS-Correct actions to take to reduce postoperative complications SYMPTOM MANAGEMENT-Correct actions to take to manage symptom s associated with his/her disease/illness WORSENING CONDITION-Signs and symptoms of a worsening condit ion that warrant a call to the physician FOLLOW-UP PLAN: Patient instructed to call with any further issues SUPPLEMENTAL MATERIAL: None REFERRAL (RECOMMENDATION): None Electronically Signed By: Elise Santillan RN In Department : [facility] ENDOSCOPY PT ED HNO ID: [id number] Normal 05-29-2018 [facility] Author: Kristine StrongRnRosie Yancey RN ([id number]) Service: Nursing Author Type: Registered Nurse Type: Patient Education Filed: 05/29/2018 9:50 AM Note Text: PRE OP LEARNING ASSESSMENT PROCEDURE/SURGERY: SURGERY: Colonoscopy READINESS TO LEARN COGNITIVE ABILITY: Alert and oriented MOTIVATION TO LEARN: Interested FAMILY SUPPORT: High - Very involved in pt care PATIENT LEARNS BEST BY: Written Instruction - Hand-outs Verbal Instruction FACTORS AFFECTING LEARNING: None PHYSICAL LIMITATIONS AFFECTING LEARNING: None Electronically Signed By: Kristine Yancey RN In Department: [facility] ENDOSCOPY nursing prog on 201 10-30-02 Protein HNO ID: [id number] Normal 05-29-2018 [facility] Author: Elise StrongRn) CHAPARRITA Santillan [facility] conc Service: ? ([id number]) Author Type: Registered Nurse Type: Nursing Progress Note Filed: 05/29/2018 11:51 AM Note Text: Nursing Progress Note Patient Name: Romain Bailey Patient Location: [facility] @Pt dressed. States, Can you just give me the discharge ins tructions and my friend can go get the car? Pt alert, oriented x 3. Aware friend should stay the night. Pt smiling and no pain. Given jenn pa d per request. This note was completed by: Elise Santillan RN Protein HNO ID: [id number] Normal 05-29-2018 [facility] Author: Kristine StrongRn) CHAPARRITA Yancey [facility] conc Service: Nursing ([id number]) Author Type: Registered Nurse Type: Nursing Progress Note Filed: 05/29/2018 9:50 AM Note Text: Nursing Progress Note Patient Name: Romain Bailey Patient Location: [facility] pt ready for OR, call light in reach, friend to bedside. This note was completed by: Kristine Yancey RN history physical on 2018-05-29 HISTORY HNO ID: [id number] Normal 05-29-2018 [place] PHYSICAL Author: [facility] Service: General Surgery ([id number]) Author Type: Physician Type: HANDP Filed: 05/29/2018 10:17 AM Note Text: HISTORY AND PHYSICAL ? Romain Bailey 1950 ? REFERRING PHYSICIAN: Alaina Erickson MD ? CHIEF COMPLAINT: Diverticulitis ? HPI: The patient is a 68 year old female referred for endosc opy. Romain notes left lower quadrant pain. She is noted this pain for a pproximately 1 day and presented to her primary care physician's office o n April 04. She had laboratory studies on April 06 which demonstrated a normal white blood cell count and unremarkable compress a metabolic panel . She denies fever, chills, or other difficulties. She notes that she has a history of constipation with the degree of sluggish bowels. ? She had a colonoscopy in [address] Hernandez for change in timur wel habits. This demonstrated 2 small polyps for which 5 year follow-up colonoscopy was recommended ? The patient notes no history of upper GI complaints. ? ? ? The patient is being seen by me today at the request of Dr. Alaina Erickson MD for my opinion and advice regarding left lower qu adrant tenderness. ? ? PAST?MEDICAL?HISTORY PAST MEDICAL HISTORY Diagnosis Date - Arthropathy, unspecified, site unspecified ? - Asthma ? - Back pain ? - Colon polyps 2013 - Diverticulitis 2000 - Environmental allergies ? - GERD (gastroesophageal reflux disease) ? - Hyperlipidemia ? ? lifestyle controlled - Hypertension ? - IBS (irritable bowel syndrome) ? - Migraine ? - Obesity ? ? ? PAST?SURGICAL?HISTORY PAST SURGICAL HISTORY Procedure Laterality Date - COLONOSCOPY AND POLYPECTOMY ? 12/03/2013 ? tubular adenoma, hyperplastic polyp; repeat due in 5y - DEBRIDE SKIN AND SUBQ TISSU ? 05/15/07 ? Debridement infected moira cyst upper mid back - PAST SURGICAL HISTORY OF ? 1984 ? metal removed from right tibial area - PAST SURGICAL HISTORY OF ? ? DANDC - REMOVAL GALLBLADDER ? ~2003 ? Cholecystectomy laparoscopic - TOTAL ABDOM HYSTERECTOMY ? 1999 ? MAURICE/BSO-pain, no abnormal paps ? ? ? CURRENT?MEDICATIONS ? Current Outpatient Prescriptions: fluticasone-salmeterol (ADVAIR DISKUS) 100-50 mcg/dose dsdv Inhale 1 Puff as instructed twice daily. RINSE AND GARGLE MOUTH WITH WATER AFTER EACH USE. pantoprazole DR (PROTONIX) 20 mg tablet Take 1 tablet by daily before breakfast. Take on empty stomach, 1/2 hr before meal. albuterol HFA (VENTOLIN HFA) 90 mcg/actuation inhaler Inhale 2 Puffs as instructed every 6 hours as needed. EPINEPHrine (AUVI-Q) 0.3 mg/0.3 mL auto-injector Inject 0.3 mL intramuscularly as needed. verapamil SR (CALAN SR, ISOPTIN SR) 240 mg CR tablet Take 1 tablet by mouth daily at bedtime. atorvastatin (LIPITOR) 20 mg tablet TAKE 1 TABLET BY MOUTH E VERY DAY FOR CHOLESTEROL ammonium lactate (LAC-HYDRIN) 12 % lotion Apply 1 applicatio n to affected area as needed for Dry Skin (arms). CYCLOSPORINE OPHTHALMIC Use 1 Drop in eyes twice daily. Both eyes. fluticasone (FLONASE) 50 mcg/actuation nasal spray Use 2 Spr ays in each nostril once daily. SUMAtriptan (IMITREX) 50 mg tablet Take 1 tablet by mouth as needed (at onset of severe headache). May repeat in 2 hours if necessar y. loratadine (CLARITIN) 10 mg tablet Take 1 tablet by mouth on ce daily as needed. FOR ALLERGY SYMPTOMS Nebulizer NEBULIZER AND SUPPLIES FOR HOME USE. DX: J45.909. Use as directed every 6 hours as needed for 12 months. Nebulizer NEBULIZER FOR HOME USE. DX: J45.20 albuterol (PROVENTIL) 2.5 mg /3 mL (0.083 %) nebulizer solut ion Use 3 mL via nebulizer every 4 hours as needed for Wheezing/Shortness of Breath. Use over 5-15minutes. GLUC BARR/CHONDRO BARR A/VIT C/MN (GLUCOSAMINE 1500 COMPLEX ORAL ) Take 1 tablet by mouth once daily. ? No current facility-administered medications for this visit. ? ALLERGIES: Adhesive Tape (Rosins); Bactrim Ds [Sulfamethoxazole-Trimethoprim]; Bee Sting; Darvon [Propoxyp hene Hcl]; Prednisone ? PERSONAL HISTORY: SOCIAL?HISTORY Social History Marital status: Single Spouse name: Years of education: Number of children: 4 ? 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 Social History Main Topics Smoking status: Never Smoker ? Smokeless tobacco: Never Used Alcohol use: No Drug use: No Social History Narrative 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 [employer]. 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 ? ? FAMILY HISTORY: FAMILY?HISTORY FAMILY HISTORY Problem Relation Age of Onset - None Mother ? ? from fall - Diabetes Father ? - Ischemic Heart Disease Father ? ? d. [place] - Ischemic Heart Disease Maternal Grandfather ? ? d. [place] while holding her at 4mo - Blindness Brother ? ? ? REVIEW OF SYMPTOMS: The review of systems data was entered by the nurse and revi ewed by me ? Nursing Notes: Georgina Judy SIERRA 04/12/2018 3:23 PM Signed REVIEW OF SYSTEMS: General: The patient NOTES fatigue, denies weight loss, elias es weight gain, denies feeling hot, and denies feelings of cold . Eyes: The patient NOTES glaucoma, denies eye injury/surgery, wears glasses or contacts. Ear/Nose/Throat: The patient NOTES allergies, NOTES hayfever , denies ear infections, and denies bloody noses. Cardiovascular: The patient denies chest pain, denies heart disease, NOTES high blood pressure,denies cardiac stent, denies prior heart attack, denies irregular heart beat, NOTES high cholesterol, denies poor circulation, denies heart failure, other cardiac issues, den ies claudication, denies cold feet, denies peripheral arterial s tent. Respiratory: The patient denies tuberculosis, NOTES pneumoni a, denies frequent cough, denies pulmonary embolism, denies eduard rtness of breath, and denies coughing up blood. Gastrointestinal: The patient denies difficulty swallowing, NOTES acid reflux, denies ulcers, denies vomiting, denies jaundice /hepatitis, denies gallbladder problems, denies black or tarry stools, d enies hemorrhoids, denies bleeding from rectum, NOTES diverticulit is, NOTES constipation, NOTES diarrhea, denies loss of stool control, and denies hernias. Kidney/Bladder: The patient denies kidney stones, denies uri ne infections, and denies bloody urine. Skin: The patient denies a history of skin cancer, denies bleeding/changing moles, and denies a history of skin rash. Neurologic: The patient denies a history of epilepsy/convuls ions, denies headaches, denies head/spinal injuries, and denies st roke/TIA. Psychiatric: The patient denies psychiatric medications, den ies depression, and denies voices, denies substance abuse. Endocrine: The patient denies thyroid disorders, denies diab etes, and denies hormonal problems. Hematologic: The patient denies a history of bruising, denie s bleeding, and denies anemia, denies blood clots. Infections: The patient denies a history of measles and mump s, denies rheumatic fever, and denies sexually transmitted dise ases. Musculoskeletal: The patient denies back pain/injury, denies back problems, notes sciatica, NOTES knee/foot trouble, NOTES art hritis, or denies gout. ? ? When was patient's last Mammogram screening? 2017 ? Last Colonoscopy: 5 YEARS AGO hernandez ? Georgina Kim LPN PHYSICAL EXAMINATION: ? General: The patient is 68 year old female, well nourished, well hydrated in no acute distress. The patient is oriented to time, place , and person. ? VITALS: Blood pressure 150/80, pulse 72, weight 78.9 kg (174 lb). Body mass index is 28.08 kg/m?. ? HEENT: Normal cephalic, ataumatic, pupils are equally round, sclera are anicteric, mucous membranes are moist, oropharynx is clear. Neck has no masses, asymmetry or lymphadenopathy. Thyroid is unremarkabl e. ? Respiratory: Clear to auscultation and percussion. Normal re spiratory excursion and pattern. ? Cardiac: Examination is regular rate and rhythm. ? Abdominal exam: Soft, nontender except for mild left lower q uadrant tenderness, with no palpable masses. No hepatosplenomegaly. No palpable hernias. ? Rectal exam: exam deferred ? Extremities: no clubbing, cyanosis or edema. No adenopathy. ? Other: ? LABORATORY VALUES: As Noted ? RADIOLOGIC STUDIES: As Noted ? Assessment IMPRESSION: Left lower quadrant pain, questionable history o f diverticulitis, prior history of colon polyps ? PLAN: I plan to obtain a CT scan of the abdomen and pelvis. Once t his is complete and if she does not have recurrent diverticulitis, I plan to perform lower endoscopy. We discussed the risks and benefits of the planned endoscopy. I have informed the patient that complica tions can occur including failure to complete the endoscopy and perfor ation. The patient had the opportunity to ask questions concerning the planned endoscopy. My staff has also explained the procedure to the patient in understandable terms and has given the patient printed mater ial concerning the procedure. The patient freely consents to surgery. ? I plan to use golytely bowel preparation for endoscopy ? ? ? Diagnoses: (R10.32) LLQ pain (primary encounter diagnosis) (R10.32) Left lower quadrant pain ? My findings have been communicated to Dr. Alaina Erickson MD via shared medical record. This note will be forwarded to Dr. Alaina robles MD. Return to Clinic: The patient is instructed to follow-up wit h me after evaluating CT scan to schedule colonoscopy. ? Joshua Benjamin MD anes preop on 05-29 ANES PREOP HNO ID: [id number] Normal 05-29-2018 [facility] Author: Jose A Knwoles ([id number]) Service: Anesthesiology Author Type: Anesthesiologist Type: Anesthesia PreOp Filed: 05/29/2018 10:28 AM Note Text: ANESTHESIOLOGY DAY OF SURGERY NOTE SERVICE DATE: 05/29/2018 SERVICE TIME:12.23 : 1950 Procedure(s) (LRB): COLONOSCOPY (N/A) Surgeon(s): Joshua Benjamin Estimated body mass index is 28.25 kg/m? as calculated from the following: Height as of this encounter: 167.6 cm (5' 6). Weight as of this encounter: 79.4 kg (175 lb). Most recent hematocrit and potassium results: Hematocrit 43.2 04/06/2018 Potassium 3.7 04/06/2018 ANES DOS/PREOP NOTE: Vitals: 05/29/18 0934 BP: 170/80 Pulse: 77 Resp: 16 Temp: 36.8 ?C (98.2 ?F) TempSrc: Temporal Artery SpO2: 94% Weight: 79.4 kg (175 lb) Height: 167.6 cm (5' 6) ACTIVE PROBLEM LIST Environmental Allergies Asthma Arthropathy, Unspecified, Site Unspecified Essential Hypertension Ibs (Irritable Bowel Syndrome) Gerd (Gastroesophageal Reflux Disease) Migraine Diverticulitis Hyperlipidemia, Mixed Fracture of Finger, Middle Or Proximal Phalanx, Closed History of Colon Polyps Chronic Pain of Right Knee Primary Osteoarthritis of Right Knee Bppv (Benign Paroxysmal Positional Vertigo) Bee Sting Allergy Bilateral Low Back Pain With Bilateral Sciatica Calculus of Kidney Llq Pain PAST MEDICAL HISTORY Diagnosis Date - Arthropathy, unspecified, site unspecified - Asthma - Back pain - Colon polyps 2013 - Diverticulitis 2000 - Environmental allergies - GERD (gastroesophageal reflux disease) - Hyperlipidemia lifestyle controlled - Hypertension - IBS (irritable bowel syndrome) - Migraine - Obesity PAST SURGICAL HISTORY Procedure Laterality Date - COLONOSCOPY AND POLYPECTOMY 12/03/2013 tubular adenoma, hyperplastic polyp; repeat due in 5y - DEBRIDE SKIN AND SUBQ TISSU 05/15/07 Debridement infected moira cyst upper mid back - PAST SURGICAL HISTORY OF 1984 metal removed from right tibial area - PAST SURGICAL HISTORY OF DANVT - REMOVAL GALLBLADDER ~2003 Cholecystectomy laparoscopic - TOTAL ABDOM HYSTERECTOMY 1999 MAURICE/BSO-pain, no abnormal paps FAMILY HISTORY Problem Relation Age of Onset - None Mother from fall - Diabetes Father - Ischemic Heart Disease Father d. [place] - Ischemic Heart Disease Maternal Grandfather d. [place] while holding her at 4mo - Blindness Brother - Heart Attack Brother Social History: Social History Tobacco Use - Smoking status: Never Smoker - Smokeless tobacco: Never Used Substance Use Topics - Alcohol use: No - Drug use: No No current facility-administered medications on file prior t o encounter. Current Outpatient Medications on File Prior to Encounter: pantoprazole DR (PROTONIX) 20 mg tablet Take 1 tablet by robert th daily before breakfast. Take on empty stomach, 1/2 hr before meal. verapamil SR (CALAN SR, ISOPTIN SR) 240 mg CR tablet Take 1 tablet by mouth daily at bedtime. atorvastatin (LIPITOR) 20 mg tablet TAKE 1 TABLET BY MOUTH E DAY FOR CHOLESTEROL CYCLOSPORINE OPHTHALMIC Use 1 Drop in eyes twice daily. Both eyes. fluticasone (FLONASE) 50 mcg/actuation nasal spray Use 2 Spr ays in each nostril once daily. loratadine (CLARITIN) 10 mg tablet Take 1 tablet by mouth on ce daily as needed. FOR ALLERGY SYMPTOMS fluticasone-salmeterol (ADVAIR DISKUS) 100-50 mcg/dose dsdv Inhale 1 Puff as instructed twice daily. RINSE AND GARGLE MOUTH WITH WATER AFTER EACH USE. albuterol HFA (VENTOLIN HFA) 90 mcg/actuation inhaler Inhale 2 Puffs as instructed every 6 hours as needed. EPINEPHrine (AUVI-Q) 0.3 mg/0.3 mL auto-injector Inject 0.3 mL intramuscularly as needed. ammonium lactate (LAC-HYDRIN) 12 % lotion Apply 1 applicatio n to affected area as needed for Dry Skin (arms). SUMAtriptan (IMITREX) 50 mg tablet Take 1 tablet by mouth as needed (at onset of severe headache). May repeat in 2 hours if necessar y. Nebulizer NEBULIZER FOR HOME USE. DX: J45.20 albuterol (PROVENTIL) 2.5 mg /3 mL (0.083 %) nebulizer solut ion Use 3 mL via nebulizer every 4 hours as needed for Wheezing/Shortness of Breath. Use over 5-15minutes. GLUC BARR/CHONDRO BARR A/VIT C/MN (GLUCOSAMINE 1500 COMPLEX ORAL ) Take 1 tablet by mouth once daily. Current Facility-Administered Medications: NaCl 0.9% iv infusion 30 mL/hr INTRAVENOUS CONTINUOUS Jatin d T Cassidy Last Rate: 30 mL/hr at 05/29/18 0951 30 mL/hr at 05/29/18 09 51 Allergies: ALLERGIES Allergen Reactions - Adhesive Tape (Marilou* Rash - Bactrim Ds [Sulfame* Anaphylaxis Difficulty breathing, fever, chills - Bee Sting Anaphylaxis - Darvon [Propoxyphen* - Prednisone GI Upset DOS EXAM: Adequate NPO status: Yes Anesthetic risks, benefits, alternatives, personnel and cons ent discussed: Yes Patient agrees to proceed: Yes Previous Anesthesia: No history of adverse event. Airway Assessment: MP 2; Neck ROM: Full ROM without neurolog ic symptoms; Airway Evaluation: No significant abnormalities Symptoms of Sleep Apnea: None Dentition: Poor dentition Additional Physical Exam: Lungs: Patient health status unchanged since recent history and physical. See history and physical for exam findings. Lungs clear to auscultation. Good diaphragmatic excursion. Cardiac: Patient health status unchanged since recent histor y and physical. See history and physical for exam findings. normal S1 and S2; no rubs, no murmurs, and no gallops Additional Pertinent Findings: N/A Blood Products: Not anticipated for this procedure. Anesthetic Plan: MAC with Sedation Pain Management Plan: Parenteral or Oral ASA Class: 3 Other Medical Problems: None Chronic Beta Ezio medication administered within 24 hours : N/A I have interviewed and examined the patient. I have reviewed the medical record and/or the pre-anesthesia evaluation, pertinent labs, and test results. Significant changes in the patient's condition since the His tory and Physical, not otherwise documented in primary service progre ss notes: No This contains updated information obtained within 48 hours o f Surgery/Procedure. SIGNATURE: Jose A Knowles MD PATIENT NAME: Romain fontenot DATE: May 29, 2018 TIME: 10:28 AM CSN: [id number] anes post on 05-29 ANES POST HNO ID: [id number] Normal 05-29-2018 [facility] Author: Jose A Knowles ([id number]) Service: Anesthesiology Author Type: Anesthesiologist Type: Anesthesia PostOp Filed: 05/29/2018 12:08 PM Note Text: POST ANESTHESIA EVALUATION NOTE SERVICE DATE: 05/29/2018 SERVICE TIME: 12 : 1950 Vitals: 05/29/18 0934 05/29/18 1045 05/29/18 1115 05/29/18 1134 Temp: 36.8 ?C (98.2 ?F) 36.8 ?C (98.2 ?F) 36.5 ?C (97.7 ?F) 36.5 ?C (97.7 ?F) 05/29/18 1100 05/29/18 1115 05/29/18 1121 05/29/18 1134 BP: 147/76 145/75 138/71 153/84 05/29/18 1100 05/29/18 1115 05/29/18 1121 05/29/18 1134 Pulse: 79 78 74 76 05/29/18 1100 05/29/18 1115 05/29/18 1121 05/29/18 1134 Resp: 16 16 14 16 05/29/18 1100 05/29/18 1115 05/29/18 1121 05/29/18 1134 SpO2: 99% 97% 97% 95% Validated Vital Signs: Yes POST ANES STATUS: No apparent anesthetic complications. The patient is appropriately hydrated with stable respiratory and cardiovas cular status. Patient has safe and adequate airway control. The patient henriquez s appropriate pain relief and no significant post operative nausea or vomi ting. The patient has achieved baseline mental status. Intra-Operative Events: No Significant Anesthesia Events Further assessment by Anesthesia Service: None Other Remarks: SIGNATURE: Jose A Knowles MD PATIENT NAME: Romain fontenot DATE: May 29, 2018 TIME: 12:08 PM PAGER/CONTACT #: anesthesia nursing prog on 10-30-01 Protein mass conc HNO ID: [id number] Normal [facility] Author: Lucy StrongRn) CHAPARRITA Wilson ([id number]) Service: ? Author Type: Registered Nurse Type: Nursing Progress Note Filed: 05/28/2018 1:52 PM Note Text: PACC Nurse Progress Note History AND Physical: PACC Visit Date: 05/27/18 Original HANDP Date: N/A ED visit Date: N/A Outside HANDP Scanned Date: N/A Labs Within Last 6 Months: CBC: Date 04/06/18-within normal limits BMP/CMP: Date 04/06/18 within acceptable limits Imaging Within Last 12 Months: CT Scan-abdomen Date of test: 04/23/18 See chart Cardiac Testing: N/A Last Menstrual Period: LMP Date: N/A Postmenopausal >1yr: Yes, S/P Hysterectomy: YesBMI Percentile (PEDS): N/A Risk Assessment: N/A Anesthesia Review: N/A Narrative: Per HPI: IBS; Asthma;GERD; Migraine; low back pain Pre-op Considerations: N/A Chart Check: COMPLETED Lucy Wilson RN May 28, 2018 1:50 PM hosp on 2018-05-07 HOSP Patient:Romain Bailey Normal 2018 [facility] ) Height:5' 6(1.676 m) Weight:175 lb (79.379 kg) Outpatient Medications as of 05/29/18: benzonatate (TESSALON PERLES) 100 mg capsule fluticasone-salmeterol (ADVAIR DISKUS) 100-50 mcg/dose dsdv pantoprazole DR (PROTONIX) 20 mg tablet albuterol HFA (VENTOLIN HFA) 90 mcg/actuation inhaler EPINEPHrine (AUVI-Q) 0.3 mg/0.3 mL auto-injector verapamil SR (CALAN SR, ISOPTIN SR) 240 mg CR tablet atorvastatin (LIPITOR) 20 mg tablet ammonium lactate (LAC-HYDRIN) 12 % lotion CYCLOSPORINE OPHTHALMIC fluticasone (FLONASE) 50 mcg/actuation nasal spray SUMAtriptan (IMITREX) 50 mg tablet loratadine (CLARITIN) 10 mg tablet Nebulizer albuterol (PROVENTIL) 2.5 mg /3 mL (0.083 %) nebulizer solut ion GLUC BARR/CHONDRO BARR A/VIT C/MN (GLUCOSAMINE 1500 COMPLEX ORAL ) Admission/Clinic Administered Medications as of 05/29/18: NaCl 0.9% iv infusion Problem List: Environmental allergies [Z91.09] Asthma [J45.909] Arthropathy, unspecified, site unspecified [M12.9] Essential hypertension [I10] IBS (irritable bowel syndrome) [K58.9] GERD (gastroesophageal reflux disease) [K21.9] Migraine [G43.909] Diverticulitis [K57.92] Hyperlipidemia, mixed [E78.2] Fracture of finger, middle or proximal phalanx, closed [IMO0 002] History of colon polyps [Z86.010] Chronic pain of right knee [M25.561, G89.29] Primary osteoarthritis of right knee [M17.11] BPPV (benign paroxysmal positional vertigo) [H81.10] Bee sting allergy [Z91.030] Bilateral low back pain with bilateral sciatica [M54.42, M54 .41] Calculus of kidney [N20.0] LLQ pain [R10.32] Allergies: Adhesive Tape (Rosins) Bactrim Ds [Sulfamethoxazole-Trimethoprim] Bee Sting Darvon [Propoxyphene Hcl] Prednisone Date Verified: 05/29/18 Lab Values No results within the last 30 days for the following basenam es: K,HCT Progress Notes ([facility]): Tameka Rasmussen RN 05/23/2018 8:47 AM Signed ----- Message from Na Mayberry sent at 05/23/2018 7:51 A M EDT ----- Please make arrangments to file an appeal for patient afo that was declined. Insurance reports that they did not receive prior records. JEANNA Hilario RN 05/23/2018 8:49 AM Signed Called [employer] at [phone] and spoke to Fernando regarding appeal. Fernando requested clinicals be faxed to [phone]. Case reference number [id number]. Last OV note faxed as requested. Will await outcome. Na Mayberry DPM 05/27/2018 5:11 PM Signed Thank you Na Mayberry DPM Progress Notes ([facility]): Makenzie To Ma 05/16/2018 6:35 AM Signed ----- Message from Aranza (Giovanna) Maria E sent at 05/17/19 6:32 AM EDT ----- Flu swab was negative. Follo w instructions given by provider at visit, f/u with PCP if symptoms persist or worsen. Aranza Sanderson APRN .GIOVANNA To Ma 05/16/2018 8:04 AM Signed Pt notified xr tib/fib left 2 view on 2016-10-09 XR Tib/Fib Left 2 Exam Date/Time:10/09/2016 Normal 10-09-2016 [facility] View 11:51 EDTReason for Health System Exam:Pain, ([id number]) TraumaticReportLeft tibia fibula 2 viewsCLINICAL HISTORY: Hit in the leg with a folding tableTECHNIQUE: AP and lateral viewsFINDINGS: Fracture or dislocation was not identified. Soft tissues arepreserved. The ankle and knee are grossly anatomic.SUMMARY:No acute injury. FINAL REPORT Dictated: 10/09/2016 12:32 pm Steven Bean DO WSigned (Electronic Signature): 10/09/2016 12:32 pmSigned by: Steven Bean DO Technologist: TRLuisa Encounters Date Type Reason Provider Location 10-09-2016 - Emergency department [facility] [place] Facility[facility] 10-09-2016 patient visit [facility] Payers Payer Name Policy Number Location [facility] ([id number]) The following information is from the original human readable contentNo Payer Records FoundNo Payer Records FoundNo Payer Records FoundNo Payer Records FoundNo Payer Records Found Summary Purpose Family History No Family History Records FoundNo Family History Records FoundNo Family History Records FoundNo Family History Records Found Advance Directives No Advanced Directives Records FoundNo Advanced Directives Records FoundNo Advanced Directives Records FoundNo Advanced Directives Records Found Additional Source Comments FOR RECORDS PERTAINING TO PATIENTS WHO ARE OR HAVE BEEN ENROLLED IN A CHEMICAL DEPENDENCY/SUBSTANCE ABUSE PROGRAM, SOME INFORMATION MAY BE OMITTED. This clinical summary was aggregated from multiple sources. Caution should be exercised in using it in the provision of clinical care. This summary normalizes information from multiple sources, and as a consequence, information in this document may materially changethe coding, format and clinical context of patient data. In addition, data may be omittedin some cases. CLINICAL DECISIONS SHOULD BE BASED ON THE PRIMARY CLINICAL RECORDS. [facility] provides no warranty or guarantee of the accuracy or completeness of information in this document. UNRECOGNIZED CONTENT PROVIDED BELOW FOR UNRECOGNIZED SECTION INFORMATION SOURCE DATE CREATED AUTHOR AUTHOR'S ORGANIZATIO N 08/21/2017 [facility] DATE CREATED AUTHOR AUTHOR'S ORGANIZATIO N 08/04/2018 [facility] DATE CREATED AUTHOR AUTHOR'S ORGANIZATIO N 08/08/2018 [facility] DATE CREATED AUTHOR AUTHOR'S ORGANIZATIO N 07/03/2019 [facility] saadia
== END 2019-07-02 19:53 | disposition home or self-care (01) ==
PROVIDERS: Emergency Provider Emergency Medicine; PCP Family Medicine
DX: S50.02XA Contusion of left elbow, initial encounter (principal); W19.XXXA Unspecified fall, initial encounter; Y93.9 Activity, unspecified; Y92.9 Unspecified place or not applicable; Y99.9 Unspecified external cause status; Z79.01 Long term (current) use of anticoagulants; Z79.899 Other long term (current) drug therapy; Z88.2 Allergy status to sulfonamides; Z88.1 Allergy status to other antibiotic agents; Z90.710 Acquired absence of both cervix and uterus
CPT/HCPCS: 73080; 99283

== ENCOUNTER 2019-09-14 15:21 | Observation (INO) | payer MEDICARE, SELFPAY ==
[2019-09-14] VITALS (13 sets, daily range): BP systolic 104–140; BP diastolic 62–91; PULSE 69–75; RESP 17–29; TEMP 36.9–38.7; O2SAT 90–98; BMI 32.5; BMI 31.1; BMI 31.3
--- NOTE | 2019-09-14 15:46 | EKG12_ITS ---
Test Reason : FEVER Blood Pressure : / mmHG Vent. Rate : 069 BPM Atrial Rate : 069 BPM P-R Int : 166 ms QRS Dur : 080 ms QT Int : 414 ms P-R-T Axes : 046 017 032 degrees QTc Int : 443 ms Normal sinus rhythm Nonspecific T wave abnormality Abnormal ECG Confirmed by MAGGIE ALLEN, KRISTIN ([id number]), map editor DERECK ALBA ([id number]) on 09/17/2019 9:03:15 AM Referred By: VICTOR MANUEL Confirmed By:KRISTIN SERRANO MD
--- NOTE | 2019-09-14 15:48 | ED.VIS.DYS ---
History of Present Illness Chief Complaint: Fever Informant: Patient, EMS Onset: Yesterday Timing: Continuous Quality: - - sob Current Severity: Mild Maximum Severity: Mild Worsened by: Coughing Relieved by: Oxygen Associated Symptoms: Cough, Fever, Sore throat. Negative for: Rhinorrhea Chest Pain: None Narrative: Initially yesterday started having symptoms of a urinary tract infection which she has had before. Then started developing respiratory symptoms during the same day. Patient has a history of asthma, states she started feeling short of breath last night but cannot find her MDI, nor her albuterol for her nebulizer, so has not used any albuterol yesterday or today. She started yesterday with sore throat and cough nonproductive, developed a fever, today it was over 102 here it is over 101. She is having malaise, myalgias, headache. No earache, neck ache, rash. She has chronic low back discomfort that radiates to either lower extremity, she calls it sciatica, it is no different than usual just a little worse. Denies any known history of COVID-19 or known exposures recently. She has had no recent travel, just going to the grocery store and home in the last couple months. She lives alone. She was admitted in April for possible COVID-19, she had a negative test. - Past Medical History (1) Asthma Status: Chronic (2) Atrial fibrillation Status: Chronic (3) CVA (cerebral vascular accident) Status: Chronic (4) GERD (gastroesophageal reflux disease) Status: Chronic (5) HLD (hyperlipidemia) Status: Chronic (6) HTN (hypertension) Status: Chronic (7) MCC current use of anticoagulant Status: Chronic Comment: States that she is on warfarin because she had GI side effects from Eliquis and did not tolerate it (8) TIA (transient ischemic attack) Status: Chronic Past Medical History - Allergies and Home Meds Allergies/Adverse Reactions: Allergies adhesive tape Allergy (Verified 09/14/19 15:59) Rash propoxyphene HCl [From Darvon] Allergy (Verified 09/14/19 15:59) Rash sulfamethoxazole [From Bactrim] Allergy (Verified 09/14/19 15:59) Shortness of breath trimethoprim [From Bactrim] Allergy (Verified 09/14/19 15:59) Shortness of breath venom-honey bee [bee venom (honey bee)] Allergy (Verified 09/14/19 15:59) Anaphylaxis venom-wasp [wasp venom] Allergy (Verified 09/14/19 15:59) Anaphylaxis prednisone Adverse Reaction (Verified 09/14/19 15:59) Diarrhea anything that stings Allergy (Uncoded 09/14/19 15:59) Anaphylaxis banana peppers Allergy (Uncoded 09/14/19 15:59) Hives FIBERGLASS Allergy (Uncoded 09/14/19 15:59) Shortness of breath Surgical History: - - Cholecystectomy, hysterectomy, right mastoid tumor resection. Lives: Alone Smoking Status: Never smoker - Family History Paternal Family History: Family History (Last Reviewed 03/03/19 @ 10:03 by Kristine Schmidt) Father CAD (coronary artery disease) Family History: Reports: Heart Disease Maternal Family History: Family History (Last Reviewed 03/03/19 @ 10:03 by Kristine Schmidt) Father CAD (coronary artery disease) Family History: Reports: Unknown - Patient notes that she does not know any maternal history, mother never went to the doctor. She denies any known history of heart disease, diabetes or cancer. Review of Systems General: Reports: Chills, Fever, Malaise. Denies: Sweats Eyes: Denies: Visual changes - bilaterally, Diplopia ENT: Reports: Sore throat. Denies: Bilateral ear pain, Rhinorrhea Cardiovascular: Denies: Chest pain, Palpitations Respiratory: Reports: Dyspnea, Cough. Denies: Sputum, Orthopnea Gastrointestinal: Denies: Abdominal pain, Nausea, Vomiting, Diarrhea, Melena, Hematochezia Genitourinary: Reports: Dysuria - burning, Frequency, - - urinary urgency. Denies: Hematuria Musculoskeletal: Reports: Myalgias, Back pain - chronic, no new back pains. Denies: Arthralgias, Neck pain, Swelling Skin: Denies: Rash, Wounds Neurological: Reports: Headache. Denies: Weakness, Numbness Physical Exam Vital Signs/Narrative: Vital Signs Temp Pulse Resp BP Pulse Ox 09/14/19 15:35 97 09/14/19 15:32 101.6 F H 71 29 H 104/91 H 90 Inital Vital Signs reviewed: Yes General: Well nourished, Well developed, No Acute Distress Head: Normocephalic, Atraumatic Eyes: Perrl, EOMI ENT: Moist mucous membranes, No rhinorrhea, - - posterior oropharynx clear, symmetric. Negative for: Nasal congestion, Sinus tenderness Neck: Supple, Nontender, No lymphadenopathy, No JVD Cardiovascular: Regular rate, Regular rhythm, Murmur - soft systolic Respiratory: No distress, CTA bilaterally, Chest nontender Abdomen: Soft, Nontender, Nondistended, Normal bowel sounds Back: Nontender, Normal Inspection Extremities: Nontender, No edema. Negative for: Calf Tenderness Skin: Normal color, No rash, No Trauma Neurological: Alert, Oriented x3, Cranial nerves II-XII grossly intact, Normal Strength, Normal Sensation Psychological: Normal affect, Normal Mood Diagnostic/Tx/Re-eval Impressions Chest X-Ray 09/14/19 16:05 IMPRESSION: Hazy infiltrates of the lung bases. Electronically Signed: Jamie Boogie MD at 16:21 EDT , Service support , 09/14/19 16:05 Chest 1 View (Portable) [RAD] Stat Laboratory Tests 09/14/19 09/14/19 09/14/19 Range/Units 17:00 15:52 15:40 WBC (4.4-11.0) K/mm3 RBC (4.2-5.4) M/mm3 Hgb (12.0-15.0) g/dL Hct (37-47) % MCV (81-99) fL MCH (27.0-32.0) pg MCHC (32-36) g/dL RDW Std Deviation (35.1-43.9) fl RDW Coeff of Kahlil (11.6-14.6) % Plt Count (150-450) K/mm3 MPV (6.2-12.0) fl Immature Gran % (Auto) (0.0-0.9) % Neut % (Auto) (47-70) % Lymph % (Auto) (19-41) % Foster % (Auto) (0-10) % Eos % (Auto) (0-5) % Baso % (Auto) (0-1) % Absolute Neuts (auto) (2.0-7.7) X10^3/uL Absolute Lymphs (auto) (0.83-4.51) X10^3/uL Nucleated RBC % (0-5) % Differential Comment PT (11.7-14.9) SECONDS INR Sodium (136-145) mmol/L Potassium (3.5-5.1) mmol/L Chloride (98-107) mmol/L Carbon Dioxide (21.0-32.0) mmol/L Anion Gap (5-15) BUN (7-18) mg/dL Creatinine (0.55-1.02) mg/dL Estim Creat Clear Calc ml/min Est GFR (MDRD) Af Amer (>60) mL/min Est GFR (MDRD) Non-Af (>60) mL/min BUN/Creatinine Ratio (10-20) RATIO Glucose (74-106) mg/dL Lactic Acid 1.1 (0.4-1.9) mmol/L Calcium (8.5-10.1) mg/dL Total Bilirubin (0.20-1.00) mg/dL AST (15-37) U/L ALT (13-56) U/L Alkaline Phosphatase (45-117) U/L Troponin I (<0.045) ng/mL Total Protein (6.4-8.2) g/dL Albumin (3.2-5.0) g/dL Globulin (2.2-4.2) g/dL Albumin/Globulin Ratio (0.9-2.4) RATIO Urine Color Yellow (Yellow) Urine Clarity Cloudy (Clear) Urine pH 5.0 (5.0 - 8.0) Ur Specific [place] 1.020 (1.002-1.030) Urine Protein 15 H (Negative) mg/dl Urine Glucose (UA) Normal (Normal) mg/dl Urine Ketones 5 H (Negative) mg/dl Urine Occult Blood 25 H (Negative) /ul Urine Nitrite Negative (Negative) Urine Bilirubin Negative (Negative) mg/dL Urine Urobilinogen Normal (Normal) mg/dl Ur Leukocyte Esterase 500 H (Negative) /ul Urine RBC 0 SEEN (0-5) /hpf Urine WBC 50-100 SEEN (0-5) /hpf Ur Squamous Epith Cells 0-5 SEEN (5-10) /hpf Urine Bacteria 0 SEEN (None Seen) /hpf Urine Mucus 3+ (<or=2+) /hpf COVID-19 (CATIE) Negative (Not Detect) 07/19/20 07/19/20 07/19/20 Range/Units 15:15 15:15 15:15 WBC 11.2 H (4.4-11.0) K/mm3 RBC 5.05 (4.2-5.4) M/mm3 Hgb 14.2 (12.0-15.0) g/dL Hct 44.5 (37-47) % MCV 88.1 (81-99) fL MCH 28.1 (27.0-32.0) pg MCHC 31.9 L (32-36) g/dL RDW Std Deviation 42.8 (35.1-43.9) fl RDW Coeff of Kahlil 13.4 (11.6-14.6) % Plt Count 256 (150-450) K/mm3 MPV 10.2 (6.2-12.0) fl Immature Gran % (Auto) 0.400 (0.0-0.9) % Neut % (Auto) 92.4 H (47-70) % Lymph % (Auto) 3.8 L (19-41) % Foster % (Auto) 3.0 (0-10) % Eos % (Auto) 0.2 (0-5) % Baso % (Auto) 0.2 (0-1) % Absolute Neuts (auto) 10.4 H (2.0-7.7) X10^3/uL Absolute Lymphs (auto) 0.43 L (0.83-4.51) X10^3/uL Nucleated RBC % 0 (0-5) % Differential Comment PT 19.1 H (11.7-14.9) SECONDS INR 1.7 Sodium 143 (136-145) mmol/L Potassium 3.7 (3.5-5.1) mmol/L Chloride 109 H (98-107) mmol/L Carbon Dioxide 26.0 (21.0-32.0) mmol/L Anion Gap 8 (5-15) BUN 20 H (7-18) mg/dL Creatinine 0.79 (0.55-1.02) mg/dL Estim Creat Clear Calc 50.41 ml/min Est GFR (MDRD) Af Amer 93 (>60) mL/min Est GFR (MDRD) Non-Af 77 (>60) mL/min BUN/Creatinine Ratio 25.3 H (10-20) RATIO Glucose 122 H (74-106) mg/dL Lactic Acid (0.4-1.9) mmol/L Calcium 8.5 (8.5-10.1) mg/dL Total Bilirubin 0.60 (0.20-1.00) mg/dL AST 33 (15-37) U/L ALT 37 (13-56) U/L Alkaline Phosphatase 134 H (45-117) U/L Troponin I < 0.015 (<0.045) ng/mL Total Protein 6.9 (6.4-8.2) g/dL Albumin 3.8 (3.2-5.0) g/dL Globulin 3.1 (2.2-4.2) g/dL Albumin/Globulin Ratio 1.2 (0.9-2.4) RATIO Urine Color (Yellow) Urine Clarity (Clear) Urine pH (5.0 - 8.0) Ur Specific [place] (1.002-1.030) Urine Protein (Negative) mg/dl Urine Glucose (UA) (Normal) mg/dl Urine Ketones (Negative) mg/dl Urine Occult Blood (Negative) /ul Urine Nitrite (Negative) Urine Bilirubin (Negative) mg/dL Urine Urobilinogen (Normal) mg/dl Ur Leukocyte Esterase (Negative) /ul Urine RBC (0-5) /hpf Urine WBC (0-5) /hpf Ur Squamous Epith Cells (5-10) /hpf Urine Bacteria (None Seen) /hpf Urine Mucus (<or=2+) /hpf COVID-19 (CATIE) (Not Detect) - Rhythm Strip Rhythm Strip: Sinus Rhythm Rate: 69 Ectopy: None - EKG Initial EKG Interpretation: Sinus Rhythm, No Acute Injury Pattern, Non-Specific ST Changes - flattening diffusely Treatment - Dyspnea: Oxygen Repeat Evaluation: Improved - Medical Decision Making Patient was short of breath when she arrived with a pulse ox of 90%, simply placing 2 L nasal cannula on her improved her dyspnea to the point where she declined an offer for beta agonist. At 2 L she is at 97%. She was given Tylenol for fever. Her x-ray indicates bibasilar pneumonia. Her symptoms are concerning for COVID-19 so that test was sent and is pending at this time. She lives alone and has been feeling very weak, awaiting urinalysis/urine specimen prior to starting antibiotics. After urine was provided, antibiotics were started which include Rocephin and azithromycin according to the treatment order set for sepsis although the patient does not meet sepsis criteria after the work-up was completed. Her urine is positive for infection I will send for culture as well. Her COVID test came back negative so the patient will be admitted to regular medical surgical floor. ED Disposition - Plan for ED Patient: Disposition: Acute Care Hospital [facility] Diagnosis: Pneumonia, UTI (urinary tract infection), Generalized weakness
[2019-09-14] MEDS: Acetaminophen 500 MG Tablet 1000 MG PO (16:00)
[2019-09-14] MEDS: 0.9% Normal Saline 1,000 ML 125 ML IV (16:00)
--- NOTE | 2019-09-14 16:05 | RAD_ITS ---
STUDY: X-RAY CHEST REASON FOR EXAM: Female, 69 years old. FEVER, DRY PAINFUL COUGH, PARK. TECHNIQUE: Single AP portable view of the chest. COMPARISON: Previous study of May 29, 2019 FINDINGS: development spec leads are present. There are hazy infiltrates at the lung bases. There is no demonstrated pleural abnormality. Normal size heart. Normal mediastinum and gagandeep. Normal visualized pulmonary arteries. Normal visualized aortic arch and descending thoracic aorta. Normal visualized thoracic spine. Normal visualized ribs, clavicles, and shoulders. There is no demonstrated abnormality of the visualized soft tissue structures of the upper abdomen. RAD/Chest 1 View (Portable) IMPRESSION: Hazy infiltrates of the lung bases. Electronically Signed: Jaime Boogie MD at 16:21 EDT , Service support ,
[2019-09-14 16:10] LABS: Absolute Lymphocyte Count 0.43 X10^3/uL (0.83-4.51); Absolute Neutrophil Count 10.4 X10^3/uL (2.0-7.7); Basophil# 0.02 X10^3/uL; Basophil% 0.2 % (0-1); Eosinophil# 0.02 X10^3/uL; Eosinophils% 0.2 % (0-5); Hematocrit 44.5 % (37-47); Hemoglobin 14.2 g/dL (12.0-15.0); Lymphocyte # 0.43 X10^3/ul (4.0); Lymphocyte % 3.8 % (19-41); Mean Corp Hgb Conc 31.9 g/dL (32-36); Mean Corpuscular Hgb 28.1 pg (27.0-32.0); Mean Corpuscular Volume 88.1 fL (81-99); Mean Platelet Vol. 10.2 fl (6.2-12.0); Monocyte# 0.34 X10^3/uL; NRBC Flagged by Analyzer 0 % (0-5); Neutrophil # 10.39 X10^3/uL (2.7-7.7); Neutrophil % 92.4 % (47-70); POSITIVE DIFFERENTIAL YES; Platelet Count 256 K/mm3 (150-450); RBC Distribution Width CV 13.4 % (11.6-14.6); RBC Distribution Width SD 42.8 fl (35.1-43.9); Red Blood Count 5.05 M/mm3 (4.2-5.4); White Blood Count 11.2 K/mm3 (4.4-11.0)
[2019-09-14 16:14] LABS: International Normalized Ratio 1.7; Prothrombin Time (Protime)PT. 19.1 SECONDS (11.7-14.9)
[2019-09-14 16:16] LABS: Differential Indicated SCAN CRITERIA MET
[2019-09-14 16:23] LABS: ALB/GLOB Ratio 1.2 RATIO (0.9-2.4); AST(SGOT) 33 U/L (15-37); Alanine Aminotransfer ALT/SGPT 37 U/L (13-56); Albumin, Serum 3.8 g/dL (3.2-5.0); Alkaline Phosphatase 134 U/L (45-117); Anion Gap 8 (5-15); BUN 20 mg/dL (7-18); BUN/Creat Ratio 25.3 RATIO (10-20); Calcium,Total 8.5 mg/dL (8.5-10.1); Chloride 109 mmol/L (98-107); Creatinine, Serum 0.79 mg/dL (0.55-1.02); EST Glomerular Filtration Rate 77 mL/min (>60); Est Glom Filt Rate - Afr Amer 93 mL/min (>60); Estimated Creatinine Clearance 50.41 ml/min; Globulin 3.1 g/dL (2.2-4.2); Glucose 122 mg/dL (74-106); Potassium 3.7 mmol/L (3.5-5.1); Protein, Total 6.9 g/dL (6.4-8.2); Sodium Level 143 mmol/L (136-145)
[2019-09-14 16:26] LABS: Lactic Acid 1.1 mmol/L (0.4-1.9)
[2019-09-14 17:03] LABS: Bacteria 0 SEEN /hpf (None Seen); Red Blood Cells-Urine 0 SEEN /hpf (0-5)
[2019-09-14 17:05] LABS: Color, Urine Yellow (Yellow); Glucose, Dipstick Normal (Normal); Ketone-Dipstick 5 mg/dl (Negative); Leukocyte Esterase-Dipstick 500 /ul (Negative); Nitrite-Dipstick Negative (Negative); Occult Blood-Urine 25 /ul (Negative); Protein-Dipstick 15 mg/dl (Negative); Urine Bilirubin Dipstick Negative (Negative); Urine Clarity Cloudy (Clear); Urine Urobilinogen Normal (Normal)
[2019-09-14 17:11] LABS: Mucous, Urine 3+ /hpf (<or=2+); Squamous Epithelial Cells - UA 0-5 SEEN /hpf (5-10); White Blood Cells 50-100 SEEN /hpf (0-5)
[2019-09-14 17:15] LABS: Probe Check PASS; Specimen Processing Control PASS
--- NOTE | 2019-09-14 17:49 | HP.PCM_ITS ---
History of Present Illness Date of Admission: 09/14/19 Chief Complaint: Cough, shortness of breath and sore throat for 2 days The patient is a 69 year old F with history of bronchial asthma and recent admission with pneumonia came to ER with shortness of breath, cough, fever and sore throat for 2 days. Patient cough is nonproductive. Short of breath at rest without chest pain. She felt feverish chills and it was 102 Fahrenheit as per EMS and 101.6 Fahrenheit in ER. She denies recent sick contact with s uspected or confirmed COVID-19 or attending large gathering. Denies loss of smell or taste sensation. She has burning micturition, increased frequency urgency for last 2 days. Last UTI was a year ago. Basic labs in the ER shows leukocytosis 11.2 thousand with left shift. INR 1.7. UA is positive of pyuria, WBC 5200 cells, LE 500, negative nitrite. Chest x-ray independently reviewed and shows haziness in bilateral lung bases and periphery but no significant difference from previous chest x-ray of April 2019 at that time she tested negative for COVID-19. Past Medical History Past Medical History (Chronic Problems): Chronic Problems (Last Updated 05/20/19 @ 10:[address] 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) Z79.01 States that she is on warfarin because she had GI side effects from Eliquis and did not tolerate it Atrial fibrillation (Chronic) I48.91 Asthma (Chronic) J45.909 TIA (transient ischemic attack) (Chronic) G45.9 CVA (cerebral vascular accident) (Chronic) I63.9 HTN (hypertension) (Chronic) I10 HLD (hyperlipidemia) (Chronic) E78.5 Migraine (Chronic) G43.909 GERD (gastroesophageal reflux disease) (Chronic) K21.9 Allergies adhesive tape Allergy (Verified 09/14/19 15:59) Rash propoxyphene HCl [From Darvon] Allergy (Verified 09/14/19 15:59) Rash sulfamethoxazole [From Bactrim] Allergy (Verified 09/14/19 15:59) Shortness of breath trimethoprim [From Bactrim] Allergy (Verified 09/14/19 15:59) Shortness of breath venom-honey bee [bee venom (honey bee)] Allergy (Verified 09/14/19 15:59) Anaphylaxis venom-wasp [wasp venom] Allergy (Verified 09/14/19 15:59) Anaphylaxis prednisone Adverse Reaction (Verified 09/14/19 15:59) Diarrhea anything that stings Allergy (Uncoded 09/14/19 15:59) Anaphylaxis banana peppers Allergy (Uncoded 09/14/19 15:59) Hives FIBERGLASS Allergy (Uncoded 09/14/19 15:59) Shortness of breath Home Medications: Ambulatory Orders Medication Instructions Recorded Epi Pen (for allergic rxn) 0.3 mg IM X1 05/04/13 Loratadine [Claritin] 10 mg PO DAILY 05/04/13 Albuterol Sulfate [Ventolin Hfa] 2 puff IH Q6H PRN PRN 12/26/15 Pantoprazole Sodium [Protonix] 20 mg PO DAILY 12/26/15 CycloSPORINE Ophthalmic [Restasis 1 drp EACH EYE BID 03/28/16 Ophthalmic] Meclizine HCl 25 mg PO Q6H PRN 03/28/16 Atorvastatin Calcium [Lipitor] 40 mg PO DAILY 07/02/18 Fluticasone 0.05% [Flonase Nasal 2 spray NASAL DAILY PRN PRN 07/02/18 [place]] Albuterol Aerosols [Ventolin 2.5 mg INHALATION Q4H PRN PRN 12/04/18 Aerosols] amiodarone 200 mg tablet 200 mg PO DAILY #90 tab 12/26/18 metoprolol tartrate 25 mg tablet 12.5 mg PO BID #90 tab 12/26/18 verapamil 240 mg tablet,extended 240 mg PO DAILY #90 tab 12/26/18 release Ondansetron [Zofran] 4 mg PO Q6H PRN 02/10/19 Thiamine Mononitrate (Vit B1) 100 mg PO DAILY 02/10/19 [Vitamin B-1] Acetaminophen [Tylenol Tablet] 650 mg PO Q6H PRN PRN tab 02/12/19 Benzonatate 200 mg PO TID PRN #20 cap 04/26/19 Montelukast [Singulair] 10 mg PO DAILY 09/14/19 Warfarin Sodium 4 mg PO MOWEFR 09/14/19 Warfarin [Coumadin ([facility])] 3 mg PO SUTUTHSA 09/14/19 Surgical History: Surgical History (Last Reviewed 03/03/19 @ 10:03 by Kristine Schmidt) History of cholecystectomy Z90.49 History of total hysterectomy Z90.710 history of mastoid tumor resection Surgical History: - - Cholecystectomy, hysterectomy, right mastoid tumor resection. Psychiatric History: No pertinent psych hx ENVIRONMENTAL SERVICES LEAD History: No pertinent ENVIRONMENTAL SERVICES LEAD history Lives: Alone Smoking Status: Never smoker - *Family History Paternal Family History: Family History (Last Reviewed 03/03/19 @ 10:03 by Kristine Schmidt) Father CAD (coronary artery disease) History Items: Heart Disease Maternal Family History: Family History (Last Reviewed 03/03/19 @ 10:03 by Kristine Schmidt) Father CAD (coronary artery disease) History Items: Unknown - Patient notes that she does not know any maternal history, mother never went to the doctor. She denies any known history of heart disease, diabetes or cancer. Review of Systems Constitutional: Reports: Chills, Fever, Malaise, Weakness, Fatigue HEENT: Denies: Head Aches, Sinus Congestion, Sinus Drainage Cardiovascular: Denies: Chest Pain, Palpitations Respiratory: Reports: Cough, Shortness of Breath, Shortness of breath at rest, Shortness of breath upon exertion. Denies: Sputum production, Wheezing Gastrointestinal: Denies: Abdominal Pain, Diarrhea, Hematemesis, Hematochezia, Nausea, Melena, Vomiting Genitourinary: Reports: Dysuria, Frequency, Incontinence - Chronic urinary incontinence, Urgency Musculoskeletal: Reports: Hand Pain, - - Left foot drop with splint on it. Denies: Joint Pain, Joint Tenderness Skin: Denies: Rash, Wounds Neurological: Reports: Balance problems - Chronic, Incoordination. Denies: F ocal weakness, Numbness, Tingling Psychiatric: Denies: Anxiety, Depression, Homicidal Ideations, Suicidal Ideations Hematologic/ Lymphatic: Denies: Easy Bruising, Easy Bleeding VTE Information - Inpt Only VTE Present on Admission: No VTE Pharm Prophylaxis ordered?: Yes Reason prophylaxis not ordered:: Treatment Not Indicated - Already on Coumadin Patient Problems: Active and Suspected Problems (Last Updated 05/20/19 @ 10:[address] José Luis Gardner MD) Pneumonia (Acute) UTI (urinary tract infection) (Acute) Generalized weakness (Acute) - Physical Exam Vitals/I&O's: Vital Signs Temp Pulse Resp BP Pulse Ox 99.7 F H 70 24 H 140/83 H 98 09/14/19 17:15 09/14/19 17:15 09/14/19 17:15 09/14/19 17:15 09/14/19 17:15 Oxygen Flow Rate (L/min) 2 Oxygen Delivery Method Nasal Cannula Weight: 201 lb 4.513 oz Body Mass Index (BMI) 32.5 General: Alert, Oriented x3, Cooperative HEENT: Atraumatic, PERRLA, EOMI, Normocephalic Oral: No Gingival or Mucosal Lesions/ Ulcerations, Dry Mucosa Neck: Supple, No JVD, Negative Carotid Bruits, - - Mild tenderness over submandibular and thyroid region Lungs: Clear to auscultation, No rales, Diminished - Air entry diminished in bilateral lung bases posteriorly and laterally., Rhonchi - Mild expiratory rhonchi present Cardiovascular: Regular rate, Regular Rhythm, Normal S1, Normal S2, No murmurs Abdomen: Bowel Sounds Present, Soft, Non Tender, Non-Distended Extremities: No edema, Capillary Refill Less than 3 Seconds Skin: No rashes, No breakdown Musculoskeletal: No Tenderness to Palpation of Joints or Extremities, Arthritic Changes, - - Left foot on splint. No history of polio Neurological: Cranial nerves II-XII grossly intact, Deep Tendon Reflexes 2+/4 and Symmetrical, Neuro grossly intact Psych/Mental Status: Normal Affect, Appropriate Laboratory Results 09/14/19 15:15: Sodium 143, Potassium 3.7, Chloride 109 H, Carbon Dioxide 26.0, Anion Gap 8, BUN 20 H, Creatinine 0.79, Estim Creat Clear Calc 50.41, Est GFR (MDRD) Af Amer 93, Est GFR (MDRD) Non-Af 77, BUN/Creatinine Ratio 25.3 H, Glucose 122 H, Calcium 8.5, Total Bilirubin 0.60, AST 33, ALT 37, Alkaline Phosphatase 134 H, Troponin I < 0.015, Total Protein 6.9, Albumin 3.8, Globulin 3.1, Albumin/Globulin Ratio 1.2 09/14/19 15:15: WBC 11.2 H, RBC 5.05, Hgb 14.2, Hct 44.5, MCV 88.1, MCH 28.1, MCHC 31.9 L, RDW Std Deviation 42.8, RDW Coeff of Kahlil 13.4, Plt Count 256, MPV 10.2, Immature Gran % (Auto) 0.400, Neut % (Auto) 92.4 H, Lymph % (Auto) 3.8 L, [place] % (Auto) 3.0, Eos % (Auto) 0.2, Baso % (Auto) 0.2, Absolute Neuts (auto) 10.4 H, Absolute Lymphs (auto) 0.43 L, Nucleated RBC % 0, Differential Comment 09/14/19 15:15: PT 19.1 H, INR 1.7 09/14/19 15:40: Lactic Acid 1.1 09/14/19 15:52: COVID-19 (CATIE) Negative 09/14/19 16:18: Procalcitonin Pending 09/14/19 17:00: Urine Color Yellow, Urine Clarity Cloudy, Urine pH 5.0, Ur Specific [place] 1.020, Urine Protein 15 H, Urine Glucose (UA) Normal, Urine Ketones 5 H, Urine Occult Blood 25 H, Urine Nitrite Negative, Urine Bilirubin Negative, Urine Urobilinogen Normal, Ur Leukocyte Esterase 500 H, Urine RBC 0 SEEN, Urine WBC 50-100 SEEN, Ur Squamous Epith Cells 0-5 SEEN, Urine Bacteria 0 SEEN, Urine Mucus 3+ Current Medications Sodium Chloride () 1,000 mls @ 125 mls/hr IV .Q8H EVANS Last Admin: 09/14/19 16:00 Dose: 125 mls/hr Documented by: Assessment/Plan All Active Problems (Last Updated 05/20/19 @ 10:[address] José Luis Gardner MD) Pneumonia (Acute) UTI (urinary tract infection) (Acute) Generalized weakness (Acute) Community acquired pneumonia (Acute) Suspected 2019 novel coronavirus infection (Acute) The patient is a 69 year old F with history of bronchial asthma and recent admission with pneumonia came to ER with shortness of breath, nonproductive cough, fever and sore throat for 2 days. Patient cough is nonproductive. Short of breath at rest without chest pain. Basic labs in the ER shows leukocytosis 11.2 thousand with left shift. INR 1.7. UA is positive of pyuria, WBC 5200 cells, LE 500, negative nitrite. 1. SIRS (fever, tachypnea and leukocytosis) possible due to asthma exacerbation and UTI: Lactic acid normal. COVID-19 PCR negative. No high risk features for COVID-19. On DuoNeb [id number], albuterol PRN, IV Solu-Medrol, incentive spirometry and chest physiotherapy. Sputum culture ordered. Blood cultures x2 and urine culture ordered. Patient was given IV Rocephin and Zithromax in ED and IV Rocephin continued. 2. Asthma exacerbation probably secondary to viral infection: Respiratory panel ordered. She had rhinovirus positive in March 2019. Rest as mentioned above. Supportive management with Tessalon Perles, fluticasone nasal spray, Singulair, and Claritin. 3. Cystitis/UTI: Patient has dysuria, increased frequency urgency and pyuria on UA. On IV Rocephin as mentioned above. Follow urine culture. 4. Paroxysmal atrial fibrillation: Patient is in normal sinus rhythm. EKG shows normal sinus rhythm with nonspecific ST-T abnormality. QTc interval 443 ms. On amiodarone, verapamil, Coumadin and metoprolol; continued. INR subtherapeutic 1.7. Dose of Coumadin increased to 5 mg daily. Follow INR daily. 5. CVA/TIA, hypertension, dyslipidemia: Home medication regimen. Patient on baby aspirin, statin 6. Other comorbidities include migraine, chronic GERD and mild obesity: Patient complain of mild frontal headache probably acute on chronic sinusitis/allergic rhinitis. Headache characteristic is not consistent with acute migraine headache episode. DVT prophylaxis; on coumadin. Living will/advanced directive/end of life care: Patient does not have living will. Power of assistant district attorney for health is her son and daughter. After discussion of procedures involved with full code, DNR CC arrest and DNR CC, the patient opted for full code Patient does want artificial life support including intubation, tube feed, ventilator and/chest compression, central venous catheter, vasopressor and DC shock if needed. Total time spent in [id number] encounter in discussion of advanced directive 16 minutes Clinical Impression(s) from Imaging Studies Chest X-Ray 09/14/19 16:05 IMPRESSION: Hazy infiltrates of the lung bases. Inpatient E&M: 05019 Init Hosp L3 Procedures: 63334 Advncd Care Plan 30 Min
[2019-09-14] MEDS: 0.9% Normal Saline 1,000 ML 75 ML IV (18:44)
[2019-09-14 18:59] LABS: Magnesium 1.8 mg/dL (1.6-2.6)
[2019-09-14] MEDS: Benzonatate 100 MG Capsule 200 MG PO (19:02)
[2019-09-14] MEDS: Ipratropium/Albuterol Sulfate 3 ML AMPUL.NEB INHALATION ×2 (19:58→23:50)
[2019-09-14] MEDS: Metoprolol Tartrate 25 MG Tablet 12.5 MG PO (21:05)
[2019-09-14] MEDS: Atorvastatin Calcium 40 MG Tablet PO (21:06)
[2019-09-15] VITALS (14 sets, daily range): BP systolic 121–123; BP diastolic 62–71; PULSE 61–88; RESP 16–18; TEMP 36.6–36.9; O2SAT 94–97
[2019-09-15] MEDS: Benzonatate 100 MG Capsule 200 MG PO ×3 (05:11→21:12)
[2019-09-15 06:01] LABS: Absolute Lymphocyte Count 0.66 X10^3/uL (0.83-4.51); Absolute Neutrophil Count 8.8 X10^3/uL (2.0-7.7); Basophil# 0.01 X10^3/uL; Basophil% 0.1 % (0-1); Eosinophil# 0.17 X10^3/uL; Eosinophils% 1.7 % (0-5); Hematocrit 39.5 % (37-47); Hemoglobin 12.4 g/dL (12.0-15.0); Lymphocyte # 0.66 X10^3/ul (4.0); Lymphocyte % 6.8 % (19-41); Mean Corp Hgb Conc 31.4 g/dL (32-36); Mean Corpuscular Hgb 28.1 pg (27.0-32.0); Mean Corpuscular Volume 89.6 fL (81-99); Mean Platelet Vol. 9.7 fl (6.2-12.0); NRBC Flagged by Analyzer 0 % (0-5); Neutrophil # 8.79 X10^3/uL (2.7-7.7); POSITIVE MORPHOLOGY YES; Platelet Count 220 K/mm3 (150-450); RBC Distribution Width CV 13.5 % (11.6-14.6); RBC Distribution Width SD 43.8 fl (35.1-43.9); Red Blood Count 4.41 M/mm3 (4.2-5.4); White Blood Count 9.8 K/mm3 (4.4-11.0)
[2019-09-15 06:07] LABS: International Normalized Ratio 2.2; Prothrombin Time (Protime)PT. 23.6 SECONDS (11.7-14.9)
[2019-09-15 06:15] LABS: Differential Indicated SCAN CRITERIA MET
[2019-09-15 06:33] LABS: Differential Comment SCANNED
[2019-09-15 06:37] LABS: Anion Gap 3 (5-15); BUN 16 mg/dL (7-18); BUN/Creat Ratio 20.4 RATIO (10-20); Calcium,Total 8.2 mg/dL (8.5-10.1); Chloride 109 mmol/L (98-107); Creatinine, Serum 0.78 mg/dL (0.55-1.02); EST Glomerular Filtration Rate 78 mL/min (>60); Est Glom Filt Rate - Afr Amer 94 mL/min (>60); Estimated Creatinine Clearance 50.41 ml/min; Glucose 159 mg/dL (74-106); Potassium 3.8 mmol/L (3.5-5.1); Sodium Level 140 mmol/L (136-145); Thyroid Stim Hormone (TSH) 0.97 uIU/mL (0.358-3.74)
[2019-09-15] MEDS: Ipratropium/Albuterol Sulfate 3 ML AMPUL.NEB INHALATION ×4 (07:16→19:02)
[2019-09-15] MEDS: Acetaminophen 325 MG Tablet 650 MG PO ×3 (08:07→21:12)
[2019-09-15 08:43] LABS: Procalcitonin 0.59 ng/mL (0.00-0.09)
[2019-09-15] MEDS: Ceftriaxone 1 GM/50 ML BAG IV (08:56)
[2019-09-15] MEDS: Amiodarone 200 MG Tablet PO (08:58)
[2019-09-15] MEDS: Loratadine 10 MG Tablet PO (08:58)
[2019-09-15] MEDS: Pantoprazole Sodium 20 MG Tablet PO (08:58)
[2019-09-15] MEDS: Montelukast 10 MG Tablet PO (08:58)
[2019-09-15] MEDS: Verapamil SR 240 MG Tablet PO (08:58)
[2019-09-15] MEDS: Thiamine Hydrochloride 100 MG Tablet PO (08:58)
[2019-09-15] MEDS: Metoprolol Tartrate 25 MG Tablet 12.5 MG PO ×2 (08:59→21:12)
--- NOTE | 2019-09-15 11:57 | PN_ITS ---
Patient Problems: Active and Suspected Problems (Last Updated 05/20/19 @ 10:[address] José Luis Gardner MD) Pneumonia (Acute) UTI (urinary tract infection) (Acute) Generalized weakness (Acute) Reason for Visit: UTI Subjective: Feels well. Less dysuria. Vitals/I&O's: Vital Signs Temp Pulse Resp BP Pulse Ox 36.8 C 86 16 121/62 H 97 09/15/19 09:06 09/15/19 10:57 09/15/19 10:57 09/15/19 09:06 09/15/19 09:06 Oxygen Flow Rate (L/min) 2 Oxygen Delivery Method Nasal Cannula Weight: 87.5 kg Body Mass Index (BMI) 31.1 Intake and Output for Last 24 Hours 09/13/19 09/14/19 09/15/19 23:59 23:59 23:59 Intake Total 654.58 / 654.58 1496.25 / 1496.25 Balance 654.58 / 654.58 1496.25 / 1496.25 General: Alert, No apparent distress HEENT: Atraumatic, Normocephalic Oral: Moist Mucosa, No Gingival or Mucosal Lesions/ Ulcerations Neck: No Nodes, Thyroid Normal Size and Texture Lungs: Clear to auscultation, Normal air movement, No rhonchi, No wheeze Cardiovascular: Regular rate, Regular Rhythm, Normal S1, Normal S2, No murmurs Abdomen: Bowel Sounds Present, Soft, Non Tender, Non-Distended, No Hepato- splenomegaly Extremities: No edema, No Calf Tenderness Skin: No rashes, No breakdown Psych/Mental Status: Normal Affect, Appropriate Microbiology Past 72 Hours 09/14/19 20:00 Mucosa - Nose Respiratory Panel (PCR) - Final Laboratory Results 09/14/19 15:15: Sodium 143, Potassium 3.7, Chloride 109 H, Carbon Dioxide 26.0, Anion Gap 8, BUN 20 H, Creatinine 0.79, Estim Creat Clear Calc 50.41, Est GFR (MDRD) Af Amer 93, Est GFR (MDRD) Non-Af 77, BUN/Creatinine Ratio 25.3 H, Glucose 122 H, Calcium 8.5, Total Bilirubin 0.60, AST 33, ALT 37, Alkaline Phosphatase 134 H, Troponin I < 0.015, Total Protein 6.9, Albumin 3.8, Globulin 3.1, Albumin/Globulin Ratio 1.2 09/14/19 15:15: WBC 11.2 H, RBC 5.05, Hgb 14.2, Hct 44.5, MCV 88.1, MCH 28.1, MCHC 31.9 L, RDW Std Deviation 42.8, RDW Coeff of Kahlil 13.4, Plt Count 256, MPV 10.2, Immature Gran % (Auto) 0.400, Neut % (Auto) 92.4 H, Lymph % (Auto) 3.8 L, [place] % (Auto) 3.0, Eos % (Auto) 0.2, Baso % (Auto) 0.2, Absolute Neuts (auto) 10.4 H, Absolute Lymphs (auto) 0.43 L, Nucleated RBC % 0, Differential Comment 09/14/19 15:15: PT 19.1 H, INR 1.7 09/14/19 15:15: Magnesium 1.8 09/14/19 15:40: Lactic Acid 1.1 09/14/19 15:52: COVID-19 (CATIE) Negative 09/14/19 16:18: Procalcitonin 0.59 H 09/14/19 17:00: Urine Color Yellow, Urine Clarity Cloudy, Urine pH 5.0, Ur Specific [place] 1.020, Urine Protein 15 H, Urine Glucose (UA) Normal, Urine Ketones 5 H, Urine Occult Blood 25 H, Urine Nitrite Negative, Urine Bilirubin Negative, Urine Urobilinogen Normal, Ur Leukocyte Esterase 500 H, Urine RBC 0 SEEN, Urine WBC 50-100 SEEN, Ur Squamous Epith Cells 0-5 SEEN, Urine Bacteria 0 SEEN, Urine Mucus 3+ 09/15/19 05:40: WBC 9.8, RBC 4.41, Hgb 12.4, Hct 39.5, MCV 89.6, MCH 28.1, MCHC 31.4 L, RDW Std Deviation 43.8, RDW Coeff of Kahlil 13.5, Plt Count 220, MPV 9.7, Immature Gran % (Auto) 0.400, Neut % (Auto) 90.0 H, Lymph % (Auto) 6.8 L, [place] % (Auto) 1.0, Eos % (Auto) 1.7, Baso % (Auto) 0.1, Absolute Neuts (auto) 8.8 H, Absolute Lymphs (auto) 0.66 L, Nucleated RBC % 0, Differential Comment SCANNED 09/15/19 05:40: PT 23.6 H, INR 2.2 09/15/19 05:40: Sodium 140, Potassium 3.8, Chloride 109 H, Carbon Dioxide 28.0, Anion Gap 3 L, BUN 16, Creatinine 0.78, Estim Creat Clear Calc 50.41, Est GFR (MDRD) Af Amer 94, Est GFR (MDRD) Non-Af 78, BUN/Creatinine Ratio 20.4 H, Glucose 159 H, Calcium 8.2 L, TSH 0.97 Current Medications Acetaminophen (Tylenol) 650 mg PO Q6H PRN PRN PRN Reason: Pain Score 1-10/Temp > 100.7 F Last Admin: 09/15/19 08:07 Dose: 650 mg Documented by: Al Hydroxide/Mg Hydroxide (Mylanta Ii) 30 ml PO Q6H PRN PRN PRN Reason: Gastric Burning Albuterol Sulfate (Ventolin Aerosols) 2.5 mg INHALATION Q2H PRN PRN PRN Reason: Shortness of Breath/Wheezing Albuterol/Ipratropium (Duoneb) 3 ml INHALATION Q4H.RT [facility] Last Admin: 09/15/19 10:57 Dose: 3 ml Documented by: Amiodarone HCl (Cordarone) 200 mg PO DAILY [facility] Last Admin: 09/15/19 08:58 Dose: 200 mg Documented by: Atorvastatin Calcium (Lipitor) 40 mg PO QHS [facility] Last Admin: 09/14/19 21:06 Dose: 40 mg Documented by: Benzonatate (Tessalon Perle) 200 mg PO TID [facility] Last Admin: 09/15/19 05:11 Dose: 200 mg Documented by: Dextrose (D50w Syringe) 0 gm IV X1 PRN; Protocol PRN Reason: Hypoglycemia Epinephrine HCl () 0.3 mg IM X1 PRN PRN Reason: ALLERGIC REACTIONS Fluticasone Propionate (Flonase Nasal [place]) 2 spray NASAL DAILY PRN PRN PRN Reason: ALLERGIES Glucagon () 1 mg IM .X1 PRN PRN Reason: Hypoglycemia Sodium Chloride () 250 mls @ 15 mls/hr IV .[id number] PRN PRN Reason: Saline Flush Sodium Chloride () 250 mls @ 15 mls/hr IV .[id number] PRN PRN Reason: Additional IVPB Infusion Ceftriaxone Sodium (Rocephin) 1 gm in 50 mls @ 100 mls/hr IV Q24 [facility] Last Infusion: 09/15/19 09:47 Dose: Infused Documented by: Loratadine (Claritin) 10 mg PO DAILY [facility] Last Admin: 09/15/19 08:58 Dose: 10 mg Documented by: Meclizine HCl (Antivert) 25 mg PO Q6H PRN PRN Reason: DIZZINESS Methylprednisolone (Solu-Medrol) 40 mg IV Q8 [facility] Last Admin: 09/15/19 05:11 Dose: 40 mg Documented by: Metoprolol Tartrate (Lopressor (Beta Ezio)) 12.5 mg PO BID [facility] Last Admin: 09/15/19 08:59 Dose: 12.5 mg Documented by: Montelukast Sodium (Singulair) 10 mg PO DAILY [facility] Last Admin: 09/15/19 08:58 Dose: 10 mg Documented by: Morphine Sulfate () 2 mg IV Q3H PRN PRN PRN Reason: Pain Score 6-10/10 Nitroglycerin (Nitrostat) 0.4 mg SUBLINGUAL Q5M PRN PRN Reason: CARDIAC/CHEST PAIN Nutritional Formula (Lactose Free) (Ensure Enlive) 120 ml PO 4X/DAY [facility] Last Admin: 09/15/19 09:00 Dose: 120 ml Documented by: Oxycodone HCl (Oxyir) 5 mg PO Q4H PRN PRN PRN Reason: Pain Score 4-5/10 Pantoprazole Sodium (Protonix) 20 mg PO DAILY [facility] Last Admin: 09/15/19 08:58 Dose: 20 mg Documented by: Prochlorperazine Edisylate (Compazine Iv) 5 mg IV Q6H PRN PRN PRN Reason: NAUSEA/VOMITING Senna/Docusate Sodium (Senokot-S, Sheela-Colace) 2 tablet PO BID PRN PRN PRN Reason: Constipation Sodium Chloride () 10 - 40 ml IV UD PRN PRN Reason: SALINE FLUSH Thiamine HCl (Vitamin B1) 100 mg PO DAILY@0800 [facility] Last Admin: 09/15/19 08:58 Dose: 100 mg Documented by: Verapamil HCl (Calan Sr) 240 mg PO DAILY [facility] Last Admin: 09/15/19 08:58 Dose: 240 mg Documented by: Warfarin Sodium (Coumadin (Pbkc)) 5 mg PO DAILY@1700 [facility] STR[facility]KE Vital Signs/Narrative: Vital Signs Temp Pulse Resp BP Pulse Ox 09/15/19 10:57 86 16 09/15/19 09:06 36.8 C 80 18 121/62 H 97 09/15/19 08:59 80 Medical Necessity - Tobacco Use Smoking Status: Never smoker Tobacco Use: Non-smoker Assessment/Plan All Active Problems (Last Updated 05/20/19 @ 10:[address] José Luis Gardner MD) Pneumonia (Acute) UTI (urinary tract infection) (Acute) Generalized weakness (Acute) Community acquired pneumonia (Acute) Suspected 2019 novel coronavirus infection (Acute) 1. Sepsis: Is an admission. Secondary to UTI. COVID-19 negative. Blood cultures and urine cultures still pending. Respiratory panel pending. Doubt pneumonia. 2. UTI: Subjectively improved. Follow-up urine culture. Continue with ceftriaxone for now. 3. Acute exacerbation asthma: Doing well. Patient on methylprednisolone 40 mg 3 times a day. Will de-escalate to twice daily and if improved then would do a prednisone burst 40 mg daily. Wean oxygen as tolerated. Patient negative for viral respiratory panel as well as COVID-19. Given her improvements, I suspect this is COVID-19. 4. Chronic conditions: Paroxysmal atrial fibrillation, history of stroke and TIA, migraine, GERD: Overall stable but overall complicate care. 5. VTE prophylaxis: Not indicated as anticoagulated with warfarin. Inpatient E&M: 68908 [facility] Hosp L2
--- NOTE | 2019-09-15 15:38 | CASEMGMT ---
HINOJOSA form completed with patient at this time. RN SALO explained HINOJOSA form to patient. Patient voiced understanding. Patient signed HINOJOSA form and placed in chart. Patient provided copy of signed HINOJOSA form. Patient had no further questions or concerns at this time.
[2019-09-15] MEDS: Atorvastatin Calcium 40 MG Tablet PO (21:12)
[2019-09-15] MEDS: 0.9% Saline Lock 10 ML Syringe IV (21:13)
[2019-09-16 02:11] VITALS: PULSE 77
[2019-09-16 02:58] VITALS: BP 119/77; PULSE 80; RESP 18; TEMP 36.7; O2SAT 92
[2019-09-16] MEDS: Benzonatate 100 MG Capsule 200 MG PO (05:28)
[2019-09-16 06:24] LABS: International Normalized Ratio 2.4; Prothrombin Time (Protime)PT. 25.3 SECONDS (11.7-14.9)
[2019-09-16 06:56] VITALS: PULSE 77; RESP 20; O2SAT 95
[2019-09-16] MEDS: Ipratropium/Albuterol Sulfate 3 ML AMPUL.NEB INHALATION (06:56)
[2019-09-16 08:50] VITALS: PULSE 92
--- NOTE | 2019-09-16 08:54 | DCINST_ITS ---
- Discharge Diagnoses Current Active Problems: Current Active and Chronic Problems (Last Updated 05/20/19 @ 10:[address] José Luis Gardner MD) Pneumonia (Acute) UTI (urinary tract infection) (Acute) Generalized weakness (Acute) You will use the following diet at home:: No restrictions Your food should be the consistency of: Regular Your liquids should be the consistency of: Regular/Thin Discharge Activity: Return to Normal Activity Call your doctor if you observe: Fever of 101 or Higher, Inability to urinate, Shortness of breath Allergies/Adverse Reactions: Allergies adhesive tape Allergy (Verified 09/14/19 15:59) Rash propoxyphene HCl [From Darvon] Allergy (Verified 09/14/19 15:59) Rash sulfamethoxazole [From Bactrim] Allergy (Verified 09/14/19 15:59) Shortness of breath trimethoprim [From Bactrim] Allergy (Verified 09/14/19 15:59) Shortness of breath venom-honey bee [bee venom (honey bee)] Allergy (Verified 09/14/19 15:59) Anaphylaxis venom-wasp [wasp venom] Allergy (Verified 09/14/19 15:59) Anaphylaxis prednisone Adverse Reaction (Verified 09/14/19 15:59) Diarrhea anything that stings Allergy (Uncoded 09/14/19 15:59) Anaphylaxis banana peppers Allergy (Uncoded 09/14/19 15:59) Hives FIBERGLASS Allergy (Uncoded 09/14/19 15:59) Shortness of breath Medications to take at Discharge Epi Pen (for allergic rxn) 0.3 mg IM X1 05/04/13 Loratadine [Claritin] 10 mg PO DAILY 05/04/13 Albuterol Sulfate [Ventolin Hfa] 2 puff IH Q6H PRN PRN 12/26/15 Pantoprazole Sodium [Protonix] 20 mg PO DAILY 12/26/15 CycloSPORINE Ophthalmic [Restasis Ophthalmic] 1 drp EACH EYE BID 03/28/16 Meclizine HCl 25 mg PO Q6H PRN 03/28/16 Atorvastatin Calcium [Lipitor] 40 mg PO DAILY 07/02/18 Fluticasone 0.05% [Flonase Nasal [place]] 2 spray NASAL DAILY PRN PRN 07/02/18 Albuterol Aerosols [Ventolin Aerosols] 2.5 mg INHALATION Q4H PRN PRN 12/04/18 amiodarone 200 mg tablet 200 mg PO DAILY #90 tab 12/26/18 metoprolol tartrate 25 mg tablet 12.5 mg PO BID #90 tab 12/26/18 verapamil 240 mg tablet,extended release 240 mg PO DAILY #90 tab 12/26/18 Ondansetron [Zofran] 4 mg PO Q6H PRN 02/10/19 Thiamine Mononitrate (Vit B1) [Vitamin B-1] 100 mg PO DAILY 02/10/19 Acetaminophen [Tylenol Tablet] 650 mg PO Q6H PRN PRN tab 02/12/19 Benzonatate 200 mg PO TID PRN #20 cap 04/26/19 Montelukast [Singulair] 10 mg PO DAILY 09/14/19 Warfarin Sodium 4 mg PO MOWEFR 09/14/19 Warfarin [Coumadin] 3 mg PO SUTUTHSA 09/14/19 MethylPREDNISolone DosePak [Medrol DosePak] 4 mg PO UD #1 box 09/16/19 Nitrofurantoin Macrocrystal [Nitrofurantoin] 100 mg PO BID #10 cap 09/16/19 The following prescriptions were given: MethylPREDNISolone DosePak [Medrol DosePak] 4 mg PO UD #1 box Transmission Status: Pending to [id number] Nitrofurantoin Macrocrystal [Nitrofurantoin] 100 mg PO BID #10 cap Transmission Status: Pending to [id number] Primary Care Physician: Paul Reynolds MD [Primary Care Provider] - Within 2 Weeks Please follow up with your Primary Care Physician in: Have your INR checked prior to visit. Test Results: Test results from this visit will be discussed in further detail at your follow- up appointment, if applicable. Please Follow Up With: [facility] When: 01/15/2020, already scheduled. Proposed Discharge Date: 09/16/19
--- NOTE | 2019-09-16 08:56 | DS.PCM_ITS ---
Discharge Date and Diagnosis - Problem List Patient Problems: Active and Suspected Problems (Last Updated 05/20/19 @ 10:[address] José Luis Gardner MD) Pneumonia (Acute) UTI (urinary tract infection) (Acute) Generalized weakness (Acute) Date of Admission: 09/14/19 Date of Discharge: 09/16/19 - Primary Discharge Diagnosis Acute Problems: Active Problems (Last Updated 05/20/19 @ 10:[address] José Luis Gardner MD) Pneumonia (Acute) UTI (urinary tract infection) (Acute) Generalized weakness (Acute) 1. Sepsis: Is an admission. Secondary to UTI. COVID-19 negative. Blood cultures and urine cultures still pending. Respiratory panel pending. Doubt pneumonia. 2. UTI: Subjectively improved. UCx still pending. Will discharge with nitrofurantoin. 3. Acute exacerbation asthma: Doing well. DC with medrol dosepak (allergy to prednisone). - Secondary Discharge Diagnosis Chronic Problems: Chronic Problems (Last Updated 05/20/19 @ 10:[address] José Luis Gardner MD) On amiodarone therapy (Chronic) shelter current use of anticoagulant (Chronic) States that she is on warfarin because she had GI side effects from Eliquis and did not tolerate it Atrial fibrillation (Chronic) Asthma (Chronic) TIA (transient ischemic attack) (Chronic) CVA (cerebral vascular accident) (Chronic) HTN (hypertension) (Chronic) HLD (hyperlipidemia) (Chronic) BMI greater than 30 (Chronic) Migraine (Chronic) GERD (gastroesophageal reflux disease) (Chronic) Hospital Course and Treatment Operations: None Procedures: None Summary of Care Provided: The patient is a 69 year old F presents with cough and shortness of breath. Patient was having a fever when she arrived 102 Fahrenheit. Patient came in and was checked for COVID-19 which was negative. Urinalysis was suggestive of urinary tract infection so patient was started on ceftriaxone. Patient was also turned for acute exacerbation of her asthma and was started on methylprednisolone IV. Over the past couple days patient has steadily improved. Cultures are still negative including her blood and urine cultures but patient has improved with ceftriaxone. Review of her previous cultures does not show any reviewed urine studies so the likelihood of a multidrug-resistant organism is low so patient will be started on 5-day course of nitrofurantoin. Given the patient's asthma exacerbation she is already on albuterol and will be discharged with a Medrol Dosepak. Patient has a reported allergy to prednisone. Patient is overall feeling well and feels ready to go home. Patient be discharged home in stable condition. [] Patient Problems: Active and Suspected Problems (Last Updated 05/20/19 @ 10:[address] José Luis Gardner MD) Pneumonia (Acute) UTI (urinary tract infection) (Acute) Generalized weakness (Acute) - Physical Exam Vitals/I&O's: Vital Signs Temp Pulse Resp BP Pulse Ox 36.7 C 77 20 H 119/77 95 09/16/19 02:58 09/16/19 06:56 09/16/19 06:56 09/16/19 02:58 09/16/19 06:56 Oxygen Flow Rate (L/min) 2 Oxygen Delivery Method Room Air Weight: 87.5 kg Body Mass Index (BMI) 31.1 Intake and Output for Last 24 Hours 09/14/19 09/15/19 09/16/19 23:59 23:59 23:59 Intake Total 654.58 / 654.58 2456.25 / 2456.25 Balance 654.58 / 654.58 2456.25 / 2456.25 General: Alert, No apparent distress HEENT: Atraumatic, Normocephalic Oral: Moist Mucosa, No Gingival or Mucosal Lesions/ Ulcerations Neck: No Nodes, Thyroid Normal Size and Texture Lungs: Clear to auscultation, Normal air movement, No rhonchi, No wheeze Cardiovascular: Regular rate, Regular Rhythm, Normal S1, Normal S2 Abdomen: Bowel Sounds Present, Soft, Non Tender, Non-Distended, No Hepato- splenomegaly Extremities: No edema, No Calf Tenderness Microbiology Past 72 Hours 09/14/19 20:00 Mucosa - Nose Respiratory Panel (PCR) - Final Laboratory Results 09/16/19 05:44: PT 25.3 H, INR 2.4 Current Medications Acetaminophen (Tylenol) 650 mg PO Q6H PRN PRN PRN Reason: Pain Score 1-10/Temp > 100.7 F Last Admin: 09/15/19 21:12 Dose: 650 mg Documented by: Al Hydroxide/Mg Hydroxide (Mylanta Ii) 30 ml PO Q6H PRN PRN PRN Reason: Gastric Burning Albuterol Sulfate (Ventolin Aerosols) 2.5 mg INHALATION Q2H PRN PRN PRN Reason: Shortness of Breath/Wheezing Albuterol/Ipratropium (Duoneb) 3 ml INHALATION Q4H.RT [facility] Last Admin: 09/16/19 06:56 Dose: 3 ml Documented by: Amiodarone HCl (Cordarone) 200 mg PO DAILY [facility] Last Admin: 09/15/19 08:58 Dose: 200 mg Documented by: Atorvastatin Calcium (Lipitor) 40 mg PO QHS [facility] Last Admin: 09/15/19 21:12 Dose: 40 mg Documented by: Benzonatate (Tessalon Perle) 200 mg PO TID [facility] Last Admin: 09/16/19 05:28 Dose: 200 mg Documented by: Dextrose (D50w Syringe) 0 gm IV X1 PRN; Protocol PRN Reason: Hypoglycemia Epinephrine HCl () 0.3 mg IM X1 PRN PRN Reason: ALLERGIC REACTIONS Fluticasone Propionate (Flonase Nasal [place]) 2 spray NASAL DAILY PRN PRN PRN Reason: ALLERGIES Glucagon () 1 mg IM .X1 PRN PRN Reason: Hypoglycemia Sodium Chloride () 250 mls @ 15 mls/hr IV .[id number] PRN PRN Reason: Saline Flush Sodium Chloride () 250 mls @ 15 mls/hr IV .[id number] PRN PRN Reason: Additional IVPB Infusion Ceftriaxone Sodium (Rocephin) 1 gm in 50 mls @ 100 mls/hr IV Q24 [facility] Last Infusion: 09/15/19 09:47 Dose: Infused Documented by: Loratadine (Claritin) 10 mg PO DAILY [facility] Last Admin: 09/15/19 08:58 Dose: 10 mg Documented by: Meclizine HCl (Antivert) 25 mg PO Q6H PRN PRN Reason: DIZZINESS Methylprednisolone (Solu-Medrol) 40 mg IV Q12 [facility] Last Admin: 09/15/19 21:12 Dose: 40 mg Documented by: Metoprolol Tartrate (Lopressor (Beta Ezio)) 12.5 mg PO BID [facility] Last Admin: 09/15/19 21:12 Dose: 12.5 mg Documented by: Montelukast Sodium (Singulair) 10 mg PO DAILY [facility] Last Admin: 09/15/19 08:58 Dose: 10 mg Documented by: Morphine Sulfate () 2 mg IV Q3H PRN PRN PRN Reason: Pain Score 6-10/10 Nitroglycerin (Nitrostat) 0.4 mg SUBLINGUAL Q5M PRN PRN Reason: CARDIAC/CHEST PAIN Nutritional Formula (Lactose Free) (Ensure Enlive) 120 ml PO 4X/DAY [facility] Last Admin: 09/15/19 21:12 Dose: 120 ml Documented by: Oxycodone HCl (Oxyir) 5 mg PO Q4H PRN PRN PRN Reason: Pain Score 4-5/10 Pantoprazole Sodium (Protonix) 20 mg PO DAILY [facility] Last Admin: 09/15/19 08:58 Dose: 20 mg Documented by: Prochlorperazine Edisylate (Compazine Iv) 5 mg IV Q6H PRN PRN PRN Reason: NAUSEA/VOMITING Senna/Docusate Sodium (Senokot-S, Sheela-Colace) 2 tablet PO BID PRN PRN PRN Reason: Constipation Sodium Chloride () 10 - 40 ml IV UD PRN PRN Reason: SALINE FLUSH Last Admin: 09/15/19 21:13 Dose: 20 ml Documented by: Thiamine HCl (Vitamin B1) 100 mg PO DAILY@0800 [facility] Last Admin: 09/15/19 08:58 Dose: 100 mg Documented by: Verapamil HCl (Calan Sr) 240 mg PO DAILY [facility] Last Admin: 09/15/19 08:58 Dose: 240 mg Documented by: Warfarin Sodium (Coumadin (Pbkc)) 5 mg PO DAILY@1700 [facility] Last Admin: 09/15/19 17:21 Dose: 5 mg Documented by: Discharge Diet: No Restrictions Discharge Activity: Return to Normal Activity Call your doctor if you observe: Fever of 101 or Higher, Inability to urinate, Shortness of breath Home Medications: Medications to take at Discharge Epi Pen (for allergic rxn) 0.3 mg IM X1 05/04/13 Loratadine [Claritin] 10 mg PO DAILY 05/04/13 Albuterol Sulfate [Ventolin Hfa] 2 puff IH Q6H PRN PRN 12/26/15 Pantoprazole Sodium [Protonix] 20 mg PO DAILY 12/26/15 CycloSPORINE Ophthalmic [Restasis Ophthalmic] 1 drp EACH EYE BID 03/28/16 Meclizine HCl 25 mg PO Q6H PRN 03/28/16 Atorvastatin Calcium [Lipitor] 40 mg PO DAILY 07/02/18 Fluticasone 0.05% [Flonase Nasal [place]] 2 spray NASAL DAILY PRN PRN 07/02/18 Albuterol Aerosols [Ventolin Aerosols] 2.5 mg INHALATION Q4H PRN PRN 12/04/18 amiodarone 200 mg tablet 200 mg PO DAILY #90 tab 12/26/18 metoprolol tartrate 25 mg tablet 12.5 mg PO BID #90 tab 12/26/18 verapamil 240 mg tablet,extended release 240 mg PO DAILY #90 tab 12/26/18 Ondansetron [Zofran] 4 mg PO Q6H PRN 02/10/19 Thiamine Mononitrate (Vit B1) [Vitamin B-1] 100 mg PO DAILY 02/10/19 Acetaminophen [Tylenol Tablet] 650 mg PO Q6H PRN PRN tab 02/12/19 Benzonatate 200 mg PO TID PRN #20 cap 04/26/19 Montelukast [Singulair] 10 mg PO DAILY 09/14/19 Warfarin Sodium 4 mg PO MOWEFR 09/14/19 Warfarin [Coumadin] 3 mg PO SUTUTHSA 09/14/19 MethylPREDNISolone DosePak [Medrol DosePak] 4 mg PO UD #1 box 09/16/19 Nitrofurantoin Macrocrystal [Nitrofurantoin] 100 mg PO BID #10 cap 09/16/19 Following Prescrptions Were Given to Patient: MethylPREDNISolone DosePak [Medrol DosePak] 4 mg PO UD #1 box Transmission Status: Pending to [facility]/pharmacy #[id number] Nitrofurantoin Macrocrystal [Nitrofurantoin] 100 mg PO BID #10 cap Transmission Status: Pending to [facility]/pharmacy #[id number] Primary Care Physician: Paul Reynolds MD [Primary Care Provider] - Within 2 Weeks Please follow up with your Primary Care Physician in: Have your INR checked prior to visit. Please Follow Up With: [facility] When: 01/15/2020, already scheduled. Medical Necessity - Tobacco Use Smoking Status: Never smoker Tobacco Use: Non-smoker Meaningful Use Info Meaningful Use Diagnoses (Choose all that apply): None applicable Inpatient E&M: 33008 [facility]
[2019-09-16 09:07] VITALS: BP 139/60; PULSE 82; RESP 18; TEMP 36.7; O2SAT 92
[2019-09-16 09:20] VITALS: PULSE 82
[2019-09-16] MEDS: Metoprolol Tartrate 25 MG Tablet 12.5 MG PO (09:20)
[2019-09-16] MEDS: Pantoprazole Sodium 20 MG Tablet PO (09:21)
[2019-09-16] MEDS: Montelukast 10 MG Tablet PO (09:21)
[2019-09-16] MEDS: Amiodarone 200 MG Tablet PO (09:21)
[2019-09-16] MEDS: Verapamil SR 240 MG Tablet PO (09:21)
[2019-09-16] MEDS: Loratadine 10 MG Tablet PO (09:21)
[2019-09-16] MEDS: Thiamine Hydrochloride 100 MG Tablet PO (09:21)
== END 2019-09-16 10:48 | disposition home or self-care (01) ==
LOC: ED 17:19 → MS3 17:32
PROVIDERS: Admitting Provider Internal Medicine; Emergency Provider Emergency Medicine; PCP Family Medicine
DX: A41.51 Sepsis due to Escherichia coli [E. coli] (principal); N30.00 Acute cystitis without hematuria; I48.0 Paroxysmal atrial fibrillation; K21.9 Gastro-esophageal reflux disease without esophagitis; E78.5 Hyperlipidemia, unspecified; I10 Essential (primary) hypertension; J45.901 Unspecified asthma with (acute) exacerbation; Z79.01 Long term (current) use of anticoagulants; Z79.899 Other long term (current) drug therapy; Z86.73 Personal history of transient ischemic attack (TIA), and cerebral infarction without residual deficits; G43.909 Migraine, unspecified, not intractable, without status migrainosus; E66.9 Obesity, unspecified; Z68.31 Body mass index [BMI] 31.0-31.9, adult
CPT/HCPCS: 36415; 71045; 80048; 80053; 81001; 83605; 83735; 84145; 84443; 84484; 85025; 85610; 87040; 87086; 87088; 87633; 87635; 93005; 94640; 94667; 94668; 96361; 96365; 96367; 96375; 96376; 97162; 97166; 97530; 97535; 97802; 99218; 99251; 99285; G2023; J7030; A4216; G0378; G0463; J0696; U0003

== ENCOUNTER 2019-09-17 08:28 | Emergency (ER) | payer MEDICARE, SELFPAY ==
[2019-09-14 18:25] VITALS: BMI 31.1
[2019-09-17] VITALS (12 sets, daily range): BP systolic 108–146; BP diastolic 67–93; PULSE 77–112; RESP 16–28; TEMP 36.8–37.7; O2SAT 90–97; BMI 31.7
--- NOTE | 2019-09-17 08:55 | EKG12_ITS ---
Test Reason : CP Blood Pressure : / mmHG Vent. Rate : 098 BPM Atrial Rate : 098 BPM P-R Int : 148 ms QRS Dur : 082 ms QT Int : 388 ms P-R-T Axes : 060 021 054 degrees QTc Int : 495 ms Sinus rhythm with Premature atrial complexes Prolonged QT Abnormal ECG Confirmed by MAX BELLAMY ([id number]), web content editor SOFIA ARREDONDO ([id number]) on 09/22/2019 12:03:34 PM Referred By: REJI Confirmed By:MAX BELLAMY
--- NOTE | 2019-09-17 08:57 | ED.DCSUM_ITS ---
- ER Visit Summary Date of Service: 09/17/19 Chief Complaint: Shortness of breath History of Present Illness: The patient is a 69 F who presents with shortness of breath that began today. Patient states she woke up around 2:30 AM today and was short of breath. Patient was discharged from the hospital yesterday and was feeling well. Patient states her breathing improves somewhat when she reclines. Patient admits to a cough but denies any sputum. Patient admits to a fever of 102 this morning. Patient also admits to a sore throat. Patient admits to some mild aching in her upper chest. Patient also admits to a mild headache. Patient had a COVID test done which was negative when she was admitted to the hospital. Respiratory panel was negative. Urine culture showed mixed gram- positive and gram-negative organisms. Blood cultures showed no growth. Physical Examination: Vital signs are stable except for mild tachypnea of 24 and a mild tachycardia of 112. Patient is afebrile here. Patient is in no acute distress. Oral mucosa is pink and moist. Neck is supple. Trachea is midline. There is no JVD. Heart was regular and tachycardic. Lungs showed diffuse inspiratory and expiratory wheezing. There is adequate respiratory effort noted. Abdomen is soft. Bowel sounds are normal. There is no tenderness. Cranial nerves II through XII are intact. There are no focal motor or sensory deficits. Extremities are intact. There is no calf tenderness or edema. Test Results: EKG showed normal sinus rhythm with a rate of 98. There are occasional PACs. There are no acute ST or T wave changes. This was unchanged compared to previous EKG dated 05/19/2019. CBC shows a mild leukocytosis of 13.7 but she is currently on a Medrol Dosepak. Basic metabolic profile was normal. Urinalysis does not show any evidence of urinary tract infection. Troponin was normal. Lactate was normal. Portable chest x-ray was obtained. There is improvement of previous bibasilar opacifications. This was interpreted by the radiologist and reviewed by myself. Emergency Department Course and Treatment: Patient was placed on oxygen. Patient was given a DuoNeb aerosol here. Patient stated she was feeling better at that time. Patient was ambulated on room air and her pulse oximeter dropped to 90% while ambulating. Patient was given a repeat albuterol aerosol. Patient was feeling better after this. Patient states she wants to go home. Patient was encouraged to take her Medrol Dosepak as prescribed. Patient was instructed to use her home nebulizers as needed. Patient was instructed to follow-up with her primary care physician in 3 to 5 days. Patient was instructed return if worse in any way. Patient understood and was agreeable with the plan. All questions were answered. Disposition: Discharge home Impression: Asthma exacerbation This note was generated with amaysim dictation software. It may contain incorrect words, spelling, and punctuation that were not noted in review of the chart prior to signing ED Disposition - Plan for ED Patient: Disposition: Home or Assisted Living Diagnosis: Asthma exacerbation Instructions: ED REACTIVE AIRWAY DISEASE Adult Referrals: Paul Reynolds MD [Primary Care Provider] - 3-5 Days
[2019-09-17 09:02] LABS: Absolute Lymphocyte Count 1.31 X10^3/uL (0.83-4.51); Absolute Neutrophil Count 11.1 X10^3/uL (2.0-7.7); Basophil# 0.03 X10^3/uL; Basophil% 0.2 % (0-1); Eosinophil# 0.12 X10^3/uL; Eosinophils% 0.9 % (0-5); Hematocrit 40.5 % (37-47); Hemoglobin 13.1 g/dL (12.0-15.0); Lymphocyte # 1.31 X10^3/ul (4.0); Lymphocyte % 9.6 % (19-41); Mean Corp Hgb Conc 32.3 g/dL (32-36); Mean Corpuscular Hgb 28.4 pg (27.0-32.0); Mean Corpuscular Volume 87.9 fL (81-99); Mean Platelet Vol. 9.9 fl (6.2-12.0); Monocyte# 0.83 X10^3/uL; Monocyte% 6.1 % (0-10); NRBC Flagged by Analyzer 0 % (0-5); Neutrophil # 11.12 X10^3/uL (2.7-7.7); Neutrophil % 81.2 % (47-70); Platelet Count 281 K/mm3 (150-450); RBC Distribution Width CV 13.8 % (11.6-14.6); RBC Distribution Width SD 44.3 fl (35.1-43.9); Red Blood Count 4.61 M/mm3 (4.2-5.4); White Blood Count 13.7 K/mm3 (4.4-11.0)
--- NOTE | 2019-09-17 09:12 | RAD_ITS ---
STUDY: X-RAY CHEST REASON FOR EXAM: Female, 69 years old. pt c/o sob, dyspnea. chest pains, pt was discharged from hospital yesterday started having pains again today TECHNIQUE: Single AP portable view of the chest. COMPARISON: 09/14/2019 FINDINGS: EKG leads overlie the chest Lungs are expanded. Near complete resolution of the previously noted bibasilar opacifications. No demonstrated effusion noted. There is no demonstrated pleural abnormality. Normal size heart. Normal mediastinum and gagandeep. Normal visualized pulmonary arteries. Normal visualized aortic arch and descending thoracic aorta. There are diffuse degenerative changes of the visualized thoracic spine. There is degenerative osteoarthritis of the bilateral shoulders. There is no demonstrated abnormality of the visualized soft tissue structures of the upper abdomen. RAD/Chest 1 View (Portable) IMPRESSION: Overall improvement compared to the previous study with near complete resolution of the previously described bibasilar hazy opacifications. Continued follow-up recommended to assure complete resolution. Electronically Signed: Danilo Fernandez MD at 9:45 EDT , Service support ,
[2019-09-17 09:14] LABS: Bacteria 0 SEEN /hpf (None Seen); Mucous, Urine 0 SEEN /hpf (<or=2+); White Blood Cells 0 SEEN /hpf (0-5)
[2019-09-17 09:17] LABS: Anion Gap 5 (5-15); BUN 24 mg/dL (7-18); BUN/Creat Ratio 29.1 RATIO (10-20); Calcium,Total 8.7 mg/dL (8.5-10.1); Chloride 106 mmol/L (98-107); Creatinine, Serum 0.83 mg/dL (0.55-1.02); EST Glomerular Filtration Rate 73 mL/min (>60); Est Glom Filt Rate - Afr Amer 88 mL/min (>60); Estimated Creatinine Clearance 60.73 ml/min; Glucose 110 mg/dL (74-106); Potassium 3.5 mmol/L (3.5-5.1); Sodium Level 139 mmol/L (136-145)
[2019-09-17 09:19] LABS: Color, Urine Straw (Yellow); Glucose, Dipstick Normal (Normal); Ketone-Dipstick Negative (Negative); Leukocyte Esterase-Dipstick Negative /ul (Negative); Nitrite-Dipstick Negative (Negative); Occult Blood-Urine 10 /ul (Negative); Protein-Dipstick Negative (Negative); Urine Bilirubin Dipstick Negative (Negative); Urine Clarity Clear (Clear); Urine Urobilinogen Normal (Normal)
[2019-09-17 09:25] LABS: Red Blood Cells-Urine 0-5 SEEN /hpf (0-5); Squamous Epithelial Cells - UA 0-5 SEEN /hpf (5-10)
[2019-09-17] MEDS: Ipratropium/Albuterol Sulfate 3 ML AMPUL.NEB INHALATION (09:37)
[2019-09-17] MEDS: Albuterol 2.5 MG/3 ML VIAL.NEB. INHALATION (11:09)
== END 2019-09-17 12:09 | disposition home or self-care (01) ==
PROVIDERS: Emergency Provider Emergency Medicine; PCP Family Medicine
DX: J45.901 Unspecified asthma with (acute) exacerbation (principal); J02.9 Acute pharyngitis, unspecified; R50.9 Fever, unspecified; I48.91 Unspecified atrial fibrillation; I49.1 Atrial premature depolarization; Z79.01 Long term (current) use of anticoagulants; Z79.899 Other long term (current) drug therapy
CPT/HCPCS: 71045; 80048; 81001; 83605; 84484; 85025; 93005; 94640; 99284; A4216

== ENCOUNTER 2021-06-10 08:11 | Emergency (ER) | payer MEDICARE, SELFPAY ==
[2021-06-10 08:11] VITALS: BP 156/91; PULSE 76; RESP 16; TEMP 36.8; O2SAT 99; BMI 32.0
--- NOTE | 2021-06-10 08:36 | RAD_ITS ---
STUDY: X-RAY - RIGHT WRIST REASON FOR EXAM: Female, 71 years old. Pain and swelling following a fall. TECHNIQUE: 3 view(s) of the wrist were obtained. COMPARISON: None. FINDINGS: There is demineralization of the radius and ulna. Normal radiocarpal articulation. Normal distal radioulnar articulation. Normal carpal bones. Normal carpal articulations. There is degenerative arthrosis of the carpometacarpal articulation of the thumb. Normal second through fifth carpometacarpal articulations. Normal visualized metacarpal bones. Soft tissue swelling. RAD/Wrist min 3 Views IMPRESSION: Degenerative changes. No acute abnormality is seen. Electronically Signed: Magdiel Cheung MD at 9:56 EDT ,
--- NOTE | 2021-06-10 08:36 | CT_ITS ---
STUDY: CT BRAIN WITHOUT CONTRAST REASON FOR EXAM: Female, 71 years old. Head injury due to a fall. The patient is on anticoagulants. RADIATION DOSAGE (If Supplied By Facility): CTDIvol = ( 44.99 ) mGy, DLP = ( 745.49 ) mGycm TECHNIQUE: Transaxial CT imaging of the brain was performed without administration of intravenous contrast material. Individualized dose optimization techniques were used for this CT. COMPARISON: Comparison is made with prior study dated 04/24/2019. FINDINGS: Normal soft tissue structures. Normal calvarium. Normal size ventricles and extra-axial spaces for the patient''s age. Normal white matter tracts of the cerebral hemispheres. Normal basal ganglia and thalami. Normal brainstem. Normal cerebellum. There is no intracranial hemorrhage. There are no findings of an acute ischemic infarction. Opacification of the left maxillary sinus. CT/Brain/Head without Contrast IMPRESSION: Normal unenhanced CT scan of the brain. Electronically Signed: Magdiel Cheung MD at 9:40 EDT ,
--- NOTE | 2021-06-10 08:36 | RAD_ITS ---
STUDY: X-RAY - RIGHT RADIUS AND ULNA REASON FOR EXAM: Female, 71 years old. Pain following a fall. TECHNIQUE: 2 view(s) of the forearm. COMPARISON: None. FINDINGS: There is a 3 mm rounded density in the soft tissues overlying the medial proximal ulna along its ventral aspect most likely representing a small radiopaque foreign body. Normal visualized radius. Normal visualized ulna. RAD/Forearm 2 Views IMPRESSION: No fracture is seen. 3 mm density in the medial ventral soft tissues overlying the proximal ulna suggestive of a possible radiopaque foreign body. Electronically Signed: Magdiel Cheung MD at 9:58 EDT ,
--- NOTE | 2021-06-10 08:36 | RAD_ITS ---
STUDY: X-RAY - RIGHT KNEE REASON FOR EXAM: Female, 71 years old. Pain following a fall. TECHNIQUE: 4 view(s) of the knee. COMPARISON: None. FINDINGS: Degenerative spur formation along the medial femoral condyle. Normal visualized proximal tibia and fibula. Normal proximal tibiofibular articulation. There is severe degenerative arthrosis of the medial femorotibial compartment with severe joint space narrowing. Normal lateral femorotibial compartment. There is moderate degenerative arthrosis of the patellofemoral articulation. Small joint effusion. RAD/Knee 4 or More Views IMPRESSION: Degenerative arthrosis. Small joint effusion. Electronically Signed: Magdiel Cheung MD at 9:59 EDT ,
--- NOTE | 2021-06-10 09:35 | EX.ED.GENINJ ---
HPI History of Present Illness Chief Complaint: Fall Informant: patient Narrative Narrative: 71-year-old female states that yesterday she tripped on the stairs and fell forward. She struck her head on the screen door but did not sustain a loss of consciousness. She notes that she is on Coumadin for atrial fibrillation. She denies any vomiting. She notes in the right wrist and right forearm with limited range of motion due to that pain. She also notes pain of the right knee with swelling. She has been able to bear weight. She does not drive at night and therefore did not want to take an ambulance to be seen last night [facility] Medical History Asthma BMI greater than 30 Community acquired pneumonia CVA (cerebral vascular accident) Essential (primary) hypertension GERD (gastroesophageal reflux disease) HLD (hyperlipidemia) Migraine On amiodarone therapy Paroxysmal atrial fibrillation Secondary pulmonary arterial hypertension Suspected 2019 novel coronavirus infection (05/19/19) TIA (transient ischemic attack) Home Medications epinephrine 0.3 mg IM X1 05/04/13 [History Last Taken Unknown] loratadine 10 mg PO DAILY 05/04/13 [History Last Taken 02/10/19 07:00] albuterol sulfate 2 puff IH Q6H PRN PRN 12/26/15 [History Last Taken 09/09/19] pantoprazole 20 mg PO DAILY 12/26/15 [History Last Taken 09/13/19] cyclosporine 1 drp EACH EYE BID 03/28/16 [History Last Taken 09/13/19] meclizine 25 mg PO Q6H PRN 03/28/16 [History Last Taken 09/12/19] atorvastatin 40 mg PO DAILY 07/02/18 [History Last Taken 09/13/19] fluticasone propionate 2 spray NASAL DAILY PRN PRN 07/02/18 [History Last Taken 02/03/19] albuterol sulfate 2.5 mg INHALATION Q4H PRN PRN 12/04/18 [History Last Taken 12/01/18] ondansetron HCl 4 mg PO Q6H PRN 02/10/19 [History Last Taken Unknown] acetaminophen 650 mg PO Q6H PRN PRN tab 02/12/19 [Rx Last Taken 09/14/19] benzonatate 200 mg PO TID PRN #20 cap 04/26/19 [Rx Last Taken Unknown] amiodarone 200 mg tablet 200 mg PO DAILY #90 tab 10/13/19 [Rx Last Taken Unknown] warfarin 2 mg tablet 6 mg PO MOWE 12/10/19 [History Last Taken Unknown] warfarin 3 mg tablet 3 mg PO SUTUTHFRSA 12/10/19 [History Last Taken Unknown] verapamil 240 mg tablet,extended release 240 mg PO DAILY #90 tab 12/30/19 [Rx Last Taken Unknown] metoprolol tartrate 25 mg tablet 12.5 mg PO BID #90 tab 11/22/20 [Rx Last Taken Unknown] hydrocodone-acetaminophen 1 tab PO Q6H PRN PRN 3 Days #10 tablet 06/10/21 [Rx Last Taken Unknown] Allergy/AdvReac Type Severity Reaction Status Date / Time adhesive tape Allergy Rash Verified 06/10/21 08:14 propoxyphene HCl Allergy Rash Verified 06/10/21 08:14 [From Darvon] sulfamethoxazole Allergy Shortness Verified 06/10/21 08:14 [From Bactrim] of breath trimethoprim [From Bactrim] Allergy Shortness Verified 06/10/21 08:14 of breath venom-honey bee Allergy Anaphylaxis Verified 06/10/21 08:14 [bee venom (honey bee)] venom-wasp [wasp venom] Allergy Anaphylaxis Verified 06/10/21 08:14 prednisone AdvReac Diarrhea Verified 06/10/21 08:14 anything that stings Allergy Anaphylaxis Uncoded 06/10/21 08:14 banana peppers Allergy Hives Uncoded 06/10/21 08:14 FIBERGLASS Allergy Shortness Uncoded 06/10/21 08:14 of breath Family History Father CAD (coronary artery disease) Surgical History History of cholecystectomy history of mastoid tumor resection History of total hysterectomy Social History Smoking Status: Never smoker ROS ROS ED Constitutional Constitutional ED: Denies chills or weight loss Eyes Eyes: Denies change in vision or diplopia ENT ENT ED: Denies ear pain, rhinorrhea or sore throat Cardiovascular Cardiovascular: Denies chest pain, orthopnea, palpitations or racing heartbeat Respiratory/Chest Respiratory/Chest: Denies cough, dyspnea or orthopnea Gastrointestinal Gastrointestinal: Denies abdominal pain, diarrhea, nausea or vomiting Genitourinary Genitourinary ED: Denies dysuria, hematuria or urinary frequency Musculoskeletal Musculoskeletal: Reports other Details: See history of present illness ; Denies arthralgias or myalgias Integumentary Denies abscess or rash Neurologic Neurologic: Denies headache(s) or weakness Psychiatric Psychiatric: Denies anxiety, depression, suicidal ideation or suicidal thoughts Endocrine Endocrinology: Denies polydipsia, polyphagia or polyuria Allergic/Immunologic Allergic/Immunologic ED: Denies mouth swelling, tongue swelling or urticaria EXAM Physical Exam Const Vital Signs: 06/10/21 08:11 06/10/21 08:20 Temperature 98.3 F Temperature Source Temporal Pulse Rate 76 Respiratory Rate 16 Respiratory Effort Normal Non-Labored Respiratory Depth Normal Respiratory Pattern Normal Blood Pressure 156/91 H Blood Pressure Mean 112 Pulse Ox 99 Oxygen Delivery Method Room Air Room Air Positive well nourished, well developed and obese General Appearance ED: well developed Nutritional Appearance: obese HEENT Reports normocephalic, head/scalp atraumatic, TM's clear and moist mucous membranes atraumatic Tympanic Membrane ED: Yes TM's clear Eyes PERRL and EOMs intact bilaterally Neck full ROM, no lymphadenopathy, supple and no JVD General: Negative for tenderness Resp normal respiratory effort and clear to auscultation bilaterally Cardio regular rate, regular rhythm and no murmurs GI normal to inspection, nondistended, normoactive bowel sounds and non-tender Palpation: soft Back/Spine no CVA tenderness and normal ROM Extremity Extremity Narrative: Tenderness to palpation with some contusion and swelling over the medial right wrist. Painful pronation and supination. There are some mild swelling midshaft ulna. No tenderness to palpation of the radial head. There is swelling and some ecchymosis seen anterior to the right knee. Ligaments are stable General Extremety ED: Negative for edema General Extremity: Negative for edema Neuro oriented x3 and CN's II-XII intact bilaterally Sensorium / Orientation: alert Motor Exam: strength 5/5 throughout Psych mental status grossly normal Mood & Affect: Negative for depressed or tearful Skin no rashes or lesions noted and no wounds MDM MDM MDM Narrative Medical decision making narrative: My interpretation of the plain films of the right forearm wrist and knee x-rays as no acute fracture. CT of the brain demonstrates no acute cranial hemorrhage or fracture. Patient was given pain medication with recommend supportive care at home return if worsening or Radiography Diagnostic Testing: Clinical Impression(s) from Imaging Studies Brain CT 06/10/21 08:36 IMPRESSION: Normal unenhanced CT scan of the brain. Electronically Signed: Magdiel Cheung MD at 9:40 EDT , Forearm X-Ray 06/10/21 08:36 IMPRESSION: No fracture is seen. 3 mm density in the medial ventral soft tissues overlying the proximal ulna suggestive of a possible radiopaque foreign body. Electronically Signed: Magdiel Cheung MD at 9:58 EDT , Knee X-Ray 06/10/21 08:36 IMPRESSION: Degenerative arthrosis. Small joint effusion. Electronically Signed: Magdiel Cheung MD at 9:59 EDT , Wrist X-Ray 06/10/21 08:36 IMPRESSION: Degenerative changes. No acute abnormality is seen. Electronically Signed: Magdiel Cheung MD at 9:56 EDT , Discharge Plan Triage Chief Complaint: Fall ED Provider: Ludwin Stanley Dx/Rx/DC Orders Clinical Impression: residential current use of anticoagulant, Head injury, Contusion of right wrist, Contusion of forearm, right, Contusion of knee, right Instructions: ED Contusion, Lower Extremity, ED Contusion, Upper Extremity, ED Head Injury (Adult) Prescriptions: New hydrocodone-acetaminophen [hydrocodone-acetaminophen] 1 TABLET tablet 1 tab PO Q6H PRN PRN (Reason: Pain) 3 Days Qty: 10 RF: 0 No Action epinephrine 0.3 MG syringe 0.3 mg IM X1 RF: 0 loratadine 10 MG tablet 10 mg PO DAILY RF: 0 pantoprazole 20 MG tablet 20 mg PO DAILY RF: 0 albuterol sulfate 18 GM HFA aerosol inhaler 2 puff IH Q6H PRN PRN (Reason: Sob &/Or Wheezing) RF: 0 meclizine 25 MG tablet 25 mg PO Q6H PRN (Reason: Dizziness) RF: 0 cyclosporine 1 DROP dropperette 1 drp EACH EYE BID RF: 0 atorvastatin 20 MG tablet 40 mg PO DAILY RF: 0 fluticasone propionate 1 SPRAY spray,suspension 2 spray NASAL DAILY PRN PRN (Reason: Allergies) RF: 0 albuterol sulfate 2.5 MG/3 ML solution for nebulization 2.5 mg inhalation Q4H PRN PRN (Reason: Sob &/Or Wheezing) RF: 0 ondansetron HCl 8 MG tablet 4 mg PO Q6H PRN (Reason: Nausea) RF: 0 acetaminophen 325 MG tablet 650 mg PO Q6H PRN PRN (Reason: Pain Score 1-3/Temp > 100.7 F) RF: 0 benzonatate 100 MG capsule 200 mg PO TID PRN (Reason: Cough) Qty: 20 RF: 0 amiodarone 200 mg tablet 200 mg PO DAILY Qty: 90 RF: 3 warfarin 3 mg tablet 3 mg PO SUTUTHFR RF: 0 warfarin 2 mg tablet 6 mg PO MOWE RF: 0 verapamil 240 mg tablet extended release 240 mg PO DAILY Qty: 90 RF: 3 metoprolol tartrate 25 mg tablet 12.5 mg PO BID Qty: 90 RF: 3 Primary Care Provider: Paul Reynolds Referrals: Paul Reynolds MD [Primary Care Provider] - 1 Week if not improving Disposition Disposition: Home, Self Care
[2021-06-10 10:13] VITALS: PULSE 78; RESP 17; O2SAT 99
== END 2021-06-10 10:15 | disposition home or self-care (01) ==
PROVIDERS: Emergency Provider Emergency Medicine; PCP Family Medicine; Visit Provider Emergency Medicine
DX: S09.90XA Unspecified injury of head, initial encounter (principal); S80.01XA Contusion of right knee, initial encounter; S60.211A Contusion of right wrist, initial encounter; S50.11XA Contusion of right forearm, initial encounter; W18.09XA Striking against other object with subsequent fall, initial encounter; I27.20 Pulmonary hypertension, unspecified; I48.0 Paroxysmal atrial fibrillation; I10 Essential (primary) hypertension; E78.5 Hyperlipidemia, unspecified; K21.9 Gastro-esophageal reflux disease without esophagitis; Z86.73 Personal history of transient ischemic attack (TIA), and cerebral infarction without residual deficits; Z79.01 Long term (current) use of anticoagulants; Z79.899 Other long term (current) drug therapy
CPT/HCPCS: 70450; 73090; 73110; 73564; 99282

== ENCOUNTER 2021-06-18 23:52 | Observation (INO) | payer MEDICARE, SELFPAY ==
[2021-06-18 23:53] VITALS: PULSE 74; RESP 16; TEMP 36.4; O2SAT 93; BMI 34.8
[2021-06-19] VITALS (8 sets, daily range): BP systolic 123–163; BP diastolic 68–81; PULSE 60–82; RESP 15–18; TEMP 36.5–36.7; O2SAT 92–97; BMI 33.7
--- NOTE | 2021-06-19 00:06 | CT_ITS ---
STUDY: CT ABDOMEN AND PELVIS WITH CONTRAST REASON FOR EXAM: Female, 71 years old. llq pain RADIATION DOSAGE (If Supplied By Facility): CTDIvol = ( 15.37 ) mGy, DLP = ( 1053.10 ) mGycm TECHNIQUE: Transaxial images were obtained from the dome of the diaphragm to the symphysis pubis without oral contrast. IV 100mL Isovue-300 was administered. Sagittal and coronal images were reconstructed. Individualized dose optimization techniques were used for this CT. COMPARISON: CT abdomen pelvis 05/09/2018. FINDINGS: LOWER CHEST: Reticular opacities in the lung bases may be scarring or atelectasis. Small hiatal hernia. LIVER: Unremarkable. GALLBLADDER/BILE DUCTS: Gallbladder surgically absent. PANCREAS: Unremarkable. SPLEEN: Unremarkable. ADRENAL GLANDS: Unremarkable. KIDNEYS / URETERS: A few small cysts in the kidneys. No hydronephrosis. BOWEL / MESENTERY: Scattered diverticula in the colon. No bowel obstruction. Moderate amount stool in the colon mainly the ascending through transverse. APPENDIX: Identified and normal. No evidence of acute appendicitis. PERITONEUM: No free air. No free fluid. VESSELS: Abdominal aorta is normal caliber. RETROPERITONEUM: Unremarkable. REPRODUCTIVE ORGANS: Uterus not identified. BLADDER: Unremarkable. ABDOMINAL WALL: Heterogeneous enlargement of the abdominal wall left abdominal rectus muscle consistent with hematoma, begins above the umbilicus and extends to the pubic symphysis, largest component infraumbilical measures maximal 6.5 x 5.2 cm axial by 10 cm craniocaudal, with a fluid density level. There is a tiny hyperattenuating focus within the medial aspect of this larger component suspicious for active bleeding.. BONES: Degenerative changes lumbar spine with minimal anterolisthesis at L4-5. OTHER: None. CT/Abdomen/Pelvis W IV Cont ONLY IMPRESSION: Large abdominal wall rectus sheath hematoma on the left with possible small focus of active bleeding. No acute intra-abdominal findings. Colonic diverticulosis without evidence of acute diverticulitis. N.B. : The above Results were Read Back by Kaia Ledesma MD to Prakash Stephens MD, and understanding confirmed on 06/19/2021 02:03:58 (ET). Electronically Signed: Kaia Ledesma MD at 2:03 EDT ,
--- NOTE | 2021-06-19 00:07 | EDS_ITS ---
HPI HPI - GI History of Present Illness Chief Complaint: Abd Pain Narrative Narrative: Patient presents with left lower quadrant abdominal pain that she has had since Sunday, 4 days ago. She states she experienced a fall on Sunday and had bruising, and was seen in the emergency department the following day. She did have abdominal pain at that time, however, since then she developed left lower quadrant abdominal pain worse with movement. She states the bruising has improved, and she is having small amounts of bowel movements but has a lot of left lower quadrant pain. She lives at home alone. She called EMS because of her left lower quadrant abdominal pain. She denies any fevers or chills. No nausea or vomiting. No diarrhea. She denies any bloody stools. Past medical history includes atrial fibrillation on warfarin. She presents because of her left lower quadrant abdominal pain and decreased bowel movements. [facility] Medical History Asthma BMI greater than 30 Community acquired pneumonia CVA (cerebral vascular accident) Essential (primary) hypertension GERD (gastroesophageal reflux disease) HLD (hyperlipidemia) Migraine On amiodarone therapy Paroxysmal atrial fibrillation Secondary pulmonary arterial hypertension Suspected 2019 novel coronavirus infection (05/19/19) TIA (transient ischemic attack) Home Medications epinephrine 0.3 mg IM X1 05/04/13 [History Last Taken Unknown] loratadine 10 mg PO DAILY 05/04/13 [History Last Taken 02/10/19 07:00] albuterol sulfate 2 puff IH Q6H PRN PRN 12/26/15 [History Last Taken 09/09/19] pantoprazole 20 mg PO DAILY 12/26/15 [History Last Taken 09/13/19] cyclosporine 1 drp EACH EYE BID 03/28/16 [History Last Taken 09/13/19] meclizine 25 mg PO Q6H PRN 03/28/16 [History Last Taken 09/12/19] atorvastatin 40 mg PO DAILY 07/02/18 [History Last Taken 09/13/19] fluticasone propionate 2 spray NASAL DAILY PRN PRN 07/02/18 [History Last Taken 02/03/19] albuterol sulfate 2.5 mg INHALATION Q4H PRN PRN 12/04/18 [History Last Taken 12/01/18] ondansetron HCl 4 mg PO Q6H PRN 02/10/19 [History Last Taken Unknown] acetaminophen 650 mg PO Q6H PRN PRN tab 02/12/19 [Rx Last Taken 09/14/19] benzonatate 200 mg PO TID PRN #20 cap 04/26/19 [Rx Last Taken Unknown] amiodarone 200 mg tablet 200 mg PO DAILY #90 tab 10/13/19 [Rx Last Taken Unknown] warfarin 2 mg tablet 6 mg PO MOWE 12/10/19 [History Last Taken Unknown] warfarin 3 mg tablet 3 mg PO SUTUTHFRSA 12/10/19 [History Last Taken Unknown] verapamil 240 mg tablet,extended release 240 mg PO DAILY #90 tab 12/30/19 [Rx Last Taken Unknown] metoprolol tartrate 25 mg tablet 12.5 mg PO BID #90 tab 11/22/20 [Rx Last Taken Unknown] hydrocodone-acetaminophen 1 tab PO Q6H PRN PRN 3 Days #10 tablet 06/10/21 [Rx Last Taken Unknown] Allergy/AdvReac Type Severity Reaction Status Date / Time adhesive tape Allergy Rash Verified 06/18/21 23:58 propoxyphene HCl Allergy Rash Verified 06/18/21 23:58 [From Darvon] sulfamethoxazole Allergy Shortness Verified 06/18/21 23:58 [From Bactrim] of breath trimethoprim [From Bactrim] Allergy Shortness Verified 06/18/21 23:58 of breath venom-honey bee Allergy Anaphylaxis Verified 06/18/21 23:58 [bee venom (honey bee)] venom-wasp [wasp venom] Allergy Anaphylaxis Verified 06/18/21 23:58 prednisone AdvReac Diarrhea Verified 06/18/21 23:58 anything that stings Allergy Anaphylaxis Uncoded 06/18/21 23:58 banana peppers Allergy Hives Uncoded 06/18/21 23:58 FIBERGLASS Allergy Shortness Uncoded 06/18/21 23:58 of breath Family History Father CAD (coronary artery disease) Surgical History History of cholecystectomy history of mastoid tumor resection History of total hysterectomy Social History Smoking Status: Never smoker ROS ROS ED ROS Narrative Constitutional: No fever, no chills. HEENT: No sore throat. No neck pain. No loss of vision. No rhinorrhea. Cardiovascular: No chest pain. No palpitations. No pedal edema. Respiratory: No cough, no shortness of breath. Abdominal: Left lower quadrant abdominal pain. No nausea. No vomiting. No diarrhea. Decreased bowel movements. No bloody bowel movements or diarrhea. Feels bloated. Genitourinary: No dysuria. No hematuria. Musculoskeletal: No myalgias. No arthralgias. Neurologic: No headaches. No dizziness. No lightheadedness. Skin: No rash. No change in color. Psychiatric: No depression. No anxiety. EXAM Physical Exam Narrative Exam Narrative: Afebrile. Vital signs noted. HEENT: Normocephalic. Atraumatic. PERRL, EOMI. Neck soft and supple. No point tenderness or step off. Cardiovascular: Regular rate and rhythm. No murmurs, rubs, or gallops appreciated. Respiratory: No tachypnea. Lungs clear to auscultation bilaterally. Gastrointestinal: Abdomen soft, mild tenderness left lower quadrant with normoactive bowel sounds. No rebound or guarding. Neurological: Awake. Alert. Nonfocal, nonlateralizing. Skin: No rash. Normal color. No pallor. Musculoskeletal: No pedal edema. Full range of motion extremities. Const Vital Signs: 06/18/21 23:53 06/19/21 01:52 Temperature 97.6 F L Temperature Source Temporal Pulse Rate 74 74 Respiratory Rate 16 16 Pulse Ox 93 97 Oxygen Delivery Method Room Air Room Air MDM MDM MDM Narrative Medical decision making narrative: Comprehensive work-up was pursued. I will obtain CT imaging along with basic laboratory work. She has bolus normal saline 1 L intravenously. She will be given morphine for analgesia. She has normal white count of 8.1, hemoglobin normal at 12.4. Platelet count normal at 309. INR is elevated at 3.7, slightly supratherapeutic. Urinalysis shows no evidence of infection nitrites but 100 leukocytes. There are only 0-5 WBCs. I do not feel antibiotics are indicated. I received a call from the radiologist who stated that the patient has a moderately sized abdominal wall hematoma in the left lower quadrant. There is questionable brightness which could be a blood vessel but also possible active bleeding. She will be administered vitamin K 5 mg intravenously. Patient did require more analgesia. I discussed the plan with Dr. Spivey on for general surgery who agrees with reversal and admission to medicine. As the patient lives alone and there is the possibility of active bleeding according to the radiologist, along with the patient requiring better pain control, I will discuss the patient with the hospitalist, Dr. Viramontes for assignment to observation. Patient is in stable condition. Lab Data Attestation: I reviewed the patient's lab results. Labs: Laboratory Results - last 24 hr 06/19/21 06/19/21 06/19/21 00:21 00:30 00:30 WBC 8.1 RBC 4.78 Hgb 12.4 Hct 39.2 MCV 82.0 MCH 25.9 L MCHC 31.6 L RDW Std Deviation 42.5 RDW Coeff of Kahlil 14.5 Plt Count 309 MPV 10.3 Immature Gran % (Auto) 0.400 Neut % (Auto) 67.3 Lymph % (Auto) 19.9 [place] % (Auto) 10.5 H Eos % (Auto) 1.4 Baso % (Auto) 0.5 Absolute Neuts (auto) 5.5 Absolute Lymphs (auto) 1.62 Nucleated RBC % 0 PT 36.1 H INR 3.7 Sodium Potassium Chloride Carbon Dioxide Anion Gap BUN Creatinine Estim Creat Clear Calc Est GFR (MDRD) Af Amer Est GFR (MDRD) Non-Af BUN/Creatinine Ratio Glucose Calcium Total Bilirubin AST ALT Alkaline Phosphatase Total Protein Albumin Globulin Albumin/Globulin Ratio Urine Color Yellow Urine Clarity Clear Urine pH 5.0 Ur Specific [place] 1.030 Urine Protein 15 H Urine Glucose (UA) Normal Urine Ketones Negative Urine Occult Blood 25 H Urine Nitrite Negative Urine Bilirubin Negative Urine Urobilinogen Normal Ur Leukocyte Esterase 100 H Urine RBC 0 SEEN Urine WBC 0-5 SEEN Ur Squamous Epith Cells 0-5 SEEN Urine Bacteria 1+ Urine Mucus 0 SEEN 06/19/21 00:30 WBC RBC Hgb Hct MCV MCH MCHC RDW Std Deviation RDW Coeff of [place]ahlil Plt Count MPV Immature Gran % (Auto) Neut % (Auto) Lymph % (Auto) [place] % (Auto) Eos % (Auto) Baso % (Auto) Absolute Neuts (auto) Absolute Lymphs (auto) Nucleated RBC % PT INR Sodium 139 Potassium 3.6 Chloride 110 H Carbon Dioxide 24.0 Anion Gap 5 BUN 22 H Creatinine 0.90 Estim Creat Clear Calc 54.45 Est GFR (MDRD) Af Amer 79 Est GFR (MDRD) Non-Af 65 BUN/Creatinine Ratio 24.3 H Glucose 111 H Calcium 8.6 Total Bilirubin 0.50 AST 27 ALT 34 Alkaline Phosphatase 153 H Total Protein 7.0 Albumin 3.3 Globulin 3.7 Albumin/Globulin Ratio 0.9 Urine Color Urine Clarity Urine pH Ur Specific [place] Urine Protein Urine Glucose (UA) Urine Ketones Urine Occult Blood Urine Nitrite Urine Bilirubin Urine Urobilinogen Ur Leukocyte Esterase Urine RBC Urine WBC Ur Squamous Epith Cells Urine Bacteria Urine Mucus Discharge Plan Dx/Rx/DC Orders Clinical Impression: Traumatic hematoma of abdominal wall, Fall, Supratherapeutic INR Disposition Disposition: Acute Care Hospital [facility]
[2021-06-19 00:36] LABS: Mucous, Urine 0 SEEN /hpf (<or=2+); Red Blood Cells-Urine 0 SEEN /hpf (0-5)
[2021-06-19] MEDS: 0.9% Normal Saline 1,000 ML 1000 ML IV (00:38)
[2021-06-19] MEDS: Morphine 2 MG/ML Syringe IV (00:40)
[2021-06-19 00:44] LABS: Color, Urine Yellow (Yellow); Glucose, Dipstick Normal (Normal); Ketone-Dipstick Negative (Negative); Leukocyte Esterase-Dipstick 100 /ul (Negative); Nitrite-Dipstick Negative (Negative); Occult Blood-Urine 25 /ul (Negative); Protein-Dipstick 15 mg/dl (Negative); Urine Bilirubin Dipstick Negative (Negative); Urine Clarity Clear (Clear); Urine Urobilinogen Normal (Normal)
[2021-06-19 00:46] LABS: International Normalized Ratio 3.7; Prothrombin Time (Protime)PT. 36.1 SECONDS (11.7-14.9)
[2021-06-19 00:50] LABS: Bacteria 1+ /hpf (None Seen); Squamous Epithelial Cells - UA 0-5 SEEN /hpf (5-10); White Blood Cells 0-5 SEEN /hpf (0-5)
[2021-06-19 00:51] LABS: ALB/GLOB Ratio 0.9 RATIO (0.9-2.4); AST(SGOT) 27 U/L (15-37); Alanine Aminotransfer ALT/SGPT 34 U/L (13-56); Albumin, Serum 3.3 g/dL (3.2-5.0); Alkaline Phosphatase 153 U/L (45-117); Anion Gap 5 (5-15); BUN 22 mg/dL (7-18); BUN/Creat Ratio 24.3 RATIO (10-20); Calcium,Total 8.6 mg/dL (8.5-10.1); Chloride 110 mmol/L (98-107); EST Glomerular Filtration Rate 65 mL/min (>60); Est Glom Filt Rate - Afr Amer 79 mL/min (>60); Estimated Creatinine Clearance 54.45 ml/min; Globulin 3.7 g/dL (2.2-4.2); Glucose 111 mg/dL (74-106); Potassium 3.6 mmol/L (3.5-5.1); Sodium Level 139 mmol/L (136-145)
[2021-06-19 00:54] LABS: Absolute Lymphocyte Count 1.62 X10^3/uL (0.83-4.51); Absolute Neutrophil Count 5.5 X10^3/uL (2.0-7.7); Basophil# 0.04 X10^3/uL; Basophil% 0.5 % (0-1); Eosinophil# 0.11 X10^3/uL; Eosinophils% 1.4 % (0-5); Hematocrit 39.2 % (37-47); Hemoglobin 12.4 g/dL (12.0-15.0); Lymphocyte # 1.62 X10^3/ul (0.83-4.51); Lymphocyte % 19.9 % (19-41); Mean Corp Hgb Conc 31.6 g/dL (32-36); Mean Corpuscular Hgb 25.9 pg (27.0-32.0); Mean Platelet Vol. 10.3 fl (6.2-12.0); Monocyte# 0.85 X10^3/uL; Monocyte% 10.5 % (0-10); NRBC Flagged by Analyzer 0 % (0-5); Neutrophil # 5.48 X10^3/uL (2.7-7.7); Neutrophil % 67.3 % (47-70); Platelet Count 309 K/mm3 (150-450); RBC Distribution Width CV 14.5 % (11.6-14.6); RBC Distribution Width SD 42.5 fl (35.1-43.9); Red Blood Count 4.78 M/mm3 (4.2-5.4); White Blood Count 8.1 K/mm3 (4.4-11.0)
--- NOTE | 2021-06-19 02:22 | HP.PCM.HOS_ITS ---
HPI - General HPI Narrative ROMAIN LOMBARDO, is a 71 F who presents who fell 4 days ago and hit her abdomen. Since then she noticed a lump and was having some abdominal pain. CT scan in the ER demonstrates a rectus sheath hematoma however her hemoglobin is 12.4 indicating that the bleed is likely stopped at this time. Of concern is the fact that her INR is 3.7 secondary to being on Coumadin for A. fib. She is fallen a couple of times that there is the first time she is ever had any significant bruising. She states that she had fallen as she had gone to the top of the porch and she just fell forward. She denies loss of consciousness and she remembers the fall but she does remember why, though at the time she was holding onto her dog so it is possible that he caused her disequilibrium. [facility] Medical History Asthma BMI greater than 30 Community acquired pneumonia CVA (cerebral vascular accident) Essential (primary) hypertension GERD (gastroesophageal reflux disease) HLD (hyperlipidemia) Migraine On amiodarone therapy Paroxysmal atrial fibrillation Secondary pulmonary arterial hypertension Suspected 2019 novel coronavirus infection (05/19/19) TIA (transient ischemic attack) Home Medications epinephrine 0.3 mg IM X1 05/04/13 [History Last Taken Unknown] loratadine 10 mg PO DAILY 05/04/13 [History Last Taken 02/10/19 07:00] albuterol sulfate 2 puff IH Q6H PRN PRN 12/26/15 [History Last Taken 09/09/19] pantoprazole 20 mg PO DAILY 12/26/15 [History Last Taken 09/13/19] cyclosporine 1 drp EACH EYE BID 03/28/16 [History Last Taken 09/13/19] meclizine 25 mg PO Q6H PRN 03/28/16 [History Last Taken 09/12/19] atorvastatin 40 mg PO DAILY 07/02/18 [History Last Taken 09/13/19] fluticasone propionate 2 spray NASAL DAILY PRN PRN 07/02/18 [History Last Taken 02/03/19] albuterol sulfate 2.5 mg INHALATION Q4H PRN PRN 12/04/18 [History Last Taken 12/01/18] ondansetron HCl 4 mg PO Q6H PRN 02/10/19 [History Last Taken Unknown] acetaminophen 650 mg PO Q6H PRN PRN tab 02/12/19 [Rx Last Taken 09/14/19] benzonatate 200 mg PO TID PRN #20 cap 04/26/19 [Rx Last Taken Unknown] amiodarone 200 mg tablet 200 mg PO DAILY #90 tab 10/13/19 [Rx Last Taken Unknown] warfarin 2 mg tablet 6 mg PO MOWE 12/10/19 [History Last Taken Unknown] warfarin 3 mg tablet 3 mg PO SUTUTHFRSA 12/10/19 [History Last Taken Unknown] verapamil 240 mg tablet,extended release 240 mg PO DAILY #90 tab 12/30/19 [Rx Last Taken Unknown] metoprolol tartrate 25 mg tablet 12.5 mg PO BID #90 tab 11/22/20 [Rx Last Taken Unknown] hydrocodone-acetaminophen 1 tab PO Q6H PRN PRN 3 Days #10 tablet 06/10/21 [Rx Last Taken Unknown] Allergy/AdvReac Type Severity Reaction Status Date / Time adhesive tape Allergy Rash Verified 06/18/21 23:58 propoxyphene HCl Allergy Rash Verified 06/18/21 23:58 [From Darvon] sulfamethoxazole Allergy Shortness Verified 06/18/21 23:58 [From Bactrim] of breath trimethoprim [From Bactrim] Allergy Shortness Verified 06/18/21 23:58 of breath venom-honey bee Allergy Anaphylaxis Verified 06/18/21 23:58 [bee venom (honey bee)] venom-wasp [wasp venom] Allergy Anaphylaxis Verified 06/18/21 23:58 prednisone AdvReac Diarrhea Verified 06/18/21 23:58 anything that stings Allergy Anaphylaxis Uncoded 06/18/21 23:58 banana peppers Allergy Hives Uncoded 06/18/21 23:58 FIBERGLASS Allergy Shortness Uncoded 06/18/21 23:58 of breath Family History Father CAD (coronary artery disease) Surgical History History of cholecystectomy history of mastoid tumor resection History of total hysterectomy Social History Smoking Status: Never smoker ROS Constitutional Constitutional: Denies chills, fatigue, fever(s) or malaise Eyes Eyes: Denies blurry vision ENT HEENT: Denies headache(s) or nasal discharge Cardiovascular Cardiovascular: Denies chest pain, dyspnea on exertion or syncope Respiratory/Chest Respiratory/Chest: Denies cough, shortness of breath at rest or shortness of breath with exertion Gastrointestinal Gastrointestinal: Denies constipation, diarrhea, nausea or vomiting Genitourinary Genitourinary: Denies dysuria Neurologic Neurologic: Denies focal weakness, numbness or tremor(s) Psychiatric Psychiatric: Denies anxiety or depression Vital Signs Vital Signs Vital Signs: 06/18/21 23:53 06/19/21 01:52 Temperature 97.6 F L Temperature Source Temporal Pulse Rate 74 74 Respiratory Rate 16 16 Pulse Ox 93 97 Oxygen Delivery Method Room Air Room Air Weight Weight: 215 lb 13.321 oz Body Mass Index (BMI) 34.8 Physical Exam Const alert and oriented x3 General Appearance: cooperative HEENT normocephalic and moist oral mucous membranes Eyes PERRL, EOMs intact bilaterally and conjunctivae normal Neck supple and no JVD Resp normal respiratory effort, no retractions, no use of accessory muscles and clear to auscultation bilaterally Auscultation: Negative for crackles, rales, rhonchi or wheezes Cardio regular rate, regular rhythm, S1 normal heart sound, S2 normal heart sound and no murmurs GI soft to palpation, non-tender and non-distended; Negative for hepatosplenomegaly GI Narrative: She does have a lump corresponding to the rectus sheath hematoma, this does have mild tenderness to palpation but she does not have abdominal pain Extremity no clubbing, cyanosis or edema Skin no rashes or lesions noted Neuro no focal motor deficits and no sensory deficits noted Psych affect normal Appearance: appropriate Results Lab / Micro Data Result Diagrams: 06/19/21 00:30 06/19/21 00:30 Labs: Laboratory Results - last 24 hr 06/19/21 00:21: Urine Color Yellow, Urine Clarity Clear, Urine pH 5.0, Ur Specific [place] 1.030, Urine Protein 15 H, Urine Glucose (UA) Normal, Urine Ketones Negative, Urine Occult Blood 25 H, Urine Nitrite Negative, Urine Bilirubin Negative, Urine Urobilinogen Normal, Ur Leukocyte Esterase 100 H, Urine RBC 0 SEEN, Urine WBC 0-5 SEEN, Ur Squamous Epith Cells 0-5 SEEN, Urine Bacteria 1+, Urine Mucus 0 SEEN 06/19/21 00:30: WBC 8.1, RBC 4.78, Hgb 12.4, Hct 39.2, MCV 82.0, MCH 25.9 L, MCHC 31.6 L, RDW Std Deviation 42.5, RDW Coeff of Kahlil 14.5, Plt Count 309, MPV 10.3, Immature Gran % (Auto) 0.400, Neut % (Auto) 67.3, Lymph % (Auto) 19.9, [place] % (Auto) 10.5 H, Eos % (Auto) 1.4, Baso % (Auto) 0.5, Absolute Neuts (auto) 5.5, Absolute Lymphs (auto) 1.62, Nucleated RBC % 0 06/19/21 00:30: PT 36.1 H, INR 3.7 06/19/21 00:30: Sodium 139, Potassium 3.6, Chloride 110 H, Carbon Dioxide 24.0, Anion Gap 5, BUN 22 H, Creatinine 0.90, Estim Creat Clear Calc 54.45, Est GFR (MDRD) Af Amer 79, Est GFR (MDRD) Non-Af 65, BUN/Creatinine Ratio 24.3 H, Glucose 111 H, Calcium 8.6, Total Bilirubin 0.50, AST 27, ALT 34, Alkaline Phosphatase 153 H, Total Protein 7.0, Albumin 3.3, Globulin 3.7, Albumin/Globulin Ratio 0.9 Radiology Impression Abdomen/Pelvis CT 06/19/21 00:06 IMPRESSION: Large abdominal wall rectus sheath hematoma on the left with possible small focus of active bleeding. No acute intra-abdominal findings. Colonic diverticulosis without evidence of acute diverticulitis. N.B. : The above Results were Read Back by Kaia Ledesma MD to Prakash Stephens MD, and understanding confirmed on 06/19/2021 02:03:58 (ET). Electronically Signed: Kaia Ledesma MD at 2:03 EDT , Assessment & Plan Assessment/Plan (1) Traumatic hematoma of abdominal wall: PLAN: 1. Rectus sheath hematoma secondary to a fall ? We will hold her Coumadin ? We will repeat CBC in the morning monitor her hemoglobin ? PT/OT ? Tylenol for pain control 2. HTN/HLD/A. fib ? We will continue her home amiodarone, lipid, will, verapamil but will hold her Coumadin ? We will check INR in the morning ? Blood pressures are stable 3. GERD ? Stable ? Continue with PPI DVT: Supratherapeutic INR Charges/Coding Visit Charges OBSV E&M: 88571 Initial observation care L2
[2021-06-19] MEDS: Morphine 4 MG/ML Syringe IV (02:24)
[2021-06-19] MEDS: Acetaminophen 325 MG Tablet 650 MG PO ×3 (03:24→20:22)
[2021-06-19 06:15] LABS: Absolute Lymphocyte Count 1.64 X10^3/uL (0.83-4.51); Absolute Neutrophil Count 4.4 X10^3/uL (2.0-7.7); Basophil# 0.03 X10^3/uL; Basophil% 0.4 % (0-1); Eosinophil# 0.13 X10^3/uL; Eosinophils% 1.9 % (0-5); Hemoglobin 11.2 g/dL (12.0-15.0); Lymphocyte # 1.64 X10^3/ul (0.83-4.51); Lymphocyte % 23.4 % (19-41); Mean Corp Hgb Conc 31.1 g/dL (32-36); Mean Corpuscular Volume 83.7 fL (81-99); Mean Platelet Vol. 9.7 fl (6.2-12.0); Monocyte# 0.81 X10^3/uL; Monocyte% 11.6 % (0-10); NRBC Flagged by Analyzer 0 % (0-5); Neutrophil # 4.37 X10^3/uL (2.7-7.7); Neutrophil % 62.3 % (47-70); Platelet Count 253 K/mm3 (150-450); RBC Distribution Width CV 14.5 % (11.6-14.6); RBC Distribution Width SD 43.9 fl (35.1-43.9)
[2021-06-19 06:21] LABS: International Normalized Ratio 2.5; Prothrombin Time (Protime)PT. 26.6 SECONDS (11.7-14.9)
--- NOTE | 2021-06-19 07:46 | NURSING ---
pt's son alyse called in, update given
[2021-06-19] MEDS: Verapamil SR 240 MG Tablet PO (08:51)
[2021-06-19] MEDS: Metoprolol Tartrate 25 MG Tablet 12.5 MG PO ×2 (08:51→20:22)
[2021-06-19] MEDS: Pantoprazole Sodium 20 MG Tablet PO (08:52)
[2021-06-19] MEDS: Amiodarone 200 MG Tablet PO (08:52)
--- NOTE | 2021-06-19 09:44 | PCM.PN.HOSP ---
Documented by User: Alyssia Banegas NP, [employer] 06/19/21 10:07 Subjective Subjective Patient seen and examined. Reports abdominal discomfort, worse with movement. States she has had a few falls at home recently. She states she has left foot drop and recently got a new brace. Objective Data Objective Data Vital Signs: Vital Signs Temp Pulse Resp BP Pulse Ox 97.8 F 82 18 158/75 H 96 06/19/21 08:44 06/19/21 08:51 06/19/21 08:44 06/19/21 08:44 06/19/21 08:44 Oxygen Delivery Method Room Air Weight: 209 lb 3.499 oz Body Mass Index (BMI) 33.7 Intake & Output: Intake and Output for Last 24 Hours 06/17/21 06/18/21 06/19/21 23:59 23:59 23:59 Intake Total 1250.5 / 1250.5 Balance 1250.5 / 1250.5 Lab / Micro Data Result Diagrams: 06/19/21 05:36 06/19/21 00:30 Labs: Laboratory Results - last 24 hr 06/19/21 00:21: Urine Color Yellow, Urine Clarity Clear, Urine pH 5.0, Ur Specific [place] 1.030, Urine Protein 15 H, Urine Glucose (UA) Normal, Urine Ketones Negative, Urine Occult Blood 25 H, Urine Nitrite Negative, Urine Bilirubin Negative, Urine Urobilinogen Normal, Ur Leukocyte Esterase 100 H, Urine RBC 0 SEEN, Urine WBC 0-5 SEEN, Ur Squamous Epith Cells 0-5 SEEN, Urine Bacteria 1+, Urine Mucus 0 SEEN 06/19/21 00:30: WBC 8.1, RBC 4.78, Hgb 12.4, Hct 39.2, MCV 82.0, MCH 25.9 L, MCHC 31.6 L, RDW Std Deviation 42.5, RDW Coeff of Kahlil 14.5, Plt Count 309, MPV 10.3, Immature Gran % (Auto) 0.400, Neut % (Auto) 67.3, Lymph % (Auto) 19.9, [place] % (Auto) 10.5 H, Eos % (Auto) 1.4, Baso % (Auto) 0.5, Absolute Neuts (auto) 5.5, Absolute Lymphs (auto) 1.62, Nucleated RBC % 0 06/19/21 00:30: PT 36.1 H, INR 3.7 06/19/21 00:30: Sodium 139, Potassium 3.6, Chloride 110 H, Carbon Dioxide 24.0, Anion Gap 5, BUN 22 H, Creatinine 0.90, Estim Creat Clear Calc 54.45, Est GFR (MDRD) Af Amer 79, Est GFR (MDRD) Non-Af 65, BUN/Creatinine Ratio 24.3 H, Glucose 111 H, Calcium 8.6, Total Bilirubin 0.50, AST 27, ALT 34, Alkaline Phosphatase 153 H, Total Protein 7.0, Albumin 3.3, Globulin 3.7, Albumin/Globulin Ratio 0.9 06/19/21 05:36: WBC 7.0, RBC 4.30, Hgb 11.2 L, Hct 36.0 L, MCV 83.7, MCH 26.0 L, MCHC 31.1 L, RDW Std Deviation 43.9, RDW Coeff of Kahlil 14.5, Plt Count 253, MPV 9.7, Immature Gran % (Auto) 0.400, Neut % (Auto) 62.3, Lymph % (Auto) 23.4, [place] % (Auto) 11.6 H, Eos % (Auto) 1.9, Baso % (Auto) 0.4, Absolute Neuts (auto) 4.4, Absolute Lymphs (auto) 1.64, Nucleated RBC % 0 06/19/21 06:05: PT 26.6 H, INR 2.5 Radiography Diagnostic Testing: Radiology Impression Abdomen/Pelvis CT 06/19/21 00:06 IMPRESSION: Large abdominal wall rectus sheath hematoma on the left with possible small focus of active bleeding. No acute intra-abdominal findings. Colonic diverticulosis without evidence of acute diverticulitis. N.B. : The above Results were Read Back by Kaia Ledesma MD to Prakash Stephens MD, and understanding confirmed on 06/19/2021 02:03:58 (ET). Electronically Signed: Kaia Ledesma MD at 2:03 EDT , Physical Exam Const alert, oriented x3 and no apparent distress Orientation / Consciousness: awake, oriented to person, oriented to place and oriented to time Nutritional Appearance: obese HEENT normocephalic and moist oral mucous membranes Eyes PERRL, EOMs intact bilaterally and conjunctivae normal Neck no lymphadenopathy Resp normal respiratory effort and clear to auscultation bilaterally Cardio regular rate, regular rhythm and no murmurs Peripheral Pulses: pulses 2+ throughout GI normal to inspection, nondistended, normoactive bowel sounds and non-distended Palpation: tender Extremity normal to inspection Extremity Narrative: Left foot drop, chronic Skin no rashes or lesions noted Lesions: no lesions Rashes: no rashes Trauma: no lacerations or abrasions Neuro CN's II-XII intact bilaterally, no focal motor deficits, no sensory deficits noted and deep tendon reflexes 2+ bilaterally Psych mental status grossly normal and affect normal Assessment & Plan Assessment/Plan (1) Traumatic hematoma of abdominal wall: PLAN: 1. Traumatic rectus sheath hematoma secondary to mechanical fall-patient denies syncope. Coumadin on hold. Trend CBC/INR. As needed pain regimen. 2. Left foot drop, chronic-with recent falls. PT/OT. Fall precautions. 3. Paroxysmal atrial fibrillation-on amiodarone, metoprolol, verapamil. Coumadin on hold. 4. Hypertension-stable, continue home regimen. 5. Hyperlipidemia-continue statin. 6. GERD-continue PPI. 7. Asthma-no exacerbation. As needed albuterol aerosol DVT prophylaxis- SCDs This patient was seen by MADELINE Sanabria under the supervision of Dr. Griffin. Time spent examining patient, reviewing data and subsequent management of care: 12 minutes Documented by User: Dr. Maxine Griffin MD 06/19/21 11:27 Objective Data Lab / Micro Data Result Diagrams: 06/19/21 05:36 06/19/21 00:30 Charges/Coding Addendum Addendum: Patient seen by Alyssia CORREA under my supervision Patient seen and examined. She complained of left lower quadrant pain. She denied any dizziness, lightheadedness, palpitations, nausea or vomiting or diarrhea. Review of systems is otherwise negative. O/E: Const alert, oriented x3 and no apparent distress Orientation / Consciousness: awake, oriented to person, oriented to place and oriented to time Nutritional Appearance: obese HEENT normocephalic and moist oral mucous membranes Eyes PERRL, EOMs intact bilaterally and conjunctivae normal Neck no lymphadenopathy Resp normal respiratory effort and clear to auscultation bilaterally Cardio regular rate, regular rhythm and no murmurs Peripheral Pulses: pulses 2+ throughout GI normal to inspection, nondistended, normoactive bowel sounds and non-distended Palpation: has moderate left lower quadrant tenderness, no guarding or rebound tenderness. Extremity normal to inspection Skin no rashes or lesions noted Lesions: no lesions Rashes: no rashes Trauma: no lacerations or abrasions Neuro CN's II-XII intact bilaterally, no focal motor deficits, no sensory deficits noted and deep tendon reflexes 2+ bilaterally Psych mental status grossly normal and affect normal Assessment and plan. #REctus sheath hematoma due to mechanical fall Also aggravated by patient being on Coumadin. She tripped on her porch and fell. Coumadin is on hold. Hemoglobin is 11.2. Was 12.4 on admission. Will check globin again this afternoon to see if this continues downward trend or otherwise. #Chronic left foot drop. Has had several falls recently at home. PT OT on board. Fall precautions. #Paroxysmal A. fib: On amiodarone and metoprolol. Coumadin on hold currently. INR was 2.5. In light of her recent falls, I think will be prudent to discuss with cardiology about whether to continue with Coumadin or otherwise. #Hypertension: On metoprolol. DVT prophylaxis: SCDs. Rest as per MADELINE Sanabria's notes which I have reviewed and endorsed. Total time spent on care of the patient today: 22 mins, with Alyssia Banegas spending 12 mins making a total of 34 mins Visit Charges Inpatient E&M: 10344 Subs Hosp L2
[2021-06-19 12:38] LABS: Hemoglobin 11.7 g/dL (12.0-15.0)
[2021-06-19] MEDS: Atorvastatin Calcium 40 MG Tablet PO (20:22)
[2021-06-20 02:20] VITALS: BP 122/64; PULSE 65; RESP 16; TEMP 36.9; O2SAT 96
[2021-06-20 06:28] LABS: Absolute Lymphocyte Count 1.23 X10^3/uL (0.83-4.51); Absolute Neutrophil Count 3.6 X10^3/uL (2.0-7.7); Basophil# 0.04 X10^3/uL; Basophil% 0.7 % (0-1); Eosinophil# 0.14 X10^3/uL; Eosinophils% 2.5 % (0-5); Hematocrit 36.4 % (37-47); Hemoglobin 11.3 g/dL (12.0-15.0); Lymphocyte # 1.23 X10^3/ul (0.83-4.51); Lymphocyte % 22.2 % (19-41); Mean Corpuscular Hgb 26.1 pg (27.0-32.0); Mean Corpuscular Volume 84.1 fL (81-99); Mean Platelet Vol. 10.1 fl (6.2-12.0); Monocyte# 0.54 X10^3/uL; Monocyte% 9.7 % (0-10); NRBC Flagged by Analyzer 0 % (0-5); Neutrophil # 3.58 X10^3/uL (2.7-7.7); Neutrophil % 64.5 % (47-70); Platelet Count 272 K/mm3 (150-450); RBC Distribution Width CV 14.4 % (11.6-14.6); RBC Distribution Width SD 44.1 fl (35.1-43.9); Red Blood Count 4.33 M/mm3 (4.2-5.4); White Blood Count 5.6 K/mm3 (4.4-11.0)
[2021-06-20 06:41] LABS: International Normalized Ratio 1.3; Prothrombin Time (Protime)PT. 16.1 SECONDS (11.7-14.9)
[2021-06-20 08:00] VITALS: BP 167/75; PULSE 66; RESP 18; TEMP 36.5; O2SAT 95
[2021-06-20] MEDS: Verapamil SR 240 MG Tablet PO (08:09)
[2021-06-20] MEDS: Acetaminophen 325 MG Tablet 650 MG PO (08:09)
[2021-06-20] MEDS: Pantoprazole Sodium 20 MG Tablet PO (08:09)
[2021-06-20 08:10] VITALS: PULSE 66
[2021-06-20] MEDS: Amiodarone 200 MG Tablet PO (08:10)
[2021-06-20] MEDS: Metoprolol Tartrate 25 MG Tablet 12.5 MG PO (08:10)
--- NOTE | 2021-06-20 09:55 | CASEMGMT ---
Addendum entered by Bere Solitario 06/20/21 13:06: CHAPARRITA LEONG received tc back from Susan, able to see pt for SOC tomorrow. Addendum entered by Bere Solitario 06/20/21 11:54: CHAPARRITA LEONG in to pt room, pt chooses for HHC 1. [facility] 2. [facility] 3. [facility]. TC to Susan at [facility], referral made. She will review and call CHAPARRITA LEONG back with acceptance. Pt states she has checked with [employer] for rec items from therapist and will purchase. Addendum entered by Bere Solitario 06/20/21 11:33: Faxed [facility] script for FWW at this time. Addendum entered by Bere Solitario 06/20/21 11:28: Therapy states HH is appropriate for pt and is recommending a FWW. CHAPARRITA LEONG in to pt room, pt chooses [employer] for DME. Patient was provided a list of [facility] providers including quality and resource use data and consistent with the patient?s preferred geographic region, medical needs, and insurance network. Patient to review list and CHAPARRITA LEONG to check back. CHAPARRITA LEONG in to discuss [place] form with patient. RN SALO explained H[place] form, patient voiced understanding. Pt signed form and filed in chart. Pt provided with a copy of signed [place] form. Patient had no further questions or concerns at this time. Addendum entered by Bere Solitario 06/20/21 10:37: CHAPARRITA LEONG back into pt room, therapy working with pt currently. Made therapy aware of plan and if another plan is suggested to notify CHAPARRITA LEONG. Updated [employer] hospitalist of current plan. Original Note: Reviewed therapy evals. CHAPARRITA LEONG in to pt room, pt sitting up in chair. Discussed dc planning. Pt states she has fallen 2x in the last 6 mos, states she is typically I in ADL's. Discussed having HHC vs outpt therapy. Pt states she would like HHC but has a dog at home and does not know if she can put dog in separate room while receiving HHC. Discussed outpt therapy and pt states she does not know if she can do this currently as she has pain. Made pt aware she could start with HHC then transition to outpt, she is agreeable to this. CHAPARRITA LEONG to come back with HHC list for pt.
--- NOTE | 2021-06-20 10:14 | DCINST_ITS ---
Discharge Instructions Diet Discharge Diet: Low fat / Low cholesterol Activity Discharge Activity: Return to Normal Activity Dressing / Incision Call your doctor if you observe: Shortness of breath, Dizziness and Chest pain Follow Up Care Test Results: Test results from this visit will be discussed in further detail at your follow-up appointment, if applicable. Discharge Plan Admission Admit Date/Time: 06/19/21 02:27 Primary Reason for Your Visit: Rectus sheath hematoma Attending Provider: Mariangel Bose Primary Care Provider: Paul Reynolds Instructions Additional Instructions / Restrictions: Hold Coumadin until further follow up with PCP and cardiology. Discharge Orders/Prescriptions Prescriptions: Continued epinephrine 0.3 MG syringe 0.3 mg IM X1 RF: 0 loratadine 10 MG tablet 10 mg PO DAILY RF: 0 pantoprazole 20 MG tablet 20 mg PO DAILY RF: 0 albuterol sulfate 18 GM HFA aerosol inhaler 2 puff IH Q6H PRN PRN (Reason: Sob &/Or Wheezing) RF: 0 meclizine 25 MG tablet 25 mg PO Q6H PRN (Reason: Dizziness) RF: 0 cyclosporine 1 DROP dropperette 1 drp EACH EYE BID RF: 0 atorvastatin 20 MG tablet 40 mg PO DAILY RF: 0 fluticasone propionate 1 SPRAY spray,suspension 2 spray NASAL DAILY PRN PRN (Reason: Allergies) RF: 0 albuterol sulfate 2.5 MG/3 ML solution for nebulization 2.5 mg inhalation Q4H PRN PRN (Reason: Sob &/Or Wheezing) RF: 0 ondansetron HCl 8 MG tablet 4 mg PO Q6H PRN (Reason: Nausea) RF: 0 acetaminophen 325 MG tablet 650 mg PO Q6H PRN PRN (Reason: Pain Score 1-3/Temp > 100.7 F) RF: 0 benzonatate 100 MG capsule 200 mg PO TID PRN (Reason: Cough) Qty: 20 RF: 0 hydrocodone-acetaminophen 1 TABLET tablet 1 tab PO Q6H PRN PRN (Reason: Pain) 3 Days Qty: 10 RF: 0 amiodarone 200 mg tablet 200 mg PO DAILY Qty: 90 RF: 3 verapamil 240 mg tablet extended release 240 mg PO DAILY Qty: 90 RF: 3 metoprolol tartrate 25 mg tablet 12.5 mg PO BID Qty: 90 RF: 3 Discontinued warfarin 3 mg tablet 3 mg PO SUTUTHFRSA RF: 0 warfarin 2 mg tablet 6 mg PO MOWE RF: 0 Referrals / Follow Up: Destin Damico MD [STAFF PHYSICIAN] - Within 2 Weeks (May see [employer] PU[employer] OPERATOR/PA) Paul Reynolds MD [Primary Care Provider] - In 1 Week Disposition Disposition (needs filled in before D/C Order can be placed): Home Health Service
[2021-06-20 10:15] VITALS: O2SAT 94
--- NOTE | 2021-06-20 10:20 | DS.PCM_ITS ---
Documented by User: Kristine Banegas NP, FOREST SCIENCE PROFESSOR-C 06/20/21 10:53 Providers Date of Admission: 06/19/21 Date of Discharge: 06/20/21 Primary Care Physician: Dr. Paul Reynolds MD Reason For Visit: HEMATOMA Diagnosis Discharge Diagnosis (1) Traumatic hematoma of abdominal wall: Status: Acute Code(s): S30.1XXA - Contusion of abdominal wall, initial encounter Medications at Discharge Home Medications epinephrine 0.3 mg IM X1 05/04/13 loratadine 10 mg PO DAILY 05/04/13 albuterol sulfate 2 puff IH Q6H PRN PRN 12/26/15 pantoprazole 20 mg PO DAILY 12/26/15 cyclosporine 1 drp EACH EYE BID 03/28/16 meclizine 25 mg PO Q6H PRN 03/28/16 atorvastatin 40 mg PO DAILY 07/02/18 fluticasone propionate 2 spray NASAL DAILY PRN PRN 07/02/18 albuterol sulfate 2.5 mg INHALATION Q4H PRN PRN 12/04/18 ondansetron HCl 4 mg PO Q6H PRN 02/10/19 acetaminophen 650 mg PO Q6H PRN PRN tab 02/12/19 benzonatate 200 mg PO TID PRN #20 cap 04/26/19 amiodarone 200 mg tablet 200 mg PO DAILY #90 tab 10/13/19 verapamil 240 mg tablet,extended release 240 mg PO DAILY #90 tab 12/30/19 metoprolol tartrate 25 mg tablet 12.5 mg PO BID #90 tab 11/22/20 hydrocodone-acetaminophen 1 tab PO Q6H PRN PRN 3 Days #10 tablet 06/10/21 Hospital Course Operations None Procedures None Summary of Care Provided Hospital Course: Patient is a 71-year-old female admitted 06/19/2021 due to fall with abdominal pain. 1. Traumatic rectus sheath hematoma secondary to mechanical fall-hemoglobin has remained stable. Coumadin held at discharge. Follow-up with PCP and cardiology at discharge to discuss risk versus benefits of Coumadin therapy and ongoing t reatment plan. 2. Left foot drop, chronic-with recent falls. PT/OT eval during admission. Home with home health at discharge per patient request. 3. Paroxysmal atrial fibrillation-on amiodarone, metoprolol, verapamil. Coumadin on hold. 4. Hypertension-stable, continue home regimen. 5. Hyperlipidemia-continue statin. 6. GERD-continue PPI. 7. Asthma-no exacerbation. As needed albuterol aerosol Physical Exam Const alert, oriented x3 and no apparent distress Orientation / Consciousness: awake, oriented to person, oriented to place and oriented to time Nutritional Appearance: obese HEENT normocephalic and moist oral mucous membranes Eyes PERRL, EOMs intact bilaterally and conjunctivae normal Neck no lymphadenopathy Resp normal respiratory effort and clear to auscultation bilaterally Cardio regular rate, regular rhythm and no murmurs Peripheral Pulses: pulses 2+ throughout GI normal to inspection, nondistended, normoactive bowel sounds and non-distended Palpation: tender Extremity normal to inspection Extremity Narrative: Left foot drop, chronic Skin no rashes or lesions noted Lesions: no lesions Rashes: no rashes Trauma: no lacerations or abrasions Neuro CN's II-XII intact bilaterally, no focal motor deficits, no sensory deficits noted and deep tendon reflexes 2+ bilaterally Psych mental status grossly normal and affect normal This patient was seen by MADELINE Sanabria under the supervision of Dr. Bose. Time spent examining patient, reviewing data and subsequent management of care: 16 minutes Weight / BMI Weight Weight: 209 lb 3.499 oz Body Mass Index (BMI) 33.7 ABG / Lab / Microbiology Data Result Diagrams: 06/20/21 05:55 06/19/21 00:30 Laboratory: Laboratory Results - last 24 hr 06/19/21 12:00: Hgb 11.7 L, Hct 38.0 06/20/21 05:55: PT 16.1 H, INR 1.3 06/20/21 05:55: WBC 5.6, RBC 4.33, Hgb 11.3 L, Hct 36.4 L, MCV 84.1, MCH 26.1 L, MCHC 31.0 L, RDW Std Deviation 44.1 H, RDW Coeff of Kahlil 14.4, Plt Count 272, MPV 10.1, Immature Gran % (Auto) 0.400, Neut % (Auto) 64.5, Lymph % (Auto) 22.2, Payette % (Auto) 9.7, Eos % (Auto) 2.5, Baso % (Auto) 0.7, Absolute Neuts (auto) 3.6, Absolute Lymphs (auto) 1.23, Nucleated RBC % 0 D/C Instructions Discharge Diet: Low fat / Low cholesterol Call your doctor if you observe: Shortness of breath, Dizziness and Chest pain Meaningful Use Info Meaningful Use Diagnoses (Choose all that apply): None applicable Discharge Plan Admission Admit Date/Time: 06/19/21 02:27 Primary Reason for Your Visit: Rectus sheath hematoma Attending Provider: Mariangel Bose Primary Care Provider: Paul Reynolds Instructions Additional Instructions / Restrictions: Hold Coumadin until further follow up with PCP and cardiology. Discharge Orders/Prescriptions Prescriptions: Continued epinephrine 0.3 MG syringe 0.3 mg IM X1 RF: 0 loratadine 10 MG tablet 10 mg PO DAILY RF: 0 pantoprazole 20 MG tablet 20 mg PO DAILY RF: 0 albuterol sulfate 18 GM HFA aerosol inhaler 2 puff IH Q6H PRN PRN (Reason: Sob &/Or Wheezing) RF: 0 meclizine 25 MG tablet 25 mg PO Q6H PRN (Reason: Dizziness) RF: 0 cyclosporine 1 DROP dropperette 1 drp EACH EYE BID RF: 0 atorvastatin 20 MG tablet 40 mg PO DAILY RF: 0 fluticasone propionate 1 SPRAY spray,suspension 2 spray NASAL DAILY PRN PRN (Reason: Allergies) RF: 0 albuterol sulfate 2.5 MG/3 ML solution for nebulization 2.5 mg inhalation Q4H PRN PRN (Reason: Sob &/Or Wheezing) RF: 0 ondansetron HCl 8 MG tablet 4 mg PO Q6H PRN (Reason: Nausea) RF: 0 acetaminophen 325 MG tablet 650 mg PO Q6H PRN PRN (Reason: Pain Score 1-3/Temp > 100.7 F) RF: 0 benzonatate 100 MG capsule 200 mg PO TID PRN (Reason: Cough) Qty: 20 RF: 0 hydrocodone-acetaminophen 1 TABLET tablet 1 tab PO Q6H PRN PRN (Reason: Pain) 3 Days Qty: 10 RF: 0 amiodarone 200 mg tablet 200 mg PO DAILY Qty: 90 RF: 3 verapamil 240 mg tablet extended release 240 mg PO DAILY Qty: 90 RF: 3 metoprolol tartrate 25 mg tablet 12.5 mg PO BID Qty: 90 RF: 3 Discontinued warfarin 3 mg tablet 3 mg PO SUTUTHFRSA RF: 0 warfarin 2 mg tablet 6 mg PO MOWE RF: 0 Referrals / Follow Up: Destin Damico MD [STAFF PHYSICIAN] - Within 2 Weeks (May see FOREST SCIENCE PROFESSOR/PA) Paul Reynolds MD [Primary Care Provider] - In 1 Week Disposition Disposition (needs filled in before D/C Order can be placed): Home Health Service Documented by User: Dr. Mariangel Bose MD 06/20/21 15:00 Providers Date of Admission: 06/19/21 Reason For Visit: HEMATOMA Medications at Discharge Home Medications epinephrine 0.3 mg IM X1 05/04/13 loratadine 10 mg PO DAILY 05/04/13 albuterol sulfate 2 puff IH Q6H PRN PRN 12/26/15 pantoprazole 20 mg PO DAILY 12/26/15 cyclosporine 1 drp EACH EYE BID 03/28/16 meclizine 25 mg PO Q6H PRN 03/28/16 atorvastatin 40 mg PO DAILY 07/02/18 fluticasone propionate 2 spray NASAL DAILY PRN PRN 07/02/18 albuterol sulfate 2.5 mg INHALATION Q4H PRN PRN 12/04/18 ondansetron HCl 4 mg PO Q6H PRN 02/10/19 acetaminophen 650 mg PO Q6H PRN PRN tab 02/12/19 benzonatate 200 mg PO TID PRN #20 cap 04/26/19 amiodarone 200 mg tablet 200 mg PO DAILY #90 tab 10/13/19 verapamil 240 mg tablet,extended release 240 mg PO DAILY #90 tab 12/30/19 metoprolol tartrate 25 mg tablet 12.5 mg PO BID #90 tab 11/22/20 hydrocodone-acetaminophen 1 tab PO Q6H PRN PRN 3 Days #10 tablet 06/10/21 ABG / Lab / Microbiology Data Result Diagrams: 06/20/21 05:55 06/19/21 00:30 Discharge Plan Admission Admit Date/Time: 06/19/21 02:27 Primary Reason for Your Visit: Rectus sheath hematoma Attending Provider: Mariangel Bose Primary Care Provider: Paul Reynolds Instructions Additional Instructions / Restrictions: Hold Coumadin until further follow up with PCP and cardiology. Discharge Orders/Prescriptions Prescriptions: Continued epinephrine 0.3 MG syringe 0.3 mg IM X1 RF: 0 loratadine 10 MG tablet 10 mg PO DAILY RF: 0 pantoprazole 20 MG tablet 20 mg PO DAILY RF: 0 albuterol sulfate 18 GM HFA aerosol inhaler 2 puff IH Q6H PRN PRN (Reason: Sob &/Or Wheezing) RF: 0 meclizine 25 MG tablet 25 mg PO Q6H PRN (Reason: Dizziness) RF: 0 cyclosporine 1 DROP dropperette 1 drp EACH EYE BID RF: 0 atorvastatin 20 MG tablet 40 mg PO DAILY RF: 0 fluticasone propionate 1 SPRAY spray,suspension 2 spray NASAL DAILY PRN PRN (Reason: Allergies) RF: 0 albuterol sulfate 2.5 MG/3 ML solution for nebulization 2.5 mg inhalation Q4H PRN PRN (Reason: Sob &/Or Wheezing) RF: 0 ondansetron HCl 8 MG tablet 4 mg PO Q6H PRN (Reason: Nausea) RF: 0 acetaminophen 325 MG tablet 650 mg PO Q6H PRN PRN (Reason: Pain Score 1-3/Temp > 100.7 F) RF: 0 benzonatate 100 MG capsule 200 mg PO TID PRN (Reason: Cough) Qty: 20 RF: 0 hydrocodone-acetaminophen 1 TABLET tablet 1 tab PO Q6H PRN PRN (Reason: Pain) 3 Days Qty: 10 RF: 0 amiodarone 200 mg tablet 200 mg PO DAILY Qty: 90 RF: 3 verapamil 240 mg tablet extended release 240 mg PO DAILY Qty: 90 RF: 3 metoprolol tartrate 25 mg tablet 12.5 mg PO BID Qty: 90 RF: 3 Discontinued warfarin 3 mg tablet 3 mg PO SUTUTHFRSA RF: 0 warfarin 2 mg tablet 6 mg PO MOWE RF: 0 Referrals / Follow Up: Destin Damico MD [STAFF PHYSICIAN] - Within 2 Weeks (May see FOREST SCIENCE PROFESSOR/PA) Paul Reynolds MD [Primary Care Provider] - In 1 Week Disposition Disposition (needs filled in before D/C Order can be placed): Home Health Service Charges/Coding Addendum Addendum: This patient was seen in conjunction with Kristine Banegas NP. I have independently interviewed and examined the patient and reviewed pertinent historical, laboratory, and other data. I have reviewed her note and concur with her documentation 71-year-old female with past medical history of paroxysmal A. fib on Coumadin history of recent diagnosis of left foot drop who comes in after a fall in which she hit her abdomen. Work-up in the ED was significant for a rectus sheath hematoma. Her admitting INR was 3.7. Patient was admitted and monitored overnight. Her Coumadin was held. Repeat INR is 1.3. No new complaint. Hemoglobin stayed stable. Patient was seen by PT and OT and skilled for discharge with home health. She was also follow-up with her primary care doctor within 1 week and also with her primary proof reader. Her Coumadin was held at discharge On the day of discharge, patient was seen and examined. Denied any new comp laints except for slight pain in her lower abdomen. Physical Exam: Gen: Comfortable, not pale, not jaundiced CVS:HS I +II, regular, no murmurs RESP: Diminished at lung bases GI: BS present and normal, soft, tenderness over the lower abdomen, no palpable organs EXT:No edema Time spent coordinating patient's care, discussing with case management/social work and nursin minutes Visit Charges OBSV E&M: [id number] Observation care discharge
[2021-06-20 10:54] VITALS: BP 129/70; PULSE 62; RESP 16; TEMP 37.1; O2SAT 95
--- NOTE | 2021-06-20 11:05 | PHA.DC.MR ---
Pharmacy Service has performed discharge medication reconciliation for this patient. The patient's discharge medication list was reviewed for discrepancies and discrepancies were resolved. Home Medications epinephrine 0.3 mg IM X1 05/04/13 loratadine 10 mg PO DAILY 05/04/13 albuterol sulfate 2 puff IH Q6H PRN PRN 12/26/15 pantoprazole 20 mg PO DAILY 12/26/15 cyclosporine 1 drp EACH EYE BID 03/28/16 meclizine 25 mg PO Q6H PRN 03/28/16 atorvastatin 40 mg PO DAILY 07/02/18 fluticasone propionate 2 spray NASAL DAILY PRN PRN 07/02/18 albuterol sulfate 2.5 mg INHALATION Q4H PRN PRN 12/04/18 ondansetron HCl 4 mg PO Q6H PRN 02/10/19 acetaminophen 650 mg PO Q6H PRN PRN tab 02/12/19 benzonatate 200 mg PO TID PRN #20 cap 04/26/19 amiodarone 200 mg tablet 200 mg PO DAILY #90 tab 10/13/19 verapamil 240 mg tablet,extended release 240 mg PO DAILY #90 tab 12/30/19 metoprolol tartrate 25 mg tablet 12.5 mg PO BID #90 tab 11/22/20 hydrocodone-acetaminophen 1 tab PO Q6H PRN PRN 3 Days #10 tablet 06/10/21
[2021-06-20 16:00] VITALS: BP 159/68; PULSE 61; RESP 18; TEMP 36.8; O2SAT 94
== END 2021-06-20 16:10 | disposition home health service (06) ==
LOC: ED 06-19 02:24 → MS3 06-19 02:30
PROVIDERS: Nurse Practitioner Family; Student in an Organized Health Care Education/Training Program; Admitting Provider Family Medicine; Emergency Provider Emergency Medicine; PCP Family Medicine; Visit Provider Internal Medicine
DX: S30.1XXA Contusion of abdominal wall, initial encounter (principal); I27.21 Secondary pulmonary arterial hypertension; I48.0 Paroxysmal atrial fibrillation; J45.909 Unspecified asthma, uncomplicated; E78.5 Hyperlipidemia, unspecified; I10 Essential (primary) hypertension; R79.1 Abnormal coagulation profile; K21.9 Gastro-esophageal reflux disease without esophagitis; Z79.01 Long term (current) use of anticoagulants; Z79.899 Other long term (current) drug therapy; M21.372 Foot drop, left foot; Y93.9 Activity, unspecified; Y99.9 Unspecified external cause status; W19.XXXA Unspecified fall, initial encounter; Y92.89 Other specified places as the place of occurrence of the external cause
CPT/HCPCS: 36415; 74177; 80053; 81001; 85014; 85018; 85025; 85610; 96365; 96375; 96376; 97110; 97116; 97162; 97166; 97530; 97535; 99218; 99285; J7030; Q9967; A4216; G0378; J3490

== ENCOUNTER → 2021-09-06 | Outpatient (CLI) | payer MEDICARE, SELFPAY ==
--- NOTE | 2021-09-06 09:33 | ECHOCS_ITS ---
Reason For Study: Mitral Insufficiency, TIA/CVA Procedure This was a 2D Doppler, Color Flow transthoracic echocardiogram. The study was technically difficult. Contrast injection was performed. Bubble study performed. Exam performed in department. Left Ventricle Normal LV size. Left ventricular systolic function is normal. The estimated ejection fraction is 60 %. Stage 2 diastolic dysfunction. No regional wall motion abnormalities noted. Right Ventricle Normal RV size. Normal systolic function. Atria Normal left atrium. Normal right atrium. Mitral Valve Normal mitral valve. Mild (1+) eccentric mitral valve insufficiency. Tricuspid Valve Normal tricuspid valve. Mild (1+) tricuspid valve insufficiency. Pulmonary artery systolic pressure is 43 mmHg. Great Vessels Normal aortic root. The pulmonary artery is normal size. Normal inferior vena cava. Pericardium/Pleural No pericardial effusion. Medication 22 gauge I.V. with prn adaptor inserted into left arm. Diluted definity 2.5ml given slow IV push to enhance endocardial definition. Performed a rapid injection of agitated mix of 9 cc saline and 1cc air to assess for atrial septal defect. MMode/2D Measurements & Calculations LVIDd: 4.6 cm IVSd: 0.85 cm CO(Teich): 4.1 l/min LVIDs: 2.9 cm LVPWd: 0.77 cm RVDd: 3.8 cm FS: 36.9 % Ao root diam: 3.0 cm LAV(MOD-bp): 56.6 ml LA A4 area: 19.6 cm2 LA dimension: 3.9 cm LAV(MOD-bp) Indexed: 28.4 ml/m2 LAV(MOD-sp2): 54.5 ml LAV(MOD-sp4): 57.7 ml RA A4 area: 19.2 cm2 Time Measurements MV dec time: 0.22 sec Doppler Measurements & Calculations MV E max christiano: 119.4 cm/sec Lat Peak E' Christiano: 11.0 cm/sec Med Peak E' Christiano: 9.9 cm/sec MV A max christiano: 92.6 cm/sec E/E' lat: 10.9 E/E' med: 12.0 MV E/A: 1.3 MV V2 max: 148.0 cm/sec MV dec slope: 561.3 cm/sec2 Ao V2 max: 155.1 cm/sec MV max P.8 mmHg Ao max P.6 mmHg MV V2 mean: 76.6 cm/sec Ao V2 mean: 98.9 cm/sec MV mean P.8 mmHg Ao mean P.6 mmHg MV V2 VTI: 49.5 cm Ao V2 VTI: 34.3 cm LV V1 max: 138.2 cm/sec MR max christiano: 502.0 cm/sec PA V2 max: 99.6 cm/sec LV V1 max P.7 mmHg MR max P.8 mmHg LV V1 mean P.6 mmHg MR mean christiano: 403.7 cm/sec LV V1 mean: 100.0 cm/sec MR mean P.2 mmHg LV V1 VTI: 30.1 cm MR VTI: 188.8 cm TR max christiano: 313.8 cm/sec TR max P.5 mmHg ECHO/Echo Complete W/ Contrast Interpretation Summary Normal LV size. Left ventricular systolic function is normal. The estimated ejection fraction is 60 %. Stage 2 diastolic dysfunction. Contrast injection was performed. Ordering Physician: Ximena Brock Referring Physician: Paul Reynolds Performed By: Alessandro Bautista RCS
== END | disposition home or self-care (01) ==
LOC: CVS 09:33
PROVIDERS: PCP Family Medicine; Referring Provider Physician Assistant Medical; Visit Provider Physician Assistant Medical
DX: I34.0 Nonrheumatic mitral (valve) insufficiency (principal); Z86.73 Personal history of transient ischemic attack (TIA), and cerebral infarction without residual deficits
CPT/HCPCS: 93306; Q9957; A4216; C8929

== ENCOUNTER 2021-09-15 17:12 | Inpatient (IN) | payer MEDICARE, SELFPAY ==
[2021-09-15 17:13] VITALS: BP 144/85; PULSE 79; RESP 19; TEMP 36; O2SAT 95; BMI 33.0
[2021-09-15 17:15] VITALS: BP 144/85; PULSE 79; RESP 19; TEMP 36; O2SAT 95
--- NOTE | 2021-09-15 17:29 | CT_ITS ---
STUDY: CT ABDOMEN AND PELVIS WITHOUT CONTRAST REASON FOR EXAM: Female, 71 years old. lower abd pain, rectal bleeding RADIATION DOSAGE (If Supplied By Facility): CTDIvol = ( 19.62 ) mGy, DLP = ( 975.65 ) mGycm TECHNIQUE: Transaxial images were obtained from the dome of the diaphragm to the symphysis pubis without oral contrast, and without intravenous contrast. Sagittal and coronal images were reconstructed. Individualized dose optimization techniques were used for this CT. COMPARISON: 06/19/2021 FINDINGS: Nonspecific interstitial thickening in the lower lobes.. The visualized portions of the heart are within normal limits. There is mild prominence of the liver which is slightly hyperattenuated possibly due to AMIODARONE utilization, iron deposition Marcell''s disease or glycogen storage disease. No focal mass or bile duct dilatation. Normal gallbladder and extrahepatic biliary system. Normal spleen. Normal pancreas. Normal bilateral adrenal glands. No evidence for renal obstruction. There is a simple cyst in right kidney to the left.. Normal visualized stomach. Normal small intestine. There is a diffusely a haustral appearance to the mid transverse descending and rectosigmoid colon consistent with inflammatory bowel disease although there is no inflammatory stranding in the fat at this time. There appears to be subtle hyper attenuating density within the cecum and proximal ascending colon. This could represent recently ingested material however hemorrhage cannot be entirely excluded. No evidence for acute appendicitis Atherosclerotic changes of the aorta without evidence for aneurysm. Normal inferior vena cava. Normal retroperitoneum. Normal urinary bladder. Uterus not visualized consistent with hysterectomy Normal abdominal wall. Lumbar spine demonstrates mild spondylosis CT/Abdomen/Pelvis without Cont IMPRESSION: Findings consistent with nonspecific colitis involving predominantly the transverse descending and rectosigmoid segments without inflammatory stranding in the fat at this time. There is slightly hyperattenuated density within the cecum of uncertain significance possibly due to recently ingested material. Intraluminal hemorrhage not entirely excluded. Radionuclide tagged red blood cell study would be helpful for further evaluation of GI bleeding site if clinically warranted Bilateral renal cysts which will not require additional imaging. Other findings as above Electronically Signed: Paul Patel MD at 19:07 EDT ,
--- NOTE | 2021-09-15 17:31 | ED.VIS.GI ---
HPI HPI - GI History of Present Illness Chief Complaint: GI Bleed Informant: patient Abdominal Pain/Flank Pain Onset: Days (4) Context: Gradual Onset Timing: Intermittent Quality: Cramping Location: - (Across lower abdomen) Current Severity: Moderate Maximum Severity: Moderate Worsened by: Nothing Relieved by: Nothing Nausea/Vomiting/Emesis GI Symptom: Positive for Nausea; Negative for Vomiting Diarrhea/Melena/Hematochezia GI Symptom: Positive for Diarrhea; Negative for Melena or Hematochezia Onset: Days (4) Stool Quality: Positive for Watery and BRB per rectum (Today x several times) Severity: Moderate Associated Symptoms Associated Symptoms: Negative for Dysuria, Frequency, Hematuria or Urgency Narrative Narrative: Patient has been having diarrhea and abdominal cramping in her lower abdomen for the last several days, today became bloody, and she states she has had several episodes of pure blood per rectum. She last was on antibiotics for a clogged tear duct about a month ago. She had diarrhea for a day or 2, then went away and now for the past several days she has had significant diarrhea that became bloody today, she is anticoagulated on a apixaban for chronic atrial fibrillation, and she has a history of diverticulosis/diverticulitis. She also had a fall and was diagnosed with a left lower quadrant abdominal wall hematoma, that is still sore in addition to the cramping. She has had some nausea but no vomiting. No episodes of syncope or generalized weakness, no fevers or chills although she had a low-grade temperature 99.X near the beginning of the symptoms. No recent travel out of the area. She drinks city water and bottled water and has had no new sources of water ingestion lately. No known history of C. difficile. No known sick contacts with similar symptoms. [facility] Medical History Asthma Atrial fibrillation BMI greater than 30 Community acquired pneumonia CVA (cerebral vascular accident) Essential (primary) hypertension GERD (gastroesophageal reflux disease) HLD (hyperlipidemia) Hypertension Migraine On amiodarone therapy Osteoporosis Paroxysmal atrial fibrillation Secondary pulmonary arterial hypertension Suspected 2019 novel coronavirus infection (05/19/19) TIA (transient ischemic attack) Traumatic hematoma of abdominal wall Home Medications epinephrine 0.3 mg/0.3 mL injection, auto-injector 0.3 mg IM X1 ALLERGIC REACTIONS 05/04/13 [History Last Taken Unknown] loratadine 10 mg tablet 10 mg PO DAILY ALLERGIES 05/04/13 [History Last Taken 09/15/21] albuterol sulfate 90 mcg/actuation aerosol inhaler 2 puff IH Q6H PRN PRN Sob &/Or Wheezing 12/26/15 [History Last Taken 09/09/19] pantoprazole 20 mg tablet,delayed release 20 mg PO DAILY GERD 12/26/15 [History Last Taken 09/15/21] cyclosporine 0.05 % eye drops in a dropperette 1 drp EACH EYE BID ALLERGIES 03/28/16 [History Last Taken 09/15/21] meclizine 25 mg tablet 25 mg PO Q6H PRN Dizziness 03/28/16 [History Last Taken 09/12/19] atorvastatin 20 mg tablet 40 mg PO DAILY CHOLESTEROL 07/02/18 [History Last Taken 09/15/21] fluticasone propionate 50 mcg/actuation nasal spray,suspension 2 spray NASAL DAILY PRN PRN Allergies 07/02/18 [History Last Taken 09/15/21] albuterol sulfate 2.5 mg/3 mL (0.083 %) solution for nebulization 2.5 mg inhalation Q4H PRN PRN Sob &/Or Wheezing 12/04/18 [History Last Taken 12/01/18] ondansetron HCl 8 mg tablet 4 mg PO Q6H PRN Nausea 02/10/19 [History Last Taken Unknown] acetaminophen 325 mg tablet 650 mg PO Q6H PRN PRN Pain Score 1-3/Temp > 100.7 F 02/12/19 [Rx Last Taken 09/14/19] benzonatate 100 mg capsule 200 mg PO TID PRN Cough #20 caps 04/26/19 [Rx Last Taken Unknown] amiodarone 200 mg tablet 200 mg PO DAILY afib #90 tabs 10/13/19 [Rx Last Taken 09/15/21] verapamil 240 mg tablet,extended release 240 mg PO DAILY BP #90 tabs 12/30/19 [Rx Last Taken 09/15/21] metoprolol tartrate 25 mg tablet 12.5 mg PO BID afib, BP #90 tabs 11/22/20 [Rx Last Taken 09/15/21] hydrocodone-acetaminophen 5-325mg 5mg-325mg 1 tab PO Q6H PRN PRN Pain 3 days #10 TABLETS 06/10/21 [Rx Last Taken Unknown] apixaban 5 mg tablet (Eliquis) 5 mg PO BID #60 tabs 08/03/21 [Rx Last Taken 09/15/21] Allergy/AdvReac Type Severity Reaction Status Date / Time adhesive tape Allergy Rash Verified 09/15/21 17:16 propoxyphene HCl Allergy Rash Verified 09/15/21 17:16 [From Darvon] sulfamethoxazole Allergy Shortness Verified 09/15/21 17:16 [From Bactrim] of breath trimethoprim [From Bactrim] Allergy Shortness Verified 09/15/21 17:16 of breath venom-honey bee Allergy Anaphylaxis Verified 09/15/21 17:16 [bee venom (honey bee)] venom-wasp [wasp venom] Allergy Anaphylaxis Verified 09/15/21 17:16 prednisone AdvReac Diarrhea Verified 09/15/21 17:16 anything that stings Allergy Anaphylaxis Uncoded 09/15/21 17:16 banana peppers Allergy Hives Uncoded 09/15/21 17:16 FIBERGLASS Allergy Shortness Uncoded 09/15/21 17:16 of breath Family History Father CAD (coronary artery disease) Surgical History History of cholecystectomy history of mastoid tumor resection History of total hysterectomy Social History Smoking Status: Never smoker ROS ROS ED Constitutional Constitutional ED: Denies chills or fever(s) Eyes Eyes: Denies change in vision or diplopia ENT ENT ED: Denies rhinorrhea or sore throat Cardiovascular Cardiovascular: Denies chest pain or palpitations Respiratory/Chest Respiratory/Chest: Denies cough or dyspnea Gastrointestinal Gastrointestinal: Reports as per HPI, abdominal pain, diarrhea, hematochezia and nausea; Denies vomiting Genitourinary Genitourinary ED: Denies dysuria or hematuria Musculoskeletal Musculoskeletal: Reports back pain and other Details: Abdominal cramping sometimes radiates into her lower back, nonlateralizing ; Denies neck pain Integumentary Denies abscess or rash Neurologic Neurologic: Denies headache(s), paresthesias or weakness Psychiatric Psychiatric: Denies anxiety or suicidal thoughts EXAM Physical Exam Const Vital Signs: 09/15/21 17:13 09/15/21 17:15 09/15/21 17:15 Temperature 96.8 F L 96.8 F L 96.8 F L Temperature Source Temporal Temporal Temporal Pulse Rate 79 79 79 Respiratory Rate 19 H 19 H 19 H Blood Pressure 144/85 H 144/85 H 144/85 H Blood Pressure Mean 104 Pulse Ox 95 95 95 Oxygen Delivery Method Room Air Room Air Room Air 09/15/21 18:13 Temperature Temperature Source Pulse Rate 68 Respiratory Rate 16 Blood Pressure 154/82 H Blood Pressure Mean 106 Pulse Ox 100 Oxygen Delivery Method Positive well nourished and well developed General Appearance ED: well developed and NAD HEENT Reports moist mucous membranes normocephalic and atraumatic Eyes PERRL and EOMs intact bilaterally Neck full ROM and supple Resp normal respiratory effort and clear to auscultation bilaterally Cardio regular rate, regular rhythm and no murmurs GI non-distended GI Narrative: Tender throughout lower abdomen no guarding or rebound tenderness no pulsatile mass. On rectal exam, no external lesions, no hemorrhoids. No tenderness. No gross bleeding or pooling, trace amount of red stool present. Auscultation: normoactive bowel sounds Palpation: soft Back/Spine no CVA tenderness General Back: other FROM Extremity normal to inspection General Extremety ED: Negative for edema, pulses abnormal or tenderness General Extremity: Negative for edema or pulses abnormal Neuro oriented x3, CN's II-XII intact bilaterally and no sensory deficits noted Sensorium / Orientation: awake and alert Motor Exam: strength 5/5 throughout Skin no rashes or lesions noted and no wounds MDM MDM MDM Narrative Medical decision making narrative: Labs unremarkable with a hemoglobin of 13.5 which is higher than her prior, I did obtain a CT of her abdomen and pelvis given her history of diverticulosis, does not show evidence of diverticulitis, perforation, or any other emergent surgical condition but there is concern for colitis. I am concerned about her being anticoagulated and having continued GI bleeding, she did have another bout in the ED, although less than before. I am not convinced she has an acute infection right now with a white blood count of only 8.6, she has not provided diarrhea for us to send for testing here. She was in quite a bit of abd pain, so we treated her pain w/ several doses of morphine. Her blood pressure remained stable. She lives alone, she is concerned about going home and since she is still having bleeding although it is not emergently active, I think admitting her and holding her Eliquis would be reasonable; her last dose was this morning and she usually takes it twice daily. I discussed with GI who will consult in the hospital. Lab Data Attestation: I reviewed the patient's lab results. Labs: Laboratory Results - last 24 hr 09/15/21 09/15/21 09/15/21 17:24 17:24 17:24 WBC 8.6 RBC 5.26 Hgb 13.5 Hct 43.6 MCV 82.9 MCH 25.7 L MCHC 31.0 L RDW Std Deviation 42.6 RDW Coeff of Kahlil 14.1 Plt Count 329 MPV 10.4 Immature Gran % (Auto) 0.400 Neut % (Auto) 66.6 Lymph % (Auto) 21.6 [place] % (Auto) 9.5 Eos % (Auto) 1.3 Baso % (Auto) 0.6 Absolute Neuts (auto) 5.7 Absolute Lymphs (auto) 1.85 Nucleated RBC % 0 Sodium 142 Potassium 3.8 Chloride 109 H Carbon Dioxide 26.0 Anion Gap 7 BUN 14 Creatinine 0.83 Estim Creat Clear Calc 59.04 Est GFR (MDRD) Af Amer 88 Est GFR (MDRD) Non-Af 72 BUN/Creatinine Ratio 16.9 Glucose 106 Calcium 9.1 Blood Type O POSITIVE Antibody Screen NEGATIVE Radiography Diagnostic Testing: Clinical Impression(s) from Imaging Studies Abdomen/Pelvis CT 09/15/21 17:29 IMPRESSION: Findings consistent with nonspecific colitis involving predominantly the transverse descending and rectosigmoid segments without inflammatory stranding in the fat at this time. There is slightly hyperattenuated density within the cecum of uncertain significance possibly due to recently ingested material. Intraluminal hemorrhage not entirely excluded. Radionuclide tagged red blood cell study would be helpful for further evaluation of GI bleeding site if clinically warranted Bilateral renal cysts which will not require additional imaging. Other findings as above Electronically Signed: Paul Patel MD at 19:07 EDT , Discharge Plan Dx/Rx/DC Orders Clinical Impression: Acute lower gastrointestinal bleeding, Anticoagulated, Colitis Disposition Disposition: Acute Care Hospital [facility] Discharge Date/Time: 09/15/21 19:46
[2021-09-15] MEDS: Ondansetron 4 MG/2 ML Vial IV (17:39)
[2021-09-15] MEDS: Morphine 2 MG/ML Syringe IV ×2 (17:39→18:24)
--- NOTE | 2021-09-15 17:48 | ED.RN ---
THIS RN PULLED OUT MEDICATIONS FOR PT. LOGGED INTO COMPUTER. COMPUTER UNDER DIFFERENT NURSE WHO VERIFIED AND SCANNED IN.
[2021-09-15 17:53] LABS: Absolute Lymphocyte Count 1.85 X10^3/uL (0.83-4.51); Absolute Neutrophil Count 5.7 X10^3/uL (2.0-7.7); Basophil# 0.05 X10^3/uL; Basophil% 0.6 % (0-1); Eosinophil# 0.11 X10^3/uL; Eosinophils% 1.3 % (0-5); Hematocrit 43.6 % (37-47); Hemoglobin 13.5 g/dL (12.0-15.0); Lymphocyte # 1.85 X10^3/ul (0.83-4.51); Lymphocyte % 21.6 % (19-41); Mean Corpuscular Hgb 25.7 pg (27.0-32.0); Mean Corpuscular Volume 82.9 fL (81-99); Mean Platelet Vol. 10.4 fl (6.2-12.0); Monocyte# 0.81 X10^3/uL; Monocyte% 9.5 % (0-10); NRBC Flagged by Analyzer 0 % (0-5); Neutrophil # 5.71 X10^3/uL (2.7-7.7); Neutrophil % 66.6 % (47-70); Platelet Count 329 K/mm3 (150-450); RBC Distribution Width CV 14.1 % (11.6-14.6); RBC Distribution Width SD 42.6 fl (35.1-43.9); Red Blood Count 5.26 M/mm3 (4.2-5.4); White Blood Count 8.6 K/mm3 (4.4-11.0)
[2021-09-15 18:10] LABS: Anion Gap 7 (5-15); BUN 14 mg/dL (7-18); BUN/Creat Ratio 16.9 RATIO (10-20); Calcium,Total 9.1 mg/dL (8.5-10.1); Chloride 109 mmol/L (98-107); Creatinine, Serum 0.83 mg/dL (0.55-1.02); EST Glomerular Filtration Rate 72 mL/min (>60); Est Glom Filt Rate - Afr Amer 88 mL/min (>60); Estimated Creatinine Clearance 59.04 ml/min; Glucose 106 mg/dL (74-106); Potassium 3.8 mmol/L (3.5-5.1); Sodium Level 142 mmol/L (136-145)
[2021-09-15 18:13] VITALS: BP 154/82; PULSE 68; RESP 16; O2SAT 100
[2021-09-15 19:59] VITALS: BP 165/87; PULSE 70; RESP 16; TEMP 36.8; O2SAT 94
--- NOTE | 2021-09-15 20:01 | HP.PCM.HOS_ITS ---
HPI - General General Date of Admission: 09/15/21 Date of Service: 09/15/21 Chief Complaint: Hematochezia HPI Narrative ROMAIN LOMBARDO, is a 71 F with a significant history of atrial fibrillation on Eliquis; asthma; and HTN who presents with multiple episodes of persistent hematochezia that started on the same day of presentation. Associated with her symptoms is nausea. She denies vomiting and states that at baseline she hardly vomits. Of note 4 days before presentation patient developed diarrhea which she described as multiple loose stools and occasionally with hard stools.Eating food exacerbates her diarrhea Also she has left lower sided cramping abdominal pain that radiates to her right lower quadrant and onto her lower back. She denies eating outside recently. Patient had hematochezia x2 at the emergency department. [facility] Medical History Asthma Atrial fibrillation BMI greater than 30 Community acquired pneumonia CVA (cerebral vascular accident) Essential (primary) hypertension GERD (gastroesophageal reflux disease) HLD (hyperlipidemia) Hypertension Migraine Non-smoker On amiodarone therapy Osteoporosis Paroxysmal atrial fibrillation Secondary pulmonary arterial hypertension Suspected 2019 novel coronavirus infection (05/19/19) TIA (transient ischemic attack) Traumatic hematoma of abdominal wall Home Medications epinephrine 0.3 mg/0.3 mL injection, auto-injector 0.3 mg IM X1 ALLERGIC REACTIONS 05/04/13 [History Last Taken Unknown] loratadine 10 mg tablet 10 mg PO DAILY ALLERGIES 05/04/13 [History Last Taken 09/15/21] albuterol sulfate 90 mcg/actuation aerosol inhaler 2 puff IH Q6H PRN PRN Sob &/Or Wheezing 12/26/15 [History Last Taken 09/09/19] pantoprazole 20 mg tablet,delayed release 20 mg PO DAILY GERD 12/26/15 [History Last Taken 09/15/21] cyclosporine 0.05 % eye drops in a dropperette 1 drp EACH EYE BID ALLERGIES 03/28/16 [History Last Taken 09/15/21] meclizine 25 mg tablet 25 mg PO Q6H PRN Dizziness 03/28/16 [History Last Taken 09/12/19] atorvastatin 20 mg tablet 40 mg PO DAILY CHOLESTEROL 07/02/18 [History Last Taken 09/15/21] fluticasone propionate 50 mcg/actuation nasal spray,suspension 2 spray NASAL DAILY PRN PRN Allergies 07/02/18 [History Last Taken 09/15/21] albuterol sulfate 2.5 mg/3 mL (0.083 %) solution for nebulization 2.5 mg inhalation Q4H PRN PRN Sob &/Or Wheezing 12/04/18 [History Last Taken 12/01/18] ondansetron HCl 8 mg tablet 4 mg PO Q6H PRN Nausea 02/10/19 [History Last Taken Unknown] acetaminophen 325 mg tablet 650 mg PO Q6H PRN PRN Pain Score 1-3/Temp > 100.7 F 02/12/19 [Rx Last Taken 09/14/19] benzonatate 100 mg capsule 200 mg PO TID PRN Cough #20 caps 04/26/19 [Rx Last Taken Unknown] amiodarone 200 mg tablet 200 mg PO DAILY afib #90 tabs 10/13/19 [Rx Last Taken 09/15/21] verapamil 240 mg tablet,extended release 240 mg PO DAILY BP #90 tabs 12/30/19 [Rx Last Taken 09/15/21] metoprolol tartrate 25 mg tablet 12.5 mg PO BID afib, BP #90 tabs 11/22/20 [Rx Last Taken 09/15/21] hydrocodone-acetaminophen 5-325mg 5mg-325mg 1 tab PO Q6H PRN PRN Pain 3 days #10 TABLETS 06/10/21 [Rx Last Taken Unknown] apixaban 5 mg tablet (Eliquis) 5 mg PO BID #60 tabs 08/03/21 [Rx Last Taken 09/15/21] Allergy/AdvReac Type Severity Reaction Status Date / Time adhesive tape Allergy Rash Verified 09/15/21 17:16 propoxyphene HCl Allergy Rash Verified 09/15/21 17:16 [From Darvon] sulfamethoxazole Allergy Shortness Verified 09/15/21 17:16 [From Bactrim] of breath trimethoprim [From Bactrim] Allergy Shortness Verified 09/15/21 17:16 of breath venom-honey bee Allergy Anaphylaxis Verified 09/15/21 17:16 [bee venom (honey bee)] venom-wasp [wasp venom] Allergy Anaphylaxis Verified 09/15/21 17:16 prednisone AdvReac Diarrhea Verified 09/15/21 17:16 anything that stings Allergy Anaphylaxis Uncoded 09/15/21 17:16 banana peppers Allergy Hives Uncoded 09/15/21 17:16 FIBERGLASS Allergy Shortness Uncoded 09/15/21 17:16 of breath Family History Father CAD (coronary artery disease) Surgical History History of cholecystectomy history of mastoid tumor resection History of total hysterectomy Social History Smoking Status: Never smoker ROS ROS Narrative Constitutional: Denies fever, chills, fatigue, anorexia and change in weight Eyes: Denies blurry vision, change in eye color, change in vision, discharge from eye(s), double vision, erythema, eye pain, loss of vision or other HEENT: Denies abnormal hearing, dysphagia, ear pain, epistaxis, headache(s), hearing loss, nasal congestion, nasal discharge, post nasal drip, sinus pressure, sore throat or other Cardiovascular: Denies chest pain or palpitations. Denies dyspnea on exertion, orthopnea and paroxysmal nocturnal dyspnea Respiratory/Chest: Denies cough, excessive phlegm production, shortness of breath with exertion and wheezing Gastrointestinal: Reports abdominal pain, diarrhea, and hematochezia. Denies vomiting. Denies hematemesis. Genitourinary: Denies burning urination, difficulty urinating, dysuria, hematuria, nocturia, urinary frequency, urinary hesitancy, urinary incontinence, urinary urgency or other Musculoskeletal: Reports back pain. Denies myalgia Neurologic: Denies abnormal gait, abnormal speech, confusion, disequilibrium, d izziness, focal weakness, numbness, paresthesias, seizure-like activity, seizures, syncope, tingling, tremor(s) or other Psychiatric: Denies anxiety, depression, homicidal ideation, suicidal ideation or other Endocrinology: Denies change in body appearance, cold intolerance, excessive sweating, heat intolerance, polydipsia, polyuria or other Hematologic/Lymphatic: Denies anemia, easy bleeding, easy bruising, lymphadenopathy or other Integumentary: Denies rashes Allergic/Immunologic: Denies rhinitis, hives, eczema, or other Vital Signs Vital Signs Vital Signs: 09/15/21 17:13 09/15/21 17:15 09/15/21 17:15 Temperature 96.8 F L 96.8 F L 96.8 F L Temperature Source Temporal Temporal Temporal Pulse Rate 79 79 79 Respiratory Rate 19 H 19 H 19 H Blood Pressure 144/85 H 144/85 H 144/85 H Blood Pressure Mean 104 Pulse Ox 95 95 95 Oxygen Delivery Method Room Air Room Air Room Air 09/15/21 18:13 09/15/21 19:59 Temperature 98.2 F Temperature Source Temporal Pulse Rate 68 70 Respiratory Rate 16 16 Blood Pressure 154/82 H 165/87 H Blood Pressure Mean 106 113 Pulse Ox 100 94 Oxygen Delivery Method Room Air Weight Weight: 92.986 kg Body Mass Index (BMI) 33.0 Physical Exam Narrative Physical exam: General: Well-nourished, well-developed. Head: Normocephalic, atraumatic, no tenderness Eyes: Vision is grossly intact. EOMI ENT, no trauma, moist mucous membranes, no rhinorrhea Neck: Nontender, full range of motion, no spinal tenderness, deformities, step- off CVS: Regular rate and rhythm. S1-S2 present. No murmur, gallop or rub. Respiratory : clear to auscultation bilaterally, chest wall nontender, no wheezing Abdomen: Soft, tender, nondistended, normal bowel sounds, no masses : Deferred Back: Nontender, no CVA tenderness, no midline spinal tenderness, deformities, step-offs Extremities: Nontender full range of motion, no trauma Skin: Normal color, no trauma, abrasions Neuro: Alert, oriented, cranial nerves II through XII grossly intact. Psychiatry: Normal mood. Normal affect. Not depressed. Not anxious. Results Lab / Micro Data Result Diagrams: 09/15/21 17:24 09/15/21 17:24 Labs: Laboratory Results - last 24 hr 09/15/21 17:24: WBC 8.6, RBC 5.26, Hgb 13.5, Hct 43.6, MCV 82.9, MCH 25.7 L, MCHC 31.0 L, RDW Std Deviation 42.6, RDW Coeff of Kahlil 14.1, Plt Count 329, MPV 10.4, Immature Gran % (Auto) 0.400, Neut % (Auto) 66.6, Lymph % (Auto) 21.6, [place] % (Auto) 9.5, Eos % (Auto) 1.3, Baso % (Auto) 0.6, Absolute Neuts (auto) 5.7, Absolute Lymphs (auto) 1.85, Nucleated RBC % 0 09/15/21 17:24: Sodium 142, Potassium 3.8, Chloride 109 H, Carbon Dioxide 26.0, Anion Gap 7, BUN 14, Creatinine 0.83, Estim Creat Clear Calc 59.04, Est GFR (MDRD) Af Amer 88, Est GFR (MDRD) Non-Af 72, BUN/Creatinine Ratio 16.9, Glucose 106, Calcium 9.1 09/15/21 17:24: Blood Type O POSITIVE, Antibody Screen NEGATIVE Radiology Impression Abdomen/Pelvis CT 09/15/21 17:29 IMPRESSION: Findings consistent with nonspecific colitis involving predominantly the transverse descending and rectosigmoid segments without inflammatory stranding in the fat at this time. There is slightly hyperattenuated density within the cecum of uncertain significance possibly due to recently ingested material. Intraluminal hemorrhage not entirely excluded. Radionuclide tagged red blood cell study would be helpful for further evaluation of GI bleeding site if clinically warranted Bilateral renal cysts which will not require additional imaging. Other findings as above Electronically Signed: Paul Patel MD at 19:07 EDT , Assessment & Plan Assessment/Plan (1) Colitis: (2) Acute lower gastrointestinal bleeding: PLAN: Plan Acute colitis with acute lower GI Blood observed in toilet bowl at emergency departments. CBC showed hemoglobin of 13.5. Review of previous labs show that current hemoglobin is about baseline. Trend H&H and CBC. Abdomen/pelvis CT was visualized and independently interpreted and I agree with radiologist interpretation above. Cannot rule out diverticular bleed. Supportive treatment with IV fluids; as needed IV antiemetics ordered. As needed IV morphine ordered clear liquid diet ordered on admission and then n.p.o. after midnight. We will get enteric pathogen panel test Emergency plan doctor discussed the case with gastroenterology. Cardiology consult. Atrial fibrillation Stable Amiodarone continued Hold Eliquis due to GI bleed. Amiodarone and verapamil continued. Hypertension Blood pressure is not within goal Metoprolol and verapamil continued. Trend blood pressure and adjust blood pressure medications. DVT prophylaxis: SCDs ordered Charges/Coding Visit Charges Inpatient E&M: 62013 Init Hosp L3
[2021-09-15 21:00] VITALS: BP 178/84; PULSE 77; RESP 16; TEMP 36.6; O2SAT 95
[2021-09-15 21:08] VITALS: BMI 33.3
[2021-09-15 21:12] VITALS: BP 149/74; BP 152/78; BP 154/82; PULSE 72; PULSE 73
[2021-09-16] VITALS (8 sets, daily range): BP systolic 106–137; BP diastolic 47–63; PULSE 60–70; RESP 12–18; TEMP 36.3–36.9; O2SAT 92–97
[2021-09-16] MEDS: 0.9% Normal Saline 1,000 ML 75 ML IV (00:01)
[2021-09-16 00:14] LABS: Hemoglobin 11.6 g/dL (12.0-15.0)
[2021-09-16] MEDS: Metoprolol Tartrate 25 MG Tablet 12.5 MG PO ×3 (00:14→22:01)
[2021-09-16] MEDS: Acetaminophen 325 MG Tablet 650 MG PO ×3 (00:14→14:57)
[2021-09-16 05:27] LABS: Absolute Lymphocyte Count 1.44 X10^3/uL (0.83-4.51); Absolute Neutrophil Count 4.1 X10^3/uL (2.0-7.7); Basophil# 0.03 X10^3/uL; Basophil% 0.5 % (0-1); Eosinophil# 0.08 X10^3/uL; Eosinophils% 1.3 % (0-5); Hematocrit 36.5 % (37-47); Hemoglobin 11.1 g/dL (12.0-15.0); Lymphocyte # 1.44 X10^3/ul (0.83-4.51); Lymphocyte % 22.6 % (19-41); Mean Corp Hgb Conc 30.4 g/dL (32-36); Mean Corpuscular Hgb 25.8 pg (27.0-32.0); Mean Corpuscular Volume 84.7 fL (81-99); Mean Platelet Vol. 10.3 fl (6.2-12.0); Monocyte# 0.73 X10^3/uL; Monocyte% 11.5 % (0-10); NRBC Flagged by Analyzer 0 % (0-5); Neutrophil # 4.07 X10^3/uL (2.7-7.7); Neutrophil % 63.8 % (47-70); Platelet Count 245 K/mm3 (150-450); RBC Distribution Width SD 43.5 fl (35.1-43.9); Red Blood Count 4.31 M/mm3 (4.2-5.4); White Blood Count 6.4 K/mm3 (4.4-11.0)
[2021-09-16 06:06] LABS: ALB/GLOB Ratio 0.9 RATIO (0.9-2.4); AST(SGOT) 16 U/L (15-37); Alanine Aminotransfer ALT/SGPT 23 U/L (13-56); Albumin, Serum 2.8 g/dL (3.2-5.0); Alkaline Phosphatase 127 U/L (45-117); Anion Gap 5 (5-15); BUN 11 mg/dL (7-18); BUN/Creat Ratio 13.8 RATIO (10-20); Calcium,Total 8.3 mg/dL (8.5-10.1); Chloride 111 mmol/L (98-107); EST Glomerular Filtration Rate 76 mL/min (>60); Est Glom Filt Rate - Afr Amer 92 mL/min (>60); Estimated Creatinine Clearance 61.26 ml/min; Globulin 3.1 g/dL (2.2-4.2); Glucose 94 mg/dL (74-106); Potassium 3.3 mmol/L (3.5-5.1); Protein, Total 5.9 g/dL (6.4-8.2); Sodium Level 142 mmol/L (136-145)
--- NOTE | 2021-09-16 08:03 | PCM.PN.HOSP ---
Subjective Subjective Follow-up on GI bleed: Patient was seen and examined. She had some bowel movement this morning that was bloody. This was associated with some abdominal cramps. Denied any fever or chills. Objective Data Objective Data Vital Signs: Vital Signs Temp Pulse Resp BP Pulse Ox O2 Del Method 97.8 F 61 18 121/57 H 93 Room Air 09/16/21 04:31 09/16/21 04:31 09/16/21 04:31 09/16/21 04:31 09/16/21 04:31 09/16/21 04:31 Oxygen Delivery Method Room Air Weight: 93.5 kg Body Mass Index (BMI) 33.3 Intake & Output: Intake and Output for Last 24 Hours 09/14/21 09/15/21 09/16/21 23:59 23:59 23:59 Intake Total 500 / 500 Balance 500 / 500 Lab / Micro Data Result Diagrams: 09/16/21 04:23 09/16/21 04:23 Labs: Laboratory Results - last 24 hr 09/15/21 17:24: WBC 8.6, RBC 5.26, Hgb 13.5, Hct 43.6, MCV 82.9, MCH 25.7 L, MCHC 31.0 L, RDW Std Deviation 42.6, RDW Coeff of Kahlil 14.1, Plt Count 329, MPV 10.4, Immature Gran % (Auto) 0.400, Neut % (Auto) 66.6, Lymph % (Auto) 21.6, [place] % (Auto) 9.5, Eos % (Auto) 1.3, Baso % (Auto) 0.6, Absolute Neuts (auto) 5.7, Absolute Lymphs (auto) 1.85, Nucleated RBC % 0 09/15/21 17:24: Sodium 142, Potassium 3.8, Chloride 109 H, Carbon Dioxide 26.0, Anion Gap 7, BUN 14, Creatinine 0.83, Estim Creat Clear Calc 59.04, Est GFR (MDRD) Af Amer 88, Est GFR (MDRD) Non-Af 72, BUN/Creatinine Ratio 16.9, Glucose 106, Calcium 9.1 09/15/21 17:24: Blood Type O POSITIVE, Antibody Screen NEGATIVE 09/16/21 00:05: Hgb 11.6 L, Hct 38.0 09/16/21 04:23: WBC 6.4, RBC 4.31, Hgb 11.1 L, Hct 36.5 L, MCV 84.7, MCH 25.8 L, MCHC 30.4 L, RDW Std Deviation 43.5, RDW Coeff of Kahlil 14.0, Plt Count 245, MPV 10.3, Immature Gran % (Auto) 0.300, Neut % (Auto) 63.8, Lymph % (Auto) 22.6, [place] % (Auto) 11.5 H, Eos % (Auto) 1.3, Baso % (Auto) 0.5, Absolute Neuts (auto) 4.1, Absolute Lymphs (auto) 1.44, Nucleated RBC % 0 09/16/21 04:23: Sodium 142, Potassium 3.3 L, Chloride 111 H, Carbon Dioxide 26.0, Anion Gap 5, BUN 11, Creatinine 0.80, Estim Creat Clear Calc 61.26, Est GFR (MDRD) Af Amer 92, Est GFR (MDRD) Non-Af 76, BUN/Creatinine Ratio 13.8, Glucose 94, Calcium 8.3 L, Total Bilirubin 0.70, AST 16, ALT 23, Alkaline Phosphatase 127 H, Total Protein 5.9 L, Albumin 2.8 L, Globulin 3.1, Albumin/Globulin Ratio 0.9 Radiography Diagnostic Testing: Radiology Impression Abdomen/Pelvis CT 09/15/21 17:29 IMPRESSION: Findings consistent with nonspecific colitis involving predominantly the transverse descending and rectosigmoid segments without inflammatory stranding in the fat at this time. There is slightly hyperattenuated density within the cecum of uncertain significance possibly due to recently ingested material. Intraluminal hemorrhage not entirely excluded. Radionuclide tagged red blood cell study would be helpful for further evaluation of GI bleeding site if clinically warranted Bilateral renal cysts which will not require additional imaging. Other findings as above Electronically Signed: Paul Patel MD at 19:07 EDT , Physical Exam Narrative Physical exam: General: Alert, Oriented x3, Cooperative, not pale, well hydrated HEENT: Atraumatic Oral: Moist Mucosa Neck: Supple Lungs: Clear to auscultation Cardiovascular: HS I+II, regular, no murmurs Abdomen: Bowel Sounds Present, Soft, slightly tender in the upper abdomen Extremities: No edema Skin: No rashes, No breakdown Neurological: Grossly intact Psych/Mental Status: Appropriate Assessment & Plan Assessment/Plan (1) Colitis: (2) Acute lower gastrointestinal bleeding: PLAN: Plan 1. Acute GI bleed secondary to acute colitis, unclear underlying etiology, possibly secondary to ischemic colitis Will cover with IV antibiotics for now. Off Eliquis Hemoglobin appears to be stable, continue on IV PPI Follow-up on GI consult 2. Hypokalemia, K 3.3, replaced, check Mg, recheck in am 3. Paroxysmal atrial fibrillation, currently in NSR, Continue on Amiodarone and verapamil Eliquis on hold 4. Hypertension, controlled, Continue on Metoprolol and verapamil 5. DVT prophylaxis - SCDs Charges/Coding Visit Charges Inpatient E&M: 93060 Subs Hosp L2
[2021-09-16] MEDS: Potassium Chloride 10mEq/100mL 10 MEQ/100 ML IV.SOLN. 100 MEQ IV BOLUS ×4 (08:20→11:58)
[2021-09-16] MEDS: Verapamil SR 240 MG Tablet PO (08:22)
[2021-09-16] MEDS: Amiodarone 200 MG Tablet PO (08:22)
[2021-09-16] MEDS: Loratadine 10 MG Tablet PO (08:23)
[2021-09-16] MEDS: Pantoprazole Sodium 20 MG Tablet PO (08:23)
--- NOTE | 2021-09-16 09:38 | EKG12_ITS ---
Test Reason : Blood Pressure : / mmHG Vent. Rate : 057 BPM Atrial Rate : 057 BPM P-R Int : 194 ms QRS Dur : 086 ms QT Int : 510 ms P-R-T Axes : 067 021 041 degrees QTc Int : 496 ms Sinus bradycardia Prolonged QT Abnormal ECG When compared with ECG of 17-SEP-2019 08:28, Premature atrial complexes are no longer Present Vent. rate has decreased BY 41 BPM Confirmed by MAGGIE ALLEN, KRISTIN ([id number]), subeditor DERECK ALBA ([id number]) on 09/21/2021 12:52:35 PM Referred By: Lidya Confirmed By:KRISTIN SERRANO MD
--- NOTE | 2021-09-16 10:10 | CASEMGMT ---
RN CM Face to Face with patient for initial transition planning/care coordination assessment. RN CM introduced self and role at [facility]. Patient lying in bed, alert and oriented. Patient willing to participate in assessment and is able to answer all questions appropriately. Care providers, pharmacy, and demographics verified. Patient wishes to discharge home, denies need for home health at this time. Patient states she has no further needs or concerns at this time. CM to follow for discharge planning needs that may arise. 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 Patient states she is independent at home and able to ambulate stairs. Transportation: self, daughter DME/HHC: Patient states she has cane, walker, and shower chair at home. Patient has had [facility]HC in the past. Disposition Plan: Patient to discharge home with family support and follow-up plans in place. Jody WHALEY, RN, CM
[2021-09-16] MEDS: metroNIDAZOLE 500 MG/100 ML BAG 100 MG IV (11:06)
[2021-09-16] MEDS: 0.9% Normal Saline 1,000 ML 50 ML IV (11:59)
--- NOTE | 2021-09-16 14:43 | CHAPLAIN ---
Type of Pastoral Visit _x__ Initial Visit ___ Follow-up Visit ___ On-call Visit ___ General Patient Visit ___ Spiritual Assessment ___ Family Conference ___ Bereavement ___ Rapid Response ___ Code Blue ___ Other (describe below) Pastoral Care Referral From _x__ Patient ___ Family ___ Nurse ___ Physician ___ Physician Advisor ___ Wire Spooler ___ Other (describe below) Sacrament/Intervention _x__ Active listening ___ Anointing ___ Mosque ___ Bereavement ___ Communion ___ Nichol exploration ___ _x__ Life review _x_ Prayer ___ Reconciliation ___ Sacrament of Sick _x__ Supportive presence ___ Wedding ___ Other (describe below) Pastoral Comments patient talks about her health issue of late; pt also talks about her approaching marriage and gaining a daughter of age 12; pt states she has family to help; pt welcomes time to talk about her life and to have prayer for her physical health
--- NOTE | 2021-09-16 16:40 | PCM.CONS.GEN ---
Assessment & Plan Assessment/Plan (1) Acute lower gastrointestinal bleeding: PLAN: It is likely that her lower GI bleed is secondary to ischemic colitis in the setting of a patient with a cardiomyopathy on amiodarone therapy. That does increase her risk of ischemic colitis especially in the setting of CAD and possible peripheral vascular disease. She has not had any bleeding in the last several hours. Due to the fact that she has such extensive diverticular disease on her imaging I would suspect that she also has some segmental colitis associated with diverticular disease. I would recommend Colace 100 mg twice a day and she can wait to have a colonoscopy as long as she does not have any more bleeding with initiation of oral food. Monitor CBC and Bentyl as needed for cramping. (2) On amiodarone therapy: PLAN: I think she has fatty liver disease secondary to amiodarone therapy in the setting of someone who is at risk for fatty liver disease. She should have a FibroScan as an outpatient and possible liver biopsy. HPI Consult Data Date of Consult: 09/16/21 HPI Narrative Reason for Consultation: GI bleeding HPI Narrative: ROMAIN LOMBARDO, is a 71 F who presents with worsening abdominal pain followed by diarrhea and lower GI bleeding. Patient has been having diarrhea and abdominal cramping in her lower abdomen for the last several days, today became bloody, and she states she has had several episodes of pure blood per rectum.? She last was on antibiotics for a clogged tear duct about a month ago.? She had diarrhea for a day or 2, then went away and now for the past several days she has had significant diarrhea that became bloody today, she is anticoagulated on a apixaban for chronic atrial fibrillation, and she has a history of diverticulosis/diverticulitis.? She also had a fall and was diagnosed with a left lower quadrant abdominal wall hematoma, that is still sore in addition to the cramping.? She has had some nausea but no vomiting.? No episodes of syncope or generalized weakness, no fevers or chills although she had a low-grade temperature 99.X near the beginning of the symptoms.? No recent travel out of the area.? She drinks city water and bottled water and has had no new sources of water ingestion lately.? No known history of C. difficile.? No known sick contacts with similar symptoms. [facility] Medical History Asthma Atrial fibrillation BMI greater than 30 Community acquired pneumonia CVA (cerebral vascular accident) Essential (primary) hypertension GERD (gastroesophageal reflux disease) HLD (hyperlipidemia) Hypertension Migraine Non-smoker On amiodarone therapy Osteoporosis Paroxysmal atrial fibrillation Secondary pulmonary arterial hypertension Suspected 2019 novel coronavirus infection (05/19/19) TIA (transient ischemic attack) Traumatic hematoma of abdominal wall Home Medications epinephrine 0.3 mg/0.3 mL injection, auto-injector 0.3 mg IM X1 ALLERGIC REACTIONS 05/04/13 [History Last Taken Unknown] loratadine 10 mg tablet 10 mg PO DAILY ALLERGIES 05/04/13 [History Last Taken 09/15/21] albuterol sulfate 90 mcg/actuation aerosol inhaler 2 puff IH Q6H PRN PRN Sob &/Or Wheezing 12/26/15 [History Last Taken 09/09/19] pantoprazole 20 mg tablet,delayed release 20 mg PO DAILY GERD 12/26/15 [History Last Taken 09/15/21] cyclosporine 0.05 % eye drops in a dropperette 1 drp EACH EYE BID ALLERGIES 03/28/16 [History Last Taken 09/15/21] meclizine 25 mg tablet 25 mg PO Q6H PRN Dizziness 03/28/16 [History Last Taken 09/12/19] atorvastatin 20 mg tablet 40 mg PO DAILY CHOLESTEROL 07/02/18 [History Last Taken 09/15/21] fluticasone propionate 50 mcg/actuation nasal spray,suspension 2 spray NASAL DAILY PRN PRN Allergies 07/02/18 [History Last Taken 09/15/21] albuterol sulfate 2.5 mg/3 mL (0.083 %) solution for nebulization 2.5 mg inhalation Q4H PRN PRN Sob &/Or Wheezing 12/04/18 [History Last Taken 12/01/18] ondansetron HCl 8 mg tablet 4 mg PO Q6H PRN Nausea 02/10/19 [History Last Taken Unknown] acetaminophen 325 mg tablet 650 mg PO Q6H PRN PRN Pain Score 1-3/Temp > 100.7 F 02/12/19 [Rx Last Taken 09/14/19] benzonatate 100 mg capsule 200 mg PO TID PRN Cough #20 caps 04/26/19 [Rx Last Taken Unknown] amiodarone 200 mg tablet 200 mg PO DAILY afib #90 tabs 10/13/19 [Rx Last Taken 09/15/21] verapamil 240 mg tablet,extended release 240 mg PO DAILY BP #90 tabs 12/30/19 [Rx Last Taken 09/15/21] metoprolol tartrate 25 mg tablet 12.5 mg PO BID afib, BP #90 tabs 11/22/20 [Rx Last Taken 09/15/21] hydrocodone-acetaminophen 5-325mg 5mg-325mg 1 tab PO Q6H PRN PRN Pain 3 days #10 TABLETS 06/10/21 [Rx Last Taken Unknown] apixaban 5 mg tablet (Eliquis) 5 mg PO BID #60 tabs 08/03/21 [Rx Last Taken 09/15/21] Allergy/AdvReac Type Severity Reaction Status Date / Time adhesive tape Allergy Rash Verified 09/15/21 17:16 propoxyphene HCl Allergy Rash Verified 09/15/21 17:16 [From Darvon] sulfamethoxazole Allergy Shortness Verified 09/15/21 17:16 [From Bactrim] of breath trimethoprim [From Bactrim] Allergy Shortness Verified 09/15/21 17:16 of breath venom-honey bee Allergy Anaphylaxis Verified 09/15/21 17:16 [bee venom (honey bee)] venom-wasp [wasp venom] Allergy Anaphylaxis Verified 09/15/21 17:16 prednisone AdvReac Diarrhea Verified 09/15/21 17:16 anything that stings Allergy Anaphylaxis Uncoded 09/15/21 17:16 banana peppers Allergy Hives Uncoded 09/15/21 17:16 FIBERGLASS Allergy Shortness Uncoded 09/15/21 17:16 of breath Family History (Updated 09/15/21 @ 21:29 by Hiwot Fagan) Father CAD (coronary artery disease) Brother Heart disease Surgical History History of cholecystectomy history of mastoid tumor resection History of total hysterectomy Social History Smoking Status: Never smoker ROS ROS Narrative Constitutional: Denies fever, chills, fatigue, anorexia and change in weight Eyes: Denies blurry vision, change in eye color, change in vision, discharge from eye(s), double vision, erythema, eye pain, loss of vision or other HEENT: Denies abnormal hearing, dysphagia, ear pain, epistaxis, headache(s), hearing loss, nasal congestion, nasal discharge, post nasal drip, sinus pressure, sore throat or other Cardiovascular: Denies chest pain or palpitations. Denies dyspnea on exertion, orthopnea and paroxysmal nocturnal dyspnea Respiratory/Chest: Denies cough, excessive phlegm production, shortness of breath with exertion and wheezing Gastrointestinal: Reports abdominal pain, diarrhea, and hematochezia. Denies vomiting. Denies hematemesis. Genitourinary: Denies burning urination, difficulty urinating, dysuria, hematuria, nocturia, urinary frequency, urinary hesitancy, urinary incontinence, urinary urgency or other Musculoskeletal: Reports back pain. Denies myalgia Neurologic: Denies abnormal gait, abnormal speech, confusion, disequilibrium, dizziness, focal weakness, numbness, paresthesias, seizure-like activity, seizures, syncope, tingling, tremor(s) or other Psychiatric: Denies anxiety, depression, homicidal ideation, suicidal ideation or other Endocrinology: Denies change in body appearance, cold intolerance, excessive sweating, heat intolerance, polydipsia, polyuria or other Hematologic/Lymphatic: Denies anemia, easy bleeding, easy bruising, lymphadenopathy or other Integumentary: Denies rashes Allergic/Immunologic: Denies rhinitis, hives, eczema, or other Physical Exam Narrative Physical exam: General: Alert, Oriented x3, Cooperative, not pale, well hydrated HEENT: Atraumatic Oral: Moist Mucosa Neck: Supple Lungs: Clear to auscultation Cardiovascular: HS I+II, regular, no murmurs Abdomen: Bowel Sounds Present, Soft, slightly tender in the upper abdomen Extremities: No edema Skin: No rashes, No breakdown Neurological: Grossly intact Psych/Mental Status: Appropriate Lab / Micro Data Result Diagrams: 09/16/21 04:23 09/16/21 04:23 Labs: Laboratory Results - last 24 hr 09/15/21 17:24: WBC 8.6, RBC 5.26, Hgb 13.5, Hct 43.6, MCV 82.9, MCH 25.7 L, MCHC 31.0 L, RDW Std Deviation 42.6, RDW Coeff of Kahlil 14.1, Plt Count 329, MPV 10.4, Immature Gran % (Auto) 0.400, Neut % (Auto) 66.6, Lymph % (Auto) 21.6, [place] % (Auto) 9.5, Eos % (Auto) 1.3, Baso % (Auto) 0.6, Absolute Neuts (auto) 5.7, Absolute Lymphs (auto) 1.85, Nucleated RBC % 0 09/15/21 17:24: Sodium 142, Potassium 3.8, Chloride 109 H, Carbon Dioxide 26.0, Anion Gap 7, BUN 14, Creatinine 0.83, Estim Creat Clear Calc 59.04, Est GFR (MDRD) Af Amer 88, Est GFR (MDRD) Non-Af 72, BUN/Creatinine Ratio 16.9, Glucose 106, Calcium 9.1 09/15/21 17:24: Blood Type O POSITIVE, Antibody Screen NEGATIVE 09/16/21 00:05: Hgb 11.6 L, Hct 38.0 09/16/21 04:23: WBC 6.4, RBC 4.31, Hgb 11.1 L, Hct 36.5 L, MCV 84.7, MCH 25.8 L, MCHC 30.4 L, RDW Std Deviation 43.5, RDW Coeff of Kahlil 14.0, Plt Count 245, MPV 10.3, Immature Gran % (Auto) 0.300, Neut % (Auto) 63.8, Lymph % (Auto) 22.6, [place] % (Auto) 11.5 H, Eos % (Auto) 1.3, Baso % (Auto) 0.5, Absolute Neuts (auto) 4.1, Absolute Lymphs (auto) 1.44, Nucleated RBC % 0 09/16/21 04:23: Sodium 142, Potassium 3.3 L, Chloride 111 H, Carbon Dioxide 26.0, Anion Gap 5, BUN 11, Creatinine 0.80, Estim Creat Clear Calc 61.26, Est GFR (MDRD) Af Amer 92, Est GFR (MDRD) Non-Af 76, BUN/Creatinine Ratio 13.8, Glucose 94, Calcium 8.3 L, Total Bilirubin 0.70, AST 16, ALT 23, Alkaline Phosphatase 127 H, Total Protein 5.9 L, Albumin 2.8 L, Globulin 3.1, Albumin/Globulin Ratio 0.9 09/16/21 04:23: Magnesium 2.0 Radiology Impression Abdomen/Pelvis CT 09/15/21 17:29 IMPRESSION: Findings consistent with nonspecific colitis involving predominantly the transverse descending and rectosigmoid segments without inflammatory stranding in the fat at this time. There is slightly hyperattenuated density within the cecum of uncertain significance possibly due to recently ingested material. Intraluminal hemorrhage not entirely excluded. Radionuclide tagged red blood cell study would be helpful for further evaluation of GI bleeding site if clinically warranted Bilateral renal cysts which will not require additional imaging. Other findings as above Electronically Signed: Paul Patel MD at 19:07 EDT , Charges/Coding Visit Charges Inpatient E&M: 55617 Init Hosp L2
[2021-09-16] MEDS: Atorvastatin Calcium 40 MG Tablet PO (22:01)
[2021-09-17 03:30] VITALS: BP 114/60; PULSE 61; RESP 18; TEMP 35.8; O2SAT 92
[2021-09-17] MEDS: 0.9% Normal Saline 1,000 ML 50 ML IV (05:39)
[2021-09-17 06:15] LABS: Absolute Lymphocyte Count 1.48 X10^3/uL (0.83-4.51); Absolute Neutrophil Count 3.1 X10^3/uL (2.0-7.7); Basophil# 0.04 X10^3/uL; Basophil% 0.7 % (0-1); Eosinophil# 0.19 X10^3/uL; Eosinophils% 3.5 % (0-5); Hematocrit 38.5 % (37-47); Hemoglobin 11.4 g/dL (12.0-15.0); Lymphocyte # 1.48 X10^3/ul (0.83-4.51); Mean Corp Hgb Conc 29.6 g/dL (32-36); Mean Corpuscular Hgb 25.4 pg (27.0-32.0); Mean Corpuscular Volume 85.9 fL (81-99); Mean Platelet Vol. 10.6 fl (6.2-12.0); Monocyte# 0.63 X10^3/uL; Monocyte% 11.5 % (0-10); NRBC Flagged by Analyzer 0 % (0-5); Neutrophil # 3.11 X10^3/uL (2.7-7.7); Neutrophil % 56.8 % (47-70); Platelet Count 264 K/mm3 (150-450); RBC Distribution Width CV 14.2 % (11.6-14.6); RBC Distribution Width SD 44.5 fl (35.1-43.9); Red Blood Count 4.48 M/mm3 (4.2-5.4); White Blood Count 5.5 K/mm3 (4.4-11.0)
[2021-09-17 06:43] LABS: ALB/GLOB Ratio 0.8 RATIO (0.9-2.4); AST(SGOT) 17 U/L (15-37); Alanine Aminotransfer ALT/SGPT 26 U/L (13-56); Albumin, Serum 2.7 g/dL (3.2-5.0); Alkaline Phosphatase 133 U/L (45-117); Anion Gap 4 (5-15); BUN 13 mg/dL (7-18); BUN/Creat Ratio 16.2 RATIO (10-20); Calcium,Total 8.3 mg/dL (8.5-10.1); Chloride 111 mmol/L (98-107); EST Glomerular Filtration Rate 75 mL/min (>60); Est Glom Filt Rate - Afr Amer 91 mL/min (>60); Estimated Creatinine Clearance 61.26 ml/min; Globulin 3.2 g/dL (2.2-4.2); Glucose 98 mg/dL (74-106); Potassium 3.8 mmol/L (3.5-5.1); Protein, Total 5.9 g/dL (6.4-8.2); Sodium Level 141 mmol/L (136-145)
[2021-09-17 08:15] VITALS: BP 137/68; PULSE 58; RESP 18; TEMP 36.5; O2SAT 96
[2021-09-17] MEDS: Amiodarone 200 MG Tablet PO (08:16)
[2021-09-17] MEDS: Verapamil SR 240 MG Tablet PO (08:16)
[2021-09-17 08:17] VITALS: BP 137/68; PULSE 58
[2021-09-17] MEDS: Loratadine 10 MG Tablet PO (08:17)
[2021-09-17] MEDS: Metoprolol Tartrate 25 MG Tablet 12.5 MG PO (08:17)
--- NOTE | 2021-09-17 08:47 | PN_ITS ---
Subjective Subjective Patient tolerated a diet with a little bit of crampy abdominal pain. She has not had a bowel movement. She denied any lower GI bleeding. Objective Data Objective Data Vital Signs: Vital Signs Temp Pulse Resp BP Pulse Ox O2 Del Method 96.4 F L 58 L 18 137/68 H 92 Room Air 09/17/21 03:30 09/17/21 08:17 09/17/21 03:30 09/17/21 08:17 09/17/21 03:30 09/17/21 03:30 Oxygen Delivery Method Room Air Weight: 206 lb 2.115 oz Body Mass Index (BMI) 33.3 Intake & Output: Intake and Output for Last 24 Hours 09/15/21 09/16/21 09/17/21 23:59 23:59 23:59 Intake Total 500 / 500 2576.17 / 2576.17 995.33 / 995.33 Output Total 600 / 600 Balance 500 / 500 1975.17 / 1975.17 995.33 / 995.33 Lab / Micro Data Result Diagrams: 09/17/21 05:20 09/17/21 05:20 Labs: Laboratory Results - last 24 hr 09/16/21 04:23: Magnesium 2.0 09/17/21 05:20: WBC 5.5, RBC 4.48, Hgb 11.4 L, Hct 38.5, MCV 85.9, MCH 25.4 L, MCHC 29.6 L, RDW Std Deviation 44.5 H, RDW Coeff of Kahlil 14.2, Plt Count 264, MPV 10.6, Immature Gran % (Auto) 0.500, Neut % (Auto) 56.8, Lymph % (Auto) 27.0, [place] % (Auto) 11.5 H, Eos % (Auto) 3.5, Baso % (Auto) 0.7, Absolute Neuts (auto) 3.1, Absolute Lymphs (auto) 1.48, Nucleated RBC % 0 09/17/21 05:20: Sodium 141, Potassium 3.8, Chloride 111 H, Carbon Dioxide 26.0, Anion Gap 4 L, BUN 13, Creatinine 0.80, Estim Creat Clear Calc 61.26, Est GFR (MDRD) Af Amer 91, Est GFR (MDRD) Non-Af 75, BUN/Creatinine Ratio 16.2, Glucose 98, Calcium 8.3 L, Total Bilirubin 0.40, AST 17, ALT 26, Alkaline Phosphatase 133 H, Total Protein 5.9 L, Albumin 2.7 L, Globulin 3.2, Albumin/Globulin Ratio 0.8 L Physical Exam Narrative Physical exam: General: Alert, Oriented x3, Cooperative, not pale, well hydrated HEENT: Atraumatic Oral: Moist Mucosa Neck: Supple Lungs: Clear to auscultation Cardiovascular: HS I+II, regular, no murmurs Abdomen: Bowel Sounds Present, Soft, slightly tender in the upper abdomen Extremities: No edema Skin: No rashes, No breakdown Neurological: Grossly intact Psych/Mental Status: Appropriate Assessment & Plan Assessment/Plan (1) Acute lower gastrointestinal bleeding: PLAN: Acute lower GI bleeding thought to be secondary to ischemic colitis in the setting of a patient that has diverticular disease. She is tolerating a diet and her hemoglobin seems to be stable. She can be discharged from GI standpoint. (2) Colitis: PLAN: She will need to be on a stool softener twice a day plus as needed Bentyl until she is seen in the office for follow-up. (3) On amiodarone therapy: PLAN: She needs work-up for possible amiodarone induced fatty liver disease developing into possible fibrosis. Her liver function tests seem to be stable at this time and can be worked up as an outpatient. Charges/Coding Visit Charges Inpatient E&M: 77063 Subs Hosp L2
[2021-09-17] MEDS: Acetaminophen 325 MG Tablet 650 MG PO (10:02)
--- NOTE | 2021-09-17 10:14 | DCINST_ITS ---
Discharge Instructions Diet Discharge Diet: Low fat / Low cholesterol and 2000 mg Sodium Diet Activity Discharge Activity: Return to Normal Activity Follow Up Care Test Results: Test results from this visit will be discussed in further detail at your follow- up appointment, if applicable. Discharge Plan Admission Admit Date/Time: 09/15/21 19:49 Primary Reason for Your Visit: Acute GI bleed Attending Provider: Mariangel Bose Primary Care Provider: Paul Reynolds Consulting Providers: Nicola Cowan ; Jose A Hill Instructions Additional Instructions / Restrictions: Continue to keep yourself hydrated. Follow-up with Dr. Cowan with gastroenterology within 2 weeks. Follow-up with your primary care doctor within 1 week for repeat blood Discharge Orders/Prescriptions Prescriptions: New pantoprazole [Protonix] [address] for susp in packet 40 mg PO BID 30 Days Qty: 60 0RF Eliquis 5 mg tablet 5 mg PO BID 30 Days Qty: 60 0RF Continued epinephrine 0.3 MG syringe 0.3 mg IM X1 loratadine 10 MG tablet 10 mg PO DAILY albuterol sulfate 18 GM HFA aerosol inhaler 2 puff IH Q6H PRN PRN (Reason: Sob &/Or Wheezing) Label Comments: shortness of breath meclizine 25 MG tablet 25 mg PO Q6H PRN (Reason: Dizziness) Label Comments: vertigo and dizziness cyclosporine 1 DROP dropperette 1 drp EACH EYE BID atorvastatin 20 MG tablet 40 mg PO DAILY fluticasone propionate 1 SPRAY spray,suspension 2 spray NASAL DAILY PRN PRN (Reason: Allergies) albuterol sulfate 2.5 MG/3 ML solution for nebulization 2.5 mg inhalation Q4H PRN PRN (Reason: Sob &/Or Wheezing) ondansetron HCl 8 MG tablet 4 mg PO Q6H PRN (Reason: Nausea) acetaminophen 325 MG tablet 650 mg PO Q6H PRN PRN (Reason: Pain Score 1-3/Temp > 100.7 F) 0RF benzonatate 100 MG capsule 200 mg PO TID PRN (Reason: Cough) Qty: 20 0RF hydrocodone-acetaminophen 1 TABLET tablet 1 tab PO Q6H PRN PRN (Reason: Pain) 3 Days Qty: 10 0RF amiodarone 200 mg tablet 200 mg PO DAILY Qty: 90 3RF verapamil 240 mg tablet extended release 240 mg PO DAILY Qty: 90 3RF metoprolol tartrate 25 mg tablet 12.5 mg PO BID Qty: 90 3RF Discontinued pantoprazole 20 MG tablet 20 mg PO DAILY Label Comments: reflux Eliquis 5 mg tablet 5 mg PO BID Qty: 60 3RF Referrals / Follow Up: Paul Reynolds MD [Primary Care Provider] - In 1 Week Friend,DO Nicola [STAFF PHYSICIAN] - Within 2 Weeks Disposition Disposition (needs filled in before D/C Order can be placed): Home, Self Care
--- NOTE | 2021-09-17 10:22 | DS.PCM_ITS ---
Providers Date of Admission: 09/15/21 Date of Discharge: 09/17/21 Primary Care Physician: Dr. Paul Reynolds MD Consultations 09/15/21 21:08 Consult: Gastroenterology Routine Consulting Provider: CamrynNicola Reason for Consult: Acute GI bleed EMERGENT Consult: No MD Notified: Yes Date Notified: 09/15/21 Time Notified: 19:57 Method of Notification: ED Physician Initiated Comments:: was notified by dr car in er Reason For Visit: ACUTE LOWER GI BLEED Diagnosis Discharge Diagnosis (1) Acute lower gastrointestinal bleeding: Status: Resolved Code(s): K92.2 - Gastrointestinal hemorrhage, unspecified (2) Colitis: Status: Acute Code(s): K52.9 - Noninfective gastroenteritis and colitis, unspecified (3) On amiodarone therapy: Status: Chronic Code(s): Z79.899 - 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 Medications at Discharge Home Medications epinephrine 0.3 mg/0.3 mL injection, auto-injector 0.3 mg IM X1 ALLERGIC REACTIONS 05/04/13 loratadine 10 mg tablet 10 mg PO DAILY ALLERGIES 05/04/13 albuterol sulfate 90 mcg/actuation aerosol inhaler 2 puff IH Q6H PRN PRN Sob &/Or Wheezing 12/26/15 cyclosporine 0.05 % eye drops in a dropperette 1 drp EACH EYE BID ALLERGIES 03/28/16 meclizine 25 mg tablet 25 mg PO Q6H PRN Dizziness 03/28/16 atorvastatin 20 mg tablet 40 mg PO DAILY CHOLESTEROL 07/02/18 fluticasone propionate 50 mcg/actuation nasal spray,suspension 2 spray NASAL DAILY PRN PRN Allergies 07/02/18 albuterol sulfate 2.5 mg/3 mL (0.083 %) solution for nebulization 2.5 mg inhalation Q4H PRN PRN Sob &/Or Wheezing 12/04/18 ondansetron HCl 8 mg tablet 4 mg PO Q6H PRN Nausea 02/10/19 acetaminophen 325 mg tablet 650 mg PO Q6H PRN PRN Pain Score 1-3/Temp > 100.7 F 02/12/19 benzonatate 100 mg capsule 200 mg PO TID PRN Cough #20 caps 04/26/19 amiodarone 200 mg tablet 200 mg PO DAILY afib #90 tabs 10/13/19 verapamil 240 mg tablet,extended release 240 mg PO DAILY BP #90 tabs 12/30/19 metoprolol tartrate 25 mg tablet 12.5 mg PO BID afib, BP #90 tabs 11/22/20 hydrocodone-acetaminophen 5-325mg 5mg-325mg 1 tab PO Q6H PRN PRN Pain 3 days #10 TABLETS 06/10/21 apixaban 5 mg tablet (Eliquis) 5 mg PO BID 30 days #60 tabs 09/17/21 pantoprazole 40 mg granules delayed-release for susp in packet (Protonix) 40 mg PO BID 30 days #60 ea 09/17/21 Hospital Course Operations None Procedures None Summary of Care Provided Minutes Spent on Discharge: 40 Hospital Course: 21-year-old female with past medical history of chronic atrial fibrillation, on Eliquis, hypertension who presented with hematochezia that started on the day of admission. Patient denied any fever or chills or eating any restaurant. She had associated nausea, crampy abdominal pain that radiates to her right lower quadrant and back but no vomiting. Patient admits to having diarrhea ongoing for about 2 days. Admitting vitals in the ED was stable. Not on oxygen. Her WBC count was 8.6, hemoglobin was 13.5, platelet count was 329, CMP was unremarkable. CT of the abdomen pelvis showed nonspecific colitis involving the transverse, descending and rectosigmoid segments without inflammatory stranding in the fat at this time. Patient was admitted to the progressive care unit and monitored. She had 1 episode of hematochezia. She was started on IV PPI. Her Eliquis was held. Hemoglobin showed slight trend down to 11.6 but however remained stable at 11.4. Gastroenterology was consulted and recommended monitoring. [place] to be secondary to ischemic colitis. Patient tolerated advancement in her diet. She was discharged in a stable state and resumed on her Eliquis. She will need to follow-up with her primary care doctor and GI within 1-2 weeks. Physical Exam Narrative Physical exam: General: Alert, Oriented x3, Cooperative, not pale, well hydrated HEENT: Atraumatic Oral: Moist Mucosa Neck: Supple Lungs: Clear to auscultation Cardiovascular: HS I+II, regular, no murmurs Abdomen: Bowel Sounds Present, Soft, slightly tender in the upper abdomen Extremities: No edema Skin: No rashes, No breakdown Neurological: Grossly intact Psych/Mental Status: Appropriate Weight / BMI Weight Weight: 93.5 kg Body Mass Index (BMI) 33.3 ABG / Lab / Microbiology Data Result Diagrams: 09/17/21 05:20 09/17/21 05:20 Laboratory: Laboratory Results - last 24 hr 09/16/21 04:23: Magnesium 2.0 09/17/21 05:20: WBC 5.5, RBC 4.48, Hgb 11.4 L, Hct 38.5, MCV 85.9, MCH 25.4 L, MCHC 29.6 L, RDW Std Deviation 44.5 H, RDW Coeff of Kahlil 14.2, Plt Count 264, MPV 10.6, Immature Gran % (Auto) 0.500, Neut % (Auto) 56.8, Lymph % (Auto) 27.0, [place] % (Auto) 11.5 H, Eos % (Auto) 3.5, Baso % (Auto) 0.7, Absolute Neuts (auto) 3.1, Absolute Lymphs (auto) 1.48, Nucleated RBC % 0 09/17/21 05:20: Sodium 141, Potassium 3.8, Chloride 111 H, Carbon Dioxide 26.0, Anion Gap 4 L, BUN 13, Creatinine 0.80, Estim Creat Clear Calc 61.26, Est GFR (MDRD) Af Amer 91, Est GFR (MDRD) Non-Af 75, BUN/Creatinine Ratio 16.2, Glucose 98, Calcium 8.3 L, Total Bilirubin 0.40, AST 17, ALT 26, Alkaline Phosphatase 133 H, Total Protein 5.9 L, Albumin 2.7 L, Globulin 3.2, Albumin/Globulin Ratio 0.8 L D/C Instructions Discharge Diet: Low fat / Low cholesterol and 2000 mg Sodium Diet Meaningful Use Info Meaningful Use Diagnoses (Choose all that apply): None applicable Discharge Plan Admission Admit Date/Time: 09/15/21 19:49 Primary Reason for Your Visit: Acute GI bleed Attending Provider: Mariangel Bose Primary Care Provider: Paul Reynolds Consulting Providers: Nicola Cowan ; Jose A Hill Instructions Additional Instructions / Restrictions: Continue to keep yourself hydrated. Follow-up with Dr. Friend with gastroenterology within 2 weeks. Follow-up with your primary care doctor within 1 week for repeat blood Discharge Orders/Prescriptions Prescriptions: New pantoprazole [Protonix] [address] for susp in packet 40 mg PO BID 30 Days Qty: 60 0RF Eliquis 5 mg tablet 5 mg PO BID 30 Days Qty: 60 0RF Continued epinephrine 0.3 MG syringe 0.3 mg IM X1 loratadine 10 MG tablet 10 mg PO DAILY albuterol sulfate 18 GM HFA aerosol inhaler 2 puff IH Q6H PRN PRN (Reason: Sob &/Or Wheezing) Label Comments: shortness of breath meclizine 25 MG tablet 25 mg PO Q6H PRN (Reason: Dizziness) Label Comments: vertigo and dizziness cyclosporine 1 DROP dropperette 1 drp EACH EYE BID atorvastatin 20 MG tablet 40 mg PO DAILY fluticasone propionate 1 SPRAY spray,suspension 2 spray NASAL DAILY PRN PRN (Reason: Allergies) albuterol sulfate 2.5 MG/3 ML solution for nebulization 2.5 mg inhalation Q4H PRN PRN (Reason: Sob &/Or Wheezing) ondansetron HCl 8 MG tablet 4 mg PO Q6H PRN (Reason: Nausea) acetaminophen 325 MG tablet 650 mg PO Q6H PRN PRN (Reason: Pain Score 1-3/Temp > 100.7 F) 0RF benzonatate 100 MG capsule 200 mg PO TID PRN (Reason: Cough) Qty: 20 0RF hydrocodone-acetaminophen 1 TABLET tablet 1 tab PO Q6H PRN PRN (Reason: Pain) 3 Days Qty: 10 0RF amiodarone 200 mg tablet 200 mg PO DAILY Qty: 90 3RF verapamil 240 mg tablet extended release 240 mg PO DAILY Qty: 90 3RF metoprolol tartrate 25 mg tablet 12.5 mg PO BID Qty: 90 3RF Discontinued pantoprazole 20 MG tablet 20 mg PO DAILY Label Comments: reflux Eliquis 5 mg tablet 5 mg PO BID Qty: 60 3RF Referrals / Follow Up: Paul Reynolds MD [Primary Care Provider] - In 1 Week Nicola Cowan DO [STAFF PHYSICIAN] - Within 2 Weeks Disposition Disposition (needs filled in before D/C Order can be placed): Home, Self Care Charges/Coding Visit Charges Inpatient E&M: 37309 Disch Hosp
[2021-09-17 14:15] VITALS: BP 106/64; PULSE 54; RESP 20; TEMP 36.6; O2SAT 95
--- NOTE | 2021-09-22 17:11 | CASEMGMT ---
Notification received from [employer] that pt's pantoprazole medication requires a prior authorization. Additional information [facility] to complete request. This CHAPARRITA LEONG contacted pt who states she has been taking the medication she previously had which is 20mg. Instructed pt to take a second dose this evening. Pt states she has a follow-up appointment with Dr. Cowan tomorrow 09/23 and will discuss this with him at that time. Pt reports continued abd discomfort and states she is having bowel movements that are soft but more solid. Pt states she is able to take some PO and remains weak. Pt denies any additional concerns or questions. This RN SALO left a voicemail message with Dr. Cowan's office notifying them of the need for a prior authorization and pt's current dosing of pantoprazole. Call back number left to continue to assist as needed. Ashkan Melendrez RN CM
== END 2021-09-17 17:20 | disposition home or self-care (01) | DRG 393 ==
LOC: ED 20:02 → PCU 20:04
PROVIDERS: Admitting Provider Hospitalist; Emergency Provider Emergency Medicine; PCP Family Medicine; Visit Provider Internal Medicine
DX: K55.9 Vascular disorder of intestine, unspecified (principal); K57.91 Diverticulosis of intestine, part unspecified, without perforation or abscess with bleeding; I42.9 Cardiomyopathy, unspecified; I48.20 Chronic atrial fibrillation, unspecified; I27.21 Secondary pulmonary arterial hypertension; I48.0 Paroxysmal atrial fibrillation; I73.9 Peripheral vascular disease, unspecified; K52.9 Noninfective gastroenteritis and colitis, unspecified; I10 Essential (primary) hypertension; E78.5 Hyperlipidemia, unspecified; E87.6 Hypokalemia; J45.909 Unspecified asthma, uncomplicated; K21.9 Gastro-esophageal reflux disease without esophagitis; M81.0 Age-related osteoporosis without current pathological fracture; Z79.01 Long term (current) use of anticoagulants; Z79.899 Other long term (current) drug therapy; Z86.73 Personal history of transient ischemic attack (TIA), and cerebral infarction without residual deficits
CPT/HCPCS: 36415; 74176; 80048; 80053; 83735; 85014; 85018; 85025; 86850; 86900; 86901; 93005; 97802; 99285; J7030; A4216; J0295; J2405

== ENCOUNTER → 2021-10-05 | Outpatient (CLI) | payer MEDICARE, SELFPAY | END | disposition home or self-care (01) | LOC: PSN 08:05 | PROVIDERS: PCP Family Medicine; Referring Provider Internal Medicine Cardiovascular Disease; Visit Provider Internal Medicine Cardiovascular Disease | DX: I48.0 Paroxysmal atrial fibrillation (principal); R00.2 Palpitations | CPT/HCPCS: 93225; 93226 ==

== ENCOUNTER → 2021-11-18 | Outpatient (CLI) | payer MEDICARE, SELFPAY ==
[2021-11-18 11:00] LABS: Absolute Lymphocyte Count 1.61 X10^3/uL (0.83-4.51); Absolute Neutrophil Count 3.9 X10^3/uL (2.0-7.7); Basophil# 0.06 X10^3/uL; Basophil% 0.9 % (0-1); Eosinophil# 0.11 X10^3/uL; Eosinophils% 1.7 % (0-5); Hematocrit 42.2 % (37-47); Hemoglobin 13.1 g/dL (12.0-15.0); Lymphocyte # 1.61 X10^3/ul (0.83-4.51); Lymphocyte % 25.4 % (19-41); Mean Corpuscular Hgb 25.9 pg (27.0-32.0); Mean Corpuscular Volume 83.6 fL (81-99); Mean Platelet Vol. 9.9 fl (6.2-12.0); Monocyte# 0.61 X10^3/uL; Monocyte% 9.6 % (0-10); NRBC Flagged by Analyzer 0 % (0-5); Neutrophil # 3.93 X10^3/uL (2.7-7.7); Neutrophil % 61.9 % (47-70); Platelet Count 289 K/mm3 (150-450); RBC Distribution Width SD 45.4 fl (35.1-43.9); Red Blood Count 5.05 M/mm3 (4.2-5.4); White Blood Count 6.4 K/mm3 (4.4-11.0)
[2021-11-18 11:35] LABS: AST(SGOT) 26 U/L (15-37); Alanine Aminotransfer ALT/SGPT 31 U/L (13-56); Albumin, Serum 3.4 g/dL (3.2-5.0); Alkaline Phosphatase 153 U/L (45-117); Anion Gap 5 (5-15); BUN 14 mg/dL (7-18); BUN/Creat Ratio 15.7 RATIO (10-20); Calcium,Total 8.5 mg/dL (8.5-10.1); Chloride 110 mmol/L (98-107); Creatinine, Serum 0.89 mg/dL (0.55-1.02); EST Glomerular Filtration Rate 66 mL/min (>60); Est Glom Filt Rate - Afr Amer 80 mL/min (>60); Globulin 3.5 g/dL (2.2-4.2); Glucose 102 mg/dL (74-106); Potassium 3.7 mmol/L (3.5-5.1); Protein, Total 6.9 g/dL (6.4-8.2); Sodium Level 144 mmol/L (136-145); T4 Free Direct 1.12 ng/dL (0.76-1.46); Thyroid Stim Hormone (TSH) 4.48 uIU/mL (0.358-3.74)
== END | disposition home or self-care (01) ==
LOC: LAB 10:25
PROVIDERS: PCP Family Medicine; Referring Provider Physician Assistant Medical; Visit Provider Physician Assistant Medical
DX: I48.0 Paroxysmal atrial fibrillation (principal); I27.21 Secondary pulmonary arterial hypertension; I10 Essential (primary) hypertension; E78.5 Hyperlipidemia, unspecified; Z86.73 Personal history of transient ischemic attack (TIA), and cerebral infarction without residual deficits
CPT/HCPCS: 36415; 80053; 84439; 84443; 85025

== ENCOUNTER 2021-11-24 05:35 | Day surgery (SDC) | payer MEDICARE, SELFPAY ==
[2021-11-24 06:21] VITALS: BP 132/71; PULSE 61; RESP 16; TEMP 36.7; O2SAT 96; BMI 32.8
[2021-11-24] MEDS: Lactated Ringers 1,000 ML 15 ML IV (06:36)
--- NOTE | 2021-11-24 07:00 | COLBX_PTH ---
PATIENT: ROMAIN LOMBARDO LOC: [facility] U#:[id number] AGE/SX: 71/F ROOM: RE11/24/[address]: Dr. Nicola Cowan DO : 1950 BED: DIS: 11/24/2021 SPEC #: [id number] RECD: 11/24/21 11:41 STATUS: CORY SHIRA #: [id number] WOLFGANG: 11/24/21 07:[address]: Nicola Cowan DEPT: SURGICAL PATHOLOGY RECD BY: Carol Oneil ENTERED: 11/24/21 12:38 SP TYPE: COLON BX OT DR: Dr. Valencia Rivera MD Tissues: A - Ileum, NOS B - Transverse colon Procedures: Surgery Specimen Level IV HEADER OPERATION: Colonoscopy (MAC), biopsy PRE-OP DIAGNOSIS: Colitis TISSUE SUBMITTED: A ? Terminal ileum biopsy, B ? Transverse polyp biopsy MICROSCOPIC DIAGNOSIS A. Terminal ileum, biopsy: No pathologic change. B. Transverse colon polyp, biopsy: Fragments of hyperplastic polyp. Fragment of tubular adenoma. AM:chanda 11/25/2021 MICROSCOPIC DESCRIPTION Slides are reviewed. GROSS DESCRIPTION A - Received in fixative is one container labeled with the patient's name and designated terminal ileum. The specimen consists of multiple irregular fragments of light abreu soft tissue that in aggregate measure 0.9 x 0.5 x 0.1 cm. The specimen is totally submitted in one cassette. B - Received in fixative is one container labeled with the patient's name and designated transverse polyp biopsy. The specimen consists of two irregular fragments of light abreu soft tissue that in aggregate measure 0.8 x 0.4 x 0.1 cm. The specimen is totally submitted in one cassette. / SJ:chanda 11/24/2021 TC:5 [facility]: [id number] x2
--- NOTE | 2021-11-24 07:01 | HP.PCM_ITS ---
History and Physical Date of Admission: 11/24/21 [facility] [address] [place] [address] OFFICE VISIT Date of Service:? 09/23/21 MR#: [id number] Acct: [id number] Name:ROMAIN LAU Rep #: [id number] : 1950 ? ? Provider: Nicola Friend, DO Age/Sex:? 71/F ? ? Location[place] [facility] Status: Signed Intake Vital Signs ? 09/17/2211:41 09/23/2213:27 Height 5 ft 6 in 5 ft 6 in Weight: ? 208 lb BMI ? 33.5 Intake Visit Reasons:?Hospital FU Chief Complaint: GI Bleed Is patient in pain?: Yes (Abdomen) Allergies adhesive tape Allergy (Verified 09/23/21 14:35) Rashpropoxyphene HCl [From Darvon] Allergy (Verified 09/23/21 14:35) Rashsulfamethoxazole [From Bactrim] Allergy (Verified 09/23/21 14:35) Shortness of breathtrimethoprim [From Bactrim] Allergy (Verified 09/23/21 14:35) Shortness of breathvenom-honey bee [bee venom (honey bee)] Allergy (Verified 09/23/21 14:35) Anaphylaxisvenom-wasp [wasp venom] Allergy (Verified 09/23/21 14:35) Anaphylaxisprednisone Adverse Reaction (Verified 09/23/21 14:35) Diarrheaanything that stings Allergy (Uncoded 09/23/21 14:35) Anaphylaxisbanana peppers Allergy (Uncoded 09/23/21 14:35) HivesFIBERGLASS Allergy (Uncoded 09/23/21 14:35) Shortness of breath Medications epinephrine 0.3 mg/0.3 mL injection, auto-injector 0.3 mg IM X1 ALLERGIC REACTIONS 05/04/13 [History Confirmed 09/23/21] loratadine 10 mg tablet 10 mg PO DAILY ALLERGIES 05/04/13 [History Confirmed 09/23/21] albuterol sulfate 90 mcg/actuation aerosol inhaler 2 puff IH Q6H PRN PRN Sob &/Or Wheezing 12/26/15 [History Confirmed 09/23/21] cyclosporine 0.05 % eye drops in a dropperette 1 drp EACH EYE BID ALLERGIES 03/28/16 [History Confirmed 09/23/21] meclizine 25 mg tablet 25 mg PO Q6H PRN Dizziness 03/28/16 [History Confirmed 09/23/21] atorvastatin 20 mg tablet 40 mg PO DAILY CHOLESTEROL 07/02/18 [History Confirmed 09/23/21] fluticasone propionate 50 mcg/actuation nasal spray,suspension 2 spray NASAL DAILY PRN PRN Allergies 07/02/18 [History Confirmed 09/23/21] albuterol sulfate 2.5 mg/3 mL (0.083 %) solution for nebulization 2.5 mg inhalation Q4H PRN PRN Sob &/Or Wheezing 12/04/18 [History Confirmed 09/23/21] ondansetron HCl 8 mg tablet 4 mg PO Q6H PRN Nausea 02/10/19 [History Confirmed 09/23/21] acetaminophen 325 mg tablet 650 mg PO Q6H PRN PRN Pain Score 1-3/Temp > 100.7 F 02/12/19 [Rx Confirmed 09/23/21] benzonatate 100 mg capsule 200 mg PO TID PRN Cough #20 caps 04/26/19 [Rx Confirm ed 09/23/21] amiodarone 200 mg tablet 200 mg PO DAILY afib #90 tabs 10/13/19 [Rx Confirmed 09/23/21] verapamil 240 mg tablet,extended release 240 mg PO DAILY BP #90 tabs 12/30/19 [Rx Confirmed 09/23/21] metoprolol tartrate 25 mg tablet 12.5 mg PO BID afib, BP #90 tabs 11/22/20 [Rx Confirmed 09/23/21] hydrocodone-acetaminophen 5-325mg 5mg-325mg 1 tab PO Q6H PRN PRN Pain 3 days #10 TABLETS 06/10/21 [Rx Confirmed 09/23/21] apixaban 5 mg tablet (Eliquis) 5 mg PO BID 30 days #60 tabs 09/17/21 [Rx Confirmed 09/23/21] pantoprazole 40 mg granules delayed-release for susp in packet (Protonix) 40 mg PO BID 30 days #60 ea 09/17/21 [Rx Confirmed 09/23/21] dicyclomine 10 mg capsule 10 mg PO BID #60 caps 09/23/21 [Rx Confirmed 09/23/21] pantoprazole 40 mg tablet,delayed release 40 mg PO DAILY #30 tabs 09/23/21 [Rx Confirmed 09/23/21] [facility] Medical History? Asthma Atrial fibrillation BMI greater than 30 Community acquired pneumonia CVA (cerebral vascular accident) Essential (primary) hypertension GERD (gastroesophageal reflux disease) HLD (hyperlipidemia) Hypertension Migraine Non-smoker On amiodarone therapy Osteoporosis Paroxysmal atrial fibrillation Secondary pulmonary arterial hypertension Suspected 2019 novel coronavirus infection (05/19/19) TIA (transient ischemic attack) Traumatic hematoma of abdominal wall Surgical History? History of cholecystectomy history of mastoid tumor resection History of total hysterectomy Family History? Father CAD (coronary artery disease)Brother Heart disease Social History? Smoking Status:? Never smoker HPI HPI Chief Complaint: GI Bleed Details: ORMAIN LOMBARDO, is a 71 F who presents to the office today for Follow up. Romain established with this clinic through [facility] hospitalization. She presented to [facility] ED 09.15.21 with lower abdominal cramping and diarrhea for several days with appearance of blood that day; apixaban for chronic A-Fib. History of diverticulitis and LLQ abdominal wall hematoma. Biochemical workup and imaging performed without concern; however, GIB continued while in ED and she was admitted with gastroenterology consultation the following day. GIB suspected to be secondary to ischemic colitis in the setting of cardiomyopathy with amiodarone therapy. Additional possibility of SCAD based on extensive diverticular disease as seen on imaging. Fatty liver disease diagnosed during hospitalization. She was discharged 09.17.21.? ? Ct abd/pel 09.15.21 mild prominence of liver with hyperattenuation; diffusely haustral appearance of mid-transverse, descending and RS colon consistent with IBD despite no inflammatory fat stranding; subtle hyper attenuating density in cecum and proximal ascending colon, recently ingested material versus hemorrhage; nonspecific interstitial thickening in lower lung lobes.? ? Today patient reports that she has had very little appetite since being discharged and some abdominal tenderness. Patient states that her stools are still very soft. She has also had some gas and cramping along with it. Denies any blood in her stools. States that she has had issues with irritable bowel syndrome for years but never had blood in her stool previously. Patient states that she takes Florajen probiotics that helps with her symptoms. Last colonoscopy was approximately 3 years ago at [facility]. Denies any family history of any colon or gastric cancers. Patient is taking Protonix 40 mg BID. ROS Const Constitutional: Positive for fatigue, frequent falls and headache(s); No fever(s) or weight change ENT ENT: Positive for headache(s); No difficulty swallowing Cardio Cardiology: No leg pain with exertion Gastro GI: Positive for abdominal pain, bloating, change in bowel habits, constipation, excessive flatus and nausea/dyspepsia; No diarrhea, heartburn, difficulty swallowing, Vomiting blood/hematemesis, Blood in stool or vomiting Musc Musculoskeletal: Positive for abnormal gait, back pain, Arthritis and sciatica; No joint pain, joint swelling, muscle cramps, muscle weakness, numbness, stiffness, tingling, leg pain at night or leg pain with exertion Skin Skin: Positive for dry skin and itchy eyes; No lesions or rash Neuro Neurology: Positive for abnormal gait, frequent falls and headache(s); No dizziness, numbness, tingling, tremor(s), Increased tone in limbs, paralysis or seizures Psych Psychiatric: No anxiety, No depression, No paranoia, No Behavioral Problems, No Compulsive Behavior, No hyperactivity, No inattentiveness, No obsessions/compulsions, Positive for Temper Tantrums and No suicidal ideation Endo Endocrine: Positive for fatigue; No weight change Aller/Imm Allergy/Immunologic: Positive for itchy eyes Ever/Lymp Hematologic/Lymphatic: Positive for easy bruising; No easy bleeding Exam Const General: cooperative and comfortable Nutritional Appearance: average body habitus and well nourished [facility] Head: normal to inspection Ears: hearing grossly normal bilaterally Nose: external nose normal Face and sinus: normal facial exam Mouth: oral mucosae normal Throat: posterior oropharynx normal Eyes General: appearance normal, both eyes and all related structures Neck Neck: normal visual inspection Chest Chest palpation & inspection: normal inspection of the chest and normal palpation of entire chest wall Resp Effort & Inspection: normal respiratory effort Auscultation: Bilateral: Clear to Auscultation Cardio Palpation: normal PMI Rate: regular rate Rhythm: regular rhythm GI Inspection: normal to inspection Auscultation: normal bowel sounds Percussion: normal to percussion Palpation: no hepatosplenomegaly Skin General: no rashes or lesions noted Neuro General: patient alert Extrem General: normal to inspection Psych Affect: normal affect Quality Reporting Tobacco Screening ([facility] 138) Smoking Status: Never smoker Assessment and Plan Assessment and Plan (1) Colitis: ?Status:?Acute ?Plan: Most likely colitis causing lower GI bleeding.? She will need a upcoming colonoscopy to evaluate her lower GI tract for staging and confirmation of ischemic colitis in the colon.? Also different diagnosis would be ulcerative colitis and less likely neoplasia. (2) On amiodarone therapy: ?Status:?Chronic ?Plan: She should undergo a FibroScan to evaluate the liver due to increased home imaging that she is fatty uptake in the liver thought to be partly secondary to amiodarone and other part likely secondary to obesity. ? ? ? Medications: New pantoprazole 40 mg PO DAILY 30 tabs 3RF ? ? dicyclomine 10 mg PO BID 60 caps 0RF ? ? I have re-examined the patient. There are no clinical changes since date of exam.
[2021-11-24 07:35] VITALS: BP 109/93; BP 132/71; PULSE 62; RESP 16; TEMP 36.4; O2SAT 97
--- NOTE | 2021-11-24 07:38 | OP.COLON_ITS ---
Patient Name: Francine Bailey Procedure Date: 11/24/2021 7:11 AM Date of : 1950 Age: 71 Procedure: Colonoscopy Indications: Screening for colorectal malignant neoplasm Providers: Nicola Cowan DO Medicines: Monitored Anesthesia Care Patient Profile: This is a 71 year old female. Refer to note in patient chart for documentation of history and physical. Last Colonoscopy: several years ago. Complications: No immediate complications. Procedure: Pre-Anesthesia Assessment: - Prior to the procedure, a History and Physical was performed, and patient medications and allergies were reviewed. The risks and benefits of the procedure and the sedation options and risks were discussed with the patient. All questions were answered and informed consent was obtained. Patient identification and proposed procedure were verified by the physician in the pre-procedure area. Mental Status Examination: alert and oriented. Airway Examination: normal oropharyngeal airway and neck mobility. Respiratory Examination: clear to auscultation. CV Examination: normal. Prophylactic Antibiotics: The patient does not require prophylactic antibiotics. Prior Anticoagulants: The patient has taken no previous anticoagulant or antiplatelet agents. ASA Grade Assessment: II - A patient with mild systemic disease. After reviewing the risks and benefits, the patient was deemed in satisfactory condition to undergo the procedure. The anesthesia plan was to use moderate sedation / analgesia (conscious sedation). Immediately prior to administration of medications, the patient was re-assessed for adequacy to receive sedatives. The heart rate, respiratory rate, oxygen saturations, blood pressure, adequacy of pulmonary ventilation, and response to care were monitored throughout the procedure. The physical status of the patient was re-assessed after the procedure. After I obtained informed consent, the scope was passed under direct vision. Throughout the procedure, the patient's blood pressure, pulse, and oxygen saturations were monitored continuously. The Colonoscope was introduced through the anus and advanced to the ileocecal valve. The colonoscopy was performed without difficulty. The patient tolerated the procedure well. The quality of the bowel preparation was adequate. Scope In: 7:15:05 AM Scope Withdrawal Time 0 hours 13 minutes 11 seconds Scope Out: 7:31:01 AM Total Procedure Duration Time 0 hours 15 minutes 56 seconds Findings: Hemorrhoids were found on perianal exam. Non-bleeding internal hemorrhoids were found during retroflexion. The hemorrhoids were mild and Grade I (internal hemorrhoids that do not prolapse). A 5 mm polyp was found in the transverse colon. The polyp was sessile. The polyp was removed with a cold snare. Resection and retrieval were complete. Verification of patient identification for the specimen was done. Estimated blood loss was minimal. A few small-mouthed diverticula were found in the recto-sigmoid colon and sigmoid colon. A large amount of solid stool was found in the ascending colon and in the cecum, precluding visualization. A patchy area of the distal ileum was congested. Biopsies were taken with a cold forceps for histology. Verification of patient identification for the specimen was done. Estimated blood loss was minimal. Impression: - Hemorrhoids found on perianal exam. - Non-bleeding internal hemorrhoids. - One 5 mm polyp in the transverse colon, removed with a cold snare. Resected and retrieved. - Diverticulosis in the recto-sigmoid colon and in the sigmoid colon. - Stool in the ascending colon and in the cecum. - Congested mucosa in the distal ileum. Biopsied. Recommendation: - Discharge patient to home. - Resume previous diet. - Continue present medications. - Await pathology results. - Repeat colonoscopy in 5 years for surveillance. Procedure Code(s): --- Professional --- 95304, Colonoscopy, flexible; with removal of tumor(s), polyp(s), or other lesion(s) by snare technique 42036, 59, Colonoscopy, flexible; with biopsy, single or multiple CPT copyright 2017 [employer]. All rights reserved. The codes documented in this report are preliminary and upon fiber product cutting machine operator review may be revised to meet current compliance requirements. Nicola Cowan DO 11/24/2021 7:37:46 AM This report has been signed electronically. Number of Addenda: 0 Note Initiated On: 11/24/2021 7:11 AM
--- NOTE | 2021-11-24 07:39 | OP.CCLET_ITS ---
11/24/2021 Valencia Rivera [address] [place] [address] Re : Colonoscopy procedure for Francine Bailey Dear Dr. Rivera This procedure was performed on October. My impressions and recommendations are as follows: Impressions : - Hemorrhoids found on perianal exam. - Non-bleeding internal hemorrhoids. - One 5 mm polyp in the transverse colon, removed with a cold snare. Resected and retrieved. - Diverticulosis in the recto-sigmoid colon and in the sigmoid colon. - Stool in the ascending colon and in the cecum. - Congested mucosa in the distal ileum. Biopsied. Recommendations : - Discharge patient to home. - Resume previous diet. - Continue present medications. - Await pathology results. - Repeat colonoscopy in 5 years for surveillance. My findings are described in the full procedure note, which is enclosed. If I can be of further assistance, please feel free to contact me at . Sincerely, Nicola Cowan, 11/24/2021 7:37:46 AM This report has been signed electronically.
[2021-11-24 07:40] VITALS: BP 132/56; BP 132/71; PULSE 67; RESP 18; O2SAT 100
[2021-11-24 07:45] VITALS: BP 101/69; BP 132/71; PULSE 68; RESP 18; O2SAT 99
[2021-11-24 07:51] VITALS: BP 132/68; BP 132/71; PULSE 64; RESP 18; TEMP 37.4; O2SAT 94
[2021-11-24 08:10] VITALS: BP 132/71
== END 2021-11-24 08:28 | disposition home or self-care (01) ==
LOC: EN 05:36 → AC 05:37
PROVIDERS: PCP Internal Medicine; Referring Provider Internal Medicine; Visit Provider Internal Medicine Gastroenterology
PROC: 0DJD8ZZ Inspection of Lower Intestinal Tract, Via Natural or Artificial Opening Endoscopic (ICD-10-PCS; CPT 45378; principal; 2021-11-24 06:55)
DX: Z12.11 Encounter for screening for malignant neoplasm of colon (principal); I27.21 Secondary pulmonary arterial hypertension; K51.90 Ulcerative colitis, unspecified, without complications; I48.0 Paroxysmal atrial fibrillation; K52.9 Noninfective gastroenteritis and colitis, unspecified; K57.30 Diverticulosis of large intestine without perforation or abscess without bleeding; K63.5 Polyp of colon; K63.89 Other specified diseases of intestine; K76.0 Fatty (change of) liver, not elsewhere classified; K64.0 First degree hemorrhoids; Z79.899 Other long term (current) drug therapy; I10 Essential (primary) hypertension; E78.5 Hyperlipidemia, unspecified; Z79.01 Long term (current) use of anticoagulants; I34.0 Nonrheumatic mitral (valve) insufficiency; Z86.73 Personal history of transient ischemic attack (TIA), and cerebral infarction without residual deficits; Z86.19 Personal history of other infectious and parasitic diseases; M19.90 Unspecified osteoarthritis, unspecified site; M81.0 Age-related osteoporosis without current pathological fracture; Z78.0 Asymptomatic menopausal state
CPT/HCPCS: 45380; 45385; 88305; J7120; J2405

== ENCOUNTER → 2021-12-08 | Outpatient (CLI) | payer MEDICARE, SELFPAY ==
[2021-12-08 15:40] LABS: Absolute Lymphocyte Count 1.93 X10^3/uL (0.83-4.51); Absolute Neutrophil Count 3.8 X10^3/uL (2.0-7.7); Basophil# 0.05 X10^3/uL; Basophil% 0.8 % (0-1); Eosinophil# 0.12 X10^3/uL; Eosinophils% 1.8 % (0-5); Hematocrit 40.2 % (37-47); Hemoglobin 12.2 g/dL (12.0-15.0); Lymphocyte # 1.93 X10^3/ul (0.83-4.51); Lymphocyte % 29.6 % (19-41); Mean Corp Hgb Conc 30.3 g/dL (32-36); Mean Corpuscular Hgb 25.6 pg (27.0-32.0); Mean Corpuscular Volume 84.3 fL (81-99); Mean Platelet Vol. 9.9 fl (6.2-12.0); Monocyte# 0.58 X10^3/uL; Monocyte% 8.9 % (0-10); NRBC Flagged by Analyzer 0 % (0-5); Neutrophil # 3.83 X10^3/uL (2.7-7.7); Neutrophil % 58.6 % (47-70); Platelet Count 321 K/mm3 (150-450); RBC Distribution Width CV 15.5 % (11.6-14.6); RBC Distribution Width SD 46.7 fl (35.1-43.9); Red Blood Count 4.77 M/mm3 (4.2-5.4); White Blood Count 6.5 K/mm3 (4.4-11.0)
[2021-12-08 15:53] LABS: International Normalized Ratio 1.3; Prothrombin Time (Protime)PT. 15.8 SECONDS (11.7-14.9)
[2021-12-08 15:57] LABS: Erythrocyte Sedimentation Rate 21 mm/hr (0-30)
[2021-12-08 16:28] LABS: AST(SGOT) 16 U/L (15-37); Alanine Aminotransfer ALT/SGPT 23 U/L (13-56); Albumin, Serum 3.7 g/dL (3.2-5.0); Alkaline Phosphatase 142 U/L (45-117); Anion Gap 6 (5-15); BUN 16 mg/dL (7-18); BUN/Creat Ratio 17.9 RATIO (10-20); CRP 6.59 mg/L (0.0-3.0); Calcium,Total 8.9 mg/dL (8.5-10.1); Chloride 110 mmol/L (98-107); Creatinine, Serum 0.89 mg/dL (0.55-1.02); EST Glomerular Filtration Rate 66 mL/min (>60); Est Glom Filt Rate - Afr Amer 80 mL/min (>60); Ferritin 14 ng/mL (8-252); Globulin 3.6 g/dL (2.2-4.2); Glucose 99 mg/dL (74-106); LDH 238 U/L (84-246); Potassium 3.7 mmol/L (3.5-5.1); Protein, Total 7.3 g/dL (6.4-8.2); Sodium Level 142 mmol/L (136-145)
[2021-12-08 21:20] LABS: HIV - WCH Non-Reactive (Nonreactive)
[2021-12-12 16:09] LABS: Endomysial Antibody IgA Negative (Negative)
[2021-12-12 18:49] LABS: Immunoglobulin A 288 mg/dL (87-352); t-Transglutaminase IgA <2 U/mL (0-3)
[2021-12-13 14:29] LABS: Anti-Centromere B Ab <0.2 AI (0.0-0.9); Anti-Chromatin <0.2 AI (0.0-0.9); Anti-Jo <0.2 AI (0.0-0.9); Anti-Scleroderma-70 AB <0.2 AI (0.0-0.9); RNP Ab <0.2 AI (0.0-0.9); SJOGREN'S Anti-SS-A test < 0.2 AI (0.0-0.9); SJOGREN'S Anti-SS-B test < 0.2 AI (0.0-0.9); Smith Ab <0.2 AI (0.0-0.9)
[2021-12-13 16:09] LABS: Anti-Mitochondrial AB <20.0 Units (0.0-20.0); Anti-dsDNA Ab <1 IU/mL (0-9)
[2021-12-17 02:07] LABS: Albumin 3.8 g/dL (2.9-4.4); Alpha-1-Globulins 0.3 g/dL (0.0-0.4); Alpha-2-Globulins 0.9 g/dL (0.4-1.0); Angiotensin Convert Enzyme 71 U/L (14-82); Ceruloplasmin 29.4 mg/dL (19.0-39.0); Gamma Globulin 0.6 g/dL (0.4-1.8); HEPATITIS B SURFACE AG Negative (Negative); Hep C Antibodies <0.1 s/co ratio (0.0-0.9); Hepatitis A IgM Antibody Negative (Negative); Hepatitis B Core AB IgM Negative (Negative); Immunoglobulin A 280 mg/dL (87-352); Immunoglobulin E 5 IU/mL (6-495); Immunoglobulin G 694 mg/dL (586-1602); Immunoglobulin M 77 mg/dL (26-217); PROEL- TOTAL PROTEIN 6.9 g/dL (6.0-8.5)
[2021-12-18 09:47] LABS: Anti-Smooth Muscle ABS 3 Units (0-19); Copper, Serum or Plasma 125 ug/dL (80-158); Haptoglobin 245 mg/dL (37-355); Perinuclear Ab (P-ANCA) <1:20 titer (Neg:<1:20)
== END | disposition home or self-care (01) ==
LOC: LAB 15:12
PROVIDERS: PCP Internal Medicine; Visit Provider Internal Medicine Gastroenterology
DX: K76.9 Liver disease, unspecified (principal); K52.9 Noninfective gastroenteritis and colitis, unspecified; G45.9 Transient cerebral ischemic attack, unspecified; R53.83 Other fatigue
CPT/HCPCS: 36415; 80053; 80074; 82140; 82164; 82390; 82525; 82728; 82784; 82785; 83010; 83516; 83615; 84165; 85025; 85610; 85652; 86140; 86225; 86235; 86255; 86256; 86334; 86703

== ENCOUNTER → 2021-12-27 | Outpatient (CLI) | payer MEDICARE, SELFPAY ==
--- NOTE | 2021-12-27 08:10 | US_ITS ---
STUDY: ABDOMINAL ULTRASOUND - ELASTOGRAPHY REASON FOR VISIT: Female, 71 years old. Fatty infiltration of the liver. TECHNIQUE: Liver stiffness measurements were obtained on a Flinqer RS 85 ultrasound machine using a CA 1-7 probe following the SRU guidelines. 3 measurements were obtained using a 2-D-SWE method. The IQR/M was 23 % suggesting a quality data set. TECHNICAL QUALITY: Adequate. COMPARISON: Comparison is made with prior study done earlier in the day. FINDINGS: Liver: Fatty infiltration of the liver. Median liver stiffness measured 14.5 kPa. US/Elastography Parenchyma/Organ IMPRESSION: Liver stiffness measures 14.5 kPa compatible with F3-F4 (Moderate to severe liver fibrosis) Metavir score. Electronically Signed: Magdiel Cheung MD at 15:47 EDT ,
--- NOTE | 2021-12-27 08:10 | US_ITS ---
STUDY: ABDOMINAL ULTRASOUND - RIGHT UPPER QUADRANT REASON FOR VISIT: Female, 71 years old liver disease TECHNIQUE: Ultrasound evaluation of the right upper quadrant was performed with real-time and static taveras-scale imaging. TECHNICAL QUALITY: Adequate. COMPARISON: None. FINDINGS: Liver: The liver measures 15.5 cm. There is a heterogeneous echogenicity of the liver. The bile ducts are within normal limits. There is hepatic color flow. The direction of portal flow is hepatopetal. There is no demonstrated mass lesion. Gallbladder: The patient is status post cholecystectomy. Common Bile Duct (C.B.D.): The common bile duct measures 9.1 mm. Pancreas: There is nonvisualization of the pancreas due to overlying bowel gas. Right Kidney: Normal size of the right kidney. The right kidney measures 10.9 cm x 5.1 cm x 5.9 cm. Normal renal cortex. The right cortex measures 1.9 cm. There is a 4.1 cm x 3.7 cm x 3.3 cm cyst. There is no right hydronephrosis. US/Abdomen Limited IMPRESSION: Right renal cyst. Fatty infiltration of the liver. Electronically Signed: Magdiel Cheung MD at 15:45 EDT ,
== END | disposition home or self-care (01) ==
LOC: US 08:09
PROVIDERS: PCP Internal Medicine; Referring Provider Internal Medicine Gastroenterology; Visit Provider Internal Medicine Gastroenterology
DX: K76.9 Liver disease, unspecified (principal); K52.9 Noninfective gastroenteritis and colitis, unspecified
CPT/HCPCS: 76705; 76981

== ENCOUNTER 2022-01-06 09:12 | Emergency (ER) | payer MEDICARE, SELFPAY ==
[2022-01-06 09:12] VITALS: BP 163/68; PULSE 70; RESP 16; TEMP 36.2; O2SAT 92; BMI 34.9
[2022-01-06 09:55] VITALS: BP 163/68; PULSE 63; O2SAT 94
[2022-01-06] MEDS: HYDROcodone Bitartrate/Apap 5/325 Tablet PO (09:57)
--- NOTE | 2022-01-06 10:00 | RAD_ITS ---
STUDY: X-RAY - SACRUM/COCCYX REASON FOR EXAM: Female, 71 years old. Pain TECHNIQUE: 3 view(s) of the sacrum and coccyx were obtained. COMPARISON: None. FINDINGS: Normal bilateral sacroiliac joints. Normal visualized sacral ala and fused sacral bodies. Normal sacrococcygeal junction with a normal angulation. Normal coccygeal segments. The presacral soft tissue structures are unremarkable. RAD/Sacrum-Coccyx min 2 Views IMPRESSION: Normal x-rays of the sacrum and coccyx. Electronically Signed: Magdiel Cheung MD at 10:59 EST ,
--- NOTE | 2022-01-06 11:22 | EX.ED.DYSGE1 ---
HPI History of Present Illness Chief Complaint: Other, Pain/Inj Informant: patient Onset/Context/Timing Onset: Weeks (2) Context: Gradual Onset Timing: Continuous Quality: Sharp Location: Tailbone Worsened by: Certain positions Relieved by: Tylenol, laying on right hip Narrative Narrative: Patient presents with pain over her sacrum that has been getting worse over the past 2 weeks. Patient states it became acutely worse today. Patient states she tried to stand from a seated position when she felt pain over her tailbone. Patient states she felt a pop in the area. Patient describes her pain as sharp. Patient states it is better whenever she lays on her right hip and takes Tylenol. Patient states it is worse with certain positions. Patient denies any paresthesias or weakness. Patient denies any bowel or bladder changes. Patient denies any saddle anesthesia. [facility] Medical History Ambulates with cane Asthma Atrial fibrillation Back pain BMI greater than 30 Cardiology follow-up encounter Community acquired pneumonia CVA (cerebral vascular accident) Essential (primary) hypertension Gastric reflux GERD (gastroesophageal reflux disease) High cholesterol History of Clostridium difficile infection History of echocardiogram History of hiatal hernia History of stress test HLD (hyperlipidemia) Hypertension Migraine Non-smoker On amiodarone therapy Osteoarth NOS-up/arm Osteoarthritis Osteoporosis Paroxysmal atrial fibrillation Post-menopausal Secondary pulmonary arterial hypertension Suspected 2019 novel coronavirus infection (05/19/19) TIA (transient ischemic attack) Traumatic hematoma of abdominal wall 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 Wears glasses Wears partial dentures Home Medications epinephrine 0.3 mg/0.3 mL injection, auto-injector 0.3 mg IM X1 ALLERGIC REACTIONS 05/04/13 [History Last Taken Unknown] loratadine 10 mg tablet 10 mg PO DAILY ALLERGIES 05/04/13 [History Last Taken 09/15/21] albuterol sulfate 90 mcg/actuation aerosol inhaler 2 puff IH Q6H PRN PRN Sob &/Or Wheezing 12/26/15 [History Last Taken 09/09/19] cyclosporine 0.05 % eye drops in a dropperette 1 drp EACH EYE BID ALLERGIES 03/28/16 [History Last Taken 09/15/21] meclizine 25 mg tablet 25 mg PO Q6H PRN Dizziness 03/28/16 [History Last Taken 09/12/19] fluticasone propionate 50 mcg/actuation nasal spray,suspension 2 spray NASAL DAILY PRN PRN Allergies 07/02/18 [History Last Taken 09/15/21] albuterol sulfate 2.5 mg/3 mL (0.083 %) solution for nebulization 2.5 mg inhalation Q4H PRN PRN Sob &/Or Wheezing 12/04/18 [History Last Taken 12/01/18] acetaminophen 325 mg tablet 650 mg PO Q6H PRN PRN Pain Score 1-3/Temp > 100.7 F 02/12/19 [Rx Last Taken 09/14/19] benzonatate 100 mg capsule 200 mg PO TID PRN Cough #20 caps 04/26/19 [Rx Last Taken Unknown] verapamil 240 mg tablet,extended release 240 mg PO DAILY BP #90 tabs 12/30/19 [Rx Last Taken 11/24/21] apixaban 5 mg tablet (Eliquis) 5 mg PO BID #60 tabs 11/18/21 [Rx Last Taken 11/17/21] atorvastatin 40 mg tablet 40 mg PO DAILY 11/18/21 [History Last Taken Unknown] pantoprazole 40 mg tablet,delayed release See Rx Instructions .Route .COMPLEX #90 tabs 12/09/21 [Rx Last Taken Unknown] metoprolol tartrate 25 mg tablet 12.5 mg PO BID afib, BP #90 tabs 12/29/21 [Rx Last Taken Unknown] Allergy/AdvReac Type Severity Reaction Status Date / Time adhesive tape Allergy Rash Verified 01/06/22 09:12 pepper (genus Capsicum) Allergy Hives Verified 01/06/22 09:12 propoxyphene HCl Allergy Rash Verified 01/06/22 09:12 [From Darvon] sulfamethoxazole Allergy Shortness Verified 01/06/22 09:12 [From Bactrim] of breath trimethoprim [From Bactrim] Allergy Shortness Verified 01/06/22 09:12 of breath venom-honey bee Allergy Anaphylaxis Verified 01/06/22 09:12 [bee venom (honey bee)] venom-wasp [wasp venom] Allergy Anaphylaxis Verified 01/06/22 09:12 prednisone AdvReac Diarrhea Verified 01/06/22 09:12 FIBERGLASS Allergy Shortness Uncoded 01/06/22 09:12 of breath Family History Father CAD (coronary artery disease) Brother Heart disease Surgical History History of cholecystectomy history of mastoid tumor resection History of total hysterectomy Social History Smoking Status: Never smoker alcohol intake: current alcohol intake frequency: holidays/special occasions only substance use type: does not use caffeine: Yes Type: tea Number of servings: 2 ROS ROS ED Constitutional Constitutional ED: Denies chills or fever(s) Eyes Eyes: Denies blurry vision or change in vision ENT ENT ED: Denies rhinorrhea or sore throat Cardiovascular Cardiovascular: Denies chest pain or palpitations Respiratory/Chest Respiratory/Chest: Denies cough or dyspnea Gastrointestinal Gastrointestinal: Denies nausea or vomiting Genitourinary Genitourinary ED: Denies dysuria or hematuria Musculoskeletal Musculoskeletal: Reports back pain; Denies neck pain Integumentary Denies abscess or rash Neurologic Neurologic: Denies headache(s) or weakness Allergic/Immunologic Allergic/Immunologic ED: Denies mouth swelling or urticaria EXAM Physical Exam Const Vital Signs: 01/06/22 09:12 01/06/22 09:49 01/06/22 09:55 Temperature 97.1 F L Temperature Source Temporal Pulse Rate 70 63 Respiratory Rate 16 Respiratory Effort Normal Non-Labored Respiratory Pattern Normal Blood Pressure 163/68 H 163/68 H Blood Pressure Mean 99 99 Pulse Ox 92 94 Oxygen Delivery Method Room Air Room Air Positive well nourished, well developed and obese General Appearance ED: well developed and NAD Nutritional Appearance: obese Eyes PERRL and EOMs intact bilaterally Neck supple and no JVD Resp normal respiratory effort and clear to auscultation bilaterally Cardio regular rate and regular rhythm GI normal to inspection, nondistended, normoactive bowel sounds and non-tender Palpation: soft Back/Spine Back/Spine Narrative: There is tenderness over the sacrum and left sacroiliac joint. There is no bony crepitance or step-off. Range of motion was limited in all motions of the lumbosacral spine secondary to pain. Strength is 5/5 bilaterally in the lower extremities. There are no sensory deficits noted. Extremity normal to inspection Neuro oriented x3, CN's II-XII intact bilaterally and no sensory deficits noted Sensorium / Orientation: alert Motor Exam: strength 5/5 throughout Psych mental status grossly normal MDM MDM MDM Narrative Medical decision making narrative: Patient was given a dose of [place] here. X-rays of the sacrum and coccyx were obtained. There are 3 views. On my interpretation, there is no acute fracture. There is no spondylolisthesis. Radiologist also interpreted the x-rays and agrees. Patient was feeling better on reevaluation. Patient was advised of her findings. Patient was instructed use ice to the area. Patient was instructed to get an inflatable doughnut pillow to sit on. Patient was instructed to follow-up with her primary care physician in 5 to 7 days. Patient understood and was agreeable with the plan. All questions were answered. Radiography Diagnostic Testing: Clinical Impression(s) from Imaging Studies Sacrum and Coccyx X-Ray 01/06/22 10:00 IMPRESSION: Normal x-rays of the sacrum and coccyx. Electronically Signed: Magdiel Cheung MD at 10:59 EST , Discharge Plan Triage Chief Complaint: Other, Pain/Inj ED Provider: Nilo Hoffmann Dx/Rx/DC Orders Clinical Impression: Sacroiliitis, Obesity (BMI 30.0-34.9) Instructions: ED Sacroiliitis Prescriptions: No Action atorvastatin 40 mg tablet 40 mg PO DAILY Eliquis 5 mg tablet 5 mg PO BID Qty: 60 11RF epinephrine 0.3 MG syringe 0.3 mg IM X1 loratadine 10 MG tablet 10 mg PO DAILY albuterol sulfate 18 GM HFA aerosol inhaler 2 puff IH Q6H PRN PRN (Reason: Sob &/Or Wheezing) Label Comments: shortness of breath meclizine 25 MG tablet 25 mg PO Q6H PRN (Reason: Dizziness) Label Comments: vertigo and dizziness cyclosporine 1 DROP dropperette 1 drp EACH EYE BID fluticasone propionate 1 SPRAY spray,suspension 2 spray NASAL DAILY PRN PRN (Reason: Allergies) albuterol sulfate 2.5 MG/3 ML solution for nebulization 2.5 mg inhalation Q4H PRN PRN (Reason: Sob &/Or Wheezing) acetaminophen 325 MG tablet 650 mg PO Q6H PRN PRN (Reason: Pain Score 1-3/Temp > 100.7 F) 0RF benzonatate 100 MG capsule 200 mg PO TID PRN (Reason: Cough) Qty: 20 0RF verapamil 240 mg tablet extended release 240 mg PO DAILY Qty: 90 3RF pantoprazole 40 mg tablet,delayed release (DR/EC) See Rx Instructions .ROUTE .COMPLEX Qty: 90 0RF Dose Instruction: TAKE 1 TABLET EVERY DAY Rx Instructions: TAKE 1 TABLET EVERY DAY metoprolol tartrate 25 mg tablet 12.5 mg PO BID Qty: 90 3RF Primary Care Provider: Valencia Rivera Referrals: Valencia Rivera MD [Primary Care Provider] - 5-7 Days Disposition Disposition: Home, Self Care
== END 2022-01-06 11:53 | disposition home or self-care (01) ==
PROVIDERS: Emergency Provider Emergency Medicine; PCP Internal Medicine; Visit Provider Emergency Medicine
DX: M46.1 Sacroiliitis, not elsewhere classified (principal); I27.20 Pulmonary hypertension, unspecified; E66.9 Obesity, unspecified; I10 Essential (primary) hypertension; E78.00 Pure hypercholesterolemia, unspecified; Z79.01 Long term (current) use of anticoagulants; Z79.899 Other long term (current) drug therapy; Z86.73 Personal history of transient ischemic attack (TIA), and cerebral infarction without residual deficits
CPT/HCPCS: 72220; 99284

== ENCOUNTER 2022-01-24 10:26 | Emergency (ER) | payer MEDICARE, SELFPAY ==
[2022-01-24 10:26] VITALS: BP 175/77; PULSE 58; RESP 18; TEMP 36.6; O2SAT 99; BMI 33.9
--- NOTE | 2022-01-24 11:30 | RAD_ITS ---
STUDY: X-RAY - LEFT KNEE REASON FOR EXAM: Female, 71 years old. Pain after trauma TECHNIQUE: 4 view(s) of the knee. COMPARISON: None. FINDINGS: Normal visualized distal femur. Normal visualized proximal tibia and fibula. Normal proximal tibiofibular articulation. There is mild degenerative arthrosis of the medial femorotibial compartment. Normal lateral femorotibial compartment. There is mild degenerative arthrosis of the patellofemoral articulation. The soft tissue structures are unremarkable. RAD/Knee 4 or More Views IMPRESSION: Degenerative arthrosis. Electronically Signed: Danilo Fernandez MD at 12:33 EST ,
--- NOTE | 2022-01-24 11:50 | RAD_ITS ---
STUDY: X-RAY - RIGHT KNEE REASON FOR EXAM: Female, 71 years old. Pain and stiffness TECHNIQUE: 4 view(s) of the knee. COMPARISON: None. FINDINGS: Normal visualized distal femur. Normal visualized proximal tibia and fibula. Normal proximal tibiofibular articulation. There is severe degenerative arthrosis of the medial femorotibial compartment with severe joint space narrowing. Normal lateral femorotibial compartment. Normal patellofemoral articulation. The soft tissue structures are unremarkable. RAD/Knee 4 or More Views IMPRESSION: Degenerative arthrosis, no demonstrated fracture. However, the arthritic changes in the right knee are more advanced than those noted in the left knee from a study earlier today. Electronically Signed: Danilo Fernandez MD at 12:34 EST ,
--- NOTE | 2022-01-24 12:08 | ED.VIS.FALL ---
HPI HPI - Fall History of Present Illness Chief Complaint: Fall Informant: patient Narrative Narrative: Fall. She was going in through a screen door. The latch that kept it from going too far broke causing her to lose her balance and fall onto her hands and knees. She states she did not hurt her hands or elbows or shoulders. She never hit her head. She landed most of the force on her knees. She states her right knee is a bad and needs to be replaced. It hurts all the time but is hurting may be a little bit more. The left knee normally does not hurt that much but it is now sore. The right knee is swollen but is always swollen. The left knee really has not swelled much. She is able to bear weight but is somewhat sore to do that Of note the patient is on Eliquis for a history of atrial fibrillation and is taking it. [facility] Medical History Ambulates with cane Asthma Atrial fibrillation Back pain BMI greater than 30 Cardiology follow-up encounter Community acquired pneumonia CVA (cerebral vascular accident) Essential (primary) hypertension Gastric reflux GERD (gastroesophageal reflux disease) High cholesterol History of Clostridium difficile infection History of echocardiogram History of hiatal hernia History of stress test HLD (hyperlipidemia) Hypertension Migraine Non-smoker On amiodarone therapy Osteoarth NOS-up/arm Osteoarthritis Osteoporosis Paroxysmal atrial fibrillation Post-menopausal Secondary pulmonary arterial hypertension Suspected 2019 novel coronavirus infection (05/19/19) TIA (transient ischemic attack) Traumatic hematoma of abdominal wall 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 Wears glasses Wears partial dentures Home Medications epinephrine 0.3 mg/0.3 mL injection, auto-injector 0.3 mg IM X1 ALLERGIC REACTIONS 05/04/13 [History Last Taken Unknown] loratadine 10 mg tablet 10 mg PO DAILY ALLERGIES 05/04/13 [History Last Taken 09/15/21] albuterol sulfate 90 mcg/actuation aerosol inhaler 2 puff IH Q6H PRN PRN Sob &/Or Wheezing 12/26/15 [History Last Taken 09/09/19] cyclosporine 0.05 % eye drops in a dropperette 1 drp EACH EYE BID ALLERGIES 03/28/16 [History Last Taken 09/15/21] meclizine 25 mg tablet 25 mg PO Q6H PRN Dizziness 03/28/16 [History Last Taken 09/12/19] fluticasone propionate 50 mcg/actuation nasal spray,suspension 2 spray NASAL DAILY PRN PRN Allergies 07/02/18 [History Last Taken 09/15/21] albuterol sulfate 2.5 mg/3 mL (0.083 %) solution for nebulization 2.5 mg inhalation Q4H PRN PRN Sob &/Or Wheezing 12/04/18 [History Last Taken 12/01/18] acetaminophen 325 mg tablet 650 mg PO Q6H PRN PRN Pain Score 1-3/Temp > 100.7 F 02/12/19 [Rx Last Taken 09/14/19] benzonatate 100 mg capsule 200 mg PO TID PRN Cough #20 caps 04/26/19 [Rx Last Taken Unknown] verapamil 240 mg tablet,extended release 240 mg PO DAILY BP #90 tabs 12/30/19 [Rx Last Taken 11/24/21] apixaban 5 mg tablet (Eliquis) 5 mg PO BID #60 tabs 11/18/21 [Rx Last Taken 11/17/21] atorvastatin 40 mg tablet 40 mg PO DAILY 11/18/21 [History Last Taken Unknown] pantoprazole 40 mg tablet,delayed release See Rx Instructions .Route .COMPLEX #90 tabs 12/09/21 [Rx Last Taken Unknown] metoprolol tartrate 25 mg tablet 12.5 mg PO BID afib, BP #90 tabs 12/29/21 [Rx Last Taken Unknown] scopolamine base 1 mg over 3 days transdermal patch 1 patch transdermal Q3D PRN nausea and vomiting #4 ea 01/13/22 [Rx Last Taken Unknown] Allergy/AdvReac Type Severity Reaction Status Date / Time adhesive tape Allergy Rash Verified 01/24/22 10:30 pepper (genus Capsicum) Allergy Hives Verified 01/24/22 10:30 propoxyphene HCl Allergy Rash Verified 01/24/22 10:30 [From Darvon] sulfamethoxazole Allergy Shortness Verified 01/24/22 10:30 [From Bactrim] of breath trimethoprim [From Bactrim] Allergy Shortness Verified 01/24/22 10:30 of breath venom-honey bee Allergy Anaphylaxis Verified 01/24/22 10:30 [bee venom (honey bee)] venom-wasp [wasp venom] Allergy Anaphylaxis Verified 01/24/22 10:30 prednisone AdvReac Diarrhea Verified 01/24/22 10:30 FIBERGLASS Allergy Shortness Uncoded 01/24/22 10:30 of breath Family History Father CAD (coronary artery disease) Brother Heart disease Surgical History History of cholecystectomy history of mastoid tumor resection History of total hysterectomy Social History Smoking Status: Never smoker alcohol intake: current alcohol intake frequency: holidays/special occasions only substance use type: does not use caffeine: Yes Type: tea Number of servings: 2 ROS ROS ED Constitutional Constitutional ED: Denies fever(s) Eyes Eyes: Denies blurry vision, change in vision or diplopia ENT ENT ED: Reports other Details: No facial or head trauma or complaint ; Denies rhinorrhea or sore throat Cardiovascular Cardiovascular: Denies racing heartbeat Respiratory/Chest Respiratory/Chest: Denies dyspnea Gastrointestinal Gastrointestinal: Denies nausea or vomiting Genitourinary Genitourinary ED: Denies hematuria Musculoskeletal Musculoskeletal: Reports arthralgias; Denies back pain, myalgias or neck pain Integumentary Denies rash Neurologic Neurologic: Denies headache(s), paresthesias or weakness Endocrine Endocrinology: Denies polyphagia or polyuria Hematologic/Lymphatic Hematologic/Lymphatic: Reports easy bleeding and easy bruising Allergic/Immunologic Allergic/Immunologic ED: Denies urticaria EXAM Physical Exam Const Vital Signs: 01/24/22 10:26 01/24/22 10:40 Temperature 97.8 F Temperature Source Temporal Pulse Rate 58 L Respiratory Rate 18 Respiratory Effort Normal Respiratory Depth Normal Respiratory Pattern Irregular Blood Pressure 175/77 H Blood Pressure Mean 109 Pulse Ox 99 Oxygen Delivery Method Room Air Room Air Positive well nourished and well developed General Appearance ED: well developed and NAD HEENT Reports normocephalic HEENT Narrative: No sign of contusions abrasions swelling or tenderness anywhere on her head or neck. atraumatic Eyes EOMs intact bilaterally Neck full ROM and no lymphadenopathy General: Negative for tenderness Chest Wall inspection of chest normal Resp normal respiratory effort Cardio regular rate and regular rhythm Cardio Narrative: Heart rate actually sounds regular. GI non-tender and non-distended Extremity Extremity Narrative: Patient does have some mild swelling of the right knee which she states is normal. I do not see any acute abrasion or contusion. Extensor is intact. There is anterior tenderness mostly over the patella. Left knee does have a slight contusion abrasion laterally. But there is really no swelling of note. She also has anterior tenderness to this knee. Both knees are stable to varus and valgus stress. Adan is a little bit difficult to perform on her. Neuro oriented x3, moves all extremities and no sensory deficits noted Sensory Exam: No sensory level loss detected Motor Exam: strength 5/5 throughout Psych mental status grossly normal Skin Trauma: abrasion MDM MDM MDM Narrative Medical decision making narrative: X-rays show arthritic changes right greater than left. No acute process. Patient states she just takes Tylenol for pain. She does not want anything else. I think this is a reasonable option. She has a walker and cane and help at home. She should use ice and rest. Return with worsening pain, inability to ambulate, fevers chills or swelling. I was also explained that the patient is going to have some pain likely from some hemarthrosis developing from the Eliquis. Her knees are rechecked and they are really not any more swollen or bruised than when I first saw them. There is minimal bruising on the left. There is chronic effusion on the right that she states is normal. Radiography Diagnostic Testing: Clinical Impression(s) from Imaging Studies Knee X-Ray 01/24/22 11:30 IMPRESSION: Degenerative arthrosis. Electronically Signed: Danilo Fernandez MD at 12:33 EST , Knee X-Ray 01/24/22 11:50 IMPRESSION: Degenerative arthrosis, no demonstrated fracture. However, the arthritic changes in the right knee are more advanced than those noted in the left knee from a study earlier today. Electronically Signed: Danilo Fernandez MD at 12:34 EST , X-rays of both knees show no acute fracture or dislocation. There is significant arthritis greater on the right. Discharge Plan Triage Chief Complaint: Fall ED Provider: Rei Wolff Dx/Rx/DC Orders Clinical Impression: Fall at home, Contusion of right knee, Contusion of knee, left, Coagulopathy Instructions: ED Contusion, Lower Extremity, ED Knee Sprain Prescriptions: No Action atorvastatin 40 mg tablet 40 mg PO DAILY Eliquis 5 mg tablet 5 mg PO BID Qty: 60 11RF epinephrine 0.3 MG syringe 0.3 mg IM X1 loratadine 10 MG tablet 10 mg PO DAILY albuterol sulfate 18 GM HFA aerosol inhaler 2 puff IH Q6H PRN PRN (Reason: Sob &/Or Wheezing) Label Comments: shortness of breath meclizine 25 MG tablet 25 mg PO Q6H PRN (Reason: Dizziness) Label Comments: vertigo and dizziness cyclosporine 1 DROP dropperette 1 drp EACH EYE BID fluticasone propionate 1 SPRAY spray,suspension 2 spray NASAL DAILY PRN PRN (Reason: Allergies) albuterol sulfate 2.5 MG/3 ML solution for nebulization 2.5 mg inhalation Q4H PRN PRN (Reason: Sob &/Or Wheezing) acetaminophen 325 MG tablet 650 mg PO Q6H PRN PRN (Reason: Pain Score 1-3/Temp > 100.7 F) 0RF benzonatate 100 MG capsule 200 mg PO TID PRN (Reason: Cough) Qty: 20 0RF verapamil 240 mg tablet extended release 240 mg PO DAILY Qty: 90 3RF pantoprazole 40 mg tablet,delayed release (DR/EC) See Rx Instructions .ROUTE .COMPLEX Qty: 90 0RF Dose Instruction: TAKE 1 TABLET EVERY DAY Rx Instructions: TAKE 1 TABLET EVERY DAY metoprolol tartrate 25 mg tablet 12.5 mg PO BID Qty: 90 3RF scopolamine base 1 mg over 3 days patch 3 day 1 patch transdermal Q3D PRN (Reason: nausea and vomiting) Qty: 4 2RF Primary Care Provider: Valencia Rivera Referrals: Valencia Rivera MD [Primary Care Provider] - 1 Week if not improving Disposition Disposition: Home, Self Care
[2022-01-24 15:07] VITALS: BP 143/73; PULSE 67; RESP 16; O2SAT 97
== END 2022-01-24 15:09 | disposition home or self-care (01) ==
PROVIDERS: Emergency Provider Emergency Medicine; PCP Internal Medicine; Visit Provider Emergency Medicine
DX: S80.01XA Contusion of right knee, initial encounter (principal); I48.0 Paroxysmal atrial fibrillation; S80.02XA Contusion of left knee, initial encounter; I10 Essential (primary) hypertension; E78.00 Pure hypercholesterolemia, unspecified; K21.9 Gastro-esophageal reflux disease without esophagitis; J45.909 Unspecified asthma, uncomplicated; Z86.73 Personal history of transient ischemic attack (TIA), and cerebral infarction without residual deficits; Z79.899 Other long term (current) drug therapy; Z79.01 Long term (current) use of anticoagulants; W19.XXXA Unspecified fall, initial encounter
CPT/HCPCS: 73564; 99282

== ENCOUNTER → 2022-03-13 | Outpatient (CLI) | payer MEDICARE, SELFPAY ==
[2022-03-13] VITALS (9 sets, daily range): BP systolic 136–196; BP diastolic 61–105; PULSE 57–68; RESP 15–18; TEMP 36.6; O2SAT 92–97; BMI 31.9
--- NOTE | 2022-03-13 | LIV_PTH ---
PATIENT: ROMAIN LOMBARDO LOC: CT U#:[id number] AGE/SX: 72/F ROOM: RE03/13/[address]: Dr. Nicola Cowan DO : 1950 BED: DIS: 03/13/2022 SPEC #: [id number] RECD: 03/13/22 09:10 STATUS: CORY REMoe #: [id number] WOLFGANG: 03/13/22 00:[address]: Nicola Cowan DEPT: SURGICAL PATHOLOGY RECD BY: Marito Fu ENTERED: 03/13/22 11:29 SP TYPE: LIVER RES OTHR DR: Dr. Valencia Rivera MD Tissues: Liver, NOS Procedures: PAS with Diastase (control) Trichrome (control) Special Stain Group II PAS Stain (control) Surgery Specimen Level V Retic (control) Iron Stain (control) HEADER OPERATION: CT-guided liver biopsy PRE-OP DIAGNOSIS: Liver disease TISSUE SUBMITTED: Liver 18-gauge x3 MICROSCOPIC DIAGNOSIS Liver, CT-guided core biopsy: Minimal reactive hepatocyte change. No evidence of inflammation. No evidence of cirrhosis. No evidence of fatty change. See microscopic description and comment. AM:chanda 03/14/2022 COMMENT Clinical correlation is suggested. Case has been reviewed in consultation with Dr. Hoffman who concurs with the above diagnosis. FIDELIA:RAFAEL MICROSCOPIC DESCRIPTION Slides are reviewed. Trichrome stain does not reveal fibrosis. PAS and PASD stains do not reveal accumulation of abnormal proteins. Iron maine does not reveal intraparenchymal deposition of iron. Reticulin stain reveals a normal hepatic architecture. All matched controls are appropriate. GROSS DESCRIPTION Received in fixative is one container labeled with the patient's name and designated liver. The specimen consists of three elongated fragments of abreu soft tissue each measuring 1.5 cm in length and 0.1 cm in diameter. The specimen is totally submitted in one cassette. / SJ:chanda 03/13/2022 TC:5 CPT: 94254, 05182 x5
[2022-03-13 07:49] LABS: Platelet Count 311 K/mm3 (150-450)
--- NOTE | 2022-03-13 07:51 | CT_ITS ---
PROCEDURE: CT DIRECTED CORE LIVER BIOPSY INDICATION: Female, 72 years old. ?Cirrhosis PHYSICIAN: Dr. JARED Salcedo CONSENT: Written informed consent was obtained having explained the risks, benefits and alternatives in detail with the patient who accepted the risks and agreed to proceed. Laboratory review and clinical assessment was performed. CONSCIOUS SEDATION PROTOCOL: The Drugs used were: 2 mg Versed, IV., and 50 mcg Fentanyl, IV. The sedation time was: 15 minutes. Conscious sedation was started at 8:48 AM and terminated at 9:03 AM. The conscious sedation protocol was independently monitored. RADIATION DOSAGE (If Supplied By Facility): CTDIvol = ( 22 ) mGy, DLP = ( 668.53 ) mGycm Individualized dose optimization techniques were used for this CT. TECHNIQUE: Using CT image guidance with image documentation, a suitable location in the right lobe of the liver was identified. Using an anterior approach, puncture of the liver was uneventful with an 18-gauge core needle system. 3, 18-gauge core samples were obtained, and submitted in formalin to the pathologist for further assessment. Followup CT scan revealed no distinct sequelae. CT/Biopsy/Inj or Needle Placement IMPRESSION: 1. CT directed core needle biopsy of the liver, using CT image guidance with image documentation as described. 2. Conscious Sedation protocol utilized with independent monitoring. Electronically Signed: Magdiel Cheung MD at 9:29 EST ,
[2022-03-13] MEDS: 0.9% Saline Lock 10 ML Syringe IV (08:30)
[2022-03-13 08:39] LABS: Prothrombin Time (Protime)PT. 13.3 SECONDS (11.7-14.9)
[2022-03-13 08:40] LABS: Partial Thromboplast Time 26.5 Seconds (24.1-36.2)
[2022-03-13] MEDS: fentaNYL 100 MCG/2 ML Ampul IV (08:48)
[2022-03-13] MEDS: Midazolam 2 MG/2 ML Syringe IV (08:48)
[2022-03-13] MEDS: Lidocaine 2% (20 ml mdv) 20 ML Vial INFILT (08:52)
== END | disposition home or self-care (01) ==
PROVIDERS: PCP Internal Medicine; Referring Provider Internal Medicine Gastroenterology; Visit Provider Internal Medicine Gastroenterology
DX: K76.9 Liver disease, unspecified (principal)
CPT/HCPCS: 47000; 36415; 77012; 85049; 85610; 85730; 88307; 88313; 99156; J7050; A4216

== ENCOUNTER → 2022-08-12 | Outpatient (CLI) | payer MEDICARE, SELFPAY ==
--- NOTE | 2022-08-12 09:15 | MRI_ITS ---
INDICATION: LEFT posterior tibial tendon tear EXAMINATION: MRI - LEFT MR Ankle W/O Contrast TECHNIQUE: Multiplanar and multisequence MR images of the ankle. IV Contrast Dosage and Agent: None. COMPARISON: None. FINDINGS: BONE: Talar dome intact. Moderate bone contusion midpole of the inferior talus subjacent to the anterior process of the calcaneus. No osteochondral lesion. Mild plantar calcaneal spurring. JOINT: Osteoarthritis with osteophytic spurring and subchondral edema dorsal aspect of the articulation of the medial cuneiform and first metatarsal. LIGAMENTS: The syndesmotic ligaments, lateral collateral ligaments, and medial collateral ligaments are intact. TENDONS: The distal tibialis posterior demonstrates thickening and intermediate signal intensity on T1-weighted imaging. There is a heterotopic ossification lateral to the distal tibialis posterior. This tendon demonstrates increased signal intensity extending to its insertion on fat saturation imaging consistent with moderate partial tear of the tibialis posterior. There is mild tenosynovitis of the distal flexor digitorum and flexor hallucis tendons. There is a small partial tear of the distal anterior Achilles. MUSCLES: Normal bulk and signal. MISCELLANEOUS: Mild proximal plantar fasciitis. Normal fat in the sinus tarsi. OTHER SOFT TISSUES: Unremarkable. MRI/Lower Ext Joint Only (Routine) IMPRESSION: Moderate partial tear of the distal tibialis posterior. Tenosynovitis of the distal flexor digitorum and flexor hallucis tendons. Bone contusion midpole of the talus inferiorly. Small partial tear of the distal anterior talus. Mild proximal plantar fasciitis with underlying mild plantar calcaneal spurring. Moderate osteoarthritis articulation of the medial cuneiform with the base of the first metatarsal. Electronically Signed: Guido Yang MD, NORY at 16:34 EDT ,
== END | disposition home or self-care (01) ==
LOC: MRI 08:44
PROVIDERS: PCP Internal Medicine; Referring Provider Podiatrist; Visit Provider Podiatrist
DX: S86.112A Strain of other muscle(s) and tendon(s) of posterior muscle group at lower leg level, left leg, initial encounter (principal); X58.XXXA Exposure to other specified factors, initial encounter; M19.072 Primary osteoarthritis, left ankle and foot
CPT/HCPCS: 73721

== ENCOUNTER → 2022-08-15 | Outpatient (CLI) | payer MEDICARE, SELFPAY ==
[2022-08-17 14:09] LABS: Pancreatic Elastase, Fecal > 500 (>200)
[2022-08-20 21:07] LABS: Calprotectin, Stool 127 ug/g (0-120)
== END | disposition home or self-care (01) ==
PROVIDERS: PCP Internal Medicine; Referring Provider Internal Medicine Gastroenterology; Visit Provider Internal Medicine Gastroenterology
DX: K58.9 Irritable bowel syndrome, unspecified (principal); R19.7 Diarrhea, unspecified
CPT/HCPCS: 82274; 82653; 83630; 83993; 87177; 87209; 87329

== ENCOUNTER → 2022-08-22 | Outpatient (CLI) | payer MEDICARE, SELFPAY ==
--- NOTE | 2022-08-23 17:30 | STRESSREP ---
Stress Test Report Pharmacologic myocardial perfusion stress test. 72-year-old lady with a history of chest pain Resting EKG demonstrates sinus rhythm with a rate of 73 bpm. Resting blood pressure is 131/62 mmHg. 0.4 mg of regadenoson was infused per usual protocol followed by rapid intravenous saline flush injection. Continuous EKG monitoring was performed. The maximum heart rate was 82 bpm which was 55% of max impacted heart rate the maximum workload was 1 metabolic equivalent. At rest there were no ST or T wave changes noted to suggest ischemia and at peak infusion nonspecific ST changes were noted which did not meet the criteria for ischemia. No clinical angina is noted. The final blood pressure was 131/62 mmHg. Myocardial perfusion protocol. 10.0 mCi of technetium 99m sestamibi was injected at rest. 0.4 mg of regadenoson was infused per usual protocol. At peak infusion 31.0 mCi of technetium 99m sestamibi was injected stress images were obtained stress and rest images were reconstructed and compared in the short axis vertical long and horizontal long axis. Gated images were also obtained. Perfusion SPECT analysis: Review of the stress images demonstrate normal uptake of tracer noted in all areas of the myocardium. The resting images similar demonstrated normal uptake of tracer noted in all areas of the myocardium. No areas of reversibility are noted to suggest ischemia and no previous infarct is noted. Gated SPECT analysis: The gated ejection fraction is 82%. Conclusion: Normal pharmacologic myocardial perfusion stress test. Preserved ejection fraction.
== END | disposition home or self-care (01) ==
LOC: CVS 06:55
PROVIDERS: PCP Internal Medicine; Referring Provider Internal Medicine Cardiovascular Disease; Visit Provider Internal Medicine Cardiovascular Disease
DX: I48.0 Paroxysmal atrial fibrillation (principal); R06.02 Shortness of breath
CPT/HCPCS: 78452; 93017; A9500; A4216; J2785

== ENCOUNTER 2022-11-04 19:04 | Emergency (ER) | payer MEDICARE, SELFPAY ==
[2022-11-04 19:04] VITALS: BP 191/72; PULSE 74; RESP 16; TEMP 36.6; O2SAT 99; BMI 33.3
--- NOTE | 2022-11-04 19:31 | EX.ED.UPPERE ---
HPI History of Present Illness Chief Complaint: Upper Extremity Injury Informant: patient Narrative Narrative: 72-year-old female states that she slipped on some water in her kitchen and struck the right wrist on a door. She notes pain and swelling on the right wrist particularly medially over the ulnar styloid region. Painful range of motion. She denies any other injuries. [facility] Medical History Acute lower gastrointestinal bleeding Ambulates with cane Asthma Atrial fibrillation Back pain BMI greater than 30 Colitis Community acquired pneumonia CVA (cerebral vascular accident) Diarrhea Essential (primary) hypertension GERD (gastroesophageal reflux disease) History of cataract History of Clostridium difficile infection History of hiatal hernia History of stress test HLD (hyperlipidemia) Migraine Non-smoker On amiodarone therapy Osteoarth NOS-up/arm Osteoarthritis Osteoporosis Paroxysmal atrial fibrillation Post-menopausal Secondary pulmonary arterial hypertension Suspected 2019 novel coronavirus infection (05/19/19) TIA (transient ischemic attack) Traumatic hematoma of abdominal wall 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 Wears partial dentures Home Medications epinephrine 0.3 mg/0.3 mL injection, auto-injector 0.3 mg IM X1 ALLERGIC REACTIONS 05/04/13 [History Last Taken Unknown] loratadine 10 mg tablet 10 mg PO DAILY ALLERGIES 05/04/13 [History Last Taken 09/15/21] albuterol sulfate 90 mcg/actuation aerosol inhaler 2 puff IH Q6H PRN PRN Sob &/Or Wheezing 12/26/15 [History Last Taken 09/09/19] cyclosporine 0.05 % eye drops in a dropperette 1 drp EACH EYE BID ALLERGIES 03/28/16 [History Last Taken 09/15/21] meclizine 25 mg tablet 25 mg PO Q6H PRN Dizziness 03/28/16 [History Last Taken 09/12/19] fluticasone propionate 50 mcg/actuation nasal spray,suspension 2 spray NASAL DAILY PRN PRN Allergies 07/02/18 [History Last Taken 09/15/21] albuterol sulfate 2.5 mg/3 mL (0.083 %) solution for nebulization 2.5 mg inhalation Q4H PRN PRN Sob &/Or Wheezing 12/04/18 [History Last Taken 12/01/18] acetaminophen 325 mg tablet 650 mg (2 x 325 mg) PO Q6H PRN PRN Pain Score 1-3/Temp > 100.7 F 02/12/19 [Rx Last Taken 09/14/19] benzonatate 100 mg capsule 200 mg (2 x 100 mg) PO TID PRN Cough #20 caps 04/26/19 [Rx Last Taken Unknown] verapamil 240 mg tablet,extended release 240 mg PO DAILY BP #90 tabs 12/30/19 [Rx Last Taken 11/24/21] atorvastatin 40 mg tablet 40 mg PO DAILY 11/18/21 [History Last Taken Unknown] metoprolol tartrate 25 mg tablet 12.5 mg (1/2 x 25 mg) PO BID afib, BP #90 tabs 12/29/21 [Rx Last Taken Unknown] scopolamine base 1 mg over 3 days transdermal patch 1 patch transdermal Q3D PRN nausea and vomiting #4 ea 01/13/22 [Rx Last Taken Unknown] dicyclomine 10 mg capsule 10 mg PO BID PRN abdominal discomfort #30 caps 02/02/22 [Rx Last Taken Unknown] pantoprazole 40 mg tablet,delayed release See Rx Instructions .Route .COMPLEX #90 tabs 06/12/22 [Rx Last Taken Unknown] apixaban 5 mg tablet (Eliquis) 5 mg PO BID #180 tabs 09/15/22 [Rx Last Taken Unknown] colestipol 1 gram tablet 1 g PO BID 30 days #60 tabs 10/25/22 [Rx Last Taken Unknown] Allergy/AdvReac Type Severity Reaction Status Date / Time adhesive tape Allergy Rash Verified 11/04/22 19:06 pepper (genus Capsicum) Allergy Hives Verified 11/04/22 19:06 propoxyphene HCl Allergy Rash Verified 11/04/22 19:06 [From Darvon] sulfamethoxazole Allergy Shortness Verified 11/04/22 19:06 [From Bactrim] of breath trimethoprim [From Bactrim] Allergy Shortness Verified 11/04/22 19:06 of breath venom-honey bee Allergy Anaphylaxis Verified 11/04/22 19:06 [bee venom (honey bee)] venom-wasp [wasp venom] Allergy Anaphylaxis Verified 11/04/22 19:06 prednisone AdvReac Diarrhea Verified 11/04/22 19:06 Family History Father CAD (coronary artery disease) Brother Heart disease Surgical History History of cholecystectomy History of colonoscopy (11/21/21) history of mastoid tumor resection History of total hysterectomy Social History Smoking Status: Never smoker alcohol intake: current alcohol intake frequency: holidays/special occasions only substance use type: does not use caffeine: Yes Type: tea Number of servings: 2 ROS ROS ED Constitutional Constitutional ED: Denies chills, fever(s) or weight loss Eyes Eyes: Denies change in vision or diplopia ENT ENT ED: Denies ear pain, rhinorrhea or sore throat Cardiovascular Cardiovascular: Denies chest pain, orthopnea, palpitations or racing heartbeat Respiratory/Chest Respiratory/Chest: Denies cough, dyspnea or orthopnea Gastrointestinal Gastrointestinal: Denies abdominal pain, diarrhea, nausea or vomiting Genitourinary Genitourinary ED: Denies dysuria, hematuria or urinary frequency Musculoskeletal Musculoskeletal: Reports other Details: See history of present illness ; Denies arthralgias or myalgias Integumentary Denies abscess or rash Neurologic Neurologic: Denies headache(s) or weakness Psychiatric Psychiatric: Denies anxiety, depression, suicidal ideation or suicidal thoughts Endocrine Endocrinology: Denies polydipsia, polyphagia or polyuria Allergic/Immunologic Allergic/Immunologic ED: Denies mouth swelling, tongue swelling or urticaria EXAM Physical Exam Const Vital Signs: 11/04/22 19:04 Temperature 97.8 F Temperature Source Temporal Pulse Rate 74 Respiratory Rate 16 Blood Pressure 191/72 H Blood Pressure Mean 111 Pulse Ox 99 Oxygen Delivery Method Room Air Positive well nourished and well developed General Appearance ED: well developed HEENT Reports normocephalic, head/scalp atraumatic and moist mucous membranes Eyes PERRL and EOMs intact bilaterally Neck no lymphadenopathy, supple and no JVD Resp normal respiratory effort and clear to auscultation bilaterally Cardio regular rate, regular rhythm and no murmurs GI normal to inspection, nondistended, normoactive bowel sounds and non-tender Palpation: soft Back/Spine no CVA tenderness and normal ROM Extremity Extremity Narrative: Tenderness and mild swelling located over the medial aspect of the right wrist. There is no significant deformity. Neurovascular intact. The fingers hand and forearm otherwise appear uninjured. The elbow is normal in nature. General Extremety ED: Negative for edema General Extremity: Negative for edema Neuro oriented x3 and CN's II-XII intact bilaterally Sensorium / Orientation: alert Motor Exam: strength 5/5 throughout Psych mental status grossly normal Mood & Affect: Negative for depressed or tearful Skin no rashes or lesions noted and no wounds MDM MDM MDM Narrative Medical decision making narrative: My potation of the wrist x-rays is no acute fracture. Radiology concurs. Patient received ice. She will have the wrist placed in an Paul wrap. Ibuprofen or Tylenol for pain. Follow-up with primary care 10 to 14 days if not improved. Discharge Plan Triage Chief Complaint: Upper Extremity Injury ED Provider: Ludwin Stanley Dx/Rx/DC Orders Clinical Impression: Contusion of left wrist Instructions: Bruises (Contusions) Prescriptions: No Action atorvastatin 40 mg tablet 40 mg PO DAILY epinephrine 0.3 MG syringe 0.3 mg IM X1 loratadine 10 MG tablet 10 mg PO DAILY albuterol sulfate 18 GM HFA aerosol inhaler 2 puff IH Q6H PRN PRN (Reason: Sob &/Or Wheezing) Patient Comments: shortness of breath meclizine 25 MG tablet 25 mg PO Q6H PRN (Reason: Dizziness) Patient Comments: vertigo and dizziness cyclosporine 1 DROP dropperette 1 drp EACH EYE BID fluticasone propionate 1 SPRAY spray,suspension 2 spray NASAL DAILY PRN PRN (Reason: Allergies) albuterol sulfate 2.5 MG/3 ML solution for nebulization 2.5 mg inhalation Q4H PRN PRN (Reason: Sob &/Or Wheezing) acetaminophen 325 MG tablet 650 mg PO Q6H PRN PRN (Reason: Pain Score 1-3/Temp > 100.7 F) 0RF benzonatate 100 MG capsule 200 mg PO TID PRN (Reason: Cough) Qty: 20 0RF verapamil 240 mg tablet extended release 240 mg PO DAILY Qty: 90 3RF metoprolol tartrate 25 mg tablet 12.5 mg PO BID Qty: 90 3RF scopolamine base 1 mg over 3 days patch 3 day 1 patch transdermal Q3D PRN (Reason: nausea and vomiting) Qty: 4 2RF dicyclomine 10 mg capsule 10 mg PO BID PRN (Reason: abdominal discomfort) Qty: 30 1RF pantoprazole 40 mg tablet,delayed release (DR/EC) See Rx Instructions .ROUTE .COMPLEX Qty: 90 0RF Dose Instruction: TAKE 1 TABLET EVERY DAY Rx Instructions: TAKE 1 TABLET EVERY DAY Eliquis 5 mg tablet 5 mg PO BID Qty: 180 3RF colestipol 1 gram tablet 1 g PO BID 30 Days Qty: 60 2RF Primary Care Provider: Valencia Rivera Referrals: Valencia Rivera MD [Primary Care Provider] - 10-14 Days if not better Disposition Disposition: Home, Self Care
--- NOTE | 2022-11-04 20:03 | RAD_ITS ---
STUDY: X-RAY - RIGHT WRIST REASON FOR EXAM: Female, 72 years old. trauma TECHNIQUE: 3 view(s) of the wrist were obtained. COMPARISON: None. FINDINGS: There is demineralization of the radius and ulna. There is degenerative arthrosis of the radiocarpal articulation. Normal distal radioulnar articulation. Normal carpal bones. There is degenerative arthrosis of the carpal articulations. There is degenerative arthrosis of the carpometacarpal articulation of the thumb. Normal second through fifth carpometacarpal articulations. Normal visualized metacarpal bones. The soft tissue structures are unremarkable. RAD/Wrist min 3 Views IMPRESSION: No fracture or malalignment. Degenerative changes. Electronically Signed: Maldonado Rivas MD ([place]) at 20:36 EDT Reading Location ID and State: [facility] / [place] , Service support ,
== END 2022-11-04 21:02 | disposition home or self-care (01) ==
PROVIDERS: Emergency Provider Emergency Medicine; PCP Internal Medicine; Visit Provider Emergency Medicine
DX: S60.212A Contusion of left wrist, initial encounter (principal); I27.21 Secondary pulmonary arterial hypertension; I48.0 Paroxysmal atrial fibrillation; W18.49XA Other slipping, tripping and stumbling without falling, initial encounter; Y92.000 Kitchen of unspecified non-institutional (private) residence as the place of occurrence of the external cause; I10 Essential (primary) hypertension; E78.5 Hyperlipidemia, unspecified; Z79.01 Long term (current) use of anticoagulants; Z79.899 Other long term (current) drug therapy; Z86.73 Personal history of transient ischemic attack (TIA), and cerebral infarction without residual deficits
CPT/HCPCS: 73110; 99282

== ENCOUNTER → 2022-11-29 | Outpatient (CLI) | payer MEDICARE, SELFPAY | END | disposition home or self-care (01) | PROVIDERS: PCP Internal Medicine; Visit Provider Ophthalmology | DX: H04.301 Unspecified dacryocystitis of right lacrimal passage (principal); H04.551 Acquired stenosis of right nasolacrimal duct | CPT/HCPCS: 87070; 87075; 87077; 87205 ==

== ENCOUNTER 2023-02-17 10:53 | Inpatient (IN) | payer MEDICARE, MEDICAID, SELFPAY ==
[2023-02-17] VITALS (30 sets, daily range): BP systolic 110–185; BP diastolic 51–122; PULSE 76–148; RESP 14–30; TEMP 36.3–36.7; O2SAT 90–98; BMI 32.3; BMI 32.8
--- NOTE | 2023-02-17 11:09 | EX.ED.DYSGE1 ---
HPI <JAIMIE Fu - Last Filed: 02/17/23 13:18> History of Present Illness Chief Complaint: Shortness of Breath Narrative Narrative: 72-year-old female with past medical history of HTN, HLD, A-fib, asthma presents with a week and a half of dry cough and shortness of breath. About a week ago she went to urgent care and was diagnosed with bronchitis and prescribed 5 days of prednisone but did not improve. Last night she developed midsternal chest pain that is constant but worse with coughing. No radiation. She reports fevers at night up to 101 F. She has no GI symptoms. She has used her inhalers and nebulizer this morning with minimal improvement. She does not smoke or wear home oxygen. She is on Eliquis for A fib. [facility] <JAIMIE Fu - Last Filed: 02/17/23 13:18> [facility] Medical History Acute lower gastrointestinal bleeding Ambulates with cane Asthma Atrial fibrillation Back pain BMI greater than 30 Colitis Community acquired pneumonia CVA (cerebral vascular accident) Diarrhea Essential (primary) hypertension GERD (gastroesophageal reflux disease) History of cataract History of Clostridium difficile infection History of hiatal hernia History of stress test HLD (hyperlipidemia) Migraine Non-smoker On amiodarone therapy Osteoarth NOS-up/arm Osteoarthritis Osteoporosis Paroxysmal atrial fibrillation Post-menopausal Secondary pulmonary arterial hypertension Suspected 2019 novel coronavirus infection (05/19/19) TIA (transient ischemic attack) Traumatic hematoma of abdominal wall 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 Wears partial dentures Home Medications epinephrine 0.3 mg/0.3 mL injection, auto-injector 0.3 mg IM X1 ALLERGIC REACTIONS 05/04/13 [History Last Taken Unknown] loratadine 10 mg tablet 10 mg PO DAILY ALLERGIES 05/04/13 [History Last Taken 09/15/21] albuterol sulfate 90 mcg/actuation aerosol inhaler 2 puff IH Q6H PRN PRN Sob &/Or Wheezing 12/26/15 [History Last Taken 09/09/19] cyclosporine 0.05 % eye drops in a dropperette 1 drp EACH EYE BID ALLERGIES 03/28/16 [History Last Taken 09/15/21] meclizine 25 mg tablet 25 mg PO Q6H PRN Dizziness 03/28/16 [History Last Taken 09/12/19] fluticasone propionate 50 mcg/actuation nasal spray,suspension 2 spray NASAL DAILY PRN PRN Allergies 07/02/18 [History Last Taken 09/15/21] albuterol sulfate 2.5 mg/3 mL (0.083 %) solution for nebulization 2.5 mg inhalation Q4H PRN PRN Sob &/Or Wheezing 12/04/18 [History Last Taken 12/01/18] acetaminophen 325 mg tablet 650 mg (2 x 325 mg) PO Q6H PRN PRN Pain Score 1-3/Temp > 100.7 F 02/12/19 [Rx Last Taken 09/14/19] benzonatate 100 mg capsule 200 mg (2 x 100 mg) PO TID PRN Cough #20 caps 04/26/19 [Rx Last Taken Unknown] verapamil 240 mg tablet,extended release 240 mg PO DAILY BP #90 tabs 12/30/19 [Rx Last Taken 11/24/21] atorvastatin 40 mg tablet 40 mg PO DAILY 11/18/21 [History Last Taken Unknown] metoprolol tartrate 25 mg tablet 12.5 mg (1/2 x 25 mg) PO BID afib, BP #90 tabs 12/29/21 [Rx Last Taken Unknown] scopolamine base 1 mg over 3 days transdermal patch 1 patch transdermal Q3D PRN nausea and vomiting #4 ea 01/13/22 [Rx Last Taken Unknown] dicyclomine 10 mg capsule 10 mg PO BID PRN abdominal discomfort #30 caps 02/02/22 [Rx Last Taken Unknown] pantoprazole 40 mg tablet,delayed release See Rx Instructions .Route .COMPLEX #90 tabs 06/12/22 [Rx Last Taken Unknown] apixaban 5 mg tablet (Eliquis) 5 mg PO BID #180 tabs 09/15/22 [Rx Last Taken Unknown] colestipol 1 gram tablet 1 g PO BID 30 days #60 tabs 10/25/22 [Rx Last Taken Unknown] Allergy/AdvReac Type Severity Reaction Status Date / Time adhesive tape Allergy Rash Verified 02/17/23 10:54 pepper (genus Capsicum) Allergy Hives Verified 02/17/23 10:54 propoxyphene HCl Allergy Rash Verified 02/17/23 10:54 [From Darvon] sulfamethoxazole Allergy Shortness Verified 02/17/23 10:54 [From Bactrim] of breath trimethoprim [From Bactrim] Allergy Shortness Verified 02/17/23 10:54 of breath venom-honey bee Allergy Anaphylaxis Verified 02/17/23 10:54 [bee venom (honey bee)] venom-wasp [wasp venom] Allergy Anaphylaxis Verified 02/17/23 10:54 Family History Father CAD (coronary artery disease) Brother Heart disease Surgical History History of cholecystectomy History of colonoscopy (11/21/21) history of mastoid tumor resection History of total hysterectomy Social History Smoking Status: Never smoker alcohol intake: current alcohol intake frequency: holidays/special occasions only substance use type: does not use caffeine: Yes Type: tea Number of servings: 2 ROS <JAIMIE Fu - Last Filed: 02/17/23 13:18> ROS ED ROS Narrative Constitutional: Positive for fever, chills, malaise. CVS: Positive for chest pain. Respiratory: Positive for shortness of breath, cough. GI: Negative for abdominal pain, nausea, vomiting. EXAM <JAIMIE Fu - Last Filed: 02/17/23 13:18> Physical Exam Narrative Exam Narrative: CONST: Patient sitting in no acute distress. EYES: Normal inspection. NECK: Normal inspection. RESP: Cough during exam, expiratory wheezing. CVS: R tachycardic and irregularly irregular rhythm, no murmur, no gallop. SKIN: Color normal, no rash, warm, dry, intact. EXTREMITIES: Normal appearance, no pedal edema. NEURO: Oriented x4. PSYCH: Normal affect. Const Vital Signs: 02/17/23 10:54 02/17/23 11:19 02/17/23 10:53 Temperature 97.3 F L Temperature Source Temporal Pulse Rate 148 H 138 H Respiratory Rate 14 30 H Respiratory Effort Short of Breath Accessory Muscle Use Respiratory Depth Shallow Respiratory Pattern Tachypnea Tachypnea Blood Pressure 115/78 Blood Pressure Mean 90 Pulse Ox 98 Oxygen Delivery Method Room Air Room Air 02/17/23 11:07 02/17/23 10:56 02/17/23 11:56 Temperature Temperature Source Pulse Rate 128 H 127 H Respiratory Rate 25 H 26 H Respiratory Effort Respiratory Depth Respiratory Pattern Blood Pressure 135/122 H 119/66 Blood Pressure Mean 126 83 Pulse Ox 96 94 Oxygen Delivery Method Room Air Room Air Room Air 02/17/23 12:00 02/17/23 12:59 Temperature Temperature Source Pulse Rate 121 H Respiratory Rate 25 H 23 H Respiratory Effort Respiratory Depth Respiratory Pattern Blood Pressure 142/73 H Blood Pressure Mean 96 Pulse Ox 90 Oxygen Delivery Method Room Air <Dr. Stevan Jean MD - Last Filed: 02/17/23 12:20> Physical Exam Const Vital Signs: 02/17/23 10:54 02/17/23 11:19 02/17/23 10:53 Temperature 97.3 F L Temperature Source Temporal Pulse Rate 148 H 138 H Respiratory Rate 14 30 H Respiratory Effort Short of Breath Accessory Muscle Use Respiratory Depth Shallow Respiratory Pattern Tachypnea Tachypnea Blood Pressure 115/78 Blood Pressure Mean 90 Pulse Ox 98 Oxygen Delivery Method Room Air Room Air 02/17/23 11:07 02/17/23 10:56 02/17/23 11:56 Temperature Temperature Source Pulse Rate 128 H 127 H Respiratory Rate 25 H 26 H Respiratory Effort Respiratory Depth Respiratory Pattern Blood Pressure 135/122 H 119/66 Blood Pressure Mean 126 83 Pulse Ox 96 94 Oxygen Delivery Method Room Air Room Air Room Air 02/17/23 12:00 02/17/23 12:59 Temperature Temperature Source Pulse Rate 121 H Respiratory Rate 25 H 23 H Respiratory Effort Respiratory Depth Respiratory Pattern Blood Pressure 142/73 H Blood Pressure Mean 96 Pulse Ox 90 Oxygen Delivery Method Room Air MDM <JAIMIE Fu - Last Filed: 02/17/23 13:18> [facility] MDM Narrative Medical decision making narrative: History gathered from: Patient and family members Patient has had 1.5 weeks of dry cough, shortness of breath, and recently developed chest pain. She has a history of asthma. She appears well and nontoxic. She is in A-fib RVR in the 140s which is chronic and she is anticoagulated. The rest of her vital signs are normal. She has a dry cough and diffuse wheezing on exam. Differential includes viral URI, pneumonia, A-fib as a cause of her symptoms. White count is 12.3. Potassium is low at 2.6 with normal magnesium. Creatinine 1.06. Glucose is 174 with normal CO2 and anion gap. She was treated with IV fluids and p.o. and IV potassium. She was also given aerosols and Solu-Medrol for her asthma exacerbation. COVID/flu is negative and CXR shows no acute process. For A-fib RVR she was given IV Cardizem bolus 10 mg and then an additional 20 mg bolus and is still around 115. She still is tachypneic and subjectively short of breath although not hypoxic. I ordered a second aerosol treatment and started a Cardizem drip at 5 mg an hour. Since her symptoms and A-fib RVR cannot be well-controlled she will require admission. Case was discussed with the hospitalist for admission. External records reviewed: Stress test 08/23/2022 Normal pharmacologic myocardial perfusion stress test, EF 82% I have personally performed a face to face assessment of the patient and have reviewed the TRACEY Note. I performed a substantive portion of the visit including all aspects of the following. My heredia findings include: History is 72-year-old female URI symptoms for the last several days. Has been on steroids. Has continued wheezing and shortness of breath. She also has a known history of A-fib and has a rapid rate. She denies vomiting or diarrhea has not been on any antibiotics. No recent admission. Exam is [72-year-old female vital signs stable except A-fib RVR in the 140s. H EENT exam unremarkable. Neck nontender. Lungs expiratory wheezing. Heart tachycardic no appreciable murmur rate in the 140 range. Abdomen soft nontender. Moving all 4 extremities. Calves are nontender without edema.] Medical Decision Making [patient be treated for A-fib RVR with IV Cardizem. Cardiac workup. Also COVID and flu. Aerosols and IV Solu-Medrol for her wheezing.] Other additions or changes: [None] Lab Data Labs: Laboratory Results - last 24 hr 02/17/23 11:28 WBC 12.3 H RBC 5.47 H Hgb 12.8 Hct 43.1 MCV 78.8 L MCH 23.4 L MCHC 29.7 L RDW Std Deviation 42.7 RDW Coeff of Kahlil 15.1 H Plt Count 299 MPV 9.9 Immature Gran % (Auto) 0.500 Neut % (Auto) 80.7 H Lymph % (Auto) 9.6 L [place] % (Auto) 7.5 Eos % (Auto) 1.4 Baso % (Auto) 0.3 Absolute Neuts (auto) 9.9 H Absolute Lymphs (auto) 1.18 Nucleated RBC % 0 Sodium 140 Potassium 2.6 L* Chloride 106 Carbon Dioxide 29.0 Anion Gap 5 BUN 14 Creatinine 1.06 H Estim Creat Clear Calc 45.57 Est GFR (MDRD) Af Amer 66 Est GFR (MDRD) Non-Af 54 L BUN/Creatinine Ratio 13.2 Glucose 174 H Calcium 9.0 Magnesium 2.1 Troponin I High Sens 46 Radiography Diagnostic Testing: Clinical Impression(s) from Imaging Studies Chest X-Ray 02/17/23 11:32 IMPRESSION: Stable chest with no acute or active cardiopulmonary disease. Electronically Signed: Flavio Canela MD at 12:02 EST Reading Location ID and State: [address] [place] [address] , Service support , EKG Initial EKG: Attestation: I personally reviewed and interpreted this EKG as follows: Comments: A-fib RVR at 145 bpm No STEMI <Dr. Stevan Jean MD - Last Filed: 02/17/23 12:20> [facility] MDM Narrative Medical decision making narrative: History gathered from: Patient and family members Patient has had 1.5 weeks of dry cough, shortness of breath, and now developed chest pain. She has a history of asthma. She appears well and nontoxic. She is in A-fib RVR in the 140s which is chronic and she is anticoagulated. The rest of her vital signs are normal. She has a dry cough and diffuse wheezing on exam so I ordered a DuoNeb. Differential includes viral URI, pneumonia, A-fib as a cause of her symptoms. External records reviewed: Stress test 08/23/2022 Normal pharmacologic myocardial perfusion stress test, EF 82% I have personally performed a face to face assessment of the patient and have reviewed the TRACEY Note. I performed a substantive portion of the visit including all aspects of the following. My heredia findings include: History is 72-year-old female URI symptoms for the last several days. Has been on steroids. Has continued wheezing and shortness of breath. She also has a known history of A-fib and has a rapid rate. She denies vomiting or diarrhea has not been on any antibiotics. No recent admission. Exam is [72-year-old female vital signs stable except A-fib RVR in the 140s. H EENT exam unremarkable. Neck nontender. Lungs expiratory wheezing. Heart tachycardic no appreciable murmur rate in the 140 range. Abdomen soft nontender. Moving all 4 extremities. Calves are nontender without edema.] Medical Decision Making [patient be treated for A-fib RVR with IV Cardizem. Cardiac workup. Also COVID and flu. Aerosols and IV Solu-Medrol for her wheezing.] Other additions or changes: [None] History & Record Review Discussion w/independent historian: Patient and Family Additional record(s) reviewed:: Prior inpatient record, Prior outpatient record, Prior ED visit and Prior labs Lab Data Attestation: I reviewed the patient's lab results. Lab results narrative: CBC shows a white count 12.3. H&H 12.8 and 43. Platelets 299. Electrolytes show potassium of 2.6 gap of 5. Normal routine and creatinine of 1. Glucose 174. Troponin 46. Chest x-ray chronic changes. COVID and flu swabs both negative. Labs: Laboratory Results - last 24 hr 02/17/23 11:28 WBC 12.3 H RBC 5.47 H Hgb 12.8 Hct 43.1 MCV 78.8 L MCH 23.4 L MCHC 29.7 L RDW Std Deviation 42.7 RDW Coeff of Kahlil 15.1 H Plt Count 299 MPV 9.9 Immature Gran % (Auto) 0.500 Neut % (Auto) 80.7 H Lymph % (Auto) 9.6 L [place] % (Auto) 7.5 Eos % (Auto) 1.4 Baso % (Auto) 0.3 Absolute Neuts (auto) 9.9 H Absolute Lymphs (auto) 1.18 Nucleated RBC % 0 Sodium 140 Potassium 2.6 L* Chloride 106 Carbon Dioxide 29.0 Anion Gap 5 BUN 14 Creatinine 1.06 H Estim Creat Clear Calc 45.57 Est GFR (MDRD) Af Amer 66 Est GFR (MDRD) Non-Af 54 L BUN/Creatinine Ratio 13.2 Glucose 174 H Calcium 9.0 Magnesium 2.1 Troponin I High Sens 46 Radiography Chest X-Ray - ED: 1 View, Read by ED Physician, Read by Radiologist, Heart, Mediastinum, Bony Structures, No Acute Disease and Chronic Changes Diagnostic Testing: Clinical Impression(s) from Imaging Studies Chest X-Ray 02/17/23 11:32 IMPRESSION: Stable chest with no acute or active cardiopulmonary disease. Electronically Signed: Flavio Canela MD at 12:02 EST Reading Location ID and State: [address] [place] [address] , Service support , Chest x-ray, portable, single view, interpreted both by myself and the radiologist shows no acute abnormality. Normal cardiac silhouette. No pneumonia. No effusions. Rhythm Strip Rhythm Strip: A-fib Rate: 145 Ectopy: None Discharge Plan Triage Chief Complaint: Shortness of Breath ED Midlevel Provider: Silvia Spangler ED Provider: Stevan Jean Dx/Rx/DC Orders Clinical Impression: Asthma exacerbation, URI (upper respiratory infection), Atrial fibrillation with RVR, Acute hypokalemia Prescriptions: No Action atorvastatin 40 mg tablet 40 mg PO DAILY epinephrine 0.3 MG syringe 0.3 mg IM X1 loratadine 10 MG tablet 10 mg PO DAILY albuterol sulfate 18 GM HFA aerosol inhaler 2 puff IH Q6H PRN PRN (Reason: Sob &/Or Wheezing) Patient Comments: shortness of breath meclizine 25 MG tablet 25 mg PO Q6H PRN (Reason: Dizziness) Patient Comments: vertigo and dizziness cyclosporine 1 DROP dropperette 1 drp EACH EYE BID fluticasone propionate 1 SPRAY spray,suspension 2 spray NASAL DAILY PRN PRN (Reason: Allergies) albuterol sulfate 2.5 MG/3 ML solution for nebulization 2.5 mg inhalation Q4H PRN PRN (Reason: Sob &/Or Wheezing) acetaminophen 325 MG tablet 650 mg PO Q6H PRN PRN (Reason: Pain Score 1-3/Temp > 100.7 F) 0RF benzonatate 100 MG capsule 200 mg PO TID PRN (Reason: Cough) Qty: 20 0RF verapamil 240 mg tablet extended release 240 mg PO DAILY Qty: 90 3RF metoprolol tartrate 25 mg tablet 12.5 mg PO BID Qty: 90 3RF scopolamine base 1 mg over 3 days patch 3 day 1 patch transdermal Q3D PRN (Reason: nausea and vomiting) Qty: 4 2RF dicyclomine 10 mg capsule 10 mg PO BID PRN (Reason: abdominal discomfort) Qty: 30 1RF pantoprazole 40 mg tablet,delayed release (DR/EC) See Rx Instructions .ROUTE .COMPLEX Qty: 90 0RF Dose Instruction: TAKE 1 TABLET EVERY DAY Rx Instructions: TAKE 1 TABLET EVERY DAY Eliquis 5 mg tablet 5 mg PO BID Qty: 180 3RF colestipol 1 gram tablet 1 g PO BID 30 Days Qty: 60 2RF Primary Care Provider: Valencia Rivera Referrals: Valencia Rivera MD [Primary Care Provider] -
[2023-02-17] MEDS: Ipratropium/Albuterol Sulfate 3 ML AMPUL.NEB INHALATION ×3 (11:18→19:13)
[2023-02-17] MEDS: dilTIAZem 25 MG/5 ML Vial 10 MG IV BOLUS (11:22)
[2023-02-17] MEDS: 0.9% Normal Saline (1000mL) 1,000 ML 1000 ML IV (11:27)
--- NOTE | 2023-02-17 11:32 | RAD_ITS ---
STUDY: X-RAY CHEST REASON FOR EXAM: Female, 72 years old. Chest pain. TECHNIQUE: Frontal and lateral views of the chest. COMPARISON: September 17, 2019 FINDINGS: Hyperinflation unchanged. There is no demonstrated pleural abnormality. Mild cardiomegaly unchanged. Normal mediastinum and ggaandeep. Prominent central pulmonary arteries unchanged. Aortic tortuosity with calcification unchanged. Normal visualized thoracic spine. Normal visualized ribs, clavicles, and shoulders. No abnormality of the visualized soft tissue structures of the upper abdomen. RAD/Chest PA and Lateral IMPRESSION: Stable chest with no acute or active cardiopulmonary disease. Electronically Signed: Flavio Canela MD at 12:02 [facility] ,
[2023-02-17 11:36] LABS: Absolute Lymphocyte Count 1.18 X10^3/uL (0.83-4.51); Absolute Neutrophil Count 9.9 X10^3/uL (2.0-7.7); Basophil# 0.04 X10^3/uL; Basophil% 0.3 % (0-1); Eosinophil# 0.17 X10^3/uL; Eosinophils% 1.4 % (0-5); Hematocrit 43.1 % (37-47); Hemoglobin 12.8 g/dL (12.0-15.0); Lymphocyte # 1.18 X10^3/ul (0.83-4.51); Lymphocyte % 9.6 % (19-41); Mean Corp Hgb Conc 29.7 g/dL (32-36); Mean Corpuscular Hgb 23.4 pg (27.0-32.0); Mean Corpuscular Volume 78.8 fL (81-99); Mean Platelet Vol. 9.9 fl (6.2-12.0); Monocyte# 0.92 X10^3/uL; Monocyte% 7.5 % (0-10); NRBC Flagged by Analyzer 0 % (0-5); Neutrophil # 9.91 X10^3/uL (2.7-7.7); Neutrophil % 80.7 % (47-70); Platelet Count 299 K/mm3 (150-450); RBC Distribution Width CV 15.1 % (11.6-14.6); RBC Distribution Width SD 42.7 fl (35.1-43.9); Red Blood Count 5.47 M/mm3 (4.2-5.4); White Blood Count 12.3 K/mm3 (4.4-11.0)
[2023-02-17] MEDS: dilTIAZem 25 MG/5 ML Vial 20 MG IV BOLUS (11:56)
[2023-02-17 12:02] LABS: Anion Gap 5 (5-15); BUN 14 mg/dL (7-18); BUN/Creat Ratio 13.2 RATIO (10-20); Chloride 106 mmol/L (98-107); Creatinine, Serum 1.06 mg/dL (0.55-1.02); EST Glomerular Filtration Rate 54 mL/min (>60); Est Glom Filt Rate - Afr Amer 66 mL/min (>60); Estimated Creatinine Clearance 45.57 ml/min; Glucose 174 mg/dL (74-106); Potassium 2.6 mmol/L (3.5-5.1); Sodium Level 140 mmol/L (136-145); Troponin-I HS (w/2H Reflex) 46 pg/mL (3.0-54.0)
[2023-02-17] MEDS: Potassium Chloride Oral Tablet 20 MEQ 40 MEQ PO (12:09)
[2023-02-17] MEDS: MethylPREDNISolone 125 MG/2 ML Vial IV (12:09)
[2023-02-17 12:26] LABS: Magnesium 2.1 mg/dL (1.6-2.6)
[2023-02-17] MEDS: Potassium Chloride 10mEq/100mL 10 MEQ/100 ML IV.SOLN. 100 MEQ IV BOLUS (12:32)
[2023-02-17] MEDS: Diltiazem 125 MG in Dextrose 5%-Water (100mL Bag) 100 ML CONT INF (13:29)
[2023-02-17 13:33] LABS: Reflex Troponin-HS? (from REC) Y
[2023-02-17 14:01] LABS: Troponin-I HS 70 pg/mL (3.0-54.0)
[2023-02-17 15:31] LABS: Magnesium 2.1 mg/dL (1.6-2.6); Phosphorus 2.4 mg/dL (2.5-4.9)
[2023-02-17] MEDS: Metoprolol Tartrate 25 MG Tablet PO ×2 (16:26→21:58)
--- NOTE | 2023-02-17 17:04 | PCM.HP.STD ---
HPI - General General Date of Admission: 02/17/23 HPI Narrative ROMAIN LOMBARDO, is a 72 F who presents to the hospital with shortness of breath and A-fib. She does have a history of A-fib but over the last 10 days has developed a respiratory viral illness that she was seen at an urgent care for and given steroids and breathing treatments. She noticed that she got a little bit better a few days ago and then started to get worse again and had increasing coughing without any sputum production. She does have an elevated white count but is afebrile. Her last dose of steroids was on Sunday so I would expect her white count to have improved if it was simply due to steroids. In the ER she was started on a Cardizem drip and she states she did take all of her cardiac medications today. She is also noted to be hyperkalemic and was started on replacement. She is not currently hypoxic requiring any oxygen and she had a stress test in July of this year that was unremarkable. [facility] Medical History Acute lower gastrointestinal bleeding Ambulates with cane Asthma Atrial fibrillation Back pain BMI greater than 30 Colitis Community acquired pneumonia CVA (cerebral vascular accident) Diarrhea Essential (primary) hypertension GERD (gastroesophageal reflux disease) History of cataract History of Clostridium difficile infection History of hiatal hernia History of stress test HLD (hyperlipidemia) Migraine Non-smoker On amiodarone therapy Osteoarth NOS-up/arm Osteoarthritis Osteoporosis Paroxysmal atrial fibrillation Post-menopausal Secondary pulmonary arterial hypertension Suspected 2019 novel coronavirus infection (05/19/19) TIA (transient ischemic attack) Traumatic hematoma of abdominal wall 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 Wears partial dentures Home Medications epinephrine 0.3 mg/0.3 mL injection, auto-injector 0.3 mg IM X1 ALLERGIC REACTIONS 05/04/13 [History Last Taken Unknown] loratadine 10 mg tablet 10 mg PO DAILY ALLERGIES 05/04/13 [History Last Taken 09/15/21] albuterol sulfate 90 mcg/actuation aerosol inhaler 2 puff IH Q6H PRN PRN Sob &/Or Wheezing 12/26/15 [History Last Taken 09/09/19] cyclosporine 0.05 % eye drops in a dropperette 1 drp EACH EYE BID ALLERGIES 03/28/16 [History Last Taken 09/15/21] meclizine 25 mg tablet 25 mg PO Q6H PRN Dizziness 03/28/16 [History Last Taken 09/12/19] fluticasone propionate 50 mcg/actuation nasal spray,suspension 2 spray NASAL DAILY PRN PRN Allergies 07/02/18 [History Last Taken 09/15/21] albuterol sulfate 2.5 mg/3 mL (0.083 %) solution for nebulization 2.5 mg inhalation Q4H PRN PRN Sob &/Or Wheezing 12/04/18 [History Last Taken 12/01/18] acetaminophen 325 mg tablet 650 mg (2 x 325 mg) PO Q6H PRN PRN Pain Score 1-3/Temp > 100.7 F 02/12/19 [Rx Last Taken 09/14/19] benzonatate 100 mg capsule 200 mg (2 x 100 mg) PO TID PRN Cough #20 caps 04/26/19 [Rx Last Taken Unknown] verapamil 240 mg tablet,extended release 240 mg PO DAILY BP #90 tabs 12/30/19 [Rx Last Taken 11/24/21] atorvastatin 40 mg tablet 40 mg PO DAILY cholesterol 11/18/21 [History Last Taken Unknown] metoprolol tartrate 25 mg tablet 12.5 mg (1/2 x 25 mg) PO BID afib, BP #90 tabs 12/29/21 [Rx Last Taken Unknown] scopolamine base 1 mg over 3 days transdermal patch 1 patch transdermal Q3D PRN nausea and vomiting #4 ea 01/13/22 [Rx Last Taken Unknown] dicyclomine 10 mg capsule 10 mg PO BID PRN abdominal discomfort #30 caps 02/02/22 [Rx Last Taken Unknown] pantoprazole 40 mg tablet,delayed release See Rx Instructions .Route .COMPLEX stomach #90 tabs 06/12/22 [Rx Last Taken Unknown] apixaban 5 mg tablet (Eliquis) 5 mg PO BID thinner #180 tabs 09/15/22 [Rx Last Taken Unknown] colestipol 1 gram tablet 1 g PO BID med 30 days #60 tabs 10/25/22 [Rx Last Taken Unknown] Allergy/AdvReac Type Severity Reaction Status Date / Time adhesive tape Allergy Rash Verified 02/17/23 10:54 pepper (genus Capsicum) Allergy Hives Verified 02/17/23 10:54 propoxyphene HCl Allergy Rash Verified 02/17/23 10:54 [From Darvon] sulfamethoxazole Allergy Shortness Verified 02/17/23 10:54 [From Bactrim] of breath trimethoprim [From Bactrim] Allergy Shortness Verified 02/17/23 10:54 of breath venom-honey bee Allergy Anaphylaxis Verified 02/17/23 10:54 [bee venom (honey bee)] venom-wasp [wasp venom] Allergy Anaphylaxis Verified 02/17/23 10:54 Family History Father CAD (coronary artery disease) Brother Heart disease Surgical History History of cholecystectomy History of colonoscopy (11/21/21) history of mastoid tumor resection History of total hysterectomy Social History Smoking Status: Never smoker alcohol intake: current alcohol intake frequency: holidays/special occasions only substance use type: does not use caffeine: Yes Type: tea Number of servings: 2 ROS Constitutional Constitutional: Reports fatigue and fever(s); Denies chills or malaise Eyes Eyes: Denies blurry vision ENT HEENT: Denies headache(s) or nasal discharge Cardiovascular Cardiovascular: Denies chest pain, dyspnea on exertion or syncope Respiratory/Chest Respiratory/Chest: Reports cough, shortness of breath at rest and shortness of breath with exertion Gastrointestinal Gastrointestinal: Denies constipation, diarrhea, nausea or vomiting Genitourinary Genitourinary: Denies dysuria Neurologic Neurologic: Denies focal weakness, numbness or tremor(s) Psychiatric Psychiatric: Denies anxiety or depression Vital Signs Vital Signs Vital Signs: 02/17/23 10:54 02/17/23 11:19 02/17/23 10:53 Temperature 97.3 F L Temperature Source Temporal Pulse Rate 148 H 138 H Respiratory Rate 14 30 H Respiratory Effort Short of Breath Accessory Muscle Use Respiratory Depth Shallow Respiratory Pattern Tachypnea Tachypnea Blood Pressure 115/78 Blood Pressure Mean 90 Blood Pressure Source Pulse Ox 98 Oxygen Delivery Method Room Air Room Air 02/17/23 11:07 02/17/23 10:56 02/17/23 11:56 Temperature Temperature Source Pulse Rate 128 H 127 H Respiratory Rate 25 H 26 H Respiratory Effort Respiratory Depth Respiratory Pattern Blood Pressure 135/122 H 119/66 Blood Pressure Mean 126 83 Blood Pressure Source Pulse Ox 96 94 Oxygen Delivery Method Room Air Room Air Room Air 02/17/23 12:00 02/17/23 12:59 02/17/23 13:22 Temperature Temperature Source Pulse Rate 121 H 132 H Respiratory Rate 25 H 23 H 21 H Respiratory Effort Respiratory Depth Respiratory Pattern Tachypnea Blood Pressure 142/73 H Blood Pressure Mean 96 Blood Pressure Source Pulse Ox 90 Oxygen Delivery Method Room Air 02/17/23 13:29 02/17/23 14:31 02/17/23 14:57 Temperature 98.1 F Temperature Source Temporal Pulse Rate 124 H 126 H 133 H Respiratory Rate 14 17 Respiratory Effort Respiratory Depth Respiratory Pattern Blood Pressure 150/95 H 130/79 H 144/90 H Blood Pressure Mean 113 96 108 Blood Pressure Source Monitor Pulse Ox 94 94 Oxygen Delivery Method Room Air Room Air 02/17/23 15:00 02/17/23 15:15 02/17/23 15:32 Temperature Temperature Source Pulse Rate 126 H 122 H Respiratory Rate Respiratory Effort Normal Respiratory Depth Normal Respiratory Pattern Normal Blood Pressure 151/105 H 149/84 H Blood Pressure Mean 120 105 Blood Pressure Source Monitor Monitor Pulse Ox Oxygen Delivery Method Room Air 02/17/23 15:30 02/17/23 15:45 02/17/23 16:26 Temperature Temperature Source Pulse Rate 120 H 125 H 112 H Respiratory Rate Respiratory Effort Respiratory Depth Respiratory Pattern Blood Pressure 162/109 H 185/79 H 139/75 H Blood Pressure Mean 126 114 Blood Pressure Source Monitor Monitor Pulse Ox Oxygen Delivery Method 02/17/23 16:00 02/17/23 16:15 02/17/23 16:30 Temperature Temperature Source Pulse Rate 113 H 111 H 120 H Respiratory Rate 20 H Respiratory Effort Respiratory Depth Respiratory Pattern Blood Pressure 139/83 H 139/75 H 173/89 H Blood Pressure Mean 101 96 117 Blood Pressure Source Monitor Monitor Monitor Pulse Ox 93 Oxygen Delivery Method Room Air Weight Weight: 203 lb 7.787 oz Body Mass Index (BMI) 32.8 Physical Exam Narrative General: Alert, Oriented x3, Cooperative, No apparent distress HEENT: Atraumatic, PERRLA, EOMI, Normocephalic Oral: Moist Mucosa Neck: Supple, No JVD Lungs: Diminished, Normal air movement, rhonchi, wheeze, No rales Cardiovascular: Irregular rate and rhythm, Normal S1, Normal S2, No murmurs Abdomen: Soft, Non Tender, Non-Distended, No Hepato-splenomegaly Extremities: No edema, Capillary Refill Less than 3 Seconds Skin: No rashes, No breakdown Musculoskeletal: No Tenderness to Palpation of Joints or Extremities Neurological: Cranial nerves II-XII grossly intact, Motor Exam 5/5 strength throughout, Sensory exam intact to light touch and pain Psych/Mental Status: Normal Affect, Appropriate Results Lab / Micro Data 02/17/23 11:28 02/17/23 11:28 Labs: Laboratory Results - last 24 hr 02/17/23 11:28: WBC 12.3 H, RBC 5.47 H, Hgb 12.8, Hct 43.1, MCV 78.8 L, MCH 23.4 L, MCHC 29.7 L, RDW Std Deviation 42.7, RDW Coeff of Kahlil 15.1 H, Plt Count 299, MPV 9.9, Immature Gran % (Auto) 0.500, Neut % (Auto) 80.7 H, Lymph % (Auto) 9.6 L, [place] % (Auto) 7.5, Eos % (Auto) 1.4, Baso % (Auto) 0.3, Absolute Neuts (auto) 9.9 H, Absolute Lymphs (auto) 1.18, Nucleated RBC % 0, Sodium 140, Potassium 2.6 L*, Chloride 106, Carbon Dioxide 29.0, Anion Gap 5, BUN 14, Creatinine 1.06 H, Estim Creat Clear Calc 45.57, Est GFR (MDRD) Af Amer 66, Est GFR (MDRD) Non-Af 54 L, BUN/Creatinine Ratio 13.2, Glucose 174 H, Calcium 9.0, Magnesium 2.1, Troponin I High Sens 46 02/17/23 13:40: Phosphorus 2.4 L, Magnesium 2.1, Troponin I High Sens 70 H Micro: Microbiology 02/17/23 11:28 Nasal Secretion SARS-CoV-2 & FLU Antigen (Rapid) - Final Rhythm Strip Rhythm Strip: A-fib Rate: 145 Ectopy: None Imagaing Radiology Impression Chest X-Ray 02/17/23 11:32 IMPRESSION: Stable chest with no acute or active cardiopulmonary disease. Electronically Signed: Flavio Canela MD at 12:02 EST , Assessment & Plan Assessment/Plan (1) Atrial fibrillation with RVR: (2) Asthma exacerbation: (3) URI (upper respiratory infection): PLAN: Plan 1. A-fib with RVR in the setting of upper respiratory infection with possible pneumonia and asthma exacerbation/HTN/HLD ? COVID and flu were negative but no other respiratory panel was done, will obtain a respiratory panel ? Given the story of her feeling a little bit better then getting worse again we will start her on Rocephin and azithromycin however she does not have any sputum production ? Continue with DuoNebs ? We will place her on p.o. prednisone ? Continue with Cardizem drip and resume her home medications, will increase her metoprolol to 25 mg p.o. twice daily ? She did just have the stress test in July that was unremarkable ? Continue with her Eliquis ? Continue with her home Lipitor 2. GERD ? Stable ? Continue with PPI DVT: Eliquis 75 minutes was spent on direct patient care, including documentation as well as chart review and collaboration with colleagues Charges/Coding Visit Charges Inpatient E&M: 44191 Init Hosp L3
[2023-02-17] MEDS: 0.9% Normal Saline (250mL Bag) 250 ML 15 ML IV (18:16)
[2023-02-17] MEDS: Ceftriaxone 1 GM/50 ML BAG IV (18:16)
[2023-02-17] MEDS: Azithromycin 500 MG in Dextrose 5%-Water (250mL Bag) 250 ML 250 MG IV (18:50)
--- NOTE | 2023-02-17 20:25 | EKG12_ITS ---
Test Reason : RHYTHM CHANGE Blood Pressure : / mmHG Vent. Rate : 083 BPM Atrial Rate : 083 BPM P-R Int : 146 ms QRS Dur : 076 ms QT Int : 418 ms P-R-T Axes : 070 015 049 degrees QTc Int : 491 ms Normal sinus rhythm Prolonged QT Abnormal ECG When compared with ECG of 17-FEB-2023 11:15, MANUAL COMPARISON REQUIRED, DATA IS UNCONFIRMED Confirmed by MAGGIE ALLEN, KRISTIN ([id number]), senior technical editor DERECK ALBA ([id number] on 02/27/2023 10:07:14 AM Referred By: Confirmed By:KRISTIN SERRANO MD
[2023-02-17] MEDS: Benzonatate 100 MG Capsule 200 MG PO (21:58)
[2023-02-17] MEDS: dilTIAZem CD 120 MG Capsule PO (21:58)
[2023-02-17] MEDS: APIXABAN 5 MG TABLET PO (21:58)
[2023-02-18] VITALS (11 sets, daily range): BP systolic 147–158; BP diastolic 70–78; PULSE 75–95; RESP 18–24; TEMP 36.6–36.8; O2SAT 92–95; BMI 33.0
[2023-02-18] MEDS: Acetaminophen 325 MG Tablet 650 MG PO ×2 (05:06→16:55)
[2023-02-18] MEDS: Benzonatate 100 MG Capsule 200 MG PO ×2 (05:06→16:55)
[2023-02-18] MEDS: Ipratropium/Albuterol Sulfate 3 ML AMPUL.NEB INHALATION ×4 (05:24→20:18)
[2023-02-18 06:50] LABS: Absolute Lymphocyte Count 0.81 X10^3/uL (0.83-4.51); Absolute Neutrophil Count 8.5 X10^3/uL (2.0-7.7); Basophil# 0.02 X10^3/uL; Basophil% 0.2 % (0-1); Hematocrit 38.5 % (37-47); Hemoglobin 11.4 g/dL (12.0-15.0); Lymphocyte # 0.81 X10^3/ul (0.83-4.51); Lymphocyte % 8.3 % (19-41); Mean Corp Hgb Conc 29.6 g/dL (32-36); Mean Corpuscular Hgb 23.7 pg (27.0-32.0); Mean Corpuscular Volume 79.9 fL (81-99); Mean Platelet Vol. 10.6 fl (6.2-12.0); Monocyte% 3.1 % (0-10); NRBC Flagged by Analyzer 0 % (0-5); Neutrophil # 8.51 X10^3/uL (2.7-7.7); Neutrophil % 87.3 % (47-70); Platelet Count 334 K/mm3 (150-450); RBC Distribution Width CV 15.3 % (11.6-14.6); RBC Distribution Width SD 44.1 fl (35.1-43.9); Red Blood Count 4.82 M/mm3 (4.2-5.4); White Blood Count 9.8 K/mm3 (4.4-11.0)
[2023-02-18 07:14] LABS: Anion Gap 7 (5-15); BUN 15 mg/dL (7-18); BUN/Creat Ratio 19.1 RATIO (10-20); Calcium,Total 8.9 mg/dL (8.5-10.1); Chloride 107 mmol/L (98-107); Creatinine, Serum 0.78 mg/dL (0.55-1.02); EST Glomerular Filtration Rate 77 mL/min (>60); Est Glom Filt Rate - Afr Amer 93 mL/min (>60); Glucose 194 mg/dL (74-106); Potassium 3.6 mmol/L (3.5-5.1); Sodium Level 139 mmol/L (136-145)
--- NOTE | 2023-02-18 09:45 | PCM.PN.HOSP ---
Subjective Subjective Feels little bit better, heart rate is little bit better controlled Objective Data Objective Data Vital Signs: Vital Signs Temp Pulse Resp BP Pulse Ox O2 Del Method 97.9 F 84 18 158/78 H 95 Room Air 02/18/23 04:15 02/18/23 07:12 02/18/23 07:12 02/18/23 04:15 02/18/23 07:12 02/18/23 07:51 Oxygen Delivery Method Room Air Weight: 204 lb 5.896 oz Body Mass Index (BMI) 33.0 Intake & Output: Intake and Output for Last 24 Hours 02/17/23 02/18/23 02/19/23 03:59 03:59 03:59 Intake Total 1531.50 / 1531.50 Output Total 100 / 100 Balance 1531.50 / 1531.50 -100 / -100 Lab / Micro Data 02/18/23 05:20 02/18/23 05:20 Labs: Laboratory Results - last 24 hr 02/17/23 11:28: WBC 12.3 H, RBC 5.47 H, Hgb 12.8, Hct 43.1, MCV 78.8 L, MCH 23.4 L, MCHC 29.7 L, RDW Std Deviation 42.7, RDW Coeff of Kahlil 15.1 H, Plt Count 299, MPV 9.9, Immature Gran % (Auto) 0.500, Neut % (Auto) 80.7 H, Lymph % (Auto) 9.6 L, [place] % (Auto) 7.5, Eos % (Auto) 1.4, Baso % (Auto) 0.3, Absolute Neuts (auto) 9.9 H, Absolute Lymphs (auto) 1.18, Nucleated RBC % 0, Sodium 140, Potassium 2.6 L*, Chloride 106, Carbon Dioxide 29.0, Anion Gap 5, BUN 14, Creatinine 1.06 H, Estim Creat Clear Calc 45.57, Est GFR (MDRD) Af Amer 66, Est GFR (MDRD) Non-Af 54 L, BUN/Creatinine Ratio 13.2, Glucose 174 H, Calcium 9.0, Magnesium 2.1, Troponin I High Sens 46 02/17/23 13:40: Phosphorus 2.4 L, Magnesium 2.1, Troponin I High Sens 70 H 02/18/23 05:20: WBC 9.8, RBC 4.82, Hgb 11.4 L, Hct 38.5, MCV 79.9 L, MCH 23.7 L, MCHC 29.6 L, RDW Std Deviation 44.1 H, RDW Coeff of Kahlil 15.3 H, Plt Count 334, MPV 10.6, Immature Gran % (Auto) 1.100 H, Neut % (Auto) 87.3 H, Lymph % (Auto) 8.3 L, [place] % (Auto) 3.1, Eos % (Auto) 0.0, Baso % (Auto) 0.2, Absolute Neuts (auto) 8.5 H, Absolute Lymphs (auto) 0.81 L, Nucleated RBC % 0, Sodium 139, Potassium 3.6, Chloride 107, Carbon Dioxide 25.0, Anion Gap 7, BUN 15, Creatinine 0.78, Estim Creat Clear Calc 48.30, Est GFR (MDRD) Af Amer 93, Est GFR (MDRD) Non-Af 77, BUN/Creatinine Ratio 19.1, Glucose 194 H, Calcium 8.9 Micro: Microbiology 02/18/23 05:50 Urine, Random Legionella Antigen - Final 02/18/23 05:50 Urine, Random Streptococcus pneumoniae Antigen (M - Final 02/17/23 16:38 Mucosa - Nasopharyngeal Respiratory Panel (PCR) - Final RSV A 02/17/23 11:28 Nasal Secretion SARS-CoV-2 & FLU Antigen (Rapid) - Final Radiography Diagnostic Testing: Radiology Impression Chest X-Ray 02/17/23 11:32 IMPRESSION: Stable chest with no acute or active cardiopulmonary disease. Electronically Signed: Flavio Canela MD at 12:02 EST , Rhythm Strip Rhythm Strip: A-fib Rate: 145 Ectopy: None Physical Exam Narrative General: Alert, Oriented x3, Cooperative, No apparent distress HEENT: Atraumatic, PERRLA, EOMI, Normocephalic Oral: Moist Mucosa Neck: Supple, No JVD Lungs: Diminished, Normal air movement, rhonchi, wheeze, No rales Cardiovascular: Irregular rate and rhythm, Normal S1, Normal S2, No murmurs Abdomen: Soft, Non Tender, Non-Distended, No Hepato-splenomegaly Extremities: No edema, Capillary Refill Less than 3 Seconds Skin: No rashes, No breakdown Musculoskeletal: No Tenderness to Palpation of Joints or Extremities Neurological: Cranial nerves II-XII grossly intact, Motor Exam 5/5 strength throughout, Sensory exam intact to light touch and pain Psych/Mental Status: Normal Affect, Appropriate Assessment & Plan Assessment/Plan (1) Atrial fibrillation with RVR: (2) Asthma exacerbation: (3) URI (upper respiratory infection): PLAN: Plan 1. A-fib with RVR in the setting of upper respiratory infection with possible pneumonia and asthma exacerbation/HTN/HLD ? COVID and flu were negative but respiratory panel came back with RSV A ? Given the story of her feeling a little bit better then getting worse again we will start her on Rocephin and azithromycin however she does not have any sputum production ? Continue with DuoNebs ? We will place her on p.o. prednisone ?Continue with her metoprolol 25 mg p.o. twice daily as well as her home verapamil, the Cardizem drip was able to be discontinued overnight ? She did just have the stress test in July that was unremarkable ? Continue with her Eliquis ? Continue with her home Lipitor 2. GERD ? Stable ? Continue with PPI DVT: Eliquis Charges/Coding Visit Charges Inpatient E&M: 92506 Subs Hosp L2
[2023-02-18] MEDS: predniSONE 20 MG Tablet 40 MG PO (10:06)
[2023-02-18] MEDS: Metoprolol Tartrate 25 MG Tablet PO ×2 (10:07→21:48)
[2023-02-18] MEDS: Verapamil SR 240 MG Tablet PO (10:07)
[2023-02-18] MEDS: Pantoprazole Sodium 40 MG Tablet PO (10:07)
[2023-02-18] MEDS: Atorvastatin Calcium 40 MG Tablet PO (10:07)
[2023-02-18] MEDS: APIXABAN 5 MG TABLET PO ×2 (10:08→21:48)
[2023-02-18] MEDS: guaiFENesin 600 MG Tablet PO ×2 (10:08→21:47)
[2023-02-18] MEDS: Azithromycin 500 MG in Dextrose 5%-Water (250mL Bag) 250 ML 250 MG IV (10:09)
[2023-02-18] MEDS: Ceftriaxone 1 GM/50 ML BAG IV (10:09)
--- NOTE | 2023-02-18 11:22 | EKG12_ITS ---
Test Reason : CP Blood Pressure : / mmHG Vent. Rate : 089 BPM Atrial Rate : 089 BPM P-R Int : 144 ms QRS Dur : 076 ms QT Int : 398 ms P-R-T Axes : 064 029 054 degrees QTc Int : 484 ms Normal sinus rhythm Normal ECG When compared with ECG of 17-FEB-2023 20:37, MANUAL COMPARISON REQUIRED, DATA IS UNCONFIRMED Confirmed by MAGGIE ALLEN, KRISTIN ([id number]), scientific editor DERECK ALBA ([id number]) on 02/27/2023 10:19:17 AM Referred By: TERESE Confirmed By:KRISTIN SERRANO MD
--- NOTE | 2023-02-18 11:23 | NURSING ---
Pt complaint of chest tightness 8/10 pain. Vital signs taken and RT in to do EKG. Will notifiy and eamon to monitor.
[2023-02-18] MEDS: Ondansetron 4 MG/2 ML Vial IV (12:02)
[2023-02-18] MEDS: MELATONIN 3 MG TABLET PO (22:17)
[2023-02-18] MEDS: BENZOCAINE/MENTHOL 1 LOZENGE MUCOUS MEM (22:18)
[2023-02-19] VITALS (11 sets, daily range): BP systolic 122–154; BP diastolic 63–81; PULSE 65–91; RESP 18–24; TEMP 36.3–36.7; O2SAT 84–97; BMI 32.7
[2023-02-19 06:20] LABS: Absolute Lymphocyte Count 1.35 X10^3/uL (0.83-4.51); Absolute Neutrophil Count 13.4 X10^3/uL (2.0-7.7); Basophil# 0.01 X10^3/uL; Basophil% 0.1 % (0-1); Eosinophil# 0.01 X10^3/uL; Eosinophils% 0.1 % (0-5); Hematocrit 36.5 % (37-47); Lymphocyte # 1.35 X10^3/ul (0.83-4.51); Lymphocyte % 8.4 % (19-41); Mean Corp Hgb Conc 30.1 g/dL (32-36); Mean Corpuscular Hgb 23.5 pg (27.0-32.0); Monocyte# 1.22 X10^3/uL; Monocyte% 7.6 % (0-10); NRBC Flagged by Analyzer 0 % (0-5); Neutrophil # 13.35 X10^3/uL (2.7-7.7); Neutrophil % 83.4 % (47-70); Platelet Count 329 K/mm3 (150-450); RBC Distribution Width CV 15.6 % (11.6-14.6); RBC Distribution Width SD 44.1 fl (35.1-43.9); Red Blood Count 4.68 M/mm3 (4.2-5.4)
[2023-02-19 07:06] LABS: Anion Gap 6 (5-15); BUN 23 mg/dL (7-18); BUN/Creat Ratio 32.4 RATIO (10-20); Calcium,Total 8.9 mg/dL (8.5-10.1); Chloride 107 mmol/L (98-107); Creatinine, Serum 0.71 mg/dL (0.55-1.02); EST Glomerular Filtration Rate 86 mL/min (>60); Est Glom Filt Rate - Afr Amer 104 mL/min (>60); Glucose 119 mg/dL (74-106); Potassium 3.7 mmol/L (3.5-5.1); Sodium Level 140 mmol/L (136-145)
[2023-02-19] MEDS: Ipratropium/Albuterol Sulfate 3 ML AMPUL.NEB INHALATION ×4 (07:21→19:10)
[2023-02-19] MEDS: Acetaminophen 325 MG Tablet 650 MG PO ×2 (07:56→14:03)
[2023-02-19] MEDS: Benzonatate 100 MG Capsule 200 MG PO ×2 (07:56→14:03)
--- NOTE | 2023-02-19 09:20 | PCM.PN.HOSP ---
Subjective Subjective Needed oxygen overnight otherwise doing relatively well and feels little bit better than when she came in Objective Data Objective Data Vital Signs: Vital Signs Temp Pulse Resp BP Pulse Ox O2 Del Method O2 Flow Rate 98.1 F 91 24 H 149/81 H 84 Room Air 2 02/19/23 03:51 02/19/23 07:21 02/19/23 07:21 02/19/23 03:51 02/19/23 07:53 02/19/23 08:27 02/19/23 07:21 Oxygen Flow Rate (L/min) 2 Oxygen Delivery Method Room Air Weight: 202 lb 13.204 oz Body Mass Index (BMI) 32.7 Intake & Output: Intake and Output for Last 24 Hours 02/18/23 02/19/23 02/20/23 03:59 03:59 03:59 Intake Total 1531.50 / 1531.50 1005 / 1005 Output Total 1300 / 1300 200 / 200 Balance 1531.50 / 1531.50 -295 / -295 -200 / -200 Lab / Micro Data 02/19/23 05:35 02/19/23 05:35 Labs: Laboratory Results - last 24 hr 02/19/23 05:35: WBC 16.0 H, RBC 4.68, Hgb 11.0 L, Hct 36.5 L, MCV 78.0 L, MCH 23.5 L, MCHC 30.1 L, RDW Std Deviation 44.1 H, RDW Coeff of Kahlil 15.6 H, Plt Count 329, MPV 10.0, Immature Gran % (Auto) 0.400, Neut % (Auto) 83.4 H, Lymph % (Auto) 8.4 L, [place] % (Auto) 7.6, Eos % (Auto) 0.1, Baso % (Auto) 0.1, Absolute Neuts (auto) 13.4 H, Absolute Lymphs (auto) 1.35, Nucleated RBC % 0, Sodium 140, Potassium 3.7, Chloride 107, Carbon Dioxide 27.0, Anion Gap 6, BUN 23 H, Creatinine 0.71, Estim Creat Clear Calc 48.30, Est GFR (MDRD) Af Amer 104, Est GFR (MDRD) Non-Af 86, BUN/Creatinine Ratio 32.4 H, Glucose 119 H, Calcium 8.9 Micro: Microbiology 02/18/23 05:50 Urine, Random Legionella Antigen - Final 02/18/23 05:50 Urine, Random Streptococcus pneumoniae Antigen (M - Final 02/17/23 16:38 Mucosa - Nasopharyngeal Respiratory Panel (PCR) - Final RSV A 02/17/23 11:28 Nasal Secretion SARS-CoV-2 & FLU Antigen (Rapid) - Final Rhythm Strip Rhythm Strip: A-fib Rate: 145 Ectopy: None Physical Exam Narrative General: Alert, Oriented x3, Cooperative, No apparent distress HEENT: Atraumatic, PERRLA, EOMI, Normocephalic Oral: Moist Mucosa Neck: Supple, No JVD Lungs: Diminished, Normal air movement, rhonchi, wheeze, No rales Cardiovascular: Irregular rate and rhythm, Normal S1, Normal S2, No murmurs Abdomen: Soft, Non Tender, Non-Distended, No Hepato-splenomegaly Extremities: No edema, Capillary Refill Less than 3 Seconds Skin: No rashes, No breakdown Musculoskeletal: No Tenderness to Palpation of Joints or Extremities Neurological: Cranial nerves II-XII grossly intact, Motor Exam 5/5 strength throughout, Sensory exam intact to light touch and pain Psych/Mental Status: Normal Affect, Appropriate Assessment & Plan Assessment/Plan (1) Atrial fibrillation with RVR: (2) Asthma exacerbation: (3) URI (upper respiratory infection): PLAN: Plan 1. A-fib with RVR in the setting of upper respiratory infection with possible pneumonia and asthma exacerbation/HTN/HLD ? COVID and flu were negative but respiratory panel came back with RSV A ? Given the story of her feeling a little bit better then getting worse again we will start her on Rocephin and azithromycin however she does not have any sputum production ? Continue with DuoNebs ? We will place her on p.o. prednisone ?Continue with her metoprolol 25 mg p.o. twice daily as well as her home verapamil ? She did just have the stress test in July that was unremarkable ? Continue with her Eliquis ? Continue with her home Lipitor 2. GERD ? Stable ? Continue with PPI DVT: Eliquis Charges/Coding Visit Charges Inpatient E&M: 88165 Subs Hosp L2
[2023-02-19] MEDS: Metoprolol Tartrate 25 MG Tablet PO ×2 (10:32→20:39)
[2023-02-19] MEDS: guaiFENesin 600 MG Tablet PO ×2 (10:32→20:39)
[2023-02-19] MEDS: Pantoprazole Sodium 40 MG Tablet PO (10:32)
[2023-02-19] MEDS: APIXABAN 5 MG TABLET PO ×2 (10:33→20:39)
[2023-02-19] MEDS: Verapamil SR 240 MG Tablet PO (10:33)
[2023-02-19] MEDS: predniSONE 20 MG Tablet 40 MG PO (10:33)
[2023-02-19] MEDS: Azithromycin 500 MG in Dextrose 5%-Water (250mL Bag) 250 ML 250 MG IV (10:33)
[2023-02-19] MEDS: Atorvastatin Calcium 40 MG Tablet PO (10:33)
[2023-02-19] MEDS: Ceftriaxone 1 GM/50 ML BAG IV (10:34)
[2023-02-20] VITALS (7 sets, daily range): BP systolic 141–161; BP diastolic 71–87; PULSE 68–86; RESP 18–20; TEMP 36.4; O2SAT 86–97; BMI 32.7
[2023-02-20] MEDS: Ipratropium/Albuterol Sulfate 3 ML AMPUL.NEB INHALATION ×3 (06:53→15:04)
[2023-02-20] MEDS: Pantoprazole Sodium 40 MG Tablet PO (08:56)
[2023-02-20] MEDS: predniSONE 20 MG Tablet 40 MG PO (08:56)
[2023-02-20] MEDS: Verapamil SR 240 MG Tablet PO (08:56)
[2023-02-20] MEDS: Metoprolol Tartrate 25 MG Tablet PO (08:56)
[2023-02-20] MEDS: guaiFENesin 600 MG Tablet PO (08:57)
[2023-02-20] MEDS: Atorvastatin Calcium 40 MG Tablet PO (08:57)
[2023-02-20] MEDS: APIXABAN 5 MG TABLET PO (09:08)
[2023-02-20] MEDS: Acetaminophen 325 MG Tablet 650 MG PO (09:08)
[2023-02-20] MEDS: Benzonatate 100 MG Capsule 200 MG PO (09:08)
[2023-02-20] MEDS: BENZOCAINE/MENTHOL 1 LOZENGE MUCOUS MEM (09:08)
--- NOTE | 2023-02-20 10:35 | CASEMGMT ---
Addendum entered by Ari Fisher 02/20/23 20:04: 3:30 PM: 10 [facility] agencies having declined accepting pt, including [facility] and [facility]. Pt made aware, voices understanding, and states she still feels safe to discharge home and denies having other discharge planning needs/concerns. Home O2 has been delivered to her room and pt aware to call [employer] prior to discharge so additional home O2 can be delivered to her home. Original Note: RN?CM?AWNING HANGER?CM?to room to meet with patient for initial transition planning/care coordination?assessment.?RN?CM?introduced self and role at [facility].? Pt voices understanding and consents to?assessment?at this time.? Pt sitting up in chair in room in no distress at this time.? Pt is A/O at this time and answers all questions appropriately.?? Care providers, pharmacy, and demographics verified/updated at this time. PCP: Dr Rivera Specialists: Dr Damico-cardiology, Dr Cowan-GI, Dr Tobar-ortho, and goes to a Foot/Ankle specialist. Preferred Pharmacy: [facility] Retail Insurance: [facility] Dual Prescription Benefit:?Yes LNOK:Dtr, Anne-Marie. SonYoel Living Arrangements: Lives alone in 2-story home w/3-4 steps to enter w/railing. Bedroom and bathroom are on 2nd floor. No bathroom on main floor. Pt states she does okay w/the stairs. Pt states she is independent w/ADLS's, IADL's, does her own grocery shopping, and manages her own medications. She states her daughter lives about 10 min away away and she has a neighbor she can call if she needs assistance. Transportation:?Pt states drives self and states no transportation concerns at this time.?Dtr will take her home @ discharge. DME: States has the following DME:?shower chair, quad cane, walker, medical alert, nebulizer, pulse ox, and BP machine. Pt does not have home O2. Home O2 testing has been completed and pt qualifies for home O2. Discussed home O2 set-up process w/pt and questions answered. Pt prefers [employer] for DME co. Script obtained for O2 from Dr Viramontes and sent to [employer] via [employer]. Call to Nick @ [facility] and she was made aware pt is discharging home today and will need O2 delivered to her room. Pt states no need for further DME at this time.? HHC/SNF: No hx of either. Discussed discharge planning. Pt wishes to return home. Initially she stated did not want HHC and then upon further discussion she states she thinks it would be helpful. She states she has not preference of [facility] company and states to send out referrals to see who may be able to accept her. Shameka, materials planner/production planner, made aware. CHAPARRITA CM did place a call to [facility] and they are not able to accept her d/t they are not in-network w/pt's insurance plan. Pt wishes to return home and states has no concerns with going home at time of discharge.? CM?to follow for any further discharge planning/needs.? Pt voices no further concerns/needs at this time.? Advised pt to ask for?CM?if any further questions/concerns/needs arise.? Voices understanding. PLAN:??HHC, pending acceptance Alphonso WHALEY?RN?CM
--- NOTE | 2023-02-20 10:36 | PCM.PN.HOSP ---
Subjective Subjective Still does not feel very well, now on 3 L of oxygen will obtain ambulatory pulse ox Objective Data Objective Data Vital Signs: Vital Signs Temp Pulse Resp BP Pulse Ox O2 Del Method O2 Flow Rate 97.6 F L 86 18 158/81 H 93 Nasal Cannula 2 02/20/23 08:54 02/20/23 08:56 02/20/23 08:54 02/20/23 08:56 02/20/23 08:54 02/20/23 08:54 02/20/23 08:54 Oxygen Flow Rate (L/min) 2 Oxygen Delivery Method Nasal Cannula Weight: 202 lb 9.677 oz Body Mass Index (BMI) 32.7 Intake & Output: Intake and Output for Last 24 Hours 02/19/23 02/20/23 02/21/23 03:59 03:59 03:59 Intake Total 1005 / 1005 1445 / 1445 240 / 240 Output Total 1300 / 1300 550 / 550 350 / 350 Balance -295 / -295 895 / 895 -110 / -110 Lab / Micro Data 02/19/23 05:35 02/19/23 05:35 Micro: Microbiology 02/18/23 07:58 Sputum, Expectorated/Coughed Gram Stain - Final 02/18/23 07:58 Sputum, Expectorated/Coughed Respiratory Culture - Final 02/18/23 05:50 Urine, Random Legionella Antigen - Final 02/18/23 05:50 Urine, Random Streptococcus pneumoniae Antigen (M - Final 02/17/23 16:38 Mucosa - Nasopharyngeal Respiratory Panel (PCR) - Final RSV A 02/17/23 11:28 Nasal Secretion SARS-CoV-2 & FLU Antigen (Rapid) - Final Rhythm Strip Rhythm Strip: A-fib Rate: 145 Ectopy: None Physical Exam Narrative General: Alert, Oriented x3, Cooperative, No apparent distress HEENT: Atraumatic, PERRLA, EOMI, Normocephalic Oral: Moist Mucosa Neck: Supple, No JVD Lungs: Diminished, Normal air movement, rhonchi, wheeze, No rales Cardiovascular: Irregular rate and rhythm, Normal S1, Normal S2, No murmurs Abdomen: Soft, Non Tender, Non-Distended, No Hepato-splenomegaly Extremities: No edema, Capillary Refill Less than 3 Seconds Skin: No rashes, No breakdown Musculoskeletal: No Tenderness to Palpation of Joints or Extremities Neurological: Cranial nerves II-XII grossly intact, Motor Exam 5/5 strength throughout, Sensory exam intact to light touch and pain Psych/Mental Status: Normal Affect, Appropriate Assessment & Plan Assessment/Plan (1) Atrial fibrillation with RVR: (2) Asthma exacerbation: (3) URI (upper respiratory infection): PLAN: Plan 1. A-fib with RVR in the setting of upper respiratory infection with possible pneumonia and asthma exacerbation/HTN/HLD ? COVID and flu were negative but respiratory panel came back with RSV A ? She has completed azithromycin, can continue with Rocephin ? Continue with DuoNebs ? We will place her on p.o. prednisone ?Continue with her metoprolol 25 mg p.o. twice daily as well as her home verapamil ? She did just have the stress test in July that was unremarkable ? Continue with her Eliquis ? Continue with her home Lipitor ? Plan for ambulatory pulse ox today 2. GERD ? Stable ? Continue with PPI DVT: Eliquis Charges/Coding Visit Charges Inpatient E&M: 58326 Subs Hosp L2
[2023-02-20] MEDS: Ceftriaxone 1 GM/50 ML BAG IV (10:56)
--- NOTE | 2023-02-20 11:41 | DCINST_ITS ---
Discharge Instructions Diet Discharge Diet: Low fat / Low cholesterol Activity Discharge Activity: Return to Normal Activity Dressing / Incision Call your doctor if you observe: Fever of 101 or Higher, Shortness of breath, Dizziness, Fainting spells, Swelling in the ankles, Chest pain and Increased palpitations (irregular heartbeat) Follow Up Care Test Results: Test results from this visit will be discussed in further detail at your follow- up appointment, if applicable. Discharge Plan Admission Admit Date/Time: 02/17/23 13:17 Attending Provider: Agustín Viramontes Primary Care Provider: Valencia Rivera Discharge Orders/Prescriptions Prescriptions: New prednisone 10 mg tablet 40 mg PO BREAKFAST Qty: 42 0RF Rx Instructions: Take 4 tablets daily for 4 days then 3 tablets daily for 4 days then 2 tablets daily for 4 days then 1 tablet daily for 4 days then half tablet daily for 4 days cefdinir 300 mg capsule 300 mg PO BID 3 Days Qty: 6 0RF metoprolol tartrate 25 mg Tablet 25 mg PO BID 30 Days Qty: 60 0RF Continued atorvastatin 40 mg tablet 40 mg PO DAILY epinephrine 0.3 MG syringe 0.3 mg IM X1 loratadine 10 MG tablet 10 mg PO DAILY albuterol sulfate 18 GM HFA aerosol inhaler 2 puff IH Q6H PRN PRN (Reason: Sob &/Or Wheezing) Patient Comments: shortness of breath meclizine 25 MG tablet 25 mg PO Q6H PRN (Reason: Dizziness) Patient Comments: vertigo and dizziness cyclosporine 1 DROP dropperette 1 drp EACH EYE BID fluticasone propionate 1 SPRAY spray,suspension 2 spray NASAL DAILY PRN PRN (Reason: Allergies) albuterol sulfate 2.5 MG/3 ML solution for nebulization 2.5 mg inhalation Q4H PRN PRN (Reason: Sob &/Or Wheezing) acetaminophen 325 MG tablet 650 mg PO Q6H PRN PRN (Reason: Pain Score 1-3/Temp > 100.7 F) 0RF benzonatate 100 MG capsule 200 mg PO TID PRN (Reason: Cough) Qty: 20 0RF verapamil 240 mg tablet extended release 240 mg PO DAILY Qty: 90 3RF scopolamine base 1 mg over 3 days patch 3 day 1 patch transdermal Q3D PRN (Reason: nausea and vomiting) Qty: 4 2RF dicyclomine 10 mg capsule 10 mg PO BID PRN (Reason: abdominal discomfort) Qty: 30 1RF pantoprazole 40 mg tablet,delayed release (DR/EC) See Rx Instructions .ROUTE .COMPLEX Qty: 90 0RF Dose Instruction: TAKE 1 TABLET EVERY DAY Rx Instructions: TAKE 1 TABLET EVERY DAY Eliquis 5 mg tablet 5 mg PO BID Qty: 180 3RF colestipol 1 gram tablet 1 g PO BID 30 Days Qty: 60 2RF Hold Instructions: on hold Discontinued metoprolol tartrate 25 mg tablet 12.5 mg PO BID Qty: 90 3RF Referrals / Follow Up: Valencia Rivera MD [Primary Care Provider] - Within 1 Week Disposition Disposition (needs filled in before D/C Order can be placed): Home, Self Care
--- NOTE | 2023-02-20 11:46 | DS.PCM_ITS ---
Providers Date of Admission: 02/17/23 Primary Care Physician: Dr. Valencia Rivera MD Reason For Visit: AFIB RVR Diagnosis Discharge Diagnosis (1) Atrial fibrillation with RVR: Status: Acute Code(s): I48.91 - Unspecified atrial fibrillation (2) Asthma exacerbation: Status: Acute Code(s): J45.901 - Unspecified asthma with (acute) exacerbation (3) URI (upper respiratory infection): Status: Acute Code(s): J06.9 - Acute upper respiratory infection, unspecified Medications at Discharge Home Medications epinephrine 0.3 mg/0.3 mL injection, auto-injector 0.3 mg IM X1 ALLERGIC REACTIONS 05/04/13 loratadine 10 mg tablet 10 mg PO DAILY ALLERGIES 05/04/13 albuterol sulfate 90 mcg/actuation aerosol inhaler 2 puff IH Q6H PRN PRN Sob &/Or Wheezing 12/26/15 cyclosporine 0.05 % eye drops in a dropperette 1 drp EACH EYE BID ALLERGIES 03/28/16 meclizine 25 mg tablet 25 mg PO Q6H PRN Dizziness 03/28/16 fluticasone propionate 50 mcg/actuation nasal spray,suspension 2 spray NASAL DAILY PRN PRN Allergies 07/02/18 albuterol sulfate 2.5 mg/3 mL (0.083 %) solution for nebulization 2.5 mg inhalation Q4H PRN PRN Sob &/Or Wheezing 12/04/18 acetaminophen 325 mg tablet 650 mg (2 x 325 mg) PO Q6H PRN PRN Pain Score 1- 3/Temp > 100.7 F 02/12/19 benzonatate 100 mg capsule 200 mg (2 x 100 mg) PO TID PRN Cough #20 caps 04/26/19 verapamil 240 mg tablet,extended release 240 mg PO DAILY BP #90 tabs 12/30/19 atorvastatin 40 mg tablet 40 mg PO DAILY cholesterol 11/18/21 scopolamine base 1 mg over 3 days transdermal patch 1 patch transdermal Q3D PRN nausea and vomiting #4 ea 01/13/22 dicyclomine 10 mg capsule 10 mg PO BID PRN abdominal discomfort #30 caps 02/02/22 pantoprazole 40 mg tablet,delayed release See Rx Instructions .Route .COMPLEX s tomach #90 tabs 04/17/23 apixaban 5 mg tablet (Eliquis) 5 mg PO BID thinner #180 tabs 09/15/22 colestipol 1 gram tablet 1 g PO BID med 30 days #60 tabs 10/25/22 cefdinir 300 mg capsule 300 mg PO BID 3 days #6 caps 02/20/23 metoprolol tartrate 25 mg tablet 25 mg PO BID 30 days #60 tabs 02/20/23 prednisone 10 mg tablet 40 mg (4 x 10 mg) PO BREAKFAST #42 tabs 02/20/23 Hospital Course Operations None Procedures None Summary of Care Provided Minutes Spent on Discharge: 35 Hospital Course: Per HPI: Hospital course: 1. A-fib with RVR in the setting of upper respiratory infection with possible pneumonia and asthma exacerbation/HTN/HLD ? COVID and flu were negative but respiratory panel came back with RSV A ? She has completed azithromycin, can continue with Rocephin ? Continue with DuoNebs ? We will place her on p.o. prednisone ?Continue with her metoprolol 25 mg p.o. twice daily as well as her home verapamil ? She did just have the stress test in July that was unremarkable ? Continue with her Eliquis ? Continue with her home Lipitor 02/20/2023: Showed ambulatory pulse ox today which demonstrated need for 2 L continuous and she is active in the community so she will need a portable oxygen capability. I discussed with her the plan for discharge today she expressed understanding the risk benefits of going home and would like to go home today. Most of her if not all of her issues are secondary to RSV a, and given her history of asthma we will continue with a prolonged steroid taper as well as 3 more days of cefdinir to complete her antibiotics for possible bacterial pneumonia. Would also recommend continuation of her home inhalers every 4-6 hours as needed for shortness of breath. She did note that she felt much better when she was ambulating and that her back pain was improved and her breathing was little bit easier so I do recommend continued ambulation at home. All of her home meds were continued on discharge, her metoprolol was increased from 12 and half milligrams p.o. twice daily to 25 mg p.o. twice daily. I do recommend outpatient follow-up in 3 to 5 days to monitor her blood pressure and symptom progression. 2. GERD ? Stable ? Continue with PPI Physical Exam Narrative General: Alert, Oriented x3, Cooperative, No apparent distress HEENT: Atraumatic, PERRLA, EOMI, Normocephalic Oral: Moist Mucosa Neck: Supple, No JVD Lungs: Diminished, Normal air movement, rhonchi, wheeze, No rales Cardiovascular: Regular rate and rhythm, normal S1, Normal S2, No murmurs Abdomen: Soft, Non Tender, Non-Distended, No Hepato-splenomegaly Extremities: No edema, Capillary Refill Less than 3 Seconds Skin: No rashes, No breakdown Musculoskeletal: No Tenderness to Palpation of Joints or Extremities Neurological: Cranial nerves II-XII grossly intact, Motor Exam 5/5 strength throughout, Sensory exam intact to light touch and pain Psych/Mental Status: Normal Affect, Appropriate Weight / BMI Weight Weight: 202 lb 9.677 oz Body Mass Index (BMI) 32.7 ABG / Lab / Microbiology Data 02/19/23 05:35 02/19/23 05:35 Microbiology: Microbiology 02/18/23 07:58 Sputum, Expectorated/Coughed Gram Stain - Final 02/18/23 07:58 Sputum, Expectorated/Coughed Respiratory Culture - Final 02/18/23 05:50 Urine, Random Legionella Antigen - Final 02/18/23 05:50 Urine, Random Streptococcus pneumoniae Antigen (M - Final 02/17/23 16:38 Mucosa - Nasopharyngeal Respiratory Panel (PCR) - Final RSV A 02/17/23 11:28 Nasal Secretion SARS-CoV-2 & FLU Antigen (Rapid) - Final D/C Instructions Discharge Diet: Low fat / Low cholesterol Call your doctor if you observe: Fever of 101 or Higher, Shortness of breath, Dizziness, Fainting spells, Swelling in the ankles, Chest pain and Increased palpitations (irregular heartbeat) Meaningful Use Info Meaningful Use Diagnoses (Choose all that apply): None applicable Discharge Plan Admission Admit Date/Time: 02/17/23 13:17 Attending Provider: Agustín Viramontes Primary Care Provider: Valencia Rivera Discharge Orders/Prescriptions Prescriptions: New prednisone 10 mg tablet 40 mg PO BREAKFAST Qty: 42 0RF Rx Instructions: Take 4 tablets daily for 4 days then 3 tablets daily for 4 days then 2 tablets daily for 4 days then 1 tablet daily for 4 days then half tablet daily for 4 days cefdinir 300 mg capsule 300 mg PO BID 3 Days Qty: 6 0RF metoprolol tartrate 25 mg Tablet 25 mg PO BID 30 Days Qty: 60 0RF Continued atorvastatin 40 mg tablet 40 mg PO DAILY epinephrine 0.3 MG syringe 0.3 mg IM X1 loratadine 10 MG tablet 10 mg PO DAILY albuterol sulfate 18 GM HFA aerosol inhaler 2 puff IH Q6H PRN PRN (Reason: Sob &/Or Wheezing) Patient Comments: shortness of breath meclizine 25 MG tablet 25 mg PO Q6H PRN (Reason: Dizziness) Patient Comments: vertigo and dizziness cyclosporine 1 DROP dropperette 1 drp EACH EYE BID fluticasone propionate 1 SPRAY spray,suspension 2 spray NASAL DAILY PRN PRN (Reason: Allergies) albuterol sulfate 2.5 MG/3 ML solution for nebulization 2.5 mg inhalation Q4H PRN PRN (Reason: Sob &/Or Wheezing) acetaminophen 325 MG tablet 650 mg PO Q6H PRN PRN (Reason: Pain Score 1-3/Temp > 100.7 F) 0RF benzonatate 100 MG capsule 200 mg PO TID PRN (Reason: Cough) Qty: 20 0RF verapamil 240 mg tablet extended release 240 mg PO DAILY Qty: 90 3RF scopolamine base 1 mg over 3 days patch 3 day 1 patch transdermal Q3D PRN (Reason: nausea and vomiting) Qty: 4 2RF dicyclomine 10 mg capsule 10 mg PO BID PRN (Reason: abdominal discomfort) Qty: 30 1RF pantoprazole 40 mg tablet,delayed release (DR/EC) See Rx Instructions .ROUTE .COMPLEX Qty: 90 0RF Dose Instruction: TAKE 1 TABLET EVERY DAY Rx Instructions: TAKE 1 TABLET EVERY DAY Eliquis 5 mg tablet 5 mg PO BID Qty: 180 3RF colestipol 1 gram tablet 1 g PO BID 30 Days Qty: 60 2RF Hold Instructions: on hold Discontinued metoprolol tartrate 25 mg tablet 12.5 mg PO BID Qty: 90 3RF Referrals / Follow Up: Valencia Rivera MD [Primary Care Provider] - Within 1 Week Disposition Disposition (needs filled in before D/C Order can be placed): Home, Self Care Charges/Coding Visit Charges Inpatient E&M: 47174 Disch Hosp >30min
--- NOTE | 2023-02-20 12:07 | CASEMGMT ---
Addendum entered by Shameka Cook 02/21/23 14:18: All agencies have declined. [facility] CM updated. Shameka Cook, Discharge Planning Asst. Original Note: Discharge Planning HH referral sent via [facility] to [facility], [facility], [facility], [facility], [facility], [facility], [place], [facility], and [facility]. Shameka Cook, Discharge Planning Asst.
== END 2023-02-20 17:06 | disposition home or self-care (01) | DRG 309 ==
LOC: ED 12:24 → PCU 14:09
PROVIDERS: Physician Assistant; Admitting Provider Family Medicine; Emergency Provider Emergency Medicine; PCP Internal Medicine; Visit Provider Family Medicine
DX: I48.0 Paroxysmal atrial fibrillation (principal); J45.901 Unspecified asthma with (acute) exacerbation; B97.4 Respiratory syncytial virus as the cause of diseases classified elsewhere; I10 Essential (primary) hypertension; K21.9 Gastro-esophageal reflux disease without esophagitis; J06.9 Acute upper respiratory infection, unspecified; E78.5 Hyperlipidemia, unspecified; E87.6 Hypokalemia; Z79.01 Long term (current) use of anticoagulants; Z79.899 Other long term (current) drug therapy; Z86.73 Personal history of transient ischemic attack (TIA), and cerebral infarction without residual deficits
CPT/HCPCS: 36415; 71046; 80048; 83735; 84100; 84484; 85025; 87070; 87205; 87428; 87449; 87633; 93005; 94640; 94762; 99285; J7030; J7050; A4216; J2405

== ENCOUNTER 2023-05-26 13:17 | Inpatient (IN) | payer MEDICARE, MEDICAID, SELFPAY ==
[2023-05-26] VITALS (10 sets, daily range): BP systolic 130–174; BP diastolic 58–86; PULSE 66–78; RESP 16–18; TEMP 35.8–36.8; O2SAT 97–100; BMI 33.2
--- NOTE | 2023-05-26 13:44 | CT_ITS ---
EXAM: CT ABDOMEN AND PELVIS WITH INTRAVENOUS CONTRAST CLINICAL INDICATION: lower abd pain, rectal bleeding TECHNIQUE: Helically acquired images were obtained of the abdomen and pelvis with intravenous contrast. This CT exam was performed using one or more of the following dose reduction techniques: automated exposure control, adjustment of the mA and/or kV according to patient size, and/or use of iterative reconstruction technique. CONTRAST: IV 100mL [id number]-300 COMPARISON: CT Abdomen Pelvis dated 06/19/2021 FINDINGS: LOWER THORAX: Normal. Lung bases are clear. No cardiomegaly. No pericardial effusion. ABDOMEN: LIVER: Normal. Homogeneous. No focal mass. GALLBLADDER AND BILE DUCTS: The gallbladder is absent which may account for the mild stable distention of the biliary tree. PANCREAS: Normal. No focal cystic or solid mass. SPLEEN: Normal. Normal size without focal cystic or solid mass. ADRENALS: Normal. No nodules. KIDNEYS AND URETERS: Simple appearing bilateral renal cysts again noted. No specific follow-up indicated. Normal renal size and position. No hydronephrosis. STOMACH AND BOWEL: Stool distention of the large bowel noted to the level of the sigmoid colon where there is transition to thick-walled distal colon and rectum. PELVIS: APPENDIX: Appendix is visualized and normal in appearance. BLADDER: Normal. REPRODUCTIVE: Hysterectomy again noted. ABDOMEN and PELVIS: INTRAPERITONEAL SPACE: Normal. No ascites or other fluid collection. No free air. BONES/JOINTS: No acute bone or joint abnormality. SOFT TISSUES: Previously noted left rectus muscle hematoma has resolved. Small fat-containing umbilical hernia is present. VASCULATURE: Normal. Abdominal aorta is non-dilated. LYMPH NODES: Normal. No enlarged lymph nodes. CT/Abdomen/Pelvis W IV Cont ONLY IMPRESSION: Proctocolitis. Electronically Signed: Vikram Spears MD at 15:39 EDT ,
--- NOTE | 2023-05-26 13:45 | EDS_ITS ---
HPI HPI - GI History of Present Illness Chief Complaint: GI Bleed Informant: patient Narrative Narrative: Patient with 1 week of intermittent lower abdominal pain and rectal bleeding. Today, she had an explosive episode of bleeding while sitting on the toilet, and she is in more severe lower abdominal pain. It radiates into her low back. She is on Eliquis for A-fib and she has continued to take it for the past week. She is now feeling lightheaded and near syncopal when she stands up. [facility] Medical History Acute lower gastrointestinal bleeding Ambulates with cane Asthma Atrial fibrillation Back pain BMI greater than 30 Colitis Community acquired pneumonia CVA (cerebral vascular accident) Diarrhea Essential (primary) hypertension GERD (gastroesophageal reflux disease) History of cataract History of Clostridium difficile infection History of hiatal hernia History of stress test HLD (hyperlipidemia) Migraine Non-smoker On amiodarone therapy Osteoarth NOS-up/arm Osteoarthritis Osteoporosis Paroxysmal atrial fibrillation Post-menopausal Secondary pulmonary arterial hypertension Suspected 2019 novel coronavirus infection (05/19/19) TIA (transient ischemic attack) Traumatic hematoma of abdominal wall 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 Wears partial dentures Home Medications epinephrine 0.3 mg/0.3 mL injection, auto-injector 0.3 mg IM X1 ALLERGIC REACTIONS 05/04/13 [History Last Taken Unknown] loratadine 10 mg tablet 10 mg PO DAILY ALLERGIES 05/04/13 [History Last Taken 09/15/21] albuterol sulfate 90 mcg/actuation aerosol inhaler 2 puff inhalation Q6H PRN Sob &/Or Wheezing 12/26/15 [History Last Taken 09/09/19] cyclosporine 0.05 % eye drops in a dropperette 1 drp EACH EYE BID ALLERGIES 03/28/16 [History Last Taken 09/15/21] meclizine 25 mg tablet 25 mg PO Q6H PRN Dizziness 03/28/16 [History Last Taken 09/12/19] fluticasone propionate 50 mcg/actuation nasal spray,suspension 2 spray NASAL DAILY PRN PRN Allergies 07/02/18 [History Last Taken 09/15/21] albuterol sulfate 2.5 mg/3 mL (0.083 %) solution for nebulization 2.5 mg inhalation Q4H PRN Sob &/Or Wheezing 12/04/18 [History Last Taken 12/01/18] benzonatate 100 mg capsule 200 mg (2 x 100 mg) PO TID PRN Cough #20 caps 04/26/19 [Rx Last Taken Unknown] verapamil 240 mg tablet,extended release 240 mg PO DAILY BP #90 tabs 12/30/19 [Rx Last Taken 11/24/21] atorvastatin 40 mg tablet 40 mg PO DAILY cholesterol 11/18/21 [History Last Taken Unknown] scopolamine base 1 mg over 3 days transdermal patch 1 patch transdermal Q3D PRN nausea and vomiting #4 ea 01/13/22 [Rx Last Taken Unknown] dicyclomine 10 mg capsule 10 mg PO BID PRN abdominal discomfort #30 caps 02/02/22 [Rx Last Taken Unknown] pantoprazole 40 mg tablet,delayed release See Rx Instructions .Route .COMPLEX stomach #90 tabs 06/12/22 [Rx Last Taken Unknown] apixaban 5 mg tablet (Eliquis) 5 mg PO BID thinner #180 tabs 09/15/22 [Rx Last Taken 05/26/23] colestipol 1 gram tablet 1 g PO BID med 30 days #60 tabs 10/25/22 [Rx Last Taken Unknown] cefdinir 300 mg capsule 300 mg PO BID 3 days #6 caps 02/20/23 [Rx Last Taken Unknown] metoprolol tartrate 25 mg tablet 25 mg PO BID 30 days #60 tabs 02/20/23 [Rx Last Taken Unknown] prednisone 10 mg tablet 40 mg (4 x 10 mg) PO BREAKFAST #42 tabs 02/20/23 [Rx Last Taken Unknown] Allergy/AdvReac Type Severity Reaction Status Date / Time adhesive tape Allergy Rash Verified 05/26/23 13:20 pepper (genus Capsicum) Allergy Hives Verified 05/26/23 13:20 propoxyphene HCl Allergy Rash Verified 05/26/23 13:20 [From Darvon] sulfamethoxazole Allergy Shortness Verified 05/26/23 13:20 [From Bactrim] of breath trimethoprim [From Bactrim] Allergy Shortness Verified 05/26/23 13:20 of breath venom-honey bee Allergy Anaphylaxis Verified 05/26/23 13:20 [bee venom (honey bee)] venom-wasp [wasp venom] Allergy Anaphylaxis Verified 05/26/23 13:20 Family History Father CAD (coronary artery disease) Brother Heart disease Surgical History History of cholecystectomy History of colonoscopy (11/21/21) history of mastoid tumor resection History of total hysterectomy Social History Smoking Status: Never smoker alcohol intake: current alcohol intake frequency: holidays/special occasions only substance use type: does not use caffeine: Yes Type: tea Number of servings: 2 ROS ROS ED Constitutional Constitutional ED: Denies chills or fever(s) Eyes Eyes: Denies change in vision or diplopia ENT ENT ED: Denies rhinorrhea or sore throat Cardiovascular Cardiovascular: Reports lightheadedness; Denies chest pain, palpitations or syncope Respiratory/Chest Respiratory/Chest: Denies cough or dyspnea Gastrointestinal Gastrointestinal: Reports abdominal pain, diarrhea, hematochezia, nausea and other Details: Initially felt like there was some hemorrhoid but denies feeling like that now. ; Denies melena or vomiting Genitourinary Genitourinary ED: Denies dysuria or hematuria Musculoskeletal Musculoskeletal: Denies back pain or neck pain Integumentary Denies abscess or rash Neurologic Neurologic: Denies headache(s), paresthesias or weakness Psychiatric Psychiatric: Denies suicidal thoughts EXAM Physical Exam Const Vital Signs: 05/26/23 13:18 05/26/23 15:18 Temperature 96.4 F L Temperature Source Temporal Pulse Rate 78 66 Respiratory Rate 16 18 Blood Pressure 174/60 H 151/75 H Blood Pressure Mean 98 100 Pulse Ox 99 98 Oxygen Delivery Method Room Air Room Air Positive well nourished, well developed and obese General Appearance ED: well developed and NAD Nutritional Appearance: obese HEENT Reports moist mucous membranes normocephalic and atraumatic Eyes PERRL and EOMs intact bilaterally Neck full ROM and supple Resp normal respiratory effort and clear to auscultation bilaterally Cardio Rate: Negative for tachycardic Rhythm: abnormal rhythm irregularly irregular GI non-distended GI Narrative: Tender without guarding or rebound throughout the lower abdomen nonfocal obesity limits exam. On rectal exam, there is no active bleeding/pooling on rectal, no focal tenderness or feeling of an abscess, no prolapsed internal or external hemorrhoids seen. Auscultation: normoactive bowel sounds Palpation: soft Back/Spine no CVA tenderness General Back: other FROM Extremity normal to inspection General Extremety ED: Negative for edema, pulses abnormal or tenderness General Extremity: Negative for edema or pulses abnormal Neuro oriented x3, CN's II-XII intact bilaterally and no sensory deficits noted Sensorium / Orientation: awake and alert Motor Exam: strength 5/5 throughout Skin no rashes or lesions noted and no wounds MDM MDM MDM Narrative Medical decision making narrative: Labs the patient has a hemoglobin of 8.2, this is down from 11 which was a couple months ago. Her BUN is not significantly high to suggest an upper GI source. Her lactic acid is slightly elevated at 2.4. Ischemic colitis is in the differential here, although less likely given that the patient is anticoagulated; she took her last dose of Eliquis this morning. She is feeling much better after IV fluids, Zofran, morphine. Her vital signs are stable/normal, she was little hypertensive when she initially arrived but now 151/75. CT of the abdomen/pelvis was obtained given the symptoms, tenderness, and lactic acidosis. Discussed with Dr. Aleman, since we do not have gastroenterology on this weekend. He agrees that admitting the patient is appropriate and will be happy to consult and scope tomorrow if needed. Patient currently not actively bleeding. Will discuss with hospitalist. Patient is comfortable getting blood transfusion if/when indicated. I do not think she needs an emergent one since her blood pressure is good and her last hemoglobin was 8.2, but this will be followed. Lab Data Attestation: I reviewed the patient's lab results. Labs: Laboratory Results - last 24 hr 05/26/23 13:55 WBC 5.9 RBC 3.52 L Hgb 8.2 L Hct 27.6 L MCV 78.4 L MCH 23.3 L MCHC 29.7 L RDW Std Deviation 41.9 RDW Coeff of Kahlil 14.6 Plt Count 297 MPV 9.7 Immature Gran % (Auto) 0.300 Neut % (Auto) 63.3 Lymph % (Auto) 27.0 [place] % (Auto) 7.3 Eos % (Auto) 1.4 Baso % (Auto) 0.7 Absolute Neuts (auto) 3.7 Absolute Lymphs (auto) 1.59 Nucleated RBC % 0 Sodium 142 Potassium 3.2 L Chloride 111 H Carbon Dioxide 24.0 Anion Gap 7 BUN 16 Creatinine 0.91 Estim Creat Clear Calc 64.36 Est GFR (MDRD) Af Amer 78 Est GFR (MDRD) Non-Af 64 BUN/Creatinine Ratio 17.5 Glucose 152 H Lactic Acid 2.4 H* Calcium 8.3 L Total Bilirubin 0.40 AST 15 ALT 19 Alkaline Phosphatase 123 H Total Protein 5.9 L Albumin 3.2 Globulin 2.7 Albumin/Globulin Ratio 1.2 Radiography Diagnostic Testing: Clinical Impression(s) from Imaging Studies Abdomen/Pelvis CT 05/26/23 13:44 IMPRESSION: Proctocolitis. Electronically Signed: Vikram Spears MD at 15:39 EDT , Management Discussion w/another healthcare provider: Hospitalist and Head Shipper (Surgery Dr. Aleman) Discharge Plan Dx/Rx/DC Orders Clinical Impression: ABLA (acute blood loss anemia), shelter current use of anticoagulant, Acute lower gastrointestinal bleeding Disposition Disposition: Acute Care Hospital [facility]
[2023-05-26] MEDS: Ondansetron 4 MG/2 ML Vial IV (13:53)
[2023-05-26] MEDS: 0.9% Normal Saline (1000mL) 1,000 ML 1000 ML IV (13:53)
[2023-05-26] MEDS: Morphine 4 MG/ML Syringe IV ×2 (13:53→16:00)
[2023-05-26 14:02] LABS: Absolute Lymphocyte Count 1.59 X10^3/uL (0.83-4.51); Absolute Neutrophil Count 3.7 X10^3/uL (2.0-7.7); Basophil# 0.04 X10^3/uL; Basophil% 0.7 % (0-1); Eosinophil# 0.08 X10^3/uL; Eosinophils% 1.4 % (0-5); Hematocrit 27.6 % (37-47); Hemoglobin 8.2 g/dL (12.0-15.0); Lymphocyte # 1.59 X10^3/ul (0.83-4.51); Mean Corp Hgb Conc 29.7 g/dL (32-36); Mean Corpuscular Hgb 23.3 pg (27.0-32.0); Mean Corpuscular Volume 78.4 fL (81-99); Mean Platelet Vol. 9.7 fl (6.2-12.0); Monocyte# 0.43 X10^3/uL; Monocyte% 7.3 % (0-10); NRBC Flagged by Analyzer 0 % (0-5); Neutrophil # 3.73 X10^3/uL (2.7-7.7); Neutrophil % 63.3 % (47-70); Platelet Count 297 K/mm3 (150-450); RBC Distribution Width CV 14.6 % (11.6-14.6); RBC Distribution Width SD 41.9 fl (35.1-43.9); Red Blood Count 3.52 M/mm3 (4.2-5.4); White Blood Count 5.9 K/mm3 (4.4-11.0)
[2023-05-26 14:18] LABS: ALB/GLOB Ratio 1.2 RATIO (0.9-2.4); AST(SGOT) 15 U/L (15-37); Alanine Aminotransfer ALT/SGPT 19 U/L (13-56); Albumin, Serum 3.2 g/dL (3.2-5.0); Alkaline Phosphatase 123 U/L (45-117); Anion Gap 7 (5-15); BUN 16 mg/dL (7-18); BUN/Creat Ratio 17.5 RATIO (10-20); Calcium,Total 8.3 mg/dL (8.5-10.1); Chloride 111 mmol/L (98-107); Creatinine, Serum 0.91 mg/dL (0.55-1.02); EST Glomerular Filtration Rate 64 mL/min (>60); Est Glom Filt Rate - Afr Amer 78 mL/min (>60); Estimated Creatinine Clearance 64.36 ml/min; Globulin 2.7 g/dL (2.2-4.2); Glucose 152 mg/dL (74-106); Potassium 3.2 mmol/L (3.5-5.1); Protein, Total 5.9 g/dL (6.4-8.2); Sodium Level 142 mmol/L (136-145)
--- NOTE | 2023-05-26 14:31 | ED.RN ---
LAB CALLED [facility] OF 2.4. DR SALMERON
[2023-05-26 14:35] LABS: Lactic Acid 2.4 mmol/L (0.4-1.9)
--- NOTE | 2023-05-26 15:58 | NURSING ---
MED SURG SHIRLEY DORMAN, LOWER GI BLEEDING
--- NOTE | 2023-05-26 16:19 | HP.PCM.HOS_ITS ---
HPI - General General Date of Admission: 05/26/23 Date of Service: 05/26/23 Chief Complaint: GI bleed HPI Narrative ROMAIN LOMBARDO, is a 73 F who presents with a GI bleed. Symptoms began 1 week ago. Patient was hoping it would go away but. Despite the bleeding, she continues to take her apixaban. Did have worsening about a day but overall currently improving. She is starting to feel weak which is what presented her to come to the emergency room. In emergency room, patient's hemoglobin was noted to be 8.2. The ED physician reached out to Dr. Aleman, who would be willing to see the patient in consultation. Patient does complain of abdominal pain. She did have a CAT scan that did show proctocolitis. [facility] Medical History Acute lower gastrointestinal bleeding Ambulates with cane Asthma Atrial fibrillation Back pain BMI greater than 30 Colitis Community acquired pneumonia CVA (cerebral vascular accident) Diarrhea Essential (primary) hypertension GERD (gastroesophageal reflux disease) History of cataract History of Clostridium difficile infection History of hiatal hernia History of stress test HLD (hyperlipidemia) Migraine Non-smoker On amiodarone therapy Osteoarth NOS-up/arm Osteoarthritis Osteoporosis Paroxysmal atrial fibrillation Post-menopausal Secondary pulmonary arterial hypertension Suspected 2019 novel coronavirus infection (05/19/19) TIA (transient ischemic attack) Traumatic hematoma of abdominal wall 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 Wears partial dentures Home Medications epinephrine 0.3 mg/0.3 mL injection, auto-injector 0.3 mg IM X1 ALLERGIC REAC TIONS 05/04/13 [History Last Taken Unknown] loratadine 10 mg tablet 10 mg PO DAILY ALLERGIES 05/04/13 [History Last Taken 05/26/23] albuterol sulfate 90 mcg/actuation aerosol inhaler 2 puff inhalation Q6H PRN Sob &/Or Wheezing 12/26/15 [History Last Taken 09/09/19] meclizine 25 mg tablet 25 mg PO Q6H PRN Dizziness 03/28/16 [History Last Taken 05/26/23] fluticasone propionate 50 mcg/actuation nasal spray,suspension 2 spray NASAL DAILY PRN Allergies 07/02/18 [History Last Taken 09/15/21] albuterol sulfate 2.5 mg/3 mL (0.083 %) solution for nebulization 2.5 mg inhalation Q4H PRN Sob &/Or Wheezing 12/04/18 [History Last Taken 12/01/18] verapamil 240 mg tablet,extended release 240 mg PO DAILY BP #90 tabs 12/30/19 [Rx Last Taken 05/26/23] atorvastatin 40 mg tablet 40 mg PO DAILY cholesterol 11/18/21 [History Last Taken 05/26/23] dicyclomine 10 mg capsule 10 mg PO BID PRN abdominal discomfort #30 caps 02/02/22 [Rx Last Taken Unknown] pantoprazole 40 mg tablet,delayed release See Rx Instructions .Route .COMPLEX stomach #90 tabs 06/12/22 [Rx Last Taken 05/26/23] apixaban 5 mg tablet (Eliquis) 5 mg PO BID thinner #180 tabs 09/15/22 [Rx Last Taken 05/26/23] colestipol 1 gram tablet 1 g PO BID med 30 days #60 tabs 10/25/22 [Rx Last Taken 05/18/23] metoprolol tartrate 25 mg tablet 25 mg PO BID 30 days #60 tabs 02/20/23 [Rx Last Taken 05/26/23] Allergy/AdvReac Type Severity Reaction Status Date / Time adhesive tape Allergy Rash Verified 05/26/23 13:20 pepper (genus Capsicum) Allergy Hives Verified 05/26/23 13:20 propoxyphene HCl Allergy Rash Verified 05/26/23 13:20 [From Darvon] sulfamethoxazole Allergy Shortness Verified 05/26/23 13:20 [From Bactrim] of breath trimethoprim [From Bactrim] Allergy Shortness Verified 05/26/23 13:20 of breath venom-honey bee Allergy Anaphylaxis Verified 05/26/23 13:20 [bee venom (honey bee)] venom-wasp [wasp venom] Allergy Anaphylaxis Verified 05/26/23 13:20 Family History Father CAD (coronary artery disease) Brother Heart disease Surgical History History of cholecystectomy History of colonoscopy (11/21/21) history of mastoid tumor resection History of total hysterectomy Social History Smoking Status: Never smoker alcohol intake: current alcohol intake frequency: holidays/special occasions only substance use type: does not use caffeine: Yes Type: tea Number of servings: 2 ROS ROS Narrative Positive chills. No fever. No nausea or vomiting. All review of systems were negative except as mentioned above in the history of present illness and the other review of systems. Vital Signs Vital Signs Vital Signs: 05/26/23 13:18 05/26/23 15:18 05/26/23 16:02 Temperature 35.8 C L 36.6 C Temperature Source Temporal Pulse Rate 78 66 78 Respiratory Rate 16 18 18 Blood Pressure 174/60 H 151/75 H 153/85 H Blood Pressure Mean 98 100 107 Pulse Ox 99 98 100 Oxygen Delivery Method Room Air Room Air 05/26/23 16:04 Temperature 36.8 C Temperature Source Temporal Pulse Rate 74 Respiratory Rate 18 Blood Pressure 153/85 H Blood Pressure Mean 107 Pulse Ox 99 Oxygen Delivery Method Nasal Cannula Weight Weight: 93.44 kg Body Mass Index (BMI) 33.2 Physical Exam Narrative - Physical Exam General: Alert, Oriented x3, Cooperative. Patient is having active chills in the hospital. HEENT: Atraumatic, PERRLA, EOMI, Normocephalic Oral: Moist Mucosa, No Gingival or Mucosal Lesions/ Ulcerations Neck: Supple, No JVD, Negative Carotid Bruits Lungs: Clear to auscultation, Normal air movement Cardiovascular: Regular rate, Normal S1, Normal S2, No murmurs Abdomen: Bowel Sounds Present, Soft, tender in left lower quadrant with slight rebound., Non-Distended, No Hepato-splenomegaly Extremities: No clubbing, No cyanosis, No edema, Capillary Refill Less than 3 Seconds Skin: No rashes, No breakdown Musculoskeletal: No Tenderness to Palpation of Joints or Extremities Neurological: Neuro grossly intact Psych/Mental Status: Normal Affect, Appropriate Results Lab / Micro Data Attestation: I reviewed the patient's lab results. 05/26/23 13:55 05/26/23 13:55 Labs: Laboratory Results - last 24 hr 05/26/23 13:55: WBC 5.9, RBC 3.52 L, Hgb 8.2 L, Hct 27.6 L, MCV 78.4 L, MCH 23.3 L, MCHC 29.7 L, RDW Std Deviation 41.9, RDW Coeff of Kahlil 14.6, Plt Count 297, MPV 9.7, Immature Gran % (Auto) 0.300, Neut % (Auto) 63.3, Lymph % (Auto) 27.0, [place] % (Auto) 7.3, Eos % (Auto) 1.4, Baso % (Auto) 0.7, Absolute Neuts (auto) 3.7, Absolute Lymphs (auto) 1.59, Nucleated RBC % 0, Sodium 142, Potassium 3.2 L , Chloride 111 H, Carbon Dioxide 24.0, Anion Gap 7, BUN 16, Creatinine 0.91, Estim Creat Clear Calc 64.36, Est GFR (MDRD) Af Amer 78, Est GFR (MDRD) Non-Af 64, BUN/Creatinine Ratio 17.5, Glucose 152 H, Lactic Acid 2.4 H*, Calcium 8.3 L, Total Bilirubin 0.40, AST 15, ALT 19, Alkaline Phosphatase 123 H, Total Protein 5.9 L, Albumin 3.2, Globulin 2.7, Albumin/Globulin Ratio 1.2 05/26/23 16:00: Crossmatch See Detail Imaging Radiology Impression Abdomen/Pelvis CT 05/26/23 13:44 IMPRESSION: Proctocolitis. Electronically Signed: Vikram Spears MD at 15:39 EDT , Assessment & Plan Assessment/Plan (1) GI bleed: PLAN: Plan GI bleed * Secondary to proctocolitis complicated by her ongoing use of apixaban * Treat the underlying cause as well as holding her apixaban for now. * General surgery to see and tentative plan for colonoscopy/flexible sigmoidoscopy. * If worse, consider bleeding scan. Suspect acute blood loss anemia * Current hemoglobin is 8.2. Back on Fabiana of last year, it was 11. Do not have any hemoglobins in the interim. * Monitor hemoglobin. No indication to transfuse at this point in time. Goal is to keep hemoglobin greater than equal to 7. Proctocolitis * Suspect either infectious versus ischemic. Much less likely would be inflammatory. * Antibiotics with ciprofloxacin and metronidazole Chronic conditions * Paroxysmal atrial fibrillation: Hold apixaban. Continue with metoprolol titrate * Hypertension: Continue with verapamil * COPD: Stable continue bronchodilators. VTE prophylaxis: Chemical prophylaxis contraindicated in light of GI bleed. SCDs CODE STATUS: Addressed with patient. Patient was to be full code. Charges/Coding Visit Charges Inpatient E&M: 27930 Init Hosp L3
[2023-05-26 17:58] LABS: Reflex Lactate? Y
[2023-05-26 18:56] LABS: Hematocrit 24.9 % (37-47); Hemoglobin 7.6 g/dL (12.0-15.0)
[2023-05-26 19:00] LABS: Lactic Acid 0.9 mmol/L (0.4-1.9)
[2023-05-26] MEDS: Metoprolol Tartrate 25 MG Tablet PO (20:58)
[2023-05-26] MEDS: Ciprofloxacin 400 MG/200 ML BAG 200 MG IV (20:58)
[2023-05-26] MEDS: oxyCODONE 5 MG Tablet PO (21:10)
[2023-05-26] MEDS: metroNIDAZOLE 500 MG/100 ML BAG 100 MG IV (22:17)
[2023-05-26 23:11] LABS: Hematocrit 26.6 % (37-47); Hemoglobin 8.2 g/dL (12.0-15.0)
[2023-05-27 05:32] LABS: Absolute Lymphocyte Count 1.64 X10^3/uL (0.83-4.51); Absolute Neutrophil Count 2.3 X10^3/uL (2.0-7.7); Basophil# 0.04 X10^3/uL; Basophil% 0.9 % (0-1); Eosinophil# 0.18 X10^3/uL; Eosinophils% 3.8 % (0-5); Hematocrit 26.4 % (37-47); Hemoglobin 7.8 g/dL (12.0-15.0); Lymphocyte # 1.64 X10^3/ul (0.83-4.51); Mean Corp Hgb Conc 29.5 g/dL (32-36); Mean Corpuscular Hgb 23.6 pg (27.0-32.0); Mean Corpuscular Volume 79.8 fL (81-99); Mean Platelet Vol. 9.7 fl (6.2-12.0); Monocyte# 0.52 X10^3/uL; Monocyte% 11.1 % (0-10); NRBC Flagged by Analyzer 0 % (0-5); Neutrophil # 2.29 X10^3/uL (2.7-7.7); Platelet Count 249 K/mm3 (150-450); RBC Distribution Width CV 14.6 % (11.6-14.6); RBC Distribution Width SD 42.5 fl (35.1-43.9); Red Blood Count 3.31 M/mm3 (4.2-5.4); White Blood Count 4.7 K/mm3 (4.4-11.0)
[2023-05-27] MEDS: metroNIDAZOLE 500 MG/100 ML BAG 100 MG IV ×3 (06:04→20:46)
[2023-05-27 06:13] LABS: ALB/GLOB Ratio 1.1 RATIO (0.9-2.4); AST(SGOT) 16 U/L (15-37); Alanine Aminotransfer ALT/SGPT 17 U/L (13-56); Albumin, Serum 2.8 g/dL (3.2-5.0); Alkaline Phosphatase 111 U/L (45-117); Anion Gap 4 (5-15); BUN 11 mg/dL (7-18); BUN/Creat Ratio 16.5 RATIO (10-20); Calcium,Total 8.1 mg/dL (8.5-10.1); Chloride 110 mmol/L (98-107); Creatinine, Serum 0.67 mg/dL (0.55-1.02); EST Glomerular Filtration Rate 93 mL/min (>60); Est Glom Filt Rate - Afr Amer 112 mL/min (>60); Estimated Creatinine Clearance 73.21 ml/min; Globulin 2.5 g/dL (2.2-4.2); Glucose 95 mg/dL (74-106); Potassium 3.1 mmol/L (3.5-5.1); Protein, Total 5.3 g/dL (6.4-8.2); Sodium Level 141 mmol/L (136-145)
[2023-05-27 06:16] LABS: International Normalized Ratio 1.3; Prothrombin Time (Protime)PT. 15.9 SECONDS (11.7-14.9)
[2023-05-27 06:24] VITALS: BP 132/66; PULSE 75; RESP 18; TEMP 36.9; O2SAT 97
--- NOTE | 2023-05-27 08:34 | EX.PCM.CON.S ---
Assessment & Plan Assessment/Plan (1) Acute lower gastrointestinal bleeding: PLAN: The patient has been having blood per rectum all week. Her Eliquis was held yesterday. She did not have any bleeding overnight. CT scan showed colitis of the sigmoid colon possible infectious versus inflammatory or ischemic. The patient's white count and hemoglobin remained stable. This may be ischemic colitis and I would recommend continuing clear liquids until her pain completely resolves. Continue to monitor hemoglobin. Continue to hold Eliquis. I will keep her on clears for 24 more hours and decide tomorrow what to do. If she has any more rebleeding I will prep her tomorrow and take her for colonoscopy Sunday. If she continues to tolerate diet and does not have any bloody bowel movements I may advance her diet tomorrow. She just recently had a colonoscopy 2 years ago. Joesph Aleman MD Pager: [facility] [address] [place] [address], [address] [place] [phone] Office: HPI Consult Data Date of Consult: 05/27/23 HPI Narrative HPI Narrative: ROMAIN LOMBARDO, is a 73 F who presents with abdominal pain and bloody diarrhea. The patient reports that she has had lower abdominal pain and cramping and bloody bowel movements for a week. She has also continued the Eliquis she is on for A-fib. She has had GI bleed in the past and had a scope [address] Cowan. Yesterday she reported that her pain was in the lower abdomen today she reports that it is much improved. She denies any bloody bowel movements overnight. She is passing flatus. She denies any nausea or vomiting. She denies any fevers or chills. [facility] Medical History Acute lower gastrointestinal bleeding Ambulates with cane Asthma Atrial fibrillation Back pain BMI greater than 30 Colitis Community acquired pneumonia CVA (cerebral vascular accident) Diarrhea Essential (primary) hypertension GERD (gastroesophageal reflux disease) History of cataract History of Clostridium difficile infection History of hiatal hernia History of stress test HLD (hyperlipidemia) Migraine Non-smoker On amiodarone therapy Osteoarth NOS-up/arm Osteoarthritis Osteoporosis Paroxysmal atrial fibrillation Post-menopausal Secondary pulmonary arterial hypertension Suspected 2019 novel coronavirus infection (05/19/19) TIA (transient ischemic attack) Traumatic hematoma of abdominal wall 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 Wears partial dentures Home Medications epinephrine 0.3 mg/0.3 mL injection, auto-injector 0.3 mg IM X1 ALLERGIC REACTIONS 05/04/13 [History Last Taken Unknown] loratadine 10 mg tablet 10 mg PO DAILY ALLERGIES 05/04/13 [History Last Taken 05/26/23] albuterol sulfate 90 mcg/actuation aerosol inhaler 2 puff inhalation Q6H PRN Sob &/Or Wheezing 12/26/15 [History Last Taken 09/09/19] meclizine 25 mg tablet 25 mg PO Q6H PRN Dizziness 03/28/16 [History Last Taken 05/26/23] fluticasone propionate 50 mcg/actuation nasal spray,suspension 2 spray NASAL DAILY PRN Allergies 07/02/18 [History Last Taken 09/15/21] albuterol sulfate 2.5 mg/3 mL (0.083 %) solution for nebulization 2.5 mg inhalation Q4H PRN Sob &/Or Wheezing 12/04/18 [History Last Taken 12/01/18] verapamil 240 mg tablet,extended release 240 mg PO DAILY BP #90 tabs 12/30/19 [Rx Last Taken 05/26/23] atorvastatin 40 mg tablet 40 mg PO DAILY cholesterol 11/18/21 [History Last Taken 05/26/23] dicyclomine 10 mg capsule 10 mg PO BID PRN abdominal discomfort #30 caps 02/02/22 [Rx Last Taken Unknown] pantoprazole 40 mg tablet,delayed release See Rx Instructions .Route .COMPLEX stomach #90 tabs 06/12/22 [Rx Last Taken 05/26/23] apixaban 5 mg tablet (Eliquis) 5 mg PO BID thinner #180 tabs 09/15/22 [Rx Last Taken 05/26/23] colestipol 1 gram tablet 1 g PO BID med 30 days #60 tabs 10/25/22 [Rx Last Taken 05/18/23] metoprolol tartrate 25 mg tablet 25 mg PO BID 30 days #60 tabs 02/20/23 [Rx Last Taken 05/26/23] Allergy/AdvReac Type Severity Reaction Status Date / Time adhesive tape Allergy Rash Verified 05/26/23 13:20 pepper (genus Capsicum) Allergy Hives Verified 05/26/23 13:20 propoxyphene HCl Allergy Rash Verified 05/26/23 13:20 [From Darvon] sulfamethoxazole Allergy Shortness Verified 05/26/23 13:20 [From Bactrim] of breath trimethoprim [From Bactrim] Allergy Shortness Verified 05/26/23 13:20 of breath venom-honey bee Allergy Anaphylaxis Verified 05/26/23 13:20 [bee venom (honey bee)] venom-wasp [wasp venom] Allergy Anaphylaxis Verified 05/26/23 13:20 Family History Father CAD (coronary artery disease) Brother Heart disease Surgical History History of cholecystectomy History of colonoscopy (11/21/21) history of mastoid tumor resection History of total hysterectomy Social History Smoking Status: Never smoker alcohol intake: current alcohol intake frequency: holidays/special occasions only substance use type: does not use caffeine: Yes Type: tea Number of servings: 2 ROS Constitutional Constitutional: Denies anorexia, chills or fatigue Eyes Eyes: Denies blurry vision ENT HEENT: Denies abnormal hearing Cardiovascular Cardiovascular: Denies chest pain Respiratory/Chest Respiratory/Chest: Denies cough or dyspnea Gastrointestinal Gastrointestinal: Reports abdominal pain, diarrhea and hematochezia; Denies nausea or vomiting Genitourinary Genitourinary: Denies change in urinary stream Musculoskeletal Musculoskeletal: Denies abnormal gait Neurologic Neurologic: Reports dizziness Psychiatric Psychiatric: Denies anxiety Endocrine Endocrinology: Denies heat intolerance Hematologic/Lymphatic Hematologic/Lymphatic: Reports easy bleeding Physical Exam Const alert, oriented x3 and no apparent distress HEENT normocephalic Eyes PERRL Resp normal respiratory effort Cardio Rate: regular rate Rhythm: regular rhythm GI soft to palpation Palpation: tender LLQ and RLQ Lab / Micro Data 05/27/23 05:15 05/27/23 05:15 Labs: Laboratory Results - last 24 hr 05/26/23 13:55: WBC 5.9, RBC 3.52 L, Hgb 8.2 L, Hct 27.6 L, MCV 78.4 L, MCH 23.3 L, MCHC 29.7 L, RDW Std Deviation 41.9, RDW Coeff of Akhlil 14.6, Plt Count 297, MPV 9.7, Immature Gran % (Auto) 0.300, Neut % (Auto) 63.3, Lymph % (Auto) 27.0, [place] % (Auto) 7.3, Eos % (Auto) 1.4, Baso % (Auto) 0.7, Absolute Neuts (auto) 3.7, Absolute Lymphs (auto) 1.59, Nucleated RBC % 0, Sodium 142, Potassium 3.2 L, Chloride 111 H, Carbon Dioxide 24.0, Anion Gap 7, BUN 16, Creatinine 0.91, Estim Creat Clear Calc 64.36, Est GFR (MDRD) Af Amer 78, Est GFR (MDRD) Non-Af 64, BUN/Creatinine Ratio 17.5, Glucose 152 H, Lactic Acid 2.4 H*, Calcium 8.3 L, Total Bilirubin 0.40, AST 15, ALT 19, Alkaline Phosphatase 123 H, Total Protein 5.9 L, Albumin 3.2, Globulin 2.7, Albumin/Globulin Ratio 1.2 05/26/23 16:00: Blood Type O POSITIVE, Antibody Screen NEGATIVE, Crossmatch See Detail 05/26/23 18:27: Hgb 7.6 L, Hct 24.9 L, Lactic Acid 0.9 05/26/23 22:53: Hgb 8.2 L, Hct 26.6 L 05/27/23 05:15: WBC 4.7, RBC 3.31 L, Hgb 7.8 L, Hct 26.4 L, MCV 79.8 L, MCH 23.6 L, MCHC 29.5 L, RDW Std Deviation 42.5, RDW Coeff of Kahlil 14.6, Plt Count 249, MPV 9.7, Immature Gran % (Auto) 0.200, Neut % (Auto) 49.0, Lymph % (Auto) 35.0, [place] % (Auto) 11.1 H, Eos % (Auto) 3.8, Baso % (Auto) 0.9, Absolute Neuts (auto) 2.3, Absolute Lymphs (auto) 1.64, Nucleated RBC % 0, PT 15.9 H, INR 1.3, Sodium 141, Potassium 3.1 L, Chloride 110 H, Carbon Dioxide 27.0, Anion Gap 4 L, BUN 11, Creatinine 0.67, Estim Creat Clear Calc 73.21, Est GFR (MDRD) Af Amer 112, Est GFR (MDRD) Non-Af 93, BUN/Creatinine Ratio 16.5, Glucose 95, Calcium 8.1 L, Total Bilirubin 0.60, AST 16, ALT 17, Alkaline Phosphatase 111, Total Protein 5.3 L, Albumin 2.8 L, Globulin 2.5, Albumin/Globulin Ratio 1.1 Imaging Radiology Impression Abdomen/Pelvis CT 05/26/23 13:44 IMPRESSION: Proctocolitis. Electronically Signed: Vikram Spears MD at 15:39 EDT ,
[2023-05-27] MEDS: Verapamil SR 240 MG Tablet PO (10:11)
[2023-05-27] MEDS: Dicyclomine 10 MG Capsule PO (10:11)
[2023-05-27 10:12] VITALS: PULSE 75
[2023-05-27] MEDS: Metoprolol Tartrate 25 MG Tablet PO ×2 (10:12→20:47)
[2023-05-27] MEDS: Ciprofloxacin 400 MG/200 ML BAG 200 MG IV ×2 (10:12→22:06)
[2023-05-27] MEDS: Pantoprazole Sodium 40 MG Tablet PO (10:13)
--- NOTE | 2023-05-27 11:03 | PCM.PN.HOSP ---
Subjective Subjective Doing well, no issues overnight. Hemoglobin is 7.8 this morning Objective Data Objective Data Vital Signs: Vital Signs Temp Pulse Resp BP Pulse Ox O2 Del Method O2 Flow Rate 98.5 F 75 18 132/66 H 97 Nasal Cannula 2 05/27/23 06:24 05/27/23 10:12 05/27/23 06:24 05/27/23 06:24 05/27/23 06:24 05/27/23 06:24 05/27/23 02:00 Oxygen Flow Rate (L/min) 2 Oxygen Delivery Method Nasal Cannula Weight: 205 lb 15.999 oz Body Mass Index (BMI) 33.2 Intake & Output: Intake and Output for Last 24 Hours 05/26/23 05/27/23 05/28/23 03:59 03:59 03:59 Intake Total 1800 / 1800 350 / 350 Balance 1800 / 1800 350 / 350 Lab / Micro Data 05/27/23 05:15 05/27/23 05:15 Labs: Laboratory Results - last 24 hr 05/26/23 13:55: WBC 5.9, RBC 3.52 L, Hgb 8.2 L, Hct 27.6 L, MCV 78.4 L, MCH 23.3 L, MCHC 29.7 L, RDW Std Deviation 41.9, RDW Coeff of Kahlil 14.6, Plt Count 297, MPV 9.7, Immature Gran % (Auto) 0.300, Neut % (Auto) 63.3, Lymph % (Auto) 27.0, [place] % (Auto) 7.3, Eos % (Auto) 1.4, Baso % (Auto) 0.7, Absolute Neuts (auto) 3.7, Absolute Lymphs (auto) 1.59, Nucleated RBC % 0, Sodium 142, Potassium 3.2 L, Chloride 111 H, Carbon Dioxide 24.0, Anion Gap 7, BUN 16, Creatinine 0.91, Estim Creat Clear Calc 64.36, Est GFR (MDRD) Af Amer 78, Est GFR (MDRD) Non-Af 64, BUN/Creatinine Ratio 17.5, Glucose 152 H, Lactic Acid 2.4 H*, Calcium 8.3 L, Total Bilirubin 0.40, AST 15, ALT 19, Alkaline Phosphatase 123 H, Total Protein 5.9 L, Albumin 3.2, Globulin 2.7, Albumin/Globulin Ratio 1.2 05/26/23 16:00: Blood Type O POSITIVE, Antibody Screen NEGATIVE, Crossmatch See Detail 05/26/23 18:27: Hgb 7.6 L, Hct 24.9 L, Lactic Acid 0.9 05/26/23 22:53: Hgb 8.2 L, Hct 26.6 L 05/27/23 05:15: WBC 4.7, RBC 3.31 L, Hgb 7.8 L, Hct 26.4 L, MCV 79.8 L, MCH 23.6 L, MCHC 29.5 L, RDW Std Deviation 42.5, RDW Coeff of Kahlil 14.6, Plt Count 249, MPV 9.7, Immature Gran % (Auto) 0.200, Neut % (Auto) 49.0, Lymph % (Auto) 35.0, [place] % (Auto) 11.1 H, Eos % (Auto) 3.8, Baso % (Auto) 0.9, Absolute Neuts (auto) 2.3, Absolute Lymphs (auto) 1.64, Nucleated RBC % 0, PT 15.9 H, INR 1.3, Sodium 141, Potassium 3.1 L, Chloride 110 H, Carbon Dioxide 27.0, Anion Gap 4 L, BUN 11, Creatinine 0.67, Estim Creat Clear Calc 73.21, Est GFR (MDRD) Af Amer 112, Est GFR (MDRD) Non-Af 93, BUN/Creatinine Ratio 16.5, Glucose 95, Calcium 8.1 L, Total Bilirubin 0.60, AST 16, ALT 17, Alkaline Phosphatase 111, Total Protein 5.3 L, Albumin 2.8 L, Globulin 2.5, Albumin/Globulin Ratio 1.1 Radiography Diagnostic Testing: Radiology Impression Abdomen/Pelvis CT 05/26/23 13:44 IMPRESSION: Proctocolitis. Electronically Signed: Vikram Spears MD at 15:39 EDT , Physical Exam Narrative General: Alert, Oriented x3, Cooperative, No apparent distress HEENT: Atraumatic, PERRLA, EOMI, Normocephalic Oral: Moist Mucosa Neck: Supple, No JVD Lungs: Diminished, Normal air movement, No rhonchi, No wheeze, No rales Cardiovascular: Regular rate, Regular Rhythm, Normal S1, Normal S2, No murmurs Abdomen: Soft, Non Tender, Non-Distended, No Hepato-splenomegaly Extremities: No edema, Capillary Refill Less than 3 Seconds Skin: No rashes, No breakdown, pale Musculoskeletal: No Tenderness to Palpation of Joints or Extremities Neurological: No focal neurological deficits, Motor Exam 5/5 strength throughout, Sensory exam intact to light touch and pain Psych/Mental Status: Normal Affect, Appropriate Assessment & Plan Assessment/Plan (1) GI bleed: PLAN: Plan 1. Acute GI bleed secondary to likely ischemic colitis with acute blood loss anemia ? Based on CT findings likely has an ischemic colitis component ? Will hold her Eliquis, continue with PPI ? Tolerating clears and appreciate general surgery's assistance ? Will evaluate for possible scope in the next day or 2 ? Hemoglobin does appear to be stable for now and does not require transfusions ? Will continue with Cipro and Flagyl for another 48 hours as there is the possibility of an infectious colitis component 2. Paroxysmal A-fib/essential HTN/HLD ? Blood pressure stable, continue to hold Eliquis ? Can resume her home Lipitor as well as metoprolol and verapamil ? Will monitor make adjustments as necessary 3. COPD ? Not in exacerbation ? Will continue to monitor and continue with her home inhalers DVT: SCDs Charges/Coding Visit Charges Inpatient E&M: 30776 Subs Hosp L2
[2023-05-27 11:35] LABS: Hemoglobin 8.4 g/dL (12.0-15.0)
[2023-05-27 14:15] VITALS: BP 105/54; PULSE 60; RESP 16; TEMP 36.8; O2SAT 95
[2023-05-27 20:00] VITALS: BP 126/72; PULSE 75; RESP 16; TEMP 36.8; O2SAT 96
[2023-05-27 20:47] VITALS: BP 126/72; PULSE 75
[2023-05-27] MEDS: Acetaminophen 325 MG Tablet 650 MG PO (21:08)
[2023-05-27] MEDS: oxyCODONE 5 MG Tablet PO (21:09)
[2023-05-28] VITALS (8 sets, daily range): BP systolic 118–154; BP diastolic 65–81; PULSE 64–82; RESP 16; TEMP 36.4–37; O2SAT 95–98
[2023-05-28] MEDS: metroNIDAZOLE 500 MG/100 ML BAG 100 MG IV ×3 (05:35→22:47)
[2023-05-28 07:03] LABS: Absolute Lymphocyte Count 1.44 X10^3/uL (0.83-4.51); Absolute Neutrophil Count 1.6 X10^3/uL (2.0-7.7); Basophil# 0.05 X10^3/uL; Basophil% 1.3 % (0-1); Eosinophils% 5.3 % (0-5); Hematocrit 26.3 % (37-47); Hemoglobin 7.8 g/dL (12.0-15.0); Lymphocyte # 1.44 X10^3/ul (0.83-4.51); Lymphocyte % 38.3 % (19-41); Mean Corp Hgb Conc 29.7 g/dL (32-36); Mean Corpuscular Hgb 23.8 pg (27.0-32.0); Mean Corpuscular Volume 80.2 fL (81-99); Mean Platelet Vol. 10.1 fl (6.2-12.0); Monocyte# 0.42 X10^3/uL; Monocyte% 11.2 % (0-10); NRBC Flagged by Analyzer 0 % (0-5); Neutrophil # 1.64 X10^3/uL (2.7-7.7); Neutrophil % 43.6 % (47-70); Platelet Count 274 K/mm3 (150-450); RBC Distribution Width CV 14.6 % (11.6-14.6); RBC Distribution Width SD 42.4 fl (35.1-43.9); Red Blood Count 3.28 M/mm3 (4.2-5.4); White Blood Count 3.8 K/mm3 (4.4-11.0)
--- NOTE | 2023-05-28 07:08 | PN.SURG_ITS ---
Subjective Subjective Patient reports no bleeding overnight. She says her pain is improving in her lower abdomen. She tolerated clears with no nausea or vomiting. She says she is passing flatus. She has not had any regular bowel movements overnight. Objective Data Objective Data Vital Signs: Vital Signs Temp Pulse Resp BP Pulse Ox O2 Del Method O2 Flow Rate 98.5 F 82 16 154/67 H 95 Room Air 2 05/28/23 02:00 05/28/23 02:00 05/28/23 02:00 05/28/23 02:00 05/28/23 02:00 05/28/23 02:00 05/27/23 14:15 Oxygen Flow Rate (L/min) 2 Oxygen Delivery Method Room Air Weight: 205 lb 15.999 oz Body Mass Index (BMI) 33.2 Intake & Output: Intake and Output for Last 24 Hours 05/26/23 05/27/23 05/28/23 23:59 23:59 23:59 Intake Total 1300 / 1800 1450 / 1700 700 / 700 Balance 1300 / 1800 1450 / 1700 700 / 700 Lab / Micro Data 05/28/23 06:21 05/27/23 05:15 Labs: Laboratory Results - last 24 hr 05/27/23 11:28: Hgb 8.4 L, Hct 28.0 L 05/28/23 06:21: WBC 3.8 L, RBC 3.28 L, Hgb 7.8 L, Hct 26.3 L, MCV 80.2 L, MCH 23.8 L, MCHC 29.7 L, RDW Std Deviation 42.4, RDW Coeff of Kahlil 14.6, Plt Count 274, MPV 10.1, Immature Gran % (Auto) 0.300, Neut % (Auto) 43.6 L, Lymph % (Auto) 38.3, [place] % (Auto) 11.2 H, Eos % (Auto) 5.3 H, Baso % (Auto) 1.3 H, Absolute Neuts (auto) 1.6 L, Absolute Lymphs (auto) 1.44, Nucleated RBC % 0 Physical Exam Const oriented x3 and no apparent distress Resp normal respiratory effort GI soft to palpation Palpation: tender suprapubic Assessment & Plan Assessment/Plan (1) GI bleed: (2) Ischemic colitis: PLAN: Plan The patient did not have any GI bleeding overnight. Her Eliquis continues to be held. The patient says that her pain is continuing to improve and she is tolerating clears. I would like to continue clear liquids until the pain com pletely resolves as pushing the colon to early may make the ischemic colitis worse. Hemoglobin is stable in the 8 range. Continue to hold blood thinners. If her pain resolves tomorrow or later today I will advance her diet. Continue antibiotics for 24 more hours. If she rebleeds I will prep her and plan for scope. Patient just had a colonoscopy 2 years ago. I will discuss with GI as well. Joesph Aleman MD Pager: [facility] [address] [place] [address], [address] [place] [address] Office:
[2023-05-28 07:32] LABS: Anion Gap 4 (5-15); BUN 8 mg/dL (7-18); BUN/Creat Ratio 11.1 RATIO (10-20); Calcium,Total 8.1 mg/dL (8.5-10.1); Chloride 111 mmol/L (98-107); Creatinine, Serum 0.72 mg/dL (0.55-1.02); EST Glomerular Filtration Rate 85 mL/min (>60); Est Glom Filt Rate - Afr Amer 102 mL/min (>60); Estimated Creatinine Clearance 73.21 ml/min; Glucose 101 mg/dL (74-106); Sodium Level 143 mmol/L (136-145)
[2023-05-28] MEDS: Potassium Chloride Oral Tablet 20 MEQ 60 MEQ PO (10:00)
[2023-05-28] MEDS: Verapamil SR 240 MG Tablet PO (10:02)
[2023-05-28] MEDS: Metoprolol Tartrate 25 MG Tablet PO ×2 (10:03→22:45)
[2023-05-28] MEDS: Pantoprazole Sodium 40 MG Tablet PO (10:03)
[2023-05-28] MEDS: Ciprofloxacin 400 MG/200 ML BAG 200 MG IV (10:07)
--- NOTE | 2023-05-28 12:50 | CASEMGMT ---
RN?CM?SURVEY CHIEF?CM?to room to meet with patient for initial transition planning/care coordination?assessment.?RN?CM?introduced self and role at [facility].? Pt voices understanding and consents to?assessment?at this time.? Pt sitting up in chair in room in no distress at this time.? Pt is A/O at this time and answers all questions appropriately.?? Care providers, pharmacy, and demographics verified/updated at this time. PCP: Dr Rivera Specialists: Dr Damico-cardiology, Dr Velazquez (Has appt tomorrow, but she states she will call and cx it today. She denies needing assistance), Dr Tobar-ortho, and goes to a Foot/Ankle specialist. Preferred Pharmacy: [facility] @ id Insurance: [facility] Dual Prescription Benefit:?Yes LW/HCPOA: Pt does not have AD in place and would like to complete. Rosa LADD, made aware. Pt made aware if SW unable to complete these w/her while @ [facility], that these can be completed as an OP. She voices understanding. LNOK: 4 adult children: Dtr's Anne-Marie and Suma live nearby and are supportive. Son, Yoel, lives nearby and is supportive. Pt also has another daughter, Anaya, that she has not talked to in about 10 years. Living Arrangements: Lives alone in 2-story home w/3-4 steps to enter w/railing. Bedroom and bathroom are on 2nd floor. No bathroom on main floor. Pt states she does okay w/the stairs. Pt states she is independent w/ADLS's, IADL's, does her own grocery shopping, and manages her own medications. She states her daughters Shantal and son, Yoel, all live 2-10 min away and are supportive. She also has a neighbor she can call if she needs assistance. Transportation:?Pt, family can assist if needed. DME: States has the following DME:?shower chair, quad cane, walker, medical alert, nebulizer, pulse ox, and BP machine. Pt did have O2 but she no longer has it (as of ). Pt states no need for further DME at this time.? HHC/SNF: No hx of either. Discussed discharge planning. Pt wishes to return home. Pt wishes to return home and states has no concerns with going home at time of discharge.? CM?to follow for any further discharge planning/needs.? Pt voices no further concerns/needs at this time.? Advised pt to ask for?CM?if any further questions/concerns/needs arise.? Voices understanding. PLAN:??Home w/family support and discharge plans in place. Alphonso BSN?RN?CM
--- NOTE | 2023-05-28 15:23 | PCM.PROGNOTE ---
Subjective Subjective Patient seen and examined. She says she is feeling better today. Her abdominal pain has improved. She is tolerating a clear liquid diet. Review of systems otherwise negative. Objective Data Objective Data Vital Signs: Vital Signs Temp Pulse Resp BP Pulse Ox O2 Del Method O2 Flow Rate 97.7 F L 64 16 137/65 H 97 Room Air 2 05/28/23 13:11 05/28/23 13:11 05/28/23 13:11 05/28/23 13:11 05/28/23 13:11 05/28/23 13:11 05/28/23 07:55 Oxygen Flow Rate (L/min) 2 Oxygen Delivery Method Room Air Weight: 205 lb 15.999 oz Body Mass Index (BMI) 33.2 Intake & Output: Intake and Output for Last 24 Hours 05/26/23 05/27/23 05/28/23 23:59 23:59 23:59 Intake Total 1300 / 1800 1450 / 1700 1500 / 1500 Balance 1300 / 1800 1450 / 1700 1500 / 1500 Lab / Micro Data 05/28/23 06:21 05/28/23 06:21 Labs: Laboratory Results - last 24 hr 05/28/23 06:21: WBC 3.8 L, RBC 3.28 L, Hgb 7.8 L, Hct 26.3 L, MCV 80.2 L, MCH 23.8 L, MCHC 29.7 L, RDW Std Deviation 42.4, RDW Coeff of Kahlil 14.6, Plt Count 274, MPV 10.1, Immature Gran % (Auto) 0.300, Neut % (Auto) 43.6 L, Lymph % (Auto) 38.3, [place] % (Auto) 11.2 H, Eos % (Auto) 5.3 H, Baso % (Auto) 1.3 H, Absolute Neuts (auto) 1.6 L, Absolute Lymphs (auto) 1.44, Nucleated RBC % 0, Sodium 143, Potassium 3.0 L, Chloride 111 H, Carbon Dioxide 28.0, Anion Gap 4 L, BUN 8, Creatinine 0.72, Estim Creat Clear Calc 73.21, Est GFR (MDRD) Af Amer 102, Est GFR (MDRD) Non-Af 85, BUN/Creatinine Ratio 11.1, Glucose 101, Calcium 8.1 L Physical Exam Const alert, no apparent distress and well nourished General Appearance: cooperative and well developed HEENT normocephalic, head/scalp atraumatic and moist oral mucous membranes Eyes PERRL and EOMs intact bilaterally Neck no lymphadenopathy and supple Lymph Lymphatic: no lymphadenopathy noted and no lymphedema noted Resp normal respiratory effort, normal air movement and clear to auscultation bilaterally Cardio regular rate, regular rhythm, S1 normal heart sound, S2 normal heart sound and no murmurs GI normal to inspection, nondistended, normoactive bowel sounds and soft to palpation GI Narrative: Mildly distended abdomen Extremity normal capillary refill, no clubbing, cyanosis or edema and no calf tenderness General Extremity: no tenderness to palpation of joints or extremities Skin General Skin Exam: no breakdown Neuro CN's II-XII intact bilaterally, no focal motor deficits, no sensory deficits noted and deep tendon reflexes 2+ bilaterally Motor Exam: strength 5/5 throughout and general weakness Psych thought process normal and cooperative Appearance: appropriate Assessment & Plan Assessment/Plan (1) Ischemic colitis: (2) GI bleed: PLAN: Plan #Acute lower GI bleed Thought to be due to ischemic colitis. CT of the abdomen and pelvis showed evidence of ischemic colitis. Eliquis currently on hold. On PPI. Tolerating clear liquid diet. On Cipro and Flagyl. General surgery on board. #Acute blood loss anemia due to GI bleed: Hemoglobin today 7.8. Monitor closely and transfuse if hemoglobin falls less than 7. #Hypokalemia: Potassium is 3. Replace aggressively and trend. #Paroxysmal A-fib: Eliquis currently on hold. On metoprolol #Hypertension: On metoprolol and verapamil #Hyperlipidemia: on statin. #COPD: Not in exacerbation. Breathing treatments bronchodilators. # DVT Prophylaxis: SCDs Charges/Coding Visit Charges Inpatient E&M: 69979 Subs Hosp L2
[2023-05-29] VITALS (8 sets, daily range): BP systolic 117–167; BP diastolic 62–75; PULSE 60–85; RESP 16–18; TEMP 36.6–36.9; O2SAT 92–96
[2023-05-29] MEDS: Ciprofloxacin 400 MG/200 ML BAG 200 MG IV ×3 (00:05→22:41)
[2023-05-29] MEDS: metroNIDAZOLE 500 MG/100 ML BAG 100 MG IV ×3 (05:23→21:01)
[2023-05-29 06:53] LABS: Absolute Lymphocyte Count 1.27 X10^3/uL (0.83-4.51); Basophil# 0.05 X10^3/uL; Basophil% 1.2 % (0-1); Eosinophil# 0.21 X10^3/uL; Eosinophils% 5.2 % (0-5); Hematocrit 26.7 % (37-47); Lymphocyte # 1.27 X10^3/ul (0.83-4.51); Lymphocyte % 31.4 % (19-41); Mean Corpuscular Volume 79.9 fL (81-99); Mean Platelet Vol. 10.3 fl (6.2-12.0); Monocyte# 0.53 X10^3/uL; Monocyte% 13.1 % (0-10); NRBC Flagged by Analyzer 0 % (0-5); Neutrophil # 1.98 X10^3/uL (2.7-7.7); Neutrophil % 48.9 % (47-70); Platelet Count 303 K/mm3 (150-450); RBC Distribution Width CV 14.9 % (11.6-14.6); RBC Distribution Width SD 43.2 fl (35.1-43.9); Red Blood Count 3.34 M/mm3 (4.2-5.4); White Blood Count 4.1 K/mm3 (4.4-11.0)
--- NOTE | 2023-05-29 07:01 | PN.SURG_ITS ---
Subjective Subjective The patient is not reporting any pain this morning. She thinks she needs to have a bowel movement. She denies any nausea or vomiting. She tolerated clears well. Objective Data Objective Data Vital Signs: Vital Signs Temp Pulse Resp BP Pulse Ox O2 Del Method O2 Flow Rate 98.4 F 85 16 161/75 H 94 Room Air 2 05/29/23 04:45 05/29/23 04:45 05/29/23 04:45 05/29/23 04:45 05/29/23 04:45 05/29/23 04:45 05/28/23 07:55 Oxygen Flow Rate (L/min) 2 Oxygen Delivery Method Room Air Weight: 205 lb 15.999 oz Body Mass Index (BMI) 33.2 Intake & Output: Intake and Output for Last 24 Hours 05/27/23 05/28/23 05/29/23 23:59 23:59 23:59 Intake Total 1450 / 1700 2100 / 2100 1000 / 1000 Balance 1450 / 1700 2100 / 2100 1000 / 1000 Lab / Micro Data 05/29/23 05:52 05/28/23 06:21 Labs: Laboratory Results - last 24 hr 05/28/23 06:21: WBC 3.8 L, RBC 3.28 L, Hgb 7.8 L, Hct 26.3 L, MCV 80.2 L, MCH 23.8 L, MCHC 29.7 L, RDW Std Deviation 42.4, RDW Coeff of Kahlil 14.6, Plt Count 274, MPV 10.1, Immature Gran % (Auto) 0.300, Neut % (Auto) 43.6 L, Lymph % (Auto) 38.3, [place] % (Auto) 11.2 H, Eos % (Auto) 5.3 H, Baso % (Auto) 1.3 H, Absolute Neuts (auto) 1.6 L, Absolute Lymphs (auto) 1.44, Nucleated RBC % 0, Sodium 143, Potassium 3.0 L, Chloride 111 H, Carbon Dioxide 28.0, Anion Gap 4 L, BUN 8, Creatinine 0.72, Estim Creat Clear Calc 73.21, Est GFR (MDRD) Af Amer 102, Est GFR (MDRD) Non-Af 85, BUN/Creatinine Ratio 11.1, Glucose 101, Calcium 8.1 L 05/29/23 05:52: WBC 4.1 L, RBC 3.34 L, Hgb 8.0 L, Hct 26.7 L, MCV 79.9 L, MCH 24.0 L, MCHC 30.0 L, RDW Std Deviation 43.2, RDW Coeff of Kahlil 14.9 H, Plt Count 303, MPV 10.3, Immature Gran % (Auto) 0.200, Neut % (Auto) 48.9, Lymph % (Auto) 31.4, [place] % (Auto) 13.1 H, Eos % (Auto) 5.2 H, Baso % (Auto) 1.2 H, Absolute Neuts (auto) 2.0, Absolute Lymphs (auto) 1.27, Nucleated RBC % 0 Physical Exam Const oriented x3 and no apparent distress Resp normal respiratory effort GI soft to palpation and non-tender Assessment & Plan Assessment/Plan (1) Ischemic colitis: PLAN: The patient is not having pain and actually feels like she may have a bowel movement today. I will start her on a transitional diet as long as she tolerates this she can start her Eliquis tonight. If she tolerates diet today and Eliquis tonight with no bleeding she can likely be discharged home tomorrow. Joesph Aleman MD Pager: [facility] [address] [place] [address], [address] [place] [address] Office:
[2023-05-29 07:40] LABS: Anion Gap 5 (5-15); BUN 6 mg/dL (7-18); BUN/Creat Ratio 8.8 RATIO (10-20); Calcium,Total 8.4 mg/dL (8.5-10.1); Chloride 111 mmol/L (98-107); Creatinine, Serum 0.68 mg/dL (0.55-1.02); EST Glomerular Filtration Rate 90 mL/min (>60); Est Glom Filt Rate - Afr Amer 108 mL/min (>60); Estimated Creatinine Clearance 73.21 ml/min; Glucose 103 mg/dL (74-106); Potassium 3.7 mmol/L (3.5-5.1); Sodium Level 143 mmol/L (136-145)
[2023-05-29] MEDS: Verapamil SR 240 MG Tablet PO (08:23)
[2023-05-29] MEDS: Pantoprazole Sodium 40 MG Tablet PO (08:24)
[2023-05-29] MEDS: Metoprolol Tartrate 25 MG Tablet PO ×2 (08:24→21:02)
[2023-05-29] MEDS: 0.9% Saline Lock 10 ML Syringe IV (09:49)
[2023-05-29] MEDS: Ondansetron 4 MG/2 ML Vial IV (09:49)
--- NOTE | 2023-05-29 10:58 | PN_ITS ---
Subjective Subjective Patient seen and examined. She had no active complaints and she felt well. Review of systems otherwise negative. She was started on transitional diet today. Patient also due to start Eliquis this evening and if patient does not bleed to consider discharge tomorrow. Objective Data Objective Data Vital Signs: Vital Signs Temp Pulse Resp BP Pulse Ox O2 Del Method O2 Flow Rate 97.9 F 79 18 167/62 H 95 Nasal Cannula 2 05/29/23 08:20 05/29/23 08:24 05/29/23 08:20 05/29/23 08:20 05/29/23 09:16 05/29/23 09:16 05/29/23 09:16 Oxygen Flow Rate (L/min) 2 Oxygen Delivery Method Nasal Cannula Weight: 205 lb 15.999 oz Body Mass Index (BMI) 33.2 Intake & Output: Intake and Output for Last 24 Hours 05/27/23 05/28/23 05/29/23 23:59 23:59 23:59 Intake Total 1450 / 1700 2100 / 2100 1300 / 1300 Balance 1450 / 1700 2100 / 2100 1300 / 1300 Lab / Micro Data 05/29/23 05:52 05/29/23 05:52 Labs: Laboratory Results - last 24 hr 05/29/23 05:52: WBC 4.1 L, RBC 3.34 L, Hgb 8.0 L, Hct 26.7 L, MCV 79.9 L, MCH 24.0 L, MCHC 30.0 L, RDW Std Deviation 43.2, RDW Coeff of Kahlil 14.9 H, Plt Count 303, MPV 10.3, Immature Gran % (Auto) 0.200, Neut % (Auto) 48.9, Lymph % (Auto) 31.4, [place] % (Auto) 13.1 H, Eos % (Auto) 5.2 H, Baso % (Auto) 1.2 H, Absolute Neuts (auto) 2.0, Absolute Lymphs (auto) 1.27, Nucleated RBC % 0, Sodium 143, Potassium 3.7, Chloride 111 H, Carbon Dioxide 27.0, Anion Gap 5, BUN 6 L, Creatinine 0.68, Estim Creat Clear Calc 73.21, Est GFR (MDRD) Af Amer 108, Est GFR (MDRD) Non-Af 90, BUN/Creatinine Ratio 8.8 L, Glucose 103, Calcium 8.4 L Physical Exam Const alert, oriented x3, no apparent distress and well nourished General Appearance: cooperative and well developed HEENT normocephalic, head/scalp atraumatic and moist oral mucous membranes Eyes PERRL and EOMs intact bilaterally Neck no lymphadenopathy and supple Lymph Lymphatic: no lymphadenopathy noted and no lymphedema noted Resp normal respiratory effort, normal air movement and clear to auscultation bilaterally Cardio regular rate, regular rhythm, S1 normal heart sound, S2 normal heart sound and no murmurs GI normal to inspection, nondistended, normoactive bowel sounds and soft to palpation GI Narrative: Mildly distended abdomen Extremity normal capillary refill, no clubbing, cyanosis or edema and no calf tenderness General Extremity: no tenderness to palpation of joints or extremities Skin General Skin Exam: no breakdown Neuro CN's II-XII intact bilaterally, no focal motor deficits, no sensory deficits noted and deep tendon reflexes 2+ bilaterally Motor Exam: strength 5/5 throughout and general weakness Psych thought process normal and cooperative Appearance: appropriate Assessment & Plan Assessment/Plan (1) Ischemic colitis: (2) GI bleed: PLAN: Plan #Acute lower GI bleed * Thought to be due to ischemic colitis. CT of the abdomen and pelvis showed evidence of ischemic colitis. * Eliquis currently on hold. On PPI. Tolerating clear liquid diet. Advance to transitional diet today. * On Cipro and Flagyl. General surgery on board. #Acute blood loss anemia due to GI bleed: Hemoglobin today is 8. Monitor closely and transfuse if hemoglobin falls less than 7. #Hypokalemia: Resolved. Potassium is 3.7 today. #Paroxysmal A-fib: Eliquis currently on hold. On metoprolol. Per general surgery, resume Eliquis tonight. #Hypertension: On metoprolol and verapamil #Hyperlipidemia: on statin. #COPD: Not in exacerbation. Breathing treatments bronchodilators. # DVT Prophylaxis: SCDs ' Disposition: For discharge tomorrow if she does not bleed after resuming Eliq uis. Charges/Coding Visit Charges Inpatient E&M: 32432 Subs Hosp L2
--- NOTE | 2023-05-29 12:02 | NURSING ---
Pt told this RN that she was experiencing intermittent numbness down her R arm into her hand. Says it comes and goes and thinks she may have slept on it wrong. Hand grasps equal, smile even, pedal push and pulls equal. This RN made Dr Griffin aware- Dr Griffin said to monitor. Will continue to monitor
[2023-05-29] MEDS: APIXABAN 5 MG TABLET PO (21:02)
[2023-05-30 03:00] VITALS: BP 139/71; PULSE 73; RESP 18; TEMP 36.6; O2SAT 95
[2023-05-30] MEDS: metroNIDAZOLE 500 MG/100 ML BAG 100 MG IV (06:04)
[2023-05-30 06:55] LABS: Anion Gap 5 (5-15); BUN 10 mg/dL (7-18); BUN/Creat Ratio 14.2 RATIO (10-20); Calcium,Total 8.1 mg/dL (8.5-10.1); Chloride 111 mmol/L (98-107); EST Glomerular Filtration Rate 87 mL/min (>60); Est Glom Filt Rate - Afr Amer 105 mL/min (>60); Estimated Creatinine Clearance 73.21 ml/min; Glucose 104 mg/dL (74-106); Potassium 3.8 mmol/L (3.5-5.1); Sodium Level 143 mmol/L (136-145)
[2023-05-30 07:15] LABS: Absolute Neutrophil Count 2.7 X10^3/uL (2.0-7.7); Basophil# 0.03 X10^3/uL; Basophil% 0.6 % (0-1); Eosinophils% 4.2 % (0-5); Hematocrit 26.7 % (37-47); Hemoglobin 8.1 g/dL (12.0-15.0); Lymphocyte % 27.3 % (19-41); Mean Corp Hgb Conc 30.3 g/dL (32-36); Mean Corpuscular Hgb 24.3 pg (27.0-32.0); Mean Corpuscular Volume 80.2 fL (81-99); Mean Platelet Vol. 10.1 fl (6.2-12.0); Monocyte# 0.52 X10^3/uL; Monocyte% 10.9 % (0-10); NRBC Flagged by Analyzer 0 % (0-5); Neutrophil # 2.71 X10^3/uL (2.7-7.7); Neutrophil % 56.8 % (47-70); Platelet Count 307 K/mm3 (150-450); RBC Distribution Width SD 43.8 fl (35.1-43.9); Red Blood Count 3.33 M/mm3 (4.2-5.4); White Blood Count 4.8 K/mm3 (4.4-11.0)
[2023-05-30 07:45] VITALS: BP 133/66; PULSE 73; RESP 16; TEMP 36.6
[2023-05-30 07:47] VITALS: PULSE 73; RESP 16; O2SAT 96
[2023-05-30 08:00] VITALS: O2SAT 94
[2023-05-30] MEDS: Verapamil SR 240 MG Tablet PO (09:14)
[2023-05-30] MEDS: Pantoprazole Sodium 40 MG Tablet PO (09:14)
[2023-05-30 09:15] VITALS: BP 133/66; PULSE 73
[2023-05-30] MEDS: Metoprolol Tartrate 25 MG Tablet PO (09:15)
[2023-05-30] MEDS: APIXABAN 5 MG TABLET PO (09:16)
[2023-05-30] MEDS: Ciprofloxacin 400 MG/200 ML BAG 200 MG IV (09:16)
--- NOTE | 2023-05-30 09:56 | PCM.PN.SRG ---
Subjective Subjective Patient reports she is tolerating transitional diet and she did have a bowel movement last night with no blood in it. She denies abdominal pain or nausea. Objective Data Objective Data Vital Signs: Vital Signs Temp Pulse Resp BP Pulse Ox O2 Del Method O2 Flow Rate 97.9 F 73 16 133/66 H 94 Room Air 2 05/30/23 07:45 05/30/23 09:15 05/30/23 07:47 05/30/23 09:15 05/30/23 08:00 05/30/23 08:15 05/29/23 09:16 Oxygen Flow Rate (L/min) 2 Oxygen Delivery Method Room Air Weight: 205 lb 15.999 oz Body Mass Index (BMI) 33.2 Intake & Output: Intake and Output for Last 24 Hours 05/28/23 05/29/23 05/30/23 23:59 23:59 23:59 Intake Total 2099 / 2099 1500 / 2250 1400 / 1400 Balance 2100 / 2100 1500 / 2250 1400 / 1400 Lab / Micro Data 05/30/23 06:14 05/30/23 06:14 Labs: Laboratory Results - last 24 hr 05/30/23 06:14: WBC 4.8, RBC 3.33 L, Hgb 8.1 L, Hct 26.7 L, MCV 80.2 L, MCH 24.3 L, MCHC 30.3 L, RDW Std Deviation 43.8, RDW Coeff of Kahlil 15.0 H, Plt Count 307, MPV 10.1, Immature Gran % (Auto) 0.200, Neut % (Auto) 56.8, Lymph % (Auto) 27.3, [place] % (Auto) 10.9 H, Eos % (Auto) 4.2, Baso % (Auto) 0.6, Absolute Neuts (auto) 2.7, Absolute Lymphs (auto) 1.30, Nucleated RBC % 0, Sodium 143, Potassium 3.8, Chloride 111 H, Carbon Dioxide 27.0, Anion Gap 5, BUN 10, Creatinine 0.70, Estim Creat Clear Calc 73.21, Est GFR (MDRD) Af Amer 105, Est GFR (MDRD) Non-Af 87, BUN/Creatinine Ratio 14.2, Glucose 104, Calcium 8.1 L Physical Exam Const oriented x3 Resp normal respiratory effort GI soft to palpation and non-tender Assessment & Plan Assessment/Plan (1) Ischemic colitis: (2) GI bleed: QUALIFIERS: GI bleed type/associated pathology: unspecified gastrointestinal hemorrhage type Qualified Code(s): K92.2 - Gastrointestinal hemorrhage, unspecified PLAN: Plan The patient seems to be doing well. She was started on transitional diet yesterday which she tolerated and restarted on Eliquis yesterday evening. She had a bowel movement overnight with no bleeding. She reports that her pain is resolved. She may be discharged home today and follow-up with me in 2 weeks to discuss possible colonoscopy. Joesph Aleman MD Pager: [facility] [address] [place] [address], [address] [place] [address] Office:
--- NOTE | 2023-05-30 10:11 | DS.PCM_ITS ---
Providers Date of Admission: 05/26/23 Primary Care Physician: Dr. aVlencia Rivera MD Consultations 05/26/23 17:21 Consult: General Surgery Routine Consulting Provider: Joesph Aleman Reason for Consult: GI bleed EMERGENT Consult: No MD Notified: Yes Date Notified: 05/26/23 Time Notified: 15:47 Method of Notification: ED Physician Initiated Reason For Visit: GI BLEED Diagnosis Discharge Diagnosis (1) Ischemic colitis: Status: Acute Code(s): K55.9 - Vascular disorder of intestine, unspecified (2) GI bleed: Status: Acute Code(s): K92.2 - Gastrointestinal hemorrhage, unspecified Qualifiers: GI bleed type/associated pathology: unspecified gastrointestinal hemorrhage type Qualified Code(s): K92.2 - Gastrointestinal hemorrhage, unspecified Plan #Acute lower GI bleed * Thought to be due to ischemic colitis. CT of the abdomen and pelvis showed evidence of ischemic colitis. * Eliquis currently on hold. On PPI. Tolerating clear liquid diet. Advance to transitional diet today. * On Cipro and Flagyl. General surgery on board. #Acute blood loss anemia due to GI bleed: Hemoglobin today is 8. Monitor closely and transfuse if hemoglobin falls less than 7. #Hypokalemia: Resolved. Potassium is 3.7 today. #Paroxysmal A-fib: Eliquis currently on hold. On metoprolol. Per general surgery, resume Eliquis tonight. #Hypertension: On metoprolol and verapamil #Hyperlipidemia: on statin. #COPD: Not in exacerbation. Breathing treatments bronchodilators. # DVT Prophylaxis: SCDs ' Disposition: For discharge tomorrow if she does not bleed after resuming Eliquis. Medications at Discharge Home Medications epinephrine 0.3 mg/0.3 mL injection, auto-injector 0.3 mg IM X1 ALLERGIC REACTIONS 05/04/13 loratadine 10 mg tablet 10 mg PO DAILY ALLERGIES 05/04/13 albuterol sulfate 90 mcg/actuation aerosol inhaler 2 puff inhalation Q6H PRN Sob &/Or Wheezing 12/26/15 meclizine 25 mg tablet 25 mg PO Q6H PRN Dizziness 03/28/16 fluticasone propionate 50 mcg/actuation nasal spray,suspension 2 spray NASAL DAILY PRN Allergies 07/02/18 albuterol sulfate 2.5 mg/3 mL (0.083 %) solution for nebulization 2.5 mg inh alation Q4H PRN Sob &/Or Wheezing 12/04/18 verapamil 240 mg tablet,extended release 240 mg PO DAILY BP #90 tabs 12/30/19 atorvastatin 40 mg tablet 40 mg PO DAILY cholesterol 11/18/21 dicyclomine 10 mg capsule 10 mg PO BID PRN abdominal discomfort #30 caps 02/02/22 pantoprazole 40 mg tablet,delayed release See Rx Instructions .Route .COMPLEX stomach #90 tabs 06/12/22 apixaban 5 mg tablet (Eliquis) 5 mg PO BID thinner #180 tabs 09/15/22 colestipol 1 gram tablet 1 g PO BID med 30 days #60 tabs 10/25/22 metoprolol tartrate 25 mg tablet 25 mg PO BID 30 days #60 tabs 02/20/23 Weight / BMI Weight Weight: 205 lb 15.999 oz Body Mass Index (BMI) 33.2 ABG / Lab / Microbiology Data 05/30/23 06:14 05/30/23 06:14 Laboratory: Laboratory Results - last 24 hr 05/30/23 06:14: WBC 4.8, RBC 3.33 L, Hgb 8.1 L, Hct 26.7 L, MCV 80.2 L, MCH 24.3 L, MCHC 30.3 L, RDW Std Deviation 43.8, RDW Coeff of Kahlil 15.0 H, Plt Count 307, MPV 10.1, Immature Gran % (Auto) 0.200, Neut % (Auto) 56.8, Lymph % (Auto) 27.3, [place] % (Auto) 10.9 H, Eos % (Auto) 4.2, Baso % (Auto) 0.6, Absolute Neuts (auto) 2.7, Absolute Lymphs (auto) 1.30, Nucleated RBC % 0, Sodium 143, Potassium 3.8, Chloride 111 H, Carbon Dioxide 27.0, Anion Gap 5, BUN 10, Creatinine 0.70, Estim Creat Clear Calc 73.21, Est GFR (MDRD) Af Amer 105, Est GFR (MDRD) Non-Af 87, BUN/Creatinine Ratio 14.2, Glucose 104, Calcium 8.1 L D/C Instructions Discharge Diet: Low fat / Low cholesterol Weight Bearing Status: Weight bearing as tolerated Call your doctor if you observe: Fever of 101 or Higher, Shortness of breath, Dizziness, Swelling in the ankles, Chest pain and Uncontrolled pain Discharge Plan Admission Admit Date/Time: 05/26/23 15:42 Primary Reason for Your Visit: lower GI bleed Attending Provider: Maxine Griffin Primary Care Provider: Valencia Rivera Consulting Providers: Joesph Aleman; Nilo Stroud; Agustín Viramontes Instructions Patient Instructions: GI Bleeding Ch Discharge Orders/Prescriptions Prescriptions: Continued atorvastatin 40 mg tablet 40 mg PO DAILY epinephrine 0.3 MG syringe 0.3 mg IM X1 loratadine 10 MG tablet 10 mg PO DAILY albuterol sulfate 18 GM HFA aerosol inhaler 2 puff inhalation Q6H PRN (Reason: Sob &/Or Wheezing) meclizine 25 MG tablet 25 mg PO Q6H PRN (Reason: Dizziness) fluticasone propionate 1 SPRAY spray,suspension 2 spray NASAL DAILY PRN (Reason: Allergies) albuterol sulfate 2.5 MG/3 ML solution for nebulization 2.5 mg inhalation Q4H PRN (Reason: Sob &/Or Wheezing) metoprolol tartrate 25 mg Tablet 25 mg PO BID 30 Days Qty: 60 0RF verapamil 240 mg tablet extended release 240 mg PO DAILY Qty: 90 3RF dicyclomine 10 mg capsule 10 mg PO BID PRN (Reason: abdominal discomfort) Qty: 30 1RF pantoprazole 40 mg tablet,delayed release (DR/EC) See Rx Instructions .ROUTE .COMPLEX Qty: 90 0RF Dose Instruction: TAKE 1 TABLET EVERY DAY Rx Instructions: TAKE 1 TABLET EVERY DAY Eliquis 5 mg tablet 5 mg PO BID Qty: 180 3RF colestipol 1 gram tablet 1 g PO BID 30 Days Qty: 60 2RF Hold Instructions: on hold Referrals / Follow Up: Joesph Aleman MD [Med Staff - Active Staff] - Within 2 Weeks Valencia Rivera MD [Primary Care Provider] - Within 2 Weeks Disposition Disposition (needs filled in before D/C Order can be placed): Home, Self Care
--- NOTE | 2023-05-30 10:39 | CASEMGMT ---
Pt co-pay for her Jet is 0$ per the pt pharmacy. CHAPARRITA CM to pt room at this time in regard to DC planning. Pt states that she feels safe and comfortable discharging home without HHC or OP Therapy. Pt states that her Daughter will be able to pick her up from the hospital once she gets off work around 5:30pm. SW to follow up for pt Meals on Wheels interest. DC order is placed but pt will not be able to leave until her ride gets here.
--- NOTE | 2023-05-30 10:45 | PHA.DC.MR.R ---
Pharmacy OR Med Reconciliation Pharmacy Service has performed discharge medication reconciliation for this patient. The patient's discharge medication list was reviewed for discrepancies and discrepancies were resolved. Medications at Discharge Home Medications epinephrine 0.3 mg/0.3 mL injection, auto-injector 0.3 mg IM X1 ALLERGIC REACTIONS 05/04/13 loratadine 10 mg tablet 10 mg PO DAILY ALLERGIES 05/04/13 albuterol sulfate 90 mcg/actuation aerosol inhaler 2 puff inhalation Q6H PRN Sob &/Or Wheezing 12/26/15 meclizine 25 mg tablet 25 mg PO Q6H PRN Dizziness 03/28/16 fluticasone propionate 50 mcg/actuation nasal spray,suspension 2 spray NASAL DAILY PRN Allergies 07/02/18 albuterol sulfate 2.5 mg/3 mL (0.083 %) solution for nebulization 2.5 mg inhalation Q4H PRN Sob &/Or Wheezing 12/04/18 verapamil 240 mg tablet,extended release 240 mg PO DAILY BP #90 tabs 12/30/19 atorvastatin 40 mg tablet 40 mg PO DAILY cholesterol 11/18/21 dicyclomine 10 mg capsule 10 mg PO BID PRN abdominal discomfort #30 caps 02/02/22 pantoprazole 40 mg tablet,delayed release See Rx Instructions .Route .COMPLEX stomach #90 tabs 06/12/22 apixaban 5 mg tablet (Eliquis) 5 mg PO BID thinner #180 tabs 09/15/22 colestipol 1 gram tablet 1 g PO BID med 30 days #60 tabs 10/25/22 metoprolol tartrate 25 mg tablet 25 mg PO BID 30 days #60 tabs 02/20/23
--- NOTE | 2023-05-30 14:47 | DS.PCM_ITS ---
Providers Date of Admission: 05/26/23 Date of Discharge: 05/30/23 Primary Care Physician: Dr. Valencia Rivera MD Consultations 05/26/23 17:21 Consult: General Surgery Routine Consulting Provider: Joesph Aleman Reason for Consult: GI bleed EMERGENT Consult: No MD Notified: Yes Date Notified: 05/26/23 Time Notified: 15:47 Method of Notification: ED Physician Initiated Reason For Visit: GI BLEED Diagnosis Discharge Diagnosis (1) Ischemic colitis: Status: Acute Code(s): K55.9 - Vascular disorder of intestine, unspecified (2) GI bleed: Status: Acute Code(s): K92.2 - Gastrointestinal hemorrhage, unspecified Qualifiers: GI bleed type/associated pathology: unspecified gastrointestinal hemorrhage type Qualified Code(s): K92.2 - Gastrointestinal hemorrhage, unspecified Plan #Acute lower GI bleed * Thought to be due to ischemic colitis. CT of the abdomen and pelvis showed evidence of ischemic colitis. * Eliquis currently on hold. On PPI. Tolerating clear liquid diet. Advance to transitional diet today. * On Cipro and Flagyl. General surgery on board. #Acute blood loss anemia due to GI bleed: Hemoglobin today is 8. Monitor closely and transfuse if hemoglobin falls less than 7. #Hypokalemia: Resolved. Potassium is 3.7 today. #Paroxysmal A-fib: Eliquis currently on hold. On metoprolol. Per general surgery, resume Eliquis tonight. #Hypertension: On metoprolol and verapamil #Hyperlipidemia: on statin. #COPD: Not in exacerbation. Breathing treatments bronchodilators. # DVT Prophylaxis: SCDs ' Disposition: For discharge tomorrow if she does not bleed after resuming Eliquis. Medications at Discharge Home Medications epinephrine 0.3 mg/0.3 mL injection, auto-injector 0.3 mg IM X1 ALLERGIC REACTIONS 05/04/13 loratadine 10 mg tablet 10 mg PO DAILY ALLERGIES 05/04/13 albuterol sulfate 90 mcg/actuation aerosol inhaler 2 puff inhalation Q6H PRN Sob &/Or Wheezing 12/26/15 meclizine 25 mg tablet 25 mg PO Q6H PRN Dizziness 03/28/16 fluticasone propionate 50 mcg/actuation nasal spray,suspension 2 spray NASAL DAILY PRN Allergies 07/02/18 albuterol sulfate 2.5 mg/3 mL (0.083 %) solution for nebulization 2.5 mg inhalation Q4H PRN Sob &/Or Wheezing 12/04/18 verapamil 240 mg tablet,extended release 240 mg PO DAILY BP #90 tabs 12/30/19 atorvastatin 40 mg tablet 40 mg PO DAILY cholesterol 11/18/21 dicyclomine 10 mg capsule 10 mg PO BID PRN abdominal discomfort #30 caps 02/02/22 pantoprazole 40 mg tablet,delayed release See Rx Instructions .Route .COMPLEX s tomach #90 tabs 06/12/22 apixaban 5 mg tablet (Eliquis) 5 mg PO BID thinner #180 tabs 09/15/22 colestipol 1 gram tablet 1 g PO BID med 30 days #60 tabs 10/25/22 metoprolol tartrate 25 mg tablet 25 mg PO BID 30 days #60 tabs 02/20/23 Hospital Course Operations None Procedures None Summary of Care Provided Minutes Spent on Discharge: 55 Hospital Course: Patient is a 73-year-old female with a past medical history as outlined was ad mitted through the ED on 05/26/2023 with a complaint of rectal bleeding. She admits that the rectal bleeding about a week prior to admission. Patient was on Eliquis and had been taking it. Subsequently started feeling weak so she came into the ED. Hemoglobin was 8.2. CT of the abdomen done showed evidence of proctocolitis. She was admitted and managed for lower GI bleed. General surgery was consulted. She was placed on antibiotics with ciprofloxacin and metronidazole due to concerns about infectious proctocolitis. Rectal bleeding improved and she felt better. She was placed on a clear liquid diet which she tolerated. Her hemoglobin stabilised and general surgery decided against a colo noscopy and EGD. She was placed on a transitional diet which she tolerated. Her Eliquis was resumed and there was no evidence of bleeding. She remained stable and was discharged home on 05/30/2023. She is to follow-up with her primary care doctor and follow-up with general surgery within 1 to 2 weeks. Patient seen and examined prior to discharge. She had no active complaints. Review of systems otherwise negative. Labs and vitals reviewed. Home medication reviewed and reconciled. Physical Exam Const alert, oriented x3, no apparent distress and well nourished General Appearance: cooperative, comfortable, well kempt and well developed HEENT normocephalic, head/scalp atraumatic, hearing grossly normal bilaterally and moist oral mucous membranes Mouth: oral and palatal mucosa normal Eyes PERRL and EOMs intact bilaterally Neck no lymphadenopathy and supple Lymph Lymphatic: no lymphadenopathy noted and no lymphedema noted Resp normal respiratory effort, normal air movement and clear to auscultation bilaterally Cardio regular rate, regular rhythm, S1 normal heart sound, S2 normal heart sound and no murmurs GI normal to inspection, nondistended, normoactive bowel sounds and soft to palpation GI Narrative: Mildly distended abdomen Extremity normal to inspection, full ROM, normal capillary refill, no clubbing, cyanosis or edema and no calf tenderness General Extremity: no tenderness to palpation of joints or extremities Skin no rashes or lesions noted General Skin Exam: no breakdown Neuro oriented x3, CN's II-XII intact bilaterally, moves all extremities, no focal motor deficits, no sensory deficits noted and deep tendon reflexes 2+ bilaterally Motor Exam: strength 5/5 throughout and general weakness Psych thought process normal and cooperative Appearance: appropriate Weight / BMI Weight Weight: 205 lb 15.999 oz Body Mass Index (BMI) 33.2 ABG / Lab / Microbiology Data 05/30/23 06:14 05/30/23 06:14 Laboratory: Laboratory Results - last 24 hr 05/30/23 06:14: WBC 4.8, RBC 3.33 L, Hgb 8.1 L, Hct 26.7 L, MCV 80.2 L, MCH 24.3 L, MCHC 30.3 L, RDW Std Deviation 43.8, RDW Coeff of Kahlil 15.0 H, Plt Count 307, MPV 10.1, Immature Gran % (Auto) 0.200, Neut % (Auto) 56.8, Lymph % (Auto) 27.3, [place] % (Auto) 10.9 H, Eos % (Auto) 4.2, Baso % (Auto) 0.6, Absolute Neuts (auto) 2.7, Absolute Lymphs (auto) 1.30, Nucleated RBC % 0, Sodium 143, Potassium 3.8, Chloride 111 H, Carbon Dioxide 27.0, Anion Gap 5, BUN 10, Creatinine 0.70, Estim Creat Clear Calc 73.21, Est GFR (MDRD) Af Amer 105, Est GFR (MDRD) Non-Af 87, BUN/Creatinine Ratio 14.2, Glucose 104, Calcium 8.1 L D/C Instructions Discharge Diet: Low fat / Low cholesterol Discharge Activity: Return to Normal Activity Weight Bearing Status: Weight bearing as tolerated Call your doctor if you observe: Fever of 101 or Higher, Shortness of breath, Dizziness, Swelling in the ankles, Chest pain and Uncontrolled pain Meaningful Use Info Meaningful Use Diagnoses (Choose all that apply): None applicable Discharge Plan Admission Admit Date/Time: 05/26/23 15:42 Primary Reason for Your Visit: lower GI bleed Attending Provider: Maxine Griffin Primary Care Provider: Valencia Rivera Consulting Providers: Joesph Aleman; Nilo Stroud; Agustín Viramontes Instructions Patient Instructions: GI Bleeding Ch Discharge Orders/Prescriptions Prescriptions: Continued atorvastatin 40 mg tablet 40 mg PO DAILY epinephrine 0.3 MG syringe 0.3 mg IM X1 loratadine 10 MG tablet 10 mg PO DAILY albuterol sulfate 18 GM HFA aerosol inhaler 2 puff inhalation Q6H PRN (Reason: Sob &/Or Wheezing) meclizine 25 MG tablet 25 mg PO Q6H PRN (Reason: Dizziness) fluticasone propionate 1 SPRAY spray,suspension 2 spray NASAL DAILY PRN (Reason: Allergies) albuterol sulfate 2.5 MG/3 ML solution for nebulization 2.5 mg inhalation Q4H PRN (Reason: Sob &/Or Wheezing) metoprolol tartrate 25 mg Tablet 25 mg PO BID 30 Days Qty: 60 0RF verapamil 240 mg tablet extended release 240 mg PO DAILY Qty: 90 3RF dicyclomine 10 mg capsule 10 mg PO BID PRN (Reason: abdominal discomfort) Qty: 30 1RF pantoprazole 40 mg tablet,delayed release (DR/EC) See Rx Instructions .ROUTE .COMPLEX Qty: 90 0RF Dose Instruction: TAKE 1 TABLET EVERY DAY Rx Instructions: TAKE 1 TABLET EVERY DAY Eliquis 5 mg tablet 5 mg PO BID Qty: 180 3RF colestipol 1 gram tablet 1 g PO BID 30 Days Qty: 60 2RF Hold Instructions: on hold Referrals / Follow Up: Joesph Aleman MD [Med Staff - Active Staff] - 06/13/23 9:15 am Valencia Rivera MD [Primary Care Provider] - 06/08/23 10:00 am Disposition Disposition (needs filled in before D/C Order can be placed): Home, Self Care Charges/Coding Visit Charges Inpatient E&M: 36645 Disch Hosp >30min
[2023-05-30] MEDS: Dicyclomine 10 MG Capsule PO (14:50)
[2023-05-30 15:30] VITALS: BP 123/79; PULSE 84; RESP 16; TEMP 36.8; O2SAT 94
--- NOTE | 2023-05-30 16:09 | NURSING ---
All documentation by deputy director of nursing, Joon Lazaro, reviewed by clinical nursing intern, Bharti ALCAZARN, RN.
--- NOTE | 2023-05-30 16:10 | CASEMGMT ---
Social Work SW met with pt and assisted in completing a Health Care POA naming her daughter Anne-Marie Rebollar. Pt choosing not to complete a living will. Original given to pt and copy placed on pt chart. RONNA Dial
--- NOTE | 2023-05-30 16:12 | CASEMGMT ---
Social Work SW assessed pt for Social Determinants of Health. See assessment for details. Referral made to [facility] for Passport program. SW provided pt with list of home delivered meals. Pt will review information and call if she chooses. No further SW needs. RONNA Yap
== END 2023-05-30 17:32 | disposition home or self-care (01) | DRG 394 ==
LOC: ED 15:50 → MS3 16:15
PROVIDERS: Family Medicine; Emergency Provider Emergency Medicine; PCP Internal Medicine; Visit Provider Student in an Organized Health Care Education/Training Program
DX: K55.039 Acute (reversible) ischemia of large intestine, extent unspecified (principal); D62 Acute posthemorrhagic anemia; D68.32 Hemorrhagic disorder due to extrinsic circulating anticoagulants; I27.21 Secondary pulmonary arterial hypertension; J44.9 Chronic obstructive pulmonary disease, unspecified; I48.0 Paroxysmal atrial fibrillation; I10 Essential (primary) hypertension; E78.5 Hyperlipidemia, unspecified; E87.6 Hypokalemia; T45.515A Adverse effect of anticoagulants, initial encounter; Z79.899 Other long term (current) drug therapy; Z79.01 Long term (current) use of anticoagulants
CPT/HCPCS: 36415; 74177; 80048; 80053; 83605; 85014; 85018; 85025; 85610; 86850; 86900; 86901; 86920; 86922; 94762; 99284; J7030; J7040; P9016; Q9967; A4216; J0744; J2405

== ENCOUNTER 2023-12-15 22:11 | Emergency (ER) | payer MEDICARE, MEDICAID, SELFPAY ==
[2023-12-15 22:11] VITALS: BP 149/70; PULSE 82; RESP 18; TEMP 36.8; O2SAT 100
[2023-12-15 22:12] VITALS: BMI 32.6
--- NOTE | 2023-12-15 22:37 | CT_ITS ---
INDICATION: LLQ pain EXAMINATION: CT Abdomen And Pelvis W/ Contrast Injection TECHNIQUE: Helically acquired images were obtained of the abdomen and pelvis with sagittal and coronal reconstructed images. Individualized dose optimization techniques were used for this CT. IV contrast dosage and agent: 100 mL of Isovue-[id number]. Oral contrast: None. COMPARISON: 05/26/2023 CT. FINDINGS: VESSELS: No abdominal aortic aneurysm or dissection. LIVER: No evidence of a mass. Stable mild intrahepatic duct and common duct dilation likely representing postcholecystectomy change. GALLBLADDER: Status post cholecystectomy. PANCREAS: No focal solid or cystic mass. No evidence of pancreatitis. SPLEEN: Normal. ADRENAL GLANDS: Normal. KIDNEYS AND URETERS: No urinary tract stone. No hydronephrosis or hydroureter. No significant asymmetric perinephric stranding. URINARY BLADDER: Unremarkable. BOWEL: Diverticulosis with no evidence of diverticulitis. Appendix appears normal. No evidence of bowel obstruction. REPRODUCTIVE ORGANS: No evidence of a pelvic mass. PERITONEUM: No intraabdominal free fluid or free air. LYMPH NODES: No pathologically enlarged mesenteric or retroperitoneal lymph nodes. ABDOMINAL WALL: No abdominal or pelvic wall hernia. BONES: No acute abnormality. LOWER CHEST: Visualized lung bases are unremarkable. CT/Abdomen/Pelvis W IV Cont ONLY IMPRESSION: 1. No acute abnormality. 2. Diverticulosis with no evidence of diverticulitis. Electronically Signed: Paul Catalan DO at 0:17 EDT ,
--- NOTE | 2023-12-15 22:38 | ED.VIS.GI ---
HPI HPI - GI History of Present Illness Chief Complaint: Abd Pain Informant: patient Narrative Narrative: For the past 3 to 4 hours patient has been having lower abdominal pain/cramping as well as significant amount of loose diarrhea, occasionally watery, occasionally more formed, all in the past several hours, but never any blood or melena. She is anticoagulated on apixaban because of a history of A-fib. She felt nauseated as a result of all of this but had no vomiting. She denies having any fevers she did check her temperature because she is feeling tremulous. No known sick contacts no suspicious food intake or undercooked/raw meats or fish. She was at a [employer] show today with a lot of other people. She has a history of ischemic colitis and was told to drink plenty of fluids all the time she states because of going to the craft show she did not drink a lot of fluids a day and is wondering if that is causing all this. [facility] Medical History Ischemic colitis Symptomatic anemia History of cataract Diarrhea Post-menopausal Wears partial dentures History of Clostridium difficile infection Osteoarthritis Osteoarth NOS-up/arm 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 Ambulates with cane Back pain History of hiatal hernia History of stress test Non-smoker Colitis Acute lower gastrointestinal bleeding Osteoporosis Atrial fibrillation Traumatic hematoma of abdominal wall Secondary pulmonary arterial hypertension Paroxysmal atrial fibrillation Essential (primary) hypertension Suspected 2019 novel coronavirus infection (05/19/19) Community acquired pneumonia On amiodarone therapy care home current use of anticoagulant TIA (transient ischemic attack) Asthma HLD (hyperlipidemia) CVA (cerebral vascular accident) BMI greater than 30 Migraine GERD (gastroesophageal reflux disease) Home Medications ?Medication ?Instructions ?Recorded ?Last Taken ?Type epinephrine 0.3 mg/0.3 mL 0.3 mg IM X1 ALLERGIC REACTIONS 05/04/13 Unknown History injection, auto-injector loratadine 10 mg tablet 10 mg PO DAILY ALLERGIES 05/04/13 05/26/23 History albuterol sulfate 90 mcg/actuation 2 puff inhalation Q6H PRN Sob &/Or 12/26/15 09/09/19 History aerosol inhaler Wheezing meclizine 25 mg tablet 25 mg PO Q6H PRN Dizziness 03/28/16 05/26/23 History fluticasone propionate 50 2 spray NASAL DAILY PRN Allergies 07/02/18 09/15/21 History mcg/actuation nasal spray,suspension albuterol sulfate 2.5 mg/3 mL 2.5 mg inhalation Q4H PRN Sob &/Or 12/04/18 12/01/18 History (0.083 %) solution for nebulization Wheezing verapamil 240 mg tablet,extended 240 mg PO DAILY BP #90 tabs 12/30/19 05/26/23 Rx release atorvastatin 40 mg tablet 40 mg PO DAILY cholesterol 11/18/21 05/26/23 History pantoprazole 40 mg tablet,delayed See Rx Instructions .Route 06/12/22 05/26/23 Rx release .COMPLEX stomach #90 tabs metoprolol tartrate 25 mg tablet 25 mg PO BID 30 days #60 tabs 02/20/23 05/26/23 Rx apixaban 5 mg tablet (Eliquis) 5 mg PO BID thinner #180 tabs 08/10/23 Unknown Rx dicyclomine 10 mg capsule 20 mg (2 x 10 mg) PO Q6H PRN 12/16/23 Unknown Rx abdominal pain #30 caps Allergy/AdvReac Type Severity Reaction Status Date / Time adhesive tape Allergy Rash Verified 12/15/23 22:11 pepper (genus Capsicum) Allergy Hives Verified 12/15/23 22:11 propoxyphene HCl (From Allergy Rash Verified 12/15/23 22:11 Darvon) sulfamethoxazole (From Allergy Shortness Verified 12/15/23 22:11 Bactrim) of breath trimethoprim (From Bactrim) Allergy Shortness Verified 12/15/23 22:11 of breath venom-honey bee (bee venom Allergy Anaphylaxis Verified 12/15/23 22:11 (honey bee)) venom-wasp (wasp venom) Allergy Anaphylaxis Verified 12/15/23 22:11 Family History Father CAD (coronary artery disease) Brother Heart disease Surgical History History of colonoscopy (11/21/21) history of mastoid tumor resection History of total hysterectomy History of cholecystectomy Social History Smoking Status: Never smoker alcohol intake: current alcohol intake frequency: holidays/special occasions only substance use type: does not use caffeine: Yes Type: tea Number of servings: 2 ROS ROS ED Constitutional Constitutional ED: Reports chills; Denies fever(s) Eyes Eyes: Denies change in vision or diplopia ENT ENT ED: Denies rhinorrhea or sore throat Cardiovascular Cardiovascular: Reports palpitations and other Details: Junior like she was in A-fib for a bit earlier but not now ; Denies chest pain Respiratory/Chest Respiratory/Chest: Denies cough or dyspnea Gastrointestinal Gastrointestinal: Reports abdominal pain, diarrhea and nausea; Denies hematochezia, melena or vomiting Genitourinary Genitourinary ED: Denies dysuria or hematuria Musculoskeletal Musculoskeletal: Denies back pain or neck pain Integumentary Denies abscess or rash Neurologic Neurologic: Denies headache(s), paresthesias or weakness Psychiatric Psychiatric: Denies suicidal thoughts EXAM Physical Exam Const Vital Signs: 12/15/23 22:11 12/16/23 00:11 Temperature 98.2 F Temperature Source Oral Pulse Rate 82 92 Respiratory Rate 18 Blood Pressure 149/70 H 117/64 Blood Pressure Mean 96 81 Pulse Ox 100 95 Oxygen Delivery Method Room Air Room Air Positive well nourished, well developed and obese General Appearance ED: well developed and NAD Nutritional Appearance: obese HEENT Reports moist mucous membranes normocephalic and atraumatic Eyes PERRL and EOMs intact bilaterally Neck full ROM and supple Resp normal respiratory effort and clear to auscultation bilaterally Cardio regular rate, regular rhythm and no murmurs GI non-distended GI Narrative: Tender left lower quadrant without guarding or rebound or pulsatile mass but obesity limits as part of the exam, no other areas of tenderness. Auscultation: normoactive bowel sounds Palpation: soft Back/Spine no CVA tenderness General Back: other FROM Extremity normal to inspection General Extremety ED: Negative for edema, pulses abnormal or tenderness General Extremity: Negative for edema or pulses abnormal Neuro oriented x3, CN's II-XII intact bilaterally and no sensory deficits noted Sensorium / Orientation: awake and alert Motor Exam: strength 5/5 throughout Psych Mood & Affect: anxious Skin no rashes or lesions noted and no wounds MDM MDM MDM Narrative Medical decision making narrative: I reviewed some old records as patient does have a history of diverticulosis/diverticulitis as well as ischemic colitis, which was giving her bleeding at the time. She has had no bleeding now, so I think a CT is warranted to see if this is acute diverticulitis for which antibiotics would be warranted. Kidney stones in the differential, infectious enteritis also. Labs noted, mild leukocytosis normal urinalysis, I reviewed the CT images and the report which I agree with, it basically shows no acute colitis or diverticulitis or any other acute inflammatory condition to explain the patient's pain. She feeling better after morphine. She has had no significant amounts of diarrhea while here. As I discussed with her, there is no evidence of acute colitis going on at this time, I would have given her IV fluids but there is a national shortage of them and we are withholding them from most patients. She is not an emergent need of them. Differential here includes acute diarrhea related to something she ate, viral infection, less likely a bacterial infection. 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 History & Record Review Additional record(s) reviewed:: Prior outpatient record (GI outpatient 2021) Lab Data Attestation: I reviewed the patient's lab results. Labs: Laboratory Results - last 24 hr 12/15/23 12/15/23 22:49 23:58 WBC 12.2 H RBC 5.24 Hgb 10.1 L Hct 35.8 L MCV 68.3 L MCH 19.3 L MCHC 28.2 L RDW Std Deviation 40.6 RDW Coeff of Kahlil 16.9 H Plt Count 367 MPV 9.4 Immature Gran % (Auto) 0.300 Neut % (Auto) 88.1 H Lymph % (Auto) 7.8 L [place] % (Auto) 2.9 Eos % (Auto) 0.5 Baso % (Auto) 0.4 Absolute Neuts (auto) 10.8 H Absolute Lymphs (auto) 0.95 Nucleated RBC % 0 Sodium 140 Potassium 3.9 Chloride 110 H Carbon Dioxide 24.0 Anion Gap 7 BUN 21 H Creatinine 0.87 Estim Creat Clear Calc 66.71 Est GFR (MDRD) Af Amer 83 Est GFR (MDRD) Non-Af 68 BUN/Creatinine Ratio 24.2 H Glucose 113 H Lactic Acid 1.2 Calcium 9.2 Urine Color Yellow Urine Clarity Clear Urine pH 6.5 Ur Specific [place] 1.010 Urine Protein 15 H Urine Glucose (UA) Normal Urine Ketones Negative Urine Occult Blood Negative Urine Nitrite Positive H Urine Bilirubin Negative Urine Urobilinogen Normal Ur Leukocyte Esterase 25 H Urine RBC 0 SEEN Urine WBC 5-10 SEEN Ur Squamous Epith Cells 5-10 SEEN Urine Bacteria 3+ Urine Mucus 0 SEEN Radiography Diagnostic Testing: Clinical Impression(s) from Imaging Studies Abdomen/Pelvis CT 12/15/23 22:37 IMPRESSION: 1. No acute abnormality. 2. Diverticulosis with no evidence of diverticulitis. Electronically Signed: Paul Catalan DO at 0:17 EDT , Discharge Plan Triage Chief Complaint: Abd Pain ED Provider: Dwight Ruff Dx/Rx/DC Orders Clinical Impression: Acute diarrhea, Abdominal pain, lower Instructions: ED Diarrhea, Unknown Cause Prescriptions: Continued atorvastatin 40 mg tablet 40 mg PO DAILY epinephrine 0.3 MG syringe 0.3 mg IM X1 loratadine 10 MG tablet 10 mg PO DAILY albuterol sulfate 18 GM HFA aerosol inhaler 2 puff inhalation Q6H PRN (Reason: Sob &/Or Wheezing) meclizine 25 MG tablet 25 mg PO Q6H PRN (Reason: Dizziness) fluticasone propionate 1 SPRAY spray,suspension 2 spray NASAL DAILY PRN (Reason: Allergies) albuterol sulfate 2.5 MG/3 ML solution for nebulization 2.5 mg inhalation Q4H PRN (Reason: Sob &/Or Wheezing) metoprolol tartrate 25 mg Tablet 25 mg PO BID 30 Days Qty: 60 0RF verapamil 240 mg tablet extended release 240 mg PO DAILY Qty: 90 3RF pantoprazole 40 mg tablet,delayed release (DR/EC) See Rx Instructions .ROUTE .COMPLEX Qty: 90 0RF Dose Instruction: TAKE 1 TABLET EVERY DAY Rx Instructions: TAKE 1 TABLET EVERY DAY Eliquis 5 mg tablet 5 mg PO BID Qty: 180 2RF Changed dicyclomine 10 mg capsule 20 mg PO Q6H PRN (Reason: abdominal pain) Qty: 30 1RF Primary Care Provider: Valencia Rivera Referrals: Valencia Rivera MD [Primary Care Provider] - (Or Friend as scheduled) Print Language: Persian Disposition Disposition: Home, Self Care
[2023-12-15] MEDS: Morphine 4 MG/ML Syringe IV (22:48)
[2023-12-15 22:58] LABS: Absolute Lymphocyte Count 0.95 X10^3/uL (0.83-4.51); Absolute Neutrophil Count 10.8 X10^3/uL (2.0-7.7); Basophil# 0.05 X10^3/uL; Basophil% 0.4 % (0-1); Eosinophil# 0.06 X10^3/uL; Eosinophils% 0.5 % (0-5); Hematocrit 35.8 % (37-47); Hemoglobin 10.1 g/dL (12.0-15.0); Lymphocyte # 0.95 X10^3/ul (0.83-4.51); Lymphocyte % 7.8 % (19-41); Mean Corp Hgb Conc 28.2 g/dL (32-36); Mean Corpuscular Hgb 19.3 pg (27.0-32.0); Mean Corpuscular Volume 68.3 fL (81-99); Mean Platelet Vol. 9.4 fl (6.2-12.0); Monocyte# 0.35 X10^3/uL; Monocyte% 2.9 % (0-10); NRBC Flagged by Analyzer 0 % (0-5); Neutrophil # 10.75 X10^3/uL (2.7-7.7); Neutrophil % 88.1 % (47-70); Platelet Count 367 K/mm3 (150-450); RBC Distribution Width CV 16.9 % (11.6-14.6); RBC Distribution Width SD 40.6 fl (35.1-43.9); Red Blood Count 5.24 M/mm3 (4.2-5.4); White Blood Count 12.2 K/mm3 (4.4-11.0)
--- OUTSIDE RECORDS SUMMARY | 2023-12-15 23:07 | XMS RPT_ITS | CCD ---
Author Organization [facility] Providers Care Associate Product Integrity Engineer Name Role Phone Harman Summers W Unavailable Unavailable Harman Summers Unavailable Unavailable Paul Reynolds Unavailable Unavailable Erik Reynolds MD Primary Care Provider Erik Reynolds MD Primary Care Provider Erik Reynolds MD Primary Care Provider Fatemeh Rogers MD Primary Care Provider Fatemeh Rogers MD Primary Care Provider Salomón Chambers Unavailable [phone] PHYSICIAN, NONE Attending Unavailable PHYSICIAN, NONE Primary Care Unavailable Fatemeh Rogers MD Primary Care Provider FAITH MULLINS Referring Unavailable TALAMPAS, FATEMEH D Primary Care Unavailable FAITH MULLINS Referring Unavailable TALAMPAS, FATEMEH D Primary Care Unavailable TALAMPAS, FATEMEH D Primary Care Unavailable TALAMPAS, FATEMEH D Attending Unavailable TALAMPAS, FATEMEH D Primary Care Unavailable TALAMPAS, FATEMEH D Attending Unavailable TALAMPAS, FATEMEH D Primary Care Unavailable TALAMPAS, FATEMEH D Primary Care Unavailable TALAMPAS, FATEMEH D Attending Unavailable TALAMPAS, FATEMEH D Primary Care Unavailable DWIGHT ENCARNACION Attending Unavailable TALAMPAS, FATEMEH D Primary Care Unavailable TALAMPAS, FATEMEH D Primary Care Unavailable MULLINSFAITH Attending Unavailable TALAMPAS, FATEMEH D Primary Care Unavailable DWIGHT ENCARNACION Referring Unavailable TALAMPAS, FATEMEH D Primary Care Unavailable TALAMPAS, FATEMEH D Primary Care Unavailable TALAMPAS, FATEMEH D Primary Care Unavailable KOMAL WALTER Referring Unavailable TALAMPAS, FATEMEH D Primary Care Unavailable TALAMPAS, FATEMEH D Primary Care Unavailable DALLAS WILSON Referring Unavailable FATEMEH ROGERS Primary Care Unavailable FATEMEH ROGERS Attending Unavailable FAITH MULLINS Attending Unavailable FATEMEH ROGERS Primary Care Unavailable FAITH MULLINS Referring Unavailable FAITH MULLINS Attending Unavailable FATEMEH ROGERS Primary Care Unavailable Rodolfo ALLEN, Erik Lebron Primary Care Provider Allergies Allergy Classification Reported Allergen(s) Allergy Type Date of Onset Reaction(s) Facility Adhesive Tape (2 sources) Adhesive Tape; Translations: [ADHESIVE TAPE (ROSINS)] Substance Allergy 12-06-19 17 [facility] Work Phone: Corticosteroids (1 source) predniSONE; Translations: [PREDNISONE] Drug Allergy 03-07-19 17 [facility] Repository Opioid Agonists (2 sources) Propoxyphene; Translations: [PROPOXYPHENE HCL] Drug Allergy 05-15-19 08 [facility] Work Phone: Sulfamethoxazole / Trimethoprim (2 sources) Sulfamethoxazole / Trimethoprim; Translations: [SULFAMETHOXAZOLE-T RIMETHOPRIM] Drug Allergy 12-30-19 15 Anaphylaxis [facility] (1 source) propoxyphene; Translations: [Darvon] Drug Allergy [facility] Repository (1 source) sulfamethoxazole / trimethoprim; Translations: [Bactrim] Drug Allergy [facility] Repository (20 sources) Adhesive Tape Allergy to substance 12-06-19 17 Rash [facility] Work Phone: (20 sources) predniSONE Drug Allergy 03-07-19 17 GI Upset [facility] (20 sources) Propoxyphene Drug Allergy 05-15-19 08 [facility] Work Phone: (20 sources) Sulfamethoxazole / Trimethoprim Drug Allergy 12-30-19 15 Anaphylaxis [facility] (20 sources) Bee Sting; Translations: [BEE STING] Allergy to substance 08-29-19 13 Anaphylaxis [facility] Work Phone: (20 sources) Influenza Virus Vaccines; Translations: [INFLUENZA VIRUS VACCINES] Drug Intolerance 01-08-20 19 Other: See Comments [facility] Work Phone: (20 sources) Influenza Virus Vaccines Drug Intolerance 01-08-20 19 Other: See Comments [facility] Work Phone: (8 sources) Pepper (Genus Capsicum); Translations: [PEPPER (GENUS CAPSICUM)] Drug Allergy 11-05-19 23 Hives [facility] Medications Current Medications Medication Drug Class(es) Dates Sig (Normalized) Sig (Original) [id number] actuat albuterol 0.09 mg/actuat metered dose inhaler (20 sources) beta2-Adrenergic Agonist Start: 07-04-2023 take 2 puff(s) by inhalation every six hours as needed albuterol HFA (PROVENTIL HFA, VENTOLIN HFA) 90 mcg/actuation inhaler Indications: Mild persistent asthma without complication Inhale 2 Puffs as instructed every 6 hours as needed. 3 Each 07/04/2023 Active Start: 12-14-2020 End: 07-04-2023 take 2 puff(s) by inhalation every six hours as needed albuterol HFA (PROVENTIL HFA, VENTOLIN HFA) 90 mcg/actuation inhaler Indications: Mild persistent asthma with acute exacerbation Inhale 2 Puffs as instructed every 6 hours as needed. 18 g 0 12/22/2021 07/04/2023 Discontinued Start: 02-06-2019 End: 08-16-2020 take 2 puff(s) by inhalation every six hours as needed albuterol HFA (VENTOLIN HFA) 90 mcg/actuation inhaler Indications: Mild persistent asthma with acute exacerbation Inhale 2 Puffs as instructed every 6 hours as needed. 3 Inhaler 3 02/06/2019 08/16/2020 Discontinued Start: 03-22-2016 End: 12-22-2021 albuterol (PROVENTIL) 2.5 mg /3 mL (0.083 %) nebulizer solution Indications: Mild intermittent asthma without complication Use 3 mL via nebulizer every 4 hours as needed for Wheezing/Shortness of Breath. Use over 5-15minutes. 25 Vial 1 03/22/2016 12/22/2021 Discontinued Comment on above: Use 3 mL via nebuliz er every 4 hours as needed for Wheezing/Shortness of Breath. Use over 5-15minutes. INHALE 2 PUFFS IN STRUCTED EVERY 6 HOURS NEEDED. amoxicillin 875 mg / clavulanate 125 mg oral tablet (1 source) Penicillin-class Antibacterial Start: End: take 1 tablet by mouth twice daily amoxicillin-clavula mary acid (AUGMENTIN) 875-125 mg per tablet Take 1 tablet by mouth twice daily for 7 days. 14 tablet 0 09/07/2022 09/14/2022 Active Comment on above: Take 1 tablet by naveen th twice daily for 7 days. apixaban 5 mg oral tablet (20 sources) Factor Xa Inhibitor Start: End: take 1 tablet by mouth twice daily apixaban (ELIQUIS) 5 mg tab(s) Take 1 tablet by mouth two times a day. Will start when delivered 60 tablet 3 11/01/2023 Active Comment on above: Take 5 mg by mouth t wice daily. Will start when delivered atorvastatin 40 mg oral tablet (20 sources) HMG-CoA Reductase Inhibitor Start: End: take 1 tablet by mouth once daily atorvastatin (LIPITOR) 40 mg tablet Indications: TIA (transient ischemic attack) , Hyperlipidemia, mixed Take 1 tablet by mouth once daily. 90 tablet 3 08/14/2023 Active Start: 12-29-2019 End: 12-22-2021 atorvastatin (LIPITOR) 40 mg tablet Indications: TIA (transient ischemic attack) TAKE 1 TABLET EVERY DAY 90 tablet 3 12/29/2019 12/14/2020 Discontinued Comment on above: Take 1 tablet by naveen th once daily. benoxinate hydrochloride 4 mg/ml / fluorescein sodium 2.5 mg/ml ophthalmic solution (1 source) Diagnostic Dye Start: 05-17-19 End: 05-17-19 fluorescein-benoxin ate 0.25-0.4 % 1 Drop (FLURESS) benzonatate 100 mg oral capsule (20 sources) Non-narcotic Antitussive Start: 02-11-20 End: 02-27-19 take 2 capsules by mouth every eight hours as needed benzonatate (TESSALON PERLES) 100 mg capsule Take 2 capsules by mouth three times a day as needed. 30 capsule 02/27/2023 Active Start: 02-06-2019 End: 04-11-2022 take 2 capsules by mouth every eight hours as needed benzonatate (TESSALON PERLES) 100 mg capsule Take 2 capsules by mouth three times daily as needed. 90 capsule 02/06/2019 04/11/2022 Discontinued Comment on above: Take 2 capsules by m outh three times daily as needed. Take 2 capsules by m outh three times a day as needed. colestipol hydrochloride 1000 mg oral tablet (20 sources) Bile Acid Sequestrant Start: 10-25-2022 colestipol (COLESTID) 1 gram tablet Take 1 tablet by mouth as needed. 10/25/2022 Active Comment on above: Take by mouth. Take 1 tablet by naveen as needed. [id number] 0.3 ml EPINEPHrine 1 mg/ml auto-injector (20 sources) alpha-Adrenergic Agonist, beta-Adrenergic Agonist, Catecholamine Start: 08-22-2023 EPINEPHrine (EPIPEN) 0.3 mg/0.3 mL auto-injector Inject 0.3 ml intramuscular as needed. 2 Each 1 08/22/2023 Active Start: 02-06-2019 End: 08-22-2023 EPINEPHrine (AUVI-Q) 0.3 mg/ 0.3 mL auto-injector Indications: Bee sting allergy Inject 0.3 mL intramuscularly as needed. 2 Each 3 02/06/2019 07/04/2023 Discontinued Comment on above: Inject 0.3 mL intram uscularly as needed. erythromycin 0.005 mg/mg ophthalmic ointment (6 sources) Macrolide, Macrolide Antimicrobial Start: 11-25-2022 End: 12-02-2022 erythromycin (ROMYCIN) 5 mg/gram (0.5 %) ophthalmic ointment Indications: Infection of right eye Use 1 application in the right eye four times daily for 7 days. 3.5 g 0 11/25/2022 12/02/2022 Active Start: 09-07-2022 End: 11-25-2022 erythromycin (ROMYCIN) 5 mg/ gram (0.5 %) ophthalmic ointment Use 1 application in the right eye four times daily. 1 g 0 09/07/2022 11/25/2022 Discontinued Start: 08-15-2021 End: 08-22-2021 erythromycin (ROMYCIN) 5 mg/ gram (0.5 %) ophthalmic ointment Indications: Swelling of gland of right eyelid Use 1 application in the right eye twice daily for 7 days. 1 g 0 08/15/2021 08/22/2021 Active Comment on above: Use 1 application in the right eye twice daily for 7 days. Use 1 application in the right eye four times daily. Use 1 application in the right eye four times daily for 7 days. fluticasone / salmeterol (20 sources) Corticosteroid, beta2-Adrenergic Agonist Start: take 1 puff(s) by mouth twice daily fluticasone-salmetero l (ADVAIR DISKUS) 100-50 mcg/dose inhaler Indications: Mild persistent asthma with acute exacerbation Inhale 1 Puff as instructed two times a day. RINSE AND GARGLE MOUTH WITH WATER AFTER EACH USE. 180 Each 3 06/08/2023 Active Start: 02-27-2023 fluticasone-sa lmeterol (ADVAIR DISKUS) 250-50 mcg/dose inhaler Inhale 1 Puff as instructed two times a day. For Asthma flare. Resume Advair 100 after this one completed 1 Each 02/27/2023 Active Start: 02-27-2023 fluticasone-sa lmeterol (ADVAIR DISKUS) 250-50 mcg/dose inhaler Inhale 1 Puff as instructed two times a day. For Asthma flare. Resume Advair 100 after this one completed 1 Each 0 02/27/2023 Active Start: 06-30-2022 End: 06-08-2023 take 1 puff(s) by mouth twice daily fluticasone-salmeterol (ADVAIR DISKUS) 100-50 mcg/dose inhaler Indications: Mild persistent asthma with acute exacerbation Inhale 1 Puff as instructed twice daily. RINSE AND GARGLE MOUTH WITH WATER AFTER EACH USE. 180 Each 3 06/30/2022 06/08/2023 Discontinued Start: 06-30-2022 take 1 puff(s) by mo [facility] twice daily fluticasone-salmeterol (ADVAIR DISKUS) 100-50 mcg/dose inhaler Indications: Mild persistent asthma with acute exacerbation Inhale 1 Puff as instructed twice daily. RINSE AND GARGLE MOUTH WITH WATER AFTER EACH USE. 180 Each 3 06/30/2022 Active Start: 12-22-2021 End: 06-30-2022 take 1 puff(s) by mouth twice daily fluticasone-salmeterol (ADVAIR DISKUS) 100-50 mcg/dose inhaler Indications: Mild persistent asthma with acute exacerbation Inhale 1 Puff as instructed twice daily. RINSE AND GARGLE MOUTH WITH WATER AFTER EACH USE. 180 Each 1 12/22/2021 06/30/2022 Discontinued Start: 12-22-2021 take 1 puff(s) by mo [facility] twice daily fluticasone-salmeterol (ADVAIR DISKUS) 100-50 mcg/dose inhaler Indications: Mild persistent asthma with acute exacerbation Inhale 1 Puff as instructed twice daily. RINSE AND GARGLE MOUTH WITH WATER AFTER EACH USE. 180 Each 1 12/22/2021 Active Start: 08-16-2020 End: 12-22-2021 take 1 puff(s) by mouth twice daily fluticasone-salmeterol (ADVAIR DISKUS) 100-50 mcg/dose inhaler Indications: Mild persistent asthma with acute exacerbation Inhale 1 Puff as instructed twice daily. RINSE AND GARGLE MOUTH WITH WATER AFTER EACH USE. 180 Each 0 08/16/2020 12/22/2021 Discontinued Start: 08-16-2020 take 1 puff(s) by mo [facility] twice daily fluticasone-salmeterol (ADVAIR DISKUS) 100-50 mcg/dose inhaler Indications: Mild persistent asthma with acute exacerbation Inhale 1 Puff as instructed twice daily. RINSE AND GARGLE MOUTH WITH WATER AFTER EACH USE. 180 Each 0 08/16/2020 Active Start: 08-16-2020 take 1 puff(s) by mo [facility] twice daily fluticasone-salmeterol (ADVAIR DISKUS) 100-50 mcg/dose inhaler Indications: Mild persistent asthma with acute exacerbation Inhale 1 Puff as instructed twice daily. RINSE AND GARGLE MOUTH WITH WATER AFTER EACH USE. 180 Each 0 08/16/2020 Active Start: 02-06-2019 End: 08-16-2020 take 1 puff(s) by mouth twice daily fluticasone-salmeterol (ADVAIR DISKUS) 100-50 mcg/dose dsdv Indications: Mild persistent asthma with acute exacerbation Inhale 1 Puff as instructed twice daily. RINSE AND GARGLE MOUTH WITH WATER AFTER EACH USE. 3 Inhaler 3 02/06/2019 08/16/2020 Discontinued Comment on above: Inhale 1 Puff as ins tructed twice daily. RINSE AND GARGLE MOUTH WITH WATER AFTER EACH USE. Inhale 1 Puff as ins tructed two times a day. For Asthma flare. Resume Advair 100 after this one completed ketorolac tromethamine 10 mg oral tablet (2 sources) Nonsteroidal Anti-inflammatory Drug, Cyclooxygenase Inhibitor Start: 04-11-19 End: 04-16-19 take 1 tablet by mouth every six hours as needed for pain keTORolac (TORADOL) 10 mg tablet Indications: Sacroiliitis (HCC) , Chronic bilateral low back pain with bilateral sciatica Take 1 tablet by mouth every 6 hours as needed for pain (Take with food.) for up to 5 days. 20 tablet 0 04/11/2022 04/16/2022 Active Start: 04-11-2022 End: 04-11-2022 keTORolac 60 mg injection (T ORADOL) Comment on above: Take 1 tablet by naveen th every 6 hours as needed for pain (Take with food.) for up to 5 days. meclizine hydrochloride 25 mg oral tablet (20 sources) Antiemetic Start : 02-06 take 1 tablet by mouth every six hours as needed for dizziness meclizine (ANTIVERT) 25 mg tab Indications: Benign paroxysmal positional vertigo, unspecified laterality Take 1 tablet by mouth every 6 hours as needed (dizziness). 90 tablet 02/06/2019 Active Comment on above: Take 1 tablet by naveen th every 6 hours as needed (dizziness). methylPREDNISolone (10 sources) Corticosteroid Start : 11-16 End: 11-22 methylPREDNISolone (MEDROL, PONCHO,) 4 mg Dose-Pack Indications: Acute cough , URI, acute , History of asthma Follow dosing instructions, take with food. 21 tablet 0 11/16/2022 11/22/2022 Active Start: 08-10-2022 End: 02-10-2023 methylPREDNISolone (MEDROL, PONCHO,) 4 mg Dose-Pack Indications: Lumbar radiculopathy , Sacroiliitis (HCC) Take by mouth as directed until finished. 21 tablet 0 08/10/2022 02/10/2023 Discontinued (Course of therapy completed) Start: 01-10-2022 End: 01-16-2022 methylPREDNISolone (MEDROL, PONCHO,) 4 mg Dose-Pack Indications: Sacroiliitis (HCC) Follow dosing instructions, take with food. 6 tablet 0 01/10/2022 01/16/2022 Active Comment on above: Follow dosing instru ctions, take with food. Take by mouth as dir ected until finished. metoprolol tartrate 25 mg oral tablet (20 sources) beta-Adrenergic Danielle Start: take 1 tablet by mouth twice daily metoprolol tartrate, short acting, (LOPRESSOR) 25 mg tablet Indications: Essential hypertension , Atrial fibrillation with RVR (HCC) Take 1 tablet by mouth two times a day. 180 tablet 3 06/15/2023 Active Start: 11-01-2022 End: 03-12-2023 take 0.5 tablet by mouth twice daily metoprolol tartrate, short acting, (LOPRESSOR) 25 mg tablet Indications: Essential hypertension Take 0.5 tablets by mouth twice daily. 90 tablet 3 11/01/2022 03/12/2023 Discontinued Start: 12-27-2018 End: 11-01-2022 metoprolol tartrate, short a cting, (LOPRESSOR) 25 mg tablet Indications: Essential hypertension Take 12.5 mg by mouth twice daily. 12/27/2018 11/01/2022 Discontinued Comment on above: Take 12.5 mg by mout h twice daily. Take 0.5 tablets by mouth twice daily. Take 1 tablet by naveen th two times a day. Nebulizer (20 sources) Start: 03-22-2016 Nebulizer Indications: Mild intermittent asthma without complication NEBULIZER FOR HOME USE. DX: J45.20 1 Device 03/22/2016 Active Start: 03-22-2016 Nebulizer Maggie cations: Mild intermittent asthma without complication NEBULIZER FOR HOME USE. DX: J45.20 1 Device 0 03/22/2016 Active Comment on above: NEBULIZER FOR HOME U SE. DX: J45.20 ondansetron 4 mg disintegrating oral tablet (20 sources) Serotonin-3 Receptor Antagonist Start: 03-04-19 take 1 tablet by mouth every six hours as needed for nausea ondansetron orally disintegrating (ZOFRAN ODT) 4 mg disintegrating tablet Indications: Benign paroxysmal positional vertigo, unspecified laterality DISSOLVE 1 TABLET ON THE TONGUE EVERY 6 HOURS NEEDED FOR NAUSEA/VOMITING 90 tablet 03/04/2019 Active Comment on above: DISSOLVE 1 TABLET ON THE TONGUE EVERY 6 HOURS NEEDED FOR NAUSEA/VOMITING pantoprazole 20 mg delayed release oral tablet (20 sources) Proton Pump Inhibitor Start: 11-02-19 23 End: 08-14-19 24 take 1 tablet by mouth once daily pantoprazole DR (PROTONIX) 20 mg tablet Indications: Gastroesophageal reflux disease Take 1 tablet by mouth once daily. 90 tablet 3 08/14/2023 Active Start: 12-29-2019 End: 12-22-2021 take 1 tablet by mouth once daily before breakfast pantoprazole DR (PROTONIX) 20 mg tablet Indications: Gastroesophageal reflux disease TAKE 1 TABLET BY MOUTH DAILY BEFORE BREAKFAST ON AN EMPTY STOMACH, 1/2 HOUR BEFORE MEAL 90 tablet 3 12/29/2019 12/14/2020 Discontinued Comment on above: Take 1 tablet by naveen th once daily. potassium chloride 8 meq extended release oral capsule (3 sources) Start: 4 End: 4 take 1 capsule by mouth once daily potassium chloride SR (MICRO-K) 8 mEq cpER Take 1 capsule by mouth once daily. 30 capsule 0 04/03/2023 05/03/2023 Active Comment on above: Take 1 capsule by mo [facility] once daily. proparacaine hydrochloride 5 mg/ml ophthalmic solution (1 source) Local Anesthetic Start: 3 End: 3 proparacaine 0.5 % 1 Drop (ALCAINE) verapamil hydrochloride 240 mg extended release oral tablet (20 sources) Calcium Channel Danielle Start: 3 End: 4 take 1 tablet by mouth once daily at bedtime verapamil SR (CALAN SR) 240 mg CR tablet Indications: Essential hypertension , Atrial fibrillation with rapid ventricular response (HCC) Take 1 tablet by mouth daily at bedtime. 90 tablet 3 08/14/2023 Active Start: 12-02-2018 End: 12-22-2021 take 1 tablet by mouth once daily at bedtime verapamil SR (CALAN SR, ISOPTIN SR) 240 mg CR tablet TAKE 1 TABLET BY MOUTH EVERYDAY AT BEDTIME 90 tablet 1 12/02/2018 12/14/2020 Discontinued Comment on above: Take 1 tablet by naveen th daily at bedtime. Completed/Discontinued Medications Medication Drug Class(es) Dates Sig (Normalized) Sig (Original) albuterol 0.833 mg/ml / ipratropium bromide 0.167 mg/ml inhalation solution (1 source) Anticholinergic, beta2-Adrenergic Agonist Start: 02-10-2023 End: 02-10-2023 ipratropium-albut steven 3 mL nebulizer solution (DUONEB) amiodarone hydrochloride 200 mg oral tablet (20 sources) Antiarrhythmic Start: 12-14-2020 End: 12-22-2021 take 1 tablet by mouth once daily amiodarone (PACERONE) 200 mg tablet Indications: Atrial fibrillation with rapid ventricular response (HCC) Take 1 tablet by mouth once daily. 90 tablet 3 12/14/2020 12/22/2021 Discontinued Start: 12-27-2018 End: 08-16-2020 take 1 tablet by mouth once daily amiodarone (PACERONE) 200 mg tablet Indications: Atrial fibrillation with rapid ventricular response (HCC) Take 200 mg by mouth once daily. 12/27/2018 08/16/2020 Discontinued Comment on above: Take 1 tablet by naveen th once daily. atropine sulfate 0.025 mg / diphenoxylate hydrochloride 2.5 mg oral tablet (20 sources) Anticholinergic, Cholinergic Muscarinic Antagonist, Antidiarrheal Start: End: diphenoxylate-atropine (LOMOTIL) 2.5-0.025 mg per tablet Indications: Diarrhea of presumed infectious origin Take 1 tablet with each watery stool, maximum 4 per day 12 tablet 12/17/2019 08/12/2021 Discontinued (Other) Comment on above: Take 1 tablet with e ach watery stool, maximum 4 per day azithromycin 250 mg oral tablet (1 source) Macrolide Antimicrobial Start: End: take 2 tablets by mouth once daily, then take 1 tablet by mouth once daily azithromycin (ZITHROMAX) 250 mg tablet Indications: Acute asthmatic bronchitis , Mild persistent asthma with acute exacerbation Take 2 tablets by mouth once daily for 1 day, THEN 1 tablet once daily for 4 days. 6 tablet 0 07/30/2023 08/04/2023 bifidobacterium bifidum [id number] unt / bifidobacterium longum [id number] unt oral capsule (20 sources) Start: 019 End: take 1 capsule by mouth once daily bifidobacteri bifid.and longum (FLORAJEN BIFIDOBLEND) 460 mg (9-1 bill.cell) cap Indications: Urinary frequency Take 1 capsule by mouth once daily. 30 capsule 1 01/27/2019 02/27/2023 Discontinued Comment on above: Take 1 capsule by [facility] once daily. cyclobenzaprine hydrochloride 10 mg oral tablet (20 sources) Muscle Relaxant Start: 023 End: cyclobenzaprine (FLEXERIL) 10 mg tablet End: 02-27-2023 cyclobenzaprine HCl (FLEXERI L ORAL) Take by mouth. 0 02/27/2023 Discontinued cyclobenzaprine HCl (FLEXERIL ORAL) Take by mouth. 0 Active Comment on above: Take by mouth. cycloSPORINE 0.5 mg/ml ophthalmic suspension (20 sources) Calcineurin Inhibitor Immunosuppressant Start: 07-19-19 19 End: 02-27-19 24 take 1 drop(s) into the eye(s) twice daily cycloSPORINE (RESTASIS) 0.05 % ophthalmic emulsion Indications: Environmental allergies Use 1 Drop in both eyes twice daily. Both eyes. 07/18/2018 02/27/2023 Discontinued Start: 07-18-2018 take 1 drop(s) into the eye(s) twice daily cycloSPORINE (RESTASIS) 0.05 % ophthalmic emulsion Indications: Environmental allergies Use 1 Drop in both eyes twice daily. Both eyes. 0 07/18/2018 Active Comment on above: Use 1 Drop in both e yes twice daily. Both eyes. dexamethasone 1 mg/ml / neomycin 3.5 mg/ml / polymyxin [id number] unt/ml ophthalmic suspension (11 sources) Aminoglycoside Antibacterial, Polymyxin-class Antibacterial, Corticosteroid Start: 023 End: 023 NEOMYCIN-POLYMYXIN- DEXAMETH 3.5 MG/ML-10,000 UNIT/ML-0.1% EYE DROPS 1 drop right eye four times a day for 1 week then three times a day for 1 week, then two times a day for 1 week, then once a day for 1 wk 5 mL 0 05/16/2022 11/25/2022 Discontinued Comment on above: 1 drop right eye fou r times a day for 1 week then three times a day for 1 week, then two times a day for 1 week, then once a day for 1 wk diclofenac sodium 0.01 mg/mg topical gel (20 sources) Nonsteroidal Anti-inflammatory Drug Start: 020 End: 023 apply 2 g topically four times daily diclofenac sodium (VOLTAREN) 1 % topical gel Apply 2 g to affected area four times daily. 400 g 2 05/16/2019 04/11/2022 Discontinued Comment on above: Apply 2 g to affecte d area four times daily. Docusate (10 sources) End: 024 docusate sodium (STOOL SOFTENER ORAL) Take by mouth once daily. 0 02/27/2023 Discontinued docusate sodium (STOOL SOFTENER ORAL) Take by mouth once daily. 0 Active Comment on above: Take by mouth once d aily. famotidine 20 mg oral tablet (7 sources) Histamine-2 Receptor Antagonist Start: 04-11-19 End: 07-01-19 take 1 tablet by mouth at bedtime as needed famotidine (PEPCID) 20 mg tablet Indications: Sacroiliitis (HCC) , Chronic bilateral low back pain with bilateral sciatica Take 1 tablet by mouth at bedtime as needed. 15 tablet 0 04/11/2022 06/30/2022 Discontinued (Course of therapy completed) Comment on above: Take 1 tablet by naveen th at bedtime as needed. fluticasone propionate 0.05 mg/actuat metered dose nasal spray (20 sources) Corticosteroid Start: 02-07-20 19 End: 03-19-19 take 2 spray(s) nasal route once daily fluticasone (FLONASE) 50 mcg/actuation nasal spray Indications: Environmental allergies Use 2 Sprays in each nostril once daily. 3 Bottle 3 02/06/2019 03/19/2023 Discontinued Comment on above: Use 2 Sprays in each nostril once daily. furosemide 20 mg oral tablet (5 sources) Loop Diuretic Start: 04-03-19 End: 06-08-19 24 take 1 tablet by mouth once daily furosemide (LASIX) 20 mg tablet Take 1 tablet by mouth once daily. 30 tablet 0 04/03/2023 06/08/2023 Discontinued (Course of therapy completed) Comment on above: Take 1 tablet by naveen th once daily. GLUC PEREZ/CHONDRO PEREZ A/VIT C/MN (GLUCOSAMINE 1500 COMPLEX ORAL) (20 sources) End: 08-13-19 GLUC PEREZ/CHONDRO PEREZ A/VIT C/MN (GLUCOSAMINE 1500 COMPLEX ORAL) Take 1 tablet by mouth once daily. 08/12/2021 Discontinued End: 08-12-2021 GLUC PEREZ/CHONDRO PEREZ A/VIT C/M N (GLUCOSAMINE 1500 COMPLEX ORAL) Take 1 tablet by mouth once daily. 0 08/12/2021 Discontinued GLUC PEREZ/CHONDRO PEREZ A/VIT C/MN (GLUCOSAMINE 1500 COMPLEX ORAL) Take 1 tablet by mouth once daily. 0 Active Comment on above: Take 1 tablet by naveen th once daily. 12 hr guaiFENesin 1200 mg extended release oral tablet (20 sources) End: guaiFENesin (MUCINEX) 1,200 mg Ta12 Take by mouth twice daily. 12/22/2021 Discontinued Comment on above: Take by mouth twice daily. ammonium lactate 120 mg/ml topical lotion (20 sources) Start: End: ammonium lactate (LAC-HYDRIN) 12 % lotion Apply 1 application to affected area as needed for Dry Skin (arms). 120 g 2 08/30/2018 12/14/2020 Discontinued Comment on above: Apply 1 application to affected area as needed for Dry Skin (arms). Apply 1 application to affected area once daily as needed for dry skin (arms). loratadine 10 mg oral tablet (20 sources) Start: End: take 1 tablet by mouth once daily loratadine (CLARITIN) 10 mg tablet Indications: Environmental allergies Take 1 tablet by mouth once daily. 30 tablet 11 07/18/2018 06/30/2022 Discontinued Comment on above: Take 1 tablet by naveen once daily. meloxicam 15 mg oral tablet (20 sources) Nonsteroidal Anti-inflammatory Drug Start: End: take 1 tablet by mouth once daily at mealtime meloxicam (MOBIC) 15 mg tablet Take 1 tablet by mouth once daily. With food. 14 tablet 1 03/05/2019 08/12/2021 Discontinued (Other) Comment on above: Take 1 tablet by naveen once daily. With food. montelukast 10 mg oral tablet (20 sources) Leukotriene Receptor Antagonist Start: End: take 1 tablet by mouth once daily at bedtime montelukast (SINGULAIR) 10 mg tablet Take 1 tablet by mouth daily at bedtime. 30 tablet 09/05/2019 08/12/2021 Discontinued (Other) Comment on above: Take 1 tablet by naveen daily at bedtime. nitrofurantoin, macrocrystals 25 mg / nitrofurantoin, monohydrate 75 mg oral capsule (3 sources) Nitrofuran Antibacterial Start: End: take 1 capsule by mouth twice daily nitrofurantoin monohydrate and macrocrystal (MACROBID) 100 mg capsule Take 1 capsule by mouth two times a day for 5 days. 10 capsule 0 07/26/2023 07/31/2023 predniSONE 20 mg oral tablet (3 sources) Start: End: take 2 tablets by mouth once daily predniSONE (DELTASONE) 20 mg tablet Indications: Acute asthmatic bronchitis , Mild persistent asthma with acute exacerbation Take 2 tablets by mouth once daily for 5 days. 10 tablet 0 07/30/2023 08/04/2023 Start: 02-10-2023 End: 02-15-2023 take 2 tablets by mouth once daily predniSONE (DELTASONE) 20 mg tablet Take 2 tablets by mouth once daily for 5 days. 10 tablet 0 02/10/2023 02/15/2023 Comment on above: Take 2 tablets by mo [facility] once daily for 5 days. thiamine 100 mg oral tablet (20 sources) Start: 9 End: 2 take 1 tablet by mouth once daily thiamine mononitrate (VITAMIN B1) 100 mg tab Take 1 tablet by mouth once daily. 30 tablet 1 07/30/2018 08/12/2021 Discontinued (Other) Comment on above: Take 1 tablet by naveen once daily. warfarin sodium 3 mg oral tablet (20 sources) Vitamin K Antagonist Start: End: 2 take 2 tablets by mouth once, then take 1 tablet by mouth once warfarin (COUMADIN) 3 mg tablet Indications: Atrial fibrillation with rapid ventricular response (HCC) , oysterman current use of anticoagulant therapy Take 2 tablets by mouth every Sunday,Sunday, y AND 1 tablet every Sunday,Sunday, y,Sunday. 135 tablet 3 12/14/2020 08/12/2021 Discontinued (Other) Start: 01-05-2020 End: 09-15-2020 take 2 tablets by mouth once, then take 1 tablet by mouth once warfarin (COUMADIN) 3 mg tablet Take 2 t ablets by mouth every Sunday,Sunday,Sunday AND 1 tablet every Sunday,Sunday,,Sunday. 135 tablet 3 01/12/2020 09/15/2020 Discontinued Comment on above: Take 2 tablets by mo uth every Sunday,Sunday,Sunday AND 1 tablet every Sunday,Sunday,,Sunday. Problems Active Problems Problem Classification Problem Date Documented Da te Episodic/Chronic Acquired foot deformities (1 source) Left foot drop; Translations: [Foot drop, left foot] Episodic Administrative/social admission (1 source) Financial problem; Translations: [Problem related to housing and economic circumstances, unspecified] Episodic Allergic reactions (20 sources) Environmental allergy; Translations: [Other allergy status, other than to drugs and biological substances] Onset: 8 04-16-2012 Episodic Asthma (20 sources) Exacerbation of mild persistent asthma; Translations: [Mild persistent asthma with (acute) exacerbation] Onset: 3 Chronic Chronic obstructive pulmonary disease and bronchiectasis (3 sources) Bronchitis; Translations: [Bronchitis, not specified as acute or chronic] Onset: 3 02-10-2023 Episodic Deficiency and other anemia (1 source) Anemia; Translations: [Anemia, unspecified] 07-08-2023 Episodic Disorders of lipid metabolism (20 sources) Mixed hyperlipidemia; Translations: [Mixed hyperlipidemia] Onset: 1 02-21-2021 Chronic E Codes: Fall (1 source) Fall; Translations: [Unspecified fall, initial encounter] Episodic Esophageal disorders (20 sources) Gastroesophageal reflux disease; Translations: [Gastro-esophageal reflux disease without esophagitis] Onset: 3 04-16-2012 Chronic Essential hypertension (20 sources) Essential hypertension; Translations: [Essential (primary) hypertension] Onset: 9 07-30-2018 Chronic Fluid and electrolyte disorders (1 source) Hypokalemia; Translations: [Hypokalemia] 07-08-2023 Episodic Genitourinary symptoms and ill-defined conditions (1 source) Scalding pain on urination ; Translations: [Dysuria] 07-26-2023 Episodic Headache; including migraine (20 sources) Migraine; Translations: [Migraine, unspecified, not intractable, without status migrainosus] 07-30-2018 Chronic Heart valve disorders (2 sources) Mitral valve regurgitation; Translations: [Nonrheumatic mitral (valve) insufficiency] Onset: 4 03-20-2023 Chronic Inflammation; infection of eye (except that caused by tuberculosis or sexually transmitteddisease) (1 source) Infection of right eye; 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, 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-25-2022 Chronic Malaise and fatigue (1 source) Asthenia; Translations: [Weakness] Episodic Osteoarthritis (20 sources) Osteoarthritis of right knee joint; Translations: [Unilateral primary osteoarthritis, right knee] Onset: 6 12-13-2015 Chronic Other and unspecified benign neoplasm (20 sources) History of polyp of colon; Translations: [Personal history of colonic polyps] 05-20-2014 Episodic Other connective tissue disease (1 source) Adhesive capsulitis of left shoulder; Translations: [Adhesive capsulitis of left shoulder] Episodic Other connective tissue disease (3 sources) Pain of right lower leg; Translations: [Pain in right lower leg] Episodic Other connective tissue disease (1 source) Pain in left foot; Translations: [Pain in left foot] Episodic Other eye disorders (2 sources) Blepharitis; Translations: [Edema of right eye, unspecified eyelid] Episodic Other eye disorders (1 source) Obstruction of lacrimal canaliculus; Translations: [Acquired stenosis of right nasolacrimal duct] Episodic Other eye disorders (1 source) Bilateral epiphora of eyes due to tear drainage disorder; Translations: [Epiphora due to insufficient drainage, bilateral] Episodic Other eye disorders (1 source) Acquired nasolacrimal duct obstruction; Translations: [Acquired stenosis of bilateral nasolacrimal duct] Episodic Other gastrointestinal disorders (20 sources) Irritable bowel syndrome; Translations: [Irritable bowel syndrome without diarrhea] 12-14-2011 Chronic Other gastrointestinal disorders (1 source) Irritable bowel syndrome without diarrhea; Translations: [Irritable bowel syndrome without diarrhea] Onset: 2 Chronic Other gastrointestinal disorders (1 source) Diarrhea; Translations: [Diarrhea, unspecified] 03-25-2023 Episodic Other lower respiratory disease (1 source) Cough; Translations: [Acute cough] 11-16-2022 Episodic Other nervous system disorders (1 source) Other chronic pain; Translations: [Chronic left shoulder pain] Onset: 3 Chronic Other non-traumatic joint disorders (20 sources) Arthropathy; Translations: [Arthropathy, unspecified] 12-14-2011 Chronic Other non-traumatic joint disorders (1 source) Chronic pain of left upper limb; Translations: [Pain in left shoulder] 01-01-2023 Episodic Other non-traumatic joint disorders (1 source) Pain of right wrist; Translations: [Pain in right wrist] 01-10-2023 Episodic Other screening for suspected conditions (not mental disorders or infectious disease) (7 sources) Patient encounter status; Translations: [Encounter for screening for lipoid disorders] Episodic Other upper respiratory disease (1 source) Allergic rhinitis; Translations: [Allergic rhinitis, unspecified] 07-04-2023 Chronic Other upper respiratory infections (1 source) Acute upper respiratory infection; Translations: [Acute upper respiratory infection, unspecified] 11-16-2022 Episodic Peripheral and visceral atherosclerosis (1 source) Ischemic colitis; Translations: [Vascular disorder of intestine, unspecified] 07-08-2023 Chronic Residual codes; unclassified (1 source) Pain; Translations: [Pain, unspecified] 11-15-2022 Episodic Residual codes; unclassified (1 source) Bilateral lower limb edema; Translations: [Localized edema] 07-08-2023 Episodic Spondylosis; intervertebral disc disorders; other back problems (20 sources) Inflammation of sacroiliac joint; Translations: [Sacroiliitis, not elsewhere classified] Onset: 3 Resolved: 4 Chronic Transient cerebral ischemia (4 sources) Transient cerebral ischemia; Translations: [Transient cerebral ischemic attack, unspecified] Chronic Urinary tract infections (1 source) Acute urinary tract infection; Translations: [Urinary tract infection, site not specified] 07-26-2023 Episodic Viral infection (1 source) Respiratory syncytial virus infection; Translations: [Other specified viral diseases] 04-12-2023 Episodic Past or Other Problems Problem Classification Problem Date Documented Date Episodic/Chronic Abdominal pain (20 sources) Left lower quadrant pain; Translations: [Left lower quadrant pain] Onset: 05-27-2018 05-27-2018 Episodic Calculus of urinary tract (20 sources) Kidney stone; Translations: [Calculus of kidney] Onset: 05-09-2018 05-27-2018 Episodic Cardiac dysrhythmias (20 sources) Atrial fibrillation with rapid ventricular response; Translations: [Unspecified atrial fibrillation] Onset: 12-30-2018 Resolved: 01-01-2023 12-30-2018 Chronic Conditions associated with dizziness or vertigo (20 sources) Benign paroxysmal positional vertigo; Translations: [Benign paroxysmal vertigo, unspecified ear] Onset: 04-04-2016 04-04-2016 Episodic Diabetes mellitus without complication (3 sources) Hyperglycemia; Translations: [Hyperglycemia, unspecified] Onset: 01-01-2023 Episodic Diverticulosis and diverticulitis (16 sources) Diverticulitis; Translations: [Diverticulitis of intestine, part unspecified, without perforation or abscess without bleeding] Resolved: 12-10-2020 12-10-2020 Chronic Fracture of upper limb (16 sources) Closed fracture of phalanx of finger; Translations: [Fracture of finger, middle or proximal phalanx, closed] Onset: 08-28-2012 Resolved: 12-10-2020 12-10-2020 Episodic Immunizations and screening for infectious disease (6 sources) Vaccination needed; Translations: [Encounter for immunization] Onset: 01-01-2023 Episodic Inflammation; infection of eye (except that caused by tuberculosis or sexually transmitteddisease) (20 sources) Dacryocystitis of right lacrimal sac; Translations: [Unspecified dacryocystitis of right lacrimal passage] Onset: 11-30-2022 01-01-2023 Episodic Noninfectious gastroenteritis (20 sources) Colitis; Translations: [Noninfective gastroenteritis and colitis, unspecified] Onset: 12-08-2021 01-01-2023 Episodic Nonspecific chest pain (20 sources) Chest pain; Translations: [Chest pain, unspecified] Onset: 01-01-2023 01-01-2023 Episodic Other circulatory disease (20 sources) History of transient ischemic attack; Translations: [Personal history of transient ischemic attack (TIA), and cerebral infarction without residual deficits] Onset: 07-29-2018 12-10-2020 Episodic Other connective tissue disease (1 source) Cramp and spasm; Translations: [Leg cramping] Onset: 03-19-2023 Episodic Other eye disorders (20 sources) Acquired stenosis of right nasolacrimal duct; Translations: [Acquired stenosis of right nasolacrimal duct] Onset: 11-30-2022 01-01-2023 Episodic Other injuries and conditions due to external causes (20 sources) Injury of right lower leg; Translations: [Unspecified injury of right lower leg, initial encounter] Onset: 01-31-2022 01-01-2023 Episodic Other lower respiratory disease (20 sources) H/O: asthma; Translations: [Personal history of other diseases of the respiratory system] Onset: 11-16-2022 11-16-2022 Episodic Other non-traumatic joint disorders (20 sources) Pain in right knee; Translations: [Pain in joint, lower leg] Onset: 12-13-2015 12-13-2015 Episodic Other non-traumatic joint disorders (1 source) Pain in left shoulder; Translations: [Chronic left shoulder pain] Onset: 01-01-2023 Episodic Other skin disorders (20 sources) Dry skin; Translations: [Xerosis cutis] Onset: 09-03-2018 09-03-2018 Episodic Other skin disorders (20 sources) Xeroderma; Translations: [Xerosis cutis] Onset: 09-03-2018 09-03-2018 Episodic Other skin disorders (16 sources) Sebaceous cyst of skin; Translations: [Sebaceous cyst] Onset: 05-15-2007 Resolved: 04-16-2012 04-16-2012 Episodic Residual codes; unclassified (1 source) Pain, unspecified; Translations: [Pain] Onset: 12-14-2022 Episodic Spondylosis; intervertebral disc disorders; other back problems (20 sources) Lumbago with sciatica; Translations: [Lumbago with sciatica, left side] Onset: 12-27-2017 12-27-2017 Episodic Superficial injury; contusion (20 sources) Hematoma of abdominal wall; Translations: [Contusion of abdominal wall, sequela] Onset: 11-09-2022 Episodic Results Test Name Value Interpretation Reference Range Facility [facility] ROMAIN BAI[facility] ([id number]) 1950 F CHT Date Time Provider Department 08/22/23 FATEMEH ROGERS INTMWS During your visit today, we recorded the following information about you: Narinder Jacques, RN 08/22/2023 9:55 AM Signed [facility]- reports the epinephrine (AUVI-Q), needs to be changed to generic epinephrine (epi pen) and re-sent to [facility]. Reports AUVI-Q is not covered. Pended. [facility] asking office to notify patient when new Rx is sent to [facility]. Stephanie Lam APRN.[facility] 08/22/2023 10:11 AM Signed New script sent. Allergies As of Date: 08/22/2023 Noted Allergy Reaction BACTRIM DS (SULFAMETHOXAZOLE-TRIM* 12/29/2014 10 - Anaphylaxis Comments: Difficulty breathing, fever, chills BEE STING 08/28/2012 10 - Anaphylaxis ADHESIVE TAPE (ROSINS) 12/05/2016 2 - Rash DARVON (PROPOXYPHENE HCL) 05/15/2007 INFLUENZA VIRUS VACCINES 01/07/2019 14 - Other: See Comments Comments: Chest tightness, arm swelling. PEPPER (GENUS CAPSICUM) 11/04/2022 4 - Hives Date Reviewed: 07/30/2023 Reviewed by: Franci Main LPN - Fully Assessed Reason for Visit: Medication Problem [65] Order(s):EPINEPHrine (EPIPEN) 0.3 mg/0.3 mL auto-injectorInject 0.3 ml intramuscular as needed.Disp: 2 EachRfl: 1 Prescriptions as of 08/22/2023 - EPINEPHrine (EPIPEN) 0.3 mg/0.3 mL auto-injector Inject 0.3 ml intramuscular as needed. - pantoprazole DR (PROTONIX) 20 mg tablet Take 1 tablet by mouth once daily. - atorvastatin (LIPITOR) 40 mg tablet Take 1 tablet by mouth once daily. - verapamil SR (CALAN SR) 240 mg CR tablet Take 1 tablet by mouth daily at bedtime. - apixaban (ELIQUIS) 5 mg tab(s) Take 1 tablet by mouth two times a day. Will start when delivered - albuterol HFA (PROVENTIL HFA, VENTOLIN HFA) 90 mcg/actuation inhaler Inhale 2 Puffs as instructed every 6 hours as needed. - metoprolol tartrate, short acting, (LOPRESSOR) 25 mg tablet Take 1 tablet by mouth two times a day. - fluticasone-salmeterol (ADVAIR DISKUS) 100-50 mcg/dose inhaler Inhale 1 Puff as instructed two times a day. RINSE AND GARGLE MOUTH WITH WATER AFTER EACH USE. - fluticasone (FLONASE) 50 mcg/actuation nasal spray Use 2 Sprays in each nostril once daily. - metoprolol tartrate, short acting, (LOPRESSOR) 25 mg tablet Take 1 tablet by mouth two times a day. - fluticasone-salmeterol (ADVAIR DISKUS) 250-50 mcg/dose inhaler Inhale 1 Puff as instructed two times a day. For Asthma flare. Resume Advair 100 after this one completed - benzonatate (TESSALON PERLES) 100 mg capsule Take 2 capsules by mouth three times a day as needed. - colestipol (COLESTID) 1 gram tablet Take 1 tablet by mouth as needed. - loratadine (CLARITIN) 10 mg tablet Take 1 tablet by mouth once daily. - albuterol (PROVENTIL) 2.5 mg /3 mL (0.083 %) nebulizer solution Use 3 mL via nebulizer every 4 hours as needed for wheezing/shortness of breath. Use over 5-15minutes. - ondansetron orally disintegrating (ZOFRAN ODT) 4 mg disintegrating tablet DISSOLVE 1 TABLET ON THE TONGUE EVERY 6 HOURS NEEDED FOR NAUSEA/VOMITING - meclizine (ANTIVERT) 25 mg tab Take 1 tablet by mouth every 6 hours as needed (dizziness). - Nebulizer NEBULIZER FOR HOME USE. DX: J45.20 Meds Comments as of 06/10/2021: August 26, 2019 The patient states the Warfarin dose is adjusted based on blood work. Lotus Sosa RN 08/19/2019: Patient is not taking Eliquis. currently on Loratadine, doxycycline, magnesium supplement. Lubna Armstrong RN 09/17/2019 8:20 AM Reviewed these new meds. Methylprednisilone and Macrobid. Do Ortiz RN Problem List As Of Date 08/22/2023 Noted Resolved Sebaceous cyst [L72.3] 05/15/2007 04/16/2012 Environmental allergies [Z91.09] Asthma [J45.909] Arthropathy, unspecified, site unspecified [M12* Essential hypertension [I10] IBS (irritable bowel syndrome) [K58.9] GERD (gastroesophageal reflux disease) [K21.9] Migraine [G43.909] Diverticulitis [K57.92] 12/10/2020 Hyperlipidemia, mixed [E78.2] Fracture of finger, middle or proximal phalanx,*08/28/2012 12/10/2020 History of colon polyps [Z86.010] Chronic pain of right knee [M25.561, G89.29] 12/13/2015 Primary osteoarthritis of right knee [M17.11] 12/13/2015 BPPV (benign paroxysmal positional vertigo) [H8*04/04/2016 Bee sting allergy [Z91.030] 12/11/2017 Bilateral low back pain with bilateral sciatica*12/27/2017 Calculus of kidney [N20.0] 05/09/2018 LLQ pain [R10.32] 05/27/2018 History of TIA (transient ischemic attack) [Z86*07/29/2018 Dry skin [L85.3] 09/03/2018 Atrial fibrillation with rapid ventricular resp*12/30/2018 01/01/2023 Sacroiliitis (HCC) [M46.1] 04/14/2022 08/03/2023 History of asthma [Z87.09] 11/16/2022 Acquired stenosis of nasolacrimal duct, right [*11/30/2022 Unspecified dacryocystitis of right lacrimal pa*11/30/2022 Unspecified injury of (more content not included)... Normal [facility] CNOVon 07-30-2023 CNOV Office Visit (INTMWS ) ROMAIN BAILEY ([id number]) 1950 F CHT Date Time Provider Department 07/30/23 10:20 AM FATEMEH ROGERS INTMWS During your visit today, we recorded the following information about you: Temperature Pulse Respiration Blood pressure 98.4 degrees 84/minute 18/minute 127/73 Weight 88.9 kg Fatemeh Rogers MD 08/30/2023 10:31 PM Signed This note was created using Consertter. Subjective Romain Bailey is a 73 year old female. Patient presents with: Cough: X 2 days cough, chest tightness,scratchy throat fever of 101 on Sunday SUBJECTIVE: Romain Bailey is a 73 year old year old lady here today for acute appointment for review of medical conditions: cough and wheezing starting Sunday. Worse by Sunday. Scratchy throat, tightness in upper mid- chest and SOB.Trouble falling asleep. Throat was sore at first. BFelt like had band arond her head--Tylenol helped for this 101 fever at home. Shivering with chills. Albuterol MDI helps for a little while. Has not increased to Advair 250 yet. No ill contacts. Macrobid was given for UTI recently. No baseline bone density on file. Does feel tight in throat. Voice gets hoarse at times. PAST MEDICAL HISTORY Diagnosis Date Arthropathy, unspecified, site unspecified Asthma Back pain Calculus of kidney 05/09/2018 Colon polyps 2014 Diverticulitis 2000 Environmental allergies GERD (gastroesophageal reflux disease) Hyperlipidemia lifestyle controlled Hypertension IBS (irritable bowel syndrome) Migraine Obesity Pseudophakia 12/2021 both Current Outpatient Medications Medication Sig nitrofurantoin monohydrate and macrocrystal (MACROBID) 100 mg capsule Take 1 capsule by mouth two times a day for 5 days. albuterol HFA (PROVENTIL HFA, VENTOLIN HFA) 90 mcg/actuation inhaler Inhale 2 Puffs as instructed every 6 hours as needed. EPINEPHrine (AUVI-Q) 0.3 mg/0.3 mL auto-injector Inject 0.3 mL intramuscularly as needed. fluticasone-salmeterol (ADVAIR DISKUS) 100-50 mcg/dose inhaler Inhale 1 Puff as instructed two times a day. RINSE AND GARGLE MOUTH WITH WATER AFTER EACH USE. fluticasone (FLONASE) 50 mcg/actuation nasal spray Use 2 Sprays in each nostril once daily. metoprolol tartrate, short acting, (LOPRESSOR) 25 mg tablet Take 1 tablet by mouth two times a day. fluticasone-salmeterol (ADVAIR DISKUS) 250-50 mcg/dose inhaler Inhale 1 Puff as instructed two times a day. For Asthma flare. Resume Advair 100 after this one completed benzonatate (TESSALON PERLES) 100 mg capsule Take 2 capsules by mouth three times a day as needed. colestipol (COLESTID) 1 gram tablet Take 1 tablet by mouth as needed. verapamil SR (CALAN SR) 240 mg CR tablet Take 1 tablet by mouth daily at bedtime. atorvastatin (LIPITOR) 40 mg tablet Take 1 tablet by mouth once daily. pantoprazole DR (PROTONIX) 20 mg tablet Take 1 tablet by mouth once daily. loratadine (CLARITIN) 10 mg tablet Take 1 tablet by mouth once daily. albuterol (PROVENTIL) 2.5 mg /3 mL (0.083 %) nebulizer solution Use 3 mL via nebulizer every 4 hours as needed for wheezing/shortness of breath. Use over 5-15minutes. apixaban (ELIQUIS) 5 mg tab(s) Take 5 mg by mouth twice daily. Will start when delivered ondansetron orally disintegrating (ZOFRAN ODT) 4 mg disintegrating tablet DISSOLVE 1 TABLET ON THE TONGUE EVERY 6 HOURS NEEDED FOR NAUSEA/VOMITING meclizine (ANTIVERT) 25 mg tab Take 1 tablet by mouth every 6 hours as needed (dizziness). Nebulizer NEBULIZER FOR HOME USE. DX: J45.20 metoprolol tartrate, short acting, (LOPRESSOR) 25 mg tablet Take 1 tablet by mouth two times a day. (Patient not taking: Reported on 07/30/2023) No current facility-administered medications for this visit. Review of Systems Objective BP 127/73 Pulse 84 Temp 36.9 ?C (98.4 ?F) Resp 18 Wt 88.9 kg (196 lb) SpO2 95% BMI 31.64 kg/m? Physical Exam Constitutional: General: She is not in acute distress. Appearance: Normal appearance. She is ill-appearing. She is not toxic-appearing or diaphoretic. HENT: Head: Normocephalic. Eyes: Conjunctiva/sclera: Conjunctivae normal. Cardiovascular: Rate and Rhythm: Normal rate and regular rhythm. Heart sounds: Normal heart sounds. Pulmonary: Effort: Pulmonary effort is normal. No respiratory distress. Breath sounds: Stridor (intermittent; able to relax throat and this resolves) present. Wheezing present. No rhonchi or rales. Chest: Chest wall: Tenderness (left mid chest MCL and along sternal border) present. Skin: General: Skin is warm and dry. Neurological: General: No focal deficit present. Mental Status: She is alert and oriented to person, place, and time. Psychiatric: Mood and Affect: Mood normal. Behavior: Behavior normal. Thought Content: Thought content normal. Judgment: Judgment normal. Assessmen (more content not included)... Normal [facility] Bacteria Ur Culton 4 Bacteria identified Cx Nom (U) ORGANISM ID: [id number] >=100,000 CFU/ml Escherichia coli ORGANISM ID: [id number] (ESCHERICHIA COLI) ANTIBIOTIC INTERPRETATION CARITO STATUS REFERENCE RANGE Ampicillin S 4 F Susceptible <=8 , Intermediate >8 , Resistant >16 Cefazolin S <=4 F Susceptible 0-16 , Intermediate <0 or >16 , Resistant >16 For uncomplicated urinary tract infections, cefazolin results can be used to predict susceptibility or resistance to cephalexin. Ceftriaxone S <=1 F Susceptible <=1 , Intermediate >1 , Resistant >=4 Cefepime S <=1 F Susceptible <=2 , Susceptible-Dose Dependent >2 , Resistant >=16 Ertapenem S <=0.5 F Susceptible <=0.5 , Intermediate >.5 , Resistant >1 Meropenem S <=0.25 F Susceptible <=1 , Intermediate >1 , Resistant >2 Ampicillin/Sulbact S <=2 F Susceptible <=8 , Intermediate >8 , Resistant >16 Piperacillin/Tazobac S <=4 F Susceptible <16 , Susceptible-Dose Dependent >=16 , Resistant >=32 Gentamicin S <=1 F Susceptible <=2 , Intermediate >2 , Resistant >=8 Tobramycin S <=1 F Susceptible <4 , Intermediate >=4 , Resistant >=8 Trimeth sulfameth S <=20 F Susceptible <=40 , Resistant >40 Ciprofloxacin S <=0.25 F Susceptible <0.5 , Intermediate >=.5 , Resistant >=1 Nitrofurantoin S <=16 F Susceptible <=32 , Intermediate >32 , Resistant >64 Abnormal [facility] Comment on above: Performed By: #### 6 ####[facility] [id number] [address] [place] CNOVon 07-26-2023 CNOV Office Visit (UCWSTR ) ROMAIN [id number]) 1950 F CHT Date Time Provider Department 07/26/23 11:00 AM [facility]ABEEL AD[facility] During your visit today, we recorded the following information about you: Temperature Pulse Respiration Blood pressure 98.1 degrees 73/minute 18/minute 155/67 Weight 89.7 kg Nabeel Adan PA 07/26/2023 11:04 AM Signed This note was created using NoteWriter. Subjective Romain Bailey is a 73 year old female. HPI 73-year-old female presents for UTI symptoms. Symptoms started 2 days ago. She has been having burning with urination, urgency, frequency. Has not noticed any blood in the urine. No abdominal pain. Has a little bit of low back pain. No fevers or vomiting. Has had UTIs in the past, but none recently. No other complaint. PAST MEDICAL HISTORY Diagnosis Date Arthropathy, unspecified, site unspecified Asthma Back pain Calculus of kidney 05/09/2018 Colon polyps 2013 Diverticulitis 2000 Environmental allergies GERD (gastroesophageal reflux disease) Hyperlipidemia lifestyle controlled Hypertension IBS (irritable bowel syndrome) Migraine Obesity Pseudophakia 12/2021 both PAST SURGICAL HISTORY Procedure Laterality Date CHOLECYSTECTOMY ~2003 Cholecystectomy laparoscopic COLONOSCOPY AND POLYPECTOMY 12/03/2013 tubular adenoma, hyperplastic polyp; repeat due in 5y COLONOSCOPY FLX DX W/COLLJ SPEC WHEN PFRMD 05/29/2018 Colonoscopy DEBRIDEMENT SUBCUTANEOUS TISSUE 20 SQ CM/< 05/15/2007 Debridement infected moira cyst upper mid back PAST SURGICAL HISTORY OF 1984 metal removed from right tibial area PAST SURGICAL HISTORY OF [facility] PAST SURGICAL HISTORY OF Right 11/2022 Tear duct bocklage lanced TOTAL ABDOMINAL HYSTERECT W/WO RMVL TUBE OVARY 1999 MAURICE/BSO-pain, no abnormal paps ALLERGIES Bactrim Ds [Sulfamethoxazole-Trime thoprim], Bee Sting, Adhesive Tape (Rosins), Darvon [Propoxyphene Hcl], Influenza Virus Vaccines, and Pepper (Genus Capsicum) MEDICATIONS nitrofurantoin monohydrate and macrocrystal (MACROBID) 100 mg capsule Take 1 capsule by mouth two times a day for 5 days. albuterol HFA (PROVENTIL HFA, VENTOLIN HFA) 90 mcg/actuation inhaler Inhale 2 Puffs as instructed every 6 hours as needed. EPINEPHrine (AUVI-Q) 0.3 mg/0.3 mL auto-injector Inject 0.3 mL intramuscularly as needed. metoprolol tartrate, short acting, (LOPRESSOR) 25 mg tablet Take 1 tablet by mouth two times a day. fluticasone-salmeterol (ADVAIR DISKUS) 100-50 mcg/dose inhaler Inhale 1 Puff as instructed two times a day. RINSE AND GARGLE MOUTH WITH WATER AFTER EACH USE. fluticasone (FLONASE) 50 mcg/actuation nasal spray Use 2 Sprays in each nostril once daily. metoprolol tartrate, short acting, (LOPRESSOR) 25 mg tablet Take 1 tablet by mouth two times a day. fluticasone-salmeterol (ADVAIR DISKUS) 250-50 mcg/dose inhaler Inhale 1 Puff as instructed two times a day. For Asthma flare. Resume Advair 100 after this one completed benzonatate (TESSALON PERLES) 100 mg capsule Take 2 capsules by mouth three times a day as needed. colestipol (COLESTID) 1 gram tablet Take 1 tablet by mouth as needed. verapamil SR (CALAN SR) 240 mg CR tablet Take 1 tablet by mouth daily at bedtime. atorvastatin (LIPITOR) 40 mg tablet Take 1 tablet by mouth once daily. pantoprazole DR (PROTONIX) 20 mg tablet Take 1 tablet by mouth once daily. loratadine (CLARITIN) 10 mg tablet Take 1 tablet by mouth once daily. albuterol (PROVENTIL) 2.5 mg /3 mL (0.083 %) nebulizer solution Use 3 mL via nebulizer every 4 hours as needed for wheezing/shortness of breath. Use over 5-15minutes. apixaban (ELIQUIS) 5 mg tab(s) Take 5 mg by mouth twice daily. Will start when delivered ondansetron orally disintegrating (ZOFRAN ODT) 4 mg disintegrating tablet DISSOLVE 1 TABLET ON THE TONGUE EVERY 6 HOURS NEEDED FOR NAUSEA/VOMITING meclizine (ANTIVERT) 25 mg tab Take 1 tablet by mouth every 6 hours as needed (dizziness). Nebulizer NEBULIZER FOR HOME USE. DX: J45.20 FAMILY HISTORY Problem Relation Age of Onset None Mother from fall Diabetes Father Ischemic Heart Disease Father d. [place] Ischemic Heart Disease Maternal Grandfather carolyn ZAIDI while holding her at 4mo Blindness Brother Heart Attack Brother Social History Tobacco Use Smoking status: Never Smokeless tobacco: Never Vaping Use Vaping Use: Never used Substance Use Topics Alcohol use: No Drug use: No Review of Systems Constitutional: Negative for chills and fever. HENT: Negative for congestion, ear pain and sore throat. Respiratory: Negative for cough and shortness of breath. Cardiovascular: Negative for chest pain. Gastrointestinal: Negative for abdominal pain, diarrhea and vomiting. Genitourinary: Positive for dysuria, frequency and urgency. Negative for hematuria, vaginal discharge (more content not included)... Normal [facility] UA DIP, URINE (POC)on 2023 BILIRUBIN UA (POCT) Negative Negative [facility] CLARITY UA (POCT) Cloudy [facility] COLOR UA (POCT) Yellow [facility] GLUCOSE UA (POCT) Negative Negative mg/dL [facility] Hemoglobin Ql (U) Small Abnormal Negative [facility] Interpretation and review of laboratory results Abnormal [facility] KETONE UA (POCT) Negative Negative mg/dL [facility] LEUKOCYTES UA (POCT) Moderate Abnormal Negative [facility] NITRITE UA (POCT) Negative Negative [facility] PH UA (POCT) 6.5 4.5 - 8.0 [facility] Protein Ql (U) 30 mg/dL Abnormal Negative [facility] SPECIFIC GRAVITY UA (POCT) 1.020 1.005 - 1.030 [facility] UROBILINOGEN UA (POCT) 0.2 Normal E.U./dL [facility] Location:[address], [place], [address] [facility] POINT OF CARE [facility] CNOVon 07-04-2023 CNOV Office Visit (INTMWS ) ROMAIN BAILEY ([id number]) 1950 F T Date Time Provider Department 07/04/23 9:00 AM FATEMEH ROGERS INTMWS During your visit today, we recorded the following information about you: Temperature Pulse Respiration Blood pressure 98.5 degrees 78/minute 18/minute 138/70 Weight 89.4 kg Fatemeh Rogers MD 08/03/2023 12:20 AM Signed This note was created using [employer]. Subjective Romain Bailey is a 73 year old female. Patient presents with: F/U 6 months SUBJECTIVE: Romain Bailey is a 73 year old year old lady here today for 6 month follow up appointment for review of medical conditions. Stable on current meds. Losing weigh successfully. Not as hungry. Drinking more water to stay hydrated. Water before and after meals. Has tea and lemonade too. 60 ounces of water from her bottle per day. BMs better and urinating better. Dog was sick since I last saw her. Doing better. GI issues. Has HCDPOA . Working on LW. Surrogate Decision makers--Anne-Marie Moise and Yoel (3 children) Friend is her GI provider now. Will follow up with him for colonoscopy screening for colon cancer. PAST MEDICAL HISTORY Diagnosis Date Arthropathy, unspecified, site unspecified Asthma Back pain Calculus of kidney 05/09/2018 Colon polyps 2014 Diverticulitis 2000 Environmental allergies GERD (gastroesophageal reflux disease) Hyperlipidemia lifestyle controlled Hypertension IBS (irritable bowel syndrome) Migraine Obesity Pseudophakia 12/2021 both Current Outpatient Medications Medication Sig metoprolol tartrate, short acting, (LOPRESSOR) 25 mg tablet Take 1 tablet by mouth two times a day. fluticasone-salmeterol (ADVAIR DISKUS) 100-50 mcg/dose inhaler Inhale 1 Puff as instructed two times a day. RINSE AND GARGLE MOUTH WITH WATER AFTER EACH USE. fluticasone (FLONASE) 50 mcg/actuation nasal spray Use 2 Sprays in each nostril once daily. metoprolol tartrate, short acting, (LOPRESSOR) 25 mg tablet Take 1 tablet by mouth two times a day. fluticasone-salmeterol (ADVAIR DISKUS) 250-50 mcg/dose inhaler Inhale 1 Puff as instructed two times a day. For Asthma flare. Resume Advair 100 after this one completed benzonatate (TESSALON PERLES) 100 mg capsule Take 2 capsules by mouth three times a day as needed. colestipol (COLESTID) 1 gram tablet Take 1 tablet by mouth as needed. verapamil SR (CALAN SR) 240 mg CR tablet Take 1 tablet by mouth daily at bedtime. atorvastatin (LIPITOR) 40 mg tablet Take 1 tablet by mouth once daily. pantoprazole DR (PROTONIX) 20 mg tablet Take 1 tablet by mouth once daily. loratadine (CLARITIN) 10 mg tablet Take 1 tablet by mouth once daily. albuterol HFA (PROVENTIL HFA, VENTOLIN HFA) 90 mcg/actuation inhaler Inhale 2 Puffs as instructed every 6 hours as needed. albuterol (PROVENTIL) 2.5 mg /3 mL (0.083 %) nebulizer solution Use 3 mL via nebulizer every 4 hours as needed for wheezing/shortness of breath. Use over 5-15minutes. apixaban (ELIQUIS) 5 mg tab(s) Take 5 mg by mouth twice daily. Will start when delivered ondansetron orally disintegrating (ZOFRAN ODT) 4 mg disintegrating tablet DISSOLVE 1 TABLET ON THE TONGUE EVERY 6 HOURS NEEDED FOR NAUSEA/VOMITING EPINEPHrine (AUVI-Q) 0.3 mg/0.3 mL auto-injector Inject 0.3 mL intramuscularly as needed. meclizine (ANTIVERT) 25 mg tab Take 1 tablet by mouth every 6 hours as needed (dizziness). Nebulizer NEBULIZER FOR HOME USE. DX: J45.20 No current facility-administered medications for this visit. Review of Systems Objective BP 138/70 Pulse 78 Temp 36.9 ?C (98.5 ?F) Resp 18 Wt 89.4 kg (197 lb) SpO2 99% BMI 31.80 kg/m? Last 5 Encounter Wt Readings: Date: Wt: 07/04/2023 89.4 kg (197 lb) 06/08/2023 91.2 kg (201 lb) 03/19/2023 92.5 kg (204 lb) 03/12/2023 93 kg (205 lb) 02/27/2023 89.5 kg (197 lb 6.4 oz) No waist measurement recorded Estimated body mass index is 31.8 kg/m? as calculated from the following: Height as of 08/10/22: 167.6 cm (5' 6 ). Weight as of this encounter: 89.4 kg (197 lb). Last 5 Encounter BP Readings: Date: BP: 07/04/2023 138/70 06/08/2023 118/64 03/19/2023 136/73 03/12/2023 129/71 02/27/2023 122/72 Physical Exam Constitutional: Appearance: Normal appearance. HENT: Head: Normocephalic. Eyes: Conjunctiva/sclera: Conjunctivae normal. Cardiovascular: Rate and Rhythm: Normal rate and regular rhythm. Heart sounds: Murmur heard. Systolic murmur is present with a grade of 2/6. Pulmonary: Effort: Pulmonary effort is normal. Breath sounds: Normal breath sounds. Musculoskeletal: Right lower leg: No edema. Left lower leg: No edema. Comments: Wears brace for left ankle Skin: General: Skin is warm and dry. Neurological: General: No focal deficit present. Mental Status: She is alert and oriented to person, yuniel (more content not included)... Normal [facility] CNOVon 06-08-2023 CNOV Office Visit (INTMWS ) ROMAIN BAILEY ([id number]) 1950 F T Date Time Provider Department 06/08/23 10:00 AM FATEMEH ROGERS INTMWS During your visit today, we recorded the following information about you: Temperature Pulse Respiration Blood pressure 98.3 degrees 96/minute 18/minute 118/64 Weight 91.2 kg Fatemeh Rogers MD 07/08/2023 11:45 PM Signed Transitional Care Management TCM Eligibility Documentation The following information was gathered during patient outreach 05/31/2023 05/31/2023 Date of Outreach: Outreach Attempt 1: Contact Made Contact Not Made Date of Discharge 05/30/2023 05/30/2023 SUMMARY: -Pt discharged from [facility] on 05/30/2023. -Admitted for: Discharge Diagnosis (1) Ischemic colitis: Status: Acute Code(s): K55.9 - Vascular disorder of intestine, unspecified (2) GI bleed: Status: Acute Code(s): K92.2 - Gastrointestinal hemorrhage, unspecified Qualifiers: GI bleed type/associated pathology: unspecified gastrointestinal hemorrhage type Qualified Code(s): K92.2 - Gastrointestinal hemorrhage, unspecified Plan #Acute lower GI bleed * Thought to be due to ischemic colitis. CT of the abdomen and pelvis showed evidence of ischemic colitis. * Eliquis currently on hold. On PPI. Tolerating clear liquid diet. Advance to transitional diet today. * On Cipro and Flagyl. General surgery on board. #Acute blood loss anemia due to GI bleed: Hemoglobin today is 8. Monitor closely and transfuse if hemoglobin falls less than 7. #Hypokalemia: Resolved. Potassium is 3.7 today. #Paroxysmal A-fib: Eliquis currently on hold. On metoprolol. Per general surgery, resume Eliquis tonight. #Hypertension: On metoprolol and verapamil #Hyperlipidemia: on statin. #COPD: Not in exacerbation. Breathing treatments bronchodilators. # DVT Prophylaxis: SCDs ' Disposition: For discharge tomorrow if she does not bleed after resuming Eliquis. Medications at Discharge Home Medications epinephrine 0.3 mg/0.3 mL injection, auto-injector 0.3 mg IM X1 ALLERGIC REACTIONS 05/04/13 loratadine 10 mg tablet 10 mg PO DAILY ALLERGIES 05/04/13 albuterol sulfate 90 mcg/actuation aerosol inhaler 2 puff inhalation Q6H PRN SobAND/Or Wheezing 12/26/15 meclizine 25 mg tablet 25 mg PO Q6H PRN Dizziness 03/28/16 fluticasone propionate 50 mcg/actuation nasal spray,suspension 2 spray NASAL DAILY PRN Allergies 07/02/18 albuterol sulfate 2.5 mg/3 mL (0.083 %) solution for nebulization 2.5 mg inhalation Q4H PRN Sob AND/Or Wheezing 12/04/18 verapamil 240 mg tablet,extended release 240 mg PO DAILY BP #90 tabs 12/30/19 atorvastatin 40 mg tablet 40 mg PO DAILY cholesterol 11/18/21 dicyclomine 10 mg capsule 10 mg PO BID PRN abdominal discomfort #30 caps 02/02/22 pantoprazole 40 mg tablet,delayed release See Rx Instructions .Route .COMPLEX stomach #90 tabs 06/12/22 apixaban 5 mg tablet (Eliquis) 5 mg PO BID thinner #180 tabs 09/15/22 colestipol 1 gram tablet 1 g PO BID med 30 days #60 tabs 10/25/22 metoprolol tartrate 25 mg tablet 25 mg PO BID 30 days #60 tabs 02/20/23 Provider Documentation Romain Bailey is a 73 year old female here today for a follow up from recent hospitalization. I have reviewed the patient's hospital course including discharge summary, discharge medications , and follow up needs with the patient and any family members present at today's visit. HPI Patient presents with: Hospital F/U SUBJECTIVE: Romain Bailey is a 73 year old year old lady here today for [facility] follow up appointment for review of medical conditions. Subjective The patient was admitted to the hospital on May 25 and discharged on May 29 after a diagnosis of acute ischemic colitis and anemia. She was seen by Dr. Aleman and s follow up next week. She required blood transfusions during the hospitalization. The patient reports no current blood in stools or abdominal pain. The patient began having bowel movements on Sunday evening after being discharged from the hospital, and has been experiencing more regular bowel movements since Sunday. The stools are mostly normal, with some being a little firm. The patient has been consuming between 60 and 90 ounces of water and other liquids daily to prevent stools from getting too hard. The patient reports feeling tired but not lightheaded or dizzy. The patient has been maintaining a bland diet of chicken, pasta, and scrambled eggs. The patient reports mild tenderness in the lower abdomen but no severe pain. The patient also reports swelling in the legs, particularly on the left side, which is managed with support stockings. Noted that she was tired from her own illness but also from her dog developing similar issues that she'd had. Dog is doing better. PAST MEDICAL HISTORY Diagnosis Date Arthropathy, unspecified, site unspecified Asthma Back (more content not included)... [facility] ROM[facility] ([id number]) 1950 F CHT Date Time Provider Department 04/11/23 FATEMEH ROGERS During your visit today, we recorded the following information about you: Aung RashmiMARIELA keller 04/11/2023 10:25 AM Signed Called pt to review that the office did rec'd order request from [employer] for an over night pulse ox. Pt declines this. She notes not using O2. She hasn't used since Andriy appt with pcp and [employer]. She would like the O2 discontinued. She asked [facility] to remove but they told her d/c order is needed from pcp's office. Please review and print order to d/c We can fax this to [employer] at [phone]. Pt reports no noted shortness of breathe at all and not on exertion. Faith Mullins APRN.TONI 04/12/2023 9:30 AM Signed At her visit in February she reported using oxygen at night, check to see if doing this at all now. Does she have any pulse ox readings from at home? If so would be good to have her most recent. Once we obtain this information can complete a letter and send it as requested. Elise Knox LPN 04/12/2023 11:00 AM Signed Spoke with patient and she is no longer using oxygen. States it is no longer needed. She has pulse ox at home and uses it frequently and pulse ox's have been good with the last reading on 04/08/23 of 97% Faith Mullins APRN.MEDICAL PAYMENT POSTER 04/12/2023 3:44 PM Signed OK printed order, please process Elise Knox LPN 04/12/2023 4:30 PM Signed Order has been faxed Allergies As of Date: 04/11/2023 Noted Allergy Reaction ADHESIVE TAPE (ROSINS) 12/05/2016 2 - Rash BACTRIM DS (SULFAMETHOXAZOLE-TRIM* 12/29/2014 10 - Anaphylaxis Comments: Difficulty breathing, fever, chills BEE STING 08/28/2012 10 - Anaphylaxis DARVON (PROPOXYPHENE HCL) 05/15/2007 INFLUENZA VIRUS VACCINES 01/07/2019 14 - Other: See Comments Comments: Chest tightness, arm swelling. Date Reviewed: 03/19/2023 Reviewed by: Faith Mullins APRN.MEDICAL PAYMENT POSTER - Fully Assessed Reason for Visit: f/u on DME request from [employer] [Other] Primary Visit Diagnosis:RSV (respiratory syncytial virus infection) [B33.8] Other Visit Diagnoses:Atrial fibrillation with rapid ventricular response (HCC) [I48.91] Mild persistent asthma without complication [J45.30] Order(s):DISCONTINUE HOME OXYGEN [[id number]] Order #: [id number] Prescriptions as of 04/12/2023 - furosemide (LASIX) 20 mg tablet Take 1 tablet by mouth once daily. - potassium chloride SR (MICRO-K) 8 mEq cpER Take 1 capsule by mouth once daily. - fluticasone (FLONASE) 50 mcg/actuation nasal spray Use 2 Sprays in each nostril once daily. - metoprolol tartrate, short acting, (LOPRESSOR) 25 mg tablet Take 1 tablet by mouth two times a day. - fluticasone-salmeterol (ADVAIR DISKUS) 250-50 mcg/dose inhaler Inhale 1 Puff as instructed two times a day. For Asthma flare. Resume Advair 100 after this one completed - benzonatate (TESSALON PERLES) 100 mg capsule Take 2 capsules by mouth three times a day as needed. - colestipol (COLESTID) 1 gram tablet Take 1 tablet by mouth as needed. - verapamil SR (CALAN SR) 240 mg CR tablet Take 1 tablet by mouth daily at bedtime. - atorvastatin (LIPITOR) 40 mg tablet Take 1 tablet by mouth once daily. - pantoprazole DR (PROTONIX) 20 mg tablet Take 1 tablet by mouth once daily. - fluticasone-salmeterol (ADVAIR DISKUS) 100-50 mcg/dose inhaler Inhale 1 Puff as instructed twice daily. RINSE AND GARGLE MOUTH WITH WATER AFTER EACH USE. - loratadine (CLARITIN) 10 mg tablet Take 1 tablet by mouth once daily. - albuterol HFA (PROVENTIL HFA, VENTOLIN HFA) 90 mcg/actuation inhaler Inhale 2 Puffs as instructed every 6 hours as needed. - albuterol (PROVENTIL) 2.5 mg /3 mL (0.083 %) nebulizer solution Use 3 mL via nebulizer every 4 hours as needed for wheezing/shortness of breath. Use over 5-15minutes. - apixaban (ELIQUIS) 5 mg tab(s) Take 5 mg by mouth twice daily. Will start when delivered - ondansetron orally disintegrating (ZOFRAN ODT) 4 mg disintegrating tablet DISSOLVE 1 TABLET ON THE TONGUE EVERY 6 HOURS NEEDED FOR NAUSEA/VOMITING - EPINEPHrine (AUVI-Q) 0.3 mg/0.3 mL auto-injector Inject 0.3 mL intramuscularly as needed. - meclizine (ANTIVERT) 25 mg tab Take 1 tablet by mouth every 6 hours as needed (dizziness). - Nebulizer NEBULIZER FOR HOME USE. DX: J45.20 Meds Comments as of 06/10/2021: August 26, 2019 The patient states the Warfarin dose is adjusted based on blood work. Lotus Sosa RN 08/19/2019: Patient is not taking Eliquis. currently on Loratadine, doxycycline, magnesium supplement. Lubna Armstrong RN 09/17/2019 8:20 AM Reviewed these new meds. Methylprednisilone and Macrobid. Do Ortiz, CHAPARRITA Problem List As Of Date 04/11/2023 Noted Resolved Sebaceous cyst [L72.3] 05/15/2007 04/16/2012 Environmental allergies [Z91.09] Asthma [J45.909] Arthropathy, unspecified, si (more content not included)... Normal [facility] 04-06-2023 C[facility] Telephone (INTMWS) ROMAIN BAILEY ([id number]) 1950 F CHT Date Time Provider Department 04/06/23 FATEMEH ROGERS INTMWS During your visit today, we recorded the following information about you: Bobbi Crockett 04/06/2023 1:00 PM Signed Patient's daughter calling for a new Rx for Romain's handicap placard. Please call her when ready at [phone] and she will pick it up. Susu James MA 04/06/2023 2:04 PM Signed Order pended, please file if agreeable. NANDO Maguire Terri, APRN.MEDICAL PAYMENT POSTER 04/06/2023 3:55 PM Signed Printed, please process Bijal Mcdonald LPN 04/06/2023 4:29 PM Signed Letter is ready for pick up worker in Medical Records. Left message for daughter. Allergies As of Date: 04/06/2023 Noted Allergy Reaction ADHESIVE TAPE (ROSINS) 12/05/2016 2 - Rash BACTRIM DS (SULFAMETHOXAZOLE-TRIM* 12/29/2014 10 - Anaphylaxis Comments: Difficulty breathing, fever, chills BEE STING 08/28/2012 10 - Anaphylaxis DARVON (PROPOXYPHENE HCL) 05/15/2007 INFLUENZA VIRUS VACCINES 01/07/2019 14 - Other: See Comments Comments: Chest tightness, arm swelling. Date Reviewed: 03/19/2023 Reviewed by: Faith Mullins APRN.MEDICAL PAYMENT POSTER - Fully Assessed Reason for Visit: Handicap Placard [Other] Primary Visit Diagnosis:Atrial fibrillation with RVR (HCC) [I48.91] Other Visit Diagnoses:Atrial fibrillation with rapid ventricular response (HCC) [I48.91] TIA (transient ischemic attack) [G45.9] Order(s):PARKING FOR HANDICAPPED [[id number]] Order #: [id number] Prescriptions as of 04/10/2023 - furosemide (LASIX) 20 mg tablet Take 1 tablet by mouth once daily. - potassium chloride SR (MICRO-K) 8 mEq cpER Take 1 capsule by mouth once daily. - fluticasone (FLONASE) 50 mcg/actuation nasal spray Use 2 Sprays in each nostril once daily. - metoprolol tartrate, short acting, (LOPRESSOR) 25 mg tablet Take 1 tablet by mouth two times a day. - fluticasone-salmeterol (ADVAIR DISKUS) 250-50 mcg/dose inhaler Inhale 1 Puff as instructed two times a day. For Asthma flare. Resume Advair 100 after this one completed - benzonatate (TESSALON PERLES) 100 mg capsule Take 2 capsules by mouth three times a day as needed. - colestipol (COLESTID) 1 gram tablet Take 1 tablet by mouth as needed. - verapamil SR (CALAN SR) 240 mg CR tablet Take 1 tablet by mouth daily at bedtime. - atorvastatin (LIPITOR) 40 mg tablet Take 1 tablet by mouth once daily. - pantoprazole DR (PROTONIX) 20 mg tablet Take 1 tablet by mouth once daily. - fluticasone-salmeterol (ADVAIR DISKUS) 100-50 mcg/dose inhaler Inhale 1 Puff as instructed twice daily. RINSE AND GARGLE MOUTH WITH WATER AFTER EACH USE. - loratadine (CLARITIN) 10 mg tablet Take 1 tablet by mouth once daily. - albuterol HFA (PROVENTIL HFA, VENTOLIN HFA) 90 mcg/actuation inhaler Inhale 2 Puffs as instructed every 6 hours as needed. - albuterol (PROVENTIL) 2.5 mg /3 mL (0.083 %) nebulizer solution Use 3 mL via nebulizer every 4 hours as needed for wheezing/shortness of breath. Use over 5-15minutes. - apixaban (ELIQUIS) 5 mg tab(s) Take 5 mg by mouth twice daily. Will start when delivered - ondansetron orally disintegrating (ZOFRAN ODT) 4 mg disintegrating tablet DISSOLVE 1 TABLET ON THE TONGUE EVERY 6 HOURS NEEDED FOR NAUSEA/VOMITING - EPINEPHrine (AUVI-Q) 0.3 mg/0.3 mL auto-injector Inject 0.3 mL intramuscularly as needed. - meclizine (ANTIVERT) 25 mg tab Take 1 tablet by mouth every 6 hours as needed (dizziness). - Nebulizer NEBULIZER FOR HOME USE. DX: J45.20 Meds Comments as of 06/10/2021: August 26, 2019 The patient states the Warfarin dose is adjusted based on blood work. Lotus Sosa RN 08/19/2019: Patient is not taking Eliquis. currently on Loratadine, doxycycline, magnesium supplement. Lubna Armstrong RN 09/17/2019 8:20 AM Reviewed these new meds. Methylprednisilone and Macrobid. Do Ortiz RN Problem List As Of Date 04/06/2023 Noted Resolved Sebaceous cyst [L72.3] 05/15/2007 04/16/2012 Environmental allergies [Z91.09] Asthma [J45.909] Arthropathy, unspecified, site unspecified [M12* Essential hypertension [I10] IBS (irritable bowel syndrome) [K58.9] GERD (gastroesophageal reflux disease) [K21.9] Migraine [G43.909] Diverticulitis [K57.92] 12/10/2020 Hyperlipidemia, mixed [E78.2] Fracture of finger, middle or proximal phalanx,*08/28/2012 12/10/2020 History of colon polyps [Z86.010] Chronic pain of right knee [M25.561, G89.29] 12/13/2015 Primary osteoarthritis of right knee [M17.11] 12/13/2015 BPPV (benign paroxysmal positional vertigo) [H8*04/04/2016 Bee sting allergy [Z91.030] 12/11/2017 Bilateral low back pain with bilateral sciatica*12/27/2017 Calculus of kidney [N20.0] 05/09/2018 LLQ pain [R10.32] 05/27/2018 History of TIA (transient ischemic attack) [Z86*07/29/2018 Dry skin [L85.3] 09/03/2018 Atrial fibrillation with rapid ventricu (more content not included)... Normal [facility] CNPAnastacia 04-03-2023 CNPN Telephone (INTMWS) ROMAIN BAILEY ([id number]) 1950 F T Date Time Provider Department 04/03/23 FAITH MULLINS INTMWS During your visit today, we recorded the following information about you: Edna Plummer RN 04/03/2023 9:15 AM Signed Patient calls to let provider know that she continues to have edema to bilateral lower legs. She reports that it is slightly better than at OV on 03/19/2023. Left leg remains more swollen than right. Patient has one more dose of furosemide 20 mg and potassium 8 mEq. Patient reports that she tried the compression hose but they caused the edema to rise to the top of the stockings and cause her knees to become 3 x the normal size. Patient quit wearing compression hose. Patient asking if she needs to continue on furosemide/potassium or is there something else provider would like. Please review and advise, CHAPARRITA Dasilva Terri, APRN.MEDICAL PAYMENT POSTER 04/03/2023 4:46 PM Signed She can continue on with Lasix and potassium for an additional 30 days. Elevate feet when seated to help decrease swelling. Let us know how she is doing at the end of the month, if needing medication for longer or if swelling is resolved. Edna Plummer RN 04/03/2023 4:56 PM Signed Call placed to patient with no answer. Voicemail left for patient to return call and ask to speak to a triage nurse to receive provider message. CHAPARRITA Dasilva Helen E, LPN 04/04/2023 3:14 PM Signed Patient given below recommendations, verbalized understanding. Marly Cristina LPN Allergies As of Date: 04/03/2023 Noted Allergy Reaction ADHESIVE TAPE (ROSINS) 12/05/2016 2 - Rash BACTRIM DS (SULFAMETHOXAZOLE-TRIM* 12/29/2014 10 - Anaphylaxis Comments: Difficulty breathing, fever, chills BEE STING 08/28/2012 10 - Anaphylaxis DARVON (PROPOXYPHENE HCL) 05/15/2007 INFLUENZA VIRUS VACCINES 01/07/2019 14 - Other: See Comments Comments: Chest tightness, arm swelling. Date Reviewed: 03/19/2023 Reviewed by: Faith Mullins APRN.MEDICAL PAYMENT POSTER - Fully Assessed Reason for Visit: Patient Update [1234] Order(s):furosemide (LASIX) 20 mg tabletTake 1 tablet by mouth once daily.Disp: 30 tabletRfl: 0 potassium chloride SR (MICRO-K) 8 mEq cpERTake 1 capsule by mouth once daily.Disp: 30 capsuleRfl: 0 Prescriptions as of 04/04/2023 - furosemide (LASIX) 20 mg tablet Take 1 tablet by mouth once daily. - potassium chloride SR (MICRO-K) 8 mEq cpER Take 1 capsule by mouth once daily. - fluticasone (FLONASE) 50 mcg/actuation nasal spray Use 2 Sprays in each nostril once daily. - metoprolol tartrate, short acting, (LOPRESSOR) 25 mg tablet Take 1 tablet by mouth two times a day. - fluticasone-salmeterol (ADVAIR DISKUS) 250-50 mcg/dose inhaler Inhale 1 Puff as instructed two times a day. For Asthma flare. Resume Advair 100 after this one completed - benzonatate (TESSALON PERLES) 100 mg capsule Take 2 capsules by mouth three times a day as needed. - colestipol (COLESTID) 1 gram tablet Take 1 tablet by mouth as needed. - verapamil SR (CALAN SR) 240 mg CR tablet Take 1 tablet by mouth daily at bedtime. - atorvastatin (LIPITOR) 40 mg tablet Take 1 tablet by mouth once daily. - pantoprazole DR (PROTONIX) 20 mg tablet Take 1 tablet by mouth once daily. - fluticasone-salmeterol (ADVAIR DISKUS) 100-50 mcg/dose inhaler Inhale 1 Puff as instructed twice daily. RINSE AND GARGLE MOUTH WITH WATER AFTER EACH USE. - loratadine (CLARITIN) 10 mg tablet Take 1 tablet by mouth once daily. - albuterol HFA (PROVENTIL HFA, VENTOLIN HFA) 90 mcg/actuation inhaler Inhale 2 Puffs as instructed every 6 hours as needed. - albuterol (PROVENTIL) 2.5 mg /3 mL (0.083 %) nebulizer solution Use 3 mL via nebulizer every 4 hours as needed for wheezing/shortness of breath. Use over 5-15minutes. - apixaban (ELIQUIS) 5 mg tab(s) Take 5 mg by mouth twice daily. Will start when delivered - ondansetron orally disintegrating (ZOFRAN ODT) 4 mg disintegrating tablet DISSOLVE 1 TABLET ON THE TONGUE EVERY 6 HOURS NEEDED FOR NAUSEA/VOMITING - EPINEPHrine (AUVI-Q) 0.3 mg/0.3 mL auto-injector Inject 0.3 mL intramuscularly as needed. - meclizine (ANTIVERT) 25 mg tab Take 1 tablet by mouth every 6 hours as needed (dizziness). - Nebulizer NEBULIZER FOR HOME USE. DX: J45.20 Meds Comments as of 06/10/2021: August 26, 2019 The patient states the Warfarin dose is adjusted based on blood work. Lotus Sosa RN 08/19/2019: Patient is not taking Eliquis. currently on Loratadine, doxycycline, magnesium supplement. Lubna Armstrong RN 09/17/2019 8:20 AM Reviewed these new meds. Methylprednisilone and Macrobid. Do Ortiz RN Problem List As Of Date 04/03/2023 Noted Resolved Sebaceous cyst [L72.3] 05/15/2007 04/16/2012 Environmental allergies [Z91.09] Asthma [J45.909] Arthropathy, unspecified, site unspecified [M12* Essential (more content not included)... Normal [facility] CNOVon 03-20-2023 CNOV Office Visit (CARDWS ) ROMAIN BAILEY ([id number]) 1950 F CHT Date Time Provider Department 03/20/23 1:00 PM ECHOCARDIOGRAM WSTR CARDWS During your visit today, we recorded the following information about you: Faith Mullins APRN.MEDICAL PAYMENT POSTER 03/27/2023 9:07 AM Signed Followed by [facility]. Echo shows 1+ MR, increased TR 2+ elevated RVSP. Should continue on with diuretic and schedule appointment with cardiology for now. Referring Provider: FAITH MULLINS [[id number]] Allergies As of Date: 03/20/2023 Noted Allergy Reaction ADHESIVE TAPE (ROSINS) 12/05/2016 2 - Rash BACTRIM DS (SULFAMETHOXAZOLE-TRIM* 12/29/2014 10 - Anaphylaxis Comments: Difficulty breathing, fever, chills BEE STING 08/28/2012 10 - Anaphylaxis DARVON (PROPOXYPHENE HCL) 05/15/2007 INFLUENZA VIRUS VACCINES 01/07/2019 14 - Other: See Comments Comments: Chest tightness, arm swelling. Date Reviewed: 03/19/2023 Reviewed by: Faith Mullins APRN.MEDICAL PAYMENT POSTER - Fully Assessed Visit Diagnosis:Mitral valve insufficiency, unspecified etiology [I34.0] Order(s):ECHO [549189] Order #: [id number]. #:[id number] : 1 Prescriptions as of 04/18/2023 - furosemide (LASIX) 20 mg tablet Take 1 tablet by mouth once daily. - potassium chloride SR (MICRO-K) 8 mEq cpER Take 1 capsule by mouth once daily. - fluticasone (FLONASE) 50 mcg/actuation nasal spray Use 2 Sprays in each nostril once daily. - metoprolol tartrate, short acting, (LOPRESSOR) 25 mg tablet Take 1 tablet by mouth two times a day. - fluticasone-salmeterol (ADVAIR DISKUS) 250-50 mcg/dose inhaler Inhale 1 Puff as instructed two times a day. For Asthma flare. Resume Advair 100 after this one completed - benzonatate (TESSALON PERLES) 100 mg capsule Take 2 capsules by mouth three times a day as needed. - colestipol (COLESTID) 1 gram tablet Take 1 tablet by mouth as needed. - verapamil SR (CALAN SR) 240 mg CR tablet Take 1 tablet by mouth daily at bedtime. - atorvastatin (LIPITOR) 40 mg tablet Take 1 tablet by mouth once daily. - pantoprazole DR (PROTONIX) 20 mg tablet Take 1 tablet by mouth once daily. - fluticasone-salmeterol (ADVAIR DISKUS) 100-50 mcg/dose inhaler Inhale 1 Puff as instructed twice daily. RINSE AND GARGLE MOUTH WITH WATER AFTER EACH USE. - loratadine (CLARITIN) 10 mg tablet Take 1 tablet by mouth once daily. - albuterol HFA (PROVENTIL HFA, VENTOLIN HFA) 90 mcg/actuation inhaler Inhale 2 Puffs as instructed every 6 hours as needed. - albuterol (PROVENTIL) 2.5 mg /3 mL (0.083 %) nebulizer solution Use 3 mL via nebulizer every 4 hours as needed for wheezing/shortness of breath. Use over 5-15minutes. - apixaban (ELIQUIS) 5 mg tab(s) Take 5 mg by mouth twice daily. Will start when delivered - ondansetron orally disintegrating (ZOFRAN ODT) 4 mg disintegrating tablet DISSOLVE 1 TABLET ON THE TONGUE EVERY 6 HOURS NEEDED FOR NAUSEA/VOMITING - EPINEPHrine (AUVI-Q) 0.3 mg/0.3 mL auto-injector Inject 0.3 mL intramuscularly as needed. - meclizine (ANTIVERT) 25 mg tab Take 1 tablet by mouth every 6 hours as needed (dizziness). - Nebulizer NEBULIZER FOR HOME USE. DX: J45.20 Meds Comments as of 06/10/2021: August 26, 2019 The patient states the Warfarin dose is adjusted based on blood work. Lotus Sosa RN 08/19/2019: Patient is not taking Eliquis. currently on Loratadine, doxycycline, magnesium supplement. Lubna Armstrong RN 09/17/2019 8:20 AM Reviewed these new meds. Methylprednisilone and Macrobid. Do Ortiz RN Problem List As Of Date 03/20/2023 Noted Resolved Sebaceous cyst [L72.3] 05/15/2007 04/16/2012 Environmental allergies [Z91.09] Asthma [J45.909] Arthropathy, unspecified, site unspecified [M12* Essential hypertension [I10] IBS (irritable bowel syndrome) [K58.9] GERD (gastroesophageal reflux disease) [K21.9] Migraine [G43.909] Diverticulitis [K57.92] 12/10/2020 Hyperlipidemia, mixed [E78.2] Fracture of finger, middle or proximal phalanx,*08/28/2012 12/10/2020 History of colon polyps [Z86.010] Chronic pain of right knee [M25.561, G89.29] 12/13/2015 Primary osteoarthritis of right knee [M17.11] 12/13/2015 BPPV (benign paroxysmal positional vertigo) [H8*04/04/2016 Bee sting allergy [Z91.030] 12/11/2017 Bilateral low back pain with bilateral sciatica*12/27/2017 Calculus of kidney [N20.0] 05/09/2018 LLQ pain [R10.32] 05/27/2018 History of TIA (transient ischemic attack) [Z86*07/29/2018 Dry skin [L85.3] 09/03/2018 Atrial fibrillation with rapid ventricular resp*12/30/2018 01/01/2023 Sacroiliitis (HCC) [M46.1] 04/14/2022 History of asthma [Z87.09] 11/16/2022 Acquired stenosis of nasolacrimal duct, right [*11/30/2022 Unspecified dacryocystitis of right lacrimal pa*11/30/2022 Unspecified injury of right lower leg, initial *01/31/2022 Chest pain [R07.9] 01/01/2023 Contusion of left wrist [S60 (more content not included)... Normal [facility] ECHOon 03-20-2023 Echocardiography Echocardiography Report: Transthoracic Echo [facility] Date of service: 03/20/2023 12:53:07 PM CARETAKER Ordering physician: FAITH MULLINS Indication: Shortness of Breath Symptom(s): Edema Technologist: Sadaf Romero [facility] Interpreting physician: Danica Rose MD PATIENT: Name: MS. ROMAIN BAILEY : 1950 Age: 73 years Gender: F History of hypertension, dyslipidemia and arrhythmia. Primary rhythm: atrial fib. Height: 167.60 cm BSA: 2.08 m Weight: 92.99 kg BMI: 33.1 kg/m Heart rate 86 bpm Blood pressure 171/99 mmHg Color Doppler was utilized to interrogate the cardiac valves assessed and spectral Doppler was utilized to determine the flow velocities and pressure gradients reported in this exam. MEASUREMENTS: Value Indexed Normal Max aortic dimension 2.9 cm Ao < 3.8 Left atrial volume 45 ml (biplane A-L) 22 ml/m Neelam <= 34 LV ID (diastole) 3.9 cm (2D) 1.87 cm/m LV ID (systole) 2.5 cm (2D) 1.21 cm/m IVS, leaflet tips 1.0 cm (2D) Posterior wall thickness 0.9 cm (2D) Left ventricular mass 116 g (2D) 56 g/m LV stroke volume 43 ml (2D biplane) LV end diastolic volume 74 ml (2D biplane) 35.3 ml/m 29<=EDVi<62 LV end systolic volume 31 ml (2D biplane) 14.7 ml/m Ejection Fraction 58 % (2D biplane) EF > 54 FINDINGS: LEFT VENTRICLE The left ventricle is normal in size. Left ventricular systolic function is normal. Left ventricular diastolic function was not evaluated due to AF. Wall Motion: All scored segments are normal. RIGHT VENTRICLE The right ventricle is normal in size. Right ventricular systolic function is normal. RV systolic tissue Doppler velocity is 13.0 cm/s. Tricuspid annular displacement is 2.0 cm. Estimated right ventricular systolic pressure is 47 mmHg consistent with moderate pulmonary hypertension. Estimated right atrial pressure is 3 mmHg based on IVC assessment. LEFT ATRIUM The left atrial cavity is normal in size. Pulmonary Veins: The pulmonary venous pattern showed blunted systolic flow. RIGHT ATRIUM The right atrial cavity is normal in size. Inferior Vena Cava: The inferior vena cava appears normal measuring 1.5 cm. The vessel decreases greater than 50 percent with inspiration. MITRAL VALVE The mitral valve leaflets are structurally normal. There is no mitral stenosis. There is mild (1+) mitral valve regurgitation. There is a posteriorly directed regurgitant jet. TRICUSPID VALVE The tricuspid valve leaflets are structurally normal. There is moderate (2+) tricuspid valve regurgitation. AORTIC VALVE The aortic valve cusps are structurally normal. There is no aortic valve stenosis. There is no aortic valve regurgitation. Tricuspid aortic valve. The peak gradient is 12 mmHg (peak velocity = 174.6 cm/s). PULMONIC VALVE The pulmonic valve cusps are structurally normal. There is trace pulmonic valve regurgitation. AORTA The visualized aorta is normal in size. Measurements - Mid ascending aorta 2.9 cm. PERICARDIUM There is no pericardial effusion. There is an epicardial fat pad. CONCLUSIONS: - Exam indication: Shortness of Breath - The left ventricle is normal in size. Left ventricular systolic function is normal. EF = 58 5% (2D biplane). Left ventricular diastolic function was not evaluated due to AF. - The right ventricle is normal in size. Right ventricular systolic function is normal. - Mild 1+ mitral regurgitation. - There is moderate (2+) tricuspid valve regurgitation. - Estimated right ventricular systolic pressure is 47 mmHg consistent with moderate pulmonary hypertension. Estimated right atrial pressure is 3 mmHg based on IVC assessment. - Exam was compared with the prior echocardiographic exam performed on 07/29/2018. Tricuspid regurgitation is worse in today's study. Pulmonary pressure is higher in today's study (RVSP 38mmHg in prior study compared to 47mmHg in today's study). * * * Final * * * [employer] Image : [id number] Normal [facility] Basic metabolic 2000 panelon 03-19-2023 Anion gap [Moles/Vol] 10 mmol/L Normal 9-18 [facility] Comment on above: Order Comment: Speci men Type: BLOOD SPECIMENOrdering Facility: [facility] Address: [address] [place] [address] Performed By: #### 2 4321-2 ####[facility] LABIA [id number] [place] [address] [place] Calcium [Mass/Vol] 9.0 mg/dL Normal 8.5-10.2 [facility] Comment on above: Order Comment: Speci men Type: BLOOD SPECIMENOrdering Facility: [facility] Address: [address] [place] [address] Performed By: #### 2 4321-2 ####[facility] LABIA [id number] [place] [address] [place] Chloride [Moles/Vol] 105 mmol/L Normal 97-105 [facility] Comment on above: Order Comment: Speci men Type: BLOOD SPECIMENOrdering Facility: [facility] Address: [address] [place] [address] Performed By: #### 2 4321-2 ####[facility] LABCLIA [id number] [place] [address] [place] CO2 [Moles/Vol] 28 mmol/L Normal 22-30 [facility] Comment on above: Order Comment: Speci men Type: BLOOD SPECIMENOrdering Facility: [facility] Address: [address] [place] [address] Performed By: #### 2 4321-2 ####[facility] LABCLIA [id number] [place] [address] [place] Creatinine [Mass/Vol] 0.80 mg/dL Normal 0.58-0.96 [facility] Comment on above: Order Comment: Speci men Type: BLOOD SPECIMENOrdering Facility: [facility] Address: [address] [place] [address] Performed By: #### 2 4321-2 ####[facility] LABIA [id number] [place] [address] [place] Creatinine and Glomerular filtration rate.predicted panel (S/P/Bld) 78 mL/min/1.73m??? Normal >=60 [facility] Comment on above: Order Comment: Speci men Type: BLOOD SPECIMENOrdering Facility: [facility] Address: [address] [place] [address] Result Comment: Hermila mated Glomerular Filtration Rate (eGFR) is calculated using the 2020 CKD-EPI creatinine equation. This equation utilizes serum creatinine, sex, and age as parameters. The creatinine assay has traceable calibration to isotope dilution-mass spectrometry. Refer to KDIGO guidelines for clinical interpretation. In patients with unstable renal function, e.g. those with acute kidney injury, the eGFR may not accurately reflect actual GFR. Performed By: #### 2 4321-2 ####[facility] LABIA [id number] [place] [address] [place] Glucose [Mass/Vol] 115 mg/dL High 74-99 [facility] Comment on above: Order Comment: Speci men Type: BLOOD SPECIMENOrdering Facility: [facility] Address: [address] [place] [address] Result Comment: The [place] Diabetes Association (ADA) provides guidance for cutoff values for fasting glucose and random glucose. The ADA defines fasting as no caloric intake for at least 8 hours. Fasting plasma glucose results between 100 to 125 mg/dL indicate increased risk for diabetes (prediabetes). Fasting plasma glucose results greater than or equal to 126 mg/dL meet the criteria for diagnosis of diabetes. In the absence of unequivocal hyperglycemia, results should be confirmed by repeat testing. In a patient with classic symptoms of hyperglycemia or hyperglycemic crisis, random plasma glucose results greater than or equal to 200 mg/dL meet the criteria for diagnosis of diabetes. Reference: Standards of Medical Care in Diabetes 2016, [place] Diabetes Association. Diabetes Care. 2016.39(Suppl 1). Performed By: #### 2 4321-2 ####[facility] LABCLIA [id number] [place] [address] [place] Potassium [Moles/Vol] 3.7 mmol/L Normal 3.7-5.1 [facility] Comment on above: Order Comment: Speci men Type: BLOOD SPECIMENOrdering Facility: [facility] Address: [address] [place] [address] Performed By: #### 2 4321-2 ####[facility] LABIA [id number] [place] [address] [place] Sodium [Moles/Vol] 143 mmol/L Normal 136-144 [facility] Comment on above: Order Comment: Speci men Type: BLOOD SPECIMENOrdering Facility: [facility] Address: [address] [place] [address] Performed By: #### 2 4321-2 ####[facility] LABCLIA [id number] [place] [address] [place] Urea nitrogen [Mass/Vol] 16 mg/dL Normal 7-21 [facility] Comment on above: Order Comment: Speci men Type: BLOOD SPECIMENOrdering Facility: [facility] Address: [address] [place] [address] Performed By: #### 2 4321-2 ####[facility] LABRUSSEL [id number] [place] [id number] [place] [facility] CNOVon 03-19-2023 CNOV Office Visit (INTMWS ) ROMAIN BAILEY ([id number]) 1950 F CHT Date Time Provider Department 03/19/23 2:20 PM FAITH MULLINS INTMWS During your visit today, we recorded the following information about you: Pulse Respiration Blood pressure Weight 65/minute 16/minute 136/73 92.5 kg Faith Mullins APRN.MEDICAL PAYMENT POSTER 03/19/2023 4:02 PM Signed SUBJECTIVE: Spirometry Never done Shingrix Vaccine(1 of 2) Never done RSV Vaccine(1 - 1-dose 60+ series) Never done Mammogram Screening due on 06/26/2017 Advance Directive Discussion due on 02/26/2023 Depression Assessment due on 02/26/2023 Colorectal Cancer Screening due on 05/30/2023 HPI Romain Bailey is a 73 year old female. PMH is significant for ACTIVE PROBLEM LIST Environmental Allergies Asthma Arthropathy, Unspecified, Site Unspecified Essential Hypertension Ibs (Irritable Bowel Syndrome) Gerd (Gastroesophageal Reflux Disease) Migraine Hyperlipidemia, Mixed History of Colon Polyps Chronic Pain of Right Knee Primary Osteoarthritis of Right Knee Bppv (Benign Paroxysmal Positional Vertigo) Bee Sting Allergy Bilateral Low Back Pain With Bilateral Sciatica Calculus of Kidney Llq Pain History of Tia (Transient Ischemic Attack) Dry Skin Sacroiliitis (Hcc) History of Asthma Acquired Stenosis of Nasolacrimal Duct, Right Unspecified Dacryocystitis of Right Lacrimal Passage Unspecified Injury of Right Lower Leg, Initial Encounter Chest Pain Contusion of Left Wrist Contusion of Knee, Left Contusion of Elbow Colitis HPI excerpted from previous visit: Review of outside records indicate that she was seen at [facility] February 14 3026 for atrial fibrillation with rapid ventricular rate. Found to have RSV infection as well. She was treated with oral prednisone. Her dose of metoprolol tartrate was increased from 12.5 mg twice daily to 25 mg twice daily. She was continued on home verapamil dose unchanged. She was continued on Eliquis. Noted to be hypoxic so discharged on an oxygen. She was discharged on a prolonged steroid taper. Treated with cefdinir for possible bacterial pneumonia. Continued on inhalers every 4-6 hours for shortness of breath. Today and notes bilateral foot and leg swelling. She notes she was initially sleeping in recliner with feet elevated at discharge from the hospital. She notes breathing has improved and now sleeping in the bed with feet not quite as elevated as before. Feet been swelling since last . Cardiology follow-up: Not scheduled Chest pain: None reported Shortness of breath: Improved since discharge, as needed use of oxygen Weight gain: Yes Edema: Yes Cough: Reduced Wheeze: No Fever: No Compression: No Elevation: Yes Followed by [facility].She has a history of mitral insufficiency and paroxysmal atrial fibrillation. [facility] pharmacologic myocardial perfusion stress test completed for chest pain last year, negative for ischemia with preserved ejection fraction. On chronic OAC. No bleeding difficulties. With report of recurrence palpitations. She continues on oxygen, primarily wearing at night. Pulse ox has remained above 90% most of the time. Shortness of breath is decreased. She is able to walk within the home with decreased shortness of breath. She does still get short of breath with 1 flight of stairs. Orthopnea is resolved, can lie flat to sleep. She reports drinking plenty of fluids daily. She has noted low back pain with radiation down her right leg with crampy pain in the posterior thigh and calf, better now. She has not yet scheduled an appointment with cardiology. Has not been wearing compression. Notes right leg has significantly decreased edema. Edema persisting in the left leg but a bit improved. Weight is stable. She notes sinus drainage and congestion, history of allergies. Using asthma medications. HTN: Occasional palpitations. headache, chest pain, dyspnea, peripheral edema, orthopnea, fatigue, and PND. Last 14 Encounter BP Readings: Date: BP: 03/19/2023 136/73 03/12/2023 129/71 02/27/2023 122/72 02/10/2023 134/76 01/01/2023 126/77 11/25/2022 128/74 11/16/2022 170/80 09/07/2022 126/72 08/10/2022 108/50 06/30/2022 122/64 04/11/2022 136/80 01/10/2022 136/78 12/22/2021 140/80 10/11/2021 136/80 Hyperlipidemia. Ms. Bailey reports doing well on current therapy Her most recent lipid panels are: Cholesterol, Total (mg/dL) Date Value 08/19/2021 175 07/29/2018 150 04/06/2018 168 Total Cholesterol, Nonfasting (mg/dL) Date Value 06/30/2022 183 HDL Cholesterol (mg/dL) Date Value 08/19/2021 45 07/29/2018 45 04/06/2018 44 HDL Cholesterol, Nonfasting (mg/dL) Date Value 06/30/2022 46 LDL Cholesterol (mg/dL) Date Value 08/19/2021 107 04/06/2018 107 03/17/2017 127 LDL Cholesterol, Nonfasting (mg/dL) Date (more content not included)... Normal [facility] CNOVon 03-12-2023 CNOV Office Visit (INTMWS ) ROMAIN BAILEY Giulia ([id number]) 1950 F CHT Date Time Provider Department 03/12/23 1:20 PM FAITH MULLINS INTMWS During your visit today, we recorded the following information about you: Pulse Respiration Blood pressure Weight 65/minute 16/minute 129/71 93 kg Faith Mullins APRN.MEDICAL PAYMENT POSTER 03/12/2023 1:58 PM Signed SUBJECTIVE: Spirometry Never done Shingrix Vaccine(1 of 2) Never done RSV Vaccine(1 - 1-dose 60+ series) Never done Mammogram Screening due on 06/26/2017 Advance Directive Discussion due on 02/26/2023 Depression Assessment due on 02/26/2023 Colorectal Cancer Screening due on 05/30/2023 HPI Romain Bailey is a 73 year old female. PMH is significant for ACTIVE PROBLEM LIST Environmental Allergies Asthma Arthropathy, Unspecified, Site Unspecified Essential Hypertension Ibs (Irritable Bowel Syndrome) Gerd (Gastroesophageal Reflux Disease) Migraine Hyperlipidemia, Mixed History of Colon Polyps Chronic Pain of Right Knee Primary Osteoarthritis of Right Knee Bppv (Benign Paroxysmal Positional Vertigo) Bee Sting Allergy Bilateral Low Back Pain With Bilateral Sciatica Calculus of Kidney Llq Pain History of Tia (Transient Ischemic Attack) Dry Skin Sacroiliitis (Hcc) History of Asthma Acquired Stenosis of Nasolacrimal Duct, Right Unspecified Dacryocystitis of Right Lacrimal Passage Unspecified Injury of Right Lower Leg, Initial Encounter Chest Pain Contusion of Left Wrist Contusion of Knee, Left Contusion of Elbow Colitis Review of outside records indicate that she was seen at [facility] February 14 3026 for atrial fibrillation with rapid ventricular rate. Found to have RSV infection as well. She was treated with oral prednisone. Her dose of metoprolol tartrate was increased from 12.5 mg twice daily to 25 mg twice daily. She was continued on home verapamil dose unchanged. She was continued on Eliquis. Noted to be hypoxic so discharged on an oxygen. She was discharged on a prolonged steroid taper. Treated with cefdinir for possible bacterial pneumonia. Continued on inhalers every 4-6 hours for shortness of breath. Today and notes bilateral foot and leg swelling. She notes she was initially sleeping in recliner with feet elevated at discharge from the hospital. She notes breathing has improved and now sleeping in the bed with feet not quite as elevated as before. Feet been swelling since last . Cardiology follow-up: Not scheduled Chest pain: None reported Shortness of breath: Improved since discharge, as needed use of oxygen Weight gain: Yes Edema: Yes Cough: Reduced Wheeze: No Fever: No Compression: No Elevation: Yes Followed by [facility].She has a history of mitral insufficiency and paroxysmal atrial fibrillation. [facility] pharmacologic myocardial perfusion stress test completed for chest pain last year, negative for ischemia with preserved ejection fraction. On chronic OAC. No bleeding difficulties. HTN: Occasional palpitations. headache, chest pain, dyspnea, peripheral edema, orthopnea, fatigue, and PND. Last 14 Encounter BP Readings: Date: BP: 03/12/2023 129/71 02/27/2023 122/72 02/10/2023 134/76 01/01/2023 126/77 11/25/2022 128/74 11/16/2022 170/80 09/07/2022 126/72 08/10/2022 108/50 06/30/2022 122/64 04/11/2022 136/80 01/10/2022 136/78 12/22/2021 140/80 10/11/2021 136/80 08/15/2021 142/78 Hyperlipidemia. Ms. Bailey reports doing well on current therapy Her most recent lipid panels are: Cholesterol, Total (mg/dL) Date Value 08/19/2021 175 07/29/2018 150 04/06/2018 168 Total Cholesterol, Nonfasting (mg/dL) Date Value 06/30/2022 183 HDL Cholesterol (mg/dL) Date Value 08/19/2021 45 07/29/2018 45 04/06/2018 44 HDL Cholesterol, Nonfasting (mg/dL) Date Value 06/30/2022 46 LDL Cholesterol (mg/dL) Date Value 08/19/2021 107 04/06/2018 107 03/17/2017 127 LDL Cholesterol, Nonfasting (mg/dL) Date Value 06/30/2022 92 LDL Calculated (mg/dL) Date Value 07/29/2018 95 Triglyceride (mg/dL) Date Value 08/19/2021 113 07/29/2018 52 04/06/2018 83 Triglycerides, Nonfasting (mg/dL) Date Value 06/30/2022 224 Review of Systems Constitutional: Negative. Respiratory: Positive for shortness of breath (SOBOE exertion). Cardiovascular: Positive for leg swelling. Objective BP 129/71 Pulse 65 Resp 16 Wt 93 kg (205 lb) BMI 33.09 kg/m? Physical Exam Vitals and nursing note reviewed. Constitutional: Appearance: Normal appearance. HENT: Head: Normocephalic and atraumatic. Eyes: Conjunctiva/sclera: Conjunctivae normal. Neck: Thyroid: No thyromegaly. Vascular: Normal carotid pulses. No JVD. Cardiovascular: Rate and Rhythm: Normal rate and regular rhythm. Pulses: Carotid pulses are 2+ on the right side and 2+ on the left s (more content not included)... Normal [facility] CNOVon 02-27-2023 CNOV Office Visit (INTMWS ) ROMAIN BAILEY ([id number]) 1950 F T Date Time Provider Department 02/27/23 10:40 AM FATEMEH ROGERS INTMWS During your visit today, we recorded the following information about you: Temperature Pulse Respiration Blood pressure 97.8 degrees 94/minute 18/minute 122/72 Weight 89.5 kg Fatemeh Rogers MD 03/25/2023 11:26 PM Signed This note was created using [employer]. Subjective Romain Bailey is a 72 year old female. Patient presents with: Hospital F/U SUBJECTIVE: Romain Bailey is a 72 year old year old lady here today for follow up month follow up appointment for review of medical conditions. Coughing last night after eating cookie and tea. Waiting for reflux med--might have been shipped but needs to check at home Was in [facility] --reviewed records. Asthma exacerbation, A fib with RVR and acute hypokalemia. Prednisone works well for lungs but causes diarrhea like before. Finished antibiotic. Has used Imodium Still has some colestid to use if needed. Decreased appetite due to illness. Can only eat small portions because of decreased appetites. Gets light snacks in between meals. Has some tea and lemonade, also Ensure Barky cough noted. Sometime loose cough. Pulse ox dips to low 90s but up with O2 to 98%. Not too SOB without O2 except with getting cleaned up.washed in upstairs bathroom. where O2 does not reach. PAST MEDICAL HISTORY Diagnosis Date Arthropathy, unspecified, site unspecified Asthma Back pain Calculus of kidney 05/09/2018 Colon polyps 2014 Diverticulitis 2000 Environmental allergies GERD (gastroesophageal reflux disease) Hyperlipidemia lifestyle controlled Hypertension IBS (irritable bowel syndrome) Migraine Obesity Pseudophakia 12/2021 both Current Outpatient Medications Medication Sig benzonatate (TESSALON PERLES) 100 mg capsule Take 2 capsules by mouth three times a day as needed. colestipol (COLESTID) 1 gram tablet Take 1 tablet by mouth as needed. metoprolol tartrate, short acting, (LOPRESSOR) 25 mg tablet Take 0.5 tablets by mouth twice daily. verapamil SR (CALAN SR) 240 mg CR tablet Take 1 tablet by mouth daily at bedtime. atorvastatin (LIPITOR) 40 mg tablet Take 1 tablet by mouth once daily. pantoprazole DR (PROTONIX) 20 mg tablet Take 1 tablet by mouth once daily. fluticasone-salmeterol (ADVAIR DISKUS) 100-50 mcg/dose inhaler Inhale 1 Puff as instructed twice daily. RINSE AND GARGLE MOUTH WITH WATER AFTER EACH USE. loratadine (CLARITIN) 10 mg tablet Take 1 tablet by mouth once daily. albuterol HFA (PROVENTIL HFA, VENTOLIN HFA) 90 mcg/actuation inhaler Inhale 2 Puffs as instructed every 6 hours as needed. albuterol (PROVENTIL) 2.5 mg /3 mL (0.083 %) nebulizer solution Use 3 mL via nebulizer every 4 hours as needed for wheezing/shortness of breath. Use over 5-15minutes. apixaban (ELIQUIS) 5 mg tab(s) Take 5 mg by mouth twice daily. Will start when delivered ondansetron orally disintegrating (ZOFRAN ODT) 4 mg disintegrating tablet DISSOLVE 1 TABLET ON THE TONGUE EVERY 6 HOURS NEEDED FOR NAUSEA/VOMITING EPINEPHrine (AUVI-Q) 0.3 mg/0.3 mL auto-injector Inject 0.3 mL intramuscularly as needed. meclizine (ANTIVERT) 25 mg tab Take 1 tablet by mouth every 6 hours as needed (dizziness). fluticasone (FLONASE) 50 mcg/actuation nasal spray Use 2 Sprays in each nostril once daily. bifidobacteri bifid.and longum (FLORAJEN BIFIDOBLEND) 460 mg (9-1 bill.cell) cap Take 1 capsule by mouth once daily. Nebulizer NEBULIZER FOR HOME USE. DX: J45.20 docusate sodium (STOOL SOFTENER ORAL) Take by mouth once daily. (Patient not taking: Reported on 02/27/2023) cyclobenzaprine HCl (FLEXERIL ORAL) Take by mouth. (Patient not taking: Reported on 12/14/2022) cyclobenzaprine (FLEXERIL) 10 mg tablet (Patient not taking: Reported on 12/14/2022) cycloSPORINE (RESTASIS) 0.05 % ophthalmic emulsion Use 1 Drop in both eyes twice daily. Both eyes. (Patient not taking: Reported on 12/14/2022) No current facility-administered medications for this visit. Review of Systems Objective BP 122/72 Pulse 94 Temp 36.6 ?C (97.8 ?F) Resp 18 Wt 89.5 kg (197 lb 6.4 oz) SpO2 97% BMI 31.86 kg/m? Last 5 Encounter Wt Readings: Date: Wt: 02/27/2023 89.5 kg (197 lb 6.4 oz) 02/10/2023 93.6 kg (206 lb 6.4 oz) 01/01/2023 93.4 kg (206 lb) 11/25/2022 93.2 kg (205 lb 6.4 oz) 11/16/2022 93.4 kg (206 lb) No waist measurement recorded Estimated body mass index is 31.86 kg/m? as calculated from the following: Height as of 08/10/22: 167.6 cm (5' 6 ). Weight as of this encounter: 89.5 kg (197 lb 6.4 oz). Last 5 Encounter BP Readings: Date: BP: 02/27/2023 122/72 02/10/2023 134/76 01/01/2023 126/77 11/25/2022 128/74 11/16/2022 170/80 Physical Exam Vitals reviewed. Constitutional: General: She is not in acute dis (more content not included)... [facility] ROMAIN BAILEY ([id number]) 1950 F T Date Time Provider Department 02/15/23 FATEMEH ROGERS During your visit today, we recorded the following information about you: Narinder Jacques RN 02/15/2023 11:32 AM Signed Patient reports she was seen in and prescribed tessalon perrles for bronchitis cough and completed prednisone yesterday. Reports she continues to cough (1 week now). Reports she is drinking plenty of fluids. Reports she has no energy. Reports she is using her nebulizer, which helps. Reports her throat gets sore from cough.- and states it is a productive cough. Advised to try warm salt water gargles for sore throat, and advised a cool mist humidifier is helpful. Patient agreeable. Reports her home covid test was negative. Patient declined appt at this time. States she will see how she feels tomorrow, and if having concerns about her symptoms will call pcp office or go to [facility] for evaluation. Allergies As of Date: 02/15/2023 Noted Allergy Reaction ADHESIVE TAPE (ROSINS) 12/05/2016 2 - Rash BACTRIM DS (SULFAMETHOXAZOLE-TRIM* 12/29/2014 10 - Anaphylaxis Comments: Difficulty breathing, fever, chills BEE STING 08/28/2012 10 - Anaphylaxis DARVON (PROPOXYPHENE HCL) 05/15/2007 INFLUENZA VIRUS VACCINES 01/07/2019 14 - Other: See Comments Comments: Chest tightness, arm swelling. Date Reviewed: 02/10/2023 Reviewed by: Telma Delvalle MA - Fully Assessed Reason for Visit: Patient Update [1234] Prescriptions as of 02/15/2023 - predniSONE (DELTASONE) 20 mg tablet Take 2 tablets by mouth once daily for 5 days. - benzonatate (TESSALON PERLES) 100 mg capsule Take 2 capsules by mouth three times a day as needed. - colestipol (COLESTID) 1 gram tablet Take by mouth. - metoprolol tartrate, short acting, (LOPRESSOR) 25 mg tablet Take 0.5 tablets by mouth twice daily. - verapamil SR (CALAN SR) 240 mg CR tablet Take 1 tablet by mouth daily at bedtime. - atorvastatin (LIPITOR) 40 mg tablet Take 1 tablet by mouth once daily. - pantoprazole DR (PROTONIX) 20 mg tablet Take 1 tablet by mouth once daily. - docusate sodium (STOOL SOFTENER ORAL) Take by mouth once daily. - fluticasone-salmeterol (ADVAIR DISKUS) 100-50 mcg/dose inhaler Inhale 1 Puff as instructed twice daily. RINSE AND GARGLE MOUTH WITH WATER AFTER EACH USE. - loratadine (CLARITIN) 10 mg tablet Take 1 tablet by mouth once daily. - cyclobenzaprine HCl (FLEXERIL ORAL) Take by mouth. - cyclobenzaprine (FLEXERIL) 10 mg tablet - albuterol HFA (PROVENTIL HFA, VENTOLIN HFA) 90 mcg/actuation inhaler Inhale 2 Puffs as instructed every 6 hours as needed. - albuterol (PROVENTIL) 2.5 mg /3 mL (0.083 %) nebulizer solution Use 3 mL via nebulizer every 4 hours as needed for wheezing/shortness of breath. Use over 5-15minutes. - apixaban (ELIQUIS) 5 mg tab(s) Take 5 mg by mouth twice daily. Will start when delivered - ondansetron orally disintegrating (ZOFRAN ODT) 4 mg disintegrating tablet DISSOLVE 1 TABLET ON THE TONGUE EVERY 6 HOURS NEEDED FOR NAUSEA/VOMITING - EPINEPHrine (AUVI-Q) 0.3 mg/0.3 mL auto-injector Inject 0.3 mL intramuscularly as needed. - meclizine (ANTIVERT) 25 mg tab Take 1 tablet by mouth every 6 hours as needed (dizziness). - fluticasone (FLONASE) 50 mcg/actuation nasal spray Use 2 Sprays in each nostril once daily. - bifidobacteri bifid.and longum (FLORAJEN BIFIDOBLEND) 460 mg (9-1 bill.cell) cap Take 1 capsule by mouth once daily. - cycloSPORINE (RESTASIS) 0.05 % ophthalmic emulsion Use 1 Drop in both eyes twice daily. Both eyes. - Nebulizer NEBULIZER FOR HOME USE. DX: J45.20 Meds Comments as of 06/10/2021: August 26, 2019 The patient states the Warfarin dose is adjusted based on blood work. Lotus Sosa RN 08/19/2019: Patient is not taking Eliquis. currently on Loratadine, doxycycline, magnesium supplement. Lubna Armstrong RN 09/17/2019 8:20 AM Reviewed these new meds. Methylprednisilone and Macrobid. Do Ortiz, CHAPARRITA Problem List As Of Date 02/15/2023 Noted Resolved Sebaceous cyst [L72.3] 05/15/2007 04/16/2012 Environmental allergies [Z91.09] Asthma [J45.909] Arthropathy, unspecified, site unspecified [M12* Essential hypertension [I10] IBS (irritable bowel syndrome) [K58.9] GERD (gastroesophageal reflux disease) [K21.9] Migraine [G43.909] Diverticulitis [K57.92] 12/10/2020 Hyperlipidemia, mixed [E78.2] Fracture of finger, middle or proximal phalanx,*08/28/2012 12/10/2020 History of colon polyps [Z86.010] Chronic pain of right knee [M25.561, G89.29] 12/13/2015 Primary osteoarthritis of right knee [M17.11] 12/13/2015 BPPV (benign paroxysmal positional vertigo) [H8*04/04/2016 Bee sting allergy [Z91.030] 12/11/2017 Bilateral low back pain with bilateral sciatica*12/27/2017 Calculus of kidney [N20.0] 05/09/2018 LLQ pain [R10.32] (more content not included)... Normal [facility] CNOVon 02-10-2023 CNOV Office Visit (UCWSTR ) ROMAIN BAILEY ([id number]) 1950 F T Date Time Provider Department 02/10/23 9:15 AM DALLAS WILSON UCWSTR During your visit today, we recorded the following information about you: Temperature Pulse Respiration Blood pressure 98.3 degrees 83/minute 18/minute 134/76 Weight 93.6 kg Dallas Wilson, PANaun 02/10/2023 11:48 AM Signed This note was created using [employer]. Subjective Romain Bailey is a 72 year old female. HPI Presents with cough wheezing over the past 4 days. She denies vomiting or diarrhea. She states last night she felt the chest tightness worsen. She does have a history of asthma. She has been using her albuterol nebulizer. She did have a fever yesterday of 100.6. Home COVID test was negative. Denies sick contacts. Review of Systems Constitutional: Positive for fatigue and fever. HENT: Positive for congestion. Negative for ear pain and sore throat. Respiratory: Positive for cough, chest tightness, shortness of breath and wheezing. Cardiovascular: Negative. Gastrointestinal: Negative. Genitourinary: Negative. Musculoskeletal: Negative. Skin: Negative. All other systems reviewed and are negative. PAST MEDICAL HISTORY Diagnosis Date Arthropathy, unspecified, site unspecified Asthma Back pain Calculus of kidney 05/09/2018 Colon polyps 2014 Diverticulitis 2000 Environmental allergies GERD (gastroesophageal reflux disease) Hyperlipidemia lifestyle controlled Hypertension IBS (irritable bowel syndrome) Migraine Obesity Pseudophakia 12/2021 both Current Outpatient Medications Medication Sig Dispense Refill colestipol (COLESTID) 1 gram tablet Take by mouth. metoprolol tartrate, short acting, (LOPRESSOR) 25 mg tablet Take 0.5 tablets by mouth twice daily. 90 tablet 3 verapamil SR (CALAN SR) 240 mg CR tablet Take 1 tablet by mouth daily at bedtime. 90 tablet 3 atorvastatin (LIPITOR) 40 mg tablet Take 1 tablet by mouth once daily. [address] (PROTONIX) 20 mg tablet Take 1 tablet by mouth once daily. 90 tablet 3 docusate sodium (STOOL SOFTENER ORAL) Take by mouth once daily. methylPREDNISolone (MEDROL, PONCHO,) 4 mg Dose-Pack Take by mouth as directed until finished. 21 tablet 0 fluticasone-salmeterol (ADVAIR DISKUS) 100-50 mcg/dose inhaler Inhale 1 Puff as instructed twice daily. RINSE AND GARGLE MOUTH WITH WATER AFTER EACH USE. 180 Each 3 loratadine (CLARITIN) 10 mg tablet Take 1 tablet by mouth once daily. cyclobenzaprine HCl (FLEXERIL ORAL) Take by mouth. (Patient not taking: Reported on 12/14/2022) cyclobenzaprine (FLEXERIL) 10 mg tablet (Patient not taking: Reported on 12/14/2022) albuterol HFA (PROVENTIL HFA, VENTOLIN HFA) 90 mcg/actuation inhaler Inhale 2 Puffs as instructed every 6 hours as needed. 18 g 0 albuterol (PROVENTIL) 2.5 mg /3 mL (0.083 %) nebulizer solution Use 3 mL via nebulizer every 4 hours as needed for wheezing/shortness of breath. Use over 5-15minutes. 90 mL 3 apixaban (ELIQUIS) 5 mg tab(s) Take 5 mg by mouth twice daily. Will start when delivered ondansetron orally disintegrating (ZOFRAN ODT) 4 mg disintegrating tablet DISSOLVE 1 TABLET ON THE TONGUE EVERY 6 HOURS NEEDED FOR NAUSEA/VOMITING 90 tablet 0 EPINEPHrine (AUVI-Q) 0.3 mg/0.3 mL auto-injector Inject 0.3 mL intramuscularly as needed. 2 Each 3 meclizine (ANTIVERT) 25 mg tab Take 1 tablet by mouth every 6 hours as needed (dizziness). 90 tablet 0 fluticasone (FLONASE) 50 mcg/actuation nasal spray Use 2 Sprays in each nostril once daily. 3 Bottle 3 bifidobacteri bifid.and longum (FLORAJEN BIFIDOBLEND) 460 mg (9-1 bill.cell) cap Take 1 capsule by mouth once daily. 30 capsule 1 cycloSPORINE (RESTASIS) 0.05 % ophthalmic emulsion Use 1 Drop in both eyes twice daily. Both eyes. (Patient not taking: Reported on 12/14/2022) Nebulizer NEBULIZER FOR HOME USE. DX: J45.20 1 Device 0 No current facility-administered medications for this visit. PAST SURGICAL HISTORY Procedure Laterality Date CHOLECYSTECTOMY ~2003 Cholecystectomy laparoscopic COLONOSCOPY AND POLYPECTOMY 12/03/2013 tubular adenoma, hyperplastic polyp; repeat due in 5y COLONOSCOPY FLX DX W/COLLJ SPEC WHEN PFRMD 05/29/2018 Colonoscopy DEBRIDEMENT SUBCUTANEOUS TISSUE 20 SQ CM/< 05/15/2007 Debridement infected moira cyst upper mid back PAST SURGICAL HISTORY OF 1984 metal removed from right tibial area PAST SURGICAL HISTORY OF [facility] PAST SURGICAL HISTORY OF Right 11/2022 Tear duct bocklage lanced TOTAL ABDOMINAL HYSTERECT W/WO RMVL TUBE OVARY 1999 MAURICE/BSO-pain, no abnormal paps FAMILY HISTORY Problem Relation Age of Onset None Mother from fall Diabetes Father Ischemic Heart Disease Father d. [place] Ischemic Heart Disease Maternal Grandfather d. [place] while holding her at 4mo Blindness Brother Heart Attack Brother (more content not included)... Normal [facility] XR CHEST 2V FRONTAL/LATon XR CHEST 2V FRONTAL/LAT * * *Final Report* * * DATE OF EXAM: Feb 10 2023 9:49AM WOX [id number] - XR CHEST 2V FRONTAL/LAT / PROCEDURE REASON: Bronchitis * * * * Physician Interpretation * * * * EXAMINATION: CHEST RADIOGRAPH (2 VIEW FRONTAL and LATERAL) CLINICAL HISTORY: Bronchitis MQ: XC2_6 EXAM DATE/TIME: 02/10/2023 9:49 AM COMPARISON: Chest radiograph dated 11/16/2022 RESULT: Lines, tubes, and devices: None. Lungs and pleura: Mild lingular atelectasis/scarring. No focal lung consolidation. No significant pleural effusion or pneumothorax. Mild biapical scarring, likely postinflammatory. Cardiomediastinal silhouette: Stable cardiomediastinal silhouette. Mild atherosclerotic calcifications of the aortic arch. Bones and soft tissues: Degenerative changes are present within the thoracic spine. IMPRESSION: No acute radiographic abnormality. Basting Cleaner: ROSITA Transcribe Date/Time: Feb 10 2023 10:57A Dictated by : OSCAR HENDERSON MD This examination was interpreted and the report reviewed and electronically signed by: OSCAR HENDERSON MD on Feb 10 2023 10:58AM EST [id number] Normal [facility] XR Chest PA and Lateralon IMPRESSION: No acute radiographic abnormality. Basting Cleaner: [facility] Transcribe Date/Time: Feb 10 2023 10:57A Dictated by : OSCAR HENDERSON MD This examination was interpreted and the report reviewed and electronically signed by: OSCAR HENDERSON MD on Feb 10 2023 10:58AM EST DIVISION OF RADIOLOGY * * *Final Report* * * DATE OF EXAM: Feb 10 2023 9:49AM WOX [id number] - XR CHEST 2V FRONTAL/LAT / PROCEDURE REASON: Bronchitis * * * * Physician Interpretation * * * * EXAMINATION: CHEST RADIOGRAPH (2 VIEW FRONTAL & LATERAL) CLINICAL HISTORY: Bronchitis MQ: XC2_6 EXAM DATE/TIME: 02/10/2023 9:49 AM COMPARISON: Chest radiograph dated 11/16/2022 RESULT: Lines, tubes, and devices: None. Lungs and pleura: Mild lingular atelectasis/scarring. No focal lung consolidation. No significant pleural effusion or pneumothorax. Mild biapical scarring, likely postinflammatory. Cardiomediastinal silhouette: Stable cardiomediastinal silhouette. Mild atherosclerotic calcifications of the aortic arch. Bones and soft tissues: Degenerative changes are present within the thoracic spine. DIVISION OF RADIOLOGY Provider, Katherine Fabian Theresa - 02/10/2023 * * *Final Report* * * DATE OF EXAM: Feb 10 2023 9:49AM WOX [id number] - XR CHEST 2V FRONTAL/LAT / PROCEDURE REASON: Bronchitis * * * * Physician Interpretation * * * * EXAMINATION: CHEST RADIOGRAPH (2 VIEW FRONTAL & LATERAL) CLINICAL HISTORY: Bronchitis MQ: XC2_6 EXAM DATE/TIME: 02/10/2023 9:49 AM COMPARISON: Chest radiograph dated 11/16/2022 RESULT: Lines, tubes, and devices: None. Lungs and pleura: Mild lingular atelectasis/scarring. No focal lung consolidation. No significant pleural effusion or pneumothorax. Mild biapical scarring, likely postinflammatory. Cardiomediastinal silhouette: Stable cardiomediastinal silhouette. Mild atherosclerotic calcifications of the aortic arch. Bones and soft tissues: Degenerative changes are present within the thoracic spine. IMPRESSION IMPRESSION: No acute radiographic abnormality. Basting Cleaner: PSCB Transcribe Date/Time: Feb 10 2023 10:57A Dictated by : OSCAR HENDERSON MD This examination was interpreted and the report reviewed and electronically signed by: OSCAR HENDERSON MD on Feb 10 2023 10:58AM EST [facility] Radiology Study observation (narrative) [facility] XR Chest PA and LateralOrder ed By: Ccf Provider on 02-10-2023 [facility] CNOVon 01-01-2023 CNOV Office Visit (INTMWS ) ROMAIN BAILEY ([id number]) 1950 F T Date Time Provider Department 01/01/23 9:00 AM FAITH MULLINS INTMWS During your visit today, we recorded the following information about you: Pulse Respiration Blood pressure Weight 74/minute 16/minute 126/77 93.4 kg Faith Mullins APRN.MEDICAL PAYMENT POSTER 01/01/2023 10:02 AM Signed SUBJECTIVE: Spirometry Never done Shingrix Vaccine(1 of 2) Never done RSV Vaccine(1 - 1-dose 60+ series) Never done Mammogram Screening due on 06/26/2017 Advance Directive Discussion due on 02/26/2022 Influenza Vaccine(1) due on 10/27/2022 Covid-19 Vaccine( season) due on 10/27/2022 HPI Romain Bailey is a 72 year old female. PMH is significant for ACTIVE PROBLEM LIST Environmental Allergies Asthma Arthropathy, Unspecified, Site Unspecified Essential Hypertension Ibs (Irritable Bowel Syndrome) Gerd (Gastroesophageal Reflux Disease) Migraine Hyperlipidemia, Mixed History of Colon Polyps Chronic Pain of Right Knee Primary Osteoarthritis of Right Knee Bppv (Benign Paroxysmal Positional Vertigo) Bee Sting Allergy Bilateral Low Back Pain With Bilateral Sciatica Calculus of Kidney Llq Pain History of Tia (Transient Ischemic Attack) Dry Skin Sacroiliitis (Hcc) History of Asthma Acquired Stenosis of Nasolacrimal Duct, Right Unspecified Dacryocystitis of Right Lacrimal Passage Unspecified Injury of Right Lower Leg, Initial Encounter Chest Pain Contusion of Left Wrist Contusion of Knee, Left Contusion of Elbow Colitis HPI excerpted from previous visit: PCP: Erik Reynolds MD Seen by Dr Rogers 06/2021. Since last here had GIB, colitis at [facility] 09/15/2021. Seen by Dr Cowan 11/2021 in office. Colonoscopy end of October. Fibroscan recommended, then follow up recommended. Presents at [facility] to establish care. She reports losing her job and pandemic and getting behind intermittent. Notes her current landlord is trying to evict her. She reports she reached out to community action about 1 month ago and does not hurt anymore from her landlord. Seen by Fatemeh Rogers MD June 2022. Noted plan to follow-up with pain management regarding sacroiliitis. Seen by [facility] spine provider, see my chart message July 2022. Note she is in her usual state of health. Notes she has 5 pies to make for her large family for the holiday. Followed by [facility].Dr Damico [facility] pharmacologic myocardial perfusion stress test completed for chest pain. Negative for ischemia, preserved ejection fraction. On chronic OAC. No bleeding difficulties. Express care visit September 07 for swelling of gland right eyelid. ER visit November 04, 2022, [facility] for fall and right wrist injury. Express care visit November 16 for upper respiratory infection. Express care visit for infection of right eye November 25, 2022. She has subsequently followed up with [facility]. Has a February appointment regarding her right lacrimal gland. Cataract surgery both eyes this last year. IBS, GERD, colitis. Seen by Dr Camryn HERNADEZ. Taking colestipol which helps with diarrhea. Taking every other day because it causes constipation when taking daily Notes recurrence of left shoulder pain, some pain with movement, decreased range of motion, crepitus. Has been completing HEP which is helped somewhat. Has taken Tylenol which is helped somewhat. We will hold off on any additional medication or referral to PT or orthopedics at this time. She will let us know if not improving. HTN: Occasional palpitations. headache, chest pain, dyspnea, peripheral edema, orthopnea, fatigue, and PND. Last 14 Encounter BP Readings: Date: BP: 11/25/2022 128/74 11/16/2022 170/80 09/07/2022 126/72 08/10/2022 108/50 06/30/2022 122/64 04/11/2022 136/80 01/10/2022 136/78 12/22/2021 140/80 10/11/2021 136/80 08/15/2021 142/78 08/12/2021 130/72 06/29/2021 156/74 01/25/2021 132/68 01/06/2021 144/72 Hyperlipidemia. Ms. Bailey reports doing well on current therapy Her most recent lipid panels are: Cholesterol, Total (mg/dL) Date Value 08/19/2021 175 07/29/2018 150 04/06/2018 168 Total Cholesterol, Nonfasting (mg/dL) Date Value 06/30/2022 183 HDL Cholesterol (mg/dL) Date Value 08/19/2021 45 07/29/2018 45 04/06/2018 44 HDL Cholesterol, Nonfasting (mg/dL) Date Value 06/30/2022 46 LDL Cholesterol (mg/dL) Date Value 08/19/2021 107 04/06/2018 107 03/17/2017 127 LDL Cholesterol, Nonfasting (mg/dL) Date Value 06/30/2022 92 LDL Calculated (mg/dL) Date Value 07/29/2018 95 Triglyceride (mg/dL) Date Value 08/19/2021 113 07/29/2018 52 04/06/2018 83 Triglycerides, Nonfasting (mg/dL) Date Value 06/30/2022 224 Asthma: chronic shortness of breath on exertion primarily; stable. No recent exacerbation S (more content not included)... Normal [facility] CNOVon 12-14-2022 CNOV Office Visit (PATRICIO ) ROMAIN BAILEY ([id number]) 1950 F T Date Time Provider Department 12/14/22 9:00 AM DWIGHT ENCARNACION During your visit today, we recorded the following information about you: Dwight Encarnacion MD 01/10/2023 8:09 AM Signed Dwight Encarnacion MD Department of Orthopaedics Orthopaedics [address] [facility] [address] Dept: [phone] Dept December 14, 2022 CHIEF COMPLAINT: Established Patient and Pain of the Right Wrist and Last seen 08/09/20 Left ankle sprain HPI Patient here for evaluation right wrist pain. Patient states she slipped on water in her kitchen on 11/04/22 and her wrist hit the doorknob on the door. She lives in an old house that was a glass knob. Patient is having pain on the lateral aspect that can radiate around to her palm. Patient is right hand dominant. Uses left hand to ambulate with her cane. Taking Tylenol for the pain and does help. X-rays done at [facility] ED and are uploaded into [employer]. She was given and chapis wrap to wear on her wrist but felt it didn't help. New x-rays done today. ASSESSMENT: M25.531 Right wrist pain (primary encounter diagnosis) M18.11 Primary osteoarthritis of first carpometacarpal joint of right hand PLAN: Overall, her wrist is feeling a little bit better. She does have severe CMC and STT arthritis which is likely contributing a bit as well. Tenderness over the ulnar fossa, cortisone injection down the line if she needs/wishes. My recommendation is for some bracing and a topical anti-inflammatory. We can at a later date to discuss any possibilities for her thumb if necessary. Ms. Romain Bailey was advised as to contrast therapies and/or to take analgesics/anti-inflamm atories as needed and all contraindications were reviewed. OBJECTIVE: Ms. Romain Bailey is a pleasant 72 year old in no apparent distress. Gen:There were no vitals taken for this visit. nl development, non obese, no deformities ENT: Normocephalic, normal hearing, moist mucosa CV: Pulses:Radial= 2+ and symmetric, capillary refill < 2 secs, no peripheral edema/varicosities Skin: no rash, bruising or lesions. Good turgor. Psych: cooperative and appropriate, alert and oriented x 3, good mood and affect. Musculoskeletal: Ulnar gutter tenderness. Imaging: IMPRESSION: Osteoarthritis, severe at the 1st CMC joint. No fracture or radiopaque foreign body. Basting Cleaner: PSCB Transcribe Date/Time: Dec 17 2022 12:03P Dictated by : KACY GONZALEZ MD This examination was interpreted and the report reviewed and electronically signed by: KACY GONZALEZ MD on Dec 17 2022 12:04PM EST Results-Findings * * *Final Report* * * DATE OF EXAM: Dec 14 2022 8:39AM [id number] - XR WRIST 3V PA/LAT/OBL RT / PROCEDURE REASON: Pain * * * * Physician Interpretation * * * * X-RAYS RIGHT WRIST HISTORY: fell a month ago and hit right wrist on glass knob in [place] has throbbing still ulnar side with swelling. Pain TECHNIQUE: 3 views COMPARISON: 07/28/2017 x-rays RESULT: Severe 1st CMC joint and moderate triscaphe joint osteoarthritis. No acute fracture or dislocation. There is underlying osteopenia noted. No discrete soft tissue abnormality identified. No radiopaque foreign body identified within the soft tissues. Supporting Subjective Information Below: Past Surgical History: PAST SURGICAL HISTORY Procedure Laterality Date CHOLECYSTECTOMY ~2003 Cholecystectomy laparoscopic COLONOSCOPY AND POLYPECTOMY 12/03/2013 tubular adenoma, hyperplastic polyp; repeat due in 5y COLONOSCOPY FLX DX W/COLLJ SPEC WHEN PFRMD 05/29/2018 Colonoscopy DEBRIDEMENT SUBCUTANEOUS TISSUE 20 SQ CM/< 05/15/2007 Debridement infected moira cyst upper mid back PAST SURGICAL HISTORY OF 1984 metal removed from right tibial area PAST SURGICAL HISTORY OF [facility] PAST SURGICAL HISTORY OF Right 11/2022 Tear duct bocklage lanced TOTAL ABDOMINAL HYSTERECT W/WO RMVL TUBE OVARY 1999 MAURICE/BSO-pain, no abnormal paps Medications: Current Outpatient Medications Medication Sig metoprolol tartrate, short acting, (LOPRESSOR) 25 mg tablet Take 0.5 tablets by mouth twice daily. atorvastatin (LIPITOR) 40 mg tablet Take 1 tablet by mouth once daily. pantoprazole DR (PROTONIX) 20 mg tablet Take 1 tablet by mouth once daily. docusate sodium (STOOL SOFTENER ORAL) Take by mouth once daily. fluticasone-salmeterol (ADVAIR DISKUS) 100-50 mcg/dose inhaler Inhale 1 Puff as instructed twice daily. RINSE AND GARGLE MOUTH WITH WATER AFTER EACH USE. loratadine (CLARITIN) 10 mg tablet Take 1 tablet by mouth once daily. ammonium lactate (LAC-HYDRIN) 12 % lotion Apply 1 application to affected area once daily as needed for dry skin (arms). albuterol HFA (PROVENTIL HFA, VENTOLIN HFA) 90 mcg/actuation inhaler Inhale 2 Puffs as in (more content not included)... Normal [facility] XR WRIST 3V PA/LAT/OBL RTon 12-14-2022 XR WRIST 3V PA/LAT/OBL RT * * *Final Report* * * DATE OF EXAM: Dec 14 2022 8:39AM [id number] - XR WRIST 3V PA/LAT/OBL RT / PROCEDURE REASON: Pain * * * * Physician Interpretation * * * * X-RAYS RIGHT WRIST HISTORY: fell a month ago and hit right wrist on glass knob in [place] has throbbing still ulnar side with swelling. Pain TECHNIQUE: 3 views COMPARISON: 07/28/2017 x-rays RESULT: Severe 1st CMC joint and moderate triscaphe joint osteoarthritis. No acute fracture or dislocation. There is underlying osteopenia noted. No discrete soft tissue abnormality identified. No radiopaque foreign body identified within the soft tissues. IMPRESSION: Osteoarthritis, severe at the 1st CMC joint. No fracture or radiopaque foreign body. Basting Cleaner: PSCB Transcribe Date/Time: Dec 17 2022 12:03P Dictated by : KACY GONZALEZ MD This examination was interpreted and the report reviewed and electronically signed by: KACY GONZALEZ MD on Dec 17 2022 12:04PM EST [id number] Normal [facility] ROMAIN [facility]AI[facility] ([id number]) 1950 F CHT Date Time Provider Department 11/30/22 FATEMEH ROGERS INTMWS During your visit today, we recorded the following information about you: Vanessa Christy, RN 11/30/2022 10:58 AM Signed Pt calling in as she recently changed insurance companies to [employer]. An MILK BOTTLING MACHINE OPERATOR came to her house yesterday to do a health assessment. He performed a fingerstick Hgb A1c and the result was 6.0. He told her to contact her PCP. Pt has an appt on 01/01/23 for 6 mon f/u with Faith Mullins. Does she need to be seen sooner or have some labwork drawn before appt? Faith Mullins, DIRECTOR STAFFING.MEDICAL PAYMENT POSTER 11/30/2022 11:24 AM Signed If she could bring the paper from her insurance with the information that would be helpful. Can do labs here if she would like. Dania Hubbard RN 11/30/2022 1:11 PM Signed Pt called and is notified of providers message and instructions. Pt voices understanding and will bring paperwork to appointment. She will have provider order what ever is necessary at that time. Dania Hubbard RN Allergies As of Date: 11/30/2022 Noted Allergy Reaction ADHESIVE TAPE (ROSINS) 12/05/2016 2 - Rash BACTRIM DS (SULFAMETHOXAZOLE-TRIM* 12/29/2014 10 - Anaphylaxis Comments: Difficulty breathing, fever, chills BEE STING 08/28/2012 10 - Anaphylaxis DARVON (PROPOXYPHENE HCL) 05/15/2007 INFLUENZA VIRUS VACCINES 01/07/2019 14 - Other: See Comments Comments: Chest tightness, arm swelling. PREDNISONE 03/07/2016 8 - GI Upset Date Reviewed: 11/25/2022 Reviewed by: Bibiana Reyes LPN - Fully Assessed Reason for Visit: Patient Question [3647] Prescriptions as of 11/30/2022 - erythromycin (ROMYCIN) 5 mg/gram (0.5 %) ophthalmic ointment Use 1 application in the right eye four times daily for 7 days. - metoprolol tartrate, short acting, (LOPRESSOR) 25 mg tablet Take 0.5 tablets by mouth twice daily. - verapamil SR (CALAN SR) 240 mg CR tablet Take 1 tablet by mouth daily at bedtime. - atorvastatin (LIPITOR) 40 mg tablet Take 1 tablet by mouth once daily. - pantoprazole DR (PROTONIX) 20 mg tablet Take 1 tablet by mouth once daily. - docusate sodium (STOOL SOFTENER ORAL) Take by mouth once daily. - methylPREDNISolone (MEDROL, PONCHO,) 4 mg Dose-Pack Take by mouth as directed until finished. - fluticasone-salmeterol (ADVAIR DISKUS) 100-50 mcg/dose inhaler Inhale 1 Puff as instructed twice daily. RINSE AND GARGLE MOUTH WITH WATER AFTER EACH USE. - loratadine (CLARITIN) 10 mg tablet Take 1 tablet by mouth once daily. - cyclobenzaprine HCl (FLEXERIL ORAL) Take by mouth. - cyclobenzaprine (FLEXERIL) 10 mg tablet - ammonium lactate (LAC-HYDRIN) 12 % lotion Apply 1 application to affected area once daily as needed for dry skin (arms). - albuterol HFA (PROVENTIL HFA, VENTOLIN HFA) 90 mcg/actuation inhaler Inhale 2 Puffs as instructed every 6 hours as needed. - albuterol (PROVENTIL) 2.5 mg /3 mL (0.083 %) nebulizer solution Use 3 mL via nebulizer every 4 hours as needed for wheezing/shortness of breath. Use over 5-15minutes. - apixaban (ELIQUIS) 5 mg tab(s) Take 5 mg by mouth twice daily. Will start when delivered - ondansetron orally disintegrating (ZOFRAN ODT) 4 mg disintegrating tablet DISSOLVE 1 TABLET ON THE TONGUE EVERY 6 HOURS NEEDED FOR NAUSEA/VOMITING - EPINEPHrine (AUVI-Q) 0.3 mg/0.3 mL auto-injector Inject 0.3 mL intramuscularly as needed. - meclizine (ANTIVERT) 25 mg tab Take 1 tablet by mouth every 6 hours as needed (dizziness). - fluticasone (FLONASE) 50 mcg/actuation nasal spray Use 2 Sprays in each nostril once daily. - bifidobacteri bifid.and longum (FLORAJEN BIFIDOBLEND) 460 mg (9-1 bill.cell) cap Take 1 capsule by mouth once daily. - cycloSPORINE (RESTASIS) 0.05 % ophthalmic emulsion Use 1 Drop in both eyes twice daily. Both eyes. - Nebulizer NEBULIZER FOR HOME USE. DX: J45.20 Meds Comments as of 06/10/2021: August 26, 2019 The patient states the Warfarin dose is adjusted based on blood work. Lotus Sosa RN 08/19/2019: Patient is not taking Eliquis. currently on Loratadine, doxycycline, magnesium supplement. Lubna Armstrong RN 09/17/2019 8:20 AM Reviewed these new meds. Methylprednisilone and Macrobid. Do Ortiz RN Problem List As Of Date 11/30/2022 Noted Resolved Sebaceous cyst [L72.3] 05/15/2007 04/16/2012 Environmental allergies [Z91.09] Asthma [J45.909] Arthropathy, unspecified, site unspecified [M12* Essential hypertension [I10] IBS (irritable bowel syndrome) [K58.9] GERD (gastroesophageal reflux disease) [K21.9] Migraine [G43.909] Diverticulitis [K57.92] 12/10/2020 Hyperlipidemia, mixed [E78.2] Fracture of finger, middle or proximal phalanx,*08/28/2012 12/10/2020 History of colon polyps [Z86.010] Chronic pain of right knee [M25.561, G89.29] 12/13/2015 Primary osteoarthritis of right knee [M17 (more content not included)... Normal [facility] CNOVon 11-25-2022 CNOV Office Visit (UCTR ) ROMAIN BAILEY ([id number]) 1950 F T Date Time Provider Department 11/25/22 2:30 PM LORI ENGEL [facility] During your visit today, we recorded the following information about you: Temperature Pulse Respiration Blood pressure 98.7 degrees 72/minute 18/minute 128/74 Weight 93.2 kg Lori Engel APRN.FIBERGLASS LUGGAGE MOLDER 11/25/2022 2:54 PM Signed Subjective Came in with complaints of right eye irritation and drainage. Patient says she had the same thing back in mid summer. Patient said she had erythromycin ointment and went away. Patient has not seen an eye doctor in many years. Patient denies any vision changes. The history is provided by the patient. No aerial gunner was used. Review of Systems Constitutional: Negative. Skin: Negative. Objective Physical Exam Constitutional: Appearance: Normal appearance. Eyes: Comments: Firm lump in the area marked above. Patient does have green mucousy drainage in and around her eye. Pulmonary: Effort: Pulmonary effort is normal. Neurological: Mental Status: She is alert. PAST MEDICAL HISTORY Diagnosis Date Arthropathy, unspecified, site unspecified Asthma Back pain Calculus of kidney 05/09/2018 Colon polyps 2013 Diverticulitis 2000 Environmental allergies GERD (gastroesophageal reflux disease) Hyperlipidemia lifestyle controlled Hypertension IBS (irritable bowel syndrome) Migraine Obesity Pseudophakia 12/2021 both PAST SURGICAL HISTORY Procedure Laterality Date CHOLECYSTECTOMY ~2003 Cholecystectomy laparoscopic COLONOSCOPY AND POLYPECTOMY 12/03/2013 tubular adenoma, hyperplastic polyp; repeat due in 5y COLONOSCOPY FLX DX W/COLLJ SPEC WHEN PFRMD 05/29/2018 Colonoscopy DEBRIDEMENT SUBCUTANEOUS TISSUE 20 SQ CM/< 05/15/07 Debridement infected moira cyst upper mid back PAST SURGICAL HISTORY OF 1984 metal removed from right tibial area PAST SURGICAL HISTORY OF [facility] TOTAL ABDOMINAL HYSTERECT W/WO RMVL TUBE OVARY 1999 MAURICE/BSO-pain, no abnormal paps ALLERGIES Adhesive Tape (Rosins), Bactrim Ds [Sulfamethoxazole-Trime thoprim], Bee Sting, Darvon [Propoxyphene Hcl], Influenza Virus Vaccines, and Prednisone MEDICATIONS metoprolol tartrate, short acting, (LOPRESSOR) 25 mg tablet Take 0.5 tablets by mouth twice daily. verapamil SR (CALAN SR) 240 mg CR tablet Take 1 tablet by mouth daily at bedtime. atorvastatin (LIPITOR) 40 mg tablet Take 1 tablet by mouth once daily. pantoprazole DR (PROTONIX) 20 mg tablet Take 1 tablet by mouth once daily. docusate sodium (STOOL SOFTENER ORAL) Take by mouth once daily. methylPREDNISolone (MEDROL, PONCHO,) 4 mg Dose-Pack Take by mouth as directed until finished. fluticasone-salmeterol (ADVAIR DISKUS) 100-50 mcg/dose inhaler Inhale 1 Puff as instructed twice daily. RINSE AND GARGLE MOUTH WITH WATER AFTER EACH USE. loratadine (CLARITIN) 10 mg tablet Take 1 tablet by mouth once daily. cyclobenzaprine HCl (FLEXERIL ORAL) Take by mouth. cyclobenzaprine (FLEXERIL) 10 mg tablet ammonium lactate (LAC-HYDRIN) 12 % lotion Apply 1 application to affected area once daily as needed for dry skin (arms). albuterol HFA (PROVENTIL HFA, VENTOLIN HFA) 90 mcg/actuation inhaler Inhale 2 Puffs as instructed every 6 hours as needed. albuterol (PROVENTIL) 2.5 mg /3 mL (0.083 %) nebulizer solution Use 3 mL via nebulizer every 4 hours as needed for wheezing/shortness of breath. Use over 5-15minutes. apixaban (ELIQUIS) 5 mg tab(s) Take 5 mg by mouth twice daily. Will start when delivered ondansetron orally disintegrating (ZOFRAN ODT) 4 mg disintegrating tablet DISSOLVE 1 TABLET ON THE TONGUE EVERY 6 HOURS NEEDED FOR NAUSEA/VOMITING EPINEPHrine (AUVI-Q) 0.3 mg/0.3 mL auto-injector Inject 0.3 mL intramuscularly as needed. meclizine (ANTIVERT) 25 mg tab Take 1 tablet by mouth every 6 hours as needed (dizziness). fluticasone (FLONASE) 50 mcg/actuation nasal spray Use 2 Sprays in each nostril once daily. bifidobacteri bifid.and longum (FLORAJEN BIFIDOBLEND) 460 mg (9-1 bill.cell) cap Take 1 capsule by mouth once daily. cycloSPORINE (RESTASIS) 0.05 % ophthalmic emulsion Use 1 Drop in both eyes twice daily. Both eyes. Nebulizer NEBULIZER FOR HOME USE. DX: J45.20 erythromycin (ROMYCIN) 5 mg/gram (0.5 %) ophthalmic ointment Use 1 application in the right eye four times daily for 7 days. FAMILY HISTORY Problem Relation Age of Onset None Mother from fall Diabetes Father Ischemic Heart Disease Father d. [place] Ischemic Heart Disease Maternal Grandfather d. [place] while holding her at 4mo Blindness Brother Heart Attack Brother Social History Tobacco Use Smoking status: Never Smokeless tobacco: Never Vaping Use Vaping Use: Never used Substance Use Topics Alcohol use: No Drug use: No ASSESSMENT/PLAN: 1. Infection of right eye - ICD9: 360. (more content not included)... Normal [facility] COVID NAAT, UPPER RESPIRATOR Y, ROUTINEon 11-17-2022 SARS-CoV-2 (COVID-19) RNA CATIE+probe Ql (Resp) Not detected See comment [facility] ROUTINE FLU A/B + RSVon 10-28 FLUAV RNA CATIE+probe Ql (Unsp spec) Not detected Not Detected [facility] FLUBV RNA CATIE+probe Ql (Unsp spec) Not detected Not Detected [facility] RSV A RNA CATIE+probe Ql (Unsp spec) Not detected Not Detected [facility] CNOVon 11-16-2022 CNOV Office Visit (UCWSTR ) ROMAIN BAILEY ([id number]) 1950 F CHT Date Time Provider Department 11/16/22 4:30 PM KOMAL WALTER [facility] During your visit today, we recorded the following information about you: Temperature Pulse Respiration Blood pressure 99.2 degrees 71/minute 22/minute 170/80 Weight 93.4 kg Komal Walter APRN.FIBERGLASS LUGGAGE MOLDER 11/16/2022 6:04 PM Signed Subjective HPI HPI Romain Bailey is a 72 year old female who presents today for CC of cough, congestion, fever. This started 3 days ago. Has tried otc medication for relief. Symptoms are worsened by nothing. Risk factors recent sick exposures. Hx of asthma. .Patient presents with: Cough: Congestion in nasal and chest, sneezing, low grade fever, scratchy throat, x 3 days PAST MEDICAL HISTORY Diagnosis Date Arthropathy, unspecified, site unspecified Asthma Back pain Calculus of kidney 05/09/2018 Colon polyps 2014 Diverticulitis 2000 Environmental allergies GERD (gastroesophageal reflux disease) Hyperlipidemia lifestyle controlled Hypertension IBS (irritable bowel syndrome) Migraine Obesity Pseudophakia 12/2021 both PAST SURGICAL HISTORY Procedure Laterality Date CHOLECYSTECTOMY ~2003 Cholecystectomy laparoscopic COLONOSCOPY AND POLYPECTOMY 12/03/2013 tubular adenoma, hyperplastic polyp; repeat due in 5y COLONOSCOPY FLX DX W/COLLJ SPEC WHEN PFRMD 05/29/2018 Colonoscopy DEBRIDEMENT SUBCUTANEOUS TISSUE 20 SQ CM/< 05/15/07 Debridement infected moira cyst upper mid back PAST SURGICAL HISTORY OF 1984 metal removed from right tibial area PAST SURGICAL HISTORY OF [facility] TOTAL ABDOMINAL HYSTERECT W/WO RMVL TUBE OVARY 1999 MAURICE/BSO-pain, no abnormal paps ALLERGIES Adhesive Tape (Rosins), Bactrim Ds [Sulfamethoxazole-Trime thoprim], Bee Sting, Darvon [Propoxyphene Hcl], Influenza Virus Vaccines, and Prednisone MEDICATIONS metoprolol tartrate, short acting, (LOPRESSOR) 25 mg tablet Take 0.5 tablets by mouth twice daily. verapamil SR (CALAN SR) 240 mg CR tablet Take 1 tablet by mouth daily at bedtime. atorvastatin (LIPITOR) 40 mg tablet Take 1 tablet by mouth once daily. pantoprazole DR (PROTONIX) 20 mg tablet Take 1 tablet by mouth once daily. erythromycin (ROMYCIN) 5 mg/gram (0.5 %) ophthalmic ointment Use 1 application in the right eye four times daily. docusate sodium (STOOL SOFTENER ORAL) Take by mouth once daily. methylPREDNISolone (MEDROL, PONCHO,) 4 mg Dose-Pack Take by mouth as directed until finished. fluticasone-salmeterol (ADVAIR DISKUS) 100-50 mcg/dose inhaler Inhale 1 Puff as instructed twice daily. RINSE AND GARGLE MOUTH WITH WATER AFTER EACH USE. loratadine (CLARITIN) 10 mg tablet Take 1 tablet by mouth once daily. [id number] METH 3.5 MG/ML-10,000 UNIT/ML-0.1% EYE DROPS 1 drop right eye four times a day for 1 week then three times a day for 1 week, then two times a day for 1 week, then once a day for 1 wk cyclobenzaprine HCl (FLEXERIL ORAL) Take by mouth. cyclobenzaprine (FLEXERIL) 10 mg tablet ammonium lactate (LAC-HYDRIN) 12 % lotion Apply 1 application to affected area once daily as needed for dry skin (arms). albuterol HFA (PROVENTIL HFA, VENTOLIN HFA) 90 mcg/actuation inhaler Inhale 2 Puffs as instructed every 6 hours as needed. albuterol (PROVENTIL) 2.5 mg /3 mL (0.083 %) nebulizer solution Use 3 mL via nebulizer every 4 hours as needed for wheezing/shortness of breath. Use over 5-15minutes. apixaban (ELIQUIS) 5 mg tab(s) Take 5 mg by mouth twice daily. Will start when delivered ondansetron orally disintegrating (ZOFRAN ODT) 4 mg disintegrating tablet DISSOLVE 1 TABLET ON THE TONGUE EVERY 6 HOURS NEEDED FOR NAUSEA/VOMITING EPINEPHrine (AUVI-Q) 0.3 mg/0.3 mL auto-injector Inject 0.3 mL intramuscularly as needed. meclizine (ANTIVERT) 25 mg tab Take 1 tablet by mouth every 6 hours as needed (dizziness). fluticasone (FLONASE) 50 mcg/actuation nasal spray Use 2 Sprays in each nostril once daily. bifidobacteri bifid.and longum (FLORAJEN BIFIDOBLEND) 460 mg (9-1 bill.cell) cap Take 1 capsule by mouth once daily. cycloSPORINE (RESTASIS) 0.05 % ophthalmic emulsion Use 1 Drop in both eyes twice daily. Both eyes. Nebulizer NEBULIZER FOR HOME USE. DX: J45.20 FAMILY HISTORY Problem Relation Age of Onset None Mother from fall Diabetes Father Ischemic Heart Disease Father d[place] Ischemic Heart Disease Maternal Grandfather d. [place] while holding her at 4mo Blindness Brother Heart Attack Brother Social History Tobacco Use Smoking status: Never Smokeless tobacco: Never Vaping Use Vaping Use: Never used Substance Use Topics Alcohol use: No Drug use: No Review of Systems Constitutional: Negative for fever. HENT: Positive for congestion and sore throat. Negative for ear pain and nosebleeds. Respiratory: Positive for cough and shortne (more content not included)... Normal [facility] ROUTINE FLU A/B + RSVon 10-28 FLUAV RNA CATIE+probe Ql (Unsp spec) Not detected Normal Not Detected [facility] Comment on above: Order Comment: Speci men Type: SWAB OF INTERNAL NOSEOrdering Facility: [facility] Address: [address] [place] [address] Performed By: #### 9 4500-6, RTFRSV ####[facility] LABCLIA [id number] [place] [address] [place] FLUBV RNA CATIE+probe Ql (Unsp spec) Not detected Normal Not Detected [facility] Comment on above: Order Comment: Speci men Type: SWAB OF INTERNAL NOSEOrdering Facility: [facility] Address: [address] [place] [address] Performed By: #### 9 4500-6, RTFRSV ####[facility] [id number] [place] [address] [place] RSV A RNA CATIE+probe Ql (Unsp spec) Not detected Normal Not Detected [facility] Comment on above: Order Comment: Speci men Type: SWAB OF INTERNAL NOSEOrdering Facility: [facility] Address: [address] [address] Performed By: #### 9 4500-6, RTFRSV ####[facility] [id number] [place] [address] [place] SARS-CoV-2 RNA Resp Ql CATIE+p robeon 11-16-2022 SARS-CoV-2 (COVID-19) RNA CATIE+probe Ql (Resp) COVID 19 RESULT: Not detected The method used is RT-PCR or an equivalent NAAT method. Reference Range (the expected result in uninfected individuals): Not detected Normal [facility] Comment on above: Performed By: #### 9 4500-6, RTFRSV ####[facility] [id number] [place] [address] [place] XR CHEST 2V FRONTAL/LATon XR CHEST 2V FRONTAL/LAT * * *Final Report* * * DATE OF EXAM: Nov 16 2022 5:10PM WOX 5291 - XR CHEST 2V FRONTAL/LAT / PROCEDURE REASON: Acute cough * * * * Physician Interpretation * * * * CHEST X-RAY CLINICAL HISTORY: Acute cough TECHNIQUE: Upright frontal and lateral views. COMPARISON: None. RESULT: Heart/mediastinum: Within normal limits. Lungs/pleura: Clear. Bones/soft tissues: Unremarkable. Lines/tubes/devices: None visualized. IMPRESSION: No active disease in the chest. Basting Cleaner: PSCB Transcribe Date/Time: Nov 16 2022 5:16P Dictated by : TRINITY LOUISE MD This examination was interpreted and the report reviewed and electronically signed by: TRINITY LOUISE MD on Nov 16 2022 5:17PM EST [id number] Normal [facility] XR Chest PA and Lateralon IMPRESSION: No active disease in the chest. Basting Cleaner: ROSITA Transcribe Date/Time: Nov 16 2022 5:16P Dictated by : TRINITY LOUISE MD This examination was interpreted and the report reviewed and electronically signed by: TRINITY LOUISE MD on Nov 16 2022 5:17PM [facility] DIVISION OF RADIOLOGY * * *Final Report* * * DATE OF EXAM: Nov 16 2022 5:10PM WOX 5291 - XR CHEST 2V FRONTAL/LAT / PROCEDURE REASON: Acute cough * * * * Physician Interpretation * * * * CHEST X-RAY CLINICAL HISTORY: Acute cough TECHNIQUE: Upright frontal and lateral views. COMPARISON: None. RESULT: Heart/mediastinum: Within normal limits. Lungs/pleura: Clear. Bones/soft tissues: Unremarkable. Lines/tubes/devices: None visualized. DIVISION OF RADIOLOGY Provider, Katherine Fabian [facility] - 11/16/2022 * * *Final Report* * * DATE OF EXAM: Nov 16 2022 5:10PM WOX 5291 - XR CHEST 2V FRONTAL/LAT / PROCEDURE REASON: Acute cough * * * * Physician Interpretation * * * * CHEST X-RAY CLINICAL HISTORY: Acute cough TECHNIQUE: Upright frontal and lateral views. COMPARISON: None. RESULT: Heart/mediastinum: Within normal limits. Lungs/pleura: Clear. Bones/soft tissues: Unremarkable. Lines/tubes/devices: None visualized. IMPRESSION IMPRESSION: No active disease in the chest. Basting Cleaner: ROSITA Transcribe Date/Time: Nov 16 2022 5:16P Dictated by : TRINITY LOUISE MD This examination was interpreted and the report reviewed and electronically signed by: TRINITY LOUISE MD on Nov 16 2022 5:17PM EST [facility] Radiology Study observation (narrative) [facility] XR Chest PA and LateralOrder ed By: Ccf Provider on 11-16-2022 [facility] CNOVon 09-07-2022 CNOV Office Visit ([facility] ) ROMAIN BAILEY ([id number]) 1950 F T Date Time Provider Department 09/07/22 10:00 AM PAUL WIN [facility] During your visit today, we recorded the following information about you: Temperature Pulse Respiration Blood pressure 99.5 degrees 88/minute 18/minute 126/72 Weight 94.9 kg Paul Win APRN.[employer] 09/07/2022 10:21 AM Signed Subjective HPI Nontoxic-appearing female presents urgent care chief complaint right eye redness and drainage. Duration of symptoms 1 day. Associated symptoms right eye redness drainage discomfort. Patient states for started on her right upper lid yesterday. Redness and drainage has spread to right lower lid. It is painful if she presses around her eyelids. Some swelling. Has not used any OTC medications. States she does have a history of insufficient drainage to eyelid glands. Presents today for evaluation. Denies history of eye trauma flashes light or floaters. Denies any visual acuity changes. Denies any fever body aches chills productive cough chest pain shortness of breath pleuritic pain hemoptysis nausea vomiting abdominal pain change in bowel or bladder habits. Past medical history prescription medication use and allergies reviewed. .Patient presents with: Eye Problem: Red irritated right eye x 1 day PAST MEDICAL HISTORY Diagnosis Date Arthropathy, unspecified, site unspecified Asthma Back pain Calculus of kidney 05/09/2018 Colon polyps 2013 Diverticulitis 2000 Environmental allergies GERD (gastroesophageal reflux disease) Hyperlipidemia lifestyle controlled Hypertension IBS (irritable bowel syndrome) Migraine Obesity Pseudophakia 12/2021 both PAST SURGICAL HISTORY Procedure Laterality Date CHOLECYSTECTOMY ~2004 Cholecystectomy laparoscopic COLONOSCOPY AND POLYPECTOMY 12/03/2013 tubular adenoma, hyperplastic polyp; repeat due in 5y COLONOSCOPY FLX DX W/COLLJ SPEC WHEN PFRMD 05/29/2018 Colonoscopy DEBRIDEMENT SUBCUTANEOUS TISSUE 20 SQ CM/< 05/15/07 Debridement infected moira cyst upper mid back PAST SURGICAL HISTORY OF 1984 metal removed from right tibial area PAST SURGICAL HISTORY OF DANDC TOTAL ABDOMINAL HYSTERECT W/WO RMVL TUBE OVARY 1999 MAURICE/BSO-pain, no abnormal paps ALLERGIES Adhesive Tape (Rosins), Bactrim Ds [Sulfamethoxazole-Trime thoprim], Bee Sting, Darvon [Propoxyphene Hcl], Influenza Virus Vaccines, and Prednisone MEDICATIONS docusate sodium (STOOL SOFTENER ORAL) Take by mouth once daily. methylPREDNISolone (MEDROL, PONCHO,) 4 mg Dose-Pack Take by mouth as directed until finished. fluticasone-salmeterol (ADVAIR DISKUS) 100-50 mcg/dose inhaler Inhale 1 Puff as instructed twice daily. RINSE AND GARGLE MOUTH WITH WATER AFTER EACH USE. loratadine (CLARITIN) 10 mg tablet Take 1 tablet by mouth once daily. [id number] METH 3.5 MG/ML-10,000 UNIT/ML-0.1% EYE DROPS 1 drop right eye four times a day for 1 week then three times a day for 1 week, then two times a day for 1 week, then once a day for 1 wk cyclobenzaprine HCl (FLEXERIL ORAL) Take by mouth. cyclobenzaprine (FLEXERIL) 10 mg tablet ammonium lactate (LAC-HYDRIN) 12 % lotion Apply 1 application to affected area once daily as needed for dry skin (arms). atorvastatin (LIPITOR) 40 mg tablet Take 1 tablet by mouth once daily. verapamil SR (CALAN SR, ISOPTIN SR) 240 mg CR tablet Take 1 tablet by mouth daily at bedtime. pantoprazole DR (PROTONIX) 20 mg tablet Take 1 tablet by mouth once daily. albuterol HFA (PROVENTIL HFA, VENTOLIN HFA) 90 mcg/actuation inhaler Inhale 2 Puffs as instructed every 6 hours as needed. albuterol (PROVENTIL) 2.5 mg /3 mL (0.083 %) nebulizer solution Use 3 mL via nebulizer every 4 hours as needed for wheezing/shortness of breath. Use over 5-15minutes. apixaban (ELIQUIS) 5 mg tab(s) Take 5 mg by mouth twice daily. Will start when delivered ondansetron orally disintegrating (ZOFRAN ODT) 4 mg disintegrating tablet DISSOLVE 1 TABLET ON THE TONGUE EVERY 6 HOURS NEEDED FOR NAUSEA/VOMITING EPINEPHrine (AUVI-Q) 0.3 mg/0.3 mL auto-injector Inject 0.3 mL intramuscularly as needed. meclizine (ANTIVERT) 25 mg tab Take 1 tablet by mouth every 6 hours as needed (dizziness). fluticasone (FLONASE) 50 mcg/actuation nasal spray Use 2 Sprays in each nostril once daily. bifidobacteri bifid.and longum (FLORAJEN BIFIDOBLEND) 460 mg (9-1 bill.cell) cap Take 1 capsule by mouth once daily. metoprolol tartrate, short acting, (LOPRESSOR) 25 mg tablet Take 12.5 mg by mouth twice daily. cycloSPORINE (RESTASIS) 0.05 % ophthalmic emulsion Use 1 Drop in both eyes twice daily. Both eyes. Nebulizer NEBULIZER FOR HOME USE. DX: J45.20 FAMILY HISTORY Problem Relation Age of Onset None Mother from fall Diabetes Father Ischemic Heart Disease Father d. [place] Ischemic Heart Disease Mater (more content not included)... 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 LEVOSCOLIOSIS. Basting Cleaner: ROSITA Transcribe Date/Time: Aug 24 2022 5:33P Dictated by : ROBIN KRAFT MD This examination was interpreted and the report reviewed and electronically signed by: ROBIN KRAFT MD on Aug 24 2022 5:36PM [facility] DIVISION OF RADIOLOGY * * *Final Report* * * DATE OF EXAM: Aug 22 2022 10:30AM WOX 5231 - XR LUMBAR 4V AP/LAT/ FLEX/EXT / PROCEDURE REASON: multiple diagnoses * * * * Physician Interpretation * * * * EXAM: LUMBAR SPINE, 4 VIEWS CLINICAL: 72-year-old female with lumbar radiculopathy and sacroiliitis TECHNIQUE: AP, lateral, lateral flexion-extension COMPARISON: None RESULTS: Counting reference: Anatomic Variant: None. L4-5 is considered the level of the iliac crest and assume there are 5 lumbar-type vertebrae. Mild levoscoliosis centered at L3. Osteophytes at L2/L3. Mild disc space narrowing at L2/L3 and moderate narrowing at L4/L5. 6.5 mm, grade 1 anterolisthesis of 4 on L5 that does not change with flexion-extension. No instability flexion-extension. Facet degenerative changes in the left at L2/L3 through L5/S1 on the right at L4/L5 DIVISION OF RADIOLOGY Provider, Petrona kwon [facility] - 08/24/2022 * * *Final Report* * * DATE OF EXAM: Aug 22 2022 10:30AM WOX 5231 - XR LUMBAR 4V AP/LAT/ FLEX/EXT / PROCEDURE REASON: multiple diagnoses * * * * Physician Interpretation * * * * EXAM: LUMBAR SPINE, 4 VIEWS CLINICAL: 72-year-old female with lumbar radiculopathy and sacroiliitis TECHNIQUE: AP, lateral, lateral flexion-extension COMPARISON: None RESULTS: Counting reference: Anatomic Variant: None. L4-5 is considered the level of the iliac crest and assume there are 5 lumbar-type vertebrae. Mild levoscoliosis centered at L3. Osteophytes at L2/L3. Mild disc space narrowing at L2/L3 and moderate narrowing at L4/L5. 6.5 mm, grade 1 anterolisthesis of 4 on L5 that does not change with flexion-extension. No instability flexion-extension. 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 LEVOSCOLIOSIS. Basting Cleaner: PSCB Transcribe Date/Time: Aug 24 2022 5:33P Dictated by : ROBIN KRAFT MD This examination was interpreted and the report reviewed and electronically signed by: ROBIN KRAFT MD on Aug 24 2022 5:36PM EST [facility] XR Lumbar spine Views W flex ion and W extensionOrdered By: Ccf Provider on 08-24-2022 [facility] XR Lumbar spine Views W flex ion and W extensionon 08-22-2022 Radiology Study observation (narrative) [facility] LIPID PANEL, NONFASTINGon Cholesterol [Mass/Vol] 183 mg/dL <200 mg/dL [facility] HDL Cholesterol, Nonfasting 46 mg/dL >39 mg/dL [facility] LDL Cholesterol, Nonfasting 92 mg/dL <100 mg/dL [facility] LDL/HDL Ratio, Nonfasting 2.00 mg/dL <2.54 mg/dL [facility] Non HDL Cholesterol, Nonfasting 137 mg/dL High <130 mg/dL [facility] Total Chol/HDL Ratio, Nonfasting 3.98 mg/dL <5.10 mg/dL [facility] Triglycerides, Nonfasting 224 mg/dL High <150 mg/dL [facility] VLDL Cholesterol, Nonfasting 45 mg/dL High <30 mg/dL [facility] CBC W Auto Differential pane l (Bld)on 11-21-2021 Basophils/100 WBC (Bld) 0.9 % [facility] Eosinophils/100 WBC (Bld) 1.7 % 1 - 3 % [facility] Erythrocyte distribution width (RBC) [Ratio] 15 % 11.7 - 15.0 % [facility] Hematocrit (Bld) [Volume fraction] 42.2 % Abnormal 33 - 42 % [facility] Hemoglobin (Bld) [Mass/Vol] 13.1 g/dL 12 - 16 g/dL [facility] IgA [Mass/Vol] 0.500 mg/dL [facility] Lymphocytes, Absolute 1.61 [facility] Lymphocytes/100 WBC (Bld) 25.4 % [facility] MCH 25.9 pG Abnormal 27 - 34 pG [facility] MCHC 31 % Abnormal 32 - 36 % [facility] MCV (RBC) [Entitic vol] 83.6 fL 80 - 100 fL [facility] Monocytes/100 WBC (Bld) 9.6 % [facility] MPV 9.9 % 7.3 - 11.1 % [facility] NEUTROPHILS ABSOLUTE 3.9 k/uL 1.4 - 7 .0 k/uL [facility] Neutrophils/100 WBC (Bld) 61.9 % [facility] Nucleated RBC (Bld) [#/Vol] 0 10*3/uL [facility] Platelets (Bld) [#/Vol] 289 10*3/uL 150 - 379 k/uL [facility] RBC (Bld) [#/Vol] 5.05 10*6/uL 4.2 - 5.4 M/uL [facility] RDW-SD 45.4 [facility] WBC (Bld) [#/Vol] 6.4 10*3/uL 4.0 - 11.0 K/uL [facility] US DVT LOWER RTon 10-13-2021 [facility] XR TIBIA FIBULA 2V AP/LAT RI GHTon 10-11-2021 [facility] XR Tibia and Fibula - right AP and Lateralon 10-11-2021 IMPRESSION: No radiographic evidence of acute osseous injury Basting Cleaner: ROSITA Transcribe Date/Time: Oct 11 2021 11:26A Dictated by : SONIA GREEN MD This examination was interpreted and the report reviewed and electronically signed by: SONIA GREEN MD on Oct 11 2021 11:27AM EST DIVISION OF RADIOLOGY * * *Final Report* * * DATE OF EXAM: Oct 11 2021 11:20AM WOX 5266 - XR TIBIA FIBULA 2V AP/LAT RT / PROCEDURE REASON: Pain in right lower leg * * * * Physician Interpretation * * * * CLINICAL INDICATION: Leg pain TECHNIQUE: AP and lateral radiographs of the right tibia/fibula COMPARISON: None FINDINGS: Osseous demineralization. No acute fracture or dislocation identified. Moderate medial compartmental joint space narrowing. Patellofemoral and medial compartmental osteophyte formation. DIVISION OF RADIOLOGY Provider, [facility] Fabian [facility] - 10/11/2021 * * *Final Report* * * DATE OF EXAM: Oct 11 2021 11:20AM WOX 5266 - XR TIBIA FIBULA 2V AP/LAT RT / PROCEDURE REASON: Pain in right lower leg * * * * Physician Interpretation * * * * CLINICAL INDICATION: Leg pain TECHNIQUE: AP and lateral radiographs of the right tibia/fibula COMPARISON: None FINDINGS: Osseous demineralization. No acute fracture or dislocation identified. Moderate medial compartmental joint space narrowing. Patellofemoral and medial compartmental osteophyte formation. IMPRESSION IMPRESSION: No radiographic evidence of acute osseous injury Basting Cleaner: [facility] Transcribe Date/Time: Oct 11 2021 11:26A Dictated by : SONIA GREEN MD This examination was interpreted and the report reviewed and electronically signed by: SONIA GREEN MD on Oct 11 2021 11:27AM EST [facility] Radiology Study observation (narrative) [facility] XR Tibia and Fibula - right AP and LateralOrdered By: Ccf Provider on 10-11-2021 [facility] XR Ankle - left AP and Later al and obliqueon 08-03-2020 IMPRESSION: Soft tissue swelling with no radiographic evidence of acute osseous injury. Basting Cleaner: [facility] Transcribe Date/Time: Aug 03 2020 9:59A Dictated by : SONIA GREEN MD This examination was interpreted and the report reviewed and electronically signed by: SONIA GREEN MD on Aug 03 2020 10:00AM [facility] DIVISION OF RADIOLOGY * * *Final Report* * * DATE OF EXAM: Aug 03 2020 9:58AM WOX 5298 - XR ANKLE 3V AP/LAT/OBL LT / PROCEDURE REASON: Injury of left ankle, initial encounter * * * * Physician Interpretation * * * * CLINICAL INDICATION: Trauma TECHNIQUE: 3 view radiographic study of the left ankle COMPARISON: Radiograph dated March 12, 2018 FINDINGS: Osseous demineralization. No acute fracture or dislocation identified. Tarsal degenerative changes with dorsal hypertrophic spurring. Plantar calcaneal enthesophyte. Soft tissue swelling. DIVISION OF RADIOLOGY Provider, [facility] Fabian kwon [facility] - 08/03/2020 * * *Final Report* * * DATE OF EXAM: Aug 03 2020 9:58AM WOX 5298 - XR ANKLE 3V AP/LAT/OBL LT / PROCEDURE REASON: Injury of left ankle, initial encounter * * * * Physician Interpretation * * * * CLINICAL INDICATION: Trauma TECHNIQUE: 3 view radiographic study of the left ankle COMPARISON: Radiograph dated March 12, 2018 FINDINGS: Osseous demineralization. No acute fracture or dislocation identified. Tarsal degenerative changes with dorsal hypertrophic spurring. Plantar calcaneal enthesophyte. Soft tissue swelling. IMPRESSION IMPRESSION: Soft tissue swelling with no radiographic evidence of acute osseous injury. Basting Cleaner: ROSITA Transcribe Date/Time: Aug 03 2020 9:59A Dictated by : SONIA GREEN MD This examination was interpreted and the report reviewed and electronically signed by: SONIA GREEN MD on Aug 03 2020 10:00AM [facility] Radiology Study observation (narrative) [facility] XR Ankle - left AP and Later al and obliqueOrdered By: Ccf Provider on 08-03-2020 [facility] XR Shoulder - left 3 Viewson 01-07-2020 IMPRESSION: Degenerative changes as discussed Basting Cleaner: [facility] Transcribe Date/Time: Jan 07 2020 9:32A Dictated by : YOEL ESTRADA DO This examination was interpreted and the report reviewed and electronically signed by: YOEL ESTRADA DO on Jan 07 2020 9:34AM [facility] DIVISION OF RADIOLOGY * * *Final Report* * * DATE OF EXAM: Jan 07 2020 9:10AM WOX 5252 - XR SHLDR >/=3V AP/LEXY AP/OTHR LT / PROCEDURE REASON: Acute pain of left shoulder * * * * Physician Interpretation * * * * LEFT shoulder EXAM DATE/TIME: 01/07/2020 9:10 AM HISTORY: 69 years old Clinical information: Acute pain of left shoulder left anterior shoulder pain that radiates lateral to posterior. twisted with a box and hit shoulder against a wall. Injured while carrying boxes TECHNIQUE: Images: XR SHLDR >/=3V AP/LEXY AP/OTHR LT Comparison: None. RESULT: Findings: Marked bony demineralization. Mild spurring along the inferior lateral margin of the glenoid and inferior medial humeral head is noted. Severe narrowing of the AC joint. No fractures or dislocations are seen. DIVISION OF RADIOLOGY Provider, [facility] - 01/07/2020 * * *Final Report* * * DATE OF EXAM: Jan 07 2020 9:10AM WOX 5252 - XR SHLDR >/=3V AP/LEXY AP/OTHR LT / PROCEDURE REASON: Acute pain of left shoulder * * * * Physician Interpretation * * * * LEFT shoulder EXAM DATE/TIME: 01/07/2020 9:10 AM HISTORY: 69 years old Clinical information: Acute pain of left shoulder left anterior shoulder pain that radiates lateral to posterior. twisted with a box and hit shoulder against a wall. Injured while carrying boxes TECHNIQUE: Images: XR SHLDR >/=3V AP/LEXY AP/OTHR LT Comparison: None. RESULT: Findings: Marked bony demineralization. Mild spurring along the inferior lateral margin of the glenoid and inferior medial humeral head is noted. Severe narrowing of the AC joint. No fractures or dislocations are seen. IMPRESSION IMPRESSION: Degenerative changes as discussed Basting Cleaner: ROSITA Transcribe Date/Time: Jan 07 2020 9:32A Dictated by : YOEL ESTRADA DO This examination was interpreted and the report reviewed and electronically signed by: YOEL ESTRADA DO on Jan 07 2020 9:34AM [facility] Radiology Study observation (narrative) [facility] XR Shoulder - left 3 ViewsOr dered By: Ccf Provider on 01-07-2020 [facility] Basic Metabolic Panlon 07-30 Anion gap molar conc 11 mmol/L Normal 9-18 [facility] Comment on above: Performed By: #### C BC, BMP ####[place] [phone] Calcium mass conc 9.1 mg/dL Normal 8.5-10.5 [facility] Comment on above: Performed By: #### C BC, BMP ####[phone] Chloride molar conc 104 mmol/L Normal 98-110 [facility] Comment on above: Performed By: #### C BC, BMP ####[place] [phone] CO2 molar conc 25 mmol/L Normal 23-32 [facility] Comment on above: Performed By: #### C BC, BMP ####[place] [phone] Creatinine mass conc 0.73 mg/dL Normal 0.70-1.40 [facility] Comment on above: Performed By: #### C BC, BMP ####[place] [phone] eGFR- Amer. >60 Normal >60 [facility] Comment on above: Performed By: #### C BC, BMP ####[place] [phone] GFR/1.73 sq M predicted among non-blacks MDRD vol rate/area (S/P/Bld) mL/min/{1.73_m2} Normal >60 [facility] Comment on above: Performed By: #### C BC, BMP ####[place] [phone] Glucose mass conc 91 mg/dL Normal 65-100 [place] [facility] Comment on above: Performed By: #### C BC, BMP ####[place] [phone] Potassium molar conc 4.4 mmol/L Normal 3.5-5.0 [facility] Comment on above: Result Comment: Revi ewed Performed By: #### C BC, BMP ####[place] [phone] Sodium molar conc 140 mmol/L Normal 132-148 [facility] Comment on above: Performed By: #### C BC, BMP ####[place] [phone] [place] [phone] Urea nitrogen mass conc 20 mg/dL Normal 8-25 [facility] Comment on above: Performed By: #### C BC, BMP ####[place] [phone] CASE MANAGEMon 07-30-2018 CASE MANAGEM HNO ID: [id number] Author: Mary Ann StrongRn) CHAPARRITA Cox Service: Care Management Author Type: Registered Nurse [...] willing and able to meet the patient's needs as recommended by the inter-professional team? No Caregiver Needed Patient's transition needs and plan for meeting these needs: yes Does the patient have an acute stroke diagnosis, or has the patient had a stroke during this admission? No HANDOFF COMMUNICATION: PCP per Kinde TRANSPORTATION ARRANGEMENTS: Car family Discharge Information Row Name Admission (Current) from 07/29/2018 in [facility] Medically cleared for discharge. Confirmed SOC with [facility] within 24-48 hours of discharge. Pt amenable to discharge plan. Family to transport. SIGNATURE: Mary Ann Cox RN PATIENT NAME: Romain Bailey DATE: July 30, 2018 TIME: 2:05 PM PAGER/CONTACT #: [phone] Normal [facility] CBCon 07-30-2018 Erythrocyte distribution width Ratio (RBC) 13.2 % Normal 11.5-15.0 [facility] Comment on above: Performed By: #### C BC, BMP ####[place] [phone] Hematocrit Volume Fraction (Bld) 40.5 % Normal 36.0-46.0 [facility] Comment on above: Performed By: #### C BC, BMP ####[place] [phone] Hemoglobin mass conc (Bld) 13.2 g/dL Normal 11.5-15.5 [facility] Comment on above: Performed By: #### C BC, BMP ####[place] [phone] MCH Entitic mass (RBC) 28.8 pG Normal 26.0-34.0 [facility] Comment on above: Performed By: #### C BC, BMP ####[place] [phone] MCHC mass conc (RBC) 32.6 g/dL Normal 30.5-36.0 [facility] Comment on above: Performed By: #### C WALTER, BMP ####[place] [phone] MCV Entitic volume (RBC) 88.4 fL Normal 80.0-100.0 [facility] Comment on above: Performed By: #### C BC, BMP ####[facility] [place], [place] [phone] Platelet mean volume Entitic volume (Bld) 10.0 fL Normal 9.0-12.7 [facility] Comment on above: Performed By: #### C BC, BMP ####[place] [phone] Platelets #/vol (Bld) 211 10*3/uL Normal 150-400 [facility] Comment on above: Performed By: #### C BC, BMP ####[facility] [place], [place] [phone] RBC #/vol (Bld) 4.58 10*6/uL Normal 3.90-5.20 [facility] Comment on above: Performed By: #### C WALTER, BMP ####[address] [phone] WBC #/vol (Bld) 5.52 10*3/uL Normal 3.70-11.00 [facility] Comment on above: Performed By: #### C WALTER, BMP ####[address] [phone] NURSING PROGon 07-30-2018 Protein mass conc HNO ID: [id number] Author: Marii StrongRn) CHAPARRITA Melgar Service: Nursing Author Type: Registered Nurse Type: Nursing Progress Note Filed: 07/30/2018 3:17 PM Note Text: Nursing Progress Note Patient Name: Romain Bailey Patient Location: Daily Note: Pt AOx3. C/o slight PARK. Brace on LLE. Speech clear AND coherent. This note was completed by: Marii Melgar RN [facility] Protein mass conc HNO ID: [id number] Author: Marii Melgar RN Service: Nursing Author Type: Registered Nurse Type: Nursing Progress Note Filed: 07/30/2018 3:15 PM Note Text: Nursing Progress Note Patient Name: Romain Bailey Patient Location: Daily Note: Pt discharged. Discharge, follow-up AND meds due instructions given AND explained. Prescription given AND explained. This note was completed by: Marii Melgar RN [facility] THERAPY NTon 07-30-2018 THERAPY NT HNO ID: [id number] Author: Bharti Roland (Pt) Randal Service: Physical Therapy Author Type: Physical Therapist Type: Therapy (PT/OT/Speech/Resp) Filed: 07/30/2018 11:08 AM Note Text: Physical Therapy Evaluation TIA r/o CVA SERVICE DATE: 07/30/2018 SERVICE TIME: 8643 to 1006 ROOM: [address] Recommended Discharge Disposition: Home Anticipated Discharge Needs: Physical Assist at Home Physical Assist at Home for: Cleaning;Laundry;Shoppi ng;Transportation Recommended Discharge Equipment: Cane PT Recommendations to Nursing: Ambulate without device;To bathroom;In halls;Transfer to/from chair;OOB for Meals;With assist of 1 person Device: No Device PT 6 Clicks Score: 23 Precautions/Activity Restrictions: Bed/Chair Alarm;Fall Risk Precaution/Activity Restriction Comments: up with assist, admit w/ slurred speech, ataxia ASSESSMENT : Patient admitted to the hospital for c/o of headache, blurry vision and slurred speech. Possible stroke like symptoms. Patient's impairments as related to Therapy include decreased strength/endurance, impaired balance, functional mobility and self care performance. Patient has adequate support and social structure for reasonably safe discharge home at current level. Patient Disposition at Start of Session: OOB in Chair;Call [facility] in Reach;Chair Alarm Patient Disposition at End of Session: OOB in Chair;Call [facility] in Reach;Chair Alarm Tolerance Limited By Fatigue Physical Therapy Problem List: Decreased Activity Tolerance;Functional Mobility Impairment Patient /Caregiver Goals: Go Home Goals for Plan of Care: PLAN: Treatment Frequency (times per week): Discontinue Therapy Services Reasons Therapy Services Discontinued: No skilled needs Plan of Care developed with: Patient TREATMENT INTERVENTIONS: Therapy Diagnosis: Reduced mobility-other Interventions Provided: Evaluation;Gait Training (93895) $ Evaluation-Low (32161) Billed Units: 1 unit Gait Training (11269) Treatment Minutes: 8 1 unit Skilled Intervention(s): Instruction in sit to stand technique with proper hand placement and body positioning at edge of bed/chair, Instruction in stand to sit technique with LE's touching chair/bed and reaching back for surface, Instruction in sequencing, gait pattern and Instruction in correction of gait deviations Total Timed Code Treatment Minutes: 8 Total Treatment Time (minutes): 23 SUBJECTIVE: Current Hospital Course: Chart reviewed; 68 year old female admit with c/o of headache, blurry vision , slurred speech and ataxia of the RUE. Reason for Physical Therapy Consult : TIA vs CVA Relevant Past Medical History: diverticulosis, GERD, HLD, HTN, IBS, migraines, obesity Patient Report: Patient pleasant and cooperative with treatment. Reports all symptoms have resolved except for headache. 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 OBJECTIVE: Mini Cog Score: 5 (07/29/18 0735) CURRENT FUNCTIONAL STATUS: Current Functional Mobility Assist Level Additional Information Rolling Supine to Sit Sit to Supine Scooting Modified Independent Sit to Stand Modified Independent Stand to Sit Modified Independent Bed to Chair Toilet/Commode Gait Stand By Assistance Gait Device: None Gait Distance (feet): 250 ft Stairs Curb Step Car Transfer Gait Deviations Right Lower Extremity: Heel strike during initial stance decreased;Push-off during terminal stance decreased;Knee flexion during stance increased;Foot clearance decreased;Step length decreased General Gait Deviations: Florina decreased;Step length decreased Balance: Dynamic Standing;Dynamic Sitting Dynamic Sitting Balance: Modified Independent Dynamic Standing Balance: Stand By Assistance Activity Tolerance: Standing Activity Standing Activity: transfers, gait, Mod 4 Item DGI Standing Activity Tolerance (in minutes): 8 JH-HLM: 8: Walk 250 feet or more Functional Performance Test Functional Performance Test: Modified 4-Item Dynamic Gait Index Modified Dynamic Gait Index Gait on level surface: 3 Gait with speed changes: 3 Horizontal head turns: 3 Vertical head turns: 3 Total Score: 12 Please see discipline specific clinical documentation flowsheet for complete details for this therapy evaluation/treatment. SIGNATURE: Bharti Tee PT PATIENT NAME: Romain Bailey DATE: July 30, 2018 TIME: 11:05 AM [facility] HNO ID: [id number] Author: Tayla StrongRtMyriam Boo Service: Radiology Author Type: Director Of Corporate Real Estate Type: [facility] Filed: 07/29/2018 12:09 PM Note Text: Radiology Service Progress Note PATIENT NAME: Romain Bailey DATE OF SERVICE: July 29, 2018 TIME: 12:08 PM PATIENT IDENTITY VERIFICATION COMPLETED USING TWO (2) METHODS: Patient confirmed name verbally and ID band matches.. PATIENT GENDER DATA: Female. status: : No status: NO. PATIENT RELEVANT IMPLANT DATA REVIEWED: Yes RADIOLOGY DEPARTMENT: MR; Exam(s) Completed: Head: Routine Brain PERIPHERAL IV DATA: Not applicable SIGNED BY: RT Osmar July 29, 2018 12:08 PM [facility] HNO ID: [id number] Author: MIGDALIA Mcarthur (Ct) Service: Radiology Author Type: Clinical Director Of Corporate Real Estate Type: [facility] Filed: 07/29/2018 12:03 AM Note Text: Radiology Service Progress Note DATE OF SERVICE: July 29, 2018 TIME: 12:03 AM PATIENT IDENTITY VERIFICATION COMPLETED USING TWO (2) METHODS: Patient confirmed name verbally and ID band [...] (Estimated GFR) Units of measure: mL/min/1.73 meters squared eGFR is derived from the reexpressed MDRD Study equation using the following parameters: serum creatinine, age, gender and race. The creatinine assay has been calibrated to be traceable to IDMS. An eGFR <60 mL/min/1.73m2 for >3 months is consistent with chronic kidney disease. Refer to KDOQI guidelines for clinical interpretation. In patients with unstable renal function, e.g. those with acute kidney injury, the eGFR may not accurately reflect actual GFR. eGFR- Date Value Ref Range Status 07/28/2018 >60 Final P.O.C.T. RESULTS: N/A July 29, 2018 TREATMENT: N/A PERIPHERAL IV DATA: Inpatient - refer to LDA documentation RADIOLOGY DEPARTMENT: CT; Exam(s) Completed: Brain , CTA Brain and CTA Neck SIGNATURE: Maame Bhat, MIGDALIA PATIENT NAME: Romain Bailey DATE: July 29, 2018 TIME: 12:03 AM Normal [facility] APTTon 07-29-2018 aPTT Coag time (Bld) 25.9 s Normal 23.0-32.4 [facility] Comment on above: Result Comment: Unfr actionated Heparin Therapeutic Ranges: Standard Heparin Nomogram: 53 to 78 seconds (anti-Xa level of 0.3 to 0.7 U/ml) Low Dose/ACS Nomogram: 49 to 67 seconds (anti-Xa level of 0.2 to 0.5 U/ml) Stroke Treatment Nomogram: 49 to 67 seconds (anti-Xa level of 0.2 to 0.5 U/ml) Note: The APTT therapeutic range has been determined for the current lot of laboratory APTT reagent in use throughout the [facility]. Performed By: #### C BC, PT, PTT, BMP ####[facility] [address] [place] [phone] Basic Metabolic Panlon 07-29 Anion gap molar conc 13 mmol/L Normal 9-18 [facility] Comment on above: Performed By: #### C BC, BMP #### [place] [address] #### HBA1C, LIPB #### [facility] [address] [place] [phone] Calcium mass conc 8.9 mg/dL Normal 8.5-10.5 [facility] Comment on above: Performed By: #### C BC, BMP #### [place] [address] #### HBA1C, LIPB #### [facility] [address] [place] [phone] Chloride molar conc 104 mmol/L Normal 98-110 [facility] Comment on above: Performed By: #### C BC, BMP #### [place] [phone] #### HBA1C, LIPB #### [facility] [address] [place] [phone] CO2 molar conc 25 mmol/L Normal 23-32 [facility] Comment on above: Performed By: #### C BC, BMP #### [place] [phone] #### HBA1C, LIPB #### [facility] [address] [place] [phone] Creatinine mass conc 0.62 mg/dL Low 0.70-1.40 [facility] Comment on above: Performed By: #### C BC, BMP #### [place] [phone] #### HBA1C, LIPB #### [facility] [address] [place] [phone] eGFR- Amer. >60 Normal >60 [facility] Comment on above: Performed By: #### C BC, BMP #### [place] [phone] #### HBA1C, LIPB #### [facility] [address] [place] [phone] GFR/1.73 sq M predicted among non-blacks MDRD vol rate/area (S/P/Bld) mL/min/{1.73_m2} Normal >60 [facility] Comment on above: Performed By: #### C BC, BMP #### [place] [phone] #### HBA1C, LIPB #### [facility] [address] [place] [phone] Glucose mass conc 88 mg/dL Normal 65-100 [facility] Comment on above: Performed By: #### C BC, BMP #### [place] [phone] #### HBA1C, LIPB #### [facility] [address] [place] [phone] Potassium molar conc 3.6 mmol/L Normal 3.5-5.0 [facility] Comment on above: Performed By: #### C BC, BMP #### [place] [phone] #### HBA1C, LIPB #### [place] [phone] Sodium molar conc 142 mmol/L Normal 132-148 [facility] Comment on above: Performed By: #### C BC, BMP #### [place] [phone] #### HBA1C, LIPB #### [place] [phone] Urea nitrogen mass conc 13 mg/dL Normal 8-25 [facility] Comment on above: Performed By: #### C BC, BMP #### [place] [phone] #### HBA1C, LIPB #### [place] [phone] Anion gap molar conc 9 mmol/L Normal 9-18 [facility] Comment on above: Performed By: #### C BC, PT, PTT, BMP ####[facility] [address] [place] [phone] Calcium mass conc 9.3 mg/dL Normal 8.5-10.2 [facility] Comment on above: Performed By: #### C BC, PT, PTT, BMP ####[facility] [address] [place] [phone] Chloride molar conc 105 mmol/L Normal 97-105 [facility] Comment on above: Performed By: #### C BC, PT, PTT, BMP ####[facility] [address] [place] [address] CO2 molar conc 28 mmol/L Normal 22-30 [facility] Comment on above: Performed By: #### C BC, PT, PTT, BMP ####[facility] [address] [place] [address] Creatinine mass conc 0.69 mg/dL Normal 0.58-0.96 [facility] Comment on above: Performed By: #### C BC, PT, PTT, BMP ####[facility] [address] [place] [address] eGFR- Amer. >60 Normal [facility] Comment on above: Performed By: #### C BC, PT, PTT, BMP ####[facility] [address] [place] [address] GFR/1.73 sq M predicted among non-blacks MDRD vol rate/area (S/P/Bld) mL/min/{1.73_m2} Normal [facility] Comment on above: Result Comment: eGFR (Estimated GFR) Units of measure: mL/min/1.73 meters squared eGFR is derived from the reexpressed MDRD Study equation using the following parameters: serum creatinine, age, gender and race. The creatinine assay has been calibrated to be traceable to IDMS. An eGFR <60 mL/min/1.73m2 for >3 months is consistent with chronic kidney disease. Refer to KDOQI guidelines for clinical interpretation. In patients with unstable renal function, e.g. those with acute kidney injury, the eGFR may not accurately reflect actual GFR. Performed By: #### C BC, PT, PTT, BMP ####[facility] [address] [place] [address] Glucose mass conc 81 mg/dL Normal 74-99 [facility] Comment on above: Result Comment: The [place] Diabetes Association (ADA) provides guidance for cutoff values for fasting glucose and random glucose. The ADA defines fasting as no caloric intake for at least 8 hours. Fasting plasma glucose results between 100 to 125 mg/dL indicate increased risk for diabetes (prediabetes). Fasting plasma glucose results greater than or equal to 126 mg/dL meet the criteria for diagnosis of diabetes. In the absence of unequivocal hyperglycemia, results should be confirmed by repeat testing. In a patient with classic symptoms of hyperglycemia or hyperglycemic crisis, random plasma glucose results greater than or equal to 200 mg/dL meet the criteria for diagnosis of diabetes. Reference: Standards of Medical Care in Diabetes 2016, [place] Diabetes Association. Diabetes Care. 2016.39(Suppl 1). Performed By: #### C BC, PT, PTT, BMP ####[facility] [address] [place] [address] Potassium molar conc 3.6 mmol/L Low 3.7-5.1 [facility] Comment on above: Performed By: #### C BC, PT, PTT, BMP ####[facility] [address] [place] [address] Sodium molar conc 142 mmol/L Normal 136-144 [facility] Comment on above: Performed By: #### C BC, PT, PTT, BMP ####[facility] [address] [place] [address] Urea nitrogen mass conc 17 mg/dL Normal 7-21 [facility] Comment on above: Performed By: #### C BC, PT, PTT, BMP ####[facility] [address] [place] [address] CASE MGT INIT Gama 2018 CASE MGT INIT BRE HNO ID: [id number] Author: Mary Ann StrongRn) CHAPARRITA Cox Service: Care Management Author Type: Registered Nurse Type: Care Mgt Initial Assessment Filed: 07/29/2018 4:28 PM Note Text: CARE MANAGEMENT: ASSESSMENT AND DISCHARGE PLAN SERVICE DATE: 07/29/2018 SERVICE TIME: 3:45 PM PRIMARY CARE PHYSICIAN: Erik Reynolds MD ADMISSION STATUS: Observation Needs Prior to Discharge: Home Care Order MEDICAL: Patient/Private Pilot Stated Goals: To have reduction in symptoms Health Insurance: [employer] PLUS [employer] Medicare Health Issues Impacting Discharge Plan: Newly diagnosed migraine Last Admission Date: none Is this Within the Past 30 days? No Advance Directive: Current Advance Directive: None Change Person Attempted to Assist with AD Completion: Yes Action: Patient Unwilling Health Literacy: 1. How often do you need to have someone help you when you read instructions, pamphlets, or other written material from your doctor or pharmacy? Never - 1 2. How confident are you filling out medical forms by yourself? Extremely - 1 If Patient scores > 3 on either question, the following interventions were put into place: Patient did not score > 3 FUNCTIONAL AND COGNITIVE/BEHAVIORAL PRIOR TO ADMISSION: Baseline Mental Status: Alert AND Oriented, Person, Place , Time and Situation Functional Status: Independent Does Patient Currently Receive Any Community Services or Home Care? None Equipment Prior to Admission: None Has the Patient Been in a Residential Facility in the Past 30 days? 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 No Caregiver Needed Patient's transition needs and plan for meeting these needs: yes Does the patient have an acute stroke diagnosis, or has the patient had a stroke during this admission? No Medication Adherence: I am convinced of the importance of my prescription medication: Agree completely - 0 I worry that my prescription medication will do more harm than good to me Disagree completely - 0 I feel financially burdened by my pjm-pw-mweeet expenses for my prescription medication: Disagree completely - 0 Patient is categorized as low risk < 2 Are you interested in bedside delivery of your medications? No Food Concerns: In the Last Month, Have You had Trouble Getting Food? No trouble getting food During the Last Month, Have You Worried Whether Your Food Would Run Out Before You Had Enough Money [...] drives. OT recs for Home OT, pt amenable. Given HHC list, referral placed per FOC, F2F in. Will have confirmed SOC on discharge. Family to transport. SIGNATURE: Mary Ann Cox RN PATIENT NAME: Romain Bailey DATE: July 29, 2018 TIME: 3:45 PM PAGER/CONTACT #: [phone] Normal [facility] CBCon 07-29-2018 Erythrocyte distribution width Ratio (RBC) 13.0 % Normal 11.5-15.0 [facility] Comment on above: Performed By: #### C BC, BMP #### [place] [address] #### HBA1C, LIPB #### [place] [phone] Hematocrit Volume Fraction (Bld) 39.6 % Normal 36.0-46.0 [facility] Comment on above: Performed By: #### C BC, BMP #### [place] [address] #### HBA1C, LIPB #### [place] [phone] Hemoglobin mass conc (Bld) 13.3 g/dL Normal 11.5-15.5 [facility] Comment on above: Performed By: #### C BC, BMP #### [place] [address] #### HBA1C, LIPB #### [facility] [address] [place], [place] [phone] MCH Entitic mass (RBC) 28.9 pG Normal 26.0-34.0 [facility] Comment on above: Performed By: #### C BC, BMP #### [address] #### HBA1C, LIPB #### [place] [phone] MCHC mass conc (RBC) 33.6 g/dL Normal 30.5-36.0 [facility] Comment on above: Performed By: #### C BC, BMP #### [place] [phone] #### HBA1C, LIPB #### [place] [phone] MCV Entitic volume (RBC) 85.9 fL Normal 80.0-100.0 [facility] Comment on above: Performed By: #### C BC, BMP #### [address] #### HBA1C, LIPB #### [place] [phone] Platelet mean volume Entitic volume (Bld) 9.9 fL Normal 9.0-12.7 [facility] Comment on above: Performed By: #### C BC, BMP #### [place] [address] #### HBA1C, LIPB #### [place] [phone] Platelets #/vol (Bld) 205 10*3/uL Normal 150-400 [facility] Comment on above: Performed By: #### C BC, BMP #### [place] [address] #### HBA1C, LIPB #### [phone] RBC #/vol (Bld) 4.61 10*6/uL Normal 3.90-5.20 [facility] Comment on above: Performed By: #### C BC, BMP #### [address] #### HBA1C, LIPB #### [phone] WBC #/vol (Bld) 5.06 10*3/uL Normal 3.70-11.00 [facility] Comment on above: Performed By: #### C BC, BMP #### [place] [address] [place] [address] #### HBA1C, LIPB #### [facility] [address] [place], [place] [address] Erythrocyte distribution width Ratio (RBC) 13.2 % Normal 11.5-15.0 [facility] Comment on above: Performed By: #### C BC, PT, PTT, BMP ####[facility] [address] [place] [address] Hematocrit Volume Fraction (Bld) 42.4 % Normal 36.0-46.0 [facility] Comment on above: Performed By: #### C BC, PT, PTT, BMP ####[facility] [address] [place] [address] Hemoglobin mass conc (Bld) 14.1 g/dL Normal 11.5-15.5 [facility] Comment on above: Performed By: #### C BC, PT, PTT, BMP ####[facility] [address] [place] [address] MCH Entitic mass (RBC) 29.0 pG Normal 26.0-34.0 [facility] Comment on above: Performed By: #### C BC, PT, PTT, BMP ####[facility] [address] [place] [address] MCHC mass conc (RBC) 33.3 g/dL Normal 30.5-36.0 [facility] Comment on above: Performed By: #### C BC, PT, PTT, BMP ####[facility] [id number] [place] [address] MCV Entitic volume (RBC) 87.1 fL Normal 80.0-100.0 [facility] Comment on above: Performed By: #### C BC, PT, PTT, BMP ####[facility] [id number] [place] [address] Platelet mean volume Entitic volume (Bld) 9.9 fL Normal 9.0-12.7 [facility] Comment on above: Performed By: #### C BC, PT, PTT, BMP ####[facility] [id number] [place] [address] Platelets #/vol (Bld) 236 10*3/uL Normal 150-400 [facility] Comment on above: Performed By: #### C BC, PT, PTT, BMP ####[facility] [id number] [place] [address] RBC #/vol (Bld) 4.87 10*6/uL Normal 3.90-5.20 [facility] Comment on above: Performed By: #### C BC, PT, PTT, BMP ####[facility] [address] [place] [address] WBC #/vol (Bld) 6.61 10*3/uL Normal 3.70-11.00 [facility] Comment on above: Performed By: #### C BC, PT, PTT, BMP ####[facility] [address] [place] [address] CONSULTon 07-29-2018 CONSULT HNO ID: [id number] Author: Nathalie Galvez Service: Neurology General Author Type: Physician Type: Consults Filed: 07/29/2018 10:38 AM Note Text: Patient seen and examined Chart reviewed Patient is 68 years old woman from [place] ,started having headache since as her migraine headache ,but on Sunday she felt clumsy on the right hand ,she was stuttering ,and felt imbalance while walking ,she didn't fall . Headache was still there severe throbbing with photophobia and phonophobia Previous admission to [facility] in June with the same symptoms During today exam she has dysmetria on right finger to nose and right arm drift She was afraid to walk because of imbalance Recommend Stroke work up as ordered by medical team Aspirin statin for stroke prevention Migraine treatment with magnesium 500 mg daily as preventive b2 100 mg twice a day [facility] CONSULT HNO ID: [id number] Author: Nathalie Galvez Service: Neurology General Author Type: Physician Type: Consults Filed: 07/29/2018 10:37 AM Note Text: INITIAL CONSULT NEURO STROKE SERVICE DATE: 07/29/2018 * PCP: Erik Reynolds MD REASON FOR STROKE EVALUATION: headache ,clumsiness Subjective HPI: Patient is 68 years old woman with migraine headache hypertension ,admitted because of stroke like symptoms with this episode of migraine presented to the hospital from [place] ED with c/o blurry vision, stuttering of speech and wobbly gait that started around 1 pm yesterday ,associated with headache since intermittently but never going away completely until yesterday morning when she started having excruciating headache Pre-admission Was patient on antithrombotic agent prior to admission: No Was patient on lipid lowering agent prior to admission: Statin Pre-morbid mRS: PAST MEDICAL HISTORY Diagnosis Date [...] file Social History Narrative 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 [employer]. 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 FAMILY HISTORY Problem Relation Age of Onset - None Mother from fall - Diabetes Father - Ischemic Heart Disease Father d. [place] - Ischemic Heart Disease Maternal Grandfather d. [place] while holding her at 4mo - Blindness Brother - Heart Attack Brother ALLERGIES Allergen Reactions - Adhesive Tape (Marilou* Rash - Bactrim Ds [Sulfame* Anaphylaxis Difficulty breathing, fever, chills - Bee Sting Anaphylaxis - Darvon [Propoxyphen* - Prednisone GI Upset MEDICATION Pre-admission Medications Prior to Admission: atorvastatin (LIPITOR) 20 mg tablet Take 1 tablet by mouth once daily. Disp: 90 tablet Rfl: 3 07/28/2018 at Unknown time SUMAtriptan (IMITREX) 50 mg tablet Take 1 tablet by mouth as needed (at onset of severe headache). May repeat in 2 hours if necessary. Disp: 6 tablet Rfl: 5 07/28/2018 at Unknown time fluticasone (FLONASE) 50 mcg/actuation nasal spray Use 2 Sprays in each nostril once daily. Disp: 1 Bottle Rfl: 07/28/2018 at Unknown time cycloSPORINE (RESTASIS) 0.05 % ophthalmic emulsion Use 1 Drop in both eyes twice daily. Both eyes. Disp: Rfl: 07/28/2018 at Unknown time loratadine (CLARITIN) 10 mg tablet Take 1 tablet by mouth once daily. Disp: 30 tablet Rfl: 07/28/2018 at Unknown time verapamil SR (CALAN SR, ISOPTIN SR) 240 mg CR tablet TAKE 1 TABLET BY MOUTH EVERYDAY AT BEDTIME Disp: 30 tablet Rfl: 07/28/2018 at Unknown time benzonatate (TESSALON PERLES) 100 mg capsule Take 2 capsules by mouth three times daily as needed. Disp: 30 capsule Rfl: 0 07/28/2018 at Unknown time fluticasone-salmeterol (ADVAIR DISKUS) 100-50 [...] hours as needed. Disp: 1 Inhaler Rfl: 07/28/2018 at Unknown time EPINEPHrine (AUVI-Q) 0.3 mg/0.3 mL auto-injector Inject 0.3 mL intramuscularly as needed. Disp: 2 Each Rfl: 07/28/2018 at Unknown time ammonium lactate (LAC-HYDRIN) 12 % lotion Apply 1 application to affected area as needed for Dry Skin (arms). Disp: 120 g Rfl: 2 07/28/2018 at Unknown time Nebulizer NEBULIZER FOR HOME USE. DX: J45.20 Disp: 1 Device Rfl: 0 07/28/2018 at Unknown time albuterol (PROVENTIL) 2.5 mg /3 mL (0.083 %) nebulizer solution Use 3 mL via nebulizer every 4 hours as needed for Wheezing/Shortness of Breath. Use over 5-15minutes. Disp: 25 Vial Rfl: 1 07/28/2018 at Unknown time GLUC PEREZ/CHONDRO PEREZ A/VIT C/MN (GLUCOSAMINE 1500 COMPLEX ORAL) Take 1 tablet by mouth once daily. Disp: Rfl: 07/28/2018 at Unknown time Current atorvastatin (LIPITOR) 20 mg tablet Take 1 tablet by mouth once daily. SUMAtriptan (IMITREX) 50 mg tablet Take 1 tablet by mouth as needed (at onset of severe headache). May repeat in 2 hours if necessary. fluticasone (FLONASE) 50 mcg/actuation nasal spray Use 2 Sprays in each nostril once daily. cycloSPORINE (RESTASIS) 0.05 % ophthalmic emulsion Use 1 Drop in both eyes twice daily. Both eyes. loratadine (CLARITIN) 10 mg tablet Take 1 tablet by mouth once daily. verapamil SR (CALAN SR, ISOPTIN SR) [...] lactate (LAC-HYDRIN) 12 % lotion Apply 1 application to affected area as needed for Dry Skin (arms). Nebulizer NEBULIZER FOR HOME USE. DX: J45.20 albuterol (PROVENTIL) 2.5 mg /3 mL (0.083 %) nebulizer solution Use 3 mL via nebulizer every 4 hours as needed for Wheezing/Shortness of Breath. Use over 5-15minutes. GLUC PEREZ/CHONDRO PEREZ A/VIT C/MN (GLUCOSAMINE 1500 COMPLEX ORAL) Take 1 tablet by mouth once daily. REVIEW OF SYSTEMS The following systems were reviewed with the patient, and are unremarkable other than as described below. SYSTEMIC: No fever, chills, or change in weight or appetite HEENT: No recent change in vision or hearing. GI: No recent nausea, vomiting or diarrhea. : No recent hematuria or dysuria. SKIN: No recent itching or eruption. PSYCH: No recent active anxiety or depression. HEMATOLOGY/ONCOLOGY: No recent diagnosis of bleeding or cancer. ENDOCRINE: No recent diagnosis of DM or thyroid disease. RHEUMATOLOGY: No recent active connective tissue disease. Objective PHYSICAL EXAM Vital Signs: BP 123/70 Pulse 69 Temp 36.6 ?C (97.9 ?F) (Temporal) Resp 18 SpO2 96% GENERAL: Awake/easily arousable. HEENT: Normocephalic/atraumati c, no lymphadenopathy, thyroid non-tender, without palpable masses/nodules or enlargement. RESPIRATORY: Normal respiratory effort. Clear to auscultation without rhonchi, rales, wheezing. CARDIOVASCULAR: RRR, normal S1, S2 auscultated, no murmur present. No lower extremity edema. GI: No hernia, masses, hepatosplenomegaly or lymphadenopathy. EXTREMITIES: No cyanosis, clubbing or edema. Pedal and radial pulses 2+ bilaterally. SKIN: Skin color, texture, turgor normal. No rashes or lesions. MUSCULOSKELETAL Spine range of motion normal. Muscular strength intact. Range of motion normal in hips, [...] 0 - normal, none detected (or visual loss alone) 0 Initial NIHSS: 2 (07/29/18 1025 : Nathalie Galvez) 2 MENTAL STATUS: Alert, oriented to person, place and time and Follows commands CRANIAL NERVES: PERRLA, Extraocular movements intact, Face symmetric, Hearing intact to finger rub bilaterally, Palate elevates symmetrically, Tongue protrudes midline and Shoulder shrug intact and symmetric MOTOR: Pronator drift right REFLEXES: UE and [...] Is the patient on VTE prophylaxis: Pharmacological prophylaxis Pharmacological intervention type: Lovenox 5. GLYCEMIC Control Medications: Not Diabetic 6. Stroke BP Goals: Permissive HTN (treat if >220/120) Stroke BP Control: BP well controlled 7. Stroke IVF/Nutrition: Diet 8. TEMPERATURE Control: Normothermic 9. Does the patient need THERAPY: Yes Therapy involvement: PT;OT Stroke Care and Prevention (personally reviewed by Nathalie Galvez MD): PROBLEM LIST: Active Problems: TIA (transient ischemic attack) POA: Yes Resolved Problems: * No resolved hospital problems. * Impression/Recommendati ons Romain Bailey is a 68 year old, female, ambidextrous patient. ? With migraine headache and stroke like symptoms as above ,including residual symptoms that remain the same (incoordination and imbalance,right arm drift ) Risk Factors Hypertension Y Coronary Artery Disease NA Diabetes NA Obesity Y Dyslipidemia NA Tobacco Use (Please Update Smoking History) NA Stroke NA Intracranial Aneurysm NA Stroke Mechanism PLAN ? Aspirin statin ? Stroke protocol and work up including echo ? Metabolic work up ? Stroke prevention ? No imitrex for headache because of increased risk of stroke in this patient ? Preventive headache medications as magnesium or b2 can be used IV tPA was not recommended to be given to the patient, refer to Exclusion Criteria as documented in Stroke Care Path. Imaging Ordered Today: MRI Brain ordered for focal neuro deficit. SIGNATURE: Nathalie Galvez MD PATIENT NAME: Romain Bailey DATE: July 29, 2018 TIME: 10:00 AM PAGER/CONTACT #: [facility] CT BRAIN ATTACK WO IVCONon 0 07-29-2018 CT BRAIN ATTACK WO IVCON * * *Final Report* * * DATE OF EXAM: Jul 28 2018 11:34PM [facility] [place] BRAIN [place] WO IVCON / PROCEDURE REASON: Focal neuro deficit, new, fixed, or worsening, 4.5 to 24 hours, NIHSS 6 or great * * * * Physician Interpretation * * * * EXAMINATION: CT BRAIN ATTACK WO IVCON CLINICAL HISTORY: Brain attack. TECHNIQUE: Routine CT of the brain without IV contrast. MQ: CTBA_4 CT Dose-Length Product (DLP): 636 mGy*cm CT Dose Reduction Employed: No dose reduction techniques were required COMPARISON: None available RESULT: Acute ischemic change: None. ASPECT Score = 10 Hemorrhage: No evidence of acute intracranial hemorrhage. ECASS Hemorrhagic Transformation Score = Not Applicable Mass Lesion / Mass Effect: There is no evidence of an intracranial mass or extraaxial fluid collection. No significant mass effect. Chronic change: Scattered patchy foci of low attenuation are present within white matter which is a nonspecific finding but likely represents mild microvascular ischemia. Parenchyma: There is no significant volume loss. The brain parenchyma is otherwise within normal limits for age. Ventricles: Normal caliber and morphology. Other: The visualized calvarium, skull base, orbits and extracranial soft tissues are normal. IMPRESSION: No acute intracranial abnormality. CRITICAL TEST/RESULTS: Notification initiated at 23:35. Communicated with Dr. Jamie Garcia on 07/28/2018 at 23:36. CR_1 Basting Cleaner: ROSITA Transcribe Date/Time: Jul 28 2018 11:35P Dictated by : FRANCESCA MCKEON MD This examination was interpreted and the report reviewed and electronically signed by: FRANCESCA MCKEON MD on Jul 28 2018 11:39PM EST [id number] CRITICAL!! [facility] CTA HEAD W IVCONon 9 CTA HEAD W IVCON * * *Final Report* * * * * * SEE BOTTOM OF REPORT FOR ADDENDED TEXT * * * DATE OF EXAM: Jul 28 2018 11:47PM [facility] [place]A HEAD W IVCON / PROCEDURE REASON: Focal neuro deficit, new, fixed, or worsening, 4.5 to 24 hours, NIHSS < 6, strok * * * * Physician Interpretation * * * * * * * * * * * * ORIGINAL REPORT * * * * * * * * EXAMINATION: CTA HEAD W IVCON, CTA NECK W IVCON CLINICAL HISTORY: Focal neuro deficit, new, fixed, or worsening, 4.5 to 24 hours, NIHSS < 6, stroke TECHNIQUE: Spiral high resolution axial images were obtained through the head, neck and superior mediastinum following bolus administration of intravenous contrast for CT angiography. 3D maximum intensity projection images were created, reviewed and archived [...] Hemorrhage: No evidence of acute intracranial hemorrhage. ECASS hemorrhagic transformation score: Not Applicable Spot Sign Presence: Not Applicable Spot Sign Number: Not Applicable Moderate mucosal thickening and wall thickening of the left maxillary sinus suggestive of chronic sinusitis. NECK: Soft tissues: The soft tissue planes are maintained throughout. No evidence of a soft tissue mass in the neck or superior mediastinum. No significant lymphadenopathy is seen. Spine: Reversal of the cervical lordosis centered at C5-C6. Vertebral body alignment is otherwise unremarkable. Moderate degenerative changes are present. Lung apices: The visualized lung apices are clear. CT ARTERIOGRAM: Extracranial Circulation: Aortic Arch: There is a normal branching pattern from the aortic arch.. There is no significant stenosis in the proximal brachiocephalic vessels. Carotid Stenosis: Right Common: Mildly degraded by motion proximally without apparent narrowing. Right Internal Carotid Plaque: No significant plaque formation. Right Internal Carotid Stenosis (% by NASCET Criteria): 0% Left Common: Partially obscured by streak artifact from the contrast bolus without apparent narrowing otherwise. Left Internal Carotid Plaque: Minimal plaque formation at bifurcation. Left Internal Carotid Stenosis (% by NASCET Criteria): 0% Cervical Vertebral Arteries: Patency: Bilateral Dominance: Codominant Intracranial Circulation: Anterior Circulation: Bilateral intracranial ICAs, ACAs and MCAs are patent. No hemodynamically significant stenosis. No aneurysm. Vertebrobasilar Circulation: Bilateral posterior cerebral arteries and intradural vertebral basilar arteries are patent. Patent proximal SCAs. Prominent left and diminutive right posterior inferior cerebellar arteries. No hemodynamically significant stenosis. No aneurysm. Major deep and cortical draining veins and dural venous sinuses show typical contrast enhancement pattern. No focal [...] inferior margin of the distal ophthalmic segment of the right ICA (series 4, image 290). Focal 2 mm region of ectasia along the posterior margin of the communicating segment of the right ICA (series 4, image 297). Basting Cleaner[facility] Transcribe Date/Time: Jul 29 2018 1:01A Dictated by : FRANCESCA MCKEON MD This examination was interpreted and the report reviewed and electronically signed by: FRANCESCA MCKEON MD on Jul 29 2018 12:37AM EST This document has been addended by: FRANCESCA MCKEON MD on Jul 29 2018 1:09AM EST [id number] [facility] CTA NECK W IVCONon 9 CTA NECK W IVCON * * *Final Report* * * * * * SEE BOTTOM OF REPORT FOR ADDENDED TEXT * * * DATE OF EXAM: Jul 28 2018 11:47PM [facility] [place] CTA NECK W IVCON / PROCEDURE REASON: Focal neuro deficit, new, fixed, or worsening, 4.5 to 24 hours, NIHSS < 6, strok * * * * Physician Interpretation * * * * * * * * * * * * ORIGINAL REPORT * * * * * * * * EXAMINATION: CTA HEAD W IVCON, CTA NECK W IVCON CLINICAL HISTORY: Focal neuro deficit, new, fixed, or worsening, 4.5 to 24 hours, NIHSS < 6, stroke TECHNIQUE: Spiral high resolution axial images were obtained through the head, neck and superior mediastinum following bolus administration of intravenous contrast for CT angiography. 3D maximum intensity projection images were created, reviewed and archived [...] Hemorrhage: No evidence of acute intracranial hemorrhage. ECASS hemorrhagic transformation score: Not Applicable Spot Sign Presence: Not Applicable Spot Sign Number: Not Applicable Moderate mucosal thickening and wall thickening of the left maxillary sinus suggestive of chronic sinusitis. NECK: Soft tissues: The soft tissue planes are maintained throughout. No evidence of a soft tissue mass in the neck or superior mediastinum. No significant lymphadenopathy is seen. Spine: Reversal of the cervical lordosis centered at C5-C6. Vertebral body alignment is otherwise unremarkable. Moderate degenerative changes are present. Lung apices: The visualized lung apices are clear. CT ARTERIOGRAM: Extracranial Circulation: Aortic Arch: There is a normal branching pattern from the aortic arch.. There is no significant stenosis in the proximal brachiocephalic vessels. Carotid Stenosis: Right Common: Mildly degraded by motion proximally without apparent narrowing. Right Internal Carotid Plaque: No significant plaque formation. Right Internal Carotid Stenosis (% by NASCET Criteria): 0% Left Common: Partially obscured by streak artifact from the contrast bolus without apparent narrowing otherwise. Left Internal Carotid Plaque: Minimal plaque formation at bifurcation. Left Internal Carotid Stenosis (% by NASCET Criteria): 0% Cervical Vertebral Arteries: Patency: Bilateral Dominance: Codominant Intracranial Circulation: Anterior Circulation: Bilateral intracranial ICAs, ACAs and MCAs are patent. No hemodynamically significant stenosis. No aneurysm. Vertebrobasilar Circulation: Bilateral posterior cerebral arteries and intradural vertebral basilar arteries are patent. Patent proximal SCAs. Prominent left and diminutive right posterior inferior cerebellar arteries. No hemodynamically significant stenosis. No aneurysm. Major deep and cortical draining veins and dural venous sinuses show typical contrast enhancement pattern. No focal [...] inferior margin of the distal ophthalmic segment of the right ICA (series 4, image 290). Focal 2 mm region of ectasia along the posterior margin of the communicating segment of the right ICA (series 4, image 297). Basting Cleaner: PSCB Transcribe Date/Time: Jul 29 2018 1:01A Dictated by : FRANCESCA MCKEON MD This examination was interpreted and the report reviewed and electronically signed by: FRANCESCA MCKEON MD on Jul 29 2018 12:37AM EST This document has been addended by: FRANCESCA MCKEON MD on Jul 29 2018 1:09AM EST [id number] [facility] ECG COMPLETEon 07-29-2018 ECG COMPLETE NAME : ROMAIN BAILEY PID : [id number] : 1950 Gender : Female Race : ORD : [id number] Procedure Date : Jul 28 2018 23:04:19 Edit Date : Aug 05 2018 12:36:16 Diagnosis:NORMAL SINUS RHYTHM NORMAL ECG agree - EF Garcia Confirmed by Denisse COOK, NA Ryan ([id number]), publication editor SHAWN GARZA ([id number]) on 08/05/2018 12:32:26 PM Ventricular Rate : 60 BPM Atrial Rate : 60 BPM P-R Interval : 158 ms QRS Duration : 72 ms Q-T Interval : 462 ms QTC Calculation(Bezet) : 462 ms P [place] : 91 degrees R [place] : 18 degrees T [place] : 38 degrees Test Reason : Chest Pain Location : 1 : ER 2 Overread By : Denisse COOK,NA Ryan Edited By : SHAWN GARZA Referred By : , Acquired by : LAN, [facility] ED NOTEon 07-29-2018 ED NOTE HNO ID: [id number] Author: Riana Corona) CHAPARRITA Pappas Service: ? Author Type: Registered Nurse Type: ED Notes Filed: 07/29/2018 2:44 AM Note Text: report given to [facility] ED NOTE HNO ID: [id number] Author: Riana StrongRn) CHAPARRITA Pappas Service: ? Author Type: Registered Nurse Type: ED Notes Filed: 07/29/2018 2:10 AM Note Text: dr garcia in room to update pt on plan of care. [facility] ED NOTE HNO ID: [id number] Author: Riana StrongRn) CHAPARRITA Pappas Service: ? Author Type: Registered Nurse Type: ED Notes Filed: 07/28/2018 11:50 PM Note Text: Patient returned to the Emergency Department. [facility] ED NOTE HNO ID: [id number] Author: Riaan StrongRn) CHAPARRITA Pappas Service: ? Author Type: Registered Nurse Type: ED Notes Filed: 07/28/2018 11:33 PM Note Text: Patient transported to nd with Nurse and Tech. [facility] ED NOTE HNO ID: [id number] Author: Riana StrongRn) CHAPARRITA Pappas Service: ? Author Type: Registered Nurse Type: ED Notes Filed: 07/29/2018 12:14 AM Note Text: pt made a stroke alert by dr. Garcia [facility] ED NOTE HNO ID: [id number] Author: Riana StrongRn) CHAPARRITA Pappas Service: ? Author Type: Registered Nurse Type: ED Notes Filed: 07/28/2018 11:20 PM Note Text: dr garcia at bedside to see pt [facility] ED NOTE HNO ID: [id number] Author: Antonia StrongRnRosie Hernandez RN Service: ? 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 Author Type: Physician Type: ED Provider Notes Filed: 07/29/2018 2:11 AM Note Text: ED Provider Note Patient Name: Romain Bailey SERVICE DATE: 07/28/18 History Patient presents with: Headache Blurry Vision Both Eyes: started at 1300 intermittent Slurred Speech: pt said she had stuttering and difficulty finding words started at 1300 intermittent at this time Patient complains of headache, ataxia, some difficulty forming speech earlier, some right upper extremity coordination problem, onset at 1300 today while at work. She states her ataxia got a little worse when she got off work around 2200. She has a history of hospitalization at [facility] a month ago, when she was found on MRA to have . 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 Otherwise, negative study. She had some ataxia and headache at that time. She states she had similar symptoms then. She states today, at work, she felt like she was having trouble forming words, but could still function at work, but her coworkers noticed she was having some truncal ataxia, and she was having trouble making change using her right upper extremity. [...] Father - Ischemic Heart Disease Father d. [place] - Ischemic Heart Disease Maternal Grandfather d. [place] while holding her at 4mo - Blindness [...] Cardiovascular: Normal rate, regular rhythm, normal heart sounds and intact distal pulses. Pulmonary/Chest: Effort normal and breath sounds normal. Abdominal: Soft. She exhibits no distension and no mass. There is no tenderness. There is no rebound and no guarding. Musculoskeletal: Normal range of motion. Neurological: She is alert and oriented to person, place, and time. Skin: Skin is warm and dry. Capillary refill takes less than 2 seconds. Psychiatric: She has a normal mood and affect. Her behavior is normal. Judgment and thought content normal. Nursing note and vitals reviewed. Diagnostic Testing ED Labs Ordered and Reviewed BASIC METABOLIC PNL - Abnormal; Notable for the following components: Result Value Ref Range Potassium 3.6 (*) [...] PNL - Abnormal; Notable for the following components: Result Value Potassium 3.6 (*) All other [...] DATE OF EXAM: Jul 28 2018 11:47PM [facility] [place]A HEAD W IVCON / PROCEDURE REASON: Focal neuro deficit, new, fixed, or worsening, 4.5 to 24 hours, NIHSS < 6, strok * * * * Physician Interpretation * * * * * * * * * * * * ORIGINAL REPORT * * * * * * * * EXAMINATION: CTA HEAD W IVCON, CTA NECK W IVCON CLINICAL HISTORY: Focal neuro deficit, new, fixed, or worsening, 4.5 to 24 hours, NIHSS < 6, stroke TECHNIQUE: Spiral high resolution axial images were obtained through the head, neck and superior mediastinum following bolus administration of intravenous contrast for CT angiography. 3D maximum intensity projection images were created, reviewed and archived [...] Hemorrhage: No evidence of acute intracranial hemorrhage. ECASS hemorrhagic transformation score: Not Applicable Spot Sign Presence: Not Applicable Spot Sign Number: Not Applicable Moderate mucosal thickening and wall thickening of the left maxillary sinus suggestive of chronic sinusitis. NECK: Soft tissues: The soft tissue planes are maintained throughout. No evidence of a soft tissue mass in the neck or superior mediastinum. No significant lymphadenopathy is seen. Spine: Reversal of the cervical lordosis centered at C5-C6. Vertebral body alignment is otherwise unremarkable. Moderate degenerative changes are present. Lung apices: The visualized lung apices are clear. CT ARTERIOGRAM: Extracranial Circulation: Aortic Arch: There is a normal branching pattern from the aortic arch.. There is no significant stenosis in the proximal brachiocephalic vessels. Carotid Stenosis: Right Common: Mildly degraded by motion proximally without apparent narrowing. Right Internal Carotid Plaque: No significant plaque formation. Right Internal Carotid Stenosis (% by NASCET Criteria): 0% Left Common: Partially obscured by streak artifact from the contrast bolus without apparent narrowing otherwise. Left Internal Carotid Plaque: Minimal plaque formation at bifurcation. Left Internal Carotid Stenosis (% by NASCET Criteria): 0% Cervical Vertebral Arteries: Patency: Bilateral Dominance: Codominant Intracranial Circulation: Anterior Circulation: Bilateral intracranial ICAs, ACAs and MCAs are patent. No hemodynamically significant stenosis. No aneurysm. Vertebrobasilar Circulation: Bilateral posterior cerebral arteries and intradural vertebral basilar arteries are patent. Patent proximal SCAs. Prominent left and diminutive right posterior inferior cerebellar arteries. No hemodynamically significant stenosis. No aneurysm. Major deep and cortical draining veins and dural venous sinuses show typical contrast enhancement pattern. No focal [...] inferior margin of the distal ophthalmic segment of the right ICA (series 4, image 290). Focal 2 mm region of ectasia along the posterior margin of the communicating segment of the right ICA (series 4, image 297). Basting Cleaner: ROSITA Transcribe Date/Time: Jul 29 2018 1:01A [...] and extracranial circulations. Chronic left maxillary sinusitis. Basting Cleaner: [facility] Transcribe Date/Time: Jul 28 2018 11:58P Dictated [...] DATE OF EXAM: Jul 28 2018 11:47PM [facility] [place] CTA NECK W IVCON / PROCEDURE REASON: Focal neuro deficit, new, fixed, or worsening, 4.5 to 24 hours, NIHSS < 6, strok * * * * Physician Interpretation * * * * * * * * * * * * ORIGINAL REPORT * * * * * * * * EXAMINATION: CTA HEAD W IVCON, CTA NECK W IVCON CLINICAL HISTORY: Focal neuro deficit, new, fixed, or worsening, 4.5 to 24 hours, NIHSS < 6, stroke TECHNIQUE: Spiral high resolution axial images were obtained through the head, neck and superior mediastinum following bolus administration of intravenous contrast for CT angiography. 3D maximum intensity projection images were created, reviewed and archived [...] Hemorrhage: No evidence of acute intracranial hemorrhage. ECASS hemorrhagic transformation score: Not Applicable Spot Sign Presence: Not Applicable Spot Sign Number: Not Applicable Moderate mucosal thickening and wall thickening of the left maxillary sinus suggestive of chronic sinusitis. NECK: Soft tissues: The soft tissue planes are maintained throughout. No evidence of a soft tissue mass in the neck or superior mediastinum. No significant lymphadenopathy is seen. Spine: Reversal of the cervical lordosis centered at C5-C6. Vertebral body alignment is otherwise unremarkable. Moderate degenerative changes are present. Lung apices: The visualized lung apices are clear. CT ARTERIOGRAM: Extracranial Circulation: Aortic Arch: There is a normal branching pattern from the aortic arch.. There is no significant stenosis in the proximal brachiocephalic vessels. Carotid Stenosis: Right Common: Mildly degraded by motion proximally without apparent narrowing. Right Internal Carotid Plaque: No significant plaque formation. Right Internal Carotid Stenosis (% by NASCET Criteria): 0% Left Common: Partially obscured by streak artifact from the contrast bolus without apparent narrowing otherwise. Left Internal Carotid Plaque: Minimal plaque formation at bifurcation. Left Internal Carotid Stenosis (% by NASCET Criteria): 0% Cervical Vertebral Arteries: Patency: Bilateral Dominance: Codominant Intracranial Circulation: Anterior Circulation: Bilateral intracranial ICAs, ACAs and MCAs are patent. No hemodynamically significant stenosis. No aneurysm. Vertebrobasilar Circulation: Bilateral posterior cerebral arteries and intradural vertebral basilar arteries are patent. Patent proximal SCAs. Prominent left and diminutive right posterior inferior cerebellar arteries. No hemodynamically significant stenosis. No aneurysm. Major deep and cortical draining veins and dural venous sinuses show typical contrast enhancement pattern. No focal [...] inferior margin of the distal ophthalmic segment of the right ICA (series 4, image 290). Focal 2 mm region of ectasia along the posterior margin of the communicating segment of the right ICA (series 4, image 297). Basting Cleaner: [facility] Transcribe Date/Time: Jul 29 2018 1:01A Dictated [...] and extracranial circulations. Chronic left maxillary sinusitis. [facility] Transcribe Date/Time: Jul 28 2018 11:58P Dictated by : KIMBERLY HAMMER MD This examination was interpreted and the report reviewed and electronically signed by: FRANCESCA MCKEON MD on Jul 29 2018 12:37AM EST CT BRAIN ATTACK WO IVCON Final Result Abnormal IMPRESSION: No acute intracranial abnormality. CRITICAL TEST/RESULTS: Notification initiated at 23:35. Communicated with Dr. Jamie Garcia on 07/28/2018 at 23:36. CR_1 Basting Cleaner: [facility] Transcribe Date/Time: Jul 28 2018 11:35P Dictated by : FRANCESCA MCKEON MD This examination was interpreted and the report reviewed and electronically signed by: FRANCESCA MCKEON MD on Jul 28 2018 11:39PM EST A consult was requested and obtained from small business consultant(s) telestroke at [facility] Dr Viraj mackay. The small business consultant made the following conclusions/recommendat ions: TPA not indicated, outside time window, history of recent diagnosis 2mm ICA aneurysm; admit to telemetry observation, neurology consult; will transfer to [facility] to do this. The case was discussed with the admitting physician. Medical Decision Making: Patient presents with truncal ataxia, past pointing right upper extremity, headache; similar presentation a month ago, felt to be complex migraine, but found to have small ICA aneurysm on MRA. Currently, she does have almost the exact same presentation; she possibly could have TIA, or posterior circulation stroke in evolution, possibly complex migraine, but not as likely in her age group and her history; possible complication of her ICA aneurysm also; will admit to observation at [facility] to get neurology consult. The attending who evaluated and managed this patient was Jamie Garcia . Plan: The patient was transferred to [facility] for observation telemetry, neurology consult Jamie Garcia MD Clinical Impressions as of Jul 29 210 Truncal ataxia Headache disorder MDM / Disposition / Plan MDM SIGNATURE: MD Jamie Garcia MD 07/29/18211 Normal [facility] HISTORY PHYSICALon HISTORY PHYSICAL HNO ID: [id number] Author: Reilly Majano Service: Hospital Medicine Author Type: Physician Type: HANDP Filed: 07/29/2018 5:39 AM Note Text: DEPARTMENT OF HOSPITAL MEDICINE HISTORY AND PHYSICAL EXAM SERVICE DATE: 07/29/2018 SERVICE TIME: 4:38 AM Primary Care Physician: Erik Reynolds MD Subjective CHIEF COMPLAINT: BLURRY VISION, DYSARTHRIA AND TRUNCAL ATAXIA HPI: This is a 68 year old female who presents with PMH significant for mild persistent asthma (on Flonase, albuterol as needed and Advair Diskus), HTN (on verapamil), HLD (on Lipitor 20 mg), migraine (on Imitrex) and IBS who presented to the hospital from [place] ED with c/o blurry vision, stuttering of speech and wobbly gait that started around 1 pm yesterday. according to the patient she was in her usual state of health until yesterday morning when she started having excruciating 8/10 severity sharp pain encircling both eyes, alleviated with tylenol, aggravated with light and associated with blurry vision. This headache was different from her usual headaches which are mostly on the posterior side of the brain. Around 1 pm she started noticing some stuttering of the speech as well which was noticed by the people around her as well. This was accompanied with some truncal ataxia as well as she swayed towards her right side. Her co worker accompanied her to the car and she drove home. Her relatives noticed her dysarthria to be getting worse and finally decided to come to the ED. Denies any swallowing problems, facial droop, loss of sensation, numbness/tingling, loss of motor strength and loss of vision. No family or personal history of stroke. Never smoked, drank consistently excessive amounts of alcohol or did any recreational drug abuse. She reports that her symptoms have already been improving except for dysarthria. ED Course: Upon arrival to the [place] ED her vitals were: BP 160/72 Pulse 66 Temp (Src) 98.1 (Oral) Resp 18 Ht 5' 6 (1.68m) Wt 174 lb (78.9kg) SpO2 95% BMI 28.10 kg/(m2). O2 Therapy: Room Air CBC and CMP were unremarkable. Telestroke was taken on board and neuroimaging with CT kate and head and neck was done, but all the imaging turned out to be negative. She was out of TPA window anyway and was found to have a 2 mm ICA aneurysm on MRI 3 weeks back which was done due to severe headache. Subsequently she was transferred to [facility] for further monitoring. PAST MEDICAL HISTORY Diagnosis Date - Arthropathy, unspecified, site unspecified - Asthma - Back pain - Colon polyps 2013 - Diverticulitis 2000 - Environmental allergies - GERD (gastroesophageal reflux disease) - Hyperlipidemia lifestyle controlled - Hypertension - IBS (irritable bowel syndrome) - Migraine - Obesity PAST SURGICAL HISTORY Procedure Laterality Date - [facility] Colonoscopy - COLONOSCOPY AND POLYPECTOMY [...] Father - Ischemic Heart Disease Father d. [place] - Ischemic Heart Disease Maternal Grandfather d. [place] while holding her at 4mo - Blindness Brother - Heart Attack Brother Social History Tobacco Use - Smoking status: Never Smoker - Smokeless tobacco: Never Used Substance Use Topics - Alcohol use: No - Drug use: No MEDICATIONS: Reviewed Medications Prior to Admission: atorvastatin (LIPITOR) 20 mg tablet Take 1 tablet by mouth once daily. Disp: 90 tablet Rfl: 3 07/28/2018 at Unknown time SUMAtriptan (IMITREX) 50 mg tablet Take 1 tablet by mouth as needed (at onset of severe headache). May repeat in 2 hours if necessary. Disp: 6 tablet Rfl: 5 07/28/2018 at Unknown time fluticasone (FLONASE) 50 mcg/actuation nasal spray Use 2 Sprays in each nostril once daily. Disp: 1 Bottle Rfl: 07/28/2018 at Unknown time cycloSPORINE (RESTASIS) 0.05 % ophthalmic emulsion Use 1 Drop in both eyes twice daily. Both eyes. Disp: Rfl: 07/28/2018 at Unknown time loratadine (CLARITIN) 10 mg tablet Take 1 tablet by mouth once daily. Disp: 30 tablet Rfl: 11 07/28/2018 at Unknown time verapamil SR (CALAN SR, ISOPTIN SR) 240 mg CR tablet TAKE 1 TABLET BY MOUTH EVERYDAY AT BEDTIME Disp: 30 tablet Rfl: 07/28/2018 at Unknown time benzonatate (TESSALON PERLES) 100 mg capsule Take 2 capsules by mouth three times daily as needed. Disp: 30 capsule Rfl: 0 07/28/2018 at Unknown time fluticasone-salmeterol (ADVAIR DISKUS) 100-50 [...] hours as needed. Disp: 1 Inhaler Rfl: 07/28/2018 at Unknown time EPINEPHrine (AUVI-Q) 0.3 mg/0.3 mL auto-injector Inject 0.3 mL intramuscularly as needed. Disp: 2 Each Rfl: 5 07/28/2018 at Unknown time ammonium lactate (LAC-HYDRIN) 12 % lotion Apply 1 application to affected area as needed for Dry Skin (arms). Disp: 120 g Rfl: 2 07/28/2018 at Unknown time Nebulizer NEBULIZER FOR HOME USE. DX: J45.20 Disp: 1 Device Rfl: 0 07/28/2018 at Unknown time albuterol (PROVENTIL) 2.5 mg /3 mL (0.083 %) nebulizer solution Use 3 mL via nebulizer every 4 hours as needed for Wheezing/Shortness of Breath. Use over 5-15minutes. Disp: 25 Vial Rfl: 1 07/28/2018 at Unknown time GLUC PEREZ/CHONDRO PEREZ A/VIT C/MN (GLUCOSAMINE 1500 COMPLEX ORAL) Take 1 tablet by mouth once daily. Disp: Rfl: 07/28/2018 at Unknown time ALLERGIES Allergen Reactions - Adhesive Tape (Marilou* Rash - Bactrim Ds [Sulfame* Anaphylaxis Difficulty breathing, fever, chills - Bee Sting Anaphylaxis - Darvon [Propoxyphen* - Prednisone GI Upset REVIEW OF SYSTEM: GENERAL: No weight loss, malaise or fevers HEENT: Negative for frequent or significant headaches, No changes in hearing or vision, no nose bleeds or other nasal problems NECK: Negative for lumps, goiter, pain and significant neck swelling RESPIRATORY: Negative for cough, hemoptysis, wheezing, COPD, dyspnea or shortness of breath CARDIOVASCULAR: Negative for chest pain, leg swelling, hypertension, CHF or palpitations GI: No nausea, vomiting, or diarrhea NEURO: Positive for headache, dysarthria, truncal ataxia and blurry vision. Objective PHYSICAL EXAM: BP 155/71 Pulse 62 Temp (Src) 97.5 (Oral) Resp 16 SpO2 97% O2 Therapy: Room Air Physical Exam Performed: GENERAL: Alert, no distress, cooperative LUNGS: Lungs clear to auscultation, Good diaphragmatic excursion CARDIAC: Normal S1 and S2; no rubs, murmurs, or gallops ABDOMEN: Abdomen soft, non-tender, BS normal, No masses or organomegaly NEURO: Unable to perform gait assessment since patient feels right now she wont be able to do it. Sensation grossly intact, Cranial nerves II-XII intact NIHSS: 1(a). Mental Status - [...] Peripheral 07/29/18 0426 Admission to Hospital Left Antecubital 20 Gauge less than 1 day DATA: Diagnostic tests reviewed for today's visit: Most recent labs and imaging results. Assessment/Plan Active Problems: Neurological: TIA (transient ischemic attack) vs Acute stroke: Patient out of TPA window and incidental finding of right ICA aneurysm. Current NIHSS score of 1 for mild dysarthria. Neuroimaging till now negative. MRI brain w/o contrast. High intensity statin with Lipitor 40 mg. Aspirin 325 mg started. Bedside swallow passed so patient started on heart healthy diet. ECHO ordered for valvular abnormalities. On telemetry. Neurology on board. Tylenol for severe headaches and Imitrex for breakthrough headaches. Cardiovascular: Verapamil held for now to allow permissive hypertension. Awaiting results of MRI after which verapamil can be resumed. High intensity statin to be continued. Respiratory: Mild persistent Asthma: <2 per month day time and night time awakenings with very infrequent usage of albuterol and no limitation in [...] 07/29/18 0415 vte non-pharmacologic prophylaxis - none indicated (me,oh) VTE Prophylaxis: VTE prophylaxis appropriate Disposition: to be decided. Plan of care discussed with: Provider, RN, Patient SIGNATURE: Bairon Zapien MD PATIENT NAME: Romain Bailey DATE: July 29, 2018 TIME: 4:38 AM PAGER/CONTACT #: [id number] etx [phone] I have seen and evaluated the patient and discussed the case with the resident physician. I agree with the assessment and plan as documented in the resident?s note. 68 years old female with h/o HTN, HLD, asthma, GERD, migraine presented to [place] ED with complain of difficulty finding words, headache imbalance and blurry vision started around 1PM yesterday, which worsen around 10PM. Patient had similar presentation on 07/02 to [place] ED, work up did not reveal any strok but noted to have incidental finding of ICA 2mm aneurysm. Telestroke team notified. NIHHS-1. CT head show no acute intracranial process and CTA show no large vesses occlusion/stenosis. No tPA as risk outweight benefits. Impression is TIA vs migraine as patient had similar episode on 07/02/2018. Patient is transferred to hosptial for further work up. No gross neurological deficits on examination. systolic murmurs noted in aortic/pulmonary and Tricuspid area. Impression: TIA, rule out stroke Plans: continue aspirin and high intensity statin Hb A1c, lipid panel EKG, ECHO, telemetry monitoring, neurocheck MRI brain Hold BP meds until MRI rule out acute stroke Neurology consult, speech/swallow consult Stroke Care path Reilly Majano MD Normal [facility] Hemoglobin A1con 07-29-2018 Hemoglobin A1c/Hemoglobin.total mass fraction (Bld) 105 mg/dL [facility] Comment on above: Result Comment: eAG: (Estimated average glucose) is a calculated value from HgbA1c and is rental sales representative of the average blood glucose level in the last 2-3 month period. Performed By: #### C BC, BMP #### [facility] [address] [place] [address] #### HBA1C, LIPB #### [facility] [address] [place] [phone] Hemoglobin A1c/Hemoglobin.total mass fraction (Bld) 5.3 % Normal 4.3-5.6 [facility] Comment on above: Result Comment: [facility] Diabetes Association guidelines indicate that patients with HgbA1c in the range 5.7-6.4% are at increased risk for development of diabetes, and intervention by lifestyle modification may be beneficial. HgbA1c greater or equal to 6.5% is considered diagnostic of diabetes. Performed By: #### C BC, BMP #### [place] [id number] #### HBA1C, LIPB #### [facility] [place] [address] [phone] Lipid Panel, Basic 019 Cholesterol in HDL mass conc 45 mg/dL Normal >39 [facility] Comment on above: Result Comment: 40-5 9 mg/dL, Acceptable >59 mg/dL, High: Negative risk factor for coronary heart disease <40 mg/dL, Low: Positive risk factor for coronary heart disease Performed By: #### C BC, BMP #### [place] [phone] #### HBA1C, LIPB #### [facility] [place] [address] [phone] Cholesterol in LDL mass conc 95 mg/dL Normal <100 [facility] Comment on above: Result Comment: <100 mg/dL, Optimal 100-129 mg/dL, Near optimal/above optimal 130-159 mg/dL, Borderline high 160-189 mg/dL, High >189 mg/dL, Very high Secondary prevention optimal LDL Cholesterol levels are recommended to be < 70 mg/dL Performed By: #### C BC, BMP #### [place] [phone] #### HBA1C, LIPB #### [facility] [place] [address] [phone] Cholesterol mass conc 150 mg/dL Normal <200 [facility] Comment on above: Result Comment: <200 mg/dL, Desirable 200-239 mg/dL, Borderline high >239 mg/dL, High Performed By: #### C BC, BMP #### [place] [id number] #### HBA1C, LIPB #### [facility] [address] [phone] LDL:HDL Ratio 2.11 Normal <2.54 [facility] Comment on above: Result Comment: Refe rence: 1. National Cholesterol Education Program ATP III Guideline At-A-Glance Quick Desk Reference: National Heart, Lung, and Blood [place]. National Institutes of Health. 2001: NIH Publication No. 01-3305. 2. An International Atherosclerosis Society position paper: global recommendations for the management of dyslipidemia: executive summary, Atherosclerosis. 2014: 232(2):410-413. Performed By: #### C BC, BMP #### [place] [id number] #### HBA1C, LIPB #### [facility] [address] [phone] Non HDL Cholesterol 105 mg/dL Normal <130 [facility] Comment on above: Result Comment: <130 mg/dL, Optimal 130-159 mg/dL, Near optimal/above optimal 160-189 mg/dL, Borderline high 190-219 mg/dL, High >219 mg/dL, Very high Secondary prevention optimal non HDL Cholesterol levels are recommended to be < 100 mg/dL Performed By: #### C BC, BMP #### [place] [id number] #### HBA1C, LIPB #### [facility] [address] [phone] TC:HDL Ratio 3.33 Normal <5.10 [facility] Comment on above: Performed By: #### C BC, BMP #### [phone] #### HBA1C, LIPB #### [facility] [address] [place] [place] [phone] Triglyceride mass conc 52 mg/dL Normal <150 [facility] Comment on above: Result Comment: <150 mg/dL, Normal 150-199 mg/dL, Borderline high 200-499 mg/dL, High >499 mg/dL, Very high Performed By: #### C BC, BMP #### [place] [phone] #### HBA1C, LIPB #### [facility] [address] [phone] VLDL Cholesterol 10 mg/dL Normal <30 [facility] Comment on above: Performed By: #### C BC, BMP #### [place] [id number] #### HBA1C, LIPB #### [facility] [phone] MRI BRAIN WO IVCONon 019 MRI BRAIN WO IVCON * * *Final Report* * * DATE OF EXAM: Jul 29 2018 12:07PM FVNarinder 0294 - MRI BRAIN WO IVCON / PROCEDURE REASON: TIA, initial exam * * * * Physician Interpretation * * * * EXAMINATION: MRI BRAIN WO IVCON CLINICAL HISTORY: TIA TECHNIQUE: Routine noncontrast MRI protocol including diffusion images. MQ: [id number] COMPARISON: None. RESULT: Acute Change: There is no evidence of restricted diffusion to suggest an acute infarct. Hemorrhage: No evidence of prior parenchymal hemorrhage on the gradient echo images. Mass Lesion/ Mass Effect: No evidence of an intracranial mass or extra-axial fluid collection. No significant mass effect. Chronic Change: Scattered patchy and confluent areas of increased T2 and FLAIR signal are present in the supratentorial white matter which is nonspecific but likely represents chronic microvascular ischemia. Parenchyma: No significant volume loss for age. The brain parenchyma is otherwise within normal limits of signal intensity and morphology. Ventricles: Normal caliber and morphology. Skull Base: Hypothalamic and pituitary region are grossly normal. Craniocervical junction is normal. No significant marrow replacement process. Vasculature: Major intracranial arterial structures, and dural venous sinuses show typical flow void, suggesting patency by spin echo criteria. Other: Mucosal thickening is noted involving the left maxillary sinus. The orbits and extracranial soft tissues are unremarkable. IMPRESSION: No acute intracranial process. There is moderate hyperintensity on T2-weighted and FLAIR images involving the supratentorial white matter which is nonspecific however likely represents chronic microvascular ischemia. Basting Cleaner: [facility] Transcribe Date/Time: Jul 29 2018 12:10P Dictated by : STEVEN CLEMONS MD This examination was interpreted and the report reviewed and electronically signed by: STEVEN CLEMONS MD on Jul 29 2018 12:12PM EST [id number] [facility] NURSING PROGon 07-29-2018 Protein mass conc HNO ID: [id number] Author: Naheed StrongRn) CHAPARRITA Lu Service: ? Author Type: Registered Nurse Type: Nursing Progress Note Filed: 07/29/2018 9:57 AM Note Text: Nursing Progress Note Patient Name: Romain Bailey Patient Location: / Daily Note:Patient is AANDox3, vss, perrla, lungs clear on room air, up with 1 assist, pt reports severe headache, given prn medications, NIH:1, q2 neuro checks, awaiting mri, passed bedside swallow evaluation, speech clear, bundle branch block on telemetry, call light in reach, safety maintained, will ctm This note was completed by: Naheed Lu RN [facility] Protein mass conc HNO ID: [id number] Author: Sujatha StrongRn) CHAPARRITA Reed Service: ? Author Type: Registered Nurse Type: Nursing Progress Note Filed: 07/29/2018 4:30 AM Note Text: Nursing Progress Note Patient Name: Romain Bailey Patient Location: / Transfer Note: Patient transferred into room/unit PKTA-5 in stable condition. Actions taken: pt oriented to room and call light. NIH 2. Some dysarthria and R ataxia noted. C/o frontal headache. Safety maintained, call light in reach, will continue to monitor. This note was completed by: Sujatha Reed RN [facility] PLAN OF CAREon 07-29-2018 PLAN OF CARE HNO ID: [id number] Author: Ryan Lozano) Gabriella Service: Psychiatry Author Type: Physician Type: Plan of Care Filed: 07/31/2018 5:56 PM Note Text: General Internal Medicine Plan of Care Patient: Romain Bailey HANDP reviewed. Briefly, Ms. Bailey is a 68yo female presenting from [place] ED for concern of TIA vs CVA. Symptoms precipitating admission included severe 8/10 sharp and throbbing headache, bilateral and supraorbital which began and had progressively worsened until admission. Improved with APAP, associated with phonophobia and photophobia and nausea. 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 Notably, she had recent presentation with similar precipitating symptoms in early June at [place] [facility] with imaging not indicative of CVA and concern for complex migraine vs TIA. She endorsed psychosocial stressors and recent anxiety regarding her significant other's planned visit from [place] which has been postponed since his daughter underwent lithotripsy and now requires renal transplant. Additionally, she has recent work stress due to increased volume. 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 Upon exam today, interval improvement in headache severity, ataxia and dysarthria. No new complaints. Objective: PE notable for mild RUE ataxia on ofyuza-ad-ypvg testing, mild RUE pronator drift. CN II-XII grossly intact, sensation grossly intact bilateral upper and lower extremities. Assessment and Plan: TIA vs complex migraine Appreciate neurology recommendations MRI brain negative for acute process Ordered headache cocktail (toradol, APAP, Mg, compazine, benadryl) Echo ordered ASA 325 received this AM, will switch to 81 mg qd Discontinue Imitrex for now Continue statin Continue tele Will hold Verapamil for now, likely resume tomorrow AM Amaris Toney DO 2:36 PM, July 29, 2018 PGY-1, Psychiatry [id number] GIM Attending Seen and admitted earlier today Management as outlined, as discussed with resident. Ryan Quiroz MD; MPH [facility] Protimeon 07-29-2018 Prothrombin time (PT) Coag time (PPP) 10.3 s Normal 9.7-13.0 [facility] Comment on above: Performed By: #### C BC, PT, PTT, BMP ####[facility] [id number] [place] [phone] Prothrombin time (PT) Coag time (PPP) 1.0 s Normal 0.9-1.3 [facility] Comment on above: Result Comment: Candelaria min K Antagonist (VKA) Therapeutic Range: INR 2 to 3 (Target INR of 2.5) Note: For patients treated with VKA drugs, such as warfarin, the [place] [employer] 2012 Guideline recommends a therapeutic INR range of 2 to 3 (target INR of 2.5). This recommendation includes high-risk patients with antiphospholipid syndrome with previous arterial or venous thromboembolism, current-generation mechanical or bioprosthetic aortic heart valve replacement. Note: Patients with mechanical aortic valve replacement and additional risk factors for thromboembolic events (atrial fibrillation, previous thromboembolism, LV dysfunction, hypercoagulable conditions) or an older generation mechanical AVR (i.e., ball in-Cage) or any mechanical MVR should have a INR therapeutic range of 2.5 to 3.5 (target INR of 3). Guyatt GH, et al. Chest 2012, 141:7S-47S Russel RA, et al. JAC 2017, 70: 252-289 Performed By: #### C BC, PT, PTT, BMP ####[facility] [id number] [phone] THERAPY NTon 07-29-2018 THERAPY NT HNO ID: [id number] Author: Lavern Fontenot (Yina Matta Service: Occupational Therapy Author Type: Occupational Therapist Type: Therapy (PT/OT/Speech/Resp) Filed: 07/29/2018 9:33 AM Note Text: Occupational Therapy Evaluation SERVICE DATE: 07/29/2018 SERVICE TIME: 734 ROOM: [place] [address] Recommended Discharge Disposition: Home OT Anticipated Discharge Needs: Physical Assist at Home Physical Assist at Home for: Transportation;Shopping ;Cleaning;Laundry;Meals OT Recommendations to Nursing: To Bathroom for ADL?s /and or Toileting;OOB for meals;Transfer to Chair;With assist of 1 person Equipment: Wheeled Walker OT 6 Clicks Score: 24 Precautions/Activity Restrictions: Bed/Chair Alarm;Fall Risk ASSESSMENT: 68 yo patient admitted to the hospital for RUE ataxia, stuttering, r/o CVA. Patient's impairments as related to Occupational Therapy include decreased strength/endurance, impaired balance, functional mobility and self care performance. Patient may benefit from Home/Outpatient Occupational Therapy in order to continue to progress functional mobility and ADL skills. Patient has adequate support and social structure for reasonably safe discharge home at current level. Patient Disposition at Start of Session: Supine in Bed;Call [facility]kins in Reach;Bed Alarm Patient Disposition at End of Session: OOB in Chair;Call Adkins in Reach;Chair Alarm Tolerated Full Session Occupational Therapy Problem List: Cognitive Deficit;Safety Deficits;Impaired Self Care;Decreased Activity Tolerance;Functional Mobility Impairment;Balance Impaired;Impaired Fine Motor Skills Patient /Caregiver Goals: Go Home Goals for [...] admission Treatment Interventions: Education;Self Care / Home Management;Strengthenin g;Functional Mobility Training;Balance Training;Neuromuscular Re-education;Pain Management Plan of Care developed with: Patient TREATMENT INTERVENTIONS: Therapy Diagnosis: Reduced mobility-other;Decrease d activities of daily living (ADL);Muscle Weakness (generalized);Unsteadin ess on feet;Lack of coordination-other Interventions Provided: Evaluation;Therapeutic Activity (92161);Self [facility] (72438) $ Evaluation-Low (14747) Billed Units: 1 unit Therapeutic Activity (70955) Treatment Minutes: 8 1 unit Skilled Intervention(s): Instructed patient in supine to sit pushing with upper extremities to sit up Instruction in sit to stand technique with proper hand placement and body positioning at edge of bed/chair Instruction in stand to sit technique with lower extremities touching chair/bed and reaching back for surface OT edu pt on allowing body to become acclimated between position changes (supine to sit, sit to stand) in order to monitor for dizziness and reduce risk of falls. Pt verbalizes and demonstrates understanding. Transfer training completed in order to increase independence with functional transfers (e.g., transfers on and off commode) and facilitate increased independence with ADL tasks. Self [facility] Management (10064) Treatment Minutes: 15 1 unit Skilled Intervention(s): Provided cuing for hand/oral hygiene. Pt completes in stance at sink. Cues for sequencing in hygiene tasks. Pt completes toileting at st toilet. Provided instruction, cuing and facilitation for lower body dressing. Dons shoes and brace while seated EOB with increased time and effort. Edu pt on s/s of stroke (BE FAST) and importance of seeking immediate medical attention/calling 911. Pt verbalizes understanding. Total Timed Code Treatment Minutes: 23 Total Treatment Time (minutes): 40 SUBJECTIVE: Current Hospital Course: Chart reviewed; see above Reason for Occupational Therapy Consult: r/o CVA, R side weakness, stuttering Relevant Past Medical History: back pain, HLD, HTN, obesity, diverticulitis Patient Report: Pleasant and agreeable to session. Reports other stressors in her life. States she can have increased assist at home. Home Environment Patient Lives With: Self/Alone Assistance Available: chalk machine operator(family in the area) Entry To Home: Stairs;With Rail Number Of Stairs Into Home: 4 Number Of Stairs To Bed/Bath: flight Stairs to Bed/Bath with: Unilateral Rail Tub/Shower Type: tub, no shower. Pt sits at the side and sponge bathes Laundry: basement Equipment Owned: Orthosis Prior Functional Level: Within Functional Limits Prior Functional Level Comments: Pt reports being ind with ADLs, IADLs, amb without AD, drives, works at a [employer] place. OBJECTIVE: Cognition/Communication Deficits Communication Deficits: (pt [...] Walker Please see discipline specific clinical documentation flowsheet for complete details for this therapy evaluation/treatment. SIGNATURE: AARON Castro PATIENT NAME: Romain Bailey DATE: July 29, 2018 TIME: 9:29 AM Normal [facility] Troponin Ton 07-29-2018 Troponin T.cardiac mass conc ug/L Normal 0.000-0.029 [facility] Comment on above: Performed By: #### T NT ####[facility] [id number] [place] [address] ANES Reymundo 05-29-2018 ANES POST HNO ID: [id number] Author: Jose A Knowles Service: Anesthesiology Author Type: Anesthesiologist Type: Anesthesia [...] is appropriately hydrated with stable respiratory and cardiovascular status. Patient has safe and adequate airway control. The patient has appropriate pain relief and no significant post operative nausea or vomiting. The patient has achieved baseline mental status. Intra-Operative Events: No Significant Anesthesia Events Further assessment by Anesthesia Service: None Other Remarks: SIGNATURE: Jose A Knowles MD PATIENT NAME: Romain Bailey DATE: May 29, 2018 TIME: 12:08 PM PAGER/CONTACT #: anesthesia [facility] ANES PREOPon 05-29-2018 ANES PREOP HNO ID: [id number] Author: Jose A Knowles Service: Anesthesiology Author Type: Anesthesiologist Type: Anesthesia PreOp Filed: 05/29/2018 10:28 AM Note Text: ANESTHESIOLOGY DAY OF SURGERY NOTE SERVICE DATE: 05/29/2018 SERVICE TIME:12.23 : 1950 Procedure(s) (LRB): COLONOSCOPY (N/A) Surgeon(s): Joshua Benjamin Estimated body mass index is 28.25 kg/m? as calculated from the following: Height as of this encounter: 167.6 cm (5' 6 ). Weight as of this encounter: 79.4 kg (175 lb). Most recent hematocrit and potassium results: Hematocrit 43.2 04/06/2018 Potassium 3.7 04/06/2018 ANES DOS/PREOP NOTE: Vitals: 05/29/18 0934 BP: 170/80 Pulse: 77 Resp: 16 Temp: 36.8 ?C (98.2 ?F) TempSrc: Temporal Artery SpO2: 94% Weight: 79.4 kg (175 lb) Height: 167.6 cm (5' 6 ) ACTIVE PROBLEM LIST Environmental Allergies Asthma Arthropathy, [...] tibial area - PAST SURGICAL HISTORY OF DANOH - REMOVAL GALLBLADDER ~2003 Cholecystectomy laparoscopic - TOTAL ABDOM HYSTERECTOMY 1999 MAURICE/BSO-pain, no abnormal paps FAMILY HISTORY Problem Relation Age of Onset - None Mother from fall - Diabetes Father - Ischemic Heart Disease Father d. [place] - Ischemic Heart Disease Maternal Grandfather d. [place] while holding her at 4mo - Blindness Brother - Heart Attack Brother Social History: Social History Tobacco Use - Smoking status: Never Smoker - Smokeless tobacco: Never Used Substance Use Topics - Alcohol use: No - Drug use: No No current facility-administered medications on file prior to encounter. Current Outpatient Medications on File Prior to Encounter: pantoprazole DR (PROTONIX) 20 mg tablet Take 1 tablet by mouth daily before breakfast. Take on empty stomach, 1/2 hr before meal. verapamil SR (CALAN SR, ISOPTIN SR) 240 mg CR tablet Take 1 tablet by mouth daily at bedtime. atorvastatin (LIPITOR) 20 mg tablet TAKE 1 TABLET BY MOUTH EVERY DAY FOR CHOLESTEROL CYCLOSPORINE OPHTHALMIC Use 1 Drop in eyes twice daily. Both eyes. fluticasone (FLONASE) 50 mcg/actuation nasal spray Use 2 Sprays in each nostril once daily. loratadine (CLARITIN) 10 mg tablet Take 1 tablet by mouth once daily as needed. FOR ALLERGY SYMPTOMS fluticasone-salmeterol [...] lactate (LAC-HYDRIN) 12 % lotion Apply 1 application to affected area as needed for Dry Skin (arms). SUMAtriptan (IMITREX) 50 mg tablet Take 1 tablet by mouth as needed (at onset of severe headache). May repeat in 2 hours if necessary. Nebulizer NEBULIZER FOR HOME USE. DX: J45.20 albuterol (PROVENTIL) 2.5 mg /3 mL (0.083 %) nebulizer solution Use 3 mL via nebulizer every 4 hours as needed for Wheezing/Shortness of Breath. Use over 5-15minutes. GLUC PEREZ/CHONDRO PEREZ A/VIT C/MN (GLUCOSAMINE 1500 COMPLEX ORAL) Take 1 tablet by mouth once daily. Current Facility-Administered Medications: NaCl 0.9% iv infusion 30 mL/hr INTRAVENOUS CONTINUOUS Joshua Benjamin Last Rate: 30 mL/hr at 05/29/18 0951 30 mL/hr at 05/29/18 0951 Allergies: ALLERGIES Allergen Reactions - Adhesive Tape (Marilou* Rash - Bactrim Ds [Sulfame* Anaphylaxis Difficulty breathing, fever, chills - Bee Sting Anaphylaxis - Darvon [Propoxyphen* - Prednisone GI Upset DOS EXAM: Adequate NPO status: Yes Anesthetic risks, benefits, alternatives, personnel and consent discussed: Yes Patient agrees to proceed: Yes Previous Anesthesia: No history of adverse event. Airway Assessment: MP 2; Neck ROM: Full ROM without neurologic symptoms; Airway Evaluation: No significant abnormalities Symptoms of Sleep Apnea: None Dentition: Poor dentition Additional Physical Exam: Lungs: Patient health status unchanged since recent history and physical. See history and physical for exam findings. Lungs clear to auscultation. Good diaphragmatic excursion. Cardiac: Patient health status unchanged since recent history and physical. See history and physical for exam findings. normal S1 and S2; no rubs, no murmurs, and no gallops Additional Pertinent Findings: N/A Blood Products: Not anticipated for this procedure. Anesthetic Plan: MAC with Sedation Pain Management Plan: Parenteral or Oral ASA Class: 3 Other Medical Problems: None Chronic Beta Danielle medication administered within 24 hours: N/A I have interviewed and examined the patient. I have reviewed the medical record and/or the pre-anesthesia evaluation, pertinent labs, and test results. Significant changes in the patient's condition since the History and Physical, not otherwise documented in primary service progress notes: No This contains updated information obtained within 48 hours of Surgery/Procedure. SIGNATURE: Jose A Knowles MD PATIENT NAME: Romain Bailey DATE: May 29, 2018 TIME: 10:28 AM CSN: [id number] Normal [facility] HISTORY PHYSICALon HISTORY PHYSICAL HNO ID: [id number] Author: Joshua Benjamin Service: General Surgery Author Type: Physician Type: HANDP Filed: 05/29/2018 10:17 AM Note Text: HISTORY AND PHYSICAL ? Romain Bailey 1950 ? REFERRING PHYSICIAN: Erik Reynolds MD ? CHIEF COMPLAINT: Diverticulitis ? HPI: The patient is a 68 year old female referred for endoscopy. Romain notes left lower quadrant pain. She is noted this pain for approximately 1 day and presented to her primary care physician's office on April 04. She had laboratory studies on April 06 which demonstrated a normal white blood cell count and unremarkable compress a metabolic panel. She denies fever, chills, or other difficulties. She notes that she has a history of constipation with the degree of sluggish bowels. ? She had a colonoscopy in [address] Hernandez for change in bowel habits. This demonstrated 2 small polyps for which 5 year follow-up colonoscopy was recommended ? The patient notes no history of upper GI complaints. ? ? ? The patient is being seen by me today at the request of Dr. Erik Reynolds MD for my opinion and advice regarding left lower quadrant tenderness. ? ? PAST?MEDICAL?HISTORY PAST MEDICAL HISTORY [...] mg tablet TAKE 1 TABLET BY MOUTH EVERY DAY FOR CHOLESTEROL ammonium lactate (LAC-HYDRIN) 12 % lotion Apply 1 application to affected area as needed for Dry Skin (arms). CYCLOSPORINE OPHTHALMIC Use 1 Drop in eyes twice daily. Both eyes. fluticasone (FLONASE) 50 mcg/actuation nasal spray Use 2 Sprays in each [...] Wheezing/Shortness of Breath. Use over 5-15minutes. GLUC PEREZ/CHONDRO PEREZ A/VIT C/MN (GLUCOSAMINE 1500 COMPLEX ORAL) Take 1 tablet by mouth once daily. ? No current facility-administered medications for this visit. ? ALLERGIES: Adhesive Tape (Rosins); Bactrim Ds [Sulfamethoxazole-Trime thoprim]; Bee Sting; Darvon [Propoxyphene Hcl]; Prednisone ? PERSONAL HISTORY: SOCIAL?HISTORY Social History Marital status: Single Spouse name: Years of education: Number of children: 4 ? 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 Social History Main Topics Smoking status: Never Smoker ? Smokeless tobacco: Never Used Alcohol use: No Drug use: No Social History Narrative 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 [employer]. 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 ? ? FAMILY HISTORY: FAMILY?HISTORY FAMILY HISTORY Problem Relation Age of Onset - None Mother ? ? from fall - Diabetes Father ? - Ischemic Heart Disease Father ? ? d. [place] - Ischemic Heart Disease Maternal Grandfather ? ? d. [place] while holding her at 4mo - Blindness Brother ? ? ? REVIEW OF SYMPTOMS: The review of systems data was entered by the nurse and reviewed by me ? Nursing Notes: Georgina Kim LPN 04/12/2018 3:23 PM Signed REVIEW OF SYSTEMS: General: The patient NOTES fatigue, denies weight loss, denies weight gain, denies feeling hot, and denies feelings of cold. Eyes: The patient NOTES glaucoma, denies eye injury/surgery, wears glasses or contacts. Ear/Nose/Throat: The patient NOTES allergies, NOTES hayfever, denies ear infections, and denies bloody noses. Cardiovascular: The patient denies chest pain, denies heart disease, NOTES high blood pressure,denies cardiac stent, denies prior heart attack, denies irregular heart beat, NOTES high cholesterol, denies poor circulation, denies heart failure, other cardiac issues, denies claudication, denies cold feet, denies peripheral arterial stent. Respiratory: The patient denies tuberculosis, NOTES pneumonia, denies frequent cough, denies pulmonary embolism, denies shortness of breath, and denies coughing up blood. Gastrointestinal: The patient denies difficulty swallowing, NOTES acid reflux, denies ulcers, denies vomiting, denies jaundice/hepatitis, denies gallbladder problems, denies black or tarry stools, denies hemorrhoids, denies bleeding from rectum, NOTES diverticulitis, NOTES constipation, NOTES diarrhea, denies loss of stool control, and denies hernias. Kidney/Bladder: The patient denies kidney stones, denies urine infections, and denies bloody urine. Skin: The patient denies a history of skin cancer, denies bleeding/changing moles, and denies a history of skin rash. Neurologic: The patient denies a history of epilepsy/convulsions, denies headaches, denies head/spinal injuries, and denies stroke/TIA. Psychiatric: The patient denies psychiatric medications, denies depression, and denies voices, denies substance abuse. Endocrine: The patient denies thyroid disorders, denies diabetes, and denies hormonal problems. Hematologic: The patient denies a history of bruising, denies bleeding, and denies anemia, denies blood clots. Infections: The patient denies a history of measles and mumps, denies rheumatic fever, and denies sexually transmitted diseases. Musculoskeletal: The patient denies back pain/injury, denies back problems, notes sciatica, NOTES knee/foot trouble, NOTES arthritis, or denies gout. ? ? When was patient's last Mammogram screening? 2017 ? Last Colonoscopy: 5 YEARS AGO hernandez ? Georgina Kim JUICE TESTER PHYSICAL EXAMINATION: ? General: The patient is 68 year old female, well nourished, well hydrated in no acute distress. The patient is oriented to time, place, and person. ? VITALS: Blood pressure 150/80, pulse 72, weight 78.9 kg (174 lb). Body mass index is 28.08 kg/m?. ? HEENT: Normal cephalic, ataumatic, pupils are equally round, sclera are anicteric, mucous membranes are moist, oropharynx is clear. Neck has no masses, asymmetry or lymphadenopathy. Thyroid is unremarkable. ? Respiratory: Clear to auscultation and percussion. Normal respiratory excursion and pattern. ? Cardiac: Examination is regular rate and rhythm. ? Abdominal exam: Soft, nontender except for mild left lower quadrant tenderness, with no palpable masses. No hepatosplenomegaly. No palpable hernias. ? Rectal exam: exam deferred ? Extremities: no clubbing, cyanosis or edema. No adenopathy. ? Other: ? LABORATORY VALUES: As Noted ? RADIOLOGIC STUDIES: As Noted ? Assessment IMPRESSION: Left lower quadrant pain, questionable history of diverticulitis, prior history of colon polyps ? PLAN: I plan to obtain a CT scan of the abdomen and pelvis. Once this is complete and if she does not have recurrent diverticulitis, I plan to perform lower endoscopy. We discussed the risks and benefits of the planned endoscopy. I have informed the patient that complications can occur including failure to complete the endoscopy and perforation. The patient had the opportunity to ask questions concerning the planned endoscopy. My staff has also explained the procedure to the patient in understandable terms and has given the patient printed material concerning the procedure. The patient freely consents to surgery. ? I plan to use golytely bowel preparation for endoscopy ? ? ? Diagnoses: (R10.32) LLQ pain (primary encounter diagnosis) (R10.32) Left lower quadrant pain ? My findings have been communicated to Dr. Erik Reynolds MD via shared medical record. This note will be forwarded to Dr. Erik Reynolds MD. Return to Clinic: The patient is instructed to follow-up with me after evaluating CT scan to schedule colonoscopy. ? Joshua Benjamin MD [facility] NURSING PROGon 05-29-2018 Protein mass conc HNO ID: [id number] Author: Elise (Rn) CHAPARRITA Santillan Service: ? Author Type: Registered Nurse Type: Nursing Progress Note Filed: 05/29/2018 11:51 AM Note Text: Nursing Progress Note Patient Name: Romain Bailey Patient Location: [facility] @Pt dressed. States, Can you just give me the discharge instructions and my friend can go get the car ? Pt alert, oriented x 3. Aware friend should stay the night. Pt smiling and no pain. Given jenn pad per request. This note was completed by: Elise Santillan RN [facility] Protein mass conc HNO ID: [id number] Author: Kristine StrongRn) CHAPARRITA Yancey Service: Nursing Author Type: Registered Nurse Type: Nursing Progress Note Filed: 05/29/2018 9:50 AM Note Text: Nursing Progress Note Patient Name: Romain Bailey Patient Location: [facility] pt ready for OR, call light in reach, friend to bedside. This note was completed by: Kristine Yancey RN [facility] PT EDon 05-29-2018 PT ED HNO ID: [id number] Author: Elise StrongRn) CHAPARRITA Santillan Service: ? Author Type: Registered Nurse Type: Patient Education Filed: 05/29/2018 11:33 AM Note Text: POST OP LEARNING RESPONSE INSTRUCTION PROVIDED TO: Patient METHOD OF INSTRUCTION: Teach Back done Individual instruction Written instruction - handouts Verbal instruction PATIENT / FAMILY RESPONSE: Verbalizes understanding of: POST-OPERATIVE INSTRUCTIONS-Correct actions to take to reduce postoperative complications SYMPTOM MANAGEMENT-Correct actions to take to manage symptoms associated with his/her disease/illness WORSENING CONDITION-Signs and symptoms of a worsening condition that warrant a call to the physician FOLLOW-UP PLAN: Patient instructed to call with any further issues SUPPLEMENTAL MATERIAL: None REFERRAL (RECOMMENDATION): None Electronically Signed By: Elise Santillan RN In Department: [facility] ENDOSCOPY [facility] PT ED HNO ID: [id number] Author: Kristine StrongRn) CHAPARRITA Yancey Service: Nursing Author Type: Registered Nurse Type: [...] Signed By: Kristine Yancey RN In Department: [facility] ENDOSCOPY [facility] NURSING PROGon 05-28-2018 Protein mass conc HNO ID: [id number] Author: Lucyasuncion Wilson RN Service: ? Author Type: Registered Nurse [...] Wilson RN May 28, 2018 1:50 PM [facility] HOSPon 05-07-2018 HOSP Patient:Jaime Bailey MRN: Height:5' 6 (1.676 m) Weight:175 lb (79.379 kg) Outpatient Medications [...] mg /3 mL (0.083 %) nebulizer solution GLUC PEREZ/CHONDRO PEREZ A/VIT C/MN (GLUCOSAMINE 1500 COMPLEX ORAL) Admission/Clinic Administered Medications as of 05/29/18: NaCl 0.9% iv infusion Problem List: Environmental allergies [Z91.09] Asthma [J45.909] Arthropathy, unspecified, site unspecified [M12.9] Essential hypertension [I10] IBS (irritable bowel syndrome) [K58.9] GERD (gastroesophageal reflux disease) [K21.9] Migraine [G43.909] Diverticulitis [K57.92] Hyperlipidemia, mixed [E78.2] Fracture of finger, middle or proximal phalanx, closed [[id number]] History of colon polyps [Z86.010] Chronic pain of right knee [M25.561, G89.29] Primary osteoarthritis of right knee [M17.11] BPPV (benign paroxysmal positional vertigo) [H81.10] Bee sting allergy [Z91.030] Bilateral low back pain with bilateral sciatica [M54.42, M54.41] Calculus of kidney [N20.0] LLQ pain [R10.32] Allergies: Adhesive Tape (Rosins) Bactrim Ds [Sulfamethoxazole-Trime thoprim] Bee Sting Darvon [Propoxyphene Hcl] Prednisone Date Verified: 05/29/18 Lab Values No results within the last 30 days for the following basenames: K,HCT Progress Notes ([facility]): Tameka Rasmussen RN 05/23/2018 8:47 AM Signed ----- Message from Na Mayberry sent at 05/23/2018 7:51 AM EDT ----- Please make arrangments to file an appeal for patient afo that was declined. Insurance reports that they did not receive prior records. JEANNA Hilario RN 05/23/2018 8:49 AM Signed Called [employer] at and spoke to Fernando regarding appeal. Fernando requested clinicals be faxed to . Case reference number [id number]. Last OV note faxed as requested. Will await outcome. Na Mayberry DPM 05/27/2018 5:11 PM Signed Thank you Na Mayberry DPM Progress Notes ([facility]): Makenzie To Ma 05/16/2018 6:35 AM Signed ----- Message from Aranza (Katlin Sanderson sent at 05/16/2018 6:32 AM EDT ----- Flu swab was negative. Follow instructions given by provider at visit, f/u with PCP if symptoms persist or worsen. Aranza Sanderson APRN.PRIMO To Ma 05/16/2018 8:04 AM Signed Pt notified [facility] XR Tib/Fib Left 2 Viewon XR Tib/Fib Left 2 View Exam Date/Time:10/09/2016 11:51 EDTReason for Exam:Pain, TraumaticReportLeft tibia fibula 2 viewsCLINICAL HISTORY: Hit in the leg with a folding tableTECHNIQUE: AP and lateral viewsFINDINGS: Fracture or dislocation was not identified. Soft tissues arepreserved. The ankle and knee are grossly anatomic.SUMMARY:No acute injury. FINAL REPORT Dictated: 10/09/2016 12:32 pm Steven Bean DO WSigned (Electronic Signature): 10/09/2016 12:32 pmSigned by: Steven Bean DO Technologist: RAE[facility] PROBING OF LACRIMAL CANALICU LI WITH OR WITHOUT IRRIGATION [facility] Vital Signs Date Time Vital Sign Value Performing Clinician Wendyi sheba 07-30-2023 10:45-0400 Body mass index (BMI) [Ratio] 31.64 kg/m2 Fatemeh Rogers MD Work Phone: [facility] 07-30-2023 10:45-0400 Body temperature 98.4 [degF] Fatemeh Rogers MD Work Phone: [facility] 07-30-2023 10:45-0400 Body weight 88.91 kg Fatemeh Rogers MD Work Phone: [facility] 07-30-2023 10:45-0400 Diastolic blood pressure 73 mm[Hg] Fatemeh Rogers MD Work Phone: [facility] 07-30-2023 10:45-0400 Heart rate 84 /min Fatemeh Rogers MD Work Phone: [facility] 07-30-2023 10:45-0400 Respiratory rate 18 /min Fatemeh Rogers MD Work Phone: [facility] 07-30-2023 10:45-0400 SaO2% (BldA) [Mass fraction] 95 % Fatemeh Rogers MD Work Phone: [facility] 07-30-2023 10:45-0400 Systolic blood pressure 127 mm[Hg] Fatemeh Rogers MD Work Phone: [facility] 07-26-2023 10:55-0400 Body mass index (BMI) [Ratio] 31.92 kg/m2 Krislyn Aberegg PA Work Phone: [facility] 07-26-2023 10:55-0400 Body temperature 98.1 [degF] Krislyn Aberegg PA Work Phone: [facility] 07-26-2023 10:55-0400 Body weight 89.7 kg Krislyn Aberegg PA Work Phone: [facility] 07-26-2023 10:55-0400 Diastolic blood pressure 67 mm[Hg] Krislyn Aberegg PA Work Phone: [facility] 07-26-2023 10:55-0400 Heart rate 73 /min Krislyn Aberegg PA Work Phone: [facility] 07-26-2023 10:55-0400 Respiratory rate 18 /min Krislyn Aberegg PA Work Phone: [facility] 07-26-2023 10:55-0400 SaO2% (BldA) [Mass fraction] 98 % Krislyn Aberegg PA Work Phone: [facility] 07-26-2023 10:55-0400 Systolic blood pressure 155 mm[Hg] Krislyn Aberegg PA Work Phone: [facility] 07-04-2023 09:06-0400 Body mass index (BMI) [Ratio] 31.8 kg/m2 Fatemeh Rogers MD Work Phone: [facility] 07-04-2023 09:06-0400 Body temperature 98.49 [degF] Fatemeh Rogers MD Work Phone: [facility] 07-04-2023 09:06-0400 Body weight 89.36 kg Fatemeh Rogers MD Work Phone: [facility] 07-04-2023 09:06-0400 Diastolic blood pressure 70 mm[Hg] Fatemeh Rogers MD Work Phone: [facility] 07-04-2023 09:06-0400 Heart rate 78 /min Fatemeh Rogers MD Work Phone: [facility] 07-04-2023 09:06-0400 Respiratory rate 18 /min Fatemeh Rogers MD Work Phone: [facility] 07-04-2023 09:06-0400 SaO2% (BldA) [Mass fraction] 99 % Fatemeh Rogers MD Work Phone: [facility] 07-04-2023 09:06-0400 Systolic blood pressure 138 mm[Hg] Fatemeh Rogers MD Work Phone: [facility] 06-08-2023 10:38-0400 Diastolic blood pressure 64 mm[Hg] Fatemeh Rogers MD Work Phone: [facility] 06-08-2023 10:38-0400 Systolic blood pressure 118 mm[Hg] Fatemeh Rogers MD Work Phone: [facility] 06-08-2023 09:46-0400 Body mass index (BMI) [Ratio] 32.44 kg/m2 Fatemeh Rogers MD Work Phone: [facility] 06-08-2023 09:46-0400 Body temperature 98.29 [degF] Fatemeh Rogers MD Work Phone: [facility] 06-08-2023 09:46-0400 Body weight 91.17 kg Fatemeh Rogers MD Work Phone: [facility] 06-08-2023 09:46-0400 Heart rate 96 /min Fatemeh Rogers MD Work Phone: [facility] 06-08-2023 09:46-0400 Respiratory rate 18 /min Fatemeh Rogers MD Work Phone: [facility] 02-27-2023 12:28-0500 Body temperature 97.81 [degF] Fatemeh Rogers MD Work Phone: [facility] 02-27-2023 12:28-0500 Body weight 89.54 kg Fatemeh Rogers MD Work Phone: [facility] 02-27-2023 12:28-0500 Diastolic blood pressure 72 mm[Hg] Fatemeh Rogers MD Work Phone: [facility] 02-27-2023 12:28-0500 Heart rate 94 /min Fatemeh Rogers MD Work Phone: [facility] 02-27-2023 12:28-0500 Respiratory rate 18 /min Fatemeh Rogers MD Work Phone: [facility] 02-27-2023 12:28-0500 SaO2% (BldA) [Mass fraction] 97 % Fatemeh Rogers MD Work Phone: [facility] 02-27-2023 12:28-0500 Systolic blood pressure 122 mm[Hg] Fatemeh Rogers MD Work Phone: [facility] 02-10-2023 09:09-0500 Body temperature 98.29 [degF] Dallas Athy PA-C Work Phone: [facility] 02-10-2023 09:09-0500 Body weight 93.62 kg Dallas Athy PA-C Work Phone: [facility] 02-10-2023 09:09-0500 Diastolic blood pressure 76 mm[Hg] Dallas Athy PA-C Work Phone: [facility] 02-10-2023 09:09-0500 Heart rate 83 /min Dallas Athy PA-C Work Phone: [facility] 02-10-2023 09:09-0500 Respiratory rate 18 /min Dallas Wilson PA-C Work Phone: [facility] 02-10-2023 09:09-0500 SaO2% (BldA) [Mass fraction] 96 % Dallas Wilson PA-C Work Phone: [facility] 02-10-2023 09:09-0500 Systolic blood pressure 134 mm[Hg] Dallas Wilson PA-C Work Phone: [facility] 01-01-2023 08:50-0500 Body weight 93.44 kg Faith Mullins DIRECTOR STAFFING.MEDICAL PAYMENT POSTER Work Phone: [facility] 01-01-2023 08:50-0500 Diastolic blood pressure 77 mm[Hg] Faith Mullins DIRECTOR STAFFING.MEDICAL PAYMENT POSTER Work Phone: [facility] 01-01-2023 08:50-0500 Heart rate 74 /min Faith Mullins DIRECTOR STAFFING.MEDICAL PAYMENT POSTER Work Phone: [facility] 01-01-2023 08:50-0500 Respiratory rate 16 /min Faith Mullins DIRECTOR STAFFING.MEDICAL PAYMENT POSTER Work Phone: [facility] 01-01-2023 08:50-0500 Systolic blood pressure 126 mm[Hg] Faith Mullins DIRECTOR STAFFING.MEDICAL PAYMENT POSTER Work Phone: [facility] 11-25-2022 14:30-0400 Body temperature 98.71 [degF] Lori Engel APRN.[employer] Work Phone: [facility] 11-25-2022 14:30-0400 Body weight 93.17 kg Lori Engel APRN.[employer]DER Work Phone: [facility] 11-25-2022 14:30-0400 Diastolic blood pressure 74 mm[Hg] Lori Engel DIRECTOR STAFFING.[employer] Work Phone: [facility] 11-25-2022 14:30-0400 Heart rate 72 /min Lori Engel DIRECTOR STAFFING.[employer]DER Work Phone: [facility] 11-25-2022 14:30-0400 Respiratory rate 18 /min Lori Engel DIRECTOR STAFFING.[employer]DER Work Phone: [facility] 11-25-2022 14:30-0400 SaO2% (BldA) [Mass fraction] 97 % Lori Engel DIRECTOR STAFFING.[employer] Work Phone: [facility] 11-25-2022 14:30-0400 Systolic blood pressure 128 mm[Hg] Lori Engel DIRECTOR STAFFING.[employer]DER Work Phone: [facility] 11-16-2022 16:36-0400 Body temperature 99.19 [degF] Komal Walter DIRECTOR STAFFING.[employer] Work Phone: [facility] 11-16-2022 16:36-0400 Body weight 93.44 kg Komal Walter DIRECTOR STAFFING.[employer] Work Phone: [facility] 11-16-2022 16:36-0400 Diastolic blood pressure 80 mm[Hg] Komal Walter DIRECTOR STAFFING.[employer] Work Phone: [facility] 11-16-2022 16:36-0400 Heart rate 71 /min Komal Walter DIRECTOR STAFFING.[employer] Work Phone: [facility] 11-16-2022 16:36-0400 Respiratory rate 22 /min Komal Walter DIRECTOR STAFFING.[employer] Work Phone: [facility] 11-16-2022 16:36-0400 SaO2% (BldA) [Mass fraction] 97 % Komal Walter DIRECTOR STAFFING.[employer] Work Phone: [facility] 11-16-2022 16:36-0400 Systolic blood pressure 170 mm[Hg] Komal Walter DIRECTOR STAFFING.[employer] Work Phone: [facility] 09-07-2022 09:50-0400 Body temperature 99.5 [degF] Paul Win DIRECTOR STAFFING.[employer] Work Phone: [facility] 09-07-2022 09:50-0400 Body weight 94.89 kg Paul Win DIRECTOR STAFFING.[employer] Work Phone: [facility] 07-13-2023 09:50-0400 Diastolic blood pressure 72 mm[Hg] [facility] DIRECTOR STAFFING.[employer]DER Work Phone: [facility] 09-07-2022 09:50-0400 Heart rate 88 /min [facility] DIRECTOR STAFFING.[employer]DER Work Phone: [facility] 09-07-2022 09:50-0400 Respiratory rate 18 /min [facility] DIRECTOR STAFFING.[employer]DER Work Phone: [facility] 09-07-2022 09:50-0400 SaO2% (BldA) [Mass fraction] 96 % [facility] DIRECTOR STAFFING.[employer] Work Phone: [facility] 09-07-2022 09:50-0400 Systolic blood pressure 126 mm[Hg] [facility] DIRECTOR STAFFING.[employer]DER Work Phone: [facility] 08-10-2022 10:31-0400 Body height 167.6 cm Francesca ETIENNE-C Work Phone: [facility] 08-10-2022 10:31-0400 Body weight 93.44 kg Francesca Peñaloza PA-C Work Phone: [facility] 08-10-2022 10:31-0400 Diastolic blood pressure 50 mm[Hg] Francesca ETIENNE-C Work Phone: [facility] 08-10-2022 10:31-0400 Heart rate 56 /min Francesca ETIENNE-C Work Phone: [facility] 08-10-2022 10:31-0400 SaO2% (BldA) [Mass fraction] 95 % Francesca ETIENNE-C Work Phone: [facility] 08-10-2022 10:31-0400 Systolic blood pressure 108 mm[Hg] Francesca Peñaloza PA-C Work Phone: [facility] 06-30-2022 09:30-0400 Body height 163 cm Fatemeh Rogers MD Work Phone: [facility] 06-30-2022 09:30-0400 Body temperature 98.2 [degF] Fatemeh Rogers MD Work Phone: [facility] 06-30-2022 09:30-0400 Body weight 95.25 kg Fatemeh Rogers MD Work Phone: [facility] 06-30-2022 09:30-0400 Diastolic blood pressure 64 mm[Hg] Fatemeh Rogers MD Work Phone: [facility] 06-30-2022 09:30-0400 Heart rate 72 /min Fatemeh Rogers MD Work Phone: [facility] 06-30-2022 09:30-0400 Respiratory rate 18 /min Fatemeh Rogers MD Work Phone: [facility] 06-30-2022 09:30-0400 SaO2% (BldA) [Mass fraction] 96 % Fatemeh Rogers MD Work Phone: [facility] 06-30-2022 09:30-0400 Systolic blood pressure 122 mm[Hg] Fatemeh Rogers MD Work Phone: [facility] 04-11-2022 10:30-0500 Body weight 93.89 kg Faith Mullins DIRECTOR STAFFING.MEDICAL PAYMENT POSTER Work Phone: [facility] 04-11-2022 10:30-0500 Diastolic blood pressure 80 mm[Hg] Faith Mullins DIRECTOR STAFFING.MEDICAL PAYMENT POSTER Work Phone: [facility] 04-11-2022 10:30-0500 Heart rate 60 /min Faith Mullins DIRECTOR STAFFING.MEDICAL PAYMENT POSTER Work Phone: [facility] 04-11-2022 10:30-0500 Respiratory rate 16 /min Faith Mullins DIRECTOR STAFFING.MEDICAL PAYMENT POSTER Work Phone: [facility] 04-11-2022 10:30-0500 SaO2% (BldA) [Mass fraction] 96 % Faith Mullins DIRECTOR STAFFING.MEDICAL PAYMENT POSTER Work Phone: [facility] 04-11-2022 10:30-0500 Systolic blood pressure 136 mm[Hg] Faith Mullins DIRECTOR STAFFING.MEDICAL PAYMENT POSTER Work Phone: [facility] 01-10-2022 09:56-0500 Body weight 93.44 kg Faith Mullins DIRECTOR STAFFING.MEDICAL PAYMENT POSTER Work Phone: [facility] 01-10-2022 09:56-0500 Diastolic blood pressure 78 mm[Hg] Faith Mullins DIRECTOR STAFFING.MEDICAL PAYMENT POSTER Work Phone: [facility] 01-10-2022 09:56-0500 Heart rate 60 /min Faith Mullins DIRECTOR STAFFING.MEDICAL PAYMENT POSTER Work Phone: [facility] 01-10-2022 09:56-0500 Respiratory rate 16 /min Faith Mullins DIRECTOR STAFFING.MEDICAL PAYMENT POSTER Work Phone: [facility] 01-10-2022 09:56-0500 Systolic blood pressure 136 mm[Hg] Faith Mullins DIRECTOR STAFFING.MEDICAL PAYMENT POSTER Work Phone: [facility] 12-22-2021 14:05-0400 Body weight 93.89 kg Faith Mullins DIRECTOR STAFFING.MEDICAL PAYMENT POSTER Work Phone: [facility] 12-22-2021 14:05-0400 Diastolic blood pressure 80 mm[Hg] Faith Mullins DIRECTOR STAFFING.MEDICAL PAYMENT POSTER Work Phone: [facility] 12-22-2021 14:05-0400 Heart rate 59 /min Faith Mullins DIRECTOR STAFFING.MEDICAL PAYMENT POSTER Work Phone: [facility] 12-22-2021 14:05-0400 Respiratory rate 16 /min Faith Mullins DIRECTOR STAFFING.MEDICAL PAYMENT POSTER Work Phone: [facility] 12-22-2021 14:05-0400 SaO2% (BldA) [Mass fraction] 96 % Faith Mullins DIRECTOR STAFFING.MEDICAL PAYMENT POSTER Work Phone: [facility] 12-22-2021 14:05-0400 Systolic blood pressure 140 mm[Hg] Faith Mullins DIRECTOR STAFFING.MEDICAL PAYMENT POSTER Work Phone: [facility] 10-11-2021 10:56-0400 Body temperature 97 [degF] Kristine Augustin DIRECTOR STAFFING.[employer] M[employer]DER Work Phone: [facility] 10-11-2021 10:56-0400 Body weight 93.62 kg Kristine Augustin DIRECTOR STAFFING.[employer] M[employer]DER Work Phone: [facility] 10-11-2021 10:56-0400 Diastolic blood pressure 80 mm[Hg] Kristine Augustin DIRECTOR STAFFING.[employer] M[employer]DER Work Phone: [facility] 10-11-2021 10:56-0400 Heart rate 86 /min Kristine Augustin DIRECTOR STAFFING.[employer] M[employer]DER Work Phone: [facility] 10-11-2021 10:56-0400 Respiratory rate 16 /min Kristine Augustin DIRECTOR STAFFING.[employer] M[employer]DER Work Phone: [facility] 10-11-2021 10:56-0400 SaO2% (BldA) [Mass fraction] 97 % Kristine Augustin DIRECTOR STAFFING.[employer] M[employer]DER Work Phone: [facility] 10-11-2021 10:56-0400 Systolic blood pressure 136 mm[Hg] Kristine Augustin DIRECTOR STAFFING.[employer] M[employer]DER Work Phone: [facility] 08-15-2021 08:39-0400 Respiratory rate 18 /min Priscila Bogner PA-C Work Phone: [facility] 08-15-2021 08:25-0400 Body temperature 97.11 [degF] Priscila Bogner PA-C Work Phone: [facility] 08-15-2021 08:25-0400 Body weight 95.53 kg Priscila Bogner PA-C Work Phone: [facility] 08-15-2021 08:25-0400 Diastolic blood pressure 78 mm[Hg] Priscila Bogner PA-C Work Phone: [facility] 08-15-2021 08:25-0400 Heart rate 81 /min Priscila Bogner PA-C Work Phone: [facility] 08-15-2021 08:25-0400 SaO2% (BldA) [Mass fraction] 96 % Priscila Bogner PA-C Work Phone: [facility] 08-15-2021 08:25-0400 Systolic blood pressure 142 mm[Hg] Priscila Contreras PA-C Work Phone: [facility] 08-12-2021 09:46-0400 Diastolic blood pressure 72 mm[Hg] Erik Reynolds MD Work Phone: [facility] 08-12-2021 09:46-0400 Systolic blood pressure 130 mm[Hg] Erik Reynolds MD Work Phone: [facility] 08-12-2021 09:16-0400 Body height 167.6 cm Erik Reynolds MD Work Phone: [facility] 08-12-2021 09:16-0400 Body weight 94.85 kg Erik Reynolds MD Work Phone: [facility] 08-12-2021 09:16-0400 Heart rate 63 /min Erik Reynolds MD Work Phone: [facility] 06-29-2021 14:30-0400 Body weight 95.71 kg Fatemeh Rogers MD Work Phone: [facility] 06-29-2021 14:30-0400 Diastolic blood pressure 74 mm[Hg] Fatemeh Rogers MD Work Phone: [facility] 06-29-2021 14:30-0400 Heart rate 78 /min Fatemeh Rogers MD Work Phone: [facility] 06-29-2021 14:30-0400 Systolic blood pressure 156 mm[Hg] Fatemeh Rogers MD Work Phone: [facility] Encounters Encounter Date Encounter Type Care Provider Facility Start: 10-31-2023 End: 11-01-2023 Refill Fatemeh Rogers MD Work Phone: [facility] Comment on above: Refill Request Start: 08-22-2023 Telephone encounter Fatemeh borja MD Work Phone: [facility] Comment on above: Medication Problem Start: 08-14-2023 Refill Fatemeh castillo MD Work Phone: [facility] [place] Comment on above: Refill Request Start: 07-30-2023 End: 07-30-2023 ambulatory Fatemeh Rogers MD Work Phone: [facility] Comment on above: Cough Start: 07-30-2023 End: 07-30-2023 Office outpatient visit 15 minutes Fatemeh Rogers MD Work Phone: [facility] Comment on above: Acute asthmatic bron chitis (Primary Dx); Mild persistent asthma with acute exacerbation Start: 07-26-2023 End: 07-26-2023 ambulatory FATEMEH ROGERS Facility:[facility] Start: 07-26-2023 End: 07-26-2023 Patient encounter procedure Nabeel ETIENNE Work Phone: [facility] Comment on above: Acute UTI (Primary D x); Burning with urination Start: 07-04-2023 End: 07-04-2023 ambulatory Fatemeh Rogers MD Work Phone: [facility] [place] Start: 07-04-2023 End: 07-04-2023 Office outpatient visit 25 minutes Fatemeh Rogers MD Work Phone: [facility] [place] Comment on above: Mild persistent asth ma without complication (Primary Dx); Allergic rhinitis, unspecified seasonality, unspecified trigger; Essential hypertension; Paroxysmal atrial fibrillation (HCC); Bee sting allergy Start: 06-14-2023 Refill Fatemeh castillo MD Work Phone: [facility] [place] Comment on above: Refill Request Start: 06-08-2023 End: 06-08-2023 ambulatory FATEMEH ROGERS Facility:[facility] [place] Start: 06-08-2023 End: 06-08-2023 Transitional care manage srvc 14 day discharge Fatemeh Rogers MD Work Phone: [facility] [place] Comment on above: Ischemic colitis (HC C) (Primary Dx); Mild persistent asthma with acute exacerbation; Essential hypertension; Paroxysmal atrial fibrillation (HCC); Bilateral lower extremity edema; Hypokalemia; Anemia, unspecified type Start: 05-31-2023 Patient Outreach Fatemeh keita MD Work Phone: [facility] [place] Comment on above: Transition Of Care Start: 04-11-2023 Telephone encounter Fatemeh borja MD Work Phone: [facility] [place] Comment on above: f/u on DME request f rom [facility] Start: 04-06-2023 Telephone encounter Fatemeh borja MD Work Phone: [facility] [place] Comment on above: Handicap Placard Start: 04-04-2023 ambulatory Fatemeh castillo MD Work Phone: [facility] [place] Comment on above: Hemorrhoids Start: 03-20-2023 End: 03-20-2023 ambulatory [facility] Facility:[facility] [place] Start: 03-20-2023 End: 03-20-2023 Patient encounter procedure Echocardiogram [facility] Work Phone: Cardiology Comment on above: Mitral valve insuffi ciency, unspecified etiology Start: 03-19-2023 End: 03-19-2023 [facility] Facility:[facility] [place] Start: 03-12-2023 End: 03-12-2023 ambulatory [facility] Facility:[facility] [place] Start: 02-28-2023 ambulatory [facility] Facility : Start: 02-27-2023 End: 02-27-2023 ambulatory FATEMEH ROGERS [facility] [facility] [place] Start: 02-27-2023 End: 02-27-2023 Office outpatient visit 25 minutes Fatemeh Rogers MD Work Phone: Internal Medicine [place] Comment on above: Moderate persistent asthma with acute exacerbation (Primary Dx); Atrial fibrillation with rapid ventricular response (HCC); Diarrhea, unspecified type Start: 02-15-2023 Telephone encounter Fatemeh borja MD Work Phone: Internal Medicine [place] Comment on above: Patient Update Start: 02-10-2023 End: 02-10-2023 Subsequent hospital visit by physician Arnaldo [facility] [place] Work Phone: Radiology Comment on above: Bronchitis [J40] Start: 02-10-2023 End: 02-10-2023 ambulatory [facility] Facility:[facility] [place] Start: 02-10-2023 End: 02-10-2023 Patient encounter procedure Dallas Wilson PA-C Work Phone: [facility] Comment on above: Bronchitis (Primary Dx) Start: 01-01-2023 End: 01-01-2023 Office outpatient visit 25 minutes Faith Mullins APRN.MEDICAL PAYMENT POSTER Work Phone: Internal Medicine [place] Comment on above: Asthma (Primary Dx); Need for shingles vaccine; Encounter for immunization; Essential hypertension; Irritable bowel syndrome without diarrhea; Gastroesophageal reflux disease, unspecified whether esophagitis present; Hyperlipidemia, mixed; Elevated glucose; Chronic left shoulder pain Start: 01-01-2023 End: 01-01-2023 [facility] Facility:[facility] [place] Start: 12-14-2022 End: 12-14-2022 Patient encounter procedure Dwight Encarnacion MD Work Phone: Orthopaedics Comment on above: Right wrist pain (Pr imary Dx); Primary osteoarthritis of first carpometacarpal joint of right hand Start: 12-14-2022 End: 12-14-2022 ambulatory DWIGHT ENCARNACION Facility:[facility] [place] Start: 11-25-2022 End: 11-25-2022 ambulatory [facility] Facility:[facility] [place] Start: 11-25-2022 End: 11-25-2022 Patient encounter procedure Lori Engel APRN.FIBERGLASS LUGGAGE MOLDER Work Phone: [place] [facility] Comment on above: Infection of right e ye (Primary Dx) Start: 11-16-2022 End: 11-16-2022 Subsequent hospital visit by physician Arnaldo [facility] [place] Work Phone: Radiology Comment on above: Acute cough [R05.1] Start: 11-16-2022 End: 11-16-2022 [facility] Facility:[facility] [place] Start: 11-16-2022 End: 11-16-2022 Patient encounter procedure Komal Walter APRN.FIBERGLASS LUGGAGE MOLDER Work Phone: [place] [facility] Comment on above: URI, acute (Primary Dx); Acute cough; History of asthma Start: 11-15-2022 Orders Only Dwight Encarnacion MD Work Phone: Appointment Center Comment on above: Pain (Primary Dx) Start: 09-07-2022 End: 09-07-2022 ambulatory FATEMEH ROGERS Facility:[facility] [place] Start: 09-07-2022 End: 09-07-2022 Office outpatient visit 25 minutes Paul Win APRN.FIBERGLASS LUGGAGE MOLDER Work Phone: [place] [facility] Comment on above: Swelling of gland of right eyelid (Primary Dx) Start: 08-22-2022 End: 08-22-2022 Subsequent hospital visit by physician [facility] Work Phone: Radiology Comment on above: Lumbar radiculopathy [M54.16] Start: 08-10-2022 End: 08-10-2022 Patient encounter procedure Francesca Peñaloza PA-C Work Phone: [facility] [place] Comment on above: Lumbar radiculopathy (Primary Dx); Sacroiliitis (HCC); Left foot drop Start: 07-26-2022 ambulatory Fatemeh castillo MD Work Phone: Internal Medicine [facility] Start: 06-30-2022 End: 06-30-2022 Office outpatient visit 25 minutes Fatemeh Rogers MD Work Phone: Internal Medicine [place] Comment on above: Essential hypertensi on (Primary Dx); Hyperlipidemia, mixed; Environmental allergies; Mild persistent asthma with acute exacerbation; Need for second booster dose of COVID-19 vaccine; Chronic bilateral low back pain with bilateral sciatica; Sacroiliitis (HCC) Start: 06-07-2022 End: 06-07-2022 ambulatory Kristine Simmons PT [facility] Comment on above: Sacroiliitis (HCC) ( Primary Dx) Start: 05-26-2022 End: 05-26-2022 ambulatory Kelley Villa DEPUTY CONTROLLER Work Phone: [facility] Comment on above: Sacroiliitis (HCC) ( Primary Dx) Start: 05-23-2022 Telephone encounter Neurology Provid er Neurology Comment on above: Appointment Reschedu led Start: 05-16-2022 End: 05-16-2022 Patient encounter procedure Nadya Perry MD Work Phone: [facility] Comment on above: 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 drainage of both sides (Primary Dx); Nldo, acquired (nasolacrimal duct obstruction), bilateral Start: 05-10-2022 End: 05-10-2022 ambulatory Kristine Simmons PT [place] [facility] Comment on above: Sacroiliitis (HCC) ( Primary Dx) Start: 04-11-2022 End: 04-11-2022 Office outpatient visit 25 minutes Faith Mullins APRN.MEDICAL PAYMENT POSTER Work Phone: Internal Medicine [place] Comment on above: Sacroiliitis (HCC) ( Primary Dx); Chronic bilateral low back pain with bilateral sciatica Start: 04-09-2022 ambulatory Rosa Isela gates MD Work Phone: [facility] Start: 03-29-2022 ambulatory Aleshia Oakley MA [facility] [place] Comment on above: Population Health Na vigation Outreach ([employer] care gaps) Start: 02-07-2022 Telephone encounter Fatemeh borja MD Work Phone: Family Medicine [place] Comment on above: Letter Start: 01-24-2022 ambulatory Makenna Bishop [facility] [place] Comment on above: Population Health Na vigation Outreach ([employer] Medicare/) Start: 01-10-2022 End: 01-10-2022 Office outpatient visit 25 minutes Faith Mullins APRN.MEDICAL PAYMENT POSTER Work Phone: Internal Medicine [place] Comment on above: Sacroiliitis (HCC) ( Primary Dx); Foot pain, left Start: 01-06-2022 Telephone encounter Fatemeh borja MD Work Phone: Internal Medicine [place] Comment on above: Patient Update Start: 12-30-2021 Orders Only Faith BARNESMEDICAL PAYMENT POSTER Work Phone: Internal Medicine [place] Start: 12-29-2021 Refill Erik bariros MD Work Phone: Internal Medicine [facility] Comment on above: Refill Request Start: 12-23-2021 Telephone encounter Lavern Abbasi Comment on above: Social Work Services Start: 12-22-2021 End: 12-22-2021 Patient encounter procedure Faith Mullins DIRECTOR STAFFING.MEDICAL PAYMENT POSTER Work Phone: Internal Medicine [place] Comment on above: Asthma (Primary Dx); Need for shingles vaccine; Encounter for immunization; Obstruction of right tear duct; Financial difficulties; TIA (transient ischemic attack); Hyperlipidemia, mixed; Atrial fibrillation with rapid ventricular response (HCC); Essential hypertension; Gastroesophageal reflux disease; Mild persistent asthma with acute exacerbation; Mild intermittent asthma without complication; Mild asthma without complication, unspecified whether persistent; Gastroesophageal reflux disease, unspecified whether esophagitis present Start: 11-30-2021 ambulatory Erik barrios MD Work Phone: Internal Medicine [facility] Start: 11-21-2021 Telephone encounter Erik Reynolds MD Work Phone: [facility] Comment on above: Results ([facility] 11/18/2021) Received Outside [facility] Records ([facility] office summary 11/18/2021) Start: 10-13-2021 Telephone encounter [place] william PA-C Work Phone: [facility] Comment on above: Results Start: 10-13-2021 End: 10-13-2021 Subsequent hospital visit by physician [facility] Work Phone: Radiology Comment on above: Pain in right lower leg [M79.661] Start: 10-11-2021 End: 10-11-2021 Subsequent hospital visit by physician [facility] Work Phone: Radiology Comment on above: Pain in right lower leg [M79.661] Start: 10-11-2021 End: 10-11-2021 Patient encounter procedure Kristine Augustin DIRECTOR STAFFING.FIBERGLASS LUGGAGE MOLDER Work Phone: [facility] Comment on above: Pain in right lower leg (Primary Dx); Fall, initial encounter Start: 09-16-2021 Telephone encounter Erik Reynolds MD Work Phone: Family [facility] Comment on above: Received Outside Med ical Records ([facility] 09/15/2021 Emergency room summary) Received Outside Med ical Records ([facility] CT Abdomen and Pelvid 09/15/2021) Start: 09-06-2021 Telephone encounter Erik Reynolds MD Work Phone: Family [facility] Comment on above: Received Outside Med ical Records ([facility] cardiovascular) Start: 09-05-2021 Refill Erik barrios MD Work Phone: Family [facility] Comment on above: Refill Request Start: 09-01-2021 Refill Erik barrios MD Work Phone: [facility] Comment on above: Refill Request Start: 08-24-2021 ambulatory Erik barrios MD Work Phone: Internal Medicine [facility] [place] Start: 08-15-2021 End: 08-15-2021 Office outpatient visit 15 minutes Priscila Contreras PA-C Work Phone: [facility] Comment on above: Swelling of gland of right eyelid (Primary Dx) Start: 08-12-2021 End: 08-12-2021 Patient encounter procedure Erik Reynolds MD Work Phone: [facility] Comment on above: Generalized weakness (Primary Dx); Primary osteoarthritis of right knee; Hyperglycemia; Abdominal wall hematoma, sequela; Bee sting allergy; Hyperlipidemia, mixed; Atrial fibrillation with rapid ventricular response (HCC); Essential hypertension; Gastroesophageal reflux disease, unspecified whether esophagitis present; Screening for lipid disorders Start: 08-08-2021 Telephone encounter Erik Reynolds MD Work Phone: [facility] Comment on above: Received Outside Med ical Records ([facility]) Start: 07-27-2021 Telephone encounter Erik Reynolds MD Work Phone: [facility] Comment on above: Received Outside Med ical Records (discharge summary from [facility] home health) Start: 07-18-2021 Telephone encounter Erik Reynolds MD Work Phone: Family Practice Comment on above: Received Outside Med ical Records ([facility] OT discharge 07/14/2021) Orders ([facility] PT and OPERATIONS SYSTEMS SPECIALIST evaluation 07/14/2021) order for PT (review ed and signed by PCP faxed to [facility] home health services) Start: 07-07-2021 Telephone encounter Erik Reynolds MD Work Phone: Family Practice Comment on above: request for sign off on orders (from [facility]) Start: 07-05-2021 Telephone encounter Erik Reynolds MD Work Phone: Family Practice Comment on above: Orders (request for sign off from PCP from [facility] services ) Start: 07-04-2021 Telephone encounter Erik Reynolds MD Work Phone: Family Practice Comment on above: Patient Update (from [facility], pt does not want OT at this time FYI) Patient Update Start: 07-01-2021 Telephone encounter Erik Reynolds MD Work Phone: Family Medicine Comment on above: Received Outside Med ical Records (Missed visit [facility] 06/24/2021) Start: 06-30-2021 Telephone encounter Erik Reynolds MD Work Phone: Family Medicine Comment on above: Received Outside Med ical Records ([facility] certification and plan of care 06/21/2021 - 08/19/2021) Start: 06-29-2021 End: 06-29-2021 Office outpatient visit 25 minutes Fatemeh Rogers MD Work Phone: Internal Medicine [place] Comment on above: Abdominal wall hemat gino, sequela (Primary Dx); Adhesive capsulitis of left shoulder; AF (paroxysmal atrial fibrillation) (HCC); Need for COVID-19 vaccine Start: 06-22-2021 Telephone encounter Erik Reynolds MD Work Phone: Family Practice Comment on above: Patient Request Start: 06-21-2021 Telephone encounter Erik Reynolds MD Work Phone: Family Practice Comment on above: Received Outside Med ical Records ([facility] Discharge Summary 06/20/2021) Start: 06-20-2021 Telephone encounter Erik Reynolds MD Work Phone: [facility] Comment on above: Received Outside Med ical Records ([facility] Emergency Dept Summary 06/19/2021) Received Outside Med ical Records ([facility] Discharge instructions 06/20/2021) Home Care Management Start: 06-13-2021 Telephone encounter Erik Reynolds MD Work Phone: [facility] Comment on above: Received Outside Med ical Records ([facility] Imagining 06/10/2021) Received Outside Med ical Records ([facility] Emergnecy dept summary 06/10/2021) Start: 06-10-2021 ambulatory 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 Work Phone: Radiology Comment on above: Acute pain of left s johanne [M25.512] Start: 10-09-2016 End: 10-09-2016 Emergency department patient visit Harman Summers Facility:[facility] Procedures Date Procedure Procedure Detail Performing Clinician Start: 07-26-2023 Urnls dip stick/tabl et rgnt auto w/o microscopy Nabeel ETIENNE Work Phone: Start: 03-20-2023 Echo tthrc r-t 2d w/wom-mode compl spec&colr d Faith Mullins DIRECTOR STAFFING.MEDICAL PAYMENT POSTER Work Phone: Start: 02-10-2023 Radiologic exam ches t 2 views Dallas Wilson PA-C Work Phone: Start: 01-01-2023 INFLUENZA VACCINE, P RSV FREE, AGE 65+ YR, HIGH DOSE, QUADRIVALENT (FLUZONE HIGH-DOSE) Faith Mullins DIRECTOR STAFFING.MEDICAL PAYMENT POSTER Work Phone: Start: 01-01-2023 PFIZER-BIONTECH COVI D-19 VACCINE (2022- SEASON) AGE 12+ YR Faith Harpreet DIRECTOR STAFFING.MEDICAL PAYMENT POSTER Work Phone: Start: 11-16-2022 COVID & INFLUENZA A/ B & RSV NAAT, ROUTINE Komal Walter DIRECTOR STAFFING.FIBERGLASS LUGGAGE MOLDER Work Phone: Start: 11-16-2022 Iadna respiratry pro be & rev trnscr 3-5 targets Komal Walter DIRECTOR STAFFING.FIBERGLASS LUGGAGE MOLDER Work Phone: Start: 11-16-2022 Sars-cov-2 detection by dna/rna Komal Walter APRN.FIBERGLASS LUGGAGE MOLDER Work Phone: Start: 11-16-2022 Radiologic exam ches t 2 views Komal Walter APRN.FIBERGLASS LUGGAGE MOLDER Work Phone: Start: 08-22-2022 Radex spine lumbosac ral minimum 4 views Francesca Peñaloza PA-C Work Phone: Start: 06-30-2022 PFIZER-BIONTECH COVI D-19 BIVALENT VACCINE, AGE 12+ YR Fatemeh Rogers MD Work Phone: Start: 06-30-2022 Lipid 1996 panel - S jaqueline or Plasma Dwight Encarnacion MD Work Phone: Start: 05-16-2022 Probe lacrimal canal iculi w/wo irrigation Miguel March DIRECTOR STAFFING.FIBERGLASS LUGGAGE MOLDER Work Phone: Start: 12-22-2021 INFLUENZA SEASONAL QUADRIVALENT HIGH DOSE AGE 65+ Faith Mullins DIRECTOR STAFFING.MEDICAL PAYMENT POSTER Work Phone: Start: 12-22-2021 PFIZER-BIONTECH COVI D-19 BIVALENT BOOSTER VACCINE, AGE 12+ YR Faith Mullins DIRECTOR STAFFING.MEDICAL PAYMENT POSTER Work Phone: Start: 11-18-2021 CBC + DIFF [facility] Provid er Start: 10-13-2021 Dup-scan xtr veins unilateral/limited study Kristine Augustin DIRECTOR STAFFING.FIBERGLASS LUGGAGE MOLDER Work Phone: Start: 10-11-2021 Radiologic examinati on tibia & fibula 2 views Kristine Augustin DIRECTOR STAFFING.FIBERGLASS LUGGAGE MOLDER Work Phone: Start: 08-12-2021 Adult depression scr eening assessment Erik [place] MD Work Phone: Start: 06-29-2021 PFIZER-BIONTECH COVI D-19 VACCINE, AGE 12+ YR (SOLANO TOP) Fatemeh Rogers MD Work Phone: Start: 08-03-2020 Radex ankle complete minimum 3 views Dimas Osborn DIRECTOR STAFFING.FIBERGLASS LUGGAGE MOLDER Work Phone: Start: 01-07-2020 Radex shoulder compl ete minimum 2 views Dimas Osborn DIRECTOR STAFFING.FIBERGLASS LUGGAGE MOLDER Work Phone: Start: 08-30-2018 Adult depression scr eening assessment Erik Reynolds MD Work Phone: Start: 05-29-2018 Colonoscopy Erik bravo MD Work Phone: Start: 06-26-2016 Mammography Erik bravo MD Work Phone: Plan of Treatment Date Care Activity Detail Author Start: 07-01-2027 Lipid 1996 panel - Serum or Plasma Lipid Screening [facility] Start: 07-01-2027 Lipid panel Lipid Screening [facility] Start: 07-01-2027 LIPID SCREEN LIPID SCREEN [facility] Start: 08-19-2026 LIPID SCREEN LIPID SCREEN [facility] Start: 03-19-2026 Diabetes Screening Diabetes Screenin [facility] Start: 08-11-2025 Urine microalbumin profile [facility] Start: 06-30-2025 DIABETES SCREEN DIABETES SCREEN [facility] Start: 06-30-2025 Diabetes Screening Diabetes Screenin g [facility] Start: 08-19-2024 DIABETES SCREEN DIABETES SCREEN [facility] Start: 07-29-2024 Annual PCP Team Control Officer mary Disease Visit Annual PCP Team Chronic Disease Visit [facility] Start: 07-29-2024 BP Controlled (<130/80) BP Controlle d (<130/80) [facility] Start: 07-04-2024 End: 07-04-2024 Patient encounter procedure 07/04/2024 9:40 AM EDT Office Visit [facility] [place] [address] [place] [place] [id number] Fatemeh Rogers MD [address] [place] [id number] 6 month follow up [facility] Medicine [place] Comment on above: 6 month follow up Start: 07-03-2024 Annual PCP Team Control Officer mary Disease Visit Annual PCP Team Chronic Disease Visit [facility] Start: 06-07-2024 Annual PCP Team Control Officer mary Disease Visit Annual PCP Team Chronic Disease Visit [facility] Start: 06-07-2024 BP Controlled (<130/80) BP Controlle d (<130/80) [facility] Start: 02-28-2024 Annual PCP Team Control Officer mary Disease Visit Annual PCP Team Chronic Disease Visit [facility] Start: 01-11-2024 End: 01-11-2024 Patient encounter procedure [facility] [place] Comment on above: 6 month follow up Start: 01-04-2024 Screening for malign ant neoplasm of colon Colorectal Cancer Screening [facility] Comment on above: Postponed from 03/02 (Declined at this time) Start: 01-02-2024 BP Controlled (<130/80) BP Controlle d (<130/80) [facility] Start: 11-26-2023 BP Controlled (<130/80) BP Controlle d (<130/80) [facility] Start: 10-28-2023 Covid-19 Vaccine () Covid-19 Vaccine () [facility] Start: 10-28-2023 Covid-19 Vaccine () Covid-19 Vaccine () [facility] Start: 10-28-2023 Influenza vaccination Influenza Vacc ine (#1) [facility] Start: 09-27-2023 Covid-19 Vaccine ( season) Covid-19 Vaccine () [facility] Comment on above: Postponed from 05/01 (Declined at this time) Start: 09-08-2023 BP CONTROLLED (<130/80) BP CONTROLLE D (<130/80) [facility] Start: 08-11-2023 BP CONTROLLED (<130/80) BP CONTROLLE D (<130/80) [facility] Start: 07-30-2023 LIPID SCREEN LIPID SCREEN [facility] Start: 07-04-2023 End: 07-04-2023 Patient encounter procedure 07/04/2023 9:00 AM EDT Office Visit [facility] [place] [address] [place], [place] [id number] Fatemeh Rogers MD [address] [place], [place] [id number] 6 month follow up [facility] [place] Comment on above: 6 month follow up Start: 07-01-2023 ANNUAL PCP TEAM SHOE REPAIRER APPRENTICE MARY DISEASE VISIT ANNUAL PCP TEAM CHRONIC DISEASE VISIT [facility] Start: 07-01-2023 BP CONTROLLED (<130/80) BP CONTROLLE D (<130/80) [facility] Start: 06-25-2023 End: 12-24-2023 CBC W Auto Differential panel - Blood CBC + DIFF Lab Routine Essential hypertension Expected: 06/25/2023 (Approximate), Expires: 12/24/2023 [facility] Work Phone: Comment on above: Expected: 06/25/2023 (Approximate), Expires: 12/24/2023 Start: 06-25-2023 End: 12-24-2023 Comprehensive metabolic 2000 panel - Serum or Plasma COMP METABOLIC PANEL Lab Routine Essential hypertension Expected: 06/25/2023 (Approximate), Expires: 12/24/2023 [facility] Work Phone: Comment on above: Expected: 06/25/2023 (Approximate), Expires: 12/24/2023 Start: 06-25-2023 End: 12-24-2023 Hemoglobin A1c in Blood HGB A1C Lab Routine Elevated glucose Expected: 06/25/2023 (Approximate), Expires: 12/24/2023 [facility] Work Phone: Comment on above: Expected: 06/25/2023 (Approximate), Expires: 12/24/2023 Start: 06-25-2023 End: 12-24-2023 Lipid 1996 panel - Serum or Plasma LIPID PANEL BASIC Lab Routine Hyperlipidemia, mixed Expected: 06/25/2023 (Approximate), Expires: 12/24/2023 [facility] Work Phone: Comment on above: Expected: 06/25/2023 (Approximate), Expires: 12/24/2023 Start: 05-30-2023 Colonoscopy COLONOSCOPY [facility] Start: 05-30-2023 COLORECTAL CANCER SCREENING COLORECTAL CANCER SCREENING [facility] Start: 05-30-2023 Screening for malign ant neoplasm of colon [facility] Start: 05-02-2023 Covid-19 Vaccine () Covid-19 Vaccine () [facility] Start: 02-26-2023 Advance Directive Discussion Advance Directive Discussion [facility] Start: 02-26-2023 Behavioral Health Screening Behavioral Health Screening [facility] Start: 02-26-2023 Depression Assessment Depression Ass essment [facility] Start: 12-22-2022 BP CONTROLLED (<130/80) BP CONTROLLE D (<130/80) [facility] Start: 12-16-2022 DIABETES SCREEN DIABETES SCREEN [facility] Start: 10-27-2022 Influenza vaccination [facility] Start: 08-12-2022 Adult depression screening assessment DEPRESSION SCREENING [facility] Start: 08-12-2022 ANNUAL PCP TEAM SHOE REPAIRER APPRENTICE MARY DISEASE VISIT ANNUAL PCP TEAM CHRONIC DISEASE VISIT [facility] Start: 06-29-2022 ANNUAL PCP TEAM SHOE REPAIRER APPRENTICE MARY DISEASE VISIT ANNUAL PCP TEAM CHRONIC DISEASE VISIT [facility] Start: 06-16-2022 End: 12-01-2022 CBC W Auto Differential panel - Blood CBC + DIFF Lab Routine TIA (transient ischemic attack) Hyperlipidemia, mixed Gastroesophageal reflux disease Expected: 06/16/2022 (Approximate), Expires: 12/01/2022 [facility] Work Phone: Comment on above: Expected: 06/16/2022 (Approximate), Expires: 12/01/2022 Start: 06-16-2022 End: 12-01-2022 Comprehensive metabolic 2000 panel - Serum or Plasma COMP METABOLIC PANEL Lab Routine TIA (transient ischemic attack) Hyperlipidemia, mixed Gastroesophageal reflux disease Expected: 06/16/2022 (Approximate), Expires: 12/01/2022 [facility] [facility]: Comment on above: Expected: 06/16/2022 (Approximate), Expires: 12/01/2022 Start: 06-16-2022 End: 12-01-2022 Lipid 1996 panel - Serum or Plasma LIPID PANEL BASIC Lab Routine TIA (transient ischemic attack) Hyperlipidemia, mixed Expected: 06/16/2022 (Approximate), Expires: 12/01/2022 [facility] Work Phone: Comment on above: Expected: 06/16/2022 (Approximate), Expires: 12/01/2022 Start: 02-27-2022 SHINGRIX VACCINE (1 of 2) SHINGRIX VACCINE (1 of 2) [facility] Comment on above: Postponed from 03/02 (Insurance Coverage) Start: 02-26-2022 ADVANCE DIRECTIVE DISCUSSION ADVANCE DIRECTIVE DISCUSSION [facility] Start: 02-26-2022 DEPRESSION ASSESSMENT DEPRESSION ASS ESSMENT [facility] Start: 12-14-2021 ANNUAL PCP TEAM SHOE REPAIRER APPRENTICE MARY DISEASE VISIT ANNUAL PCP TEAM CHRONIC DISEASE VISIT [facility] Start: 11-30-2021 End: 01-30-2022 Magnesium [Mass/volume] in Serum or Plasma MAGNESIUM BLD Lab Routine Medication management Expected: 11/30/2021, Expires: 01/30/2022 [facility] Work Phone: Comment on above: Expected: 11/30/2021 , Expires: 01/30/2022 Start: 11-30-2021 End: 01-30-2022 SCHEDULE LAB TESTING SCHEDULE LAB TESTING Lab Routine Expected: 11/30/2021, Expires: 01/30/2022 [facility] Work Phone: Comment on above: Expected: 11/30/2021 , Expires: 01/30/2022 Start: 10-30-2021 COVID-19 VACCINE (4 - Booster for Pfizer series) COVID-19 VACCINE (4 - Booster for Pfizer series) [facility] Start: 10-27-2021 Influenza vaccination INFLUENZA (#1) [facility] Start: 08-24-2021 COVID-19 VACCINE (4 - Booster for Pfizer series) COVID-19 VACCINE (4 - Booster for Pfizer series) [facility] Start: 08-12-2021 End: 10-12-2021 Basic metabolic 2000 panel - Serum or Plasma BASIC METABOLIC PNL Lab Routine Hyperglycemia Expected: 08/12/2021, Expires: 10/12/2021 [facility] Work Phone: Comment on above: Expected: 08/12/2021 , Expires: 10/12/2021 Start: 08-12-2021 End: 10-12-2021 CBC panel - Blood by Automated count CBC Lab Routine Abdominal wall hematoma, sequela Expected: 08/12/2021, Expires: 10/12/2021 [facility] Work Phone: Comment on above: Expected: 08/12/2021 , Expires: 10/12/2021 Start: 08-12-2021 End: 10-12-2021 Hemoglobin A1c in Blood HGB A1C Lab Routine Hyperglycemia Expected: 08/12/2021, Expires: 10/12/2021 [facility] Work Phone: Comment on above: Expected: 08/12/2021 , Expires: 10/12/2021 Start: 08-12-2021 End: 10-12-2021 Iron and Iron binding capacity panel - Serum or Plasma IRON + TIBC Lab Routine Abdominal wall hematoma, sequela Expected: 08/12/2021, Expires: 10/12/2021 [facility] Work Phone: Comment on above: Expected: 08/12/2021 , Expires: 10/12/2021 Start: 08-12-2021 End: 10-12-2021 Lipid 1996 panel - Serum or Plasma LIPID PANEL BASIC Lab Routine Screening for lipid disorders Expected: 08/12/2021, Expires: 10/12/2021 [facility] Work Phone: Comment on above: Expected: 08/12/2021 , Expires: 10/12/2021 Start: 06-13-2021 COVID-19 VACCINE (3 - Booster for Pfizer series) COVID-19 VACCINE (3 - Booster for Pfizer series) [facility] Start: 02-26-2021 ADVANCE DIRECTIVE DISCUSSION ADVANCE DIRECTIVE DISCUSSION [facility] Start: 02-26-2021 DEPRESSION ASSESSMENT DEPRESSION ASS ESSMENT [facility] Start: 08-31-2019 Adult depression screening assessment DEPRESSION SCREENING [facility] Start: 06-26-2017 Mammography [facility] Start: 06-26-2017 Screening for malign ant neoplasm of breast Mammogram Screening [facility] Start: 05-23-2014 FECAL OCCULT BLOOD FECAL OCCULT BLOO D [facility] Start: 05-23-2014 Screening for malign ant neoplasm of colon Fecal Occult Blood [facility] Start: 2011 RSV Vaccine (1 - 1-d ose 60+ series) RSV Vaccine (1 - 1-dose 60+ series) [facility] Start: 2011 RSV Vaccine (1 - Ris k 60-74 years 1-dose series) RSV Vaccine (1 - Risk 60-74 years 1-dose series) [facility] Start: 2001 SHINGRIX VACCINE (1 of 2) SHINGRIX VACCINE (1 of 2) [facility] Start: 1996 COLOGUARD (FIT-DNA) COLOGUARD (FIT-D NA) [facility] Start: [address] COLONOGRAPHY [facility] Start: 1996 Screening for malign ant neoplasm of colon [facility] Start: 1996 SIGMOIDOSCOPY SIGMOIDOSCOPY [facility] Start: 1969 Anxiety Screening Anxiety Screening [facility] Start: 1969 BP CONTROLLED (<130/80) BP CONTROLLE D (<130/80) [facility] Start: 1969 Depression Screening Depression Scre ening [facility] Start: 1969 SPIROMETRY SPIROMETRY [facility] Bacteria identified in Urine by Culture URINE CULTURE Microbiology Routine Burning with urination 07/26/2023 11:03 AM EDT [facility] Work Phone: End: 11-10-2022 Dup-scan xtr veins unilateral/limited study US DVT LOWER RT Radiology STAT Pain in right lower leg 1 Occurrences starting 10/11/2021 until 11/10/2022 [facility] Work Phone: Comment on above: 1 Occurrences starti ng 10/11/2021 until 11/10/2022 End: 08-25-2023 KENNY SCREENING KENNY SCREENING Radiology Routine Encounter for screening mammogram for breast cancer 1 Occurrences starting 07/26/2022 until 08/25/2023 [facility] Work Phone: Comment on above: 1 Occurrences starti ng 07/26/2022 until 08/25/2023 End: 08-02-2024 MG Breast Screening KENNY SCREENING Radiology Routine Encounter for screening mammogram for breast cancer 1 Occurrences starting 07/04/2023 until 08/02/2024 [facility] Work Phone: Comment on above: 1 Occurrences starti ng 07/04/2023 until 08/02/2024 PT PLAN OF CARE CERTIFICATION PT PLAN OF CARE CERTIFICATION Procedures Routine Sacroiliitis (HCC) Ordered: 05/10/2022 [facility] Comment on above: Ordered: 05/10/2022 End: 09-09-2023 Radex spine lumbosacral minimum 4 views XR LUMBAR MOTION 4V AP/LAT/ FLEX/EXT Radiology Routine Lumbar radiculopathy Sacroiliitis (HCC) 1 Occurrences starting 08/10/2022 until 09/09/2023 [facility] Work Phone: Comment on above: 1 Occurrences starti ng 08/10/2022 until 09/09/2023 End: 09-23-2022 Screening mammography bi 2-view breast inc cad KENNY SCREENING Radiology Routine Encounter for screening mammogram for breast cancer 1 Occurrences starting 08/24/2021 until 09/23/2022 [facility] Work Phone: Comment on above: 1 Occurrences starti ng 08/24/2021 until 09/23/2022 End: 01-21-2023 SPIROMETRY - BASELINE AND POST DILATOR SPIROMETRY - BASELINE AND POST DILATOR PFT Routine Asthma 1 Occurrences starting 12/22/2021 until 01/21/2023 [facility] Work Phone: Comment on above: 1 Occurrences starti ng 12/22/2021 until 01/21/2023 End: 01-31-2024 SPIROMETRY - BASELINE AND POST DILATOR SPIROMETRY - BASELINE AND POST DILATOR PFT Routine Asthma 1 Occurrences starting 01/01/2023 until 01/31/2024 [facility] Work Phone: Comment on above: 1 Occurrences starti ng 01/01/2023 until 01/31/2024 End: 12-15-2023 XR WRIST GENERAL 3V PA/LAT/OBL RIGHT XR WRIST GENERAL 3V PA/LAT/OBL RIGHT Radiology Routine Pain 1 Occurrences starting 11/15/2022 until 12/15/2023 [facility] Work Phone: Comment on above: 1 Occurrences starti ng 11/15/2022 until 12/15/2023 [facility] Immunizations Immunization Date Immunization Notes Care Provider Jatinder terrazas 01-01-2023 COVID-19 vaccine, ag e 12+ yr, 2022- season (PFIZER-BIONTECH) Faith Mullins DIRECTOR STAFFING.MEDICAL PAYMENT POSTER Work Phone: [facility] Work Phone: 01-01-2023 influenza (HD-IIV4) vaccine, age 65+ yr, high dose, quadrivalent, PF (FLUZONE HIGH-DOSE) Faith Mullins DIRECTOR STAFFING.MEDICAL PAYMENT POSTER Work Phone: [facility] Work Phone: 01-01-2023 influenza virus vacc ine, unspecified formulation Fatemeh Rogers MD Work Phone: [facility] 06-30-2022 COVID-19 vaccine, ag e 12+ yr, bivalent (PFIZER-BIONTECH) Fatemeh Rogers MD Work Phone: [facility] 12-22-2021 COVID-19 booster vaccine, age 12+ yr, bivalent (PFIZER-BIONTECH) Faith Mullins APRN.MEDICAL PAYMENT POSTER Work Phone: [facility] Work Phone: 12-22-2021 influenza, high-dose , quadrivalent vaccine (FLUZONE HIGH DOSE QUADRIVALENT) Faith Mullins APRN.MEDICAL PAYMENT POSTER Work Phone: [facility] Work Phone: 12-22-2021 influenza virus vacc ine, unspecified formulation Dwight Encarnacion MD Work Phone: [facility] 06-29-2021 COVID-19 vaccine, ag e 12+ yr (PFIZER-BIONTECH - SOLANO TOP) Erik Reynolds MD Work Phone: [facility] 01-13-2021 COVID-19 vaccine, ag e 12+ yr (PFIZER-BIONTECH - PURPLE TOP) Erik Reynolds MD Work Phone: [facility] Work Phone: 12-14-2020 COVID-19 vaccine, ag e 12+ yr (PFIZER-BIONTECH - PURPLE TOP) Erik Reynolds MD Work Phone: [facility] 12-14-2020 influenza, high-dose , quadrivalent vaccine (FLUZONE HIGH DOSE QUADRIVALENT) Erik Reynolds MD Work Phone: [facility] 01-07-2020 influenza, high-dose , quadrivalent vaccine (FLUZONE HIGH DOSE QUADRIVALENT) Erik Reynolds MD Work Phone: [facility] 02-07-2019 pneumococcal polysaccharide vaccine, 23 valent Erik Reynolds MD Work Phone: [facility] 01-10-2019 influenza, seasonal, injectable, preservative free Erik Reynolds MD Work Phone: [facility] 01-06-2019 influenza, high dose seasonal, preservative-free Erik Reynolds MD Work Phone: [facility] 12-11-2017 influenza, high dose seasonal, preservative-free Erik Reynolds MD Work Phone: [facility] 11-26-2017 influenza, seasonal, injectable, preservative free Erik Reynolds MD Work Phone: [facility] 12-05-2016 influenza, high dose seasonal, preservative-free Erik Reynolds MD Work Phone: [facility] 06-02-2016 pneumococcal conjuga te vaccine, 13 valent Erik Reynolds MD Work Phone: [facility] 12-28-2015 influenza, high dose seasonal, preservative-free Erik Reynolds MD Work Phone: [facility] 10-28-2015 influenza, seasonal, injectable, preservative free Erik Reynolds MD Work Phone: [facility] 08-12-2015 tetanus toxoid, redu kris diphtheria toxoid, and acellular pertussis vaccine, adsorbed Erik Reynolds MD Work Phone: [facility] 12-01-2014 influenza, injectabl e, quadrivalent, contains preservative Erik Reynolds MD Work Phone: [facility] 12-01-2014 influenza, seasonal, injectable Erik Reynolds MD Work Phone: [facility] 11-19-2013 influenza, seasonal, injectable Erik Reynolds MD Work Phone: [facility] Work Phone: 11-19-2013 pneumococcal polysaccharide vaccine, 23 valent Erik Reynolds MD Work Phone: [facility] Work Phone: Payers Date Payer Category Payer Self-pay 2022 Unknown [id number] 2020 Medicare HU[employer]NA MEDICARE [employer] GOLD PLUS [id number] 2020-[facility] [id number] [place] [id number] [facility] [id number] 2018 Medicare [id number] 2016 Private Health Insurance 1950 Unknown [id number] Social History Date Type Detail Facility Start: 04-20-2016 End: 12-22-2021 Tobacco smoking status NHIS Never smoked tobacco [facility] Work Phone: Start: 04-20-2016 End: 12-22-2021 Tobacco use and exposure Smokeless tobacco non-user [facility] Work Phone: Start: 01-07-2020 End: 01-25-2021 Alcohol intake Current non-drinker of alcohol (finding) [facility] Start: 1950 Sex Assigned At Not on file [facility] Start: 12-08-2019 End: 01-10-2022 Exposure to SARS-CoV-2 (event) Not sure [facility] Start: 06-28-2021 End: 12-20-2021 History SDOH Alcohol Frequency 1 [facility] Start: 06-28-2021 History SDOH Alcohol Std Drinks 98 [facility] Start: 06-28-2021 History SDOH Social Connections Phone 5 [facility] Start: 06-28-2021 History SDOH Social Connections Get Together 3 [facility] Start: 06-28-2021 End: 12-20-2021 History SDOH Social Connections Membership 2 [facility] Start: 06-28-2021 History SDOH Physica l Activity DPW 0 [facility] Start: 08-30-2018 End: 09-07-2022 History of Social function [facility] Start: 08-30-2018 End: 09-07-2022 Tobacco use panel [facility] Adult Depression Screening Assessment 1 [facility] In the past 12 month s, was there a time when you were not able to pay the mortgage or rent on time? Yes [facility] At any time in the p ast 12 months, were you homeless or living in alf [including now]? No [facility] Are you now , , , , never or living with a partner? [facility] How often to you hav e a drink containing alcohol? Never [facility] Do you feel stress - tense, restless, nervous, or anxious, or unable to sleep at night because your mind is troubled all the time - these days [OSQ] Not at all [facility] (I/We) worried wheth er (my/our) food would run out before (I/we) got money to buy more. Sometimes true [facility] How hard is it for y ou to pay for the very basics like food, housing, medical care, and heating Somewhat hard [facility] Do you feel stress - tense, restless, nervous, or anxious, or unable to sleep at night because your mind is troubled all the time - these days [OSQ] Only a little [facility] Clinical Notes 08-28-2012 to 11-01-2023 Telephone Encounter - Elise Knox LPN - 11/01/2023 10:22 AM EDTTelephone Encounter - Elise Knox LPN - 11/01/2023 10:22 AM Fatemeh Campbell MD - 07/30/2023 11:23 AM EDT Note Date & Type Note Facility 11-01-2023 Telephone encounter Note Prescription Refill Information The patient has been identified by name and date of : Yes Caregiver verified no other encounters exist for this prescription request: Yes Caregiver confirmed with patient/requestor that no other refills are due, in the near future, with this provider at this time: Yes The last office visit in the department: 07/30/23 Does the patient have a future office visit with this provider/department: Yes Requested Prescriptions Pending Prescriptions Disp Refills apixaban (ELIQUIS) 5 mg tab(s) 60 tablet 3 Sig: Take 1 tablet by mouth two times a day. Will start when delivered Elise Knox LPN November 01, 2023 10:23 AM [facility] 11-01-2023 Miscellaneous Notes Prescription Refill Information The patient has been identified by name and date of : Yes Caregiver verified no other encounters exist for this prescription request: Yes Caregiver confirmed with patient/requestor that no other refills are due, in the near future, with this provider at this time: Yes The last office visit in the department: 07/30/23 Does the patient have a future office visit with this provider/department: Yes Requested Prescriptions Pending Prescriptions Disp Refills apixaban (ELIQUIS) 5 mg tab(s) 60 tablet 3 Sig: Take 1 tablet by mouth two times a day. Will start when delivered Elise Knox LPN November 01, 2023 10:23 AM Patient is calling. Pharmacy states they have used the last script and need a new one sent. documented in this encounter [facility] 10-31-2023 Telephone encounter Note Patient is calling. Pharmacy states they have used the last script and need a new one sent. [facility] Work Phone: 08-22-2023 Telephone encounter Note New script sent. [facility] 08-22-2023 Miscellaneous Notes New script sent. [facility]- reports the epinephrine (AUVI-Q), needs to be changed to generic epinephrine (epi pen) and re-sent to [facility]. Reports AUVI-Q is not covered. Pended. [facility] asking office to notify patient when new Rx is sent to [facility]. documented in this encounter [facility] 08-22-2023 Telephone encounter Note [facility]- reports the epinephrine (AUVI-Q), needs to be changed to generic epinephrine (epi pen) and re-sent to [facility]. Reports AUVI-Q is not covered. Pended. [facility] asking office to notify patient when new Rx is sent to [facility]. [facility] 08-14-2023 Telephone encounter Note Patient has been identified by name and date of : Patient phones for refill(s): Requested Prescriptions Pending Prescriptions Disp Refills pantoprazole DR (PROTONIX) 20 mg tablet 90 tablet 3 Sig: Take 1 tablet by mouth once daily. atorvastatin (LIPITOR) 40 mg tablet 90 tablet 3 Sig: Take 1 tablet by mouth once daily. verapamil SR (CALAN SR) 240 mg CR tablet 90 tablet 3 Sig: Take 1 tablet by mouth daily at bedtime. apixaban (ELIQUIS) 5 mg tab(s) Sig: Take 1 tablet by mouth two times a day. Will start when delivered EPINEPHrine (AUVI-Q) 0.3 mg/0.3 mL auto-injector 2 Each 3 Sig: Inject 0.3 mL intramuscularly as needed. Date of last office visit in primary care: 07/30/2023 Date of next office visit in primary care: 01/11/2024 Please advise. Thank you. Sari Hooper. [facility] 08-14-2023 Miscellaneous Notes Patient has been identified by name and date of : Patient phones for refill(s): Requested Prescriptions Pending Prescriptions Disp Refills pantoprazole DR (PROTONIX) 20 mg tablet 90 tablet 3 Sig: Take 1 tablet by mouth once daily. atorvastatin (LIPITOR) 40 mg tablet 90 tablet 3 Sig: Take 1 tablet by mouth once daily. verapamil SR (CALAN SR) 240 mg CR tablet 90 tablet 3 Sig: Take 1 tablet by mouth daily at bedtime. apixaban (ELIQUIS) 5 mg tab(s) Sig: Take 1 tablet by mouth two times a day. Will start when delivered EPINEPHrine (AUVI-Q) 0.3 mg/0.3 mL auto-injector 2 Each 3 Sig: Inject 0.3 mL intramuscularly as needed. Date of last office visit in primary care: 07/30/2023 Date of next office visit in primary care: 01/11/2024 Please advise. Thank you. Sari Hooper. documented in this encounter [facility] 07-30-2023 Note HNO ID: [id number] Author: FATEMEH ROGERS MD Service: ? Author Type: Physician Type: Progress Notes Filed: 08/30/2023 22:31 Note Text: This note was created using [employer]. Subjective Romain Bailey is a 73 year old female. Patient presents with: Cough: X 2 days cough, chest tightness,scratchy throat fever of 101 on Sunday SUBJECTIVE: Romain Bailey is a 73 year old year old lady here today for acute appointment for review of medical conditions: cough and wheezing starting Sunday. Worse by Sunday. Scratchy throat, tightness in upper mid- chest and SOB.Trouble falling asleep. Throat was sore at first. BFelt like had band arond her head--Tylenol helped for this 101 fever at home. Shivering with chills. Albuterol MDI helps for a little while. Has not increased to Advair 250 yet. No ill contacts. Macrobid was given for UTI recently. No baseline bone density on file. Does feel tight in throat. Voice gets hoarse at times. PAST MEDICAL HISTORY Diagnosis Date Arthropathy, unspecified, site unspecified Asthma Back pain Calculus of kidney 05/09/2018 Colon polyps 2014 Diverticulitis 2000 Environmental allergies GERD (gastroesophageal reflux disease) Hyperlipidemia lifestyle controlled Hypertension IBS (irritable bowel syndrome) Migraine Obesity Pseudophakia 12/2021 both Current Outpatient Medications Medication Sig nitrofurantoin monohydrate and macrocrystal (MACROBID) 100 mg capsule Take 1 capsule by mouth two times a day for 5 days. albuterol HFA (PROVENTIL HFA, VENTOLIN HFA) 90 mcg/actuation inhaler Inhale 2 Puffs as instructed every 6 hours as needed. EPINEPHrine (AUVI-Q) 0.3 mg/0.3 mL auto-injector Inject 0.3 mL intramuscularly as needed. fluticasone-salmeterol (ADVAIR DISKUS) 100-50 mcg/dose inhaler Inhale 1 Puff as instructed two times a day. RINSE AND GARGLE MOUTH WITH WATER AFTER EACH USE. fluticasone (FLONASE) 50 mcg/actuation nasal spray Use 2 Sprays in each nostril once daily. metoprolol tartrate, short acting, (LOPRESSOR) 25 mg tablet Take 1 tablet by mouth two times a day. fluticasone-salmeterol (ADVAIR DISKUS) 250-50 mcg/dose inhaler Inhale 1 Puff as instructed two times a day. For Asthma flare. Resume Advair 100 after this one completed benzonatate (TESSALON PERLES) 100 mg capsule Take 2 capsules by mouth three times a day as needed. colestipol (COLESTID) 1 gram tablet Take 1 tablet by mouth as needed. verapamil SR (CALAN SR) 240 mg CR tablet Take 1 tablet by mouth daily at bedtime. atorvastatin (LIPITOR) 40 mg tablet Take 1 tablet by mouth once daily. pantoprazole DR (PROTONIX) 20 mg tablet Take 1 tablet by mouth once daily. loratadine (CLARITIN) 10 mg tablet Take 1 tablet by mouth once daily. albuterol (PROVENTIL) 2.5 mg /3 mL (0.083 %) nebulizer solution Use 3 mL via nebulizer every 4 hours as needed for wheezing/shortness of breath. Use over 5-15minutes. apixaban (ELIQUIS) 5 mg tab(s) Take 5 mg by mouth twice daily. Will start when delivered ondansetron orally disintegrating (ZOFRAN ODT) 4 mg disintegrating tablet DISSOLVE 1 TABLET ON THE TONGUE EVERY 6 HOURS NEEDED FOR NAUSEA/VOMITING meclizine (ANTIVERT) 25 mg tab Take 1 tablet by mouth every 6 hours as needed (dizziness). Nebulizer NEBULIZER FOR HOME USE. DX: J45.20 metoprolol tartrate, short acting, (LOPRESSOR) 25 mg tablet Take 1 tablet by mouth two times a day. (Patient not taking: Reported on 07/30/2023) No current facility-administered medications for this visit. Review of Systems Objective BP 127/73 Pulse 84 Temp 36.9 ?C (98.4 ?F) Resp 18 Wt 88.9 kg (196 lb) SpO2 95% BMI 31.64 kg/m? Physical Exam Constitutional: General: She is not in acute distress. Appearance: Normal appearance. She is ill-appearing. She is not toxic-appearing or diaphoretic. HENT: Head: Normocephalic. Eyes: Conjunctiva/sclera: Conjunctivae normal. Cardiovascular: Rate and Rhythm: Normal rate and regular rhythm. Heart sounds: Normal heart sounds. Pulmonary: Effort: Pulmonary effort is normal. No respiratory distress. Breath sounds: Stridor (intermittent; able to relax throat and this resolves) present. Wheezing present. No rhonchi or rales. Chest: Chest wall: Tenderness (left mid chest MCL and along sternal border) present. Skin: General: Skin is warm and dry. Neurological: General: No focal deficit present. Mental Status: She is alert and oriented to person, place, and time. Psychiatric: Mood and Affect: Mood normal. Behavior: Behavior normal. Thought Content: Thought content normal. Judgment: Judgment normal. Assessment and Plan Encounter Diagnosis ICD-10-CM 1. Acute asthmatic bronchitis J45.909 azithromycin (ZITHROMAX) 250 mg tablet predniSONE (DELTASONE) 20 mg tablet Discussed management. Meds as prescribed 2. Mild persistent asthma with acute exacerbation J45.31 azithromycin (ZITHROMAX) 250 mg tablet predn (more content not included)... [facility] 07-30-2023 History of Present illness Narrative This note was created using [employer]. Subjective Romain Bailey is a 73 year old female. Patient presents with: Cough: X 2 days cough, chest tightness,scratchy throat fever of 101 on Sunday SUBJECTIVE: Romain Bailey is a 73 year old year old lady here today for acute appointment for review of medical conditions: cough and wheezing starting Sunday. Worse by Sunday. Scratchy throat, tightness in upper mid- chest and SOB.Trouble falling asleep. Throat was sore at first. BFelt like had band arond her head--Tylenol helped for this 101 fever at home. Shivering with chills. Albuterol MDI helps for a little while. Has not increased to Advair 250 yet. No ill contacts. Macrobid was given for UTI recently. No baseline bone density on file. Does feel tight in throat. Voice gets hoarse at times. PAST MEDICAL HISTORY Diagnosis Date Arthropathy, unspecified, site unspecified Asthma Back pain Calculus of kidney 05/09/2018 Colon polyps 2013 Diverticulitis 2000 Environmental allergies GERD (gastroesophageal reflux disease) Hyperlipidemia lifestyle controlled Hypertension IBS (irritable bowel syndrome) Migraine Obesity Pseudophakia 12/2021 both Current Outpatient Medications Medication Sig nitrofurantoin monohydrate and macrocrystal (MACROBID) 100 mg capsule Take 1 capsule by mouth two times a day for 5 days. albuterol HFA (PROVENTIL HFA, VENTOLIN HFA) 90 mcg/actuation inhaler Inhale 2 Puffs as instructed every 6 hours as needed. EPINEPHrine (AUVI-Q) 0.3 mg/0.3 mL auto-injector Inject 0.3 mL intramuscularly as needed. fluticasone-salmeterol (ADVAIR DISKUS) 100-50 mcg/dose inhaler Inhale 1 Puff as instructed two times a day. RINSE AND GARGLE MOUTH WITH WATER AFTER EACH USE. fluticasone (FLONASE) 50 mcg/actuation nasal spray Use 2 Sprays in each nostril once daily. metoprolol tartrate, short acting, (LOPRESSOR) 25 mg tablet Take 1 tablet by mouth two times a day. fluticasone-salmeterol (ADVAIR DISKUS) 250-50 mcg/dose inhaler Inhale 1 Puff as instructed two times a day. For Asthma flare. Resume Advair 100 after this one completed benzonatate (TESSALON PERLES) 100 mg capsule Take 2 capsules by mouth three times a day as needed. colestipol (COLESTID) 1 gram tablet Take 1 tablet by mouth as needed. verapamil SR (CALAN SR) 240 mg CR tablet Take 1 tablet by mouth daily at bedtime. atorvastatin (LIPITOR) 40 mg tablet Take 1 tablet by mouth once daily. pantoprazole DR (PROTONIX) 20 mg tablet Take 1 tablet by mouth once daily. loratadine (CLARITIN) 10 mg tablet Take 1 tablet by mouth once daily. albuterol (PROVENTIL) 2.5 mg /3 mL (0.083 %) nebulizer solution Use 3 mL via nebulizer every 4 hours as needed for wheezing/shortness of breath. Use over 5-15minutes. apixaban (ELIQUIS) 5 mg tab(s) Take 5 mg by mouth twice daily. Will start when delivered ondansetron orally disintegrating (ZOFRAN ODT) 4 mg disintegrating tablet DISSOLVE 1 TABLET ON THE TONGUE EVERY 6 HOURS NEEDED FOR NAUSEA/VOMITING meclizine (ANTIVERT) 25 mg tab Take 1 tablet by mouth every 6 hours as needed (dizziness). Nebulizer NEBULIZER FOR HOME USE. DX: J45.20 metoprolol tartrate, short acting, (LOPRESSOR) 25 mg tablet Take 1 tablet by mouth two times a day. (Patient not taking: Reported on 07/30/2023) No current facility-administered medications for this visit. Review of Systems Objective BP 127/73 Pulse 84 Temp 36.9 C (98.4 F) Resp 18 Wt 88.9 kg (196 lb) SpO2 95% BMI 31.64 kg/m Physical Exam Constitutional: General: She is not in acute distress. Appearance: Normal appearance. She is ill-appearing. She is not toxic-appearing or diaphoretic. HENT: Head: Normocephalic. Eyes: Conjunctiva/sclera: Conjunctivae normal. Cardiovascular: Rate and Rhythm: Normal rate and regular rhythm. Heart sounds: Normal heart sounds. Pulmonary: Effort: Pulmonary effort is normal. No respiratory distress. Breath sounds: Stridor (intermittent; able to relax throat and this resolves) present. Wheezing present. No rhonchi or rales. Chest: Chest wall: Tenderness (left mid chest MCL and along sternal border) present. Skin: General: Skin is warm and dry. Neurological: General: No focal deficit present. Mental Status: She is alert and oriented to person, place, and time. Psychiatric: Mood and Affect: Mood normal. Behavior: Behavior normal. Thought Content: Thought content normal. Judgment: Judgment normal. Assessment and Plan Encounter Diagnosis ICD-10-CM 1. Acute asthmatic bronchitis J45.909 azithromycin (ZITHROMAX) 250 mg tablet predniSONE (DELTASONE) 20 mg tablet Discussed management. Meds as prescribed 2. Mild persistent asthma with acute exacerbation J45.31 azithromycin (ZITHROMAX) 250 mg tablet predniSONE (DELTASONE) 20 mg tablet As noted above Above issues addressed with patient. Patient involved in shared decision making for management of medical issues. History and medications reviewed. Epic updated as needed Refills and/or prescriptions taken care of and meds adjusted as indicated after reviewed history, exam and labs. Further evaluation and treatment as indicated. Fatemeh Rogers MD documented in this encounter [facility] 07-30-2023 Telephone encounter Note Patient calls to report cough and mild SOB. Recently seen in and on Macrobid for UTI. Patient concerned the antibiotic is causing the symptoms. Patient sounds congested over the phone with mild SOB and cough. Nurse triage completed. Protocol recommends see provider within 4 hours. Appointment scheduled. Care advice reviewed. Patient verbalizes understanding. Reason for Disposition [1] MILD difficulty breathing (e.g., minimal/no SOB at rest, SOB with walking, pulse <100) AND [2] still present when not coughing Answer Assessment - Initial Assessment Questions 1. ONSET: Patient reports the cough started around the same time as she developed UTI symptoms. She started antibiotic and that afternoon cough started. Non-productive. 2. SEVERITY: Bothersome. Patient coughed while on phone. 3. SPUTUM:None 4. HEMOPTYSIS: No 5. DIFFICULTY BREATHING:- MILD: No SOB at rest, mild SOB with walking, speaks normally in sentences, can lie down, no retractions, pulse < 100. 6. FEVER:Not currently but over the weekend was 101. 7. CARDIAC HISTORY: No history of heart attack, congestive heart failure 8. LUNG HISTORY: Asthma No history of pulmonary embolism, emphysema) 9. PE RISK FACTORS: No recent major surgery, recent prolonged travel, bedridden. 10. OTHER SYMPTOMS: Patient has asthma and reports some SOB and chest tightness. Utilizes nebulizer with relief. No runny nose or wheezing. Protocols used: Cough - Acute Agq-Kjhadfykat-WNHTW-AH [facility] 07-30-2023 Miscellaneous Notes Patient calls to report cough and mild SOB. Recently seen in and on Macrobid for UTI. Patient concerned the antibiotic is causing the symptoms. Patient sounds congested over the phone with mild SOB and cough. Nurse triage completed. Protocol recommends see provider within 4 hours. Appointment scheduled. Care advice reviewed. Patient verbalizes understanding. Reason for Disposition [1] MILD difficulty breathing (e.g., minimal/no SOB at rest, SOB with walking, pulse <100) AND [2] still present when not coughing Answer Assessment - Initial Assessment Questions 1. ONSET: Patient reports the cough started around the same time as she developed UTI symptoms. She started antibiotic and that afternoon cough started. Non-productive. 2. SEVERITY: Bothersome. Patient coughed while on phone. 3. SPUTUM:None 4. HEMOPTYSIS: No 5. DIFFICULTY BREATHING:- MILD: No SOB at rest, mild SOB with walking, speaks normally in sentences, can lie down, no retractions, pulse < 100. 6. FEVER:Not currently but over the weekend was 101. 7. CARDIAC HISTORY: No history of heart attack, congestive heart failure 8. LUNG HISTORY: Asthma No history of pulmonary embolism, emphysema) 9. PE RISK FACTORS: No recent major surgery, recent prolonged travel, bedridden. 10. OTHER SYMPTOMS: Patient has asthma and reports some SOB and chest tightness. Utilizes nebulizer with relief. No runny nose or wheezing. Protocols used: Cough - Acute Lxi-Htaxnchvkw-ZJKMY-AH documented in this encounter [facility] 07-26-2023 Note HNO ID: [id number] Author: NABEEL ADAN PA Service: ? Author Type: Physician Box Closing Machine Operator Type: Progress Notes Filed: 07/26/2023 11:04 Note Text: This note was created using NoteWriter. Subjective Romain Bailey is a 73 year old female. HPI 73-year-old female presents for UTI symptoms. Symptoms started 2 days ago. She has been having burning with urination, urgency, frequency. Has not noticed any blood in the urine. No abdominal pain. Has a little bit of low back pain. No fevers or vomiting. Has had UTIs in the past, but none recently. No other complaint. PAST MEDICAL HISTORY Diagnosis Date Arthropathy, unspecified, site unspecified Asthma Back pain Calculus of kidney 05/09/2018 Colon polyps 2014 Diverticulitis 2000 Environmental allergies GERD (gastroesophageal reflux disease) Hyperlipidemia lifestyle controlled Hypertension IBS (irritable bowel syndrome) Migraine Obesity Pseudophakia 12/2021 both PAST SURGICAL HISTORY Procedure Laterality Date CHOLECYSTECTOMY ~2003 Cholecystectomy laparoscopic COLONOSCOPY AND POLYPECTOMY 12/03/2013 tubular adenoma, hyperplastic polyp; repeat due in 5y COLONOSCOPY FLX DX W/COLLJ SPEC WHEN PFRMD 05/29/2018 Colonoscopy DEBRIDEMENT SUBCUTANEOUS TISSUE 20 SQ CM/< 05/15/2007 Debridement infected moira cyst upper mid back PAST SURGICAL HISTORY OF 1984 metal removed from right tibial area PAST SURGICAL HISTORY OF [facility] PAST SURGICAL HISTORY OF Right 11/2022 Tear duct bocklage lanced TOTAL ABDOMINAL HYSTERECT W/WO RMVL TUBE OVARY 1999 MAURICE/BSO-pain, no abnormal paps ALLERGIES Bactrim Ds [Sulfamethoxazole-Trimethoprim], Bee Sting, Adhesive Tape (Rosins), Darvon [Propoxyphene Hcl], Influenza Virus Vaccines, and Pepper (Genus Capsicum) MEDICATIONS nitrofurantoin monohydrate and macrocrystal (MACROBID) 100 mg capsule Take 1 capsule by mouth two times a day for 5 days. albuterol HFA (PROVENTIL HFA, VENTOLIN HFA) 90 mcg/actuation inhaler Inhale 2 Puffs as instructed every 6 hours as needed. EPINEPHrine (AUVI-Q) 0.3 mg/0.3 mL auto-injector Inject 0.3 mL intramuscularly as needed. metoprolol tartrate, short acting, (LOPRESSOR) 25 mg tablet Take 1 tablet by mouth two times a day. fluticasone-salmeterol (ADVAIR DISKUS) 100-50 mcg/dose inhaler Inhale 1 Puff as instructed two times a day. RINSE AND GARGLE MOUTH WITH WATER AFTER EACH USE. fluticasone (FLONASE) 50 mcg/actuation nasal spray Use 2 Sprays in each nostril once daily. metoprolol tartrate, short acting, (LOPRESSOR) 25 mg tablet Take 1 tablet by mouth two times a day. fluticasone-salmeterol (ADVAIR DISKUS) 250-50 mcg/dose inhaler Inhale 1 Puff as instructed two times a day. For Asthma flare. Resume Advair 100 after this one completed benzonatate (TESSALON PERLES) 100 mg capsule Take 2 capsules by mouth three times a day as needed. colestipol (COLESTID) 1 gram tablet Take 1 tablet by mouth as needed. verapamil SR (CALAN SR) 240 mg CR tablet Take 1 tablet by mouth daily at bedtime. atorvastatin (LIPITOR) 40 mg tablet Take 1 tablet by mouth once daily. pantoprazole DR (PROTONIX) 20 mg tablet Take 1 tablet by mouth once daily. loratadine (CLARITIN) 10 mg tablet Take 1 tablet by mouth once daily. albuterol (PROVENTIL) 2.5 mg /3 mL (0.083 %) nebulizer solution Use 3 mL via nebulizer every 4 hours as needed for wheezing/shortness of breath. Use over 5-15minutes. apixaban (ELIQUIS) 5 mg tab(s) Take 5 mg by mouth twice daily. Will start when delivered ondansetron orally disintegrating (ZOFRAN ODT) 4 mg disintegrating tablet DISSOLVE 1 TABLET ON THE TONGUE EVERY 6 HOURS NEEDED FOR NAUSEA/VOMITING meclizine (ANTIVERT) 25 mg tab Take 1 tablet by mouth every 6 hours as needed (dizziness). Nebulizer NEBULIZER FOR HOME USE. DX: J45.20 FAMILY HISTORY Problem Relation Age of Onset None Mother from fall Diabetes Father Ischemic Heart Disease Father d. [place] Ischemic Heart Disease Maternal Grandfather d. [place] while holding her at 4mo Blindness Brother Heart Attack Brother Social History Tobacco Use Smoking status: Never Smokeless tobacco: Never Vaping Use Vaping Use: Never used Substance Use Topics Alcohol use: No Drug use: No Review of Systems Constitutional: Negative for chills and fever. HENT: Negative for congestion, ear pain and sore throat. Respiratory: Negative for cough and shortness of breath. Cardiovascular: Negative for chest pain. Gastrointestinal: Negative for abdominal pain, diarrhea and vomiting. Genitourinary: Positive for dysuria, frequency and urgency. Negative for hematuria, vaginal discharge and vaginal pain. Objective BP 155/67 Pulse 73 Temp 36.7 ?C (98.1 ?F) Resp 18 Wt 89.7 kg (197 lb 12 oz) SpO2 98% BMI 31.92 kg/m? Physical Exam Vitals and nursing note reviewed. Constitutional: General: She is not in acute distress. Appearance: Normal appearance. She is not to (more content not included)... [facility] 07-26-2023 History of Present illness Narrative This note was created using [employer]. Subjective Romain Bailey is a 73 year old female. HPI 73-year-old female presents for UTI symptoms. Symptoms started 2 days ago. She has been having burning with urination, urgency, frequency. Has not noticed any blood in the urine. No abdominal pain. Has a little bit of low back pain. No fevers or vomiting. Has had UTIs in the past, but none recently. No other complaint. PAST MEDICAL HISTORY Diagnosis Date Arthropathy, unspecified, site unspecified Asthma Back pain Calculus of kidney 05/09/2018 Colon polyps 2013 Diverticulitis 2000 Environmental allergies GERD (gastroesophageal reflux disease) Hyperlipidemia lifestyle controlled Hypertension IBS (irritable bowel syndrome) Migraine Obesity Pseudophakia 12/2021 both PAST SURGICAL HISTORY Procedure Laterality Date CHOLECYSTECTOMY ~2003 Cholecystectomy laparoscopic COLONOSCOPY & POLYPECTOMY 12/03/2013 tubular adenoma, hyperplastic polyp; repeat due in 5y COLONOSCOPY FLX DX W/COLLJ SPEC WHEN PFRMD 05/29/2018 Colonoscopy DEBRIDEMENT SUBCUTANEOUS TISSUE 20 SQ CM/< 05/15/2007 Debridement infected moira cyst upper mid back PAST SURGICAL HISTORY OF 1984 metal removed from right tibial area PAST SURGICAL HISTORY OF [facility] PAST SURGICAL HISTORY OF Right 11/2022 Tear duct bocklage lanced TOTAL ABDOMINAL HYSTERECT W/WO RMVL TUBE OVARY 1999 MAURICE/BSO-pain, no abnormal paps ALLERGIES Bactrim Ds [Sulfamethoxazole-Trimethoprim], Bee Sting, Adhesive Tape (Rosins), Darvon [Propoxyphene Hcl], Influenza Virus Vaccines, and Pepper (Genus Capsicum) MEDICATIONS nitrofurantoin monohydrate and macrocrystal (MACROBID) 100 mg capsule Take 1 capsule by mouth two times a day for 5 days. albuterol HFA (PROVENTIL HFA, VENTOLIN HFA) 90 mcg/actuation inhaler Inhale 2 Puffs as instructed every 6 hours as needed. EPINEPHrine (AUVI-Q) 0.3 mg/0.3 mL auto-injector Inject 0.3 mL intramuscularly as needed. metoprolol tartrate, short acting, (LOPRESSOR) 25 mg tablet Take 1 tablet by mouth two times a day. fluticasone-salmeterol (ADVAIR DISKUS) 100-50 mcg/dose inhaler Inhale 1 Puff as instructed two times a day. RINSE AND GARGLE MOUTH WITH WATER AFTER EACH USE. fluticasone (FLONASE) 50 mcg/actuation nasal spray Use 2 Sprays in each nostril once daily. metoprolol tartrate, short acting, (LOPRESSOR) 25 mg tablet Take 1 tablet by mouth two times a day. fluticasone-salmeterol (ADVAIR DISKUS) 250-50 mcg/dose inhaler Inhale 1 Puff as instructed two times a day. For Asthma flare. Resume Advair 100 after this one completed benzonatate (TESSALON PERLES) 100 mg capsule Take 2 capsules by mouth three times a day as needed. colestipol (COLESTID) 1 gram tablet Take 1 tablet by mouth as needed. verapamil SR (CALAN SR) 240 mg CR tablet Take 1 tablet by mouth daily at bedtime. atorvastatin (LIPITOR) 40 mg tablet Take 1 tablet by mouth once daily. pantoprazole DR (PROTONIX) 20 mg tablet Take 1 tablet by mouth once daily. loratadine (CLARITIN) 10 mg tablet Take 1 tablet by mouth once daily. albuterol (PROVENTIL) 2.5 mg /3 mL (0.083 %) nebulizer solution Use 3 mL via nebulizer every 4 hours as needed for wheezing/shortness of breath. Use over 5-15minutes. apixaban (ELIQUIS) 5 mg tab(s) Take 5 mg by mouth twice daily. Will start when delivered ondansetron orally disintegrating (ZOFRAN ODT) 4 mg disintegrating tablet DISSOLVE 1 TABLET ON THE TONGUE EVERY 6 HOURS NEEDED FOR NAUSEA/VOMITING meclizine (ANTIVERT) 25 mg tab Take 1 tablet by mouth every 6 hours as needed (dizziness). Nebulizer NEBULIZER FOR HOME USE. DX: J45.20 FAMILY HISTORY Problem Relation Age of Onset None Mother from fall Diabetes Father Ischemic Heart Disease Father d. [place] Ischemic Heart Disease Maternal Grandfather d. [place] while holding her at 4mo Blindness Brother Heart Attack Brother Social History Tobacco Use Smoking status: Never Smokeless tobacco: Never Vaping Use Vaping Use: Never used Substance Use Topics Alcohol use: No Drug use: No Review of Systems Constitutional: Negative for chills and fever. HENT: Negative for congestion, ear pain and sore throat. Respiratory: Negative for cough and shortness of breath. Cardiovascular: Negative for chest pain. Gastrointestinal: Negative for abdominal pain, diarrhea and vomiting. Genitourinary: Positive for dysuria, frequency and urgency. Negative for hematuria, vaginal discharge and vaginal pain. Objective BP 155/67 Pulse 73 Temp 36.7 C (98.1 F) Resp 18 Wt 89.7 kg (197 lb 12 oz) SpO2 98% BMI 31.92 kg/m Physical Exam Vitals and nursing note reviewed. Constitutional: General: She is not in acute distress. Appearance: Normal appearance. She is not toxic-appearing. Cardiovascular: Rate and Rhythm: Normal rate and regular rhythm. Pulmonary: Effort: Pulmonary effort is normal. Breath sounds: Normal breath sounds. Abdominal: General: Abdomen is flat. Palpations: Abdomen is soft. Tenderness: There is no abdominal tenderness. There is no right CVA tenderness, left CVA tenderness, guarding or rebound. Neurological: Mental Status: She is alert. Assessment and Plan ASSESSMENT/PLAN: 1. Acute UTI - ICD9: 599.0, ICD10: N39.0 (primary diagnosis) acute - UA positive for radha esterase, hematuria, and proteinuria - Send urine for culture - Begin treatment with Macrobid 100 mg BID for 5 days - GFR 78 in 02/2023 - Patient education for prevention given 2. Burning with urination - ICD9: 788.1, ICD10: R30.0 - UA DIP, URINE (POC) - URINE CULTURE Diagnosis and treatment plan were discussed and questions were answered to the patient's satisfaction. Pt acknowledged understanding of concepts and follow up plan. Specific signs and symptoms that would indicate the need for higher level of care were discussed in detail warranting prompt ER evaluation. JAIMIE Woods documented in this encounter [facility] 07-04-2023 Note HNO ID: [id number] Author: FATEMEH ROGERS MD Service: ? Author Type: Physician Type: Progress Notes Filed: 08/03/2023 00:20 Note Text: This note was created using [employer]. Subjective Romain Bailey is a 73 year old female. Patient presents with: F/U 6 months SUBJECTIVE: Romain Bailey is a 73 year old year old lady here today for 6 month follow up appointment for review of medical conditions. Stable on current meds. Losing weigh successfully. Not as hungry. Drinking more water to stay hydrated. Water before and after meals. Has tea and lemonade too. 60 ounces of water from her bottle per day. BMs better and urinating better. Dog was sick since I last saw her. Doing better. GI issues. Has HCDPOA . Working on LW. Surrogate Decision makers--Anne-Marie Moise and Yoel ([address] Cowan is her GI provider now. Will follow up with him for colonoscopy screening for colon cancer. PAST MEDICAL HISTORY Diagnosis Date Arthropathy, unspecified, site unspecified Asthma Back pain Calculus of kidney 05/09/2018 Colon polyps 2013 Diverticulitis 2000 Environmental allergies GERD (gastroesophageal reflux disease) Hyperlipidemia lifestyle controlled Hypertension IBS (irritable bowel syndrome) Migraine Obesity Pseudophakia 12/2021 both Current Outpatient Medications Medication Sig metoprolol tartrate, short acting, (LOPRESSOR) 25 mg tablet Take 1 tablet by mouth two times a day. fluticasone-salmeterol (ADVAIR DISKUS) 100-50 mcg/dose inhaler Inhale 1 Puff as instructed two times a day. RINSE AND GARGLE MOUTH WITH WATER AFTER EACH USE. fluticasone (FLONASE) 50 mcg/actuation nasal spray Use 2 Sprays in each nostril once daily. metoprolol tartrate, short acting, (LOPRESSOR) 25 mg tablet Take 1 tablet by mouth two times a day. fluticasone-salmeterol (ADVAIR DISKUS) 250-50 mcg/dose inhaler Inhale 1 Puff as instructed two times a day. For Asthma flare. Resume Advair 100 after this one completed benzonatate (TESSALON PERLES) 100 mg capsule Take 2 capsules by mouth three times a day as needed. colestipol (COLESTID) 1 gram tablet Take 1 tablet by mouth as needed. verapamil SR (CALAN SR) 240 mg CR tablet Take 1 tablet by mouth daily at bedtime. atorvastatin (LIPITOR) 40 mg tablet Take 1 tablet by mouth once daily. pantoprazole DR (PROTONIX) 20 mg tablet Take 1 tablet by mouth once daily. loratadine (CLARITIN) 10 mg tablet Take 1 tablet by mouth once daily. albuterol HFA (PROVENTIL HFA, VENTOLIN HFA) 90 mcg/actuation inhaler Inhale 2 Puffs as instructed every 6 hours as needed. albuterol (PROVENTIL) 2.5 mg /3 mL (0.083 %) nebulizer solution Use 3 mL via nebulizer every 4 hours as needed for wheezing/shortness of breath. Use over 5-15minutes. apixaban (ELIQUIS) 5 mg tab(s) Take 5 mg by mouth twice daily. Will start when delivered ondansetron orally disintegrating (ZOFRAN ODT) 4 mg disintegrating tablet DISSOLVE 1 TABLET ON THE TONGUE EVERY 6 HOURS NEEDED FOR NAUSEA/VOMITING EPINEPHrine (AUVI-Q) 0.3 mg/0.3 mL auto-injector Inject 0.3 mL intramuscularly as needed. meclizine (ANTIVERT) 25 mg tab Take 1 tablet by mouth every 6 hours as needed (dizziness). Nebulizer NEBULIZER FOR HOME USE. DX: J45.20 No current facility-administered medications for this visit. Review of Systems Objective BP 138/70 Pulse 78 Temp 36.9 ?C (98.5 ?F) Resp 18 Wt 89.4 kg (197 lb) SpO2 99% BMI 31.80 kg/m? Last 5 Encounter Wt Readings: Date: Wt: 07/04/2023 89.4 kg (197 lb) 06/08/2023 91.2 kg (201 lb) 03/19/2023 92.5 kg (204 lb) 03/12/2023 93 kg (205 lb) 02/27/2023 89.5 kg (197 lb 6.4 oz) No waist measurement recorded Estimated body mass index is 31.8 kg/m? as calculated from the following: Height as of 08/10/22: 167.6 cm (5' 6 ). Weight as of this encounter: 89.4 kg (197 lb). Last 5 Encounter BP Readings: Date: BP: 07/04/2023 138/70 06/08/2023 118/64 03/19/2023 136/73 03/12/2023 129/71 02/27/2023 122/72 Physical Exam Constitutional: Appearance: Normal appearance. HENT: Head: Normocephalic. Eyes: Conjunctiva/sclera: Conjunctivae normal. Cardiovascular: Rate and Rhythm: Normal rate and regular rhythm. Heart sounds: Murmur heard. Systolic murmur is present with a grade of 2/6. Pulmonary: Effort: Pulmonary effort is normal. Breath sounds: Normal breath sounds. Musculoskeletal: Right lower leg: No edema. Left lower leg: No edema. Comments: Wears brace for left ankle Skin: General: Skin is warm and dry. Neurological: General: No focal deficit present. Mental Status: She is alert and oriented to person, place, and time. Psychiatric: Mood and Affect: Mood normal. Behavior: Behavior normal. Thought Content: Thought content normal. Judgment: Judgment normal. Labs ordered--will get next week Assessment and Plan Encounter Diagnosis ICD-10-CM 1. Mild persistent asthma without complication J45.30 (more content not included)... [facility] 07-04-2023 History of Present illness Narrative This note was created using [employer]ertter. Subjective Romain Bailey is a 73 year old female. Patient presents with: F/U 6 months SUBJECTIVE: Romain Bailey is a 73 year old year old lady here today for 6 month follow up appointment for review of medical conditions. Stable on current meds. Losing weigh successfully. Not as hungry. Drinking more water to stay hydrated. Water before and after meals. Has tea and lemonade too. 60 ounces of water from her bottle per day. BMs better and urinating better. Dog was sick since I last saw her. Doing better. GI issues. Has HCDPOA . Working on LW. Surrogate Decision makers--Anne-Marie Moise and Yoel (3 children) Friend is her GI provider now. Will follow up with him for colonoscopy screening for colon cancer. PAST MEDICAL HISTORY Diagnosis Date Arthropathy, unspecified, site unspecified Asthma Back pain Calculus of kidney 05/09/2018 Colon polyps 2014 Diverticulitis 2000 Environmental allergies GERD (gastroesophageal reflux disease) Hyperlipidemia lifestyle controlled Hypertension IBS (irritable bowel syndrome) Migraine Obesity Pseudophakia 12/2021 both Current Outpatient Medications Medication Sig metoprolol tartrate, short acting, (LOPRESSOR) 25 mg tablet Take 1 tablet by mouth two times a day. fluticasone-salmeterol (ADVAIR DISKUS) 100-50 mcg/dose inhaler Inhale 1 Puff as instructed two times a day. RINSE AND GARGLE MOUTH WITH WATER AFTER EACH USE. fluticasone (FLONASE) 50 mcg/actuation nasal spray Use 2 Sprays in each nostril once daily. metoprolol tartrate, short acting, (LOPRESSOR) 25 mg tablet Take 1 tablet by mouth two times a day. fluticasone-salmeterol (ADVAIR DISKUS) 250-50 mcg/dose inhaler Inhale 1 Puff as instructed two times a day. For Asthma flare. Resume Advair 100 after this one completed benzonatate (TESSALON PERLES) 100 mg capsule Take 2 capsules by mouth three times a day as needed. colestipol (COLESTID) 1 gram tablet Take 1 tablet by mouth as needed. verapamil SR (CALAN SR) 240 mg CR tablet Take 1 tablet by mouth daily at bedtime. atorvastatin (LIPITOR) 40 mg tablet Take 1 tablet by mouth once daily. pantoprazole DR (PROTONIX) 20 mg tablet Take 1 tablet by mouth once daily. loratadine (CLARITIN) 10 mg tablet Take 1 tablet by mouth once daily. albuterol HFA (PROVENTIL HFA, VENTOLIN HFA) 90 mcg/actuation inhaler Inhale 2 Puffs as instructed every 6 hours as needed. albuterol (PROVENTIL) 2.5 mg /3 mL (0.083 %) nebulizer solution Use 3 mL via nebulizer every 4 hours as needed for wheezing/shortness of breath. Use over 5-15minutes. apixaban (ELIQUIS) 5 mg tab(s) Take 5 mg by mouth twice daily. Will start when delivered ondansetron orally disintegrating (ZOFRAN ODT) 4 mg disintegrating tablet DISSOLVE 1 TABLET ON THE TONGUE EVERY 6 HOURS NEEDED FOR NAUSEA/VOMITING EPINEPHrine (AUVI-Q) 0.3 mg/0.3 mL auto-injector Inject 0.3 mL intramuscularly as needed. meclizine (ANTIVERT) 25 mg tab Take 1 tablet by mouth every 6 hours as needed (dizziness). Nebulizer NEBULIZER FOR HOME USE. DX: J45.20 No current facility-administered medications for this visit. Review of Systems Objective BP 138/70 Pulse 78 Temp 36.9 C (98.5 F) Resp 18 Wt 89.4 kg (197 lb) SpO2 99% BMI 31.80 kg/m Last 5 Encounter Wt Readings: Date: Wt: 07/04/2023 89.4 kg (197 lb) 06/08/2023 91.2 kg (201 lb) 03/19/2023 92.5 kg (204 lb) 03/12/2023 93 kg (205 lb) 02/27/2023 89.5 kg (197 lb 6.4 oz) No waist measurement recorded Estimated body mass index is 31.8 kg/m as calculated from the following: Height as of 08/10/22: 167.6 cm (5' 6 ). Weight as of this encounter: 89.4 kg (197 lb). Last 5 Encounter BP Readings: Date: BP: 07/04/2023 138/70 06/08/2023 118/64 03/19/2023 136/73 03/12/2023 129/71 02/27/2023 122/72 Physical Exam Constitutional: Appearance: Normal appearance. HENT: Head: Normocephalic. Eyes: Conjunctiva/sclera: Conjunctivae normal. Cardiovascular: Rate and Rhythm: Normal rate and regular rhythm. Heart sounds: Murmur heard. Systolic murmur is present with a grade of 2/6. Pulmonary: Effort: Pulmonary effort is normal. Breath sounds: Normal breath sounds. Musculoskeletal: Right lower leg: No edema. Left lower leg: No edema. Comments: Wears brace for left ankle Skin: General: Skin is warm and dry. Neurological: General: No focal deficit present. Mental Status: She is alert and oriented to person, place, and time. Psychiatric: Mood and Affect: Mood normal. Behavior: Behavior normal. Thought Content: Thought content normal. Judgment: Judgment normal. Labs ordered--will get next week Assessment and Plan Encounter Diagnosis ICD-10-CM 1. Mild persistent asthma without complication J45.30 albuterol HFA (PROVENTIL HFA, VENTOLIN HFA) 90 mcg/actuation inhaler Stable on meds. Albuterol just as needed 2. Allergic rhinitis, unspecified seasonality, unspecified trigger J30.9 Flared up now. Claritin daily and Flonase daily 3. Essential hypertension I10 Well controlled. Stay on same med management 4. Paroxysmal atrial fibrillation (HCC) I48.0 In regular rhythm now 5. 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 Patient involved in shared decision making for management of medical issues. History and medications reviewed. Epic updated as needed Refills and/or prescriptions taken care of and meds adjusted as indicated after reviewed history, exam and labs. Health Maintenance reviewed. Updated record and/or ordered tests as recorded. Encouraged on efforts at healthy diet and regular exercise and adequate sleep. Needs to keep working on diet and exercise with lifestyle changes for effective weight loss as well as prevention of DM, and control of BP and lipids. Continues to do crafts from [place]. Fatemeh Rogers MD documented in this encounter [facility] 07-04-2023 Note Patient Outreach (IN [facility]MM[facility]) ROMAIN BAILEY ([id number]) 1950 F T Date Time Provider Department 07/04/23 FATEMEH ROGERS INTMM[facility] During your visit today, we recorded the following information about you: Allergies As of Date: 07/04/2023 Noted Allergy Reaction ADHESIVE TAPE (ROSINS) 12/05/2016 2 - Rash BACTRIM DS (SULFAMETHOXAZOLE-TRIM*12/29/2014 10 - Anaphylaxis Comments: Difficulty breathing, fever, chills BEE STING 08/28/2012 10 - Anaphylaxis DARVON (PROPOXYPHENE HCL) 05/15/2007 INFLUENZA VIRUS VACCINES 01/07/2019 14 - Other: See Comments Comments: Chest tightness, arm swelling. Date Reviewed: 07/04/2023 Reviewed by: Franci Main LPN - Fully Assessed Visit Diagnosis:Encounter for screening mammogram for breast cancer [Z12.31] Order(s):[facility] SCREENING [[id number]] Order #: [id number] FUTURE Prescriptions as of 07/09/2023 - albuterol HFA (PROVENTIL HFA, VENTOLIN HFA) 90 mcg/actuation inhaler Inhale 2 Puffs as instructed every 6 hours as needed. - EPINEPHrine (AUVI-Q) 0.3 mg/0.3 mL auto-injector Inject 0.3 mL intramuscularly as needed. - metoprolol tartrate, short acting, (LOPRESSOR) 25 mg tablet Take 1 tablet by mouth two times a day. - fluticasone-salmeterol (ADVAIR DISKUS) 100-50 mcg/dose inhaler Inhale 1 Puff as instructed two times a day. RINSE AND GARGLE MOUTH WITH WATER AFTER EACH USE. - fluticasone (FLONASE) 50 mcg/actuation nasal spray Use 2 Sprays in each nostril once daily. - metoprolol tartrate, short acting, (LOPRESSOR) 25 mg tablet Take 1 tablet by mouth two times a day. - fluticasone-salmeterol (ADVAIR DISKUS) 250-50 mcg/dose inhaler Inhale 1 Puff as instructed two times a day. For Asthma flare. Resume Advair 100 after this one completed - benzonatate (TESSALON PERLES) 100 mg capsule Take 2 capsules by mouth three times a day as needed. - colestipol (COLESTID) 1 gram tablet Take 1 tablet by mouth as needed. - verapamil SR (CALAN SR) 240 mg CR tablet Take 1 tablet by mouth daily at bedtime. - atorvastatin (LIPITOR) 40 mg tablet Take 1 tablet by mouth once daily. - pantoprazole DR (PROTONIX) 20 mg tablet Take 1 tablet by mouth once daily. - loratadine (CLARITIN) 10 mg tablet Take 1 tablet by mouth once daily. - albuterol (PROVENTIL) 2.5 mg /3 mL (0.083 %) nebulizer solution Use 3 mL via nebulizer every 4 hours as needed for wheezing/shortness of breath. Use over 5-15minutes. - apixaban (ELIQUIS) 5 mg tab(s) Take 5 mg by mouth twice daily. Will start when delivered - ondansetron orally disintegrating (ZOFRAN ODT) 4 mg disintegrating tablet DISSOLVE 1 TABLET ON THE TONGUE EVERY 6 HOURS NEEDED FOR NAUSEA/VOMITING - meclizine (ANTIVERT) 25 mg tab Take 1 tablet by mouth every 6 hours as needed (dizziness). - Nebulizer NEBULIZER FOR HOME USE. DX: J45.20 Meds Comments as of 06/10/2021: August 26, 2019 The patient states the Warfarin dose is adjusted based on blood work. Lotus Sosa RN 08/19/2019: Patient is not taking Eliquis. currently on Loratadine, doxycycline, magnesium supplement. Lubna Armstrong RN 09/17/2019 8:20 AM Reviewed these new meds. Methylprednisilone and Macrobid. Do Ortiz, RN Problem List As Of Date 07/04/2023 Noted Resolved Sebaceous cyst [L72.3] 05/15/2007 04/16/2012 Environmental allergies [Z91.09] Asthma [J45.909] Arthropathy, unspecified, site unspecified [M12* Essential hypertension [I10] IBS (irritable bowel syndrome) [K58.9] GERD (gastroesophageal reflux disease) [K21.9] Migraine [G43.909] Diverticulitis [K57.92] 12/10/2020 Hyperlipidemia, mixed [E78.2] Fracture of finger, middle or proximal phalanx,*08/28/2012 12/10/2020 History of colon polyps [Z86.010] Chronic pain of right knee [M25.561, G89.29] 12/13/2015 Primary osteoarthritis of right knee [M17.11] 12/13/2015 BPPV (benign paroxysmal positional vertigo) [H8*04/04/2016 Bee sting allergy [Z91.030] 12/11/2017 Bilateral low back pain with bilateral sciatica*12/27/2017 Calculus of kidney [N20.0] 05/09/2018 LLQ pain [R10.32] 05/27/2018 History of TIA (transient ischemic attack) [Z86*07/29/2018 Dry skin [L85.3] 09/03/2018 Atrial fibrillation with rapid ventricular resp*12/30/2018 01/01/2023 Sacroiliitis (HCC) [M46.1] 04/14/2022 History of asthma [Z87.09] 11/16/2022 Acquired stenosis of nasolacrimal duct, right [*11/30/2022 Unspecified dacryocystitis of right lacrimal pa*11/30/2022 Unspecified injury of right lower leg, initial *01/31/2022 Chest pain [R07.9] 01/01/2023 Contusion of left wrist [S60.212A] 01/01/2023 Contusion of knee, left [S80.02XA] 01/01/2023 Contusion of elbow [S50.00XA] 11/09/2022 Colitis [K52.9] 12/08/2021 Encounter Status:Closed by MARCY, PRODUSER on 07/09/23 [facility] 06-15-2023 Telephone encounter Note The following approved medication requests have been transmitted electronically. Requested Prescriptions Signed Prescriptions Disp Refills metoprolol tartrate, short acting, (LOPRESSOR) 25 mg tablet 180 tablet 3 Sig: Take 1 tablet by mouth two times a day. Authorizing Provider: FATEMEH ROGERS MD [facility] 06-15-2023 Miscellaneous Notes The following approved medication requests have been transmitted electronically. Requested Prescriptions Signed Prescriptions Disp Refills metoprolol tartrate, short acting, (LOPRESSOR) 25 mg tablet 180 tablet 3 Sig: Take 1 tablet by mouth two times a day. Authorizing Provider: FATEMEH ROGERS MD Patient asking pcp to send Rx to [facility]. States she is trying to establish with mail order pharmacy. Patient has been identified by name and date of : Yes, Provider Nicole Date 06-14-23 Time 12:03 pm Patient phones for refill(s): Requested Prescriptions Pending Prescriptions Disp Refills metoprolol tartrate, short acting, (LOPRESSOR) 25 mg tablet 180 tablet 3 Sig: Take 1 tablet by mouth two times a day. Date of last office visit in primary care: 06/08/2023 Date of next office visit in primary care: 07/04/2023 Please advise. Thank you. Narinder Jacques RN. documented in this encounter [facility] 06-14-2023 Telephone encounter Note Patient asking pcp to send Rx to [facility]. States she is trying to establish with mail order pharmacy. Patient has been identified by name and date of : Yes, Provider Nicole Date 06-14-23 Time 12:03 pm Patient phones for refill(s): Requested Prescriptions Pending Prescriptions Disp Refills metoprolol tartrate, short acting, (LOPRESSOR) 25 mg tablet 180 tablet 3 Sig: Take 1 tablet by mouth two times a day. Date of last office visit in primary care: 06/08/2023 Date of next office visit in primary care: 07/04/2023 Please advise. Thank you. Narinder Jacques RN. [facility] 06-08-2023 Note HNO ID: [id number] Author: FATEMEH ROGERS MD Service: ? Author Type: Physician Type: Progress Notes Filed: 07/08/2023 23:45 Note Text: Transitional Care Management TCM Eligibility Documentation The following information was gathered during patient outreach 05/31/2023 05/31/2023 Date of Outreach: Outreach Attempt 1: Contact Made Contact Not Made Date of Discharge 05/30/2023 05/30/2023 SUMMARY: -Pt discharged from [facility] on 05/30/2023. -Admitted for: Discharge Diagnosis (1) Ischemic colitis: Status: Acute Code(s): K55.9 - Vascular disorder of intestine, unspecified (2) GI bleed: Status: Acute Code(s): K92.2 - Gastrointestinal hemorrhage, unspecified Qualifiers: GI bleed type/associated pathology: unspecified gastrointestinal hemorrhage type Qualified Code(s): K92.2 - Gastrointestinal hemorrhage, unspecified Plan #Acute lower GI bleed * Thought to be due to ischemic colitis. CT of the abdomen and pelvis showed evidence of ischemic colitis. * Eliquis currently on hold. On PPI. Tolerating clear liquid diet. Advance to transitional diet today. * On Cipro and Flagyl. General surgery on board. #Acute blood loss anemia due to GI bleed: Hemoglobin today is 8. Monitor closely and transfuse if hemoglobin falls less than 7. #Hypokalemia: Resolved. Potassium is 3.7 today. #Paroxysmal A-fib: Eliquis currently on hold. On metoprolol. Per general surgery, resume Eliquis tonight. #Hypertension: On metoprolol and verapamil #Hyperlipidemia: on statin. #COPD: Not in exacerbation. Breathing treatments bronchodilators. # DVT Prophylaxis: SCDs ' Disposition: For discharge tomorrow if she does not bleed after resuming Eliquis. Medications at Discharge Home Medications epinephrine 0.3 mg/0.3 mL injection, auto-injector 0.3 mg IM X1 ALLERGIC REACTIONS 05/04/13 loratadine 10 mg tablet 10 mg PO DAILY ALLERGIES 05/04/13 albuterol sulfate 90 mcg/actuation aerosol inhaler 2 puff inhalation Q6H PRN SobAND/Or Wheezing 12/26/15 meclizine 25 mg tablet 25 mg PO Q6H PRN Dizziness 03/28/16 fluticasone propionate 50 mcg/actuation nasal spray,suspension 2 spray NASAL DAILY PRN Allergies 07/02/18 albuterol sulfate 2.5 mg/3 mL (0.083 %) solution for nebulization 2.5 mg inhalation Q4H PRN Sob AND/Or Wheezing 12/04/18 verapamil 240 mg tablet,extended release 240 mg PO DAILY BP #90 tabs 12/30/19 atorvastatin 40 mg tablet 40 mg PO DAILY cholesterol 11/18/21 dicyclomine 10 mg capsule 10 mg PO BID PRN abdominal discomfort #30 caps 02/02/22 pantoprazole 40 mg tablet,delayed release See Rx Instructions .Route .COMPLEX stomach #90 tabs 06/12/22 apixaban 5 mg tablet (Eliquis) 5 mg PO BID thinner #180 tabs 09/15/22 colestipol 1 gram tablet 1 g PO BID med 30 days #60 tabs 10/25/22 metoprolol tartrate 25 mg tablet 25 mg PO BID 30 days #60 tabs 02/20/23 Provider Documentation Romain Bailey is a 73 year old female here today for a follow up from recent hospitalization. I have reviewed the patient's hospital course including discharge summary, discharge medications , and follow up needs with the patient and any family members present at today's visit. HPI Patient presents with: Hospital F/U SUBJECTIVE: Romain Bailey is a 73 year old year old lady here today for [facility] hospital follow up appointment for review of medical conditions. Subjective The patient was admitted to the hospital on May 25 and discharged on May 29 after a diagnosis of acute ischemic colitis and anemia. She was seen by Dr. Aleman and s follow up next week. She required blood transfusions during the hospitalization. The patient reports no current blood in stools or abdominal pain. The patient began having bowel movements on Sunday evening after being discharged from the hospital, and has been experiencing more regular bowel movements since Sunday. The stools are mostly normal, with some being a little firm. The patient has been consuming between 60 and 90 ounces of water and other liquids daily to prevent stools from getting too hard. The patient reports feeling tired but not lightheaded or dizzy. The patient has been maintaining a bland diet of chicken, pasta, and scrambled eggs. The patient reports mild tenderness in the lower abdomen but no severe pain. The patient also reports swelling in the legs, particularly on the left side, which is managed with support stockings. Noted that she was tired from her own illness but also from her dog developing similar issues that she'd had. Dog is doing better. PAST MEDICAL HISTORY Diagnosis Date Arthropathy, unspecified, site unspecified Asthma Back pain Calculus of kidney 05/09/2018 Colon polyps 2014 Diverticulitis 2000 Environmental allergies GERD (gastroesophageal reflux disease) Hyperlipidemia lifestyle controlled Hypertension IBS (irritable bowel syndrome) Migraine Obesity Pseudophakia 12/2021 both Current Outpatient Medi (more content not included)... [facility] 06-08-2023 History of Present illness Narrative Transitional Care Management TCM Eligibility Documentation The following information was gathered during patient outreach 05/31/2023 05/31/2023 Date of Outreach: Outreach Attempt 1: Contact Made Contact Not Made Date of Discharge 05/30/2023 05/30/2023 SUMMARY: -Pt discharged from [facility] on 05/30/2023. -Admitted for: Discharge Diagnosis (1) Ischemic colitis: Status: Acute Code(s): K55.9 - Vascular disorder of intestine, unspecified (2) GI bleed: Status: Acute Code(s): K92.2 - Gastrointestinal hemorrhage, unspecified Qualifiers: GI bleed type/associated pathology: unspecified gastrointestinal hemorrhage type Qualified Code(s): K92.2 - Gastrointestinal hemorrhage, unspecified Plan #Acute lower GI bleed * Thought to be due to ischemic colitis. CT of the abdomen and pelvis showed evidence of ischemic colitis. * Eliquis currently on hold. On PPI. Tolerating clear liquid diet. Advance to transitional diet today. * On Cipro and Flagyl. General surgery on board. #Acute blood loss anemia due to GI bleed: Hemoglobin today is 8. Monitor closely and transfuse if hemoglobin falls less than 7. #Hypokalemia: Resolved. Potassium is 3.7 today. #Paroxysmal A-fib: Eliquis currently on hold. On metoprolol. Per general surgery, resume Eliquis tonight. #Hypertension: On metoprolol and verapamil #Hyperlipidemia: on statin. #COPD: Not in exacerbation. Breathing treatments bronchodilators. # DVT Prophylaxis: SCDs ' Disposition: For discharge tomorrow if she does not bleed after resuming Eliquis. Medications at Discharge Home Medications epinephrine 0.3 mg/0.3 mL injection, auto-injector 0.3 mg IM X1 ALLERGIC REACTIONS 05/04/13 loratadine 10 mg tablet 10 mg PO DAILY ALLERGIES 05/04/13 albuterol sulfate 90 mcg/actuation aerosol inhaler 2 puff inhalation Q6H PRN Sob&/Or Wheezing 12/26/15 meclizine 25 mg tablet 25 mg PO Q6H PRN Dizziness 03/28/16 fluticasone propionate 50 mcg/actuation nasal spray,suspension 2 spray NASAL DAILY PRN Allergies 07/02/18 albuterol sulfate 2.5 mg/3 mL (0.083 %) solution for nebulization 2.5 mg inhalation Q4H PRN Sob &/Or Wheezing 12/04/18 verapamil 240 mg tablet,extended release 240 mg PO DAILY BP #90 tabs 12/30/19 atorvastatin 40 mg tablet 40 mg PO DAILY cholesterol 11/18/21 dicyclomine 10 mg capsule 10 mg PO BID PRN abdominal discomfort #30 caps 02/02/22 pantoprazole 40 mg tablet,delayed release See Rx Instructions .Route .COMPLEX stomach #90 tabs 06/12/22 apixaban 5 mg tablet (Eliquis) 5 mg PO BID thinner #180 tabs 09/15/22 colestipol 1 gram tablet 1 g PO BID med 30 days #60 tabs 10/25/22 metoprolol tartrate 25 mg tablet 25 mg PO BID 30 days #60 tabs 02/20/23 Provider Documentation Romain Bailey is a 73 year old female here today for a follow up from recent hospitalization. I have reviewed the patient's hospital course including discharge summary, discharge medications , and follow up needs with the patient and any family members present at today's visit. HPI Patient presents with: Hospital F/U SUBJECTIVE: Romain Bailey is a 73 year old year old lady here today for [facility] hospital follow up appointment for review of medical conditions. Subjective The patient was admitted to the hospital on May 25 and discharged on May 29 after a diagnosis of acute ischemic colitis and anemia. She was seen by Dr. Aleman and s follow up next week. She required blood transfusions during the hospitalization. The patient reports no current blood in stools or abdominal pain. The patient began having bowel movements on Sunday evening after being discharged from the hospital, and has been experiencing more regular bowel movements since Sunday. The stools are mostly normal, with some being a little firm. The patient has been consuming between 60 and 90 ounces of water and other liquids daily to prevent stools from getting too hard. The patient reports feeling tired but not lightheaded or dizzy. The patient has been maintaining a bland diet of chicken, pasta, and scrambled eggs. The patient reports mild tenderness in the lower abdomen but no severe pain. The patient also reports swelling in the legs, particularly on the left side, which is managed with support stockings. Noted that she was tired from her own illness but also from her dog developing similar issues that she'd had. Dog is doing better. PAST MEDICAL HISTORY Diagnosis Date Arthropathy, unspecified, site unspecified Asthma Back pain Calculus of kidney 05/09/2018 Colon polyps 2014 Diverticulitis 2000 Environmental allergies GERD (gastroesophageal reflux disease) Hyperlipidemia lifestyle controlled Hypertension IBS (irritable bowel syndrome) Migraine Obesity Pseudophakia 12/2021 both Current Outpatient Medications Medication Sig furosemide (LASIX) 20 mg tablet Take 1 tablet by mouth once daily. fluticasone (FLONASE) 50 mcg/actuation nasal spray Use 2 Sprays in each nostril once daily. metoprolol tartrate, short acting, (LOPRESSOR) 25 mg tablet Take 1 tablet by mouth two times a day. fluticasone-salmeterol (ADVAIR DISKUS) 250-50 mcg/dose inhaler Inhale 1 Puff as instructed two times a day. For Asthma flare. Resume Advair 100 after this one completed benzonatate (TESSALON PERLES) 100 mg capsule Take 2 capsules by mouth three times a day as needed. colestipol (COLESTID) 1 gram tablet Take 1 tablet by mouth as needed. verapamil SR (CALAN SR) 240 mg CR tablet Take 1 tablet by mouth daily at bedtime. atorvastatin (LIPITOR) 40 mg tablet Take 1 tablet by mouth once daily. pantoprazole DR (PROTONIX) 20 mg tablet Take 1 tablet by mouth once daily. fluticasone-salmeterol (ADVAIR DISKUS) 100-50 mcg/dose inhaler Inhale 1 Puff as instructed twice daily. RINSE AND GARGLE MOUTH WITH WATER AFTER EACH USE. loratadine (CLARITIN) 10 mg tablet Take 1 tablet by mouth once daily. albuterol HFA (PROVENTIL HFA, VENTOLIN HFA) 90 mcg/actuation inhaler Inhale 2 Puffs as instructed every 6 hours as needed. albuterol (PROVENTIL) 2.5 mg /3 mL (0.083 %) nebulizer solution Use 3 mL via nebulizer every 4 hours as needed for wheezing/shortness of breath. Use over 5-15minutes. apixaban (ELIQUIS) 5 mg tab(s) Take 5 mg by mouth twice daily. Will start when delivered ondansetron orally disintegrating (ZOFRAN ODT) 4 mg disintegrating tablet DISSOLVE 1 TABLET ON THE TONGUE EVERY 6 HOURS NEEDED FOR NAUSEA/VOMITING EPINEPHrine (AUVI-Q) 0.3 mg/0.3 mL auto-injector Inject 0.3 mL intramuscularly as needed. meclizine (ANTIVERT) 25 mg tab Take 1 tablet by mouth every 6 hours as needed (dizziness). Nebulizer NEBULIZER FOR HOME USE. DX: J45.20 No current facility-administered medications for this visit. Review of Systems BP 104/58 (BP Site: Left Arm, BP Position: Sitting, BP Cuff Size: Large Adult) Pulse 96 Temp 36.8 C (98.3 F) (Tympanic) Resp 18 Wt 91.2 kg (201 lb) BMI 32.44 kg/m Last 5 Encounter Wt Readings: Date: Wt: 06/08/2023 91.2 kg (201 lb) 03/19/2023 92.5 kg (204 lb) 03/12/2023 93 kg (205 lb) 02/27/2023 89.5 kg (197 lb 6.4 oz) 02/10/2023 93.6 kg (206 lb 6.4 oz) No waist measurement recorded Estimated body mass index is 32.44 kg/m as calculated from the following: Height as of 08/10/22: 167.6 cm (5' 6 ). Weight as of this encounter: 91.2 kg (201 lb). Last 5 Encounter BP Readings: Date: BP: 06/08/2023 104/58 03/19/2023 136/73 03/12/2023 129/71 02/27/2023 122/72 02/10/2023 134/76 Physical Exam Constitutional: Appearance: Normal appearance. HENT: Head: Normocephalic. Eyes: Conjunctiva/sclera: Conjunctivae normal. Cardiovascular: Rate and Rhythm: Normal rate and regular rhythm. Heart sounds: Normal heart sounds. Pulmonary: Effort: Pulmonary effort is normal. Breath sounds: Normal breath sounds. Abdominal: General: There is no distension. Tenderness: There is abdominal tenderness (mild lower abdominal tenderness). Musculoskeletal: Right lower leg: Edema (1+ pitting) present. Left lower leg: Edema (1 to 2+--more above the ankle brace) present. Skin: General: Skin is warm and dry. Neurological: General: No focal deficit present. Mental Status: She is alert and oriented to person, place, and time. Psychiatric: Attention and Perception: Attention and perception normal. Mood and Affect: Mood and affect normal. Speech: Speech normal. Behavior: Behavior normal. Thought Content: Thought content normal. Cognition and Memory: Cognition normal. Judgment: Judgment normal. - Imaging results: A CT scan showed acute ischemic colitis. Encounter Diagnosis ICD-10-CM 1. Ischemic colitis (HCC) K55.9 2. Mild persistent asthma with acute exacerbation J45.31 fluticasone-salmeterol (ADVAIR DISKUS) 100-50 mcg/dose inhaler 3. Essential hypertension I10 4. Paroxysmal atrial fibrillation (HCC) I48.0 Stable on current meds Patient here for TCM from hospitalization as noted in HPI. Assessment - Acute ischemic colitis with no recurrent of symptoms -Anemia --Treated with transfusions - Paroxysmal atrial fibrillation--stable - Low potassium (corrected) - Lower abdomen tenderness - Leg swelling: and recurrent chronic; treated with Lasix in the past issue. Not needing Lasix now. Plan - Continue drinking 60 to 90 ounces of water and other liquids daily - Continue eating a bland diet - Follow up with Dr. Aleman on June 12--she states that he plans to do labs for follow up on anemia - Will resume wearing compression stockings that she bought from [employer]. - Discontinued from med list: Lasix 20 mg daily as swelling has improved in course of therapy completed. - Continue with current medications, including Eliquis, Lipitor, Advair, Protonix, and Verapamil - Refill Advair prescription through [facility] - Monitor blood pressure and adjust medication if necessary; monitor for issues with low blood pressure and adjust medications as needed. Blood pressure did improve on recheck. - If swelling in legs persists, consider additional measures such as elevating legs -- Will decde closer to May appointment whether wants to get labs as ordered. Note drafted by RECESS.. Note reviewed, edited, and signed by the visit provider. documented in this encounter [facility] 05-31-2023 Note HNO ID: [id number] Author: EDNA PLUMMER RN Service: ? Author Type: Registered Nurse Type: Progress Notes Filed: 05/31/2023 13:54 Note Text: TRANSITION CARE MANAGEMENT (TCM) INITIAL CONTACT Contact Clerk Outreach Provider Action/FYI: Follow up appointment with Dr. Aleman 06/13/2023 Initial contact with patient post discharge, spoke to patient. Patient identified by name and . TRANSITION CARE MANAGEMENT INITIAL OUTREACH DOCUMENTATION: 05/31/2023 Date of Outreach: Outreach Attempt 1: Contact Not Made Date of Discharge 05/30/2023 SUMMARY: -Pt discharged from [facility] on 05/30/2023. -Admitted for: Discharge Diagnosis (1) Ischemic colitis: Status: Acute Code(s): K55.9 - Vascular disorder of intestine, unspecified (2) GI bleed: Status: Acute Code(s): K92.2 - Gastrointestinal hemorrhage, unspecified Qualifiers: GI bleed type/associated pathology: unspecified gastrointestinal hemorrhage type Qualified Code(s): K92.2 - Gastrointestinal hemorrhage, unspecified Plan #Acute lower GI bleed * Thought to be due to ischemic colitis. CT of the abdomen and pelvis showed evidence of ischemic colitis. * Eliquis currently on hold. On PPI. Tolerating clear liquid diet. Advance to transitional diet today. * On Cipro and Flagyl. General surgery on board. #Acute blood loss anemia due to GI bleed: Hemoglobin today is 8. Monitor closely and transfuse if hemoglobin falls less than 7. #Hypokalemia: Resolved. Potassium is 3.7 today. #Paroxysmal A-fib: Eliquis currently on hold. On metoprolol. Per general surgery, resume Eliquis tonight. #Hypertension: On metoprolol and verapamil #Hyperlipidemia: on statin. #COPD: Not in exacerbation. Breathing treatments bronchodilators. # DVT Prophylaxis: SCDs ' Disposition: For discharge tomorrow if she does not bleed after resuming Eliquis. Medications at Discharge Home Medications epinephrine 0.3 mg/0.3 mL injection, auto-injector 0.3 mg IM X1 ALLERGIC REACTIONS 05/04/13 loratadine 10 mg tablet 10 mg PO DAILY ALLERGIES 05/04/13 albuterol sulfate 90 mcg/actuation aerosol inhaler 2 puff inhalation Q6H PRN SobAND/Or Wheezing 12/26/15 meclizine 25 mg tablet 25 mg PO Q6H PRN Dizziness 03/28/16 fluticasone propionate 50 mcg/actuation nasal spray,suspension 2 spray NASAL DAILY PRN Allergies 07/02/18 albuterol sulfate 2.5 mg/3 mL (0.083 %) solution for nebulization 2.5 mg inhalation Q4H PRN Sob AND/Or Wheezing 12/04/18 verapamil 240 mg tablet,extended release 240 mg PO DAILY BP #90 tabs 12/30/19 atorvastatin 40 mg tablet 40 mg PO DAILY cholesterol 11/18/21 dicyclomine 10 mg capsule 10 mg PO BID PRN abdominal discomfort #30 caps 02/02/22 pantoprazole 40 mg tablet,delayed release See Rx Instructions .Route .COMPLEX stomach #90 tabs 06/12/22 apixaban 5 mg tablet (Eliquis) 5 mg PO BID thinner #180 tabs 09/15/22 colestipol 1 gram tablet 1 g PO BID med 30 days #60 tabs 10/25/22 metoprolol tartrate 25 mg tablet 25 mg PO BID 30 days #60 tabs 02/20/23 Hospital Course Do you have a hospital follow up appointment with your PCP? Appointment on 06/08/[address] Rogers. Yes. Remind patient of appointment date, time, and location. If not within 14 calendar days of discharge - please reschedule accordingly. MEDICATIONS: Many patients have questions or concerns about their medications once they are home. Were you prescribed any new medications? No Were you told to hold any medications? No Were any of your medications discontinued? No Do you have any questions about getting or taking your medications? No Your discharge instructions/After visit Summary (AVS) are important in guiding you through the recovery process. Is there anything I might help you understand? No Do you have all the necessary equipment and supplies at home? Yes Medical records from recent hospitalization: [facility] 05-31-2023 History of Present illness Narrative TRANSITION CARE MANAGEMENT (TCM) INITIAL CONTACT Contact Clerk Outreach Provider Action/FYI: Follow up appointment with Dr. Aleman 06/13/2023 Initial contact with patient post discharge, spoke to patient. Patient identified by name and . TRANSITION CARE MANAGEMENT INITIAL OUTREACH DOCUMENTATION: 05/31/2023 Date of Outreach: Outreach Attempt 1: Contact Not Made Date of Discharge 05/30/2023 SUMMARY: -Pt discharged from [facility] on 05/30/2023. -Admitted for: Discharge Diagnosis (1) Ischemic colitis: Status: Acute Code(s): K55.9 - Vascular disorder of intestine, unspecified (2) GI bleed: Status: Acute Code(s): K92.2 - Gastrointestinal hemorrhage, unspecified Qualifiers: GI bleed type/associated pathology: unspecified gastrointestinal hemorrhage type Qualified Code(s): K92.2 - Gastrointestinal hemorrhage, unspecified Plan #Acute lower GI bleed * Thought to be due to ischemic colitis. CT of the abdomen and pelvis showed evidence of ischemic colitis. * Eliquis currently on hold. On PPI. Tolerating clear liquid diet. Advance to transitional diet today. * On Cipro and Flagyl. General surgery on board. #Acute blood loss anemia due to GI bleed: Hemoglobin today is 8. Monitor closely and transfuse if hemoglobin falls less than 7. #Hypokalemia: Resolved. Potassium is 3.7 today. #Paroxysmal A-fib: Eliquis currently on hold. On metoprolol. Per general surgery, resume Eliquis tonight. #Hypertension: On metoprolol and verapamil #Hyperlipidemia: on statin. #COPD: Not in exacerbation. Breathing treatments bronchodilators. # DVT Prophylaxis: SCDs ' Disposition: For discharge tomorrow if she does not bleed after resuming Eliquis. Medications at Discharge Home Medications epinephrine 0.3 mg/0.3 mL injection, auto-injector 0.3 mg IM X1 ALLERGIC REACTIONS 05/04/13 loratadine 10 mg tablet 10 mg PO DAILY ALLERGIES 05/04/13 albuterol sulfate 90 mcg/actuation aerosol inhaler 2 puff inhalation Q6H PRN Sob&/Or Wheezing 12/26/15 meclizine 25 mg tablet 25 mg PO Q6H PRN Dizziness 03/28/16 fluticasone propionate 50 mcg/actuation nasal spray,suspension 2 spray NASAL DAILY PRN Allergies 07/02/18 albuterol sulfate 2.5 mg/3 mL (0.083 %) solution for nebulization 2.5 mg inhalation Q4H PRN Sob &/Or Wheezing 12/04/18 verapamil 240 mg tablet,extended release 240 mg PO DAILY BP #90 tabs 12/30/19 atorvastatin 40 mg tablet 40 mg PO DAILY cholesterol 11/18/21 dicyclomine 10 mg capsule 10 mg PO BID PRN abdominal discomfort #30 caps 02/02/22 pantoprazole 40 mg tablet,delayed release See Rx Instructions .Route .COMPLEX stomach #90 tabs 06/12/22 apixaban 5 mg tablet (Eliquis) 5 mg PO BID thinner #180 tabs 09/15/22 colestipol 1 gram tablet 1 g PO BID med 30 days #60 tabs 10/25/22 metoprolol tartrate 25 mg tablet 25 mg PO BID 30 days #60 tabs 02/20/23 Hospital Course Do you have a hospital follow up appointment with your PCP? Appointment on 06/08/[address] Rogers. Yes. Remind patient of appointment date, time, and location. If not within 14 calendar days of discharge - please reschedule accordingly. MEDICATIONS: Many patients have questions or concerns about their medications once they are home. Were you prescribed any new medications? No Were you told to hold any medications? No Were any of your medications discontinued? No Do you have any questions about getting or taking your medications? No Your discharge instructions/After visit Summary (AVS) are important in guiding you through the recovery process. Is there anything I might help you understand? No Do you have all the necessary equipment and supplies at home? Yes Medical records from recent hospitalization: Epic Message left for pt to return call to a nurse to complete TCM note. documented in this encounter [facility] 05-31-2023 Note HNO ID: [id number] Author: RASHMI LLAMAS LPN Service: ? Author Type: LICENSED NURSE Type: Progress Notes Filed: 05/31/2023 13:54 Note Text: Message left for pt to return call to a nurse to complete TCM note. [facility] 05-31-2023 Note Patient Outreach (IN TMWS) ROMAIN BAILEY ([id number]) 1950 F CHT Date Time Provider Department 4/4/24 FATEMEH ROGERS During your visit today, we recorded the following information about you: Rashmi Llamas LPN 05/31/2023 1:54 PM Signed Message left for pt to return call to a nurse to complete TCM note. Edna Plummer RN 05/31/2023 1:54 PM Signed TRANSITION CARE MANAGEMENT (TCM) INITIAL CONTACT Contact Clerk Outreach Provider Action/FYI: Follow up appointment with Dr. Aleman 06/13/2023 Initial contact with patient post discharge, spoke to patient. Patient identified by name and . TRANSITION CARE MANAGEMENT INITIAL OUTREACH DOCUMENTATION: 05/31/2023 Date of Outreach: Outreach Attempt 1: Contact Not Made Date of Discharge 05/30/2023 SUMMARY: -Pt discharged from [facility] on 05/30/2023. -Admitted for: Discharge Diagnosis (1) Ischemic colitis: Status: Acute Code(s): K55.9 - Vascular disorder of intestine, unspecified (2) GI bleed: Status: Acute Code(s): K92.2 - Gastrointestinal hemorrhage, unspecified Qualifiers: GI bleed type/associated pathology: unspecified gastrointestinal hemorrhage type Qualified Code(s): K92.2 - Gastrointestinal hemorrhage, unspecified Plan #Acute lower GI bleed * Thought to be due to ischemic colitis. CT of the abdomen and pelvis showed evidence of ischemic colitis. * Eliquis currently on hold. On PPI. Tolerating clear liquid diet. Advance to transitional diet today. * On Cipro and Flagyl. General surgery on board. #Acute blood loss anemia due to GI bleed: Hemoglobin today is 8. Monitor closely and transfuse if hemoglobin falls less than 7. #Hypokalemia: Resolved. Potassium is 3.7 today. #Paroxysmal A-fib: Eliquis currently on hold. On metoprolol. Per general surgery, resume Eliquis tonight. #Hypertension: On metoprolol and verapamil #Hyperlipidemia: on statin. #COPD: Not in exacerbation. Breathing treatments bronchodilators. # DVT Prophylaxis: SCDs ' Disposition: For discharge tomorrow if she does not bleed after resuming Eliquis. Medications at Discharge Home Medications epinephrine 0.3 mg/0.3 mL injection, auto-injector 0.3 mg IM X1 ALLERGIC REACTIONS 05/04/13 loratadine 10 mg tablet 10 mg PO DAILY ALLERGIES 05/04/13 albuterol sulfate 90 mcg/actuation aerosol inhaler 2 puff inhalation Q6H PRN SobAND/Or Wheezing 12/26/15 meclizine 25 mg tablet 25 mg PO Q6H PRN Dizziness 03/28/16 fluticasone propionate 50 mcg/actuation nasal spray,suspension 2 spray NASAL DAILY PRN Allergies 07/02/18 albuterol sulfate 2.5 mg/3 mL (0.083 %) solution for nebulization 2.5 mg inhalation Q4H PRN Sob AND/Or Wheezing 12/04/18 verapamil 240 mg tablet,extended release 240 mg PO DAILY BP #90 tabs 12/30/19 atorvastatin 40 mg tablet 40 mg PO DAILY cholesterol 11/18/21 dicyclomine 10 mg capsule 10 mg PO BID PRN abdominal discomfort #30 caps 02/02/22 pantoprazole 40 mg tablet,delayed release See Rx Instructions .Route .COMPLEX stomach #90 tabs 06/12/22 apixaban 5 mg tablet (Eliquis) 5 mg PO BID thinner #180 tabs 09/15/22 colestipol 1 gram tablet 1 g PO BID med 30 days #60 tabs 10/25/22 metoprolol tartrate 25 mg tablet 25 mg PO BID 30 days #60 tabs 02/20/23 Hospital Course Do you have a hospital follow up appointment with your PCP? Appointment on 06/08/[address] Rogers. Yes. Remind patient of appointment date, time, and location. If not within 14 calendar days of discharge - please reschedule accordingly. MEDICATIONS: Many patients have questions or concerns about their medications once they are home. Were you prescribed any new medications? No Were you told to hold any medications? No Were any of your medications discontinued? No Do you have any questions about getting or taking your medications? No Your discharge instructions/After visit Summary (AVS) are important in guiding you through the recovery process. Is there anything I might help you understand? No Do you have all the necessary equipment and supplies at home? Yes Medical records from recent hospitalization: Epic Allergies As of Date: 05/31/2023 Noted Allergy Reaction ADHESIVE TAPE (ROSINS) 12/05/2016 2 - Rash BACTRIM DS (SULFAMETHOXAZOLE-TRIM*12/29/2014 10 - Anaphylaxis Comments: Difficulty breathing, fever, chills BEE STING 08/28/2012 10 - Anaphylaxis DARVON (PROPOXYPHENE HCL) 05/15/2007 INFLUENZA VIRUS VACCINES 01/07/2019 14 - Other: See Comments Comments: Chest tightness, arm swelling. Date Reviewed: 03/19/2023 Reviewed by: Faith Mullins APRN.MEDICAL PAYMENT POSTER - Fully Assessed Reason for Visit: Transition Of Care [4074] Prescriptions as of 05/31/2023 - furosemide (LASIX) 20 mg tablet Take 1 tablet by mouth once daily. - fluticasone (FLONASE) 50 mcg/actuation nasal spray Use 2 Sprays in each nostril once daily. - metoprolol tartrate, short ac (more content not included)... [facility] 05-24-2023 Note HNO ID: [id number] Author: ALESHIA OAKLEY MA Service: ? Author Type: Contact Clerk Type: Progress Notes Filed: 05/24/2023 09:21 Note Text: POPULATION HEALTH NAVIGATION OUTREACH Action/ msg to schedule wellness Reason for Outreach Care Gap/HCC or Scheduling Wellness Visits Care Gaps due: Medicare Annual Wellness Visit Patient Contacted: Unable or unnecessary to reach patient: Unable to leave message [email or web address] message sent Navigation Signature: Aleshia Oakley MA May 24, 2023 9:21 AM [facility] 05-24-2023 Note Patient Outreach (NE TNAV) ROMAIN BAILEY ([id number]) 1950 F T Date Time Provider Department 05/24/23 ALESHIA OAKLEY During your visit today, we recorded the following information about you: Aleshia Oakley MA 05/24/2023 9:21 AM Signed POPULATION HEALTH NAVIGATION OUTREACH Action/FYI msg to schedule wellness Reason for Outreach Care Gap/HCC or Scheduling Wellness Visits Care Gaps due: Medicare Annual Wellness Visit Patient Contacted: Unable or unnecessary to reach patient: Unable to leave message [email or web address] message sent Navigation Signature: Aleshia Oakley MA May 24, 2023 9:21 AM Allergies As of Date: 05/24/2023 Noted Allergy Reaction ADHESIVE TAPE (ROSINS) 12/05/2016 2 - Rash BACTRIM DS (SULFAMETHOXAZOLE-TRIM*12/29/2014 10 - Anaphylaxis Comments: Difficulty breathing, fever, chills BEE STING 08/28/2012 10 - Anaphylaxis DARVON (PROPOXYPHENE HCL) 05/15/2007 INFLUENZA VIRUS VACCINES 01/07/2019 14 - Other: See Comments Comments: Chest tightness, arm swelling. Date Reviewed: 03/19/2023 Reviewed by: Faith Mullins APRN.MEDICAL PAYMENT POSTER - Fully Assessed Reason for Visit: Population Health Navigation Outreach [3910] Cmt: Human care gaps Prescriptions as of 05/24/2023 - furosemide (LASIX) 20 mg tablet Take 1 tablet by mouth once daily. - fluticasone (FLONASE) 50 mcg/actuation nasal spray Use 2 Sprays in each nostril once daily. - metoprolol tartrate, short acting, (LOPRESSOR) 25 mg tablet Take 1 tablet by mouth two times a day. - fluticasone-salmeterol (ADVAIR DISKUS) 250-50 mcg/dose inhaler Inhale 1 Puff as instructed two times a day. For Asthma flare. Resume Advair 100 after this one completed - benzonatate (TESSALON PERLES) 100 mg capsule Take 2 capsules by mouth three times a day as needed. - colestipol (COLESTID) 1 gram tablet Take 1 tablet by mouth as needed. - verapamil SR (CALAN SR) 240 mg CR tablet Take 1 tablet by mouth daily at bedtime. - atorvastatin (LIPITOR) 40 mg tablet Take 1 tablet by mouth once daily. - pantoprazole DR (PROTONIX) 20 mg tablet Take 1 tablet by mouth once daily. - fluticasone-salmeterol (ADVAIR DISKUS) 100-50 mcg/dose inhaler Inhale 1 Puff as instructed twice daily. RINSE AND GARGLE MOUTH WITH WATER AFTER EACH USE. - loratadine (CLARITIN) 10 mg tablet Take 1 tablet by mouth once daily. - albuterol HFA (PROVENTIL HFA, VENTOLIN HFA) 90 mcg/actuation inhaler Inhale 2 Puffs as instructed every 6 hours as needed. - albuterol (PROVENTIL) 2.5 mg /3 mL (0.083 %) nebulizer solution Use 3 mL via nebulizer every 4 hours as needed for wheezing/shortness of breath. Use over 5-15minutes. - apixaban (ELIQUIS) 5 mg tab(s) Take 5 mg by mouth twice daily. Will start when delivered - ondansetron orally disintegrating (ZOFRAN ODT) 4 mg disintegrating tablet DISSOLVE 1 TABLET ON THE TONGUE EVERY 6 HOURS NEEDED FOR NAUSEA/VOMITING - EPINEPHrine (AUVI-Q) 0.3 mg/0.3 mL auto-injector Inject 0.3 mL intramuscularly as needed. - meclizine (ANTIVERT) 25 mg tab Take 1 tablet by mouth every 6 hours as needed (dizziness). - Nebulizer NEBULIZER FOR HOME USE. DX: J45.20 Meds Comments as of 06/10/2021: August 26, 2019 The patient states the Warfarin dose is adjusted based on blood work. Lotus Sosa RN 08/19/2019: Patient is not taking Eliquis. currently on Loratadine, doxycycline, magnesium supplement. Lubna Armstrong RN 09/17/2019 8:20 AM Reviewed these new meds. Methylprednisilone and Macrobid. Do Ortiz RN Problem List As Of Date 05/24/2023 Noted Resolved Sebaceous cyst [L72.3] 05/15/2007 04/16/2012 Environmental allergies [Z91.09] Asthma [J45.909] Arthropathy, unspecified, site unspecified [M12* Essential hypertension [I10] IBS (irritable bowel syndrome) [K58.9] GERD (gastroesophageal reflux disease) [K21.9] Migraine [G43.909] Diverticulitis [K57.92] 12/10/2020 Hyperlipidemia, mixed [E78.2] Fracture of finger, middle or proximal phalanx,*08/28/2012 12/10/2020 History of colon polyps [Z86.010] Chronic pain of right knee [M25.561, G89.29] 12/13/2015 Primary osteoarthritis of right knee [M17.11] 12/13/2015 BPPV (benign paroxysmal positional vertigo) [H8*04/04/2016 Bee sting allergy [Z91.030] 12/11/2017 Bilateral low back pain with bilateral sciatica*12/27/2017 Calculus of kidney [N20.0] 05/09/2018 LLQ pain [R10.32] 05/27/2018 History of TIA (transient ischemic attack) [Z86*07/29/2018 Dry skin [L85.3] 09/03/2018 Atrial fibrillation with rapid ventricular resp*12/30/2018 01/01/2023 Sacroiliitis (HCC) [M46.1] 04/14/2022 History of asthma [Z87.09] 11/16/2022 Acquired stenosis of nasolacrimal duct, right [*11/30/2022 Unspecified dacryocystitis of right lacrimal pa*11/30/2022 Unspecified injury of right lower leg, initial *01/31/2022 Chest pain [R07.9] 01/01/2023 Contusion of left wrist [S60.212A] 01/01/2023 Contusio (more content not included)... [facility] 04-12-2023 Miscellaneous Notes Order has been faxed OK printed order, please process Spoke with patient and she is no longer using oxygen. States it is no longer needed. She has pulse ox at home and uses it frequently and pulse ox's have been good with the last reading on 04/08/23 of 97% At her visit in February she reported using oxygen at night, check to see if doing this at all now. Does she have any pulse ox readings from at home? If so would be good to have her most recent. Once we obtain this information can complete a letter and send it as requested. Called pt to review that the office did rec'd order request from [employer] for an over night pulse ox. Pt declines this. She notes not using O2. She hasn't used since Andriy appt with pcp and [employer]. She would like the O2 discontinued. She asked [employer] to remove but they told her d/c order is needed from pcp's office. Please review and print order to d/c We can fax this to [employer] at [phone]. Pt reports no noted shortness of breathe at all and not on exertion. documented in this encounter [facility] 04-06-2023 Miscellaneous Notes Letter is ready for pick up worker in Medical Records. Left message for daughter. Printed, please process Order pended, please file if agreeable. Susu James MA Patient's daughter calling for a new Rx for Romain's handicap placard. Please call her when ready at [phone] and she will pick it up. documented in this encounter [facility] 04-05-2023 Miscellaneous Notes Patient notified. Fannie Mario RN Recommend drinking sufficient fluids, aim for 64 oz/day, dietary fiber, miralax daily if needed for constipation. ER for any concerning symptoms/bleeding. Can try OTC hemorrhoid treatment if needed. Patient had bright red blood with 2 constipated stools, one on Sun and one onTues this week. Stool is soft after taking miralax. No blood with BM today. Takes eliquis. Patient has known hemorroid just inside rectum. Reports it was sticking out of rectum at time of bleed, but has since gone back inside rectum. Pt states she will use preparation H or tucks. Pt reports she was bloated- but feels good today. Reviewed protocol recommendations with pt. Schedule appt with [facility] for tomorrow at time that works best for patient. Advised pt to ER if bleeding occurs today, and pt is agreeable. Reason for Disposition MODERATE rectal bleeding (small blood clots, passing blood without stool, or toilet water turns red) Answer Assessment - Initial Assessment Questions 1. APPEARANCE of BLOOD: Bright red blood poured out of rectum with constipated stool on Sunday & (happened 2 times). Took miralax and increased fluid intake, and stools are soft now. Reports she does have a hemorroid just inside of rectum and thinks constipated stool irritated the hemorroid. Reports it's a large hemorroid, and has had it for more than a couple years. 2. AMOUNT: Appeared as a lot, toilet water red, splattered everywhere, toilet paper was red. 3. FREQUENCY: Blood passed twice with stool. Blood not in the stool just came out with stool. 4. ONSET: First time Sunday. Second time . Happened 2 times. 5. DIARRHEA: No diarrhea 6. CONSTIPATION: Had cramping on Sat- took miralax Sat night- had constipated stool on Sunday. Stool was soft by Sunday evening. Stool was soft formed on Sunday. passed a lot of bright red blood with soft stool. Bleeding stopped an hour or less later each time. 7. RECURRENT SYMPTOMS: Yes, was told it was a hemorroid- 2-3 years ago with colonoscopy- removed polyps at that time- and told her she had a hemorroid. 8. BLOOD THINNERS Takes eliquis for a-fib. 9. OTHER SYMPTOMS: No symptoms today. Today feels good. When had constipation was bloated- but today feels like cleaned her system out. 10. : No. Hx hysterectomy. Protocols used: Rectal [id number] documented in this encounter [facility] 03-27-2023 Miscellaneous Notes Followed by [facility]. Echo shows 1+ MR, increased TR 2+ elevated RVSP. Should continue on with diuretic and schedule appointment with cardiology for now. documented in this encounter [facility] 03-19-2023 Note HNO ID: [id number] Author: FAITH MULLINS APRN.MEDICAL PAYMENT POSTER Service: ? Author Type: Nurse Specialist Type: Progress Notes Filed: 03/19/2023 16:02 Note Text: SUBJECTIVE: Spirometry Never done Shingrix Vaccine(1 of 2) Never done RSV Vaccine(1 - 1-dose 60+ series) Never done Mammogram Screening due on 06/26/2017 Advance Directive Discussion due on 02/26/2023 Depression Assessment due on 02/26/2023 Colorectal Cancer Screening due on 05/30/2023 HPI Romain Bailey is a 73 year old female. PMH is significant for ACTIVE PROBLEM LIST Environmental Allergies Asthma Arthropathy, Unspecified, Site Unspecified Essential Hypertension Ibs (Irritable Bowel Syndrome) Gerd (Gastroesophageal Reflux Disease) Migraine Hyperlipidemia, Mixed History of Colon Polyps Chronic Pain of Right Knee Primary Osteoarthritis of Right Knee Bppv (Benign Paroxysmal Positional Vertigo) Bee Sting Allergy Bilateral Low Back Pain With Bilateral Sciatica Calculus of Kidney Llq Pain History of Tia (Transient Ischemic Attack) Dry Skin Sacroiliitis (Hcc) History of Asthma Acquired Stenosis of Nasolacrimal Duct, Right Unspecified Dacryocystitis of Right Lacrimal Passage Unspecified Injury of Right Lower Leg, Initial Encounter Chest Pain Contusion of Left Wrist Contusion of Knee, Left Contusion of Elbow Colitis HPI excerpted from previous visit: Review of outside records indicate that she was seen at [facility] February 14 3026 for atrial fibrillation with rapid ventricular rate. Found to have RSV infection as well. She was treated with oral prednisone. Her dose of metoprolol tartrate was increased from 12.5 mg twice daily to 25 mg twice daily. She was continued on home verapamil dose unchanged. She was continued on Eliquis. Noted to be hypoxic so discharged on an oxygen. She was discharged on a prolonged steroid taper. Treated with cefdinir for possible bacterial pneumonia. Continued on inhalers every 4-6 hours for shortness of breath. Today and notes bilateral foot and leg swelling. She notes she was initially sleeping in recliner with feet elevated at discharge from the hospital. She notes breathing has improved and now sleeping in the bed with feet not quite as elevated as before. Feet been swelling since last . Cardiology follow-up: Not scheduled Chest pain: None reported Shortness of breath: Improved since discharge, as needed use of oxygen Weight gain: Yes Edema: Yes Cough: Reduced Wheeze: No Fever: No Compression: No Elevation: Yes Followed by [facility].She has a history of mitral insufficiency and paroxysmal atrial fibrillation. [facility] pharmacologic myocardial perfusion stress test completed for chest pain last year, negative for ischemia with preserved ejection fraction. On chronic OAC. No bleeding difficulties. With report of recurrence palpitations. She continues on oxygen, primarily wearing at night. Pulse ox has remained above 90% most of the time. Shortness of breath is decreased. She is able to walk within the home with decreased shortness of breath. She does still get short of breath with 1 flight of stairs. Orthopnea is resolved, can lie flat to sleep. She reports drinking plenty of fluids daily. She has noted low back pain with radiation down her right leg with crampy pain in the posterior thigh and calf, better now. She has not yet scheduled an appointment with cardiology. Has not been wearing compression. Notes right leg has significantly decreased edema. Edema persisting in the left leg but a bit improved. Weight is stable. She notes sinus drainage and congestion, history of allergies. Using asthma medications. HTN: Occasional palpitations. headache, chest pain, dyspnea, peripheral edema, orthopnea, fatigue, and PND. Last 14 Encounter BP Readings: Date: BP: 03/19/2023 136/73 03/12/2023 129/71 02/27/2023 122/72 02/10/2023 134/76 01/01/2023 126/77 11/25/2022 128/74 11/16/2022 170/80 09/07/2022 126/72 08/10/2022 108/50 06/30/2022 122/64 04/11/2022 136/80 01/10/2022 136/78 12/22/2021 140/80 10/11/2021 136/80 Hyperlipidemia. Ms. Bailey reports doing well on current therapy Her most recent lipid panels are: Cholesterol, Total (mg/dL) Date Value 08/19/2021 175 07/29/2018 150 04/06/2018 168 Total Cholesterol, Nonfasting (mg/dL) Date Value 06/30/2022 183 HDL Cholesterol (mg/dL) Date Value 08/19/2021 45 07/29/2018 45 04/06/2018 44 HDL Cholesterol, Nonfasting (mg/dL) Date Value 06/30/2022 46 LDL Cholesterol (mg/dL) Date Value 08/19/2021 107 04/06/2018 107 03/17/2017 127 LDL Cholesterol, Nonfasting (mg/dL) Date Value 06/30/2022 92 LDL Calculated (mg/dL) Date Value 07/29/2018 95 Triglyceride (mg/dL) Date Value 08/19/2021 113 07/29/2018 52 04/06/2018 83 Triglycerides, Nonfasting (mg/dL) Date Value 06/30/2022 224 Review of Systems Constitutional: Nega (more content not included)... [facility] 03-12-2023 Note HNO ID: [id number] Author: FAITH MULLINS APRN.MEDICAL PAYMENT POSTER Service: ? Author Type: Nurse Specialist Type: Progress Notes Filed: 03/12/2023 13:58 Note Text: SUBJECTIVE: Spirometry Never done Shingrix Vaccine(1 of 2) Never done RSV Vaccine(1 - 1-dose 60+ series) Never done Mammogram Screening due on 06/26/2017 Advance Directive Discussion due on 02/26/2023 Depression Assessment due on 02/26/2023 Colorectal Cancer Screening due on 05/30/2023 HPI Romain Bailey is a 73 year old female. PMH is significant for ACTIVE PROBLEM LIST Environmental Allergies Asthma Arthropathy, Unspecified, Site Unspecified Essential Hypertension Ibs (Irritable Bowel Syndrome) Gerd (Gastroesophageal Reflux Disease) Migraine Hyperlipidemia, Mixed History of Colon Polyps Chronic Pain of Right Knee Primary Osteoarthritis of Right Knee Bppv (Benign Paroxysmal Positional Vertigo) Bee Sting Allergy Bilateral Low Back Pain With Bilateral Sciatica Calculus of Kidney Llq Pain History of Tia (Transient Ischemic Attack) Dry Skin Sacroiliitis (Hcc) History of Asthma Acquired Stenosis of Nasolacrimal Duct, Right Unspecified Dacryocystitis of Right Lacrimal Passage Unspecified Injury of Right Lower Leg, Initial Encounter Chest Pain Contusion of Left Wrist Contusion of Knee, Left Contusion of Elbow Colitis Review of outside records indicate that she was seen at [facility] February 14 3026 for atrial fibrillation with rapid ventricular rate. Found to have RSV infection as well. She was treated with oral prednisone. Her dose of metoprolol tartrate was increased from 12.5 mg twice daily to 25 mg twice daily. She was continued on home verapamil dose unchanged. She was continued on Eliquis. Noted to be hypoxic so discharged on an oxygen. She was discharged on a prolonged steroid taper. Treated with cefdinir for possible bacterial pneumonia. Continued on inhalers every 4-6 hours for shortness of breath. Today and notes bilateral foot and leg swelling. She notes she was initially sleeping in recliner with feet elevated at discharge from the hospital. She notes breathing has improved and now sleeping in the bed with feet not quite as elevated as before. Feet been swelling since last . Cardiology follow-up: Not scheduled Chest pain: None reported Shortness of breath: Improved since discharge, as needed use of oxygen Weight gain: Yes Edema: Yes Cough: Reduced Wheeze: No Fever: No Compression: No Elevation: Yes Followed by [facility].She has a history of mitral insufficiency and paroxysmal atrial fibrillation. [facility] pharmacologic myocardial perfusion stress test completed for chest pain last year, negative for ischemia with preserved ejection fraction. On chronic OAC. No bleeding difficulties. HTN: Occasional palpitations. headache, chest pain, dyspnea, peripheral edema, orthopnea, fatigue, and PND. Last 14 Encounter BP Readings: Date: BP: 03/12/2023 129/71 02/27/2023 122/72 02/10/2023 134/76 01/01/2023 126/77 11/25/2022 128/74 11/16/2022 170/80 09/07/2022 126/72 08/10/2022 108/50 06/30/2022 122/64 04/11/2022 136/80 01/10/2022 136/78 12/22/2021 140/80 10/11/2021 136/80 08/15/2021 142/78 Hyperlipidemia. Ms. Bailey reports doing well on current therapy Her most recent lipid panels are: Cholesterol, Total (mg/dL) Date Value 08/19/2021 175 07/29/2018 150 04/06/2018 168 Total Cholesterol, Nonfasting (mg/dL) Date Value 06/30/2022 183 HDL Cholesterol (mg/dL) Date Value 08/19/2021 45 07/29/2018 45 04/06/2018 44 HDL Cholesterol, Nonfasting (mg/dL) Date Value 06/30/2022 46 LDL Cholesterol (mg/dL) Date Value 08/19/2021 107 04/06/2018 107 03/17/2017 127 LDL Cholesterol, Nonfasting (mg/dL) Date Value 06/30/2022 92 LDL Calculated (mg/dL) Date Value 07/29/2018 95 Triglyceride (mg/dL) Date Value 08/19/2021 113 07/29/2018 52 04/06/2018 83 Triglycerides, Nonfasting (mg/dL) Date Value 06/30/2022 224 Review of Systems Constitutional: Negative. Respiratory: Positive for shortness of breath (SOBOE exertion). Cardiovascular: Positive for leg swelling. Objective BP 129/71 Pulse 65 Resp 16 Wt 93 kg (205 lb) BMI 33.09 kg/m? Physical Exam Vitals and nursing note reviewed. Constitutional: Appearance: Normal appearance. HENT: Head: Normocephalic and atraumatic. Eyes: Conjunctiva/sclera: Conjunctivae normal. Neck: Thyroid: No thyromegaly. Vascular: Normal carotid pulses. No JVD. Cardiovascular: Rate and Rhythm: Normal rate and regular rhythm. Pulses: Carotid pulses are 2+ on the right side and 2+ on the left side. Radial pulses are 2+ on the right side and 2+ on the left side. Heart sounds: Normal heart sounds. Pulmonary: Effort: Pulmonary effort is normal. Breath sounds: Normal breath sounds. Abdominal: General: Bowel sounds are normal. Palpations: Abdome (more content not included)... [facility] 02-27-2023 Note HNO ID: [id number] Author: FATEMEH ROGERS MD Service: ? Author Type: Physician Type: Progress Notes Filed: 03/25/2023 23:26 Note Text: This note was created using [employer]. Subjective Romain Bailey is a 72 year old female. Patient presents with: Hospital F/U SUBJECTIVE: Romain Bailey is a 72 year old year old lady here today for follow up month follow up appointment for review of medical conditions. Coughing last night after eating cookie and tea. Waiting for reflux med--might have been shipped but needs to check at home Was in [facility] --reviewed records. Asthma exacerbation, A fib with RVR and acute hypokalemia. Prednisone works well for lungs but causes diarrhea like before. Finished antibiotic. Has used Imodium Still has some colestid to use if needed. Decreased appetite due to illness. Can only eat small portions because of decreased appetites. Gets light snacks in between meals. Has some tea and lemonade, also Ensure Barky cough noted. Sometime loose cough. Pulse ox dips to low 90s but up with O2 to 98%. Not too SOB without O2 except with getting cleaned up.washed in upstairs bathroom. where O2 does not reach. PAST MEDICAL HISTORY Diagnosis Date Arthropathy, unspecified, site unspecified Asthma Back pain Calculus of kidney 05/09/2018 Colon polyps 2014 Diverticulitis 2000 Environmental allergies GERD (gastroesophageal reflux disease) Hyperlipidemia lifestyle controlled Hypertension IBS (irritable bowel syndrome) Migraine Obesity Pseudophakia 12/2021 both Current Outpatient Medications Medication Sig benzonatate (TESSALON PERLES) 100 mg capsule Take 2 capsules by mouth three times a day as needed. colestipol (COLESTID) 1 gram tablet Take 1 tablet by mouth as needed. metoprolol tartrate, short acting, (LOPRESSOR) 25 mg tablet Take 0.5 tablets by mouth twice daily. verapamil SR (CALAN SR) 240 mg CR tablet Take 1 tablet by mouth daily at bedtime. atorvastatin (LIPITOR) 40 mg tablet Take 1 tablet by mouth once daily. pantoprazole DR (PROTONIX) 20 mg tablet Take 1 tablet by mouth once daily. fluticasone-salmeterol (ADVAIR DISKUS) 100-50 mcg/dose inhaler Inhale 1 Puff as instructed twice daily. RINSE AND GARGLE MOUTH WITH WATER AFTER EACH USE. loratadine (CLARITIN) 10 mg tablet Take 1 tablet by mouth once daily. albuterol HFA (PROVENTIL HFA, VENTOLIN HFA) 90 mcg/actuation inhaler Inhale 2 Puffs as instructed every 6 hours as needed. albuterol (PROVENTIL) 2.5 mg /3 mL (0.083 %) nebulizer solution Use 3 mL via nebulizer every 4 hours as needed for wheezing/shortness of breath. Use over 5-15minutes. apixaban (ELIQUIS) 5 mg tab(s) Take 5 mg by mouth twice daily. Will start when delivered ondansetron orally disintegrating (ZOFRAN ODT) 4 mg disintegrating tablet DISSOLVE 1 TABLET ON THE TONGUE EVERY 6 HOURS NEEDED FOR NAUSEA/VOMITING EPINEPHrine (AUVI-Q) 0.3 mg/0.3 mL auto-injector Inject 0.3 mL intramuscularly as needed. meclizine (ANTIVERT) 25 mg tab Take 1 tablet by mouth every 6 hours as needed (dizziness). fluticasone (FLONASE) 50 mcg/actuation nasal spray Use 2 Sprays in each nostril once daily. bifidobacteri bifid.and longum (FLORAJEN BIFIDOBLEND) 460 mg (9-1 bill.cell) cap Take 1 capsule by mouth once daily. Nebulizer NEBULIZER FOR HOME USE. DX: J45.20 docusate sodium (STOOL SOFTENER ORAL) Take by mouth once daily. (Patient not taking: Reported on 02/27/2023) cyclobenzaprine HCl (FLEXERIL ORAL) Take by mouth. (Patient not taking: Reported on 12/14/2022) cyclobenzaprine (FLEXERIL) 10 mg tablet (Patient not taking: Reported on 12/14/2022) cycloSPORINE (RESTASIS) 0.05 % ophthalmic emulsion Use 1 Drop in both eyes twice daily. Both eyes. (Patient not taking: Reported on 12/14/2022) No current facility-administered medications for this visit. Review of Systems Objective BP 122/72 Pulse 94 Temp 36.6 ?C (97.8 ?F) Resp 18 Wt 89.5 kg (197 lb 6.4 oz) SpO2 97% BMI 31.86 kg/m? Last 5 Encounter Wt Readings: Date: Wt: 02/27/2023 89.5 kg (197 lb 6.4 oz) 02/10/2023 93.6 kg (206 lb 6.4 oz) 01/01/2023 93.4 kg (206 lb) 11/25/2022 93.2 kg (205 lb 6.4 oz) 11/16/2022 93.4 kg (206 lb) No waist measurement recorded Estimated body mass index is 31.86 kg/m? as calculated from the following: Height as of 08/10/22: 167.6 cm (5' 6 ). Weight as of this encounter: 89.5 kg (197 lb 6.4 oz). Last 5 Encounter BP Readings: Date: BP: 02/27/2023 122/72 02/10/2023 134/76 01/01/2023 126/77 11/25/2022 128/74 11/16/2022 170/80 Physical Exam Vitals reviewed. Constitutional: General: She is not in acute distress. Appearance: Normal appearance. She is not toxic-appearing. HENT: Head: Normocephalic. Eyes: Conjunctiva/sclera: Conjunctivae normal. Cardiovascular: Rate and Rhythm: Normal rate and regular rhythm. Heart sounds: Normal heart sounds. Pulmonary: Effort: Pulmonary effort is normal. (more content not included)... [facility] 02-27-2023 History of Present illness Narrative This note was created using [employer]. Subjective Romain Bailey is a 72 year old female. Patient presents with: Hospital F/U SUBJECTIVE: Romain Bailey is a 72 year old year old lady here today for follow up month follow up appointment for review of medical conditions. Coughing last night after eating cookie and tea. Waiting for reflux med--might have been shipped but needs to check at home Was in [facility] --reviewed records. Asthma exacerbation, A fib with RVR and acute hypokalemia. Prednisone works well for lungs but causes diarrhea like before. Finished antibiotic. Has used Imodium Still has some colestid to use if needed. Decreased appetite due to illness. Can only eat small portions because of decreased appetites. Gets light snacks in between meals. Has some tea and lemonade, also Ensure Barky cough noted. Sometime loose cough. Pulse ox dips to low 90s but up with O2 to 98%. Not too SOB without O2 except with getting cleaned up.washed in upstairs bathroom. where O2 does not reach. PAST MEDICAL HISTORY Diagnosis Date Arthropathy, unspecified, site unspecified Asthma Back pain Calculus of kidney 05/09/2018 Colon polyps 2013 Diverticulitis 2000 Environmental allergies GERD (gastroesophageal reflux disease) Hyperlipidemia lifestyle controlled Hypertension IBS (irritable bowel syndrome) Migraine Obesity Pseudophakia 12/2021 both Current Outpatient Medications Medication Sig benzonatate (TESSALON PERLES) 100 mg capsule Take 2 capsules by mouth three times a day as needed. colestipol (COLESTID) 1 gram tablet Take 1 tablet by mouth as needed. metoprolol tartrate, short acting, (LOPRESSOR) 25 mg tablet Take 0.5 tablets by mouth twice daily. verapamil SR (CALAN SR) 240 mg CR tablet Take 1 tablet by mouth daily at bedtime. atorvastatin (LIPITOR) 40 mg tablet Take 1 tablet by mouth once daily. pantoprazole DR (PROTONIX) 20 mg tablet Take 1 tablet by mouth once daily. fluticasone-salmeterol (ADVAIR DISKUS) 100-50 mcg/dose inhaler Inhale 1 Puff as instructed twice daily. RINSE AND GARGLE MOUTH WITH WATER AFTER EACH USE. loratadine (CLARITIN) 10 mg tablet Take 1 tablet by mouth once daily. albuterol HFA (PROVENTIL HFA, VENTOLIN HFA) 90 mcg/actuation inhaler Inhale 2 Puffs as instructed every 6 hours as needed. albuterol (PROVENTIL) 2.5 mg /3 mL (0.083 %) nebulizer solution Use 3 mL via nebulizer every 4 hours as needed for wheezing/shortness of breath. Use over 5-15minutes. apixaban (ELIQUIS) 5 mg tab(s) Take 5 mg by mouth twice daily. Will start when delivered ondansetron orally disintegrating (ZOFRAN ODT) 4 mg disintegrating tablet DISSOLVE 1 TABLET ON THE TONGUE EVERY 6 HOURS NEEDED FOR NAUSEA/VOMITING EPINEPHrine (AUVI-Q) 0.3 mg/0.3 mL auto-injector Inject 0.3 mL intramuscularly as needed. meclizine (ANTIVERT) 25 mg tab Take 1 tablet by mouth every 6 hours as needed (dizziness). fluticasone (FLONASE) 50 mcg/actuation nasal spray Use 2 Sprays in each nostril once daily. bifidobacteri bifid.and longum (FLORAJEN BIFIDOBLEND) 460 mg (9-1 bill.cell) cap Take 1 capsule by mouth once daily. Nebulizer NEBULIZER FOR HOME USE. DX: J45.20 docusate sodium (STOOL SOFTENER ORAL) Take by mouth once daily. (Patient not taking: Reported on 02/27/2023) cyclobenzaprine HCl (FLEXERIL ORAL) Take by mouth. (Patient not taking: Reported on 12/14/2022) cyclobenzaprine (FLEXERIL) 10 mg tablet (Patient not taking: Reported on 12/14/2022) cycloSPORINE (RESTASIS) 0.05 % ophthalmic emulsion Use 1 Drop in both eyes twice daily. Both eyes. (Patient not taking: Reported on 12/14/2022) No current facility-administered medications for this visit. Review of Systems Objective BP 122/72 Pulse 94 Temp 36.6 C (97.8 F) Resp 18 Wt 89.5 kg (197 lb 6.4 oz) SpO2 97% BMI 31.86 kg/m Last 5 Encounter Wt Readings: Date: Wt: 02/27/2023 89.5 kg (197 lb 6.4 oz) 02/10/2023 93.6 kg (206 lb 6.4 oz) 01/01/2023 93.4 kg (206 lb) 11/25/2022 93.2 kg (205 lb 6.4 oz) 11/16/2022 93.4 kg (206 lb) No waist measurement recorded Estimated body mass index is 31.86 kg/m as calculated from the following: Height as of 08/10/22: 167.6 cm (5' 6 ). Weight as of this encounter: 89.5 kg (197 lb 6.4 oz). Last 5 Encounter BP Readings: Date: BP: 02/27/2023 122/72 02/10/2023 134/76 01/01/2023 126/77 11/25/2022 128/74 11/16/2022 170/80 Physical Exam Vitals reviewed. Constitutional: General: She is not in acute distress. Appearance: Normal appearance. She is not toxic-appearing. HENT: Head: Normocephalic. Eyes: Conjunctiva/sclera: Conjunctivae normal. Cardiovascular: Rate and Rhythm: Normal rate and regular rhythm. Heart sounds: Normal heart sounds. Pulmonary: Effort: Pulmonary effort is normal. Breath sounds: Normal breath sounds. Comments: Able to speak in full sentences. Barky cough noted Musculoskeletal: Right lower leg: Edema present. Left lower leg: Edema present. Skin: General: Skin is warm and dry. Neurological: General: No focal deficit present. Mental Status: She is alert and oriented to person, place, and time. Psychiatric: Mood and Affect: Mood normal. Behavior: Behavior normal. Thought Content: Thought content normal. Judgment: Judgment normal. Reviewed studies done during hospitalization Assessment and Plan Encounter Diagnosis ICD-10-CM 1. Moderate persistent asthma with acute exacerbation J45.41 Improving with treatment as noted above. Continue management, Further evaluation and treatment as indicated 2. Atrial fibrillation with rapid ventricular response (HCC) I48.91 Noted episode while in hospital. Continue present meds. On beta danielle and Eliquis. 3. Diarrhea, unspecified type R19.7 She attributes to oral steroid. Symptom management for now. Follow up as needed Above issues addressed with patient. Patient involved in shared decision making for management of medical issues. History and medications reviewed. Epic updated as needed Refills and/or prescriptions taken care of and meds adjusted as indicated after reviewed history, exam and labs. Health Maintenance reviewed. Updated record and/or ordered tests as recorded. Encouraged on efforts at healthy diet and regular exercise and adequate sleep. Reviewed need for O2 with some exertion associated with MAYER as noted in HPI. Denies pulse ox dropping below 88% on RA. Monitor for now. Further evaluation and treatment as indicated. Fatemeh Rogers MD documented in this encounter [facility] 02-21-2023 Note HNO ID: [id number] Author: Rashmi Llamas LPN Service: ? Author Type: LICENSED NURSE Type: Progress Notes Filed: 02/27/2023 11:24 AM Note Text: Called pt again to complete TCM notes with same response. [facility] 02-21-2023 Note HNO ID: [id number] Author: Rashmi Llamas LPN Service: ? Author Type: LICENSED NURSE Type: Progress Notes Filed: 02/27/2023 11:24 AM Note Text: Pt has appt with pcp 02/27/23. Called pt to complete TCM notes and unable to leave a message. Mail box is full. [facility] 02-21-2023 Note Patient Outreach ([facility]) ROMAIN BAILEY ([id number]) 1950 F CHT Date Time Provider Department 02/21/23 FATEMEH ROGERS [facility] During your visit today, we recorded the following information about you: Rashmi Llamas LPN 02/27/2023 11:24 AM Signed Pt has appt with pcp 02/27/23. Called pt to complete TCM notes and unable to leave a message. Mail box is full. Rashmi Llamas LPN 02/27/2023 11:24 AM Signed Called pt again to complete TCM notes with same response. Allergies As of Date: 02/21/2023 Noted Allergy Reaction ADHESIVE TAPE (ROSINS) 12/05/2016 2 - Rash BACTRIM DS (SULFAMETHOXAZOLE-TRIM*12/29/2014 10 - Anaphylaxis Comments: Difficulty breathing, fever, chills BEE STING 08/28/2012 10 - Anaphylaxis DARVON (PROPOXYPHENE HCL) 05/15/2007 INFLUENZA VIRUS VACCINES 01/07/2019 14 - Other: See Comments Comments: Chest tightness, arm swelling. Date Reviewed: 02/10/2023 Reviewed by: Telma Delvalle MA - Fully Assessed Reason for Visit: Transition Of Care [4074] Prescriptions as of 02/27/2023 - benzonatate (TESSALON PERLES) 100 mg capsule Take 2 capsules by mouth three times a day as needed. - colestipol (COLESTID) 1 gram tablet Take by mouth. - metoprolol tartrate, short acting, (LOPRESSOR) 25 mg tablet Take 0.5 tablets by mouth twice daily. - verapamil SR (CALAN SR) 240 mg CR tablet Take 1 tablet by mouth daily at bedtime. - atorvastatin (LIPITOR) 40 mg tablet Take 1 tablet by mouth once daily. - pantoprazole DR (PROTONIX) 20 mg tablet Take 1 tablet by mouth once daily. - docusate sodium (STOOL SOFTENER ORAL) Take by mouth once daily. - fluticasone-salmeterol (ADVAIR DISKUS) 100-50 mcg/dose inhaler Inhale 1 Puff as instructed twice daily. RINSE AND GARGLE MOUTH WITH WATER AFTER EACH USE. - loratadine (CLARITIN) 10 mg tablet Take 1 tablet by mouth once daily. - cyclobenzaprine HCl (FLEXERIL ORAL) Take by mouth. - cyclobenzaprine (FLEXERIL) 10 mg tablet - albuterol HFA (PROVENTIL HFA, VENTOLIN HFA) 90 mcg/actuation inhaler Inhale 2 Puffs as instructed every 6 hours as needed. - albuterol (PROVENTIL) 2.5 mg /3 mL (0.083 %) nebulizer solution Use 3 mL via nebulizer every 4 hours as needed for wheezing/shortness of breath. Use over 5-15minutes. - apixaban (ELIQUIS) 5 mg tab(s) Take 5 mg by mouth twice daily. Will start when delivered - ondansetron orally disintegrating (ZOFRAN ODT) 4 mg disintegrating tablet DISSOLVE 1 TABLET ON THE TONGUE EVERY 6 HOURS NEEDED FOR NAUSEA/VOMITING - EPINEPHrine (AUVI-Q) 0.3 mg/0.3 mL auto-injector Inject 0.3 mL intramuscularly as needed. - meclizine (ANTIVERT) 25 mg tab Take 1 tablet by mouth every 6 hours as needed (dizziness). - fluticasone (FLONASE) 50 mcg/actuation nasal spray Use 2 Sprays in each nostril once daily. - bifidobacteri bifid.and longum (FLORAJEN BIFIDOBLEND) 460 mg (9-1 bill.cell) cap Take 1 capsule by mouth once daily. - cycloSPORINE (RESTASIS) 0.05 % ophthalmic emulsion Use 1 Drop in both eyes twice daily. Both eyes. - Nebulizer NEBULIZER FOR HOME USE. DX: J45.20 Meds Comments as of 06/10/2021: August 26, 2019 The patient states the Warfarin dose is adjusted based on blood work. Lotus Sosa RN 08/19/2019: Patient is not taking Eliquis. currently on Loratadine, doxycycline, magnesium supplement. Lubna Armstrong RN 09/17/2019 8:20 AM Reviewed these new meds. Methylprednisilone and Macrobid. Do Ortiz RN Problem List As Of Date 02/21/2023 Noted Resolved Sebaceous cyst [L72.3] 05/15/2007 04/16/2012 Environmental allergies [Z91.09] Asthma [J45.909] Arthropathy, unspecified, site unspecified [M12* Essential hypertension [I10] IBS (irritable bowel syndrome) [K58.9] GERD (gastroesophageal reflux disease) [K21.9] Migraine [G43.909] Diverticulitis [K57.92] 12/10/2020 Hyperlipidemia, mixed [E78.2] Fracture of finger, middle or proximal phalanx,*08/28/2012 12/10/2020 History of colon polyps [Z86.010] Chronic pain of right knee [M25.561, G89.29] 12/13/2015 Primary osteoarthritis of right knee [M17.11] 12/13/2015 BPPV (benign paroxysmal positional vertigo) [H8*04/04/2016 Bee sting allergy [Z91.030] 12/11/2017 Bilateral low back pain with bilateral sciatica*12/27/2017 Calculus of kidney [N20.0] 05/09/2018 LLQ pain [R10.32] 05/27/2018 History of TIA (transient ischemic attack) [Z86*07/29/2018 Dry skin [L85.3] 09/03/2018 Atrial fibrillation with rapid ventricular resp*12/30/2018 01/01/2023 Sacroiliitis (HCC) [M46.1] 04/14/2022 History of asthma [Z87.09] 11/16/2022 Acquired stenosis of nasolacrimal duct, right [*11/30/2022 Unspecified dacryocystitis of right lacrimal pa*11/30/2022 Unspecified injury of right lower leg, initial *01/31/2022 Chest pain [R07.9] 01/01/2023 Contusion of left wrist [S60.212A] 01/01/2023 Contusion of knee, left [S80.02XA] 01/01/2023 Contusion of elbow [S5 (more content not included)... [facility] 02-15-2023 Miscellaneous Notes Patient reports she was seen in and prescribed tessalon perrles for bronchitis cough and completed prednisone yesterday. Reports she continues to cough (1 week now). Reports she is drinking plenty of fluids. Reports she has no energy. Reports she is using her nebulizer, which helps. Reports her throat gets sore from cough.- and states it is a productive cough. Advised to try warm salt water gargles for sore throat, and advised a cool mist humidifier is helpful. Patient agreeable. Reports her home covid test was negative. Patient declined appt at this time. States she will see how she feels tomorrow, and if having concerns about her symptoms will call pcp office or go to for evaluation. documented in this encounter [facility] 02-10-2023 Note HNO ID: [id number] Author: Dallas Wilson PA-C Service: ? Author Type: Physician Box Closing Machine Operator Type: Progress Notes Filed: 02/10/2023 11:48 AM Note Text: This note was created using NoteWriter. Subjective Romain Bailey is a 72 year old female. HPI Presents with cough wheezing over the past 4 days. She denies vomiting or diarrhea. She states last night she felt the chest tightness worsen. She does have a history of asthma. She has been using her albuterol nebulizer. She did have a fever yesterday of 100.6. Home COVID test was negative. Denies sick contacts. Review of Systems Constitutional: Positive for fatigue and fever. HENT: Positive for congestion. Negative for ear pain and sore throat. Respiratory: Positive for cough, chest tightness, shortness of breath and wheezing. Cardiovascular: Negative. Gastrointestinal: Negative. Genitourinary: Negative. Musculoskeletal: Negative. Skin: Negative. All other systems reviewed and are negative. PAST MEDICAL HISTORY Diagnosis Date Arthropathy, unspecified, site unspecified Asthma Back pain Calculus of kidney 05/09/2018 Colon polyps 2014 Diverticulitis 2000 Environmental allergies GERD (gastroesophageal reflux disease) Hyperlipidemia lifestyle controlled Hypertension IBS (irritable bowel syndrome) Migraine Obesity Pseudophakia 12/2021 both Current Outpatient Medications Medication Sig Dispense Refill colestipol (COLESTID) 1 gram tablet Take by mouth. metoprolol tartrate, short acting, (LOPRESSOR) 25 mg tablet Take 0.5 tablets by mouth twice daily. 90 tablet 3 verapamil SR (CALAN SR) 240 mg CR tablet Take 1 tablet by mouth daily at bedtime. 90 tablet 3 atorvastatin (LIPITOR) 40 mg tablet Take 1 tablet by mouth once daily. [address] (PROTONIX) 20 mg tablet Take 1 tablet by mouth once daily. 90 tablet 3 docusate sodium (STOOL SOFTENER ORAL) Take by mouth once daily. methylPREDNISolone (MEDROL, PONCHO,) 4 mg Dose-Pack Take by mouth as directed until finished. 21 tablet 0 fluticasone-salmeterol (ADVAIR DISKUS) 100-50 mcg/dose inhaler Inhale 1 Puff as instructed twice daily. RINSE AND GARGLE MOUTH WITH WATER AFTER EACH USE. 180 Each 3 loratadine (CLARITIN) 10 mg tablet Take 1 tablet by mouth once daily. cyclobenzaprine HCl (FLEXERIL ORAL) Take by mouth. (Patient not taking: Reported on 12/14/2022) cyclobenzaprine (FLEXERIL) 10 mg tablet (Patient not taking: Reported on 12/14/2022) albuterol HFA (PROVENTIL HFA, VENTOLIN HFA) 90 mcg/actuation inhaler Inhale 2 Puffs as instructed every 6 hours as needed. 18 g 0 albuterol (PROVENTIL) 2.5 mg /3 mL (0.083 %) nebulizer solution Use 3 mL via nebulizer every 4 hours as needed for wheezing/shortness of breath. Use over 5-15minutes. 90 mL 3 apixaban (ELIQUIS) 5 mg tab(s) Take 5 mg by mouth twice daily. Will start when delivered ondansetron orally disintegrating (ZOFRAN ODT) 4 mg disintegrating tablet DISSOLVE 1 TABLET ON THE TONGUE EVERY 6 HOURS NEEDED FOR NAUSEA/VOMITING 90 tablet 0 EPINEPHrine (AUVI-Q) 0.3 mg/0.3 mL auto-injector Inject 0.3 mL intramuscularly as needed. 2 Each 3 meclizine (ANTIVERT) 25 mg tab Take 1 tablet by mouth every 6 hours as needed (dizziness). 90 tablet 0 fluticasone (FLONASE) 50 mcg/actuation nasal spray Use 2 Sprays in each nostril once daily. 3 Bottle 3 bifidobacteri bifid.and longum (FLORAJEN BIFIDOBLEND) 460 mg (9-1 bill.cell) cap Take 1 capsule by mouth once daily. 30 capsule 1 cycloSPORINE (RESTASIS) 0.05 % ophthalmic emulsion Use 1 Drop in both eyes twice daily. Both eyes. (Patient not taking: Reported on 12/14/2022) Nebulizer NEBULIZER FOR HOME USE. DX: J45.20 1 Device 0 No current facility-administered medications for this visit. PAST SURGICAL HISTORY Procedure Laterality Date CHOLECYSTECTOMY ~2003 Cholecystectomy laparoscopic COLONOSCOPY AND POLYPECTOMY 12/03/2013 tubular adenoma, hyperplastic polyp; repeat due in 5y COLONOSCOPY FLX DX W/COLLJ SPEC WHEN PFRMD 05/29/2018 Colonoscopy DEBRIDEMENT SUBCUTANEOUS TISSUE 20 SQ CM/< 05/15/2007 Debridement infected moira cyst upper mid back PAST SURGICAL HISTORY OF 1984 metal removed from right tibial area PAST SURGICAL HISTORY OF [facility] PAST SURGICAL HISTORY OF Right 11/2022 Tear duct bocklage lanced TOTAL ABDOMINAL HYSTERECT W/WO RMVL TUBE OVARY 1999 MAURICE/BSO-pain, no abnormal paps FAMILY HISTORY Problem Relation Age of Onset None Mother from fall Diabetes Father Ischemic Heart Disease Father d. [place] Ischemic Heart Disease Maternal Grandfather d. [place] while holding her at 4mo Blindness Brother Heart Attack Brother Social History Tobacco Use Smoking status: Never Smokeless tobacco: Never Vaping Use Vaping Use: Never used Substance Use Topics Alcohol use: No Drug use: No Objective BP 134/76 Pulse 83 Temp 36.8 ?C (98.3 ?F) Resp 18 Wt 93.6 kg (206 lb 6.4 oz) SpO2 96% BMI (more content not included)... [facility] 02-10-2023 History of Present illness Narrative This note was created using NoteWriter. Subjective Romain L Selleck is a 72 year old female. HPI Presents with cough wheezing over the past 4 days. She denies vomiting or diarrhea. She states last night she felt the chest tightness worsen. She does have a history of asthma. She has been using her albuterol nebulizer. She did have a fever yesterday of 100.6. Home COVID test was negative. Denies sick contacts. Review of Systems Constitutional: Positive for fatigue and fever. HENT: Positive for congestion. Negative for ear pain and sore throat. Respiratory: Positive for cough, chest tightness, shortness of breath and wheezing. Cardiovascular: Negative. Gastrointestinal: Negative. Genitourinary: Negative. Musculoskeletal: Negative. Skin: Negative. All other systems reviewed and are negative. PAST MEDICAL HISTORY Diagnosis Date Arthropathy, unspecified, site unspecified Asthma Back pain Calculus of kidney 05/09/2018 Colon polyps 2014 Diverticulitis 2000 Environmental allergies GERD (gastroesophageal reflux disease) Hyperlipidemia lifestyle controlled Hypertension IBS (irritable bowel syndrome) Migraine Obesity Pseudophakia 12/2021 both Current Outpatient Medications Medication Sig Dispense Refill colestipol (COLESTID) 1 gram tablet Take by mouth. metoprolol tartrate, short acting, (LOPRESSOR) 25 mg tablet Take 0.5 tablets by mouth twice daily. 90 tablet 3 verapamil SR (CALAN SR) 240 mg CR tablet Take 1 tablet by mouth daily at bedtime. 90 tablet 3 atorvastatin (LIPITOR) 40 mg tablet Take 1 tablet by mouth once daily. [address] (PROTONIX) 20 mg tablet Take 1 tablet by mouth once daily. 90 tablet 3 docusate sodium (STOOL SOFTENER ORAL) Take by mouth once daily. methylPREDNISolone (MEDROL, PONCHO,) 4 mg Dose-Pack Take by mouth as directed until finished. 21 tablet 0 fluticasone-salmeterol (ADVAIR DISKUS) 100-50 mcg/dose inhaler Inhale 1 Puff as instructed twice daily. RINSE AND GARGLE MOUTH WITH WATER AFTER EACH USE. 180 Each 3 loratadine (CLARITIN) 10 mg tablet Take 1 tablet by mouth once daily. cyclobenzaprine HCl (FLEXERIL ORAL) Take by mouth. (Patient not taking: Reported on 12/14/2022) cyclobenzaprine (FLEXERIL) 10 mg tablet (Patient not taking: Reported on 12/14/2022) albuterol HFA (PROVENTIL HFA, VENTOLIN HFA) 90 mcg/actuation inhaler Inhale 2 Puffs as instructed every 6 hours as needed. 18 g 0 albuterol (PROVENTIL) 2.5 mg /3 mL (0.083 %) nebulizer solution Use 3 mL via nebulizer every 4 hours as needed for wheezing/shortness of breath. Use over 5-15minutes. 90 mL 3 apixaban (ELIQUIS) 5 mg tab(s) Take 5 mg by mouth twice daily. Will start when delivered ondansetron orally disintegrating (ZOFRAN ODT) 4 mg disintegrating tablet DISSOLVE 1 TABLET ON THE TONGUE EVERY 6 HOURS NEEDED FOR NAUSEA/VOMITING 90 tablet 0 EPINEPHrine (AUVI-Q) 0.3 mg/0.3 mL auto-injector Inject 0.3 mL intramuscularly as needed. 2 Each 3 meclizine (ANTIVERT) 25 mg tab Take 1 tablet by mouth every 6 hours as needed (dizziness). 90 tablet 0 fluticasone (FLONASE) 50 mcg/actuation nasal spray Use 2 Sprays in each nostril once daily. 3 Bottle 3 bifidobacteri bifid.and longum (FLORAJEN BIFIDOBLEND) 460 mg (9-1 bill.cell) cap Take 1 capsule by mouth once daily. 30 capsule 1 cycloSPORINE (RESTASIS) 0.05 % ophthalmic emulsion Use 1 Drop in both eyes twice daily. Both eyes. (Patient not taking: Reported on 12/14/2022) Nebulizer NEBULIZER FOR HOME USE. DX: J45.20 1 Device 0 No current facility-administered medications for this visit. PAST SURGICAL HISTORY Procedure Laterality Date CHOLECYSTECTOMY ~2003 Cholecystectomy laparoscopic COLONOSCOPY & POLYPECTOMY 12/03/2013 tubular adenoma, hyperplastic polyp; repeat due in 5y COLONOSCOPY FLX DX W/COLLJ SPEC WHEN PFRMD 05/29/2018 Colonoscopy DEBRIDEMENT SUBCUTANEOUS TISSUE 20 SQ CM/< 05/15/2007 Debridement infected moira cyst upper mid back PAST SURGICAL HISTORY OF 1984 metal removed from right tibial area PAST SURGICAL HISTORY OF [facility] PAST SURGICAL HISTORY OF Right 11/2022 Tear duct bocklage lanced TOTAL ABDOMINAL HYSTERECT W/WO RMVL TUBE OVARY 1999 MAURICE/BSO-pain, no abnormal paps FAMILY HISTORY Problem Relation Age of Onset None Mother from fall Diabetes Father Ischemic Heart Disease Father d. [place] Ischemic Heart Disease Maternal Grandfather d. [place] while holding her at 4mo Blindness Brother Heart Attack Brother Social History Tobacco Use Smoking status: Never Smokeless tobacco: Never Vaping Use Vaping Use: Never used Substance Use Topics Alcohol use: No Drug use: No Objective BP 134/76 Pulse 83 Temp 36.8 C (98.3 F) Resp 18 Wt 93.6 kg (206 lb 6.4 oz) SpO2 96% BMI 33.31 kg/m Physical Exam Vitals reviewed. Constitutional: Appearance: Normal appearance. HENT: Head: Normocephalic and atraumatic. Right Ear: Tympanic membrane, ear canal and external ear normal. Left Ear: Tympanic membrane, ear canal and external ear normal. Nose: Congestion present. Mouth/Throat: Mouth: Mucous membranes are moist. Pharynx: Oropharynx is clear. Cardiovascular: Rate and Rhythm: Normal rate and regular rhythm. Heart sounds: Normal heart sounds. Pulmonary: Effort: Pulmonary effort is normal. No respiratory distress. Breath sounds: Wheezing present. No rhonchi. Musculoskeletal: Cervical back: Neck supple. Skin: General: Skin is warm and dry. Neurological: Mental Status: She is alert. Assessment and Plan ASSESSMENT/PLAN: 1. Bronchitis - ICD9: 490, ICD10: J40 Chest x-ray shows no pneumonia. She does have some scarring present. I feel she does have a viral bronchitis. Likely flaring up her asthma. Will treat with prednisone and Tessalon. She was given a DuoNeb here and does feel improved. Will have her follow-up with PCP. She declined COVID flu RSV PCR testing. - XR CHEST 2V FRONTAL/LAT - IPRATROPIUM 0.5 MG-ALBUTEROL 3 MG (2.5 MG BASE)/3 ML NEBULIZATION MAUDE Wilson PA-C documented in this encounter [facility] 02-10-2023 Note HNO ID: [id number] Author: Reanna Pham RT(R) Service: ? Author Type: Director Of Corporate Real Estate Type: Progress Notes Filed: 02/10/2023 9:48 AM Note Text: Radiology Service Progress Note PATIENT NAME: Romain Bailey DATE OF SERVICE: February 10, 2023 TIME: 9:39 AM PATIENT IDENTITY VERIFICATION COMPLETED USING TWO (2) IDENTIFIERS: Name and Date of confirmed by patient verbally. FALL SCREENING: Has the patient had 2 falls in the last year or 1 fall with injury or currently using an Ambulatory Assistive Device (Walker, Cane, Wheelchair, Crutches, etc.)? Yes, Patient High Risk for Falls What interventions were put in place to prevent falls during this visit? Increased Observations by Caregivers PATIENT GENDER DATA: Female. status: : No status: NO. PATIENT RELEVANT IMPLANT DATA REVIEWED: Yes RADIOLOGY DEPARTMENT: General X-ray: Exam(s) Completed: Chest X-Ray PERIPHERAL IV DATA: Not applicable SIGNED BY: RT Juan(R) February 10, 2023 9:39 AM [facility] 01-01-2023 Instructions Faith Mullins APRN.CNS - 01/01/2023 9:14 AM EST Consider getting RSV and shingles vaccine at your local pharmacy documented in this encounter [facility] 01-01-2023 History of Present illness Narrative SUBJECTIVE: Spirometry Never done Shingrix Vaccine(1 of 2) Never done RSV Vaccine(1 - 1-dose 60+ series) Never done Mammogram Screening due on 06/26/2017 Advance Directive Discussion due on 02/26/2022 Influenza Vaccine(1) due on 10/27/2022 Covid-19 Vaccine(2022- season) due on 10/27/2022 HPI Romain Bailey is a 72 year old female. PMH is significant for ACTIVE PROBLEM LIST Environmental Allergies Asthma Arthropathy, Unspecified, Site Unspecified Essential Hypertension Ibs (Irritable Bowel Syndrome) Gerd (Gastroesophageal Reflux Disease) Migraine Hyperlipidemia, Mixed History of Colon Polyps Chronic Pain of Right Knee Primary Osteoarthritis of Right Knee Bppv (Benign Paroxysmal Positional Vertigo) Bee Sting Allergy Bilateral Low Back Pain With Bilateral Sciatica Calculus of Kidney Llq Pain History of Tia (Transient Ischemic Attack) Dry Skin Sacroiliitis (Hcc) History of Asthma Acquired Stenosis of Nasolacrimal Duct, Right Unspecified Dacryocystitis of Right Lacrimal Passage Unspecified Injury of Right Lower Leg, Initial Encounter Chest Pain Contusion of Left Wrist Contusion of Knee, Left Contusion of Elbow Colitis HPI excerpted from previous visit: PCP: Erik Reynolds MD Seen by Dr Rogers 06/2021. Since last here had GIB, colitis at [facility] 09/15/2021. Seen by Dr Cowan 11/2021 in office. Colonoscopy end of October. Fibroscan recommended, then follow up recommended. Presents at [facility] to establish care. She reports losing her job and pandemic and getting behind intermittent. Notes her current landlord is trying to evict her. She reports she reached out to community action about 1 month ago and does not hurt anymore from her landlord. Seen by Fatemeh Rogers MD June 2022. Noted plan to follow-up with pain management regarding sacroiliitis. Seen by [facility] spine provider, see my chart message July 2022. Note she is in her usual state of health. Notes she has 5 pies to make for her large family for the . Followed by [facility].Dr Damico [facility] pharmacologic myocardial perfusion stress test completed for chest pain. Negative for ischemia, preserved ejection fraction. On chronic OAC. No bleeding difficulties. Express care visit September 07 for swelling of gland right eyelid. ER visit November 04, 2022, [facility] for fall and right wrist injury. Express care visit November 16 for upper respiratory infection. Express care visit for infection of right eye November 25, 2022. She has subsequently followed up with [facility]. Has a February appointment regarding her right lacrimal gland. Cataract surgery both eyes this last year. IBS, GERD, colitis. Seen by Dr Cowan [facility]. Taking colestipol which helps with diarrhea. Taking every other day because it causes constipation when taking daily Notes recurrence of left shoulder pain, some pain with movement, decreased range of motion, crepitus. Has been completing HEP which is helped somewhat. Has taken Tylenol which is helped somewhat. We will hold off on any additional medication or referral to PT or orthopedics at this time. She will let us know if not improving. HTN: Occasional palpitations. headache, chest pain, dyspnea, peripheral edema, orthopnea, fatigue, and PND. Last 14 Encounter BP Readings: Date: BP: 11/25/2022 128/74 11/16/2022 170/80 09/07/2022 126/72 08/10/2022 108/50 06/30/2022 122/64 04/11/2022 136/80 01/10/2022 136/78 12/22/2021 140/80 10/11/2021 136/80 08/15/2021 142/78 08/12/2021 130/72 06/29/2021 156/74 01/25/2021 132/68 01/06/2021 144/72 Hyperlipidemia. Ms. Bailey reports doing well on current therapy Her most recent lipid panels are: Cholesterol, Total (mg/dL) Date Value 08/19/2021 175 07/29/2018 150 04/06/2018 168 Total Cholesterol, Nonfasting (mg/dL) Date Value 06/30/2022 183 HDL Cholesterol (mg/dL) Date Value 08/19/2021 45 07/29/2018 45 04/06/2018 44 HDL Cholesterol, Nonfasting (mg/dL) Date Value 06/30/2022 46 LDL Cholesterol (mg/dL) Date Value 08/19/2021 107 04/06/2018 107 03/17/2017 127 LDL Cholesterol, Nonfasting (mg/dL) Date Value 06/30/2022 92 LDL Calculated (mg/dL) Date Value 07/29/2018 95 Triglyceride (mg/dL) Date Value 08/19/2021 113 07/29/2018 52 04/06/2018 83 Triglycerides, Nonfasting (mg/dL) Date Value 06/30/2022 224 Asthma: chronic shortness of breath on exertion primarily; stable. No recent exacerbation Sees Dr Wilson for left foot drop. Has FO left foot. Plans to get new shoes at [employer] [facility]. Review of Systems Constitutional: Negative. Respiratory: Positive for shortness of breath (SOBOE moderate exertion). Cardiovascular: Negative. Objective BP 126/77 Pulse 74 Resp 16 Wt 93.4 kg (206 lb) BMI 33.25 kg/m Physical Exam Vitals and nursing note reviewed. Constitutional: Appearance: Normal appearance. HENT: Head: Normocephalic and atraumatic. Eyes: Conjunctiva/sclera: Conjunctivae normal. Neck: Thyroid: No thyromegaly. Vascular: Normal carotid pulses. No JVD. Cardiovascular: Rate and Rhythm: Normal rate and regular rhythm. Pulses: Carotid pulses are 2+ on the right side and 2+ on the left side. Heart sounds: Normal heart sounds. Pulmonary: Effort: Pulmonary effort is normal. Breath sounds: Normal breath sounds. Abdominal: General: Bowel sounds are normal. Palpations: Abdomen is soft. Musculoskeletal: Right lower leg: No edema. Left lower leg: No edema. Skin: General: Skin is warm and dry. Neurological: General: No focal deficit present. Mental Status: She is alert and oriented to person, place, and time. ALLERGIES Allergen Reactions Adhesive Tape (Marilou* Rash Bactrim Ds [Sulfame* Anaphylaxis Difficulty breathing, fever, chills Bee Sting Anaphylaxis Darvon [Propoxyphen* Influenza Virus Vac* Other: See Comments Chest tightness, arm swelling. colestipol (COLESTID) 1 gram tablet Take by mouth. metoprolol tartrate, short acting, (LOPRESSOR) 25 mg tablet Take 0.5 tablets by mouth twice daily. verapamil SR (CALAN SR) 240 mg CR tablet Take 1 tablet by mouth daily at bedtime. atorvastatin (LIPITOR) 40 mg tablet Take 1 tablet by mouth once daily. pantoprazole DR (PROTONIX) 20 mg tablet Take 1 tablet by mouth once daily. docusate sodium (STOOL SOFTENER ORAL) Take by mouth once daily. methylPREDNISolone (MEDROL, PONCHO,) 4 mg Dose-Pack Take by mouth as directed until finished. fluticasone-salmeterol (ADVAIR DISKUS) 100-50 mcg/dose inhaler Inhale 1 Puff as instructed twice daily. RINSE AND GARGLE MOUTH WITH WATER AFTER EACH USE. loratadine (CLARITIN) 10 mg tablet Take 1 tablet by mouth once daily. albuterol HFA (PROVENTIL HFA, VENTOLIN HFA) 90 mcg/actuation inhaler Inhale 2 Puffs as instructed every 6 hours as needed. albuterol (PROVENTIL) 2.5 mg /3 mL (0.083 %) nebulizer solution Use 3 mL via nebulizer every 4 hours as needed for wheezing/shortness of breath. Use over 5-15minutes. apixaban (ELIQUIS) 5 mg tab(s) Take 5 mg by mouth twice daily. Will start when delivered ondansetron orally disintegrating (ZOFRAN ODT) 4 mg disintegrating tablet DISSOLVE 1 TABLET ON THE TONGUE EVERY 6 HOURS NEEDED FOR NAUSEA/VOMITING EPINEPHrine (AUVI-Q) 0.3 mg/0.3 mL auto-injector Inject 0.3 mL intramuscularly as needed. meclizine (ANTIVERT) 25 mg tab Take 1 tablet by mouth every 6 hours as needed (dizziness). fluticasone (FLONASE) 50 mcg/actuation nasal spray Use 2 Sprays in each nostril once daily. bifidobacteri bifid.and longum (FLORAJEN BIFIDOBLEND) 460 mg (9-1 bill.cell) cap Take 1 capsule by mouth once daily. Nebulizer NEBULIZER FOR HOME USE. DX: J45.20 cyclobenzaprine HCl (FLEXERIL ORAL) Take by mouth. (Patient not taking: Reported on 12/14/2022) cyclobenzaprine (FLEXERIL) 10 mg tablet (Patient not taking: Reported on 12/14/2022) cycloSPORINE (RESTASIS) 0.05 % ophthalmic emulsion Use 1 Drop in both eyes twice daily. Both eyes. (Patient not taking: Reported on 12/14/2022) PAST MEDICAL HISTORY Diagnosis Date Arthropathy, unspecified, site unspecified Asthma Back pain Calculus of kidney 05/09/2018 Colon polyps 2014 Diverticulitis 2000 Environmental allergies GERD (gastroesophageal reflux disease) Hyperlipidemia lifestyle controlled Hypertension IBS (irritable bowel syndrome) Migraine Obesity Pseudophakia 12/2021 both Social History Tobacco Use Smoking status: Never Smokeless tobacco: Never Vaping Use Vaping Use: Never used Substance Use Topics Alcohol use: No Drug use: No Component Latest Ref Rng & Units 08/19/2021 11/18/2021 06/30/2022 WBC 3.70 - 11.00 k/uL 6.10 6.4 6.83 RBC 3.90 - 5.20 m/uL 5.11 5.05 5.03 Hemoglobin 11.5 - 15.5 g/dL 13.0 13.1 Hematocrit 36.0 - 46.0 % 43.5 43.0 MCV 80.0 - 100.0 fL 85.1 83.6 85.5 MCH 26.0 - 34.0 pg 25.4 (L) 25.9 (A) 26.0 MCHC 30.5 - 36.0 g/dL 29.9 (L) 31 (A) 30.5 RDW-CV 11.5 - 15.0 % 14.2 15 14.1 Platelet Count 150 - 400 k/uL 312 289 315 MPV 9.0 - 12.7 fL 11.6 9.9 11.0 Neut% % 58.7 Abs Neut (ANC) 1.45 - 7.50 k/uL 4.02 Lymph% % 28.6 Abs Lymph 1.00 - 4.00 k/uL 1.95 Esmeralda% % 9.6 10.0 Abs Esmeralda <0.87 k/uL 0.68 Eosin% % 1.5 Abs Eosin <0.46 k/uL 0.10 Baso% % 0.9 0.9 Abs Baso <0.11 k/uL 0.06 Immature Gran % % 0.3 IMMATURE GRANS (ABS) <0.10 k/uL <0.03 NRBC /100 WBC 0.0 Absolute nRBC <0.01 k/uL <0.01 <0.01 DTYPE Auto HGB 12 - 16 g/dL 13.1 HCT 33 - 42 % 42.2 (A) RDW-SD 45.4 Neutrophil % % 61.9 LYMPHOCYTES % 25.4 EOS % 1 - 3 % 1.7 IgA 0.500 NEUTROPHILS ABSOLUTE 1.4 - 7.0 k/uL 3.9 Lymphocytes, Absolute 1.61 NUCLEATED RBCS 0 Protein, Total 6.3 - 8.0 g/dL 6.1 (L) Albumin 3.9 - 4.9 g/dL 4.3 Calcium 8.5 - 10.2 mg/dL 9.0 9.2 Bilirubin, Total 0.2 - 1.3 mg/dL 0.3 Alkaline Phosphatase 34 - 123 U/L 150 (H) AST 13 - 35 U/L 25 ALT 7 - 38 U/L 19 Glucose 74 - 99 mg/dL 99 86 BUN 7 - 21 mg/dL 16 20 Creatinine 0.58 - 0.96 mg/dL 0.86 0.86 Sodium 136 - 144 mmol/L 142 143 Potassium 3.7 - 5.1 mmol/L 4.1 4.3 Chloride 97 - 105 mmol/L 105 105 CO2 22 - 30 mmol/L 25 28 Anion Gap 9 - 18 mmol/L 12 10 eGFR >=60 mL/min/1.73m 73 72 Cholesterol, Total <200 mg/dL 175 Triglyceride <150 mg/dL 113 HDL Cholesterol >39 mg/dL 45 Non HDL Cholesterol <130 mg/dL 130 (H) Fasting Time hrs 12 VLDL Cholesterol <30 mg/dL 23 TC:HDL Ratio <5.10 3.89 LDL Cholesterol <100 mg/dL 107 (H) LDL:HDL Ratio <2.54 2.38 Total Cholesterol, Nonfasting <200 mg/dL 183 Triglycerides, Nonfasting <150 mg/dL 224 (H) HDL Cholesterol, Nonfasting >39 mg/dL 46 LDL Cholesterol, Nonfasting <100 mg/dL 92 Non HDL Cholesterol, Nonfasting <130 mg/dL 137 (H) VLDL Cholesterol, Nonfasting <30 mg/dL 45 (H) Total Chol/HDL Ratio, Nonfasting <5.10 mg/dL 3.98 LDL/HDL Ratio, Nonfasting <2.54 mg/dL 2.00 Iron 41 - 186 ug/dL 45 TIBC 232 - 386 ug/dL 317 Transferrin Saturation 15.0 - 57.0 % 14.2 (L) Hemoglobin A1C 4.3 - 5.6 % 5.6 Estimated Average Glucose mg/dL 114 ASSESSMENT/PLAN: 1. Asthma - ICD9: 493.90, ICD10: J45.909 (primary diagnosis) stable - Continue current medications - Avoidance of triggers recommended - SPIROMETRY - BASELINE AND POST DILATOR 2. Need for shingles vaccine - ICD9: V04.89, ICD10: Z23 - [employer] PRINTED PHARMACY INSTRUCTIONS 3. Encounter for immunization - ICD9: V03.89, ICD10: Z23 - [employer] PRINTED PHARMACY INSTRUCTIONS - INFLUENZA VACCINE, PRSV FREE, AGE 65+ YR, HIGH DOSE, QUADRIVALENT (FLUZONE HIGH-DOSE) - [employer]. COVID-19 VACCINE (2022- SEASON) AGE 12+ YR 4. Essential hypertension - ICD9: 401.9, ICD10: I10 - Controlled - Continue current medications - Encouraged sodium restriction, DASH or Mediterranean diet - Recommend regular aerobic exercise - COMP METABOLIC PANEL - CBC + DIFF 5. Irritable bowel syndrome without diarrhea - ICD9: 564.1, ICD10: K58.9 6. Gastroesophageal reflux disease, unspecified whether esophagitis present - ICD9: 530.81, ICD10: K21.9 Notes IBS is improved taking colestipol. Without GERD complaints. Has been seen by Dr. Cowan gastroenterology at [facility]. 7. Hyperlipidemia, mixed - ICD9: 272.2, ICD10: E78.2 Recommend a plant based diet such as Mediterranean diet with plenty of vegetables, fruits,whole grains, fish, chicken, turkey or plant proteins and routine exercise such as walking - Continue current medications - LIPID PANEL BASIC 8. Elevated glucose - ICD9: 790.29, ICD10: R73.09 - HGB A1C 9. Chronic left shoulder pain - ICD9: 719.41, 338.29, ICD10: M25.512, G89.29 She will continue with Tylenol and HEP, will let us know if wants to see PT or Ortho if not improving. 6 mo follow up Fatemeh Rogers MD with labs Faith Mullins APRN.CNS Medical Decision Making: Problems: Moderate: 2+ stable chronic illnesses Risk: Moderate: Drug management Medical Decision Making Level: 4 - Moderate documented in this encounter [facility] 01-01-2023 Note HNO ID: [id number] Author: Faith Mullins APRN.CNS Service: ? Author Type: Nurse Specialist Type: Progress Notes Filed: 01/01/2023 10:02 AM Note Text: SUBJECTIVE: Spirometry Never done Shingrix Vaccine(1 of 2) Never done RSV Vaccine(1 - 1-dose 60+ series) Never done Mammogram Screening due on 06/26/2017 Advance Directive Discussion due on 02/26/2022 Influenza Vaccine(1) due on 10/27/2022 Covid-19 Vaccine(2022- season) due on 10/27/2022 HPI Romain Bailey is a 72 year old female. PMH is significant for ACTIVE PROBLEM LIST Environmental Allergies Asthma Arthropathy, Unspecified, Site Unspecified Essential Hypertension Ibs (Irritable Bowel Syndrome) Gerd (Gastroesophageal Reflux Disease) Migraine Hyperlipidemia, Mixed History of Colon Polyps Chronic Pain of Right Knee Primary Osteoarthritis of Right Knee Bppv (Benign Paroxysmal Positional Vertigo) Bee Sting Allergy Bilateral Low Back Pain With Bilateral Sciatica Calculus of Kidney Llq Pain History of Tia (Transient Ischemic Attack) Dry Skin Sacroiliitis (Hcc) History of Asthma Acquired Stenosis of Nasolacrimal Duct, Right Unspecified Dacryocystitis of Right Lacrimal Passage Unspecified Injury of Right Lower Leg, Initial Encounter Chest Pain Contusion of Left Wrist Contusion of Knee, Left Contusion of Elbow Colitis HPI excerpted from previous visit: PCP: Erik Reynolds MD Seen by Dr Rogers 06/2021. Since last here had GIB, colitis at [facility] 09/15/2021. Seen by Dr Cowan 11/2021 in office. Colonoscopy end of October. Fibroscan recommended, then follow up recommended. Presents at [facility] to establish care. She reports losing her job and pandemic and getting behind intermittent. Notes her current landlord is trying to evict her. She reports she reached out to community action about 1 month ago and does not hurt anymore from her landlord. Seen by Fatemeh Rogers MD June 2022. Noted plan to follow-up with pain management regarding sacroiliitis. Seen by [facility] spine provider, see my chart message July 2022. Note she is in her usual state of health. Notes she has 5 pies to make for her large family for the . Followed by [facility].Dr Damico [facility] pharmacologic myocardial perfusion stress test completed for chest pain. Negative for ischemia, preserved ejection fraction. On chronic OAC. No bleeding difficulties. Express care visit September 07 for swelling of gland right eyelid. ER visit November 04, 2022, [facility] for fall and right wrist injury. Express care visit November 16 for upper respiratory infection. Express care visit for infection of right eye November 25, 2022. She has subsequently followed up with [facility]. Has a February appointment regarding her right lacrimal gland. Cataract surgery both eyes this last year. IBS, GERD, colitis. Seen by Dr Cowan [facility]. Taking colestipol which helps with diarrhea. Taking every other day because it causes constipation when taking daily Notes recurrence of left shoulder pain, some pain with movement, decreased range of motion, crepitus. Has been completing HEP which is helped somewhat. Has taken Tylenol which is helped somewhat. We will hold off on any additional medication or referral to PT or orthopedics at this time. She will let us know if not improving. HTN: Occasional palpitations. headache, chest pain, dyspnea, peripheral edema, orthopnea, fatigue, and PND. Last 14 Encounter BP Readings: Date: BP: 11/25/2022 128/74 11/16/2022 170/80 09/07/2022 126/72 08/10/2022 108/50 06/30/2022 122/64 04/11/2022 136/80 01/10/2022 136/78 12/22/2021 140/80 10/11/2021 136/80 08/15/2021 142/78 08/12/2021 130/72 06/29/2021 156/74 01/25/2021 132/68 01/06/2021 144/72 Hyperlipidemia. Ms. Bailey reports doing well on current therapy Her most recent lipid panels are: Cholesterol, Total (mg/dL) Date Value 08/19/2021 175 07/29/2018 150 04/06/2018 168 Total Cholesterol, Nonfasting (mg/dL) Date Value 06/30/2022 183 HDL Cholesterol (mg/dL) Date Value 08/19/2021 45 07/29/2018 45 04/06/2018 44 HDL Cholesterol, Nonfasting (mg/dL) Date Value 06/30/2022 46 LDL Cholesterol (mg/dL) Date Value 08/19/2021 107 04/06/2018 107 03/17/2017 127 LDL Cholesterol, Nonfasting (mg/dL) Date Value 06/30/2022 92 LDL Calculated (mg/dL) Date Value 07/29/2018 95 Triglyceride (mg/dL) Date Value 08/19/2021 113 07/29/2018 52 04/06/2018 83 Triglycerides, Nonfasting (mg/dL) Date Value 06/30/2022 224 Asthma: chronic shortness of breath on exertion primarily; stable. No recent exacerbation Sees Dr Wilson for left foot drop. Has FO left foot. Plans to get new shoes at [employer] [facility]. Review of Systems Constitutional: Negative. Respiratory: Positive for shortness of breath (SOBOE moderate exertion). Cardiovascular: Negative. Obj (more content not included)... [facility] 12-14-2022 Note HNO ID: [id number] Author: Emi Sage Ma Service: ? Author Type: ? Type: Progress Notes Filed: 01/10/2023 8:09 AM Note Text: PT ASSESSMENT - CASTING ROOM Romain presents for Application of brace. Applied modabber wrist brace to Right wrist Patient has been instructed in Care and proper application of brace. Emi Sage Ma [facility] 12-14-2022 History of Present illness Narrative PT ASSESSMENT - CASTING ROOM Romain presents for Application of brace. Applied modabber wrist brace to Right wrist Patient has been instructed in Care and proper application of brace. Emi Sage Ma Dwight Encarnacion MD Department of Orthopaedics Orthopaedics [address] [facility] [address] Dept: [phone] Dept December 14, 2022 CHIEF COMPLAINT: Established Patient and Pain of the Right Wrist and Last seen 08/09/20 Left ankle sprain HPI Patient here for evaluation right wrist pain. Patient states she slipped on water in her kitchen on 11/04/22 and her wrist hit the doorknob on the door. She lives in an old house that was a glass knob. Patient is having pain on the lateral aspect that can radiate around to her palm. Patient is right hand dominant. Uses left hand to ambulate with her cane. Taking Tylenol for the pain and does help. X-rays done at [facility] ED and are uploaded into [employer]. She was given and chapis wrap to wear on her wrist but felt it didn't help. New x-rays done today. ASSESSMENT: M25.531 Right wrist pain (primary encounter diagnosis) M18.11 Primary osteoarthritis of first carpometacarpal joint of right hand PLAN: Overall, her wrist is feeling a little bit better. She does have severe CMC and STT arthritis which is likely contributing a bit as well. Tenderness over the ulnar fossa, cortisone injection down the line if she needs/wishes. My recommendation is for some bracing and a topical anti-inflammatory. We can at a later date to discuss any possibilities for her thumb if necessary. Ms. Romain Bailey was advised as to contrast therapies and/or to take analgesics/anti-inflammatories as needed and all contraindications were reviewed. OBJECTIVE: Ms. Romain Bailey is a pleasant 72 year old in no apparent distress. Gen:There were no vitals taken for this visit. nl development, non obese, no deformities ENT: Normocephalic, normal hearing, moist mucosa CV: Pulses:Radial= 2+ and symmetric, capillary refill < 2 secs, no peripheral edema/varicosities Skin: no rash, bruising or lesions. Good turgor. Psych: cooperative and appropriate, alert and oriented x 3, good mood and affect. Musculoskeletal: Ulnar gutter tenderness. Imaging: IMPRESSION: Osteoarthritis, severe at the 1st CMC joint. No fracture or radiopaque foreign body. Basting Cleaner: PSCB Transcribe Date/Time: Dec 17 2022 12:03P Dictated by : KACY GONZALEZ MD This examination was interpreted and the report reviewed and electronically signed by: KACY GONZALEZ MD on Dec 17 2022 12:04PM EST Results-Findings * * *Final Report* * * DATE OF EXAM: Dec 14 2022 8:39AM [id number] - XR WRIST 3V PA/LAT/OBL RT / PROCEDURE REASON: Pain * * * * Physician Interpretation * * * * X-RAYS RIGHT WRIST HISTORY: fell a month ago and hit right wrist on glass knob in [place] has throbbing still ulnar side with swelling. Pain TECHNIQUE: 3 views COMPARISON: 07/28/2017 x-rays RESULT: Severe 1st CMC joint and moderate triscaphe joint osteoarthritis. No acute fracture or dislocation. There is underlying osteopenia noted. No discrete soft tissue abnormality identified. No radiopaque foreign body identified within the soft tissues. Supporting Subjective Information Below: Past Surgical History: PAST SURGICAL HISTORY Procedure Laterality Date CHOLECYSTECTOMY ~2003 Cholecystectomy laparoscopic COLONOSCOPY & POLYPECTOMY 12/03/2013 tubular adenoma, hyperplastic polyp; repeat due in 5y COLONOSCOPY FLX DX W/COLLJ SPEC WHEN PFRMD 05/29/2018 Colonoscopy DEBRIDEMENT SUBCUTANEOUS TISSUE 20 SQ CM/< 05/15/2007 Debridement infected moira cyst upper mid back PAST SURGICAL HISTORY OF 1984 metal removed from right tibial area PAST SURGICAL HISTORY OF [facility] PAST SURGICAL HISTORY OF Right 11/2022 Tear duct bocklage lanced TOTAL ABDOMINAL HYSTERECT W/WO RMVL TUBE OVARY 1999 MAURICE/BSO-pain, no abnormal paps Medications: Current Outpatient Medications Medication Sig metoprolol tartrate, short acting, (LOPRESSOR) 25 mg tablet Take 0.5 tablets by mouth twice daily. atorvastatin (LIPITOR) 40 mg tablet Take 1 tablet by mouth once daily. pantoprazole DR (PROTONIX) 20 mg tablet Take 1 tablet by mouth once daily. docusate sodium (STOOL SOFTENER ORAL) Take by mouth once daily. fluticasone-salmeterol (ADVAIR DISKUS) 100-50 mcg/dose inhaler Inhale 1 Puff as instructed twice daily. RINSE AND GARGLE MOUTH WITH WATER AFTER EACH USE. loratadine (CLARITIN) 10 mg tablet Take 1 tablet by mouth once daily. ammonium lactate (LAC-HYDRIN) 12 % lotion Apply 1 application to affected area once daily as needed for dry skin (arms). albuterol HFA (PROVENTIL HFA, VENTOLIN HFA) 90 mcg/actuation inhaler Inhale 2 Puffs as instructed every 6 hours as needed. albuterol (PROVENTIL) 2.5 mg /3 mL (0.083 %) nebulizer solution Use 3 mL via nebulizer every 4 hours as needed for wheezing/shortness of breath. Use over 5-15minutes. apixaban (ELIQUIS) 5 mg tab(s) Take 5 mg by mouth twice daily. Will start when delivered ondansetron orally disintegrating (ZOFRAN ODT) 4 mg disintegrating tablet DISSOLVE 1 TABLET ON THE TONGUE EVERY 6 HOURS NEEDED FOR NAUSEA/VOMITING EPINEPHrine (AUVI-Q) 0.3 mg/0.3 mL auto-injector Inject 0.3 mL intramuscularly as needed. meclizine (ANTIVERT) 25 mg tab Take 1 tablet by mouth every 6 hours as needed (dizziness). fluticasone (FLONASE) 50 mcg/actuation nasal spray Use 2 Sprays in each nostril once daily. bifidobacteri bifid.and longum (FLORAJEN BIFIDOBLEND) 460 mg (9-1 bill.cell) cap Take 1 capsule by mouth once daily. Nebulizer NEBULIZER FOR HOME USE. DX: J45.20 verapamil SR (CALAN SR) 240 mg CR tablet Take 1 tablet by mouth daily at bedtime. methylPREDNISolone (MEDROL, PONCHO,) 4 mg Dose-Pack Take by mouth as directed until finished. (Patient not taking: Reported on 12/14/2022) cyclobenzaprine HCl (FLEXERIL ORAL) Take by mouth. (Patient not taking: Reported on 12/14/2022) cyclobenzaprine (FLEXERIL) 10 mg tablet (Patient not taking: Reported on 12/14/2022) cycloSPORINE (RESTASIS) 0.05 % ophthalmic emulsion Use 1 Drop in both eyes twice daily. Both eyes. (Patient not taking: Reported on 12/14/2022) No current facility-administered medications for this visit. Allergies: Adhesive Tape (Rosins), Bactrim Ds [Sulfamethoxazole-Trimethoprim], Bee Sting, Darvon [Propoxyphene Hcl], and Influenza Virus Vaccines ROS: General (negative for fatigue, malaise, weight loss/gain) HEENT (negative for headache, earache, recent vision changes, sinus pain, sore throat) Respiratory (no recent shortness of breath, hemoptysis) CV (negative for chest tightness, palpitations) Musculoskeletal (see HPI) Psych (no depression, anxiety) Dwight Encarnacion MD documented in this encounter [facility] 12-14-2022 Note HNO ID: [id number] Author: Dwight Encarnacion MD Service: ? Author Type: Physician Type: Progress Notes Filed: 01/10/2023 8:09 AM Note Text: Dwight Encarnacion MD Department of Orthopaedics Orthopaedics [address] [facility] [address] Dept: [phone] Dept December 14, 2022 CHIEF COMPLAINT: Established Patient and Pain of the Right Wrist and Last seen 08/09/20 Left ankle sprain HPI Patient here for evaluation right wrist pain. Patient states she slipped on water in her kitchen on 11/04/22 and her wrist hit the doorknob on the door. She lives in an old house that was a glass knob. Patient is having pain on the lateral aspect that can radiate around to her palm. Patient is right hand dominant. Uses left hand to ambulate with her cane. Taking Tylenol for the pain and does help. X-rays done at [facility] ED and are uploaded into [employer]. She was given and chapis wrap to wear on her wrist but felt it didn't help. New x-rays done today. ASSESSMENT: M25.531 Right wrist pain (primary encounter diagnosis) M18.11 Primary osteoarthritis of first carpometacarpal joint of right hand PLAN: Overall, her wrist is feeling a little bit better. She does have severe CMC and STT arthritis which is likely contributing a bit as well. Tenderness over the ulnar fossa, cortisone injection down the line if she needs/wishes. My recommendation is for some bracing and a topical anti-inflammatory. We can at a later date to discuss any possibilities for her thumb if necessary. Ms. Romain Bailey was advised as to contrast therapies and/or to take analgesics/anti-inflammatories as needed and all contraindications were reviewed. OBJECTIVE: Ms. Romain Bailey is a pleasant 72 year old in no apparent distress. Gen:There were no vitals taken for this visit. nl development, non obese, no deformities ENT: Normocephalic, normal hearing, moist mucosa CV: Pulses:Radial= 2+ and symmetric, capillary refill < 2 secs, no peripheral edema/varicosities Skin: no rash, bruising or lesions. Good turgor. Psych: cooperative and appropriate, alert and oriented x 3, good mood and affect. Musculoskeletal: Ulnar gutter tenderness. Imaging: IMPRESSION: Osteoarthritis, severe at the 1st CMC joint. No fracture or radiopaque foreign body. Basting Cleaner: ROSITA Transcribe Date/Time: Dec 17 2022 12:03P Dictated by : KACY GONZALEZ MD This examination was interpreted and the report reviewed and electronically signed by: KACY GONZALEZ MD on Dec 17 2022 12:04PM EST Results-Findings * * *Final Report* * * DATE OF EXAM: Dec 14 2022 8:39AM [id number] - XR WRIST 3V PA/LAT/OBL RT / PROCEDURE REASON: Pain * * * * Physician Interpretation * * * * X-RAYS RIGHT WRIST HISTORY: fell a month ago and hit right wrist on glass knob in [place] has throbbing still ulnar side with swelling. Pain TECHNIQUE: 3 views COMPARISON: 07/28/2017 x-rays RESULT: Severe 1st CMC joint and moderate triscaphe joint osteoarthritis. No acute fracture or dislocation. There is underlying osteopenia noted. No discrete soft tissue abnormality identified. No radiopaque foreign body identified within the soft tissues. Supporting Subjective Information Below: Past Surgical History: PAST SURGICAL HISTORY Procedure Laterality Date CHOLECYSTECTOMY ~2003 Cholecystectomy laparoscopic COLONOSCOPY AND POLYPECTOMY 12/03/2013 tubular adenoma, hyperplastic polyp; repeat due in 5y COLONOSCOPY FLX DX W/COLLJ SPEC WHEN PFRMD 05/29/2018 Colonoscopy DEBRIDEMENT SUBCUTANEOUS TISSUE 20 SQ CM/< 05/15/2007 Debridement infected moira cyst upper mid back PAST SURGICAL HISTORY OF 1984 metal removed from right tibial area PAST SURGICAL HISTORY OF [facility] PAST SURGICAL HISTORY OF Right 11/2022 Tear duct bocklage lanced TOTAL ABDOMINAL HYSTERECT W/WO RMVL TUBE OVARY 1999 MAURICE/BSO-pain, no abnormal paps Medications: Current Outpatient Medications Medication Sig metoprolol tartrate, short acting, (LOPRESSOR) 25 mg tablet Take 0.5 tablets by mouth twice daily. atorvastatin (LIPITOR) 40 mg tablet Take 1 tablet by mouth once daily. pantoprazole DR (PROTONIX) 20 mg tablet Take 1 tablet by mouth once daily. docusate sodium (STOOL SOFTENER ORAL) Take by mouth once daily. fluticasone-salmeterol (ADVAIR DISKUS) 100-50 mcg/dose inhaler Inhale 1 Puff as instructed twice daily. RINSE AND GARGLE MOUTH WITH WATER AFTER EACH USE. loratadine (CLARITIN) 10 mg tablet Take 1 tablet by mouth once daily. ammonium lactate (LAC-HYDRIN) 12 % lotion Apply 1 application to affected area once daily as needed for dry skin (arms). albuterol HFA (PROVENTIL HFA, VENTOLIN HFA) 90 mcg/actuation inhaler Inhale 2 Puffs as instructed every 6 hours as needed. albuterol (PROVENTIL) 2.5 mg /3 mL (0.083 %) nebulizer solution Use 3 mL via nebulizer every 4 hours as needed for wheezing/shortness of breath. Use over 5 (more content not included)... [facility] 12-14-2022 Note HNO ID: [id number] Author: Stacia Mcgregor RT(R) Service: Radiology Author Type: Technologist Type: Progress Notes Filed: 12/14/2022 8:39 AM Note Text: Radiology Service Progress Note PATIENT NAME: Romain Bailey DATE OF SERVICE: December 14, 2022 TIME: 8:30 AM PATIENT IDENTITY VERIFICATION COMPLETED USING TWO (2) IDENTIFIERS: Name and Date of confirmed by patient verbally. FALL SCREENING: Has the patient had 2 falls in the last year or 1 fall with injury or currently using an Ambulatory Assistive Device (Walker, Cane, Wheelchair, Crutches, etc.)? No PATIENT GENDER DATA: Female. status: : No status: NO. PATIENT RELEVANT IMPLANT DATA REVIEWED: Not Applicable RADIOLOGY DEPARTMENT: General X-ray: Exam(s) Completed: Upper Extremity X-Ray(s): Wrist, right PERIPHERAL IV DATA: Not applicable SIGNED BY: RT Shadia(R) December 14, 2022 8:30 AM [facility] 11-25-2022 Note HNO ID: [id number] Author: Lori Engel APRN.[employer] LUGGAGE MOLDER Service: ? Author Type: Nurse Practitioner Type: Progress Notes Filed: 11/25/2022 2:54 PM Note Text: Subjective Came in with complaints of right eye irritation and drainage. Patient says she had the same thing back in mid summer. Patient said she had erythromycin ointment and went away. Patient has not seen an eye doctor in many years. Patient denies any vision changes. The history is provided by the patient. No aerial gunner was used. Review of Systems Constitutional: Negative. Skin: Negative. Objective Physical Exam Constitutional: Appearance: Normal appearance. Eyes: Comments: Firm lump in the area marked above. Patient does have green mucousy drainage in and around her eye. Pulmonary: Effort: Pulmonary effort is normal. Neurological: Mental Status: She is alert. PAST MEDICAL HISTORY Diagnosis Date Arthropathy, unspecified, site unspecified Asthma Back pain Calculus of kidney 05/09/2018 Colon polyps 2014 Diverticulitis 2000 Environmental allergies GERD (gastroesophageal reflux disease) Hyperlipidemia lifestyle controlled Hypertension IBS (irritable bowel syndrome) Migraine Obesity Pseudophakia 12/2021 both PAST SURGICAL HISTORY Procedure Laterality Date CHOLECYSTECTOMY ~2003 Cholecystectomy laparoscopic COLONOSCOPY AND POLYPECTOMY 12/03/2013 tubular adenoma, hyperplastic polyp; repeat due in 5y COLONOSCOPY FLX DX W/COLLJ SPEC WHEN PFRMD 05/29/2018 Colonoscopy DEBRIDEMENT SUBCUTANEOUS TISSUE 20 SQ CM/< 05/15/07 Debridement infected moira cyst upper mid back PAST SURGICAL HISTORY OF 1984 metal removed from right tibial area PAST SURGICAL HISTORY OF [facility] TOTAL ABDOMINAL HYSTERECT W/WO RMVL TUBE OVARY 1999 MAURICE/BSO-pain, no abnormal paps ALLERGIES Adhesive Tape (Rosins), Bactrim Ds [Sulfamethoxazole-Trimethoprim], Bee Sting, Darvon [Propoxyphene Hcl], Influenza Virus Vaccines, and Prednisone MEDICATIONS metoprolol tartrate, short acting, (LOPRESSOR) 25 mg tablet Take 0.5 tablets by mouth twice daily. verapamil SR (CALAN SR) 240 mg CR tablet Take 1 tablet by mouth daily at bedtime. atorvastatin (LIPITOR) 40 mg tablet Take 1 tablet by mouth once daily. pantoprazole DR (PROTONIX) 20 mg tablet Take 1 tablet by mouth once daily. docusate sodium (STOOL SOFTENER ORAL) Take by mouth once daily. methylPREDNISolone (MEDROL, PONCHO,) 4 mg Dose-Pack Take by mouth as directed until finished. fluticasone-salmeterol (ADVAIR DISKUS) 100-50 mcg/dose inhaler Inhale 1 Puff as instructed twice daily. RINSE AND GARGLE MOUTH WITH WATER AFTER EACH USE. loratadine (CLARITIN) 10 mg tablet Take 1 tablet by mouth once daily. cyclobenzaprine HCl (FLEXERIL ORAL) Take by mouth. cyclobenzaprine (FLEXERIL) 10 mg tablet ammonium lactate (LAC-HYDRIN) 12 % lotion Apply 1 application to affected area once daily as needed for dry skin (arms). albuterol HFA (PROVENTIL HFA, VENTOLIN HFA) 90 mcg/actuation inhaler Inhale 2 Puffs as instructed every 6 hours as needed. albuterol (PROVENTIL) 2.5 mg /3 mL (0.083 %) nebulizer solution Use 3 mL via nebulizer every 4 hours as needed for wheezing/shortness of breath. Use over 5-15minutes. apixaban (ELIQUIS) 5 mg tab(s) Take 5 mg by mouth twice daily. Will start when delivered ondansetron orally disintegrating (ZOFRAN ODT) 4 mg disintegrating tablet DISSOLVE 1 TABLET ON THE TONGUE EVERY 6 HOURS NEEDED FOR NAUSEA/VOMITING EPINEPHrine (AUVI-Q) 0.3 mg/0.3 mL auto-injector Inject 0.3 mL intramuscularly as needed. meclizine (ANTIVERT) 25 mg tab Take 1 tablet by mouth every 6 hours as needed (dizziness). fluticasone (FLONASE) 50 mcg/actuation nasal spray Use 2 Sprays in each nostril once daily. bifidobacteri bifid.and longum (FLORAJEN BIFIDOBLEND) 460 mg (9-1 bill.cell) cap Take 1 capsule by mouth once daily. cycloSPORINE (RESTASIS) 0.05 % ophthalmic emulsion Use 1 Drop in both eyes twice daily. Both eyes. Nebulizer NEBULIZER FOR HOME USE. DX: J45.20 erythromycin (ROMYCIN) 5 mg/gram (0.5 %) ophthalmic ointment Use 1 application in the right eye four times daily for 7 days. FAMILY HISTORY Problem Relation Age of Onset None Mother from fall Diabetes Father Ischemic Heart Disease Father d[place] Ischemic Heart Disease Maternal Grandfather d. [place] while holding her at 4mo Blindness Brother Heart Attack Brother Social History Tobacco Use Smoking status: Never Smokeless tobacco: Never Vaping Use Vaping Use: Never used Substance Use Topics Alcohol use: No Drug use: No ASSESSMENT/PLAN: 1. Infection of right eye - ICD9: 360.00, ICD10: H44.001 - ERYTHROMYCIN 5 MG/GRAM (0.5 %) EYE OINTMENT Was educated about proper use of medication supportive therapies. Patient will follow-up with eye doctor. Patient was okay with this care plan. Lori Engel APRN.[facility] 11-25-2022 History of Present illness Narrative Images from the original note were not included. Subjective Came in with complaints of right eye irritation and drainage. Patient says she had the same thing back in mid summer. Patient said she had erythromycin ointment and went away. Patient has not seen an eye doctor in many years. Patient denies any vision changes. The history is provided by the patient. No aerial gunner was used. Review of Systems Constitutional: Negative. Skin: Negative. Objective Physical Exam Constitutional: Appearance: Normal appearance. Eyes: Comments: Firm lump in the area marked above. Patient does have green mucousy drainage in and around her eye. Pulmonary: Effort: Pulmonary effort is normal. Neurological: Mental Status: She is alert. PAST MEDICAL HISTORY Diagnosis Date Arthropathy, unspecified, site unspecified Asthma Back pain Calculus of kidney 05/09/2018 Colon polyps 2014 Diverticulitis 2000 Environmental allergies GERD (gastroesophageal reflux disease) Hyperlipidemia lifestyle controlled Hypertension IBS (irritable bowel syndrome) Migraine Obesity Pseudophakia 12/2021 both PAST SURGICAL HISTORY Procedure Laterality Date CHOLECYSTECTOMY ~2003 Cholecystectomy laparoscopic COLONOSCOPY & POLYPECTOMY 12/03/2013 tubular adenoma, hyperplastic polyp; repeat due in 5y COLONOSCOPY FLX DX W/COLLJ SPEC WHEN PFRMD 05/29/2018 Colonoscopy DEBRIDEMENT SUBCUTANEOUS TISSUE 20 SQ CM/< 05/15/07 Debridement infected moira cyst upper mid back PAST SURGICAL HISTORY OF 1984 metal removed from right tibial area PAST SURGICAL HISTORY OF [facility] TOTAL ABDOMINAL HYSTERECT W/WO RMVL TUBE OVARY 1999 MAURICE/BSO-pain, no abnormal paps ALLERGIES Adhesive Tape (Rosins), Bactrim Ds [Sulfamethoxazole-Trimethoprim], Bee Sting, Darvon [Propoxyphene Hcl], Influenza Virus Vaccines, and Prednisone MEDICATIONS metoprolol tartrate, short acting, (LOPRESSOR) 25 mg tablet Take 0.5 tablets by mouth twice daily. verapamil SR (CALAN SR) 240 mg CR tablet Take 1 tablet by mouth daily at bedtime. atorvastatin (LIPITOR) 40 mg tablet Take 1 tablet by mouth once daily. pantoprazole DR (PROTONIX) 20 mg tablet Take 1 tablet by mouth once daily. docusate sodium (STOOL SOFTENER ORAL) Take by mouth once daily. methylPREDNISolone (MEDROL, PONCHO,) 4 mg Dose-Pack Take by mouth as directed until finished. fluticasone-salmeterol (ADVAIR DISKUS) 100-50 mcg/dose inhaler Inhale 1 Puff as instructed twice daily. RINSE AND GARGLE MOUTH WITH WATER AFTER EACH USE. loratadine (CLARITIN) 10 mg tablet Take 1 tablet by mouth once daily. cyclobenzaprine HCl (FLEXERIL ORAL) Take by mouth. cyclobenzaprine (FLEXERIL) 10 mg tablet ammonium lactate (LAC-HYDRIN) 12 % lotion Apply 1 application to affected area once daily as needed for dry skin (arms). albuterol HFA (PROVENTIL HFA, VENTOLIN HFA) 90 mcg/actuation inhaler Inhale 2 Puffs as instructed every 6 hours as needed. albuterol (PROVENTIL) 2.5 mg /3 mL (0.083 %) nebulizer solution Use 3 mL via nebulizer every 4 hours as needed for wheezing/shortness of breath. Use over 5-15minutes. apixaban (ELIQUIS) 5 mg tab(s) Take 5 mg by mouth twice daily. Will start when delivered ondansetron orally disintegrating (ZOFRAN ODT) 4 mg disintegrating tablet DISSOLVE 1 TABLET ON THE TONGUE EVERY 6 HOURS NEEDED FOR NAUSEA/VOMITING EPINEPHrine (AUVI-Q) 0.3 mg/0.3 mL auto-injector Inject 0.3 mL intramuscularly as needed. meclizine (ANTIVERT) 25 mg tab Take 1 tablet by mouth every 6 hours as needed (dizziness). fluticasone (FLONASE) 50 mcg/actuation nasal spray Use 2 Sprays in each nostril once daily. bifidobacteri bifid.and longum (FLORAJEN BIFIDOBLEND) 460 mg (9-1 bill.cell) cap Take 1 capsule by mouth once daily. cycloSPORINE (RESTASIS) 0.05 % ophthalmic emulsion Use 1 Drop in both eyes twice daily. Both eyes. Nebulizer NEBULIZER FOR HOME USE. DX: J45.20 erythromycin (ROMYCIN) 5 mg/gram (0.5 %) ophthalmic ointment Use 1 application in the right eye four times daily for 7 days. FAMILY HISTORY Problem Relation Age of Onset None Mother from fall Diabetes Father Ischemic Heart Disease Father d. [place] Ischemic Heart Disease Maternal Grandfather d. [place] while holding her at 4mo Blindness Brother Heart Attack Brother Social History Tobacco Use Smoking status: Never Smokeless tobacco: Never Vaping Use Vaping Use: Never used Substance Use Topics Alcohol use: No Drug use: No ASSESSMENT/PLAN: 1. Infection of right eye - ICD9: 360.00, ICD10: H44.001 - ERYTHROMYCIN 5 MG/GRAM (0.5 %) EYE OINTMENT Was educated about proper use of medication supportive therapies. Patient will follow-up with eye doctor. Patient was okay with this care plan. Lori Engel APRN.[facility] documented in this encounter [facility] 11-16-2022 Note HNO ID: [id number] Author: Reanna Pham RT(R) Service: ? Author Type: Director Of Corporate [employer] Type: Progress Notes Filed: 11/16/2022 5:09 PM Note Text: Radiology Service Progress Note PATIENT NAME: Romain Bailey DATE OF SERVICE: November 16, 2022 TIME: 5:00 PM PATIENT IDENTITY VERIFICATION COMPLETED USING TWO (2) IDENTIFIERS: Name and Date of confirmed by patient verbally. FALL SCREENING: Has the patient had 2 falls in the last year or 1 fall with injury or currently using an Ambulatory Assistive Device (Walker, Cane, Wheelchair, Crutches, etc.)? Yes, Patient High Risk for Falls What interventions were put in place to prevent falls during this visit? Offered Assistance with Transfers/Clothing, Instructed Patient to Remain Seated (Not on Exam Table) Until Exam, and Increased Observations by Caregivers PATIENT GENDER DATA: Female. status: : No status: NO. PATIENT RELEVANT IMPLANT DATA REVIEWED: Yes RADIOLOGY DEPARTMENT: General X-ray: Exam(s) Completed: Chest X-Ray PERIPHERAL IV DATA: Not applicable SIGNED BY: RT Juan(R) November 16, 2022 5:00 PM [facility] 11-16-2022 Instructions Komal Walter APRN.[facility] 11/16/2022 4:54 PM EDT Fact Sheet for Patients And Caregivers Emergency Use Authorization (EUA) Of LAGEVRIO (molnupiravir) capsules For Coronavirus Disease 2019 (COVID-19) What is the most important information I should know about LAGEVRIO? LAGEVRIO may cause serious side effects, including: LAGEVRIO may cause harm to your unborn baby. It is not known if LAGEVRIO will harm your baby if you take LAGEVRIO during . LAGEVRIO is not recommended for use in . LAGEVRIO has not been studied in . LAGEVRIO was studied in animals only. When LAGEVRIO was given to animals, LAGEVRIO caused harm to their unborn babies. You and your healthcare provider may decide that you should take LAGEVRIO during if there are no other COVID-19 treatment options approved or authorized by the FDA that are accessible or clinically appropriate for you. If you and your healthcare provider decide that you should take LAGEVRIO during , you and your healthcare provider should discuss the known and potential benefits and the potential risks of taking LAGEVRIO during . For individuals who are able to become : You should use a reliable method of control (contraception) consistently and correctly during treatment with LAGEVRIO and for 4 days after the last dose of LAGEVRIO. Talk to your healthcare provider about reliable control methods. Before starting treatment with LAGEVRIO your healthcare provider may do a test to see if you are before starting treatment with LAGEVRIO. Tell your healthcare provider right away if you become or think you may be during treatment with LAGEVRIO. Registry: There is a registry for individuals who take LAGEVRIO during . The purpose of this program is to collect information about the health of you and your baby. If you are or become during treatment with LAGEVRIO, you are encouraged to report your use of LAGEVRIO during to this registry at https://covid-pr.[employer] or . For individuals who are sexually active with partners who are able to become : It is not known if LAGEVRIO can affect sperm. While the risk is regarded as low, animal studies to fully assess the potential for LAGEVRIO to affect the babies of males treated with LAGEVRIO have not been completed. A reliable method of control (contraception) should be used consistently and correctly during treatment with LAGEVRIO and for at least 3 months after the last dose. The risk to sperm beyond 3 months is not known. Studies to understand the risk to sperm beyond 3 months are ongoing. Talk to your healthcare provider about reliable control methods. Talk to your healthcare provider if you have questions or concerns about how LAGEVRIO may affect sperm. You are being given this fact sheet because your healthcare provider believes it is necessary to provide you with LAGEVRIO for the treatment of adults with a current diagnosis of mild-tomoderate coronavirus disease 2019 (COVID-19) who are at high risk for progression to severe COVID-19, including hospitalization or , and for whom other COVID-19 treatment options approved or authorized by the FDA are not accessible or clinically appropriate. The [place]. Food and Drug Administration (FDA) has issued an Emergency Use Authorization (EUA) to make LAGEVRIO available during the COVID-19 pandemic (for more details about an EUA please see What is an Emergency Use Authorization? at the end of this document). LAGEVRIO is not an FDA-approved medicine in the [place]. Read this Fact Sheet for information about LAGEVRIO. Talk to your healthcare provider about your options if you have any questions. It is your choice to take LAGEVRIO. What is COVID-19? COVID-19 is caused by a virus called a coronavirus. You can get COVID-19 through close contact with another person who has the virus. COVID-19 illnesses have ranged from very [id number]-hiblcl, including illness resulting in . While information so far suggests that most COVID-19 illness is mild, serious illness can happen and may cause some of your other medical conditions to become worse. Older people and people of all ages with severe, long lasting (chronic) medical conditions like heart disease, lung disease and diabetes, for example seem to be at higher risk of being hospitalized for COVID-19. What is LAGEVRIO? LAGEVRIO is an investigational medicine used to treat adults with a current diagnosis of mild to moderate COVID-19: who are at high risk for progression to severe COVID-19 including hospitalization or , and for whom other COVID-19 treatment options approved or authorized by the FDA are not accessible or clinically appropriate. The FDA has authorized the emergency use of LAGEVRIO for the treatment of mild-tomoderate COVID-19 in adults under an EUA. For more information on EUA, see the What is an Emergency Use Authorization (EUA)? section at the end of this Fact Sheet. LAGEVRIO is not authorized: for use in people less than 18 years of age. for prevention of COVID-19. for people needing hospitalization for COVID-19. for use for longer than 5 consecutive days. What should I tell my healthcare provider before I take LAGEVRIO? Tell your healthcare provider if you: have any allergies are or plan to breastfeed have any serious illnesses Take any medicines including prescription, ziiv-jbu-isomryu medicines, vitamins, and herbal products. How do I take LAGEVRIO? Take LAGEVRIO exactly as your healthcare provider tells you to take it. Take 4 capsules of LAGEVRIO every 12 hours (for example, at 8 am and at 8 pm) Take LAGEVRIO for 5 days. It is important that you complete the full 5 days of treatment with LAGEVRIO. Do not stop taking LAGEVRIO before you complete the full 5 days of treatment, even if you feel better. Take LAGEVRIO with or without food. You should stay in isolation for as long as your healthcare provider tells you to. Talk to your healthcare provider if you are not sure about how to properly isolate while you have COVID-19. Swallow LAGEVRIO capsules whole. Do not open, break, or crush the capsules. If you cannot swallow capsules whole, tell your healthcare provider. If your healthcare provider prescribes LAGEVRIO and tells you to take or give a dose through a nasogastric (NG) or orogastric (OG) tube, follow the instructions below: How to take or give a dose of LAGEVRIO through a nasogastric (NG) or orogastric (OG) feeding tube. You must have an NG or OG that is size 12 Swedish (FR) or larger. If you miss a dose of LAGEVRIO: If it has been less than 10 hours since the missed dose, take it as soon as you remember. If it has been more than 10 hours since the missed dose, skip the missed dose and take your dose at the next scheduled time. Do not double the dose of LAGEVRIO to make up for a missed dose. How to take or give a dose of LAGEVRIO through a nasogastric (NG) or orogastric (OG) feeding tube: Wash your hands well with soap and water. Gather the supplies you will need to take or give the prescribed dose of LAGEVRIO. 4 LAGEVRIO capsules 1 liquid measuring cup with mL markings to measure 40 mL of room temperature water 1 clean container with a lid 1 catheter tip syringe. Your healthcare provider should tell you what size catheter tip syringe you will need to take or give a dose of LAGEVRIO. Place the needed supplies on a clean work surface. Follow your healthcare provider s instructions on how to flush the NG or OG feeding tube. Flush the NG or OG feeding tube with 5 mL of water before taking or giving a dose of LAGEVRIO. Carefully open 4 LAGEVRIO capsules, one at a time, and empty the contents into a clean container. Use the liquid measuring cup to measure 40 mL of room temperature water and add to the container containing the capsule contents. Place the lid on the container. Shake to mix the capsule contents and water well for 3 minutes. The capsule contents may not dissolve completely. Remove the lid from the container and draw up all the LAGEVRIO and water mixture into a catheter tip syringe. Give all of the mixture right away through the NG or OG feeding tube. Do not keep the mixture for future use. If any capsule contents are left in the container: Add 10 mL of water to the container, and mix to loosen any capsule contents that are left in the container. Use the catheter tip syringe to draw up all of the mixture in the container. Give the mixture through the NG or OG feeding tube. Repeat this process as needed until you no longer see any capsule contents left in the container or catheter tip syringe. Use the same catheter tip syringe to flush the NG or OG feeding tube 2 times with 5 mL of water (10mL total). Rinse the container, lid and catheter tip syringe well with clean water after use. Place on a clean paper towel until next use. What are the important possible side effects of LAGEVRIO? See, What is the most important information I should know about LAGEVRIO? Allergic Reactions. Allergic reactions can happen in people taking LAGEVRIO, even after only 1 dose. Stop taking LAGEVRIO and call your healthcare provider right away if you get any of the following symptoms of an allergic reaction: hives rapid heartbeat trouble swallowing or breathing swelling of the mouth, lips, or face throat tightness hoarseness skin rash The most common side effects of LAGEVRIO are: diarrhea nausea dizziness These are not all the possible side effects of LAGEVRIO. Not many people have taken LAGEVRIO. Serious and unexpected side effects may happen. This medicine is still being studied, so it is possible that all of the risks are not known at this time. What other treatment choices are there? Veklury (remdesivir) is FDA-approved as an intravenous (IV) infusion for the treatment of mildto-moderate COVID-19 in certain adults and children. Talk with your doctor to see if Veklury is appropriate for you. Like LAGEVRIO, FDA may also allow for the emergency use of other medicines to treat people with COVID-19. Go to https://www.fda.gov/emergency-pre tgjupzmbk-car-ikyztjgl/mcm-legalr wcpbboedt-qow-jpngcy-framework/em oegyexr-dfy-puwrqxxwmvxfo for more information. It is your choice to be treated or not to be treated with LAGEVRIO. Should you decide not to take it, it will not change your standard medical care. What if I am ? is not recommended during treatment with LAGEVRIO and for 4 days after the last dose of LAGEVRIO. If you are or plan to breastfeed, talk to your healthcare provider about your options and specific situation before taking LAGEVRIO. How do I report side effects with LAGEVRIO? Contact your healthcare provider if you have any side effects that bother you or do not go away. Report side effects to FDA MedWatch at www.fda.gov/medwatch or call 1-264-NYO-2217 (1734.991.1533). How should I store LAGEVRIO? Store LAGEVRIO capsules at room temperature between 68 F to 77 F (20 C to 25 C). Keep LAGEVRIO and all medicines out of the reach of children. How can I learn more about COVID-19? Ask your healthcare provider. Visit www.cdc.gov/COVID19 Contact your local or state public health department. Call [employer] at (toll free in the [place] Visit www[employer] What Is an Emergency Use Authorization (EUA)? The [place] FDA has made LAGEVRIO available under an emergency access mechanism called an Emergency Use Authorization (EUA) The EUA is supported by a [place] of Health and Human Service (HHS) declaration that circumstances exist to justify emergency use of drugs and biological products during the COVID-19 pandemic. LAGEVRIO for the treatment of adults with a current diagnosis of ljpj-zg-xqhzrquz COVID-19 who are at high risk for progression to severe COVID-19, including hospitalization or , and for whom alternative COVID-19 treatment options approved or authorized by FDA are not accessible or clinically appropriate, has not undergone the same type of review as an FDAapproved product. In issuing an EUA under the COVID-19 public health emergency, the FDA has determined, among other things, that based on the total amount of scientific evidence available including data from adequate and well-controlled clinical trials, if available, it is reasonable to believe that the product may be effective for diagnosing, treating, or preventing COVID-19, or a serious or life-threatening disease or condition caused by COVID-19; that the known and potential benefits of the product, when used to diagnose, treat, or prevent such disease or condition, outweigh the known and potential risks of such product; and that there are no adequate, approved, and available alternatives. All of these criteria must be met to allow for the product to be used in the treatment of patients during the COVID-19 pandemic. The EUA for LAGEVRIO is in effect for the duration of the COVID-19 declaration justifying emergency use of LAGEVRIO, unless terminated or revoked (after which LAGEVRIO may no longer be used under the EUA). Thierry. for: [employer] [address] For patent information: www.[employer]/research/patent Copyright [employer] [place], [place], [facility] and its affiliates. All rights reserved. [id number] Revised: March 2022 documented in this encounter [facility] 11-16-2022 Note HNO ID: [id number] Author: Komal Walter APRN.[employer] Service: ? Author Type: Nurse Practitioner Type: Progress Notes Filed: 11/16/2022 6:04 PM Note Text: Subjective HPI HPI Romain Bailey is a 72 year old female who presents today for CC of cough, congestion, fever. This started 3 days ago. Has tried otc medication for relief. Symptoms are worsened by nothing. Risk factors recent sick exposures. Hx of asthma. .Patient presents with: Cough: Congestion in nasal and chest, sneezing, low grade fever, scratchy throat, x 3 days PAST MEDICAL HISTORY Diagnosis Date Arthropathy, unspecified, site unspecified Asthma Back pain Calculus of kidney 05/09/2018 Colon polyps 2014 Diverticulitis 2000 Environmental allergies GERD (gastroesophageal reflux disease) Hyperlipidemia lifestyle controlled Hypertension IBS (irritable bowel syndrome) Migraine Obesity Pseudophakia 12/2021 both PAST SURGICAL HISTORY Procedure Laterality Date CHOLECYSTECTOMY ~2004 Cholecystectomy laparoscopic COLONOSCOPY AND POLYPECTOMY 12/03/2013 tubular adenoma, hyperplastic polyp; repeat due in 5y COLONOSCOPY FLX DX W/COLLJ SPEC WHEN PFRMD 05/29/2018 Colonoscopy DEBRIDEMENT SUBCUTANEOUS TISSUE 20 SQ CM/< 3 Debridement infected moira cyst upper mid back PAST SURGICAL HISTORY OF 1984 metal removed from right tibial area PAST SURGICAL HISTORY OF [facility] TOTAL ABDOMINAL HYSTERECT W/WO RMVL TUBE OVARY 1999 MAURICE/BSO-pain, no abnormal paps ALLERGIES Adhesive Tape (Rosins), Bactrim Ds [Sulfamethoxazole-Trimethoprim], Bee Sting, Darvon [Propoxyphene Hcl], Influenza Virus Vaccines, and Prednisone MEDICATIONS metoprolol tartrate, short acting, (LOPRESSOR) 25 mg tablet Take 0.5 tablets by mouth twice daily. verapamil SR (CALAN SR) 240 mg CR tablet Take 1 tablet by mouth daily at bedtime. atorvastatin (LIPITOR) 40 mg tablet Take 1 tablet by mouth once daily. pantoprazole DR (PROTONIX) 20 mg tablet Take 1 tablet by mouth once daily. erythromycin (ROMYCIN) 5 mg/gram (0.5 %) ophthalmic ointment Use 1 application in the right eye four times daily. docusate sodium (STOOL SOFTENER ORAL) Take by mouth once daily. methylPREDNISolone (MEDROL, PONCHO,) 4 mg Dose-Pack Take by mouth as directed until finished. fluticasone-salmeterol (ADVAIR DISKUS) 100-50 mcg/dose inhaler Inhale 1 Puff as instructed twice daily. RINSE AND GARGLE MOUTH WITH WATER AFTER EACH USE. loratadine (CLARITIN) 10 mg tablet Take 1 tablet by mouth once daily. [id number] 3.5 MG/ML-10,000 UNIT/ML-0.1% EYE DROPS 1 drop right eye four times a day for 1 week then three times a day for 1 week, then two times a day for 1 week, then once a day for 1 wk cyclobenzaprine HCl (FLEXERIL ORAL) Take by mouth. cyclobenzaprine (FLEXERIL) 10 mg tablet ammonium lactate (LAC-HYDRIN) 12 % lotion Apply 1 application to affected area once daily as needed for dry skin (arms). albuterol HFA (PROVENTIL HFA, VENTOLIN HFA) 90 mcg/actuation inhaler Inhale 2 Puffs as instructed every 6 hours as needed. albuterol (PROVENTIL) 2.5 mg /3 mL (0.083 %) nebulizer solution Use 3 mL via nebulizer every 4 hours as needed for wheezing/shortness of breath. Use over 5-15minutes. apixaban (ELIQUIS) 5 mg tab(s) Take 5 mg by mouth twice daily. Will start when delivered ondansetron orally disintegrating (ZOFRAN ODT) 4 mg disintegrating tablet DISSOLVE 1 TABLET ON THE TONGUE EVERY 6 HOURS NEEDED FOR NAUSEA/VOMITING EPINEPHrine (AUVI-Q) 0.3 mg/0.3 mL auto-injector Inject 0.3 mL intramuscularly as needed. meclizine (ANTIVERT) 25 mg tab Take 1 tablet by mouth every 6 hours as needed (dizziness). fluticasone (FLONASE) 50 mcg/actuation nasal spray Use 2 Sprays in each nostril once daily. bifidobacteri bifid.and longum (FLORAJEN BIFIDOBLEND) 460 mg (9-1 bill.cell) cap Take 1 capsule by mouth once daily. cycloSPORINE (RESTASIS) 0.05 % ophthalmic emulsion Use 1 Drop in both eyes twice daily. Both eyes. Nebulizer NEBULIZER FOR HOME USE. DX: J45.20 FAMILY HISTORY Problem Relation Age of Onset None Mother from fall Diabetes Father Ischemic Heart Disease Father d. [place] Ischemic Heart Disease Maternal Grandfather d. [place] while holding her at 4mo Blindness Brother Heart Attack Brother Social History Tobacco Use Smoking status: Never Smokeless tobacco: Never Vaping Use Vaping Use: Never used Substance Use Topics Alcohol use: No Drug use: No Review of Systems Constitutional: Negative for fever. HENT: Positive for congestion and sore throat. Negative for ear pain and nosebleeds. Respiratory: Positive for cough and shortness of breath. Negative for wheezing. Gastrointestinal: Negative for diarrhea and vomiting. Musculoskeletal: Negative for neck pain. Skin: Negative for itching and rash. Objective Blood pressure 170/80, pulse 71, temperature 37.3 ?C (99.2 ?F), resp. rate 22, weight 93.4 kg (more content not included)... [facility] 11-16-2022 History of Present illness Narrative Subjective HPI HPI Romain Bailey is a 72 year old female who presents today for CC of cough, congestion, fever. This started 3 days ago. Has tried otc medication for relief. Symptoms are worsened by nothing. Risk factors recent sick exposures. Hx of asthma. .Patient presents with: Cough: Congestion in nasal and chest, sneezing, low grade fever, scratchy throat, x 3 days PAST MEDICAL HISTORY Diagnosis Date Arthropathy, unspecified, site unspecified Asthma Back pain Calculus of kidney 05/09/2018 Colon polyps 2013 Diverticulitis 2000 Environmental allergies GERD (gastroesophageal reflux disease) Hyperlipidemia lifestyle controlled Hypertension IBS (irritable bowel syndrome) Migraine Obesity Pseudophakia 12/2021 both PAST SURGICAL HISTORY Procedure Laterality Date CHOLECYSTECTOMY ~2003 Cholecystectomy laparoscopic COLONOSCOPY & POLYPECTOMY 12/03/2013 tubular adenoma, hyperplastic polyp; repeat due in 5y COLONOSCOPY FLX DX W/COLLJ SPEC WHEN PFRMD 05/29/2018 Colonoscopy DEBRIDEMENT SUBCUTANEOUS TISSUE 20 SQ CM/< 05/15/07 Debridement infected moira cyst upper mid back PAST SURGICAL HISTORY OF 1984 metal removed from right tibial area PAST SURGICAL HISTORY OF [facility] TOTAL ABDOMINAL HYSTERECT W/WO RMVL TUBE OVARY 1999 MAUIRCE/BSO-pain, no abnormal paps ALLERGIES Adhesive Tape (Rosins), Bactrim Ds [Sulfamethoxazole-Trimethoprim], Bee Sting, Darvon [Propoxyphene Hcl], Influenza Virus Vaccines, and Prednisone MEDICATIONS metoprolol tartrate, short acting, (LOPRESSOR) 25 mg tablet Take 0.5 tablets by mouth twice daily. verapamil SR (CALAN SR) 240 mg CR tablet Take 1 tablet by mouth daily at bedtime. atorvastatin (LIPITOR) 40 mg tablet Take 1 tablet by mouth once daily. pantoprazole DR (PROTONIX) 20 mg tablet Take 1 tablet by mouth once daily. erythromycin (ROMYCIN) 5 mg/gram (0.5 %) ophthalmic ointment Use 1 application in the right eye four times daily. docusate sodium (STOOL SOFTENER ORAL) Take by mouth once daily. methylPREDNISolone (MEDROL, PONCHO,) 4 mg Dose-Pack Take by mouth as directed until finished. fluticasone-salmeterol (ADVAIR DISKUS) 100-50 mcg/dose inhaler Inhale 1 Puff as instructed twice daily. RINSE AND GARGLE MOUTH WITH WATER AFTER EACH USE. loratadine (CLARITIN) 10 mg tablet Take 1 tablet by mouth once daily. [id number]-[id number]-ISRGTQOS 3.5 MG/ML-10,000 UNIT/ML-0.1% EYE DROPS 1 drop right eye four times a day for 1 week then three times a day for 1 week, then two times a day for 1 week, then once a day for 1 wk cyclobenzaprine HCl (FLEXERIL ORAL) Take by mouth. cyclobenzaprine (FLEXERIL) 10 mg tablet ammonium lactate (LAC-HYDRIN) 12 % lotion Apply 1 application to affected area once daily as needed for dry skin (arms). albuterol HFA (PROVENTIL HFA, VENTOLIN HFA) 90 mcg/actuation inhaler Inhale 2 Puffs as instructed every 6 hours as needed. albuterol (PROVENTIL) 2.5 mg /3 mL (0.083 %) nebulizer solution Use 3 mL via nebulizer every 4 hours as needed for wheezing/shortness of breath. Use over 5-15minutes. apixaban (ELIQUIS) 5 mg tab(s) Take 5 mg by mouth twice daily. Will start when delivered ondansetron orally disintegrating (ZOFRAN ODT) 4 mg disintegrating tablet DISSOLVE 1 TABLET ON THE TONGUE EVERY 6 HOURS NEEDED FOR NAUSEA/VOMITING EPINEPHrine (AUVI-Q) 0.3 mg/0.3 mL auto-injector Inject 0.3 mL intramuscularly as needed. meclizine (ANTIVERT) 25 mg tab Take 1 tablet by mouth every 6 hours as needed (dizziness). fluticasone (FLONASE) 50 mcg/actuation nasal spray Use 2 Sprays in each nostril once daily. bifidobacteri bifid.and longum (FLORAJEN BIFIDOBLEND) 460 mg (9-1 bill.cell) cap Take 1 capsule by mouth once daily. cycloSPORINE (RESTASIS) 0.05 % ophthalmic emulsion Use 1 Drop in both eyes twice daily. Both eyes. Nebulizer NEBULIZER FOR HOME USE. DX: J45.20 FAMILY HISTORY Problem Relation Age of Onset None Mother from fall Diabetes Father Ischemic Heart Disease Father d. [place] Ischemic Heart Disease Maternal Grandfather d. [place] while holding her at 4mo Blindness Brother Heart Attack Brother Social History Tobacco Use Smoking status: Never Smokeless tobacco: Never Vaping Use Vaping Use: Never used Substance Use Topics Alcohol use: No Drug use: No Review of Systems Constitutional: Negative for fever. HENT: Positive for congestion and sore throat. Negative for ear pain and nosebleeds. Respiratory: Positive for cough and shortness of breath. Negative for wheezing. Gastrointestinal: Negative for diarrhea and vomiting. Musculoskeletal: Negative for neck pain. Skin: Negative for itching and rash. Objective Blood pressure 170/80, pulse 71, temperature 37.3 C (99.2 F), resp. rate 22, weight 93.4 kg (206 lb), SpO2 97 %. Component Latest Ref Rng & Units 06/30/2022 Protein, Total 6.3 - 8.0 g/dL 6.1 (L) Albumin 3.9 - 4.9 g/dL 4.3 Calcium 8.5 - 10.2 mg/dL 9.2 Bilirubin, Total 0.2 - 1.3 mg/dL 0.3 Alkaline Phosphatase 34 - 123 U/L 150 (H) AST 13 - 35 U/L 25 ALT 7 - 38 U/L 19 Glucose 74 - 99 mg/dL 86 BUN 7 - 21 mg/dL 20 Creatinine 0.58 - 0.96 mg/dL 0.86 Sodium 136 - 144 mmol/L 143 Potassium 3.7 - 5.1 mmol/L 4.3 Chloride 97 - 105 mmol/L 105 CO2 22 - 30 mmol/L 28 Anion Gap 9 - 18 mmol/L 10 eGFR >=60 mL/min/1.73m 72 Physical Exam Constitutional: General: She is not in acute distress. Appearance: She is not toxic-appearing or diaphoretic. HENT: Head: Normocephalic and atraumatic. Cardiovascular: Rate and Rhythm: Normal rate and regular rhythm. Heart sounds: Normal heart sounds, S1 normal and S2 normal. Pulmonary: Effort: Pulmonary effort is normal. Breath sounds: Wheezing (scattered bilat) and rhonchi (scattered bilat) present. No decreased breath sounds or rales. Lymphadenopathy: Cervical: No cervical adenopathy. Right cervical: No superficial cervical adenopathy. Left cervical: No superficial cervical adenopathy. Neurological: Mental Status: She is alert and oriented to person, place, and time. Gait: Gait is intact. ASSESSMENT/PLAN: 1. URI, acute - ICD9: 465.9, ICD10: J06.9 (primary diagnosis) - Discussed viral etiology and rationale for treatment. - Symptomatic treatment with prn analgesia - Supportive care with fluids and rest - Follow up in 3-5 days if symptoms persist or sooner if worsening of symptoms - COVID & INFLUENZA A/B & RSV NAAT, ROUTINE - COVID NAAT, UPPER RESPIRATORY, ROUTINE - ROUTINE FLU A/B + RSV - METHYLPREDNISOLONE 4 MG TABLETS IN A DOSE PACK 2. Acute cough - ICD9: 786.2, ICD10: R05.1 - XR CHEST 2V FRONTAL/LAT IMPRESSION: No active disease in the chest. Dictated by : TRINITY LOUISE MD - METHYLPREDNISOLONE 4 MG TABLETS IN A DOSE PACK 3. History of asthma - ICD9: V12.69, ICD10: Z87.09 Steroid ordered -If you experience chest pain/shortness of breath go to ER - METHYLPREDNISOLONE 4 MG TABLETS IN A DOSE PACK Komal Walter APRN.[employer] documented in this encounter [facility] 09-07-2022 Note HNO ID: [id number] Author: Paul Win APRN.PRIMO Service: ? Author Type: Nurse Practitioner Type: Progress Notes Filed: 09/07/2022 10:21 AM Note Text: Subjective HPI Nontoxic-appearing female presents urgent care chief complaint right eye redness and drainage. Duration of symptoms 1 day. Associated symptoms right eye redness drainage discomfort. Patient states for started on her right upper lid yesterday. Redness and drainage has spread to right lower lid. It is painful if she presses around her eyelids. Some swelling. Has not used any OTC medications. States she does have a history of insufficient drainage to eyelid glands. Presents today for evaluation. Denies history of eye trauma flashes light or floaters. Denies any visual acuity changes. Denies any fever body aches chills productive cough chest pain shortness of breath pleuritic pain hemoptysis nausea vomiting abdominal pain change in bowel or bladder habits. Past medical history prescription medication use and allergies reviewed. .Patient presents with: Eye Problem: Red irritated right eye x 1 day PAST MEDICAL HISTORY Diagnosis Date Arthropathy, unspecified, site unspecified Asthma Back pain Calculus of kidney 05/09/2018 Colon polyps 2014 Diverticulitis 2000 Environmental allergies GERD (gastroesophageal reflux disease) Hyperlipidemia lifestyle controlled Hypertension IBS (irritable bowel syndrome) Migraine Obesity Pseudophakia 12/2021 both PAST SURGICAL HISTORY Procedure Laterality Date CHOLECYSTECTOMY ~2003 Cholecystectomy laparoscopic COLONOSCOPY AND POLYPECTOMY 12/03/2013 tubular adenoma, hyperplastic polyp; repeat due in 5y COLONOSCOPY FLX DX W/COLLJ SPEC WHEN PFRMD 05/29/2018 Colonoscopy DEBRIDEMENT SUBCUTANEOUS TISSUE 20 SQ CM/< 05/15/07 Debridement infected moira cyst upper mid back PAST SURGICAL HISTORY OF 1984 metal removed from right tibial area PAST SURGICAL HISTORY OF [facility] TOTAL ABDOMINAL HYSTERECT W/WO RMVL TUBE OVARY 1999 MAURICE/BSO-pain, no abnormal paps ALLERGIES Adhesive Tape (Rosins), Bactrim Ds [Sulfamethoxazole-Trimethoprim], Bee Sting, Darvon [Propoxyphene Hcl], Influenza Virus Vaccines, and Prednisone MEDICATIONS docusate sodium (STOOL SOFTENER ORAL) Take by mouth once daily. methylPREDNISolone (MEDROL, PONCHO,) 4 mg Dose-Pack Take by mouth as directed until finished. fluticasone-salmeterol (ADVAIR DISKUS) 100-50 mcg/dose inhaler Inhale 1 Puff as instructed twice daily. RINSE AND GARGLE MOUTH WITH WATER AFTER EACH USE. loratadine (CLARITIN) 10 mg tablet Take 1 tablet by mouth once daily. [id number] 3.5 MG/ML-10,000 UNIT/ML-0.1% EYE DROPS 1 drop right eye four times a day for 1 week then three times a day for 1 week, then two times a day for 1 week, then once a day for 1 wk cyclobenzaprine HCl (FLEXERIL ORAL) Take by mouth. cyclobenzaprine (FLEXERIL) 10 mg tablet ammonium lactate (LAC-HYDRIN) 12 % lotion Apply 1 application to affected area once daily as needed for dry skin (arms). atorvastatin (LIPITOR) 40 mg tablet Take 1 tablet by mouth once daily. verapamil SR (CALAN SR, ISOPTIN SR) 240 mg CR tablet Take 1 tablet by mouth daily at bedtime. pantoprazole DR (PROTONIX) 20 mg tablet Take 1 tablet by mouth once daily. albuterol HFA (PROVENTIL HFA, VENTOLIN HFA) 90 mcg/actuation inhaler Inhale 2 Puffs as instructed every 6 hours as needed. albuterol (PROVENTIL) 2.5 mg /3 mL (0.083 %) nebulizer solution Use 3 mL via nebulizer every 4 hours as needed for wheezing/shortness of breath. Use over 5-15minutes. apixaban (ELIQUIS) 5 mg tab(s) Take 5 mg by mouth twice daily. Will start when delivered ondansetron orally disintegrating (ZOFRAN ODT) 4 mg disintegrating tablet DISSOLVE 1 TABLET ON THE TONGUE EVERY 6 HOURS NEEDED FOR NAUSEA/VOMITING EPINEPHrine (AUVI-Q) 0.3 mg/0.3 mL auto-injector Inject 0.3 mL intramuscularly as needed. meclizine (ANTIVERT) 25 mg tab Take 1 tablet by mouth every 6 hours as needed (dizziness). fluticasone (FLONASE) 50 mcg/actuation nasal spray Use 2 Sprays in each nostril once daily. bifidobacteri bifid.and longum (FLORAJEN BIFIDOBLEND) 460 mg (9-1 bill.cell) cap Take 1 capsule by mouth once daily. metoprolol tartrate, short acting, (LOPRESSOR) 25 mg tablet Take 12.5 mg by mouth twice daily. cycloSPORINE (RESTASIS) 0.05 % ophthalmic emulsion Use 1 Drop in both eyes twice daily. Both eyes. Nebulizer NEBULIZER FOR HOME USE. DX: J45.20 FAMILY HISTORY Problem Relation Age of Onset None Mother from fall Diabetes Father Ischemic Heart Disease Father d. [place] Ischemic Heart Disease Maternal Grandfather d. [place] while holding her at 4mo Blindness Brother Heart Attack Brother Social History Tobacco Use Smoking status: Never Smokeless tobacco: Never Vaping Use Vaping Use: Never used Substance Use Topics Alcohol use: No Drug use: No BP 126/72 Pulse 88 (more content not included)... [facility] 09-07-2022 History of Present illness Narrative Subjective HPI Nontoxic-appearing female presents urgent care chief complaint right eye redness and drainage. Duration of symptoms 1 day. Associated symptoms right eye redness drainage discomfort. Patient states for started on her right upper lid yesterday. Redness and drainage has spread to right lower lid. It is painful if she presses around her eyelids. Some swelling. Has not used any OTC medications. States she does have a history of insufficient drainage to eyelid glands. Presents today for evaluation. Denies history of eye trauma flashes light or floaters. Denies any visual acuity changes. Denies any fever body aches chills productive cough chest pain shortness of breath pleuritic pain hemoptysis nausea vomiting abdominal pain change in bowel or bladder habits. Past medical history prescription medication use and allergies reviewed. .Patient presents with: Eye Problem: Red irritated right eye x 1 day PAST MEDICAL HISTORY Diagnosis Date Arthropathy, unspecified, site unspecified Asthma Back pain Calculus of kidney 05/09/2018 Colon polyps 2014 Diverticulitis 2000 Environmental allergies GERD (gastroesophageal reflux disease) Hyperlipidemia lifestyle controlled Hypertension IBS (irritable bowel syndrome) Migraine Obesity Pseudophakia 12/2021 both PAST SURGICAL HISTORY Procedure Laterality Date CHOLECYSTECTOMY ~2003 Cholecystectomy laparoscopic COLONOSCOPY & POLYPECTOMY 12/03/2013 tubular adenoma, hyperplastic polyp; repeat due in 5y COLONOSCOPY FLX DX W/COLLJ SPEC WHEN PFRMD 05/29/2018 Colonoscopy DEBRIDEMENT SUBCUTANEOUS TISSUE 20 SQ CM/< 05/15/07 Debridement infected moira cyst upper mid back PAST SURGICAL HISTORY OF 1984 metal removed from right tibial area PAST SURGICAL HISTORY OF [facility] TOTAL ABDOMINAL HYSTERECT W/WO RMVL TUBE OVARY 1999 MAURICE/BSO-pain, no abnormal paps ALLERGIES Adhesive Tape (Rosins), Bactrim Ds [Sulfamethoxazole-Trimethoprim], Bee Sting, Darvon [Propoxyphene Hcl], Influenza Virus Vaccines, and Prednisone MEDICATIONS docusate sodium (STOOL SOFTENER ORAL) Take by mouth once daily. methylPREDNISolone (MEDROL, PONCHO,) 4 mg Dose-Pack Take by mouth as directed until finished. fluticasone-salmeterol (ADVAIR DISKUS) 100-50 mcg/dose inhaler Inhale 1 Puff as instructed twice daily. RINSE AND GARGLE MOUTH WITH WATER AFTER EACH USE. loratadine (CLARITIN) 10 mg tablet Take 1 tablet by mouth once daily. [id number] 3.5 MG/ML-10,000 UNIT/ML-0.1% EYE DROPS 1 drop right eye four times a day for 1 week then three times a day for 1 week, then two times a day for 1 week, then once a day for 1 wk cyclobenzaprine HCl (FLEXERIL ORAL) Take by mouth. cyclobenzaprine (FLEXERIL) 10 mg tablet ammonium lactate (LAC-HYDRIN) 12 % lotion Apply 1 application to affected area once daily as needed for dry skin (arms). atorvastatin (LIPITOR) 40 mg tablet Take 1 tablet by mouth once daily. verapamil SR (CALAN SR, ISOPTIN SR) 240 mg CR tablet Take 1 tablet by mouth daily at bedtime. pantoprazole DR (PROTONIX) 20 mg tablet Take 1 tablet by mouth once daily. albuterol HFA (PROVENTIL HFA, VENTOLIN HFA) 90 mcg/actuation inhaler Inhale 2 Puffs as instructed every 6 hours as needed. albuterol (PROVENTIL) 2.5 mg /3 mL (0.083 %) nebulizer solution Use 3 mL via nebulizer every 4 hours as needed for wheezing/shortness of breath. Use over 5-15minutes. apixaban (ELIQUIS) 5 mg tab(s) Take 5 mg by mouth twice daily. Will start when delivered ondansetron orally disintegrating (ZOFRAN ODT) 4 mg disintegrating tablet DISSOLVE 1 TABLET ON THE TONGUE EVERY 6 HOURS NEEDED FOR NAUSEA/VOMITING EPINEPHrine (AUVI-Q) 0.3 mg/0.3 mL auto-injector Inject 0.3 mL intramuscularly as needed. meclizine (ANTIVERT) 25 mg tab Take 1 tablet by mouth every 6 hours as needed (dizziness). fluticasone (FLONASE) 50 mcg/actuation nasal spray Use 2 Sprays in each nostril once daily. bifidobacteri bifid.and longum (FLORAJEN BIFIDOBLEND) 460 mg (9-1 bill.cell) cap Take 1 capsule by mouth once daily. metoprolol tartrate, short acting, (LOPRESSOR) 25 mg tablet Take 12.5 mg by mouth twice daily. cycloSPORINE (RESTASIS) 0.05 % ophthalmic emulsion Use 1 Drop in both eyes twice daily. Both eyes. Nebulizer NEBULIZER FOR HOME USE. DX: J45.20 FAMILY HISTORY Problem Relation Age of Onset None Mother from fall Diabetes Father Ischemic Heart Disease Father d. [place] Ischemic Heart Disease Maternal Grandfather d. [place] while holding her at 4mo Blindness Brother Heart Attack Brother Social History Tobacco Use Smoking status: Never Smokeless tobacco: Never Vaping Use Vaping Use: Never used Substance Use Topics Alcohol use: No Drug use: No BP 126/72 Pulse 88 Temp 37.5 C (99.5 F) (Tympanic) Resp 18 Wt 94.9 kg (209 lb 3.2 oz) SpO2 96% BMI 33.77 kg/m Review of Systems Constitutional: Negative for chills, fever and malaise/fatigue. HENT: Negative for congestion, ear discharge, ear pain, sinus pain and sore throat. Eyes: Positive for discharge and redness. Negative for blurred vision, double vision, photophobia and pain. Respiratory: Negative for cough, hemoptysis, sputum production, shortness of breath, wheezing and stridor. Cardiovascular: Negative for chest pain. Gastrointestinal: Negative for abdominal pain, diarrhea, nausea and vomiting. Musculoskeletal: Negative for myalgias. Skin: Negative for itching and rash. Neurological: Negative for dizziness and headaches. Objective Physical Exam Constitutional: General: She is not in acute distress. Appearance: She is not toxic-appearing. HENT: Head: Normocephalic. Nose: Nose normal. Eyes: General: Lids are normal. Vision grossly intact. Right eye: Discharge present. No foreign body or hordeolum. Extraocular Movements: Right eye: No nystagmus. Conjunctiva/sclera: Right eye: Right conjunctiva is not injected. Exudate present. No chemosis or hemorrhage. Pupils: Pupils are equal, round, and reactive to light. Comments: Mild erythema edema noted to eyelids. Some preseptal swelling and redness noted. Limbus clear. Acuity unchanged. Cardiovascular: Rate and Rhythm: Normal rate. Pulmonary: Effort: Pulmonary effort is normal. No respiratory distress. Musculoskeletal: Cervical back: Normal range of motion. Skin: General: Skin is warm and dry. Neurological: General: No focal deficit present. Mental Status: She is alert. ASSESSMENT/PLAN: 1. Swelling of gland of right eyelid - ICD9: 373.2, ICD10: H02.843 Patient diagnosed with swelling of right eyelid. With drainage will be placed on erythromycin ophthalmic drops as well as Augmentin. Treat as early possible preseptal cellulitis. Follow-up with ophthalmology tomorrow if symptoms are not improving. Red flags appropriate location discussed. Patient was educated on supportive therapies. Patient will follow up with primary care provider as needed. Patient was instructed to immediately proceed to emergency room for any new, worsening, or symptoms lasting longer than anticipated. The patient's clinical presentation is otherwise unremarkable at this time. Based on exam and clinical finding, the patient is stable for discharge. Plan of care was discussed with patient. Patient verbalizes understanding and agrees to plan of care. This note was generated using magnetU software. It may contain errors in wording, punctuation, or spelling. Paul Win APRN.PRIMO documented in this encounter [facility] 08-10-2022 History of Present illness Narrative Images from the original note were not included. Francesca Peñaloza PA-C [facility] [address] [id number] 08/10/2022 ASSESSMENT AND PLAN: Assessment : Encounter Diagnosis ICD-10-CM 1. Lumbar radiculopathy M54.16 XR LUMBAR MOTION 4V AP/LAT/ FLEX/EXT methylPREDNISolone (MEDROL, PONCHO,) 4 mg Dose-Pack 2. Sacroiliitis (HCC) M46.1 XR LUMBAR MOTION 4V AP/LAT/ FLEX/EXT methylPREDNISolone (MEDROL, PONCHO,) 4 mg Dose-Pack 3. Left foot drop M21.372 Discussion: Ms. Bailey is a pleasant 72-year-old female here for evaluation of low back pain and bilateral sciatica symptoms She was referred a number of months ago but was unable to come secondary to some problems with her vehicle/transportation She is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 Name and Date of : Yes REHABILITATION AND SPORTS THERAPY PHYSICAL THERAPY TREATMENT NOTE ASSESSMENT: Romain Bailey tolerated the session with decreased symptoms. She demonstrated improvements in radicular symptoms and lumbar movement with standing lumbar extension.. The patient will continue to benefit from ongoing skilled physical therapy to progress toward set goals. PLAN FOR NEXT VISIT: Continue with prone progression. Consider scapular retractions and seated TA activation due to pt only having waterbed at home. SUBJECTIVE: Patient Reason for Visit: Pt reports that she has missed some appoinments due to her car breaking down and then she was sick and lost her voice and wasn't able to call in to cancel. Pt rpeorts that while sick she didn't do many of the exercises. Pt states exercises help for a couple minutes but nothing prolonged. Pt has tried lumbar towel roll and that helps sometimes. Pain: Pain Pain Level: 9 Pain Location: Low Back/Lumbar Spine - Left Description: Aching Frequency: Continuous Post Treatment Pain Post Treatment Pain Level: 6 Post Treatment Pain Location: Low Back/Lumbar Spine - Left OBJECTIVE MEASURES WITH LEVEL OF FUNCTION: Increased lumbar extension noted with increased reps of standing lumbar extension at edge of table. TREATMENT: Therapeutic Exercise: 1: prone lay 5 min (cues to avoid lumbar rotation L) 2: MIGUEL 5 min 3: Standing lumbar extension at edge of table 3x10 (pain decreased to 5.5-6/10) Skilled Intervention: Patient was educated in proper exercise technique and purpose for exercises. Skilled judgment was provided in selection of appropriate interventions. Correct performance of therapeutic exercises was facilitated with verbal and visual cuing. Gait Trainin: Pt ambulated around therapy gym 200 ft with quad cane with empahsis on keeping shoulders back and having improved upright posture. Verbal and visual cueing with use of mirror. Skilled Intervention: Patient was provided supervision during pre-gait/gait training to prevent falls and insure safety. Facilitated proper gait cycle with the use of verbal and visual cues for correction of gait deviations identified in the objective section above. [facility] Management: 1: *education on elevating LE when doing dishes or porlonged standing Skilled Intervention: Skilled judgment in the selection of proper modification for activity of daily living/home management based on clinical presentation, deficits, and needs. Billing Therapeutic Exercise Treatment Minutes: 29 Self-Care/Home Management Treatment Minutes: 3 Gait Training Treatment Minutes: 8 Total Treatment Time Minutes (timed/untimed): 40 PB Carias PT documented in this encounter [facility] 05-23-2022 Miscellaneous Notes I left the patient a voice message to call the office to reschedule an appointment. The patient was scheduled with a neurologist on 05/29/22. The patient was referred to spine medicine for Sacroiliitis. If the patient calls, please cancel the 05/29/22 appointment. The patient needs to schedule spine medicine. documented in this encounter [facility] 05-16-2022 Instructions Nadya Perry MD - 05/16/2022 10:38 AM EDT Partial nldo Maxitrol drops: Instill 1 drop right four times a day x 1 week, then three times a day x 1 week, then two times a day x 1 week, then once a day x 1 week, then stop. Discussed risk of developing cataracts or glaucoma with long-term use. Discussed risk of infection with concomitant use of CLs. Return 4-6 weeks to check tearing Velia , sooner if issues documented in this encounter [facility] 05-16-2022 History of Present illness Narrative Patient states her right eye has been watering x years and her eye doctor tried to open her tear duct but could not and advised her to see Dr. Perry. Patient states her vision is fine at distance and near just wants to see what can be done about the right eye tearing all the time. No ocular drops NEW patient A/p: Tearing right x 1-2 years Getting worse Sometimes has some yellow-green discharge Occasionally right medial canthus gets red Dr. Greene ophthalmology did a probing but didn't get anything thru by report S/p intraocular lens both eyes 12/2021 Exam increased tear chiu right eye No sona dacryocystitis Tr erythema Right lower lid>left lower lid Right lower lid medial fat herniation Irrigation: Right: membrane over puncta 20% reflux from upper with mucous; 80% flow Partial nldo Maxitrol drops: Instill 1 drop right four times a day x 1 week, then three times a day x 1 week, then two times a day x 1 week, then once a day x 1 week, then stop. Discussed risk of developing cataracts or glaucoma with long-term use. Discussed risk of infection with concomitant use of CLs. Return 4-6 weeks to check tearing Vleia , sooner if issues The documentation for this note was completed by Miguel March APRN, CNP acting as a scribe for Nadya Perry MD. 05/16/2022 10:36 AM. I have confirmed and edited as necessary the relevant ophthalmic history, ROS, and the neuro exam findings as obtained by others. I have seen and examined Romain Bailey. I have discussed the case and the management of this patient's care with the Resident/Fellow, if applicable. I also have reviewed and agree with the assessment and plan as stated above and agree with all of its relevant components. I, Nadya Perry MD, personally performed the services described in this documentation. All medical record entries made by the scribe were at my direction and in my presence. I have reviewed the chart and discharge instructions (if applicable) and agree that the record reflects my personal performance and is accurate and complete. Electronically Signed: Nadya Perry MD, May 16, 2022 10:36 AM. documented in this encounter [facility] 05-10-2022 History of Present illness Narrative Episode Visit Count: 2 Therapist That Will Accept/Oversee The Plan Of Care: Kristine Simmons Start of Care Date: 04/14/22 Onset Date: 04/07/22 Plan of Care Certification Date: 05/10/22 Next Certification Due Date: 06/14/22 [facility]ER[facility]Y PHYSICAL THERAPY PROGRESS REPORT PLAN OF CARE UPDATE: Assessment: Romain Bailey demonstrates improvements in sitting, rising from a chair, walking, walking in the house, bending, working, driving, dressing, grooming, and carrying. She has progressed toward goals. Patient continues to present with impairments in ADL's, balance, gait, independence in exercise, joint mobility, overall function, patient reported outcome measures, posture, range of motion, strength, and symptom management that interfere with cooking, driving, walking in the community, stair negotiation, sitting, cleaning, standing . Current prognosis is Good due to: positive past response to therapy, good support system/ coping skills Fair due to: chronic nature of impairments, limited tolerance to activity, Prognosis may be improved by within-session changes, current objective clinical presentation, good support system/ coping skills. She will benefit from continued skilled therapy services to meet the updated goals for this plan of care as noted below. Goals for Episode of Care: created on 04/14/22 through 05/26/22 Goals updated on 05/10/2022 through Independent in home exercises. -- MET Patient will decrease pain rating by 2 points to meet minimal clinical important difference for numeric pain rating scale. -- MET Restore pain-free lumbar ROM to minimal to no limitation lumbar flexion and extension to allow for transfers and ADLs. -- PROGRESSING Stand / Walk 15-25 minutes without pain/symptoms. -- PROGRESSING, reports amb 8-10 minutes, difficulty with prolonged standing at sink Sit 1-2 hours without pain/symptoms to allow for seated activities. -- MET Maintain proper sitting posture throughout session -- PROGRESSING, L trunk lean Knowledgeable regarding prophylaxis. 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 Gait training with postural correction. SUBJECTIVE: Patient Reason for Visit: Pt. reports that the exercises were not very helpful the first day, but she noticed improvement the second day. 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 Usually works 10 am to 2 pm. She has been using the AD for longer distances. SHe bought a sock aide.. 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 5 points is clinically meaningfully difference Percentiles provide an indication of how the patient's score ranks in relation to the general population. Higher percentile rankings indicate better function/quality of life. 50th percentile is the average of the general population and indicates half of respondents had a worse score. OBJECTIVE MEASURES WITH LEVEL OF FUNCTION: Lumbar Spine AROM Lumbar Flexion: Minimal limitation, Peripheralizing Lumbar Extension: Moderate limitation, Centralizing, End range pain Lumbar R Side-Bend: Normal Lumbar L Side-Bend: Moderate limitation, End range pain Lumbar R Rotation: Normal Lumbar L Rotation: Normal Gait Gait: Modified Independent Gait Device: Cane Gait Deviations: General Deviations TREATMENT: Therapeutic Exercise: 1: prone lay 5 min (cues to avoid lumbar rotation L) 2: MIGUEL 5 min 3: prone HS curls 4x10 each side (more stretch felt on the left as compared to the right) 4: *standing lumbar extension 2-3x10, no LOB, visual and tactile cues for technique, 3 times daily 5: prone hip extension 2x10 each side (max tactile cues to avoid lumbar rotation L) Skilled Intervention: Patient was educated in proper exercise technique and purpose for exercises. Reviewed and educated patient on additions/changes for home exercise program as above (*). Skilled judgment was provided in selection of appropriate interventions. Provided written instruction for home exercise program to facilitate proper performance and compliance. Correct performance of therapeutic exercises was facilitated with verbal, visual, and tactile cuing. Educated patient on rationale for performing exercises in regards to decreasing fatigue , including balance, increase ease of ADL, and ROM and function . Patient education as noted. [facility] Management: 1: *lumbar towel roll education 2: *discussed centralization of symptoms to be a positive sign that exercises are effective. Skilled Intervention: Skilled judgment in the selection of proper modification for activity of daily living/home management based on clinical presentation, deficits, and needs. Educated the patient regarding recommendations and provided written instruction to facilitate compliance. Provided written instruction for activities of daily living techniques to facilitate proper performance and compliance. Reviewed patient specific diagnosis in relation to activities of daily living/home management. Activity progression based on professional judgement. Moderate verbal cues for maintaining neutral spine alignment. Reviewed and educated patient on additions/changes for home program as noted above with an (*). Provided written instruction for home program to facilitate proper performance and compliance. Correct performance of home program was facilitated with verbal, visual, and tactile cueing. Billing Therapeutic Exercise Treatment Minutes: 35 Self-Care/Home Management Treatment Minutes: 5 Total Treatment Time Minutes (timed/untimed): 40 Kristine Simmons PT documented in this encounter [facility] 04-11-2022 Instructions Faith Mullins APRN.TONI - 04/11/2022 10:53 AM EST Take Toradol [id number] for the next 5 days. Take with food. Continue with pantoprazole unchanged. Add famotidine for the next 2 weeks to protect your stomach while taking the Toradol. Go to the emergency department for any severe or concerning symptoms documented in this encounter [facility] 04-11-2022 History of Present illness Narrative SUBJECTIVE: SPIROMETRY Never done SHINGRIX VACCINE(1 of 2) Never done MAMMOGRAM due on 06/26/2017 ADVANCE DIRECTIVE DISCUSSION due on 02/26/2022 DEPRESSION ASSESSMENT due on 02/26/2022 HPI Romain Bailey is a 72 year old female. PMH is significant for ACTIVE PROBLEM LIST Environmental Allergies Asthma Arthropathy, Unspecified, Site Unspecified Essential Hypertension Ibs (Irritable Bowel Syndrome) Gerd (Gastroesophageal Reflux Disease) Migraine Hyperlipidemia, Mixed History of Colon Polyps Chronic Pain of Right Knee Primary Osteoarthritis of Right Knee Bppv (Benign Paroxysmal Positional Vertigo) Bee Sting Allergy Bilateral Low Back Pain With Bilateral Sciatica Calculus of Kidney Llq Pain History of Tia (Transient Ischemic Attack) Dry Skin Atrial Fibrillation With Rapid Ventricular Response (Hcc) HPI excerpted from previous visits: PCP: Erik Reynolds MD Seen by Dr Rogers 06/2021. Since last here had GIB, colitis at [facility] 09/15/2021. Seen by Dr Cowan 11/2021 in office. Colonoscopy end of October. Fibroscan recommended, then follow up recommended. Presents at [facility] to establish care. She reports losing her job and pandemic and getting behind intermittent. Notes her current landlord is trying to evict her. She reports she reached out to community action about 1 month ago and does not hurt anymore from her landlord. HTN: Occasional palpitations. headache, chest pain, dyspnea, peripheral edema, orthopnea, fatigue, and PND. Hyperlipidemia. Ms. Bailey reports doing well on current therapy TIA recurrence: no recurrence symptoms Atrial fibrillation: chronic OAC, no current bleeding problems Stopped amiodarone recently after wearing a monitor. [facility] Dr. Damico TTE 10/2021. Asthma: chronic shortness of breath on exertion primarily; stable. Chronic right knee pain, sees Dr Encarnacion. Clogged tear duct right eye. Cataract surgery planned then doctor to address [facility]. She presents today for emergency department follow-up visit. She was seen at [facility] emergency department January 06, 2022 with report of tailbone and sacral pain x2 weeks. Presented when pain became worse. She reported when arising from a seated position she felt pain over her tailbone and felt a pop in the area. Reports pain is sharp. Reported it was better lying on her right side with taking Tylenol. Worse with certain positions. No paresthesias or weakness no bowel or bladder changes. No saddle anesthesia. Exam showed tenderness of the sacrum and left sacroiliac joint no bony crepitus or step-off range of motion limited in the lumbosacral spine due to pain. Strength is normal in lower extremities no sensory deficits noted. There is no fracture noted on x-ray. She was advised to use ice in the area and to use an inflatable donut pillow to sit on. She was advised to follow-up with primary care in 5 to 7 days. Today reports pain is better but still persist from tailbone up to mid sacrum area. Achy pain. Can be sharp with movement. Sensation preserved, mobility preserved, no reported bowel or bladder complaints or saddle anesthesia. Has used donut and side lying which can help. Since last seen had appointment with Dr Cowan gastroenterology 03/13/2022. Had virtual visit 04/18/2022 review for back pain. Was referred to ED but she preferred visit. Seen at : yes Treatment: cyclobenzaprine At [facility]. Today reports did not go to ER. Pain location duration and character: Tailbone and to the left of it. Radiation:left leg Alleviate: heating pad, donut pillow, Tylenp; Aggravate: getting up and down in chair Mobility: walking in home with walker, has had help with dog but completing other ADLs Bowel and bladder: no problems Sensation preserved: yes States pain is current severe and present since Sunday. Review of Systems Constitutional: Negative. Cardiovascular: Negative. Musculoskeletal: Positive for arthralgias and back pain. Objective BP 136/80 Pulse 60 Resp 16 Wt 93.9 kg (207 lb) SpO2 96% BMI 33.43 kg/m Physical Exam Vitals and nursing note reviewed. Constitutional: Appearance: Normal appearance. HENT: Head: Normocephalic and atraumatic. Eyes: Conjunctiva/sclera: Conjunctivae normal. Neck: Thyroid: No thyromegaly. Vascular: Normal carotid pulses. No JVD. Cardiovascular: Rate and Rhythm: Normal rate and regular rhythm. Pulses: Carotid pulses are 2+ on the right side and 2+ on the left side. Heart sounds: Normal heart sounds. Pulmonary: Effort: Pulmonary effort is normal. Breath sounds: Normal breath sounds. Abdominal: General: Bowel sounds are normal. Palpations: Abdomen is soft. Musculoskeletal: Lumbar back: Tenderness present. Decreased range of motion. Positive right straight leg raise test and positive left straight leg raise test. Right lower leg: No edema. Left lower leg: No edema. Skin: General: Skin is warm and dry. Neurological: General: No focal deficit present. Mental Status: She is alert and oriented to person, place, and time. Comments: Sensation preserved lower extremities ALLERGIES Allergen Reactions Adhesive Tape (Marilou* Rash Bactrim Ds [Sulfame* Anaphylaxis Difficulty breathing, fever, chills Bee Sting Anaphylaxis Darvon [Propoxyphen* Influenza Virus Vac* Other: See Comments Chest tightness, arm swelling. Prednisone GI Upset Medication cyclobenzaprine (FLEXERIL) 10 mg tablet^^Disp: ^Rfl: ammonium lactate (LAC-HYDRIN) 12 % lotion^Apply 1 application to affected area once daily as needed for dry skin (arms).^Disp: 225 g^Rfl: 5 atorvastatin (LIPITOR) 40 mg tablet^Take 1 tablet by mouth once daily.^Disp: 90 tablet^Rfl: 3 verapamil SR (CALAN SR, ISOPTIN SR) 240 mg CR tablet^Take 1 tablet by mouth daily at bedtime.^Disp: 90 tablet^Rfl: [address] (PROTONIX) 20 mg tablet^Take 1 tablet by mouth once daily.^Disp: 90 tablet^Rfl: 3 fluticasone-salmeterol (ADVAIR DISKUS) 100-50 mcg/dose inhaler^Inhale 1 Puff as instructed twice daily. RINSE AND GARGLE MOUTH WITH WATER AFTER EACH USE.^Disp: 180 Each^Rfl: 1 albuterol HFA (PROVENTIL HFA, VENTOLIN HFA) 90 mcg/actuation inhaler^Inhale 2 Puffs as instructed every 6 hours as needed.^Disp: 18 g^Rfl: 0 albuterol (PROVENTIL) 2.5 mg /3 mL (0.083 %) nebulizer solution^Use 3 mL via nebulizer every 4 hours as needed for wheezing/shortness of breath. Use over 5-15minutes.^Disp: 90 mL^Rfl: 3 apixaban (ELIQUIS) 5 mg tab(s)^Take 5 mg by mouth twice daily. Will start when delivered^Disp: ^Rfl: ondansetron orally disintegrating (ZOFRAN ODT) 4 mg disintegrating tablet^DISSOLVE 1 TABLET ON THE TONGUE EVERY 6 HOURS NEEDED FOR NAUSEA/VOMITING^Disp: 90 tablet^Rfl: 0 EPINEPHrine (AUVI-Q) 0.3 mg/0.3 mL auto-injector^Inject 0.3 mL intramuscularly as needed.^Disp: 2 Each^Rfl: 3 meclizine (ANTIVERT) 25 mg tab^Take 1 tablet by mouth every 6 hours as needed (dizziness).^Disp: 90 tablet^Rfl: 0 fluticasone (FLONASE) 50 mcg/actuation nasal spray^Use 2 Sprays in each nostril once daily.^Disp: 3 Bottle^Rfl: 3 benzonatate (TESSALON PERLES) 100 mg capsule^Take 2 capsules by mouth three times daily as needed.^Disp: 90 capsule^Rfl: 0 (Patient taking differently: Take 200 mg by mouth three times daily as needed. PRN) bifidobacteri bifid.and longum (FLORAJEN BIFIDOBLEND) 460 mg (9-1 bill.cell) cap^Take 1 capsule by mouth once daily.^Disp: 30 capsule^Rfl: 1 metoprolol tartrate, short acting, (LOPRESSOR) 25 mg tablet^Take 12.5 mg by mouth twice daily. ^Disp: ^Rfl: cycloSPORINE (RESTASIS) 0.05 % ophthalmic emulsion^Use 1 Drop in both eyes twice daily. Both eyes.^Disp: ^Rfl: loratadine (CLARITIN) 10 mg tablet^Take 1 tablet by mouth once daily.^Disp: 30 tablet^Rfl: 11 Nebulizer^NEBULIZER FOR HOME USE. DX: J45.20^Disp: 1 Device^Rfl: 0 cyclobenzaprine HCl (FLEXERIL ORAL)^Take by mouth.^Disp: ^Rfl: (Patient not taking: Reported on 04/11/2022) keTORolac (TORADOL) 10 mg tablet^Take 1 tablet by mouth every 6 hours as needed for pain (Take with food.) for up to 5 days.^Disp: 20 tablet^Rfl: 0 famotidine (PEPCID) 20 mg tablet^Take 1 tablet by mouth at bedtime as needed.^Disp: 15 tablet^Rfl: 0 diclofenac sodium (VOLTAREN) 1 % topical gel^Apply 2 g to affected area four times daily.^Disp: 400 g^Rfl: 2 PAST MEDICAL HISTORY Diagnosis Date Arthropathy, unspecified, site unspecified Asthma Back pain Calculus of kidney 05/09/2018 Colon polyps 2014 Diverticulitis 2000 Environmental allergies GERD (gastroesophageal reflux disease) Hyperlipidemia lifestyle controlled Hypertension IBS (irritable bowel syndrome) Migraine Obesity Social History Tobacco Use Smoking status: Never Smokeless tobacco: Never Vaping Use Vaping Use: Never used Substance Use Topics Alcohol use: No Drug use: No ASSESSMENT/PLAN: 1. Sacroiliitis (HCC) - ICD9: 720.2, ICD10: M46.1 (primary diagnosis) 2. Chronic bilateral low back pain with bilateral sciatica M54.42 At her previous visit she reported avoiding Tylenol for pain due to concern regarding liver, has upcoming biopsy. Was not taking NSAIDs due to upcoming eye procedure. States did not tolerate prednisone due to GI upset in the past. Treated with methylprednisolone, pressure relief with bed pillow or donut, ice, walking and gentle range of motion. Presents today with report of worsening back pain. Previously advised to go to the emergency department for complaint of severe pain but has not yet gone. Did go to urgent care off-site and was given Flexeril which she has noted helped somewhat. She cannot decide whether to go to emergency department interviewed in outpatient setting today. We will start with treatment of back pain with Toradol in the office then Toradol oral x5 days in outpatient setting. She will go to the emergency department if not receiving relief with this treatment. Endorse scheduling an appointment with physical therapy and spine center for longer-term follow-up. - CONSULT TO PHYSICAL THERAPY - CONSULT TO [facility] - schedule if not improving 6 mo follow up Fatemeh Rogers MD with labs Faith Mullins APRN.MEDICAL PAYMENT POSTER Medical Decision Making: Problems: Moderate: 1+ chronic illnesses with change Risk: Moderate: Drug management Medical Decision Making Level: 4 - Moderate documented in this encounter [facility] 04-09-2022 History of Present illness Narrative Virtualist Progress Note Triage Call Romain Bailey has consented to this telephone encounter. Persons Present: patient and NOC Triage source: Triage Call (Nurse Mobile Heavy Equipment Mechanic, [facility] Triage, [facility] Phone Triage) Was patient downgraded (i.e. disposition other than go to the ED was advised)? Yes Mode of contact (phone call, [employer], [employer], [facility], Skype, other): phone History/Physical Exam: 72 yo female reports left back pain radiating to posterior thigh. PMH sciatica with left or both sided pain. No bladder symptoms. Hx constipation, took dulcolax and soft stool yesterday. Pain rated 9/10. Nurse Triage Disposition (If call is from Home Care, [facility] nurse triage, or an Express Care, the disposition is Go to ED Now ): Go to ED Now Virtualist Recommended Disposition: See Provider within 24 hours She prefers UC over ED. Signed in as Primary Virtualist, Secondary Virtualist, or [facility] Telehealth provider: Secondary SIGNATURE: Rosa Isela Galarza MD PATIENT NAME: Romain Bailey DATE: April 09, 2022 documented in this encounter [facility] 03-29-2022 History of Present illness Narrative POPULATION HEALTH NAVIGATION OUTREACH Action/FYI Unable to lm, VM full. Mychart sent to schedule mammogram, notes added to upcoming ov to address hcc gaps Patient Identified by Name and : NO Outreach Outcome/Action Unable to reach patient: Phone number not valid / voicemail full MyChart message sent Did you use a PCP flex slot to schedule this appointment? N/A Reason for Outreach Care Gap or Scheduling/Wellness visits Payer: Payor: HUMANA MEDICARE / Plan: [employer] / Product Type: HMO / Care Gap Reviewed:: Breast Cancer screening Reminder: Reminder note to check Health Maintenance for items below Health Maintenance items due: SPIROMETRY Never done SHINGRIX VACCINE(1 of 2) Never done MAMMOGRAM due on 06/26/2017 ADVANCE DIRECTIVE DISCUSSION due on 02/26/2022 DEPRESSION ASSESSMENT due on 02/26/2022 Navigation Signature: Aleshia Oakley MA March 29, 2022 3:00 PM documented in this encounter [facility] 02-09-2022 Miscellaneous Notes Called pt with a quick busy signal. My chart message to pt. Printed Spoke to patient, she is okay with letter for emotional support animals. She will pick up worker when ready Therapy pets need to be certified as therapy pets, but I can write a letter that they are emotional support animals. Would that be adequate? Pt states she is being forced to move from her home by the end of the month. Pt states she has a dog & cat that provide comfort for her, pt states she can not give them up. Pt is asking for a letter stating her pets are therapy pets. Please advise. Shameka Verma LPN documented in this encounter [facility] 01-24-2022 History of Present illness Narrative POPULATION HEALTH NAVIGATION OUTREACH Action/FYI Patient responded to [employer] and declined scheduling at this time Pt identified by name and : YES, via [email or web address] Outreach Outcome/Action Spoke to patient or caregiver: Patient declined Navigation Signature: Makenna Bishop January 24, 2022 10:10 AM POPULATION HEALTH NAVIGATION OUTREACH Action/LUIS quinn Patient due for the following: Mammogram - ordered on 08/24/2021 Unable to contact patient by phone, No answer [employer] [facility] message sent Pt identified by name and : NO Outreach Outcome/Action Unable to reach patient: no answer [email or web address] message sent Did you use a PCP flex slot to schedule this appointment? N/A Reason for Outreach Care Gap or Scheduling/Wellness visits Payer: Payor: [employer] MEDICARE / Plan: HUMANA GOLD PLUS / Product Type: HMO / Care Gap Reviewed:: Breast Cancer screening Reminder: Reminder note to check Health Maintenance for items below Health Maintenance items due: SPIROMETRY Never done MAMMOGRAM due on 06/26/2017 Message Sent to Practice: No Navigation Signature: Makenna Bishop January 24, 2022 9:18 AM documented in this encounter [facility] 01-10-2022 History of Present illness Narrative SUBJECTIVE: SPIROMETRY Never done MAMMOGRAM due on 06/26/2017 HPI Romain Bailey is a 71 year old female. PMH is significant for ACTIVE PROBLEM LIST Environmental Allergies Asthma Arthropathy, Unspecified, Site Unspecified Essential Hypertension Ibs (Irritable Bowel Syndrome) Gerd (Gastroesophageal Reflux Disease) Migraine Hyperlipidemia, Mixed History of Colon Polyps Chronic Pain of Right Knee Primary Osteoarthritis of Right Knee Bppv (Benign Paroxysmal Positional Vertigo) Bee Sting Allergy Bilateral Low Back Pain With Bilateral Sciatica Calculus of Kidney Llq Pain History of Tia (Transient Ischemic Attack) Dry Skin Atrial Fibrillation With Rapid Ventricular Response (Hcc) HPI excerpted from previous visit: PCP: Erik Reynolds MD Seen by Dr Rogers 06/2021. Since last here had GIB, colitis at [facility] 09/15/2021. Seen by Dr Cowan 11/2021 in office. Colonoscopy end of October. Fibroscan recommended, then follow up recommended. Presents at [facility] to establish care. She reports losing her job and pandemic and getting behind intermittent. Notes her current landlord is trying to evict her. She reports she reached out to community action about 1 month ago and does not hurt anymore from her landlord. HTN: Occasional palpitations. headache, chest pain, dyspnea, peripheral edema, orthopnea, fatigue, and PND. Last 14 Encounter BP Readings: Date: BP: 12/22/2021 140/80 10/11/2021 136/80 08/15/2021 142/78 08/12/2021 130/72 06/29/2021 156/74 01/25/2021 132/68 01/06/2021 144/72 01/04/2021 130/70 12/14/2020 130/64 08/03/2020 132/70 01/07/2020 142/72 08/19/2019 118/68 05/26/2019 142/68 04/23/2019 132/68 Hyperlipidemia. Ms. Bailey reports doing well on current therapy Her most recent lipid panels are: Cholesterol, Total (mg/dL) Date Value 08/19/2021 175 07/29/2018 150 04/06/2018 168 HDL Cholesterol (mg/dL) Date Value 08/19/2021 45 07/29/2018 45 04/06/2018 44 LDL Cholesterol (mg/dL) Date Value 08/19/2021 107 04/06/2018 107 03/17/2017 127 LDL Calculated (mg/dL) Date Value 07/29/2018 95 Triglyceride (mg/dL) Date Value 08/19/2021 113 07/29/2018 52 04/06/2018 83 TIA recurrence: no recurrence symptoms Atrial fibrillation: chronic OAC, no current bleeding problems Stopped amiodarone recently after wearing a monitor. [facility] Dr. Damico TTE 10/2021. Asthma: chronic shortness of breath on exertion primarily; stable. Chronic right knee pain, sees Dr Encarnacion. Clogged tear duct right eye. Cataract surgery planned then doctor to address [facility]. She presents today for emergency department follow-up visit. She was seen at [facility] emergency department January 06, 2022 with report of tailbone and sacral pain x2 weeks. Presented when pain became worse. She reported when arising from a seated position she felt pain over her tailbone and felt a pop in the area. Reports pain is sharp. Reported it was better lying on her right side with taking Tylenol. Worse with certain positions. No paresthesias or weakness no bowel or bladder changes. No saddle anesthesia. Exam showed tenderness of the sacrum and left sacroiliac joint no bony crepitus or step-off range of motion limited in the lumbosacral spine due to pain. Strength is normal in lower extremities no sensory deficits noted. There is no fracture noted on x-ray. She was advised to use ice in the area and to use an inflatable donut pillow to sit on. She was advised to follow-up with primary care in 5 to 7 days. Today reports pain is better but still persist from tailbone up to mid sacrum area. Achy pain. Can be sharp with movement. Sensation preserved, mobility preserved, no reported bowel or bladder complaints or saddle anesthesia. Has used donut and side lying which can help. Review of Systems Constitutional: Negative. Eyes: Positive for visual disturbance. Respiratory: Positive for shortness of breath (SOBOE). Cardiovascular: Negative. Musculoskeletal: Positive for arthralgias and back pain. Objective BP 136/78 Pulse 60 Resp 16 Wt 93.4 kg (206 lb) BMI 33.27 kg/m Physical Exam Vitals and nursing note reviewed. Constitutional: Appearance: Normal appearance. HENT: Head: Normocephalic and atraumatic. Eyes: Conjunctiva/sclera: Conjunctivae normal. Neck: Thyroid: No thyromegaly. Vascular: Normal carotid pulses. No JVD. Cardiovascular: Rate and Rhythm: Normal rate and regular rhythm. Pulses: Carotid pulses are 2+ on the right side and 2+ on the left side. Heart sounds: Normal heart sounds. Pulmonary: Effort: Pulmonary effort is normal. Breath sounds: Normal breath sounds. Abdominal: General: Bowel sounds are normal. Palpations: Abdomen is soft. Musculoskeletal: Lumbar back: Tenderness present. Decreased range of motion. Right lower leg: No edema. Left lower leg: No edema. Skin: General: Skin is warm and dry. Neurological: General: No focal deficit present. Mental Status: She is alert and oriented to person, place, and time. ALLERGIES Allergen Reactions Adhesive Tape (Marilou* Rash Bactrim Ds [Sulfame* Anaphylaxis Difficulty breathing, fever, chills Bee Sting Anaphylaxis Darvon [Propoxyphen* Influenza Virus Vac* Other: See Comments Chest tightness, arm swelling. Prednisone GI Upset ammonium lactate (LAC-HYDRIN) 12 % lotion Apply 1 application to affected area once daily as needed for dry skin (arms). atorvastatin (LIPITOR) 40 mg tablet Take 1 tablet by mouth once daily. verapamil SR (CALAN SR, ISOPTIN SR) 240 mg CR tablet Take 1 tablet by mouth daily at bedtime. pantoprazole DR (PROTONIX) 20 mg tablet Take 1 tablet by mouth once daily. fluticasone-salmeterol (ADVAIR DISKUS) 100-50 mcg/dose inhaler Inhale 1 Puff as instructed twice daily. RINSE AND GARGLE MOUTH WITH WATER AFTER EACH USE. albuterol HFA (PROVENTIL HFA, VENTOLIN HFA) 90 mcg/actuation inhaler Inhale 2 Puffs as instructed every 6 hours as needed. albuterol (PROVENTIL) 2.5 mg /3 mL (0.083 %) nebulizer solution Use 3 mL via nebulizer every 4 hours as needed for wheezing/shortness of breath. Use over 5-15minutes. apixaban (ELIQUIS) 5 mg tab(s) Take 5 mg by mouth twice daily. Will start when delivered ondansetron orally disintegrating (ZOFRAN ODT) 4 mg disintegrating tablet DISSOLVE 1 TABLET ON THE TONGUE EVERY 6 HOURS NEEDED FOR NAUSEA/VOMITING EPINEPHrine (AUVI-Q) 0.3 mg/0.3 mL auto-injector Inject 0.3 mL intramuscularly as needed. meclizine (ANTIVERT) 25 mg tab Take 1 tablet by mouth every 6 hours as needed (dizziness). fluticasone (FLONASE) 50 mcg/actuation nasal spray Use 2 Sprays in each nostril once daily. benzonatate (TESSALON PERLES) 100 mg capsule Take 2 capsules by mouth three times daily as needed. (Patient taking differently: Take 200 mg by mouth three times daily as needed. PRN) bifidobacteri bifid.and longum (FLORAJEN BIFIDOBLEND) 460 mg (9-1 bill.cell) cap Take 1 capsule by mouth once daily. metoprolol tartrate, short acting, (LOPRESSOR) 25 mg tablet Take 12.5 mg by mouth twice daily. cycloSPORINE (RESTASIS) 0.05 % ophthalmic emulsion Use 1 Drop in both eyes twice daily. Both eyes. loratadine (CLARITIN) 10 mg tablet Take 1 tablet by mouth once daily. Nebulizer NEBULIZER FOR HOME USE. DX: J45.20 diclofenac sodium (VOLTAREN) 1 % topical gel Apply 2 g to affected area four times daily. PAST MEDICAL HISTORY Diagnosis Date Arthropathy, unspecified, site unspecified Asthma Back pain Calculus of kidney 05/09/2018 Colon polyps 2014 Diverticulitis 2000 Environmental allergies GERD (gastroesophageal reflux disease) Hyperlipidemia lifestyle controlled Hypertension IBS (irritable bowel syndrome) Migraine Obesity Social History Tobacco Use Smoking status: Never Smokeless tobacco: Never Vaping Use Vaping Use: Never used Substance Use Topics Alcohol use: No Drug use: No ASSESSMENT/PLAN: 1. Sacroiliitis (HCC) - ICD9: 720.2, ICD10: M46.1 (primary diagnosis) She reports avoiding Tylenol for pain due to concern regarding liver, has upcoming biopsy. Not taking NSAIDs due to upcoming eye procedure. States did not tolerate prednisone due to GI upset in the past. Treat with methylprednisolone which she has tolerated previously. Continue to use bed pillow or donut, walk periodically within the home. Gentle range of motion. Apply ice to affected area. - CONSULT TO PHYSICAL THERAPY - [facility] - schedule if not improving - METHYLPREDNISOLONE 4 MG TABLETS IN A DOSE PACK Faith Mullins APRN.MEDICAL PAYMENT POSTER 6 mo follow up Fatemeh Rogers MD with labs Faith Mullins APRN.CNS Medical Decision Making: Problems: Moderate: New problem with uncertain prognosis Risk: Moderate: Drug management Medical Decision Making Level: 4 - Moderate documented in this encounter [facility] 01-06-2022 Miscellaneous Notes Noted, agree with her needing evaluation with those symptoms. Patient calls to report that she has been having tailbone pain that is bothersome when she sits but this morning patient rates it a 8-9/10 and this morning when she moved she felt an odd sensation that moved up her tailbone and buttocks and now she is having difficulty ambulating. Recommended ED for evaluation given the amount of pain and difficulty ambulating. Patient reports she doesn't have anyone to assist her to ED so patient will call ambulance for transport. Edna Plummer RN documented in this encounter [facility] 12-27-2021 Miscellaneous Notes Sw spoke with patient and let her know information below. Patient notes that she will go to [employer] [place] tomorrow morning and see what is going on with status of rent assistance application. Patient is aware that she can reach out to for any future needs. Sw received message from patient that she called [employer] and left another message for [facility]. Patient notes that she would appreciate any assistance with SW reaching out to [facility] in regards to back rent assistance. Sw will reach out to [facility] at [employer] and see what she has to say about patient application. Sw spoke with [employer] and was told patient would need to apply to rent assistance program now this month. Patient will need to bring in income information and can go down to [employer] office today or tomorrow from 8-3:30. Claudette not able to go in to any detail regarding patient past applications. Lulu called patient to let her know about going to [employer] office to apply now for assistance today or tomorrow from 8-3:30. No answer and patient vmail is full. Lulu will try call again later. Sw spoke with patient in regards to housing issues. Patient reports that she applied to [facility] [employer] for help with back rent. Patient reports that she also receives [employer]. Patient notes that she has not hear anymore from landlords in regards to if they will be evicting her. Patient reports that she keeps calling [facility] to see what status is for back rent. She has not heard back from [facility]. Lulu notes that if patient can try beginning of next week to contact [facility] and see if she receives response. If patient does not receive response, Lulu will call on Sunday to see if [facility] will make call to patient to update. Patient noted that she would appreciate Lulu assistance with contacting [facility]. Patient will call Lulu back Sunday morning to let he know if able to connect with [facility]. documented in this encounter [facility] 12-22-2021 Instructions Faith Mullins APRN.CNS - 12/22/2021 2:37 PM EDT Check to see if your insurance covers shingles vaccine and what location to get the vaccine -usually best covered at your local pharmacy where you get prescriptions filled documented in this encounter [facility] 12-22-2021 History of Present illness Narrative SUBJECTIVE: SPIROMETRY Never done BP CONTROLLED (<130/80) Never done SHINGRIX VACCINE(1 of 2) Never done MAMMOGRAM due on 06/26/2017 ADVANCE DIRECTIVE DISCUSSION Never done DEPRESSION ASSESSMENT Never done COVID-19 VACCINE(4 - Booster for Pfizer series) due on 08/24/2021 INFLUENZA(1) due on 10/27/2021 HPI Romain Bailey is a 71 year old female. PMH is significant for ACTIVE PROBLEM LIST Environmental Allergies Asthma Arthropathy, Unspecified, Site Unspecified Essential Hypertension Ibs (Irritable Bowel Syndrome) Gerd (Gastroesophageal Reflux Disease) Migraine Hyperlipidemia, Mixed History of Colon Polyps Chronic Pain of Right Knee Primary Osteoarthritis of Right Knee Bppv (Benign Paroxysmal Positional Vertigo) Bee Sting Allergy Bilateral Low Back Pain With Bilateral Sciatica Calculus of Kidney Llq Pain History of Tia (Transient Ischemic Attack) Dry Skin Atrial Fibrillation With Rapid Ventricular Response (Hcc) PCP: Erik Reynolds MD Seen by Dr Rogers 06/2021. Since last here had GIB, colitis at [facility] 09/15/2021. Seen by Dr Cowan 11/2021 in office. Colonoscopy end of October. Fibroscan recommended, then follow up recommended. Presents at [facility] to establish care. She reports losing her job and pandemic and getting behind intermittent. Notes her current landlord is trying to evict her. She reports she reached out to community action about 1 month ago and does not hurt anymore from her landlord. HTN: Occasional palpitations. headache, chest pain, dyspnea, peripheral edema, orthopnea, fatigue, and PND. Last 14 Encounter BP Readings: Date: BP: 12/22/2021 140/80 10/11/2021 136/80 08/15/2021 142/78 08/12/2021 130/72 06/29/2021 156/74 01/25/2021 132/68 01/06/2021 144/72 01/04/2021 130/70 12/14/2020 130/64 08/03/2020 132/70 01/07/2020 142/72 08/19/2019 118/68 05/26/2019 142/68 04/23/2019 132/68 Hyperlipidemia. Ms. Bailey reports doing well on current therapy Her most recent lipid panels are: Cholesterol, Total (mg/dL) Date Value 08/19/2021 175 07/29/2018 150 04/06/2018 168 HDL Cholesterol (mg/dL) Date Value 08/19/2021 45 07/29/2018 45 04/06/2018 44 LDL Cholesterol (mg/dL) Date Value 08/19/2021 107 04/06/2018 107 03/17/2017 127 LDL Calculated (mg/dL) Date Value 07/29/2018 95 Triglyceride (mg/dL) Date Value 08/19/2021 113 07/29/2018 52 04/06/2018 83 TIA recurrence: no recurrence symptoms Atrial fibrillation: chronic OAC, no current bleeding problems Stopped amiodarone recently after wearing a monitor. [facility] Dr. Damico TTE 10/2021. Asthma: chronic shortness of breath on exertion primarily; stable. Chronic right knee pain, sees Dr Encarnacion. Clogged tear duct right eye. Cataract surgery planned then doctor to address [facility]. Review of Systems Constitutional: Negative. Eyes: Positive for visual disturbance. Respiratory: Positive for shortness of breath (SOBOE). Cardiovascular: Negative. Musculoskeletal: Positive for arthralgias. Objective BP 140/80 Pulse (!) 59 Resp 16 Wt 93.9 kg (207 lb) SpO2 96% BMI 33.43 kg/m Physical Exam Vitals and nursing note reviewed. Constitutional: Appearance: Normal appearance. HENT: Head: Normocephalic and atraumatic. Eyes: Conjunctiva/sclera: Conjunctivae normal. Neck: Thyroid: No thyromegaly. Vascular: Normal carotid pulses. No JVD. Cardiovascular: Rate and Rhythm: Normal rate and regular rhythm. Pulses: Carotid pulses are 2+ on the right side and 2+ on the left side. Heart sounds: Normal heart sounds. Pulmonary: Effort: Pulmonary effort is normal. Breath sounds: Normal breath sounds. Abdominal: General: Bowel sounds are normal. Palpations: Abdomen is soft. Musculoskeletal: Right lower leg: No edema. Left lower leg: No edema. Skin: General: Skin is warm and dry. Neurological: General: No focal deficit present. Mental Status: She is alert and oriented to person, place, and time. ALLERGIES Allergen Reactions Adhesive Tape (Marilou* Rash Bactrim Ds [Sulfame* Anaphylaxis Difficulty breathing, fever, chills Bee Sting Anaphylaxis Darvon [Propoxyphen* Influenza Virus Vac* Other: See Comments Chest tightness, arm swelling. Prednisone GI Upset albuterol HFA (PROVENTIL HFA, VENTOLIN HFA) 90 mcg/actuation inhaler Inhale 2 Puffs as instructed every 6 hours as needed. apixaban (ELIQUIS) 5 mg tab(s) Take 5 mg by mouth twice daily. Will start when delivered atorvastatin (LIPITOR) 40 mg tablet Take 1 tablet by mouth once daily. verapamil SR (CALAN SR, ISOPTIN SR) 240 mg CR tablet Take 1 tablet by mouth daily at bedtime. ammonium lactate (LAC-HYDRIN) 12 % lotion Apply 1 application to affected area as needed for Dry Skin (arms). pantoprazole DR (PROTONIX) 20 mg tablet Take 1 tablet by mouth once daily. fluticasone-salmeterol (ADVAIR DISKUS) 100-50 mcg/dose inhaler Inhale 1 Puff as instructed twice daily. RINSE AND GARGLE MOUTH WITH WATER AFTER EACH USE. diclofenac sodium (VOLTAREN) 1 % topical gel Apply 2 g to affected area four times daily. ondansetron orally disintegrating (ZOFRAN ODT) 4 mg disintegrating tablet DISSOLVE 1 TABLET ON THE TONGUE EVERY 6 HOURS NEEDED FOR NAUSEA/VOMITING EPINEPHrine (AUVI-Q) 0.3 mg/0.3 mL auto-injector Inject 0.3 mL intramuscularly as needed. meclizine (ANTIVERT) 25 mg tab Take 1 tablet by mouth every 6 hours as needed (dizziness). fluticasone (FLONASE) 50 mcg/actuation nasal spray Use 2 Sprays in each nostril once daily. benzonatate (TESSALON PERLES) 100 mg capsule Take 2 capsules by mouth three times daily as needed. (Patient taking differently: Take 200 mg by mouth three times daily as needed. PRN) bifidobacteri bifid.and longum (FLORAJEN BIFIDOBLEND) 460 mg (9-1 bill.cell) cap Take 1 capsule by mouth once daily. metoprolol tartrate, short acting, (LOPRESSOR) 25 mg tablet Take 12.5 mg by mouth twice daily. cycloSPORINE (RESTASIS) 0.05 % ophthalmic emulsion Use 1 Drop in both eyes twice daily. Both eyes. loratadine (CLARITIN) 10 mg tablet Take 1 tablet by mouth once daily. Nebulizer NEBULIZER FOR HOME USE. DX: J45.20 albuterol (PROVENTIL) 2.5 mg /3 mL (0.083 %) nebulizer solution Use 3 mL via nebulizer every 4 hours as needed for Wheezing/Shortness of Breath. Use over 5-15minutes. amiodarone (PACERONE) 200 mg tablet Take 1 tablet by mouth once daily. (Patient not taking: Reported on 12/22/2021) guaiFENesin (MUCINEX) 1,200 mg Ta12 Take by mouth twice daily. (Patient not taking: Reported on 12/22/2021) PAST MEDICAL HISTORY Diagnosis Date Arthropathy, unspecified, site unspecified Asthma Back pain Calculus of kidney 05/09/2018 Colon polyps 2014 Diverticulitis 2000 Environmental allergies GERD (gastroesophageal reflux disease) Hyperlipidemia lifestyle controlled Hypertension IBS (irritable bowel syndrome) Migraine Obesity Social History Tobacco Use Smoking status: Never Smokeless tobacco: Never Vaping Use Vaping Use: Never used Substance Use Topics Alcohol use: No Drug use: No ASSESSMENT/PLAN: 1. Asthma - ICD9: 493.90, ICD10: J45.909 (primary diagnosis) - Continue current meds - Avoidance of triggers recommended - Flu shot in the fall recommended - SPIROMETRY - BASELINE AND POST DILATOR 2. Need for shingles vaccine - ICD9: V04.89, ICD10: Z23 3. Encounter for immunization - ICD9: V03.89, ICD10: Z23 - PFIZER-BIONTECH COVID-19 BIVALENT BOOSTER VACCINE, AGE 12+ YR - INFLUENZA SEASONAL QUADRIVALENT HIGH DOSE AGE 65+ 4. Obstruction of right tear duct - ICD9: 375.56, ICD10: H04.551 Currently working with [facility], will let us know if wanting to be seen at [facility] - CONSULT TO OPHTHALMOLOGY 5. Financial difficulties - ICD9: V60.2, ICD10: Z59.9 Notes has worked with community action regarding eviction, currently still in home - PRIMARY CARE SOCIAL WORK CONSULT 6. TIA (transient ischemic attack) - ICD9: 435.9, ICD10: G45.9 - ATORVASTATIN 40 MG TABLET - CBC + DIFF - COMP METABOLIC PANEL - LIPID PANEL BASIC 7. Hyperlipidemia, mixed - ICD9: 272.2, ICD10: E78.2 - ATORVASTATIN 40 MG TABLET - CBC + DIFF - COMP METABOLIC PANEL - LIPID PANEL BASIC 8. Atrial fibrillation with rapid ventricular response (HCC) - ICD9: 427.31, ICD10: I48.91 - VERAPAMIL ER (SR) 240 MG TABLET,EXTENDED RELEASE 9. Essential hypertension - ICD9: 401.9, ICD10: I10 Stable, currently controlled, continue to monitor. - VERAPAMIL ER (SR) 240 MG TABLET,EXTENDED RELEASE 10. Gastroesophageal reflux disease - ICD9: 530.81, ICD10: K21.[address] Cowan [facility] - PANTOPRAZOLE 20 MG TABLET,DELAYED RELEASE - CBC + DIFF - COMP METABOLIC PANEL 11. Mild persistent asthma with acute exacerbation - ICD9: 493.92, ICD10: J45.31 - FLUTICASONE 100 MCG-SALMETEROL 50 MCG/DOSE BLISTR POWDR FOR INHALATION - ALBUTEROL SULFATE HFA 90 MCG/ACTUATION AEROSOL INHALER 12. Mild intermittent asthma without complication - ICD9: 493.90, ICD10: J45.20 - ALBUTEROL SULFATE 2.5 MG/3 ML (0.083 %) SOLUTION FOR NEBULIZATION 6 mo follow up Fatemeh Rogers MD with labs Faith Mullins APRN.MEDICAL PAYMENT POSTER Medical Decision Making: Problems: Moderate: 2+ stable chronic illnesses Data: Unique test(s) ordered: 3+ Risk: Moderate: Drug management Medical Decision Making Level: 4 - Moderate documented in this encounter [facility] 11-21-2021 Miscellaneous Notes Received 11/18/2021 from [facility]. Placed in provider's inbox for review. Route to [place] for scanning documented in this encounter [facility] 11-21-2021 Miscellaneous Notes Received 11/18/2021 from [facility]. Placed in provider's inbox for review. Route to [place] for scanning. documented in this encounter [facility] 10-13-2021 Miscellaneous Notes I called and discussed the ultrasound with the patient. There was a superficial phlebitis and I did make her aware. Recommended warm compresses. She is already on Eliquis. Follow-up with primary care. Patient agreeable with plan. documented in this encounter [facility] 10-13-2021 History of Present illness Narrative Radiology Service Progress Note PATIENT NAME: Romain Bailey DATE OF SERVICE: October 13, 2021 TIME: 12:01 PM PATIENT IDENTITY VERIFICATION COMPLETED USING TWO (2) IDENTIFIERS: Name and Date of confirmed by patient verbally. FALL SCREENING: Has the patient had 2 falls in the last year or 1 fall with injury or currently using an Ambulatory Assistive Device (Walker, Cane, Wheelchair, Crutches, etc.)? Yes, Patient High Risk for Falls What interventions were put in place to prevent falls during this visit? Instructed Patient to Call for Help if Needed, Offered Assistance with Transfers/Clothing, Instructed Patient to Remain Seated (Not on Exam Table) Until Exam, and Increased Observations by Caregivers PATIENT GENDER DATA: Female. status: Unknown status: NO. PATIENT RELEVANT IMPLANT DATA REVIEWED: Not Applicable RADIOLOGY DEPARTMENT: Ultrasound PERIPHERAL IV DATA: Not applicable SIGNED BY: Kristine Lewis RDMS RVT October 13, 2021 12:01 PM documented in this encounter [facility] 10-11-2021 Instructions Kristine Augustin APRN.[facility] - 10/11/2021 11:33 AM EDT R.I.C.E. The general care of your injury includes the following: Resting, Icing, Compressing and Elevating the injured area. Remember this as RICE. REST: Limit the use of the injured body part. ICE: By applying ice to the affected area, swelling and pain can be reduced. Place some ice cubes in a re-sealable (Ziploc) bag and add some water. Put a thin washcloth between the bag and your skin. Apply the ice bag to the area for at least 20 minutes. Do this at least 4 times per day. Using the ice for longer times and more frequently is OK. NEVER APPLY ICE DIRECTLY TO THE SKIN. COMPRESS: Compression means to apply pressure around the injured area such as with a splint, cast or an chapis bandage. Compression decreases swelling and improves comfort. Compression should be tight enough to relieve swelling but not so tight as to decrease circulation. Increasing pain, numbness, tingling, or change in skin color, are all signs of decreased circulation. ELEVATE: Elevate the injured part. For example, elevate your foot by placing it on a chair while sitting, or propping it up on pillows when lying down. documented in this encounter [facility] 10-11-2021 History of Present illness Narrative This note was created using [employer]ertter. Subjective Romain Bailey is a 71 year old female. 71 year old female with PMH migraine, HTN, afib (on Eliquis), IBS, astham, GERD presents for right lower leg pain. Acute onset of symptoms was one week ago States that she had fallen in a parking lot. Injured right leg +pain +ecchymosis + lump States the fall was mechanical in nature Denies that she struck her head or experienced LOC Denies neck or back pain She presents today related to continued right lower leg pain and bruising. Patient does take Eliquis daily. Denies that she has missed a dosage. The history is provided by the patient. No aerial gunner was used. Musculoskeletal Problem This is a new problem. The current episode started in the past 7 days. The problem occurs constantly. The problem has been unchanged. Pertinent negatives include no abdominal pain, anorexia, arthralgias, change in bowel habit, chest pain, chills, congestion, coughing, diaphoresis, fatigue, fever, headaches, joint swelling, myalgias, nausea, neck pain, numbness, rash, sore throat, swollen glands, urinary symptoms, vertigo, visual change, vomiting or weakness. Exacerbated by: touching, movement and walking. She has tried nothing for the symptoms. The treatment provided no relief. PAST MEDICAL HISTORY Diagnosis Date Arthropathy, unspecified, site unspecified Asthma Back pain Calculus of kidney 05/09/2018 Colon polyps 2014 Diverticulitis 2000 Environmental allergies GERD (gastroesophageal reflux disease) Hyperlipidemia lifestyle controlled Hypertension IBS (irritable bowel syndrome) Migraine Obesity PAST SURGICAL HISTORY Procedure Laterality Date CHOLECYSTECTOMY ~2003 Cholecystectomy laparoscopic COLONOSCOPY & POLYPECTOMY 12/03/2013 tubular adenoma, hyperplastic polyp; repeat due in 5y COLONOSCOPY FLX DX W/COLLJ SPEC WHEN PFRMD 05/29/2018 Colonoscopy DEBRIDEMENT SUBCUTANEOUS TISSUE 20 SQ CM/< 05/15/07 Debridement infected moira cyst upper mid back PAST SURGICAL HISTORY OF 1984 metal removed from right tibial area PAST SURGICAL HISTORY OF D&C TOTAL ABDOMINAL HYSTERECT W/WO RMVL TUBE OVARY 1999 MAURICE/BSO-pain, no abnormal paps ALLERGIES Adhesive Tape (Rosins), Bactrim Ds [Sulfamethoxazole-Trimethoprim], Bee Sting, Darvon [Propoxyphene Hcl], Influenza Virus Vaccines, and Prednisone MEDICATIONS albuterol HFA (PROVENTIL HFA, VENTOLIN HFA) 90 mcg/actuation inhaler Inhale 2 Puffs as instructed every 6 hours as needed. apixaban (ELIQUIS) 5 mg tab(s) Take 5 mg by mouth twice daily. Will start when delivered amiodarone (PACERONE) 200 mg tablet Take 1 tablet by mouth once daily. atorvastatin (LIPITOR) 40 mg tablet Take 1 tablet by mouth once daily. verapamil SR (CALAN SR, ISOPTIN SR) 240 mg CR tablet Take 1 tablet by mouth daily at bedtime. ammonium lactate (LAC-HYDRIN) 12 % lotion Apply 1 application to affected area as needed for Dry Skin (arms). pantoprazole DR (PROTONIX) 20 mg tablet Take 1 tablet by mouth once daily. fluticasone-salmeterol (ADVAIR DISKUS) 100-50 mcg/dose inhaler Inhale 1 Puff as instructed twice daily. RINSE AND GARGLE MOUTH WITH WATER AFTER EACH USE. diclofenac sodium (VOLTAREN) 1 % topical gel Apply 2 g to affected area four times daily. guaiFENesin (MUCINEX) 1,200 mg Ta12 Take by mouth twice daily. ondansetron orally disintegrating (ZOFRAN ODT) 4 mg disintegrating tablet DISSOLVE 1 TABLET ON THE TONGUE EVERY 6 HOURS NEEDED FOR NAUSEA/VOMITING EPINEPHrine (AUVI-Q) 0.3 mg/0.3 mL auto-injector Inject 0.3 mL intramuscularly as needed. meclizine (ANTIVERT) 25 mg tab Take 1 tablet by mouth every 6 hours as needed (dizziness). fluticasone (FLONASE) 50 mcg/actuation nasal spray Use 2 Sprays in each nostril once daily. benzonatate (TESSALON PERLES) 100 mg capsule Take 2 capsules by mouth three times daily as needed. (Patient taking differently: Take 200 mg by mouth three times daily as needed. PRN ) bifidobacteri bifid.and longum (FLORAJEN BIFIDOBLEND) 460 mg (9-1 bill.cell) cap Take 1 capsule by mouth once daily. metoprolol tartrate, short acting, (LOPRESSOR) 25 mg tablet Take 12.5 mg by mouth twice daily. cycloSPORINE (RESTASIS) 0.05 % ophthalmic emulsion Use 1 Drop in both eyes twice daily. Both eyes. loratadine (CLARITIN) 10 mg tablet Take 1 tablet by mouth once daily. Nebulizer NEBULIZER FOR HOME USE. DX: J45.20 albuterol (PROVENTIL) 2.5 mg /3 mL (0.083 %) nebulizer solution Use 3 mL via nebulizer every 4 hours as needed for Wheezing/Shortness of Breath. Use over 5-15minutes. FAMILY HISTORY Problem Relation Age of Onset None Mother from fall Diabetes Father Ischemic Heart Disease Father d[place] Ischemic Heart Disease Maternal Grandfather d. [place] while holding her at 4mo Blindness Brother Heart Attack Brother Social History Tobacco Use Smoking status: Never Smokeless tobacco: Never Vaping Use Vaping Use: Never used Substance Use Topics Alcohol use: No Drug use: No Review of Systems Constitutional: Negative for chills, diaphoresis, fatigue and fever. HENT: Negative for congestion, ear pain, facial swelling, hearing loss and sore throat. Eyes: Negative for pain, discharge, redness and itching. Respiratory: Negative for cough. Cardiovascular: Negative for chest pain. Gastrointestinal: Negative for abdominal pain, anorexia, change in bowel habit, nausea and vomiting. Endocrine: Negative for cold intolerance and heat intolerance. Musculoskeletal: Negative for arthralgias, joint swelling, myalgias and neck pain. Right lower leg Skin: Negative for rash. Allergic/Immunologic: Negative for environmental allergies, food allergies and immunocompromised state. Neurological: Negative for dizziness, vertigo, facial asymmetry, weakness, light-headedness, numbness and headaches. Hematological: Negative for adenopathy. Does not bruise/bleed easily. Psychiatric/Behavioral: Negative for agitation and behavioral problems. Objective BP 136/80 Pulse 86 Temp 36.1 C (97 F) Resp 16 Wt 93.6 kg (206 lb 6.4 oz) SpO2 97% BMI 33.33 kg/m Physical Exam Vitals and nursing note reviewed. Constitutional: General: She is not in acute distress. Appearance: Normal appearance. She is normal weight. She is not ill-appearing, toxic-appearing or diaphoretic. HENT: Head: Normocephalic and atraumatic. Right Ear: Ear canal and external ear normal. Left Ear: Ear canal and external ear normal. Nose: Nose normal. No congestion or rhinorrhea. Mouth/Throat: Mouth: Mucous membranes are moist. Pharynx: No oropharyngeal exudate or posterior oropharyngeal erythema. Eyes: General: Right eye: No discharge. Left eye: No discharge. Extraocular Movements: Extraocular movements intact. Conjunctiva/sclera: Conjunctivae normal. Pupils: Pupils are equal, round, and reactive to light. Cardiovascular: Rate and Rhythm: Normal rate and regular rhythm. Pulses: Normal pulses. Heart sounds: Normal heart sounds. No murmur heard. No friction rub. Pulmonary: Effort: Pulmonary effort is normal. No respiratory distress. Breath sounds: Normal breath sounds. No stridor. No wheezing, rhonchi or rales. Chest: Chest wall: No tenderness. Abdominal: General: Abdomen is flat. There is no distension. Palpations: Abdomen is soft. There is no mass. Tenderness: There is no abdominal tenderness. There is no right CVA tenderness, left CVA tenderness, guarding or rebound. Hernia: No hernia is present. Musculoskeletal: General: No swelling, tenderness, deformity or signs of injury. Normal range of motion. Cervical back: Normal range of motion and neck supple. No rigidity. Right lower leg: No edema. Left lower leg: No edema. Comments: Right posterior tib fib region with generalized ecchymosis. +TTP Skin intact +hematoma palpated +neuro +sensation DP +2 B/L Lymphadenopathy: Cervical: No cervical adenopathy. Skin: General: Skin is warm and dry. Capillary Refill: Capillary refill takes less than 2 seconds. Coloration: Skin is not jaundiced or pale. Findings: No bruising, erythema, lesion or rash. Neurological: General: No focal deficit present. Mental Status: She is alert and oriented to person, place, and time. Cranial Nerves: No cranial nerve deficit. Sensory: No sensory deficit. Motor: No weakness. Coordination: Coordination normal. Gait: Gait normal. Psychiatric: Mood and Affect: Mood normal. Behavior: Behavior normal. Thought Content: Thought content normal. Judgment: Judgment normal. Assessment and Plan ASSESSMENT/PLAN: 1. Pain in right lower leg - ICD9: 729.5, ICD10: M79.661 (primary diagnosis) +injury One week ago Denies seeking medical treatment at the time Presents with continued pain - XR TIBIA FIBULA 2V AP/LAT RIGHT-negative for fracture - US DVT LOWER RT-scheduled for , 10/13/21 Patient is currently on Eliquis. 2. Fall, initial encounter - ICD9: E888.9, ICD10: W19.XXXA X 1 week ago Mechanical in nature Denies head trauma or injury. Denies LOC Kristine Augustin APRN.[employer] documented in this encounter [facility] 09-16-2021 Miscellaneous Notes Received 09/16/2021 from [facility]. Placed in provider's inbox for review. Route to [place] for scanning Ct abdomen and pelvis without contrast Findings consistent with non specific colitis involving predominately the transverse descending and rectosigmoid segments without inflammatory stranding in the fat at this time. There is slightly hyperalttenuated density within the cecum of uncertain significance possibly due to recently ingested material. Intraluminal hemorrhage not entirely excluded documented in this encounter [facility] 09-16-2021 Miscellaneous Notes Received 09/16/2021 from [facility]. Placed in provider's inbox for review. Route to [place] for scanning Emergency room summary GI bleed Acute lower gastrointestinal bleeding. Anticoagulated Colitis Discharge acute care [facility] documented in this encounter [facility] 09-06-2021 Miscellaneous Notes Received echo from [facility]. Placed in provider's inbox for review. Route to [facility]. documented in this encounter [facility] 09-05-2021 Miscellaneous Notes Prescription request pended to be sent to [facility]. documented in this encounter [facility] 09-01-2021 Miscellaneous Notes Last appointment: 08-12-21 Next appointment: 12-30-21 Pharmacy verified in [facility]. Refill(s) requested: Pending Prescriptions Disp Refills ALBUTEROL SULFATE HFA 90 MCG/ACTUATION AEROSOL INHALER 18 g 0 Sig: Inhale 2 Puffs as instructed every 6 hours as needed. KIKO: No Order(s) pended. Please advise. Anne-Marie Goodman MA, SALT GRINDER documented in this encounter [facility] 08-15-2021 History of Present illness Narrative 08/15/2021 Patient presents with: Eye Problem Right Eye: swollen, sore x2 days SUBJECTIVE: This is a 71 year old that is here today for Complaint(s) of right eye tearduck felt swollen and uncomortable x 2 days ago. Now having more swelling extending under the eye and upper eyelid. + purulent drainage, mild from the inner tearduct per patient. No eye redness, eye trauma. She did note some bluriness with the drainage and tears. Does not wear contact lenses. Denies fever/chills, vision changes . PAST MEDICAL HISTORY Diagnosis Date Arthropathy, unspecified, site unspecified Asthma Back pain Calculus of kidney 05/09/2018 Colon polyps 2014 Diverticulitis 2000 Environmental allergies GERD (gastroesophageal reflux disease) Hyperlipidemia lifestyle controlled Hypertension IBS (irritable bowel syndrome) Migraine Obesity ALLERGIES Adhesive Tape (Rosins), Bactrim Ds [Sulfamethoxazole-Trimethoprim], Bee Sting, Darvon [Propoxyphene Hcl], Influenza Virus Vaccines, and Prednisone MEDICATIONS Current Outpatient Medications Medication Sig apixaban (ELIQUIS) 5 mg tab(s) Take 5 mg by mouth twice daily. Will start when delivered albuterol HFA (PROVENTIL HFA, VENTOLIN HFA) 90 mcg/actuation inhaler INHALE 2 PUFFS INSTRUCTED EVERY 6 HOURS NEEDED. amiodarone (PACERONE) 200 mg tablet Take 1 tablet by mouth once daily. atorvastatin (LIPITOR) 40 mg tablet Take 1 tablet by mouth once daily. verapamil SR (CALAN SR, ISOPTIN SR) 240 mg CR tablet Take 1 tablet by mouth daily at bedtime. ammonium lactate (LAC-HYDRIN) 12 % lotion Apply 1 application to affected area as needed for Dry Skin (arms). pantoprazole DR (PROTONIX) 20 mg tablet Take 1 tablet by mouth once daily. fluticasone-salmeterol (ADVAIR DISKUS) 100-50 mcg/dose inhaler Inhale 1 Puff as instructed twice daily. RINSE AND GARGLE MOUTH WITH WATER AFTER EACH USE. diclofenac sodium (VOLTAREN) 1 % topical gel Apply 2 g to affected area four times daily. guaiFENesin (MUCINEX) 1,200 mg Ta12 Take by mouth twice daily. ondansetron orally disintegrating (ZOFRAN ODT) 4 mg disintegrating tablet DISSOLVE 1 TABLET ON THE TONGUE EVERY 6 HOURS NEEDED FOR NAUSEA/VOMITING EPINEPHrine (AUVI-Q) 0.3 mg/0.3 mL auto-injector Inject 0.3 mL intramuscularly as needed. meclizine (ANTIVERT) 25 mg tab Take 1 tablet by mouth every 6 hours as needed (dizziness). fluticasone (FLONASE) 50 mcg/actuation nasal spray Use 2 Sprays in each nostril once daily. benzonatate (TESSALON PERLES) 100 mg capsule Take 2 capsules by mouth three times daily as needed. (Patient taking differently: Take 200 mg by mouth three times daily as needed. PRN ) bifidobacteri bifid.and longum (FLORAJEN BIFIDOBLEND) 460 mg (9-1 bill.cell) cap Take 1 capsule by mouth once daily. metoprolol tartrate, short acting, (LOPRESSOR) 25 mg tablet Take 12.5 mg by mouth twice daily. cycloSPORINE (RESTASIS) 0.05 % ophthalmic emulsion Use 1 Drop in both eyes twice daily. Both eyes. loratadine (CLARITIN) 10 mg tablet Take 1 tablet by mouth once daily. Nebulizer NEBULIZER FOR HOME USE. DX: J45.20 albuterol (PROVENTIL) 2.5 mg /3 mL (0.083 %) nebulizer solution Use 3 mL via nebulizer every 4 hours as needed for Wheezing/Shortness of Breath. Use over 5-15minutes. No current facility-administered medications for this visit. SOCIAL HISTORY Social History Tobacco Use Smoking status: Never Smoker Smokeless tobacco: Never Used Vaping Use Vaping Use: Never used Substance Use Topics Alcohol use: No Drug use: No REVIEW OF SYSTEMS See HPI OBJECTIVE: BP 142/78 Pulse 81 Temp 36.2 C (97.1 F) Resp 24 Wt 95.5 kg (210 lb 9.6 oz) SpO2 96% BMI 34.01 kg/m APPEARANCE Well appearing, alert, in no acute distress, well-hydrated, well nourished. EYES PERRLA, conjunctiva and sclera normal. + mild erythema, edema of the right medial canthus with edema extending inferior orbital area. Mild TTP. EOMs intact. No periorbital edema. EARS External ears normal, canals clear. TMs normal ALONDRA NOSE/SINUS Nares normal. Septum midline. Mucosa normal. No drainage or sinus tenderness. THROAT normal, no erythema NECK Supple, no adenopathy; ASSESSMENT/PLAN: 1. Swelling of gland of right eyelid - ICD9: 373.2, ICD10: H02.843 Warm compresses F/u in 2-3 days if not improving, sooner if worsening - ERYTHROMYCIN 5 MG/GRAM (0.5 %) EYE OINTMENT Reviewed red flags and when to seek care sooner. The patient indicates understanding of these issues and agrees with the plan. Priscila Contreras PA-C documented in this encounter [facility] 08-12-2021 History of Present illness Narrative Exerpt from article about Medicare criteria for lift chair: The patient must have severe arthritis of the hip or knee, or have a severe neuromuscular disease. The seat lift mechanism must be a part of the physician's course of treatment and be prescribed to effect improvement, or arrest or retard deterioration in the patient's condition. The patient must be completely incapable of standing up from a regular armchair or any chair in their home. Once standing, the patient must have the ability to walk. By Medicare standards, the fact that a patient has difficulty or is even incapable of getting up from a chair, particularly a low chair, is not sufficient justification for a seat lift mechanism. Almost all patients who are capable of ambulating can get out of an ordinary chair, if the seat height is appropriate and the chair has arms. Medicare requires that the physician ordering the seat lift mechanism must be the attending physician or a consulting physician for the disease or condition resulting in the need for a seat lift. Erik Reynolds MD CHIEF COMPLAINT Patient presents with: Follow Up: lift chair prescription HISTORY OF PRESENT ILLNESS Romain Bailey is a 71 year old female who presents here today for evaluation for chair lift. I last saw this patient on 12/14/20. Frequent Falls Patient had a fall that landed her in the hospital. She got a hematoma from the fall and subsequently had to be taken off coumadin. She has been doing PT at home. Patient notes that the balance and strength in her legs are not where they should be. She is unable to do as much around the house. Patient has difficulty getting up and down from a seated position. She says that she can get up and down the stairs if she has a cane. Patient states that she has pain in her right knee, but has not seen an ortho doctor in a year. Cardiac Health adherent to current regimen without side effects from medication. No current symptoms. She has a history of afib, hypertension, and hyperlipidemia. 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 Health Maintenance Due for spirometry. Due for Shingrix series Due for depression screening. Due for advance directive discussion. Due for mammogram. Labs reviewed. Past medical history, appointments, medications, allergies reviewed. REVIEW OF SYSTEMS Pertinent positives/ negatives: General: Feels well, no fever, no chills, +obesity HEENT: No sinus congestion, earache, sore throat. Cardiac: No chest pain, palpitations +elevated BP Resp: No cough, wheeze, shortness of breath GI: No reflux symptoms, food intolerance, bowel changes. : No urinary frequency, dysuria. MS: +frequent falls +knee pain +leg weakness PAST MEDICAL HISTORY PAST MEDICAL HISTORY Diagnosis Date Arthropathy, unspecified, site unspecified Asthma Back pain Calculus of kidney 05/09/2018 Colon polyps 2014 Diverticulitis 2000 Environmental allergies GERD (gastroesophageal reflux disease) Hyperlipidemia lifestyle controlled Hypertension IBS (irritable bowel syndrome) Migraine Obesity PHYSICAL EXAMINATION BP 150/59 Pulse 63 Ht 167.6 cm (5' 5.98 ) Wt 94.8 kg (209 lb 1.6 oz) BMI 33.77 kg/m Repeat BP: 130/72 General: Alert, well developed, well nourished, no distress, pleasant and cooperative. Obese. Moves slow, has L ankle brace on . She is able to stand from chair with difficulty, walks with quad walker, with stabilization she's able to step up onton the exam chair platform and climb down with assist. Heart: Regular rate and rhythm. Normal S1 and S2. No murmurs, rubs, or gallops. Lungs: Clear to auscultation bilaterally. No respiratory distress. No wheezes, rales, or rhonchi. Abdomen: Soft, non-tender, no distention. Extremities: Feet/ankles without edema, posterior tibial pulses full and symmetrical. Assessment/Plan (R53.1) Generalized weakness (primary encounter diagnosis) (M17.11) Primary osteoarthritis of right knee Comment: patient having difficulty getting up out of her chair Plan: continue to do at home PT and advised to get a better chair. Patient does not fit medicare criteria for a lift chair. (R73.9) Hyperglycemia Comment: due for labs Plan: BASIC METABOLIC PNL, HGB A1C (S30.1XXS) Abdominal wall hematoma, sequela Comment: injury due to recent fall Plan: CBC, IRON + TIBC (Z91.030) Bee sting allergy Comment: has epi pen Plan: continue to monitor (E78.2) Hyperlipidemia, mixed (I48.91) Atrial fibrillation with rapid ventricular response (HCC) (I10) Essential hypertension Comment: blood pressure elevated on arrival and improved on repeat Plan: continue to follow cardiology (K21.9) Gastroesophageal reflux disease, unspecified whether esophagitis present Comment: well controlled Plan: continue on current regimen (Z13.220) Screening for lipid disorders Comment: Due for routine labs. Plan: LIPID PANEL BASIC No medications selected for refill. RTO: 6 months Scribe Attestation: By signing my name below, IMarlen, attest that this documentation has been prepared under the direction and in the presence of Paul Reynolds M.D. Electronically Signed: Rachael Colindres. August 12, 2021 7:37 AM Provider Attestation: IErik MD, personally performed the services described in this documentation. All medical record entries made by the scribe were at my direction and in my presence. I have reviewed the chart and discharge instructions (if applicable) and agree that the record reflects my personal performance and is accurate and complete. Electronically Signed: Erik Reynolds MD. August 12, 2021 1:20 PM documented in this encounter [facility] 08-08-2021 Miscellaneous Notes Received hospital follow up visit from [facility]. Placed in provider's inbox for review. Route to [place] scanning. documented in this encounter [facility] 07-27-2021 Miscellaneous Notes Received discharge summary from [facility] home health summary. Placed in provider's inbox for review. Route to MA scanning. documented in this encounter [facility] 07-18-2021 Miscellaneous Notes Faxed to [facility] home health services. documented in this encounter [facility] 07-18-2021 Miscellaneous Notes Received 07/18/2021 from [facility]. Placed in provider's inbox for review. Route to [place] for faxing [phone] PT order Re eval week of 07/17/2021 PT visit 07/15/2021 OPERATIONS SYSTEMS SPECIALIST evaluation documented in this encounter [facility] 07-18-2021 Miscellaneous Notes Received 07/18/2021 from [facility]. Placed in provider's inbox for review. Route to [place] for scanning Home health discharge OT. documented in this encounter [facility] 07-07-2021 Miscellaneous Notes Reviewed and signed by PCP. Faxed to [facility] home health. documented in this encounter [facility] 07-05-2021 Miscellaneous Notes Received request for pcp sign off from [facility] home health services. Placed in provider's inbox for review. Route to [place] fax documented in this encounter [facility] 07-04-2021 Miscellaneous Notes Message left for VICKEY Malhotra approval for OPERATIONS SYSTEMS SPECIALIST consult for patient per Radha Rodriguez CNP on behalf of Dr Reynolds. Verbal order approved by nm on behalf of Dr. Reynolds for OPERATIONS SYSTEMS SPECIALIST evaluation. Radha Rodriguez APRN.PRIMO Please advise Marya Rutledge OPERATIONS SYSTEMS SPECIALIST of Home Health at [facility] calling to ask for verbal order for a OPERATIONS SYSTEMS SPECIALIST eval for patient (at home not in hospital) Please call Marya at [phone] to advise and answer questions. documented in this encounter [facility] 07-04-2021 Miscellaneous Notes Received pt update from [facility]. Placed in provider's inbox for review. Route to MA scanning. documented in this encounter [facility] 07-01-2021 Miscellaneous Notes Faxed to [facility]. Confirmation received. Received 06/30/[address] [facility]. Placed in provider's inbox for review. Route to [place] faxing [phone] Certification and care plan 06/21/2021 - 08/19/2021 documented in this encounter [facility] 07-01-2021 Miscellaneous Notes Received 06/30/2021 from [facility]. Placed in provider's inbox for review. Route to [place] for scanning Missed visit PT 06/24/2021 documented in this encounter [facility] 06-29-2021 History of Present illness Narrative This note was created using [employer]. Subjective Romain Bailey is a 71 year old female. Patient presents with: Hospital F/U SUBJECTIVE: Romain Bailey is a 71 year old year old lady here today for hospital follow up appointment for review of medical conditions. PCP os Erik Reynolds MD Noted that when fell, hit knees, abdomen, chest and head. Large hematoma abdominal wall. Hurt wrist since was under her. Bad sprain. Coumadin was stopped after second time back to hospital because of the severe abdominal pain from the hematoma. Hurts in abdomen with cough or sneeze. Noted increased SOB since had fall. Has bruise right upper chest. Will follow up with digital x ray service engineer 07/17. Has PCP appointment 07/22 Tylenol for pain. Has Vicodin in case severe but avoids since makes her loopy . PAST MEDICAL HISTORY Diagnosis Date Arthropathy, unspecified, site unspecified Asthma Back pain Calculus of kidney 05/09/2018 Colon polyps 2013 Diverticulitis 2000 Environmental allergies GERD (gastroesophageal reflux disease) Hyperlipidemia lifestyle controlled Hypertension IBS (irritable bowel syndrome) Migraine Obesity Current Outpatient Medications Medication Sig albuterol HFA (PROVENTIL HFA, VENTOLIN HFA) 90 mcg/actuation inhaler INHALE 2 PUFFS INSTRUCTED EVERY 6 HOURS NEEDED. warfarin (COUMADIN) 3 mg tablet Take 2 tablets by mouth every Sunday,Sunday,Sunday AND 1 tablet every Sunday,Sunday,,Sunday. (Patient not taking: Reported on 06/29/2021) amiodarone (PACERONE) 200 mg tablet Take 1 tablet by mouth once daily. atorvastatin (LIPITOR) 40 mg tablet Take 1 tablet by mouth once daily. verapamil SR (CALAN SR, ISOPTIN SR) 240 mg CR tablet Take 1 tablet by mouth daily at bedtime. ammonium lactate (LAC-HYDRIN) 12 % lotion Apply 1 application to affected area as needed for Dry Skin (arms). pantoprazole DR (PROTONIX) 20 mg tablet Take 1 tablet by mouth once daily. fluticasone-salmeterol (ADVAIR DISKUS) 100-50 mcg/dose inhaler Inhale 1 Puff as instructed twice daily. RINSE AND GARGLE MOUTH WITH WATER AFTER EACH USE. diphenoxylate-atropine (LOMOTIL) 2.5-0.025 mg per tablet Take 1 tablet with each watery stool, maximum 4 per day (Patient not taking: Reported on 08/09/2020) montelukast (SINGULAIR) 10 mg tablet Take 1 tablet by mouth daily at bedtime. diclofenac sodium (VOLTAREN) 1 % topical gel Apply 2 g to affected area four times daily. guaiFENesin (MUCINEX) 1,200 mg Ta12 Take by mouth twice daily. meloxicam (MOBIC) 15 mg tablet Take 1 tablet by mouth once daily. With food. ondansetron orally disintegrating (ZOFRAN ODT) 4 mg disintegrating tablet DISSOLVE 1 TABLET ON THE TONGUE EVERY 6 HOURS NEEDED FOR NAUSEA/VOMITING EPINEPHrine (AUVI-Q) 0.3 mg/0.3 mL auto-injector Inject 0.3 mL intramuscularly as needed. meclizine (ANTIVERT) 25 mg tab Take 1 tablet by mouth every 6 hours as needed (dizziness). fluticasone (FLONASE) 50 mcg/actuation nasal spray Use 2 Sprays in each nostril once daily. benzonatate (TESSALON PERLES) 100 mg capsule Take 2 capsules by mouth three times daily as needed. (Patient taking differently: Take 200 mg by mouth three times daily as needed. PRN ) bifidobacteri bifid.and longum (FLORAJEN BIFIDOBLEND) 460 mg (9-1 bill.cell) cap Take 1 capsule by mouth once daily. metoprolol tartrate, short acting, (LOPRESSOR) 25 mg tablet Take 12.5 mg by mouth twice daily. thiamine mononitrate (VITAMIN B1) 100 mg tab Take 1 tablet by mouth once daily. (Patient not taking: Reported on 08/09/2020 ) cycloSPORINE (RESTASIS) 0.05 % ophthalmic emulsion Use 1 Drop in both eyes twice daily. Both eyes. loratadine (CLARITIN) 10 mg tablet Take 1 tablet by mouth once daily. Nebulizer NEBULIZER FOR HOME USE. DX: J45.20 albuterol (PROVENTIL) 2.5 mg /3 mL (0.083 %) nebulizer solution Use 3 mL via nebulizer every 4 hours as needed for Wheezing/Shortness of Breath. Use over 5-15minutes. GLUC PEERZ/CHONDRO PEREZ A/VIT C/MN (GLUCOSAMINE 1500 COMPLEX ORAL) Take 1 tablet by mouth once daily. No current facility-administered medications for this visit. PAST MEDICAL HISTORY Diagnosis Date Arthropathy, unspecified, site unspecified Asthma Back pain Calculus of kidney 05/09/2018 Colon polyps 2013 Diverticulitis 2000 Environmental allergies GERD (gastroesophageal reflux disease) Hyperlipidemia lifestyle controlled Hypertension IBS (irritable bowel syndrome) Migraine Obesity Review of Systems Objective BP 156/74 Pulse 78 Wt 95.7 kg (211 lb) BMI 34.06 kg/m Physical Exam Constitutional: Appearance: Normal appearance. HENT: Head: Normocephalic. Eyes: Conjunctiva/sclera: Conjunctivae normal. Cardiovascular: Rate and Rhythm: Normal rate and regular rhythm. Heart sounds: Normal heart sounds. Pulmonary: Effort: Pulmonary effort is normal. Breath sounds: Normal breath sounds. Skin: General: Skin is warm and dry. Neurological: General: No focal deficit present. Mental Status: She is alert and oriented to person, place, and time. Psychiatric: Mood and Affect: Mood normal. Behavior: Behavior normal. Thought Content: Thought content normal. Judgment: Judgment normal. Abdomen/Pelvis W IV Cont ONLY [facility] Imaging Services [address] [place] [address] Abdomen/Pelvis W IV Cont ONLY MR#: [id number] Acct: [id number] Name: ROMAIN BAILEY Rep #: [id number] : 1950 F 71 From: Kaia Moran PCP: Dr. Paul Reynolds MD Status: REG ER Study: Abdomen/Pelvis W IV Cont ONLY Date of Exam: Exam# [id number] Ordering Dr: Prakash Stephens MD STUDY: CT ABDOMEN AND PELVIS WITH CONTRAST REASON FOR EXAM: Female, 71 years old. llq pain RADIATION DOSAGE (If Supplied By Facility): CTDIvol = ( 15.37 ) mGy, DLP = ( 1053.10 ) mGycm TECHNIQUE: Transaxial images were obtained from the dome of the diaphragm to the symphysis pubis without oral contrast. IV 100mL Isovue-300 was administered. Sagittal and coronal images were reconstructed. Individualized dose optimization techniques were used for this CT. COMPARISON: CT abdomen pelvis 05/09/2018. __ FINDINGS: LOWER CHEST: Reticular opacities in the lung bases may be scarring or atelectasis. Small hiatal hernia. LIVER: Unremarkable. GALLBLADDER/BILE DUCTS: Gallbladder surgically absent. PANCREAS: Unremarkable. SPLEEN: Unremarkable. ADRENAL GLANDS: Unremarkable. KIDNEYS / URETERS: A few small cysts in the kidneys. No hydronephrosis. BOWEL / MESENTERY: Scattered diverticula in the colon. No bowel obstruction. Moderate amount stool in the colon mainly the ascending through transverse. APPENDIX: Identified and normal. No evidence of acute appendicitis. PERITONEUM: No free air. No free fluid. VESSELS: Abdominal aorta is normal caliber. RETROPERITONEUM: Unremarkable. REPRODUCTIVE ORGANS: Uterus not identified. BLADDER: Unremarkable. ABDOMINAL WALL: Heterogeneous enlargement of the abdominal wall left abdominal rectus muscle consistent with hematoma, begins above the umbilicus and extends to the pubic symphysis, largest component infraumbilical measures maximal 6.5 x 5.2 cm axial by 10 cm craniocaudal, with a fluid density level. There is a tiny hyperattenuating focus within the medial aspect of this larger component suspicious for active bleeding.. BONES: Degenerative changes lumbar spine with minimal anterolisthesis at L4-5. OTHER: None. __ CT/Abdomen/Pelvis W IV Cont ONLY IMPRESSION: Large abdominal wall rectus sheath hematoma on the left with possible small focus of active bleeding. No acute intra-abdominal findings. Colonic diverticulosis without evidence of acute diverticulitis. N.B. : The above Results were Read Back by Kaia Ledesma MD to Prakash Stephens MD, and understanding confirmed on 06/19/2021 02:03:58 (ET). Electronically Signed: Kaia Ledesma MD at 2:03 EDT , CC: Dr. Prakash Stephens MD; Dr. Paul Reynolds MD Basting Cleaner: Signed Assessment and Plan ASSESSMENT/PLAN: 1. Abdominal wall hematoma, sequela - ICD9: 906.3, ICD10: S30.1XXS (primary diagnosis) Doing better. Further evaluation and treatment as indicated. 2. Adhesive capsulitis of left shoulder - ICD9: 726.0, ICD10: M75.02 Consider PT or ortho eval for follow up 3. AF (paroxysmal atrial fibrillation) (HCC) - ICD9: 427.31, ICD10: I48.0 Continue present management. 4. Need for COVID-19 vaccine - ICD9: V04.89, ICD10: Z23 - PFIZER-BIONTECH COVID-19 VACCINE, AGE 12+ YR (SOLANO TOP) Fatemeh Rogers MD documented in this encounter [facility] 06-22-2021 Miscellaneous Notes Patient scheduled She will need a visit, please schedule with Dr. Reynolds. Radha Rodriguez APRN.FIBERGLASS LUGGAGE MOLDER .Romain Giulia Bailey is calling Erik Reynolds MD today to request a prescription for a lift chair. Patient states that insurance will cover. Patient was released from hospital and is having issues with balance and strength. Please return call to patient if this can be done. No chief complaint on file. Patient has been identified by name and birthdate. Duration of symptoms: NA Person calling: self Call patient at: at home [phone] (home) [phone] (cell) Was an appointment scheduled: No Closing statement: Results or non-symptom based questions: Thank you for calling [facility], your call will be returned within the next business day. Sari Hooper documented in this encounter [facility] 06-21-2021 Miscellaneous Notes Received 06/21/2021 from [facility]. Placed in provider's inbox for review. Route to [place] scanning documented in this encounter [facility] 06-20-2021 Miscellaneous Notes Susan from [facility] called to check to see if the doctor will follow for home care, she already has the orders from the hospital; gave verbal permission. OK to give verbal orders for PT and OT by this provider on behalf of Dr. Reynolds. Radha Rodriguez APRN.FIBERGLASS LUGGAGE MOLDER Susan from [facility] home care called patient Romain being D/C today 06/20 for a fall traumatic hematoma, requesting verbal orders for PHYSICAL THERAPY and OT, ok to leave VM private. documented in this encounter [facility] 06-20-2021 Miscellaneous Notes Received 06/20/2021 from [facility]. Placed in provider's inbox for review. Route to [place] for scanning Rectus Sheath hematoma Warfarin on hold Referral Dr Destin Damico Within [address] Reynolds follow up in 1 week. documented in this encounter [facility] 06-20-2021 Miscellaneous Notes Received 06/20/2021 from [facility] ER Summary. Placed in provider's inbox for review. Route to [place] for scanning C/o left lower quadrant abd pain. CT abd pelvis with constrast Large abdominal wall retus sheath hematoma on the left with possible small focus of active bleeding No acute intra-abdominal findings Colonic diverticulosis with out evidence of Acute diverticulitis INR was 3.7 Received 5 mg of K. Hospitalist H & P admitted for observation Coumadin on hold Labs in am documented in this encounter [facility] 06-13-2021 Miscellaneous Notes Received 06/13/2021 from [facility]. Placed in provider's inbox for review. Route to IN for scanning ER Summary Fall Contusion of right wrist, right forearm, and right knee CT head X rays- right wrist Right knee right forearm documented in this encounter [facility] 06-13-2021 Miscellaneous Notes Received 06/13/2021 from [facility]. Placed in provider's inbox for review. Route to IN for scanning Fall CT brain without contrast Normal unenhanced CT scan of the brain X Ray right wrist Degenerative changes. No acute abnormality is seen. Forearm 2 views No fracture is seen 3 mm density in the medial ventral soft tissues overlying the proximal ulna Suggestive of a possible radiopaque foreign body X Ray right knee Degenerative arthrosis Small joint effusion documented in this encounter [facility] 06-10-2021 Miscellaneous Notes Reason For Call: Right wrist injury. Fell Disposition. Reason: Go To ED Now. Joint crooked Outcome: She plans to go to [place] ED. Care Advice: Elevate arm. Ice injured areas using a skin barrier like a towel Reason for Disposition Followed a hand or wrist injury Looks like a dislocated joint (e.g., crooked or deformed) Answer Assessment - Initial Assessment Questions 1. MECHANISM: Right wrist crooked and painful and red and fingers swollen Fell from bottom step on her porch. Tried to get up and fell again. Blames her right knee problem 2. ONSET: Yesterday afternoon 3. APPEARANCE of INJURY: See #1 for wrist. R wrist looks crooked. Lump on back of hand. R knee swelling worse than usual and more painful 4. SEVERITY: Can move fingers but it causes tingling 5. SIZE: See above 6. PAIN Right wrist 9-10 Left knee - 8 7. TETANUS: 2016 according to chart 8. OTHER SYMPTOMS: Headache yesterday. She hit her head when she fell yesterday. She takes a blood thinner type medication 9. : Post-menopausal Protocols used: WRIST [id number], HAND AND WRIST [id number] documented in this encounter [facility] 06-07-2021 History of Present illness Narrative POPULATION HEALTH NAVIGATION OUTREACH Action/I [facility] outreach Mammogram Mailbox full [employer] message sent Pt identified by name and : NO Outreach Outcome/Action Unable to reach patient: Phone number not valid / voicemail full [employer] message sent Reason for Outreach Care Gap or Scheduling/Wellness visits Payer: Payor: [employer] MEDICARE / Plan: [employer] / Product Type: HMO / Care Gap Reviewed:: Breast Cancer screening Reminder: Reminder note to check Health Maintenance for items below Health Maintenance items due: SPIROMETRY Never done BP CONTROLLED (<130/80) Never done SHINGRIX VACCINE(1 of 2) Never done MAMMOGRAM due on 06/26/2017 DEPRESSION SCREENING due on 08/31/2019 ADVANCE DIRECTIVE DISCUSSION Never done Message Sent to Practice: No Navigation Signature: Maame Monae MA June 07, 2021 11:28 AM documented in this encounter [facility] 08-03-2020 History of Present illness Narrative Radiology Service Progress Note PATIENT NAME: Romain Bailey DATE OF SERVICE: August 03, 2020 TIME: 9:45 AM PATIENT IDENTITY VERIFICATION COMPLETED USING TWO (2) IDENTIFIERS: Name and Date of confirmed by patient verbally. FALL SCREENING: Has the patient had 2 falls in the last year or 1 fall with injury or currently using an Ambulatory Assistive Device (Walker, Cane, Wheelchair, Crutches, etc.)? No PATIENT GENDER DATA: Female. status: : No status: NO. PATIENT RELEVANT IMPLANT DATA REVIEWED: Yes RADIOLOGY DEPARTMENT: General X-ray: Exam(s) Completed: Lower Extremity X-Ray(s): Ankle, Left PERIPHERAL IV DATA: Not applicable SIGNED BY: RT Tammie(R) August 03, 2020 9:45 AM documented in this encounter [facility] 01-07-2020 History of Present illness Narrative Radiology Service Progress Note PATIENT NAME: Romain Bailey DATE OF SERVICE: January 07, 2020 TIME: 8:54 AM PATIENT IDENTITY VERIFICATION COMPLETED USING TWO (2) IDENTIFIERS: Name and Date of confirmed by patient verbally. FALL SCREENING: Has the patient had 2 falls in the last year or 1 fall with injury or currently using an Ambulatory Assistive Device (Walker, Cane, Wheelchair, Crutches, etc.)? No PATIENT GENDER DATA: Female. status: : No status: NO. PATIENT RELEVANT IMPLANT DATA REVIEWED: Not Applicable RADIOLOGY DEPARTMENT: General X-ray: Exam(s) Completed: Upper Extremity X-Ray(s): Shoulder, AP / TRUE AP / AXILLARY left : PERIPHERAL IV DATA: Not applicable SIGNED BY: Myriam Thomas January 07, 2020 8:54 AM documented in this encounter [facility] 12-30-2018 History of Past i llness Narrative Problem Noted Date Diagnosed Date Resolved Date Atrial fibrillation with rap id ventricular response 12/30/2018 01/01/2023 Fracture of finger, middle o r proximal phalanx, closed 08/28/2012 12/10/2020 Sebaceous cyst 05/15/2007 04/16/2012 Diverticulitis 12/10/2020 documented as of this encounter (statuses as of 01/02/2023) [facility] History of Past illness Narrative* Problem Noted Date Diagnosed Date Resolved Date Atrial fibrillation with rap id ventricular response 12/30/2018 01/01/2023 Fracture of finger, middle o r proximal phalanx, closed 08/28/2012 12/10/2020 Sebaceous cyst 05/15/2007 04/16/2012 Diverticulitis 12/10/2020 documented as of this encounter (statuses as of 01/10/2023) [facility] History of Past illness Narrative* Problem Noted Date Diagnosed Date Resolved Date Atrial fibrillation with rap id ventricular response 12/30/2018 01/01/2023 Fracture of finger, middle o r proximal phalanx, closed 08/28/2012 12/10/2020 Sebaceous cyst 05/15/2007 04/16/2012 Diverticulitis 12/10/2020 documented as of this encounter (statuses as of 02/10/2023) [facility] History of Past illness Narrative* Problem Noted Date Diagnosed Date Resolved Date Atrial fibrillation with rap id ventricular response 12/30/2018 01/01/2023 Fracture of finger, middle o r proximal phalanx, closed 08/28/2012 12/10/2020 Sebaceous cyst 05/15/2007 04/16/2012 Diverticulitis 12/10/2020 documented as of this encounter (statuses as of 02/16/2023) [facility] History of Past illness Narrative* Problem Noted Date Diagnosed Date Resolved Date Atrial fibrillation with rap id ventricular response 12/30/2018 01/01/2023 Fracture of finger, middle o r proximal phalanx, closed 08/28/2012 12/10/2020 Sebaceous cyst 05/15/2007 04/16/2012 Diverticulitis 12/10/2020 documented as of this encounter (statuses as of 03/26/2023) [facility] History of Past illness Narrative* Problem Noted Date Diagnosed Date Resolved Date Atrial fibrillation with rap id ventricular response 12/30/2018 01/01/2023 Fracture of finger, middle o r proximal phalanx, closed 08/28/2012 12/10/2020 Sebaceous cyst 05/15/2007 04/16/2012 Diverticulitis 12/10/2020 documented as of this encounter (statuses as of 04/05/2023) [facility] History of Past illness Narrative* Problem Noted Date Diagnosed Date Resolved Date Atrial fibrillation with rap id ventricular response 12/30/2018 01/01/2023 Fracture of finger, middle o r proximal phalanx, closed 08/28/2012 12/10/2020 Sebaceous cyst 05/15/2007 04/16/2012 Diverticulitis 12/10/2020 documented as of this encounter (statuses as of 04/10/2023) [facility] History of Past illness Narrative* Problem Noted Date Diagnosed Date Resolved Date Atrial fibrillation with rap id ventricular response 12/30/2018 01/01/2023 Fracture of finger, middle o r proximal phalanx, closed 08/28/2012 12/10/2020 Sebaceous cyst 05/15/2007 04/16/2012 Diverticulitis 12/10/2020 documented as of this encounter (statuses as of 04/12/2023) [facility] History of Past illness Narrative* Problem Noted Date Diagnosed Date Resolved Date Atrial fibrillation with rap id ventricular response 12/30/2018 01/01/2023 Fracture of finger, middle o r proximal phalanx, closed 08/28/2012 12/10/2020 Sebaceous cyst 05/15/2007 04/16/2012 Diverticulitis 12/10/2020 documented as of this encounter (statuses as of 04/18/2023) [facility] History of Past illness Narrative* Problem Noted Date Diagnosed Date Resolved Date Atrial fibrillation with rap id ventricular response 12/30/2018 01/01/2023 Fracture of finger, middle o r proximal phalanx, closed 08/28/2012 12/10/2020 Sebaceous cyst 05/15/2007 04/16/2012 Diverticulitis 12/10/2020 documented as of this encounter (statuses as of 06/01/2023) [facility] History of Past illness Narrative* Problem Noted Date Resolved Date Fracture of finger, middle or proximal phalanx, closed 08/28/2012 12/10/2020 Sebaceous cyst 05/15/2007 04/16/2012 Diverticulitis 12/10/2020 documented as of this encounter (statuses as of 05/21/2021) [facility] History of Past illness Narrative* Problem Noted Date Resolved Date Fracture of finger, middle or proximal phalanx, closed 08/28/2012 12/10/2020 Sebaceous cyst 05/15/2007 04/16/2012 Diverticulitis 12/10/2020 documented as of this encounter (statuses as of 06/07/2021) [facility] History of Past illness Narrative* Problem Noted Date Resolved Date Fracture of finger, middle or proximal phalanx, closed 08/28/2012 12/10/2020 Sebaceous cyst 05/15/2007 04/16/2012 Diverticulitis 12/10/2020 documented as of this encounter (statuses as of 06/10/2021) [facility] History of Past illness Narrative* Problem Noted Date Resolved Date Fracture of finger, middle or proximal phalanx, closed 08/28/2012 12/10/2020 Sebaceous cyst 05/15/2007 04/16/2012 Diverticulitis 12/10/2020 documented as of this encounter (statuses as of 06/13/2021) [facility] History of Past illness Narrative* Problem Noted Date Resolved Date Fracture of finger, middle or proximal phalanx, closed 08/28/2012 12/10/2020 Sebaceous cyst 05/15/2007 04/16/2012 Diverticulitis 12/10/2020 documented as of this encounter (statuses as of 06/20/2021) [facility] History of Past illness Narrative* Problem Noted Date Resolved Date Fracture of finger, middle or proximal phalanx, closed 08/28/2012 12/10/2020 Sebaceous cyst 05/15/2007 04/16/2012 Diverticulitis 12/10/2020 documented as of this encounter (statuses as of 06/22/2021) [facility] History of Past illness Narrative* Problem Noted Date Resolved Date Fracture of finger, middle or proximal phalanx, closed 08/28/2012 12/10/2020 Sebaceous cyst 05/15/2007 04/16/2012 Diverticulitis 12/10/2020 documented as of this encounter (statuses as of 06/23/2021) [facility] History of Past illness Narrative* Problem Noted Date Resolved Date Fracture of finger, middle or proximal phalanx, closed 08/28/2012 12/10/2020 Sebaceous cyst 05/15/2007 04/16/2012 Diverticulitis 12/10/2020 documented as of this encounter (statuses as of 07/01/2021) [facility] History of Past illness Narrative* Problem Noted Date Resolved Date Fracture of finger, middle or proximal phalanx, closed 08/28/2012 12/10/2020 Sebaceous cyst 05/15/2007 04/16/2012 Diverticulitis 12/10/2020 documented as of this encounter (statuses as of 07/01/2021) [facility] History of Past illness Narrative* Problem Noted Date Resolved Date Fracture of finger, middle or proximal phalanx, closed 08/28/2012 12/10/2020 Sebaceous cyst 05/15/2007 04/16/2012 Diverticulitis 12/10/2020 documented as of this encounter (statuses as of 07/04/2021) [facility] History of Past illness Narrative* Problem Noted Date Resolved Date Fracture of finger, middle or proximal phalanx, closed 08/28/2012 12/10/2020 Sebaceous cyst 05/15/2007 04/16/2012 Diverticulitis 12/10/2020 documented as of this encounter (statuses as of 07/05/2021) [facility] History of Past illness Narrative* Problem Noted Date Resolved Date Fracture of finger, middle or proximal phalanx, closed 08/28/2012 12/10/2020 Sebaceous cyst 05/15/2007 04/16/2012 Diverticulitis 12/10/2020 documented as of this encounter (statuses as of 07/07/2021) [facility] History of Past illness Narrative* Problem Noted Date Resolved Date Fracture of finger, middle or proximal phalanx, closed 08/28/2012 12/10/2020 Sebaceous cyst 05/15/2007 04/16/2012 Diverticulitis 12/10/2020 documented as of this encounter (statuses as of 07/18/2021) [facility] History of Past illness Narrative* Problem Noted Date Resolved Date Fracture of finger, middle or proximal phalanx, closed 08/28/2012 12/10/2020 Sebaceous cyst 05/15/2007 04/16/2012 Diverticulitis 12/10/2020 documented as of this encounter (statuses as of 07/27/2021) [facility] History of Past illness Narrative* Problem Noted Date Resolved Date Fracture of finger, middle or proximal phalanx, closed 08/28/2012 12/10/2020 Sebaceous cyst 05/15/2007 04/16/2012 Diverticulitis 12/10/2020 documented as of this encounter (statuses as of 08/08/2021) [facility] History of Past illness Narrative* Problem Noted Date Resolved Date Fracture of finger, middle or proximal phalanx, closed 08/28/2012 12/10/2020 Sebaceous cyst 05/15/2007 04/16/2012 Diverticulitis 12/10/2020 documented as of this encounter (statuses as of 08/12/2021) [facility] History of Past illness Narrative* Problem Noted Date Resolved Date Fracture of finger, middle or proximal phalanx, closed 08/28/2012 12/10/2020 Sebaceous cyst 05/15/2007 04/16/2012 Diverticulitis 12/10/2020 documented as of this encounter (statuses as of 08/15/2021) [facility] History of Past illness Narrative* Problem Noted Date Resolved Date Fracture of finger, middle or proximal phalanx, closed 08/28/2012 12/10/2020 Sebaceous cyst 05/15/2007 04/16/2012 Diverticulitis 12/10/2020 documented as of this encounter (statuses as of 08/25/2021) [facility] History of Past illness Narrative* Problem Noted Date Resolved Date Fracture of finger, middle or proximal phalanx, closed 08/28/2012 12/10/2020 Sebaceous cyst 05/15/2007 04/16/2012 Diverticulitis 12/10/2020 documented as of this encounter (statuses as of 08/29/2021) [facility] History of Past illness Narrative* Problem Noted Date Resolved Date Fracture of finger, middle or proximal phalanx, closed 08/28/2012 12/10/2020 Sebaceous cyst 05/15/2007 04/16/2012 Diverticulitis 12/10/2020 documented as of this encounter (statuses as of 09/01/2021) [facility] History of Past illness Narrative* Problem Noted Date Resolved Date Fracture of finger, middle or proximal phalanx, closed 08/28/2012 12/10/2020 Sebaceous cyst 05/15/2007 04/16/2012 Diverticulitis 12/10/2020 documented as of this encounter (statuses as of 09/05/2021) [facility] History of Past illness Narrative* Problem Noted Date Resolved Date Fracture of finger, middle or proximal phalanx, closed 08/28/2012 12/10/2020 Sebaceous cyst 05/15/2007 04/16/2012 Diverticulitis 12/10/2020 documented as of this encounter (statuses as of 09/06/2021) [facility] History of Past illness Narrative* Problem Noted Date Resolved Date Fracture of finger, middle or proximal phalanx, closed 08/28/2012 12/10/2020 Sebaceous cyst 05/15/2007 04/16/2012 Diverticulitis 12/10/2020 documented as of this encounter (statuses as of 09/16/2021) [facility] History of Past illness Narrative* Problem Noted Date Resolved Date Fracture of finger, middle or proximal phalanx, closed 08/28/2012 12/10/2020 Sebaceous cyst 05/15/2007 04/16/2012 Diverticulitis 12/10/2020 documented as of this encounter (statuses as of 10/11/2021) [facility] History of Past illness Narrative* Problem Noted Date Resolved Date Fracture of finger, middle or proximal phalanx, closed 08/28/2012 12/10/2020 Sebaceous cyst 05/15/2007 04/16/2012 Diverticulitis 12/10/2020 documented as of this encounter (statuses as of 10/13/2021) [facility] History of Past illness Narrative* Problem Noted Date Resolved Date Fracture of finger, middle or proximal phalanx, closed 08/28/2012 12/10/2020 Sebaceous cyst 05/15/2007 04/16/2012 Diverticulitis 12/10/2020 documented as of this encounter (statuses as of 10/14/2021) [facility] History of Past illness Narrative* Problem Noted Date Resolved Date Fracture of finger, middle or proximal phalanx, closed 08/28/2012 12/10/2020 Sebaceous cyst 05/15/2007 04/16/2012 Diverticulitis 12/10/2020 documented as of this encounter (statuses as of 11/21/2021) [facility] History of Past illness Narrative* Problem Noted Date Resolved Date Fracture of finger, middle or proximal phalanx, closed 08/28/2012 12/10/2020 Sebaceous cyst 05/15/2007 04/16/2012 Diverticulitis 12/10/2020 documented as of this encounter (statuses as of 12/05/2021) [facility] History of Past illness Narrative* Problem Noted Date Resolved Date Fracture of finger, middle or proximal phalanx, closed 08/28/2012 12/10/2020 Sebaceous cyst 05/15/2007 04/16/2012 Diverticulitis 12/10/2020 documented as of this encounter (statuses as of 12/22/2021) [facility]2013 History of Past illness Narrative* Problem Noted Date Resolved Date Fracture of finger, middle or proximal phalanx, closed 08/28/2012 12/10/2020 Sebaceous cyst 05/15/2007 04/16/2012 Diverticulitis 12/10/2020 documented as of this encounter (statuses as of 12/27/2021) [facility]2013 History of Past illness Narrative* Problem Noted Date Resolved Date Fracture of finger, middle or proximal phalanx, closed 08/28/2012 12/10/2020 Sebaceous cyst 05/15/2007 04/16/2012 Diverticulitis 12/10/2020 documented as of this encounter (statuses as of 12/29/2021) [facility]2013 History of Past illness Narrative* Problem Noted Date Resolved Date Fracture of finger, middle or proximal phalanx, closed 08/28/2012 12/10/2020 Sebaceous cyst 05/15/2007 04/16/2012 Diverticulitis 12/10/2020 documented as of this encounter (statuses as of 12/30/2021) [facility]2013 History of Past illness Narrative* Problem Noted Date Resolved Date Fracture of finger, middle or proximal phalanx, closed 08/28/2012 12/10/2020 Sebaceous cyst 05/15/2007 04/16/2012 Diverticulitis 12/10/2020 documented as of this encounter (statuses as of 01/06/2022) [facility] History of Past illness Narrative* Problem Noted Date Resolved Date Fracture of finger, middle or proximal phalanx, closed 08/28/2012 12/10/2020 Sebaceous cyst 05/15/2007 04/16/2012 Diverticulitis 12/10/2020 documented as of this encounter (statuses as of 01/10/2022) [facility] History of Past illness Narrative* Problem Noted Date Resolved Date Fracture of finger, middle or proximal phalanx, closed 08/28/2012 12/10/2020 Sebaceous cyst 05/15/2007 04/16/2012 Diverticulitis 12/10/2020 documented as of this encounter (statuses as of 01/24/2022) [facility] History of Past illness Narrative* Problem Noted Date Resolved Date Fracture of finger, middle or proximal phalanx, closed 08/28/2012 12/10/2020 Sebaceous cyst 05/15/2007 04/16/2012 Diverticulitis 12/10/2020 documented as of this encounter (statuses as of 02/09/2022) [facility] History of Past illness Narrative* Problem Noted Date Resolved Date Fracture of finger, middle or proximal phalanx, closed 08/28/2012 12/10/2020 Sebaceous cyst 05/15/2007 04/16/2012 Diverticulitis 12/10/2020 documented as of this encounter (statuses as of 03/29/2022) [facility] History of Past illness Narrative* Problem Noted Date Resolved Date Fracture of finger, middle or proximal phalanx, closed 08/28/2012 12/10/2020 Sebaceous cyst 05/15/2007 04/16/2012 Diverticulitis 12/10/2020 documented as of this encounter (statuses as of 04/09/2022) [facility] History of Past illness Narrative* Problem Noted Date Resolved Date Fracture of finger, middle or proximal phalanx, closed 08/28/2012 12/10/2020 Sebaceous cyst 05/15/2007 04/16/2012 Diverticulitis 12/10/2020 documented as of this encounter (statuses as of 04/11/2022) [facility] History of Past illness Narrative* Problem Noted Date Resolved Date Fracture of finger, middle or proximal phalanx, closed 08/28/2012 12/10/2020 Sebaceous cyst 05/15/2007 04/16/2012 Diverticulitis 12/10/2020 documented as of this encounter (statuses as of 05/10/2022) [facility] History of Past illness Narrative* Problem Noted Date Resolved Date Fracture of finger, middle or proximal phalanx, closed 08/28/2012 12/10/2020 Sebaceous cyst 05/15/2007 04/16/2012 Diverticulitis 12/10/2020 documented as of this encounter (statuses as of 05/16/2022) [facility] History of Past illness Narrative* Problem Noted Date Resolved Date Fracture of finger, middle or proximal phalanx, closed 08/28/2012 12/10/2020 Sebaceous cyst 05/15/2007 04/16/2012 Diverticulitis 12/10/2020 documented as of this encounter (statuses as of 05/23/2022) [facility] History of Past illness Narrative* Problem Noted Date Resolved Date Fracture of finger, middle or proximal phalanx, closed 08/28/2012 12/10/2020 Sebaceous cyst 05/15/2007 04/16/2012 Diverticulitis 12/10/2020 documented as of this encounter (statuses as of 05/26/2022) [facility] History of Past illness Narrative* Problem Noted Date Resolved Date Fracture of finger, middle or proximal phalanx, closed 08/28/2012 12/10/2020 Sebaceous cyst 05/15/2007 04/16/2012 Diverticulitis 12/10/2020 documented as of this encounter (statuses as of 06/08/2022) [facility] History of Past illness Narrative* Problem Noted Date Resolved Date Fracture of finger, middle or proximal phalanx, closed 08/28/2012 12/10/2020 Sebaceous cyst 05/15/2007 04/16/2012 Diverticulitis 12/10/2020 documented as of this encounter (statuses as of 07/25/2022) [facility] History of Past illness Narrative* Problem Noted Date Resolved Date Fracture of finger, middle or proximal phalanx, closed 08/28/2012 12/10/2020 Sebaceous cyst 05/15/2007 04/16/2012 Diverticulitis 12/10/2020 documented as of this encounter (statuses as of 07/31/2022) [facility] History of Past illness Narrative* Problem Noted Date Resolved Date Fracture of finger, middle or proximal phalanx, closed 08/28/2012 12/10/2020 Sebaceous cyst 05/15/2007 04/16/2012 Diverticulitis 12/10/2020 documented as of this encounter (statuses as of 08/10/2022) [facility] History of Past illness Narrative* Problem Noted Date Diagnosed Date Resolved Date Fracture of finger, middle o r proximal phalanx, closed 08/28/2012 12/10/2020 Sebaceous cyst 05/15/2007 04/16/2012 Diverticulitis 12/10/2020 documented as of this encounter (statuses as of 09/07/2022) [facility] History of Past illness Narrative* Problem Noted Date Diagnosed Date Resolved Date Fracture of finger, middle o r proximal phalanx, closed 08/28/2012 12/10/2020 Sebaceous cyst 05/15/2007 04/16/2012 Diverticulitis 12/10/2020 documented as of this encounter (statuses as of 11/16/2022) [facility] History of Past illness Narrative* Problem Noted Date Diagnosed Date Resolved Date Fracture of finger, middle o r proximal phalanx, closed 08/28/2012 12/10/2020 Sebaceous cyst 05/15/2007 04/16/2012 Diverticulitis 12/10/2020 documented as of this encounter (statuses as of 11/17/2022) [facility] History of Past illness Narrative* Problem Noted Date Diagnosed Date Resolved Date Fracture of finger, middle o r proximal phalanx, closed 08/28/2012 12/10/2020 Sebaceous cyst 05/15/2007 04/16/2012 Diverticulitis 12/10/2020 documented as of this encounter (statuses as of 11/25/2022) [facility] Mild persistent asthma with acute exacerbation Unspecified asthma, with exacerbation [facility] Diagnosis Generalized weakness- Primary Other malaise and fatigue Primary osteoarthritis of right knee Primary localized osteoarthrosis, lower leg Hyperglycemia Other abnormal glucose Abdominal wall hematoma, sequela Bee sting allergy Allergy to insects and arachnids Hyperlipidemia, mixed Mixed hyperlipidemia Atrial fibrillation with rapid ventricular response (HCC) Atrial fibrillation Essential hypertension Unspecified essential hypertension Gastroesophageal reflux disease, unspecified whether esophagitis present Screening for lipid disorders [facility] [place] [facility] Diagnosis Swelling of gland of right eyelid- Primary [facility] [place] [facility] Diagnosis Abdominal wall hematoma, sequela- Primary Adhesive capsulitis of left shoulder Adhesive capsulitis of shoulder AF (paroxysmal atrial fibrillation) (HCC) Atrial fibrillation Need for COVID-19 vaccine documented in this encounter [facility] note* Diagnosis Encounter for screening mammogram for breast cancer [facility] [place] [facility]* Diagnosis Mild persistent asthma with acute exacerbation Unspecified asthma, with exacerbation documented in this encounter [facility] note* Diagnosis Pain in right lower leg- Primary Fall, initial encounter [facility] this [facility] [place] [facility]* Diagnosis Pain in right lower leg documented in this encounter [facility] note* Diagnosis Medication management Encounter for long-term (current) use of other medications [facility] [place] [facility] Diagnosis Asthma- Primary Unspecified asthma Need for shingles vaccine Need for prophylactic vaccination and inoculation against other viral diseases Encounter for immunization Need for other specified prophylactic vaccination against single bacterial disease Obstruction of right tear duct Financial difficulties Inadequate material resources TIA (transient ischemic attack) Unspecified transient cerebral ischemia Hyperlipidemia, mixed Mixed hyperlipidemia Atrial fibrillation with rapid ventricular response (HCC) Atrial fibrillation Essential hypertension Unspecified essential hypertension Gastroesophageal reflux disease, unspecified whether esophagitis present Mild persistent asthma with acute exacerbation Unspecified asthma, with exacerbation Mild intermittent asthma without complication Unspecified asthma Mild asthma without complication, unspecified whether persistent [facility] [place] [facility]* Diagnosis TIA (transient ischemic attack) Unspecified transient cerebral ischemia Hyperlipidemia, mixed Mixed hyperlipidemia Atrial fibrillation with rapid ventricular response (HCC) Atrial fibrillation Essential hypertension Unspecified essential hypertension documented in this encounter [facility] note* Diagnosis Sacroiliitis (HCC)- Primary Sacroiliitis, not elsewhere classified Foot pain, left Pain in limb documented in this encounter [facility] note* Diagnosis Sacroiliitis (HCC)- Primary Sacroiliitis, not elsewhere classified Chronic bilateral low back pain with bilateral sciatica [facility] [place] [facility] Diagnosis Sacroiliitis (HCC)- Primary Sacroiliitis, not elsewhere classified [facility] [place] [facility]* Diagnosis 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 Epiphora due to insufficient drainage Nldo, acquired (nasolacrimal duct obstruction), bilateral [facility] this [facility] [place] [facility]* Diagnosis Sacroiliitis (HCC)- Primary Sacroiliitis, not elsewhere classified [facility] [place] [facility] Diagnosis Sacroiliitis (HCC)- Primary Sacroiliitis, not elsewhere classified [facility] [place] [facility] Diagnosis Essential hypertension- Primary Unspecified essential hypertension Hyperlipidemia, mixed Mixed hyperlipidemia Environmental allergies Other allergy, other than to medicinal agents Mild persistent asthma with acute exacerbation Unspecified asthma, with exacerbation Need for second booster dose of COVID-19 vaccine Chronic bilateral low back pain with bilateral sciatica Sacroiliitis (HCC) Sacroiliitis, not elsewhere classified [facility] [place] [facility]* Diagnosis Encounter for screening mammogram for breast cancer documented [facility] [place] [facility] Diagnosis Lumbar radiculopathy- Primary Thoracic or lumbosacral neuritis or radiculitis, unspecified Sacroiliitis (HCC) Sacroiliitis, not elsewhere classified Left foot drop Other acquired deformity of ankle and foot [facility] [place] [facility]* Diagnosis Swelling of gland of right eyelid- Primary [facility] [place] [facility]* Diagnosis Pain- Primary Generalized pain [facility] this [facility] [place] [facility]* Diagnosis URI, acute- Primary Acute upper respiratory infections of unspecified site Acute cough History of asthma Personal history of other diseases of respiratory system documented [facility] [place] [facility] Diagnosis Infection of right eye- Primary [facility] [place] [facility] Diagnosis Asthma- Primary Unspecified asthma Need for shingles vaccine Need for prophylactic vaccination and inoculation against other viral diseases Encounter for immunization Need for other specified prophylactic vaccination against single bacterial disease Essential hypertension Unspecified essential hypertension Irritable bowel syndrome without diarrhea Irritable bowel syndrome Gastroesophageal reflux disease, unspecified whether esophagitis present Hyperlipidemia, mixed Mixed hyperlipidemia Elevated glucose Other abnormal glucose Chronic left shoulder pain Pain in joint, shoulder region documented [facility] this [facility] [place] [facility]* Diagnosis Right wrist pain- Primary Pain in joint, forearm Primary osteoarthritis of first carpometacarpal joint of right hand Primary localized osteoarthrosis, hand documented in this encounter [facility] note* Diagnosis Bronchitis- Primary Bronchitis, not specified as acute or chronic [facility] [place] [facility]* Diagnosis Moderate persistent asthma with acute exacerbation- Primary Atrial fibrillation with rapid ventricular response (HCC) Atrial fibrillation Diarrhea, unspecified type documented in this encounter [facility] note* Diagnosis Atrial fibrillation with RVR (HCC)- Primary Atrial fibrillation Atrial fibrillation with rapid ventricular response (HCC) Atrial fibrillation TIA (transient ischemic attack) Unspecified transient cerebral ischemia documented in this encounter [facility] note* Diagnosis RSV (respiratory syncytial virus infection)- Primary Respiratory syncytial virus (RSV) Atrial fibrillation with rapid ventricular response (HCC) Atrial fibrillation Mild persistent asthma without complication Unspecified asthma documented in this encounter [facility] note* Diagnosis Mitral valve insufficiency, unspecified etiology [facility] [place] [facility] Diagnosis Essential hypertension Unspecified essential hypertension Atrial fibrillation with RVR (HCC) Atrial fibrillation [facility] [place] [facility]* Diagnosis Ischemic colitis (HCC)- Primary Unspecified vascular insufficiency of intestine Mild persistent asthma with acute exacerbation Unspecified asthma, with exacerbation Essential hypertension Unspecified essential hypertension Paroxysmal atrial fibrillation (HCC) Atrial fibrillation Bilateral lower extremity edema Edema Hypokalemia Hypopotassemia Anemia, unspecified type [facility] [place] [facility]* Diagnosis Encounter for screening mammogram for breast cancer documented [facility] this [facility] [place] [facility] Diagnosis Acute UTI- Primary Urinary tract infection, site not specified Burning with urination Dysuria documented in this encounter [facility] note* Diagnosis Mild persistent asthma without complication- Primary Unspecified asthma Allergic rhinitis, unspecified seasonality, unspecified trigger Essential hypertension Unspecified essential hypertension Paroxysmal atrial fibrillation (HCC) Atrial fibrillation Bee sting allergy Allergy to insects and arachnids documented in this encounter [facility] note* Diagnosis Gastroesophageal reflux disease Esophageal reflux TIA (transient ischemic attack) Unspecified transient cerebral ischemia Hyperlipidemia, mixed Mixed hyperlipidemia Essential hypertension Unspecified essential hypertension Atrial fibrillation with rapid ventricular response (HCC) Atrial fibrillation Bee sting allergy Allergy to insects and arachnids documented [facility] this [facility] [place] [facility]* Diagnosis Acute asthmatic bronchitis- Primary Unspecified asthma, with exacerbation Mild persistent asthma with acute exacerbation Unspecified asthma, with exacerbation documented in this encounter [facility] note* Diagnosis Pre-operative examination- Primary Preoperative examination, unspecified LLQ pain Abdominal pain, left lower quadrant Diverticulitis Diverticulitis of colon (without mention of hemorrhage) Migraine with aura and without status migrainosus, not intractable Migraine with aura, without mention of intractable migraine without mention of status migrainosus Essential hypertension Unspecified essential hypertension Hyperlipidemia, mixed Mixed hyperlipidemia Mild persistent asthma without complication Unspecified asthma Gastroesophageal reflux disease, esophagitis presence not specified Calculus of kidney Bilateral low back pain with bilateral sciatica, unspecified chronicity Bronchitis Bronchitis, not specified as acute or chronic documented in this encounter [facility] note* Diagnosis Pre-operative examination- Primary Preoperative examination, unspecified LLQ pain Abdominal pain, left lower quadrant Diverticulitis Diverticulitis of colon (without mention of hemorrhage) Migraine with aura and without status migrainosus, not intractable Migraine with aura, without mention of intractable migraine without mention of status migrainosus Essential hypertension Unspecified essential hypertension Hyperlipidemia, mixed Mixed hyperlipidemia Mild persistent asthma without complication Unspecified asthma Gastroesophageal reflux disease, esophagitis presence not specified Calculus of kidney Bilateral low back pain with bilateral sciatica, unspecified chronicity Lumbar radiculopathy Thoracic or lumbosacral neuritis or radiculitis, unspecified Sacroiliitis (HCC) Sacroiliitis, not elsewhere classified documented in this encounter [facility] note* Diagnosis Pre-operative examination- Primary Preoperative examination, unspecified LLQ pain Abdominal pain, left lower quadrant Diverticulitis Diverticulitis of colon (without mention of hemorrhage) Migraine with aura and without status migrainosus, not intractable Migraine with aura, without mention of intractable migraine without mention of status migrainosus Essential hypertension Unspecified essential hypertension Hyperlipidemia, mixed Mixed hyperlipidemia Mild persistent asthma without complication Unspecified asthma Gastroesophageal reflux disease, esophagitis presence not specified Calculus of kidney Bilateral low back pain with bilateral sciatica, unspecified chronicity Pain in right lower leg documented in this encounter [facility] for referral (narrative)* Diagnostic Procedure Only (Routine) - Pending Review Specialty Diagnoses / Procedures Referred By Luis Alberto leal Referred To Contact [facility] IM[facility] Diagnoses Encounter for screening mammogram for breast cancer Procedures KENNY SCREENING SCREENING MAMMOGRAPHY BI 2-VIEW BREAST INC CAD Erik Reynolds MD [address] [place] [address] [place] [address] [facility] [address] [place] [address] Referral ID Status Reason Start Date Expiration Date Visits Requested Visits Authorized [id number] Pending Review Auto-Generat ed Referral 08/24/2021 09/23/2022 1 1 [facility] for referral (narrative)* Diagnostic Procedure Only (Urgent) - Authorized Specialty Diagnoses / Procedures Referred By Contac t Referred To Contact US IMAGING Diagnoses Pain in right lower leg Procedures US DVT LOWER RT DUP-SCAN XTR VEINS UNILATERAL/LIMITED STUDY Kristine Augustin APRN.[employer] [address] [place] [address] Us Imaging Referral ID Status Reason Start Date Expiration Date Visits Requested Visits Authorized [id number] Authorized Auto-Generat ed Referral 10/11/2021 11/10/2022 1 1 * Diagnostic Procedure Only (Urgent) - Closed Specialty Diagnoses / Procedures Referred By Contac t Referred To Contact XR IMAGING Diagnoses Pain in right lower leg Procedures XR TIBIA FIBULA 2V AP/LAT RIGHT RADIOLOGIC EXAMINATION TIBIA & FIBULA 2 VIEWS Kristine Augustin APRN.[employer] [address] [place] [address] Xr Imaging Referral ID Status Reason Start Date Expiration Date V isits Requested Visits Authorized [id number] Closed Auto-Generate d Referral 10/11/2021 11/10/2022 1 1 [facility] for referral (narrative)* Diagnostic Procedure Only (Urgent) - Closed Specialty Diagnoses / Procedures Referred By Contac t Referred To Contact US IMAGING Diagnoses Pain in right lower leg Procedures US DVT LOWER RT DUP-SCAN XTR VEINS UNILATERAL/LIMITED STUDY Kristine Augustin APRN.[employer] [address] [place] [address] Us Imaging Referral ID Status Reason Start Date Expiration Date V isits Requested Visits Authorized [id number] Closed Auto-Generate d Referral 10/11/2021 11/10/2022 1 1 [facility] for referral (narrative)* Diagnostic Procedure Only (Routine) - Pending Review Specialty Diagnoses / Procedures Referred By Contac t Referred To Contact [facility] IM[facility] Diagnoses Encounter for screening mammogram for breast cancer Procedures KENNY SCREENING SCREENING MAMMOGRAPHY BI 2-VIEW BREAST INC CAD Fatemeh Rogers MD [address] [place] [address] [facility] [address] [place] [address] Referral ID Status Reason Start Date Expiration Date Visits Requested Visits Authorized [id number] Pending Review Auto-Generat ed Referral 07/26/2022 08/25/2023 1 1 [facility] for referral (narrative)* Diagnostic Procedure Only (Routine) - Pending Review Specialty Diagnoses / Procedures Referred By Contac t Referred To Contact XR IMAGING Diagnoses Lumbar radiculopathy Sacroiliitis (HCC) Procedures XR LUMBAR MOTION 4V AP/LAT/ FLEX/EXT RADEX SPINE LUMBOSACRAL MINIMUM 4 VIEWS Francesca Peñaloza PA-C [address] [place] [address] Xr Imaging Referral ID Status Reason Start Date Expiration Date Visits Requested Visits Authorized [id number] Pending Review Auto-Generat ed Referral 08/10/2022 09/09/2023 1 1 [facility] for referral (narrative)* Diagnostic Procedure Only (Routine) - Authorized Specialty Diagnoses / Procedures Referred By Contac t Referred To Contact XR IMAGING Diagnoses Pain Procedures XR WRIST GENERAL 3V PA/LAT/OBL RIGHT RADEX WRIST COMPLETE MINIMUM 3 VIEWS Dwight Encarnacion MD [address] [place] [address] [place] [id number] Referral ID Status Reason Start Date Expiration Date Visits Requested Visits Authorized [id number] Authorized Auto-Generat ed Referral 11/15/2022 12/15/2023 1 1 [facility] for referral (narrative)* Outpatient Procedure (Routine) - Authorized Specialty Diagnoses / Procedures Referred By Contac t Referred To Contact [facility] Diagnoses Asthma Procedures SPIROMETRY - BASELINE AND POST DILATOR BRNCDILAT RSPSE SPMTRY PRE&POST-BRNCDILAT ADMFaith Machado APRN.CNS [address] [place] [address] [facility] [address] [place] [address] Referral ID Status Reason Start Date Expiration Date Visits Requested Visits Authorized [id number] Authorized Auto-Generat ed Referral 01/01/2023 01/31/2024 1 1 [facility] for referral (narrative)* Diagnostic Procedure Only (Routine) - Pending Review Specialty Diagnoses / Procedures Referred By Contac t Referred To Contact [facility] Diagnoses Encounter for screening mammogram for breast cancer Procedures KENNY SCREENING SCREENING MAMMOGRAPHY BI 2-VIEW BREAST INC CAD Fatemeh Rogers MD [address] [place] [address] [facility] [address] [place] [id number] Referral ID Status Reason Start Date Expiration Date Visits Requested Visits Authorized [id number] Pending Review Auto-Generat ed Referral 07/04/2023 08/02/2024 1 1 [facility] for referral (narrative)* Diagnostic Procedure Only (Routine) - Closed Specialty Diagnoses / Procedures Referred By Contac t Referred To Contact XR IMAGING Diagnoses Lumbar radiculopathy Sacroiliitis (HCC) Procedures XR LUMBAR MOTION 4V AP/LAT/ FLEX/EXT RADEX SPINE LUMBOSACRAL MINIMUM 4 VIEWS Francesca Peñaloza PA-C [address] [place] [address] [place] [address] Referral ID Status Reason Start Date Expiration Date V isits Requested Visits Authorized [id number] Closed Auto-Generate d Referral 08/10/2022 09/09/2023 1 1 [facility] for referral (narrative)* Diagnostic Procedure Only (Urgent) - Closed Specialty Diagnoses / Procedures Referred By Contac t Referred To Contact XR IMAGING Diagnoses Pain in right lower leg Procedures XR TIBIA FIBULA 2V AP/LAT RIGHT RADIOLOGIC EXAMINATION TIBIA & FIBULA 2 VIEWS Kristine Augustin, DIRECTOR STAFFING.[employer] [address] [place] [address] [place] [id number] Referral ID Status Reason Start Date Expiration Date V isits Requested Visits Authorized [id number] Closed Auto-Generate d Referral 10/11/2021 11/10/2022 1 1 Electronically signed by Kristine Augustin DIRECTOR STAFFING.[employer] at 10/11/2021 11:07 AM EDT [facility] for visit Narrative* Outpatient Procedure (Routine) - Closed Specialty Diagnoses / Procedures Referred By Contac t Referred To Contact [facility] Diagnoses Mitral valve insufficiency, unspecified etiology Procedures ECHO ECHO TTHRC R-T 2D W/WOM-MODE COMPL SPEC&COLR D Faith Mullins, DIRECTOR STAFFING.MEDICAL PAYMENT POSTER [address] [place] [address] [facility] [address] [place] [address] Referral ID Status Reason Start Date Expiration Date V isits Requested Visits Authorized [id number] Closed Auto-Generate d Referral 03/12/2023 03/11/2024 1 1 [facility] for visit Narrative* Diagnostic Procedure Only (Routine) - Closed Specialty Diagnoses / Procedures Referred By Contac t Referred To Contact XR IMAGING Diagnoses Lumbar radiculopathy Sacroiliitis (HCC) Procedures XR LUMBAR MOTION 4V AP/LAT/ FLEX/EXT RADEX SPINE LUMBOSACRAL MINIMUM 4 VIEWS Francesca Peñaloza PA-C [address] [place] [address] [place] [address] Referral ID Status Reason Start Date Expiration Date V isits Requested Visits Authorized [id number] Closed Auto-Generate d Referral 08/10/2022 09/09/2023 1 1 [facility] Diagnostic Procedure Only (Urgent) - Closed Specialty Diagnoses / Procedures Referred By Contac t Referred To Contact XR IMAGING Diagnoses Pain in right lower leg Procedures XR TIBIA FIBULA 2V AP/LAT RIGHT RADIOLOGIC EXAMINATION TIBIA & FIBULA 2 VIEWS Kristine Augustin, DIRECTOR STAFFING.[employer] [address] [place] [address] [place] [address] Referral ID Status Reason Start Date Expiration Date V isits Requested Visits Authorized [id number] Closed Auto-Generate d Referral 10/11/2021 11/10/2022 1 1 [facility] Summary Purpose Family History No Family History Records FoundNo Family History Records FoundNo Family History Records FoundNo Family History Records FoundNo Family History Records Found Advance Directives Documents on File Type Date Recorded Patient Private Pilot Expl anation Advance Directive(s) 07/29/2018 12:42 PM Advance Directive(s) 07/28/2018 11:45 PM Advance Directive(s) 05/29/2018 9:34 AM Advance Directive(s) 05/08/2018 12:01 PM Advance Directive(s) 05/08/2018 12:06 PM Documents on File Type Date Recorded Patient Private Pilot Expl anation Advance Directive(s) 07/29/2018 12:42 PM Advance Directive(s) 07/28/2018 11:45 PM Advance Directive(s) 05/29/2018 9:34 AM Advance Directive(s) 05/08/2018 12:01 PM Advance Directive(s) 05/08/2018 12:06 PM Hospital Course Note HNO ID: [id number] Author: Asuncion Lozano) Gabriella Service: General Internal Medicine Author Type: Physician Type: Discharge Summary Filed: 07/31/2018 6:03 PM Note Text: DISCHARGE SUMMARY PATIENT NAME: Romain Bailey ADMISSION DATE: 07/29/2018 DISCHARGE DATE: 07/30/2018 ATTENDING PHYSICIAN: Ryan Quiroz Code Status: Not on file Highest Readmission Risk Score: 10 The 30 day readmissions risk score is derived from an internally validated risk model which evaluates patient level characteristics, utilization history, medication orders and lab results up until the day of discharge. Patients with a score of 40 or above are considered highest risk for readmission. Specific patient level drivers will be listed at the bottom of the summary. REASON FOR HOSPITALIZATION: Headache, dysarthria, truncal ataxia DIAGNOSIS: Active Problems: Essential hypertension Migraine TIA (transient ischemic attack) Resolved Problems: * No resolved hospital problems. * Ruled Out OPERATIONS DURING HOSPIT (more content not included)... Reason for Referral Specialty Diagnoses / Procedures Referred By Contac t Referred To Contact Ophthalmology Diagnoses Obstruction of right tear duct Procedures CONSULT TO OPHTHALMOLOGY OFFICE/OUTPATIENT [facility] 60-74 MINUTES MullinsFaith castillo, DIRECTOR STAFFING.MEDICAL PAYMENT POSTER [address] [place] [address] Referral ID Status Reason Start Date Expiration Date Visits Requested Visits Authorized [id number] Pending Review PCP Requested Referral 2 12/22/2022 1 1 Specialty Diagnoses / Procedures Referred By Contac t Referred To Contact [facility] Diagnoses Asthma Procedures SPIROMETRY - BASELINE AND POST DILATOR BRNCDILAT RSPSE SPMTRY PRE&POST-BRNCDILAT ADMN MullinsFaith castillo, DIRECTOR STAFFING.[facility] [address] [place] [address] [facility] [address] [place] [address] Referral ID Status Reason Start Date Expiration Date Visits Requested Visits Authorized [id number] Pending Review Auto-Generat ed Referral 2 01/21/2023 1 1 Specialty Diagnoses / Procedures Referred By Contac t Referred To Contact [facility] Diagnoses Sacroiliitis (HCC) Procedures CONSULT TO [facility] OFFICE/OUTPATIENT [facility] 60-74 MINUTES MullinsFaith castillo, DIRECTOR STAFFING.MEDICAL PAYMENT POSTER [address] [place] [address] Referral ID Status Reason Start Date Expiration Date Visits Requested Visits Authorized [id number] Pending Review PCP Requested Referral 2 01/10/2023 1 1 Specialty Diagnoses / Procedures Referred By Contac t Referred To Contact [facility] Diagnoses Sacroiliitis (HCC) Procedures CONSULT TO PHYSICAL THERAPY PHYSICAL THERAPY EVALUATION HIGH COMPLEX 45 MINS Faith Mullins, ANNALISA.MEDICAL PAYMENT POSTER [address] [place] [address] [facility] [address] [address] Referral ID Status Reason Start Date Expiration Date Visits Requested Visits Authorized [id number] Pending Review Auto-Generat ed Referral 2 01/10/2023 1 1 Specialty Diagnoses / Procedures Referred By Contac t Referred To Contact [facility] Diagnoses Sacroiliitis (HCC) Procedures PT REHAB FOLLOW UP ORDER THERAPEUTIC EXERCISES RE, EA 15 MIN. Kristine Simmons, PT [facility] [address] [address] Referral ID Status Reason Start Date Expiration Date Visits Requested Visits Authorized [id number] Pending Review PCP Requested Referral Auto-Generate d Referral 05/10/2022 08/08/2022 1 1 Medications Administered Section Inactive Administered Medications - up to 3 most recent administrations Medication Order MAR Action Action Date Dose Rate Site keTORolac 60 mg injection (TORADOL) 60 mg, INTRAMUSCULAR, ONCE, 1 dose, On Sun04/11/22 at 1100, Ketorolac (Toradol) is indicated for the short-term (up to 5 days) management of moderately severe acute pain. Continuation of ketorolac (Toradol) beyond 5 days increases the risk of developing serious adverse events. Please verify the duration of therapy for ketorolac (Toradol)., If ordered PRN for pain, patient/guardian may elect to receive this medication for higher pain levels INSTEAD of the opioid, if preferred: Yes Given 04/11/2022 11:07 AM EST 60 mg Buttocks, Left Active Administered Medications - up to 3 most recent administrations Medication Order MAR Action Action Date Dose Rate Site fluorescein-benoxinate 0.25-0.4 % 1 Drop (FLURESS) 1 Drop, BOTH EYES, DIRECTED, Starting on Sun05/16/22 at 1030, Until Sun05/16/22 at 2229, Administer for applanation tonometry. In the event of a Fluress shortage, administer Cassandra-Fluor 1 drop into both eyes as directed for applanation tonometry Given 05/16/2022 10:30 AM EDT 1 Drop Inactive Administered Medications - up to 3 most recent administrations Medication Order MAR Action Action Date Dose Rate Site ipratropium-albuterol 3 mL nebulizer solution (DUONEB) 3 mL, INHALATION, ONCE, 1 dose, On 02/10/23 at 0930, PROTECT FROM LIGHT. The unit-dose vial should remain stored in the protective foil pouch until time of use. Given 02/10/2023 9:32 AM EST 3 mL Additional Source Comments INFORMATION SOURCE (unrecogn ized section and content) DATE CREATED AUTHOR 08/21/2017 [facility] DATE CREATED AUTHOR AUTHOR'S ORGANIZ ATION 08/04/2018 [facility] DATE CREATED AUTHOR AUTHOR'S ORGANIZ ATION 08/08/2018 [facility] DATE CREATED AUTHOR AUTHOR'S ORGANIZ ATION 03/01/2023 [facility] ([place]) DATE CREATED AUTHOR AUTHOR'S ORGANIZ ATION 08/31/2023 [facility] Source Comments (unrecognize d section and content) In the event this informatio n is protected by the Federal Confidentiality of Alcohol and Drug Abuse Patient Records regulations: The Federal rules restrict any use of the information to criminally investigate or prosecute any alcohol or drug abuse patient.[facility] the event this information is protected by the Federal Confidentiality of Alcohol and Drug Abuse Patient Records regulations: The Federal rules restrict any use of the information to criminally investigate or prosecute any alcohol or drug abuse patient.[facility] the event this information is protected by the Federal Confidentiality of Alcohol and Drug Abuse Patient Records regulations: The Federal rules restrict any use of the information to criminally investigate or prosecute any alcohol or drug abuse patient.[facility] the event this information is protected by the Federal Confidentiality of Alcohol and Drug Abuse Patient Records regulations: The Federal rules restrict any use of the information to criminally investigate or prosecute any alcohol or drug abuse patient.[facility] Center[facility] the event this information is protected by the Federal Confidentiality of Alcohol and Drug Abuse Patient Records regulations: The Federal rules restrict any use of the information to criminally investigate or prosecute any alcohol or drug abuse patient.[facility] Center[facility] the event this information is protected by the Federal Confidentiality of Alcohol and Drug Abuse Patient Records regulations: The Federal rules restrict any use of the information to criminally investigate or prosecute any alcohol or drug abuse patient.[facility] Center[facility] the event this information is protected by the Federal Confidentiality of Alcohol and Drug Abuse Patient Records regulations: The Federal rules restrict any use of the information to criminally investigate or prosecute any alcohol or drug abuse patient.[facility] Center[facility] the event this information is protected by the Federal Confidentiality of Alcohol and Drug Abuse Patient Records regulations: The Federal rules restrict any use of the information to criminally investigate or prosecute any alcohol or drug abuse patient.[facility] Center[facility] the event this information is protected by the Federal Confidentiality of Alcohol and Drug Abuse Patient Records regulations: The Federal rules restrict any use of the information to criminally investigate or prosecute any alcohol or drug abuse patient.[facility] Center[facility] the event this information is protected by the Federal Confidentiality of Alcohol and Drug Abuse Patient Records regulations: The Federal rules restrict any use of the information to criminally investigate or prosecute any alcohol or drug abuse patient.[facility] Center[facility] the event this information is protected by the Federal Confidentiality of Alcohol and Drug Abuse Patient Records regulations: The Federal rules restrict any use of the information to criminally investigate or prosecute any alcohol or drug abuse patient.[facility] Center[facility] the event this information is protected by the Federal Confidentiality of Alcohol and Drug Abuse Patient Records regulations: The Federal rules restrict any use of the information to criminally investigate or prosecute any alcohol or drug abuse patient.[facility] Center[facility] the event this information is protected by the Federal Confidentiality of Alcohol and Drug Abuse Patient Records regulations: The Federal rules restrict any use of the information to criminally investigate or prosecute any alcohol or drug abuse patient.[facility] CenterIn the event this information is protected by the Federal Confidentiality of Alcohol and Drug Abuse Patient Records regulations: The Federal rules restrict any use of the information to criminally investigate or prosecute any alcohol or drug abuse patient.[facility] CenterIn the event this information is protected by the Federal Confidentiality of Alcohol and Drug Abuse Patient Records regulations: The Federal rules restrict any use of the information to criminally investigate or prosecute any alcohol or drug abuse patient.[facility] CenterIn the event this information is protected by the Federal Confidentiality of Alcohol and Drug Abuse Patient Records regulations: The Federal rules restrict any use of the information to criminally investigate or prosecute any alcohol or drug abuse patient.[facility] CenterIn the event this information is protected by the Federal Confidentiality of Alcohol and Drug Abuse Patient Records regulations: The Federal rules restrict any use of the information to criminally investigate or prosecute any alcohol or drug abuse patient.[facility] CenterIn the event this information is protected by the Federal Confidentiality of Alcohol and Drug Abuse Patient Records regulations: The Federal rules restrict any use of the information to criminally investigate or prosecute any alcohol or drug abuse patient.[facility] CenterIn the event this information is protected by the Federal Confidentiality of Alcohol and Drug Abuse Patient Records regulations: The Federal rules restrict any use of the information to criminally investigate or prosecute any alcohol or drug abuse patient.[facility] CenterIn the event this information is protected by the Federal Confidentiality of Alcohol and Drug Abuse Patient Records regulations: The Federal rules restrict any use of the information to criminally investigate or prosecute any alcohol or drug abuse patient.[facility] CenterIn the event this information is protected by the Federal Confidentiality of Alcohol and Drug Abuse Patient Records regulations: The Federal rules restrict any use of the information to criminally investigate or prosecute any alcohol or drug abuse patient.[facility] CenterIn the event this information is protected by the Federal Confidentiality of Alcohol and Drug Abuse Patient Records regulations: The Federal rules restrict any use of the information to criminally investigate or prosecute any alcohol or drug abuse patient.[facility] CenterIn the event this information is protected by the Federal Confidentiality of Alcohol and Drug Abuse Patient Records regulations: The Federal rules restrict any use of the information to criminally investigate or prosecute any alcohol or drug abuse patient.[facility] CenterIn the event this information is protected by the Federal Confidentiality of Alcohol and Drug Abuse Patient Records regulations: The Federal rules restrict any use of the information to criminally investigate or prosecute any alcohol or drug abuse patient.[facility] CenterIn the event this information is protected by the Federal Confidentiality of Alcohol and Drug Abuse Patient Records regulations: The Federal rules restrict any use of the information to criminally investigate or prosecute any alcohol or drug abuse patient.[facility] CenterIn the event this information is protected by the Federal Confidentiality of Alcohol and Drug Abuse Patient Records regulations: The Federal rules restrict any use of the information to criminally investigate or prosecute any alcohol or drug abuse patient.[facility] CenterIn the event this information is protected by the Federal Confidentiality of Alcohol and Drug Abuse Patient Records regulations: The Federal rules restrict any use of the information to criminally investigate or prosecute any alcohol or drug abuse patient.[facility] CenterIn the event this information is protected by the Federal Confidentiality of Alcohol and Drug Abuse Patient Records regulations: The Federal rules restrict any use of the information to criminally investigate or prosecute any alcohol or drug abuse patient.[facility] CenterIn the event this information is protected by the Federal Confidentiality of Alcohol and Drug Abuse Patient Records regulations: The Federal rules restrict any use of the information to criminally investigate or prosecute any alcohol or drug abuse patient.[facility] CenterIn the event this information is protected by the Federal Confidentiality of Alcohol and Drug Abuse Patient Records regulations: The Federal rules restrict any use of the information to criminally investigate or prosecute any alcohol or drug abuse patient.[facility] CenterIn the event this information is protected by the Federal Confidentiality of Alcohol and Drug Abuse Patient Records regulations: The Federal rules restrict any use of the information to criminally investigate or prosecute any alcohol or drug abuse patient.[facility] CenterIn the event this information is protected by the Federal Confidentiality of Alcohol and Drug Abuse Patient Records regulations: The Federal rules restrict any use of the information to criminally investigate or prosecute any alcohol or drug abuse patient.[facility] CenterIn the event this information is protected by the Federal Confidentiality of Alcohol and Drug Abuse Patient Records regulations: The Federal rules restrict any use of the information to criminally investigate or prosecute any alcohol or drug abuse patient.[facility] CenterIn the event this information is protected by the Federal Confidentiality of Alcohol and Drug Abuse Patient Records regulations: The Federal rules restrict any use of the information to criminally investigate or prosecute any alcohol or drug abuse patient.[facility] CenterIn the event this information is protected by the Federal Confidentiality of Alcohol and Drug Abuse Patient Records regulations: The Federal rules restrict any use of the information to criminally investigate or prosecute any alcohol or drug abuse patient.[facility] CenterIn the event this information is protected by the Federal Confidentiality of Alcohol and Drug Abuse Patient Records regulations: The Federal rules restrict any use of the information to criminally investigate or prosecute any alcohol or drug abuse patient.[facility] CenterIn the event this information is protected by the Federal Confidentiality of Alcohol and Drug Abuse Patient Records regulations: The Federal rules restrict any use of the information to criminally investigate or prosecute any alcohol or drug abuse patient.[facility] CenterIn the event this information is protected by the Federal Confidentiality of Alcohol and Drug Abuse Patient Records regulations: The Federal rules restrict any use of the information to criminally investigate or prosecute any alcohol or drug abuse patient.[facility] CenterIn the event this information is protected by the Federal Confidentiality of Alcohol and Drug Abuse Patient Records regulations: The Federal rules restrict any use of the information to criminally investigate or prosecute any alcohol or drug abuse patient.[facility] CenterIn the event this information is protected by the Federal Confidentiality of Alcohol and Drug Abuse Patient Records regulations: The Federal rules restrict any use of the information to criminally investigate or prosecute any alcohol or drug abuse patient.[facility] CenterIn the event this information is protected by the Federal Confidentiality of Alcohol and Drug Abuse Patient Records regulations: The Federal rules restrict any use of the information to criminally investigate or prosecute any alcohol or drug abuse patient.[facility] CenterIn the event this information is protected by the Federal Confidentiality of Alcohol and Drug Abuse Patient Records regulations: The Federal rules restrict any use of the information to criminally investigate or prosecute any alcohol or drug abuse patient.[facility] CenterIn the event this information is protected by the Federal Confidentiality of Alcohol and Drug Abuse Patient Records regulations: The Federal rules restrict any use of the information to criminally investigate or prosecute any alcohol or drug abuse patient.[facility] CenterIn the event this information is protected by the Federal Confidentiality of Alcohol and Drug Abuse Patient Records regulations: The Federal rules restrict any use of the information to criminally investigate or prosecute any alcohol or drug abuse patient.[facility] CenterIn the event this information is protected by the Federal Confidentiality of Alcohol and Drug Abuse Patient Records regulations: The Federal rules restrict any use of the information to criminally investigate or prosecute any alcohol or drug abuse patient.[facility] CenterIn the event this information is protected by the Federal Confidentiality of Alcohol and Drug Abuse Patient Records regulations: The Federal rules restrict any use of the information to criminally investigate or prosecute any alcohol or drug abuse patient.[facility] CenterIn the event this information is protected by the Federal Confidentiality of Alcohol and Drug Abuse Patient Records regulations: The Federal rules restrict any use of the information to criminally investigate or prosecute any alcohol or drug abuse patient.[facility] CenterIn the event this information is protected by the Federal Confidentiality of Alcohol and Drug Abuse Patient Records regulations: The Federal rules restrict any use of the information to criminally investigate or prosecute any alcohol or drug abuse patient.[facility] CenterIn the event this information is protected by the Federal Confidentiality of Alcohol and Drug Abuse Patient Records regulations: The Federal rules restrict any use of the information to criminally investigate or prosecute any alcohol or drug abuse patient.[facility] CenterIn the event this information is protected by the Federal Confidentiality of Alcohol and Drug Abuse Patient Records regulations: The Federal rules restrict any use of the information to criminally investigate or prosecute any alcohol or drug abuse patient.[facility] CenterIn the event this information is protected by the Federal Confidentiality of Alcohol and Drug Abuse Patient Records regulations: The Federal rules restrict any use of the information to criminally investigate or prosecute any alcohol or drug abuse patient.[facility] CenterIn the event this information is protected by the Federal Confidentiality of Alcohol and Drug Abuse Patient Records regulations: The Federal rules restrict any use of the information to criminally investigate or prosecute any alcohol or drug abuse patient.[facility] CenterIn the event this information is protected by the Federal Confidentiality of Alcohol and Drug Abuse Patient Records regulations: The Federal rules restrict any use of the information to criminally investigate or prosecute any alcohol or drug abuse patient.[facility] CenterIn the event this information is protected by the Federal Confidentiality of Alcohol and Drug Abuse Patient Records regulations: The Federal rules restrict any use of the information to criminally investigate or prosecute any alcohol or drug abuse patient.[facility] CenterIn the event this information is protected by the Federal Confidentiality of Alcohol and Drug Abuse Patient Records regulations: The Federal rules restrict any use of the information to criminally investigate or prosecute any alcohol or drug abuse patient.[facility] CenterIn the event this information is protected by the Federal Confidentiality of Alcohol and Drug Abuse Patient Records regulations: The Federal rules restrict any use of the information to criminally investigate or prosecute any alcohol or drug abuse patient.[facility]In the event this information is protected by the Federal Confidentiality of Alcohol and Drug Abuse Patient Records regulations: The Federal rules restrict any use of the information to criminally investigate or prosecute any alcohol or drug abuse patient.[facility] CenterIn the event this information is protected by the Federal Confidentiality of Alcohol and Drug Abuse Patient Records regulations: The Federal rules restrict any use of the information to criminally investigate or prosecute any alcohol or drug abuse patient.[facility] CenterIn the event this information is protected by the Federal Confidentiality of Alcohol and Drug Abuse Patient Records regulations: The Federal rules restrict any use of the information to criminally investigate or prosecute any alcohol or drug abuse patient.[facility] CenterIn the event this information is protected by the Federal Confidentiality of Alcohol and Drug Abuse Patient Records regulations: The Federal rules restrict any use of the information to criminally investigate or prosecute any alcohol or drug abuse patient.[facility] CenterIn the event this information is protected by the Federal Confidentiality of Alcohol and Drug Abuse Patient Records regulations: The Federal rules restrict any use of the information to criminally investigate or prosecute any alcohol or drug abuse patient.[facility] CenterIn the event this information is protected by the Federal Confidentiality of Alcohol and Drug Abuse Patient Records regulations: The Federal rules restrict any use of the information to criminally investigate or prosecute any alcohol or drug abuse patient.[facility]In the event this information is protected by the Federal Confidentiality of Alcohol and Drug Abuse Patient Records regulations: The Federal rules restrict any use of the information to criminally investigate or prosecute any alcohol or drug abuse patient.[facility] CenterIn the event this information is protected by the Federal Confidentiality of Alcohol and Drug Abuse Patient Records regulations: The Federal rules restrict any use of the information to criminally investigate or prosecute any alcohol or drug abuse patient.[facility]In the event this information is protected by the Federal Confidentiality of Alcohol and Drug Abuse Patient Records regulations: The Federal rules restrict any use of the information to criminally investigate or prosecute any alcohol or drug abuse patient.[facility]In the event this information is protected by the Federal Confidentiality of Alcohol and Drug Abuse Patient Records regulations: The Federal rules restrict any use of the information to criminally investigate or prosecute any alcohol or drug abuse patient.[facility] CenterIn the event this information is protected by the Federal Confidentiality of Alcohol and Drug Abuse Patient Records regulations: The Federal rules restrict any use of the information to criminally investigate or prosecute any alcohol or drug abuse patient.[facility] CenterIn the event this information is protected by the Federal Confidentiality of Alcohol and Drug Abuse Patient Records regulations: The Federal rules restrict any use of the information to criminally investigate or prosecute any alcohol or drug abuse patient.[facility] CenterIn the event this information is protected by the Federal Confidentiality of Alcohol and Drug Abuse Patient Records regulations: The Federal rules restrict any use of the information to criminally investigate or prosecute any alcohol or drug abuse patient.[facility] CenterIn the event this information is protected by the Federal Confidentiality of Alcohol and Drug Abuse Patient Records regulations: The Federal rules restrict any use of the information to criminally investigate or prosecute any alcohol or drug abuse patient.[facility] CenterIn the event this information is protected by the Federal Confidentiality of Alcohol and Drug Abuse Patient Records regulations: The Federal rules restrict any use of the information to criminally investigate or prosecute any alcohol or drug abuse patient.[facility] CenterIn the event this information is protected by the Federal Confidentiality of Alcohol and Drug Abuse Patient Records regulations: The Federal rules restrict any use of the information to criminally investigate or prosecute any alcohol or drug abuse patient.[facility] CenterIn the event this information is protected by the Federal Confidentiality of Alcohol and Drug Abuse Patient Records regulations: The Federal rules restrict any use of the information to criminally investigate or prosecute any alcohol or drug abuse patient.[facility] CenterIn the event this information is protected by the Federal Confidentiality of Alcohol and Drug Abuse Patient Records regulations: The Federal rules restrict any use of the information to criminally investigate or prosecute any alcohol or drug abuse patient.[facility]In the event this information is protected by the Federal Confidentiality of Alcohol and Drug Abuse Patient Records regulations: The Federal rules restrict any use of the information to criminally investigate or prosecute any alcohol or drug abuse patient.[facility]In the event this information is protected by the Federal Confidentiality of Alcohol and Drug Abuse Patient Records regulations: The Federal rules restrict any use of the information to criminally investigate or prosecute any alcohol or drug abuse patient.[facility]In the event this information is protected by the Federal Confidentiality of Alcohol and Drug Abuse Patient Records regulations: The Federal rules restrict any use of the information to criminally investigate or prosecute any alcohol or drug abuse patient.[facility] CenterIn the event this information is protected by the Federal Confidentiality of Alcohol and Drug Abuse Patient Records regulations: The Federal rules restrict any use of the information to criminally investigate or prosecute any alcohol or drug abuse patient.[facility]In the event this information is protected by the Federal Confidentiality of Alcohol and Drug Abuse Patient Records regulations: The Federal rules restrict any use of the information to criminally investigate or prosecute any alcohol or drug abuse patient.[facility] CenterIn the event this information is protected by the Federal Confidentiality of Alcohol and Drug Abuse Patient Records regulations: The Federal rules restrict any use of the information to criminally investigate or prosecute any alcohol or drug abuse patient.[facility] CenterIn the event this information is protected by the Federal Confidentiality of Alcohol and Drug Abuse Patient Records regulations: The Federal rules restrict any use of the information to criminally investigate or prosecute any alcohol or drug abuse patient.[facility] CenterIn the event this information is protected by the Federal Confidentiality of Alcohol and Drug Abuse Patient Records regulations: The Federal rules restrict any use of the information to criminally investigate or prosecute any alcohol or drug abuse patient.[facility] CenterIn the event this information is protected by the Federal Confidentiality of Alcohol and Drug Abuse Patient Records regulations: The Federal rules restrict any use of the information to criminally investigate or prosecute any alcohol or drug abuse patient.[facility] CenterIn the event this information is protected by the Federal Confidentiality of Alcohol and Drug Abuse Patient Records regulations: The Federal rules restrict any use of the information to criminally investigate or prosecute any alcohol or drug abuse patient.[facility] CenterIn the event this information is protected by the Federal Confidentiality of Alcohol and Drug Abuse Patient Records regulations: The Federal rules restrict any use of the information to criminally investigate or prosecute any alcohol or drug abuse patient.[facility] Reason for Visit (unrecogniz ed section and content) Reason Comments Refill Request Reason Onset Date Comments Population Health Navigation Outreach 06/07/2021 Care gap Reason Comments Arm Injury Reason Comments [facility] Reason Comments Received Outside Medical Records [facility] Emergnecy dept summary 06/10/2021 Reason Comments Received Outside Medical Records [facility] Emergency Dept Summary 06/19/2021 Reason Comments Received Outside Medical Records [facility] Discharge instructions 06/20/2021 Reason Comments Home Care Management Reason Comments Patient Request Reason Comments Received Outside Medical Records [facility] Discharge Summary 06/20/2021 Reason Comments Received Outside Medical Records Missed visit [facility] Home Health 06/24/2021 Reason Comments Received Outside Medical Records [facility] Home health certification and plan of care 06/21/2021 - 08/19/2021 Reason Comments Patient Update from [facility], pt does no t want OT at this time FYI Reason Comments Patient Update Reason Comments Orders request for sign off from PCP from [facility] home health services Reason Comments request for sign off on orders from [facility] home health Reason Comments Received Outside Medical Records [facility] Home health OT discharge 07/14/2021 Reason Comments Orders [facility] spital PT and [employer]IST evaluation 07/14/2021 Reason Comments order for PT reviewed and signed by PCP faxed to [facility] home health services Reason Comments Received Outside Medical Records dischar ge summary from [facility] home health Reason Comments Received Outside Medical Records [facility] Reason Comments Follow Up lift chair prescript ion Reason Comments Eye Problem Right Eye swollen, sore x2 d ays Reason Comments Hospital F/U Reason Onset Date Comments Refill Request 09/05/2021 Reason Comments Received Outside Medical Records [facility] car diovascular Reason Comments Received Outside Medical Records [facility] 09/15/2021 Emergency room summary Reason Comments Received Outside Medical Records [facility] CT Abdomen and Pelvid 09/15/2021 Reason Comments Pain Pt reported fall x1 wk prior (RT) calf pain rated 6, denied warmth, redness, c/o small lump, currently taking Eliquis Reason Comments Results Reason Comments Radiology US Specialty Diagnoses / Procedures Referred By Luis Alberto elal Referred To Contact US IMAGING Diagnoses Pain in right lower leg Procedures US DVT LOWER RT DUP-SCAN XTR VEINS UNILATERAL/LIMITED STUDY Kristine Augustin, DIRECTOR STAFFING.[employer]GG[employer] MOLDER [address] [place] [address] Us Imaging Referral ID Status Reason Start Date Expiration Date V isits Requested Visits Authorized [id number] Closed Auto-Generate d Referral 10/11/2021 11/10/2022 1 1 Reason Comments Results [facility] spital 11/18/2021 Reason Comments Received Outside Medical Records [facility] office summary 11/18/2021 Reason Comments Establish Care Reason Comments Social Work Services Reason Comments Hospital F/U Reason Onset Date Comments Population Health Navigation Outreach 01/24/2022 [employer] Reason Comments Letter Reason Onset Date Comments Population Health Navigation Outreach 03/29/2022 [employer] care gaps Reason Comments Back Pain Reason Comments PT Progress Note Specialty Diagnoses / Procedures Referred By Contac t Referred To Contact [facility] Diagnoses Sacroiliitis (HCC) Procedures PT REHAB FOLLOW UP ORDER THERAPEUTIC EXERCISES RE, EA 15 MIN. Faith Mullins, DIRECTOR STAFFING.MEDICAL PAYMENT POSTER [address] [place] [address] [facility] [address] [address] Referral ID Status Reason Start Date Expiration Date Visits Requested Visits Authorized [id number] Authorized PCP Requested Referral Auto-Generate d Referral 04/17/2022 07/17/2022 12 12 Reason Comments blocked tear duct Right Eye Reason Comments Appointment Rescheduled Reason Comments Physical Therapy Specialty Diagnoses / Procedures Referred By Contac t Referred To Contact [facility] Diagnoses Sacroiliitis (HCC) Procedures PT REHAB FOLLOW UP ORDER THERAPEUTIC EXERCISES RE, EA 15 MIN. Faith Mullins, DIRECTOR STAFFING.MEDICAL PAYMENT POSTER [address] [place] [address] [facility] [address] [address] Reason Comments Yearly Exam Reason Comments New Patient Low Back Pain Specialty Diagnoses / Procedures Referred By Contac t Referred To Contact [facility] Diagnoses Sacroiliitis (HCC) Procedures CONSULT TO [facility] OFFICE/OUTPATIENT NEW HIGH MDM 60-74 MINUTES Faith Mullins, DIRECTOR STAFFING.MEDICAL PAYMENT POSTER [address] [place] [address] Referral ID Status Reason Start Date Expiration Date Visits Requested Visits Authorized [id number] Pending Review PCP Requested Referral 2 01/10/2023 1 1 Reason Comments Eye Problem Red irritated right eye x 1 day Reason Comments Cough Congestion in nasal and chest, sneezing, low grade fever, scratchy throat, x 3 days Reason Comments hard bump under right eye X 1 day Reason Comments F/U Diabetes 6 Month Reason Comments Established Patient Pain Last seen 08/09/20 Left ankle sprain Reason Comments Cough Chest congestion, wh eezing, ST, fever x3 days Reason Comments Hemorrhoids Reason Comments Handicap Placard Reason Comments f/u on DME request from [employer] Reason Onset Date Comments Transition Of Care 05/31/2023 Reason Onset Date Comments Refill Request 06/14/2023 Reason Comments UTI Burning, frequency x 2 days Reason Comments Cough Reason Comments F/U 6 months Reason Onset Date Comments Refill Request 08/14/2023 Reason Comments Medication Problem Reason Comments Cough X 2 days cough, ches t tightness,scratchy throat fever of 101 on Eligio Reason Onset Date Comments Refill Request 10/31/2023 Reason Comments Radiology XR Care Teams (unrecognized sec tion and content) Associate Product Integrity Engineer Relationship Specialty Start Date End Date Erik Reynolds MD [address] [place] [address] PCP - General Family Practice 10/09/16 Associate Product Integrity Engineer Relationship Specialty Start Date End Date Erik Reynolds MD [address] [place] [id number] PCP - General Family Practice 10/09/16 Associate Product Integrity Engineer Relationship Specialty Start Date End Date Erik Reynolds MD [address] [place] [id number] PCP - General Family Practice 10/09/16 Associate Product Integrity Engineer Relationship Specialty Start Date End Date Erik Reynolds MD [address] [place] [id number] PCP - General Family Practice 10/09/16 Associate Product Integrity Engineer Relationship Specialty Start Date End Date Erik Reynolds MD [address] [place] [address] PCP - General Family Practice 10/09/16 Associate Product Integrity Engineer Relationship Specialty Start Date End Date Erik Reynolds MD [address] [place] [address] PCP - General Family Practice 10/09/16 Associate Product Integrity Engineer Relationship Specialty Start Date End Date Erik Reynolds MD [address] [place] [address] PCP - General Family Practice 10/09/16 Associate Product Integrity Engineer Relationship Specialty Start Date End Date Erik Reynolds MD [address] [facility] [place] [address] PCP - General Family Practice 10/09/16 Associate Product Integrity Engineer Relationship Specialty Start Date End Date Erik Reynolds MD [facility] [place] [address] PCP - General Family Practice 10/09/16 Associate Product Integrity Engineer Relationship Specialty Start Date End Date Erik Reynolds MD [facility] [place] [address] PCP - General Family Practice 10/09/16 Associate Product Integrity Engineer Relationship Specialty Start Date End Date Erik Reynolds MD [address] [place] [address], [place] [address] PCP - General Family Practice 10/09/16 Associate Product Integrity Engineer Relationship Specialty Start Date End Date Erik Reynolds MD [address] [place] [address], [place] [address] PCP - General Family Practice 10/09/16 Associate Product Integrity Engineer Relationship Specialty Start Date End Date Erik Reynolds MD [address] [place] [address], [place] [address] PCP - General Family Practice 10/09/16 Associate Product Integrity Engineer Relationship Specialty Start Date End Date Erik Reynolds MD [address] [place] [address], [place] [address] PCP - General Family Practice 10/09/16 Associate Product Integrity Engineer Relationship Specialty Start Date End Date Erik Reynolds MD [address] [place] [address], [place] [address] PCP - General Family Practice 10/09/16 Associate Product Integrity Engineer Relationship Specialty Start Date End Date Erik Reynolds MD [address] [place] [address], [place] [address] PCP - General Family Practice 10/09/16 Associate Product Integrity Engineer Relationship Specialty Start Date End Date Erik Reynolds MD [address] [facility] [place] [address] PCP - General Family Medicine 10/09/16 Associate Product Integrity Engineer Relationship Specialty Start Date End Date Fatemeh Rogers MD [address] [place] [address], [place] [address] PCP - General Internal Medicine 12/22/21 Associate Product Integrity Engineer Relationship Specialty Start Date End Date Fatemeh Rogers MD [address] [place] [address], [place] [id number] PCP - General Internal Medicine 12/22/21 Associate Product Integrity Engineer Relationship Specialty Start Date End Date Fatemeh Rogers MD [address] [place] [address], [place] [id number] PCP - General Internal Medicine 12/22/21 Associate Product Integrity Engineer Relationship Specialty Start Date End Date Fatemeh Rogers MD [address] [place] [address], [place] [address] PCP - General Internal Medicine 12/22/21 Associate Product Integrity Engineer Relationship Specialty Start Date End Date Fatemeh Rogers MD [address] [place] [address], [place] [address] PCP - General Internal Medicine 12/22/21 Associate Product Integrity Engineer Relationship Specialty Start Date End Date Fatemeh Rogers MD [address] [place] [address] [place] [address] PCP - General Internal Medicine 12/22/21 Associate Product Integrity Engineer Relationship Specialty Start Date End Date Fatemeh Rogers MD [address] [place] [address], [place] [address] PCP - General Internal Medicine 12/22/21 Associate Product Integrity Engineer Relationship Specialty Start Date End Date Fatemeh Rogers MD [facility] [place] [address] PCP - General Internal Medicine 12/22/21 Associate Product Integrity Engineer Relationship Specialty Start Date End Date Fatemeh Rogers MD [address] [place] [address], [place] [address] PCP - General Internal Medicine 12/22/21 Associate Product Integrity Engineer Relationship Specialty Start Date End Date Fatemeh Rogers MD [address] [place] [address], [place] [address] PCP - General Internal Medicine 12/22/21 Associate Product Integrity Engineer Relationship Specialty Start Date End Date Fatemeh Rogers MD [address] [place] [address], [place] [address] PCP - General Internal Medicine 12/22/21 Associate Product Integrity Engineer Relationship Specialty Start Date End Date Fatemeh Rogers MD [address] [place] [address], [place] [address] PCP - General Internal Medicine 12/22/21 Associate Product Integrity Engineer Relationship Specialty Start Date End Date Fatemeh Rogers MD [address] [place] [address], [place] [address] PCP - General Internal Medicine 12/22/21 Associate Product Integrity Engineer Relationship Specialty Start Date End Date Fatemeh Roegrs MD [address] [place] [address], [place] [address] PCP - General Internal Medicine 12/22/21 Associate Product Integrity Engineer Relationship Specialty Start Date End Date Fatemeh Rogers MD [address] [place] [address], [place] [address] PCP - General Internal Medicine 12/22/21 Associate Product Integrity Engineer Relationship Specialty Start Date End Date Fatemeh Rogers MD [address] [place] [address], [place] [address] PCP - General Internal Medicine 12/22/21 Associate Product Integrity Engineer Relationship Specialty Start Date End Date Fatemeh Rogers MD [address] [place] [address] PCP - General Internal Medicine 12/22/21 Associate Product Integrity Engineer Relationship Specialty Start Date End Date Fatemeh Rogers MD [address] [place], [place] [address] PCP - General Internal Medicine 12/22/21 Associate Product Integrity Engineer Relationship Specialty Start Date End Date Fatemeh Rogers MD [address] [place] [address] PCP - General Internal Medicine 12/22/21 Associate Product Integrity Engineer Relationship Specialty Start Date End Date Fatemeh Rogers MD [address] [place] [address] PCP - General Internal Medicine 12/22/21 Associate Product Integrity Engineer Relationship Specialty Start Date End Date Fatemeh Rogers MD [address] [place] [address] PCP - General Internal Medicine 12/22/21 Associate Product Integrity Engineer Relationship Specialty Start Date End Date Fatemeh Rogers MD [address] [place] [address] PCP - General Internal Medicine 12/22/21 [facility] [place], [place] [address] Referring Ophthalmology 12/15/22 Associate Product Integrity Engineer Relationship Specialty Start Date End Date Fatemeh Rogers MD [address] [place], [place] [address] PCP - General Internal Medicine 12/22/21 Associate Product Integrity Engineer Relationship Specialty Start Date End Date Fatemeh Rogers MD [address] [place] [address] PCP - General Internal Medicine 12/22/21 [facility] [address] [place] [address] Referring Ophthalmology 12/15/22 Associate Product Integrity Engineer Relationship Specialty Start Date End Date Fatemeh Rogers MD [address] [place] [address] PCP - General Internal Medicine 12/22/21 [facility] [address] [place] [address] Referring Ophthalmology 12/15/22 Associate Product Integrity Engineer Relationship Specialty Start Date End Date Fatemeh Rogers MD [address] [place] [address] PCP - General Internal Medicine 12/22/21 [facility] [address] [place] [address] Referring Ophthalmology 12/15/22 Associate Product Integrity Engineer Relationship Specialty Start Date End Date Fatemeh Rogers MD [address] [place] [address] PCP - General Internal Medicine 12/22/21 [facility] [address] [place] [address] Referring Ophthalmology 12/15/22 Associate Product Integrity Engineer Relationship Specialty Start Date End Date Fatemeh Rogers MD [address] [facility], [place] [address] PCP - General Internal Medicine 12/22/21 [facility] [address] [place] [address] Referring Ophthalmology 12/15/22 Associate Product Integrity Engineer Relationship Specialty Start Date End Date Fatemeh Rogers MD [address] [facility], [place] [address] PCP - General Internal Medicine 12/22/21 [facility] [address] [place] [address] Referring Ophthalmology 12/15/22 Associate Product Integrity Engineer Relationship Specialty Start Date End Date Fatemeh Rogers MD [address] [facility], [place] [address] PCP - General Internal Medicine 12/22/21 [facility] [address] [place] [address] Referring Ophthalmology 12/15/22 Associate Product Integrity Engineer Relationship Specialty Start Date End Date Fatemeh Rogers MD [address] [facility] [place] [address] PCP - General Internal Medicine 12/22/21 [facility] [address] [place] [address] Referring Ophthalmology 12/15/22 Associate Product Integrity Engineer Relationship Specialty Start Date End Date Fatemeh Rogers MD [address] [place] [address] PCP - General Internal Medicine 12/22/21 [facility] [address] [facility] [place] [address] Referring Ophthalmology 12/15/22 Associate Product Integrity Engineer Relationship Specialty Start Date End Date Fatemeh Rogers MD [address] [place] [address] PCP - General Internal Medicine 12/22/21 [facility] [address] [place] [address] Referring Ophthalmology 12/15/22 Associate Product Integrity Engineer Relationship Specialty Start Date End Date Fatemeh Rogers MD [address] [place] [address] PCP - General Internal Medicine 12/22/21 [facility] [address] [place] [address] Referring Ophthalmology 12/15/22 Associate Product Integrity Engineer Relationship Specialty Start Date End Date Fatemeh Rogers MD [address] [place] [address] PCP - General Internal Medicine 12/22/21 [facility] [address] [place] [address] Referring Ophthalmology 12/15/22 Associate Product Integrity Engineer Relationship Specialty Start Date End Date Fatemeh Rogers MD [address] [place], [place] [address]74[address] PCP - General Internal Medicine 12/22/21 [facility] [address] [place] [address] Referring Ophthalmology 12/15/22 Associate Product Integrity Engineer Relationship Specialty Start Date End Date Fatemeh Rogers MD [address] [place], [place] [address]281 PCP - General Internal Medicine 12/22/21 [facility] [address] [place] [address] Referring Ophthalmology 12/15/22 Associate Product Integrity Engineer Relationship Specialty Start Date End Date Fatemeh Rogers MD [address] [place], [place] [address] PCP - General Internal Medicine 12/22/21 [facility] [address] [place] [address] Referring Ophthalmology 12/15/22 Associate Product Integrity Engineer Relationship Specialty Start Date End Date Fatemeh Rogers MD [address] [place] [address] PCP - General Internal Medicine 12/22/21 Associate Product Integrity Engineer Relationship Specialty Start Date End Date Fatemeh Rogers MD [address] [place], [place] [address]27[address] PCP - General Internal Medicine 12/22/21 Associate Product Integrity Engineer Relationship Specialty Start Date End Date Erik Reynolds MD [address] [place] [address] PCP - General Family Medicine 10/09/16 12/21/21 Associate Product Integrity Engineer Relationship Specialty Start Date End Date Erik Reynolds MD [address] [place] [address] PCP - General Family [facility] 10/09/16 12/21/21 Associate Product Integrity Engineer Relationship Specialty Start Date End Date Erik Reynolds MD [address] [place] [address] PCP - General Family [facility] 10/09/16 12/21/21 FOR RECORDS PERTAINING TO PATIENTS WHO ARE OR HAVE BEEN ENROLLED IN A CHEMICAL DEPENDENCY/SUBSTANCEABUSE PROGRAM, SOME INFORMATION MAY BE OMITTED. This clinical summary was aggregated from multiple sources. Caution should be exercised in using it in the provision of clinical care. This summary normalizes information from multiple sources, and as a consequence, information in this document may materially change the coding, format and clinical context of patient data. In addition, data may be omitted in some cases. CLINICAL DECISIONS SHOULD BE BASED ON THE PRIMARY CLINICAL RECORDS. [facility] [employer] [facility]. provides no warranty or guarantee of the accuracy or completeness of information in this document.
[2023-12-15 23:11] LABS: Anion Gap 7 (5-15); BUN 21 mg/dL (7-18); BUN/Creat Ratio 24.2 RATIO (10-20); Calcium,Total 9.2 mg/dL (8.5-10.1); Chloride 110 mmol/L (98-107); Creatinine, Serum 0.87 mg/dL (0.55-1.02); EST Glomerular Filtration Rate 68 mL/min (>60); Est Glom Filt Rate - Afr Amer 83 mL/min (>60); Estimated Creatinine Clearance 66.71 ml/min; Glucose 113 mg/dL (74-106); Potassium 3.9 mmol/L (3.5-5.1); Sodium Level 140 mmol/L (136-145)
[2023-12-15 23:21] LABS: Lactic Acid 1.2 mmol/L (0.4-1.9)
[2023-12-16 00:05] LABS: Mucous, Urine 0 SEEN /hpf (<or=2+); Red Blood Cells-Urine 0 SEEN /hpf (0-5)
[2023-12-16 00:07] LABS: Color, Urine Yellow (Yellow); Glucose, Dipstick Normal (Normal); Ketone-Dipstick Negative (Negative); Leukocyte Esterase-Dipstick 25 /ul (Negative); Nitrite-Dipstick Positive (Negative); Occult Blood-Urine Negative /ul (Negative); Protein-Dipstick 15 mg/dl (Negative); Urine Bilirubin Dipstick Negative (Negative); Urine Clarity Clear (Clear); Urine Urobilinogen Normal (Normal); Urine pH 6.5 (5.0 - 8.0)
[2023-12-16 00:11] VITALS: BP 117/64; PULSE 92; O2SAT 95
[2023-12-16 00:28] LABS: Bacteria 3+ /hpf (None Seen); Squamous Epithelial Cells - UA 5-10 SEEN /hpf (5-10); White Blood Cells 5-10 SEEN /hpf (0-5)
[2023-12-16 01:08] VITALS: BP 117/64; PULSE 92; RESP 18; TEMP 37.2; O2SAT 95
== END 2023-12-16 01:33 | disposition home or self-care (01) ==
PROVIDERS: Emergency Provider Emergency Medicine; PCP Internal Medicine; Referring Provider Emergency Medicine; Visit Provider Emergency Medicine
DX: R19.7 Diarrhea, unspecified (principal); I48.0 Paroxysmal atrial fibrillation; R10.32 Left lower quadrant pain; R11.0 Nausea; I10 Essential (primary) hypertension; E78.5 Hyperlipidemia, unspecified; K21.9 Gastro-esophageal reflux disease without esophagitis; Z79.01 Long term (current) use of anticoagulants; Z79.899 Other long term (current) drug therapy; Z90.710 Acquired absence of both cervix and uterus; Z86.73 Personal history of transient ischemic attack (TIA), and cerebral infarction without residual deficits; Z87.19 Personal history of other diseases of the digestive system
CPT/HCPCS: 74177; 80048; 81001; 83605; 85025; 96374; 99283; Q9967; A4216

== ENCOUNTER → 2023-12-26 | Outpatient (CLI) | payer MEDICARE, MEDICAID, SELFPAY ==
[2023-12-28 22:07] LABS: Calprotectin, Stool 100 ug/g (0-120)
[2023-12-31 15:08] LABS: Pancreatic Elastase, Fecal > 800 (>200)
== END | disposition home or self-care (01) ==
LOC: LABSPEC 10:21
PROVIDERS: PCP Internal Medicine; Referring Provider Student in an Organized Health Care Education/Training Program; Visit Provider Student in an Organized Health Care Education/Training Program
DX: R19.7 Diarrhea, unspecified (principal); K58.9 Irritable bowel syndrome, unspecified
CPT/HCPCS: 82653; 83630; 83993; 87177; 87209; 87329; 87506

== ENCOUNTER 2024-01-26 13:39 | Emergency (ER) | payer MEDICARE, MEDICAID, SELFPAY ==
[2024-01-26 13:39] VITALS: BP 133/89; PULSE 105; RESP 21; TEMP 36.1; O2SAT 97; BMI 32.1
--- NOTE | 2024-01-26 14:20 | EKG12_ITS ---
Test Reason : N/V, CP Blood Pressure : */* mmHG Vent. Rate : 100 BPM Atrial Rate : 100 BPM P-R Int : 138 ms QRS Dur : 74 ms QT Int : 360 ms P-R-T Axes : 63 17 62 degrees QTcB Int : 464 ms Normal sinus rhythm Normal ECG Confirmed by Chava Jeong ([id number]), news videotape editor DERECK ALBA ([id number]) on 01/28/2024 11:37:17 AM Referred By: Confirmed By: Chava Jeong
--- NOTE | 2024-01-26 14:20 | CT_ITS ---
EXAM: CT ABDOMEN AND PELVIS WITH INTRAVENOUS CONTRAST CLINICAL INDICATION: Abdominal pain TECHNIQUE: Helically acquired images were obtained of the abdomen and pelvis with intravenous contrast. This CT exam was performed using one or more of the following dose reduction techniques: automated exposure control, adjustment of the mA and/or kV according to patient size, and/or use of iterative reconstruction technique. CONTRAST: IV 100mL Isovue-370 COMPARISON: CT Abdomen Pelvis dated 12/15/2023 and 05/26/2023 FINDINGS: LOWER THORAX: Small hiatal hernia. ABDOMEN: LIVER: Normal. Homogeneous. No focal mass. GALLBLADDER AND BILE DUCTS: Cholecystectomy again seen. Prominence of the common bile duct within the range of normal for postcholecystectomy patient. PANCREAS: Normal. No focal cystic or solid mass. SPLEEN: Normal. Normal size without focal cystic or solid mass. ADRENALS: Normal. No nodules. KIDNEYS AND URETERS: Stable bilateral simple appearing renal cysts. No specific follow-up indicated. Normal renal size and position. No hydronephrosis. STOMACH AND BOWEL: Mild stool burden within the large bowel. Mild diverticulosis of sigmoid colon without evidence of acute diverticulitis. PELVIS: APPENDIX: Appendix is visualized and normal in appearance. BLADDER: Normal. REPRODUCTIVE: Hysterectomy noted. ABDOMEN and PELVIS: INTRAPERITONEAL SPACE: Normal. No ascites or other fluid collection. No free air. BONES/JOINTS: No suspicious lytic or blastic abnormality. SOFT TISSUES: Small fat-containing umbilical hernia is present. VASCULATURE: Normal. Abdominal aorta is non-dilated. LYMPH NODES: Normal. No enlarged lymph nodes. CT/Abdomen/Pelvis W IV Cont ONLY IMPRESSION: 1. No acute abdominal or pelvic abnormality. 2. Small hiatal hernia. Electronically Signed: Vikram Spears MD at 16:08 EST ,
--- NOTE | 2024-01-26 14:25 | EDS_ITS ---
HPI History of Present Illness Chief Complaint: Chest Pain Narrative Narrative: Chief complaint and HPI: Epigastric abdominal pain. 73-year-old female with history of proximal atrial fibrillation on Eliquis, asthma, GERD, HTN, HLD presents for evaluation of epigastric abdominal pain with nausea and vomiting. Patient states that today she developed acid reflux with epigastric abdominal pain. She states shortly after she developed nausea, nonbloody vomiting, nonbloody diarrhea. Patient states she took Zofran at home without any improvement. She states her epigastric abdominal pain radiates into her chest. She denies any fever, cough, shortness of breath, dysuria. Patient has not been on any antibiotics. She states for the past week she has been having intermittent sinus congestion. No recent travel. Review of systems: See HPI Medications: As listed on the chart Allergies: As listed on the chart PFSH: Per chart Vital signs: As listed on the chart. Reviewed. Physical exam: Gen: A&O x3, NAD Head: Normocephalic, atraumatic Eyes: No sclera icterus, conjunctiva clear ENT: Moist mucous membranes Neck: Trachea midline, No JVD CV: RRR, no murmurs, no peripheral edema Resp: Lungs CTA BL, no w/r/c GI: Abd soft, non-distended, mild diffuse tenderness to palpation, no r/r Musc: Full ROM, no deformity Skin: Warm, dry Neuro: Alert, oriented, grossly intact, sensation intact Psych: Cooperative, appropriate mood and affect [facility] Medical History Ischemic colitis Symptomatic anemia History of cataract Diarrhea Post-menopausal Wears partial dentures History of Clostridium difficile infection Osteoarthritis Osteoarth NOS-up/arm 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 Ambulates with cane Back pain History of hiatal hernia History of stress test Non-smoker Colitis Acute lower gastrointestinal bleeding Osteoporosis Atrial fibrillation Traumatic hematoma of abdominal wall Secondary pulmonary arterial hypertension Paroxysmal atrial fibrillation Essential (primary) hypertension Suspected 2019 novel coronavirus infection (05/19/19) Community acquired pneumonia On amiodarone therapy retirement current use of anticoagulant TIA (transient ischemic attack) Asthma HLD (hyperlipidemia) CVA (cerebral vascular accident) BMI greater than 30 Migraine GERD (gastroesophageal reflux disease) Home Medications ?Medication ?Instructions ?Recorded ?Last Taken ?Type epinephrine 0.3 mg/0.3 mL 0.3 mg IM X1 ALLERGIC REACTIONS 05/04/13 Unknown History injection, auto-injector loratadine 10 mg tablet 10 mg PO DAILY ALLERGIES 05/04/13 05/26/23 History albuterol sulfate 90 mcg/actuation 2 puff inhalation Q6H PRN Sob &/Or 12/26/15 09/09/19 History aerosol inhaler Wheezing meclizine 25 mg tablet 25 mg PO Q6H PRN Dizziness 03/28/16 05/26/23 History fluticasone propionate 50 2 spray NASAL DAILY PRN Allergies 07/02/18 09/15/21 History mcg/actuation nasal spray,suspension albuterol sulfate 2.5 mg/3 mL 2.5 mg inhalation Q4H PRN Sob &/Or 12/04/18 12/01/18 History (0.083 %) solution for nebulization Wheezing verapamil 240 mg tablet,extended 240 mg PO DAILY BP #90 tabs 12/30/19 05/26/23 Rx release atorvastatin 40 mg tablet 40 mg PO DAILY cholesterol 11/18/21 05/26/23 History pantoprazole 40 mg tablet,delayed See Rx Instructions .Route 06/12/22 05/26/23 R x release .COMPLEX stomach #90 tabs metoprolol tartrate 25 mg tablet 25 mg PO BID 30 days #60 tabs 02/20/23 05/26/23 Rx apixaban 5 mg tablet (Eliquis) 5 mg PO BID thinner #180 tabs 08/10/23 Unknown Rx dicyclomine 10 mg capsule 20 mg (2 x 10 mg) PO Q6H PRN 12/16/23 Unknown Rx abdominal pain #30 caps fluticasone 100 mcg-salmeterol 50 1 inh inhalation BID PRN 12/19/23 Unknown History mcg/dose blistr powdr for inhalation (Advair Diskus) Allergy/AdvReac Type Severity Reaction Status Date / Time adhesive tape Allergy Rash Verified 01/26/24 13:44 pepper (genus Capsicum) Allergy Hives Verified 01/26/24 13:44 propoxyphene HCl (From Allergy Rash Verified 01/26/24 13:44 Darvon) sulfamethoxazole (From Allergy Shortness Verified 01/26/24 13:44 Bactrim) of breath trimethoprim (From Bactrim) Allergy Shortness Verified 01/26/24 13:44 of breath venom-honey bee (bee venom Allergy Anaphylaxis Verified 01/26/24 13:44 (honey bee)) venom-wasp (wasp venom) Allergy Anaphylaxis Verified 01/26/24 13:44 Family History Father CAD (coronary artery disease) Brother Heart disease Surgical History History of colonoscopy (11/21/21) history of mastoid tumor resection History of total hysterectomy History of cholecystectomy Social History Smoking Status: Never smoker alcohol intake: current alcohol intake frequency: holidays/special occasions only substance use type: does not use caffeine: Yes Type: tea Number of servings: 2 EXAM Physical Exam Const Vital Signs: 01/26/24 13:39 01/26/24 15:39 01/26/24 17:00 Temperature 97 F L Temperature Source Temporal Pulse Rate 105 H 95 89 Respiratory Rate 21 H 28 H 16 Blood Pressure 133/89 H 145/71 H 145/73 H Blood Pressure Mean 103 95 97 Pulse Ox 97 95 93 Oxygen Delivery Method Room Air MDM MDM MDM Narrative Medical decision making narrative: 73-year-old female presents for evaluation of epigastric abdominal pain with nausea, vomiting, diarrhea. Pain does radiate into her chest. Differential diagnosis includes but is not limited to viral illness, gastroenteritis, dehydration, gastritis, PUD, pancreatitis, cholecystitis, diverticulitis, UTI. Suspect less likely ACS but also on the differential. NS bolus, Zofran, Pepcid ordered for symptoms. Laboratory and imaging ordered including CT abdomen and pelvis. Patient refused COVID, RSV, influenza. EKG only and chest x-ray reviewed see below. CBC without leukocytosis. Patient has baseline anemia. CMP relatively unremarkable without RALPH or transaminitis. Lipase unremarkable. Troponin flat x 2 UA positive for UTI with bacteria and nitrites. Urine culture obtained. Rocephin ordered. CT abdomen pelvis without any acute abnormality. Patient does have a small hiatal hernia. This is likely the cause of her GERD. Patient's symptoms are either secondary to viral illness as well as UTI or just UTI. Patient able to tolerate p.o. intake. Patient will be discharged home on Keflex for UTI follow-up with PCP. Patient states she has enough Zofran at home and does not need a new prescription. Return precautions explained. Patient stable to discharge home. EKG: Interpreted by me/EM physician: EKG shows normal sinus rhythm without any ST elevation. Heart rate 100. Diagnostic: Interpreted by me/EM physician: Chest x-ray without pneumonia, effusion, cardiomegaly, pneumothorax Impression: 1. Nausea vomiting 2. Abdominal pain 3. UTI Lab Data Labs: Laboratory Results - last 24 hr 01/26/24 01/26/24 01/26/24 14:37 15:58 16:59 WBC 7.9 RBC 5.92 H Hgb 11.5 L Hct 40.7 MCV 68.8 L MCH 19.4 L MCHC 28.3 L RDW Std Deviation 41.2 RDW Coeff of Kahlil 18.1 H Plt Count 380 MPV 8.8 Immature Gran % (Auto) 0.500 Neut % (Auto) 90.3 H Lymph % (Auto) 4.9 L [place] % (Auto) 3.5 Eos % (Auto) 0.5 Baso % (Auto) 0.3 Absolute Neuts (auto) 7.2 Absolute Lymphs (auto) 0.39 L Nucleated RBC % 0 Sodium 141 Potassium 3.7 Chloride 108 H Carbon Dioxide 27.0 Anion Gap 6 BUN 20 H Creatinine 0.77 Estim Creat Clear Calc 71.99 Est GFR (MDRD) Af Amer 94 Est GFR (MDRD) Non-Af 78 BUN/Creatinine Ratio 25.9 H Glucose 120 H Calcium 8.7 Total Bilirubin 0.80 AST 16 ALT 18 Alkaline Phosphatase 160 H Troponin I High Sens 10 13 Total Protein 7.0 Albumin 3.6 Globulin 3.4 Albumin/Globulin Ratio 1.1 Lipase 23 Urine Color Yellow Urine Clarity Clear Urine pH 6.5 Ur Specific [place] 1.015 Urine Protein 15 H Urine Glucose (UA) Normal Urine Ketones Negative Urine Occult Blood Negative Urine Nitrite Positive H Urine Bilirubin 1 H Urine Urobilinogen Normal Ur Leukocyte Esterase 25 H Urine RBC 0 SEEN Urine WBC 5-10 SEEN Ur Squamous Epith Cells 0-5 SEEN Urine Bacteria 3+ Urine Mucus 1+ Radiography Diagnostic Testing: Clinical Impression(s) from Imaging Studies Abdomen/Pelvis CT 01/26/24 14:20 IMPRESSION: 1. No acute abdominal or pelvic abnormality. 2. Small hiatal hernia. Electronically Signed: Vikram Spears MD at 16:08 EST , Chest X-Ray 01/26/24 15:45 IMPRESSION: No acute cardiopulmonary abnormality. No interval change. Electronically Signed: Vikram Spears MD at 16:10 EST , Discharge Plan Triage Chief Complaint: Chest Pain Other Complaint: Nausea/Vomiting ED Provider: Alessandro Nair Dx/Rx/DC Orders Prescriptions: No Action atorvastatin 40 mg tablet 40 mg PO DAILY fluticasone propion-salmeterol [Advair Diskus] 100-50 mcg/dose blister with device 1 inh inhalation BID PRN epinephrine 0.3 MG syringe 0.3 mg IM X1 loratadine 10 MG tablet 10 mg PO DAILY albuterol sulfate 18 GM HFA aerosol inhaler 2 puff inhalation Q6H PRN (Reason: Sob &/Or Wheezing) meclizine 25 MG tablet 25 mg PO Q6H PRN (Reason: Dizziness) fluticasone propionate 1 SPRAY spray,suspension 2 spray NASAL DAILY PRN (Reason: Allergies) albuterol sulfate 2.5 MG/3 ML solution for nebulization 2.5 mg inhalation Q4H PRN (Reason: Sob &/Or Wheezing) metoprolol tartrate 25 mg Tablet 25 mg PO BID 30 Days Qty: 60 0RF dicyclomine 10 mg capsule 20 mg PO Q6H PRN (Reason: abdominal pain) Qty: 30 1RF verapamil 240 mg tablet extended release 240 mg PO DAILY Qty: 90 3RF pantoprazole 40 mg tablet,delayed release (DR/EC) See Rx Instructions .ROUTE .COMPLEX Qty: 90 0RF Dose Instruction: TAKE 1 TABLET EVERY DAY Rx Instructions: TAKE 1 TABLET EVERY DAY Eliquis 5 mg tablet 5 mg PO BID Qty: 180 2RF Primary Care Provider: Valencia Rivera Referrals: Valencia Rivera MD [Primary Care Provider] - Print Language: Yakut
[2024-01-26 14:46] LABS: Absolute Lymphocyte Count 0.39 X10^3/uL (0.83-4.51); Absolute Neutrophil Count 7.2 X10^3/uL (2.0-7.7); Basophil# 0.02 X10^3/uL; Basophil% 0.3 % (0-1); Eosinophil# 0.04 X10^3/uL; Eosinophils% 0.5 % (0-5); Hematocrit 40.7 % (37-47); Hemoglobin 11.5 g/dL (12.0-15.0); Lymphocyte # 0.39 X10^3/ul (0.83-4.51); Lymphocyte % 4.9 % (19-41); Mean Corp Hgb Conc 28.3 g/dL (32-36); Mean Corpuscular Hgb 19.4 pg (27.0-32.0); Mean Corpuscular Volume 68.8 fL (81-99); Mean Platelet Vol. 8.8 fl (6.2-12.0); Monocyte# 0.28 X10^3/uL; Monocyte% 3.5 % (0-10); NRBC Flagged by Analyzer 0 % (0-5); Neutrophil # 7.15 X10^3/uL (2.7-7.7); Neutrophil % 90.3 % (47-70); POSITIVE DIFFERENTIAL YES; Platelet Count 380 K/mm3 (150-450); RBC Distribution Width CV 18.1 % (11.6-14.6); RBC Distribution Width SD 41.2 fl (35.1-43.9); Red Blood Count 5.92 M/mm3 (4.2-5.4); White Blood Count 7.9 K/mm3 (4.4-11.0)
[2024-01-26] MEDS: 0.9% Normal Saline (1000mL) 1,000 ML 1000 ML IV (14:57)
[2024-01-26] MEDS: Famotidine 200 MG/20 ML MDV 20 MG in 0.9% Normal Saline (Pres. free 8 ML 300 MG IV (14:57)
[2024-01-26] MEDS: Ondansetron 4 MG/2 ML Vial IV (14:57)
[2024-01-26 15:04] LABS: ALB/GLOB Ratio 1.1 RATIO (0.9-2.4); AST(SGOT) 16 U/L (15-37); Alanine Aminotransfer ALT/SGPT 18 U/L (13-56); Albumin, Serum 3.6 g/dL (3.2-5.0); Alkaline Phosphatase 160 U/L (45-117); Anion Gap 6 (5-15); BUN 20 mg/dL (7-18); BUN/Creat Ratio 25.9 RATIO (10-20); Calcium,Total 8.7 mg/dL (8.5-10.1); Chloride 108 mmol/L (98-107); Creatinine, Serum 0.77 mg/dL (0.55-1.02); EST Glomerular Filtration Rate 78 mL/min (>60); Est Glom Filt Rate - Afr Amer 94 mL/min (>60); Estimated Creatinine Clearance 71.99 ml/min; Globulin 3.4 g/dL (2.2-4.2); Glucose 120 mg/dL (74-106); Lipase 23 U/L (13-75); Potassium 3.7 mmol/L (3.5-5.1); Sodium Level 141 mmol/L (136-145); Troponin-I HS (w/2H Reflex) 10 pg/mL (3.0-54.0)
[2024-01-26 15:39] VITALS: BP 145/71; PULSE 95; RESP 28; O2SAT 95
--- NOTE | 2024-01-26 15:45 | RAD_ITS ---
EXAM: XR CHEST, 2 VIEWS CLINICAL INDICATION: Chest pain TECHNIQUE: Frontal and lateral views of the chest. COMPARISON: XR Chest dated 02/17/2023 FINDINGS: LUNGS AND PLEURAL SPACES: Postinflammatory changes at the lung apices again seen. Stable hyperinflated appearance of the lungs suggestive of underlying COPD. HEART: Normal heart size. MEDIASTINUM: No mediastinal or hilar mass. BONES/JOINTS: No acute abnormality. RAD/Chest PA and Lateral IMPRESSION: No acute cardiopulmonary abnormality. No interval change. Electronically Signed: Vikram Spears MD at 16:10 EST ,
[2024-01-26 16:07] LABS: Red Blood Cells-Urine 0 SEEN /hpf (0-5)
[2024-01-26 16:11] LABS: Color, Urine Yellow (Yellow); Glucose, Dipstick Normal (Normal); Ketone-Dipstick Negative (Negative); Leukocyte Esterase-Dipstick 25 /ul (Negative); Nitrite-Dipstick Positive (Negative); Occult Blood-Urine Negative /ul (Negative); Protein-Dipstick 15 mg/dl (Negative); Specific Gravity, Urine 1.015 (1.002-1.030); Urine Bilirubin Dipstick 1 mg/dL (Negative); Urine Clarity Clear (Clear); Urine Urobilinogen Normal (Normal); Urine pH 6.5 (5.0 - 8.0)
[2024-01-26 16:31] LABS: Bacteria 3+ /hpf (None Seen); Mucous, Urine 1+ /hpf (<or=2+); Squamous Epithelial Cells - UA 0-5 SEEN /hpf (5-10); White Blood Cells 5-10 SEEN /hpf (0-5)
[2024-01-26] MEDS: Ceftriaxone 1 GM/50 ML BAG IV (16:38)
[2024-01-26 16:43] LABS: Reflex Troponin-HS? (from REC) Y
[2024-01-26 17:00] VITALS: BP 145/73; PULSE 89; RESP 16; O2SAT 93
[2024-01-26 17:27] LABS: Troponin-I HS 13 pg/mL (3.0-54.0)
[2024-01-26 17:51] VITALS: BP 127/78; PULSE 82; RESP 18; TEMP 37.2; O2SAT 99
== END 2024-01-26 17:52 | disposition home or self-care (01) ==
PROVIDERS: Emergency Provider Surgery; PCP Internal Medicine; Visit Provider Surgery
DX: N39.0 Urinary tract infection, site not specified (principal); I27.21 Secondary pulmonary arterial hypertension; I48.0 Paroxysmal atrial fibrillation; R10.13 Epigastric pain; R07.9 Chest pain, unspecified; R19.7 Diarrhea, unspecified; I10 Essential (primary) hypertension; K21.9 Gastro-esophageal reflux disease without esophagitis; J45.909 Unspecified asthma, uncomplicated; E78.5 Hyperlipidemia, unspecified; K44.9 Diaphragmatic hernia without obstruction or gangrene; R11.2 Nausea with vomiting, unspecified; Z79.01 Long term (current) use of anticoagulants; Z79.899 Other long term (current) drug therapy; Z86.73 Personal history of transient ischemic attack (TIA), and cerebral infarction without residual deficits
CPT/HCPCS: 71046; 74177; 80053; 81001; 83690; 84484; 85025; 87086; 87088; 87186; 93005; 96361; 96365; 96367; 96375; 99285; J7030; J7040; Q9967; A4216; J2405; J3490

== ENCOUNTER 2024-03-24 15:18 | Observation (INO) | payer MEDICARE, MEDICAID, SELFPAY ==
[2024-03-24] VITALS (14 sets, daily range): BP systolic 120–149; BP diastolic 49–88; PULSE 66–97; RESP 13–25; TEMP 36.4–36.9; O2SAT 94–100; BMI 30.5
--- NOTE | 2024-03-24 15:25 | EKG12_ITS ---
Test Reason : SOB Blood Pressure : */* mmHG Vent. Rate : 61 BPM Atrial Rate : * BPM P-R Int : * ms QRS Dur : 74 ms QT Int : 432 ms P-R-T Axes : * 58 60 degrees QTcB Int : 434 ms Atrial fibrillation Abnormal ECG Confirmed by ANNELIESE ALLEN, CARLEEN ([id number]), index editor DERECK ALBA ([id number]) on 03/26/2024 6:26:33 AM Referred By: ANDRÉS/MISSY Confirmed By: CARLEEN COY MD
[2024-03-24 15:43] LABS: Absolute Lymphocyte Count 1.22 X10^3/uL (0.83-4.51); Absolute Neutrophil Count 6.5 X10^3/uL (2.0-7.7); Basophil# 0.06 X10^3/uL; Basophil% 0.7 % (0-1); Eosinophil# 0.17 X10^3/uL; Eosinophils% 1.9 % (0-5); Hemoglobin 11.2 g/dL (12.0-15.0); Lymphocyte # 1.22 X10^3/ul (0.83-4.51); Lymphocyte % 13.7 % (19-41); Mean Corp Hgb Conc 29.5 g/dL (32-36); Mean Corpuscular Volume 74.5 fL (81-99); Mean Platelet Vol. 9.9 fl (6.2-12.0); Monocyte# 0.94 X10^3/uL; Monocyte% 10.6 % (0-10); NRBC Flagged by Analyzer 0 % (0-5); Neutrophil # 6.48 X10^3/uL (2.7-7.7); Neutrophil % 72.8 % (47-70); POSITIVE MORPHOLOGY YES; Platelet Count 292 K/mm3 (150-450); RBC Distribution Width CV 21.7 % (11.6-14.6); RBC Distribution Width SD 57.4 fl (35.1-43.9); White Blood Count 8.9 K/mm3 (4.4-11.0)
[2024-03-24 15:44] LABS: Differential Indicated SCAN CRITERIA MET
[2024-03-24 16:08] LABS: Anion Gap 7 (5-15); BUN 13 mg/dL (7-18); BUN/Creat Ratio 12.6 RATIO (10-20); Calcium,Total 8.7 mg/dL (8.5-10.1); Chloride 108 mmol/L (98-107); Creatinine, Serum 1.03 mg/dL (0.55-1.02); EST Glomerular Filtration Rate 56 mL/min (>60); Est Glom Filt Rate - Afr Amer 68 mL/min (>60); Glucose 164 mg/dL (74-106); Potassium 3.4 mmol/L (3.5-5.1); Sodium Level 138 mmol/L (136-145); Troponin-I HS 7 pg/mL (3.0-54.0)
--- NOTE | 2024-03-24 16:47 | EDS_ITS ---
HPI History of Present Illness Chief Complaint: Shortness of Breath [facility] Medical History Ischemic colitis Symptomatic anemia History of cataract Diarrhea Post-menopausal Wears partial dentures History of Clostridium difficile infection Osteoarthritis Osteoarth NOS-up/arm 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 Ambulates with cane Back pain History of hiatal hernia History of stress test Non-smoker Colitis Acute lower gastrointestinal bleeding Osteoporosis Atrial fibrillation Traumatic hematoma of abdominal wall Secondary pulmonary arterial hypertension Paroxysmal atrial fibrillation Essential (primary) hypertension Suspected 2019 novel coronavirus infection (05/19/19) Community acquired pneumonia On 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 TIA (transient ischemic attack) Asthma HLD (hyperlipidemia) CVA (cerebral vascular accident) BMI greater than 30 Migraine GERD (gastroesophageal reflux disease) Home Medications ?Medication ?Instructions ?Recorded ?Last Taken ?Type epinephrine 0.3 mg/0.3 mL 0.3 mg IM X1 ALLERGIC REACTIONS 05/04/13 Unknown History injection, auto-injector loratadine 10 mg tablet 10 mg PO DAILY ALLERGIES 05/04/13 03/24/24 History albuterol sulfate 90 mcg/actuation 2 puff inhalation Q6H PRN Sob &/Or 12/26/15 09/09/19 History aerosol inhaler Wheezing meclizine 25 mg tablet 25 mg PO Q6H PRN Dizziness 03/28/16 05/26/23 History fluticasone propionate 50 2 spray NASAL DAILY PRN Allergies 07/02/18 09/15/21 History mcg/actuation nasal spray,suspension albuterol sulfate 2.5 mg/3 mL 2.5 mg inhalation Q4H PRN Sob &/Or 12/04/18 12/01/18 History (0.083 %) solution for nebulization Wheezing verapamil 240 mg tablet,extended 240 mg PO DAILY BP #90 tabs 12/30/19 03/24/24 Rx release atorvastatin 40 mg tablet 40 mg PO DAILY cholesterol 11/18/21 03/24/24 History metoprolol tartrate 25 mg tablet 25 mg PO BID 30 days #60 tabs 02/20/23 03/24/24 Rx apixaban 5 mg tablet (Eliquis) 5 mg PO BID thinner #180 tabs 08/10/23 03/24/24 Rx fluticasone 100 mcg-salmeterol 50 1 inh inhalation BID PRN shortness 12/19/23 Unknown History mcg/dose blistr powdr for of breath inhalation (Advair Diskus) benzonatate 100 mg capsule 100 mg PO BID PRN cough 03/24/24 03/24/24 History ferrous sulfate 325 mg (65 mg 325 mg PO DAILY 03/24/24 03/24/24 History iron) tablet (FeroSul) pantoprazole 40 mg tablet,delayed 40 mg PO DAILY stomach 03/24/24 03/24/24 History release Allergy/AdvReac Type Severity Reaction Status Date / Time adhesive tape Allergy Rash Verified 03/24/24 15:19 pepper (genus Capsicum) Allergy Hives Verified 03/24/24 15:19 propoxyphene HCl (From Allergy Rash Verified 03/24/24 15:19 Darvon) sulfamethoxazole (From Allergy Shortness Verified 03/24/24 15:19 Bactrim) of breath trimethoprim (From Bactrim) Allergy Shortness Verified 03/24/24 15:19 of breath venom-honey bee (bee venom Allergy Anaphylaxis Verified 03/24/24 15:19 (honey bee)) venom-wasp (wasp venom) Allergy Anaphylaxis Verified 03/24/24 15:19 Family History Father CAD (coronary artery disease) Brother Heart disease Surgical History History of colonoscopy (11/21/21) history of mastoid tumor resection History of total hysterectomy History of cholecystectomy Social History Smoking Status: Never smoker alcohol intake: current alcohol intake frequency: holidays/special occasions only substance use type: does not use caffeine: Yes Type: tea Number of servings: 2 EXAM Physical Exam Const Vital Signs: 03/24/24 15:19 03/24/24 16:41 03/24/24 16:42 Temperature 98.4 F 98.1 F Temperature Source Oral Oral Pulse Rate 66 72 Respiratory Rate 25 H 16 Respiratory Effort Respiratory Pattern Blood Pressure 129/49 H 143/78 H Blood Pressure Mean 75 99 Pulse Ox 94 95 95 Oxygen Delivery Method Room Air Room Air Room Air 03/24/24 16:42 03/24/24 16:43 03/24/24 17:13 Temperature Temperature Source Pulse Rate 97 Respiratory Rate 16 Respiratory Effort Short of Breath Respiratory Pattern Blood Pressure Blood Pressure Mean Pulse Ox 95 Oxygen Delivery Method Room Air 03/24/24 17:36 03/24/24 18:57 03/24/24 19:13 Temperature Temperature Source Pulse Rate 71 67 68 Respiratory Rate 13 17 24 H Respiratory Effort Respiratory Pattern Normal Blood Pressure 120/60 137/88 H Blood Pressure Mean 80 104 Pulse Ox 98 96 Oxygen Delivery Method Room Air Room Air 03/24/24 20:47 Temperature 97.5 F L Temperature Source Pulse Rate 87 Respiratory Rate 23 H Respiratory Effort Respiratory Pattern Blood Pressure 136/70 H Blood Pressure Mean 92 Pulse Ox 99 Oxygen Delivery Method MDM MDM MDM Narrative Medical decision making narrative: HISTORY OF PRESENT ILLNESS: 74-year-old female with history of asthma, paroxysmal A-fib, hypertension hyperlipidemia, pulmonary artery hypertension presents with shortness of breath, cough chest pain congestion fevers. Began 2 days ago. Notes cough, chest congestion. Notes wheezing and fevers. The patient denies recent surgery in the last 4 weeks or immobilization in the last 3 days, denies previous diagnosis of DVT or PE, hemoptysis, unilateral leg swelling or malignancy with treatment the last 6 months or palliative. No estrogen use noted. Notes compliance with Eliquis. No bleeding diathesis. No lower extremity edema. REVIEW OF SYSTEMS: Pertinent positives: As per HPI Pertinent negatives: Syncope PHYSICAL EXAM: Nursing triage notes reviewed, Vital signs reviewed Constitutional: please see mdm HENT: MMM Eyes: Pupils equal round and reactive to light, Extraocular muscles intact Neck: No stridor, no JVD, full neck ROM Lungs: Clear to auscultation, No wheezing or rales. No increased work of breathing, no conversational dyspnea, no accessory muscle use, no nasal flaring. No respiratory distress noted Heart: Regular rate and rhythm, No murmurs, No rubs and No gallops, 2+ distal pulses (radial, femoral, posterior tibial) in all extremities Abdomen: Soft, there is no tenderness, rigidity, rebound or guarding, no obvious peritoneal signs, no palpable pulsatile abdominal masses, no auscultated abdominal bruit : No CVAT Extremities: No edema Neuro: No new focal neurological deficits, cranial nerves II through XII intact, 5/5 strength in all present extremities. Intact sensation to light touch in all present extremities, 2+ reflexes bilateral patella tendons. Skin: No rash or lesions noted MEDICAL DECISION MAKING: Chief Complaint: As per HPI External records reviewed: Reviewed prior cardiovascular testing. Reviewed stress test from 2022 which showed normal pharmacologic myocardial perfusion stress test, preserved ejection fraction Factors affecting care: As per HPI Social determinants of health: none History obtained from others: none Consults: Internal medicine (Dr. Cruz) discussed admitting [facility] Narrative: The patient was initially hemodynamically stable, afebrile and nontoxic- appearing. Exam with bilateral wheezing. No stigmata of VTE or CHF. I considered the following differential diagnosis: This COVID/flu/RSV/pneumonia/arrhythmia/ACS/PE Triage labs were placed secondary to poor department of dynamics including high volume and high acuity. Triage labs included troponin, BMP, CBC, EKG After I evaluated the patient I added a chest x-ray, delta troponin, COVID RSV and flu swab. I added DuoNeb breathing treatments given wheezing. Also added Toradol, Zofran for symptomatic relief. ALL IMAGES (IF OBTAINED) HAVE BEEN PERSONALLY REVIEWED AND INTERPRETED BY MYSELF. EKG with rate controlled A-fib, normal axis, normal intervals, no STEMI CBC with no leukocytosis, noted mild anemia, no thrombocytopenia High-sensitivity troponin is negative, no evidence of myocardial ischemiax2 Chest x-ray was read reviewed personally by myself consistent with possible left lower lobe pneumonia Plan reassessment patient remained hemodynamically stable. She is saturating well on room air. I thought in terms of respiratory status and diagnosis of pneumonia she was appropriate for discharge home with oral antibiotics however the patient noted to me she lives at home alone and cannot ambulate. She states she has had years of right knee pain. She states that she cannot ambulate at home. States lives alone. States her bedroom is on the second floor. She states she is not feel safe going home. She states she like to be admitted for possible placement or penitentiary or rehab facility. I started patient on IV ceftriaxone azithromycin to treat community-acquired pneumonia. At this point I decided to further assess the patient's right lower extremity. Her right lower extremity was neurovascularly intact. She has some mild swelling and slight effusion to the right lower extremity compared to left but no warmth redness or pain out of proportion to exam to suggest septic arthritis. There is no sign of dislocated patella. Quadriceps tendon complex was intact. Compartments were soft. At this point I opted to add on an x-ray of the right knee to further assess. X-ray of the right knee was read reviewed by myself showed evidence of significant osteoarthritis which explains patient ambulatory difficulty. Given the patient's advanced age, multiple medical comorbidities, inability ambulate, pneumonia I opted to admit the patient. Discussed with hospitalist agreed to admit the patient. The patient and/or family, caregivers express understanding. The patient and/or family, caregivers agrees with the plan. Shared decision making: I will have a discussion with the patient and or visitors regarding risk/benefits of further testing or admission. They will be made aware of of the risk/benefits inherent in this decision they will be given the opportunity to voice understanding. Total critical care time today provided was at least 0 minutes. This excludes separately billable procedures. Critical care time (if documented) is secondary to the patient having high probability of clinically significant/life threatening deterioration in the patient's condition which required my urgent intervention. Impression: 1. Community-acquired pneumonia 2. Right knee osteoarthritis 4. Inability to ambulate Dispo: Admit to floor This note was generated with [employer] dictation software. It may contain incorrect words, spelling, and punctuation that were not noted in review of the chart prior to signing. Lab Data Labs: Laboratory Results - last 24 hr 03/24/24 03/24/24 15:32 17:20 WBC 8.9 RBC 5.10 Hgb 11.2 L Hct 38.0 MCV 74.5 L MCH 22.0 L MCHC 29.5 L RDW Std Deviation 57.4 H RDW Coeff of Kahlil 21.7 H Plt Count 292 MPV 9.9 Immature Gran % (Auto) 0.300 Neut % (Auto) 72.8 H Lymph % (Auto) 13.7 L Jones % (Auto) 10.6 H Eos % (Auto) 1.9 Baso % (Auto) 0.7 Absolute Neuts (auto) 6.5 Absolute Lymphs (auto) 1.22 Nucleated RBC % 0 [address] Review May foll Atypical Lymphocytes 1+ Plt Morphology Comment LARGE Anisocytosis 1+ Sickle Cells RARE Ovalocytes 2+ [place] Cells RARE Sodium 138 Potassium 3.4 L Chloride 108 H Carbon Dioxide 23.0 Anion Gap 7 BUN 13 Creatinine 1.03 H Est GFR (MDRD) Af Amer 68 Est GFR (MDRD) Non-Af 56 L BUN/Creatinine Ratio 12.6 Glucose 164 H Calcium 8.7 Troponin I High Sens 7 6 Radiography Diagnostic Testing: Clinical Impression(s) from Imaging Studies Chest X-Ray 03/24/24 17:28 IMPRESSION: Small pleural effusion versus focal airspace disease (atelectasis versus infiltrate) at the left base peripherally. Electronically Signed: Josh Davidson MD at 17:53 EST , Knee X-Ray 03/24/24 19:00 IMPRESSION: 1. Small to moderate joint effusion. 2. No acute or healing fracture or malalignment. 3. Tricompartmental osteoarthrosis which is worse/severe at the medial femorotibial compartment. Electronically Signed: Josh Davidson MD at 19:57 EST , Discharge Plan Triage Chief Complaint: Shortness of Breath ED Provider: Candelario Coreas Dx/Rx/DC Orders Primary Care Provider: Valencia Rivera
[2024-03-24 17:11] LABS: Anisocytosis 1+; Ovalocyte 2+
[2024-03-24] MEDS: Ipratropium/Albuterol Sulfate 3 ML AMPUL.NEB INHALATION ×2 (17:11→19:12)
[2024-03-24 17:12] LABS: Burr Cells RARE
[2024-03-24 17:13] LABS: Platelet Morphology LARGE; Sickle RARE
[2024-03-24 17:14] LABS: Atypical Lymphocyte 1+ %
[2024-03-24] MEDS: Ondansetron 4 MG/2 ML Vial IV (17:21)
[2024-03-24] MEDS: Ketorolac 15 MG/ML Vial IV (17:22)
--- NOTE | 2024-03-24 17:28 | RAD_ITS ---
EXAM: XR CHEST, 1 VIEW CLINICAL INDICATION: Shortness of breath TECHNIQUE: Frontal view of the chest. COMPARISON: 01/26/24 FINDINGS: LUNGS AND PLEURAL SPACES: Small pleural effusion versus focal airspace disease at the left base peripherally. No other consolidation or edema. No pneumothorax. HEART: Unremarkable. Cardiac silhouette not enlarged. MEDIASTINUM: Central airways and mediastinal contour are unremarkable. BONES/JOINTS: Unremarkable. No acute fracture. SOFT TISSUES: Unremarkable. RAD/Chest 1 View (Portable) IMPRESSION: Small pleural effusion versus focal airspace disease (atelectasis versus infiltrate) at the left base peripherally. Electronically Signed: Josh Davidson MD at 17:53 EST ,
[2024-03-24 17:43] LABS: Troponin-I HS 6 pg/mL (3.0-54.0)
--- NOTE | 2024-03-24 18:34 | NURSING ---
CONTACT DAUGHTER AKIN AMANDA AT [phone] FOR PERSON TO NOTIFY
--- NOTE | 2024-03-24 19:00 | RAD_ITS ---
EXAM: XR RIGHT KNEE, 3 VIEWS CLINICAL INDICATION: right knee pain TECHNIQUE: Three views of the right knee. COMPARISON: No relevant prior studies available. FINDINGS: BONES/JOINTS: [id number] suprapatellar joint effusion. Severe osteoarthrosis with [id number] articulation at the medial femorotibial compartment. Widening of the lateral compartment. Moderate osteoarthrosis of the patellofemoral compartment. Osteophytes at the intercondylar notch. No sclerotic or destructive changes observed. No acute or healing fracture or malalignment. SOFT TISSUES: Unremarkable. No soft tissue swelling or gas. No radiopaque foreign body. RAD/Knee 3 Views IMPRESSION: 1. Small to moderate joint effusion. 2. No acute or healing fracture or malalignment. 3. Tricompartmental osteoarthrosis which is worse/severe at the medial femorotibial compartment. Electronically Signed: Josh Davidson MD at 19:57 EST ,
[2024-03-24] MEDS: Ceftriaxone 2 GM in 0.9% Normal Saline (50mL MB+) 50 ML IV (19:17)
[2024-03-24] MEDS: Azithromycin 500 MG in 0.9% Normal Saline (250mL Bag) 250 ML 250 MG IV (20:06)
--- NOTE | 2024-03-24 20:31 | HP.PCM.HOS_ITS ---
[facility] - General General Date of Admission: 03/24/24 Date of Service: 03/24/24 Chief Complaint: SOB, Cough and Generalized Weakness with Inability to Walk. HPI Narrative ROMAIN BAILEY, is a 74 F with a past medical history of essential hypertension; on metoprolol, obesity; with BMI of 30.5 this admission, paroxysmal atrial fibrillation; on verapamil and apixaban, history of TIA/CVA, history of mitral insufficiency, history of secondary pulmonary arterial hypertension, history of asthma, history of symptomatic anemia; with history of LGIB, history of pneumonia, suspected history of COVID-19 (2019), history of migraine headaches, history of vertigo; on meclizine, history of ischemic colitis, history of C. difficile infection (2020), history of traumatic hematoma of abdominal wall, history of total hysterectomy, history of cholecystectomy, history of mastoid tumor resection, history of colonoscopy (2021), history of GERD; on pantoprazole, osteoporosis and severe OA; with chronic back and knee pain with patient ambulating with walker at baseline who presents to [facility] ER complaining of shortness of breath, cough and being generally weak and unable to walk. Ms. Bailey reports her symptoms began approximately 2 days prior to admission with mild shortness of breath, nonproductive cough and pleuritic type chest pain with congestion. She admits to intermittent wheezing and subjective fever. She states she has been compliant with her medications including her apixaban. She denies associated chills, nausea, vomiting, diarrhea, constipation, blood in stools, blood in urine, lower extremity edema or headache but she does admit to her Left knee feeling like it was unstable and going to 'give out' at any time though she denies recent fall or other traumatic injury. In the ER she was noted to have a initial negative viral assay - but he second more extensive viral respiratory panel returned positive for Influenza A with unremarkable laboratory studies other than mild Hypokalemia of 3.4 mmol/L and mild Hyperglycemia of 164 mg/dL present on admission with a chest x-ray that revealed small pleural effusions versus focal airspace disease (atelectasis versus infiltrate) at Left base peripherally with the ER physician concerned for possible early signs of Pneumonia complicated by clinical evidence of Generalized Weakness with Ambulatory Dysfunction and she was then admitted to the general medical floor under observation status for status expected to be less than 2 midnights. [facility] Medical History Ischemic colitis Symptomatic anemia History of cataract Diarrhea Post-menopausal Wears partial dentures History of Clostridium difficile infection Osteoarthritis Osteoarth NOS-up/arm 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 Ambulates with cane Back pain History of hiatal hernia History of stress test Non-smoker Colitis Acute lower gastrointestinal bleeding Osteoporosis Atrial fibrillation Traumatic hematoma of abdominal wall Secondary pulmonary arterial hypertension Paroxysmal atrial fibrillation Essential (primary) hypertension Suspected 2019 novel coronavirus infection (05/19/19) Community acquired pneumonia 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 TIA (transient ischemic attack) Asthma HLD (hyperlipidemia) CVA (cerebral vascular accident) BMI greater than 30 Migraine GERD (gastroesophageal reflux disease) Home Medications ?Medication ?Instructions ?Recorded ?Last Taken ?Type epinephrine 0.3 mg/0.3 mL 0.3 mg IM X1 ALLERGIC REACTIONS 05/04/13 Unknown History injection, auto-injector loratadine 10 mg tablet 10 mg PO DAILY ALLERGIES 05/04/13 03/24/24 History albuterol sulfate 90 mcg/actuation 2 puff inhalation Q6H PRN Sob &/Or 12/26/15 09/09/19 History aerosol inhaler Wheezing meclizine 25 mg tablet 25 mg PO Q6H PRN Dizziness 03/28/16 05/26/23 History fluticasone propionate 50 2 spray NASAL DAILY PRN Allergies 07/02/18 09/15/21 History mcg/actuation nasal spray,suspension albuterol sulfate 2.5 mg/3 mL 2.5 mg inhalation Q4H PRN Sob &/Or 12/04/18 12/01/18 History (0.083 %) solution for nebulization Wheezing verapamil 240 mg tablet,extended 240 mg PO DAILY BP #90 tabs 12/30/19 03/24/24 Rx release atorvastatin 40 mg tablet 40 mg PO DAILY cholesterol 11/18/21 03/24/24 History metoprolol tartrate 25 mg tablet 25 mg PO BID 30 days #60 tabs 02/20/23 03/24/24 Rx apixaban 5 mg tablet (Eliquis) 5 mg PO BID thinner #180 tabs 08/10/23 03/24/24 Rx fluticasone 100 mcg-salmeterol 50 1 inh inhalation BID PRN shortness 12/19/23 Unknown History mcg/dose blistr powdr for of breath inhalation (Advair Diskus) benzonatate 100 mg capsule 100 mg PO BID PRN cough 03/24/24 03/24/24 History ferrous sulfate 325 mg (65 mg 325 mg PO DAILY 03/24/24 03/24/24 History iron) tablet (FeroSul) pantoprazole 40 mg tablet,delayed 40 mg PO DAILY stomach 03/24/24 03/24/24 History release Allergy/AdvReac Type Severity Reaction Status Date / Time adhesive tape Allergy Rash Verified 03/24/24 15:19 pepper (genus Capsicum) Allergy Hives Verified 03/24/24 15:19 propoxyphene HCl (From Allergy Rash Verified 03/24/24 15:19 Darvon) sulfamethoxazole (From Allergy Shortness Verified 03/24/24 15:19 Bactrim) of breath trimethoprim (From Bactrim) Allergy Shortness Verified 03/24/24 15:19 of breath venom-honey bee (bee venom Allergy Anaphylaxis Verified 03/24/24 15:19 (honey bee)) venom-wasp (wasp venom) Allergy Anaphylaxis Verified 03/24/24 15:19 Family History Father CAD (coronary artery disease) Brother Heart disease Surgical History History of colonoscopy (11/21/21) history of mastoid tumor resection History of total hysterectomy History of cholecystectomy Social History Smoking Status: Never smoker alcohol intake: current alcohol intake frequency: holidays/special occasions only substance use type: does not use caffeine: Yes Type: tea Number of servings: 2 ROS ROS Narrative Review of Systems: Constitutional: Patient admits to subjective fever but she denies chills. Eyes: Patient denies changes in vision or discharge from eyes. ENT: Patient denies runny nose, sore throat or ear pain. Resp: Patient admits to shortness of breath and nonproductive cough with chest congestion as per HPI. CV: Patient admits to pleuritic type chest pain made worse with deep breathing and cough. She denies palpitations, heart racing or lower extremity edema. GI: Patient denies abdominal pain, nausea, vomiting, diarrhea or constipation. : Patient denies dysuria, hematuria or urinary frequency. MSK: Patient admits to severe pain in knees making it difficult for her to ambulate. Skin: Patient denies rash, abscess, wounds or jaundice. Psych: Patient denies symptoms of uncontrolled depression or anxiety. Neuro: Patient denies headache, paresthesias or focal neurologic deficits. Allergy: Patient denies lip swelling, tongue swelling or urticaria. Hematology: Patient denies recent bleeding and she affirms she has been taking her apixaban as prescribed. Endocrinology: Patient denies polyuria, polydipsia or polyphagia. 14 point review of systems otherwise negative except for positives noted above in HPI. Vital Signs Vital Signs Vital Signs: 03/24/24 15:19 03/24/24 16:41 03/24/24 16:42 Temperature 98.4 F 98.1 F Temperature Source Oral Oral Pulse Rate 66 72 Respiratory Rate 25 H 16 Respiratory Effort Respiratory Pattern Blood Pressure 129/49 H 143/78 H Blood Pressure Mean 75 99 Pulse Ox 94 95 95 Oxygen Delivery Method Room Air Room Air Room Air 03/24/24 16:42 03/24/24 16:43 03/24/24 17:13 Temperature Temperature Source Pulse Rate 97 Respiratory Rate 16 Respiratory Effort Short of Breath Respiratory Pattern Blood Pressure Blood Pressure Mean Pulse Ox 95 Oxygen Delivery Method Room Air 03/24/24 17:36 03/24/24 18:57 03/24/24 19:13 Temperature Temperature Source Pulse Rate 71 67 68 Respiratory Rate 13 17 24 H Respiratory Effort Respiratory Pattern Normal Blood Pressure 120/60 137/88 H Blood Pressure Mean 80 104 Pulse Ox 98 96 Oxygen Delivery Method Room Air Room Air Weight Weight: 189 lb 2.506 oz Body Mass Index (BMI) 30.5 Physical Exam Const alert, oriented x3 and no apparent distress Constitutional Narrative: Obese with chronically ill appearance. General Appearance: cooperative HEENT normocephalic, head/scalp atraumatic, hearing grossly normal bilaterally and moist oral mucous membranes Eyes PERRL, EOMs intact bilaterally and conjunctivae normal Neck no lymphadenopathy and supple Resp normal respiratory effort, no retractions, no use of accessory muscles and clear to auscultation bilaterally Cardio regular rate and regular rhythm GI normal to inspection, nondistended, normoactive bowel sounds, soft to palpation, non-tender and non-distended GI Narrative: Obese. Extremity normal to inspection, full ROM and no clubbing, cyanosis or edema Skin Skin Narrative: Patient has no evidence of rash, abscess, wounds or jaundice. Neuro oriented x3, CN's II-XII intact bilaterally, moves all extremities and no focal motor deficits Sensorium / Orientation: awake, alert, oriented to person, oriented to place and oriented to time Speech: speech normal Psych affect normal Results Medical Records Data Attestation: I reviewed the patient's medical records Lab / Micro Data Attestation: I reviewed the patient's lab results. 03/24/24 15:32 03/24/24 15:32 Labs: Laboratory Results - last 24 hr 03/24/24 15:32: WBC 8.9, RBC 5.10, Hgb 11.2 L, Hct 38.0, MCV 74.5 L, MCH 22.0 L, MCHC 29.5 L, RDW Std Deviation 57.4 H, RDW Coeff of Kahlil 21.7 H, Plt Count 292, MPV 9.9, Immature Gran % (Auto) 0.300, Neut % (Auto) 72.8 H, Lymph % (Auto) 13.7 L, Stanton % (Auto) 10.6 H, Eos % (Auto) 1.9, Baso % (Auto) 0.7, Absolute Neuts (auto) 6.5, Absolute Lymphs (auto) 1.22, Nucleated RBC % 0, Diff Path Review May foll, Atypical Lymphocytes 1+, Plt Morphology Comment LARGE, Anisocytosis 1+, Sickle Cells RARE, Ovalocytes 2+, Ola Cells RARE, Sodium 138, Potassium 3.4 L, Chloride 108 H, Carbon Dioxide 23.0, Anion Gap 7, BUN 13, Creatinine 1.03 H, Est GFR (MDRD) Af Amer 68, Est GFR (MDRD) Non-Af 56 L, BUN/Creatinine Ratio 12.6, G lucose 164 H, Calcium 8.7, Troponin I High Sens 7 03/24/24 17:20: Troponin I High Sens 6 Micro: Microbiology 03/24/24 17:25 Mucosa - Nose SARS-CoV-2, Influenza & RSV (PCR) - Final Imaging Radiology Impression Chest X-Ray 03/24/24 17:28 IMPRESSION: Small pleural effusion versus focal airspace disease (atelectasis versus infiltrate) at the left base peripherally. Electronically Signed: Josh Davidson MD at 17:53 EST , Knee X-Ray 03/24/24 19:00 IMPRESSION: 1. Small to moderate joint effusion. 2. No acute or healing fracture or malalignment. 3. Tricompartmental osteoarthrosis which is worse/severe at the medial femorotibial compartment. Electronically Signed: Josh Davidson MD at 19:57 EST , [facility] Imaging Services [address] [place] [id number] Chest without Contrast MR#: [id number] Acct: [id number] Name: ROMAIN BAILEY Rep #: [id number] : 1950 F 74 From: Cristhian Roger MD PCP: Dr. Valencia Rivera MD Status: ADM ANN MARIE Study: Chest without Contrast Date of Exam: 03/25/24 Exam# [id number] Ordering Dr: Codey Portillo DO INDICATION: Suspected LLL pneumonia on CXR. EXAMINATION: CT CHEST WITHOUT CONTRAST - CT Chest W/O Contrast Injection TECHNIQUE: Helically acquired images were obtained of the chest. The protocol utilizes one or more of the following dose reduction techniques: automated exposure control, adjustment of mA and/or kV according to patient size,and/or use of iterative reconstruction technique. IV Contrast dosage and agent: None. RADIATION DOSAGE (If Supplied By Facility): CTDIvol = ( 13.75 ) mGy, DLP = ( 522.09 ) mGycm COMPARISON: No relevant prior comparison study available FINDINGS: LUNGS, PLEURA AND LARGE AIRWAYS: The central airways are patent. Linear basilar atelectasis. Mild scarring at the lung apices. No masses, consolidation, or edema. No pleural effusion. No pneumothorax. THYROID: No thyroid lesions. HEART AND PERICARDIUM: Heart size is normal. No pericardial effusion. CORONARY ARTERIES: Coronary artery calcification is seen. VESSELS: Thoracic aorta is not dilated. MEDIASTINUM AND MARU: Mediastinal lymphadenopathy. Pretracheal lymph node measures 1.6 cm. Esophagus is unremarkable. No hiatal hernia. UPPER ABDOMEN: No acute pathology. Simple left renal cysts which require no specific follow-up. BONES: No suspicious lytic or blastic abnormality. Mild degenerative changes of the spine. CT/Chest without Contrast IMPRESSION: Linear atelectasis at the lung bases. No dense consolidation. There is mediastinal lymphadenopathy, nonspecific. Electronically Signed: Cristhian Roger MD at 3:21 EST Reading Location ID and State: [address] [place] [address] Tel , Service support , CC: Dr. Codey Portillo DO; Dr. Valencia Rivera MD ~ Physician Vice President: Signed Assessment & Plan Assessment/Plan (1) Influenza A: (2) Acute hypokalemia: (3) Hyperglycemia: (4) Generalized weakness: (5) Ambulatory dysfunction: (6) Obesity (BMI 30.0-34.9): PLAN: Plan 1. Chest x-ray that revealed small pleural effusions versus focal airspace disease (atelectasis versus infiltrate) at Left base peripherally with the ER physician concerned for possible early signs of Pneumonia - Admit to general medical floor under observation status. Continue empiric treatment with doxycycline IV BID and then transition to oral. Give Mucinex prn. Give Tylenol prn for pain or fever. Check CT of chest to clarify suspected pneumonia on CXR. Finally, we will check extended viral respiratory panel in case of other pathogen not tested for on initial viral screen with preliminary report positive for Influenza A causing patient to be started on Tamiflu 30 mg PO BID along with vitamin D3, vitamin C and zinc to help boost immunity and hopefully speed recovery. 2. Hypokalemia of 3.4 mmol/L present on admission complicating #1 - Give supplemental KCl and then recheck level in AM to confirm repletion. 3. Hyperglycemia of 164 mg/dL present on admission compounding #1 & #2 - Check HgbA1c to confirm diabetic status. 4. Generalized Weakness and Ambulatory Dysfunction in the setting of known severe OA; with chronic back and knee pain with patient ambulating with walker at baseline adding to the medical complexity of #1 - #3 - PT/OT and Case Management to consult and treat on-rounds in AM for further recommendations regarding possible ECF with help appreciated in advance. 5. Obesity; with BMI of 30.5 this admission - Weight loss will be recommended. Check TSH. This complicates her case and may hamper recovery. 6. Essential Hypertension; on metoprolol - Continue metoprolol as before. 7. Paroxysmal Atrial Fibrillation; on verapamil and apixaban - Maintain current regimen. 8. History of TIA/CVA - Noted. 9. History of mitral insufficiency - Noted. 10. History of secondary pulmonary arterial hypertension - Noted. 11. History of asthma - Stable with no evidence of acute flare at this time. Give nebulizers prn. 12. History of symptomatic anemia; with history of LGIB - Noted with no report of recent bleeding and with a hemoglobin of 11.2 g/dL and low MCV 74.5 fL present on admission - Check iron studies and ferritin. Hemoccult stools. 13. History of pneumonia - Noted. 14. Suspected history of COVID-19 (2019) - Noted. 15. History of migraine headaches - Stable with no evidence of recurrence at this time. 16. History of vertigo; on prn meclizine - Resume prn meclizine as before. 17. History of ischemic colitis - Noted. 18. History of C. difficile infection (2021) - Noted. We will watch closely for signs of diarrhea. 19. History of traumatic hematoma of abdominal wall - Noted. 20. History of total hysterectomy - Noted. 21. History of cholecystectomy - Noted. 22. History of mastoid tumor resection - Noted. 23. History of colonoscopy (2021) - Noted. 24. History of GERD; on pantoprazole - Continue PPI. 25. Osteoporosis - Stable. 26. DVT prophylaxis - Patient is already on apixaban for #7 which will be continued. Total time: Approximately (but not less than) 70 minutes. Charges/Coding Visit Charges OBSV E&M: 75372 Observ/hosp same date L2
[2024-03-24] MEDS: Albuterol 2.5 MG/3 ML VIAL.NEB. INHALATION (22:56)
[2024-03-24 23:00] LABS: Ferritin 30 ng/mL (8-252); Iron 15 ug/dL (50-170); Iron Binding Capacity,Total 296 ug/dL (250-450); PERCENT IRON SATURATION 5.1 % (15.0-55.0)
[2024-03-24 23:01] LABS: Hemoglobin A1c 5.3 % (3.8-5.6)
[2024-03-24 23:03] LABS: BNP,B-Type NATRIURETIC PEPTIDE 222.3 pg/mL (0-100)
[2024-03-24] MEDS: Metoprolol Tartrate 25 MG Tablet PO (23:15)
[2024-03-24] MEDS: Potassium Chloride Oral Tablet 20 MEQ 60 MEQ PO (23:16)
[2024-03-24] MEDS: KCL 20MEQ in 0.9% NS 20 MEQ/1,000 ML IV.SOLN. 50 MEQ IV (23:16)
[2024-03-24] MEDS: Doxycycline 100 MG in Dextrose 5%-Water (250mL Bag) 250 ML 250 MG IV (23:18)
[2024-03-25] VITALS (11 sets, daily range): BP systolic 111–129; BP diastolic 67–81; PULSE 78–84; RESP 16–20; TEMP 36.4–37; O2SAT 92–98; BMI 27.2
--- NOTE | 2024-03-25 00:25 | CT_ITS ---
INDICATION: Suspected LLL pneumonia on CXR. EXAMINATION: CT CHEST WITHOUT CONTRAST - CT Chest W/O Contrast Injection TECHNIQUE: Helically acquired images were obtained of the chest. The protocol utilizes one or more of the following dose reduction techniques: automated exposure control, adjustment of mA and/or kV according to patient size,and/or use of iterative reconstruction technique. IV Contrast dosage and agent: None. RADIATION DOSAGE (If Supplied By Facility): CTDIvol = ( 13.75 ) mGy, DLP = ( 522.09 ) mGycm COMPARISON: No relevant prior comparison study available FINDINGS: LUNGS, PLEURA AND LARGE AIRWAYS: The central airways are patent. Linear basilar atelectasis. Mild scarring at the lung apices. No masses, consolidation, or edema. No pleural effusion. No pneumothorax. THYROID: No thyroid lesions. HEART AND PERICARDIUM: Heart size is normal. No pericardial effusion. CORONARY ARTERIES: Coronary artery calcification is seen. VESSELS: Thoracic aorta is not dilated. MEDIASTINUM AND MARU: Mediastinal lymphadenopathy. Pretracheal lymph node measures 1.6 cm. Esophagus is unremarkable. No hiatal hernia. UPPER ABDOMEN: No acute pathology. Simple left renal cysts which require no specific follow-up. BONES: No suspicious lytic or blastic abnormality. Mild degenerative changes of the spine. CT/Chest without Contrast IMPRESSION: Linear atelectasis at the lung bases. No dense consolidation. There is mediastinal lymphadenopathy, nonspecific. Electronically Signed: Cristhian Roger MD at 3:21 EST ,
[2024-03-25] MEDS: Oseltamivir Phosphate 30 MG Capsule PO (05:53)
[2024-03-25] MEDS: Albuterol 2.5 MG/3 ML VIAL.NEB. INHALATION ×3 (07:07→19:14)
[2024-03-25] MEDS: Budesonide Respules 0.5 MG/2 ML AMPUL.NEB. INHALATION ×2 (07:07→19:14)
[2024-03-25 07:53] LABS: Absolute Lymphocyte Count 1.25 X10^3/uL (0.83-4.51); Basophil# 0.04 X10^3/uL; Basophil% 0.6 % (0-1); Eosinophil# 0.17 X10^3/uL; Eosinophils% 2.7 % (0-5); Hematocrit 34.5 % (37-47); Hemoglobin 9.7 g/dL (12.0-15.0); Lymphocyte # 1.25 X10^3/ul (0.83-4.51); Mean Corp Hgb Conc 28.1 g/dL (32-36); Mean Corpuscular Hgb 21.2 pg (27.0-32.0); Mean Corpuscular Volume 75.5 fL (81-99); Mean Platelet Vol. 10.5 fl (6.2-12.0); Monocyte# 0.75 X10^3/uL; NRBC Flagged by Analyzer 0 % (0-5); Neutrophil # 4.02 X10^3/uL (2.7-7.7); Neutrophil % 64.4 % (47-70); POSITIVE MORPHOLOGY YES; Platelet Count 243 K/mm3 (150-450); RBC Distribution Width CV 21.8 % (11.6-14.6); RBC Distribution Width SD 59.1 fl (35.1-43.9); Red Blood Count 4.57 M/mm3 (4.2-5.4); White Blood Count 6.3 K/mm3 (4.4-11.0)
[2024-03-25 08:00] LABS: Differential Indicated SCAN CRITERIA MET
[2024-03-25] MEDS: 0.9% Saline Lock 10 ML Syringe IV ×2 (08:12→19:14)
[2024-03-25] MEDS: Furosemide 40 MG/4 ML Vial IV (08:12)
[2024-03-25 08:42] LABS: ALB/GLOB Ratio 0.8 RATIO (0.9-2.4); AST(SGOT) 20 U/L (15-37); Alanine Aminotransfer ALT/SGPT 20 U/L (13-56); Albumin, Serum 2.8 g/dL (3.2-5.0); Alkaline Phosphatase 144 U/L (45-117); Anion Gap 7 (5-15); BUN 18 mg/dL (7-18); BUN/Creat Ratio 22.5 RATIO (10-20); Calcium,Total 8.3 mg/dL (8.5-10.1); Chloride 112 mmol/L (98-107); EST Glomerular Filtration Rate 75 mL/min (>60); Est Glom Filt Rate - Afr Amer 90 mL/min (>60); Estimated Creatinine Clearance 65.59 ml/min; Globulin 3.4 g/dL (2.2-4.2); Glucose 91 mg/dL (74-106); Phosphorus 3.8 mg/dL (2.5-4.9); Potassium 3.8 mmol/L (3.5-5.1); Protein, Total 6.2 g/dL (6.4-8.2); Sodium Level 142 mmol/L (136-145)
[2024-03-25 09:15] LABS: Acanthocytes 1+; Ovalocyte 2+; Polychromasia 1+
[2024-03-25 09:16] LABS: Anisocytosis 1+; Platelet Estimate A (ADEQ)
[2024-03-25] MEDS: Doxycycline 100 MG in 0.9% Normal Saline (250mL Bag) 250 ML 250 MG IV ×2 (10:13→21:44)
[2024-03-25] MEDS: Verapamil SR 240 MG Tablet PO (10:14)
[2024-03-25] MEDS: Loratadine 10 MG Tablet PO (10:15)
[2024-03-25] MEDS: APIXABAN 5 MG TABLET PO ×2 (10:16→21:45)
[2024-03-25] MEDS: Pantoprazole Sodium 40 MG Tablet PO (10:18)
[2024-03-25] MEDS: Cholecalciferol (Vit D3) 125 MCG CAPSULE (5,000 UNITS) PO (10:18)
[2024-03-25] MEDS: Metoprolol Tartrate 25 MG Tablet PO ×2 (10:20→21:43)
--- NOTE | 2024-03-25 10:42 | CASEMGMT ---
Noted pt did not qualify for home oxygen per nurse. Nurse states pt is ambulating in room with cane. RN CM into pt room, pt sitting up in bed. Pt states she lives in a two story home with 3 steps to enter. Pt is typically indep in ADLs and IADLs but someone does carry her laundry up and down from basement. Pt states she drives. Pt uses a quad cane at baseline, has a walker, brace for drop foot and shower chair as well. Pt states she feels weak due to her illness but declines need for any HHC at this time. Updated hospitalist.
[2024-03-25] MEDS: Ferrous Sulfate 325 MG Tablet PO (11:39)
--- NOTE | 2024-03-25 12:38 | PCM.PN.HOSP ---
Reason for Visit Reason for Visit: Exertional dyspnea Subjective Subjective Patient is a 74-year-old white female who presents emergency department with [facility] 03/24/2024 with a chief complaint of shortness of breath, cough, and generalized weakness. Patient reports that her symptoms started about 2 days prior to presentation with mild shortness of breath, nonproductive cough, and pleuritic type chest congestion. She reported chills and subjective fever but had no objective data to support this. She also complained of intermittent wheezing. She does have a history of asthma and uses Advair discus and albuterol inhaler. She also has a nebulizer. She stated this was ineffective for her so she came emergency department for further evaluation. She did complain that her left knee felt unstable and it was going to give out on her. She ambulates with a cane at baseline. Was initially thought that her influenza A was positive however on review of data both the PCR and the respiratory viral panel are reporting undetected for influenza A and B as well as other viral pathogen. Vital signs on presentation showed temperature of 98.4, heart rate 66, respiratory was 25 with repeated 16, blood pressure was 129/49 and pulse ox was 94% on room air. CBC showed anemia with hemoglobin 11.2 and it was microcytic. Patient has chronic microcytic anemia and states she has been on iron and has outpatient workup in progress. Repeat hemoglobin on the second day of admission was 9.7 which is more consistent with a baseline she has had as of recently. She did have a monocytosis on her differential. Chemistry panel showed mild hypokalemia and slightly elevated serum creatinine 1.03 with a baseline serum creatinine of 0.7-0.85. Initial troponin was 7 with a delta of 6. Her BNP was slightly elevated at 222.3 with no recent baseline. She never had an echocardiogram and has no signs of heart failure. Chest x-ray was suggestive of small pleural effusion versus focal airspace disease at the left base peripherally. Knee x-ray was performed due to knee pain and demonstrated a small joint effusion with no acute or healing fractures/malalignment and tricompartmental osteoarthritis. CT of the chest was performed and showed mediastinal lymphadenopathy and linear atelectasis at the lung bases with no dense consolidations. Patient was on room air at rest and with ambulation however she was extremely concerned about her weakness that she was not able to go home and take care of herself as she does live alone. Given this she was admitted to the hospital and placed on IV doxycycline, given pulmonary toilet, and Physical and Occupational Therapy was consulted. Patient states clinically she is feeling better today however she is still worried about her weakness and going home and being alone. Objective Data Objective Data Vital Signs: Vital Signs Temp Pulse Resp BP Pulse Ox O2 Del Method 97.5 F L 84 16 129/67 H 98 Room Air 03/25/24 08:07 03/25/24 10:20 03/25/24 08:07 03/25/24 08:07 03/25/24 10:02 03/25/24 08:21 Oxygen Delivery Method Room Air Weight: 76.9 kg Body Mass Index (BMI) 27.2 Intake & Output: Intake and Output for Last 24 Hours 03/23/24 03/24/24 03/25/24 23:59 23:59 23:59 Intake Total 305 / 305 1160 / 1160 Balance 305 / 305 1160 / 1160 Lab / Micro Data 03/25/24 06:18 03/25/24 06:18 Labs: Laboratory Results - last 24 hr 03/24/24 15:32: WBC 8.9, RBC 5.10, Hgb 11.2 L, Hct 38.0, MCV 74.5 L, MCH 22.0 L, MCHC 29.5 L, RDW Std Deviation 57.4 H, RDW Coeff of Kahlil 21.7 H, Plt Count 292, MPV 9.9, Immature Gran % (Auto) 0.300, Neut % (Auto) 72.8 H, Lymph % (Auto) 13.7 L, Hendry % (Auto) 10.6 H, Eos % (Auto) 1.9, Baso % (Auto) 0.7, Absolute Neuts (auto) 6.5, Absolute Lymphs (auto) 1.22, Nucleated RBC % 0, Diff Path Review May foll, Atypical Lymphocytes 1+, Plt Morphology Comment LARGE, Anisocytosis 1+, Sickle Cells RARE, Ovalocytes 2+, Suring Cells RARE, Sodium 138, Potassium 3.4 L, Chloride 108 H, Carbon Dioxide 23.0, Anion Gap 7, BUN 13, Creatinine 1.03 H, Est GFR (MDRD) Af Amer 68, Est GFR (MDRD) Non-Af 56 L, BUN/Creatinine Ratio 12.6, Glucose 164 H, Hemoglobin A1c 5.3, Calcium 8.7, Troponin I High Sens 7, B-Natriuretic Peptide 222.3 H 03/24/24 17:20: Iron 15 L, TIBC 296, Iron Saturation 5.1 L, Ferritin 30, Troponin I High Sens 6, TSH 1.980 03/25/24 06:18: WBC 6.3, RBC 4.57, Hgb 9.7 L, Hct 34.5 L, MCV 75.5 L, MCH 21.2 L, MCHC 28.1 L, RDW Std Deviation 59.1 H, RDW Coeff of Kahlil 21.8 H, Plt Count 243, MPV 10.5, Immature Gran % (Auto) 0.300, Neut % (Auto) 64.4, Lymph % (Auto) 20.0, Hendry % (Auto) 12.0 H, Eos % (Auto) 2.7, Baso % (Auto) 0.6, Absolute Neuts (auto) 4.0, Absolute Lymphs (auto) 1.25, Nucleated RBC % 0, Platelet Estimate A, Polychromasia 1+, Anisocytosis 1+, Ovalocytes 2+, Acanthocytes (Spur) 1+, Sodium 142, Potassium 3.8, Chloride 112 H, Carbon Dioxide 23.0, Anion Gap 7, BUN 18, Creatinine 0.80, Estim Creat Clear Calc 65.59, Est GFR (MDRD) Af Amer 90, Est GFR (MDRD) Non-Af 75, BUN/Creatinine Ratio 22.5 H, Glucose 91, Calcium 8.3 L, Phosphorus 3.8, Magnesium 2.0, Total Bilirubin 0.50, AST 20, ALT 20, Alkaline Phosphatase 144 H, Total Protein 6.2 L, Albumin 2.8 L, Globulin 3.4, Albumin/Globulin Ratio 0.8 L Micro: Microbiology 03/25/24 00:55 Mucosa - Nasopharyngeal Respiratory Panel (PCR) - Final 03/24/24 17:25 Mucosa - Nose SARS-CoV-2, Influenza & RSV (PCR) - Final Radiography Diagnostic Testing: Radiology Impression Chest X-Ray 03/24/24 17:28 IMPRESSION: Small pleural effusion versus focal airspace disease (atelectasis versus infiltrate) at the left base peripherally. Electronically Signed: Josh Davidson MD at 17:53 EST , Knee X-Ray 03/24/24 19:00 IMPRESSION: 1. Small to moderate joint effusion. 2. No acute or healing fracture or malalignment. 3. Tricompartmental osteoarthrosis which is worse/severe at the medial femorotibial compartment. Electronically Signed: Josh Davidson MD at 19:57 EST , Chest CT 03/25/24 00:25 IMPRESSION: Linear atelectasis at the lung bases. No dense consolidation. There is mediastinal lymphadenopathy, nonspecific. Electronically Signed: Cristhian Roger MD at 3:21 EST , Physical Exam Const alert, oriented x3, no apparent distress, average body habitus, healthy appearing and well nourished Constitutional Narrative: Elderly, white female, sitting up in a chair at the bedside, appears comfortable, nontoxic, currently on room air, does get mildly dyspneic with conversation HEENT head/scalp atraumatic and moist oral mucous membranes HEENT Narrative: Edentulous, Mallampati 2, no thrush Head and Scalp: normocephalic Resp normal respiratory effort, no retractions, no use of accessory muscles and clear to auscultation bilaterally Resp Narrative: Wheezing has resolved and no adventitious breath sounds are noticed at this time Auscultation: Negative for rales, rhonchi or wheezes Cardio regular rate, regular rhythm, S1 normal heart sound, S2 normal heart sound, no murmurs, no rub, no gallops and no clicks GI normal to inspection, nondistended, normoactive bowel sounds, soft to palpation and non-tender Extremity no clubbing, cyanosis or edema Extremity Narrative: 2+ pedal and radial pulses, right knee shows changes consistent with osteoarthritis and small joint effusion is noted Neuro oriented x3, moves all extremities and no focal motor deficits Psych affect normal Psych Narrative: Very pleasant, interacts appropriately, eye contact is good Assessment & Plan Assessment/Plan (1) Pneumonia: QUALIFIERS: Pneumonia type: due to unspecified organism Laterality: left Lung location: lower lobe of lung Qualified Code(s): J18.9 - Pneumonia, unspecified organism (2) Generalized weakness: (3) Microcytic anemia: (4) Hypokalemia: (5) Elevated serum creatinine: (6) Hyperglycemia: PLAN: Plan Cough/shortness of breath secondary to community-acquired pneumonia -Respiratory viral panel is negative -COVID/flu/influenza negative -Stop Tamiflu -Continue doxycycline day 1 of 7 -Continue scheduled nebulizers -Add incentive spirometer -Add Acapella -Lasix 40 mg IV x 1 dose -Patient remains on room air at rest and with ambulation at this time however she does get fairly dyspneic with exertion -Low likelihood of PE as patient is on apixaban chronically Hypokalemia -Replaced and resolved Elevated serum creatinine -1.03 on presentation next-baseline is 0.7-0.85 -Resolved Hyperglycemia -Blood sugar on presentation was 165 -Hemoglobin A1c was assessed and found to be 5.3 -No further intervention required R knee osteoarthritis -Continue as needed Tylenol -Recommend outpatient follow-up -Would recommend continued assistive device use to prevent falls Generalized weakness/debility -PT/OT following -Patient did very well utilizing her cane which she has at baseline during physical and Occupational Therapy today -No ongoing needs at discharge per documentation with regards to therapy services Chronic microcytic anemia -Hemoglobin at presentation was 11.2 with a drop to 9.7 today -Repeat at 1300 for stability -Continue home oral iron supplementation -Patient states she is following up as an outpatient with regards to this as long as her hemoglobin stays stable we will continue outpatient follow-up but if she drops will need further inpatient evaluation PAF/HTN -Continue home metoprolol -Continue home verapamil -Continue apixaban History of vertigo -Continue home as needed meclizine GERD -continue PPI Asthma -Hold home inhalers -Restart at discharge -Ongoing outpatient follow-up Seasonal allergies -Continue loratadine -Continue as needed nasal spray DVT prophylaxis -Continue home apixaban CODE STATUS Full code as verified with patient today at the bedside Charges/Coding Visit Charges Inpatient E&M: 61084 Subs Hosp L2
[2024-03-25 13:07] LABS: Hemoglobin 10.5 g/dL (12.0-15.0)
--- NOTE | 2024-03-25 16:19 | CASEMGMT ---
Met with patient to complete HINOJOSA form. HINOJOSA form explained to patient who voiced understanding and signed form. Original form placed in pt?s chart and copy provided to patient. Shameka Cook, Discharge Planning Asst
[2024-03-25] MEDS: Ondansetron 4 MG/2 ML Vial IV (19:14)
[2024-03-25] MEDS: Atorvastatin Calcium 40 MG Tablet PO (21:45)
[2024-03-26 02:03] VITALS: BP 115/76; PULSE 77; RESP 16; TEMP 36.6; O2SAT 95
[2024-03-26] MEDS: 0.9% Saline Lock 10 ML Syringe IV ×2 (02:06→09:53)
[2024-03-26 06:00] VITALS: BMI 28.2
[2024-03-26 06:40] VITALS: PULSE 83; RESP 20
[2024-03-26] MEDS: Budesonide Respules 0.5 MG/2 ML AMPUL.NEB. INHALATION (06:55)
[2024-03-26] MEDS: Albuterol 2.5 MG/3 ML VIAL.NEB. INHALATION ×2 (06:56→13:20)
[2024-03-26 07:27] LABS: Absolute Neutrophil Count 2.7 X10^3/uL (2.0-7.7); Basophil# 0.05 X10^3/uL; Eosinophils% 6.3 % (0-5); Hematocrit 33.9 % (37-47); Hemoglobin 9.7 g/dL (12.0-15.0); Lymphocyte % 25.2 % (19-41); Mean Corp Hgb Conc 28.6 g/dL (32-36); Mean Corpuscular Hgb 21.5 pg (27.0-32.0); Mean Corpuscular Volume 75.2 fL (81-99); Mean Platelet Vol. 10.2 fl (6.2-12.0); Monocyte# 0.46 X10^3/uL; Monocyte% 9.6 % (0-10); NRBC Flagged by Analyzer 0 % (0-5); Neutrophil # 2.74 X10^3/uL (2.7-7.7); Neutrophil % 57.5 % (47-70); POSITIVE MORPHOLOGY YES; Platelet Count 277 K/mm3 (150-450); RBC Distribution Width CV 21.7 % (11.6-14.6); RBC Distribution Width SD 58.7 fl (35.1-43.9); Red Blood Count 4.51 M/mm3 (4.2-5.4); White Blood Count 4.8 K/mm3 (4.4-11.0)
[2024-03-26 07:28] LABS: Differential Indicated SCAN CRITERIA MET
[2024-03-26 07:48] LABS: Anion Gap 8 (5-15); BUN 15 mg/dL (7-18); BUN/Creat Ratio 20.9 RATIO (10-20); Calcium,Total 8.6 mg/dL (8.5-10.1); Chloride 110 mmol/L (98-107); Creatinine, Serum 0.72 mg/dL (0.55-1.02); EST Glomerular Filtration Rate 85 mL/min (>60); Est Glom Filt Rate - Afr Amer 103 mL/min (>60); Estimated Creatinine Clearance 66.66 ml/min; Glucose 93 mg/dL (74-106); Magnesium 2.2 mg/dL (1.6-2.6); Phosphorus 4.2 mg/dL (2.5-4.9); Potassium 3.8 mmol/L (3.5-5.1); Sodium Level 142 mmol/L (136-145)
[2024-03-26 09:16] LABS: Anisocytosis 1+
[2024-03-26 09:17] LABS: Ovalocyte 2+
[2024-03-26 09:18] LABS: Crenated RBC RARE
[2024-03-26 09:38] VITALS: BP 124/64; PULSE 85; RESP 19; TEMP 36.6; O2SAT 93
[2024-03-26] MEDS: APIXABAN 5 MG TABLET PO (09:46)
[2024-03-26 09:52] VITALS: PULSE 85
[2024-03-26] MEDS: Metoprolol Tartrate 25 MG Tablet PO (09:52)
[2024-03-26] MEDS: Loratadine 10 MG Tablet PO (09:52)
[2024-03-26] MEDS: guaiFENesin 10 ML UDC (200MG/10ML) 20 ML PO ×2 (09:52→13:54)
[2024-03-26] MEDS: Benzonatate 100 MG Capsule PO (09:53)
[2024-03-26] MEDS: Pantoprazole Sodium 40 MG Tablet PO (09:53)
[2024-03-26] MEDS: Doxycycline 100 MG in 0.9% Normal Saline (250mL Bag) 250 ML 250 MG IV (09:53)
--- NOTE | 2024-03-26 10:15 | CASEMGMT ---
Addendum entered by Bere Solitario 03/26/24 14:23: Referral sent to [facility] for BSC at this time. Requested to be delivered to pt home. Original Note: CHAPARRITA CM into pt room with hospitalist, pt would like a BSC so she does not need to use the steps to go to the bathroom. Provided pt with a local in network list of DME companies, pt chose [employer]. Pt would like this delivered to her home. Hospitalist aware and will write necessity in her note. Pt denies any further homegoing needs at this time.
[2024-03-26] MEDS: 0.9% Normal Saline (100mL Bag) 100 ML 15 ML IV (10:57)
--- NOTE | 2024-03-26 12:45 | DS.PCM_ITS ---
Providers Date of Admission: 03/24/24 Date of Discharge: 03/26/24 Primary Care Physician: Dr. Valencia Rivera MD Reason For Visit: PNEUMONIA WITH INABILITY TO AMBULATE Diagnosis Discharge Diagnosis (1) Pneumonia: Status: Acute Code(s): J18.9 - Pneumonia, unspecified organism Qualifiers: Pneumonia type: due to unspecified organism Laterality: left Lung location: lower lobe of lung Qualified Code(s): J18.9 - Pneumonia, unspecified organism (2) Generalized weakness: Status: Acute Code(s): R53.1 - Weakness (3) Microcytic anemia: Status: Acute Code(s): D50.9 - Iron deficiency anemia, unspecified (4) Hypokalemia: Status: Acute Code(s): E87.6 - Hypokalemia (5) Elevated serum creatinine: Status: Acute Code(s): R79.89 - Other specified abnormal findings of blood chemistry (6) Hyperglycemia: Status: Acute Code(s): R73.9 - Hyperglycemia, unspecified Medications at Discharge Home Medications epinephrine 0.3 mg/0.3 mL injection, auto-injector 0.3 mg IM X1 ALLERGIC REACTIONS 05/04/13 loratadine 10 mg tablet 10 mg PO DAILY ALLERGIES 05/04/13 albuterol sulfate 90 mcg/actuation aerosol inhaler 2 puff inhalation Q6H PRN Sob &/Or Wheezing 12/26/15 meclizine 25 mg tablet 25 mg PO Q6H PRN Dizziness 03/28/16 fluticasone propionate 50 mcg/actuation nasal spray,suspension 2 spray NASAL DAILY PRN Allergies 07/02/18 albuterol sulfate 2.5 mg/3 mL (0.083 %) solution for nebulization 2.5 mg inhalation Q4H PRN Sob &/Or Wheezing 12/04/18 verapamil 240 mg tablet,extended release 240 mg PO DAILY BP #90 tabs 12/30/19 atorvastatin 40 mg tablet 40 mg PO DAILY cholesterol 11/18/21 metoprolol tartrate 25 mg tablet 25 mg PO BID 30 days #60 tabs 02/20/23 apixaban 5 mg tablet (Eliquis) 5 mg PO BID thinner #180 tabs 08/10/23 fluticasone 100 mcg-salmeterol 50 mcg/dose blistr powdr for inhalation (Advair Diskus) 1 inh inhalation BID PRN shortness of breath 12/19/23 benzonatate 100 mg capsule 100 mg PO BID PRN cough 03/24/24 ferrous sulfate 325 mg (65 mg iron) tablet (FeroSul) 325 mg PO DAILY 03/24/24 pantoprazole 40 mg tablet,delayed release 40 mg PO DAILY stomach 03/24/24 levofloxacin 750 mg tablet 750 mg PO DAILY #5 tabs 03/26/24 Hospital Course Operations None Procedures - (Chest x-ray/right knee x-ray/CT chest) Summary of Care Provided Minutes Spent on Discharge: 40 Hospital Course: Mrs. Bailey is a 74-year-old white female who presents emergency department with [facility] 03/24/2024 with a chief complaint of shortness of breath, cough, and generalized weakness. Patient reports that her symptoms started about 2 days prior to presentation with mild shortness of breath, nonproductive cough, and pleuritic type chest congestion. She reported chills and subjective fever but had no objective data to support this. She also complained of intermittent wheezing. She does have a history of asthma and uses Advair discus and albuterol inhaler. She also has a nebulizer. She stated this was ineffective for her so she came emergency department for further evaluation. She did complain that her left knee felt unstable and it was going to give out on her. She ambulates with a cane at baseline. Was initially thought that her influenza A was positive however on review of data both the PCR and the respiratory viral panel are reporting undetected for influenza A and B as well as other viral pathogen. Vital signs on presentation showed temperature of 98.4, heart rate 66, respiratory was 25 with repeated 16, blood pressure was 129/49 and pulse ox was 94% on room air. CBC showed anemia with hemoglobin 11.2 and it was microcytic. Patient has chronic microcytic anemia and states she has been on iron and has outpatient workup in progress. Repeat hemoglobin on the second day of admission was 9.7 which is more consistent with a baseline she has had as of recently. She did have a monocytosis on her differential. Chemistry panel showed mild hypokalemia and slightly elevated serum creatinine 1.03 with a baseline serum creatinine of 0.7-0.85. Initial troponin was 7 with a delta of 6. Her BNP was slightly elevated at 222.3 with no recent baseline. She never had an echocardiogram and has no signs of heart failure. Chest x-ray was suggestive of small pleural effusion versus focal airspace disease at the left base peripherally. Knee x-ray was performed due to knee pain and demonstrated a small joint effusion with no acute or healing fractures/malalignment and tricompartmental osteoarthritis. CT of the chest was performed and showed mediastinal lymphadenopathy and linear atelectasis at the lung bases with no dense consolidations. Patient was on room air at rest and with ambulation however she was extremely concerned about her weakness that she was not able to go home and take care of herself as she does live alone. Given this she was admitted to the hospital and placed on IV doxycycline, given pulmonary toilet, and Physical and Occupational Therapy was consulted. She never required supplemental oxygen with rest or ambulation. She was not able to produce sputum for culture. She was maintained on IV doxycycline during her hospitalization and we will go ahead and discharge her on Levaquin to finish up antibiotic for another 5 days. Due to her severe knee osteoarthritis for which she does follow with Dr. Tobar, she is in need of a bedside commode as the patient is confined to the first level of her house and her bathroom is upstairs which makes it very difficult for her to get to given her significant knee pain on the right side and the utilization of a quad cane 100% the time with ambulation. Patient already utilizes albuterol at home and we advised her to continue this via her nebulizer on a as needed basis. She was continued to use her incentive spirometer and Acapella at home for the next 7 to 10 days. [id number] antitussives as well as Mucinex were recommended as well. She was advised to follow-up with her orthopedic surgeon to get her knee addressed as it seems like it is functionally becoming more more of a problem for her. Patient does also have chronic microcytic anemia. Her hemoglobin was stable during her hospitalization and she is on iron orally for this at home. She has follow-up pending so no further inpatient workup was performed. She was able to be discharged home on 03/26/2024. Discharge diagnoses: Community-acquired pneumonia Hypokalemia-resolved Elevated serum creatinine-resolved Hyperglycemia-A1c was 5.3 Severe right knee osteoarthritis Generalized weakness/debility Chronic microcytic anemia PAF Hypertension History of vertigo GERD Asthma Seasonal allergies Physical Exam Const alert, oriented x3, no apparent distress, average body habitus, no limitations, healthy appearing and well nourished Constitutional Narrative: Elderly, white female, sitting up in bed watching television, appears comfortable, nontoxic, remains on room air, less dyspnea with conversation General Appearance: cooperative, comfortable, well kempt and well developed HEENT normocephalic, head/scalp atraumatic, hearing grossly normal bilaterally and moist oral mucous membranes HEENT Narrative: Mallampati 2-3, no thrush Eyes EOMs intact bilaterally and conjunctivae normal Eyes Narrative: No scleral icterus Neck supple Neck Narrative: Trachea midline Resp normal respiratory effort, no retractions, no use of accessory muscles and clear to auscultation bilaterally Resp Narrative: Patient with some mild upper airway wheezing but lung gaytan are clear throughout Auscultation: wheezes; Negative for rales or rhonchi Cardio regular rate, regular rhythm, S1 normal heart sound, S2 normal heart sound, no murmurs, no rub, no gallops and no clicks GI normal to inspection, nondistended, normoactive bowel sounds, soft to palpation and non-tender GI Narrative: Obese. Extremity no clubbing, cyanosis or edema Extremity Narrative: 2+ pedal and radial pulses, right knee shows changes consistent with osteoarthritis and small joint effusion is noted Skin skin turgor normal, no jaundice, no petechiae and no mottling Neuro oriented x3, moves all extremities and no focal motor deficits Speech: speech normal Psych affect normal Psych Narrative: Very pleasant, interacts appropriately, eye contact is good Weight / BMI Weight Weight: 79.6 kg Body Mass Index (BMI) 28.2 ABG / Lab / Microbiology Data 03/26/24 06:37 03/26/24 06:37 Laboratory: Laboratory Results - last 24 hr 03/25/24 12:50: Hgb 10.5 L 03/26/24 06:37: WBC 4.8, RBC 4.51, Hgb 9.7 L, Hct 33.9 L, MCV 75.2 L, MCH 21.5 L , MCHC 28.6 L, RDW Std Deviation 58.7 H, RDW Coeff of Kahlil 21.7 H, Plt Count 277, MPV 10.2, Immature Gran % (Auto) 0.400, Neut % (Auto) 57.5, Lymph % (Auto) 25.2, [place] % (Auto) 9.6, Eos % (Auto) 6.3 H, Baso % (Auto) 1.0, Absolute Neuts (auto) 2.7, Absolute Lymphs (auto) 1.20, Nucleated RBC % 0, Anisocytosis 1+, Ovalocytes 2+, Crenated Cell RARE, Sodium 142, Potassium 3.8, Chloride 110 H, Carbon Dioxide 24.0, Anion Gap 8, BUN 15, Creatinine 0.72, Estim Creat Clear Calc 66.66, Est GFR (MDRD) Af Amer 103, Est GFR (MDRD) Non-Af 85, BUN/Creatinine Ratio 20.9 H, Glucose 93, Calcium 8.6, Phosphorus 4.2, Magnesium 2.2 Microbiology: Microbiology 03/25/24 00:55 Mucosa - Nasopharyngeal Respiratory Panel (PCR) - Final 03/24/24 17:25 Mucosa - Nose SARS-CoV-2, Influenza & RSV (PCR) - Final D/C Instructions Discharge Diet: Low fat / Low cholesterol Discharge Activity: Return to Normal Activity and - (Use cane at all times for ambulation to avoid falling) DC O2, CPAP, BIPAP Needs RN Home O2 Qualification: Home O2 Qualification: Is the patient on home oxygen No 03/25/24 10:29 Home O2 Qualification: AT REST 1- Pulse Ox at rest 96 03/25/24 10:29 Home O2 Qualification: WITH AMBULATION 1- Pulse Ox with ambulation 95 03/25/24 10:29 1- Oxygen Flow Rate with 0 03/25/24 10:29 ambulation Home O2 Discharge instructions: No Meaningful Use Info Meaningful Use Meaningful Use Diagnoses (Choose all that apply): None applicable Ischemic Stroke Statin Dosing Therapy Reference: STATIN DOSE THERAPY REFERENCE: * Patients > 75 years receive moderate or high dose statin therapy. * Patients 75 years or YOUNGER should receive HIGH intensity statin dose unless contraindicated. You will be required to document reason for non-treatment if statin daily dose does not meet guidelines. HIGH DOSE STATIN THERAPY DAILY Atorvastatin > than or = to 40 mg Rosuvastatin > than or = to 20 mg Amlodipine + Atorvastatin > than or = to 2.5/40 mg Ezetimibe + Simvastatin 10/80 mg Simvastatin 80mg Discharge Plan Admission Admit Date/Time: 03/24/24 21:45 Primary Reason for Your Visit: Shortness of breath Attending Provider: Smiley Nino Primary Care Provider: Valencia Rivera Consulting Providers: Codey Portillo Instructions Additional Instructions / Restrictions: 1. Would recommend getting it cough medicine and take scheduled Mucinex 1200 mg twice daily for the next 5 to 7 days as you recover 2. You may have cough for some time after you improved clinically from your pneumonia 3. Please continue using your incentive spirometer and Acapella device for the next 7 to 10 days Discharge Orders/Prescriptions Prescriptions: New levofloxacin 750 mg tablet 750 mg PO DAILY Qty: 5 0RF Continued atorvastatin 40 mg tablet 40 mg PO DAILY fluticasone propion-salmeterol [Advair Diskus] 100-50 mcg/dose blister with device 1 inh inhalation BID PRN (Reason: shortness of breath) epinephrine 0.3 MG syringe 0.3 mg IM X1 loratadine 10 MG tablet 10 mg PO DAILY albuterol sulfate 18 GM HFA aerosol inhaler 2 puff inhalation Q6H PRN (Reason: Sob &/Or Wheezing) meclizine 25 MG tablet 25 mg PO Q6H PRN (Reason: Dizziness) fluticasone propionate 1 SPRAY spray,suspension 2 spray NASAL DAILY PRN (Reason: Allergies) albuterol sulfate 2.5 MG/3 ML solution for nebulization 2.5 mg inhalation Q4H PRN (Reason: Sob &/Or Wheezing) metoprolol tartrate 25 mg Tablet 25 mg PO BID 30 Days Qty: 60 0RF ferrous sulfate [FeroSul] 325 mg (65 mg iron) tablet 325 mg PO DAILY benzonatate 100 mg capsule 100 mg PO BID PRN (Reason: cough) pantoprazole 40 mg tablet,delayed release (DR/EC) 40 mg PO DAILY verapamil 240 mg tablet extended release 240 mg PO DAILY Qty: 90 3RF Eliquis 5 mg tablet 5 mg PO BID Qty: 180 2RF Referrals / Follow Up: Valencia Rivera MD [Primary Care Provider] - Within 2 Weeks Disposition Disposition (needs filled in before D/C Order can be placed): Home, Self Care Charges/Coding Visit Charges Inpatient E&M: 50142 Disch Hosp >30min
[2024-03-26 13:50] VITALS: BP 135/85; PULSE 88; RESP 18; TEMP 36.6; O2SAT 97
[2024-03-26] MEDS: Verapamil SR 240 MG Tablet PO (13:51)
[2024-03-26] MEDS: Cholecalciferol (Vit D3) 125 MCG CAPSULE (5,000 UNITS) PO (13:51)
[2024-03-26] MEDS: Ferrous Sulfate 325 MG Tablet PO (13:52)
[2024-03-26 13:54] VITALS: PULSE 88; RESP 19
[2024-03-28 09:36] LABS: Pathologist Review Reviewed
== END 2024-03-26 17:10 | disposition home or self-care (01) ==
LOC: ED 20:15 → MS3 21:55
PROVIDERS: Admitting Provider Internal Medicine; Emergency Provider Emergency Medicine; PCP Internal Medicine; Visit Provider Internal Medicine
DX: J18.9 Pneumonia, unspecified organism (principal); I27.21 Secondary pulmonary arterial hypertension; I48.0 Paroxysmal atrial fibrillation; E87.6 Hypokalemia; Z79.01 Long term (current) use of anticoagulants; D50.9 Iron deficiency anemia, unspecified; Z79.51 Long term (current) use of inhaled steroids; R73.9 Hyperglycemia, unspecified; I10 Essential (primary) hypertension; R59.0 Localized enlarged lymph nodes; K21.9 Gastro-esophageal reflux disease without esophagitis; R53.81 Other malaise; E78.5 Hyperlipidemia, unspecified; E66.9 Obesity, unspecified; J98.11 Atelectasis; R26.89 Other abnormalities of gait and mobility; Z68.30 Body mass index [BMI] 30.0-30.9, adult; J45.909 Unspecified asthma, uncomplicated
CPT/HCPCS: 36415; 71045; 71250; 73562; 80048; 80053; 82728; 83036; 83540; 83550; 83735; 83880; 84100; 84443; 84484; 85018; 85025; 87631; 87633; 93005; 94640; 94668; 94760; 96365; 96366; 96367; 96375; 96376; 97162; 99221; 99285; A4216; G0378; J0696; J1940; J2405

== ENCOUNTER 2025-02-23 14:26 | Observation (INO) | payer MEDICARE, MEDICAID, SELFPAY ==
[2025-02-23 14:32] VITALS: BP 153/86; PULSE 70; RESP 20; TEMP 36.6; O2SAT 97; BMI 32.3
--- NOTE | 2025-02-23 15:10 | EDS_ITS ---
HPI History of Present Illness Chief Complaint: Back Informant: patient Narrative Narrative: 74-year-old female presenting to the emergency room with chief complaint of low back pain. Patient states that for the past 4 to 5 years she has had chronic back pain. She states that recently she discussed this with her doctor and is awaiting a referral to a spine doctor. Patient states that she typically does not take anything for her back pain. She reports that maybe 3 days ago she tripped and injured her right ankle but that healed up and has not had any pain since. Over the weekend she was not experiencing any pain in the low back. Today when she went to get out of bed her back is significantly worse. She states that it took her 10 minutes to get to the bedside commode. She states that she cannot sit up or roll or really do anything without severe pain. She describes it as from the start of her gluteal fold to about 3 or 4 levels above that. She states that she does not have any weakness in the legs or sensory changes. She has not had any difficulty controlling her bowels or bladder's. No fevers. She denies any rash. She is anticoagulated on apixaban for paroxysmal atrial fibrillation. [facility] Medical History Microcytic anemia Obesity (BMI 30.0-34.9) Ambulatory dysfunction Hyperglycemia Ischemic colitis Symptomatic anemia History of cataract Diarrhea Post-menopausal Wears partial dentures History of Clostridium difficile infection Osteoarthritis Osteoarth NOS-up/arm 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 Ambulates with cane Back pain History of hiatal hernia History of stress test Non-smoker Colitis Acute lower gastrointestinal bleeding Osteoporosis Atrial fibrillation Traumatic hematoma of abdominal wall Secondary pulmonary arterial hypertension Paroxysmal atrial fibrillation Essential (primary) hypertension Suspected 2019 novel coronavirus infection (05/19/19) Community acquired pneumonia 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 TIA (transient ischemic attack) Asthma HLD (hyperlipidemia) CVA (cerebral vascular accident) BMI greater than 30 Migraine GERD (gastroesophageal reflux disease) Home Medications ?Medication ?Instructions ?Recorded ?Last Taken ?Type epinephrine 0.3 mg/0.3 mL 0.3 mg IM X1 ALLERGIC REACTI ONS 05/04/13 Unknown History injection, auto-injector loratadine 10 mg tablet 10 mg PO DAILY ALLERGIES 11/0903/24/24 History albuterol sulfate 90 mcg/actuation 2 puff inhalation Q 6H PRN Sob &/Or 12/26/15 09/09/19 History aerosol inhaler Wheezing meclizine 25 mg tablet 25 mg PO Q6H PRN Dizziness 0 03/28/16 05/26/23 History fluticasone propionate 50 2 spray NASAL DAILY PRN Herrera rgies 07/02/18 09/15/21 History mcg/actuation nasal spray,suspension albuterol sulfate 2.5 mg/3 mL 2.5 mg inhalation Q4H MA N Sob &/Or 12/04/18 12/01/18 History (0.083 %) solution for nebulization Wheezing verapamil 240 mg tablet,extended 240 mg PO DAILY BP #9 0 tabs 12/30/19 03/24/24 Rx release atorvastatin 40 mg tablet 40 mg PO DAILY cholesterol 0 11/18/21 03/24/24 History metoprolol tartrate 25 mg tablet 25 mg PO BID 30 days #60 tabs 02/20/23 03/24/24 Rx apixaban 5 mg tablet (Eliquis) 5 mg PO BID thinner #18 0 tabs 08/10/23 03/24/24 Rx fluticasone 100 mcg-salmeterol 50 1 inh inhalation BID PRN shortness 12/19/23 Unknown History mcg/dose blistr powdr for of breath inhalation (Advair Diskus) benzonatate 100 mg capsule 100 mg PO BID PRN cough 03/24/24 History ferrous sulfate 325 mg (65 mg 325 mg PO DAILY 03/24/24 03/24/24 History iron) tablet (FeroSul) pantoprazole 40 mg tablet,delayed 40 mg PO DAILY stoma ch 03/24/24 03/24/24 History release levofloxacin 750 mg tablet 750 mg PO DAILY #5 tabs Unknown Rx Allergy/AdvReac Type Severity Reaction Status Date / Time adhesive tape Allergy Rash Verified 02/23/25 14:31 pepper (genus Capsicum) Allergy Hives Verified 02/23/25 14:31 propoxyphene HCl (From Allergy Rash Verified 02/23/25 14:31 Darvon) sulfamethoxazole (From Allergy Shortness Verified 02/23/25 14:31 Bactrim) of breath trimethoprim (From Bactrim) Allergy Shortness Verified 02/23/25 14:31 of breath venom-honey bee (bee venom Allergy Anaphylaxis Verified 02/23/25 14:31 (honey bee)) venom-wasp (wasp venom) Allergy Anaphylaxis Verified 02/23/25 14:31 Family History Father CAD (coronary artery disease) Brother Heart disease Surgical History History of colonoscopy (11/21/21) history of mastoid tumor resection History of total hysterectomy History of cholecystectomy Social History Smoking Status: Never smoker alcohol intake: current alcohol intake frequency: holidays/special occasions only substance use type: does not use caffeine: Yes Type: tea Number of servings: 2 ROS ROS ED Constitutional Constitutional ED: Denies chills, fever(s) or weight loss Eyes Eyes: Denies change in vision or diplopia ENT ENT ED: Denies ear pain, rhinorrhea or sore throat Cardiovascular Cardiovascular: Denies chest pain, orthopnea, palpitations or racing heartbeat Respiratory/Chest Respiratory/Chest: Denies cough, dyspnea or orthopnea Gastrointestinal Gastrointestinal: Denies abdominal pain, diarrhea, nausea or vomiting Genitourinary Genitourinary ED: Denies dysuria, hematuria or urinary frequency Musculoskeletal Musculoskeletal: Reports back pain; Denies arthralgias or myalgias Integumentary Denies abscess or rash Neurologic Neurologic: Denies headache(s), paresthesias or weakness Psychiatric Psychiatric: Denies anxiety, depression, suicidal ideation or suicidal thoughts Endocrine Endocrinology: Denies polydipsia, polyphagia or polyuria Allergic/Immunologic Allergic/Immunologic ED: Denies mouth swelling, tongue swelling or urticaria EXAM Physical Exam Narrative Exam Narrative: Elderly female laying in the bed. Patient not cannot do any movement without screaming in pain. After screaming in pain she is able to go back and speak normally. She screams when I lightly touch the skin in her clothing in the buttock region. Const Vital Signs: 02/23/25 14:32 02/23/25 16:14 Temperature 97.9 F Temperature Source Oral Pulse Rate 70 57 L Respiratory Rate 20 H 18 Blood Pressure 153/86 H 132/83 H Blood Pressure Mean 108 99 Pulse Ox 97 98 Oxygen Delivery Method Room Air Room Air Positive well nourished, well developed and obese General Appearance ED: well developed and NAD Nutritional Appearance: obese HEENT Reports normocephalic, head/scalp atraumatic and moist mucous membranes Eyes PERRL and EOMs intact bilaterally Neck no lymphadenopathy, supple and no JVD Resp normal respiratory effort and clear to auscultation bilaterally Cardio regular rate, regular rhythm and no murmurs GI normal to inspection, nondistended, normoactive bowel sounds and non-tender Palpation: soft Back/Spine no CVA tenderness Back/Spine Narrative: Limited range of motion secondary to pain I do not appreciate any visible rash or swelling. She is diffusely tender to palpation across the lower lumbar region both paraspinally and in the midline. She has tenderness in the bilateral buttock but states that the left is worse. Extremity normal to inspection General Extremety ED: Negative for edema General Extremity: Negative for edema Neuro oriented x3, CN's II-XII intact bilaterally and no sensory deficits noted Sensorium / Orientation: alert Motor Exam: strength 5/5 throughout Deep Tendon Reflexes: Rt Patellar (L4): 2+, Lt Patellar (L4): 2+, Rt Ankle (S1): 2+ and Lt Ankle (S1): 2+ Deep Tendon Reflexes Back: Rt Patellar (L4): 2+, Lt Patellar (L4): 2+, Rt Ankle (S1): 2+ and Lt Ankle (S1): 2+ Psych mental status grossly normal Mood & Affect: Negative for depressed or tearful Skin no rashes or lesions noted and no wounds MDM MDM MDM Narrative Medical decision making narrative: Differential diagnosis includes but not limited to lumbar myofascial strain muscular spasm fracture lumbar radiculopathy sciatica shingles disc herniation Patient received morphine and Zofran. Basic blood work shows alkaline phosphatase 138 creatinine 0.67 hemoglobin 11.9 platelet count of 299 white blood cell count 5.7. CT lumbar spine was obtained. Please see radiologist read for full details. No acute fracture is noted. Based on the physical exam I do not have suspicion of cauda equina. Patient is unable to care for herself with this pain at home. I will speak with the hospitalist regarding admission History & Record Review Discussion w/independent historian: Patient and Family Additional record(s) reviewed:: Prior ED visit and Prior labs Lab Data Attestation: I reviewed the patient's lab results. Labs: Laboratory Results - last 24 hr 02/23/25 15:20 WBC 5.4 RBC 5.09 Hgb 11.9 L Hct 38.0 MCV 74.7 L MCH 23.4 L MCHC 31.3 L RDW Std Deviation 42.6 RDW Coeff of Kahlil 15.9 H Plt Count 299 MPV 9.8 Immature Gran % (Auto) 0.200 Neut % (Auto) 56.6 Lymph % (Auto) 30.2 [place] % (Auto) 9.5 Eos % (Auto) 2.8 Baso % (Auto) 0.7 Absolute Neuts (auto) 3.0 Absolute Lymphs (auto) 1.62 Nucleated RBC % 0 Sodium 144 Potassium 3.6 Chloride 109 H Carbon Dioxide 26.3 Anion Gap 8 BUN 12 Creatinine 0.67 L Estim Creat Clear Calc 71.09 Est GFR (MDRD) Non-Af 92 BUN/Creatinine Ratio 18.2 Glucose 87 Calcium 9.1 Total Bilirubin 0.61 AST 20 ALT 14 Alkaline Phosphatase 138 H Total Protein 6.4 Albumin 4.0 Globulin 2.4 Albumin/Globulin Ratio 1.7 Radiography Diagnostic Testing: Clinical Impression(s) from Imaging Studies Lumbar Spine CT 02/23/25 15:41 IMPRESSION: L2-3: Findings suggest possible disc extrusion causing spinal stenosis. Mild left foraminal stenosis. L4-5: Disc bulge with possibly high-grade spinal stenosis. Bilateral foraminal stenosis. L3-4: Disc bulge. [id number] left foraminal stenosis. Possible lateral recess stenoses. L5-S1: Disc bulge with possible lateral recess stenoses. Left foraminal stenosis. Leftward and anterolisthesis of L4 on L5 again identified. No pars defect. Spondylosis and levoscoliosis again identified. Other chronic changes. MRI would be of benefit for further assessment of thecal sac and discs, or CT myelogram if there is contraindication to MRI. 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
--- NOTE | 2025-02-23 15:41 | CT_ITS ---
PROCEDURE: SPINE LUMBAR WITHOUT CONTRAST 02/23/2025 REASON FOR EXAM: PAIN AND INJURY TECHNIQUE: Procedure Code: CTSPL Modality: CT Procedure: SPINE LUMBAR WITHOUT CONTRAST Coronal and Sagittal reconstruction series were provided. One or more dose reduction techniques were used (e.g., Automated exposure control, adjustment of the mA and/or kV according to patient size, use of iterative reconstruction technique COMPARISON: Abdomen pelvis CT 01/26/2024. RADIATION DOSE SUMMARY: CTDlvol: 36 mGy DLP: 1576 mGycm FINDINGS: Diffuse lumbar spondylosis and levoscoliosis again identified. Mild leftward listhesis and grade 1 anterolisthesis of L4 on L5 again identified. No pars defect. Clear appearing lung bases. Calcific aortoiliac atherosclerosis. Bilateral renal cysts again identified. No free pelvic fluid. Small sliding-type hiatal hernia again identified. No significant SI joint abnormality. L2-3: Findings suggest possible suboptimally visualized disc extrusion causing spinal stenosis. Disc bulge. Mild left foraminal stenosis. L3-4: Disc bulge. Mild to moderate left foraminal stenosis. Possible bilateral lateral recess stenosis. L4-5: Broad-based disc bulge including into the foramina, causing possibly high- grade spinal stenosis. Bilateral foraminal stenosis. L5-S1: Disc bulge. Possible bilateral lateral recess stenosis. Left foraminal stenosis. Discs and thecal sac are suboptimally assessed on CT. CT/Spine Lumbar without Contrast IMPRESSION: L2-3: Findings suggest possible disc extrusion causing spinal stenosis. Mild l eft foraminal stenosis. L4-5: Disc bulge with possibly high-grade spinal stenosis. Bilateral foraminal stenosis. L3-4: Disc bulge. [id number] left foraminal stenosis. Possible lateral recess stenoses. L5-S1: Disc bulge with possible lateral recess stenoses. Left foraminal stenos is. Leftward and anterolisthesis of L4 on L5 again identified. No pars defect. Spondylosis and levoscoliosis again identified. Other chronic changes. MRI would be of benefit for further assessment of thecal sac and discs, or CT m yelogram if there is contraindication to MRI. Reading Location: [facility]
[2025-02-23 15:53] LABS: Hematocrit 38.0 % (37-47); Hemoglobin 11.9 g/dL (12.0-15.0); Immature Granulocytes Count 0.010 X10^3/uL (0.0-0.0); Mean Corp Hgb Conc 31.3 g/dL (32-36); Mean Corpuscular Volume 74.7 fL (81-99); Mean Platelet Vol. 9.8 fl (6.2-12.0); NRBC Flagged by Analyzer 0 % (0-5); Platelet Count 299 K/mm3 (150-450); RBC Distribution Width CV 15.9 % (11.6-14.6); RBC Distribution Width SD 42.6 fl (35.1-43.9); Red Blood Count 5.09 M/mm3 (4.2-5.4); White Blood Count 5.4 K/mm3 (4.4-11.0)
[2025-02-23 16:14] VITALS: BP 132/83; PULSE 57; RESP 18; O2SAT 98
[2025-02-23 16:17] LABS: AST(SGOT) 20 U/L (<=31); Alanine Aminotransfer ALT/SGPT 14 U/L (<=34); Albumin, Serum 4.0 g/dL (3.4-4.8); Alkaline Phosphatase 138 U/L (35-104); Anion Gap 8 (7-18); BUN 12 mg/dL (4-19); BUN/Creat Ratio 18.2 RATIO (10-20); Calcium,Total 9.1 mg/dL (7.6-11.0); Carbon Dioxide 26.3 mmol/L (20.0-29.0); Chloride 109 mmol/L (96-106); Estimated Creatinine Clearance 71.09 ml/min (50-250); Globulin 2.4 g/dL (2.2-4.2); Glucose 87 mg/dL (70-99); Potassium 3.6 mmol/L (3.5-5.1)
--- NOTE | 2025-02-23 17:12 | PCM.HP.STD ---
HPI - General General Date of Admission: 02/23/25 Date of Service: 02/23/25 Chief Complaint: Severe low back pain/inability ambulate HPI Narrative ROMAIN LOMBARDO, is a 74 F who presented to the emergency department [facility] on 02/23/2025 with chief complaint of low back pain. Patient states she has a history of chronic low back issues and her primary care physician, Dr. Rivera, referred her recently to a back surgeon. She is unfamiliar with surgeons name. She was waiting to hear back for getting and has not yet had any communication regarding this. She stated she woke up this morning and had pretty intense back pain when trying to get up to go to the bathroom. She states she was given a muscle relaxant but is not clear what the name was but it does not appear that she has any at this time. She stated over the weekend she was feeling well. She stated it took about 10 minutes to get to the bedside commode and she was not able to really sit up or roll over or do anything without pretty severe pain. Pain is across very extreme low back/upper buttock region. She states she gets intermittent tingling in her feet she stands for long periods of time but that is not new. She has no other neurological symptoms including weakness, tingling, or new numbness. She denies saddle anesthesia and states her bowel and bladder have been functioning without difficulty. Vital signs on presentation showed a temperature of 97.9, heart rate 70, respiratory 20, blood pressure was 153/86 and pulse ox of 97% on room air. CBC was unremarkable other than chronic microcytic anemia that was mild at 11.9 and stable. Chemistry panel is unremarkable. Liver functions are normal. A CT of her lumbar spine was performed and showed extensive changes consistent with degenerative disc disease and degenerative joint disease causing stenosis both foraminal and spinal. No acute findings were noted that were concerning of emergent needs or further imaging in the acute setting. She will be admitted to the medical floor. Length of stay is anticipated to be less than 2 midnights. She be admitted for pain control. Encourage outpatient follow-up with orthopedic surgery as per referral noted above. [facility] Medical History Microcytic anemia Obesity (BMI 30.0-34.9) Ambulatory dysfunction Hyperglycemia Ischemic colitis Symptomatic anemia History of cataract Diarrhea Post-menopausal Wears partial dentures History of Clostridium difficile infection Osteoarthritis Osteoarth NOS-up/arm 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 Ambulates with cane Back pain History of hiatal hernia History of stress test Non-smoker Colitis Acute lower gastrointestinal bleeding Osteoporosis Atrial fibrillation Traumatic hematoma of abdominal wall Secondary pulmonary arterial hypertension Paroxysmal atrial fibrillation Essential (primary) hypertension Suspected 2019 novel coronavirus infection (05/19/19) Community acquired pneumonia On amiodarone therapy 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 TIA (transient ischemic attack) Asthma HLD (hyperlipidemia) CVA (cerebral vascular accident) BMI greater than 30 Migraine GERD (gastroesophageal reflux disease) Home Medications ?Medication ?Instructions ?Recorded ?Last Taken ?Type epinephrine 0.3 mg/0.3 mL 0.3 mg IM X1 ALLERGIC REACTIONS 05/04/13 Unknown History injection, auto-injector albuterol sulfate 90 mcg/actuation 2 puff inhalation Q6H PRN Sob &/Or 12/26/15 09/09/19 History aerosol inhaler Wheezing meclizine 25 mg tablet 25 mg PO Q6H PRN Dizziness 03/28/16 05/26/23 History fluticasone propionate 50 2 spray NASAL DAILY PRN Allergies 07/02/18 09/15/21 History mcg/actuation nasal spray,suspension albuterol sulfate 2.5 mg/3 mL 2.5 mg inhalation Q4H PRN Sob &/Or 12/04/18 12/01/18 History (0.083 %) solution for nebulization Wheezing verapamil 240 mg tablet,extended 240 mg PO DAILY BP #90 tabs 12/30/19 03/24/24 Rx release atorvastatin 40 mg tablet 40 mg PO DAILY cholesterol 11/18/21 03/24/24 History metoprolol tartrate 25 mg tablet 25 mg PO BID 30 days #60 tabs 02/20/23 03/24/24 Rx apixaban 5 mg tablet (Eliquis) 5 mg PO BID thinner #180 tabs 08/10/23 03/24/24 Rx fluticasone 100 mcg-salmeterol 50 1 inh inhalation BID PRN shortness 12/19/23 Unknown History mcg/dose blistr powdr for of breath inhalation (Advair Diskus) benzonatate 100 mg capsule 100 mg PO BID PRN cough 03/24/24 03/24/24 History pantoprazole 40 mg tablet,delayed 40 mg PO DAILY stomach 03/24/24 03/24/24 History release cetirizine 10 mg tablet (Allergy 10 mg PO DAILY allergries 02/23/25 Unknown History Relief (cetirizine)) Allergy/AdvReac Type Severity Reaction Status Date / Time adhesive tape Allergy Rash Verified 02/23/25 14:31 pepper (genus Capsicum) Allergy Hives Verified 02/23/25 14:31 propoxyphene HCl (From Allergy Rash Verified 02/23/25 14:31 Darvon) sulfamethoxazole (From Allergy Shortness Verified 02/23/25 14:31 Bactrim) of breath trimethoprim (From Bactrim) Allergy Shortness Verified 02/23/25 14:31 of breath venom-honey bee (bee venom Allergy Anaphylaxis Verified 02/23/25 14:31 (honey bee)) venom-wasp (wasp venom) Allergy Anaphylaxis Verified 02/23/25 14:31 Family History Father CAD (coronary artery disease) Brother Heart disease Surgical History History of colonoscopy (11/21/21) history of mastoid tumor resection History of total hysterectomy History of cholecystectomy Social History Smoking Status: Never smoker alcohol intake: current alcohol intake frequency: holidays/special occasions only substance use type: does not use caffeine: Yes Type: tea Number of servings: 2 ROS Constitutional Constitutional: Denies anorexia, change in weight, chills, fatigue, fever(s), malaise, night sweats, weakness or other Eyes Eyes: Denies blurry vision, change in eye color, change in vision, discharge from eye(s), double vision, erythema, eye pain, loss of vision or other ENT HEENT: Denies abnormal hearing, dysphagia, ear pain, epistaxis, headache(s), hearing loss, nasal congestion, nasal discharge, post nasal drip, sinus pressure, sore throat or other Cardiovascular Cardiovascular: Denies chest pain, claudication, dyspnea on exertion, edema, lightheadedness, orthopnea, palpitations, paroxysmal nocturnal dyspnea, rapid heart rate, syncope or other Respiratory/Chest Respiratory/Chest: Denies cough, dyspnea, excessive phlegm production, hemoptysis, productive cough, shortness of breath at rest, shortness of breath with exertion, wheezing or other Gastrointestinal Gastrointestinal: Denies abdominal pain, coffee ground emesis, constipation, diarrhea, dyspepsia, hematemesis, hematochezia, loose stools, melena, nausea, vomiting or other Genitourinary Genitourinary: Denies burning urination, difficulty urinating, dysuria, hematuria, nocturia, urinary frequency, urinary hesitancy, urinary incontinence, urinary urgency or other Musculoskeletal Musculoskeletal: Reports back pain Neurologic Neurologic: Reports tingling and other Details: Currently inability ambulate due to back pain Psychiatric Psychiatric: Denies anxiety, depression, homicidal ideation, suicidal ideation or other Endocrine Endocrinology: Denies change in body appearance, cold intolerance, excessive sweating, heat intolerance, polydipsia, polyuria or other Hematologic/Lymphatic Hematologic/Lymphatic: Denies anemia, easy bleeding, easy bruising, lymphadenopathy or other Allergic/Immunologic Allergic/Immunologic: Denies rhinitis, hives, eczemia, asthma or other Patient's Goals Of Care . What would you like to achieve or improve as a result of your hospital stay?: Decreased pain and improve mobility Vital Signs Vital Signs Vital Signs: 02/23/25 14:32 02/23/25 16:14 Temperature 97.9 F Temperature Source Oral Pulse Rate 70 57 L Respiratory Rate 20 H 18 Blood Pressure 153/86 H 132/83 H Blood Pressure Mean 108 99 Pulse Ox 97 98 Oxygen Delivery Method Room Air Room Air Weight Weight: 90.8 kg Body Mass Index (BMI) 32.3 Physical Exam Const alert, oriented x3, no apparent distress, healthy appearing and well nourished; Negative for average body habitus Constitutional Narrative: Obese, elderly, white female, lying on her back flat in bed, daughter at bedside, appears uncomfortable with movement but comfortable with lying still, nontoxic HEENT normocephalic, head/scalp atraumatic, hearing grossly normal bilaterally and moist oral mucous membranes HEENT Narrative: Mallampati 3, no thrush Eyes EOMs intact bilaterally and conjunctivae normal Eyes Narrative: No scleral icterus Neck supple Neck Narrative: Trachea midline Resp normal respiratory effort, no retractions, no use of accessory muscles and clear to auscultation bilaterally Auscultation: Negative for crackles, rhonchi or wheezes Cardio regular rate, regular rhythm, S1 normal heart sound, S2 normal heart sound, no murmurs, no rub, no gallops and no clicks GI normal to inspection, nondistended, normoactive bowel sounds, soft to palpation and non-tender Back/Spine Back/Spine Narrative: Tenderness with palpation to the left paraspinal and upper buttock musculature, no palpated step-offs or deviations Extremity no clubbing, cyanosis or edema Extremity Narrative: 2+ pedal pulse, trace left lower extremity edema, AFO in place for left lower extremity foot drop Neuro moves all extremities and no focal motor deficits Neuro Narrative: No sensory deficits Speech: speech normal Psych affect normal Psych Narrative: Extremely pleasant, interacts appropriately Results Lab / Micro Data 02/23/25 15:20 02/23/25 15:20 Labs: Laboratory Results - last 24 hr 02/23/25 15:20: WBC 5.4, RBC 5.09, Hgb 11.9 L, Hct 38.0, MCV 74.7 L, MCH 23.4 L, MCHC 31.3 L, RDW Std Deviation 42.6, RDW Coeff of Kahlil 15.9 H, Plt Count 299, MPV 9.8, Immature Gran % (Auto) 0.200, Neut % (Auto) 56.6, Lymph % (Auto) 30.2, Prentiss % (Auto) 9.5, Eos % (Auto) 2.8, Baso % (Auto) 0.7, Absolute Neuts (auto) 3.0, Absolute Lymphs (auto) 1.62, Nucleated RBC % 0, Sodium 144, Potassium 3.6, Chloride 109 H, Carbon Dioxide 26.3, Anion Gap 8, BUN 12, Creatinine 0.67 L, Estim Creat Clear Calc 71.09, Est GFR (MDRD) Non-Af 92, BUN/Creatinine Ratio 18.2, Glucose 87, Calcium 9.1, Total Bilirubin 0.61, AST 20, ALT 14, Alkaline Phosphatase 138 H, Total Protein 6.4, Albumin 4.0, Globulin 2.4, Albumin/Globulin Ratio 1.7 Imaging Radiology Impression Lumbar Spine CT 02/23/25 15:41 IMPRESSION: L2-3: Findings suggest possible disc extrusion causing spinal stenosis. Mild left foraminal stenosis. L4-5: Disc bulge with possibly high-grade spinal stenosis. Bilateral foraminal stenosis. L3-4: Disc bulge. [id number] left foraminal stenosis. Possible lateral recess stenoses. L5-S1: Disc bulge with possible lateral recess stenoses. Left foraminal stenosis. Leftward and anterolisthesis of L4 on L5 again identified. No pars defect. Spondylosis and levoscoliosis again identified. Other chronic changes. MRI would be of benefit for further assessment of thecal sac and discs, or CT myelogram if there is contraindication to MRI. [facility] Assessment & Plan Assessment/Plan (1) Intractable low back pain: (2) DDD (degenerative disc disease), lumbar: (3) Debility: (4) Inability to walk: PLAN: Plan Intractable low back pain with inability ambulate secondary to acute on chronic DDD with acute flare - CT of the lumbar spine on presentation showed multilevel degenerative disc disease with possible disc extrusion causing spinal stenosis at L2-L3, disc bulge with possible high-grade spinal stenosis at L4-L5, disc bulge with mild to moderate left foraminal stenosis at L3-L4 with possible lateral recess stenosis and disc bulge with possible lateral recess stenosis and left foraminal stenosis L5-S1, leftward anterolisthesis on L4 out of L5 which is chronic with no pars defect - No neurological changes or bowel bladder symptoms/saddle anesthesia so we will defer MRI for outpatient follow-up - Would refer to Ortho and/or pain management at discharge - Schedule Tylenol thousand every 8 - Celebrex 100 mg p.o. twice daily and continue home PPI for GI prophylaxis - Zanaflex 2 mg every 8 hours as needed - Lidocaine patch - K-pad for comfort - As needed opiates with oxycodone 5 mg every 4 hours as needed - Bowel regimen as ordered - Will try to avoid IV narcotics if possible Inability ambulate/debility - Secondary above - Management per above - PT/OT consultation -Case management/social work consultation for assistance with discharge planning Left foot drop - Patient had his AFO - Chronic issue and has been ongoing for 7 years R knee osteoarthritis -Continue as needed Tylenol -Recommend outpatient follow-up -Would recommend continued assistive device use to prevent falls Chronic microcytic anemia - Hemoglobin stable and at baseline on presentation PAF/essential HTN -Continue home metoprolol -Continue home verapamil -Continue apixaban Hyperlipidemia - Continue home statin History of vertigo -Continue home as needed meclizine GERD -continue PPI Asthma -Hold home inhalers -Restart at discharge -Ongoing outpatient follow-up Seasonal allergies -Continue loratadine -Continue as needed nasal spray DVT prophylaxis -Continue home apixaban CODE STATUS - Full code was verified at the time of admission Charges/Coding Visit Charges Inpatient E&M: 73890 Init Hosp L2
[2025-02-23 17:14] VITALS: BP 152/67; PULSE 62; RESP 18; TEMP 36.6; O2SAT 97
--- OUTSIDE RECORDS SUMMARY | 2025-02-23 20:03 | XMS RPT_ITS | CCD ---
Author Organization [facility] Care Team Providers Care Cardiology Fellow Name Role Phone Harman Summers Unavailable Unavailable Harman Summers Unavailable Unavailable Paul Reynolds Unavailable Unavailable Erik Reynolds MD Primary Care Provider Dr. Paul Reynolds Primary Care Provider MD Prakash Stephens Emergency Provider Dr. Agustín Viramontes Admit Provider Dr. Agustín Viramontes Attending Provider Dr. Agustín Viramontes Other Provider Dr. Mariangel Bose Other Provider Bassam GALLEGOS, MADELINE Carmona Attending Provider Dr. Mariangel Bose Attending Provider Dr. Paul Reynolds Referring Provider Vinod ETIENNE, PA Ximena Barcenas Attending Provider Dr. Destin Damico Attending Provider Dr. Dwight Ruff Emergency Provider Dr. Jose A Hill Admit Provider Dr. Jose A Hill Attending Provider Dr. Jose A Hill Other Provider Friend, Dr. Petersen Other Provider Friend, Dr. Petersen Attending Provider Dr. Mariangel Bose Referring Provider Erik Reynolds MD Primary Care Provider Erik Reynolds MD Primary Care Provider Dr. Paul Reynolds Primary Care Provider Dr. Mariangel Bose Attending Provider Dr. Mariangel Bose Other Provider Dr. Destin Damico Referring Provider 1([facility])-[phone] Fatemeh Rogers Primary Care Provider Dr. Fatemeh Rogers Referring Provider 1([facility])[phone] Dr. Paul Reynolds Primary Care Provider Dr. Paul Reynolds Referring Provider 1([facility])[phone] JAIMIE Salter Attending Provider Fatemeh Rogers MD Primary Care Provider Dr. Paul Reynolds Primary Care Provider Dr. Dwight Ruff Emergency Provider Dr. Jose A Hill Admit Provider Dr. Jose A Hill Attending Provider 1([facility])[phone] Dr. Jose A Hill Other Provider 1([facility])[phone] Destin Damico Attending Provider [phone] Mariangel Bose Referring Provider Dr. Nicola Cowan Other Provider Dr. Mariangel Bose Attending Provider Dr. Mariangel Bose Other Provider Dr. Nicola Cowan Attending Provider 1([facility]) [phone] Dr. Paul Reynolds Referring Provider 1([facility])[phone] Dr. Destin Damico Referring Provider 1([facility])-[phone] JAIMIE Salter Attending Provider Dr. Fatemeh Rogers Primary Care Provider Dr. Fatemeh Rogers Referring Provider Fatemeh Rogers MD Primary Care Provider Dr. Paul Reynolds Primary Care Provider Dr. Destin Damico Attending Provider 1([facility])[phone] Paul Reynolds Referring Provider Dr. Nicola Cowan Attending Provider 1([facility])[phone] Dr. Nicola Cowan Other Provider 1([facility])[phone] Paul Reynolds Referring Provider 1([facility])[phone] Camryn, Dr. Petersen Attending Provider 1([facility])[phone] Dr. Fatemeh Rogers Primary Care Provider 1([facility] )[phone] Dr. Fatemeh Rogers Primary Care Provider Nicole, Dr. Fatemeh Moran Referring Provider Dr. Destin Damico Attending Provider Dr. Destin Damico Referring Provider Dr. Destin Damico Other Provider Dr. Fatemeh Rogers Primary Care Provider Dr. Destin Damico Attending Provider 1([facility])[phone] Destin Damico Referring Provider 1([facility])[phone] Salomón Chambers Unavailable PHYSICIAN, NONE Attending Unavailable PHYSICIAN, NONE Primary Care Unavailable Dr. Fatemeh Rogers Primary Care Provider Dr. Stevan Jean Provider Dr. Agustín Viramontes Admit Provider Dr. Agustín Viramontes Attending Provider Dr. Agustín Viramontes Other Provider Dr. Destin Damico Attending Provider Dr. Destin Damico Referring Provider Dr. Agustín Viramontes Referring Provider Dr. Dwight Ruff Emergency Provider Dr. Nilo Stroud Admit Provider Dr. Nilo Stroud Attending Provider Dr. Nilo Stroud Other Provider Dr. Joesph Aleman Attending Provider Dr. Joesph Aleman Other Provider Dr. Maxine Griffin Attending Provider Elias, Dr. Maxine Carter Other Provider Fatemeh Rogers MD Primary Care Provider Erik Reynolds MD Primary Care Provider Mullins COMPUTER NETWORK ENGINEER.FINANCIAL SALES CONSULTANT, Faith Unavailable Willa COMPUTER NETWORK ENGINEER.PAPER CARRIER, Basilio Unavailable Willa COMPUTER NETWORK ENGINEER.PAPER CARRIER, Basilio Unavailable Willa COMPUTER NETWORK ENGINEER.PAPER CARRIER, Basilio Unavailable Mullins COMPUTER NETWORK ENGINEER.FINANCIAL SALES CONSULTANT, Faith Unavailable MULLINS, FAITH Referring Unavailable TALAMPAS, FATEMEH D Primary Care Unavailable TALAMPAS, FATEMEH D Primary Care Unavailable MULLINS, FAITH Attending Unavailable WILLA, BASILIO Referring Unavailable TALAMPAS, FATEMEH D Primary Care Unavailable WILLA, BASILIO Referring Unavailable TALAMPAS, FATEMEH D Primary Care Unavailable WILLA BASILIO Attending Unavailable TALAMPAS, FATEMEH D Primary Care Unavailable TALAMPAS, FATEMEH D Primary Care Unavailable CHLOENYLAZ M Referring Unavailable TALAMPAS, FATEMEH D Primary Care Unavailable CHLOEERIN M Referring Unavailable TALAMPAS, FATEMEH D Primary Care Unavailable CHLOE, ERIN M Referring Unavailable TALAMPAS, FATEMEH D Primary Care Unavailable ERIN CORONA M Attending Unavailable TALAMPAS, FATEMEH D Primary Care Unavailable MULLINS, FAITH Attending Unavailable MULLINS, FAITH Attending Unavailable TERRYAMPAS, FATEMEH D Primary Care Unavailable Talampas, Fatemeh D Primary Care Unavailable aHrpreet RIDER TICKET WORKER, Faith Attending Unavailable Harpreet RIDER TICKET WORKER, Faith Referring Unavailable Nicole, Fatemeh D Primary Care Unavailable Francesca Portillo Admitting Unavailable Francesca Portillo Consulting Unavailable Francesca Portillo Attending Unavailable Smiley Nino Attending Unavailable Smiley Nino Consulting Unavailable Nicole Fatemeh Luisa Primary Care Unavailable Alessandro Nair Attending UnavailSmiley Beyer Attending Unavailable Terryampbossman, Fatemeh D Primary Care Unavailable Francesca Portillo Admitting Unavailable Francesca Portillo Consulting Unavailable Allergies Allergy Classification Reported Allergen(s) Allergy Type Date of Onset Reaction(s) Facility Adhesive Tape (1 source) Adhesive Tape Substance Allergy 12-06-19 17 [facility] Work Phone: Opioid Agonists (1 source) Propoxyphene Drug Allergy 05-15-19 08 [facility] Work Phone: Sulfamethoxazole / Trimethoprim (1 source) Sulfamethoxazole / Trimethoprim Drug Allergy 12-30-19 15 Anaphylaxis [facility] (1 source) propoxyphene; Translations: [Darvon] Drug Allergy [facility] Repository (1 source) sulfamethoxazole / trimethoprim; Translations: [Bactrim] Drug Allergy [facility] Repository (20 sources) Adhesive Tape; Translations: [ADHESIVE TAPE (ROSINS)] Allergy to substance 12-06-19 17 [facility] Work Phone: (20 sources) predniSONE Drug Allergy 03-07-19 17 GI Upset [facility] (20 sources) Propoxyphene; Translations: [PROPOXYPHENE HCL] Drug Allergy 05-15-19 08 [facility] Work Phone: (20 sources) Sulfamethoxazole / Trimethoprim; Translations: [SULFAMETHOXAZOLE-T RIMETHOPRIM] Drug Allergy 12-30-19 15 Anaphylaxis [facility] (20 sources) Bee Sting; Translations: [BEE STING] Allergy to substance 08-29-19 13 Anaphylaxis [facility] Work Phone: (20 sources) Influenza Virus Vaccines; Translations: [INFLUENZA VIRUS VACCINES] Drug Intolerance 01-08-20 19 Other: See Comments [facility] Work Phone: (20 sources) Adhesive Tape; Translations: [adhesive tape] Allergy to substance 06-11-19 22 Rash [facility] (20 sources) Sulfamethoxazole Drug Allergy 06-11-19 22 Shortness of breath [facility] (20 sources) Trimethoprim Drug Allergy 06-11-19 22 Shortness of breath [facility] (20 sources) venom-honey bee Allergy to substance 06-11-19 22 Anaphylaxis [facility] (20 sources) venom-wasp Allergy to substance 06-11-19 22 Anaphylaxis [facility] (10 sources) anything that stings Allergy to substance 06-11-19 22 Anaphylaxis [facility] Work Phone: (10 sources) banana peppers Allergy to substance 06-11-19 22 [facility] Work Phone: (17 sources) FIBERGLASS Allergy to substance 06-11-19 22 Shortness of breath [facility] (20 sources) Influenza Virus Vaccines Drug Intolerance 01-08-20 19 Other: See Comments [facility] Work Phone: (20 sources) pepper (genus Capsicum); Translations: [PEPPER (GENUS CAPSICUM)] Allergy to substance 12-07-19 22 [facility] (1 source) Propoxyphene Drug Allergy 03-24-19 25 [facility] Repository (1 source) Sulfamethoxazole Drug Allergy 03-24-19 25 [facility] Repository (1 source) Trimethoprim Drug Allergy 03-24-19 25 [facility] Repository (1 source) venom-honey bee Drug allergy (disorder) 03-24-19 25 [facility] Repository (1 source) venom-wasp Drug allergy (disorder) 03-24-19 25 [facility] Repository (1 source) pepper (genus Capsicum) Drug allergy (disorder) 03-24-19 25 [facility] Repository Medications Current Medications Medication Drug Class(es) Dates Sig (Normalized) Sig (Original) [id number] 200 actuat albuterol 0.09 mg/actuat metered dose inhaler (20 sources) beta2-Adrenergic Agonist Start: 07-04-2023 take 2 puff(s) by inhalation every six hours as needed albuterol HFA (PROVENTIL HFA, VENTOLIN HFA) 90 mcg/actuation inhaler Indications: Mild persistent asthma without complication (HCC) Inhale 2 Puffs as instructed every 6 [...] 3 Inhaler 3 02/06/2019 08/16/2020 Discontinued Start: 12-04-2018 take 2.5 mg by inhal ation every four hours Albuterol Sulfate Active 2.5 MG INHALATION Q4H December 04, 2018 12:00am Start: 03-22-2016 End: 12-22-2021 albuterol (PROVENTIL) 2.5 mg /3 mL (0.083 %) nebulizer solution Indications: Mild intermittent asthma without complication (HCC) Use 3 mL via nebulizer every 4 hours as needed for wheezing/shortness of breath. Use over 5-15minutes. 90 mL 3 12/22/2021 Active Start: 12-26-2015 take 1 puff(s) by in halation every six hours as needed Albuterol Sulfate Active 2 PUFF IH EVERY 6 HOURS NEEDED December 26, 2015 11:50am Start: 12-26-2015 take 1 puff(s) by in halation every six hours Albuterol Sulfate Active 2 PUFF INHALATION EVERY 6 HOURS December 26, 2015 12:00am Start: 12-26-2015 take 1 puff(s) by in halation every six hours as needed Albuterol Sulfate Active 2 PUFF IH EVERY 6 HOURS NEEDED December 25, 2015 11:00pm Start: 12-26-2015 take 1 puff(s) by in halation every six hours as needed Albuterol Sulfate Active 2 PUFF IH EVERY 6 HOURS NEEDED December 26, 2015 12:00am Comment on above: Use 3 mL via nebuliz er every 4 hours as needed for Wheezing/Shortness of Breath. Use over 5-15minutes. INHALE 2 PUFFS IN STRUCTED EVERY 6 HOURS NEEDED. amoxicillin 875 mg / clavulanate 125 mg oral tablet (1 source) Penicillin-class Antibacterial Start: End: take 1 tablet by mouth twice daily amoxicillin-clavula angel acid (AUGMENTIN) 875-125 mg per tablet Take 1 tablet by mouth twice daily for 7 days. 14 tablet 0 09/07/2022 09/14/2022 Active Comment on above: Take 1 tablet by naveen th twice daily for 7 days. apixaban 5 mg oral tablet (20 sources) Factor Xa Inhibitor Start: 019 End: take 1 tablet by mouth twice daily apixaban (ELIQUIS) 5 mg tab(s) Take 1 tablet by mouth two times a day. 180 tablet 3 06/30/2024 Active Comment on above: Take 5 mg by mouth t wice daily. Will start when delivered atorvastatin 40 mg oral tablet (20 sources) HMG-CoA Reductase Inhibitor Start: End: take 1 tablet by mouth once daily atorvastatin (LIPITOR) 40 mg tablet Indications: TIA (transient ischemic attack) , Hyperlipidemia, mixed Take 1 tablet by mouth once daily. 90 tablet 3 06/30/2024 Active Start: 12-29-2019 End: 12-22-2021 atorvastatin (LIPITOR) 40 mg tablet Indications: TIA (transient ischemic attack) TAKE 1 TABLET EVERY DAY 90 tablet 3 12/29/2019 12/14/2020 Discontinued Start: 07-02-2018 End: 11-18-2021 take 40 mg by mouth once daily Atorvastatin Discontinu ed 40 MG PO DAILY July 02, 2018 12:00am November 18, 2021 9:42am Comment on above: Take 1 tablet by [...] as needed. 30 capsule 02/27/2023 Active Start: 02-10-2019 End: 05-26-2023 take 200 mg by mouth three times daily Benzonatate Discontinued 200 MG PO THREE TIMES A DAY April 26, 2019 12:03pm May 26, 2023 4:01pm Start: 02-06-2019 End: 04-11-2022 take 2 capsules by mouth every eight hours as needed benzonatate (TESSALON PERLES) 100 mg capsule Take 2 capsules by mouth three times daily as needed. 90 capsule 02/06/2019 04/11/2022 Discontinued Comment on above: Take 2 capsules by m outh three times daily as needed. Take 2 capsules by m outh three times a day as needed. cetirizine hydrochloride 10 mg oral tablet (3 sources) Histamine-1 Receptor Antagonist Start: 07-17-19 End: 10-17-19 take 1 tablet by mouth once daily cetirizine (ZYRTEC) 10 mg tablet Take 1 tablet by mouth once daily. 90 tablet 3 10/16/2024 Active colestipol hydrochloride 1000 mg oral tablet (20 sources) Bile Acid Sequestrant Start: 10-26-19 colestipol (COLESTID) 1 gram tablet Take 1 tablet by mouth as needed. 10/25/2022 Active Comment on above: Take by mouth. Take 1 tablet by naveen as needed. dicyclomine hydrochloride 10 mg oral capsule (20 sources) Anticholinergic Start: 02-03-20 take 10 mg by mouth twice daily Dicyclomine Active 10 MG PO TWICE A DAY February 02, 2022 1:00am Start: 09-23-2021 End: 11-18-2021 take 10 mg by mouth twice daily Dicyclomine Discontinued 10 MG PO TWICE A DAY September 23, 2021 12:00am November 18, 2021 9:43am [id number] 0.3 ml EPINEPHrine 1 mg/ml auto-injector (20 sources) alpha-Adrenergic Agonist, beta-Adrenergic Agonist, Catecholamine Start: 08-22-2023 EPINEPHrine (EPIP EN) 0.3 mg/0.3 mL auto-injector Inject 0.3 ml intramuscular as needed. 2 Each 1 08/22/2023 Active Start: 02-06-2019 End: 08-22-2023 EPINEPHrine (AUVI-Q) 0.3 mg/ 0.3 mL auto-injector Indications: Bee sting allergy Inject 0.3 mL intramuscularly as needed. 2 Each 3 02/06/2019 07/04/2023 Discontinued Start: 05-04-2013 inject 0.3 mg by int ramuscular injection once Epinephrine Active 0.3 MG IM ONE TIME May 04, 2013 1:00am Comment on above: Inject 0.3 mL intram [...] eye four times daily for 7 days. ferrous sulfate 325 mg oral tablet (10 sources) Start: 03-17-2024 End: 07-23-2024 take 1 tablet by mouth once daily ferrous sulfate 325 mg (65 mg iron) tablet Indications: Anemia, unspecified type Take 1 tablet by mouth once daily. 30 tablet 5 07/23/2024 Active Start: 02-14-2024 End: 02-29-2024 take 1 tablet by mouth once daily ferrous sulfate 325 mg (65 mg iron) tablet Indications: Anemia, unspecified type Take 1 tablet by mouth once daily. 30 tablet 02/14/2024 02/29/2024 Discontinued fluticasone propionate 0.05 mg/actuat metered dose nasal spray (20 sources) Corticosteroid Start: 02-06-2019 End: 03-19-2023 take 2 spray(s) nasal route once daily fluticasone (FLONASE) 50 mcg/actuation nasal spray Indications: Environmental allergies Use 2 Sprays in each nostril once daily. 3 Each 3 03/19/2023 Active Start: 07-02-2018 Fluticasone Pr opionate Active 2 SPRAY NASAL DAILY July 02, 2018 12:00am Comment on above: Use 2 Sprays in each nostril once daily. fluticasone / salmeterol (20 sources) Corticosteroid, beta2-Adrenergic Agonist Start: 06-08-2023 take 1 puff(s) by mouth twice daily fluticasone-salmeterol (ADVAIR DISKUS) 100-50 mcg/dose inhaler Indications: Mild persistent asthma with acute exacerbation (HCC) Inhale 1 Puff as instructed two times a day. RINSE AND GARGLE MOUTH WITH WATER AFTER EACH USE. 180 Each 3 06/08/2023 Active Start: 06-08-2023 take 1 puff(s) by mo uth twice daily fluticasone-salmeterol (ADVAIR DISKUS) 100-50 mcg/dose inhaler Indications: Mild persistent asthma with acute exacerbation Inhale 1 Puff as instructed two times a day. RINSE AND GARGLE MOUTH WITH WATER AFTER EACH USE. 180 Each 06/08/2023 Active Start: 02-27-2023 fluticasone-sa lmeterol (ADVAIR [...] Start: 06-30-2022 take 1 puff(s) by mo ut twice daily fluticasone-salmeterol (ADVAIR DISKUS) 100-50 mcg/dose [...] Start: 08-16-2020 take 1 puff(s) by mo [facility] twice daily fluticasone-salmeterol (ADVAIR DISKUS) 100-50 mcg/dose inhaler Indications: Mild persistent asthma with acute exacerbation Inhale 1 Puff as instructed twice daily. RINSE AND GARGLE MOUTH WITH WATER AFTER EACH USE. 180 Each 0 08/16/2020 Active Start: 08-16-2020 take 1 puff(s) by mo [facility] twice daily fluticasone-salmeterol (ADVAIR DISKUS) 100-50 mcg/dose [...] with food.) for up to 5 days. loratadine 10 mg oral tablet (20 sources) Start : 05-04 End: 06-30 take 1 tablet by mouth once daily loratadine (CLARITIN) 10 mg tablet Indications: Environmental allergies Take 1 tablet by mouth once daily. 06/30/2022 Active Comment on above: Take 1 tablet by naveen th once daily. meclizine hydrochloride 25 mg oral tablet (20 sources) Antiemetic Start : 03-28 take 1 tablet by mouth every six hours as needed for dizziness meclizine (ANTIVERT) 25 mg tab Indications: Benign paroxysmal positional vertigo, unspecified laterality Take 1 tablet by mouth every 6 hours as needed (dizziness). 90 tablet 02/06/2019 Active Comment on above: Take 1 tablet by naveen th every 6 hours as needed (dizziness). methylPREDNISolone (20 sources) Corticosteroid Start : 11-16 End: 11-22 [...] food. 6 tablet 0 01/10/2022 01/16/2022 Active Start: 03-29-2016 End: 03-29-2016 Methylprednisolone Discontin ued 4 MG PO DIRECTED March 29, 2016 1:00am March 29, 2016 8:59am Comment on above: Follow dosing instru ctions, take with food. Take by mouth as dir ected until finished. metoprolol tartrate 25 mg oral tablet (20 sources) beta-Adrenergic Danielle Start: 3 End: 05-05-202 5 take 1 tablet by mouth twice daily metoprolol tartrate, short acting, (LOPRESSOR) 25 mg tablet Indications: Essential hypertension , Atrial fibrillation with RVR (HCC) Take 1 tablet by mouth two times a day. 180 tablet 3 06/30/2024 Active Start: 11-01-2022 End: 03-12-2023 take 0.5 tablet by mouth twice daily metoprolol tartrate, short acting, (LOPRESSOR) 25 mg tablet Indications: Essential hypertension Take 0.5 tablets by mouth twice daily. 90 tablet 3 11/01/2022 03/12/2023 Discontinued Start: 12-27-2018 End: 11-01-2022 metoprolol tartrate, short a cting, (LOPRESSOR) 25 mg tablet Indications: Essential hypertension Take 12.5 mg by mouth twice daily. 12/27/2018 11/01/2022 Discontinued Start: 12-26-2018 End: 02-20-2023 take 12.5 mg by mouth twice daily Metoprolol Tartrate Discontinued 12.5 MG PO TWICE A DAY 90 December 29, 2021 11:02am February 20, 2023 12:45pm Start: 12-06-2018 End: 12-26-2018 take 25 mg by mouth twice daily Metoprolol Tartrate Di scontinued 25 MG PO TWICE A DAY December 12, 2018 10:05am December 26, 2018 1:53pm Comment on above: Take 12.5 mg by mout h twice daily. Take 0.5 tablets by mouth twice daily. Take 1 tablet by naveen th two times a day. Nebulizer (20 sources) Start: 03-22-2016 Nebulizer Indications: Mild intermittent asthma without complication (HCC) NEBULIZER FOR HOME USE. DX: J45.20 1 [...] tablet (20 sources) Serotonin-3 Receptor Antagonist Start: 01-31-20 take 1 tablet by mouth every eight hours as needed ondansetron orally disintegrating (ZOFRAN ODT) 4 mg disintegrating tablet Take 1 tablet by mouth every 8 hours as needed for nausea/vomiting. 90 tablet 01/31/2024 Active Start: 03-04-2019 End: 01-31-2024 take 1 tablet by mouth every six hours as needed for nausea ondansetron orally disintegrating (ZOFRAN ODT) 4 mg disintegrating tablet Indications: Benign paroxysmal positional vertigo, unspecified laterality DISSOLVE 1 TABLET ON THE TONGUE EVERY 6 HOURS NEEDED FOR NAUSEA/VOMITING 90 tablet 03/04/2019 01/31/2024 Discontinued Start: 02-10-2019 End: 10-21-2021 take 4 mg by mouth every six hours Ondansetron Hcl Discontinued 4 MG PO EVERY 6 HOURS February 10, 2019 10:25pm October 21, 2021 5:01pm Start: 12-06-2018 End: 02-10-2019 take 8 mg by mouth every eight hours as needed Ondansetron Hcl Discontinued 8 MG PO EVERY 8 HOURS NEEDED December 06, 2018 12:00am February 10, 2019 10:25pm Comment on above: DISSOLVE 1 TABLET ON THE TONGUE EVERY 6 HOURS NEEDED FOR NAUSEA/VOMITING pantoprazole 20 mg delayed release oral tablet (20 sources) Proton Pump Inhibitor Start: 023 End: 025 take 1 tablet by mouth once daily pantoprazole DR (PROTONIX) 20 mg tablet Indications: Gastroesophageal reflux disease Take 1 tablet by mouth once daily. 90 tablet 3 06/30/2024 Active Start: 09-23-2021 End: 06-12-2022 Pantoprazole Discontinued 0 .ROUTE .COMPLEX 90 March 30, 2022 4:18pm June 12, 2022 9:29am TAKE 1 TABLET EVERY DAY Start: 09-17-2021 End: 10-21-2021 take 40 mg by mouth twice daily Pantoprazole (Protonix) [address] for susp in packet Discontinued 40 MG PO TWICE A DAY 60 September 17, 2021 12:00am October 21, 2021 5:01pm Start: 12-26-2015 End: 12-22-2021 take 1 tablet by mouth once daily before breakfast pantoprazole DR (PROTONIX) 20 mg tablet Indications: Gastroesophageal reflux disease TAKE 1 TABLET BY MOUTH DAILY BEFORE BREAKFAST ON AN EMPTY STOMACH, 1/2 HOUR BEFORE MEAL 90 tablet 3 12/29/2019 12/14/2020 Discontinued Comment on above: Take 1 tablet by naveen once daily. potassium chloride 8 meq extended release oral capsule (3 sources) Start: 4 End: 4 take 1 capsule by mouth once daily potassium chloride SR (MICRO-K) 8 mEq cpER Take 1 capsule by mouth once daily. 30 capsule 0 04/03/2023 05/03/2023 Active Comment on above: Take [address] [facility] once daily. proparacaine hydrochloride 5 mg/ml ophthalmic solution (1 source) Local Anesthetic Start: 3 End: 3 proparacaine 0.5 % 1 Drop (ALCAINE) verapamil hydrochloride 240 mg extended release oral tablet (20 sources) Calcium Channel Danielle Start: 3 End: 5 take 1 tablet by mouth once daily at bedtime verapamil SR (CALAN SR) 240 mg CR tablet Indications: Essential hypertension , Atrial fibrillation with rapid ventricular response (HCC) Take 1 tablet by mouth daily at bedtime. 90 tablet 3 06/30/2024 Active Start: 07-02-2018 End: 12-22-2021 take 1 tablet by mouth once daily at bedtime verapamil SR (CALAN SR, ISOPTIN SR) 240 mg CR tablet TAKE 1 TABLET BY MOUTH EVERYDAY AT BEDTIME 90 tablet 1 12/02/2018 12/14/2020 Discontinued Comment on above: [facility] Completed/Discontinued Medications Medication Drug Class(es) Dates Sig (Normalized) Sig (Original) acetaminophen 325 mg oral tablet (20 sources) Start: 02-12-2019 End: 05-26-2023 take 650 mg by mouth every six hours as needed Acetaminophen Discontinued 650 MG PO EVERY 6 HOURS NEEDED February 12, 2019 1:00am May 26, 2023 3:41pm acetaminophen 325 mg / HYDROcodone bitartrate 5 mg oral tablet (20 sources) Opioid Agonist Start: 06-10-2021 End: 11-18-2021 take 1 tablet by mouth every six hours as needed Hydrocodone-Acetami nophen Discontinued 1 TABLET PO EVERY 6 HOURS NEEDED 10 3 June 10, 2021 November 18, 2021 9:44am Start: 05-09-2018 End: 05-12-2018 take 1 tablet by mouth every six hours as needed Hydrocodone-Acetaminophen Discontinued 1 TABLET PO EVERY 6 HOURS NEEDED 10 May 09, 2018 12:00am May 12, 2018 12:10am albuterol 0.833 mg/ml / ipratropium bromide 0.167 mg/ml inhalation solution (1 source) Anticholinergic, beta2-Adrenergic Agonist Start: 02-10-2023 End: 02-10-2023 ipratropium-albuterol 3 mL nebulizer solution (DUONEB) amiodarone hydrochloride 200 mg oral tablet (20 sources) Antiarrhythmic Start: 12-12-2018 End: 12-22-2021 take 1 tablet by mouth once daily amiodarone (PACERONE) 200 mg tablet Indications: Atrial fibrillation with rapid ventricular response (HCC) Take 200 mg by mouth once daily. 12/27/2018 08/16/2020 Discontinued Start: 12-06-2018 End: 12-12-2018 take 2 tablets by mouth twice daily, then take 1 tablet by mouth once daily Amiodarone Discontinued 200 MG PO DIRECTED December 06, 2018 12:00am December 12, 2018 10:05am take 400mg (2 tablets ) twice daily for the next 2 days (till 12/07/18), then continue with 200mg (one tablet) daily. Comment on above: Take 1 tablet by naveen th once daily. atropine sulfate 0.025 mg / diphenoxylate hydrochloride 2.5 mg oral tablet (20 sources) Anticholinergic, Cholinergic Muscarinic Antagonist, Antidiarrheal Start: 12-17-19 End: 08-13-19 22 diphenoxylate-atropi ne (LOMOTIL) 2.5-0.025 mg per tablet Indications: Diarrhea of presumed infectious origin Take 1 tablet with each watery stool, maximum 4 per day 12 tablet 12/17/2019 08/12/2021 Discontinued (Other) Comment on above: Take 1 tablet with e ach watery stool, maximum 4 per day azithromycin 250 mg oral tablet (20 sources) Macrolide Antimicrobial Start: 07-30-19 End: 08-04-19 take 2 tablets by mouth once daily, then take 1 tablet by mouth once daily azithromycin (ZITHROMAX) 250 mg tablet Indications: Acute asthmatic bronchitis , Mild persistent asthma with acute exacerbation Take 2 tablets by mouth once daily for 1 day, THEN 1 tablet once daily for 4 days. 6 tablet 0 07/30/2023 08/04/2023 Start: 03-29-2016 End: 03-29-2016 take 1 tablet by mouth once daily Azithromycin (Zithromax) 500 MG tablet Discontinued 500 MG PO DAILY 3 March 29, 2016 1:00am March 29, 2016 8:59am bifidobacterium bifidum [id number] unt / bifidobacterium longum [id number] unt oral capsule (20 sources) Start: 01-27-2019 End: 02-27-2023 take 1 capsule by mouth once daily bifidobacteri bifid.and longum (FLORAJEN BIFIDOBLEND) 460 mg (9-1 bill.cell) cap Indications: Urinary frequency Take 1 capsule by mouth once daily. 30 capsule 1 01/27/2019 02/27/2023 Discontinued Comment on above: Take 1 capsule by [facility] once daily. cefdinir 300 mg oral capsule (2 sources) Cephalosporin Antibacterial Start: 02-20-2023 End: 05-26-2023 take 300 mg by mouth twice daily Cefdinir Discontinued 300 MG PO TWICE A DAY 6 3 February 20, 2023 1:00am May 26, 2023 4:01pm cephalexin 500 mg oral capsule (3 sources) Cephalosporin Antibacterial Start: 01-26-2024 End: 02-13-2024 cephALEXin (KEFLEX) 500 mg capsule every 12 hours. 01/26/2024 02/13/2024 Discontinued (Course of therapy completed) cyclobenzaprine hydrochloride 10 mg oral tablet (20 sources) Muscle Relaxant Start: 04-09-2022 End: 02-27-2023 cyclobenzaprine (FLEXERIL) 10 mg tablet End: 02-27-2023 cyclobenzaprine HCl (FLEXERI L ORAL) Take by mouth. 0 02/27/2023 Discontinued cyclobenzaprine HCl (FLEXERIL ORAL) Take by mouth. 0 Active Comment on above: Take by mouth. cycloSPORINE 0.5 mg/ml ophthalmic suspension (20 sources) Calcineurin Inhibitor Immunosuppressant Start: 07-19-19 End: 02-27-19 take 1 drop(s) into the eye(s) twice daily cycloSPORINE (RESTASIS) 0.05 % ophthalmic emulsion Indications: Environmental allergies Use 1 Drop in both eyes twice daily. Both eyes. 07/18/2018 02/27/2023 Discontinued Start: 07-18-2018 take 1 drop(s) into the eye(s) twice daily cycloSPORINE (RESTASIS) 0.05 % ophthalmic emulsion Indications: Environmental allergies Use 1 Drop in both eyes twice daily. Both eyes. 0 07/18/2018 Active Start: 03-28-2016 Cyclosporine A ctive 1 DRP EACH EYE TWICE A DAY March 28, 2016 2:46pm Start: 03-28-2016 End: 05-26-2023 Cyclosporine Discontinued 1 DRP EACH EYE TWICE A DAY March 28, 2016 1:00am May 26, 2023 4:01pm Start: 03-28-2016 Cyclosporine A ctive 1 DRP EACH EYE TWICE A DAY March 28, 2016 12:00am Start: 03-28-2016 Cyclosporine A ctive 1 DRP EACH EYE TWICE A DAY March 28, 2016 1:00am Comment on above: Use 1 Drop in both e yes twice daily. Both eyes. dexamethasone 1 mg/ml / neomycin 3.5 mg/ml / polymyxin b [id number] unt/ml ophthalmic suspension (11 sources) Aminoglycoside Antibacterial, Polymyxin-class Antibacterial, Corticosteroid Start: End: NEOMYCIN-POLYMYXIN- DEXAMETH 3.5 MG/ML-10,000 UNIT/ML-0.1% EYE DROPS [...] sources) Nonsteroidal Anti-inflammatory Drug Start: 020 End: apply 2 g topically four times daily [...] tablet (7 sources) Histamine-2 Receptor Antagonist Start: 3 End: 3 take 1 tablet by mouth at bedtime as needed famotidine (PEPCID) 20 mg tablet Indications: Sacroiliitis (HCC) , Chronic bilateral low back pain with bilateral sciatica Take 1 tablet by mouth at bedtime as needed. 15 tablet 0 04/11/2022 06/30/2022 Discontinued (Course of therapy completed) Comment on above: Take 1 tablet by naveen th at bedtime as needed. furosemide 20 mg oral tablet (5 sources) Loop Diuretic Start: 4 End: 4 take 1 tablet by mouth once daily furosemide (LASIX) 20 mg tablet Take 1 tablet by mouth once daily. 30 tablet 0 04/03/2023 06/08/2023 Discontinued (Course of therapy completed) Comment on above: Take 1 tablet by naveen th once daily. GLUC PEREZ/CHONDRO PEREZ A/VIT C/MN (GLUCOSAMINE 1500 COMPLEX ORAL) (20 sources) End: 2 GLUC PEREZ/CHONDRO PEREZ A/VIT C/MN (GLUCOSAMINE 1500 [...] mg extended release oral tablet (20 sources) Start: 017 End: 022 take 1 tablet by mouth twice daily Guaifenesin (Mucus Relief Er) 1,200 MG tablet Discontinued 1200 MG PO TWICE A DAY March 29, 2016 1:00am March 29, 2016 8:59am Comment on above: Take by mouth twice [...] daily as needed for dry skin (arms). linaclotide 0.145 mg oral capsule (14 sources) Guanylate Cyclase-C Agonist Start: End: take 1 capsule by mouth once daily Linaclotide (Linzess) 145 mcg capsule Discontinued 145 MCG PO DAILY September 30, 2021 12:00am November 18, 2021 9:44am lisinopril 10 mg oral tablet (20 sources) Angiotensin Converting Enzyme Inhibitor Start: End: take 10 mg by mouth once daily Lisinopril Discontinued 10 MG PO DAILY February 10, 2019 1:00am February 12, 2019 12:33pm meloxicam 15 mg oral tablet (20 sources) Nonsteroidal Anti-inflammatory Drug Start: End: take 1 tablet by mouth once daily at mealtime meloxicam (MOBIC) 15 mg tablet Take 1 tablet by mouth once daily. With food. 14 tablet 1 03/05/2019 08/12/2021 Discontinued (Other) Comment on above: Take 1 tablet by naveen th once daily. With food. montelukast 10 mg oral tablet (20 sources) Leukotriene Receptor Antagonist Start: End: take 1 tablet by mouth once daily at bedtime montelukast (SINGULAIR) 10 mg tablet Take 1 tablet by mouth daily at bedtime. 30 tablet 09/05/2019 08/12/2021 Discontinued (Other) Comment on above: Take 1 tablet by naveen th daily at bedtime. nitrofurantoin, macrocrystals 100 mg oral capsule (20 sources) Nitrofuran Antibacterial Start: End: take 100 mg by mouth twice daily Nitrofurantoin Macrocrystal Discontinued 100 MG PO TWICE A DAY December 04, 2018 12:00am December 06, 2018 10:44am nitrofurantoin, macrocrystals 25 mg / nitrofurantoin, monohydrate 75 mg oral capsule (20 sources) Nitrofuran Antibacterial Start: End: take 1 capsule by mouth twice daily nitrofurantoin monohydrate and macrocrystal (MACROBID) 100 mg capsule Take 1 capsule by mouth two times a day for 5 days. 10 capsule 0 07/26/2023 07/31/2023 Start: 04-24-2019 End: 04-26-2019 take 100 mg by mouth twice daily Nitrofurantoin Monohyd/M-Cryst Discontinued 100 MG PO TWICE A DAY April 24, 2019 1:00am April 26, 2019 12:00pm Start: 02-10-2019 End: 02-12-2019 take 100 mg by mouth twice daily Nitrofurantoin Monohyd/M-Cryst Discontinued 100 MG PO TWICE A DAY February 10, 2019 1:00am February 12, 2019 12:33pm oseltamivir 75 mg oral capsule (20 sources) Neuraminidase Inhibitor Start: 03-29-2016 End: 03-29-2016 take 1 capsule by mouth twice daily Oseltamivir (Tamiflu) 75 MG capsule Discontinued 75 MG PO TWICE A DAY March 29, 2016 1:00am March 29, 2016 8:59am predniSONE 20 mg oral tablet (20 sources) Start: 07-30-2023 End: 08-04-2023 take 2 tablets by mouth once daily predniSONE (DELTASONE) 20 mg tablet Indications: Acute asthmatic bronchitis , Mild persistent asthma with acute exacerbation Take 2 tablets by mouth once daily for 5 days. 10 tablet 0 07/30/2023 08/04/2023 Start: 02-20-2023 End: 05-26-2023 take 4 tablets by mouth once daily at breakfast, then take 3 tablets by mouth once daily, then take 2 tablets by mouth once daily, then take 1 tablet by mouth once daily, then take 0.5 tablet by mouth once daily Prednisone Discontinued 40 MG PO WITH BREAKFAST February 20, 2023 1:00am May 26, 2023 3:59pm Take 4 tablets daily for 4 days then 3 tablets daily for 4 days then 2 tablets daily for 4 days then 1 tablet daily for 4 days then half tablet daily for 4 days Start: 02-10-2023 End: 02-15-2023 take 2 tablets by mouth once daily predniSONE (DELTASONE) 20 mg tablet Take 2 tablets by mouth once daily for 5 days. 10 tablet 0 02/10/2023 02/15/2023 Start: 02-12-2019 End: 03-03-2019 take 1 dose by mouth once daily at mealtime Prednisone Discontinued 40 MG PO DAILY February 12, 2019 1:00am March 03, 2019 11:26am With Food, next dose tomorrow AM 02/13/2019 Comment on above: Take [address] [facility] once daily for 5 days. 72 hr scopolamine 0.0139 mg/hr transdermal system (9 sources) Anticholinergic Start: 01-14-20 End: 05-26-19 Scopolamine Base Discontinued 1 PATCH TD Every 3 Days January 13, 2022 1:00am May 26, 2023 4:00pm thiamine 100 mg oral tablet (20 sources) Start: 07-31-19 End: 08-13-19 take 1 tablet by mouth once daily thiamine mononitrate (VITAMIN B1) 100 mg tab Take 1 tablet by mouth once daily. 30 tablet 1 07/30/2018 08/12/2021 Discontinued (Other) Comment on above: Take 1 tablet by naveen once daily. warfarin sodium 3 mg oral tablet (20 sources) Vitamin K Antagonist Start: 12-15-19 End: 08-13-19 take 2 tablets by mouth once, then take 1 tablet by mouth once warfarin (COUMADIN) 3 mg tablet Indications: Atrial fibrillation with rapid ventricular response (HCC) , [facility] current use of anticoagulant therapy Take 2 tablets by mouth every Sunday,Sunday,Sun AND 1 tablet every Sunday,Sunday,,Sunday. 135 tablet 3 12/14/2020 08/12/2021 Discontinued (Other) Start: 01-05-2020 End: 09-15-2020 take 2 tablets by mouth once, then take 1 tablet by mouth once warfarin (COUMADIN) 3 mg tablet Take 2 t ablets by mouth every Sunday,Sunday,Sunday AND 1 tablet every Sunday,Sunday,,Sunday. 135 tablet 3 01/12/2020 09/15/2020 Discontinued Start: 12-10-2019 End: 06-20-2021 Warfarin Discontinued 6 MG P O MOWE December 10, 2019 5:37pm June 20, 2021 10:19am Start: 12-10-2019 End: 06-20-2021 Warfarin Discontinued 3 MG P O SUTUTHFRSA December 10, 2019 5:36pm June 20, 2021 10:19am Start: 09-14-2019 End: 12-10-2019 Warfarin Discontinued 4 MG P O MOWEFR September 14, 2019 5:14pm December 10, 2019 5:37pm Start: 09-14-2019 End: 12-10-2019 take 3 mg by mouth once Warfarin Discontinued 3 MG PO every , , , SunSeptember 14, 2019 12:00am December 10, 2019 5:37pm Start: 05-22-2019 End: 09-14-2019 take 2 mg by mouth once daily Warfarin Discontinued 4 MG PO DAILY 60 M 2019 11:16am September 14, 2019 5:15pm 2 mg PO daily or as directed Start: 12-27-2018 End: 05-22-2019 take 2 mg by mouth once daily Warfarin Discontinued 2 MG PO .COMPLEX 9 0 February 05, 2019 6:21pm February 10, 2019 10:25pm 2 mg PO daily or as directed Comment on above: Take 2 tablets by mo uth every Sunday,Sunday,Sunday AND 1 tablet every Sunday,Sunday,,Sunday. Problems Active Problems Problem Classification Problem Date Documented Da te Episodic/Chronic Acquired foot deformities (2 sources) Left foot drop; Translations: [Foot drop, left foot] Onset: 5 Episodic Acute posthemorrhagic anemia (4 sources) Acute posthemorrhagic anemia; Translations: [Acute posthemorrhagic anemia] 05-26-2023 Episodic Administrative/social admission (1 source) Financial problem; Translations: [Problem related to housing and economic circumstances, unspecified] Episodic Asthma (20 sources) Exacerbation of mild persistent asthma; Translations: [Mild persistent asthma with (acute) exacerbation] Onset: 3 Chronic Cardiac dysrhythmias (14 sources) Palpitations; Translations: [Palpitations] 09-26-2021 Episodic Chronic obstructive pulmonary disease and bronchiectasis (2 sources) Bronchitis; Translations: [Bronchitis, not specified as acute or chronic] 02-10-2023 Episodic Coagulation and hemorrhagic disorders (9 sources) Blood coagulation disorder; Translations: [Coagulation defect, unspecified] 02-01-2022 Chronic Deficiency and other anemia (6 sources) Anemia; Translations: [Anemia, unspecified] 05-26-2023 Episodic Disorders of lipid metabolism (20 sources) Mixed hyperlipidemia; Translations: [Mixed hyperlipidemia] 02-21-2021 Chronic E Codes: Fall (20 sources) Fall; Translations: [Unspecified fall, initial encounter] Episodic Esophageal disorders (20 sources) Gastroesophageal reflux disease; Translations: [Gastro-esophageal reflux disease without esophagitis] Onset: 3 04-16-2012 Chronic Essential hypertension (20 sources) Essential hypertension; Translations: [Essential (primary) hypertension] Onset: 9 07-30-2018 Chronic Gastrointestinal hemorrhage (20 sources) Acute lower gastrointestinal hemorrhage; Translations: [Gastrointestinal hemorrhage, unspecified] Episodic Genitourinary symptoms and ill-defined conditions (1 source) Scalding pain on urination ; Translations: [Dysuria] 07-26-2023 Episodic Headache; including migraine (20 sources) Migraine; Translations: [Migraine, unspecified, not intractable, without status migrainosus] Onset: 4 07-30-2018 Chronic Heart valve disorders (20 sources) Mitral valve regurgitation; Translations: [Nonrheumatic mitral (valve) insufficiency] Chronic Immunizations and screening for infectious disease (8 sources) Vaccination needed; Translations: [Encounter for immunization] Onset: Episodic Inflammation; infection of eye (except that caused by tuberculosis or sexually transmitteddisease) (1 source) Infection of right eye; 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, 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-25-2022 Chronic Nausea and vomiting (1 source) Nausea, vomiting and diarrhea; Translations: [Nausea with vomiting, unspecified] 01-31-2024 Episodic Osteoarthritis (20 sources) Osteoarthritis of right knee joint; Translations: [Unilateral primary osteoarthritis, right knee] Onset: 6 12-13-2015 Chronic Other aftercare (1 source) Encounter for adjustment and management of other implanted devices; Translations: [Encounter for adjustment and management of other implanted devices] Onset: 5 Chronic Other aftercare (20 sources) Long-term current use of anticoagulant; Translations: [[facility] (current) use of anticoagulants] 06-10-2021 Episodic Other aftercare (20 sources) Drug therapy finding; Translations: [Other [facility] (current) drug therapy] 09-25-2021 Episodic Other aftercare (9 sources) [facility] (current) use of anticoagulants; Translations: [Long-term (current) use of anticoagulants] Episodic Other aftercare (1 source) Other [facility] (current) drug therapy; Translations: [Long-term (current) use of other medications] Episodic Other aftercare (3 sources) Patient encounter status; Translations: [Other keno terminal operator (current) drug therapy] Episodic Other aftercare (2 sources) Encounter for therapeutic drug level monitoring; Translations: [Encounter for therapeutic drug level monitoring] Onset: 5 Episodic Other and unspecified benign neoplasm (20 sources) [...] diarrhea] Onset: 2 Chronic Other gastrointestinal disorders (9 sources) Diarrhea; Translations: [Diarrhea, unspecified] 02-02-2022 Episodic Other injuries and conditions due to external causes (20 sources) Injury of head; Translations: [Unspecified injury of head, initial encounter] 06-18-2021 Episodic Other liver diseases (11 sources) Disease of liver; Translations: [Liver disease, unspecified] 12-08-2021 Chronic Other liver diseases (4 sources) Liver disease, unspecified; Translations: [Unspecified disorder of liver] Chronic Other lower respiratory disease (7 sources) Dyspnea; Translations: [Shortness of breath] 05-09-2022 Episodic Other lower respiratory disease (1 source) Cough; Translations: [Acute cough] 11-16-2022 Episodic Other lower respiratory disease (1 source) Shortness of breath; Translations: [Shortness of breath] Onset: 5 Episodic Other nervous system disorders (2 sources) Other chronic pain; Translations: [Chronic pain of right knee] Onset: 6 Chronic Other nervous system disorders (1 source) Difficulty in walking, not elsewhere classified; Translations: [Difficulty in walking, not elsewhere classified] Onset: 5 Chronic Other nervous system disorders (2 sources) Impairment of balance; Translations: [Other abnormalities of gait and mobility] 02-13-2024 Episodic Other nervous system disorders (1 source) Abnormal gait; Translations: [Unspecified abnormalities of gait and mobility] 02-13-2024 Episodic Other non-traumatic joint disorders (20 sources) Arthropathy; Translations: [Arthropathy, unspecified] 12-14-2011 Chronic Other non-traumatic joint disorders (1 source) Chronic pain of left upper limb; Translations: [Pain in left shoulder] 01-01-2023 Episodic Other non-traumatic joint disorders (1 source) Pain of right wrist; Translations: [Pain in right wrist] 01-10-2023 Episodic Other nutritional; endocrine; and metabolic disorders (10 sources) Obese class I; Translations: [Obesity, unspecified] 01-14-2022 Chronic Other nutritional; endocrine; and metabolic disorders (1 source) Obesity, unspecified; Translations: [Obesity, unspecified] Onset: 5 Chronic Other upper respiratory disease (1 source) Allergic rhinitis; Translations: [Allergic rhinitis, unspecified] 07-04-2023 Chronic Other upper respiratory infections (7 sources) Acute upper respiratory infection; Translations: [Acute upper respiratory infection, unspecified] 11-16-2022 Episodic Peripheral and visceral atherosclerosis (3 sources) Ischemic colitis; Translations: [Vascular disorder of intestine, unspecified] 05-28-2023 Chronic Pulmonary heart disease (20 sources) Pulmonary arterial hypertension; Translations: [Secondary pulmonary arterial hypertension] 01-28-2020 Chronic Residual codes; unclassified (1 source) Pain; Translations: [Pain, unspecified] 11-15-2022 Episodic Residual codes; unclassified (1 source) Bilateral lower limb edema; Translations: [Localized edema] 07-08-2023 Episodic Screening and history of mental health and substance abuse codes (2 sources) Encounter for screening for depression; Translations: [Encounter for screening examination for other mental health and behavioral disorders] Onset: 5 Episodic Spondylosis; intervertebral disc disorders; other back problems (20 sources) Inflammation of sacroiliac joint; Translations: [Sacroiliitis, not elsewhere classified] Onset: 3 Resolved: 4 Chronic Spondylosis; intervertebral disc disorders; other back problems (20 sources) Lumbago with sciatica; Translations: [Lumbago with sciatica, left side] Onset: 8 12-27-2017 Episodic Syncope (4 sources) Near syncope; Translations: [Syncope and collapse] 05-26-2023 Episodic Transient cerebral ischemia (20 sources) Transient cerebral ischemia; Translations: [Transient cerebral ischemic attack, unspecified] Chronic Unclassified (1 source) Obesity, class 1; Translations: [Obesity, class 1] Onset: 5 Urinary tract infections (20 sources) Urinary tract infectious disease; Translations: [Urinary tract infection, site not specified] 01-28-2020 Episodic Viral infection (1 source) Respiratory syncytial virus infection; Translations: [Other specified viral diseases] 04-12-2023 Episodic Past or Other Problems Problem Classification Problem Date Documented Date Episodic/Chronic Abdominal hernia (13 sources) Hiatal hernia; Translations: [Diaphragmatic hernia without obstruction or gangrene] Onset: 01-31-2024 01-31-2024 Episodic Abdominal pain (20 sources) Left lower quadrant pain; Translations: [Left lower quadrant pain] Onset: 05-27-2018 05-27-2018 Episodic Allergic reactions (20 sources) Environmental allergy; Translations: [Other allergy status, other than to drugs and biological substances] Onset: 04-16-2012 04-16-2012 Episodic Calculus of urinary tract (20 sources) Kidney stone; Translations: [Calculus of kidney] Onset: 05-09-2018 05-27-2018 Episodic Cardiac dysrhythmias (20 sources) Atrial fibrillation with rapid ventricular response; Translations: [Unspecified atrial fibrillation] Onset: 12-30-2018 Resolved: 01-01-2023 12-30-2018 Chronic Conditions associated with dizziness or vertigo (20 sources) Benign paroxysmal positional vertigo; Translations: [Benign paroxysmal vertigo, unspecified ear] Onset: 04-04-2016 04-04-2016 Episodic Deficiency and other anemia (3 sources) Anemia, unspecified; Translations: [Anemia, unspecified] Onset: 03-12-2024 05-26-2023 Episodic Deficiency and other anemia (2 sources) Iron deficiency anemia, unspecified; Translations: [Iron deficiency anemia, unspecified iron deficiency anemia type] Onset: 03-26-2024 Episodic Diabetes mellitus without complication (3 sources) Hyperglycemia; Translations: [Hyperglycemia, unspecified] Onset: 03-26-2024 Episodic Diverticulosis and diverticulitis (20 sources) Diverticulitis; Translations: [Diverticulitis of intestine, part unspecified, without perforation or abscess without bleeding] Resolved: 12-10-2020 12-10-2020 Chronic Fluid and electrolyte disorders (8 sources) Acute hypokalemia; Translations: [Hypokalemia] Onset: 03-26-2024 02-17-2023 Episodic Fracture of upper limb (20 sources) Closed fracture of phalanx of finger; Translations: [Fracture of finger, middle or proximal phalanx, closed] Onset: 08-28-2012 Resolved: 12-10-2020 12-10-2020 Episodic Inflammation; infection of eye (except that caused by tuberculosis or sexually transmitteddisease) (20 sources) Dacryocystitis of right lacrimal sac; Translations: [Unspecified dacryocystitis of right lacrimal passage] Onset: 11-30-2022 01-01-2023 Episodic Influenza (1 source) Influenza due to other identified influenza virus with other respiratory manifestations; Translations: [Influenza due to other identified influenza virus with other respiratory manifestations] Onset: 03-26-2024 Episodic Malaise and fatigue (20 sources) Asthenia; Translations: [Weakness] Onset: 03-26-2024 Episodic Noninfectious gastroenteritis (20 sources) Colitis; Translations: [Noninfective gastroenteritis and colitis, unspecified] Onset: 12-08-2021 Episodic Nonspecific chest pain (20 sources) Chest pain; Translations: [Chest pain, unspecified] Onset: 01-01-2023 05-09-2022 Episodic Other circulatory disease (20 sources) History of transient ischemic attack; Translations: [Personal history of transient ischemic attack (TIA), and cerebral infarction without residual deficits] Onset: 07-29-2018 12-10-2020 Episodic Other connective tissue disease (1 source) Other symptoms and signs involving the musculoskeletal system; Translations: [Weakness of both lower extremities] Onset: 07-16-2024 Episodic Other eye disorders (20 sources) Acquired [...] respiratory system] Onset: 11-16-2022 11-16-2022 Episodic Other nervous system disorders (1 source) Other abnormalities of gait and mobility; Translations: [Balance problem] Onset: 02-14-2024 Episodic Other nervous system disorders (1 source) Unspecified abnormalities of gait and mobility; Translations: [Gait abnormality] Onset: 02-13-2024 Episodic Other non-traumatic joint disorders (20 sources) Pain in right knee; Translations: [Pain in joint, lower leg] Onset: 12-13-2015 12-13-2015 Episodic Other screening for suspected conditions (not mental disorders or infectious disease) (20 sources) INR raised; Translations: [Abnormal coagulation profile] Onset: 01-11-2024 Episodic Other skin disorders (20 sources) Dry skin; Translations: [Xerosis cutis] Onset: 09-03-2018 09-03-2018 Episodic Other skin disorders (20 sources) Xeroderma; Translations: [Xerosis cutis] Onset: 09-03-2018 09-03-2018 Episodic Other skin disorders (20 sources) Sebaceous cyst of skin; Translations: [Sebaceous cyst] Onset: 05-15-2007 Resolved: 04-16-2012 04-16-2012 Episodic Pneumonia (except that caused by tuberculosis or sexually transmitted disease) (20 sources) Pneumonia; Translations: [Pneumonia, unspecified organism] Onset: 03-26-2024 01-28-2020 Episodic Superficial injury; contusion (20 sources) Contusion of elbow; Translations: [Contusion of left elbow, initial encounter] Onset: 11-09-2022 Episodic Unclassified (1 source) Patient encounter status 06-03-2024 Results Test Name Value Interpretation Reference Range Facility Inital Evaluation (1) - PTon 12-29-2024 Inital Evaluation (1) - PT [facility] [address] [place] [address] [address] [place] [address] / REHABILITATION SERVICES INITIAL EVALUATION MR#: [id number] Acct: [id number] Name: ROMAIN BAILEY Rep #: [id number] : 1950 74 From: Fabiola Gonsalez PT. MD Leal, OCS Referring Dr.: MADELINE Niño Status: REG R CR Insurance: [facility]AN Patient's Visit Information Visit Information Visit Information: ROMAIN BAILEY is a 74 year old F referred to Physical Therapy by MADELINE Niño with a diagnosis of Chronic pain right knee,primary OA right knee ,chronic low back pain. Date of Evaluation: 12/29/24 Physical Therapist: Missael Camacho PT, Cert MDT, OCS Visit Plan Frequency: 1 visit Plan: Patient will benefit from PMD to maintain and optimize functional intendance. Patient has weakness in BLE ,pain right knee and back ,decrease Tinetti score gait ,1 and tinetti balance and gait score 7 ,CATSIBE 30 ,tug score 47 seconds along with decrease balance ,patient has comorbities to influence condition. Patient has decrease endurance with gait unsteady. Patient is willing to use PMD in home with ADLS and has physical and mental capabilities to use PMD. Thus will benefit from PMD Subjective Subjective: This 74 y/o female presents to physical therapy for wheelchair evaluation due to weakness and disability. Patient has difficulty with walking and take care self. Patient plans to get to home with daughter to live with no steps. Patient has no recent falls . Patient is able to dress and bathing in tub with shower chair. Patient has right knee pain needs TKA and has drop foot left side affects walking. Patient has back back worse with walking/standing 5 mins and walk 100 ft needs to rest.C/O paresthesia/tingling in feet. Patient is sleeping okay. DME : [facility] ,fww Patient condition affects ability of needing a PMD to maximize functional independence SOCIAL: lives alone but plan to live with daughter Pain Knee: Pain Intensity (Out of 10): 8 Pain Intensity Range: 10 Bilateral Back: Pain Intensity (Out of 10): 9 Pain Intensity Range: 10 Objective Objective: POSTURE: mild forward posture ,hips/knees flexed GAIT: ambulates with QC with 3 point gait step too ,unsteady slow with narrow MAURI NEURO :c/o paresthesia/tingling BLE legs ,reflexes 1/3 AROM: BUE =WFL AROM: supine knee flexion 5-95 degrees right ,left 105 degrees ,hip flexion 95 degrees ,abduction 35 degrees MMT: bilateral hip flexion 3+/5 ,quads right 3/5 ,3+/5 , ,hamstrings 3+/5 ,ankle 4/5 BUE MMT: 4-/5 ,shoulders 3+/5 Balance/Special Test Scores CATSIB Score (Max score 120 seconds): 30 Tinetti Balance Score: 6 Tinetti Gait Score: 1 Tinetti Balance Gait Score: 7 TUG Test Time Seconds: 47.3 Goals Goal 1:: Patient will benefit from PMD to optimize functional independence. Goal Time Frame: 1 visist Rehabilitation Potential Physical Therapy Diagnosis: Patient will benefit from PMD to maintain and optimize functional intendance. Patient has weakness in BLE ,pain right knee and back ,decrease Tinetti score gait ,1 and tinetti balance and gait score 7 ,CATSIBE 30 ,tug score 47 seconds along with decrease balance ,patient has comorbities to influence condition. Patient has decrease endurance with gait unsteady. Patient is willing to use PMD in home with ADLS and has physical and mental capabilities to use PMD. Thus will benefit from PMD Rehabilitation Potential: Fair Anticipated Interventions Patient/Client Instruction: Educate patient on: Condition and Plan of Care For the Purpose of:: Other Other: PMD Text: Thank you for the opportunity to evaluate your patient. For Medicare and Medicare HMO plans, please review the plan of care and approve it. It will need to be FAXED BACK to us at [phone] for Medicare purposes. For Medicare only, by signing this I certify the plan of care. Please let me know if there are questions or concerns regarding this plan of care. Physician Signature: Date : 12/30/24 1437 CC: MADELINE Mullins; Dr. Fatemeh Rogers MD LAURYN Signed Normal [facility] CNOVon 12-19-2024 CNOV Office Visit (INTMWS ) ROMAIN BAILEY ([id number]) 1950 F T Date Time Provider Department 12/19/24 2:20 PM FAITH MULLINS INTMWS During your visit today, we recorded the following information about you: Pulse Respiration Blood pressure Weight 74/minute 12/minute 122/80 88.3 kg Faith Mullins APRN.FINANCIAL SALES CONSULTANT 12/19/2024 3:32 PM Signed SUBJECTIVE: Shingrix Vaccine(1 of 2) Never done RSV Vaccine(1 - Risk 60-74 years 1-dose series) Never done Mammogram Screening due on 06/26/2017 Medicare Advantage Annual Wellness Visit Never done Colorectal Cancer Screening due on 03/13/2024 Influenza Vaccine(1) due on 10/27/2024 Covid-19 Vaccine( season) due on 10/27/2024 Depression Screening due on 01/10/2025 Anxiety Screening due on 01/10/2025 HPI Romain Bailey is a 74 year old female. PMH is significant for ACTIVE PROBLEM LIST Environmental Allergies Asthma (Hcc) Arthropathy, Unspecified, Site Unspecified Essential Hypertension Ibs (Irritable Bowel Syndrome) Gerd (Gastroesophageal Reflux Disease) Migraine Hyperlipidemia, Mixed History of Colon Polyps Chronic Pain of Right Knee Primary Osteoarthritis of Right Knee Bppv (Benign Paroxysmal Positional Vertigo) Bee Sting Allergy Bilateral Low Back Pain With Bilateral Sciatica Calculus of Kidney Llq Pain History of Tia (Transient Ischemic Attack) Dry Skin History of Asthma Acquired Stenosis of Nasolacrimal Duct, Right Unspecified Dacryocystitis of Right Lacrimal Passage Unspecified Injury of Right Lower Leg, Initial Encounter Chest Pain Contusion of Left Wrist Contusion of Knee, Left Contusion of Elbow Colitis Hiatal Hernia Romain Bailey is a 74-year-old female with chronic low back pain, sacroiliitis, sciatica, chonic severe osteoarthritis of the right knee, GERD, and chronic left foot drop, presenting for evaluation and prescription of a power wheelchair due to progressive mobility limitations. Accompanied by her daughter, who is providing history on the patient?s behalf. Romain Bailey is a 74-year-old female with a history of sacroiliitis, sciatica, and left foot drop, presenting for evaluation of a power wheelchair and management of back pain, right knee pain, and GERD. Power Wheelchair Evaluation: - Ambulation limited to 6-10 steps before right knee gives out. - Requires cane or walker for ambulation; unable to walk without assistive devices. Cane or walker is sufficient for her needs now, frequently having near falls. - Lives with daughter and grandchildren, who assist with ADLs. - Home has hardwood floors; she will have enough room to use the wheelchair with her home. - Able to operate a motorized wheelchair with hand controls. Back Pain: - Worsening back pain x3 months, with numbness radiating from lower back down the legs when standing or sitting. - Diagnosed with sacroiliitis and sciatica several years ago; no recent evaluation. - Recent X-ray in June. - Denies current treatment for back pain; avoids medication unless pain is above a 10. - Reports a bulge in the back, with pain alleviated by leaning on the right side. - Denies history of back surgery. Right Knee Pain: - Severe arthritis in the right knee, described as bone on bone. - Has not undergone knee replacement surgery; has been delaying due to transportation issues and recent move. - Unable to straighten the knee; noticeable size difference compared to the other knee. - Denies current treatment for knee pain. Left Foot Drop: - Diagnosed with left foot drop; currently using a brace. - Brace causing discomfort and swelling; Romain reports a huge indent from the brace. - Denies history of back surgery or recent trauma; had two broken ankles as a teenager but denies chronic issues post-injury. - Current foot doctor is Dr. Wilson. GERD: - History of hiatal hernia. - Experiencing daily heartburn x2 weeks, despite eating smaller meals and avoiding spicy foods. - Currently taking pantoprazole. ROS Constitutional: (+) fatigue Musculoskeletal: (+) low back pain, (+) right knee pain, (+) knee instability, (+) gait difficulty Neurological: (+) lower extremity numbness, (+) paresthesias, (+) dizziness Gastrointestinal: (+) heartburn Objective BP 122/80 Pulse 74 Resp 12 Wt 88.3 kg (194 lb 10.7 oz) SpO2 94% BMI 31.42 kg/m? Physical Exam Vitals and nursing note [...] and 2+ on the left side. Heart (more content not included)... Normal [facility] XR KNEE 4V AP/PA BOTH+LAT/ME R RTon 12-19-2024 XR KNEE 4V AP/PA BOTH+LAT/ELDA RT * * *Final Report* * * DATE OF EXAM: Dec 19 2024 4:17PM WOX [id number] - XR KNEE 4V AP/PA BOTH+LAT/ELDA RT / PROCEDURE REASON: multiple diagnoses * * * * Physician Interpretation * * * * EXAM TITLE: XR KNEE 4V AP/PA BOTH+LAT/ELDA RT EXAM DATE/TIME: 12/19/2024 4:17 PM COMPARISON: None. CLINICAL INDICATION/HISTORY: Chronic pain. TECHNIQUE: AP/PA, lateral and sunrise views of the right knee are presented. FINDINGS: No fractures or subluxations are noted. Significant edxq-xi-dudm medial compartmental joint space narrowing is noted. There is tricompartmental osteophyte formation. There is trace/small joint effusion. The bone are osteopenic. There is no significant soft tissue swelling. IMPRESSION: Degenerative changes in the right knee as described above. Apparel Patternmaker: ROSITA Transcribe Date/Time: Dec 19 2024 4:21P Dictated by : HEMA GUERRA MD This examination was interpreted and the report reviewed and electronically signed by: HEMA GUERRA MD on Dec 19 2024 4:23PM EST [id number] Normal [facility] 12-04-2024 CNPN Telephone (INTMWS) ROMAIN BAILEY ([id number]) 1950 F CHT Date Time Provider Department 12/04/24 FATEMEH ROGERS INTMWS During your visit today, we recorded the following information about you: Narinder Jacques, CHAPARRITA 12/04/2024 12:22 PM Signed Patient and daughter Suma phoned asking pcp to order a motorized wheel chair for patient. Reports patient has trouble with sciatica which causes numbness in legs off and on. Reports patient walks with a cane. Would also like provider to order a wheeled walker for patient. Pt has appt with Faith on 01/30/25 and added time to that appt to discuss motorized wheelchair need, per pt request. Reports DME's that are covered under patient's insurance are: - [facility]. - [employer]. - [employer]. Faith Mullins APRN.FINANCIAL SALES CONSULTANT 12/04/2024 1:09 PM Signed Check to see if she would like a sooner appointment. She will need a briy-qb-zexj visit and likely a physical therapy evaluation for motorized wheelchair. I placed a consult for physical therapy wheelchair evaluation. Schedule if willing. Schedule sooner appointment with me if she would like. Narinder Jacques RN 12/05/2024 9:59 AM Signed Phoned and spoke with patient and given provider's message below with verbalized understanding. Patient states she will talk with daughter about this since daughter will be bringing her to appts will need to know daughter's schedule. Pt will call back to schedule. Liz Cisneros RN 12/05/2024 12:18 PM Signed Daughter returns call and scheduled appt for motorized w/c to when daughter is able to transport. Liz Cisneros RN Allergies As of Date: 12/04/2024 Noted Allergy Reaction BACTRIM DS (SULFAMETHOXAZOLE-TRI M*12/29/2014 10 - Anaphylaxis Comments: Difficulty breathing, fever, chills BEE STING 08/28/2012 10 - Anaphylaxis ADHESIVE TAPE (ROSINS) 12/05/2016 2 - Rash DARVON (PROPOXYPHENE HCL) 05/15/2007 INFLUENZA VIRUS VACCINES 01/07/2019 14 - Other: See Comments Comments: Chest tightness, arm swelling. PEPPER (GENUS CAPSICUM) 11/04/2022 4 - Hives Date Reviewed: 07/16/2024 Reviewed by: Basilio Crouch APRN.PAPER CARRIER - Fully Assessed Reason for Visit: Motorized wheel chair [Other] Primary Visit Diagnosis:Chronic pain of right knee [M25.561, G89.29] Other Visit Diagnoses:Primary osteoarthritis of right knee [M17.11] Chronic bilateral low back pain with bilateral sciatica [M54.42, M54.41, G89.29] Order(s):CONSULT TO PT/OT WHEELCHAIR EVALUATION [[id number]] Order #: [id number]: 1 FUTURE Prescriptions as of 12/05/2024 - cetirizine (ZYRTEC) 10 mg tablet Take 1 tablet by mouth once daily. - ferrous sulfate 325 mg (65 mg iron) tablet Take 1 tablet by mouth once daily. - apixaban (ELIQUIS) 5 mg tab(s) Take 1 tablet by mouth two times a day. - atorvastatin (LIPITOR) 40 mg tablet Take 1 tablet by mouth once daily. - metoprolol tartrate, short acting, (LOPRESSOR) 25 mg tablet Take 1 tablet by mouth two times a day. - pantoprazole DR (PROTONIX) 20 mg tablet Take 1 tablet by mouth once daily. - verapamil SR (CALAN SR) 240 mg CR tablet Take 1 tablet by mouth daily at bedtime. - ondansetron orally disintegrating (ZOFRAN ODT) 4 mg disintegrating tablet Take 1 tablet by mouth every 8 hours as needed for nausea/vomiting. - EPINEPHrine (EPIPEN) 0.3 mg/0.3 mL auto-injector Inject 0.3 ml intramuscular as needed. - albuterol HFA (PROVENTIL HFA, VENTOLIN HFA) 90 mcg/actuation inhaler Inhale 2 Puffs as instructed every 6 hours as needed. - fluticasone-salmetero l (ADVAIR DISKUS) 100-50 mcg/dose inhaler Inhale 1 Puff as instructed two times a day. RINSE AND GARGLE MOUTH WITH WATER AFTER EACH USE. - fluticasone (FLONASE) 50 mcg/actuation nasal spray Use 2 Sprays in each nostril once daily. - fluticasone-salmetero l (ADVAIR DISKUS) 250-50 mcg/dose inhaler Inhale 1 Puff as instructed two times a day. For Asthma flare. Resume Advair 100 after this one completed - benzonatate (TESSALON PERLES) 100 mg capsule Take 2 capsules by mouth three times a day as needed. - albuterol (PROVENTIL) 2.5 mg /3 mL (0.083 %) nebulizer solution Use 3 mL via nebulizer every 4 hours as needed for wheezing/shortness of breath. Use over 5-15minutes. - meclizine (ANTIVERT) 25 mg tab Take [...] Ortiz RN Problem List As Of Date 12/04/2024 Noted Resolved Sebaceous cyst [L72.3] 05/15/200704/16 (more content not included)... Normal [facility] CBC W Auto Differential pane l (Bld)on 07-16-2024 Basophils (Bld) [#/Vol] 0.07 10*3/uL Normal <0.11 [facility] Comment on above: Order Comment: Speci men Type: BLOOD SPECIMENOrdering Facility: [facility] Address: [address] [place] [address] Performed By: #### 5 7021-8 ####[facility] LABIA [id number] [place] [address] [place] Basophils/100 WBC (Bld) 1.1 % Normal [facility] Comment on above: Order Comment: Speci men Type: BLOOD SPECIMENOrdering Facility: [facility] Address: [address] [place] [address] Performed By: #### 5 7021-8 ####[facility] LABCLIA [id number] [place] [address] [place] Differential cell count method Nom (Bld) Auto Normal [facility] Comment on above: Order Comment: Speci men Type: BLOOD SPECIMENOrdering Facility: [facility] Address: [address] [place] [address] Performed By: #### 5 7021-8 ####[facility] LABCLIA [id number] [address], [facility] [place] Eosinophils (Bld) [#/Vol] 0.11 10*3/uL Normal <0.46 [facility] Comment on above: Order Comment: Speci men Type: BLOOD SPECIMENOrdering Facility: [facility] Address: [address] [place] [address] Performed By: #### 5 7021-8 ####[facility] LABCLIA [id number] [address], [place] [address] [place] Eosinophils/100 WBC (Bld) 1.8 % Normal [facility] Comment on above: Order Comment: Speci men Type: BLOOD SPECIMENOrdering Facility: [facility] Address: [address] [place] [address] Performed By: #### 5 7021-8 ####[facility] LABCLIA [id number] [address], [place] [address] [place] Erythrocyte distribution width (RBC) [Ratio] 15.1 % High 11.5-15.0 [facility] Comment on above: Order Comment: Speci men Type: BLOOD SPECIMENOrdering Facility: [facility] Address: [address] [place] [address] Performed By: #### 5 7021-8 ####[facility] LABCLIA [id number] [address], [place] [address] [place] Hematocrit (Bld) [Volume fraction] 38.1 % Normal 36.0-46.0 [facility] Comment on above: Order Comment: Speci men Type: BLOOD SPECIMENOrdering Facility: [facility] Address: [address] [place] [address] Performed By: #### 5 7021-8 ####[facility] LABCLIA [id number] [address], [facility] [place] Hemoglobin (Bld) [Mass/Vol] 11.4 g/dL Low 11.5-15. 5 [facility] Comment on above: Order Comment: Speci men Type: BLOOD SPECIMENOrdering Facility: [facility] Address: [address] [place] [address] Performed By: #### 5 7021-8 ####[facility] LABCLIA [id number] [place] [id number] [place] Immature granulocytes (Bld) [#/Vol] 0.04 10*3/uL Normal <0.10 [facility] Comment on above: Order Comment: Speci men Type: BLOOD SPECIMENOrdering Facility: [facility] Address: [address] [place] [address] Performed By: #### 5 7021-8 ####[facility] LABCLIA [id number] [place] [address] [place] Immature granulocytes/100 WBC (Bld) 0.7 % Normal [facility] Comment on above: Order Comment: Speci men Type: BLOOD SPECIMENOrdering Facility: [facility] Address: [address] [place] [address] Performed By: #### 5 7021-8 ####[facility] LABCLIA [id number] [place] [address] [place] Lymphocytes (Bld) [#/Vol] 1.74 10*3/uL Normal 1.00-4.0 0 [facility] Comment on above: Order Comment: Speci men Type: BLOOD SPECIMENOrdering Facility: [facility] Address: [address] [place] [address] Performed By: #### 5 7021-8 ####[facility] LABCLIA [id number] [place] [address] [place] Lymphocytes/100 WBC (Bld) 28.6 % Normal [facility] Comment on above: Order Comment: Speci men Type: BLOOD SPECIMENOrdering Facility: [facility] Address: [address] [place] [address] Performed By: #### 5 7021-8 ####[facility] LABCLIA [id number] [place] [address] [place] MCH (RBC) [Entitic mass] 22.9 pg Low 26.0-34.0 [facility] Comment on above: Order Comment: Speci men Type: BLOOD SPECIMENOrdering Facility: [facility] Address: [address] [place] [address] Performed By: #### 5 7021-8 ####[facility] LABIA [id number] [place] [address] [place] MCHC (RBC) [Mass/Vol] 29.9 g/dL Low 30.5-36.0 [facility] Comment on above: Order Comment: Speci men Type: BLOOD SPECIMENOrdering Facility: [facility] Address: [address] [place] [address] Performed By: #### 5 7021-8 ####[facility] LABIA [id number] [place] [address] [place] MCV (RBC) [Entitic vol] 76.5 fL Low 80.0-100.0 [facility] Comment on above: Order Comment: Speci men Type: BLOOD SPECIMENOrdering Facility: [facility] Address: [address] [place] [address] Performed By: #### 5 7021-8 ####[facility] LABIA [id number] [place] [address] [place] Monocytes (Bld) [#/Vol] 0.55 10*3/uL Normal <0.87 [facility] Comment on above: Order Comment: Speci men Type: BLOOD SPECIMENOrdering Facility: [facility] Address: [address] [place] [address] Performed By: #### 5 7021-8 ####[facility] LABIA [id number] [place] [address] [place] Monocytes/100 WBC (Bld) 9.0 % Normal [facility] Comment on above: Order Comment: Speci men Type: BLOOD SPECIMENOrdering Facility: [facility] Address: [address] [place] [address] Performed By: #### 5 7021-8 ####[facility] LABCLIA [id number] [place] [address] [place] Neutrophils (Bld) [#/Vol] 3.58 10*3/uL Normal 1.45-7.5 0 [facility] Comment on above: Order Comment: Speci men Type: BLOOD SPECIMENOrdering Facility: [facility] Address: [address] [place] [address] Performed By: #### 5 7021-8 ####[facility] LABCLIA [id number] [place] [address] [place] Neutrophils/100 WBC (Bld) 58.8 % Normal [facility] Comment on above: Order Comment: Speci men Type: BLOOD SPECIMENOrdering Facility: [facility] Address: [address] [place] [address] Performed By: #### 5 7021-8 ####[facility] LABCLIA [id number] [place] [address] [place] Nucleated RBC (Bld) [#/Vol] 10*3/uL Normal <0.01 [facility] Comment on above: Order Comment: Speci men Type: BLOOD SPECIMENOrdering Facility: [facility] Address: [address] [place] [address] Performed By: #### 5 7021-8 ####[facility] LABCLIA [id number] [place] [address] [place] Nucleated RBC/100 WBC (Bld) [Ratio] 0.0 /100 WBC Normal [facility] Comment on above: Order Comment: Speci men Type: BLOOD SPECIMENOrdering Facility: [facility] Address: [address] [place] [address] Performed By: #### 5 7021-8 ####[facility] LABCLIA [id number] [address] [place] [address] [place] Platelet mean volume (Bld) [Entitic vol] 10.7 fL Normal 9.0-12.7 [facility] Comment on above: Order Comment: Speci men Type: BLOOD SPECIMENOrdering Facility: [facility] Address: [address] [place] [address] Performed By: #### 5 7021-8 ####[facility] LABCLIA [id number] [address] [place] [address] [place] Platelets (Bld) [#/Vol] 291 10*3/uL Normal 150-400 [facility] Comment on above: Order Comment: Speci men Type: BLOOD SPECIMENOrdering Facility: [facility] Address: [address] [place] [address] Performed By: #### 5 7021-8 ####[facility] LABIA [id number] [address] [place] [address] [place] RBC (Bld) [#/Vol] 4.98 10*6/uL Normal 3.90-5.20 [facility] Comment on above: Order Comment: Speci men Type: BLOOD SPECIMENOrdering Facility: [facility] Address: [address] [place] [address] Performed By: #### 5 7021-8 ####[facility] LABCLIA [id number] [address] [place] [address] [place] WBC (Bld) [#/Vol] 6.09 10*3/uL Normal 3.70-11.00 [facility] Comment on above: Order Comment: Speci men Type: BLOOD SPECIMENOrdering Facility: [facility] Address: [address] [place] [address] Performed By: #### 5 7021-8 ####[facility] LABIA [id number] [address] [address] [place] [facility] CNOVon 07-16-2024 CNOV Office Visit (INTMWS ) ROMIAN BAILEY ([id number]) 1950 F CHT Date Time Provider Department 07/16/24 1:40 PM BASILIO CROUCH INTMWS During your visit today, we recorded the following information about you: Pulse Blood pressure Weight 57/minute 129/77 88.7 kg Basilio Crouch APRN.PAPER CARRIER 07/16/2024 2:19 PM Signed SUBJECTIVE Romain Giulia Bailey is a 74 year old female here today for a check up on her medical problems. Chief Complaint Patient presents with: F/U 6 months: states legs have been feeling heavy for about 2 weeks started after a really sharp pain that radiated across lower back and down. Denies any incontinence of bowel or bladder claritin has not been as effective in the last 2 months. knee pain and question a motorized scooter Would like a referral to dermatology for a skin check HPI Romain is a 74-year-old female with a history of sacroiliitis, sciatica, and colitis, presenting with acute onset of severe lower back pain and subsequent heaviness in the legs. Romain reports a sudden onset of severe lower back pain that occurred while standing at the counter putting away groceries. She describes the pain as a sharp sensation, like somebody punched me right in the back, really hard, which originated in the center of her back and radiated from left to right, causing her to fall to the floor. She managed to get up by pulling on drawers and counters. The pain was so intense that it caused her to break out in a sweat. She applied an ice pack and alternated between ice and heat for a couple of days, noting that heat provided more relief than ice. The pain has since subsided but left her lower back feeling tender, particularly in the very low spine and on both sides. Approximately 6-7 days after the initial back pain, she began experiencing a sensation of heaviness in her legs, describing it as feeling like she had cement in my feet when walking. This heaviness is more pronounced when she sits for extended periods. She also reports mild numbness and tingling in her legs, particularly from the ankles down, with the right leg being more affected than the left. She denies any issues with bowel or bladder function and reports no numbness in the perineal area. Romain has a history of degenerative disc disease and grade 1 anterior listhesis of L4 and L5, as confirmed by an x-ray in July 2022. She also has a history of colitis but reports no changes in her usual symptoms. She uses a cane and a walker for mobility and has a handicap sticker for her car due to difficulty walking more than 200 feet without discomfort. She inquires about the possibility of obtaining a motorized scooter through her insurance. Additionally, Romain reports a recent severe sunburn acquired [place] a [place] the [place] on [place]. Despite wearing SPF 70 sunscreen and reapplying it every 20-25 minutes, she experienced significant erythema and swelling, particularly on her hands, which she managed with aloe vera and ice packs. She expresses interest in a dermatology referral for a routine skin check and to discuss her sunburn and dry skin. She also requests a refill for loratadine, noting that it has been less effective in managing her allergy symptoms since the onset of spring. She inquires about switching to Zyrtec and mentions financial constraints, stating she has $5 left in her bank account until she receives her check on the first of the month. Her medications were reviewed today and her list is now up to date. Medications Current Outpatient Medications Medication Sig apixaban (ELIQUIS) 5 mg tab(s) Take 1 tablet by mouth two times a day. atorvastatin (LIPITOR) 40 mg tablet Take 1 tablet by mouth once daily. metoprolol tartrate, short acting, (LOPRESSOR) 25 mg tablet Take 1 tablet by mouth two times a day. pantoprazole DR (PROTONIX) 20 mg tablet Take 1 tablet by mouth once daily. verapamil SR (CALAN SR) 240 mg CR tablet Take 1 tablet by mouth daily at bedtime. ferrous sulfate 325 mg (65 mg iron) tablet Take 1 tablet by mouth once daily. ondansetron orally disintegrating (ZOFRAN ODT) 4 mg disintegrating tablet Take 1 tablet by mouth every 8 hours as needed for nausea/vomiting. EPINEPHrine (EPIPEN) 0.3 mg/0.3 mL auto-injector Inject 0.3 ml intramuscular as needed. albuterol HFA (PROVENTIL HFA, VENTOLIN HFA) 90 mcg/actuation inhaler Inhale 2 Puffs as instructed every 6 hours as needed. fluticasone-salmetero l (ADVAIR DISKUS) 100-50 mcg/dose inhaler Inhale 1 Puff as instructed two times a day. RINSE AND GARGLE MOUTH WITH WATER AFTER EACH USE. fluticasone (FLONASE) 50 mcg/actuation nasal spray Use 2 Sprays in each nostril once daily. benzonatate (TESSALON PERLES) 100 mg capsule Take 2 capsules by mouth three times a day as needed. albuterol (PROVENTIL) 2.5 mg /3 mL (0.083 %) nebulizer solution Use 3 mL via (more content not included)... Normal [facility] Comprehensive metabolic 2000 panelon 07-16-2024 Albumin [Mass/Vol] 4.2 g/dL Normal 3.9-4.9 [facility] Comment on above: Order Comment: Speci men Type: BLOOD SPECIMENOrdering Facility: [facility] Address: [address] [place] [address] Performed By: #### 2 4323-8, 41051-7, 29016-0, 2275-4 ####[facility] LABIA [id number] [place] [address] [place] ALP [Catalytic activity/Vol] 147 U/L High 34-123 [facility] Comment on above: Order Comment: Speci men Type: BLOOD SPECIMENOrdering Facility: [facility] Address: [address] [place] [address] Performed By: #### 2 4323-8, 72156-9, 97268-8, 2275-4 ####[facility] LABCLIA [id number] [place] [address] [place] ALT [Catalytic activity/Vol] 14 U/L Normal 7-38 [facility] Comment on above: Order Comment: Speci men Type: BLOOD SPECIMENOrdering Facility: [facility] Address: [address] [place] [address] [place] [address] Performed By: #### 2 4323-8, 52719-2, 36815-0, 2275-4 ####[facility] LABCLIA [id number] [place] [address] [place] Anion gap [Moles/Vol] 10 mmol/L Normal 8-15 [facility] Comment on above: Order Comment: Speci men Type: BLOOD SPECIMENOrdering Facility: [facility] Address: [address] [place] [address] Performed By: #### 2 4323-8, 58603-0, , 2275-05 ####[facility] LABCLIA [id number] [place] [address] [place] AST [Catalytic activity/Vol] 19 U/L Normal 13-35 [facility] Comment on above: Order Comment: Speci men Type: BLOOD SPECIMENOrdering Facility: [facility] Address: [address] [place] [address] Performed By: #### 2 4323-8, 01578-1, 13027-2, 4 ####[facility] LABCLIA [id number] [place] [address] [place] Bilirubin [Mass/Vol] 0.6 mg/dL Normal 0.2-1.3 [facility] Comment on above: Order Comment: Speci men Type: BLOOD SPECIMENOrdering Facility: [facility] Address: [address] [place] [address] Performed By: #### 2 4323-8, 43966-5, 25745-9, 4 ####[facility] LABCLIA [id number] [place] [id number] [place] Calcium [Mass/Vol] 9.1 mg/dL Normal 8.5-10.2 [facility] Comment on above: Order Comment: Speci men Type: BLOOD SPECIMENOrdering Facility: [facility] Address: [address] [place] [address] Performed By: #### 2 4323-8, 62341-2, 30060-2, 2275-4 ####[facility] LABCLIA [id number] [place] [id number] [place] Chloride [Moles/Vol] 106 mmol/L Normal 98-107 [facility] Comment on above: Order Comment: Speci men Type: BLOOD SPECIMENOrdering Facility: [facility] Address: [address] [place] [address] Performed By: #### 2 4323-8, 81286-0, 80040-4, 2275-05 ####[facility] LABCLIA [id number] [place] [address] [place] CO2 [Moles/Vol] 23 mmol/L Normal 22-30 [facility] Comment on above: Order Comment: Speci men Type: BLOOD SPECIMENOrdering Facility: [facility] Address: [address] [place] [address] Performed By: #### 2 4323-8, 16644-4, 18349-8, 2275-05 ####[facility] LABCLIA [id number] [place] [address] [place] Creatinine [Mass/Vol] 0.86 mg/dL Normal 0.58-0.96 [facility] Comment on above: Order Comment: Speci men Type: BLOOD SPECIMENOrdering Facility: [facility] Address: [address] [place], [place] [address] Performed By: #### 2 4323-8, 03565-3, 29305-9, 2275-4 ####[facility] LABCLIA [id number] [place] [id number] [place] Creatinine and Glomerular filtration rate.predicted panel (S/P/Bld) 71 mL/min/1.73m??? Normal >=60 [facility] Comment on above: Order Comment: Christoph lilly Type: BLOOD SPECIMENOrdering Facility: [facility] Address: [address] [place] [address] Result Comment: Hermila mated Glomerular Filtration Rate [...] reflect actual GFR. Performed By: #### 2 4323-8, 62279-0, 06221-7, 2275- ####[facility] LABCLIA [id number] [address] [address] [place] Glucose [Mass/Vol] 86 mg/dL Normal 74-99 [facility] Comment on above: Order Comment: Christoph lilly Type: BLOOD SPECIMENOrdering Facility: [facility] Address: [address] [place] [address] Result Comment: The [place] Diabetes Association (ADA) provides guidance for cutoff [...] Standards of Medical Care in Diabetes 2016, [place] [employer] Association. Diabetes Care. 2016.39(Suppl 1). Performed By: #### 2 4323-8, 44940-6, 02052-3, 2275-4 ####[facility] LABCLIA [id number] [address] [address] [place] Potassium [Moles/Vol] 4.0 mmol/L Normal 3.7-5.1 [facility] Comment on above: Order Comment: Speci men Type: BLOOD SPECIMENOrdering Facility: [facility] Address: [address] [place] [address] Performed By: #### 2 4323-8, 12785-6, 84087-6, 6-4 ####[facility] LABCLIA [id number] [facility] [address] [place] [address] [place] Protein [Mass/Vol] 6.6 g/dL Normal 6.3-8.0 [facility] Comment on above: Order Comment: Speci men Type: BLOOD SPECIMENOrdering Facility: [facility] Address: [address] [place] [address] Performed By: #### 2 4323-8, 15883-0, 42483-2, 2275-4 ####[facility] LABCLIA [id number] [address], [facility] [place] Sodium [Moles/Vol] 139 mmol/L Normal 136-144 [facility] Comment on above: Order Comment: Speci men Type: BLOOD SPECIMENOrdering Facility: [facility] Address: [address] [place] [address] Performed By: #### 2 4323-8, 79957-7, 62459-3, 2275-4 ####[facility] LABCLIA [id number] [address] [place] [address] [place] Urea nitrogen [Mass/Vol] 20 mg/dL Normal 7-21 [facility] Comment on above: Order Comment: Speci men Type: BLOOD SPECIMENOrdering Facility: [facility] Address: [address] [place] [address] Performed By: #### 2 4323-8, 28220-0, 50132-0, 2275-4 ####[facility] LABCLIA [id number] [facility] [address] [place] [address] [place] Ferritin SerPl-mCncon 2024 Ferritin [Mass/Vol] 15.3 ng/mL Normal 14.7-205.1 [facility] Comment on above: Order Comment: Speci men Type: BLOOD SPECIMENOrdering Facility: [facility] Address: [address] [place] [address] Performed By: #### 2 4323-8, 28197-0, 21902-0, 2275-4 ####[facility] LABCLIA [id number] [place] [address] [place] Iron and Iron binding capaci ty panel 07-16-2024 Iron [Mass/Vol] 33 ug/dL Low 41-186 [facility] Comment on above: Order Comment: Speci men Type: BLOOD SPECIMENOrdering Facility: [facility] Address: [address] [place] [address] Performed By: #### 2 4323-8, 84586-1, 07316-2, 2275-4 ####[facility] LABCLIA [id number] [place] [address] [place] Iron binding capacity [Mass/Vol] 351 ug/dL Normal 232-386 [facility] Comment on above: Order Comment: Speci men Type: BLOOD SPECIMENOrdering Facility: [facility] Address: [address] [place] [address] Performed By: #### 2 4323-8, 24739-2, 04420-6, 2275-4 ####[facility] LABCLIA [id number] [place] [id number] [place] Iron/TIBC [Molar ratio] 9.4 % Low 15.0-57.0 [facility] Comment on above: Order Comment: Speci men Type: BLOOD SPECIMENOrdering Facility: [facility] Address: [address] [place] [address] Performed By: #### 2 4323-8, 57345-1, 96985-1, 2275-4 ####[facility] LABCLIA [id number] [place] [id number] [place] Magnesium SerPl-mCncon 07-16 Magnesium [Mass/Vol] 2.0 mg/dL Normal 1.7-2.3 [facility] Comment on above: Order Comment: Speci men Type: BLOOD SPECIMENOrdering Facility: [facility] Address: [address] [place] [address] Performed By: #### 2 4323-8, 06974-5, 92107-2, 2276-4 ####[facility] LABCLIA [id number] [place] [id number] [place] XR LUMBAR 3V AP/LAT/L5-S1on 07-16-2024 XR LUMBAR 3V AP/LAT/L5-S1 * * *Final Rep ort* * * DATE OF EXAM: Jul 16 2024 2:48PM WOX 5228 - XR LUMBAR 3V AP/LAT/L5-S1 / PROCEDURE REASON: Sacroiliitis * * * * Physician Interpretation * * * * EXAM TITLE: XR LUMBAR 3V AP/LAT/L5-S1 EXAM DATE/TIME: 07/16/2024 2:48 PM COMPARISON: X-ray lumbar spine on 08/22/2022 CLINICAL INDICATION/HISTORY: Sciatica. TECHNIQUE: AP, lateral and cone down lateral views of the lumbar spine are presented. FINDINGS: There are five fcs-ury-peiepnz lumbar vertebrae. No fractures visualized. There is grade 1 L4 on L5 anterolisthesis. L2-3 and L4-5 disc space narrowing is demonstrated. There is moderate osteophyte formation. Facet arthrosis is present in the lower lumbar spine. Others: Moderate stool burden. IMPRESSION: Lumbar spine degenerative changes with multilevel disc space narrowing. 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 This is most likely due to a nature cause. Jose A Santiago M.D. 03/28/24 e AMENDED REPORT 03/28/24 0936 PATH REV previously reported as: Reviewed Performed By: #### L 100.0100, L501.5425, L500.4050, L501.2450 #### [facility] [address] [place], [address] Basic Metabolic Profile (BMP )on 03-26-2024 BUN/CRE 20.9 RATIO High 10-20 [facility] Comment on above: Performed By: #### L 501.5200, L500.2500, L501.2300 #### [facility] [address] [place], [address] CA,Total 8.6 mg/dL Normal 8.5-10.1 [facility] Comment on above: Performed By: #### L 501.5200, L500.2500, L501.2300 #### [facility] [address] [place], [address] Chloride [Moles/Vol] 110 mmol/L High 98-107 [facility] Comment on above: Performed By: #### L 501.5200, L500.2500, L501.2300 #### [facility] [address] [place], [address] CO2 [Moles/Vol] 24.0 mmol/L Normal 21.0-32.0 [facility] Comment on above: Performed By: #### L 501.5200, L500.2500, L501.2300 #### [facility] [address] [place], [address] Creatinine [Mass/Vol] 0.72 mg/dL Normal 0.55-1.02 [facility] Comment on above: Result Comment: The validity of the calculated GFR GFRAA in patients over 70 years has not been determined. Clinical correlation is essential. Performed By: #### L 501.5200, L500.2500, L501.2300 #### [facility] [address] [place], [address] ECRCL 66.66 ml/min Normal [facility] Comment on above: Performed By: #### L 501.5200, L500.2500, L501.2300 #### [facility] [address] [place], [address] EST GFR - AA 103 mL/min Normal >60 [facility] Comment on above: Result Comment: Afri can [place] GFR Calc Performed By: #### L 501.5200, L500.2500, L501.2300 #### [facility] [address] [place], [address] GAP 8 Normal 5-15 [facility] Comment on above: Performed By: #### L 501.5200, L500.2500, L501.2300 #### [facility] [address] [place], [address] GFR/1.73 sq M.predicted among non-blacks MDRD (S/P/Bld) [Vol rate/Area] 85 mL/min/{1.73_m2} Normal >60 [facility] Comment on above: Result Comment: Non- GFR Calc Performed By: #### L 501.5200, L500.2500, L501.2300 #### [facility] [address] [place], [address] Glucose [Mass/Vol] 93 mg/dL Normal 74-106 [facility] Comment on above: Performed By: #### L 501.5200, L500.2500, L501.2300 #### [facility] [address] [place], [address] Potassium [Moles/Vol] 3.8 mmol/L Normal 3.5-5.1 [facility] Comment on above: Performed By: #### L 501.5200, L500.2500, L501.2300 #### [facility] [address] [place], [address] Sodium [Moles/Vol] 142 mmol/L Normal 136-145 [facility] Comment on above: Performed By: #### L 501.5200, L500.2500, L501.2300 #### [facility] [address] [place], [address] Urea nitrogen [Mass/Vol] 15 mg/dL Normal 7-18 [facility] Comment on above: Performed By: #### L 501.5200, L500.2500, L501.2300 #### [facility] [address] [place], [address] CBC W/Diff, Automatedon 02-27 CRENATED RBC RARE Normal [facility] Comment on above: Performed By: #### L 100.0100 #### [facility] [address] [place], [address] OVALOCYTE 2+ Normal [facility] Comment on above: Performed By: #### L 100.0100 #### [facility] [address] [place], [address] Anisocytosis Ql (Bld) 1+ Normal [facility] Comment on above: Performed By: #### L 100.0100 #### [facility] [address] [place], [address] Magnesiumon 03-26-2024 Magnesium [Mass/Vol] 2.2 mg/dL Normal 1.6-2.6 [facility] Comment on above: Performed By: #### L 501.5200, L500.2500, L501.2300 #### [facility] [address] [place], [address] Phosphoruson 03-26-2024 Phosphate [Mass/Vol] 4.2 mg/dL Normal 2.5-4.9 [facility] Comment on above: Performed By: #### L 501.5200, L500.2500, L501.2300 #### [facility] [address] [place], [address] CBC W/Diff, Automatedon 02-27 Anisocytosis Ql (Bld) 1+ Normal [facility] Comment on above: Performed By: #### L 100.0100, L501.5425, L500.4050, L501.2450 #### [facility] [address] [place], [address] PLT EST A Normal ADEQ [facility] Comment on above: Performed By: #### L 100.0100, L501.5425, L500.4050, L501.2450 #### [facility] [address] [place], [address] ACANTHOCYTE 1+ Normal [facility] Comment on above: Performed By: #### L 100.0100, L501.5425, L500.4050, L501.2450 #### [facility] [address] [place], [address] OVALOCYTE 2+ Normal [facility] Comment on above: Performed By: #### L 100.0100, L501.5425, L500.4050, L501.2450 #### [facility] [address] [place], [address] POLYCHROMASIA 1+ Normal [facility] Comment on above: Performed By: #### L 100.0100, L501.5425, L500.4050, L501.2450 #### [facility] [address] [place], [address] Chest without Contraston Chest without Contrast [facility] [address] [place] [address] Chest without Contrast MR#: [id number] Acct: [id number] Name: ROMAIN BAILEY Rep #: [id number] : 1950 F 74 From: Cristhian lawson MD PCP: Dr. Fatemeh Rogers MD Status: ADM ANN MARIE Study: Chest without Contrast Date of Exam: 03/25/24 Exam# [id number] Ordering Dr: Francesca Portilol DO [id number] INDICATION: Suspected LLL pneumonia on CXR. EXAMINATION: CT CHEST WITHOUT CONTRAST - CT Chest W/O Contrast Injection TECHNIQUE: Helically acquired images were obtained of the chest. The protocol utilizes one or more of the following dose reduction techniques: automated exposure control, adjustment of mA and/or kV according to patient size,and/or use of iterative reconstruction technique. IV Contrast dosage and agent: None. RADIATION DOSAGE (If Supplied By Facility): CTDIvol = ( 13.75 ) mGy, DLP = ( 522.09 ) mGycm COMPARISON: No relevant prior comparison study available FINDINGS: LUNGS, PLEURA AND LARGE AIRWAYS: The central airways are patent. Linear basilar atelectasis. Mild scarring at the lung apices. No masses, consolidation, or edema. No pleural effusion. No pneumothorax. THYROID: No thyroid lesions. HEART AND PERICARDIUM: Heart size is normal. No pericardial effusion. CORONARY ARTERIES: Coronary artery calcification is seen. VESSELS: Thoracic aorta is not dilated. MEDIASTINUM AND MARU: Mediastinal lymphadenopathy. Pretracheal lymph node measures 1.6 cm. Esophagus is unremarkable. No hiatal hernia. UPPER ABDOMEN: No acute pathology. Simple left renal cysts which require no specific follow-up. BONES: No suspicious lytic or blastic abnormality. Mild degenerative changes of the spine. CT/Chest without Contrast IMPRESSION: Linear atelectasis at the lung bases. No dense consolidation. There is mediastinal lymphadenopathy, nonspecific. Electronically Signed: Cristhian Roger MD at 3:21 EST , CC: Dr. Francesca Portillo DO; Dr. 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, [address] Albumin/Globulin [Mass ratio] 0.8 {ratio} Low 0.9-2.4 [facility] Comment on above: Performed By: #### L 100.0100, L501.5425, L500.4050, L501.2450 #### [facility] [address] [place], [address] ALK P 144 U/L High 45-117 [facility] Comment on above: Performed By: #### L 100.0100, L501.5425, L500.4050, L501.2450 #### [facility] [address] [place], [address] ALT [Catalytic activity/Vol] 20 U/L Normal 13-56 [facility] Comment on above: Performed By: #### L 100.0100, L501.5425, L500.4050, L501.2450 #### [facility] [address] [place], [address] AST [Catalytic activity/Vol] 20 U/L Normal 15-37 [facility] Comment on above: Performed By: #### L 100.0100, L501.5425, L500.4050, L501.2450 #### [facility] [address] [place], [address] Bilirubin [Mass/Vol] 0.50 mg/dL Normal 0.20-1.00 [facility] Comment on above: Result Comment: For patients on eltrombopag therapy, use of Dimension Grandin TBIL is not recommended. Performed By: #### L 100.0100, L501.5425, L500.4050, L501.2450 #### [facility] [address] [place], [address] BUN/CRE 22.5 RATIO High 10-20 [facility] Comment on above: Performed By: #### L 100.0100, L501.5425, L500.4050, L501.2450 #### [facility] [address] [place], [address] CA,Total 8.3 mg/dL Low 8.5-10.1 [facility] Comment on above: Performed By: #### L 100.0100, L501.5425, L500.4050, L501.2450 #### [facility] [address] [place], [address] Chloride [Moles/Vol] 112 mmol/L High 98-107 [facility] Comment on above: Performed By: #### L 100.0100, L501.5425, L500.4050, L501.2450 #### [facility] [address] [place], [address] CO2 [Moles/Vol] 23.0 mmol/L Normal 21.0-32.0 [facility] Comment on above: Performed By: #### L 100.0100, L501.5425, L500.4050, L501.2450 #### [facility] [address] [place], [address] Creatinine [Mass/Vol] 0.80 mg/dL Normal 0.55-1.02 [facility] Comment on above: Result Comment: The validity of the calculated GFR GFRAA in patients over 70 years has not been determined. Clinical correlation is essential. Performed By: #### L 100.0100, L501.5425, L500.4050, L501.2450 #### [facility] [address] [place], [address] ECRCL 65.59 ml/min Normal [facility] Comment on above: Performed By: #### L 100.0100, L501.5425, L500.4050, L501.2450 #### [facility] [address] [place], [address] EST GFR - AA 90 mL/min Normal >60 [facility] Comment on above: Result Comment: Afri can Nigerien GFR Calc Performed By: #### L 100.0100, L501.5425, L500.4050, L501.2450 #### [facility] [address] [place], [address] GAP 7 Normal 5-15 [facility] Comment on above: Performed By: #### L 100.0100, L501.5425, L500.4050, L501.2450 #### [facility] [address] [place], [address] GFR/1.73 sq M.predicted among non-blacks MDRD (S/P/Bld) [Vol rate/Area] 75 mL/min/{1.73_m2} Normal >60 [facility] Comment on above: Result Comment: Non- GFR Calc Performed By: #### L 100.0100, L501.5425, L500.4050, L501.2450 #### [facility] [address] [place], [address] Globulin (S) [Mass/Vol] 3.4 g/dL Normal 2.2-4.2 [facility] Comment on above: Performed By: #### L 100.0100, L501.5425, L500.4050, L501.2450 #### [facility] [address] [place], [address] Glucose [Mass/Vol] 91 mg/dL Normal 74-106 [facility] Comment on above: Performed By: #### L 100.0100, L501.5425, L500.4050, L501.2450 #### [facility] [address] [place], [address] Potassium [Moles/Vol] 3.8 mmol/L Normal 3.5-5.1 [facility] Comment on above: Performed By: #### L 100.0100, L501.5425, L500.4050, L501.2450 #### [facility] [address] [place], [address] Sodium [Moles/Vol] 142 mmol/L Normal 136-145 [facility] Comment on above: Performed By: #### L 100.0100, L501.5425, L500.4050, L501.2450 #### [facility] [address] [place], [address] T PROT 6.2 g/dL Low 6.4-8.2 [facility] Comment on above: Performed By: #### L 100.0100, L501.5425, L500.4050, L501.2450 #### [facility] [address] [place], [address] Urea nitrogen [Mass/Vol] 18 mg/dL Normal 7-18 [facility] Comment on above: Performed By: #### L 100.0100, L501.5425, L500.4050, L501.2450 #### [facility] [address] [place], [address] Hemoglobinon 03-25-2024 Hemoglobin (Bld) [Mass/Vol] 10.5 g/dL Low 12.0-15. 0 [facility] Comment on above: Performed By: #### L 100.0100, L501.5425, L500.4050, L501.2450 #### [facility] [address] [place], [address] Magnesiumon 03-25-2024 Magnesium [Mass/Vol] 2.0 mg/dL Normal 1.6-2.6 [facility] Comment on above: Performed By: #### L 100.0100, L501.5425, L500.4050, L501.2450 #### [facility] [address] [place], [address] Phosphoruson 03-25-2024 Phosphate [Mass/Vol] 3.8 mg/dL Normal 2.5-4.9 [facility] Comment on above: Performed By: #### L 100.0100, L501.5425, L500.4050, L501.2450 #### [facility] [address] [facility] [place], [address] RESPIRATORY PANEL MOLECULARo n 03-25-2024 RP PANEL Normal Reference Range = Not Detected Nucleic acid amplification test method ADENOVIRUS Not Detected INFLUENZA A Not Detected INFLUENZA A (SUBTYPE H1) Not Detected INFLUENZA A (SUBTYPE H3) Not Detected INFLUENZA B Not Detected HUMAN METAPHNEUMO Not Detected PARAINFLUENZA 1 Not Detected PARAINFLUENZA 2 Not Detected PARAINFLUENZA 3 Not Detected PARAINFLUENZA 4 Not Detected RHINOVIRUS Not Detected RSV A Not Detected RSV B Not Detected Normal [facility] Comment on above: Performed By: #### M 100.638 #### [facility] [address] [facility] [place], [address] 12 Lead EKGon 03-24-2024 12 Lead EKG [facility] Services [address] [place] [address] 12 Lead EKG 03/24/24 1526 MR#: [id number] Acct: [id number] Name: ROMAIN BAILEY Rep #: [id number] : 1950 74 From: Mari Murphy MD Attending Dr: Dr. Smiley Nino DO Status: ADM I NO Ordering Dr: Candelario Coreas DO Date: 03/24/24 Location: MS3 Sex: F C Admitted: 03/24/24 Test Reason : SOB Blood Pressure : */* mmHG Vent. Rate : 61 BPM Atrial Rate : * BPM P-R Int : * ms QRS Dur : 74 ms QT Int : 432 ms P-R-T Axes : * 58 60 degrees QTcB Int : 434 ms Atrial fibrillation Abnormal ECG Confirmed by ANNELIESE ALLEN, CARLEEN ([id number]), electronic news gathering editor DERECK ALBA ([id number]) on 03/26/2024 6:26:33 AM Referred By: ANDRÉS/TA Confirmed By: CARLEEN MURPHY MD 03/26/24625 Date Mari Murphy MD CC: Dr. Smiley Nino DO; Dr. Fatemeh Rogers MD; Dr. Candelario Coreas DO Signed Normal [facility] BNP,B-Type NATRIURETIC PEPTI Masha 03-24-2024 Natriuretic peptide B (Bld) [Mass/Vol] 222.3 pg/mL High 0-100 [facility] Comment on above: Performed By: #### L 100.0100, L501.5425, L500.4050, L501.2450 #### [facility] [address] [place], [address] Basic Metabolic Profile (BMP )on 03-24-2024 BUN/CRE 12.6 RATIO Normal 10-20 [facility] Comment on above: Order Comment: 'TROP ' Serial specimen #1, #2 or #3: 1 Performed By: #### L 100.0100, L501.5425, L500.4050, L501.2450 #### [facility] [address] [place], [address] CA,Total 8.7 mg/dL Normal 8.5-10.1 [facility] Comment on above: Order Comment: 'TROP ' Serial specimen #1, #2 or #3: 1 Performed By: #### L 100.0100, L501.5425, L500.4050, L501.2450 #### [facility] [address] [place], [address] Chloride [Moles/Vol] 108 mmol/L High 98-107 [facility] Comment on above: Order Comment: 'TROP ' Serial specimen #1, #2 or #3: 1 Performed By: #### L 100.0100, L501.5425, L500.4050, L501.2450 #### [facility] [address] [place], [address] CO2 [Moles/Vol] 23.0 mmol/L Normal 21.0-32.0 [facility] Comment on above: Order Comment: 'TROP ' Serial specimen #1, #2 or #3: 1 Performed By: #### L 100.0100, L501.5425, L500.4050, L501.2450 #### [facility] [address] [place], [address] Creatinine [Mass/Vol] 1.03 mg/dL High 0.55-1.02 [facility] Comment on above: Order Comment: 'TROP ' Serial specimen #1, #2 or #3: 1 Result Comment: The validity of the calculated GFR GFRAA in patients over 70 years has not been determined. Clinical correlation is essential. Performed By: #### L 100.0100, L501.5425, L500.4050, L501.2450 #### [facility] [address] [place], [address] EST GFR - AA 68 mL/min Normal >60 [facility] Comment on above: Order Comment: 'TROP ' Serial specimen #1, #2 or #3: 1 Result Comment: Afri can Nigerien GFR Calc Performed By: #### L 100.0100, L501.5425, L500.4050, L501.2450 #### [facility] [address] [place], [address] GAP 7 Normal 5-15 [facility] Comment on above: Order Comment: 'TROP ' Serial specimen #1, #2 or #3: 1 Performed By: #### L 100.0100, L501.5425, L500.4050, L501.2450 #### [facility] [address] [place], [address] GFR/1.73 sq M.predicted among non-blacks MDRD (S/P/Bld) [Vol rate/Area] 56 mL/min/{1.73_m2} Low >60 [facility] Comment on above: Order Comment: 'TROP ' Serial specimen #1, #2 or #3: 1 Result Comment: Non- GFR Calc Performed By: #### L 100.0100, L501.5425, L500.4050, L501.2450 #### [facility] [address] [place], [address] Glucose [Mass/Vol] 164 mg/dL High 74-106 [facility] Comment on above: Order Comment: 'TROP ' Serial specimen #1, #2 or #3: 1 Result Comment: Fast ing Glucose result greater than or equal to 126 mg/dL suggests DIABETES MELLITUS per A.D.A. criteria. Performed By: #### L 100.0100, L501.5425, L500.4050, L501.2450 #### [facility] [address] [place], [address] Potassium [Moles/Vol] 3.4 mmol/L Low 3.5-5.1 [facility] Comment on above: Order Comment: 'TROP ' Serial specimen #1, #2 or #3: 1 Performed By: #### L 100.0100, L501.5425, L500.4050, L501.2450 #### [facility] [address] [place], [address] Sodium [Moles/Vol] 138 mmol/L Normal 136-145 [facility] Comment on above: Order Comment: 'TROP ' Serial specimen #1, #2 or #3: 1 Performed By: #### L 100.0100, L501.5425, L500.4050, L501.2450 #### [facility] [address] [place], [address] Urea nitrogen [Mass/Vol] 13 mg/dL Normal 7-18 [facility] Comment on above: Order Comment: 'TROP ' Serial specimen #1, #2 or #3: 1 Performed By: #### L 100.0100, L501.5425, L500.4050, L501.2450 #### [facility] [address] [place], [address] Chest 1 View (Portable)on Chest 1 View (Portable) [facility] Imaging Services [address] [place] [address] Chest 1 View (Portable) MR#: [id number] Acct: [id number] Name: ROMAIN BAILEY Rep #: [id number] : 1950 F 74 From: Josh Davidson MD PCP: Dr. Fatemeh Rogers MD Status: REG ER Study: Chest 1 View (Portable) Date of Exam: 03/24/24 Exam# [id number] Ordering Dr: Candelario Coreas DO [id number] EXAM: XR CHEST, 1 VIEW CLINICAL INDICATION: Shortness of breath TECHNIQUE: Frontal view of the chest. COMPARISON: 01/26/24 FINDINGS: LUNGS AND PLEURAL SPACES: Small pleural effusion versus focal airspace disease at the left base peripherally. No other consolidation or edema. No pneumothorax. HEART: Unremarkable. Cardiac silhouette not enlarged. MEDIASTINUM: Central airways and mediastinal contour are unremarkable. BONES/JOINTS: Unremarkable. No acute fracture. SOFT TISSUES: Unremarkable. RAD/Chest 1 View (Portable) IMPRESSION: Small pleural effusion versus focal airspace disease (atelectasis versus infiltrate) at the left base peripherally. Electronically Signed: Josh Davidson MD at 17:53 EST , CC: Dr. Fatemeh Rogers MD; Dr. Candelario Coreas DO Apparel Patternmaker: Signed Normal [facility] Emergency Department Summary on 03-24-2024 Emergency Department Summary [facility] Medical Records Department [address] [place] [address] Emergency Department Summary 03/24/24 MR#: [id number] Acct: [id number] Name: ROMAIN BAILEY Rep #: [id number] : 1950 74 From: Candelario Coreas DO PCP: Dr. Fatemeh Rogers MD Status:ADM ANN MARIE Location: [place]3 [id number] HPI History of Present Illness Chief Complaint: Shortness of Breath PFSH PFS Medical History Ischemic colitis Symptomatic anemia History of cataract Diarrhea Post-menopausal Wears partial dentures History of Clostridium difficile infection Osteoarthritis Osteoarth NOS-up/arm 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 Ambulates with cane Back pain History of hiatal hernia History of stress test Non-smoker Colitis Acute lower gastrointestinal bleeding Osteoporosis Atrial fibrillation Traumatic hematoma of abdominal wall Secondary pulmonary arterial hypertension Paroxysmal atrial fibrillation Essential (primary) hypertension Suspected 2019 novel coronavirus infection (05/19/19) Community acquired pneumonia On amiodarone therapy 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 TIA (transient ischemic attack) Asthma HLD (hyperlipidemia) CVA (cerebral vascular accident) BMI greater than 30 Migraine GERD (gastroesophageal reflux disease) Home Medications ???Medication ???Instructions ???Recorded ???Last Taken ???Type epinephrine 0.3 mg/0.3 mL 0.3 mg IM X1 ALLERGIC REACTIONS 05/04/13 Unknown History injection, auto-injector loratadine 10 mg tablet 10 mg PO DAILY ALLERGIES 05/04/13 03/24/24 History albuterol sulfate 90 mcg/actuation 2 puff inhalation Q6H PRN Sob /Or 12/26/15 09/09/19 History aerosol inhaler Wheezing meclizine 25 mg tablet 25 mg PO Q6H PRN Dizziness 03/28/16 05/26/23 History fluticasone propionate 50 2 spray NASAL DAILY PRN Allergies 07/02/18 09/15/21 History mcg/actuation nasal spray,suspension albuterol sulfate 2.5 mg/3 mL 2.5 mg inhalation Q4H PRN Sob /Or 12/04/18 12/01/18 History (0.083 %) solution for nebulization Wheezing verapamil 240 mg tablet,extended 240 mg PO DAILY BP #90 tabs 12/30/19 03/24/24 Rx release atorvastatin 40 mg tablet 40 mg PO DAILY cholesterol 11/18/21 03/24/24 History metoprolol tartrate 25 mg tablet 25 mg PO BID 30 days #60 tabs 02/20/23 03/24/24 Rx apixaban 5 mg tablet (Eliquis) 5 mg PO BID thinner #180 tabs 08/10/23 03/24/24 Rx fluticasone 100 mcg-salmeterol 50 1 inh inhalation BID PRN shortness 12/19/23 Unknown History mcg/dose blistr powdr for of breath inhalation (Advair Diskus) benzonatate 100 mg capsule 100 mg PO BID PRN cough 03/24/24 03/24/24 History ferrous sulfate 325 mg (65 mg 325 mg PO DAILY 03/24/24 03/24/24 History iron) tablet (FeroSul) pantoprazole 40 mg tablet,delayed 40 mg PO DAILY stomach 03/24/24 03/24/24 History release Allergy/AdvReac Type Severity Reaction Status Date / Time adhesive tape Allergy Rash Verified 03/24/24 15:19 pepper (genus Capsicum) Allergy Hives Verified 03/24/24 15:19 propoxyphene HCl (From Allergy Rash Verified 03/24/24 15:19 Darvon) sulfamethoxazole (From Allergy Shortness Verified 03/24/24 15:19 Bactrim) of breath trimethoprim (From Bactrim) Allergy Shortness Verified 03/24/24 15:19 of breath venom-honey bee (bee venom Allergy Anaphylaxis Verified 03/24/24 15:19 (honey bee)) venom-wasp (wasp venom) Allergy Anaphylaxis Verified 03/24/24 15:19 Family History Father CAD (coronary artery disease) Brother Heart disease Surgical History History of colonoscopy (11/21/21) history of mastoid tumor resection History of total hysterectomy History of cholecystectomy Social History Smoking Status: Never smoker alcohol intake: current alcohol intake frequency: holidays/special occasions only substance use type: does not use caffeine: Yes Type: tea Number of servings: 2 EXAM Physical Exam Const Vital Signs: 03/24/24 15:19 03/24/24 16:41 03/24/24 16:42 Temperature 98.4 F 98.1 F Temperature Source Oral Oral Pulse Rate 66 72 Respiratory Rate 25 H 16 Respiratory Effort Respiratory Pattern Blood Pressure 129/49 H 143/78 H Blood Pressure Mean 75 99 Pulse Ox 94 95 95 Oxygen Delivery Method Room Air Room Air Room Air 03/24/24 16:42 03/24/24 16:43 03/24/24 17:13 Temperature Temperature Source Pulse Rate 97 Respiratory Rate 16 Respiratory Effort Short of Breath Respiratory Pattern Blood Pressure Blood Pressure Mean Pulse Ox 95 Oxygen Delivery Method Room Air 03/24/24 17:36 03/24/24 18:5 (more content not included)... Normal [facility] Ferritinon 03-24-2024 Ferritin [Mass/Vol] 30 ng/mL Normal 8-252 [facility] Comment on above: Performed By: #### L 100.0100, L501.5425, L500.4050, L501.2450 #### [facility] [address] [place], [address] H AND P Exam - Hospitaliston 03-24-2024 H&P Exam - Hospitalist [facility] Medical Records Department [address] [place] [address] H P Exam - Hospitalist 03/24/242030 MR#: [id number] Acct: [id number] Name: ROMAIN BAILEY Rep #: [id number] : 1950 74 From: Francesca Portillo DO PCP: Dr. Fatemeh Rogers MD Status:ADM ANN MARIE [place] [facility] [id number] HPI - General General Date of Admission: 03/24/24 Date of Service: 03/24/24 Chief Complaint: SOB, Cough and Generalized Weakness with Inability to Walk. HPI Narrative ROMAIN BAILEY, is a 74 F with a past medical history of essential hypertension; on metoprolol, obesity; with BMI of 30.5 this admission, paroxysmal atrial fibrillation; on verapamil and apixaban, history of TIA/CVA, history of mitral insufficiency, history of secondary pulmonary arterial hypertension, history of asthma, history of symptomatic anemia; with history of LGIB, history of pneumonia, suspected history of COVID-19 (2019), history of migraine headaches, history of vertigo; on meclizine, history of ischemic colitis, history of C. difficile infection (2020), history of traumatic hematoma of abdominal wall, history of total hysterectomy, history of cholecystectomy, history of mastoid tumor resection, history of colonoscopy (2021), history of GERD; on pantoprazole, osteoporosis and severe OA; with chronic back and knee pain with patient ambulating with walker at baseline who presents to [facility] ER complaining of shortness of breath, cough and being generally weak and unable to walk. Ms. Bailey reports her symptoms began approximately 2 days prior to admission with mild shortness of breath, nonproductive cough and pleuritic type chest pain with congestion. She admits to intermittent wheezing and subjective fever. She states she has been compliant with her medications including her apixaban. She denies associated chills, nausea, vomiting, diarrhea, constipation, blood in stools, blood in urine, lower extremity edema or headache but she does admit to her Left knee feeling like it was unstable and going to 'give out' at any time though she denies recent fall or other traumatic injury. In the ER she was noted to have a initial negative viral assay - but he second more extensive viral respiratory panel returned positive for Influenza A with unremarkable laboratory studies other than mild Hypokalemia of 3.4 mmol/L and mild Hyperglycemia of 164 mg/dL present on admission with a chest x-ray that revealed small pleural effusions versus focal airspace disease (atelectasis versus infiltrate) at Left base peripherally with the ER physician concerned for possible early signs of Pneumonia complicated by clinical evidence of Generalized Weakness with Ambulatory Dysfunction and she was then admitted to the general medical floor under observation status for status expected to be less than 2 midnights. [facility] Medical History Ischemic colitis Symptomatic anemia History of cataract Diarrhea Post-menopausal Wears partial dentures History of Clostridium difficile infection Osteoarthritis Osteoarth NOS-up/arm 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 Ambulates with cane Back pain History of hiatal hernia History of stress test Non-smoker Colitis Acute lower gastrointestinal bleeding Osteoporosis Atrial fibrillation Traumatic hematoma of abdominal wall Secondary pulmonary arterial hypertension Paroxysmal atrial fibrillation Essential (primary) hypertension Suspected 2019 novel coronavirus infection (05/19/19) Community acquired pneumonia On amiodarone therapy [facility] current use of anticoagulant TIA (transient ischemic attack) Asthma HLD (hyperlipidemia) CVA (cerebral vascular accident) BMI greater than 30 Migraine GERD (gastroesophageal reflux disease) Home Medications ???Medication ???Instructions ???Recorded ???Last Taken ???Type epinephrine 0.3 mg/0.3 mL 0.3 mg IM X1 ALLERGIC REACTIONS 05/04/13 Unknown History injection, auto-injector loratadine 10 mg tablet 10 mg PO DAILY ALLERGIES 05/04/13 03/24/24 History albuterol sulfate 90 mcg/actuation 2 puff inhalation Q6H PRN Sob /Or 12/26/15 09/09/19 History aerosol inhaler Wheezing meclizine 25 mg tablet 25 mg PO Q6H PRN Dizziness 03/28/16 05/26/23 History fluticasone propionate 50 2 spray NASAL DAILY PRN Allergies 07/02/18 09/15/21 History mcg/actuation nasal spray,suspension albuterol sulfate 2.5 mg/3 mL 2.5 mg inhalation Q4H PRN Sob /Or 12/04/18 12/01/18 History (0.083 %) solution for nebulization Wheezing verapamil 240 mg tablet,extended 240 mg PO DAILY BP #90 tabs 12/30/19 03/24/24 Rx release atorvastatin 40 mg tablet 40 mg PO DAILY cholesterol 11/18/21 03/24/24 History metoprolol tartrate 25 mg tablet 25 mg PO BID 30 days #60 tabs 12/26/23 01/27/25 Rx apixaban 5 mg tablet (Eliquis) 5 mg PO (more content not included)... Normal [facility] Hemoglobin A1con 03-24-2024 HbA1c (Bld) [Mass fraction] 5.3 % Normal 3.8-5.6 [facility] Comment on above: Result Comment: Norm al < 5.7 % Prediabetic 5.7 - 6.4 % Diabetic >or= 6.5 % Please note range changes. Performed By: #### L 100.0100, L501.5425, L500.4050, L501.2450 #### [facility] [address] [place], [address] Iron+Iron Binding Capacityon 03-24-2024 Iron [Mass/Vol] 15 ug/dL Low 50-170 [facility] Comment on above: Performed By: #### L 100.0100, L501.5425, L500.4050, L501.2450 #### [facility] [address] [place], [address] IRON SATURATION 5.1 Low 15.0-55.0 [facility] Comment on above: Performed By: #### L 100.0100, L501.5425, L500.4050, L501.2450 #### [facility] [address] [place], [address] TIBC 296 ug/dL Normal 250-450 [facility] Comment on above: Performed By: #### L 100.0100, L501.5425, L500.4050, L501.2450 #### [facility] [address] [place], [address] Knee 3 Viewson 03-24-2024 Knee 3 Views [facility] Imaging Services [address] [place] [address] Knee 3 Views MR#: [id number] Acct: [id number] Name: ROMAIN BAILEY Rep #: [id number] : 1950 F 74 From: Josh Davidson MD PCP: Dr. Fatemeh Rogers MD Status: REG ER Study: Knee 3 Views Date of Exam: 03/24/24 Exam# [id number] Ordering Dr: Candelario Coreas DO [id number] EXAM: XR RIGHT KNEE, 3 VIEWS CLINICAL INDICATION: right knee pain TECHNIQUE: Three views of the right knee. COMPARISON: No relevant prior studies available. FINDINGS: BONES/JOINTS: [id number] suprapatellar joint effusion. Severe osteoarthrosis with [id number]-[id number] articulation at the medial femorotibial compartment. Widening of the lateral compartment. Moderate osteoarthrosis of the patellofemoral compartment. Osteophytes at the intercondylar notch. No sclerotic or destructive changes observed. No acute or healing fracture or malalignment. SOFT TISSUES: Unremarkable. No soft tissue swelling or gas. No radiopaque foreign body. RAD/Knee 3 Views IMPRESSION: 1. Small to moderate joint effusion. 2. No acute or healing fracture or malalignment. 3. Tricompartmental osteoarthrosis which is worse/severe at the medial femorotibial compartment. Electronically Signed: Josh Davidson MD at 19:57 EST Reading Location ID and State: [facility] Tel , Service support , CC: Dr. Fatemeh Rogers MD; Dr. Candelario Coreas DO Apparel Patternmaker: Signed Normal [facility] L501.4020on 03-24-2024 TROPONIN-I HS 6 pg/mL Normal 3.0-54.0 [facility] Comment on above: Order Comment: 'TROP ' Serial specimen #1, #2 or #3: 1 Result Comment: Jelly joshua Note: New Test Units and Gender Specific Reference Ranges. For more information see Policy Stat Procedure Grandin High Sensitivity Troponin (TNIH) and attachments. Performed By: #### L 501.2468 #### [facility] [place], [address] TROPONIN-I HS 7 pg/mL Normal 3.0-54.0 [facility] Comment on above: Order Comment: 'TROP ' Serial specimen #1, #2 or #3: 1 Result Comment: Jelly joshua Note: New Test Units and Gender Specific Reference Ranges. For more information see Policy Stat Procedure Grandin High Sensitivity Troponin (TNIH) and attachments. Performed By: #### L 100.0100, L501.5425, L500.4050, L501.2450 #### [facility] [address] [facility] [place], [address] M100.678on 03-24-2024 M100.678 Pending SARS-CoV-2 (COVID 19) Negative INFLUENZA A Negative INFLUENZA B Negative RSV PCR Negative Normal [facility] Comment on above: Performed By: #### L 100.0100, L501.5425, L500.4050, L501.2450 #### [facility] [address] [place], [address] Thyroid Stim Hormone (TSH)on 03-24-2024 TSH 1.980 uIU/mL Normal 0.358-3.740 [facility] Comment on above: Performed By: #### L 100.0100, L501.5425, L500.4050, L501.2450 #### [facility] [address] [place], [address] CBC panel Auto (Bld)on 03-12 Erythrocyte distribution width (RBC) [Ratio] 22.9 % High 11.5-15.0 [facility] Comment on above: Order Comment: Speci men Type: BLOOD SPECIMENOrdering Facility: [facility] Address: [address] [place] [address] Performed By: #### 5 8410-2 ####[facility] LABCLIA [id number] [facility] [place] [address] [place] Hematocrit (Bld) [Volume fraction] 41.1 % Normal 36.0-46.0 [facility] Comment on above: Order Comment: Speci men Type: BLOOD SPECIMENOrdering Facility: [facility] Address: [address] [place] [address] Performed By: #### 5 8410-2 ####[facility] LABIA [id number] [place] [address] [place] Hemoglobin (Bld) [Mass/Vol] 11.2 g/dL Low 11.5-15. 5 [facility] Comment on above: Order Comment: Speci men Type: BLOOD SPECIMENOrdering Facility: [facility] Address: [address] [place] [address] Performed By: #### 5 8410-2 ####[facility] [id number] [place] [address] [place] MCH (RBC) [Entitic mass] 21.3 pg Low 26.0-34.0 [facility] Comment on above: Order Comment: Speci men Type: BLOOD SPECIMENOrdering Facility: [facility] Address: [address] [place] [address] Performed By: #### 5 8410-2 ####[facility] [id number] [place] [address] [place] MCHC (RBC) [Mass/Vol] 27.3 g/dL Low 30.5-36.0 [facility] Comment on above: Order Comment: Speci men Type: BLOOD SPECIMENOrdering Facility: [facility] Address: [address] [place] [address] Performed By: #### 5 8410-2 ####[facility] [id number] [place] [address] [place] MCV (RBC) [Entitic vol] 78.0 fL Low 80.0-100.0 [facility] Comment on above: Order Comment: Speci men Type: BLOOD SPECIMENOrdering Facility: [facility] Address: [address] [place] [address] Performed By: #### 5 8410-2 ####[facility] LABCLIA [id number] [place] [address] [place] Nucleated RBC (Bld) [#/Vol] 10*3/uL Normal <0.01 [facility] Comment on above: Order Comment: Speci men Type: BLOOD SPECIMENOrdering Facility: [facility] Address: [address] [place] [address] Performed By: #### 5 8410-2 ####[facility] LABIA [id number] [place] [address] [place] Platelet mean volume (Bld) [Entitic vol] 10.8 fL Normal 9.0-12.7 [facility] Comment on above: Order Comment: Speci men Type: BLOOD SPECIMENOrdering Facility: [facility] Address: [address] [place] [address] Performed By: #### 5 8410-2 ####[facility] LABIA [id number] [place] [address] [place] Platelets (Bld) [#/Vol] 420 10*3/uL High 150-400 [facility] Comment on above: Order Comment: Speci men Type: BLOOD SPECIMENOrdering Facility: [facility] Address: [address] [place] [address] Performed By: #### 5 8410-2 ####[facility] LABCLIA [id number] [place] [address] [place] RBC (Bld) [#/Vol] 5.27 10*6/uL High 3.90-5.20 [facility] Comment on above: Order Comment: Speci men Type: BLOOD SPECIMENOrdering Facility: [facility] Address: [address] [place] [address] Performed By: #### 5 8410-2 ####[facility] LABCLIA [id number] [place] [address] [place] WBC (Bld) [#/Vol] 8.14 10*3/uL Normal 3.70-11.00 [facility] Comment on above: Order Comment: Speci men Type: BLOOD SPECIMENOrdering Facility: [facility] Address: [address] [place] [address] Performed By: #### 5 8410-2 ####[facility] LABIA [id number] [place] [address] [place] Ferritin SerPl[facility] 20[facility] Ferritin [Mass/Vol] 14.4 ng/mL Low 14.7-205.1 [facility] Comment on above: Order Comment: Speci men Type: BLOOD SPECIMENOrdering Facility: [facility] Address: [address] [place] [address] Performed By: #### 2 284-8, 62199-5, 2-9, 6-4 ####[facility] LABIA [id number] [place] [address] [place] Folate SerPl-mCncon 03-12-19 25 Folate [Mass/Vol] 12.6 ng/mL Normal >4.7 [facility] Comment on above: Order Comment: Speci men Type: BLOOD SPECIMENOrdering Facility: [facility] Address: [address] [place] [address] Performed By: #### 2 284-8, 40632-5, 2-9, 6-4 ####[facility] LABIA [id number] [place] [id number] [place] Hemoccult Stl Ql IAon 2024 Lower GI hemoglobin IA Ql (Stl) Negative Normal Negative [facility] Comment on above: Order Comment: Speci men Type: STOOL SPECIMENOrdering Facility: [facility] Address: [address] [place] [address] Performed By: #### 2 9771-3 ####[facility] LABCLIA [id number] [place] [id number] [place] Iron and Iron binding capaci ty panelon 03-12-2024 Iron [Mass/Vol] 22 ug/dL Low 41-186 [facility] Comment on above: Order Comment: Speci men Type: BLOOD SPECIMENOrdering Facility: [facility] Address: [address] [place] [address] Performed By: #### 2 284-8, 30112-5, 9, 2275-4 ####[facility] LABIA [id number] [place] [address] [place] Iron binding capacity [Mass/Vol] 319 ug/dL Normal 232-386 [facility] Comment on above: Order Comment: Speci men Type: BLOOD SPECIMENOrdering Facility: [facility] Address: [address] [place] [address] Performed By: #### 2 284-8, 72678-6, 9, 2275-4 ####[facility] [id number] [place] [address] [place] Iron/TIBC [Molar ratio] 6.9 % Low 15.0-57.0 [facility] Comment on above: Order Comment: Speci men Type: BLOOD SPECIMENOrdering Facility: [facility] Address: [address] [place] [address] Performed By: #### 2 284-8, 55454-0, 9, 4 ####[facility] LABIA [id number] [place] [address] [place] Vit B12 SerPl-ncon 025 Cobalamin (Vitamin B12) [Mass/Vol] 537 pg/mL Normal 232-1245 [facility] Comment on above: Order Comment: Speci men Type: BLOOD SPECIMENOrdering Facility: [facility] Address: [address] [place] [address] Performed By: #### 2 284-8, 63361-9, 2132-9, 2276-4 ####[facility] [place] [id number] [address] [address] [facility] Little 02-29-2024 CNPN Telephone (INTMWS) GRUPOROMAIN Platt ([id number]) 1950 F T Date Time Provider Department 02/29/24 FATEMEH ROGERS INTMWS During your visit today, we recorded the following information about you: Fannie Mario RN 02/29/2024 2:42 PM Signed Patient began taking ferrous sulfate 325 mg once daily, as ordered by Erin Corona CNP on 02/14/24. Patient reports for the last 2 days her bowel movements have been really soft and green. Reports slight improvement in her fatigue. Still sleeping a lot. Is drinking increased fluids. Denies black stools, constipation, diarrhea, GI discomfort, or nausea. This nurse explained to patient that green bowel movements can be a side effect of this medication and to call office if begins to experience any other symptoms. Patient asking if provider wishes to reorder the ferrous sulfate for her? She reports she has a couple weeks of it left and then will be out of it. Please call patient with response. CHAPARRITA Vasquez Naz M, APRN.PAPER CARRIER 03/03/2024 7:42 AM Signed She never had labs or stool test completed as advised on 02/13. She may not need any further treatment with iron depending on results Erin Corona APRN.Dereck Martin RN 03/03/2024 8:11 AM Signed Called and left a voicemail for the Patient to call back and ask for a nurse to receive the providers message. CHAPARRITA Simpson Julia, LPN 03/10/2024 10:48 AM Signed LEFT MESSAGE FOR PATIENT TO CALL OFFICE. Narinder Jacques, RN 03/11/2024 10:22 AM Signed Daughter, Anne-Marie, reports patient's phone is not working right now, but should be later in this week. Given provider's message below with verbalized understanding. Anne-Marie states she will bring pt to lab tomorrow to complete lab draw, and machine operator hop picker stool kit. Cassi Saucedo MA 03/14/2024 2:23 PM Signed ----- Message from Erin Corona APRN.PAPER CARRIER sent at 03/14/2024 1:29 PM EST ----- Please let the patient know anemia has improved however iron levels still low. Continue ferrous sulfate daily x one month and recheck labs. Stool test was negative for hidden blood Erin Corona APRN.Cassi Real MA 03/14/2024 2:27 PM Signed Spoke to daughter please send rx for iron and file lab for blood work in one month Cassi Saucedo MA Allergies As of Date: 02/29/2024 Noted Allergy Reaction BACTRIM DS (SULFAMETHOXAZOLE-TRI M*12/29/2014 10 - Anaphylaxis Comments: Difficulty breathing, fever, chills BEE STING 08/28/2012 10 - Anaphylaxis ADHESIVE TAPE (ROSINS) 12/05/2016 2 - Rash DARVON (PROPOXYPHENE HCL) 05/15/2007 INFLUENZA VIRUS VACCINES 01/07/2019 14 - Other: See Comments Comments: Chest tightness, arm swelling. PEPPER (GENUS CAPSICUM) 11/04/2022 4 - Hives Date Reviewed: 02/13/2024 Reviewed by: Erin Corona APRN.PAPER CARRIER - Fully Assessed Reason for Visit: Patient Update [1234] Visit Diagnosis:Anemia, unspecified type [D64.9] Order(s):ferrous sulfate 325 mg (65 mg iron) tabletTake 1 tablet by mouth once daily.Disp: 30 tabletRfl: 0 COMPLETE BLOOD COUNT [SQCBC] Order #: [id number] FUTURE IRON AND TIBC [SQIRON] Order #: [id number] FUTURE FERRITIN [SQFERR] Order #: [id number] FUTURE Prescriptions as of 03/17/2024 - ferrous sulfate 325 mg (65 mg iron) tablet Take 1 tablet by mouth once daily. - ondansetron orally disintegrating (ZOFRAN ODT) 4 mg disintegrating tablet Take 1 tablet by mouth every 8 hours as needed for nausea/vomiting. - apixaban (ELIQUIS) 5 mg tab(s) Take 1 tablet by mouth two times a day. Will start when delivered - EPINEPHrine (EPIPEN) 0.3 mg/0.3 mL auto-injector Inject 0.3 ml intramuscular as needed. - pantoprazole DR (PROTONIX) 20 mg tablet Take 1 tablet by mouth once daily. - atorvastatin (LIPITOR) 40 mg tablet Take 1 tablet by mouth once daily. - verapamil SR (CALAN SR) 240 mg CR tablet Take 1 tablet by mouth daily at bedtime. - albuterol HFA (PROVENTIL HFA, VENTOLIN HFA) 90 mcg/actuation inhaler Inhale 2 Puffs as instructed every 6 hours as needed. - metoprolol tartrate, short acting, (LOPRESSOR) 25 mg tablet Take 1 tablet by mouth two times a day. - fluticasone-salmetero l (ADVAIR DISKUS) 100-50 mcg/dose inhaler Inhale 1 Puff as instructed two times a day. RINSE AND GARGLE MOUTH WITH WATER AFTER EACH USE. - fluticasone (FLONASE) 50 mcg/actuation nasal spray Use 2 Sprays in each nostril once daily. - fluticasone-salmetero l (ADVAIR DISKUS) 250-50 mcg/dose inhaler Inhale 1 [...] (PROVENTIL) 2.5 mg /3 mL (0.083 %) ne (more content not included)... [facility] [facility] Telephone (INTMWS) ROMAIN BAILEY ([id number]) 1950 F T Date Time Provider Department 02/22/24 FATEMEH ROGERS INTWS During your visit today, we recorded the following information about you: Sadaf Monae RN 02/22/2024 12:16 PM Signed Patient calls and states that she has been sick for a few weeks. Patient reports that now she has cold symptoms. Patient states that she has been sneezing, coughing, and her nose has been plugged. Patient has been blowing out green with blood tinge mucous. Patient states that she has been short of breath off and on but that is because her nose is plugged. When patient blows out nose then she can breath. Patient is worried that she has RSV because she had RSV last time. Patient is asking what she should do and if she should call the squad to come and get her since her daughter is at work. Advised patient that if she has increased shortness of breath or if her symptoms become worse then she should call the squad so that they can take her to ER to be evaluated. Patient voiced understanding. Advised patient that if she has mild symptoms then she could always go to [facility] to be evaluated. They could test her for RSV. Patient voiced understanding. CHAPARRITA Hill Liza D, MD 02/23/2024 3:24 AM Signed Noted Follow up as needed Allergies As of Date: 02/22/2024 Noted Allergy Reaction BACTRIM DS (SULFAMETHOXAZOLE-TRI M*12/29/2014 10 - Anaphylaxis Comments: Difficulty breathing, fever, chills BEE STING 08/28/2012 10 - Anaphylaxis ADHESIVE TAPE (ROSINS) 12/05/2016 2 - Rash DARVON (PROPOXYPHENE HCL) 05/15/2007 INFLUENZA VIRUS VACCINES 01/07/2019 14 - Other: See Comments Comments: Chest tightness, arm swelling. PEPPER (GENUS CAPSICUM) 11/04/2022 4 - Hives Date Reviewed: 02/13/2024 Reviewed by: Erin Corona APRN.PAPER CARRIER - Fully Assessed Reason for Visit: Patient Update [1234] Prescriptions as of 02/23/2024 - ferrous sulfate 325 mg (65 mg iron) tablet Take 1 tablet by mouth once daily. - ondansetron orally disintegrating (ZOFRAN ODT) 4 mg disintegrating tablet Take 1 tablet by mouth every 8 hours as needed for nausea/vomiting. - apixaban (ELIQUIS) 5 mg tab(s) Take 1 tablet by mouth two times a day. Will start when delivered - EPINEPHrine (EPIPEN) 0.3 mg/0.3 mL auto-injector Inject 0.3 ml intramuscular as needed. - pantoprazole DR (PROTONIX) 20 mg tablet Take 1 tablet by mouth once daily. - atorvastatin (LIPITOR) 40 mg tablet Take 1 tablet by mouth once daily. - verapamil SR (CALAN SR) 240 mg CR tablet Take 1 tablet by mouth daily at bedtime. - albuterol HFA (PROVENTIL HFA, VENTOLIN HFA) 90 mcg/actuation inhaler Inhale 2 Puffs as instructed every 6 hours as needed. - metoprolol tartrate, short acting, (LOPRESSOR) 25 mg tablet Take 1 tablet by mouth two times a day. - fluticasone-salmetero l (ADVAIR DISKUS) 100-50 mcg/dose inhaler Inhale 1 Puff as instructed two times a day. RINSE AND GARGLE MOUTH WITH WATER AFTER EACH USE. - fluticasone (FLONASE) 50 mcg/actuation nasal spray Use 2 Sprays in each nostril once daily. - fluticasone-salmetero l (ADVAIR DISKUS) 250-50 mcg/dose inhaler Inhale 1 [...] wheezing/shortness of breath. Use over 5-15minutes. - meclizine (ANTIVERT) 25 mg tab Take [...] Ortiz RN Problem List As Of Date 02/22/2024 Noted Resolved Sebaceous cyst [L72.3] 05/15/2007 04/16/2012 Environmental allergies [Z91.09] Asthma [J45.909] Arthropathy, unspecified, site unspecified [M12* Essential hypertension [I10] IBS (irritable bowel syndrome) [K58.9] GERD (gastroesophageal reflux disease) [K21.9] Migraine [G43.909] Diverticulitis [K57.92] 12/10/2020 Hyperlipidemia, mixed [E78.2] Fracture of finger, middle or proximal phalanx,*08/28/2012 12/10/2020 History of colon polyps [Z86.0100] Chronic pain of right knee [M25.561, G89.29] 12/13/2015 Primary osteoarthritis of right knee [M17.11] 12/13/2015 BPPV (benign (more content not included)... Normal [facility] CBC panel Auto (Bld)on 02-13 Erythrocyte distribution width (RBC) [Ratio] 17.3 % High 11.5-15.0 [facility] Comment on above: Order Comment: Speci men Type: BLOOD SPECIMENOrdering Facility: [facility] Address: [address] [place] [address] Performed By: #### 5 8410-2 ####[facility] ALEX [facility] SERVICES[facility] [id number] [place] [address] [place] Hematocrit (Bld) [Volume fraction] 34.8 % Low 36.0-46.0 [facility] Comment on above: Order Comment: Speci men Type: BLOOD SPECIMENOrdering Facility: [facility] Address: [address] [place] [address] Performed By: #### 5 8410-2 ####[facility] HOS[facility]ITALROBY [id number] [place] [address] [place] Hemoglobin (Bld) [Mass/Vol] 9.8 g/dL Low 11.5-15. 5 [facility] Comment on above: Order Comment: Speci men Type: BLOOD SPECIMENOrdering Facility: [facility] Address: [address] [place] [address] Performed By: #### 5 8410-2 ####[facility]ITALNCH[facility] [id number] [place] [address] [place] MCH (RBC) [Entitic mass] 19.5 pg Low 26.0-34.0 [facility] Comment on above: Order Comment: Speci men Type: BLOOD SPECIMENOrdering Facility: [facility] Address: [address] [place] [address] Performed By: #### 5 8410-2 ####[facility] H[facility]ITALNCLIA [id number] [place] [address] [place] MCHC (RBC) [Mass/Vol] 28.2 g/dL Low 30.5-36.0 [facility] Comment on above: Order Comment: Speci men Type: BLOOD SPECIMENOrdering Facility: [facility] Address: [address] [place] [address] Performed By: #### 5 8410-2 ####[facility] HOSPITALNCLI [id number] [place] [address] [place] MCV (RBC) [Entitic vol] 69.2 fL Low 80.0-100.0 [facility] Comment on above: Order Comment: Speci men Type: BLOOD SPECIMENOrdering Facility: [facility] Address: [address] [place] [address] Performed By: #### 5 8410-2 ####[facility] ALEX JENNIFERNCHIRAL [id number] [place] [address] [place] Nucleated RBC (Bld) [#/Vol] 10*3/uL Normal <0.01 [facility] Comment on above: Order Comment: Speci men Type: BLOOD SPECIMENOrdering Facility: [facility] Address: [address] [place] [address] Performed By: #### 5 8410-2 ####[facility] HOSPITALNCRAFAELA [id number] [place] [address] [place] Platelet mean volume (Bld) [Entitic vol] 8.9 fL Low 9.0-12.7 [facility] Comment on above: Order Comment: Speci men Type: BLOOD SPECIMENOrdering Facility: [facility] Address: [address] [place] [address] Performed By: #### 5 8410-2 ####[facility] H[facility]ITALNCLIA [id number] [place] [address] [place] Platelets (Bld) [#/Vol] 345 10*3/uL Normal 150-400 [facility] Comment on above: Order Comment: Speci men Type: BLOOD SPECIMENOrdering Facility: [facility] Address: [address] [place] [address] Performed By: #### 5 8410-2 ####[facility] H[facility]ITALNCLIA [id number] [place] [address] [place] RBC (Bld) [#/Vol] 5.03 10*6/uL Normal 3.90-5.20 [facility] Comment on above: Order Comment: Speci men Type: BLOOD SPECIMENOrdering Facility: [facility] Address: [address] [place] [address] Performed By: #### 5 8410-2 ####[facility] HOSPITALNCRAFAELA [id number] [place] [address] [place] WBC (Bld) [#/Vol] 7.05 10*3/uL Normal 3.70-11.00 [facility] Comment on above: Order Comment: Speci men Type: BLOOD SPECIMENOrdering Facility: [facility] Address: [address] [place] [address] Performed By: #### 5 8410-2 ####[facility]ITALNCLIA [id number] [place] [address] [place] [facility] CRP [Mass/Vol] mg/L Normal <0.9 [facility] Comment on above: Order Comment: Speci men Type: BLOOD SPECIMENOrdering Facility: [facility] Address: [address] [place] [address] Performed By: #### 1 988-5 ####[facility] LABCLIA [id number] [place] [id number] [place] CT BRAIN WO IVCONon 02-14-[address] BRAIN WO IVCON * * *Final Report* * * DATE OF EXAM: Feb 14 2024 12:36PM [facility] 0504 - CT BRAIN WO IVCON / PROCEDURE REASON: multiple diagnoses * * * * Physician Interpretation * * * * EXAMINATION: CT BRAIN WO IVCON CLINICAL HISTORY: New persistent daily headache Dizziness Balance problem TECHNIQUE: Serial axial images without IV contrast were obtained from the vertex to the foramen magnum. MQ: CTBWO_3 CT Radiation dose: Integrated Dose-Length Product (DLP) for this visit = 654 mGy*cm CT Dose Reduction Employed: Automated exposure control(AEC) and iterative recon COMPARISON: Brain MRI 07/29/2018. Head CT 07/28/2018. RESULT: Localizer images: No significant findings. Post-operative change: None. Acute change: No evidence of an acute infarct or other acute parenchymal process. Hemorrhage: No evidence of acute intracranial hemorrhage. ECASS hemorrhagic transformation score: Not Applicable Mass Lesion / Mass Effect: There is no evidence of an intracranial mass or extraaxial fluid collection. No significant mass effect. Chronic change: Scattered patchy foci of low attenuation are present within supratentorial white matter which is a nonspecific finding but likely represents mild microvascular ischemia. Parenchyma: There is no significant volume loss. The brain parenchyma is otherwise within normal limits for age. Ventricles: The ventricles are within normal limits of size and configuration for age. Paranasal sinuses and skull base: There is unchanged right lateral mastoid wall dehiscence. The visualized paranasal sinuses are grossly clear. The skull base and imaged soft tissues are unremarkable. IMPRESSION: No acute findings. No acute infarction, intracranial hemorrhage or intracranial mass lesion. Apparel Patternmaker: ROSITA Transcribe Date/Time: Feb 14 2024 12:41P Dictated by : JIM HAGER MD This examination was interpreted and the report reviewed and electronically signed by: JIM HAGER MD on Feb 14 2024 12:47PM EST [id number] Normal [facility] CT Head WO contraston 2023 IMPRESSION: No acute findings. No acute infarction, intracranial hemorrhage or intracranial mass lesion. Apparel Patternmaker: [facility] Transcribe Date/Time: Feb 14 2024 12:41P Dictated by : JIM HAGER MD This examination was interpreted and the report reviewed and electronically signed by: JIM HAGER MD on Feb 14 2024 12:47PM [facility] DIVISION OF RADIOLOGY * * *Final Report* * * DATE OF EXAM: Feb 14 2024 12:36PM [facility] 0504 - CT BRAIN WO IVCON / PROCEDURE REASON: multiple diagnoses * * * * Physician Interpretation * * * * EXAMINATION: CT BRAIN WO IVCON CLINICAL HISTORY: New persistent daily headache Dizziness Balance problem TECHNIQUE: Serial axial images without IV contrast were obtained from the vertex to the foramen magnum. MQ: CTBWO_3 CT Radiation dose: Integrated Dose-Length Product (DLP) for this visit = 654 mGy*cm CT Dose Reduction Employed: Automated exposure control(AEC) and iterative recon COMPARISON: Brain MRI 07/29/2018. Head CT 07/28/2018. RESULT: Localizer images: No significant findings. Post-operative change: None. Acute change: No evidence of an acute infarct or other acute parenchymal process. Hemorrhage: No evidence of acute intracranial hemorrhage. ECASS hemorrhagic transformation score: Not Applicable Mass Lesion / Mass Effect: There is no evidence of an intracranial mass or extraaxial fluid collection. No significant mass effect. Chronic change: Scattered patchy foci of low attenuation are present within supratentorial white matter which is a nonspecific finding but likely represents mild microvascular ischemia. Parenchyma: There is no significant volume loss. The brain parenchyma is otherwise within normal limits for age. Ventricles: The ventricles are within normal limits of size and configuration for age. Paranasal sinuses and skull base: There is unchanged right lateral mastoid wall dehiscence. The visualized paranasal sinuses are grossly clear. The skull base and imaged soft tissues are unremarkable. DIVISION OF RADIOLOGY Provider, [facility] - 02/14/2024 * * *Final Report* * * DATE OF EXAM: Feb 14 2024 12:36PM [facility] 0504 - CT BRAIN WO IVCON / PROCEDURE REASON: multiple diagnoses * * * * Physician Interpretation * * * * EXAMINATION: CT BRAIN WO IVCON CLINICAL HISTORY: New persistent daily headache Dizziness Balance problem TECHNIQUE: Serial axial images without IV contrast were obtained from the vertex to the foramen magnum. MQ: CTBWO_3 CT Radiation dose: Integrated Dose-Length Product (DLP) for this visit = 654 mGy*cm CT Dose Reduction Employed: Automated exposure control(AEC) and iterative recon COMPARISON: Brain MRI 07/29/2018. Head CT 07/28/2018. RESULT: Localizer images: No significant findings. Post-operative change: None. Acute change: No evidence of an acute infarct or other acute parenchymal process. Hemorrhage: No evidence of acute intracranial hemorrhage. ECASS hemorrhagic transformation score: Not Applicable Mass Lesion / Mass Effect: There is no evidence of an intracranial mass or extraaxial fluid collection. No significant mass effect. Chronic change: Scattered patchy foci of low attenuation are present within supratentorial white matter which is a nonspecific finding but likely represents mild microvascular ischemia. Parenchyma: There is no significant volume loss. The brain parenchyma is otherwise within normal limits for age. Ventricles: The ventricles are within normal limits of size and configuration for age. Paranasal sinuses and skull base: There is unchanged right lateral mastoid wall dehiscence. The visualized paranasal sinuses are grossly clear. The skull base and imaged soft tissues are unremarkable. IMPRESSION IMPRESSION: No acute findings. No acute infarction, intracranial hemorrhage or intracranial mass lesion. Apparel Patternmaker: PSCB Transcribe Date/Time: Feb 14 2024 12:41P Dictated by : JIM HAGER MD This examination was interpreted and the report reviewed and electronically signed by: JIM HAGER MD on Feb 14 2024 12:47PM EST [facility] Radiology Study observation (narrative) [facility] CT Head WO contrastOrdered B y: Ccf Provider on 02-14-2024 [facility] Comprehensive metabolic 2000 panelon 02-14-2024 Albumin [Mass/Vol] 4.2 g/dL Normal 3.9-4.9 [facility] Comment on above: Order Comment: Speci men Type: BLOOD SPECIMENOrdering Facility: [facility] Address: [address] [place] [address] Performed By: #### 2 4323-8 ####[facility]ITALA [id number] [place] [address] [place] ALP [Catalytic activity/Vol] 140 U/L High 34-123 [facility] Comment on above: Order Comment: Speci men Type: BLOOD SPECIMENOrdering Facility: [facility] Address: [address] [place] [address] Performed By: #### 2 4323-8 ####[facility] HOSPITALLIA [id number] [place] [address] [place] ALT [Catalytic activity/Vol] 9 U/L Normal 7-38 [facility] Comment on above: Order Comment: Speci men Type: BLOOD SPECIMENOrdering Facility: [facility] Address: [address] [place] [address] Performed By: #### 2 4323-8 ####[facility]NCLIA [id number] [place] [address] [place] Anion gap [Moles/Vol] 9 mmol/L Normal 8-15 [facility] Comment on above: Order Comment: Speci men Type: BLOOD SPECIMENOrdering Facility: [facility] Address: [address] [place] [address] Performed By: #### 2 4323-8 ####[facility]ITALNCLIA [id number] [place] [address] [place] AST [Catalytic activity/Vol] 12 U/L Low 13-35 [facility] Comment on above: Order Comment: Speci men Type: BLOOD SPECIMENOrdering Facility: [facility] Address: [address] [place] [address] Performed By: #### 2 4323-8 ####[facility] [id number] [place] [address] [place] Bilirubin [Mass/Vol] 0.4 mg/dL Normal 0.2-1.3 [facility] Comment on above: Order Comment: Speci men Type: BLOOD SPECIMENOrdering Facility: [facility] Address: [address] [place] [address] Performed By: #### 2 4323-8 ####[facility]ITALNCLIA [id number] [place] [address] [place] Calcium [Mass/Vol] 9.1 mg/dL Normal 8.5-10.2 [facility] Comment on above: Order Comment: Speci men Type: BLOOD SPECIMENOrdering Facility: [facility] Address: [address] [place] [address] Performed By: #### 2 4323-8 ####[facility]ITALNCLIA [id number] [place] [address] [place] Chloride [Moles/Vol] 107 mmol/L Normal 98-107 [facility] Comment on above: Order Comment: Speci men Type: BLOOD SPECIMENOrdering Facility: [facility] Address: [address] [place] [address] Performed By: #### 2 4323-8 ####[facility]ITALNCLIA [id number] [place] [address] [place] CO2 [Moles/Vol] 25 mmol/L Normal 22-30 [facility] Comment on above: Order Comment: Speci men Type: BLOOD SPECIMENOrdering Facility: [facility] Address: [address] [place] [address] Performed By: #### 2 4323-8 ####[facility]ITALNCLIA [id number] [place] [address] [place] Creatinine [Mass/Vol] 0.71 mg/dL Normal 0.58-0.96 [facility] Comment on above: Order Comment: Speci men Type: BLOOD SPECIMENOrdering Facility: [facility] Address: [address] [place] [address] Performed By: #### 2 4323-8 ####[facility] [id number] [place] [address] [place] Creatinine and Glomerular filtration rate.predicted panel (S/P/Bld) 90 mL/min/1.73m??? Normal >=60 [facility] Comment on above: Order Comment: Speci men Type: BLOOD SPECIMENOrdering Facility: [facility] Address: [address] [place] [address] Result Comment: Hermila mated Glomerular Filtration Rate [...] reflect actual GFR. Performed By: #### 2 4323-8 ####[facility] GORDAWNCLIA [id number] [place] [address] [place] Glucose [Mass/Vol] 114 mg/dL High 74-99 [facility] Comment on above: Order Comment: Speci men Type: BLOOD SPECIMENOrdering Facility: [facility] Address: [address] [place] [address] Result Comment: The [place] Diabetes Association (ADA) provides guidance for cutoff [...] Standards of Medical Care in Diabetes 2016, [place] [employer] Association. Diabetes Care. 2016.39(Suppl 1). Performed By: #### 2 4323-8 ####[facility] GORDAWKRYSTENAnabel [id number] [place] [address] [place] Potassium [Moles/Vol] 4.2 mmol/L Normal 3.7-5.1 [facility] Comment on above: Order Comment: Samanthai men Type: BLOOD SPECIMENOrdering Facility: [facility] Address: [address] [place] [address] Performed By: #### 2 4323-8 ####[facility] GORDALUCY [id number] [place] [address] [place] Protein [Mass/Vol] 6.5 g/dL Normal 6.3-8.0 [facility] Comment on above: Order Comment: Speci men Type: BLOOD SPECIMENOrdering Facility: [facility] Address: [address] [place] [address] Performed By: #### 2 4323-8 ####[facility] HOSPITALKRYSTENLIA [id number] [place] [address] [place] Sodium [Moles/Vol] 141 mmol/L Normal 136-144 [facility] Comment on above: Order Comment: Speci men Type: BLOOD SPECIMENOrdering Facility: [facility] Address: [address] [place] [address] [place] [address] Performed By: #### 2 4323-8 ####[facility]ITALN[facility] [id number] [place] [address] [place] Urea nitrogen [Mass/Vol] 16 mg/dL Normal 7-21 [facility] Comment on above: Order Comment: Speci men Type: BLOOD SPECIMENOrdering Facility: [facility] Address: [address] [place] [address] Performed By: #### 2 4323-8 ####[facility] [id number] [place] [address] [place] ESR Westergren method (Bld) [Velocity]on 02-14-2024 ESR (Bld) [Velocity] 8 mm/h Normal 0-20 [facility] Comment on above: Order Comment: Speci men Type: BLOOD SPECIMENOrdering Facility: [facility] Address: [address] [place] [address] Performed By: #### 4 537-7 ####[facility] LABCLIA [id number] [address] [place] CNOVon 02-13-2024 CNOV Office Visit (INTMWS ) ROMAIN BAILEY ([id number]) 1950 F CHT Date Time Provider Department 02/13/24 6:40 PM ERIN CORONA INTMWS During your visit today, we recorded the following information about you: Temperature Pulse Respiration Blood pressure 97.6 degrees 65/minute 16/minute 122/70 Erin Corona, COMPUTER NETWORK ENGINEER.PAPER CARRIER 02/13/2024 6:56 PM Signed CC Patient presents with: Headache: X 1 month, stiff neck Dizziness: Intermittent x 1 week with position changes HPI Romain Bailey is a 73 year old year old female who presents with complaint of headache. Symptoms started about one month ago when she went to the ER for GI symptoms. She has not been feeling right since then. Pain is located: like a band around her head Pain is described as: throbbing but sometimes sharp. It is constant but varies in intensity. Can be severe at times, at its worst she rates it a 9 out of 10 Triggers: The patient is not aware of any specific triggers. Associated with dizziness for the past week. Described as feeling off balance with position changes. She has to hold onto things to stay upright. Also reports for the past two weeks her neck has been hurting and feels stiff. Denies nausea, vomiting, light/sound sensitivity Aggravated by: nothing she can think of Neurologic symptoms: Denies thunderclap headache, visual disturbance, numbness, weakness, slurred speech, clumsiness, change in level of consciousness, change in orientation, and change in behavior History of migraines/headaches: migraines in her 20's but none for years Injury/Trauma: No Caffeine Intake: No Alcohol Intake: No Medication changes: no Treatments: resting in quiet dark room, minor analgesics- Tylenol, and cool compresses. These do provide temporary relief. Review of Systems Constitutional: Positive for fatigue. Negative for activity change, appetite change, chills, diaphoresis, fever and unexpected weight change. HENT: Negative for congestion, ear pain, rhinorrhea, sinus pain, sneezing, sore throat, tinnitus and trouble swallowing. Eyes: Negative for pain. Respiratory: Negative for cough, shortness of breath and wheezing. Cardiovascular: Negative for chest pain, palpitations and leg swelling. Gastrointestinal: Negative for abdominal pain, blood in stool, constipation, diarrhea, nausea and vomiting. Genitourinary: Negative for decreased urine volume, difficulty urinating, dysuria, frequency, hematuria and urgency. Musculoskeletal: Negative for arthralgias, back pain, joint swelling and myalgias. PAST MEDICAL HISTORY Diagnosis Date Arthropathy, unspecified, [...] right tibial area PAST SURGICAL HISTORY OF [facility] PAST SURGICAL HISTORY OF Right 11/2022 Tear duct bocklage lanced TOTAL ABDOMINAL HYSTERECT W/WO RMVL TUBE OVARY 1999 MAURICE/BSO-pain, no abnormal paps ALLERGIES Bactrim Ds [Sulfamethoxazole-Tri methoprim], Bee Sting, Adhesive Tape (Rosins), Darvon [Propoxyphene Hcl], Influenza Virus Vaccines, and Pepper (Genus Capsicum) MEDICATIONS ondansetron orally disintegrating (ZOFRAN ODT) 4 mg disintegrating tablet Take 1 tablet by mouth every 8 hours as needed for nausea/vomiting. apixaban (ELIQUIS) 5 mg tab(s) Take 1 tablet by mouth two times a day. Will start when delivered EPINEPHrine (EPIPEN) 0.3 mg/0.3 mL auto-injector Inject 0.3 ml intramuscular as needed. pantoprazole DR (PROTONIX) 20 mg tablet Take 1 tablet by mouth once daily. atorvastatin (LIPITOR) 40 mg tablet Take 1 tablet by mouth once daily. verapamil SR (CALAN SR) 240 mg CR tablet Take 1 tablet by mouth daily at bedtime. albuterol HFA (PROVENTIL HFA, VENTOLIN HFA) 90 mcg/actuation inhaler Inhale 2 Puffs as instructed every 6 hours as needed. fluticasone-salmetero l (ADVAIR DISKUS) 100-50 mcg/dose inhaler Inhale 1 Puff as instructed two times a day. RINSE AND GARGLE MOUTH WITH WATER AFTER EACH USE. fluticasone (FLONASE) 50 mcg/actuation nasal spray Use 2 Sprays in each nostril once daily. metoprolol tartrate, short acting, (LOPRESSOR) 25 mg tablet Take 1 tablet by mouth two times a day. fluticasone-salmetero l (ADVAIR DISKUS) 250-50 (more content not included)... Normal [facility] CNOVon 01-31-2024 CNOV Office Visit (INTMWS ) ROMAIN BAILEY ([id number]) 1950 F CHT Date Time Provider Department 01/31/24 10:40 AM FAITH MULLINS INTMWS During your visit today, we recorded the following information about you: Pulse Respiration Blood pressure Weight 99/minute 16/minute 110/68 87.5 kg Faith Mullins APRN.[facility] 01/31/2024 11:30 AM Signed SUBJECTIVE: Spirometry Never done Shingrix Vaccine(1 of 2) Never done RSV Vaccine(1 - Risk 60-74 years 1-dose series) Never done Mammogram Screening due on 06/26/2017 HPI Romain Bailey is a 73 year [...] of Tia (Transient Ischemic Attack) Dry Skin History of Asthma Acquired Stenosis of Nasolacrimal Duct, Right Unspecified Dacryocystitis of Right Lacrimal Passage Unspecified Injury of Right Lower Leg, Initial Encounter Chest Pain Contusion of Left Wrist Contusion of Knee, Left Contusion of Elbow Colitis Presents for [facility] emergency department follow-up visit. She was seen on January 26, 2024 for epigastric abdominal pain nausea vomiting and diarrhea. She noted abdominal pain could radiate up to her chest. Noted she was taking Zofran at home without any improvement. She did not notice dysuria urgency or frequency. She reported intermittent sinus congestion. CT of the abdomen and pelvis was completed. EKG and chest x-ray completed. CBC without concerning findings other than baseline mild anemia. CMP unremarkable. Lipase unremarkable. Troponin negative. Urinalysis did show UTI. CT showed no acute abnormality. Does have small hiatal hernia. She has been followed DrGio Cowan knockout worker, last seen a couple of months ago. She notes some persisting nausea but no vomiting, she has mild epigastric discomfort. No diarrhea. Afebrile. She was feeling improved but ate pork chops and green beans yesterday and did not feel well with it, otherwise feeling improved. Notes some neck discomfort and stiffness, may have slept wrong. Defers medication or additional measures at this time, will just use a heating pad. Review of Systems Constitutional: Negative. Objective BP 110/68 Pulse 99 Resp 16 Wt 87.5 kg (192 lb 14.4 oz) BMI 31.14 kg/m? Physical Exam Vitals and nursing note [...] sounds are normal. Palpations: Abdomen is soft. Skin: General: Skin is warm and dry. Neurological: General: No focal deficit present. Mental Status: She is alert and oriented to person, place, and time. ALLERGIES Allergen Reactions Bactrim Ds [Sulfame* Anaphylaxis Difficulty breathing, fever, chills Bee Sting Anaphylaxis Adhesive Tape (Marilou* Rash Darvon [Propoxyphen* Influenza Virus Vac* Other: See Comments Chest tightness, arm swelling. Pepper (Genus Capsi* Hives Medications cephALEXin (KEFLEX) 500 mg capsule every 12 hours. apixaban (ELIQUIS) 5 mg tab(s) Take 1 tablet by mouth two times a day. Will start when delivered EPINEPHrine (EPIPEN) 0.3 mg/0.3 mL auto-injector Inject 0.3 ml intramuscular as needed. pantoprazole DR (PROTONIX) 20 mg tablet Take 1 tablet by mouth once daily. atorvastatin (LIPITOR) 40 mg tablet Take 1 tablet by mouth once daily. verapamil SR (CALAN SR) 240 mg CR tablet Take 1 tablet by mouth daily at bedtime. albuterol HFA (PROVENTIL HFA, VENTOLIN HFA) 90 mcg/actuation inhaler Inhale 2 Puffs as instructed every 6 hours as needed. fluticasone-salmetero l (ADVAIR DISKUS) 100-50 mcg/dose inhaler Inhale 1 Puff as instructed two times a day. RINSE AND GARGLE MOUTH WITH WATER AFTER EACH USE. fluticasone (FLONASE) 50 mcg/actuation nasal spray Use 2 Sprays in each nostril once daily. metoprolol tartrate, short acting, (LOPRESSOR) 25 mg tablet Take 1 tablet by mouth two times a day. fluticasone-salmetero l (ADVAIR DISKUS) 250-50 mcg/dose inhaler I (more content not included)... Normal [facility] Urine Cultureon 01-28-2024 [facility] Presumptive E. coli [place] Count >100,000 Presumptive E. coli: REACTION Ampicillin Islt CARITO 16 Ampicillin+Sulbac Islt CARITO 4 S ceFAZolin Islt CARITO <=4 S Cefepime Islt CARITO <=0.12 S cefTRIAXone Islt CARITO <=0.25 S Ciprofloxacin Islt CARITO <=0.25 S B-Lactamase Extended Susc Islt NEG Gentamicin Islt CARITO <=1 S Imipenem Islt CARITO <=0.25 S levoFLOXacin Islt CARITO <=0.12 S Nitrofurantoin Islt CARITO <=16 S Pip+Tazo Islt CARITO <=4 S Tobramycin Islt CARITO <=1 S TMP SMX Islt CARITO <=20 S Normal [facility] Comment on above: Performed By: #### L 100.0100, L501.5473, L500.4050, L501.2450 #### [facility] [address] [place], [address] 12 Lead EKGon 01-26-2024 12 Lead EKG [facility] Cardi[facility] Services [address] [place] [address] 12 Lead EKG 01/26/24 1353 MR#: [id number] Acct: [id number] Name: ROMAIN BAILEY Rep #: [id number] : 1950 73 From: Steven Jeong MD Attending Dr: Status: DEP ER Ordering Dr: Alessandro Nair DO Date: 4 Location: ED Sex: F C Admitted: Test Reason : N/V, CP Blood Pressure : */* mmHG Vent. Rate : 100 BPM Atrial Rate : 100 BPM P-R Int : 138 ms QRS Dur : 74 ms QT Int : 360 ms P-R-T Axes : 63 17 62 degrees QTcB Int : 464 ms Normal sinus rhythm Normal ECG Confirmed by Steven Jeong ([id number]), electronic news gathering editor DERECK ALBA ([id number]) on 01/28/2024 11:37:17 AM Referred By: Confirmed By: Steven Jeong 01/28/24 113 Date Steven Jeong MD CC: Dr. Alessandro Nair DO; Dr. Fatemeh Rogers MD Signed Normal [facility] Abdomen/Pelvis W IV Cont ONL Yon 01-26-2024 Abdomen/Pelvis W IV Cont ONLY [facility] Imaging Services [address] [place] [address] Abdomen/Pelvis W IV Cont ONLY MR#: [id number] Acct: [id number] Name: ROMAIN BAILEY Rep #: [id number] : 1950 F 73 From: Vikram Spears MD PCP: Dr. Fatemeh Rogers MD Status: REG ER Study: Abdomen/Pelvis W IV Cont ONLY Date of Exam: Exam# [id number] Ordering Dr: Alessandro Nair DO [id number] EXAM: CT ABDOMEN AND PELVIS WITH INTRAVENOUS CONTRAST CLINICAL INDICATION: Abdominal pain TECHNIQUE: Helically acquired images were obtained of the abdomen and pelvis with intravenous contrast. This CT exam was performed using one or more of the following dose reduction techniques: automated exposure control, adjustment of the mA and/or kV according to patient size, and/or use of iterative reconstruction technique. CONTRAST: IV 100mL Isovue-370 COMPARISON: CT Abdomen Pelvis dated 12/15/2023 and 05/26/2023 FINDINGS: LOWER THORAX: Small hiatal hernia. ABDOMEN: LIVER: Normal. Homogeneous. No focal mass. GALLBLADDER AND BILE DUCTS: Cholecystectomy again seen. Prominence of the common bile duct within the range of normal for postcholecystectomy patient. PANCREAS: Normal. No focal cystic or solid mass. SPLEEN: Normal. Normal size without focal cystic or solid mass. ADRENALS: Normal. No nodules. KIDNEYS AND URETERS: Stable bilateral simple appearing renal cysts. No specific follow-up indicated. Normal renal size and position. No hydronephrosis. STOMACH AND BOWEL: Mild stool burden within the large bowel. Mild diverticulosis of sigmoid colon without evidence of acute diverticulitis. PELVIS: APPENDIX: Appendix is visualized and normal in appearance. BLADDER: Normal. REPRODUCTIVE: Hysterectomy noted. ABDOMEN and PELVIS: INTRAPERITONEAL SPACE: Normal. No ascites or other fluid collection. No free air. BONES/JOINTS: No suspicious lytic or blastic abnormality. SOFT TISSUES: Small fat-containing umbilical hernia is present. VASCULATURE: Normal. Abdominal aorta is non-dilated. LYMPH NODES: Normal. No enlarged lymph nodes. CT/Abdomen/Pelvis W IV Cont ONLY IMPRESSION: 1. No acute abdominal or pelvic abnormality. 2. Small hiatal hernia. Electronically Signed: Vikram Spears MD at 16:08 EST , CC: Dr. Alessandro Nair DO; Dr. Fatemeh Rogers MD Apparel Patternmaker: Signed Normal [facility] CBC W/Diff, Automatedon 11-3 -2023 Absolute Lymph 0.39 X10 3/uL Low 0.83-4.51 [facility] Comment on above: Performed By: #### L 100.0100, L501.5425, L500.4050, L501.2450 #### [facility] [address] [place], [address] Absolute Neut 7.2 X10 3/uL Normal 2.0-7.7 [facility] Comment on above: Performed By: #### L 100.0100, L501.5425, L500.4050, L501.2450 #### [facility] [address] [place], [address] Basophils/100 WBC (Bld) 0.3 % Normal 0-1 [facility] Comment on above: Performed By: #### L 100.0100, L501.5425, L500.4050, L501.2450 #### [facility] [address] [place], [address] Eosinophils/100 WBC (Bld) 0.5 % Normal 0-5 [facility] Comment on above: Performed By: #### L 100.0100, L501.5425, L500.4050, L501.2450 #### [facility] [address] [place], [address] Erythrocyte distribution width (RBC) [Ratio] 18.1 % High 11.6-14.6 [facility] Comment on above: Performed By: #### L 100.0100, L501.5425, L500.4050, L501.2450 #### [facility] [address] [place], [address] Hematocrit (Bld) [Volume fraction] 40.7 % Normal 37-47 [facility] Comment on above: Performed By: #### L 100.0100, L501.5425, L500.4050, L501.2450 #### [facility] [address] [place], [address] Hemoglobin (Bld) [Mass/Vol] 11.5 g/dL Low 12.0-15. 0 [facility] Comment on above: Performed By: #### L 100.0100, L501.5425, L500.4050, L501.2450 #### [facility] [address] [place], [address] IG% 0.500 Normal 0.0-0.9 [facility] Comment on above: Result Comment: IG% - Immature Granulocytes (promyelocytes, myelocytes and metamyelocytes) > 1% indicates that a LEFT SHIFT is Present. Performed By: #### L 100.0100, L501.5425, L500.4050, L501.2450 #### [facility] [address] [place], [address] Lymphocytes/100 WBC (Bld) 4.9 % Low 19-41 [facility] Comment on above: Performed By: #### L 100.0100, L501.5425, L500.4050, L501.2450 #### [facility] [address] [place], [address] MCH (RBC) [Entitic mass] 19.4 pg Low 27.0-32.0 [facility] Comment on above: Performed By: #### L 100.0100, L501.5425, L500.4050, L501.2450 #### [facility] [address] [place], [address] MCHC (RBC) [Mass/Vol] 28.3 g/dL Low 32-36 [facility] Comment on above: Performed By: #### L 100.0100, L501.5425, L500.4050, L501.2450 #### [facility] [address] [place], [address] MCV (RBC) [Entitic vol] 68.8 fL Low 81-99 [facility] Comment on above: Performed By: #### L 100.0100, L501.5425, L500.4050, L501.2450 #### [facility] [address] [place], [address] Monocytes/100 WBC (Bld) 3.5 % Normal 0-10 [facility] Comment on above: Performed By: #### L 100.0100, L501.5425, L500.4050, L501.2450 #### [facility] [address] [place], [address] Neutrophils/100 WBC (Bld) 90.3 % High 47-70 [facility] Comment on above: Performed By: #### L 100.0100, L501.5425, L500.4050, L501.2450 #### [facility] [address] [place], [address] Nucleated RBC (Bld) [#/Vol] 0 10*3/uL Normal 0-5 [facility] Comment on above: Performed By: #### L 100.0100, L501.5425, L500.4050, L501.2450 #### [facility] [address] [place], [address] Platelet mean volume (Bld) [Entitic vol] 8.8 fL Normal 6.2-12.0 [facility] Comment on above: Performed By: #### L 100.0100, L501.5425, L500.4050, L501.2450 #### [facility] [address] [place], [address] Platelets (Bld) [#/Vol] 380 10*3/uL Normal 150-450 [facility] Comment on above: Performed By: #### L 100.0100, L501.5425, L500.4050, L501.2450 #### [facility] [address] [place], [address] RBC (Bld) [#/Vol] 5.92 10*6/uL High 4.2-5.4 [facility] Comment on above: Performed By: #### L 100.0100, L501.5425, L500.4050, L501.2450 #### [facility] [address] [place], [address] RDW SD 41.2 fl Normal 35.1-43.9 [facility] [facility] Comment on above: Performed By: #### L 100.0100, L501.5425, L500.4050, L501.2450 #### [facility] [address] [place], [address] WBC (Bld) [#/Vol] 7.9 10*3/uL Normal 4.4-11.0 [facility] Comment on above: Performed By: #### L 100.0100, L501.5425, L500.4050, L501.2450 #### [facility] [address] [place], [address] Chest PA and Lateralon 01-25 Chest PA and Lateral [facility] [address] [place] [address] Chest PA and Lateral MR#: [id number] Acct: [id number] Name: ROMAIN BAILEY Rep #: [id number] : 1950 F 73 From: Vikram Spears MD PCP: Dr. Fatemeh Rogers MD Status: [facility] ER Study: Chest PA and Lateral Date of Exam: 01/26/24 Exam# [id number] Ordering Dr: Alessandro Nair DO [id number] EXAM: XR CHEST, 2 VIEWS CLINICAL INDICATION: Chest pain TECHNIQUE: Frontal and lateral views of the chest. COMPARISON: XR Chest dated 02/17/2023 FINDINGS: LUNGS AND PLEURAL SPACES: Postinflammatory changes at the lung apices again seen. Stable hyperinflated appearance of the lungs suggestive of underlying COPD. HEART: Normal heart size. MEDIASTINUM: No mediastinal or hilar mass. BONES/JOINTS: No acute abnormality. RAD/Chest PA and Lateral IMPRESSION: No acute cardiopulmonary abnormality. No interval change. Electronically Signed: Vikram Spears MD at 16:10 EST Reading Location ID and State: [address] [place] [address] Tel , Service support , CC: Dr. Alessandro Nair DO; Dr. Fatemeh Rogers MD Apparel Patternmaker: Signed Normal [facility] Metabolic Prof ilon 01-26-2024 Albumin [Mass/Vol] 3.6 g/dL Normal 3.2-5.0 [facility] Comment on above: Order Comment: 1 Y Performed By: #### L 100.0100, L501.5425, L500.4050, L501.2450 #### [facility] [address] [place], [address] Albumin/Globulin [Mass ratio] 1.1 {ratio} Normal 0.9-2.4 [facility] Comment on above: Order Comment: 1 Y Performed By: #### L 100.0100, L501.5425, L500.4050, L501.2450 #### [facility] [address] [place], [address] ALK P 160 U/L High 45-117 [facility] Comment on above: Order Comment: 1 Y Performed By: #### L 100.0100, L501.5425, L500.4050, L501.2450 #### [facility] [address] [place], [address] ALT [Catalytic activity/Vol] 18 U/L Normal 13-56 [facility] Comment on above: Order Comment: 1 Y Performed By: #### L 100.0100, L501.5425, L500.4050, L501.2450 #### [facility] [address] [place], [address] AST [Catalytic activity/Vol] 16 U/L Normal 15-37 [facility] Comment on above: Order Comment: 1 Y Performed By: #### L 100.0100, L501.5425, L500.4050, L501.2450 #### [facility] [address] [place], [address] Bilirubin [Mass/Vol] 0.80 mg/dL Normal 0.20-1.00 [facility] Comment on above: Order Comment: 1 Y Result Comment: For patients on eltrombopag therapy, use of Dimension Grandin TBIL is not recommended. Performed By: #### L 100.0100, L501.5425, L500.4050, L501.2450 #### [facility] [address] [place], [address] BUN/CRE 25.9 RATIO High 10-20 [facility] Comment on above: Order Comment: 1 Y Performed By: #### L 100.0100, L501.5425, L500.4050, L501.2450 #### [facility] [address] [place], [address] CA,Total 8.7 mg/dL Normal 8.5-10.1 [facility] Comment on above: Order Comment: 1 Y Performed By: #### L 100.0100, L501.5425, L500.4050, L501.2450 #### [facility] [address] [place], [address] Chloride [Moles/Vol] 108 mmol/L High 98-107 [facility] Comment on above: Order Comment: 1 Y Performed By: #### L 100.0100, L501.5425, L500.4050, L501.2450 #### [facility] [address] [place], [address] CO2 [Moles/Vol] 27.0 mmol/L Normal 21.0-32.0 [facility] Comment on above: Order Comment: 1 Y Performed By: #### L 100.0100, L501.5425, L500.4050, L501.2450 #### [facility] [address] [place], [address] Creatinine [Mass/Vol] 0.77 mg/dL Normal 0.55-1.02 [facility] Comment on above: Order Comment: 1 Y Result Comment: The validity of the calculated GFR GFRAA in patients over 70 years has not been determined. Clinical correlation is essential. Performed By: #### L 100.0100, L501.5425, L500.4050, L501.2450 #### [facility] [address] [place], [address] ECRCL 71.99 ml/min Normal [facility] Comment on above: Order Comment: 1 Y Performed By: #### L 100.0100, L501.5425, L500.4050, L501.2450 #### [facility] [address] [place], [address] EST GFR - AA 94 mL/min Normal >60 [facility] Comment on above: Order Comment: 1 Y Result Comment: Afri can Nigerien GFR Calc Performed By: #### L 100.0100, L501.5425, L500.4050, L501.2450 #### [facility] [address] [place], [address] GAP 6 Normal 5-15 [facility] Comment on above: Order Comment: 1 Y Performed By: #### L 100.0100, L501.5425, L500.4050, L501.2450 #### [facility] [address] [place], [address] GFR/1.73 sq M.predicted among non-blacks MDRD (S/P/Bld) [Vol rate/Area] 78 mL/min/{1.73_m2} Normal >60 [facility] Comment on above: Order Comment: 1 Y Result Comment: Non- GFR Calc Performed By: #### L 100.0100, L501.5425, L500.4050, L501.2450 #### [facility] [address] [place], [address] Globulin (S) [Mass/Vol] 3.4 g/dL Normal 2.2-4.2 [facility] Comment on above: Order Comment: 1 Y Performed By: #### L 100.0100, L501.5425, L500.4050, L501.2450 #### [facility] [address] [place], [address] Glucose [Mass/Vol] 120 mg/dL High 74-106 [facility] Comment on above: Order Comment: 1 Y Result Comment: Fast ing Glucose result from 100 to 125 mg/dL suggests IMPAIRED HOMEOSTASIS per A.D.A. criteria. Performed By: #### L 100.0100, L501.5425, L500.4050, L501.2450 #### [facility] [address] [place], [address] Potassium [Moles/Vol] 3.7 mmol/L Normal 3.5-5.1 [facility] Comment on above: Order Comment: 1 Y Performed By: #### L 100.0100, L501.5425, L500.4050, L501.2450 #### [facility] [address] [place], [address] Sodium [Moles/Vol] 141 mmol/L Normal 136-145 [facility] Comment on above: Order Comment: 1 Y Performed By: #### L 100.0100, L501.5425, L500.4050, L501.2450 #### [facility] [address] [place], [address] T PROT 7.0 g/dL Normal 6.4-8.2 [facility] Comment on above: Order Comment: 1 Y Performed By: #### L 100.0100, L501.5425, L500.4050, L501.2450 #### [facility] [address] [place], [address] Urea nitrogen [Mass/Vol] 20 mg/dL High 7-18 [facility] Comment on above: Order Comment: 1 Y Performed By: #### L 100.0100, L501.5425, L500.4050, L501.2450 #### [facility] [address] [place], [address] Emergency Department Summary on 01-26-2024 Emergency Department Summary [facility] Medical Records Department [address] [place] [address] Emergency Department Summary 01/26/24 MR#: [id number] Acct: [id number] Name: ROMAIN BAILEY Rep #: [id number] : 1950 73 From: Alessandro Nair DO PCP: Dr. Fatemeh Rogers MD Status:REG ER Location: ED HPI History of Present Illness Chief Complaint: Chest Pain Narrative Narrative: Chief complaint and HPI: Epigastric abdominal pain. 73-year-old female with history of proximal atrial fibrillation on Eliquis, asthma, GERD, HTN, HLD presents for evaluation of epigastric abdominal pain with nausea and vomiting. Patient states that today she developed acid reflux with epigastric abdominal pain. She states shortly after she developed nausea, nonbloody vomiting, nonbloody diarrhea. Patient states she took Zofran at home without any improvement. She states her epigastric abdominal pain radiates into her chest. She denies any fever, cough, shortness of breath, dysuria. Patient has not been on any antibiotics. She states for the past week she has been having intermittent sinus congestion. No recent travel. Review of systems: See HPI Medications: As listed on the chart Allergies: As listed on the chart PFSH: Per chart Vital signs: As listed on the chart. Reviewed. Physical exam: Gen: A O x3, NAD Head: Normocephalic, atraumatic Eyes: No sclera icterus, conjunctiva clear ENT: Moist mucous membranes Neck: Trachea midline, No JVD CV: RRR, no murmurs, no peripheral edema Resp: Lungs CTA BL, no w/r/c GI: Abd soft, non-distended, mild diffuse tenderness to palpation, no r/r Musc: Full ROM, no deformity Skin: Warm, dry Neuro: Alert, oriented, grossly intact, sensation intact Psych: Cooperative, appropriate mood and affect [facility] Medical History Ischemic colitis Symptomatic anemia History of cataract Diarrhea Post-menopausal Wears partial dentures History of Clostridium difficile infection Osteoarthritis Osteoarth NOS-up/arm 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 Ambulates with cane Back pain History of hiatal hernia History of stress test Non-smoker Colitis Acute lower gastrointestinal bleeding Osteoporosis Atrial fibrillation Traumatic hematoma of abdominal wall Secondary pulmonary arterial hypertension Paroxysmal atrial fibrillation Essential (primary) hypertension Suspected 2019 novel coronavirus infection (05/19/19) Community acquired pneumonia On amiodarone therapy 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 TIA (transient ischemic attack) Asthma HLD (hyperlipidemia) CVA (cerebral vascular accident) BMI greater than 30 Migraine GERD (gastroesophageal reflux disease) Home Medications ???Medication ???Instructions ???Recorded ???Last Taken ???Type epinephrine 0.3 mg/0.3 mL 0.3 mg IM X1 ALLERGIC REACTIONS 05/04/13 Unknown History injection, auto-injector loratadine 10 mg tablet 10 mg PO DAILY ALLERGIES 05/04/13 05/26/23 History albuterol sulfate 90 mcg/actuation 2 puff inhalation Q6H PRN Sob /Or 12/26/15 09/09/19 History aerosol inhaler Wheezing meclizine 25 mg tablet 25 mg PO Q6H PRN Dizziness 03/28/16 05/26/23 History fluticasone propionate 50 2 spray NASAL DAILY PRN Allergies 07/02/18 09/15/21 History mcg/actuation nasal spray,suspension albuterol sulfate 2.5 mg/3 mL 2.5 mg inhalation Q4H PRN Sob /Or 12/04/18 12/01/18 History (0.083 %) solution for nebulization Wheezing verapamil 240 mg tablet,extended 240 mg PO DAILY BP #90 tabs 12/30/19 05/26/23 Rx release atorvastatin 40 mg tablet 40 mg PO DAILY cholesterol 11/18/21 05/26/23 History pantoprazole 40 mg tablet,delayed See Rx Instructions .Route 06/12/22 05/26/23 Rx release .COMPLEX stomach #90 tabs metoprolol tartrate 25 mg tablet 25 mg PO BID 30 days #60 tabs 02/20/23 05/26/23 Rx apixaban 5 mg tablet (Eliquis) 5 mg PO BID thinner #180 tabs 08/10/23 Unknown Rx dicyclomine 10 mg capsule 20 mg (2 x 10 mg) PO Q6H PRN 12/16/23 Unknown Rx abdominal pain #30 caps fluticasone 100 mcg-salmeterol 50 1 inh inhalation BID PRN 12/19/23 Unknown History mcg/dose blistr powdr for inhalation (Advair Diskus) Allergy/AdvReac Type Severity Reaction Status Date / Time adhesive tape Allergy Rash Verified 01/26/24 13:44 pepper (genus Capsicum) Allergy Hives Verified 01/26/24 13:44 propoxyphene HCl (From Allergy Rash Verified 01/26/24 13:44 Darvon) sulfamethoxazole (From Allergy Shortness Verified 01/26/24 13:44 Bactrim) of breath trimethoprim (From Bactrim) Allergy Shortness Verified 01/26/24 13:44 of breath venom-honey bee (bee venom Allergy Anaphylaxis Verified 01/26/24 13:44 (honey bee)) venom-wasp (wasp venom) Allergy Anaphylaxis Verified 01/26/24 13:44 Family History (Reviewed 06/13/23 @ (more content not included)... Normal [facility] L501.4020on 01-26-2024 TROPONIN-I HS 13 pg/mL Normal 3.0-54.0 [facility] Comment on above: Result Comment: Pleanabel joshua Note: New Test Units and Gender Specific Reference Ranges. For more information see Policy Stat Procedure Grandin High Sensitivity Troponin (TNIH) and attachments. Performed By: #### L 100.0100, L501.1997, L500.4050, L501.2450 #### [facility] [address] [place], [address] L501.5425on 01-26-2024 TROPONIN-I HS 10 pg/mL Normal 3.0-54.0 [facility] Comment on above: Order Comment: 1 Y Result Comment: Jelly joshua Note: New Test Units and Gender Specific Reference Ranges. For more information see Policy Stat Procedure Grandin High Sensitivity Troponin (TNIH) and attachments. Performed By: #### L 100.0100, L501.5425, L500.4050, L501.2450 #### [facility] [address] [place], [address] Lipaseon 01-26-2024 Lipase [Catalytic activity/Vol] 23 U/L Normal 13-75 [facility] Comment on above: Order Comment: 1 Y Result Comment: Jelly joshua note: LIPASE revised reference range effective 22. New Lipase methodology. Expected to produce lower values than the previous assay method. NEW Reference Range: 13 - 75 U/L Performed By: #### L 100.0100, L501.5425, L500.4050, L501.2450 #### [facility] [address] [place], [address] Urinalysis, Completeon 01-25 BACTERIA 3+ /hpf Normal None Seen [facility] Comment on above: Order Comment: CLEAN CATCH Performed By: #### L 100.0100, L501.5425, L500.4050, L501.2450 #### [facility] [address] [place], [address] EPI,SQUAMOUS 0-5 SEEN Normal 5-10 [facility] Comment on above: Order Comment: CLEAN CATCH Performed By: #### L 100.0100, L501.5425, L500.4050, L501.2450 #### [facility] [address] [place], [address] Mucus Ql (Urine sed) 1+ /hpf Normal [facility] Comment on above: Order Comment: CLEAN CATCH Performed By: #### L 100.0100, L501.5425, L500.4050, L501.2450 #### [facility] [address] [place], [address] WBC 5-10 SEEN Normal 0-5 [facility] Comment on above: Order Comment: CLEAN CATCH Performed By: #### L 100.0100, L501.5425, L500.4050, L501.2450 #### [facility] [address] [place], [address] RBC 0 SEEN Normal 0-5 [facility] Comment on above: Order Comment: CLEAN CATCH Performed By: #### L 100.0100, L501.5425, L500.4050, L501.2450 #### [facility] [address] [place], [address] CNOVon 01-11-2024 CNOV Office Visit (INTMWS ) ROMAIN BAILEY ([id number]) 1950 F T Date Time Provider Department 01/11/24 10:40 AM FAITH MULLINS INTMWS During your visit today, we recorded the following information about you: Temperature Pulse Respiration Blood pressure 98.5 degrees 62/minute 16/minute 132/66 Weight 87.6 kg Faith Mullins APRN.FINANCIAL SALES CONSULTANT 01/11/2024 11:30 AM Signed SUBJECTIVE: Spirometry Never done Depression Screening Never done Anxiety Screening Never done Shingrix Vaccine(1 of 2) Never done RSV Vaccine(1 - Risk 60-74 years 1-dose series) Never done Mammogram Screening due on 06/26/2017 Colorectal Cancer Screening due on 05/30/2023 Influenza Vaccine(1) due on 10/28/2023 Covid-19 Vaccine( season) due on 10/28/2023 HPI Romain Bailey is a 73 year [...] of Tia (Transient Ischemic Attack) Dry Skin History of Asthma Acquired Stenosis of Nasolacrimal Duct, 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 reports colonoscopy about 2 years ago. Without current GI complaints. Notes daily BM. Notes some allergy symptoms, stuffy nose, itchy eyes, using loratadine which helps somewhat, not currently using flonase. She reports chronic right knee pain, 2 falls recently. Notes some mild swelling. Has not sought care with the falls, able to ambulate with a cane but continues to note pain. Has been taking news-buq-[id number] ibuprofen which has helped somewhat. Knows she needs to follow-up with orthopedic provider. Holding off until she has more secure transportation, daughter is currently using her car. HTN: Occasional palpitations. headache, chest pain, dyspnea, peripheral edema, orthopnea, fatigue, and PND. Last 14 Encounter BP Readings: Date: BP: 01/11/2024 132/66 07/30/2023 127/73 07/26/2023 155/67 07/04/2023 138/70 06/08/2023 118/64 03/19/2023 136/73 03/12/2023 129/71 02/27/2023 122/72 02/10/2023 134/76 01/01/2023 126/77 11/25/2022 128/74 11/16/2022 170/80 09/07/2022 126/72 08/10/2022 108/50 Hyperlipidemia. Ms. Bailey reports doing well on [...] 06/30/2022 224 Review of Systems Constitutional: Negative. Musculoskeletal: Positive for arthralgias. Objective BP 132/66 Pulse 62 Temp 36.9 ?C (98.5 ?F) Resp 16 Wt 87.6 kg (193 lb 2 oz) SpO2 98% BMI 31.17 kg/m? Physical Exam Vitals and nursing note [...] normal. Palpations: Abdomen is soft. Musculoskeletal: Right knee: Effusion (small lateral to patella) present. No swelling. Decreased range of motion. Tenderness present. Skin: General: Skin is warm and dry. Neurological: General: No focal deficit present. Mental Status: She is alert and oriented to person, place, and time. ALLERGIES Allergen Reactions Bactrim Ds [Sulfame* Anaphylaxis Difficulty breathi (more content not included)... Normal [facility] UA DIP, URINE (POC)on 2023 BILIRUBIN UA (POCT) Negative Negative [facility] CLARITY UA (POCT) Cloudy [facility] COLOR UA (POCT) Yellow [facility] GLUCOSE UA (POCT) Negative Negative mg/dL [facility] Hemoglobin Ql (U) Small Abnormal Negative [facility] Interpretation and review of laboratory results Abnormal [facility] KETONE UA (POCT) Negative Negative mg/dL [facility] LEUKOCYTES UA (POCT) Moderate Abnormal Negative [facility] NITRITE UA (POCT) Negative Negative [facility] PH UA (POCT) 6.5 4.5 - 8.0 [facility] Protein Ql (U) 30 mg/dL Abnormal Negative [facility] SPECIFIC GRAVITY UA (POCT) 1.020 1 .005 - 1.030 [facility] UROBILINOGEN UA (POCT) 0.2 Ariane l E.U./dL [facility] Location:[address], [place], [place], [address] [place] [address] POINT OF CARE [facility] Absolute lymphocyte countOrd ered By: Maxine Griffin on 05-30-2023 Lymphocytes Auto (Unsp spec) [#/Vol] 1.30 10*3/uL 0.83-4.51 [facility] Automated lymphocyte count a s percentage of total leukocytesOrdered By: Maxine Griffin on 05-30-2023 Lymphocytes/100 WBC Auto (Unsp spec) 27.3 % 19-41 [facility] Basophil percentageOrdered B y: Maxine Griffin on 05-30-2023 Basophils/100 WBC (Bld) 0.6 % 0-1 [facility] Chloride [Moles/Vol] 111 mmol/L 98-107 [facility] Eosinophils/100 WBC (Bld) 4.2 % 0-5 [facility] Glucose [Mass/Vol] 104 mg/dL 74-106 [facility] Comment on above: Fasting Glucose resu lt from 100 to 125 mg/dL suggests IMPAIRED HOMEOSTASIS per A.D.A. criteria. Hemoglobin (Bld) [Mass/Vol] 8.1 g/dL 12.0-15. 0 [facility] Monocytes/100 WBC (Bld) 10.9 % 0-10 [facility] Neutrophils (Bld) [#/Vol] 2.7 10*3/uL 2.0-7.7 [facility] Neutrophils/100 WBC (Bld) 56.8 % 47-70 [facility] Potassium [Moles/Vol] 3.8 mmol/L 3.5-5.1 [facility] Sodium [Moles/Vol] 143 mmol/L 136-145 [facility] WBC (Bld) [#/Vol] 4.8 10*3/uL 4.4-11.0 [facility] Determination of erythrocyte mean corpuscular volume (MCV)Ordered By: Maxine Griffin on 05-30-2023 MCV (RBC) [Entitic vol] 80.2 fL 81-99 [facility] Erythrocyte distribution wid th ratioOrdered By: Maxine Griffin on 05-30-2023 Erythrocyte distribution width (RBC) [Ratio] 15.0 % 11.6-14.6 [facility] Erythrocyte distribution wid th standard deviationOrdered By: Maxine Griffin on 05-30-2023 Erythrocyte distribution width (RBC) [Entitic vol] 43.8 fL 35.1-43.9 [facility] Hematocrit Auto (Bld) [Volum e fraction]Ordered By: Maxine Griffin on 05-30-2023 Hematocrit (Bld) [Volume fraction] 26.7 % 37-47 [facility] Immature granulocytes/100 WB C Auto (Bld)Ordered By: Maxine Griffin on 05-30-2023 Immature granulocytes/100 WBC (Bld) 0.200 % 0.0-0.9 [facility] Comment on above: IG% - Immature Granu locytes (promyelocytes, myelocytes and metamyelocytes) > 1% indicates that a LEFT SHIFT is Present. Laboratory - Chemistry and C hemistry - challengeOrdered By: Maxine Griffin on 05-30-2023 CO2 [Moles/Vol] 27.0 mmol/L 21.0-32.0 [facility] Urea nitrogen/Creatinine [Mass ratio] 14.2 mg/mg 10-20 [facility] - Hematology and Cell countsOrdered By: Maxine Griffin on 05-30-2023 MCH (RBC) [Entitic mass] 24.3 pg 27.0-32.0 [facility] MCHC (RBC) [Mass/Vol] 30.3 g/dL 32-36 [facility] Nucleated RBC/100 WBC (Bld) [Ratio] 0 % 0-5 [facility] Platelet mean volume (Bld) [Entitic vol] 10.1 fL 6.2-12.0 [facility] Platelets (Bld) [#/Vol] 307 10*3/uL 150-450 [facility] No Panel InformationOrdered By: Maxine Griffin on 05-30-2023 Estimated Creatinine Clearance Calc 73.21 ml/min [facility] Estimated GFR (MDRD) Amer 105 mL/min >60 [facility] Comment on above: GFR Calc Estimated GFR (MDRD) Non-Af Amer 87 mL/min >60 [facility] Comment on above: Non- GFR Calc RBC Auto (Bld) [#/Vol]Ordere d By: Maxine Griffin on 05-30-2023 RBC (Bld) [#/Vol] 3.33 10*6/uL 4.2-5.4 [facility] Serum or plasma calcium shruthi urement (mass/volume)Ordered By: Maxine Griffin on 05-30-2023 Calcium [Mass/Vol] 8.1 mg/dL 8.5-10.1 [facility] Serum or plasma creatinine m easurement (mass/volume)Ordered By: Maxine Griffin on 05-30-2023 Creatinine [Mass/Vol] 0.70 mg/dL 0.55-1.02 [facility] Comment on above: The validity of the calculated GFR & GFRAA in patients over 70 years has not been determined. Clinical correlation is essential. Serum or plasma urea nitroge n measurement (mass/volume)Ordered By: Maxine Griffin on 05-30-2023 Urea nitrogen [Mass/Vol] 10 mg/dL 7-18 [facility] Thin prep Papanicolaou smear with manual screeningOrdered By: Maxine Griffin on 05-30-2023 Thin prep Papanicolaou smear with manual screening 5 5-15 [facility] Basophil percentageOrdered B y: Nilo Stroud on 05-27-2023 Bilirubin [Mass/Vol] 0.60 mg/dL 0.20-1.00 [facility] Comment on above: For patients on eltr ombopag therapy, use of Dimension Grandin TBIL is not recommended. Protein [Mass/Vol] 5.3 g/dL 6.4-8.2 [facility] Laboratory - Chemistry and C hemistry - challengeOrdered By: Nilo Stroud on 05-27-2023 Albumin/Globulin [Mass ratio] 1.1 {ratio} 0.9-2.4 [facility] ALP [Catalytic activity/Vol] 111 U/L 45-117 [facility] ALT [Catalytic activity/Vol] 17 U/L 13-56 [facility] Globulin (S) [Mass/Vol] 2.5 g/dL 2.2-4.2 [facility] Laboratory - CoagulationOrde red By: Nilo Stroud on 05-27-2023 INR Coag (Bld) [Relative time] 1.3 {INR} [facility] PT Coag (PPP) [Time] 15.9 s 11.7-14.9 [facility] Thin prep Papanicolaou smear with manual screeningOrdered By: Nilo Stroud on 05-27-2023 Thin prep Papanicolaou smear with manual screening 2.8 g/dL 3.2-5.0 [facility] Thin prep Papanicolaou smear with manual screening 16 U/L 15-37 [facility] Absolute lymphocyte countOrd ered By: Dwight Ruff on 05-26-2023 Lymphocytes Auto (Unsp spec) [#/Vol] 1.59 10*3/uL 0.83-4.51 [facility] Automated lymphocyte count a s percentage of total leukocytesOrdered By: Dwight Ruff on 05-26-2023 Lymphocytes/100 WBC Auto (Unsp spec) 27.0 % 19-41 [facility] Basophil percentageOrdered B y: Dwight Ruff on 05-26-2023 Lactate [Moles/Vol] 0.9 mmol/L 0.4-2.0 [facility] Basophils/100 WBC (Bld) 0.7 % 0-1 [facility] Bilirubin [Mass/Vol] 0.40 mg/dL 0.20-1.00 [facility] Comment on above: For patients on eltr ombopag therapy, use of Dimension [place] TBIL is not recommended. Chloride [Moles/Vol] 111 mmol/L 98-107 [facility] Eosinophils/100 WBC (Bld) 1.4 % 0-5 [facility] Glucose [Mass/Vol] 152 mg/dL 74-106 [facility] Comment on above: Fasting Glucose resu lt greater than or equal to 126 mg/dL suggests DIABETES MELLITUS per A.D.A. criteria. Hemoglobin (Bld) [Mass/Vol] 8.2 g/dL 12.0-15. 0 [facility] Lactate [Moles/Vol] 2.4 mmol/L 0.4-2.0 [facility] Comment on above: Critical Result(s) C alled at: 14:32:04 05/26/2023 by: Jigar Schmitz. Roel Piña RN (ER). Results read back by same. Monocytes/100 WBC (Bld) 7.3 % 0-10 [facility] Neutrophils (Bld) [#/Vol] 3.7 10*3/uL 2.0-7.7 [facility] Neutrophils/100 WBC (Bld) 63.3 % 47-70 [facility] Potassium [Moles/Vol] 3.2 mmol/L 3.5-5.1 [facility] Protein [Mass/Vol] 5.9 g/dL 6.4-8.2 [facility] Sodium [Moles/Vol] 142 mmol/L 136-145 [facility] WBC (Bld) [#/Vol] 5.9 10*3/uL 4.4-11.0 [facility] Determination of erythrocyte mean corpuscular volume (MCV)Ordered By: Dwight Ruff on 05-26-2023 MCV (RBC) [Entitic vol] 78.4 fL 81-99 [facility] Erythrocyte distribution wid th ratioOrdered By: Dwight Ruff on 05-26-2023 Erythrocyte distribution width (RBC) [Ratio] 14.6 % 11.6-14.6 [facility] Erythrocyte distribution wid th standard deviationOrdered By: Dwight Ruff on 05-26-2023 Erythrocyte distribution width (RBC) [Entitic vol] 41.9 fL 35.1-43.9 [facility] Hematocrit Auto (Bld) [Volum e fraction]Ordered By: Dwight Ruff on 05-26-2023 Hematocrit (Bld) [Volume fraction] 27.6 % 37-47 [facility] Immature granulocytes/100 WB C Auto (Bld)Ordered By: Dwight Ruff on 05-26-2023 Immature granulocytes/100 WBC (Bld) 0.300 % 0.0-0.9 [facility] Comment on above: IG% - Immature Granu locytes (promyelocytes, myelocytes and metamyelocytes) > 1% indicates that a LEFT SHIFT is Present. Laboratory - Chemistry and C hemistry - challengeOrdered By: Dwight Ruff on 05-26-2023 Albumin/Globulin [Mass ratio] 1.2 {ratio} 0.9-2.4 [facility] ALP [Catalytic activity/Vol] 123 U/L 45-117 [facility] ALT [Catalytic activity/Vol] 19 U/L 13-56 [facility] CO2 [Moles/Vol] 24.0 mmol/L 21.0-32.0 [facility] Globulin (S) [Mass/Vol] 2.7 g/dL 2.2-4.2 [facility] Urea nitrogen/Creatinine [Mass ratio] 17.5 mg/mg 10-20 [facility] Laboratory - Hematology and Cell countsOrdered By: Dwight Ruff on 05-26-2023 MCH (RBC) [Entitic mass] 23.3 pg 27.0-32.0 [facility] MCHC (RBC) [Mass/Vol] 29.7 g/dL 32-36 [facility] Nucleated RBC/100 WBC (Bld) [Ratio] 0 % 0-5 [facility] Platelet mean volume (Bld) [Entitic vol] 9.7 fL 6.2-12.0 [facility] Platelets (Bld) [#/Vol] 297 10*3/uL 150-450 [facility] No Panel InformationOrdered By: Dwight Ruff on 05-26-2023 Estimated Creatinine Clearance Calc 64.36 ml/min [facility] Estimated GFR (MDRD) Amer 78 mL/min >60 [facility] Comment on above: GFR Calc Estimated GFR (MDRD) Non-Af Amer 64 mL/min >60 [facility] Comment on above: Non- GFR Calc RBC Auto (Bld) [#/Vol]Ordere d By: Dwight Ruff on 05-26-2023 RBC (Bld) [#/Vol] 3.52 10*6/uL 4.2-5.4 [facility] Serum or plasma calcium shruthi urement (mass/volume)Ordered By: Dwight Ruff on 05-26-2023 Calcium [Mass/Vol] 8.3 mg/dL 8.5-10.1 [facility] Serum or plasma creatinine m easurement (mass/volume)Ordered By: Dwight Ruff on 05-26-2023 Creatinine [Mass/Vol] 0.91 mg/dL 0.55-1.02 [facility] Comment on above: The validity of the calculated GFR & GFRAA in patients over 70 years has not been determined. Clinical correlation is essential. Serum or plasma urea nitroge n measurement (mass/volume)Ordered By: Dwight Ruff on 05-26-2023 Urea nitrogen [Mass/Vol] 16 mg/dL 7-18 [facility] Thin prep Papanicolaou smear with manual screeningOrdered By: Dwight Ruff on 05-26-2023 Thin prep Papanicolaou smear with manual screening 3.2 g/dL 3.2-5.0 [facility] Thin prep Papanicolaou smear with manual screening 15 U/L 15-37 [facility] Thin prep Papanicolaou smear with manual screening 7 5-15 [facility] ECHOon 03-20-2023 [facility] Absolute lymphocyte countOrd ered By: Agustín Viramontes on 02-19-2023 Lymphocytes Auto (Unsp spec) [#/Vol] 1.35 10*3/uL 0.83-4.51 [facility] Basophil percentageOrdered B y: Agustín Viramontes on 02-19-2023 Basophils/100 WBC (Bld) 0.1 % 0-1 [facility] Chloride [Moles/Vol] 107 mmol/L 98-107 [facility] Eosinophils/100 WBC (Bld) 0.1 % 0-5 [facility] Glucose [Mass/Vol] 119 mg/dL 74-106 [facility] Comment on above: Fasting Glucose resu lt from 100 to 125 mg/dL suggests IMPAIRED HOMEOSTASIS per A.D.A. criteria. Neutrophils (Bld) [#/Vol] 13.4 10*3/uL 2.0-7.7 [facility] Neutrophils/100 WBC (Bld) 83.4 % 47-70 [facility] Potassium [Moles/Vol] 3.7 mmol/L 3.5-5.1 [facility] Sodium [Moles/Vol] 140 mmol/L 136-145 [facility] WBC (Bld) [#/Vol] 16.0 10*3/uL 4.4-11.0 [facility] Blood erythrocytes count (nu mber/volume)Ordered By: Agustín Viramontes on 02-19-2023 RBC (Bld) [#/Vol] 4.68 10*6/uL 4.2-5.4 [facility] Blood hemoglobin measurement (mass/volume)Ordered By: Agustín Viramontes on 02-19-2023 Hemoglobin (Bld) [Mass/Vol] 11.0 g/dL 12.0-15. 0 [facility] Blood lymphocytes/100 leukoc ytesOrdered By: Agustín Viramontes on 02-19-2023 Lymphocytes/100 WBC (Bld) 8.4 % 19-41 [facility] Blood monocytes/100 leukocyt esOrdered By: Agustín Viramontes on 02-19-2023 Monocytes/100 WBC (Bld) 7.6 % 0-10 [facility] Blood platelet mean volumeOr dered By: Agustín Viramontes on 02-19-2023 Platelet mean volume (Bld) [Entitic vol] 10.0 fL 6.2-12.0 [facility] Determination of erythrocyte mean corpuscular volume (MCV)Ordered By: Agustín Viramontes on 02-19-2023 MCV (RBC) [Entitic vol] 78.0 fL 81-99 [facility] Hematocrit Auto (Bld) [Volum e fraction]Ordered By: Agustín Viramontes on 02-19-2023 Hematocrit (Bld) [Volume fraction] 36.5 % 37-47 [facility] Laboratory - Chemistry and C hemistry - challengeOrdered By: Agustín Viramontes on 02-19-2023 CO2 [Moles/Vol] 27.0 mmol/L 21.0-32.0 [facility] Urea nitrogen/Creatinine [Mass ratio] 32.4 mg/mg 10-20 [facility] Laboratory - Hematology and Cell countsOrdered By: Agustín Viramontes on 02-19-2023 Erythrocyte distribution width (RBC) [Entitic vol] 44.1 fL 35.1-43.9 [facility] Erythrocyte distribution width (RBC) [Ratio] 15.6 % 11.6-14.6 [facility] Immature granulocytes/100 WBC (Bld) 0.400 % 0.0-0.9 [facility] Comment on above: IG% - Immature Granu locytes (promyelocytes, myelocytes and metamyelocytes) > 1% indicates that a LEFT SHIFT is Present. MCH (RBC) [Entitic mass] 23.5 pg 27.0-32.0 [facility] Nucleated RBC/100 WBC (Bld) [Ratio] 0 % 0-5 [facility] MCHC Auto (RBC) [Mass/Vol]Or dered By: Agustín Viramontes on 02-19-2023 MCHC (RBC) [Mass/Vol] 30.1 g/dL 32-36 [facility] No Panel InformationOrdered By: Agustín Viramontes on 02-19-2023 Estimated Creatinine Clearance Calc 48.30 ml/min [facility] Estimated GFR (MDRD) Amer 104 mL/min >60 [facility] Comment on above: GFR Calc Estimated GFR (MDRD) Non-Af Amer 86 mL/min >60 [facility] Comment on above: Non- GFR Calc Platelets bldOrdered By: Angel Viramontes on 02-19-2023 Platelets (Bld) [#/Vol] 329 10*3/uL 150-450 [facility] Serum or plasma calcium shruthi urement (mass/volume)Ordered By: Agustín Viramontes on 02-19-2023 Calcium [Mass/Vol] 8.9 mg/dL 8.5-10.1 [facility] Serum or plasma creatinine m easurement (mass/volume)Ordered By: Agustín Viramontes on 02-19-2023 Creatinine [Mass/Vol] 0.71 mg/dL 0.55-1.02 [facility] Comment on above: The validity of the calculated GFR & GFRAA in patients over 70 years has not been determined. Clinical correlation is essential. Serum or plasma urea nitroge n measurement (mass/volume)Ordered By: Agustín Viramontes on 02-19-2023 Urea nitrogen [Mass/Vol] 23 mg/dL 7-18 [facility] Thin prep Papanicolaou smear with manual screeningOrdered By: Agustín Viramontes on 02-19-2023 Thin prep Papanicolaou smear with manual screening 6 -15 [facility] Gram stain for investigation of transfusion reactionOrdered By: Agustín Viramontes on 02-18-2023 Microscopic observation Gram stain Nom (Unsp spec) [facility] Microbial respiratory cultur eOrdered By: Agustín Viramontes on 02-18-2023 Bacteria identified Respiratory culture Nom (Unsp spec) [facility] No Panel InformationOrdered By: Agustín Viramontes on 02-18-2023 Streptococcus pneumoniae Antigen (M [facility] Urine Legionella pneumophila antigen detectionOrdered By: Agustín Viramontes on 02-18-2023 L. pneumophila Ag Ql (U) [facility] Absolute lymphocyte countOrd ered By: Silvia Spangler on 02-17-2023 Lymphocytes Auto (Unsp spec) [#/Vol] 1.18 10*3/uL 0.83-4.51 [facility] Basophil percentageOrdered B y: Agustín Viramontes on 02-17-2023 Basophil percentage 2.4 mg/dL 2.5-4.9 [facility] Basophil percentageOrdered B y: Silvia Spangler on 02-17-2023 Basophils/100 WBC (Bld) 0.3 % 0-1 [facility] Chloride [Moles/Vol] 106 mmol/L 98-107 [facility] Eosinophils/100 WBC (Bld) 1.4 % 0-5 [facility] Glucose [Mass/Vol] 174 mg/dL 74-106 [facility] Comment on above: Fasting Glucose resu lt greater than or equal to 126 mg/dL suggests DIABETES MELLITUS per A.D.A. criteria. Neutrophils (Bld) [#/Vol] 9.9 10*3/uL 2.0-7.7 [facility] Neutrophils/100 WBC (Bld) 80.7 % 47-70 [facility] Potassium [Moles/Vol] 2.6 mmol/L 3.5-5.1 [facility] Comment on above: Critical Result(s) C alled at: 12:00:59 02/17/2023 by: Pepe Zamora to Soraya CHEATHAM (ER). Results read back by same. Sodium [Moles/Vol] 140 mmol/L 136-145 [facility] WBC (Bld) [#/Vol] 12.3 10*3/uL 4.4-11.0 [facility] Blood erythrocytes count (nu mber/volume)Ordered By: Silvia Spangler on 02-17-2023 RBC (Bld) [#/Vol] 5.47 10*6/uL 4.2-5.4 [facility] Blood hemoglobin measurement (mass/volume)Ordered By: Silvia Spangler on 02-17-2023 Hemoglobin (Bld) [Mass/Vol] 12.8 g/dL 12.0-15. 0 [facility] Blood lymphocytes/100 leukoc ytesOrdered By: Silvia Spangler on 02-17-2023 Lymphocytes/100 WBC (Bld) 9.6 % 19-41 [facility] Blood monocytes/100 leukocyt esOrdered By: Silvia Spangler on 02-17-2023 Monocytes/100 WBC (Bld) 7.5 % 0-10 [facility] Blood platelet mean volumeOr dered By: Silvia Spangler on 02-17-2023 Platelet mean volume (Bld) [Entitic vol] 9.9 fL 6.2-12.0 [facility] Determination of erythrocyte mean corpuscular volume (MCV)Ordered By: Silvia Spangler on 02-17-2023 MCV (RBC) [Entitic vol] 78.8 fL 81-99 [facility] Hematocrit Auto (Bld) [Volum e fraction]Ordered By: Silvia Spangler on 02-17-2023 Hematocrit (Bld) [Volume fraction] 43.1 % 37-47 [facility] Influenza virus A and B and SARS-CoV-2 (COVID-19) Ag panel - Upper respiratory specimOrdered By: Silvia Spangler on 02-17-2023 SARS-CoV-2 (COVID-19) RNA CATIE+probe Ql (Resp) [facility] Laboratory - Chemistry and C hemistry - challengeOrdered By: Agustín Viramontes on 02-17-2023 Magnesium [Mass/Vol] 2.1 mg/dL 1.6-2.6 [facility] Laboratory - Chemistry and C hemistry - challengeOrdered By: Silvia Spangler on 02-17-2023 CO2 [Moles/Vol] 29.0 mmol/L 21.0-32.0 [facility] Magnesium [Mass/Vol] 2.1 mg/dL 1.6-2.6 [facility] Urea nitrogen/Creatinine [Mass ratio] 13.2 mg/mg 10-20 [facility] Laboratory - Hematology and Cell countsOrdered By: Silvia Spangler on 02-17-2023 Erythrocyte distribution width (RBC) [Entitic vol] 42.7 fL 35.1-43.9 [facility] Erythrocyte distribution width (RBC) [Ratio] 15.1 % 11.6-14.6 [facility] Immature granulocytes/100 WBC (Bld) 0.500 % 0.0-0.9 [facility] Comment on above: IG% - Immature Granu locytes (promyelocytes, myelocytes and metamyelocytes) > 1% indicates that a LEFT SHIFT is Present. MCH (RBC) [Entitic mass] 23.4 pg 27.0-32.0 [facility] Nucleated RBC/100 WBC (Bld) [Ratio] 0 % 0-5 [facility] MCHC Auto (RBC) [Mass/Vol]Or dered By: Silvia Spangler on 02-17-2023 MCHC (RBC) [Mass/Vol] 29.7 g/dL 32-36 [facility] No Panel InformationOrdered By: Silvia Spangler on 02-17-2023 Troponin I High Sensitivity 70 pg/mL 3.0-54.0 [facility] Comment on above: Please Note: New [place] t Units and Gender Specific Reference Ranges. For more information see Policy Stat Procedure [place] High Sensitivity Troponin (TNIH) and attachments. Estimated Creatinine Clearance Calc 45.57 ml/min [facility] Estimated GFR (MDRD) Amer 66 mL/min >60 [facility] Comment on above: GFR Calc Estimated GFR (MDRD) Non-Af Amer 54 mL/min >60 [facility] Comment on above: Non- GFR Calc Platelets bldOrdered By: Alisha Spangler on 02-17-2023 Platelets (Bld) [#/Vol] 299 10*3/uL 150-450 [facility] Serum or plasma calcium shruthi urement (mass/volume)Ordered By: Silvia Spangler on 02-17-2023 Calcium [Mass/Vol] 9.0 mg/dL 8.5-10.1 [facility] Serum or plasma creatinine m easurement (mass/volume)Ordered By: Silvia Spangler on 02-17-2023 Creatinine [Mass/Vol] 1.06 mg/dL 0.55-1.02 [facility] Comment on above: The validity of the calculated GFR & GFRAA in patients over 70 years has not been determined. Clinical correlation is essential. Serum or plasma urea nitroge n measurement (mass/volume)Ordered By: Silvia Spangler on 02-17-2023 Urea nitrogen [Mass/Vol] 14 mg/dL 7-18 [facility] Thin prep Papanicolaou smear with manual screeningOrdered By: Silvia Spangler on 02-17-2023 Thin prep Papanicolaou smear with manual screening 5 5-15 [facility] XR CHEST 2V FRONTAL/LATon [facility] XR Chest PA and Lateralon IMPRESSION: No acute radiographic abnormality. Apparel Patternmaker: PSCB Transcribe Date/Time: Feb 10 2023 10:57A Dictated by : OSCAR HENDERSON MD This examination was interpreted and the report reviewed and electronically signed by: OSCAR HENDERSON MD on Feb 10 2023 10:58AM [facility] DIVISION OF RADIOLOGY * * [...] the thoracic spine. DIVISION OF RADIOLOGY Provider, [facility] - 02/10/2023 * * *Final Report* * [...] spine. IMPRESSION IMPRESSION: No acute radiographic abnormality. Apparel Patternmaker: PSCB Transcribe Date/Time: Feb 10 2023 10:57A Dictated by : OSCAR HENDERSON MD This examination was interpreted and the report reviewed and electronically signed by: OSCAR HENDERSON MD on Feb 10 2023 10:58AM EST [facility] Radiology Study observation (narrative) [facility] XR Chest PA and LateralOrder ed By: [facility] Provider on 02-10-2023 [facility] Anaerobic cultureOrdered By: Salomón Chambers on 11-29-2022 Bacteria identified Anaer cx Nom (Unsp spec) No anaerobic bacteria isolated. [facility] Bacteria identified Cx Nom ( Wound)Ordered By: Salomón Chambers on 11-29-2022 Wound Culture Haemophilus influenzae [facility] Gram stain for investigation of transfusion reactionOrdered By: Salomón Chambers on 11-29-2022 Microscopic observation Gram stain Nom (Unsp spec) [facility] COVID NAAT, UPPER RESPIRATOR Y, ROUTINEon 11-17-2022 SARS-CoV-2 (COVID-19) RNA CATIE+probe Ql (Resp) Not detected See comment [facility] ROUTINE FLU A/B + RSVon 10-28 FLUAV RNA CATIE+probe Ql (Unsp spec) Not detected Not Detected [facility] FLUBV RNA CATIE+probe Ql (Unsp spec) Not detected Not Detected [facility] RSV A RNA CATIE+probe Ql (Unsp spec) Not detected Not Detected [facility] XR CHEST 2V FRONTAL/LATon [facility] XR Chest PA and Lateralon IMPRESSION: No active disease in the chest. 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 DIVISION OF RADIOLOGY Provider, [facility] Fabian [facility] - 11/16/2022 * * *Final Report* [...] IMPRESSION: No active disease in the chest. 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 LEVOSCOLIOSIS. Apparel Patternmaker: ROSITA Transcribe Date/Time: Aug 24 2022 5:33P Dictated by : ROBIN KRAFT MD This examination was interpreted and the report reviewed and electronically signed by: ROBIN KRAFT MD on Aug 24 2022 5:36PM EST DIVISION OF RADIOLOGY * * *Final [...] at L4/L5 DIVISION OF RADIOLOGY Provider, Petrona Peralta [facility] - 08/24/2022 * * *Final Report* * [...] 1 ANTEROLISTHESIS OF L4 AND L5. LEVOSCOLIOSIS. Apparel Patternmaker: LoftwareMarcia Transcribe Date/Time: Aug 24 2022 5:33P Dictated by : ROBIN KRAFT MD This examination was interpreted and the report reviewed and electronically signed by: ROBIN KRAFT MD on Aug 24 2022 5:36PM EST [facility] XR Lumbar spine Views W flex ion and W extensionOrdered By: Ccf Provider on 08-24-2022 [facility] XR Lumbar spine Views W flex ion and W extensionon 08-22-2022 Radiology Study observation (narrative) [facility] No Panel InformationOrdered By: Nicola Friend on 08-15-2022 Miscellaneous Test See comment [facility] [place] above: TEST RESULTS LIMITSS tool CultureSalmonella/Shigella Screen Final reportResult 1No Salmonella or Shigella recovered.Campylobacter Culture Final reportResult 1No Campylobacter species isolated.E coli Shiga Toxin EIA Negative Negative [facility]. ORIGINAL REPORT ON FILE IN LAB CONTAINS ADDITIONAL TEST SITE INFORMATION. Giardia Antigen (CARITO) [facility] Stool Calprotectin 127 ug/g 0-120 [facility] Comment on above: Concentration Interp retation Follow-Up< 5 - 50 ug/g Normal None>50 -120 ug/g Borderline Re-evaluate in 4-6 weeks >120 ug/g Abnormal Repeat as clinically indicatedPerformed at: [address] [id number] Director: José Burch MD, Phone: [phone] Stool Pancreatic Elastase > 500 >200 [facility] Comment on above: Result Units: ug Gemini st./g Severe Pancreatic Insufficiency: <100 Moderate Pancreatic Insufficiency: 100 - 200 Normal: >200Performed at: [facility] [id number] Director: José Burch MD, Phone: [phone] Ova and parasitesOrdered By: Nicola Cowan on 08-15-2022 Ova and parasites identified LM Nom (Unsp spec) [facility] Stool gastrointestinal hemog lobin detection by immunologic methodOrdered By: Nicola Cowan on 08-15-2022 Lower GI hemoglobin IA Ql (Stl) [facility] Lower GI hemoglobin IA Ql (Stl) [facility] Stool lactoferrin detection by immunoassayOrdered By: Nicola Cowan on 08-15-2022 Lactoferrin IA Ql (Stl) [facility] Lactoferrin IA Ql (Stl) [facility] LIPID PANEL, NONFASTINGon Cholesterol [Mass/Vol] 183 mg/dL <200 mg/dL [facility] HDL Cholesterol, Nonfasting 46 mg/dL >39 mg/d L [facility] LDL Cholesterol, Nonfasting 92 mg/dL <100 mg/ dL [facility] LDL/HDL Ratio, Nonfasting 2.00 mg/dL <2.54 mg/d L [facility] Non HDL Cholesterol, Nonfasting 137 mg/dL High <130 mg/dL [facility] Total Chol/HDL Ratio, Nonfasting 3.98 mg/dL <5.10 mg/dL [facility] Triglycerides, Nonfasting 224 mg/dL High <150 mg/dL [facility] VLDL Cholesterol, Nonfasting 45 mg/dL High <30 mg/dL [facility] INR in Blood by Coagulation assayOrdered By: Nicola Cowan on 03-13-2022 INR Coag (Bld) [Relative time] 1.0 {INR} [facility] Laboratory - CoagulationOrde red By: Nicola Cowan on 03-13-2022 aPTT Coag (Bld) [Time] 26.5 s 24.1-36.2 [facility] PT Coag (PPP) [Time] 13.3 s 11.7-14.9 [facility] Platelets bldOrdered By: Ramin Cowan on 03-13-2022 Platelets (Bld) [#/Vol] 311 10*3/uL 150-450 [facility] Absolute lymphocyte countOrd ered By: Nicola Cowan on 12-08-2021 Lymphocytes Auto (Unsp spec) [#/Vol] 1.93 10*3/uL 0.83-4.51 [facility] Albumin Elph [Mass/Vol]Order ed By: Nicola Cowan on 12-08-2021 Albumin [Mass/Vol] 3.8 g/dL 2.9-4.4 [facility] Atypical perinuclear antineu trophil cytoplasmic antibodies measurementOrdered By: Nicola Cowan on 12-08-2021 Neutrophil cytoplasmic Ab.perinuclear.atypical IF (S) [Titer] <1:20 titer Neg:<1:20 [facility] Comment on above: The atypical pANCA p attern has been observed in asignificant percentage of patients with ulcerative colitis,primary sclerosing cholangitis and autoimmune hepatitis. Basophil percentageOrdered B y: Nicola Cowan on 12-08-2021 Ammonia (P) [Moles/Vol] 20.0 umol/L 11-32 [facility] Basophil percentage < 0.2 AI 0.0-0.9 [facility] Basophils/100 WBC (Bld) 0.8 % 0-1 [facility] Bilirubin [Mass/Vol] 0.50 mg/dL 0.20-1.00 [facility] Comment on above: For patients on eltr ombopag therapy, use of Dimension [place] TBIL is not recommended. Chloride [Moles/Vol] 110 mmol/L 98-107 [facility] Eosinophils/100 WBC (Bld) 1.8 % 0-5 [facility] Glucose [Mass/Vol] 99 mg/dL 74-106 [facility] Neutrophils (Bld) [#/Vol] 3.8 10*3/uL 2.0-7.7 [facility] Neutrophils/100 WBC (Bld) 58.6 % 47-70 [facility] Potassium [Moles/Vol] 3.7 mmol/L 3.5-5.1 [facility] Protein [Mass/Vol] 7.3 g/dL 6.4-8.2 [facility] Sodium [Moles/Vol] 142 mmol/L 136-145 [facility] WBC (Bld) [#/Vol] 6.5 10*3/uL 4.4-11.0 [facility] Blood erythrocytes count (nu mber/volume)Ordered By: Nicola Cowan on 12-08-2021 RBC (Bld) [#/Vol] 4.77 10*6/uL 4.2-5.4 [facility] Blood hemoglobin measurement (mass/volume)Ordered By: Nicola Cowan on 12-08-2021 Hemoglobin (Bld) [Mass/Vol] 12.2 g/dL 12.0-15. 0 [facility] Blood lymphocytes/100 leukoc ytesOrdered By: Nicola Cowan on 12-08-2021 Lymphocytes/100 WBC (Bld) 29.6 % 19-41 [facility] Blood monocytes/100 leukocyt esOrdered By: Nicola Cowan on 12-08-2021 Monocytes/100 WBC (Bld) 8.9 % 0-10 [facility] Blood platelet mean volumeOr dered By: Nicola Cowan on 12-08-2021 Platelet mean volume (Bld) [Entitic vol] 9.9 fL 6.2-12.0 [facility] Determination of erythrocyte mean corpuscular volume (MCV)Ordered By: Nicola Cowan on 12-08-2021 MCV (RBC) [Entitic vol] 84.3 fL 81-99 [facility] Erythrocyte sedimentation ra teOrdered By: Nicola Cowan on 12-08-2021 ESR (Bld) [Velocity] 21 mm/h 0-30 [facility] HIV 1 and HIV-2 antibody ass ay with HIV-1 p24 antigen detectionOrdered By: Nicola Cowan on 12-08-2021 HIV 1+2 Ab+HIV1 p24 Ag IA Ql Non-Reactive Nonreactive [facility] Hematocrit Auto (Bld) [Volum e fraction]Ordered By: Nicola Cowan on 12-08-2021 Hematocrit (Bld) [Volume fraction] 40.2 % 37-47 [facility] INR in Blood by Coagulation assayOrdered By: Nicola Cowan on 12-08-2021 INR Coag (Bld) [Relative time] 1.3 {INR} [facility] Interpretation of serum or p lasma protein pattern by immunofixation (narrative resultOrdered By: Nicola Cowan on 12-08-2021 Protein Fractions Immunofixation Enrique [Interp] See comment [facility] Comment on above: Result: Not Observed Laboratory - Chemistry and C hemistry - challengeOrdered By: Nicola Cowan on 12-08-2021 ALP [Catalytic activity/Vol] 142 U/L 45-117 [facility] ALT [Catalytic activity/Vol] 23 U/L 13-56 [facility] CO2 [Moles/Vol] 26.0 mmol/L 21.0-32.0 [facility] Urea nitrogen/Creatinine [Mass ratio] 17.9 mg/mg 10-20 [facility] Laboratory - Chemistry and C hemistry - challengeon 12-08-2021 Globulin (S) [Mass/Vol] 3.6 g/dL 2.2-4.2 [facility] Work Phone: Laboratory - CoagulationOrde red By: Nicola Cowan on 12-08-2021 PT Coag (PPP) [Time] 15.8 s 11.7-14.9 [facility] Laboratory - Hematology and Cell countsOrdered By: Nicola Cowan on 12-08-2021 Erythrocyte distribution width (RBC) [Entitic vol] 46.7 fL 35.1-43.9 [facility] Erythrocyte distribution width (RBC) [Ratio] 15.5 % 11.6-14.6 [facility] Immature granulocytes/100 WBC (Bld) 0.300 % 0.0-0.9 [facility] Comment on above: IG% - Immature Granu locytes (promyelocytes, myelocytes and metamyelocytes) > 1% indicates that a LEFT SHIFT is Present. MCH (RBC) [Entitic mass] 25.6 pg 27.0-32.0 [facility] Nucleated RBC/100 WBC (Bld) [Ratio] 0 % 0-5 [facility] MCHC Auto (RBC) [Mass/Vol]Or dered By: Nicola Cowan on 12-08-2021 MCHC (RBC) [Mass/Vol] 30.3 g/dL 32-36 [facility] No Panel InformationOrdered By: Nicola Cowan on 12-08-2021 Addendum Document Comment . [facility] Comment on above: Protein electrophore sis scan will follow via computer,mail, or automotive power electronics engineer delivery. Centromere B Antibody <0.2 AI 0.0-0.9 [facility] Ceruloplasmin 29.4 mg/dL 19.0-39.0 [facility] Endomysial IgA Antibody Negative Negative [facility] Estimated GFR (MDRD) Amer 80 mL/min >60 [facility] Comment on above: GFR Calc Estimated GFR (MDRD) Non-Af Amer 66 mL/min >60 [facility] Comment on above: Non- GFR Calc Haptoglobin 245 mg/dL 37-355 [facility] Comment on above: Performed at: [address] [id number] Director: Benson Barajas PhD, Phone: [phone] at: [facility] [id number] Director: José Burch MD, Phone: [phone] Hepatitis A IgM Antibody Negative Negative [facility] Hepatitis B Core IgM Antibody Negative Negative [facility] Hepatitis C Antibody (EIA) <0.1 s/co ratio 0.0- 0.9 [facility] Hepatitis C Antibody Comment Comment . [facility] Comment on above: NegativeNot infected with HCV, unless recent infection issuspected or other evidence exists to indicate HCVinfection. Immunoglobulin E 5 IU/mL 6-495 [facility] RIP SAW OPERATOR Antibody <0.2 AI 0.0-0.9 [facility] Platelets bldOrdered By: Ramin Cowan on 12-08-2021 Platelets (Bld) [#/Vol] 321 10*3/uL 150-450 [facility] Serum DNA double strand anti body assay (units/volume)Ordered By: Nicola Cowan on 12-08-2021 DNA double strand Ab Qn (S) [IU]/mL 0-9 [facility] Comment on above: Negative <5 Equivoca l 5 - 9 Positive >9 Serum IgA measurement (units /volume)on 12-08-2021 IgA Qn (S) 288 mg/dL 87-352 [facility] Work Phone: Comment on above: Performed at: [place] [id number] Director: Benson Barajas PhD, Phone: [phone] Serum Viktoria-1 antibody assay (u nits/volume)Ordered By: Nicola Cowan on 12-08-2021 Viktoria-1 extractable nuclear Ab Qn (S) <0.2 AI 0.0-0.9 [facility] Serum Scl-70 extractable nuc lear antibody assay (units/volume)Ordered By: Nicola Cowan on 12-08-2021 SCL-70 extractable nuclear Ab Qn (S) <0.2 AI 0.0-0.9 [facility] Serum Egrmain extractable nucl ear antibody detectionOrdered By: Nicola Cowan on 12-08-2021 Germain extractable nuclear Ab Ql (S) <0.2 AI 0.0-0.9 [facility] Serum [id number] measu rement by electrophoresisOrdered By: Nicola Cowan on 12-08-2021 Alpha 1 globulin Elph [Mass/Vol] 0.3 g/dL 0.0-0.4 [facility] Alpha 1 globulin Elph [Mass/Vol] 0.9 g/dL 0.4-1.0 [facility] Serum classic neutrophil cyt oplasmic antibody assay (units/volume)Ordered By: Nicola Cowan on 12-08-2021 Neutrophil cytoplasmic Ab.classic Qn (S) Comment titer Neg:<1:20 [facility] Comment on above: Results are Indeterm inate. Serum globulin measurement ( mass/volume)Ordered By: Nicola Cowan on 12-08-2021 Globulin (S) [Mass/Vol] 3.1 g/dL 2.2-3.9 [facility] Serum mitochondria antibody detectionOrdered By: Nicola Cowan on 12-08-2021 Mitochondria Ab Ql (S) <20.0 Units 0.0-20.0 [facility] Comment on above: Negative 0.0 - 20.0 Equivocal 20.1 - 24.9 Positive >24.9Mitochondrial (M2) Antibodies are found in 90-96% ofpatients with primary biliary cirrhosis.Performed at: [address] [id number] Director: Benson Barajas PhD, Phone: [phone] Serum or plasma C reactive p rotein measurement (mass/volume)Ordered By: Nicola Cowan on 12-08-2021 CRP [Mass/Vol] 6.59 mg/L 0.0-3.0 [facility] Comment on above: C-Reactive Protein ( CRP) provides useful information for thediagnosis, therapy and monitoring of inflammatory processesand associated diseases. For the evaluation of Relative Riskfor Cardiovascular Disease, a High Sensitivity CRP (HSCRP)should be ordered. Serum or plasma IgA measurem ent (mass/volume)Ordered By: Nicola Cowan on 12-08-2021 IgA [Mass/Vol] 280 mg/dL 87-352 [facility] Serum or plasma IgG measurem ent (mass/volume)Ordered By: Nicola Cowan on 12-08-2021 IgG [Mass/Vol] 694 mg/dL [phone] [facility] Serum or plasma IgM measurem ent (mass/volume)Ordered By: Nicola Cowan on 12-08-2021 IgM [Mass/Vol] 77 mg/dL 26-217 [facility] Serum or plasma actin IgG an tibody assay (units/volume)Ordered By: Nicola Cowan on 12-08-2021 Actin IgG Qn 3 Units 0-19 [facility] Comment on above: Negative 0 - 19 Weak positive 20 - 30 Moderate to strong positive >30 Actin Antibodies are found in 52-85% of patients with autoimmune hepatitis or chronic active hepatitis and in 22% of patients with primary biliary cirrhosis. Serum or plasma albumin shruthi urement (mass/volume)Ordered By: Nicola Cowan on 12-08-2021 Albumin [Mass/Vol] 3.7 g/dL 3.2-5.0 [facility] Serum or plasma albumin/glob ulin mass ratioOrdered By: Nicola Cowan on 12-08-2021 Albumin/Globulin [Mass ratio] 1.0 {ratio} 0.9-2.4 [facility] Serum or plasma angiotensin converting enzyme measurement (enzymatic activity/volume)Ordered By: Nicola Cowan on 12-08-2021 Angiotensin converting enzyme [Catalytic activity/Vol] 71 U/L 1482 [facility] Serum or plasma beta globuli n measurement by electrophoresis (mass/volume)Ordered By: Nicola Cowan on 12-08-2021 Beta globulin Elph [Mass/Vol] 1.2 g/dL 0.7-1.3 [facility] Serum or plasma calcium shruthi urement (mass/volume)Ordered By: Nicola Cowan on 12-08-2021 Calcium [Mass/Vol] 8.9 mg/dL 8.5-10.1 [facility] Serum or plasma creatinine m easurement (mass/volume)Ordered By: Nicola Cowan on 12-08-2021 Creatinine [Mass/Vol] 0.89 mg/dL 0.55-1.02 [facility] Comment on above: The validity of the calculated GFR & GFRAA in patients over 70 years has not been determined. Clinical correlation is essential. Serum or plasma ferritin dustin surement (mass/volume)Ordered By: Nicola Cowan on 12-08-2021 Ferritin [Mass/Vol] 14 ng/mL 8-252 [facility] Serum or plasma gamma globul in measurement by electrophoresis (mass/volume)Ordered By: Nicola Cowan on 12-08-2021 Gamma globulin Elph [Mass/Vol] 0.6 g/dL 0.4-1.8 [facility] Serum or plasma hepatitis B virus surface antigen detection by immunoassayOrdered By: Nicola Cowan on 12-08-2021 HBV surface Ag IA Ql Negative Negative [facility] Serum or plasma immunoelectr ophoresis interpretation (nominal result)Ordered By: Nicola Cowan on 12-08-2021 Interpretation IEP [Interp] Comment . [facility] Comment on above: No monoclonality det ected. Serum or plasma urea nitroge n measurement (mass/volume)Ordered By: Nicola Cowan on 12-08-2021 Urea nitrogen [Mass/Vol] 16 mg/dL 7-18 [facility] Serum perinuclear neutrophil cytoplasmic antibody titer by immunofluorescenceOrdered By: Nicola Cowan on 12-08-2021 Neutrophil cytoplasmic Ab.perinuclear IF (S) [Titer] <1:20 titer Neg:<1:20 [facility] Comment on above: The presence of posi tive fluorescence exhibiting P-ANCA orC-ANCA patterns alone is not specific for the diagnosis ofWegener's Granulomatosis (WG) or microscopic polyangiitis.Decisions about treatment should not be based solely onANCA IFA results. The [employer] ANCA Group Consensusrecommends follow up testing of positive sera with both TX-3 and MPO-ANCA enzyme immunoassays. As many as 5% serumsamples are positive only by EIA. Ref. AM J Clin [id number];111:507-513. Serum tissue transglutaminas e IgA antibody assay (units/volume)Ordered By: Nicola Cowan on 12-08-2021 tTG IgA Qn (S) <2 U/mL 0-3 [facility] Comment on above: Negative 0 - 3 Weak Positive 4 - 10 Positive >10 Tissue Transglutaminase (tTG) has been identified as the endomysial antigen. Studies have demonstr- ated that endomysial IgA antibodies have over 99% specificity for gluten sensitive enteropathy. Thin prep Papanicolaou smear with manual screeningOrdered By: Nicola Cowan on 12-08-2021 Thin prep Papanicolaou smear with manual screening 16 U/L 15-37 [facility] Thin prep Papanicolaou smear with manual screening 6 5-15 [facility] Thin prep Papanicolaou smear with manual screening 238 U/L 84-246 [facility] Thin prep Papanicolaou smear with manual screening 1.3 0.7-1.7 [facility] Thin prep Papanicolaou smear with manual screening 125 ug/dL 80-158 [facility] Comment on above: Detection Limit = 5 Total protein bloodOrdered B y: Nicola Friend on 12-08-2021 Protein [Mass/Vol] 6.9 g/dL 6.0-8.5 [facility] CBC W Auto Differential pane l (Bld)on 11-21-2021 Basophils/100 WBC (Bld) 0.9 % [facility] Eosinophils/100 WBC (Bld) 1.7 % 1 - 3 % [facility] Erythrocyte distribution width (RBC) [Ratio] 15 % 11.7 - 15.0 % [facility] Hematocrit (Bld) [Volume fraction] 42.2 % Abnormal 33 - 42 % [facility] Hemoglobin (Bld) [Mass/Vol] 13.1 g/dL 12 - 16 g/dL [facility] IgA [Mass/Vol] 0.500 mg/dL [facility] Lymphocytes, Absolute 1.61 [facility] Lymphocytes/100 WBC (Bld) 25.4 % [facility] MCH 25.9 pG Abnormal 27 - 34 pG [facility] MCHC 31 % Abnormal 32 - 36 % [facility] MCV (RBC) [Entitic vol] 83.6 fL 80 - 100 fL [facility] Monocytes/100 WBC (Bld) 9.6 % [facility] MPV 9.9 % 7.3 - 11.1 % [facility] NEUTROPHILS ABSOLUTE 3.9 k/uL 1.4 - 7 .0 k/uL [facility] Neutrophils/100 WBC (Bld) 61.9 % [facility] Nucleated RBC (Bld) [#/Vol] 0 10*3/uL [facility] Platelets (Bld) [#/Vol] 289 10*3/uL 150 - 379 k/uL [facility] RBC (Bld) [#/Vol] 5.05 10*6/uL 4.2 - 5.4 M/uL [facility] RDW-SD 45.4 [facility] WBC (Bld) [#/Vol] 6.4 10*3/uL 4.0 - 11.0 K/uL [facility] Absolute lymphocyte counton 11-18-2021 Lymphocytes Auto (Unsp spec) [#/Vol] 1.61 10*3/uL 0.83-4.51 [facility] Work Phone: Basophil percentageon 2021 Basophils/100 WBC (Bld) 0.9 % 0-1 [facility] Work Phone: Bilirubin [Mass/Vol] 0.50 mg/dL 0.20-1.00 [facility] Work Phone: Comment on above: For patients on eltr ombopag therapy, use of Dimension [place] TBIL is not recommended. Chloride [Moles/Vol] 110 mmol/L 98-107 [facility] Work Phone: Eosinophils/100 WBC (Bld) 1.7 % 0-5 [facility] Work Phone: Glucose [Mass/Vol] 102 mg/dL 74-106 [facility] Work Phone: Comment on above: Fasting Glucose resu lt from 100 to 125 mg/dL suggests IMPAIRED HOMEOSTASIS per A.D.A. criteria. Neutrophils (Bld) [#/Vol] 3.9 10*3/uL 2.0-7.7 [facility] Work Phone: Neutrophils/100 WBC (Bld) 61.9 % 47-70 [facility] Work Phone: Potassium [Moles/Vol] 3.7 mmol/L 3.5-5.1 [facility] Work Phone: Protein [Mass/Vol] 6.9 g/dL 6.4-8.2 [facility] Work Phone: Sodium [Moles/Vol] 144 mmol/L 136-145 [facility] Work Phone: WBC (Bld) [#/Vol] 6.4 10*3/uL 4.4-11.0 [facility] Work Phone: Blood erythrocytes count (nu mber/volume)on 11-18-2021 RBC (Bld) [#/Vol] 5.05 10*6/uL 4.2-5.4 [facility] Work Phone: [phone] Blood hemoglobin measurement (mass/volume)on 11-18-2021 Hemoglobin (Bld) [Mass/Vol] 13.1 g/dL 12.0-15. 0 [facility] Work Phone: Blood lymphocytes/100 leukoc yteson 11-18-2021 Lymphocytes/100 WBC (Bld) 25.4 % 19-41 [facility] Work Phone: Blood monocytes/100 leukocyt eson 11-18-2021 Monocytes/100 WBC (Bld) 9.6 % 0-10 [facility] Work Phone: Blood platelet mean volumeon 11-18-2021 Platelet mean volume (Bld) [Entitic vol] 9.9 fL 6.2-12.0 [facility] Work Phone: Determination of erythrocyte mean corpuscular volume (MCV)on 11-18-2021 MCV (RBC) [Entitic vol] 83.6 fL 81-99 [facility] Work Phone: Hematocrit Auto (Bld) [Volum e fraction]on 11-18-2021 Hematocrit (Bld) [Volume fraction] 42.2 % 37-47 [facility] Work Phone: [phone] Laboratory - Chemistry and C hemistry - challengeon 11-18-2021 ALP [Catalytic activity/Vol] 153 U/L 45-117 [facility] Work Phone: ALT [Catalytic activity/Vol] 31 U/L 13-56 [facility] Work Phone: CO2 [Moles/Vol] 29.0 mmol/L 21.0-32.0 [facility] Work Phone: [phone] Free T4 [Mass/Vol] 1.12 ng/dL 0.76-1.46 [facility] Work Phone: Globulin (S) [Mass/Vol] 3.5 g/dL 2.2-4.2 [facility] Work Phone: Urea nitrogen/Creatinine [Mass ratio] 15.7 mg/mg 10-20 [facility] Work Phone: Laboratory - Hematology and Cell countson 11-18-2021 Erythrocyte distribution width (RBC) [Entitic vol] 45.4 fL 35[facility]1-[facility].9 [facility] Work Phone: Erythrocyte distribution width (RBC) [Ratio] 15.0 % 11.6-14.6 [facility] Work Phone: Immature granulocytes/100 WBC (Bld) 0.500 % 0.0-0.9 [facility] Work Phone: Comment on above: IG% - Immature Granu locytes (promyelocytes, myelocytes and metamyelocytes) > 1% indicates that a LEFT SHIFT is Present. MCH (RBC) [Entitic mass] 25.9 pg 27.0-32.0 [facility] Work Phone: Nucleated RBC/100 WBC (Bld) [Ratio] 0 % 0-5 [facility] Work Phone: MCHC Auto (RBC) [Mass/Vol]on 11-18-2021 MCHC (RBC) [Mass/Vol] 31.0 g/dL 32-36 [facility] Work Phone: No Panel Informationon 11-18 Estimated GFR (MDRD) Amer 80 mL/min >60 [facility] Work Phone: Comment on above: GFR Calc Estimated GFR (MDRD) Non-Af Amer 66 mL/min >60 [facility] Work Phone: Comment on above: Non- GFR Calc Thyroid Stimulating Hormone (TSH) 4.48 uIU/mL 0.358-3.74 [facility] Work Phone: Platelets bldon 11-18-2021 Platelets (Bld) [#/Vol] 289 10*3/uL 150-450 [facility] Work Phone: Serum or plasma albumin shruthi urement (mass/volume)on 11-18-2021 Albumin [Mass/Vol] 3.4 g/dL 3.2-5.0 [facility] Work Phone: Serum or plasma albumin/glob ulin mass ratioon 11-18-2021 Albumin/Globulin [Mass ratio] 1.0 {ratio} 0.9-2.4 [facility] Work Phone: Serum or plasma calcium shruthi urement (mass/volume)on 11-18-2021 Calcium [Mass/Vol] 8.5 mg/dL 8.5-10.1 [facility] Work Phone: Serum or plasma creatinine m easurement (mass/volume)on 11-18-2021 Creatinine [Mass/Vol] 0.89 mg/dL 0.55-1.02 [facility] Work Phone: Comment on above: The validity of the calculated GFR & GFRAA in patients over 70 years has not been determined. Clinical correlation is essential. Serum or plasma urea nitroge n measurement (mass/volume)on 11-18-2021 Urea nitrogen [Mass/Vol] 14 mg/dL 7-18 [facility] Work Phone: Thin prep Papanicolaou smear with manual screeningon 11-18-2021 Thin prep Papanicolaou smear with manual screening 26 U/L 15-37 [facility] Work Phone: Thin prep Papanicolaou smear with manual screening 5 5-15 [facility] Work Phone: US DVT LOWER RTon 10-13-2021 [facility] XR TIBIA FIBULA 2V AP/LAT RI GHTon 10-11-2021 [facility] XR Tibia and Fibula - right AP and Lateralon 10-11-2021 IMPRESSION: No radiographic evidence of acute osseous injury Apparel Patternmaker: ROSITA Transcribe Date/Time: Oct 11 2021 11:26A Dictated by : SONIA GREEN MD This examination was interpreted and the report reviewed and electronically signed by: SONIA GREEN MD on Oct 11 2021 11:27AM [facility] DIVISION OF RADIOLOGY * * [...] compartmental osteophyte formation. DIVISION OF RADIOLOGY Provider, [facility] - 10/11/2021 * * *Final Report* * [...] No radiographic evidence of acute osseous injury Apparel Patternmaker: [facility] Transcribe Date/Time: Oct 11 2021 11:26A Dictated by : SONIA GREEN MD This examination was interpreted and the report reviewed and electronically signed by: SONIA GREEN MD on Oct 11 2021 11:27AM [facility]ative[facility] Fibula - right AP and LateralOrdered By: [facility] Provider on 10-11-2021 [facility] Absolute lymphocyte counton 09-17-2021 Lymphocytes Auto (Unsp spec) [#/Vol] 1.48 10*3/uL 0.83-4.51 [facility] Work Phone: Basophil percentageon 2021 Basophils/100 WBC (Bld) 0.7 % 0-1 [facility] Work Phone: Bilirubin [Mass/Vol] 0.40 mg/dL 0.20-1.00 [facility] Work Phone: Comment on above: For patients on eltr ombopag therapy, use of Dimension [place] TBIL is not recommended. Chloride [Moles/Vol] 111 mmol/L 98-107 [facility] Work Phone: Eosinophils/100 WBC (Bld) 3.5 % 0-5 [facility] Work Phone: Glucose [Mass/Vol] 98 mg/dL 74-106 [facility] Work Phone: Neutrophils (Bld) [#/Vol] 3.1 10*3/uL 2.0-7.7 [facility] Work Phone: Neutrophils/100 WBC (Bld) 56.8 % 47-70 [facility] Work Phone: Potassium [Moles/Vol] 3.8 mmol/L 3.5-5.1 [facility] Work Phone: Protein [Mass/Vol] 5.9 g/dL 6.4-8.2 [facility] Work Phone: Sodium [Moles/Vol] 141 mmol/L 136-145 [facility] Work Phone: WBC (Bld) [#/Vol] 5.5 10*3/uL 4.4-11.0 [facility] Work Phone: Blood erythrocytes count (nu mber/volume)on 09-17-2021 RBC (Bld) [#/Vol] 4.48 10*6/uL 4.2-5.4 [facility] Work Phone: Blood hemoglobin measurement (mass/volume)on 09-17-2021 Hemoglobin (Bld) [Mass/Vol] 11.4 g/dL 12.0-15. 0 [facility] Work Phone: Blood lymphocytes/100 leukoc yteson 09-17-2021 Lymphocytes/100 WBC (Bld) 27.0 % 19-41 [facility] Work Phone: Blood monocytes/100 leukocyt eson 09-17-2021 Monocytes/100 WBC (Bld) 11.5 % 0-10 [facility] Work Phone: Blood platelet mean volumeon 09-17-2021 Platelet mean volume (Bld) [Entitic vol] 10.6 fL 6.2-12.0 [facility] Work Phone: [phone] Determination of erythrocyte mean corpuscular volume (MCV)on 09-17-2021 MCV (RBC) [Entitic vol] 85.9 fL 81-99 [facility] Work Phone: Hematocrit Auto (Bld) [Volum e fraction]on 09-17-2021 Hematocrit (Bld) [Volume fraction] 38.5 % 37-47 [facility] Work Phone: [phone] Laboratory - Chemistry and C hemistry - challengeon 09-17-2021 ALP [Catalytic activity/Vol] 133 U/L 45-117 [facility] Work Phone: ALT [Catalytic activity/Vol] 26 U/L 13-56 [facility] Work Phone: CO2 [Moles/Vol] 26.0 mmol/L 21.0-32.0 [facility] Work Phone: [phone] Globulin (S) [Mass/Vol] 3.2 g/dL 2.2-4.2 [facility] Work Phone: [phone] Urea nitrogen/Creatinine [Mass ratio] 16.2 mg/mg 10-20 [facility] Work Phone: Laboratory - Hematology and Cell countson 09-17-2021 Erythrocyte distribution width (RBC) [Entitic vol] 44.5 fL 35.1-43.9 [facility] Work Phone: [phone] Erythrocyte distribution width (RBC) [Ratio] 14.2 % 11.6-14.6 [facility] Work Phone: Immature granulocytes/100 WBC (Bld) 0.500 % 0.0-0.9 [facility] Work Phone: [phone] Comment on above: IG% - Immature Granu locytes (promyelocytes, myelocytes and metamyelocytes) > 1% indicates that a LEFT SHIFT is Present. MCH (RBC) [Entitic mass] 25.4 pg 27.0-32.0 [facility] Work Phone: Nucleated RBC/100 WBC (Bld) [Ratio] 0 % 0-5 [facility] Work Phone: MCHC Auto (RBC) [Mass/Vol]on 09-17-2021 MCHC (RBC) [Mass/Vol] 29.6 g/dL 32-36 [facility] Work Phone: No Panel Informationon 09-17 Estimated Creatinine Clearance Calc 61.26 ml/min [facility] Work Phone: Estimated GFR (MDRD) Amer 91 mL/min >60 [facility] Work Phone: Comment on above: GFR Calc Estimated GFR (MDRD) Non-Af Amer 75 mL/min >60 [facility] Work Phone: Comment on above: Non- GFR Calc Platelets bldon 09-17-2021 Platelets (Bld) [#/Vol] 264 10*3/uL 150-450 [facility] Work Phone: Serum or plasma albumin shruthi urement (mass/volume)on 09-17-2021 Albumin [Mass/Vol] 2.7 g/dL 3.2-5.0 [facility] Work Phone: Serum or plasma albumin/glob ulin mass ratioon 09-17-2021 Albumin/Globulin [Mass ratio] 0.8 {ratio} 0.9-2.4 [facility] Work Phone: Serum or plasma calcium shruthi urement (mass/volume)on 09-17-2021 Calcium [Mass/Vol] 8.3 mg/dL 8.5-10.1 [facility] Work Phone: Serum or plasma creatinine m easurement (mass/volume)on 09-17-2021 Creatinine [Mass/Vol] 0.80 mg/dL 0.55-1.02 [facility] Work Phone: [phone] Comment on above: The validity of the calculated GFR & GFRAA in patients over 70 years has not been determined. Clinical correlation is essential. Serum or plasma urea nitroge n measurement (mass/volume)on 09-17-2021 Urea nitrogen [Mass/Vol] 13 mg/dL 7-18 [facility] Work Phone: [phone] Thin prep Papanicolaou smear with manual screeningon 09-17-2021 Thin prep Papanicolaou smear with manual screening 17 U/L 15-37 [facility] Work Phone: Thin prep Papanicolaou smear with manual screening 4 5-15 [facility] Work Phone: [phone] Laboratory - Chemistry and C hemistry - challengeon 09-16-2021 Magnesium [Mass/Vol] 2.0 mg/dL 1.6-2.6 [facility] Work Phone: [phone] Absolute lymphocyte counton 09-15-2021 Lymphocytes Auto (Unsp spec) [#/Vol] 1.85 10*3/uL 0.83-4.51 [facility] Work Phone: Basophil percentageon 2021 Basophils/100 WBC (Bld) 0.6 % 0-1 [facility] Work Phone: [phone] Chloride [Moles/Vol] 109 mmol/L 98-107 [facility] Work Phone: [phone] Eosinophils/100 WBC (Bld) 1.3 % 0-5 [facility] Work Phone: Glucose [Mass/Vol] 106 mg/dL 74-106 [facility] Work Phone: [phone] Comment on above: Fasting Glucose resu lt from 100 to 125 mg/dL suggests IMPAIRED HOMEOSTASIS per A.D.A. criteria. Neutrophils (Bld) [#/Vol] 5.7 10*3/uL 2.0-7.7 [facility] Work Phone: [phone] Neutrophils/100 WBC (Bld) 66.6 % 47-70 [facility] Work Phone: Potassium [Moles/Vol] 3.8 mmol/L 3.5-5.1 [facility] Work Phone: Sodium [Moles/Vol] 142 mmol/L 136-145 [facility] Work Phone: WBC (Bld) [#/Vol] 8.6 10*3/uL 4.4-11.0 [facility] Work Phone: Blood erythrocytes count (nu mber/volume)on 09-15-2021 RBC (Bld) [#/Vol] 5.26 10*6/uL 4.2-5.4 [facility] Work Phone: [phone] Blood hemoglobin measurement (mass/volume)on 09-15-2021 Hemoglobin (Bld) [Mass/Vol] 13.5 g/dL 12.0-15. 0 [facility] Work Phone: Blood lymphocytes/100 leukoc yteson 09-15-2021 Lymphocytes/100 WBC (Bld) 21.6 % 19-41 [facility] Work Phone: Blood monocytes/100 leukocyt eson 09-15-2021 Monocytes/100 WBC (Bld) 9.5 % 0-10 [facility] Work Phone: Blood platelet mean volumeon 09-15-2021 Platelet mean volume (Bld) [Entitic vol] 10.4 fL 6.2-12.0 [facility] Work Phone: [phone] Determination of erythrocyte mean corpuscular volume (MCV)on 09-15-2021 MCV (RBC) [Entitic vol] 82.9 fL 81-99 [facility] Work Phone: Hematocrit Auto (Bld) [Volum e fraction]on 09-15-2021 Hematocrit (Bld) [Volume fraction] 43.6 % 37-47 [facility] Work Phone: [phone] Laboratory - Chemistry and C hemistry - challengeon 09-15-2021 CO2 [Moles/Vol] 26.0 mmol/L 21.0-32.0 [facility] Work Phone: Urea nitrogen/Creatinine [Mass ratio] 16.9 mg/mg 10-20 [facility] Work Phone: Laboratory - Hematology and Cell countson 09-15-2021 Erythrocyte distribution width (RBC) [Entitic vol] 42.6 fL 35.1-43.9 [facility] Work Phone: Erythrocyte distribution width (RBC) [Ratio] 14.1 % 11.6-14.6 [facility] Work Phone: Immature granulocytes/100 WBC (Bld) 0.400 % 0.0-0.9 [facility] Work Phone: Comment on above: IG% - Immature Granu locytes (promyelocytes, myelocytes and metamyelocytes) > 1% indicates that a LEFT SHIFT is Present. MCH (RBC) [Entitic mass] 25.7 pg 27.0-32.0 [facility] Work Phone: Nucleated RBC/100 WBC (Bld) [Ratio] 0 % 0-5 [facility] Work Phone: MCHC Auto (RBC) [Mass/Vol]on 09-15-2021 MCHC (RBC) [Mass/Vol] 31.0 g/dL 32-36 [facility] Work Phone: No Panel Informationon 09-15 Estimated Creatinine Clearance Calc 59.04 ml/min [facility] Work Phone: Estimated GFR (MDRD) Amer 88 mL/min >60 [facility] Work Phone: Comment on above: GFR Calc Estimated GFR (MDRD) Non-Af Amer 72 mL/min >60 [facility] Work Phone: Comment on above: Non- GFR Calc Platelets bldon 09-15-2021 Platelets (Bld) [#/Vol] 329 10*3/uL 150-450 [facility] Work Phone: Serum or plasma calcium shruthi urement (mass/volume)on 09-15-2021 Calcium [Mass/Vol] 9.1 mg/dL 8.5-10.1 [facility] Work Phone: [phone] Serum or plasma creatinine m easurement (mass/volume)on 09-15-2021 Creatinine [Mass/Vol] 0.83 mg/dL 0.55-1.02 [facility]: [phone] Comment on above: The validity of the calculated GFR & GFRAA in patients over 70 years has not been determined. Clinical correlation is essential. Serum or plasma urea nitroge n measurement (mass/volume)on 09-15-2021 Urea nitrogen [Mass/Vol] 14 mg/dL 7-18 [facility] Work Phone: Thin prep Papanicolaou smear with manual screeningon 09-15-2021 Thin prep Papanicolaou smear with manual screening 7 5-15 [facility] Work Phone: Absolute lymphocyte counton 06-20-2021 Lymphocytes Auto (Unsp spec) [#/Vol] 1.23 10*3/uL 0.83-4.51 [facility] Work Phone: Basophil percentageon 2021 Basophils/100 WBC (Bld) 0.7 % 0-1 [facility] Work Phone: Eosinophils/100 WBC (Bld) 2.5 % 0-5 [facility] Work Phone: Neutrophils (Bld) [#/Vol] 3.6 10*3/uL 2.0-7.7 [facility] Work Phone: Neutrophils/100 WBC (Bld) 64.5 % 47-70 [facility] Work Phone: WBC (Bld) [#/Vol] 5.6 10*3/uL 4.4-11.0 [facility] Work Phone: Blood erythrocytes count (nu mber/volume)on 06-20-2021 RBC (Bld) [#/Vol] 4.33 10*6/uL 4.2-5.4 [facility] Work Phone: Blood hemoglobin measurement (mass/volume)on 06-20-2021 Hemoglobin (Bld) [Mass/Vol] 11.3 g/dL 12.0-15. 0 [facility] Work Phone: Blood lymphocytes/100 leukoc yteson 06-20-2021 Lymphocytes/100 WBC (Bld) 22.2 % 19-41 [facility] Work Phone: Blood monocytes/100 leukocyt eson 06-20-2021 Monocytes/100 WBC (Bld) 9.7 % 0-10 [facility] Work Phone: Blood platelet mean volumeon 06-20-2021 Platelet mean volume (Bld) [Entitic vol] 10.1 fL 6.2-12.0 [facility] Work Phone: Determination of erythrocyte mean corpuscular volume (MCV)on 06-20-2021 MCV (RBC) [Entitic vol] 84.1 fL 81-99 [facility] Work Phone: Hematocrit Auto (Bld) [Volum e fraction]on 06-20-2021 Hematocrit (Bld) [Volume fraction] 36.4 % 37-47 [facility] Work Phone: INR in Blood by Coagulation assayon 06-20-2021 INR Coag (Bld) [Relative time] 1.3 {INR} [facility] Work Phone: Laboratory - Coagulationon 0 06-20-2021 PT Coag (PPP) [Time] 16.1 s 11.7-14.9 [facility] Work Phone: Laboratory - Hematology and Cell countson 06-20-2021 Erythrocyte distribution width (RBC) [Entitic vol] 44.1 fL 35.1-43.9 [facility] Work Phone: Erythrocyte distribution width (RBC) [Ratio] 14.4 % 11.6-14.6 [facility] Work Phone: Immature granulocytes/100 WBC (Bld) 0.400 % 0.0-0.9 [facility] Work Phone: Comment on above: IG% - Immature Granu locytes (promyelocytes, myelocytes and metamyelocytes) > 1% indicates that a LEFT SHIFT is Present. MCH (RBC) [Entitic mass] 26.1 pg 27.0-32.0 [facility] Work Phone: Nucleated RBC/100 WBC (Bld) [Ratio] 0 % 0-5 [facility] Work Phone: MCHC Auto (RBC) [Mass/Vol]on 06-20-2021 MCHC (RBC) [Mass/Vol] 31.0 g/dL 32-36 [facility] Work Phone: Platelets bldon 06-20-2021 Platelets (Bld) [#/Vol] 272 10*3/uL 150-450 [facility] Work Phone: Absolute lymphocyte counton 06-19-2021 Lymphocytes Auto (Unsp spec) [#/Vol] 1.62 10*3/uL 0.83-4.51 [facility] Work Phone: Basophil percentageon 2021 Basophils/100 WBC (Bld) 0.5 % 0-1 [facility] Work Phone: Bilirubin [Mass/Vol] 0.50 mg/dL 0.20-1.00 [facility] Work Phone: Comment on above: For patients on eltr ombopag therapy, use of Dimension [place] TBIL is not recommended. Chloride [Moles/Vol] 110 mmol/L 98-107 [facility] Work Phone: Eosinophils/100 WBC (Bld) 1.4 % 0-5 [facility] Work Phone: Glucose [Mass/Vol] 111 mg/dL 74-106 [facility] Work Phone: Comment on above: Fasting Glucose resu lt from 100 to 125 mg/dL suggests IMPAIRED HOMEOSTASIS per A.D.A. criteria. Neutrophils (Bld) [#/Vol] 5.5 10*3/uL 2.0-7.7 [facility] Work Phone: Neutrophils/100 WBC (Bld) 67.3 % 47-70 [facility] Work Phone: Potassium [Moles/Vol] 3.6 mmol/L 3.5-5.1 [facility] Work [facility]: Protein [Mass/Vol] 7.0 g/dL 6.4-8.2 [facility] Work Phone: Sodium [Moles/Vol] 139 mmol/L 136-145 [facility] Work Phone: WBC (Bld) [#/Vol] 8.1 10*3/uL 4.4-11.0 [facility] Work Phone: Basophil percentage 0-5 SEEN /hpf 0-5 [facility] Work Phone: Bilirubin Test strip Ql (U)o n 06-19-2021 Bilirubin Ql (U) Negative Negative [facility] Work Phone: Blood erythrocytes count (nu mber/volume)on 06-19-2021 RBC (Bld) [#/Vol] 4.78 10*6/uL 4.2-5.4 [facility] Work Phone: Blood hemoglobin measurement (mass/volume)on 06-19-2021 Hemoglobin (Bld) [Mass/Vol] 12.4 g/dL 12.0-15. 0 [facility] Work Phone: Blood lymphocytes/100 leukoc yteson 06-19-2021 Lymphocytes/100 WBC (Bld) 19.9 % 19-41 [facility] Work Phone: Blood monocytes/100 leukocyt eson 06-19-2021 Monocytes/100 WBC (Bld) 10.5 % 0-10 [facility] Work Phone: Blood platelet mean volumeon 06-19-2021 Platelet mean volume (Bld) [Entitic vol] 10.3 fL 6.2-12.0 [facility] Work Phone: Determination of erythrocyte mean corpuscular volume (MCV)on 06-19-2021 MCV (RBC) [Entitic vol] 82.0 fL 81-99 [facility] Work Phone: Hematocrit Auto (Bld) [Volum e fraction]on 06-19-2021 Hematocrit (Bld) [Volume fraction] 39.2 % 37-47 [facility] Work Phone: [phone] INR in Blood by Coagulation assayon 06-19-2021 INR Coag (Bld) [Relative time] 3.7 {INR} [facility] Work Phone: [phone] Ketones Test strip Ql (U)on 06-19-2021 Ketones Ql (U) Negative Negative [facility] Work Phone: [phone] Laboratory - Chemistry and C hemistry - challengeon 06-19-2021 ALP [Catalytic activity/Vol] 153 U/L 45-117 [facility] Work Phone: [phone] ALT [Catalytic activity/Vol] 34 U/L 13-56 [facility] Work Phone: CO2 [Moles/Vol] 24.0 mmol/L 21.0-32.0 [facility] Work Phone: [phone] Globulin (S) [Mass/Vol] 3.7 g/dL 2.2-4.2 [facility] Work Phone: [phone] Urea nitrogen/Creatinine [Mass ratio] 24.3 mg/mg 10-20 [facility] Work Phone: [phone] Laboratory - Coagulationon 0 06-19-2021 PT Coag (PPP) [Time] 36.1 s 11.7-14.9 [facility] Work Phone: [phone] Laboratory - Hematology and Cell countson 06-19-2021 Erythrocyte distribution width (RBC) [Entitic vol] 42.5 fL 35.1-43.9 [facility] Work Phone: [phone] Erythrocyte distribution width (RBC) [Ratio] 14.5 % 11.6-14.6 [facility] Work Phone: Immature granulocytes/100 WBC (Bld) 0.400 % 0.0-0.9 [facility] Work Phone: Comment on above: IG% - Immature Granu locytes (promyelocytes, myelocytes and metamyelocytes) > 1% indicates that a LEFT SHIFT is Present. MCH (RBC) [Entitic mass] 25.9 pg 27.0-32.0 [facility] Work Phone: Nucleated RBC/100 WBC (Bld) [Ratio] 0 % 0-5 [facility] Work Phone: MCHC Auto (RBC) [Mass/Vol]on 06-19-2021 MCHC (RBC) [Mass/Vol] 31.6 g/dL 32-36 [facility] Work Phone: Mucus LM Ql (Urine sed)on Mucus Ql (Urine sed) 0 SEEN /hpf [facility] Work Phone: Nitrite Test strip Ql (U)on 06-19-2021 Nitrite Ql (U) Negative Negative [facility] Work Phone: No Panel Informationon 06-19 Estimated Creatinine Clearance Calc 54.45 ml/min [facility] Work Phone: Estimated GFR (MDRD) Amer 79 mL/min >60 [facility] Work Phone: Comment on above: GFR Calc Estimated GFR (MDRD) Non-Af Amer 65 mL/min >60 [facility] Work Phone: Comment on above: Non- GFR Calc Platelets bldon 06-19-2021 Platelets (Bld) [#/Vol] 309 10*3/uL 150-450 [facility] Work Phone: Protein Test strip Ql (U)on 06-19-2021 Protein Ql (U) 15 mg/dl Negative [facility] Work Phone: Serum or plasma albumin shruthi urement (mass/volume)on 06-19-2021 Albumin [Mass/Vol] 3.3 g/dL 3.2-5.0 [facility] Work Phone: Serum or plasma albumin/glob ulin mass ratioon 06-19-2021 Albumin/Globulin [Mass ratio] 0.9 {ratio} 0.9-2.4 [facility] Work Phone: Serum or plasma calcium shruthi urement (mass/volume)on 06-19-2021 Calcium [Mass/Vol] 8.6 mg/dL 8.5-10.1 [facility] Work Phone: Serum or plasma creatinine m easurement (mass/volume)on 06-19-2021 Creatinine [Mass/Vol] 0.90 mg/dL 0.55-1.02 [facility] Work Phone: Comment on above: The validity of the calculated GFR & GFRAA in patients over 70 years has not been determined. Clinical correlation is essential. Serum or plasma urea nitroge n measurement (mass/volume)on 06-19-2021 Urea nitrogen [Mass/Vol] 22 mg/dL 7-18 [facility] Work Phone: Squamous epithelial cells de tection in urine sediment by light microscopyon 06-19-2021 Epithelial cells.squamous LM Ql (Urine sed) 0-5 SEEN /hpf 5-10 [facility] Work Phone: Thin prep Papanicolaou smear with manual screeningon 06-19-2021 Thin prep Papanicolaou smear with manual screening 27 U/L 15-37 [facility] Work Phone: Thin prep Papanicolaou smear with manual screening 5 5-15 [facility] Work Phone: Urine blood detectionon 05-28 RBC Ql (U) 25 /ul Negative [facility] Work Phone: RBC Ql (U) 0 SEEN /hpf 0-5 [facility] Work Phone: Urine clarityon 06-19-2021 Clarity (U) Clear Clear [facility] Work Phone: Urine color determinationon 06-19-2021 Color (U) Yellow Yellow [facility] Work Phone: Urine glucose detectionon Glucose Ql (U) Normal mg/dl Normal [facility] Work Phone: Urine leukocyte esterase det ection by dipstickon 06-19-2021 Leukocyte esterase Test strip Ql (U) 100 /ul Negative [facility] Work Phone: Urine pHon 06-19-2021 pH (U) 5.0 [pH] 5.0 - 8.0 [facility] Work Phone: Urine sediment bacteria coun t by microscopy (number/high power field)on 06-19-2021 Bacteria LM.HPF (Urine sed) [#/Area] 1 /[HPF] None Seen [facility] Work Phone: Urine specific gravity measu rementon 06-19-2021 Specific gravity (U) [Rel density] 1.030 1.002-1.030 [facility] Work Phone: Urobilinogen Auto test strip Ql (U)on 06-19-2021 Urobilinogen Ql (U) Normal mg/dl Normal [facility] Work Phone: XR Ankle - left AP and Later al and obliqueon 08-03-2020 IMPRESSION: Soft tissue swelling with no radiographic evidence of acute osseous injury. Apparel Patternmaker: ROSITA Transcribe Date/Time: Aug 03 2020 9:59A Dictated by : SONIA GREEN MD This examination was interpreted and the report reviewed and electronically signed by: SONIA GREEN MD on Aug 03 2020 10:00AM [facility] DIVISION OF RADIOLOGY * * [...] Soft tissue swelling. DIVISION [facility]OLOGY [facility] * * *Final Report* * [...] no radiographic evidence of acute osseous injury. Apparel Patternmaker[facility] Transcribe Date/Time: Aug 03 2020 9:59A Dictated by : SONIA GREEN MD This examination was interpreted and the report reviewed and electronically signed by: SONIA GREEN MD on Aug 03 2020 10:00AM EST [facility] Radiology Study observation (narrative) [facility] XR Ankle - left AP and Later al and obliqueOrdered By: Ccf Provider on 08-03-2020 [facility] XR Shoulder - left 3 Viewson 01-07-2020 IMPRESSION: Degenerative changes as discussed Apparel Patternmaker[facility] Transcribe Date/Time: Jan 07 2020 9:32A Dictated by : YOEL ESTRADA DO This examination was interpreted and the report reviewed and electronically signed by: YOEL ESTRADA DO on Jan 07 2020 9:34AM [facility] DIVISION OF RADIOLOGY * * [...] dislocations are seen. DIVISION OF RADIOLOGY Provider, Petrona Cardenas - 01/07/2020 * * *Final Report* * [...] seen. IMPRESSION IMPRESSION: Degenerative changes as discussed Apparel Patternmaker: P[facility] Transcribe Date/Time: Jan 07 2020 9:32A Dictated by : YOEL ESTRADA DO This examination was interpreted and the report reviewed and electronically signed by: YOEL ESTRADA DO on Jan 07 2020 9:34AM EST [facility] Radiology Study observation (narrative) [facility] XR Shoulder - left 3 ViewsOr dered By: Ccf Provider on 01-07-2020 [facility] Basic Metabolic Panlon 07-30 Anion gap molar conc 11 mmol/L Normal 9-18 [facility] Comment on above: Performed By: #### C BC, BMP ####[facility] [place], [place] [phone] Calcium mass conc 9.1 mg/dL Normal 8.5-10.5 [facility] Comment on above: Performed By: #### C BC, BMP ####[facility] [place], [place] [phone] Chloride molar conc 104 mmol/L Normal 98-110 [facility] Comment on above: Performed By: #### C BC, BMP ####[place] [phone] CO2 molar conc 25 mmol/L Normal 23-32 [facility] Comment on above: Performed By: #### C BC, BMP ####[place] [phone] Creatinine mass conc 0.73 mg/dL Normal 0.70-1.40 [facility] Comment on above: Performed By: #### C BC, BMP ####[place] [phone] eGFR- Amer. >60 Normal >60 [facility] Comment on above: Performed By: #### C BC, BMP ####[place] [phone] GFR/1.73 sq M predicted among non-blacks MDRD vol rate/area (S/P/Bld) mL/min/{1.73_m2} Normal >60 [facility] Comment on above: Performed By: #### C BC, BMP ####[place] [phone] Glucose mass conc 91 mg/dL Normal 65-100 [facility] Comment on above: Performed By: #### C BC, BMP ####[place] [phone] Potassium molar conc 4.4 mmol/L Normal 3.5-5.0 [facility] Comment on above: Result Comment: Revi ewed Performed By: #### C BC, BMP ####[place] [phone] Sodium molar conc 140 mmol/L Normal 132-148 [facility] Comment on above: Performed By: #### C BC, BMP ####[place] [phone] Urea nitrogen mass conc 20 mg/dL Normal 8-25 [facility] Comment on above: Performed By: #### C BC, BMP ####[facility] [place], [place] [phone] CASE MANAGEMon 07-30-2018 CASE MANAGEM HNO ID: [id number] Author: Mary Ann (Rn) CHAPARRITA Cox Service: Care Management Author Type: [...] this admission? No HANDOFF COMMUNICATION: PCP per [place] TRANSPORTATION ARRANGEMENTS: Car family Discharge Information Row Name Admission (Current) from 07/29/2018 in [facility] Medically cleared for discharge. Confirmed SOC with [facility] within 24-48 hours of discharge. Pt amenable to discharge plan. Family to transport. SIGNATURE: Mary Ann Cox RN PATIENT NAME: Romain Bailey DATE: July 30, 2018 TIME: 2:05 PM PAGER/CONTACT #: [phone] Normal [facility] CBCon 07-30-2018 Erythrocyte distribution width Ratio (RBC) 13.2 % Normal 11.5-15.0 [facility] Comment on above: Performed By: #### C BC, BMP ####[facility] [place], [place] [phone] Hematocrit Volume Fraction (Bld) 40.5 % Normal 36.0-46.0 [facility] Comment on above: Performed By: #### C BC, BMP ####[address] [phone] Hemoglobin mass conc (Bld) 13.2 g/dL Normal 11.5-15.5 [facility] Comment on above: Performed By: #### C BC, BMP ####[place] [phone] MCH Entitic mass (RBC) 28.8 pG Normal 26.0-34.0 [facility] Comment on above: Performed By: #### C BC, BMP ####[place] [phone] MCHC mass conc (RBC) 32.6 g/dL Normal 30.5-36.0 [facility] Comment on above: Performed By: #### C BC, BMP ####[place] [phone] MCV Entitic volume (RBC) 88.4 fL Normal 80.0-100.0 [facility] Comment on above: Performed By: #### C BC, BMP ####[place] [phone] Platelet mean volume Entitic volume (Bld) 10.0 fL Normal 9.0-12.7 [facility] Comment on above: Performed By: #### C WALTER, BMP ####[place] [phone] Platelets #/vol (Bld) 211 10*3/uL Normal 150-400 [facility] Comment on above: Performed By: #### C WALTER, BMP ####[place] [phone] RBC #/vol (Bld) 4.58 10*6/uL Normal 3.90-5.20 [facility] Comment on above: Performed By: #### C BC, BMP ####[place] [phone] WBC #/vol (Bld) 5.52 10*3/uL Normal 3.70-11.00 [facility] Comment on above: Performed By: #### C BC, BMP ####[place] [phone] NURSING PROGon 07-30-2018 Protein mass conc HNO ID: [id number] Author: Marii StrongRn) CHAPARRITA Melgar Service: Nursing Author Type: Registered Nurse Type: Nursing Progress Note Filed: 07/30/2018 3:17 PM Note Text: Nursing Progress Note Patient Name: Romain Bailey Patient Location: Daily Note: Pt AOx3. C/o slight PARK. Brace on LLE. Speech clear AND coherent. This note was completed by: Marii Melgar RN [facility] Protein mass conc HNO ID: [id number] Author: Marii Melgar RN Service: Nursing Author Type: Registered Nurse Type: Nursing Progress Note Filed: 07/30/2018 3:15 PM Note Text: Nursing Progress Note Patient Name: Romain Bailey Patient Location: Daily Note: Pt discharged. Discharge, follow-up AND meds due instructions given AND explained. Prescription given AND explained. This note was completed by: Marii Melagr RN [facility] THERAPY NTon 07-30-2018 THERAPY NT HNO ID: [id number] Author: Bharti Tee Service: Physical Therapy Author Type: Physical Therapist Type: Therapy (PT/OT/Speech/Resp) Filed: 07/30/2018 11:08 AM Note Text: Physical Therapy Evaluation TIA r/o CVA SERVICE DATE: 07/30/2018 SERVICE TIME: 0943 to 1006 ROOM: [place] [address] ([facility]) Recommended Discharge Disposition: Home Anticipated Discharge Needs: Physical Assist at Home Physical Assist at Home for: Cleaning;Laundry;Shop ping;Transportation Recommended Discharge Equipment: Cane PT Recommendations to [...] Diagnosis: Reduced mobility-other Interventions Provided: Evaluation;Gait Training (78869) $ Evaluation-Low (15883) Billed Units: 1 unit Gait Training (52594) Treatment Minutes: 8 1 unit Skilled Intervention(s): [...] Patient Lives With: Self/Alone(alone in colonial house: century home) Assistance Available: PRN(family in area) Entry To Home: Stairs;With Rail Number Of Stairs Into Home: 4 Number Of Stairs To Bed/Bath: 18 Stairs to Bed/Bath with: Bilateral Rail Tub/Shower Type: tub bath, no shower Laundry: basement Equipment Owned: Orthosis(left AFO) Prior Functional Level: Within Functional Limits Prior Functional Level Comments: 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 OBJECTIVE: Mini Cog Score: 5 (07/29/18 7154) CURRENT FUNCTIONAL STATUS: Current Functional Mobility Assist [...] DATE: July 30, 2018 TIME: 11:05 AM [facility] ALLIED HEALTH 07-29-2018 ALLIED HEALTH HNO ID: [id number] Author: Myriam Moreau (Rt) Service: Radiology Author Type: Gang Sawyer Type: Allied Health Filed: 07/29/2018 12:09 PM [...] RT Osmar July 29, 2018 12:[address] [facility] HNO ID: [id number] Author: MIGDALIA Mcarthur (Ct) Service: Radiology Author Type: Clinical Gang Sawyer Type: Allied Health Filed: 07/29/2018 12:03 AM [...] , CTA Brain and CTA Neck SIGNATURE: MIGDALIA Mcarthur PATIENT NAME: Romain Bailey DATE: July 29, 2018 TIME: 12:03 AM Normal [facility] APTTon 07-29-2018 aPTT Coag time (Bld) 25.9 s Normal 23.0-32.4 [facility] Comment on above: Result Comment: Unfr [...] laboratory APTT reagent in use throughout the [facility]. Performed By: #### C BC, PT, PTT, BMP ####[facility] [address] [place] [phone] Basic Metabolic Panlon 07-29 Anion gap molar conc 13 mmol/L Normal 9-18 [facility] Comment on above: Performed By: #### C BC, BMP #### [address] #### HBA1C, LIPB #### [facility] [address] [phone] Calcium mass conc 8.9 mg/dL Normal 8.5-10.5 [facility] Comment on above: Performed By: #### C BC, BMP #### [place] [phone] #### HBA1C, LIPB #### [facility] [address] [phone] Chloride molar conc 104 mmol/L Normal 98-110 [facility] Comment on above: Performed By: #### C BC, BMP #### [place] [phone] #### HBA1C, LIPB #### [facility] [address] [phone] CO2 molar conc 25 mmol/L Normal 23-32 [facility] Comment on above: Performed By: #### C BC, BMP #### [place] [phone] #### HBA1C, LIPB #### [facility] [address] [phone] Creatinine mass conc 0.62 mg/dL Low 0.70-1.40 [facility] Comment on above: Performed By: #### C BC, BMP #### [place] [phone] #### HBA1C, LIPB #### [facility] [address] [place], [place] [phone] eGFR- Amer. >60 Normal >60 [facility] Comment on above: Performed By: #### C BC, BMP #### [place] [phone] #### HBA1C, LIPB #### [facility] [address] [phone] GFR/1.73 sq M predicted among non-blacks MDRD vol rate/area (S/P/Bld) mL/min/{1.73_m2} Normal >60 [facility] Comment on above: Performed By: #### C BC, BMP #### [place] [phone] #### HBA1C, LIPB #### [facility] [address] [phone] Glucose mass conc 88 mg/dL Normal 65-100 [facility] Comment on above: Performed By: #### C BC, BMP #### [place] [phone] #### HBA1C, LIPB #### [facility] [address] [phone] Potassium molar conc 3.6 mmol/L Normal 3.5-5.0 [facility] Comment on above: Performed By: #### C BC, BMP #### [place] [phone] #### HBA1C, LIPB #### [facility] [address] [phone] Sodium molar conc 142 mmol/L Normal 132-148 [facility] Comment on above: Performed By: #### C BC, BMP #### [place] [phone] #### HBA1C, LIPB #### [facility] [address] [phone] Urea nitrogen mass conc 13 mg/dL Normal 8-25 [facility] Comment on above: Performed By: #### C BC, BMP #### [place] [phone] #### HBA1C, LIPB #### [facility] [address] [place] [phone] Anion gap molar conc 9 mmol/L Normal 9-18 [facility] Comment on above: Performed By: #### C BC, PT, PTT, BMP ####[facility] [address] [place] [address] Calcium mass conc 9.3 mg/dL Normal 8.5-10.2 [facility] Comment on above: Performed By: #### C BC, PT, PTT, BMP ####[facility] [address] [place] [address] Chloride molar conc 105 mmol/L Normal 97-105 [facility] Comment on above: Performed By: #### C BC, PT, PTT, BMP ####[facility] [address] [place] [address] CO2 molar conc 28 mmol/L Normal 22-30 [facility] Comment on above: Performed By: #### C BC, PT, PTT, BMP ####[facility] [address] [place] [address] Creatinine mass conc 0.69 mg/dL Normal 0.58-0.96 [facility] Comment on above: Performed By: #### C BC, PT, PTT, BMP ####[facility] [address] [place] [phone] eGFR- Amer. >60 Normal [facility] Comment on above: Performed By: #### C BC, PT, PTT, BMP ####[facility] [address] [place] [phone] GFR/1.73 sq M predicted among non-blacks MDRD vol rate/area (S/P/Bld) mL/min/{1.73_m2} Normal [facility] Comment on above: Result Comment: eGFR (Estimated [...] By: #### C BC, PT, PTT, BMP ####[facility] [address] [place] [phone] Glucose mass conc 81 mg/dL Normal 74-99 [facility] Comment on above: Result Comment: The [place] Diabetes Association (ADA) provides guidance for cutoff [...] Standards of Medical Care in Diabetes 2016, [place] Diabetes Association. Diabetes Care. 2016.39(Suppl 1). Performed By: #### C BC, PT, PTT, BMP ####[facility] [address] [place] [phone] Potassium molar conc 3.6 mmol/L Low 3.7-5.1 [facility] Comment on above: Performed By: #### C BC, PT, PTT, BMP ####[facility] [address] Sodium molar conc 142 mmol/L Normal 136-144 [facility] Comment on above: Performed By: #### C BC, PT, PTT, BMP ####[facility] [address]ce5734 [address] Urea nitrogen mass conc 17 mg/dL Normal 7-21 M [facility] Comment on above: Performed By: #### C BC, PT, PTT, BMP ####[facility] [address]pd9639 [address] CASE MGT INIT BREon 2018 CASE MGT INIT BRE HNO ID: [id number] Author: Mary Ann (Rn) CHAPARRITA Cox Service: Care Management Author Type: Registered Nurse Type: Care Mgt Initial Assessment Filed: 07/29/2018 4:28 PM Note Text: CARE MANAGEMENT: ASSESSMENT AND DISCHARGE PLAN SERVICE DATE: 07/29/2018 SERVICE TIME: 3:45 PM PRIMARY CARE PHYSICIAN: Erik Reynolds MD ADMISSION STATUS: Observation Needs Prior to Discharge: Home Care Order MEDICAL: Patient/Representativ e Stated Goals: To have reduction in symptoms Health Insurance: CR2 PLUS [employer] Medicare Health Issues Impacting Discharge Plan: Newly diagnosed migraine Last Admission Date: none Is this Within the Past 30 days? No Advance Directive: Current Advance Directive: None Drawer In Dobby Loom Attempted to Assist with AD Completion: Yes [...] in a Nursing Home Facility in the Past 30 days? 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 Contact: Extended Emergency Contact Information Primary [...] 0 I feel financially burdened by my ken-ja-avcugn expenses for my prescription medication: Disagree completely [...] 29, 2018 TIME: 3:45 PM PAGER/CONTACT #: [phone] Normal [facility] CBCon 07-29-2018 Erythrocyte distribution width Ratio (RBC) 13.0 % Normal 11.5-15.0 [facility] Comment on above: Performed By: #### C BC, BMP #### [phone] [place] [address] #### HBA1C, LIPB #### [place] [phone] Hematocrit Volume Fraction (Bld) 39.6 % Normal 36.0-46.0 [facility] Comment on above: Performed By: #### C BC, BMP #### [place] [phone] #### HBA1C, LIPB #### [place] [phone] Hemoglobin mass conc (Bld) 13.3 g/dL Normal 11.5-15.5 [facility] Comment on above: Performed By: #### C BC, BMP #### [place] [address] #### HBA1C, LIPB #### [place] [phone] MCH Entitic mass (RBC) 28.9 pG Normal 26.0-34.0 [facility] [place] Comment on above: Performed By: #### C BC, BMP #### [place] [phone] #### HBA1C, LIPB #### [place] [phone] MCHC mass conc (RBC) 33.6 g/dL Normal 30.5-36.0 [facility] Comment on above: Performed By: #### C BC, BMP #### [address] #### HBA1C, LIPB #### [place] [phone] MCV Entitic volume (RBC) 85.9 fL Normal 80.0-100.0 [facility] Comment on above: Performed By: #### C BC, BMP #### [place] [phone] #### HBA1C, LIPB #### [address] [place], [place] [address] Platelet mean volume Entitic volume (Bld) 9.9 fL Normal 9.0-12.7 [facility] Comment on above: Performed By: #### C BC, BMP #### [place] [phone] #### HBA1C, LIPB #### [place] [phone] Platelets #/vol (Bld) 205 10*3/uL Normal 150-400 [facility] [place] Comment on above: Performed By: #### C BC, BMP #### [place] [phone] #### HBA1C, LIPB #### [place] [phone] RBC #/vol (Bld) 4.61 10*6/uL Normal 3.90-5.20 [facility] Comment on above: Performed By: #### C BC, BMP #### [place] [phone] #### HBA1C, LIPB #### [place] [phone] WBC #/vol (Bld) 5.06 10*3/uL Normal 3.70-11.00 [facility] Comment on above: Performed By: #### C BC, BMP #### [place] [phone] #### HBA1C, LIPB #### [place] [phone] Erythrocyte distribution width Ratio (RBC) 13.2 % Normal 11.5-15.0 [facility] Comment on above: Performed By: #### C BC, PT, PTT, BMP ####[facility] [address] [place], [place] [phone] Hematocrit Volume Fraction (Bld) 42.4 % Normal 36.0-46.0 [facility] Comment on above: Performed By: #### C BC, PT, PTT, BMP ####[facility] [address] [place] [address] Hemoglobin mass conc (Bld) 14.1 g/dL Normal 11.5-15.5 [facility] Comment on above: Performed By: #### C BC, PT, PTT, BMP ####[facility] [address] [place] [address] MCH Entitic mass (RBC) 29.0 pG Normal 26.0-34.0 [facility] Comment on above: Performed By: #### C BC, PT, PTT, BMP ####[facility] [address] [place] [address] MCHC mass conc (RBC) 33.3 g/dL Normal 30.5-36.0 [facility] Comment on above: Performed By: #### C BC, PT, PTT, BMP ####[facility] [address] [place] [address] MCV Entitic volume (RBC) 87.1 fL Normal 80.0-100.0 [facility] Comment on above: Performed By: #### C BC, PT, PTT, BMP ####[facility] [address] [place] [address] Platelet mean volume Entitic volume (Bld) 9.9 fL Normal 9.0-12.7 [facility] Comment on above: Performed By: #### C BC, PT, PTT, BMP ####[facility] [address] [place] [address] Platelets #/vol (Bld) 236 10*3/uL Normal 150-400 [facility] Comment on above: Performed By: #### C BC, PT, PTT, BMP ####[facility] [address] [place] [address] RBC #/vol (Bld) 4.87 10*6/uL Normal 3.90-5.20 [facility] Comment on above: Performed By: #### C BC, PT, PTT, BMP ####[facility] [address] [place] [address] WBC #/vol (Bld) 6.61 10*3/uL Normal 3.70-11.00 [facility] Comment on above: Performed By: #### C BC, PT, PTT, BMP ####[facility] [address] [place] [phone] CONSULTon 07-29-2018 CONSULT HNO ID: [id number] Author: Nathalie Galvez Service: Neurology General Author Type: Physician Type: Consults Filed: 07/29/2018 10:38 AM Note Text: Patient seen and examined Chart reviewed Patient is 68 years old woman from [place] ,started having headache since as her migraine headache ,but on Sunday she felt clumsy on the right hand ,she was stuttering ,and felt imbalance while walking ,she didn't fall . Headache was still there severe throbbing with photophobia and phonophobia Previous admission to [place] in June with the same symptoms During today exam she has dysmetria on right finger to nose and right arm drift She was afraid to walk because of imbalance Recommend Stroke work up as ordered by medical team Aspirin statin for stroke prevention Migraine treatment with magnesium 500 mg daily as preventive b2 100 mg twice a day Normal [facility] CONSULT HNO ID: [id number] Author: Nathalie Galvez Service: Neurology General Author Type: Physician Type: Consults Filed: 07/29/2018 10:37 AM Note Text: INITIAL CONSULT NEURO STROKE SERVICE DATE: 07/29/2018 * PCP: Erik Reynolds MD REASON FOR STROKE EVALUATION: headache ,clumsiness Subjective HPI: Patient is 68 years old woman with migraine headache hypertension ,admitted because of stroke like symptoms with this episode of migraine presented to the hospital from [place] ED with c/o blurry vision, stuttering of [...] non-medical: Not on file Occupational History Occupation: [employer] 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 [employer]. 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 FAMILY HISTORY Problem Relation Age of Onset - None Mother from fall - Diabetes Father - Ischemic Heart Disease Father d. [place] - Ischemic Heart Disease Maternal Grandfather d. [place] while holding her at 4mo - Blindness [...] nostril once daily. Disp: 1 Bottle Rfl: 11 07/28/2018 at Unknown time cycloSPORINE (RESTASIS) 0.05 [...] EVERYDAY AT BEDTIME Disp: 30 tablet Rfl: 5 07/28/2018 at Unknown time benzonatate (TESSALON PERLES) 100 mg capsule Take 2 capsules by mouth three times daily as needed. Disp: 30 capsule Rfl: 0 07/28/2018 at Unknown time fluticasone-salmetero l (ADVAIR DISKUS) 100-50 mcg/dose dsdv Inhale 1 [...] as needed. Disp: 1 Inhaler Rfl: 5 07/28/2018 at Unknown time EPINEPHrine (AUVI-Q) 0.3 [...] by mouth three times daily as needed. fluticasone-salmetero l (ADVAIR DISKUS) 100-50 mcg/dose dsdv Inhale 1 [...] 18 SpO2 96% GENERAL: Awake/easily arousable. HEENT: Normocephalic/atrauma tic, no lymphadenopathy, thyroid non-tender, without palpable masses/nodules [...] Problems: * No resolved hospital problems. * Impression/Recommenda tions Romain Bailey is a 68 year old, [...] 29, 2018 TIME: 10:00 AM PAGER/CONTACT #: Normal [facility] CT BRAIN ATTACK WO IVCONon 0 07-29-2018 CT BRAIN ATTACK WO IVCON * * *Final Repo rt* * * DATE OF EXAM: Jul 28 2018 11:34PM [facility] 0[facility] - CT BRAIN ATTACK WO IVCON [...] Jamie Garcia on 07/28/2018 at 23:36. CR_1 Apparel Patternmaker: [employer] Transcribe Date/Time: Jul 28 2018 11:35P Dictated by : FRANCESCA MCKEON MD This examination was interpreted and the report reviewed and electronically signed by: FRANCESCA MCKEON MD on Jul 28 2018 11:39PM EST [id number] CRITICAL!! [facility] CTA HEAD W IVCONon 9 CTA HEAD W IVCON * * *Final Report* * * * * * SEE BOTTOM OF REPORT FOR ADDENDED TEXT * * * DATE OF EXAM: Jul 28 2018 11:47PM [facility] 0022 - CTA HEAD W IVCON / [...] the right ICA (series 4, image 297). Apparel Patternmaker: ROSITA Transcribe Date/Time: Jul 29 2018 1:01A Dictated by : FRANCESCA MCKEON MD This examination was interpreted and the report reviewed and electronically signed by: FRANCESCA MCKEON MD on Jul 29 2018 12:37AM EST This document has been addended by: FRANCESCA MCKEON MD on Jul 29 2018 1:09AM EST [id number] [facility] CTA NECK W IVCONon 9 CTA NECK W IVCON * * *Final Report* * * * * * SEE BOTTOM OF REPORT FOR ADDENDED TEXT * * * DATE OF EXAM: Jul 28 2018 11:47PM [facility] 0024 - CTA NECK W IVCON / [...] the right ICA (series 4, image 297). Apparel Patternmaker: [employer] Transcribe Date/Time: Jul 29 2018 1:01A Dictated by : FRANCESCA MCKEON MD This examination was interpreted and the report reviewed and electronically signed by: FRANCESCA MCKEON MD on Jul 29 2018 12:37AM EST This document has been addended by: FRANCESCA MCKEON MD on Jul 29 2018 1:09AM EST [id number] [facility] ECG COMPLETEon 07-29-2018 ECG COMPLETE NAME : ROMAIN BAILEY PID : [id number] : 1950 Gender : Female Race : ORD : [id number] Procedure Date : Jul 28 2018 23:04:19 Edit Date : Aug 05 2018 12:36:16 Diagnosis:NORMAL SINUS RHYTHM NORMAL ECG agree - EF Radha Confirmed by Denisse COOK, NA Ryan ([id number]), electronic news gathering editor SHAWN GARZA ([id number]) on 08/05/2018 12:32:26 PM Ventricular Rate : 60 BPM Atrial Rate : 60 BPM P-R Interval : 158 ms QRS Duration : 72 ms Q-T Interval : 462 ms QTC Calculation(Bezet) : 462 ms P [facility] : 91 degrees R [place] : 18 degrees T [facility] : 38 degrees Test Reason : Chest Pain Location : 1 : ER 2 Overread By : Denisse COOK MATTHEW D. Edited By : SHAWN GARZA Referred By : , Acquired by : , [facility] ED NOTEon 07-29-2018 ED NOTE HNO ID: [id number] Author: Riana StrongRn) CHAPARRITA Pappas Service: ? Author Type: Registered Nurse Type: ED Notes Filed: 07/29/2018 2:44 AM Note Text: report given to [facility] ED NOTE HNO ID: [id number] Author: Riana Pappas RN Service: ? Author Type: Registered Nurse Type: ED Notes Filed: 07/29/2018 2:10 AM Note Text: dr garcia in room to update pt on plan of care. [facility] ED NOTE HNO ID: [id number] Author: Riana Pappas RN Service: ? Author Type: Registered Nurse Type: ED Notes Filed: 07/28/2018 11:50 PM Note Text: Patient returned to the Emergency Department. [facility] ED NOTE HNO ID: [id number] Author: Riana (Rn) CHAPARRITA Pappas Service: ? Author Type: Registered Nurse Type: ED Notes Filed: 07/28/2018 11:33 PM Note Text: Patient transported to ct with Nurse and Tech. [facility] ED NOTE HNO ID: [id number] Author: Riana (Rn) CHAPARRITA Pappas Service: ? Author Type: Registered Nurse Type: ED Notes Filed: 07/29/2018 12:14 AM Note Text: pt made a stroke alert by dr. Garcia [facility] ED NOTE HNO ID: [id number] Author: Riana StrongRn) CHAPARRITA Pappas Service: ? Author Type: Registered Nurse Type: ED Notes Filed: 07/28/2018 11:20 PM Note Text: dr garcia at bedside to see pt [facility] ED NOTE HNO ID: [id number] Author: Antonia StrongRnRosie Hernandez RN Service: ? 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 Author [...] She has a history of hospitalization at [place] a month ago, when she was found [...] tibial area - PAST SURGICAL HISTORY OF [facility] - REMOVAL GALLBLADDER ~2003 Cholecystectomy laparoscopic - TOTAL ABDOM HYSTERECTOMY 1999 MAURICE/BSO-pain, no abnormal paps FAMILY HISTORY Problem Relation Age of Onset - None Mother from fall - Diabetes Father - Ischemic Heart Disease Father d. [place] - Ischemic Heart Disease Maternal Grandfather d. [place] while holding her at 4mo - Blindness [...] Negative. Neurological: Positive for headaches. Hematological: Negative. Psychiatric/Behaviora l: Negative. Physical Exam BP 160/72 Pulse 66 [...] DATE OF EXAM: Jul 28 2018 11:47PM [facility] 0022 - CTA HEAD W IVCON / [...] the right ICA (series 4, image 297). Apparel Patternmaker: [facility] Transcribe Date/Time: Jul 29 2018 [...] and extracranial circulations. Chronic left maxillary sinusitis. Apparel Patternmaker: [facility] Transcribe Date/Time: Jul 28 2018 [...] DATE OF EXAM: Jul 28 2018 11:47PM [facility] 0024 - CTA NECK W IVCON / [...] the right ICA (series 4, image 297). Apparel Patternmaker: [facility] Transcribe Date/Time: Jul 29 2018 [...] and extracranial circulations. Chronic left maxillary sinusitis. Apparel Patternmaker: [facility] Transcribe Date/Time: Jul 28 2018 [...] Jamie Garcia on 07/28/2018 at 23:36. CR_1 Apparel Patternmaker: [facility] Transcribe Date/Time: Jul 28 2018 11:35P Dictated by : FRANCESCA MCKEON MD This examination was interpreted and the report reviewed and electronically signed by: FRANCESCA MCKEON MD on Jul 28 2018 11:39PM EST A consult was requested and obtained from inside solar sales consultant(s) telestroke at [facility] Dr Viraj mackay. The inside solar sales consultant made the following conclusions/recommend ations: TPA not indicated, outside time window, history of recent diagnosis 2mm ICA aneurysm; admit to telemetry observation, neurology consult; will transfer to [place] to do this. The case was discussed [...] aneurysm also; will admit to observation at [place] to get neurology consult. The attending who evaluated and managed this patient was Jamie Garcia . Plan: The patient was transferred to [place] for observation telemetry, neurology consult Jamie Garcia MD Clinical Impressions as of Jul 29 210 Truncal ataxia Headache disorder MDM / Disposition / Plan MDM SIGNATURE: MD Jamie Garcia MD 07/29/18211 Normal [facility] HISTORY PHYSICALon 9 HISTORY PHYSICAL HNO ID: [id number] Author: Reilly Majano Service: Hospital Medicine Author [...] IBS who presented to the hospital from [place] ED with c/o blurry vision, stuttering of [...] dysarthria. ED Course: Upon arrival to the [place] ED her vitals were: BP 160/72 Pulse [...] severe headache. Subsequently she was transferred to [place] for further monitoring. PAST MEDICAL HISTORY Diagnosis Date - Arthropathy, unspecified, site unspecified - Asthma - Back pain - Colon polyps 2013 - Diverticulitis 2000 - Environmental allergies - GERD (gastroesophageal reflux disease) - Hyperlipidemia lifestyle controlled - Hypertension - IBS (irritable bowel syndrome) - Migraine - Obesity PAST SURGICAL HISTORY Procedure Laterality Date - COLONOSCOP W/ OR W/O [facility] SPEC 05/29/2018 Colonoscopy - COLONOSCOPY AND POLYPECTOMY 12/03/2013 tubular adenoma, hyperplastic polyp; repeat due in 5y - DEBRIDE SKIN AND SUBQ TISSU 05/15/07 Debridement infected moira cyst upper mid back - PAST SURGICAL HISTORY OF 1984 metal removed from right tibial area - PAST SURGICAL HISTORY OF [facility] - REMOVAL GALLBLADDER ~2003 Cholecystectomy laparoscopic - TOTAL ABDOM HYSTERECTOMY 1999 MAURICE/BSO-pain, no abnormal paps FAMILY HISTORY Problem Relation Age of Onset - None Mother from fall - Diabetes Father - Ischemic Heart Disease Father d. [place] - Ischemic Heart Disease Maternal Grandfather d. [place] while holding her at 4mo - Blindness [...] capsule Rfl: 0 07/28/2018 at Unknown time fluticasone-salmetero l (ADVAIR DISKUS) 100-50 mcg/dose dsdv Inhale 1 [...] hospital problems. * Medication and Non-Pharmacologic VTE Prophylaxis/Anticoagu lants Anticoagulant AND Antiplatelet Medications (From admission, onward) Start Dose Route Frequency Ordered Stop 07/29/18 0430 heparin 5,000 Units injection (Medical At Risk ) 5,000 Units SUBCUTANEOUS EVERY 12 HOURS 07/29/18 0406 -- 07/29/18 0415 vte non-pharmacologic prophylaxis - none indicated (ia,oh) VTE Prophylaxis: VTE prophylaxis appropriate Disposition: to be decided. Plan of care discussed with: Provider, RN, Patient SIGNATURE: Bairon Zapien MD PATIENT NAME: Romain Bailey DATE: July 29, 2018 TIME: 4:38 AM PAGER/CONTACT #: [id number] etx [id number] -- I have seen and evaluated the patient and discussed the case with the resident physician. I agree with the assessment and plan as documented in the resident?s note. 68 years old female with h/o HTN, HLD, asthma, GERD, migraine presented to [place] ED with complain of difficulty finding words, headache imbalance and blurry vision started around 1PM yesterday, which worsen around 10PM. Patient had similar presentation on 07/02 to [place] ED, work up did not reveal any strok but noted to have incidental finding of ICA 2mm aneurysm. Telestroke team notified. NIHHS-1. CT head show no acute intracranial process and CTA show no large vesses occlusion/stenosis. No tPA as risk outweight benefits. Impression is TIA vs migraine as patient had similar episode on 07/02/2018. [facility] No gross neurological deficits on examination. systolic murmurs noted in aortic/pulmonary and Tricuspid area. Impression: TIA, rule out stroke Plans: continue aspirin and high intensity statin Hb A1c, lipid panel EKG, ECHO, telemetry monitoring, neurocheck MRI brain Hold BP meds until MRI rule out acute stroke Neurology consult, speech/swallow consult Stroke Care path Reilly Majano MD Normal [facility] Hemoglobin A1con 07-29-2018 Hemoglobin A1c/Hemoglobin.total mass fraction (Bld) 105 mg/dL Normal [facility] Comment on above: Result Comment: eAG: (Estimated average glucose) is a calculated value from HgbA1c and is circulation sales representative of the average blood glucose level in the last 2-3 month period. Performed By: #### C BC, BMP #### [facility] [address] [id number] #### HBA1C, LIPB #### [facility] [address], [place] [address] Hemoglobin A1c/Hemoglobin.total mass fraction (Bld) 5.3 % Normal 4.3-5.6 [facility] Comment on above: Result Comment: Amer ican Diabetes Association guidelines indicate that patients with HgbA1c in the range 5.7-6.4% are at increased risk for development of diabetes, and intervention by lifestyle modification may be beneficial. HgbA1c greater or equal to 6.5% is considered diagnostic of diabetes. Performed By: #### C BC, BMP #### [place] [phone] #### HBA1C, LIPB #### [facility] [address] [address] [address] Lipid Panel, Basicon 019 Cholesterol in HDL mass conc 45 mg/dL Normal >39 [facility] Comment on above: Result Comment: 40-5 9 mg/dL, Acceptable >59 mg/dL, High: Negative risk factor for coronary heart disease <40 mg/dL, Low: Positive risk factor for coronary heart disease Performed By: #### C BC, BMP #### [place] [phone] #### HBA1C, LIPB #### [place] [phone] Cholesterol in LDL mass conc 95 mg/dL Normal <100 [facility] Comment on above: Result Comment: <100 mg/dL, Optimal 100-129 mg/dL, Near optimal/above optimal 130-159 mg/dL, Borderline high 160-189 mg/dL, High >189 mg/dL, Very high Secondary prevention optimal LDL Cholesterol levels are recommended to be < 70 mg/dL Performed By: #### C BC, BMP #### [place] [phone] #### HBA1C, LIPB #### [facility] [place] [address] [place] [phone] Cholesterol mass conc 150 mg/dL Normal <200 [facility] Comment on above: Result Comment: <200 mg/dL, Desirable 200-239 mg/dL, Borderline high >239 mg/dL, High Performed By: #### C BC, BMP #### [place] [phone] #### HBA1C, LIPB #### [facility] [address] [place] [phone] LDL:HDL Ratio 2.11 Normal <2.54 [facility] Comment on above: Result Comment: Steve sanders: 1. National Cholesterol Education Program ATP III Guideline At-A-Glance Quick Desk Reference: National Heart, Lung, and Blood [place]. National Institutes of Health. 2001: NIH Publication No. 01-3305. 2. An International Atherosclerosis Society position paper: global recommendations for the management of dyslipidemia: executive summary, Atherosclerosis. 2014: 232(2):410-413. Performed By: #### C BC, BMP #### [place] [address] #### HBA1C, LIPB #### [facility] [address] [phone] Non HDL Cholesterol 105 mg/dL Normal <130 [facility] Comment on above: Result Comment: <130 mg/dL, Optimal 130-159 mg/dL, Near optimal/above optimal 160-189 mg/dL, Borderline high 190-219 mg/dL, High >219 mg/dL, Very high Secondary prevention optimal non HDL Cholesterol levels are recommended to be < 100 mg/dL Performed By: #### C BC, BMP #### [place] [address] #### HBA1C, LIPB #### [facility] [address] [phone] TC:HDL Ratio 3.33 Normal <5.10 [facility] Comment on above: Performed By: #### C BC, BMP #### [place] [address] #### HBA1C, LIPB #### [facility] [address] [phone] Triglyceride mass conc 52 mg/dL Normal <150 [facility] Comment on above: Result Comment: <150 mg/dL, Normal 150-199 mg/dL, Borderline high 200-499 mg/dL, High >499 mg/dL, Very high Performed By: #### C BC, BMP #### [phone] #### HBA1C, LIPB #### [facility] [address] [place] [phone] VLDL Cholesterol 10 mg/dL Normal <30 [facility] Comment on above: Performed By: #### C BC, BMP #### [facility] [address] [place] [phone] #### HBA1C, LIPB #### [facility] [address] [place] [phone] MRI BRAIN WO IVCONon 019 MRI BRAIN WO IVCON * * *Final Report* * * DATE OF EXAM: Jul 29 2018 12:07PM [facility]VM 0294 - MRI BRAIN WO IVCON / [...] nonspecific however likely represents chronic microvascular ischemia. Apparel Patternmaker: ROSITA Transcribe Date/Time: Jul 29 2018 12:10P Dictated by : STEVEN CLEMONS MD This examination was interpreted and the report reviewed and electronically signed by: STEVEN CLEMONS MD on Jul 29 2018 12:12PM EST [id number] N [facility] NURSING PROGon 07-29-2018 Protein mass conc HNO ID: [id number] Author: Naheed StrongRn) CHAPARRITA Lu Service: ? [...] note was completed by: Naheed Lu RN [facility] Protein mass conc HNO ID: [id number] Author: Sujatha (Rn) CHAPARRITA Reed Service: ? Author Type: Registered Nurse Type: Nursing Progress Note Filed: 07/29/2018 4:30 AM Note Text: Nursing Progress Note Patient Name: Romain aBiley Patient Location: / Transfer Note: Patient transferred into room/unit PKTA-5 in stable condition. Actions taken: pt oriented to room and call light. NIH 2. Some dysarthria and R ataxia noted. C/o frontal headache. Safety maintained, call light in reach, will continue to monitor. This note was completed by: Sujatha Reed RN [facility] PLAN OF CAREon 07-29-2018 PLAN OF CARE HNO ID: [id number] Author: Ryan Lozano) Gabriella Service: Psychiatry Author Type: Physician Type: Plan of Care Filed: 07/31/2018 5:56 PM Note Text: General Internal Medicine Plan of Care Patient: Romain Bailey HANDP reviewed. Briefly, Ms. Bailey is a 68yo female presenting from [place] ED for concern of TIA vs CVA. [...] similar precipitating symptoms in early June at [place] ED with imaging not indicative of CVA and concern for complex migraine vs TIA. She endorsed psychosocial stressors and recent anxiety regarding her significant other's planned visit from [place] which has been postponed since his daughter underwent lithotripsy and now requires renal transplant. Additionally, she has recent work stress due to increased volume. 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 Upon exam today, interval improvement in headache severity, ataxia and dysarthria. No new complaints. Objective: PE notable for mild RUE ataxia on akvavk-sx-sosd testing, mild RUE pronator drift. CN II-XII [...] 2:36 PM, July 29, 2018 PGY-1, Psychiatry [id number] GIM Attending Seen and admitted earlier today Management as outlined, as discussed with resident. Ryan Quiroz MD; MPH [facility] Protimeon 07-29-2018 Prothrombin time (PT) Coag time (PPP) 10.3 s Normal 9.7-13.0 [facility] Comment on above: Performed By: #### C BC, PT, PTT, BMP ####[facility] [address] [place] [phone] Prothrombin time (PT) Coag time (PPP) 1.0 s Normal 0.9-1.3 [facility] Comment on above: Result Comment: Candelaria min K Antagonist (VKA) Therapeutic Range: INR 2 to 3 (Target INR of 2.5) Note: For patients treated with VKA drugs, such as warfarin, the [place] College of Chest Physicians 2012 Guideline recommends [...] Chest 2012, 141:7S-47S Russel RA, et al. [facility] 2017, 70: 252-289 Performed By: #### C BC, PT, PTT, BMP ####[facility] [address] [place] [phone] THERAPY NTon 07-29-2018 THERAPY NT HNO ID: [id number] Author: Lavern Fontenot (Ot) Paxton Service: Occupational Therapy Author Type: Occupational Therapist Type: Therapy (PT/OT/Speech/Resp) Filed: 07/29/2018 9:33 AM Note Text: Occupational Therapy Evaluation SERVICE DATE: 07/29/2018 SERVICE TIME: 734 to 08 ROOM: [place] [address] Recommended Discharge Disposition: Home OT Anticipated Discharge Needs: Physical Assist at Home Physical Assist at Home for: Transportation;Shoppi ng;Cleaning;Laundry;M eals OT Recommendations to Nursing: To Bathroom for [...] admission Treatment Interventions: Education;Self Care / Home Management;Strengthen ing;Functional Mobility Training;Balance Training;Neuromuscula r Re-education;Pain Management Plan of Care developed with: Patient TREATMENT INTERVENTIONS: Therapy Diagnosis: Reduced mobility-other;Decrea sed activities of daily living (ADL);Muscle Weakness (generalized);Unstead iness on feet;Lack of coordination-other Interventions Provided: Evaluation;Therapeuti c Activity (07153);Self Intermediate Management (24522) $ Evaluation-Low (20169) Billed Units: 1 unit Therapeutic Activity (89864) Treatment Minutes: 8 1 unit Skilled Intervention(s): [...] facilitate increased independence with ADL tasks. 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 OBJECTIVE: Cognition/Communicati on Deficits Communication Deficits: (pt reports intermittent stuttering) [...] July 29, 2018 TIME: 9:29 AM Normal [facility] Troponin Ton 07-29-2018 Troponin T.cardiac mass conc ug/L Normal 0.000-0.029 [facility] Comment on above: Performed By: #### T NT ####[facility] [address] [place] [phone] ANES Reymundo 05-29-2018 ANES POST HNO ID: [id number] Author: Jose A Knowles Service: Anesthesiology Author Type: Anesthesiologist Type: Anesthesia PostOp Filed: 05/29/2018 12:08 PM Note Text: POST ANESTHESIA EVALUATION NOTE SERVICE DATE: 05/29/2018 SERVICE TIME: 12 : 1950 Vitals: 05/29/18 0934 05/29/18 1045 05/29/18 1115 05/29/18 1134 Temp: 36.8 ?C (98.2 ?F) 36.8 ?C (98.2 ?F) 36.5 ?C (97.7 ?F) 36.5 ?C (97.7 ?F) 05/29/18 1100 05/29/18 1115 05/29/18 11205/29/18 1134 BP: 147/76 145/75 138/71 153/84 05/29/18 [...] 2018 TIME: 12:08 PM PAGER/CONTACT #: anesthesia [facility] ANES PREOPon 05-29-2018 ANES PREOP HNO ID: [id number] Author: Jose A Knowles Service: Anesthesiology Author [...] Father - Ischemic Heart Disease Father d. [place] - Ischemic Heart Disease Maternal Grandfather d. [place] while holding her at 4mo - Blindness [...] once daily as needed. FOR ALLERGY SYMPTOMS fluticasone-salmetero l (ADVAIR DISKUS) 100-50 mcg/dose dsdv Inhale 1 [...] iv infusion 30 mL/hr INTRAVENOUS CONTINUOUS Joshua Michael Cassidy Last Rate: 30 mL/hr at 05/29/18950 30 mL/hr at 05/29/18950 Allergies: ALLERGIES Allergen Reactions - Adhesive Tape [...] May 29, 2018 TIME: 10:28 AM CSN: [id number] Normal [facility] HISTORY PHYSICALon 9 HISTORY PHYSICAL HNO ID: [id number] Author: Joshua Leal Cassidy Service: General Surgery Author Type: Physician Type: [...] ? ? CURRENT?MEDICATIONS ? Current Outpatient Prescriptions: fluticasone-salmetero l (ADVAIR DISKUS) 100-50 mcg/dose dsdv Inhale 1 [...] ? ALLERGIES: Adhesive Tape (Rosins); Bactrim Ds [Sulfamethoxazole-Tri methoprim]; Bee Sting; Darvon [Propoxyphene Hcl]; Prednisone ? PERSONAL HISTORY: SOCIAL?HISTORY Social History Marital status: Single Spouse name: Years of education: Number of children: 4 ? 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 Social History Main Topics Smoking status: Never Smoker ? Smokeless tobacco: Never Used Alcohol use: No Drug use: No Social History Narrative [employer] . 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 [employer]. Twin brother Sep 2015 [employer]. 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 ? ? FAMILY HISTORY: FAMILY?HISTORY FAMILY HISTORY Problem Relation Age of Onset - None Mother ? ? from fall - Diabetes Father ? - Ischemic Heart Disease Father ? ? d. [place] - Ischemic Heart Disease Maternal Grandfather ? ? d. [place] while holding her at 4mo - Blindness [...] to schedule colonoscopy. ? Joshua Benjamin MD [facility] NURSING PROGon 05-29-2018 Protein mass conc HNO ID: [id number] Author: Elise (Rn) CHAPARRITA Santillan Service: ? [...] note was completed by: Elise Santillan RN [facility] Protein mass conc HNO ID: [id number] Author: Kristine StrongRn) CHAPARRITA Yancey Service: Nursing Author Type: Registered Nurse Type: Nursing Progress Note Filed: 05/29/2018 9:50 AM Note Text: Nursing Progress Note Patient Name: Romain Bailey Patient Location: [facility] pt ready for OR, call light in reach, friend to bedside. This note was completed by: Kristine Yancey RN [facility] PT EDon 05-29-2018 PT ED HNO ID: [id number] Author: Elise StrongRn) CHAPARRITA Santillan Service: ? [...] Signed By: Elise Santillan RN In Department: [facility] ENDOSCOPY [facility] PT ED HNO ID: [id number] Author: Kristine StrongRn) CHAPARRITA Yancey Service: Nursing [...] Signed By: Kristine Yancey RN In Department: [facility] ENDOSCOPY [facility] NURSING PROGon 05-28-2018 Protein mass conc HNO ID: [id number] Author: Lucy StrongRn) CHAPARRITA Wilson Service: ? Author Type: Registered Nurse Type: [...] Wilson RN May 28, 2018 1:50 PM [facility] HOSPon 05-07-2018 HOSP Patient:Jaime Bailey MRN: Height:5' 6(1.676 m) Weight:175 lb (79.379 kg) Outpatient Medications as of 05/29/18: benzonatate (TESSALON PERLES) 100 mg capsule fluticasone-salmetero l (ADVAIR DISKUS) 100-50 mcg/dose dsdv pantoprazole DR [...] of finger, middle or proximal phalanx, closed [[id number]] History of colon polyps [Z86.010] Chronic pain of right knee [M25.561, G89.29] Primary osteoarthritis of right knee [M17.11] BPPV (benign paroxysmal positional vertigo) [H81.10] Bee sting allergy [Z91.030] Bilateral low back pain with bilateral sciatica [M54.42, M54.41] Calculus of kidney [N20.0] LLQ pain [R10.32] Allergies: Adhesive Tape (Rosins) Bactrim Ds [Sulfamethoxazole-Tri methoprim] Bee Sting Darvon [Propoxyphene Hcl] Prednisone Date Verified: 05/29/18 Lab Values No results within the last 30 days for the following basenames: K,HCT Progress Notes ([facility]): Tameka Rasmussen RN 05/23/2018 8:47 [...] be faxed to . Case reference number [id number]. Last OV note faxed as requested. Will await outcome. Na Mayberry DPM 05/27/2018 5:11 PM Signed Thank you Na Mayberry DPM Progress Notes ([facility]): Makenzie To Ma 05/16/2018 6:35 AM Signed ----- Message from Aranza Sanderson sent at 05/16/2018 6:32 AM EDT ----- Flu swab was negative. Follow instructions given by provider at visit, f/u with PCP if symptoms persist or worsen. Aranza Sanderson APRN.PRIMO To Ma 05/16/2018 8:04 AM Signed Pt notified [facility] XR Tib/Fib Left 2 Viewon XR Tib/Fib [...] pmSigned by: Steven Bean DO Technologist: RAEANN [facility] PROBING OF LACRIMAL CANALICU LI WITH OR WITHOUT IRRIGATION [facility] Vital Signs Date Time Vital Sign Value Performing Clinician Faci lity 02-13-2024 18:11-0500 Body temperature 97.59 [degF] Erin Corona APRN.PRIMO Work Phone: [facility] 02-13-2024 18:11-0500 Diastolic blood pressure 70 mm[Hg] Erin Corona APRN.PAPER CARRIER Work Phone: [facility] 02-13-2024 18:11-0500 Heart rate 65 /min Erin Corona APRN.PAPER CARRIER Work Phone: [facility] 02-13-2024 18:11-0500 Respiratory rate 16 /min Erin Corona APRN.PAPER CARRIER Work Phone: [facility] 02-13-2024 18:11-0500 SaO2% (BldA) [Mass fraction] 97 % Erin Corona APRN.PAPER CARRIER Work Phone: [facility] 02-13-2024 18:11-0500 Systolic blood pressure 122 mm[Hg] Erin Corona APRN.PAPER CARRIER Work Phone: [facility] 01-31-2024 10:51-0500 Body mass index (BMI) [Ratio] 31.14 kg/m2 Faith Mullins APRN.FINANCIAL SALES CONSULTANT Work Phone: [facility] 01-31-2024 10:51-0500 Body weight 87.5 kg Faith Mullins COMPUTER NETWORK ENGINEER.FINANCIAL SALES CONSULTANT Work Phone: [facility] 01-31-2024 10:51-0500 Diastolic blood pressure 68 mm[Hg] Faith Mullins COMPUTER NETWORK ENGINEER.FINANCIAL SALES CONSULTANT Work Phone: [facility] 01-31-2024 10:51-0500 Heart rate 99 /min Faith Mullins COMPUTER NETWORK ENGINEER.FINANCIAL SALES CONSULTANT Work Phone: [facility] 01-31-2024 10:51-0500 Respiratory rate 16 /min Faith Mullins COMPUTER NETWORK ENGINEER.FINANCIAL SALES CONSULTANT Work Phone: [facility] 01-31-2024 10:51-0500 Systolic blood pressure 110 mm[Hg] Faith Mullins COMPUTER NETWORK ENGINEER.FINANCIAL SALES CONSULTANT Work Phone: [facility] 01-11-2024 10:33-0500 Body mass index (BMI) [Ratio] 31.17 kg/m2 Faith Mullins COMPUTER NETWORK ENGINEER.FINANCIAL SALES CONSULTANT Work Phone: [facility] 01-11-2024 10:33-0500 Body temperature 98.49 [degF] Afith Mullins COMPUTER NETWORK ENGINEER.FINANCIAL SALES CONSULTANT Work Phone: [facility] 01-11-2024 10:33-0500 Body weight 87.6 kg Faith Mullins COMPUTER NETWORK ENGINEER.FINANCIAL SALES CONSULTANT Work Phone: [facility] 01-11-2024 10:33-0500 Diastolic blood pressure 66 mm[Hg] Faith Mullins COMPUTER NETWORK ENGINEER.FINANCIAL SALES CONSULTANT Work Phone: [facility] 01-11-2024 10:33-0500 Heart rate 62 /min Faith Mullins COMPUTER NETWORK ENGINEER.FINANCIAL SALES CONSULTANT Work Phone: [facility] 01-11-2024 10:33-0500 Respiratory rate 16 /min Faith Mullins COMPUTER NETWORK ENGINEER.FINANCIAL SALES CONSULTANT Work Phone: [facility] 01-11-2024 10:33-0500 SaO2% (BldA) [Mass fraction] 98 % Faith Mullins COMPUTER NETWORK ENGINEER.FINANCIAL SALES CONSULTANT Work Phone: [facility] 01-11-2024 10:33-0500 Systolic blood pressure 132 mm[Hg] Faith Mullins COMPUTER NETWORK ENGINEERHUNTER Work Phone: [facility] 07-30-2023 10:45-0400 Body mass index (BMI) [Ratio] 31.64 kg/m2 Fatemeh Rogers MD Work Phone: [facility] 07-30-2023 10:45-0400 Body temperature 98.4 [degF] Fatemeh Rogers MD Work Phone: [facility] 07-30-2023 10:45-0400 Body weight 88.91 kg Fatemeh Rogers MD Work Phone: [facility] 07-30-2023 10:45-0400 Diastolic blood pressure 73 mm[Hg] Fatemeh Rogers MD Work Phone: [facility] 07-30-2023 10:45-0400 Heart rate 84 /min Fatemeh Rogers MD Work Phone: [facility] 07-30-2023 10:45-0400 Respiratory rate 18 /min Fatemeh Rogers MD Work Phone: [facility] 07-30-2023 10:45-0400 SaO2% (BldA) [Mass fraction] 95 % Fatemeh Rogers MD Work Phone: [facility] 07-30-2023 10:45-0400 Systolic blood pressure 127 mm[Hg] Fatemeh Rogers MD Work Phone: [facility] 07-26-2023 10:55-0400 Body mass index (BMI) [Ratio] 31.92 kg/m2 Trenton Aberegg PA Work Phone: [facility] 07-26-2023 10:55-0400 Body temperature 98.1 [degF] Krislyn Aberegg PA Work Phone: [facility] 07-26-2023 10:55-0400 Body weight 89.7 kg Krislymary Aberegg PA Work Phone: [facility] 07-26-2023 10:55-0400 Diastolic blood pressure 67 mm[Hg] Krislyn Aberegg PA Work Phone: [facility] 07-26-2023 10:55-0400 Heart rate 73 /min Krislyn Aberegg PA Work Phone: [facility] 07-26-2023 10:55-0400 Respiratory rate 18 /min Krislyn Aberegg PA Work Phone: [facility] 07-26-2023 10:55-0400 SaO2% (BldA) [Mass fraction] 98 % Krislyn Aberegg PA Work Phone: [facility] 07-26-2023 10:55-0400 Systolic blood pressure 155 mm[Hg] Krislyn Aberegg PA Work Phone: [facility] 07-04-2023 09:06-0400 Body mass index (BMI) [Ratio] 31.8 kg/m2 Fatemeh Rogers MD Work Phone: [facility] 07-04-2023 09:06-0400 Body temperature 98.49 [degF] Fatemeh Rogers MD Work Phone: [facility] 07-04-2023 09:06-0400 Body weight 89.36 kg Fatemeh Rogers MD Work Phone: [facility] 07-04-2023 09:06-0400 Diastolic blood pressure 70 mm[Hg] Fatemeh Rogers MD Work Phone: [facility] 07-04-2023 09:06-0400 Heart rate 78 /min Fatemeh Rogers MD Work Phone: [facility] 07-04-2023 09:06-0400 Respiratory rate 18 /min Fatemeh Rogers MD Work Phone: [facility] 07-04-2023 09:06-0400 SaO2% (BldA) [Mass fraction] 99 % Fatemeh Rogers MD Work Phone: [facility] 07-04-2023 09:06-0400 Systolic blood pressure 138 mm[Hg] Fatemeh Rogers MD Work Phone: [facility] 06-08-2023 10:38-0400 Diastolic blood pressure 64 mm[Hg] Fatemeh Rogers MD Work Phone: [facility] 06-08-2023 10:38-0400 Systolic blood pressure 118 mm[Hg] Fatemeh Rogers MD Work Phone: [facility] 06-08-2023 09:46-0400 Body mass index (BMI) [Ratio] 32.44 kg/m2 Fatemeh Rogers MD Work Phone: [facility] 06-08-2023 09:46-0400 Body temperature 98.29 [degF] Fatemeh Rogers MD Work Phone: [facility] 06-08-2023 09:46-0400 Body weight 91.17 kg Fatemeh Rogers MD Work Phone: [facility] 06-08-2023 09:46-0400 Heart rate 96 /min Fatemeh Rogers MD Work Phone: [facility] 06-08-2023 09:46-0400 Respiratory rate 18 /min Fatemeh Rogers MD Work Phone: [facility] 05-30-2023 15:30-0400 Body temperature 98.2 [degF] Dr. Fatemeh Rogers Work Phone: [facility] 05-30-2023 15:30-0400 Diastolic blood pressure 79 mm[Hg] Dr. Fatemeh Rogers Work Phone: [facility] 05-30-2023 15:30-0400 Heart rate 84 /min Dr. Fatemeh Rogers Work Phone: [facility] 05-30-2023 15:30-0400 Respiratory rate 16 /min Dr. Fatemeh Rogers Work Phone: [facility] 05-30-2023 15:30-0400 SaO2% (BldA) [Mass fraction] 94 % Dr. Fatemeh Rogers Work Phone: 8(053)893-957784 [place] [address] 05-30-2023 15:30-0400 Systolic blood pressure 123 mm[Hg] Dr. Fatemeh Rogers Work Phone: 0(128)055-809557 [place] [address] 05-29-2023 09:16-0400 Inhaled oxygen flow rate 2 L/min Dr. Fatemeh Rogers Work Phone: 6(038)591-668557 [place] [address] 05-27-2023 10:49-0400 Body height 167.[address] Fatemeh Rogers Work Phone: 8(976)321-038357 [place] [address] 05-27-2023 10:49-0400 Body weight 93.[address] Fatemeh Rogers Work Phone: 1(329)820-011157 [place] [address] 05-26-2023 18:22-0400 Body mass index (BMI) [Ratio] 33.2 kg/m2 Dr. Fatemeh Rogers Work Phone: 4(882)995-443257 [place] [address] 05-26-2023 16:04-0400 Body temperature 98.2 [degF] Dr. Fatemeh Rogers Work Phone: 0(559)428-884257 [place] [address] 05-26-2023 16:04-0400 Diastolic blood pressure 85 mm[Hg] Dr. Fatemeh Rogers Work Phone: 5(355)419-620757 [place] [address] 05-26-2023 16:04-0400 Heart rate 74 /min Dr. Fatemeh Rogers Work Phone: 4(843)626-827957 [place] [address] 05-26-2023 16:04-0400 Respiratory rate 18 /min Dr. Fatemeh Rogers Work Phone: 4(765)200-840957 [place] [address] 05-26-2023 16:04-0400 SaO2% (BldA) [Mass fraction] 99 % Dr. Fatemeh Rogers Work Phone: 9(386)271-440457 [place] [address] 05-26-2023 16:04-0400 Systolic blood pressure 153 mm[Hg] Dr. Fatemeh Rogers Work Phone: 5(738)347-428057 [place] [address] 05-26-2023 13:18-0400 Body height 167.[address] Fatemeh Rogers Work Phone: [facility] 05-26-2023 13:18-0400 Body mass index (BMI) [Ratio] 33.2 kg/m2 Dr. Fatemeh Rogers Work Phone: [facility] 05-26-2023 13:18-0400 Body weight 93.[address] Fatemeh Rogers Work Phone: [facility] 02-27-2023 12:28-0500 Body temperature 97.81 [degF] Fatemeh Rogers MD Work Phone: [facility] 02-27-2023 12:28-0500 Body weight 89.54 kg Fatemeh Rogers MD Work Phone: [facility] 02-27-2023 12:28-0500 Diastolic blood pressure 72 mm[Hg] Fatemeh Rogers MD Work Phone: [facility] 02-27-2023 12:28-0500 Heart rate 94 /min Fatemeh Rogers MD Work Phone: [facility] 02-27-2023 12:28-0500 Respiratory rate 18 /min Fatemeh Rogers MD Work Phone: [facility] 02-27-2023 12:28-0500 SaO2% (BldA) [Mass fraction] 97 % Fatemeh Rogers MD Work Phone: [facility] 02-27-2023 12:28-0500 Systolic blood pressure 122 mm[Hg] Fatemeh Rogers MD Work Phone: [facility] 02-20-2023 14:38-0500 Body temperature 97.6 [degF] Dr. Fatemeh Rogers Work Phone: [facility] 02-20-2023 14:38-0500 Diastolic blood pressure 71 mm[Hg] Dr. Fatemeh Rogers Work Phone: [facility] 02-20-2023 14:38-0500 Heart rate 78 /min Dr. Fatemeh Rogers Work Phone: [facility] 02-20-2023 14:38-0500 Inhaled oxygen flow rate 2 L/min Dr. Fatemeh Rogers Work Phone: [facility] 02-20-2023 14:38-0500 Respiratory rate 18 /min Dr. Fatemeh Rogers Work Phone: [facility] 02-20-2023 14:38-0500 SaO2% (BldA) [Mass fraction] 92 % Dr. Fatemeh Rogers Work Phone: [facility] 02-20-2023 14:38-0500 Systolic blood pressure 141 mm[Hg] Dr. Fatemeh Rogers Work Phone: [facility] 02-20-2023 10:38-0500 Body weight 91.[address] Fatemeh Rogers Work Phone: [facility] 02-20-2023 06:00-0500 Body mass index (BMI) [Ratio] 32.7 kg/m2 Dr. Fatemeh Rogers Work Phone: [facility] 02-17-2023 13:29-0500 Diastolic blood pressure 95 mm[Hg] [facility] 02-17-2023 13:29-0500 Heart rate 124 /min [facility] 02-17-2023 13:29-0500 Systolic blood pressure 150 mm[Hg] [facility] 02-17-2023 13:22-0500 Respiratory rate 21 /min [facility] 02-17-2023 12:59-0500 SaO2% (BldA) [Mass fraction] 90 % [facility] 02-17-2023 10:54-0500 Body height 167.64 cm [facility] 02-17-2023 10:54-0500 Body mass index (BMI) [Ratio] 32.3 kg/m2 [facility] 02-17-2023 10:54-0500 Body temperature 97.3 [degF] [facility] 02-17-2023 10:54-0500 Body weight 90.99 kg [facility] 02-10-2023 09:09-0500 Body temperature 98.29 [degF] Felicity Athy PA-C Work Phone: [facility] 02-10-2023 09:09-0500 Body weight 93.62 kg Felicity Athy PA-C Work Phone: [facility] 02-10-2023 09:09-0500 Diastolic blood pressure 76 mm[Hg] Felicity Athy PA-C Work Phone: [facility] 02-10-2023 09:09-0500 Heart rate 83 /min Felicity Athy PA-C Work Phone: [facility] 02-10-2023 09:09-0500 Respiratory rate 18 /min Felicity Athy PA-C Work Phone: [facility] 02-10-2023 09:09-0500 SaO2% (BldA) [Mass fraction] 96 % Felicity Athy PA-C Work Phone: [facility] 02-10-2023 09:09-0500 Systolic blood pressure 134 mm[Hg] Felicity Athy PA-C Work Phone: [facility] 01-01-2023 08:50-0500 Body weight 93.44 kg Faith Mullins COMPUTER NETWORK ENGINEER.FINANCIAL SALES CONSULTANT Work Phone: [facility] 01-01-2023 08:50-0500 Diastolic blood pressure 77 mm[Hg] Faith Mullins COMPUTER NETWORK ENGINEER.FINANCIAL SALES CONSULTANT Work Phone: [facility] 01-01-2023 08:50-0500 Heart rate 74 /min Faith Mullins COMPUTER NETWORK ENGINEER.FINANCIAL SALES CONSULTANT Work Phone: [facility] 01-01-2023 08:50-0500 Respiratory rate 16 /min Faith Mullins COMPUTER NETWORK ENGINEER.FINANCIAL SALES CONSULTANT Work Phone: [facility] 01-01-2023 08:50-0500 Systolic blood pressure 126 mm[Hg] Faith Mullins COMPUTER NETWORK ENGINEER.FINANCIAL SALES CONSULTANT Work Phone: [facility] 11-25-2022 14:30-0400 Body temperature 98.71 [degF] Katie Canas COMPUTER NETWORK ENGINEER.PAPER CARRIER Work Phone: [facility] 11-25-2022 14:30-0400 Body weight 93.17 kg Katie Canas COMPUTER NETWORK ENGINEER.PAPER CARRIER Work Phone: [facility] 11-25-2022 14:30-0400 Diastolic blood pressure 74 mm[Hg] Katie Canas COMPUTER NETWORK ENGINEER.PAPER CARRIER Work Phone: [facility] 11-25-2022 14:30-0400 Heart rate 72 /min Katie Canas COMPUTER NETWORK ENGINEER.PAPER CARRIER Work Phone: [facility] 11-25-2022 14:30-0400 Respiratory rate 18 /min Katie Canas COMPUTER NETWORK ENGINEER.PAPER CARRIER Work Phone: [facility] 11-25-2022 14:30-0400 SaO2% (BldA) [Mass fraction] 97 % Katie Canas COMPUTER NETWORK ENGINEER.PAPER CARRIER Work Phone: [facility] 11-25-2022 14:30-0400 Systolic blood pressure 128 mm[Hg] Katie Canas COMPUTER NETWORK ENGINEER.PAPER CARRIER Work Phone: [facility] 11-16-2022 16:36-0400 Body temperature 99.19 [degF] Erasmo Jose Angel COMPUTER NETWORK ENGINEER.PAPER CARRIER Work Phone: [facility] 11-16-2022 16:36-0400 Body weight 93.44 kg Erasmo Walter COMPUTER NETWORK ENGINEER.PAPER CARRIER Work Phone: [facility] 11-16-2022 16:36-0400 Diastolic blood pressure 80 mm[Hg] Erasmo Jose Angel COMPUTER NETWORK ENGINEER.PAPER CARRIER Work Phone: [facility] 11-16-2022 16:36-0400 Heart rate 71 /min Erasmo Jose Angel COMPUTER NETWORK ENGINEER.PAPER CARRIER Work Phone: [facility] 11-16-2022 16:36-0400 Respiratory rate 22 /min Erasmo Jose Angel COMPUTER NETWORK ENGINEER.PAPER CARRIER Work Phone: [facility] 11-16-2022 16:36-0400 SaO2% (BldA) [Mass fraction] 97 % Erasmo Walter APRN.PAPER CARRIER Work Phone: [facility] 11-16-2022 16:36-0400 Systolic blood pressure 170 mm[Hg] Erasmo Walter APRN.PAPER CARRIER Work Phone: [facility] 11-04-2022 19:04-0400 Body height 167.[address] Fatemeh Rogers Work Phone: [facility] 11-04-2022 19:04-0400 Body mass index (BMI) [Ratio] 33.3 kg/m2 Dr. Fatemeh Rogers Work Phone: [facility] 11-04-2022 19:04-0400 Body temperature 97.8 [degF] Dr. Fatemeh Rogers Work Phone: [facility] 11-04-2022 19:04-0400 Body weight 93.[address] Fatemeh Rogers Work Phone: [facility] 11-04-2022 19:04-0400 Diastolic blood pressure 72 mm[Hg] Dr. Fatemeh Rogers Work Phone: [facility] 11-04-2022 19:04-0400 Heart rate 74 /min Dr. Fatemeh Rogers Work Phone: [facility] 11-04-2022 19:04-0400 Respiratory rate 16 /min Dr. Fatemeh Rogers Work Phone: [facility] 11-04-2022 19:04-0400 SaO2% (BldA) [Mass fraction] 99 % Dr. Fatemeh Rogers Work Phone: [facility] 11-04-2022 19:04-0400 Systolic blood pressure 191 mm[Hg] Dr. Fatemeh Rogers Work Phone: [facility] 09-07-2022 09:50-0400 Body temperature 99.5 [degF] Paul Win APRN.PAPER CARRIER Work Phone: [facility] 09-07-2022 09:50-0400 Body weight 94.89 kg [facility] COMPUTER NETWORK ENGINEER.PAPER CARRIER Work Phone: [facility] 09-07-2022 09:50-0400 Diastolic blood pressure 72 mm[Hg] [facility] COMPUTER NETWORK ENGINEER.PAPER CARRIER Work Phone: [facility] 09-07-2022 09:50-0400 Heart rate 88 /min [facility] COMPUTER NETWORK ENGINEER.PAPER CARRIER Work Phone: [facility] 09-07-2022 09:50-0400 Respiratory rate 18 /min [facility] COMPUTER NETWORK ENGINEER.PAPER CARRIER Work Phone: [facility] 09-07-2022 09:50-0400 SaO2% (BldA) [Mass fraction] 96 % [facility] COMPUTER NETWORK ENGINEER.PAPER CARRIER Work Phone: [facility] 09-07-2022 09:50-0400 Systolic blood pressure 126 mm[Hg] [facility] COMPUTER NETWORK ENGINEER.PAPER CARRIER Work Phone: [facility] 08-10-2022 10:31-0400 Body height 167.6 cm Francesca Peñaloza PA-C Work Phone: [facility] 08-10-2022 10:31-0400 Body weight 93.44 kg Francesca Peñaloza PA-C Work Phone: [facility] 08-10-2022 10:31-0400 Diastolic blood pressure 50 mm[Hg] Francesca Peñaloza PA-C Work Phone: [facility] 08-10-2022 10:31-0400 Heart rate 56 /min Francesca Peñaloza PA-C Work Phone: [facility] 08-10-2022 10:31-0400 SaO2% (BldA) [Mass fraction] 95 % Francesca Peñaloza PA-C Work Phone: [facility] 08-10-2022 10:31-0400 Systolic blood pressure 108 mm[Hg] Francesca Peñaloza PA-C Work Phone: [facility] 06-30-2022 09:30-0400 Body height 163 cm Fatemeh Rogers MD Work Phone: [facility] 06-30-2022 09:30-0400 Body temperature 98.2 [degF] Fatemeh Rogers MD Work Phone: [facility] 06-30-2022 09:30-0400 Body weight 95.25 kg Fatemeh Rogers MD Work Phone: [facility] 06-30-2022 09:30-0400 Diastolic blood pressure 64 mm[Hg] Fatemeh Rogers MD Work Phone: [facility] 06-30-2022 09:30-0400 Heart rate 72 /min Fatemeh Rogers MD Work Phone: [facility] 06-30-2022 09:30-0400 Respiratory rate 18 /min Fatemeh Rogers MD Work Phone: [facility] 06-30-2022 09:30-0400 SaO2% (BldA) [Mass fraction] 96 % Fatemeh Rogers MD Work Phone: [facility] 06-30-2022 09:30-0400 Systolic blood pressure 122 mm[Hg] Fatemeh Rogers MD Work Phone: [facility] 05-09-2022 08:55-0400 Body height 167.[address] Fatemeh Rogers Work Phone: [facility] 05-09-2022 08:55-0400 Body mass index (BMI) [Ratio] 32.9 kg/m2 Dr. Fatemeh Rogers Work Phone: [facility] 05-09-2022 08:55-0400 Body weight 92.[address] Fatemeh Rogers Work Phone: [facility] 05-09-2022 08:55-0400 Diastolic blood pressure 7 mm[Hg] Dr. Fatemeh Rogers Work Phone: [facility] 05-09-2022 08:55-0400 Heart rate 61 /min Dr. Fatemeh Rogers Work Phone: [facility] 05-09-2022 08:55-0400 Respiratory rate 18 /min Dr. Fatemeh Rogers Work Phone: [facility] 05-09-2022 08:55-0400 Systolic blood pressure 131 mm[Hg] Dr. Fatemeh Rogers Work Phone: [facility] 04-11-2022 10:30-0500 Body weight 93.89 kg Faith Mullins COMPUTER NETWORK ENGINEER.FINANCIAL SALES CONSULTANT Work Phone: [facility] 04-11-2022 10:30-0500 Diastolic blood pressure 80 mm[Hg] Faith Mullins COMPUTER NETWORK ENGINEER.FINANCIAL SALES CONSULTANT Work Phone: [facility] 04-11-2022 10:30-0500 Heart rate 60 /min Faith Mullins COMPUTER NETWORK ENGINEER.FINANCIAL SALES CONSULTANT Work Phone: [facility] 04-11-2022 10:30-0500 Respiratory rate 16 /min Faith Mullins COMPUTER NETWORK ENGINEER.FINANCIAL SALES CONSULTANT Work Phone: [facility] 04-11-2022 10:30-0500 SaO2% (BldA) [Mass fraction] 96 % Faith Mullins COMPUTER NETWORK ENGINEER.FINANCIAL SALES CONSULTANT Work Phone: [facility] 04-11-2022 10:30-0500 Systolic blood pressure 136 mm[Hg] Faith Mullins COMPUTER NETWORK ENGINEER.FINANCIAL SALES CONSULTANT Work Phone: [facility] 03-13-2022 10:05-0500 Body temperature 98 [degF] Dr. Paul Reynolds Work Phone: [facility] 03-13-2022 10:05-0500 Diastolic blood pressure 73 mm[Hg] Dr. Paul Reynolds Work Phone: [facility] 03-13-2022 10:05-0500 Heart rate 63 /min Dr. Paul Reynolds Work Phone: [facility] 03-13-2022 10:05-0500 Respiratory rate 16 /min Dr. Paul Reynolds Work Phone: [facility] 03-13-2022 10:05-0500 SaO2% (BldA) [Mass fraction] 93 % Dr. Paul Reynolds Work Phone: [facility] 03-13-2022 10:05-0500 Systolic blood pressure 157 mm[Hg] Dr. Paul Reynolds Work Phone: [facility] 03-13-2022 08:48-0500 Inhaled oxygen flow rate 3 L/min Dr. Paul Reynolds Work Phone: [facility] 03-13-2022 08:16-0500 Body height 167.[address] Paul Reynolds Work Phone: 6(406)985-798755 [place] [address] 03-13-2022 08:16-0500 Body mass index (BMI) [Ratio] 31.9 kg/m2 Dr. Paul Reynolds Work Phone: 6(818)809-856055 [place] [address] 03-13-2022 08:16-0500 Body weight 89.[address] Paul Reynolds Work Phone: [facility] 01-24-2022 15:07-0500 Diastolic blood pressure 73 mm[Hg] Dr. Paul Reynodls Work Phone: 7(008)097-671855 [place] [address] 01-24-2022 15:07-0500 Heart rate 67 /min Dr. Paul Reynolds Work Phone: [facility] 01-24-2022 15:07-0500 Respiratory rate 16 /min Dr. Paul Reynolds Work Phone: [facility] 01-24-2022 15:07-0500 SaO2% (BldA) [Mass fraction] 97 % Dr. Paul Reynolds Work Phone: [facility] 01-24-2022 15:07-0500 Systolic blood pressure 143 mm[Hg] Dr. Paul Reynolds Work Phone: [facility] 01-24-2022 10:26-0500 Body height 167.[address] Paul Reynolds Work Phone: [facility] Work Phone: 01-24-2022 10:26-0500 Body mass index (BMI) [Ratio] 33.9 kg/m2 Dr. Paul Reynolds Work Phone: [facility] 01-24-2022 10:26-0500 Body temperature 97.8 [degF] Dr. Paul Reynolds Work Phone: [facility] 01-24-2022 10:26-0500 Body weight 95.[address] Paul Reynolds Work Phone: [facility] 01-10-2022 09:56-0500 Body weight 93.44 kg Faith Mullins COMPUTER NETWORK ENGINEER.FINANCIAL SALES CONSULTANT Work Phone: [facility] 01-10-2022 09:56-0500 Diastolic blood pressure 78 mm[Hg] Faith Mullins COMPUTER NETWORK ENGINEER.FINANCIAL SALES CONSULTANT Work Phone: [facility] 01-10-2022 09:56-0500 Heart rate 60 /min Faith Mullins COMPUTER NETWORK ENGINEER.FINANCIAL SALES CONSULTANT Work Phone: [facility] 01-10-2022 09:56-0500 Respiratory rate 16 /min Faith Mullins COMPUTER NETWORK ENGINEER.FINANCIAL SALES CONSULTANT Work Phone: [facility] 01-10-2022 09:56-0500 Systolic blood pressure 136 mm[Hg] Faith Mullins COMPUTER NETWORK ENGINEER.FINANCIAL SALES CONSULTANT Work Phone: [facility] 01-06-2022 09:55-0500 Diastolic blood pressure 68 mm[Hg] Dr. Paul Reynolds Work Phone: [facility] 01-06-2022 09:55-0500 Heart rate 63 /min Dr. Paul Reynolds Work Phone: [facility] 01-06-2022 09:55-0500 SaO2% (BldA) [Mass fraction] 94 % Dr. Paul Reynolds Work Phone: [facility] 01-06-2022 09:55-0500 Systolic blood pressure 163 mm[Hg] Dr. Paul Reynolds Work Phone: [facility] 01-06-2022 09:12-0500 Body height 167.[address] Paul Reynolds Work Phone: [facility] Work Phone: 01-06-2022 09:12-0500 Body mass index (BMI) [Ratio] 34.9 kg/m2 Dr. Paul Reynolds Work Phone: [facility] 01-06-2022 09:12-0500 Body temperature 97.1 [degF] Dr. Paul Reynolds Work Phone: [facility] 01-06-2022 09:12-0500 Body weight 98.[address] Paul Reynolds Work Phone: [facility] 01-06-2022 09:12-0500 Respiratory rate 16 /min Dr. Paul Reynolds Work Phone: [facility] 12-22-2021 14:05-0400 Body weight 93.89 kg Faith Mullins COMPUTER NETWORK ENGINEER.FINANCIAL SALES CONSULTANT Work Phone: [facility] 12-22-2021 14:05-0400 Diastolic blood pressure 80 mm[Hg] Faith Mullins COMPUTER NETWORK ENGINEER.FINANCIAL SALES CONSULTANT Work Phone: [facility] 12-22-2021 14:05-0400 Heart rate 59 /min Faith Mullins COMPUTER NETWORK ENGINEER.FINANCIAL SALES CONSULTANT Work Phone: [facility] 12-22-2021 14:05-0400 Respiratory rate 16 /min Faith Mullins COMPUTER NETWORK ENGINEER.FINANCIAL SALES CONSULTANT Work Phone: [facility] 12-22-2021 14:05-0400 SaO2% (BldA) [Mass fraction] 96 % Faith Mullins COMPUTER NETWORK ENGINEER.FINANCIAL SALES CONSULTANT Work Phone: [facility] 12-22-2021 14:05-0400 Systolic blood pressure 140 mm[Hg] Faith Mullins COMPUTER NETWORK ENGINEER.FINANCIAL SALES CONSULTANT Work Phone: [facility] 11-24-2021 07:51-0400 Body temperature 99.3 [degF] Dr. Paul Reynolds Work Phone: [facility] Work Phone: 11-24-2021 07:51-0400 Diastolic blood pressure 68 mm[Hg] Dr. Paul Reynolds Work Phone: [facility] Work Phone: 11-24-2021 07:51-0400 Heart rate 64 /min Dr. Paul Reynolds Work Phone: [facility] Work Phone: 11-24-2021 07:51-0400 Respiratory rate 18 /min Dr. Paul Reynolds Work Phone: [facility] Work Phone: 11-24-2021 07:51-0400 SaO2% (BldA) [Mass fraction] 94 % Dr. Paul Reynolds Work Phone: [facility] Work Phone: 11-24-2021 07:51-0400 Systolic blood pressure 132 mm[Hg] Dr. Paul Reynolds Work Phone: [facility] Work Phone: 11-24-2021 06:21-0400 Body height 167.[address] Paul Reynolds Work Phone: [facility] Work Phone: 11-24-2021 06:21-0400 Body mass index (BMI) [Ratio] 32.8 kg/m2 Dr. Paul Reynolds Work Phone: [facility] Work Phone: 11-24-2021 06:21-0400 Body weight 92.[address] Paul Reynolds Work Phone: [facility] Work Phone: 11-18-2021 09:37-0400 Body mass index (BMI) [Ratio] 33.2 kg/m2 Dr. Paul Reynolds Work Phone: [facility] Work Phone: 11-18-2021 09:37-0400 Body weight 93.[address] Paul Reynolds Work Phone: [facility] Work Phone: 11-18-2021 09:37-0400 Diastolic blood pressure 82 mm[Hg] Dr. Paul Reynolds Work Phone: [facility] Work Phone: 11-18-2021 09:37-0400 Heart rate 64 /min Dr. Paul Reynolds Work Phone: [facility] Work Phone: 11-18-2021 09:37-0400 Respiratory rate 16 /min Dr. Paul Reynolds Work Phone: [facility] Work Phone: 11-18-2021 09:37-0400 Systolic blood pressure 144 mm[Hg] Dr. Paul Reynolds Work Phone: [facility] Work Phone: 10-11-2021 10:56-0400 Body temperature 97 [degF] Kristine Augustin COMPUTER NETWORK ENGINEER.PAPER CARRIER Work Phone: [facility] 10-11-2021 10:56-0400 Body weight 93.62 kg Kristine Augustin COMPUTER NETWORK ENGINEER.PAPER CARRIER Work Phone: [facility] 10-11-2021 10:56-0400 Diastolic blood pressure 80 mm[Hg] Kristine Augustin COMPUTER NETWORK ENGINEER.PAPER CARRIER Work Phone: [facility] 10-11-2021 10:56-0400 Heart rate 86 /min Kristine Augustin COMPUTER NETWORK ENGINEER.PAPER CARRIER Work Phone: [facility] 10-11-2021 10:56-0400 Respiratory rate 16 /min Kristine Augustin COMPUTER NETWORK ENGINEER.PAPER CARRIER Work Phone: [facility] 10-11-2021 10:56-0400 SaO2% (BldA) [Mass fraction] 97 % Kristine Augustin COMPUTER NETWORK ENGINEER.PAPER CARRIER Work Phone: [facility] 10-11-2021 10:56-0400 Systolic blood pressure 136 mm[Hg] Kristine Augustin COMPUTER NETWORK ENGINEER.PAPER CARRIER Work Phone: [facility] 09-23-2021 14:27-0400 Body height 167.[address] Paul Reynolds Work Phone: [facility] Work Phone: 09-23-2021 14:27-0400 Body mass index (BMI) [Ratio] 33.5 kg/m2 Dr. Paul Reynolds Work Phone: [facility] Work Phone: 09-23-2021 14:27-0400 Body weight 94.[address] Paul Reynolds Work Phone: [facility] Work Phone: 09-17-2021 14:15-0400 Body temperature 97.9 [degF] Dr. Paul Reynolds Work Phone: [facility] Work Phone: 09-17-2021 14:15-0400 Diastolic blood pressure 64 mm[Hg] Dr. Paul Reynolds Work Phone: [facility] Work Phone: 09-17-2021 14:15-0400 Heart rate 54 /min Dr. Paul Reynolds Work Phone: [facility] Work Phone: 09-17-2021 14:15-0400 Respiratory rate 20 /min Dr. Paul Reynolds Work Phone: [facility] Work Phone: 09-17-2021 14:15-0400 SaO2% (BldA) [Mass fraction] 95 % Dr. Paul Reynolds Work Phone: [facility] Work Phone: 09-17-2021 14:15-0400 Systolic blood pressure 106 mm[Hg] Dr. Paul Reynolds Work Phone: [facility] Work Phone: 09-16-2021 12:41-0400 Body height 167.[address] Paul Reynolds Work Phone: [facility] Work Phone: 09-16-2021 12:41-0400 Body weight 93.[address] Paul Reynolds Work Phone: [facility] Work Phone: 09-15-2021 21:08-0400 Body mass index (BMI) [Ratio] 33.3 kg/m2 Dr. Paul Reynolds Work Phone: [facility] Work Phone: 09-15-2021 19:59-0400 Body temperature 98.2 [degF] Dr. Paul Reynolds Work Phone: [facility] Work Phone: 09-15-2021 19:59-0400 Diastolic blood pressure 87 mm[Hg] Dr. Paul Reynolds Work Phone: [facility] Work Phone: 09-15-2021 19:59-0400 Heart rate 70 /min Dr. Paul Reynolds Work Phone: [facility] Work Phone: 09-15-2021 19:59-0400 Respiratory rate 16 /min Dr. Paul Reynolds Work Phone: [facility] Work Phone: 09-15-2021 19:59-0400 SaO2% (BldA) [Mass fraction] 94 % Dr. Paul Reynolds Work Phone: [facility] Work Phone: 09-15-2021 19:59-0400 Systolic blood pressure 165 mm[Hg] Dr. Paul Reynolds Work Phone: [facility] Work Phone: 09-15-2021 18:13-0400 Diastolic blood pressure 82 mm[Hg] Dr. Paul Reynolds Work Phone: [facility] Work Phone: 09-15-2021 18:13-0400 Heart rate 68 /min Dr. Paul Reynolds Work Phone: [facility] Work Phone: 09-15-2021 18:13-0400 Respiratory rate 16 /min Dr. Paul Reynolds Work Phone: [facility] Work Phone: 09-15-2021 18:13-0400 SaO2% (BldA) [Mass fraction] 100 % Dr. Paul Reynolds Work Phone: [facility] Work Phone: 09-15-2021 18:13-0400 Systolic blood pressure 154 mm[Hg] Dr. Paul Reynolds Work Phone: [facility] Work Phone: 09-15-2021 17:15-0400 Body temperature 96.8 [degF] Dr. Paul Reynolds Work Phone: [facility] Work Phone: 09-15-2021 17:13-0400 Body height 167.[address] Paul Reynolds Work Phone: [facility] Work Phone: 09-15-2021 17:13-0400 Body mass index (BMI) [Ratio] 33 kg/m2 Dr. Paul Reynolds Work Phone: [facility] Work Phone: 09-15-2021 17:13-0400 Body weight 92.[address] Paul Reynolds Work Phone: [facility] Work Phone: 08-15-2021 08:39-0400 Respiratory rate 18 /min Priscila Bogner PA-C Work Phone: [facility] 08-15-2021 08:25-0400 Body temperature 97.11 [degF] Priscila Bogner PA-C Work Phone: [facility] 08-15-2021 08:25-0400 Body weight 95.53 kg Priscila Bogner PA-C Work Phone: [facility] 08-15-2021 08:25-0400 Diastolic blood pressure 78 mm[Hg] Priscila Bogner PA-C Work Phone: [facility] 08-15-2021 08:25-0400 Heart rate 81 /min Priscila Bogner PA-C Work Phone: [facility] 08-15-2021 08:25-0400 SaO2% (BldA) [Mass fraction] 96 % Priscila Bogner PA-C Work Phone: [facility] 08-15-2021 08:25-0400 Systolic blood pressure 142 mm[Hg] Priscila Bogner PA-C Work Phone: [facility] 08-12-2021 09:46-0400 Diastolic blood pressure 72 mm[Hg] Erik Reynolds MD Work Phone: [facility] 08-12-2021 09:46-0400 Systolic blood pressure 130 mm[Hg] Erik Reynolds MD Work Phone: [facility] 08-12-2021 09:16-0400 Body height 167.6 cm Erik Reynolds MD Work Phone: [facility] 08-12-2021 09:16-0400 Body weight 94.85 kg Erik Reynolds MD Work Phone: [facility] 08-12-2021 09:16-0400 Heart rate 63 /min Erik Reynolds MD Work Phone: [facility] 08-03-2021 09:32-0400 Body height 167.[address] Paul Reynolds Work Phone: [facility] Work Phone: 08-03-2021 09:32-0400 Body mass index (BMI) [Ratio] 33.7 kg/m2 Dr. Paul Reynolds Work Phone: [facility] Work Phone: 08-03-2021 09:32-0400 Body weight 94.[address] Paul Reynolds Work Phone: [facility] Work Phone: 08-03-2021 09:32-0400 Diastolic blood pressure 93 mm[Hg] Dr. Paul Reynolds Work Phone: [facility] Work Phone: 08-03-2021 09:32-0400 Heart rate 70 /min Dr. Paul Reynolds Work Phone: [facility] Work Phone: 08-03-2021 09:32-0400 Respiratory rate 18 /min Dr. Paul Reynolds Work Phone: [facility] Work Phone: 08-03-2021 09:32-0400 SaO2% (BldA) [Mass fraction] 94 % Dr. Paul Reynolds Work Phone: [facility] Work Phone: 08-03-2021 09:32-0400 Systolic blood pressure 151 mm[Hg] Dr. Paul Reynolds Work Phone: [facility] Work Phone: 06-29-2021 14:30-0400 Body weight 95.71 kg Fatemeh Rogers MD Work Phone: [facility] 06-29-2021 14:30-0400 Diastolic blood pressure 74 mm[Hg] Fatemeh Rogers MD Work Phone: [facility] 06-29-2021 14:30-0400 Heart rate 78 /min Fatemeh Rogers MD Work Phone: [facility] 06-29-2021 14:30-0400 Systolic blood pressure 156 mm[Hg] Fatemeh Rogers MD Work Phone: [facility] 06-20-2021 16:00-0400 Body temperature 98.2 [degF] Dr. Paul Reynolds Work Phone: [facility] Work Phone: 06-20-2021 16:00-0400 Diastolic blood pressure 68 mm[Hg] Dr. Paul Reynolds Work Phone: [facility] Work Phone: 06-20-2021 16:00-0400 Heart rate 61 /min Dr. Paul Reynolds Work Phone: [facility] Work Phone: 06-20-2021 16:00-0400 Respiratory rate 18 /min Dr. Paul Reynolds Work Phone: [facility] Work Phone: 06-20-2021 16:00-0400 SaO2% (BldA) [Mass fraction] 94 % Dr. Paul Reynolds Work Phone: [facility] Work Phone: 06-20-2021 16:00-0400 Systolic blood pressure 159 mm[Hg] Dr. Paul Reynolds Work Phone: [facility] Work Phone: 06-19-2021 02:56-0400 Body height 167.[address] Paul Reynolds Work Phone: [facility] Work Phone: 06-19-2021 02:56-0400 Body mass index (BMI) [Ratio] 33.7 kg/m2 Dr. Paul Reynolds Work Phone: [facility] Work Phone: 06-19-2021 02:56-0400 Body weight 94.[address] Paul Reynolds Work Phone: [facility] Work Phone: 06-19-2021 02:25-0400 Body temperature 97.7 [degF] [facility] Work Phone: 06-19-2021 02:25-0400 Diastolic blood pressure 81 mm[Hg] [facility] Work Phone: 06-19-2021 02:25-0400 Heart rate 78 /min [facility] Work Phone: 06-19-2021 02:25-0400 Respiratory rate 15 /min [facility] Work Phone: 06-19-2021 02:25-0400 SaO2% (BldA) [Mass fraction] 97 % [facility] Work Phone: 06-19-2021 02:25-0400 Systolic blood pressure 157 mm[Hg] [facility] Work Phone: 06-18-2021 23:53-0400 Body height 167.64 cm [facility] Work Phone: 06-18-2021 23:53-0400 Body mass index (BMI) [Ratio] 34.8 kg/m2 [facility] Work Phone: 06-18-2021 23:53-0400 Body weight 97.9 kg [facility] Work Phone: 06-10-2021 10:13-0400 Heart rate 78 /min [facility] Work Phone: 06-10-2021 10:13-0400 Respiratory rate 17 /min [facility] Work Phone: 06-10-2021 10:13-0400 SaO2% (BldA) [Mass fraction] 99 % [facility] Work Phone: 06-10-2021 08:11-0400 Body height 167.64 cm [facility] Work Phone: 06-10-2021 08:11-0400 Body mass index (BMI) [Ratio] 32 kg/m2 [facility] Work Phone: 06-10-2021 08:11-0400 Body temperature 98.3 [degF] [facility] Work Phone: 06-10-2021 08:11-0400 Body weight 90 kg [facility] Work Phone: 06-10-2021 08:11-0400 Diastolic blood pressure 91 mm[Hg] [facility] Work Phone: 06-10-2021 08:11-0400 Systolic blood pressure 156 mm[Hg] [facility] Work Phone: Encounters Encounter Date Encounter Type Care Provider Facility Start: 12-29-2024 ambulatory Fatemeh Rogers Facilit y:[facility] Start: 12-19-2024 ambulatory [facility] Facility:[facility] Start: 12-19-2024 End: 12-19-2024 ambulatory FATEMEH ROGERS Facility:[facility] Start: 10-16-2024 End: 10-21-2024 Refill Fatemeh Rogers MD Work Phone: [facility] [place] Comment on above: Refill Request Start: 07-23-2024 End: 07-23-2024 Follow-up encounter Basilio Crouch APRN.CNP Work Phone: [facility] [place] Start: 07-16-2024 End: 07-16-2024 ambulatory BASILIO CROUCH Facility:[facility] Start: 07-16-2024 End: 07-16-2024 ambulatory BASILIO CROUCH Facility:[facility] Start: 06-30-2024 End: 06-30-2024 Refill Fatemeh Rogers MD Work Phone: [facility] [place] Comment on above: Refill Request Start: 06-03-2024 End: 07-04-2024 ambulatory Fatemeh Rogers MD Work Phone: [facility] [place] Start: 05-09-2024 End: 05-09-2024 Refill Fatemeh Rogers MD Work Phone: [facility] [place] Comment on above: Refill Request Start: 03-24-2024 End: 03-26-2024 ambulatory Smiley Nino Facility:[facility] Start: 03-12-2024 End: 03-12-2024 ambulatory FATEMEH ROGERS Facility:[facility] Start: 02-29-2024 End: 03-17-2024 Telephone encounter Fatemeh Rogers MD Work Phone: [facility] [place] Comment on above: Patient Update Start: 02-22-2024 End: 02-23-2024 Telephone encounter Fatemeh Rogers MD Work Phone: [facility] [place] Comment on above: Patient Update Start: 02-14-2024 End: 02-14-2024 Refill Erin Corona APRN.PAPER CARRIER Work Phone: [facility] [place] Comment on above: New persistent daily headache [G44.52] Start: 02-13-2024 End: 02-13-2024 Patient encounter procedure Erin Corona COMPUTER NETWORK ENGINEER.PAPER CARRIER Work Phone: [facility] [place] Comment on above: New persistent daily headache (Primary Dx); Dizziness; Balance problem; Gait abnormality Start: 02-13-2024 End: 02-13-2024 ambulatory Fatemeh Rogers MD Work Phone: [facility] [place] Comment on above: Headache Start: 01-31-2024 End: 01-31-2024 ambulatory FATEMEH ROGERS Facility:[facility] Start: 01-31-2024 End: 01-31-2024 Office outpatient visit 25 minutes Faith Mullins COMPUTER NETWORK ENGINEER.FINANCIAL SALES CONSULTANT Work Phone: [facility] [place] Comment on above: Nausea vomiting and diarrhea (Primary Dx); Hiatal hernia Start: 01-30-2024 End: 01-30-2024 ambulatory Mary Francois RN NURSE YOUTH ADVOCATE Start: 01-30-2024 End: 01-30-2024 Patient encounter procedure Mary Francois RN NURSE YOU[employer]ATE Comment on above: Clinical Update Start: 01-26-2024 End: 01-26-2024 Emergency department patient visit Fatemeh Rogers Facility:[facility] Start: 01-11-2024 End: 01-11-2024 Office outpatient visit 25 minutes Faith Mullins [place] Work Phone: [facility] [place] Comment on above: Essential hypertensi on (Primary Dx); Screening for colon cancer; Encounter for immunization; Asthma; Screening for depression; Encounter for screening examination for other mental health and behavioral disorders; Irritable bowel syndrome without diarrhea; Gastroesophageal reflux disease, unspecified whether esophagitis present; Chronic pain of right knee; Primary osteoarthritis of right knee Start: 01-11-2024 End: 01-11-2024 ambulatory FAITH MULLINS Facility:[facility] Start: 12-15-2023 End: 12-15-2023 ambulatory Andrew Moss RN NURSE YOUTH AD[employer]ATE Comment on above: Abdominal Pain Start: 10-31-2023 End: 11-01-2023 Refill Fatemeh Rogers MD Work Phone: [facility] [place] Comment on above: Refill Request Start: 08-22-2023 Telephone encounter Fatemeh borja MD Work Phone: [facility] [place] Comment on above: Medication Problem Start: 08-14-2023 Refill Fatemeh castillo MD Work Phone: [facility] [place] Comment on above: Refill Request Start: 07-30-2023 ambulatory Fatemeh castillo MD Work Phone: [facility] [place] Comment on above: Cough Start: 07-30-2023 End: 07-30-2023 Office outpatient visit 15 minutes Fatemeh Rogers MD Work Phone: [facility] [place] Comment on above: Acute asthmatic bron chitis (Primary Dx); Mild persistent asthma with acute exacerbation Start: 07-26-2023 End: 07-26-2023 Patient encounter procedure Trenton Mays PA Work Phone: [facility] Comment on above: Acute UTI (Primary D x); Burning with urination Start: 07-04-2023 ambulatory Fatemeh castillo MD Work Phone: Internal [facility] Start: 07-04-2023 End: 07-04-2023 Office outpatient visit 25 minutes Fatemeh Rogers MD Work Phone: [facility] [place] Comment on above: Mild persistent asth ma without complication (Primary Dx); Allergic rhinitis, unspecified seasonality, unspecified trigger; Essential hypertension; Paroxysmal atrial fibrillation (HCC); Bee sting allergy Start: 06-14-2023 Refill Fatemeh castillo MD Work Phone: [facility] [place] Comment on above: Refill Request Start: 06-08-2023 End: 06-08-2023 Transitional care manage srvc 14 day discharge Fatemeh Rogers MD Work Phone: [facility] [place] Comment on above: Ischemic colitis (HC C) (Primary Dx); Mild persistent asthma with acute exacerbation; Essential hypertension; Paroxysmal atrial fibrillation (HCC); Bilateral lower extremity edema; Hypokalemia; Anemia, unspecified type Start: 05-31-2023 Patient Outreach Fatemeh keita MD Work Phone: [facility] [place] Comment on above: Transition Of Care Start: 05-30-2023 Non-patient / Non-visit Dr. Rafael Rogers Work Phone: [facility] Work Phone: Start: 05-30-2023 Non-patient / Non-visit Dr. Rafael Rogers Work Phone: [facility] Start: 05-29-2023 Non-patient / Non-visit Dr. Rafael Rogers Work Phone: [facility] Work Phone: Start: 05-29-2023 Non-patient / Non-visit Dr. Rafael Rogers Work Phone: [facility] Start: 05-28-2023 Non-patient / Non-visit Dr. Rafael Rogers Work Phone: [facility] Work Phone: Start: 05-28-2023 Non-patient / Non-visit Dr. Rafael Rogers Work Phone: [facility] Start: 05-27-2023 Non-patient / Non-visit Dr. Rafael Rogers Work Phone: [facility] Work Phone: Start: 05-27-2023 Non-patient / Non-visit Dr. Rafael Rogers Work Phone: [facility] Start: 05-26-2023 Non-patient / Non-visit Dr. Rafael Rogers Work Phone: [facility] Work Phone: Start: 05-26-2023 End: 05-30-2023 Evaluation and management of inpatient [facility]emeh Rogers [facility] Work Phone: Start: 04-11-2023 Telephone encounter Fatemeh borja MD Work Phone: [facility] [place] Comment on above: f/u on DME request f rom [facility] Start: 04-06-2023 Telephone encounter Fatemeh borja MD Work Phone: [facility] [place] Comment on above: Handicap Placard Start: 04-04-2023 ambulatory Fatemeh castillo MD Work Phone: [facility] [place] Comment on above: Hemorrhoids Start: 03-20-2023 End: 03-20-2023 Patient encounter procedure Echocardiogram Wstr Work Phone: Cardiology Comment on above: Mitral valve insuffi ciency, unspecified etiology Start: 02-28-2023 ambulatory NONE PHYSICIAN Facility :[facility] Start: 02-27-2023 End: 02-27-2023 Office outpatient visit 25 minutes Fatemeh Rogers MD Work Phone: [facility] [place] Comment on above: Moderate persistent asthma with acute exacerbation (Primary Dx); Atrial fibrillation with rapid ventricular response (HCC); Diarrhea, unspecified type Start: 02-20-2023 Non-patient / Non-visit Dr. Rafael Rogers Work Phone: [facility] Work Phone: Start: 02-19-2023 Non-patient / Non-visit Dr. Rafael Rogers Work Phone: [facility] Work Phone: Start: 02-18-2023 End: 02-18-2023 Non-patient / Non-visit Dr. Fatemeh Rogers Work Phone: [facility] Work Phone: Start: 02-18-2023 Non-patient / Non-visit Dr. Rafael Rogers Work Phone: [facility] Work Phone: Start: 02-17-2023 End: 02-17-2023 Non-patient / Non-visit Dr. Fatemeh Rogers Work Phone: [facility] Work Phone: Start: 02-17-2023 Non-patient / Non-visit Dr. Rafael Rogers Work Phone: [facility] Work Phone: Start: 02-17-2023 End: 02-20-2023 Evaluation and management of inpatient [facility] Work Phone: Start: 02-15-2023 Telephone encounter Fatemeh borja MD Work Phone: [facility] [place] Comment on above: Patient Update Start: 02-10-2023 End: 02-10-2023 Subsequent hospital visit by physician [facility] Work Phone: Radiology Comment on above: Bronchitis [J40] Start: 02-10-2023 End: 02-10-2023 Patient encounter procedure Felicity Snow PA-C Work Phone: [facility] Comment on above: Bronchitis (Primary Dx) Start: 01-01-2023 End: 01-01-2023 Office outpatient visit 25 minutes Faith Mullins APRN.FINANCIAL SALES CONSULTANT Work Phone: [facility] [place] Comment on above: Asthma (Primary Dx); Need for shingles vaccine; Encounter for immunization; Essential hypertension; Irritable bowel syndrome without diarrhea; Gastroesophageal reflux disease, unspecified whether esophagitis present; Hyperlipidemia, mixed; Elevated glucose; Chronic left shoulder pain Start: 12-14-2022 End: 12-14-2022 Patient encounter procedure Dwight Tobar MD Work Phone: Orthopaedics Comment on above: Right wrist pain (Pr imary Dx); Primary osteoarthritis of first carpometacarpal joint of right hand Start: 11-29-2022 End: 11-29-2022 Patient encounter procedure [facility] Work Phone: Start: 11-25-2022 End: 11-25-2022 Patient encounter procedure Katie Canas APRN.PAPER CARRIER Work Phone: [facility] Comment on above: Infection of right e ye (Primary Dx) Start: 11-16-2022 End: 11-16-2022 Subsequent hospital visit by physician [facility] Work Phone: Radiology Comment on above: Acute cough [R05.1] Start: 11-16-2022 End: 11-16-2022 Patient encounter procedure Erasmo Walter APRN.PAPER CARRIER Work Phone: [facility] Comment on above: URI, acute (Primary Dx); Acute cough; History of asthma Start: 11-15-2022 Orders Only Dwight Tobar MD Work Phone: Appointment Center Comment on above: Pain (Primary Dx) Start: 11-04-2022 End: 11-04-2022 Emergency department patient visit Dr. Fatemeh Rogers Work Phone: [facility] Work Phone: Start: 09-07-2022 End: 09-07-2022 Office outpatient visit 25 minutes Paul Win PAPER CARRIER Work Phone: [facility] Comment on above: Swelling of gland of right eyelid (Primary Dx) Start: 08-23-2022 Non-patient / Non-visit Dr. Rafael Rogers Work Phone: [facility] Start: 08-22-2022 End: 08-22-2022 Subsequent hospital visit by physician [facility] Work Phone: Radiology Comment on above: Lumbar radiculopathy [M54.16] Start: 08-22-2022 End: 08-22-[address] Fatemeh Rogers Work Phone: [facility] Work Phone: Start: 08-22-2022 End: 08-22-[address] [facility]emeh Rogers [facility] Work Phone: Start: 08-22-2022 Non-patient / Non-visit Dr. Rafael Rogers Work Phone: [facility] Start: 08-15-2022 End: 08-15-[address] Ftaemeh Rogers Work Phone: [facility] Work Phone: Start: 08-15-2022 End: 08-15-[address] Fatemeh Rogers Work Phone: [facility] Start: 08-12-2022 End: 08-12-[address] Fatemeh Rogers Work Phone: [facility] Work Phone: Start: 08-12-2022 End: 08-12-[address] Fatemeh Rogers Work Phone: [facility] Start: 08-10-2022 End: 08-10-2022 Patient encounter procedure Francesca Peñaloza PA-C Work Phone: [facility] Comment on above: Lumbar radiculopathy (Primary Dx); Sacroiliitis (HCC); Left foot drop Start: 07-26-2022 ambulatory Fatemeh castillo MD Work Phone: Internal Medicine [facility] Start: 06-30-2022 End: 06-30-2022 Office outpatient visit 25 minutes Fatemeh Rogers MD Work Phone: [facility] [place] Comment on above: Essential hypertensi on (Primary Dx); Hyperlipidemia, mixed; Environmental allergies; Mild persistent asthma with acute exacerbation; Need for second booster dose of COVID-19 vaccine; Chronic bilateral low back pain with bilateral sciatica; Sacroiliitis (HCC) Start: 06-07-2022 End: 06-07-2022 ambulatory Kristine O'Dale PT [facility] Comment on above: Sacroiliitis (HCC) ( Primary Dx) Start: 05-26-2022 End: 05-26-2022 ambulatory Kelley Villa SILK WASHING MACHINE OPERATOR Work Phone: [facility] Comment on above: Sacroiliitis (HCC) ( Primary Dx) Start: 05-23-2022 Telephone encounter Neurology Provid er Neurology Comment on above: Appointment Reschedu led Start: 05-16-2022 End: 05-16-2022 Patient encounter procedure Nadya Perry MD Work Phone: [facility] Comment on above: 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 Fatemeh Rogers Work Phone: [facility] Start: 04-11-2022 End: 04-11-2022 Office outpatient visit 25 minutes Faith Mullins COMPUTER NETWORK ENGINEER.FINANCIAL SALES CONSULTANT Work Phone: [facility] [place] Comment on above: Sacroiliitis (HCC) ( Primary Dx); Chronic bilateral low back pain with bilateral sciatica Start: 04-09-2022 ambulatory Rosa Isela gates MD Work Phone: [facility] Start: 03-29-2022 ambulatory Rachana Oakley MA [facility] [place] Comment on above: Population Health Na vigation Outreach ([employer] care gaps) Start: 03-13-2022 End: 03-13-[address] Paul Reynolds Work Phone: [facility] Work Phone: Start: 03-13-2022 End: 03-13-[address] Paul Reynolds Work Phone: [facility] Start: 02-07-2022 Telephone encounter Fatemeh borja MD Work Phone: [facility] [place] Comment on above: Letter Start: 01-24-2022 ambulatory Makenna Bishop MA [facility] [place] Comment on above: Population Health Na vigation Outreach ([employer] Medicare/) Start: 01-24-2022 End: 01-24-2022 Emergency department patient visit Dr. Paul Reynolds Work Phone: [facility] Start: 01-10-2022 End: 01-10-2022 Office outpatient visit 25 minutes Faith Mullins COMPUTER NETWORK ENGINEER.FINANCIAL SALES CONSULTANT Work Phone: [facility] [place] Comment on above: Sacroiliitis (HCC) ( Primary Dx); Foot pain, left Start: 01-06-2022 Telephone encounter Fatemeh borja MD Work Phone: [facility] [place] Comment on above: Patient Update Start: 01-06-2022 End: 01-06-2022 Emergency department patient visit Dr. Paul Reynolds Work Phone: [facility] Start: 12-30-2021 Orders Only Faith BARNESFINANCIAL SALES CONSULTANT Work Phone: [facility] [place] Start: 12-29-2021 Refill Erik barrios MD Work Phone: Internal Medicine [facility] Comment on above: Refill Request Start: 12-27-2021 End: 12-27-[address] Paul Reynolds Work Phone: [facility] Start: 12-23-2021 Telephone encounter Lavern Barcenas Ayleen Comment on above: Social Work Services Start: 12-22-2021 End: 12-22-2021 Patient encounter procedure Faith Mullins APRN.FINANCIAL SALES CONSULTANT Work Phone: [facility] [place] Comment on above: Asthma (Primary Dx); Need [...] reflux disease, unspecified whether esophagitis present Start: 12-08-2021 End: 12-08-[address] Paul Reynolds Work Phone: [facility] Work Phone: Start: 12-08-2021 End: 12-08-[address] Paul Reynolds Work Phone: [facility] Start: 11-30-2021 ambulatory Erik barrios MD Work Phone: Internal Medicine [facility] Start: 11-24-2021 Non-patient / Non-visit Dr. Lazaro Reynolds Work Phone: [facility] Start: 11-24-2021 End: 11-24-2021 Admission to same day surgery center Dr. Paul Reynolds Work Phone: [facility] Start: 11-24-2021 End: 11-24-[address] Paul Reynolds Work Phone: [facility] Work Phone: Start: 11-21-2021 Telephone encounter Erik Reynolds MD Work Phone: [facility] Comment on above: Results ([facility] 11/18/2021) Received Outside [facility] Records ([facility] office summary 11/18/2021) Start: 11-18-2021 End: 11-18-[address] Paul Reynolds Work Phone: [facility] Work Phone: Start: 11-18-2021 End: 11-18-[address] Paul Reynolds Work Phone: [facility] Start: 10-13-2021 Telephone encounter Felicity william PA-C Work Phone: [facility] Comment on above: Results Start: 10-13-2021 End: 10-13-2021 Subsequent hospital visit by physician [facility] Work Phone: Radiology Comment on above: Pain in right lower leg [M79.661] Start: 10-11-2021 End: 10-11-2021 Subsequent hospital visit by physician [facility] Work Phone: Radiology Comment on above: Pain in right lower leg [M79.661] Start: 10-11-2021 End: 10-11-2021 Patient encounter procedure Kristine Augustin COMPUTER NETWORK ENGINEER.PAPER CARRIER Work Phone: [facility] Comment on above: Pain in right lower leg (Primary Dx); Fall, initial encounter Start: 10-05-2021 End: 10-05-[address] Paul Reynolds Work Phone: [facility]Neu[facility] Start: 10-05-2021 Non-patient / Non-visit Dr. Lazaro Reynolds Work Phone: [facility] Start: 09-23-2021 End: 09-23-[address] Paul Reynolds Work Phone: [facility] Gastroenterology Start: 09-17-2021 Non-patient / Non-visit Dr. Lazaro Reynolds Work Phone: [facility] Inpatient Physicians Start: 09-17-2021 Non-patient / Non-visit Dr. Lazaro Reynolds Work Phone: [facility] Start: 09-16-2021 Non-patient / Non-visit Dr. Lazaro Reynolds Work Phone: [facility] Start: 09-16-2021 Telephone encounter Erik Reynolds MD Work Phone: [facility] Comment on above: Received Outside Med ical Records ([facility] 09/15/2021 Emergency room summary) Received Outside Med ical Records ([facility] CT Abdomen and Pelvid 09/15/2021) Start: 09-16-2021 Non-patient / Non-visit Dr. Lazaro Reynolds Work Phone: [facility] Inpatient Physicians Start: 09-15-2021 End: 09-17-2021 Non-patient / Non-visit Dr. Paul Reynolds Work Phone: [facility] Inpatient Physicians Start: 09-15-2021 End: 09-17-2021 Evaluation and management of inpatient Dr. Paul Reynolds Work Phone: [facility] Start: 09-15-2021 End: 09-15-2021 Emergency department patient visit Dr. Paul Reynolds Work Phone: [facility] Start: 09-06-2021 Telephone encounter Erik Reynolds MD Work Phone: [facility] Comment on above: Received Outside Med ical Records ([facility] cardiovascular) Start: 09-06-2021 Non-patient / Non-visit Dr. Lazaro Reynolds Work Phone: [facility] Start: 09-06-2021 End: 09-06-[address] Paul Reynolds Work Phone: [facility] Start: 09-05-2021 Refill Erik barrios MD Work Phone: [facility] Comment on above: Refill Request Start: 09-01-2021 Refill Erik barrios MD Work Phone: [facility] Comment on above: Refill Request Start: 08-24-2021 ambulatory Erik barrios MD Work Phone: [facility] [place] Start: 08-15-2021 End: 08-15-2021 Office outpatient visit 15 minutes Priscila Contreras PA-C Work Phone: [facility] Comment on above: Swelling of gland of right eyelid (Primary Dx) Start: 08-12-2021 End: 08-12-2021 Patient encounter procedure Erik Reynolds MD Work Phone: [facility] Comment on above: Generalized weakness (Primary Dx); Primary osteoarthritis of right knee; Hyperglycemia; Abdominal wall hematoma, sequela; Bee sting allergy; Hyperlipidemia, mixed; Atrial fibrillation with rapid ventricular response (HCC); Essential hypertension; Gastroesophageal reflux disease, unspecified whether esophagitis present; Screening for lipid disorders Start: 08-08-2021 Telephone encounter Erik Reynolds MD Work Phone: [facility] Comment on above: Received Outside Med ical Records ([facility]) Start: 08-03-2021 End: 08-03-[address] Paul Reynolds Work Phone: [facility] Heart Group Start: 07-27-2021 Telephone encounter Erik Reynolds MD Work Phone: [facility] Comment on above: Received Outside Med ical Records (discharge summary from [facility]) Start: 07-18-2021 Telephone encounter Erik Reynolds MD Work Phone: Family Practice Comment on above: Received Outside Med ical Records ([facility] OT discharge 07/14/2021) Orders ([facility] PT and JUDICIAL LAW CLERK evaluation 07/14/2021) order for PT (review ed and signed by PCP faxed to [facility] home [facility] services) Start: 07-07-2021 Telephone encounter Erik Reynolds MD Work Phone: Family Practice Comment on above: request for sign off on orders (from [facility]) Start: 07-05-2021 Telephone encounter Erik Reynolds MD Work Phone: Family Practice Comment on above: Orders (request for sign off from PCP from [facility] services ) Start: 07-04-2021 Telephone encounter Erik Reynolds MD Work Phone: Family Practice Comment on above: Patient Update (from [facility], pt does not want OT at this time FYI) Patient Update Start: 07-01-2021 Telephone encounter Erik Reynolds MD Work Phone: Family Medicine Comment on above: Received Outside Med ical Records (Missed visit [facility] 06/24/2021) Start: 06-30-2021 Telephone encounter Erik Reynolds MD Work Phone: Family Medicine Comment on above: Received Outside Med ical Records ([facility] certification and plan of care 06/21/2021 - 08/19/2021) Start: 06-29-2021 End: 06-29-2021 Office outpatient visit 25 minutes Fatemeh Rogers MD Work Phone: [facility] [place] Comment on above: Abdominal wall hemat gino, sequela (Primary Dx); Adhesive capsulitis of left shoulder; AF (paroxysmal atrial fibrillation) (HCC); Need for COVID-19 vaccine Start: 06-22-2021 Telephone encounter Erik Reynolds MD Work Phone: Family Practice Comment on above: Patient Request Start: 06-21-2021 Telephone encounter Erik Reynolds MD Work Phone: [facility] Comment on above: Received Outside Med ical Records ([facility] Discharge Summary 06/20/2021) Start: 06-20-2021 Telephone encounter Erik Reynolds MD Work Phone: [facility] Comment on above: Received Outside Med ical Records ([facility] Emergency Dept Summary 06/19/2021) Received Outside Med ical Records ([facility] Discharge instructions 06/20/2021) Home Care Management Start: 06-20-2021 Non-patient / Non-visit Dr. Lazaro Reynolds Work Phone: [facility] Inpatient Physicians Start: 06-19-2021 End: 06-20-2021 Evaluation and management of inpatient [facility] 3 Start: 06-19-2021 Non-patient / Non-visit Dr. Lazaro Reynolds Work Phone: [facility] Inpatient Physicians Start: 06-13-2021 Telephone encounter Erik Reynolds MD Work Phone: [facility] Comment on above: Received Outside Med ical Records ([facility] Imagining 06/10/2021) Received Outside Med ical Records ([facility] Emergnecy dept summary 06/10/2021) Start: 06-10-2021 ambulatory Do [facility] [employer] Comment on above: Arm Injury Start: 06-10-2021 End: 06-10-2021 Emergency department patient visit [facility] Start: 06-07-2021 ambulatory Astrid Monae MA [facility] Comment on above: Population Health Na vigation Outreach (Care gap) Start: 05-21-2021 Refill Erik barrios MD Work Phone: [facility] Comment on above: Refill Request Start: 08-03-2020 End: 08-03-2020 Subsequent hospital visit by physician Xr [facility] Work Phone: Radiology Comment on above: Injury of left ankle , initial encounter [G69.912A] Start: 01-07-2020 End: 01-07-2020 Subsequent hospital visit by physician Arnaldo [facility] Alex Work Phone: Radiology Comment on above: Acute pain of left s johanne [M25.512] Start: 10-09-2016 End: 10-09-2016 Emergency department patient visit Harman Summers Facility:[facility] Procedures Date Procedure Procedure Detail Performing Clinician Start: 02-14-2024 Ct head/brain w/o co ntrast material Erin Corona COMPUTER NETWORK ENGINEER.PAPER CARRIER Work Phone: Start: 01-11-2024 PFIZER-BIONTECH COVI D-19 VACCINE AGE 12+ YR (COMIRNATY) Faith Mullins COMPUTER NETWORK ENGINEER.FINANCIAL SALES CONSULTANT Work Phone: Start: 01-11-2024 Adult depression scr eening assessment Faith Mullins COMPUTER NETWORK ENGINEER.FINANCIAL SALES CONSULTANT Work Phone: Start: 07-26-2023 Urnls dip stick/tabl et rgnt auto w/o microscopy Trenton Mays PA Work Phone: Start: 05-26-2023 Computed tomography of abdomen and pelvis with intravenous contrast Dr. Fatemeh Rogers Work Phone: Start: 03-20-[facility]23 [facility]-mode compl spec&colr d Faith Mullins COMPUTER NETWORK ENGINEER.FINANCIAL SALES CONSULTANT Work Phone: Start: 02-18-2023 Investigation of tra nsfusion reaction Dr. Fatemeh Rogers Work Phone: Start: 02-18-2023 Legionella pneumophi la antigen assay Dr. Fatemeh Rogers Work Phone: Start: 02-18-2023 Respiratory microbia l culture Dr. Fatemeh Rogers Work Phone: Start: 02-18-2023 Streptococcus pneumo niae Antigen (M Dr. Fatemeh Rogers Work Phone: Start: 02-17-2023 SARS-CoV-2 & FLU Ant igen (Rapid) Start: 02-17-2023 Plain chest X-ray Start: 02-10-2023 Radiologic exam ches t 2 views Felicity Snow PA-C Work Phone: Start: 01-01-2023 INFLUENZA VACCINE, P RSV FREE, AGE 65+ YR, HIGH DOSE, QUADRIVALENT (FLUZONE HIGH-DOSE) Faith Mullins COMPUTER NETWORK ENGINEER.FINANCIAL SALES CONSULTANT Work Phone: Start: 01-01-2023 [employer] COVI D-19 VACCINE (2022- SEASON) AGE 12+ YR Faith Mullins COMPUTER NETWORK ENGINEER.FINANCIAL SALES CONSULTANT Work Phone: Start: 11-29-2022 Anaerobic microbial culture Start: 11-29-2022 Investigation of tra nsfusion reaction Start: 11-29-2022 Microbial culture, routine Start: 11-16-2022 COVID & INFLUENZA A/ B & RSV NAAT, ROUTINE Erasmo Walter APRN.[facility] Work Phone: Start: 11-16-2022 Iadna respiratry pro be & rev trnscr 3-5 targets Erasmo Walter COMPUTER NETWORK ENGINEER.PAPER CARRIER Work Phone: Start: 11-16-2022 Sars-cov-2 detection by dna/rna Erasmo Walter APRN.[facility] Work Phone: Start: 11-16-2022 Radiologic exam ches t 2 views Erasmo Walter APRN.PAPER CARRIER Work Phone: Start: 11-04-2022 Plain x-ray of wrist Dr Gio Rogers Work Phone: Start: 08-22-2022 Radex spine lumbosac ral minimum 4 views Francesca Peñaloza PA-C Work Phone: Start: 08-22-2022 Cardiovascular stres s test using pharmacologic stress agent Dr. Fatemeh Rogers Work Phone: Start: 08-15-2022 [address]ium difficil e detection Dr. Fatemeh Rogers Work Phone: Start: 08-15-2022 Giardia Antigen (CARITO) Luisa Rogers Work Phone: Start: 08-15-[address] Fatemeh Rogers Work Phone: Start: 08-15-2022 Measurement of occul t blood in stool specimen using immunoassay Dr. Fatemeh Rogers Work Phone: Start: 08-15-[address] Fatemeh Rogers Work Phone: Start: 08-15-2022 Ova OR parasites identification Dr. Fatemeh Rogers Work Phone: Start: 08-12-2022 MRI of joint of lowe r extremity Dr. Fatemeh Rogers Work Phone: Start: 06-30-2022 PFIZER-BIONTECH COVI D-19 BIVALENT VACCINE, AGE 12+ YR Fatemeh Rogers MD Work Phone: Start: 06-30-2022 Lipid 1996 panel - S jaqueline or Plasma Dwight Tobar MD Work Phone: Start: 05-16-2022 Probe lacrimal canal iculi w/wo irrigation Miguel March COMPUTER NETWORK ENGINEER.PAPER CARRIER Work Phone: Start: 03-13-2022 Biopsy/Inj or Needle Placement Dr. Paul Reynolds Work Phone: Start: 01-24-2022 End: 01-24-2022 Radiologic examination of knee Dr. Paul Reynolds Work Phone: Start: 01-06-2022 Radiography of sacrococcygeal spine Dr. Paul Reynolds Work Phone: Start: 12-27-[address] Paul Reynolds Work Phone: Start: 12-27-[address] Paul Reynolds Work Phone: Start: 12-22-2021 INFLUENZA SEASONAL QUADRIVALENT HIGH DOSE AGE 65+ Faith Mullins COMPUTER NETWORK ENGINEER.FINANCIAL SALES CONSULTANT Work Phone: Start: 12-22-2021 PFIZER-BIONTECH COVI D-19 BIVALENT BOOSTER VACCINE, AGE 12+ YR Faith Mullins COMPUTER NETWORK ENGINEER.FINANCIAL SALES CONSULTANT Work Phone: Start: 11-24-[address] Susan Reynolds Work Phone: Start: 11-18-2021 CBC + DIFF [facility] Provid er Start: 10-13-2021 Dup-scan xtr veins unilateral/limited study Kristine Augustin COMPUTER NETWORK ENGINEER.PAPER CARRIER Work Phone: Start: 10-11-2021 Radiologic examinati on tibia & fibula 2 views Kristinekenneth Augustin COMPUTER NETWORK ENGINEER.PAPER CARRIER Work Phone: Start: 09-15-2021 CT of abdomen and pe lvis without contrast Dr. Paul Reynolds Work Phone: Start: 08-12-2021 Adult depression scr eening assessment Erik Reynolds MD Work Phone: Start: 06-29-2021 PFIZER-BIONTECH COVI D-19 VACCINE, AGE 12+ YR (SOLANO TOP) Fatemeh Rogers MD Work Phone: Start: 06-19-2021 Computed tomography of abdomen and pelvis with intravenous contrast Start: 06-10-2021 CT of head without contrast Start: 06-10-2021 Plain x-ray of wrist Start: 06-10-2021 Radiologic examinati on of knee Start: 06-10-2021 X-ray of radius and ulna Start: 08-03-2020 Radex ankle complete minimum 3 views Dimas Osborn COMPUTER NETWORK ENGINEER.PAPER CARRIER Work Phone: Start: 01-07-2020 Radex shoulder compl ete minimum 2 views Dimas Osborn COMPUTER NETWORK ENGINEER.PAPER CARRIER Work Phone: Start: 08-30-2018 Adult depression scr eening assessment Erik Reynolds MD Work Phone: Start: 05-29-2018 Colonoscopy Erik bravo MD Work Phone: Start: 06-26-2016 Mammography Erik bravo MD Work Phone: Clostridium difficil e detection Dr. Fatemeh Rogers Work Phone: Nucleic acid assay Dr. Fatemeh Rogers Work Phone: Plan of Treatment Date Care Activity Detail Author Start: 07-17-2027 Diabetes Screening Diabetes Screening [facility] Start: 07-01-2027 Lipid 1996 panel - Serum or Plasma Lipid Screening [facility] Start: 07-01-2027 Lipid panel Lipid Screening [facility] Start: 07-01-2027 LIPID SCREEN LIPID SCREEN [facility] Start: 02-13-2027 Diabetes Screening Diabetes Screening [facility] Start: 08-19-2026 LIPID SCREEN LIPID SCREEN [facility] Start: 03-19-2026 Diabetes Screening Diabetes Screening [facility] Start: 08-11-2025 Urine microalbumin profile [facility] Start: 07-16-2025 Annual PCP Team Chronic Disease Visit Annual PCP Team Chronic Disease Visit [facility] Start: 07-16-2025 BP Controlled (<130/80) BP Controlled (<130/80) [facility] Start: 06-30-2025 DIABETES SCREEN DIABETES SCREEN [facility] Start: 06-30-2025 Diabetes Screening Diabetes Screening [facility] Start: 03-12-2025 Screening for malignant neoplasm of colon Fecal Occult Blood [facility] Start: 02-12-2025 Annual PCP Team Chronic Disease Visit Annual PCP Team Chronic Disease Visit [facility] Start: 02-12-2025 BP Controlled (<130/80) BP Controlled (<130/80) [facility] Start: 01-30-2025 BP Controlled (<130/80) BP Controlled (<130/80) [facility] Start: 01-30-2025 End: 01-30-2025 Patient encounter procedure 01/30/2025 9:40 AM EST Office Visit [facility] [address] [place] [address] Faith Mullins APRN.FINANCIAL SALES CONSULTANT [address] [place] [address] 6 month f/u [facility] Comment on above: 6 month f/u Start: 01-10-2025 Anxiety Screening Anxiety Screening [facility] Start: 01-10-2025 BP Controlled (<130/80) BP Controlled (<130/80) [facility] Start: 01-10-2025 Depression Screening Depression Screening [facility] Start: 10-27-2024 [facility]enza [facility] Start: 08-19-2024 DIABETES SCREEN DIABETES SCREEN [facility] Start: 07-29-2024 Annual PCP Team Chronic Disease Visit Annual PCP Team Chronic Disease Visit [facility] Start: 07-29-2024 BP Controlled (<130/80) BP Controlled (<130/80) [facility] in Start: 07-10-2024 Covid-19 Vaccine () Covid-19 Vaccine () [facility] Start: 07-10-2024 End: 07-10-2024 Patient encounter procedure 07/10/2024 10:00 AM EDT Office Visit [facility] [address] [place], [place] [id number] Faith Mullins APRN.FINANCIAL SALES CONSULTANT [address] [place] [address] 6 month follow up [facility] Comment on above: 6 month follow up Start: 07-04-2024 End: 07-04-2024 Patient encounter procedure [facility] Comment on above: 6 month follow up Start: 07-03-2024 Annual PCP Team Chronic Disease Visit Annual PCP Team Chronic Disease Visit [facility] Start: 06-26-2024 End: 12-26-2024 CBC W Auto Differential panel - Blood COMPLETE BLOOD COUNT AND DIFFERENTIAL Lab Routine Essential hypertension Expected: 06/26/2024 (Approximate), Expires: 12/26/2024 [facility] Comment on above: Expected: 06/26/2024 (Approximate), Expi res: 12/26/2024 Start: 06-26-2024 End: 12-26-2024 Comprehensive metabolic 2000 panel - Serum or Plasma COMPREHENSIVE METABOLIC PANEL Lab Routine Essential hypertension Expected: 06/26/2024 (Approximate), Expires: 12/26/2024 [facility] Comment on above: Expected: 06/26/2024 (Approximate), Expi res: 12/26/2024 Start: 06-26-2024 End: 12-26-2024 Lipid 1996 panel - Serum or Plasma LIPID PANEL BASIC Lab Routine Essential hypertension Expected: 06/26/2024 (Approximate), Expires: 12/26/2024 [facility] Comment on above: Expected: 06/26/2024 (Approximate), Expi res: 12/26/2024 Start: 06-07-2024 Annual PCP Team Chronic Disease Visit Annual PCP Team Chronic Disease Visit [facility] Start: 06-07-2024 BP Controlled (<130/80) BP Controlled (<130/80) [facility] Start: 04-17-2024 End: 07-17-2024 CBC panel - Blood by Automated count COMPLETE BLOOD COUNT Lab Routine Anemia, unspecified type Expected: 04/17/2024 (Approximate), Expires: 07/17/2024 [facility] Work Phone: Comment on above: Expected: 04/17/2024 (Approximate), Expi res: 07/17/2024 Start: 04-17-2024 End: 07-17-2024 Ferritin [Mass/volume] in Serum or Plasma FERRITIN Lab Routine Anemia, unspecified type Expected: 04/17/2024 (Approximate), Expires: 07/17/2024 [facility] Comment on above: Expected: 04/17/2024 (Approximate), Expi res: 07/17/2024 Start: 04-17-2024 End: 07-17-2024 Iron and Iron binding capacity panel - Serum or Plasma IRON AND TIBC Lab Routine Anemia, unspecified type Expected: 04/17/2024 (Approximate), Expires: 07/17/2024 [facility] Comment on above: Expected: 04/17/2024 (Approximate), Expi res: 07/17/2024 Start: 04-14-2024 End: 04-14-2024 ambulatory 04/14/2024 8:00 AM EST Results Only [facility] [address] [facility] [place] [address] lab [facility] Comment on above: lab Start: 03-13-2024 Screening for malignant neoplasm of colon Colorectal Cancer Screening [facility] Start: 02-28-2024 Annual PCP Team Chronic Disease Visit Annual PCP Team Chronic Disease Visit [facility] Start: 02-27-2024 Advance Directive Discussion Advance Directive Discussion [facility] Start: 02-27-2024 Medicare Advantage Annual Wellness Visit Medicare Advantage Annual Wellness Visit [facility] Start: 02-27-2024 Screening for malignant neoplasm of colon Colorectal Cancer Screening [facility] Comment on above: Postponed from 1996 (Postponed To Appropriate Date) Start: 02-14-2024 End: 05-15-2024 CBC panel - Blood by Automated count COMPLETE BLOOD COUNT Lab Routine Anemia, unspecified type Expected: 02/14/2024, Expires: 05/15/2024 [facility] Comment on above: Expected: 02/14/2024, Expires: Start: 02-14-2024 End: 05-15-2024 Cobalamin (Vitamin B12) [Mass/volume] in Serum or Plasma VITAMIN B12 Lab Routine Anemia, unspecified type Expected: 02/14/2024, Expires: 05/15/2024 [facility] Comment on above: Expected: 02/14/2024, Expires: Start: 02-14-2024 End: 05-15-2024 Ferritin [Mass/volume] in Serum or Plasma FERRITIN Lab Routine Anemia, unspecified type Expected: 02/14/2024, Expires: 05/15/2024 [facility] Comment on above: Expected: 02/14/2024, Expires: Start: 02-14-2024 End: 05-15-2024 Folate [Mass/volume] in Serum or Plasma FOLATE, SERUM Lab Routine Anemia, unspecified type Expected: 02/14/2024, Expires: 05/15/2024 [facility] Comment on above: Expected: 02/14/2024, Expires: Start: 02-14-2024 End: 05-15-2024 Hemoglobin.gastrointestin al.lower [Presence] in Stool by Immunoassay IMMUNOCHEMICAL FECAL OCCULT BLOOD TEST Lab Routine Anemia, unspecified type Expected: 02/14/2024 (Approximate), Expires: 05/15/2024 [facility] Comment on above: Expected: 02/14/2024 (Approximate), Expi res: 05/15/2024 Start: 02-14-2024 End: 05-15-2024 Iron and Iron binding capacity panel - Serum or Plasma IRON AND TIBC Lab Routine Anemia, unspecified type Expected: 02/14/2024, Expires: 05/15/2024 [facility] Work Phone: Comment on above: Expected: 02/14/2024, Expires: Start: 02-14-2024 End: 02-14-2024 Patient encounter procedure 02/14/2024 11:40 AM EST Appointment Cat Scan [address] [place] [address] New persistent daily headache [G44.52] Cat Scan Comment on above: New persistent daily headache [G44.52] Start: 02-13-2024 End: 02-13-2024 Patient encounter procedure 02/13/2024 6:40 PM EST Office Visit [facility] [place] [address] [place] [address] Erin Corona, COMPUTER NETWORK ENGINEER.PAPER CARRIER [address] [place] [address] Headache for 1 month. See triage. [facility] Comment on above: Headache for 1 month. See triage. Start: 02-13-2024 End: 05-14-2024 C reactive protein [Mass/volume] in Serum or Plasma C-REACTIVE PROTEIN Lab Routine New persistent daily headache Expected: 02/13/2024, Expires: 05/14/2024 [facility] Comment on above: Expected: 02/13/2024, Expires: Start: 02-13-2024 End: 05-14-2024 CBC panel - Blood by Automated count COMPLETE BLOOD COUNT Lab STAT New persistent daily headache Dizziness Expected: 02/13/2024, Expires: 05/14/2024 [facility] [facility] Comment on above: Expected: 02/13/2024, Expires: Start: 02-13-2024 End: 05-14-2024 Comprehensive metabolic 2000 panel - Serum or Plasma COMPREHENSIVE METABOLIC PANEL Lab STAT New persistent daily headache Dizziness Expected: 02/13/2024, Expires: 05/14/2024 [facility] Comment on above: Expected: 02/13/2024, Expires: Start: 02-13-2024 End: 05-14-2024 Erythrocyte sedimentation rate SEDIMENTATION RATE, WESTERGREN Lab Routine New persistent daily headache Expected: 02/13/2024, Expires: 05/14/2024 [facility] Comment on above: Expected: 02/13/2024, Expires: Start: 01-31-2024 End: 01-31-2024 Patient encounter procedure 01/31/2024 10:40 AM EST Office Visit Internal Medicine Alex [address] [place] [address] Faith Mullins APRN.[employer]CIAL [employer]ES CONSULTANT [address] [place] [address] [facility] 01/26/24 - GI upset/vomiting [facility] Comment on above: [facility] 01/26/24 - GI upset/vomiting Start: 01-11-2024 End: 01-11-2024 Patient encounter procedure [facility] Comment on above: 6 month follow up Start: 01-04-2024 Screening for malignant neoplasm of colon Colorectal Cancer Screening [facility] Comment on above: Postponed from 1996 (Declined at t his time) Start: 01-02-2024 BP Controlled (<130/80) BP Controlled (<130/80) [facility] Start: 11-26-2023 BP Controlled (<130/80) BP Controlled (<130/80) [facility] Start: 10-28-2023 Covid-19 Vaccine ( season) Covid-19 Vaccine () [facility] Start: 10-28-2023 Covid-19 Vaccine ( season) Covid-19 Vaccine ( season) [facility] Start: 10-28-2023 Influenza vaccination Influenza Vaccine (#1) [facility] Start: 09-27-2023 Covid-19 Vaccine ( season) Covid-19 Vaccine () [facility] Comment on above: Postponed from 05/02/2023 (Declined at t his time) Start: 09-08-2023 BP CONTROLLED (<130/80) BP CONTROLLED (<130/80) [facility] Start: 08-11-2023 BP CONTROLLED (<130/80) BP CONTROLLED (<130/80) [facility] Start: 07-30-2023 LIPID SCREEN LIPID SCREEN [facility] Start: 07-04-2023 End: 07-04-2023 Patient encounter procedure 07/04/2023 9:00 AM EDT Office Visit Internal Medicine Alex [address] [place], [place] [id number] Fatemeh Rogers MD [address] [facility] [place] [address] 6 month follow up Internal Medicine Alex Comment on above: 6 month follow up Start: 07-01-2023 ANNUAL PCP TEAM CHRONIC DISEASE VISIT ANNUAL PCP TEAM CHRONIC DISEASE VISIT [facility] Start: 07-01-2023 BP CONTROLLED (<130/80) BP CONTROLLED (<130/80) [facility] Start: 06-25-2023 End: 12-24-2023 CBC W Auto Differential panel - Blood CBC + DIFF Lab Routine Essential hypertension Expected: 06/25/2023 (Approximate), Expires: 12/24/2023 [facility] Work Phone: Comment on above: Expected: 06/25/2023 (Approximate), Expi res: 12/24/2023 Start: 06-25-2023 End: 12-24-2023 Comprehensive metabolic 2000 panel - Serum or Plasma COMP METABOLIC PANEL Lab Routine Essential hypertension Expected: 06/25/2023 (Approximate), Expires: 12/24/2023 [facility] Work Phone: Comment on above: Expected: 06/25/2023 (Approximate), Expi res: 12/24/2023 Start: 06-25-2023 End: 12-24-2023 Hemoglobin A1c in Blood HGB A1C Lab Routine Elevated glucose Expected: 06/25/2023 (Approximate), Expires: 12/24/2023 [facility] Work Phone: Comment on above: Expected: 06/25/2023 (Approximate), Expi res: 12/24/2023 Start: 06-25-2023 End: 12-24-2023 Lipid 1996 panel - Serum or Plasma LIPID PANEL BASIC Lab Routine Hyperlipidemia, mixed Expected: 06/25/2023 (Approximate), Expires: 12/24/2023 [facility] Work Phone: Comment on above: Expected: 06/25/2023 (Approximate), Expi res: 12/24/2023 Start: 06-05-2023 Blood chemistry [facility] Start: 06-04-2023 Blood chemistry [facility] Start: 06-03-2023 Blood chemistry [facility] Start: 06-02-2023 Blood chemistry [facility] Start: 06-01-2023 Blood chemistry [facility] Start: 05-31-2023 Blood chemistry [facility] Start: 05-30-2023 Colonoscopy COLONOSCOPY [facility] Start: 05-30-2023 COLORECTAL CANCER SCREENING COLORECTAL CANCER SCREENING [facility] Start: 05-30-2023 Screening for malignant neoplasm of colon [facility] Start: 05-30-2023 Patient discharge [facility] Start: 05-27-2023 Oxygen therapy [facility] Start: 05-27-2023 Inhalation therapy procedure [facility] Start: 05-26-2023 Application of intermittent pneumatic compression device [facility] Start: 05-26-2023 Following clinical pathway protocol [facility] Start: 05-26-2023 Ambulation without limitation [facility] Start: 05-26-2023 Assessment of risk of venous thromboembolism [facility] Start: 05-26-2023 Documentation procedure [facility] Start: 05-26-2023 Insertion of catheter into peripheral vein [facility] Start: 05-26-2023 Providing care according to standard [facility] Start: 05-26-2023 Referral to general surgeon [facility] Start: 05-26-2023 Verification routine [facility] Start: 05-26-2023 Leukocyte reduced red blood cells [facility] Start: 05-26-2023 End: 05-26-2023 [facility] Start: 05-26-2023 Administration of blood product [facility] Start: 05-26-2023 Admission procedure [facility] Start: 05-26-2023 Hospital admission, emergency, from emergency room, medical nature [facility] Start: 03-30-2024 Consultation [facility] Start: 05-02-2023 Covid-19 Vaccine () Covid-19 Vaccine () [facility] Start: 02-26-2023 Advance Directive Discussion Advance Directive Discussion [facility] Start: 02-26-2023 Behavioral Health Screening Behavioral Health Screening [facility] Start: 02-26-2023 Depression Assessment Depression Assessment [facility] Start: 02-20-2023 Referral to service [facility] Start: 02-20-2023 Patient discharge [facility] Start: 02-19-2023 Oxygen therapy [facility] Start: 02-17-2023 Contact precautions [facility] Start: 02-17-2023 Respiratory secretion precautions [facility] Start: 02-17-2023 Inhalation therapy procedure [facility] Start: 02-17-2023 Following clinical pathway protocol [facility] Start: 02-17-2023 Ambulation without limitation [facility] Start: 02-17-2023 Assessment of risk of venous thromboembolism [facility] Start: 02-17-2023 Insertion of catheter into peripheral vein [facility] Start: 02-17-2023 Measuring intake and output [facility] Start: 02-17-2023 Providing care according to standard [facility] Start: 02-17-2023 [facility] Start: 02-17-2023 Verification routine [facility] Start: 02-17-2023 Admission procedure [facility] Start: 02-17-2023 Hospital admission, emergency, from emergency room, medical nature [facility] Start: 02-17-2023 [facility] Start: 02-17-2023 [facility] Start: 12-22-2022 BP CONTROLLED (<130/80) BP CONTROLLED (<130/80) [facility] Start: 12-16-2022 DIABETES SCREEN DIABETES SCREEN [facility] Start: 10-27-2022 Influenza vaccination [facility] Start: 08-12-2022 Adult depression screening assessment DEPRESSION SCREENING [facility] Start: 08-12-2022 ANNUAL PCP TEAM CHRONIC DISEASE VISIT ANNUAL PCP TEAM CHRONIC DISEASE VISIT [facility] Start: 06-29-2022 ANNUAL PCP TEAM CHRONIC DISEASE VISIT ANNUAL PCP TEAM CHRONIC DISEASE VISIT [facility] Start: 06-16-2022 End: 12-01-2022 CBC W Auto Differential panel - Blood CBC + DIFF Lab Routine TIA (transient ischemic attack) Hyperlipidemia, mixed Gastroesophageal reflux disease Expected: 06/16/2022 (Approximate), Expires: 12/01/2022 [facility] Work Phone: Comment on above: Expected: 06/16/2022 (Approximate), Expi res: 12/01/2022 Start: 06-16-2022 End: 12-01-2022 Comprehensive metabolic 2000 panel - Serum or Plasma COMP METABOLIC PANEL Lab Routine TIA (transient ischemic attack) Hyperlipidemia, mixed Gastroesophageal reflux disease Expected: 06/16/2022 (Approximate), Expires: 12/01/2022 [facility] Work Phone: Comment on above: Expected: 06/16/2022 (Approximate), Expi res: 12/01/2022 Start: 06-16-2022 End: 12-01-2022 Lipid 1996 panel - Serum or Plasma LIPID PANEL BASIC Lab Routine TIA (transient ischemic attack) Hyperlipidemia, mixed Expected: 06/16/2022 (Approximate), Expires: 12/01/2022 [facility] Work Phone: Comment on above: Expected: 06/16/2022 (Approximate), Expi res: 12/01/2022 Start: 03-13-2022 Biopsy liver needle percutaneous NEEDLE BIOPSY OF LIVER [facility] Start: 03-13-2022 Following clinical pathway protocol [facility] Start: 03-13-2022 Catheterization of vein [facility] Start: 03-13-2022 Oxygen therapy [facility] Start: 03-13-2022 Patient discharge [facility] Start: 03-13-2022 Vital signs measurements [facility] Start: 02-27-2022 SHINGRIX VACCINE (1 of 2) SHINGRIX VACCINE (1 of 2) Mis[facility] Clarke Comment on above: Postponed from 2001 (Insurance Cov erage) Start: 02-26-2022 ADVANCE DIRECTIVE DISCUSSION ADVANCE DIRECTIVE DISCUSSION [facility] Start: 02-26-2022 DEPRESSION ASSESSMENT DEPRESSION ASSESSMENT [facility] Start: 12-14-2021 ANNUAL PCP TEAM CHRONIC DISEASE VISIT ANNUAL PCP TEAM CHRONIC DISEASE VISIT [facility] Start: 12-08-2021 Acute hepatitis 2000 panel - Serum [facility] Work Phone: Start: 12-08-2021 Angiotensin converting enzyme [Enzymatic activity/volume] in Serum or Plasma [facility] Work Phone: Start: 12-08-2021 Ceruloplasmin [Mass/volume] in Serum or Plasma [facility] Work Phone: Start: 12-08-2021 Copper [Moles/volume] in Serum or Plasma [facility] Work Phone: Start: 12-08-2021 Haptoglobin [Mass/volume] in Serum or Plasma [facility] Work Phone: Start: 12-08-2021 Immunoglobulin measurement [facility] Work Phone: Start: 12-08-2021 Serum immunofixation [facility] Work Phone: Start: 12-08-2021 Smooth muscle Ab [Presence] in Serum [facility] Work Phone: Start: 12-08-2021 [facility] Work Phone: Start: 11-30-2021 End: 01-30-2022 Magnesium [Mass/volume] in Serum or Plasma MAGNESIUM BLD Lab Routine Medication management Expected: 11/30/2021, Expires: 01/30/2022 [facility] Work Phone: Comment on above: Expected: 11/30/2021, Expires: 2 Start: 11-30-2021 End: 01-30-2022 SCHEDULE LAB TESTING SCHEDULE LAB TESTING Lab Routine Expected: 11/30/2021, Expires: 01/30/2022 [facility] Work Phone: Comment on above: Expected: 11/30/2021, Expires: 2 Start: 11-24-2021 Colonoscopy w/biopsy single/multiple COLONOSCOPY AND BIOPSY [facility] Work Phone: Start: 11-24-2021 Colsc flx w/rmvl of tumor polyp lesion snare tq COLONOSCOPY W/LESION REMOVAL [facility] Work Phone: Start: 11-24-2021 Patient discharge [facility] Work Phone: Start: 10-30-2021 COVID-19 VACCINE (4 - Booster for Pfizer series) COVID-19 VACCINE (4 - Booster for Pfizer series) [facility] Start: 10-27-2021 Influenza vaccination INFLUENZA (#1) [facility] Start: 09-17-2021 Patient discharge [facility] Work Phone: Start: 09-16-2021 Application of intermittent pneumatic compression device [facility] Work Phone: Start: 09-15-2021 Following clinical pathway protocol [facility] Work Phone: Start: 09-15-2021 Assessment of risk of venous thromboembolism [facility] Work Phone: Start: 09-15-2021 Insertion of catheter into peripheral vein [facility] Work Phone: Start: 09-15-2021 Providing care according to standard [facility] Work Phone: Start: 09-15-2021 Provision of activity privileges [facility] Work Phone: Start: 09-15-2021 Referral to gastroenterology service [facility] Work Phone: Start: 09-15-2021 [facility] Work Phone: Start: 09-15-2021 Verification routine [facility] Work Phone: Start: 09-15-2021 Admission procedure [facility] Work Phone: Start: 09-15-2021 [facility] Work Phone: Start: 09-15-2021 Patient referral to dietitian [facility] Work Phone: Start: 08-24-2021 COVID-19 VACCINE (4 - Booster for Pfizer series) COVID-19 VACCINE (4 - Booster for Pfizer series) [facility] Start: 08-12-2021 End: 10-12-2021 Basic metabolic 2000 panel - Serum or Plasma BASIC METABOLIC PNL Lab Routine Hyperglycemia Expected: 08/12/2021, Expires: 10/12/2021 [facility] Work Phone: Comment on above: Expected: 08/12/2021, Expires: 2 Start: 08-12-2021 End: 10-12-2021 CBC panel - Blood by Automated count CBC Lab Routine Abdominal wall hematoma, sequela Expected: 08/12/2021, Expires: 10/12/2021 [facility] Work Phone: Comment on above: Expected: 08/12/2021, Expires: 2 Start: 08-12-2021 End: 10-12-2021 Hemoglobin A1c in Blood HGB A1C Lab Routine Hyperglycemia Expected: 08/12/2021, Expires: 10/12/2021 [facility] Work Phone: Comment on above: Expected: 08/12/2021, Expires: 2 Start: 08-12-2021 End: 10-12-2021 Iron and Iron binding capacity panel - Serum or Plasma IRON + TIBC Lab Routine Abdominal wall hematoma, sequela Expected: 08/12/2021, Expires: 10/12/2021 [facility] Work Phone: Comment on above: Expected: 08/12/2021, Expires: 2 Start: 08-12-2021 End: 10-12-2021 Lipid 1996 panel - Serum or Plasma LIPID PANEL BASIC Lab Routine Screening for lipid disorders Expected: 08/12/2021, Expires: 10/12/2021 [facility] Work Phone: Comment on above: Expected: 08/12/2021, Expires: 2 Start: 06-20-2021 Referral to service [facility] Work Phone: Start: 06-20-2021 Patient discharge [facility] Work Phone: Start: 06-19-2021 Ambulation without limitation [facility] Work Phone: Start: 06-19-2021 Assessment of risk of venous thromboembolism [facility] Work Phone: Start: 06-19-2021 Insertion of catheter into peripheral vein [facility] Work Phone: Start: 06-19-2021 Providing care according to standard [facility] Work Phone: Start: 06-19-2021 Referral to occupational therapist [facility] Work Phone: Start: 06-19-2021 Referral to service [facility] Work Phone: Start: 06-19-2021 [facility] Work Phone: Start: 06-19-2021 Following clinical pathway protocol [facility] Work Phone: Start: 06-19-2021 Admission procedure [facility] Work Phone: Start: 06-13-2021 COVID-19 VACCINE (3 - Booster for Pfizer series) COVID-19 VACCINE (3 - Booster for Pfizer series) [facility] Start: 02-26-2021 ADVANCE DIRECTIVE DISCUSSION ADVANCE DIRECTIVE DISCUSSION [facility] Start: 02-26-2021 DEPRESSION ASSESSMENT DEPRESSION ASSESSMENT [facility] Start: 08-31-2019 Adult depression screening assessment DEPRESSION SCREENING [facility] Start: 06-26-2017 Mammography [facility] Start: 06-26-2017 Screening for malignant neoplasm of breast Mammogram Screening [facility] Start: 05-23-2014 FECAL OCCULT BLOOD FECAL OCCULT BLOOD [facility] Start: 05-23-2014 Screening for malignant neoplasm of colon Fecal Occult Blood [facility] Start: 2011 RSV Vaccine (1 - 1-dose 60+ series) RSV Vaccine (1 - 1-dose 60+ series) [facility] Start: 2011 RSV Vaccine (1 - Risk 60-74 years 1-dose series) RSV Vaccine (1 - Risk 60-74 years 1-dose series) [facility] Start: 2001 SHINGRIX VACCINE (1 of 2) SHINGRIX VACCINE (1 of 2) [facility] Start: 1996 COLOGUARD (FIT-DNA) COLOGUARD (FIT-DNA) [facility] Start: [address] COLONOGRAPHY [facility] Start: 1996 Screening for malignant neoplasm of colon [facility] Start: 1996 SIGMOIDOSCOPY SIGMOIDOSCOPY [facility] Start: 1969 Anxiety Screening Anxiety Screening [facility] Start: 1969 BP CONTROLLED (<130/80) BP CONTROLLED (<130/80) [facility] Start: 1969 Depression Screening Depression Screening [facility] Start: 1969 SPIROMETRY SPIROMETRY [facility] Albumin [Moles/volum e] in Serum or Plasma [facility] Work Phone: Albumin/Globulin ratio [facility] Work Phone: Angiotensin converti ng enzyme [Enzymatic activity/volume] in Serum or Plasma [facility] Work Phone: Anion gap measurement [facility] Bacteria identified in Urine by Culture URINE CULTURE Microbiology Routine Burning with urination 07/26/2023 11:03 AM EDT [facility] Work Phone: BUN/Creatinine ratio [facility] Calcium [Mass/volume ] in Serum or Plasma [facility] Carbon dioxide, tota l [Moles/volume] in Serum or Plasma [facility] Ceruloplasmin [Mass/volume] in Serum or Plasma [facility] Work Phone: Chloride [Moles/volu me] in Serum or Plasma [facility] Copper [Moles/volume ] in Serum or Plasma [facility] Work Phone: Creatinine [Moles/vo lume] in Serum or Plasma [facility] End: 03-14-2025 CT Head WO contrast CT BRAIN WO IVCON Radiology STAT New persistent daily headache Dizziness Balance problem 1 Occurrences starting 02/13/2024 until 03/14/2025 [facility] Work Phone: Comment on above: 1 Occurrences starting 02/13/2024 until 03/14/2025 End: 07-03-2025 DBT Breast - bilateral screening KENNY SCREENING W CHAPARRITA Radiology Routine Encounter for screening mammogram for breast cancer 1 Occurrences starting 06/03/2024 until 07/03/2025 [facility] Work Phone: Comment on above: 1 Occurrences starting 06/03/2024 until 07/03/2025 End: 11-10-2022 Dup-scan xtr veins unilateral/limited study US DVT LOWER RT Radiology STAT Pain in right lower leg 1 Occurrences starting 10/11/2021 until 11/10/2022 [facility] Work Phone: Comment on above: 1 Occurrences starting 10/11/2021 until 11/10/2022 Electrophoresis: [id number] [facility] Work Phone: Electrophoresis: antione ma globulin [facility] Work Phone: Giardia lamblia Ag [Presence] in Stool by Immunoassay [facility] Work Phone: Globulin measurement [facility] Work Phone: Glucose [Mass/volume ] in Serum or Plasma [facility] Haptoglobin [Mass/vo lume] in Serum or Plasma [facility] Work Phone: Hepatitis A virus Ig M Ab [Presence] in Serum [facility] Work Phone: Hepatitis B core ant ibody measurement, IgM type [facility] Work Phone: Hepatitis B surface antigen measurement [facility] Work Phone: Hepatitis C antibody measurement [facility] Work Phone: IgA [Mass/volume] in Serum or Plasma [facility] Work Phone: IgE [Units/volume] i n Serum or Plasma [facility] Work Phone: IgG [Mass/volume] in Serum or Plasma [facility] Work Phone: IgM [Mass/volume] in Serum or Plasma [facility] Work Phone: End: 08-25-2023 KENNY SCREENING KENNY SCREENING Radiology Routine Encounter for screening mammogram for breast cancer 1 Occurrences starting 07/26/2022 until 08/25/2023 [facility] Work Phone: Comment on above: 1 Occurrences starting 07/26/2022 until 08/25/2023 Measurement of renal function [facility] End: 08-02-2024 MG Breast Screening KENNY SCREENING Radiology Routine Encounter for screening mammogram for breast cancer 1 Occurrences starting 07/04/2023 until 08/02/2024 [facility] Work Phone: Comment on above: 1 Occurrences starting 07/04/2023 until 08/02/2024 Neutrophil cytoplasm ic Ab.classic [Units/volume] in Serum [facility] Work Phone: NM Heart Views W str ess and W radionuclide IV [facility] Ova and parasites identified in Unspecified specimen by Light microscopy [facility] P-ANCA measurement [facility] Work Phone: Patient Education [facility] Work Phone: Patient referral [facility] Work Phone: Potassium [Moles/vol ume] in Serum or Plasma [facility] Procedure [facility] Protein electrophore sis panel - Serum or Plasma [facility] Work Phone: Protein measurement [facility] PT PLAN OF CARE CERTIFICATION PT PLAN OF CARE CERTIFICATION Procedures Routine Sacroiliitis (HCC) Ordered: 05/10/2022 [facility] Comment on above: Ordered: 05/10/2022 End: 09-09-2023 Radex spine lumbosacral minimum 4 views XR LUMBAR MOTION 4V AP/LAT/ FLEX/EXT Radiology Routine Lumbar radiculopathy Sacroiliitis (HCC) 1 Occurrences starting 08/10/2022 until 09/09/2023 [facility] Work Phone: Comment on above: 1 Occurrences starting 08/10/2022 until 09/09/2023 End: 09-23-2022 Screening mammography bi 2-view breast inc cad KENNY SCREENING Radiology Routine Encounter for screening mammogram for breast cancer 1 Occurrences starting 08/24/2021 until 09/23/2022 [facility] Work Phone: Comment on above: 1 Occurrences starting 08/24/2021 until 09/23/2022 Serum protein electrophoresis [facility] Work Phone: Smooth muscle Ab [Presence] in Serum [facility] Work Phone: Sodium [Moles/volume ] in Serum or Plasma [facility] End: 01-21-2023 SPIROMETRY - BASELINE AND POST DILATOR SPIROMETRY - BASELINE AND POST DILATOR PFT Routine Asthma 1 Occurrences starting 12/22/2021 until 01/21/2023 [facility] Work Phone: Comment on above: 1 Occurrences starting 12/22/2021 until 01/21/2023 End: 01-31-2024 SPIROMETRY - BASELINE AND POST DILATOR SPIROMETRY - BASELINE AND POST DILATOR PFT Routine Asthma 1 Occurrences starting 01/01/2023 until 01/31/2024 [facility] Work Phone: Comment on above: 1 Occurrences starting 01/01/2023 until 01/31/2024 End: 02-09-2025 SPIROMETRY - BASELINE AND POST DILATOR SPIROMETRY - BASELINE AND POST DILATOR PFT Routine Asthma 1 Occurrences starting 01/11/2024 until 02/09/2025 [facility] Work Phone: Comment on above: 1 Occurrences starting 01/11/2024 until 02/09/2025 Ultrasound elastography [facility] Work Phone: Urea nitrogen [Mass/volume] in Serum or Plasma [facility] US Abdomen limited [facility] Work Phone: End: 12-15-2023 XR WRIST GENERAL 3V PA/LAT/OBL RIGHT XR WRIST GENERAL 3V PA/LAT/OBL RIGHT Radiology Routine Pain 1 Occurrences starting 11/15/2022 until 12/15/2023 [facility] Work Phone: Comment on above: 1 Occurrences starting 11/15/2022 until 12/15/2023 [facility] Immunizations Immunization Date Immunization Notes Care Provider Jatinder gardner 01-11-2024 COVID-19 vaccine, ag e 12+ yr (PFIZER-BIONTECH COMIRNATY) Faith Mullins COMPUTER NETWORK ENGINEER.FINANCIAL SALES CONSULTANT Work Phone: [facility] 01-11-2024 influenza, high dose seasonal, preservative-free Faith Mullins COMPUTER NETWORK ENGINEER.FINANCIAL SALES CONSULTANT Work Phone: [facility] 01-11-2024 influenza virus vacc ine, unspecified formulation Fatemeh Rogers MD Work Phone: [facility] 01-01-2023 COVID-19 vaccine, ag e 12+ yr, season (PFIZER-BIONTECH) Faith Mullins COMPUTER NETWORK ENGINEER.FINANCIAL SALES CONSULTANT Work Phone: [facility] Work Phone: 01-01-2023 influenza (HD-IIV4) vaccine, age 65+ yr, high dose, quadrivalent, PF (FLUZONE HIGH-DOSE) Faith Mullins COMPUTER NETWORK ENGINEER.FINANCIAL SALES CONSULTANT Work Phone: [facility] Work Phone: 01-01-2023 influenza virus vacc ine, unspecified formulation Fatemeh Rogers MD Work Phone: [facility] 06-30-2022 COVID-19 vaccine, ag e 12+ yr, bivalent (PFIZER-BIONTECH) Fatemeh Rogers MD Work Phone: [facility] 12-22-2021 COVID-19 booster vaccine, age 12+ yr, bivalent (PFIZER-BIONTECH) Faith Mullins COMPUTER NETWORK ENGINEER.FINANCIAL SALES CONSULTANT Work Phone: [facility] Work Phone: 12-22-2021 influenza, high-dose , quadrivalent vaccine (FLUZONE HIGH DOSE QUADRIVALENT) Faith Mullins COMPUTER NETWORK ENGINEER.FINANCIAL SALES CONSULTANT Work Phone: [facility] Work Phone: 12-22-2021 influenza virus vacc ine, unspecified formulation Dwight Tobar MD Work Phone: [facility] 06-29-2021 COVID-19 vaccine, ag e 12+ yr (PFIZER-BIONTECH - SOLANO TOP) Erik Reynolds MD Work Phone: [facility] 01-13-2021 COVID-19 vaccine, ag e 12+ yr (PFIZER-BIONTECH - PURPLE TOP) Erik Reynolds MD Work Phone: [facility] Work Phone: 12-14-2020 COVID-19 vaccine, ag e 12+ yr (PFIZER-BIONTECH - PURPLE TOP) Erik Reynolds MD Work Phone: [facility] 12-14-2020 influenza, high-dose , quadrivalent vaccine (FLUZONE HIGH DOSE QUADRIVALENT) Erik Reynolds MD Work Phone: [facility] 01-07-2020 influenza, high-dose , quadrivalent vaccine (FLUZONE HIGH DOSE QUADRIVALENT) Erik Reynolds MD Work Phone: [facility] 02-07-2019 pneumococcal polysaccharide vaccine, 23 valent Erik Reynolds MD Work Phone: [facility] 01-10-2019 Influenza virus vaccine [facility] 01-10-2019 influenza, seasonal, injectable, preservative free Erik Reynolds MD Work Phone: [facility] 01-06-2019 influenza, high dose seasonal, preservative-free Erik Reynolds MD Work Phone: [facility] 12-11-2017 influenza, high dose seasonal, preservative-free Erik Reynolds MD Work Phone: [facility] 11-26-2017 Influenza virus vaccine [facility] 11-26-2017 influenza, seasonal, injectable, preservative free Erik Reynolds MD Work Phone: [facility] 12-05-2016 influenza, high dose seasonal, preservative-free Erik Reynolds MD Work Phone: [facility] 06-02-2016 pneumococcal conjuga te vaccine, 13 valent Erik Reynolds MD Work Phone: [facility] 12-28-2015 influenza, high dose seasonal, preservative-free Erik Reynolds MD Work Phone: [facility] 10-28-2015 Influenza virus vaccine [facility] 10-28-2015 influenza, seasonal, injectable, preservative free Erik Reynolds MD Work Phone: [facility] 08-12-2015 tetanus toxoid, redu kris diphtheria toxoid, and acellular pertussis vaccine, adsorbed Erik Reynolds MD Work Phone: [facility] 12-01-2014 influenza, injectabl e, quadrivalent, contains preservative Erik Reynolds MD Work Phone: [facility] 12-01-2014 influenza, seasonal, injectable Erik Reynolds MD Work Phone: [facility] 11-19-2013 influenza, seasonal, injectable Erik Reynolds MD Work Phone: [facility] Work Phone: 11-19-2013 pneumococcal polysaccharide vaccine, 23 valent Erik Reynolds MD Work Phone: [facility] Work Phone: Payers Date Payer Category Payer Medicaid [id number] 2023 Self-pay [id number] 2022 Medicare (Managed Care) .2. [id number] 2022 Unknown [id number] 2020 Medicare HUMANA MEDICARE HUMANA GOLD PLUS [id number] 2020-[facility] [id number] [place] [id number] [facility] [id number] 2018 Medicare [id number] 2016 Private Health Insurance 2016 Unknown [id number] 1950 Unknown [id number] 27 Medicare [id number] Medicare [id number] Private Health Insurance [id number] Unknown [id number] 62 Unknown [id number] 62 Unknown [id number] 62 Unknown [id number] 62 Unknown [id number] 62 Unknown [id number] 62 Social History Date Type Detail Facility Start: 04-20-2016 End: 12-22-2021 Tobacco smoking status NHIS Never smoked tobacco [facility] Work Phone: Start: 04-20-2016 End: 12-22-2021 Tobacco use and exposure Smokeless tobacco non-user [facility] Work Phone: Start: 01-25-2021 End: 07-16-2024 Alcohol intake Current non-drinker of alcohol (finding) [facility] Start: 1950 Sex Assigned At Not on file [facility] Start: 06-10-2021 End: 05-26-2023 Tobacco smoking status NHIS Unknown if ever smoked [facility] Start: 04-25-2019 None [facility] Start: 09-14-2019 Alone [facility] Start: 09-14-2019 Non-smoker [facility] Start: 1950 Sex Assigned At Female [facility] Start: 12-08-2019 End: 01-10-2022 Exposure to SARS-CoV-2 (event) Not sure [facility] Start: 06-28-2021 End: 12-20-2021 History SDOH Alcohol Frequency 1 [facility] Start: 06-28-2021 History SDOH Alcohol Std Drinks 98 [facility] Start: 06-28-2021 History SDOH Social Connections Phone 5 [facility] Start: 06-28-2021 History SDOH Social Connections Get Together 3 [facility] Start: 06-28-2021 End: 12-20-2021 History SDOH Social Connections Membership 2 [facility] Start: 06-28-2021 History SDOH Physica l Activity DPW 0 [facility] Start: 06-30-2022 End: 09-07-2022 History of Social function [facility] Start: 06-30-2022 End: 09-07-2022 Tobacco use panel [facility] Start: 01-28-2012 Adult Depression Screening Assessment 1 [facility] In the past 12 month s, was there a time when you were not able to pay the mortgage or rent on time? Yes [facility] At any time in the p ast 12 months, were you homeless or living in custodial [including now]? No [facility] Are you now , , , , never or living with a partner? [facility] How often to you hav e a drink containing alcohol? Never [facility] Do you feel stress - tense, restless, nervous, or anxious, or unable to sleep at night because your mind is troubled all the time - these days [OSQ] Not at all [facility] (I/We) worried wheth er (my/our) food would run out before (I/we) got money to buy more. Sometimes true [facility] How hard is it for y ou to pay for the very basics like food, housing, medical care, and heating Somewhat hard [facility] Do you feel stress - tense, restless, nervous, or anxious, or unable to sleep at night because your mind is troubled all the time - these days [OSQ] Only a little [facility] Goals Date Patient Goal Desired Activity /State Functional Status Date Assessment Result Facility 05-30-2023 Functional status Ambulates [facility] Work Phone: 05-30-2023 Functional status Tolerates Activity Well [facility] Work Phone: 02-20-2023 Functional status Patient Activity Chair [facility] Work Phone: 02-20-2023 Functional status With Assist of 1 [facility] Work Phone: 03-13-2022 Functional status Ambulates [facility] Work Phone: 09-17-2021 Functional status Ambulates [facility] Work Phone: 06-20-2021 Functional status Chair [facility] Work Phone: 07-30-2018 Are you deaf, or do you have serious difficulty hearing No 07/30/2018 3:13 PM Marii Santos RN No [facility] 07-30-2018 Are you blind, or do you have serious difficulty seeing, even when wearing glasses No 07/30/2018 3:13 PM Marii Santos, CHAPARRITA No [facility] 07-30-2018 Do you have serious difficulty walking or climbing stairs No 07/30/2018 3:13 PM Marii Santos, CHAPARRITA No [facility] 07-30-2018 Do you have difficul ty dressing or bathing No 07/30/2018 3:13 PM Marii Santos, CHAPARRITA No [facility] 07-30-2018 Because of a physica l, mental, or emotional condition, do you have difficulty doing errands alone such as visiting a physician's office or shopping No 07/30/2018 3:13 PM Marii Santos, CHAPARRITA No [facility] Mental Status Date Assessment Result Facility 05-30-2023 Cognitive function Voice/Name [facility] Work Phone: 02-20-2023 Cognitive function Voice/Name [facility] Work Phone: 03-13-2022 Cognitive function Voice/Name [facility] Work Phone: 01-06-2022 Cognitive function Level Of Cons ciousness Awake;Alert;Appropriate;Fol lows Commands [facility] Work Phone: 11-24-2021 Cognitive function Voice/Name [facility] Work Phone: 09-17-2021 Cognitive function Voice/Name [facility] Work Phone: 06-20-2021 Cognitive function Voice/Name [facility] Work Phone: 07-30-2018 Because of a physica l, mental, or emotional condition, do you have serious difficulty concentrating, remembering, or making decisions No 07/30/2018 3:13 PM EDT Marii Melgar, CHAPARRITA No [facility] Clinical Notes 08-28-2012 to 12-19-2024 Telephone Encounter - Fatemeh Rogers MD - 10/16/2024 3:23 PM EDTTelephone Encounter - Fatemeh Rogers MD - 10/16/2024 3:23 PM EDTTelephone Encounter - Bharti Moore - 10/16/2024 9:38 AM EDT Note Date & Type Note Facility 12-19-2024 Note HNO ID: [id number] Author: FAITH MULLINS APRN.FINANCIAL SALES CONSULTANT Service: ? Author Type: Nurse Specialist Type: Progress Notes Filed: 12/19/2024 15:32 Note Text: SUBJECTIVE: Shingrix Vaccine(1 of 2) Never done RSV Vaccine(1 - Risk 60-74 years 1-dose series) Never done Mammogram Screening due on 06/26/2017 Medicare Advantage Annual Wellness Visit Never done Colorectal Cancer Screening due on 03/13/2024 Influenza Vaccine(1) due on 10/27/2024 Covid-19 Vaccine( season) due on 10/27/2024 Depression Screening due on 01/10/2025 Anxiety Screening due on 01/10/2025 HPI Romain Bailey is a 74 year old female. PMH is significant for ACTIVE PROBLEM LIST Environmental Allergies Asthma (Hcc) Arthropathy, Unspecified, Site Unspecified Essential Hypertension Ibs (Irritable Bowel Syndrome) Gerd (Gastroesophageal Reflux Disease) Migraine Hyperlipidemia, Mixed History of Colon Polyps Chronic Pain of Right Knee Primary Osteoarthritis of Right Knee Bppv (Benign Paroxysmal Positional Vertigo) Bee Sting Allergy Bilateral Low Back Pain With Bilateral Sciatica Calculus of Kidney Llq Pain History of Tia (Transient Ischemic Attack) Dry Skin History of Asthma Acquired Stenosis of Nasolacrimal Duct, Right Unspecified Dacryocystitis of Right Lacrimal Passage Unspecified Injury of Right Lower Leg, Initial Encounter Chest Pain Contusion of Left Wrist Contusion of Knee, Left Contusion of Elbow Colitis Hiatal Hernia Romain Bailey is a 74-year-old female with chronic low back pain, sacroiliitis, sciatica, chonic severe osteoarthritis of the right knee, GERD, and chronic left foot drop, presenting for evaluation and prescription of a power wheelchair due to progressive mobility limitations. Accompanied by her daughter, who is providing history on the patient?s behalf. Romain Bailey is a 74-year-old female with a history of sacroiliitis, sciatica, and left foot drop, presenting for evaluation of a power wheelchair and management of back pain, right knee pain, and GERD. Power Wheelchair Evaluation: - Ambulation limited to 6-10 steps before right knee gives out. - Requires cane or walker for ambulation; unable to walk without assistive devices. Cane or walker is sufficient for her needs now, frequently having near falls. - Lives with daughter and grandchildren, who assist with ADLs. - Home has hardwood floors; she will have enough room to use the wheelchair with her home. - Able to operate a motorized wheelchair with hand controls. Back Pain: - Worsening back pain x3 months, with numbness radiating from lower back down the legs when standing or sitting. - Diagnosed with sacroiliitis and sciatica several years ago; no recent evaluation. - Recent X-ray in June. - Denies current treatment for back pain; avoids medication unless pain is above a 10. - Reports a bulge in the back, with pain alleviated by leaning on the right side. - Denies history of back surgery. Right Knee Pain: - Severe arthritis in the right knee, described as bone on bone. - Has not undergone knee replacement surgery; has been delaying due to transportation issues and recent move. - Unable to straighten the knee; noticeable size difference compared to the other knee. - Denies current treatment for knee pain. Left Foot Drop: - Diagnosed with left foot drop; currently using a brace. - Brace causing discomfort and swelling; Romain reports a huge indent from the brace. - Denies history of back surgery or recent trauma; had two broken ankles as a teenager but denies chronic issues post-injury. - Current foot doctor is Dr. Wilson. GERD: - History of hiatal hernia. - Experiencing daily heartburn x2 weeks, despite eating smaller meals and avoiding spicy foods. - Currently taking pantoprazole. ROS Constitutional: (+) fatigue Musculoskeletal: (+) low back pain, (+) right knee pain, (+) knee instability, (+) gait difficulty Neurological: (+) lower extremity numbness, (+) paresthesias, (+) dizziness Gastrointestinal: (+) heartburn Objective BP 122/80 Pulse 74 Resp 12 Wt 88.3 kg (194 lb 10.7 oz) SpO2 94% BMI 31.42 kg/m? Physical Exam Vitals and nursing note [...] Palpations: Abdomen is soft. Musculoskeletal: Lumbar back: Spasms and tenderness present. Decre (more content not included)... [facility] 10-16-2024 Telephone encounter Note The following approved medication requests have been transmitted electronically. Requested Prescriptions Pending Prescriptions Disp Refills cetirizine (ZYRTEC) 10 mg tablet 90 tablet 3 Sig: Take 1 tablet by mouth once daily. Fatemeh Rogers MD [facility] 10-16-2024 Miscellaneous Notes The following approved medication requests have been transmitted electronically. Requested Prescriptions Pending Prescriptions Disp Refills cetirizine (ZYRTEC) 10 mg tablet 90 tablet 3 Sig: Take 1 tablet by mouth once daily. Fatemeh Rogers MD Prescription Refill Information The patient has been identified by name and date of : Yes Caregiver verified no other encounters exist for this prescription request: Yes Caregiver confirmed with patient/requestor that no other refills are due, in the near future, with this provider at this time: Yes The last office visit in the department: 07-16-24 Does the patient have a future office visit with this provider/department: Yes Requested Prescriptions Pending Prescriptions Disp Refills cetirizine (ZYRTEC) 10 mg tablet 90 tablet 1 Sig: Take 1 tablet by mouth once daily. Bharti Rae October 16, 2024 9:39 AM documented in this encounter [facility] 10-16-2024 Telephone encounter Note Prescription Refill Information The patient has been identified by name and date of : Yes Caregiver verified no other encounters exist for this prescription request: Yes Caregiver confirmed with patient/requestor that no other refills are due, in the near future, with this provider at this time: Yes The last office visit in the department: 07-16-24 Does the patient have a future office visit with this provider/department: Yes Requested Prescriptions Pending Prescriptions Disp Refills cetirizine (ZYRTEC) 10 mg tablet 90 tablet 1 Sig: Take 1 tablet by mouth once daily. Bharti Rae October 16, 2024 9:39 AM [facility] Work Phone: 07-16-2024 Note HNO ID: [id number] Author: LUH HUERTA RT(R) Service: Radiology Author Type: Technologist Type: Progress Notes Filed: 07/16/2024 14:48 Note Text: Radiology Service Progress Note PATIENT NAME: Romain Bailey DATE OF SERVICE: July 16, 2024 TIME: 2:33 PM PATIENT IDENTITY VERIFICATION COMPLETED USING TWO [...] falls during this visit? Offered Assistance with Transfers/Clothing and Instructed Patient to Remain Seated (Not on Exam Table) Until Exam PATIENT GENDER DATA: Assigned female at . status: : No status: NO. PATIENT RELEVANT IMPLANT DATA REVIEWED: Not Applicable PATIENT PRESENTS WITH AN IMPLANTABLE OR ATTACHED SIGNWRITER: No RADIOLOGY DEPARTMENT: General X-ray: Exam(s) Completed: Spine X-Ray(s): Lumbar AP / LAT / L5-S1 PERIPHERAL IV DATA: Not applicable SIGNED BY: RT Shadia(R) July 16, 2024 2:33 PM [facility] 07-16-2024 Note HNO ID: [id number] Author: BASILIO CROUCH APRN.PAPER CARRIER Service: ? Author Type: Nurse Practitioner Type: Progress Notes Filed: 07/16/2024 14:19 Note Text: SUBJECTIVE Romain Bailey is a 74 year old female here today for a check up on her medical problems. Chief Complaint Patient presents with: F/U 6 months: states legs have been feeling heavy for about 2 weeks started after a really sharp pain that radiated across lower back and down. Denies any incontinence of bowel or bladder claritin has not been as effective in the last 2 months. knee pain and question a motorized scooter Would like a referral to dermatology for a skin check HPI Romain is a 74-year-old female with a history of sacroiliitis, sciatica, and colitis, presenting with acute onset of severe lower back pain and subsequent heaviness in the legs. Romain reports a sudden onset of severe lower back pain that occurred while standing at the counter putting away groceries. She describes the pain as a sharp sensation, like somebody punched me right in the back, really hard, which originated in the center of her back and radiated from left to right, causing her to fall to the floor. She managed to get up by pulling on drawers and counters. The pain was so intense that it caused her to break out in a sweat. She applied an ice pack and alternated between ice and heat for a couple of days, noting that heat provided more relief than ice. The pain has since subsided but left her lower back feeling tender, particularly in the very low spine and on both sides. Approximately 6-7 days after the initial back pain, she began experiencing a sensation of heaviness in her legs, describing it as feeling like she had cement in my feet when walking. This heaviness is more pronounced when she sits for extended periods. She also reports mild numbness and tingling in her legs, particularly from the ankles down, with the right leg being more affected than the left. She denies any issues with bowel or bladder function and reports no numbness in the perineal area. Romain has a history of degenerative disc disease and grade 1 anterior listhesis of L4 and L5, as confirmed by an x-ray in July 2022. She also has a history of colitis but reports no changes in her usual symptoms. She uses a cane and a walker for mobility and has a handicap sticker for her car due to difficulty walking more than 200 feet without discomfort. She inquires about the possibility of obtaining a motorized scooter through her insurance. Additionally, Romain reports a recent severe sunburn acquired [place] the [place]. Despite wearing SPF 70 sunscreen and reapplying it every 20-25 minutes, she experienced significant erythema and swelling, particularly on her hands, which she managed with aloe vera and ice packs. She expresses interest in a dermatology referral for a routine skin check and to discuss her sunburn and dry skin. She also requests a refill for loratadine, noting that it has been less effective in managing her allergy symptoms since the onset of spring. She inquires about switching to Zyrtec and mentions financial constraints, stating she has $5 left in her bank account until she receives her check on the first of the month. Her medications were reviewed today and her list is now up to date. Medications Current Outpatient Medications Medication Sig apixaban (ELIQUIS) 5 mg tab(s) Take 1 tablet by mouth two times a day. atorvastatin (LIPITOR) 40 mg tablet Take 1 tablet by mouth once daily. metoprolol tartrate, short acting, (LOPRESSOR) 25 mg tablet Take 1 tablet by mouth two times a day. pantoprazole DR (PROTONIX) 20 mg tablet Take 1 tablet by mouth once daily. verapamil SR (CALAN SR) 240 mg CR tablet Take 1 tablet by mouth daily at bedtime. ferrous sulfate 325 mg (65 mg iron) tablet Take 1 tablet by mouth once daily. ondansetron orally disintegrating (ZOFRAN ODT) 4 mg disintegrating tablet Take 1 tablet by mouth every 8 hours as needed for nausea/vomiting. EPINEPHrine (EPIPEN) 0.3 mg/0.3 mL auto-injector Inject 0.3 ml intramuscular as needed. albuterol HFA (PROVENTIL HFA, VENTOLIN HFA) 90 [...] mouth three times a day as needed. albuterol (PROVENTIL) 2.5 mg /3 mL (0.083 %) nebulizer solution Use 3 mL via nebulizer every 4 hours as needed for wheezing/shortness of breath. Use over 5-15minutes. meclizine (ANTIVERT) 25 mg tab Take 1 tablet by mouth every 6 hours as needed (dizziness). cetirizine (ZYRTEC) 10 mg tablet Take 1 tablet by naveen (more content not included)... [facility] 06-30-2024 Telephone encounter Note The following approved medication requests have been transmitted electronically. Requested Prescriptions Pending Prescriptions Disp Refills apixaban (ELIQUIS) 5 mg tab(s) 180 tablet 3 Sig: Take 1 tablet by mouth two times a day. atorvastatin (LIPITOR) 40 mg tablet 90 tablet 3 Sig: Take 1 tablet by mouth once daily. metoprolol tartrate, short acting, (LOPRESSOR) 25 mg tablet 180 tablet 3 Sig: Take 1 tablet by mouth two times a day. pantoprazole DR (PROTONIX) 20 mg tablet 90 tablet 3 Sig: Take 1 tablet by mouth once daily. verapamil SR (CALAN SR) 240 mg CR tablet 90 tablet 3 Sig: Take 1 tablet by mouth daily at bedtime. Fatemeh Rogers MD [facility] 06-30-2024 Miscellaneous Notes The following approved medication requests have been transmitted electronically. Requested Prescriptions Pending Prescriptions Disp Refills apixaban (ELIQUIS) 5 mg tab(s) 180 tablet 3 Sig: Take 1 tablet by mouth two times a day. atorvastatin (LIPITOR) 40 mg tablet 90 tablet 3 Sig: Take 1 tablet by mouth once daily. metoprolol tartrate, short acting, (LOPRESSOR) 25 mg tablet 180 tablet 3 Sig: Take 1 tablet by mouth two times a day. pantoprazole DR (PROTONIX) 20 mg tablet 90 tablet 3 Sig: Take 1 tablet by mouth once daily. verapamil SR (CALAN SR) 240 mg CR tablet 90 tablet 3 Sig: Take 1 tablet by mouth daily at bedtime. Fatemeh Rogers MD Pt needs Eliquis to be a 90 day supply for [facility]. Prescription Refill Information The patient has been identified by name and date of : Yes Caregiver verified no other encounters exist for this prescription request: Yes Caregiver confirmed with patient/requestor that no other refills are due, in the near future, with this provider at this time: Yes The last office visit in the department: 02/13/24 Does the patient have a future office visit with this provider/department: Requested Prescriptions Pending Prescriptions Disp Refills apixaban (ELIQUIS) 5 mg tab(s) 180 tablet 3 Sig: Take 1 tablet by mouth two times a day. atorvastatin (LIPITOR) 40 mg tablet 90 tablet 3 Sig: Take 1 tablet by mouth once daily. metoprolol tartrate, short acting, (LOPRESSOR) 25 mg tablet 180 tablet 3 Sig: Take 1 tablet by mouth two times a day. pantoprazole DR (PROTONIX) 20 mg tablet 90 tablet 3 Sig: Take 1 tablet by mouth once daily. verapamil SR (CALAN SR) 240 mg CR tablet 90 tablet 3 Sig: Take 1 tablet by mouth daily at bedtime. Trixie Almanza LPN June 30, 2024 11:22 AM documented in this encounter [facility] 06-30-2024 Telephone encounter Note Pt needs Eliquis to be a 90 day supply for [facility]. Prescription Refill Information The patient has been identified by name and date of : Yes Caregiver verified no other encounters exist for this prescription request: Yes Caregiver confirmed with patient/requestor that no other refills are due, in the near future, with this provider at this time: Yes The last office visit in the department: 02/13/24 Does the patient have a future office visit with this provider/department: Requested Prescriptions Pending Prescriptions Disp Refills apixaban (ELIQUIS) 5 mg tab(s) 180 tablet 3 Sig: Take 1 tablet by mouth two times a day. atorvastatin (LIPITOR) 40 mg tablet 90 tablet 3 Sig: Take 1 tablet by mouth once daily. metoprolol tartrate, short acting, (LOPRESSOR) 25 mg tablet 180 tablet 3 Sig: Take 1 tablet by mouth two times a day. pantoprazole DR (PROTONIX) 20 mg tablet 90 tablet 3 Sig: Take 1 tablet by mouth once daily. verapamil SR (CALAN SR) 240 mg CR tablet 90 tablet 3 Sig: Take 1 tablet by mouth daily at bedtime. Trixie Almanza LPN June 30, 2024 11:22 AM [facility] 06-03-2024 Note Patient Outreach (IN TMWS) ROMAIN BAILEY ([id number]) 1950 F CHT Date Time Provider Department 06/03/24 FATEMEH ROGERS INTMWS During your visit today, we recorded the following information about you: Allergies As of Date: 06/03/2024 Noted Allergy Reaction BACTRIM DS (SULFAMETHOXAZOLE-TRIM*12/29/2014 10 - Anaphylaxis Comments: Difficulty breathing, fever, chills BEE STING 08/28/2012 10 - Anaphylaxis ADHESIVE TAPE (ROSINS) 12/05/2016 2 - Rash DARVON (PROPOXYPHENE HCL) 05/15/2007 INFLUENZA VIRUS VACCINES 01/07/2019 14 - Other: See Comments Comments: Chest tightness, arm swelling. PEPPER (GENUS CAPSICUM) 11/04/2022 4 - Hives Date Reviewed: 02/13/2024 Reviewed by: Erin Corona, COMPUTER NETWORK ENGINEER.PAPER CARRIER - Fully Assessed Visit Diagnosis:Encounter for screening mammogram for breast cancer [Z12.31] Order(s):[facility] SCRE[facility] [[id number]] Order #: [id number] FUTURE Prescriptions as of 07/04/2024 - apixaban (ELIQUIS) 5 mg tab(s) Take 1 tablet by mouth two times a day. - atorvastatin (LIPITOR) 40 mg tablet Take 1 tablet by mouth once daily. - metoprolol tartrate, short acting, (LOPRESSOR) 25 mg tablet Take 1 tablet by mouth two times a day. - pantoprazole DR (PROTONIX) 20 mg tablet Take 1 tablet by mouth once daily. - verapamil SR (CALAN SR) 240 mg CR tablet Take 1 tablet by mouth daily at bedtime. - ferrous sulfate 325 mg (65 mg iron) tablet Take 1 tablet by mouth once daily. - ondansetron orally disintegrating (ZOFRAN ODT) 4 mg disintegrating tablet Take 1 tablet by mouth every 8 hours as needed for nausea/vomiting. - EPINEPHrine (EPIPEN) 0.3 mg/0.3 mL auto-injector Inject 0.3 ml intramuscular as needed. - albuterol HFA (PROVENTIL HFA, VENTOLIN HFA) 90 mcg/actuation inhaler Inhale 2 Puffs as instructed every 6 hours as needed. - fluticasone-salmeterol (ADVAIR DISKUS) 100-50 mcg/dose inhaler Inhale 1 Puff as instructed two times a day. RINSE AND GARGLE MOUTH WITH WATER AFTER EACH USE. - fluticasone (FLONASE) 50 mcg/actuation nasal spray Use 2 Sprays in each nostril once daily. - fluticasone-salmeterol (ADVAIR DISKUS) 250-50 mcg/dose inhaler [...] wheezing/shortness of breath. Use over 5-15minutes. - meclizine (ANTIVERT) 25 mg tab Take [...] Ortiz RN Problem List As Of Date 06/03/2024 Noted Resolved Sebaceous cyst [L72.3] 05/15/2007 04/16/2012 Environmental allergies [Z91.09] Asthma [J45.909] Arthropathy, unspecified, site unspecified [M12* Essential hypertension [I10] IBS (irritable bowel syndrome) [K58.9] GERD (gastroesophageal reflux disease) [K21.9] Migraine [G43.909] Diverticulitis [K57.92] 12/10/2020 Hyperlipidemia, mixed [E78.2] Fracture of finger, middle or proximal phalanx,*08/28/2012 12/10/2020 History of colon polyps [Z86.0100] Chronic pain of right knee [M25.561, G89.29] [...] Acquired stenosis of nasolacrimal duct, right [*11/30/2022 Diagnosed: 01/01/2023 Unspecified dacryocystitis of right lacrimal pa*11/30/2022 Diagnosed: 01/01/2023 Unspecified injury of right lower leg, initial *01/31/2022 Diagnosed: 01/01/2023 Chest pain [R07.9] 01/01/2023 Diagnosed: 01/01/2023 Contusion of left wrist [S60.212A] 01/01/2023 Diagnosed: 01/01/2023 Contusion of knee, left [S80.02XA] 01/01/2023 Diagnosed: 01/01/2023 Contusion of elbow [S50.00XA] 11/09/2022 Diagnosed: 01/01/2023 Colitis [K52.9] 12/08/2021 Diagnosed: 01/01/2023 Hiatal (more content not included)... [facility] 05-09-2024 Telephone encounter Note PATIENT HAS SIX TABLETS REMAINING Prescription Refill Information The patient has been identified by name and date of : Yes Caregiver verified no other encounters exist for this prescription request: Yes Caregiver confirmed with patient/requestor that no other refills are due, in the near future, with this provider at this time: Yes The last office visit in the department: 01/31/24 Does the patient have a future office visit with this provider/department: Yes 07/04/24 Requested Prescriptions Pending Prescriptions Disp Refills apixaban (ELIQUIS) 5 mg tab(s) 60 tablet 3 Sig: Take 1 tablet by mouth two times a day. Will start when delivered Naheed Newton May 09, 2024 9:17 AM [facility] 05-09-2024 Miscellaneous Notes PATIENT HAS SIX TABLETS REMAINING Prescription Refill Information The patient has been identified by name and date of : Yes Caregiver verified no other encounters exist for this prescription request: Yes Caregiver confirmed with patient/requestor that no other refills are due, in the near future, with this provider at this time: Yes The last office visit in the department: 01/31/24 Does the patient have a future office visit with this provider/department: Yes 07/04/24 Requested Prescriptions Pending Prescriptions Disp Refills apixaban (ELIQUIS) 5 mg tab(s) 60 tablet 3 Sig: Take 1 tablet by mouth two times a day. Will start when delivered Naheed Newton May 09, 2024 9:17 AM documented in this encounter [facility] 03-26-2024 Note [facility] Medical Records Department [address] [place] [address] Discharge Summary 03/26/24 1245 MR#: [id number] Acct: [id number] Name: ROMAIN BAILEY Rep #: [id number] : 1950 74 From: Smiley Nino DO PCP: Dr. Fatemeh Rogers MD Status:ADM ANN MARIE Location: [place] [address] Providers Date of Admission: 03/24/24 Date of Discharge: 03/26/24 Primary Care Physician: Dr. Fatemeh Rogers MD Reason For Visit: PNEUMONIA WITH INABILITY TO AMBULATE Diagnosis Discharge Diagnosis (1) Pneumonia: Status: Acute Code(s): J18.9 - Pneumonia, unspecified organism Qualifiers: Pneumonia type: due to unspecified organism Laterality: left Lung location: lower lobe of lung Qualified Code(s): J18.9 - Pneumonia, unspecified organism (2) Generalized weakness: Status: Acute Code(s): R53.1 - Weakness (3) Microcytic anemia: Status: Acute Code(s): D50.9 - Iron deficiency anemia, unspecified (4) Hypokalemia: Status: Acute Code(s): E87.6 - Hypokalemia (5) Elevated serum creatinine: Status: Acute Code(s): R79.89 - Other specified abnormal findings of blood chemistry (6) Hyperglycemia: Status: Acute Code(s): R73.9 - Hyperglycemia, unspecified Medications at Discharge Home Medications epinephrine 0.3 mg/0.3 mL injection, auto-injector 0.3 mg IM X1 ALLERGIC REACTIONS 05/04/13 loratadine 10 mg tablet 10 mg PO DAILY ALLERGIES 05/04/13 albuterol sulfate 90 mcg/actuation aerosol inhaler 2 puff inhalation Q6H PRN Sob /Or Wheezing 12/26/15 meclizine 25 mg tablet 25 mg PO Q6H PRN Dizziness 03/28/16 fluticasone propionate 50 mcg/actuation nasal spray,suspension 2 spray NASAL DAILY PRN Allergies 07/02/18 albuterol sulfate 2.5 mg/3 mL (0.083 %) solution for nebulization 2.5 mg inhalation Q4H PRN Sob /Or Wheezing 12/04/18 verapamil 240 mg tablet,extended release 240 mg PO DAILY BP #90 tabs 12/30/19 atorvastatin 40 mg tablet 40 mg PO DAILY cholesterol 11/18/21 metoprolol tartrate 25 mg tablet 25 mg PO BID 30 days #60 tabs 02/20/23 apixaban 5 mg tablet (Eliquis) 5 mg PO BID thinner #180 tabs 08/10/23 fluticasone 100 mcg-salmeterol 50 mcg/dose blistr powdr for inhalation (Advair Diskus) 1 inh inhalation BID PRN shortness of breath 12/19/23 benzonatate 100 mg capsule 100 mg PO BID PRN cough 03/24/24 ferrous sulfate 325 mg (65 mg iron) tablet (FeroSul) 325 mg PO DAILY 03/24/24 pantoprazole 40 mg tablet,delayed release 40 mg PO DAILY stomach 03/24/24 levofloxacin 750 mg tablet 750 mg PO DAILY #5 tabs 03/26/24 Hospital Course Operations None Procedures - (Chest x-ray/right knee x-ray/CT chest) Summary of Care Provided Minutes Spent on Discharge: 40 Hospital Course: Mrs. Bailey is a 74-year-old white female who presents emergency department with [facility] 03/24/2024 with a chief complaint of shortness of breath, cough, and generalized weakness. Patient reports that her symptoms started about 2 days prior to presentation with mild shortness of breath, nonproductive cough, and pleuritic type chest congestion. She reported chills and subjective fever but had no objective data to support this. She also complained of intermittent wheezing. She does have a history of asthma and uses Advair discus and albuterol inhaler. She also has a nebulizer. She stated this was ineffective for her so she came emergency department for further evaluation. She did complain that her left knee felt unstable and it was going to give out on her. She ambulates with a cane at baseline. Was initially thought that her influenza A was positive however on review of data both the PCR and the respiratory viral panel are reporting undetected for influenza A and B as well as other viral pathogen. Vital signs on presentation showed temperature of 98.4, heart rate 66, respiratory was 25 with repeated 16, blood pressure was 129/49 and pulse ox was 94% on room air. CBC showed anemia with hemoglobin 11.2 and it was microcytic. Patient has chronic microcytic anemia and states she has been on iron and has outpatient workup in progress. Repeat hemoglobin on the second day of admission was 9.7 which is more consistent with a baseline she has had as of recently. She did have a monocytosis on her differential. Chemistry panel showed mild hypokalemia and slightly elevated serum creatinine 1.03 with a baseline serum creatinine of 0.7-0.85. Initial troponin was 7 with a delta of 6. Her BNP was slightly elevated at 222.3 with no recent baseline. She never had an echocardiogram and has no signs of heart failure. Chest x-ray was suggestive of small pleural effusion versus focal airspace disease at the left base peripherally. Knee x-ray was performed due to knee pain and demonstrated a small joint effusion with no acute or healing fractures/malalignment and tricompartmental osteoarthritis. CT of the chest was performed and showed mediastinal lymphadenopathy (more content not included)... [facility] 03-14-2024 Telephone encounter Note Spoke to daughter please send rx for iron and file lab for blood work in one month Cassi Saucedo MA [facility] 03-14-2024 Miscellaneous Notes Spoke to daughter please send rx for iron and file lab for blood work in one month Cassi Saucedo MA ----- Message from Erin Corona APRN.PAPER CARRIER sent at 03/14/2024 1:29 PM EST ----- Please let the patient know anemia has improved however iron levels still low. Continue ferrous sulfate daily x one month and recheck labs. Stool test was negative for hidden blood Erin Corona APRN.CNP Daughter, Anne-Marie, reports patient's phone is not working right now, but should be later in this week. Given provider's message below with verbalized understanding. Anne-Marie states she will bring pt to lab tomorrow to complete lab draw, and machine operator hop picker stool kit. LEFT MESSAGE FOR PATIENT TO CALL OFFICE. Called and left a voicemail for the Patient to call back and ask for a nurse to receive the providers message. Dereck Hubbard RN She never had labs or stool test completed as advised on 02/13. She may not need any further treatment with iron depending on results Erin Corona APRN.PRIMO Patient began taking ferrous sulfate 325 mg once daily, as ordered by Erin Corona CNP on 02/14/24. Patient reports for the last 2 days her bowel movements have been really soft and green. Reports slight improvement in her fatigue. Still sleeping a lot. Is drinking increased fluids. Denies black stools, constipation, diarrhea, GI discomfort, or nausea. This nurse explained to patient that green bowel movements can be a side effect of this medication and to call office if begins to experience any other symptoms. Patient asking if provider wishes to reorder the ferrous sulfate for her? She reports she has a couple weeks of it left and then will be out of it. Please call patient with response. Fannie Mario RN documented in this encounter [facility] 03-14-2024 Telephone encounter Note ----- Message from Erin Corona APRN.CNP sent at 03/14/2024 1:29 PM EST ----- Please let the patient know anemia has improved however iron levels still low. Continue ferrous sulfate daily x one month and recheck labs. Stool test was negative for hidden blood Erin Corona APRN.PAPER CARRIER [facility] 03-11-2024 Telephone encounter Note Daughter, Anne-Marie, reports patient's phone is not working right now, but should be later in this week. Given provider's message below with verbalized understanding. Anne-Marie states she will bring pt to lab tomorrow to complete lab draw, and machine operator hop picker stool kit. [facility] 03-10-2024 Telephone encounter Note LEFT MESSAGE FOR PATIENT TO CALL OFFICE. [facility] 03-03-2024 Telephone encounter Note Called and left a voicemail for the Patient to call back and ask for a nurse to receive the providers message. Dereck Hubbard RN [facility] 03-03-2024 Telephone encounter Note She never had labs or stool test completed as advised on 02/13. She may not need any further treatment with iron depending on results Erin Corona APRN.PRIMO [facility] 02-29-2024 Telephone encounter Note Patient began taking ferrous sulfate 325 mg once daily, as ordered by Erin Corona CNP on 02/14/24. Patient reports for the last 2 days her bowel movements have been really soft and green. Reports slight improvement in her fatigue. Still sleeping a lot. Is drinking increased fluids. Denies black stools, constipation, diarrhea, GI discomfort, or nausea. This nurse explained to patient that green bowel movements can be a side effect of this medication and to call office if begins to experience any other symptoms. Patient asking if provider wishes to reorder the ferrous sulfate for her? She reports she has a couple weeks of it left and then will be out of it. Please call patient with response. Fannie Mario RN [facility] 02-23-2024 Telephone encounter Note Noted Follow up as needed [facility] 02-23-2024 Miscellaneous Notes Noted Follow up as needed Patient calls and states that she has been sick for a few weeks. Patient reports that now she has cold symptoms. Patient states that she has been sneezing, coughing, and her nose has been plugged. Patient has been blowing out green with blood tinge mucous. Patient states that she has been short of breath off and on but that is because her nose is plugged. When patient blows out nose then she can breath. Patient is worried that she has RSV because she had RSV last time. Patient is asking what she should do and if she should call the squad to come and get her since her daughter is at work. Advised patient that if she has increased shortness of breath or if her symptoms become worse then she should call the squad so that they can take her to ER to be evaluated. Patient voiced understanding. Advised patient that if she has mild symptoms then she could always go to [facility] to be evaluated. They could test her for RSV. Patient voiced understanding. Sadaf Monae RN documented in this encounter [facility] 02-22-2024 Telephone encounter Note Patient calls and states that she has been sick for a few weeks. Patient reports that now she has cold symptoms. Patient states that she has been sneezing, coughing, and her nose has been plugged. Patient has been blowing out green with blood tinge mucous. Patient states that she has been short of breath off and on but that is because her nose is plugged. When patient blows out nose then she can breath. Patient is worried that she has RSV because she had RSV last time. Patient is asking what she should do and if she should call the squad to come and get her since her daughter is at work. Advised patient that if she has increased shortness of breath or if her symptoms become worse then she should call the squad so that they can take her to ER to be evaluated. Patient voiced understanding. Advised patient that if she has mild symptoms then she could always go to [facility] to be evaluated. They could test her for RSV. Patient voiced understanding. Sadaf Monae RN [facility] 02-14-2024 Telephone encounter Note Patient was notified as well daughter. Please send rx to niyah Saucedo MA [facility] 02-14-2024 Miscellaneous Notes Patient was notified as well daughter. Please send rx to niyah Saucedo MA Please let the patient know her CT scan of the brain was normal. Kidney function was fine. On her CBC her Hgb has dropped down to 9.8 from 11.3 three weeks ago. The anemia and sudden drop is likely the cause of all of her symptoms. The drop in hemoglobin is concerning for slow blood loss from the GI tract. Start iron supplement daily, which local pharmacy should this go to? We will need to keep a close eye on her blood counts, recheck on Sunday along with stool test to look for hidden blood. Please reinforce with patient if her symptoms were to worsen at all she needs to go to the ER or call 911. Especially if she becomes SOB, feels faint or passes out. Erinaudi Corona APRN.CNP documented in this encounter [facility] 02-14-2024 Telephone encounter Note Please let the patient know her CT scan of the brain was normal. Kidney function was fine. On her CBC her Hgb has dropped down to 9.8 from 11.3 three weeks ago. The anemia and sudden drop is likely the cause of all of her symptoms. The drop in hemoglobin is concerning for slow blood loss from the GI tract. Start iron supplement daily, which local pharmacy should this go to? We will need to keep a close eye on her blood counts, recheck on Sunday along with stool test to look for hidden blood. Please reinforce with patient if her symptoms were to worsen at all she needs to go to the ER or call 911. Especially if she becomes SOB, feels faint or passes out. Erin Corona APRN.CNP [facility] 02-14-2024 History of Present illness Narrative Radiology Service Progress Note PATIENT NAME: Romain Bailey DATE OF SERVICE: February 14, 2024 TIME: 3:54 PM PATIENT IDENTITY VERIFICATION COMPLETED USING TWO (2) IDENTIFIERS: Name and Date of confirmed by patient verbally. FALL SCREENING: Has the patient had 2 falls in the last year or 1 fall with injury or currently using an Ambulatory Assistive Device (Walker, Cane, Wheelchair, Crutches, etc.)? No PATIENT GENDER DATA: Female. status: : No status: NO. PATIENT RELEVANT IMPLANT DATA REVIEWED: Yes PATIENT PRESENTS WITH AN IMPLANTABLE OR ATTACHED SIGNWRITER: No RADIOLOGY DEPARTMENT: CT; Exam(s) Completed: Brain PERIPHERAL IV DATA: Not applicable SIGNED BY: RT Michelle(R) February 14, 2024 3:54 PM documented in this encounter [facility] 02-14-2024 Note HNO ID: [id number] Author: ASTRID KAUR RT(R) Service: ? Author Type: Gang Sawyer Type: Progress Notes Filed: 02/14/2024 15:55 Note Text: Radiology Service Progress Note PATIENT NAME: Romain Bailey DATE OF SERVICE: February 14, 2024 TIME: 3:54 PM PATIENT IDENTITY VERIFICATION COMPLETED USING TWO (2) IDENTIFIERS: Name and Date of confirmed by patient verbally. FALL SCREENING: Has the patient had 2 falls in the last year or 1 fall with injury or currently using an Ambulatory Assistive Device (Walker, Cane, Wheelchair, Crutches, etc.)? No PATIENT GENDER DATA: Female. status: : No status: NO. PATIENT RELEVANT IMPLANT DATA REVIEWED: Yes PATIENT PRESENTS WITH AN IMPLANTABLE OR ATTACHED SIGNWRITER: No RADIOLOGY DEPARTMENT: CT; Exam(s) Completed: Brain PERIPHERAL IV DATA: Not applicable SIGNED BY: RT Michelle(R) February 14, 2024 3:54 PM [facility] 02-13-2024 Instructions Erin Corona, ANNAL[facility] - 02/13/2024 6:41 PM EST GENERAL INFORMATION: Almost everyone has a headache occasionally. Most headaches are caused by tension, eye strain, or emotional upset. Headaches can also occur with many medical illnesses. They may be a side effect of some medications. A headache that occurs without other symptoms and only lasts a few hours probably isn't a cause for concern. INSTRUCTIONS: 1. You may use iufn-hrz-kzezgfr pain medication such as acetaminophen, ibuprofen, or aspirin unless your recommmended otherwise. 2. Try some of the following measures to relieve your headache: Stretch and massage the muscles in your shoulders, neck, jaw, and scalp. Take a hot bath. Rest in a quiet, darkened room. Place a warm or cold wet cloth (whichever feels better to you) over the aching area. 3. Don't skip meals or delay meals for very long. Drink plenty of fluids. 4. Avoid alcoholic beverages and cigarette smoking. These often make a headache worse. 5. Get plenty of rest. A good night's sleep often is the best way to relieve a headache. CALL THE OFFICE IF: 1. Your headache gets worse 2. You develop a temperature over 100.5 F (38 C) 3. You need to take medicine to relieve headache pain more than 3 times a week. GO TO ER OR CALL 911 IF: 1. Your headache is different from any headache you ever had before, or is the worst headache of your life. 2. You feel confused or drowsy. 3. Your neck feels stiff. 4. You have a temperature of 102 F (39 C) or higher. 5. You have eye problems such as sensitivity to light or blurred or double vision. 6. You start to vomit. 7. You have difficulty walking, talking, or moving your arms or legs. documented in this encounter [facility] 02-13-2024 Note HNO ID: [id number] Author: ERIN CORONA APRN.PAPER CARRIER Service: ? Author Type: Nurse Practitioner Type: Progress Notes Filed: 02/13/2024 18:56 Note Text: CC Patient presents with: Headache: X 1 month, stiff neck Dizziness: Intermittent x 1 week with position changes HPI Romain Bailey is a 73 year old year old female who presents with complaint of headache. Symptoms started about one month ago when she went to the ER for GI symptoms. She has not been feeling right since then. Pain is located: like a band around her head Pain is described as: throbbing but sometimes sharp. It is constant but varies in intensity. Can be severe at times, at its worst she rates it a 9 out of 10 Triggers: The patient is not aware of any specific triggers. Associated with dizziness for the past week. Described as feeling off balance with position changes. She has to hold onto things to stay upright. Also reports for the past two weeks her neck has been hurting and feels stiff. Denies nausea, vomiting, light/sound sensitivity Aggravated by: nothing she can think of Neurologic symptoms: Denies thunderclap headache, visual disturbance, numbness, weakness, slurred speech, clumsiness, change in level of consciousness, change in orientation, and change in behavior History of migraines/headaches: migraines in her 20's but none for years Injury/Trauma: No Caffeine Intake: No Alcohol Intake: No Medication changes: no Treatments: resting in quiet dark room, minor analgesics- Tylenol, and cool compresses. These do provide temporary relief. Review of Systems Constitutional: Positive for fatigue. Negative for activity change, appetite change, chills, diaphoresis, fever and unexpected weight change. HENT: Negative for congestion, ear pain, rhinorrhea, sinus pain, sneezing, sore throat, tinnitus and trouble swallowing. Eyes: Negative for pain. Respiratory: Negative for cough, shortness of breath and wheezing. Cardiovascular: Negative for chest pain, palpitations and leg swelling. Gastrointestinal: Negative for abdominal pain, blood in stool, constipation, diarrhea, nausea and vomiting. Genitourinary: Negative for decreased urine volume, difficulty urinating, dysuria, frequency, hematuria and urgency. Musculoskeletal: Negative for arthralgias, back pain, joint swelling and myalgias. PAST MEDICAL HISTORY Diagnosis Date Arthropathy, unspecified, [...] right tibial area PAST SURGICAL HISTORY OF [facility] PAST SURGICAL HISTORY OF Right 11/2022 Tear duct bocklage lanced TOTAL ABDOMINAL HYSTERECT W/WO RMVL TUBE OVARY 1999 MAURICE/BSO-pain, no abnormal paps ALLERGIES Bactrim Ds [Sulfamethoxazole-Trimethoprim], Bee Sting, Adhesive Tape (Rosins), Darvon [Propoxyphene Hcl], Influenza Virus Vaccines, and Pepper (Genus Capsicum) MEDICATIONS ondansetron orally disintegrating (ZOFRAN ODT) 4 mg disintegrating tablet Take 1 tablet by mouth every 8 hours as needed for nausea/vomiting. apixaban (ELIQUIS) 5 mg tab(s) Take 1 tablet by mouth two times a day. Will start when delivered EPINEPHrine (EPIPEN) 0.3 mg/0.3 mL auto-injector Inject 0.3 ml intramuscular as needed. pantoprazole DR (PROTONIX) 20 mg tablet Take 1 tablet by mouth once daily. atorvastatin (LIPITOR) 40 mg tablet Take 1 tablet by mouth once daily. verapamil SR (CALAN SR) 240 mg CR tablet Take 1 tablet by mouth daily at bedtime. albuterol HFA (PROVENTIL HFA, VENTOLIN HFA) 90 [...] 1 gram tablet Take 1 tablet by (more content not included)... [facility] 02-13-2024 History of Present illness Narrative CC Patient presents with: Headache: X 1 month, stiff neck Dizziness: Intermittent x 1 week with position changes HPI Romain Bailey is a 73 year old year old female who presents with complaint of headache. Symptoms started about one month ago when she went to the ER for GI symptoms. She has not been feeling right since then. Pain is located: like a band around her head Pain is described as: throbbing but sometimes sharp. It is constant but varies in intensity. Can be severe at times, at its worst she rates it a 9 out of 10 Triggers: The patient is not aware of any specific triggers. Associated with dizziness for the past week. Described as feeling off balance with position changes. She has to hold onto things to stay upright. Also reports for the past two weeks her neck has been hurting and feels stiff. Denies nausea, vomiting, light/sound sensitivity Aggravated by: nothing she can think of Neurologic symptoms: Denies thunderclap headache, visual disturbance, numbness, weakness, slurred speech, clumsiness, change in level of consciousness, change in orientation, and change in behavior History of migraines/headaches: migraines in her 20's but none for years Injury/Trauma: No Caffeine Intake: No Alcohol Intake: No Medication changes: no Treatments: resting in quiet dark room, minor analgesics- Tylenol, and cool compresses. These do provide temporary relief. Review of Systems Constitutional: Positive for fatigue. Negative for activity change, appetite change, chills, diaphoresis, fever and unexpected weight change. HENT: Negative for congestion, ear pain, rhinorrhea, sinus pain, sneezing, sore throat, tinnitus and trouble swallowing. Eyes: Negative for pain. Respiratory: Negative for cough, shortness of breath and wheezing. Cardiovascular: Negative for chest pain, palpitations and leg swelling. Gastrointestinal: Negative for abdominal pain, blood in stool, constipation, diarrhea, nausea and vomiting. Genitourinary: Negative for decreased urine volume, difficulty urinating, dysuria, frequency, hematuria and urgency. Musculoskeletal: Negative for arthralgias, back pain, joint swelling and myalgias. PAST MEDICAL HISTORY Diagnosis Date Arthropathy, unspecified, [...] Virus Vaccines, and Pepper (Genus Capsicum) MEDICATIONS ondansetron orally disintegrating (ZOFRAN ODT) 4 mg disintegrating tablet Take 1 tablet by mouth every 8 hours as needed for nausea/vomiting. apixaban (ELIQUIS) 5 mg tab(s) Take 1 tablet by mouth two times a day. Will start when delivered EPINEPHrine (EPIPEN) 0.3 mg/0.3 mL auto-injector Inject 0.3 ml intramuscular as needed. pantoprazole DR (PROTONIX) 20 mg tablet Take 1 tablet by mouth once daily. atorvastatin (LIPITOR) 40 mg tablet Take 1 tablet by mouth once daily. verapamil SR (CALAN SR) 240 mg CR tablet Take 1 tablet by mouth daily at bedtime. albuterol HFA (PROVENTIL HFA, VENTOLIN HFA) 90 [...] Take 1 tablet by mouth as needed. loratadine (CLARITIN) 10 mg tablet Take 1 tablet by mouth once daily. albuterol (PROVENTIL) 2.5 mg /3 mL (0.083 %) nebulizer solution Use 3 mL via nebulizer every 4 hours as needed for wheezing/shortness of breath. Use over 5-15minutes. meclizine (ANTIVERT) 25 mg tab Take 1 tablet by mouth every 6 hours as needed (dizziness). Nebulizer NEBULIZER FOR HOME USE. DX: J45.20 cephALEXin (KEFLEX) 500 mg capsule every 12 hours. (Patient not taking: Reported on 02/13/2024) metoprolol tartrate, short acting, (LOPRESSOR) 25 mg tablet Take 1 tablet by mouth two times a day. (Patient not taking: Reported on 07/30/2023) FAMILY HISTORY Problem Relation Age of Onset None Mother from fall Diabetes Father Ischemic Heart Disease Father d. [place] Ischemic Heart Disease Maternal Grandfather d. [place] while holding her at 4mo Blindness Brother Heart Attack Brother Social History Tobacco Use Smoking status: Never Smokeless tobacco: Never Vaping Use Vaping status: Never Used Substance Use Topics Alcohol use: No Drug use: No BP 122/70 (BP Site: Right Arm, BP Position: Sitting, BP Cuff Size: Regular Adult) Pulse 65 Temp 36.4 C (97.6 F) Resp 16 SpO2 97% Physical Exam Vitals reviewed. Constitutional: General: She is not in acute distress. Appearance: She is ill-appearing. She is not toxic-appearing. HENT: Head: Normocephalic and atraumatic. Comments: Tenderness with palpation of the forehead. No temporal artery tenderness, bruits, pulsations. Right Ear: Tympanic membrane normal. Left Ear: Tympanic membrane normal. Nose: Right Sinus: Frontal sinus tenderness present. No maxillary sinus tenderness. Left Sinus: Frontal sinus tenderness present. No maxillary sinus tenderness. Eyes: Extraocular Movements: Extraocular movements intact. Conjunctiva/sclera: Conjunctivae normal. Pupils: Pupils are equal, round, and reactive to light. Cardiovascular: Rate and Rhythm: Normal rate and regular rhythm. Pulses: Normal pulses. Heart sounds: Murmur heard. Pulmonary: Effort: Pulmonary effort is normal. Breath sounds: Normal breath sounds and air entry. No wheezing, rhonchi or rales. Abdominal: Tenderness: There is no abdominal tenderness. There is no right CVA tenderness or left CVA tenderness. Musculoskeletal: Cervical back: Neck supple. No rigidity or torticollis. Pain with movement and muscular tenderness (trapezius muscles) present. No spinous process tenderness. Normal range of motion. Right lower leg: No edema. Left lower leg: No edema. Lymphadenopathy: Cervical: No cervical adenopathy. Upper Body: Right upper body: No supraclavicular adenopathy. Left upper body: No supraclavicular adenopathy. Skin: General: Skin is warm and dry. Coloration: Skin is pale. Neurological: General: No focal deficit present. Mental Status: She is alert and oriented to person, place, and time. Cranial Nerves: Cranial nerves 2-12 are intact. Sensory: Sensation is intact. Motor: Motor function is intact. No weakness or tremor. Coordination: Coordination is intact. Present: unable to evaluate due to lightheadedness. Coordination normal. Xvcufn-Mrrc-Yccyhh Test normal. Rapid alternating movements normal. Gait: Gait abnormal (ataxic). Tandem gait test: unable to evaluate due to lightheadedness. Deep Tendon Reflexes: Reflexes are normal and symmetric. DATA REVIEWED: Most recent labs. Outside chart from [facility] ER last month reviewed. ASSESSMENT/PLAN: 1. New persistent daily headache - ICD9: 339.42, ICD10: G44.52 (primary diagnosis) Etiology unclear. Neuro exam benign however given patient's age and new onset dizziness with gait disturbance x 1 week recommend further evaluation in ER. Patient declined, does not feel it is necessary. Discussed potential cause of symptoms including stroke and complications if left untreated but she continues to decline ER. She is agreeable to go if her symptoms worsen at all Will order stat work-up with: - CT BRAIN WO IVCON - COMPLETE BLOOD COUNT - COMPREHENSIVE METABOLIC PANEL - SEDIMENTATION RATE, WESTERGREN - C-REACTIVE PROTEIN Follow-up pending results Continue with current symptom management for now 2. Dizziness - ICD9: 780.4, ICD10: R42 As above - CT BRAIN WO IVCON - COMPLETE BLOOD COUNT - COMPREHENSIVE METABOLIC PANEL 3. Balance problem - ICD9: 781.99, ICD10: R26.89 As above - CT BRAIN WO IVCON 4. Gait abnormality - ICD9: 781.2, ICD10: R26.9 As above Prescription instructions reviewed with patient as applicable. Potential red flag symptoms discussed with the patient. Reviewed appropriate action plan to take if red flag symptoms occur. Patient agreeable to treatment plan. Erin Corona APRN.PAPER CARRIER documented in this encounter [facility] 02-13-2024 Telephone encounter Note Please see if patient's daughter is able to bring her in a little earlier than 6:40 Erin Corona APRN.PAPER CARRIER [facility] Work Phone: 02-13-2024 Miscellaneous Notes Please see if patient's daughter is able to bring her in a little earlier than 6:40 Erin Corona APRN.PAPER CARRIER Pt reports she is having headache for 1 month. Protocol recommends see provider in 24 hours. Scheduled same day appt at a time when daughter is able to bring patient. Reason for Disposition [1] MODERATE headache (e.g., interferes with normal activities) AND [2] present > 24 hours AND [3] unexplained (Exceptions: Pain medicines not tried, typical migraine, or headache part of viral illness.) Answer Assessment - Initial Assessment Questions 1. LOCATION: Headache starts above the both eyebrows, radiates to mandaeism, then to back of head. Feels like a tight band. 2. ONSET: Has been about a month. Almost everyday. 3. PATTERN: Constant dull ache, and increases to sharp pain. 4. SEVERITY: Mild to Moderate to Severe. Hasn't slept well this past week. 5. RECURRENT SYMPTOM: Hx of migraines in her 30's or 40's. Took medication at that time, laid in a dark room. 6. CAUSE: No idea. Doesn't think its stress. 7. MIGRAINE: Hx of migraines in her 30's and 40's. Headache having now is not similar to that. 8. HEAD INJURY: No 9. OTHER SYMPTOMS:Stiff neck- neck feels tight. A little eye pain- not much. Dizziness- feels like room is tilting and she will pass out. Has not past out. Dizziness started yesterday- 5 or 6 times. Has not happened today yet. 10. : No. Hx hysterectomy. Protocols used: [id number] documented in this encounter [facility] 02-13-2024 Telephone encounter Note Pt reports she is having headache for 1 month. Protocol recommends see provider in 24 hours. Scheduled same day appt at a time when daughter is able to bring patient. Reason for Disposition [1] MODERATE headache (e.g., interferes with normal activities) AND [2] present > 24 hours AND [3] unexplained (Exceptions: Pain medicines not tried, typical migraine, or headache part of viral illness.) Answer Assessment - Initial Assessment Questions 1. LOCATION: Headache starts above the both eyebrows, radiates to mandaeism, then to back of head. Feels like a tight band. 2. ONSET: Has been about a month. Almost everyday. 3. PATTERN: Constant dull ache, and increases to sharp pain. 4. SEVERITY: Mild to Moderate to Severe. Hasn't slept well this past week. 5. RECURRENT SYMPTOM: Hx of migraines in her 30's or 40's. Took medication at that time, laid in a dark room. 6. CAUSE: No idea. Doesn't think its stress. 7. MIGRAINE: Hx of migraines in her 30's and 40's. Headache having now is not similar to that. 8. HEAD INJURY: No 9. OTHER SYMPTOMS:Stiff neck- neck feels tight. A little eye pain- not much. Dizziness- feels like room is tilting and she will pass out. Has not past out. Dizziness started yesterday- 5 or 6 times. Has not happened today yet. 10. : No. Hx hysterectomy. Protocols used: [id number] [facility] 01-31-2024 Note HNO ID: [id number] Author: FAITH MULLINS APRN.FINANCIAL SALES CONSULTANT Service: ? Author Type: Nurse Specialist Type: Progress Notes Filed: 01/31/2024 11:30 Note Text: SUBJECTIVE: Spirometry Never done Shingrix Vaccine(1 of 2) Never done RSV Vaccine(1 - Risk 60-74 years 1-dose series) Never done Mammogram Screening due on 06/26/2017 HPI Romain Bailey is a 73 year [...] of Tia (Transient Ischemic Attack) Dry Skin History of Asthma Acquired Stenosis of Nasolacrimal Duct, Right Unspecified Dacryocystitis of Right Lacrimal Passage Unspecified Injury of Right Lower Leg, Initial Encounter Chest Pain Contusion of Left Wrist Contusion of Knee, Left Contusion of Elbow Colitis Presents for [facility] emergency department follow-up visit. She was seen on January 26, 2024 for epigastric abdominal pain nausea vomiting and diarrhea. She noted abdominal pain could radiate up to her chest. Noted she was taking Zofran at home without any improvement. She did not notice dysuria urgency or frequency. She reported intermittent sinus congestion. CT of the abdomen and pelvis was completed. EKG and chest x-ray completed. CBC without concerning findings other than baseline mild anemia. CMP unremarkable. Lipase unremarkable. Troponin negative. Urinalysis did show UTI. CT showed no acute abnormality. Does have small hiatal hernia. She has been followed Dr. Cowan knockout worker, last seen a couple of months ago. She notes some persisting nausea but no vomiting, she has mild epigastric discomfort. No diarrhea. Afebrile. She was feeling improved but ate pork chops and green beans yesterday and did not feel well with it, otherwise feeling improved. Notes some neck discomfort and stiffness, may have slept wrong. Defers medication or additional measures at this time, will just use a heating pad. Review of Systems Constitutional: Negative. Objective BP 110/68 Pulse 99 Resp 16 Wt 87.5 kg (192 lb 14.4 oz) BMI 31.14 kg/m? Physical Exam Vitals and nursing note [...] sounds are normal. Palpations: Abdomen is soft. Skin: General: Skin is warm and dry. Neurological: General: No focal deficit present. Mental Status: She is alert and oriented to person, place, and time. ALLERGIES Allergen Reactions Bactrim Ds [Sulfame* Anaphylaxis Difficulty breathing, fever, chills Bee Sting Anaphylaxis Adhesive Tape (Marilou* Rash Darvon [Propoxyphen* Influenza Virus Vac* Other: See Comments Chest tightness, arm swelling. Pepper (Genus Capsi* Hives Medications cephALEXin (KEFLEX) 500 mg capsule every 12 hours. apixaban (ELIQUIS) 5 mg tab(s) Take 1 tablet by mouth two times a day. Will start when delivered EPINEPHrine (EPIPEN) 0.3 mg/0.3 mL auto-injector Inject 0.3 ml intramuscular as needed. pantoprazole DR (PROTONIX) 20 mg tablet Take 1 tablet by mouth once daily. atorvastatin (LIPITOR) 40 mg tablet Take 1 tablet by mouth once daily. verapamil SR (CALAN SR) 240 mg CR tablet Take 1 tablet by mouth daily at bedtime. albuterol HFA (PROVENTIL HFA, VENTOLIN HFA) 90 [...] 1 gram tablet Take 1 tablet by daren (more content not included)... [facility] 01-31-2024 History of Present illness Narrative SUBJECTIVE: Spirometry Never done Shingrix Vaccine(1 of 2) Never done RSV Vaccine(1 - Risk 60-74 years 1-dose series) Never done Mammogram Screening due on 06/26/2017 HPI Romain Bailey is a 73 year [...] of Tia (Transient Ischemic Attack) Dry Skin History of Asthma Acquired Stenosis of Nasolacrimal Duct, Right Unspecified Dacryocystitis of Right Lacrimal Passage Unspecified Injury of Right Lower Leg, Initial Encounter Chest Pain Contusion of Left Wrist Contusion of Knee, Left Contusion of Elbow Colitis Presents for [facility] emergency department follow-up visit. She was seen on January 26, 2024 for epigastric abdominal pain nausea vomiting and diarrhea. She noted abdominal pain could radiate up to her chest. Noted she was taking Zofran at home without any improvement. She did not notice dysuria urgency or frequency. She reported intermittent sinus congestion. CT of the abdomen and pelvis was completed. EKG and chest x-ray completed. CBC without concerning findings other than baseline mild anemia. CMP unremarkable. Lipase unremarkable. Troponin negative. Urinalysis did show UTI. CT showed no acute abnormality. Does have small hiatal hernia. She has been followed DrGio Cowan knockout worker, last seen a couple of months ago. She notes some persisting nausea but no vomiting, she has mild epigastric discomfort. No diarrhea. Afebrile. She was feeling improved but ate pork chops and green beans yesterday and did not feel well with it, otherwise feeling improved. Notes some neck discomfort and stiffness, may have slept wrong. Defers medication or additional measures at this time, will just use a heating pad. Review of Systems Constitutional: Negative. Objective BP 110/68 Pulse 99 Resp 16 Wt 87.5 kg (192 lb 14.4 oz) BMI 31.14 kg/m Physical Exam Vitals and nursing note [...] sounds are normal. Palpations: Abdomen is soft. Skin: General: Skin is warm and dry. Neurological: General: No focal deficit present. Mental Status: She is alert and oriented to person, place, and time. ALLERGIES Allergen Reactions Bactrim Ds [Sulfame* Anaphylaxis Difficulty breathing, fever, chills Bee Sting Anaphylaxis Adhesive Tape (Marilou* Rash Darvon [Propoxyphen* Influenza Virus Vac* Other: See Comments Chest tightness, arm swelling. Pepper (Genus Capsi* Hives Medications cephALEXin (KEFLEX) 500 mg capsule every 12 hours. apixaban (ELIQUIS) 5 mg tab(s) Take 1 tablet by mouth two times a day. Will start when delivered EPINEPHrine (EPIPEN) 0.3 mg/0.3 mL auto-injector Inject 0.3 ml intramuscular as needed. pantoprazole DR (PROTONIX) 20 mg tablet Take 1 tablet by mouth once daily. atorvastatin (LIPITOR) 40 mg tablet Take 1 tablet by mouth once daily. verapamil SR (CALAN SR) 240 mg CR tablet Take 1 tablet by mouth daily at bedtime. albuterol HFA (PROVENTIL HFA, VENTOLIN HFA) 90 [...] Take 1 tablet by mouth as needed. loratadine (CLARITIN) 10 mg tablet Take 1 tablet by mouth once daily. albuterol (PROVENTIL) 2.5 mg /3 mL (0.083 %) nebulizer solution Use 3 mL via nebulizer every 4 hours as needed for wheezing/shortness of breath. Use over 5-15minutes. ondansetron orally disintegrating (ZOFRAN ODT) 4 mg [...] day. (Patient not taking: Reported on 07/30/2023) PAST MEDICAL HISTORY Diagnosis Date Arthropathy, unspecified, site unspecified Asthma Back pain Calculus of kidney 05/09/2018 Colon polyps 2014 Diverticulitis 2001 Environmental allergies GERD (gastroesophageal reflux disease) Hyperlipidemia lifestyle controlled Hypertension IBS (irritable bowel syndrome) Migraine Obesity Pseudophakia 12/2021 both Social History Tobacco Use Smoking status: Never Smokeless tobacco: Never Vaping Use Vaping status: Never Used Substance Use Topics Alcohol use: No Drug use: No ASSESSMENT/PLAN: 1. Nausea vomiting and diarrhea - ICD9: 787.91, 787.01, ICD10: R11.2, R19.7 (primary diagnosis) 2. Hiatal hernia - ICD9: 553.3, ICD10: K44.9 For now recommend / information provided via [employer] as had to leave. Take ondansetron as needed for nausea and vomiting. Drink sufficient fluids, aim for 64 ounces per day Drink at least 8 ounces of Pedialyte, broth or Gatorade daily until feeling improved. Eat as tolerated, try smaller meals while feeling ill and ongoing Try eating saltine crackers, broth soups, starches/cereals (potatoes, noodles, rice, wheat, and oat) with some salt are excellent foods to consider. In addition, crackers, bananas, yogurt, soups, and boiled vegetables are also good choices Avoid beef, pork, fried or fast foods for now until feeling better. Let us know if not feeling improved. Consider seeing Dr Friend if you are not feeling improved also. Go to ER if unable to keep fluids or food down for 24 hours or greater Here is some information about hiatal hernia which was seen on your imaging at [facility]: What is a hiatal hernia? A hiatal hernia is when a part of the stomach moves up into the chest area. Normally, the stomach sits below the diaphragm. The diaphragm is the layer of muscle that separates the organs in the chest from the organs in the belly. The esophagus, the tube that carries food from the mouth to the stomach, passes through a hole in the diaphragm. In people with a hiatal hernia, the stomach pushes up through that hole, too. There are 2 types of hiatal hernia ?Sliding hernia - This is when the top of the stomach and the lower part of the esophagus squeeze up into the space above the diaphragm. This is the most common type of hiatal hernia. ?Paraesophageal hernia - This is when the top of the stomach squeezes up into the space above the diaphragm. This is not very common, but it can be serious if the stomach folds up on itself. It can also cause bleeding from the stomach or trouble breathing. What are the symptoms of a hiatal hernia? A hiatal hernia does not usually cause symptoms. In some cases, though, it can cause stomach acid to leak into the esophagus. This is called acid reflux or gastroesophageal reflux. It can cause symptoms like: ?Burning in the chest, known as h?artb?rn ?Burning in the throat or an acid taste in the throat ?Stomach or chest pain ?Trouble swallowing ?A raspy voice or a sore throat ?Unexplained cough Is there a test for hiatal hernia? Yes. But in most cases, people learn they have a hiatal hernia when they are having tests to find the cause of symptoms, or for other reasons. For instance, some people find out they have a hiatal hernia when they get an X-ray. Others find out when their doctor does a test called an ?o?y. This test involves putting a tube with a tiny camera down the throat How are hiatal hernias treated? People who have symptoms caused by a hiatal hernia can get treatment for their symptoms. Treatment for symptoms involves taking the medicines that are used for acid reflux People with a paraesophageal hernia, and some people with a sliding hernia, need surgery. For this surgery, the surgeon pulls the stomach back down and repairs the hole in the diaphragm. This way, the stomach does not slide up again. Faith Mullins APRN.TONI Medical Decision Making: Problems: Moderate: Acute illness with systemic symptoms Data: Unique source(s) for external note(s) reviewed: 1 Unique test result(s) reviewed: 3+ Risk: Moderate: Drug management Medical Decision Making Level: 4 - Moderate documented in this encounter [facility] 01-30-2024 Telephone encounter Note Patient calling with request for advice Patient denies any new or worsening symptoms of which a provider is not aware: Yes. Patient states her symptoms have not resolved since seen in ED. Patient wondering if she should keep her appointment today with her PCP regarding ED follow up. Advised patient to keep appointment if possible. GO TO THE EMERGENCY ROOM OR CALL 911 IF: * You develop any new symptoms * Your condition worsens * You are concerned or anxious about your condition for any other reason. If you have any questions, you can call Nurse operations vice president back. [facility] 01-30-2024 Miscellaneous Notes Patient calling with request for advice Patient denies any new or worsening symptoms of which a provider is not aware: Yes. Patient states her symptoms have not resolved since seen in ED. Patient wondering if she should keep her appointment today with her PCP regarding ED follow up. Advised patient to keep appointment if possible. GO TO THE EMERGENCY ROOM OR CALL 911 IF: * You develop any new symptoms * Your condition worsens * You are concerned or anxious about your condition for any other reason. If you have any questions, you can call Nurse operations vice president back. documented in this encounter [facility] 01-11-2024 Instructions Faith Mullins APRN.CNS - 01/11/2024 11:18 AM EST RUTH bandage is recommended. Rest and elevate the affected painful area. Apply ice to your knee for 15-20 minutes 3-4 times per day. Use your knee brace along with cane or wlker when walking As pain recedes, begin normal activities slowly as tolerated. Call if symptoms persist. Make an appointment with orthopedic doctor. documented in this encounter [facility] 01-11-2024 Note HNO ID: [id number] Author: FAITH MULLINS APRN.CNS Service: ? Author Type: Nurse Specialist Type: Progress Notes Filed: 01/11/2024 11:30 Note Text: SUBJECTIVE: Spirometry Never done Depression Screening Never done Anxiety Screening Never done Shingrix Vaccine(1 of 2) Never done RSV Vaccine(1 - Risk 60-74 years 1-dose series) Never done Mammogram Screening due on 06/26/2017 Colorectal Cancer Screening due on 05/30/2023 Influenza Vaccine(1) due on 10/28/2023 Covid-19 Vaccine( season) due on 10/28/2023 MARIO Bailey is a 73 year old female. [...] of Tia (Transient Ischemic Attack) Dry Skin History of Asthma Acquired Stenosis of Nasolacrimal Duct, 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 reports colonoscopy about 2 years ago. Without current GI complaints. Notes daily BM. Notes some allergy symptoms, stuffy nose, itchy eyes, using loratadine which helps somewhat, not currently using flonase. She reports chronic right knee pain, 2 falls recently. Notes some mild swelling. Has not sought care with the falls, able to ambulate with a cane but continues to note pain. Has been taking noda-vzq-aedrgxo ibuprofen which has helped somewhat. Knows she needs to follow-up with orthopedic provider. Holding off until she has more secure transportation, daughter is currently using her car. HTN: Occasional palpitations. headache, chest pain, dyspnea, peripheral edema, orthopnea, fatigue, and PND. Last 14 Encounter BP Readings: Date: BP: 01/11/2024 132/66 07/30/2023 127/73 07/26/2023 155/67 07/04/2023 138/70 06/08/2023 118/64 03/19/2023 136/73 03/12/2023 129/71 02/27/2023 122/72 02/10/2023 134/76 01/01/2023 126/77 11/25/2022 128/74 11/16/2022 170/80 09/07/2022 126/72 08/10/2022 108/50 Hyperlipidemia. Ms. Bailey reports doing well on [...] 06/30/2022 224 Review of Systems Constitutional: Negative. Musculoskeletal: Positive for arthralgias. Objective BP 132/66 Pulse 62 Temp 36.9 ?C (98.5 ?F) Resp 16 Wt 87.6 kg (193 lb 2 oz) SpO2 98% BMI 31.17 kg/m? Physical Exam Vitals and nursing note [...] normal. Palpations: Abdomen is soft. Musculoskeletal: Right knee: Effusion (small lateral to patella) present. No swelling. Decreased range of motion. Tenderness present. Skin: General: Skin is warm and dry. Neurological: General: No focal deficit present. Mental Status: She is alert and oriented to person, place, and time. ALLERGIES Allergen Reactions Bactrim Ds [Sulfame* Anaphylaxis Difficulty breathing, fever, chills Bee Sting Anaphylaxis Adhesive Tape (Marilou* Rash Darvon [Propoxyphen* Influenza Virus Vac* Other: See Comments Chest tightness, arm swelling. Pepper (Genus Capsi* Hives Medications apixaban (ELIQUIS) 5 mg tab(s) Take 1 tablet by mouth two times a day. Will start wh (more content not included)... [facility] 01-11-2024 History of Present illness Narrative SUBJECTIVE: Spirometry Never done Depression Screening Never done Anxiety Screening Never done Shingrix Vaccine(1 of 2) Never done RSV Vaccine(1 - Risk 60-74 years 1-dose series) Never done Mammogram Screening due on 06/26/2017 Colorectal Cancer Screening due on 05/30/2023 Influenza Vaccine(1) due on 10/28/2023 Covid-19 Vaccine( season) due on 10/28/2023 HPI Romain Bailey is a 73 year [...] of Tia (Transient Ischemic Attack) Dry Skin History of Asthma Acquired Stenosis of Nasolacrimal Duct, 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 reports colonoscopy about 2 years ago. Without current GI complaints. Notes daily BM. Notes some allergy symptoms, stuffy nose, itchy eyes, using loratadine which helps somewhat, not currently using flonase. She reports chronic right knee pain, 2 falls recently. Notes some mild swelling. Has not sought care with the falls, able to ambulate with a cane but continues to note pain. Has been taking bowi-unf-yftteii ibuprofen which has helped somewhat. Knows she needs to follow-up with orthopedic provider. Holding off until she has more secure transportation, daughter is currently using her car. HTN: Occasional palpitations. headache, chest pain, dyspnea, peripheral edema, orthopnea, fatigue, and PND. Last 14 Encounter BP Readings: Date: BP: 01/11/2024 132/66 07/30/2023 127/73 07/26/2023 155/67 07/04/2023 138/70 06/08/2023 118/64 03/19/2023 136/73 03/12/2023 129/71 02/27/2023 122/72 02/10/2023 134/76 01/01/2023 126/77 11/25/2022 128/74 11/16/2022 170/80 09/07/2022 126/72 08/10/2022 108/50 Hyperlipidemia. Ms. Bailey reports doing well on [...] 06/30/2022 224 Review of Systems Constitutional: Negative. Musculoskeletal: Positive for arthralgias. Objective BP 132/66 Pulse 62 Temp 36.9 C (98.5 F) Resp 16 Wt 87.6 kg (193 lb 2 oz) SpO2 98% BMI 31.17 kg/m Physical Exam Vitals and nursing note [...] normal. Palpations: Abdomen is soft. Musculoskeletal: Right knee: Effusion (small lateral to patella) present. No swelling. Decreased range of motion. Tenderness present. Skin: General: Skin is warm and dry. Neurological: General: No focal deficit present. Mental Status: She is alert and oriented to person, place, and time. ALLERGIES Allergen Reactions Bactrim Ds [Sulfame* Anaphylaxis Difficulty breathing, fever, chills Bee Sting Anaphylaxis Adhesive Tape (Marilou* Rash Darvon [Propoxyphen* Influenza Virus Vac* Other: See Comments Chest tightness, arm swelling. Pepper (Genus Capsi* Hives Medications apixaban (ELIQUIS) 5 mg tab(s) Take 1 tablet by mouth two times a day. Will start when delivered EPINEPHrine (EPIPEN) 0.3 mg/0.3 mL auto-injector Inject 0.3 ml intramuscular as needed. pantoprazole DR (PROTONIX) 20 mg tablet Take 1 tablet by mouth once daily. atorvastatin (LIPITOR) 40 mg tablet Take 1 tablet by mouth once daily. verapamil SR (CALAN SR) 240 mg CR tablet Take 1 tablet by mouth daily at bedtime. albuterol HFA (PROVENTIL HFA, VENTOLIN HFA) 90 [...] Take 1 tablet by mouth as needed. loratadine (CLARITIN) 10 mg tablet Take 1 tablet by mouth once daily. albuterol (PROVENTIL) 2.5 mg /3 mL (0.083 %) nebulizer solution Use 3 mL via nebulizer every 4 hours as needed for wheezing/shortness of breath. Use over 5-15minutes. ondansetron orally disintegrating (ZOFRAN ODT) 4 mg [...] day. (Patient not taking: Reported on 07/30/2023) PAST MEDICAL HISTORY Diagnosis Date Arthropathy, unspecified, site unspecified Asthma Back pain Calculus of kidney 05/09/2018 Colon polyps 2014 Diverticulitis 2000 Environmental allergies GERD (gastroesophageal reflux disease) Hyperlipidemia lifestyle controlled Hypertension IBS (irritable bowel syndrome) Migraine Obesity Pseudophakia 12/2021 both Social History Tobacco Use Smoking status: Never Smokeless tobacco: Never Vaping Use Vaping status: Never Used Substance Use Topics Alcohol use: No Drug [...] Abs Lymph 1.00 - 4.00 k/uL 1.95 Blackford% % 9.6 10.0 Abs Blackford <0.87 k/uL 0.68 Eosin% % 1.5 Abs [...] Estimated Average Glucose mg/dL 114 ASSESSMENT/PLAN: 1. Screening for colon cancer - ICD9: V76.51, ICD10: Z12.11 Dr Chatman is completing this for her - COLONOSCOPY SCREENING 2. Encounter for immunization - ICD9: V03.89, ICD10: Z23 - INFLUENZA VACCINE, PRSV FREE, AGE 65+ YR, HIGH DOSE, TRIVALENT (FLUZONE HIGH-DOSE) - [employer] COVID-19 VACCINE AGE 12+ YR (COMIRNATY) - SHINGRIX PRINTED PHARMACY INSTRUCTIONS - RSV PRINTED PHARMACY INSTRUCTIONS 3. Asthma - ICD9: 493.90, ICD10: J45.909 controlled - Continue current medications - Avoidance of triggers recommended - SPIROMETRY - BASELINE AND POST DILATOR 4. Screening for depression - ICD9: V79.0, ICD10: Z13.31 - DEPRESSION SCREENING 5. Encounter for screening examination for other mental health and behavioral disorders - ICD9: V79.8, ICD10: Z13.39 - ANXIETY SCREENING 6. Essential hypertension - ICD9: 401.9, ICD10: I10 (primary diagnosis) controlled - Continue current medications - Encouraged sodium restriction, DASH or Mediterranean diet - Recommend regular aerobic exercise - COMPLETE BLOOD COUNT AND DIFFERENTIAL - COMPREHENSIVE METABOLIC PANEL - LIPID PANEL BASIC 7. Irritable bowel syndrome without diarrhea - ICD9: 564.1, ICD10: K58.9 Stable, currently controlled, continue to monitor. Followed by Dr Cowan 8. Gastroesophageal reflux disease, unspecified whether esophagitis present - ICD9: 530.81, ICD10: K21.9 Endorse lifestyle measures, Stable, currently controlled, continue to monitor. 9. Chronic pain of right knee - ICD9: 719.46, 338.29, ICD10: M25.561, G89.29 10. Primary osteoarthritis of right knee - ICD9: 715.16, ICD10: M17.11 RUTH bandage is recommended. Rest and elevate the affected painful area. Apply ice to your knee for 15-20 minutes 3-4 times per day. Use your knee brace along with cane or wlker when walking As pain recedes, begin normal activities slowly as tolerated. Call if symptoms persist. Make an appointment with orthopedic doctor. Faith Mullins APRN.CNS Medical Decision Making: Problems: Moderate: 2+ stable chronic illnesses Data: Unique source(s) for external note(s) reviewed: 1 Unique test result(s) reviewed: 3+ Unique test(s) ordered: 3+ Medical Decision Making Level: 4 - Moderate documented in this encounter [facility] 12-15-2023 Miscellaneous Notes Reason for Call: Abdominal Pain, severe back pain - History of colitis Outcome: GO TO ED NOW. Patient verbalized understanding and is in agreeance with the plan of care. States she will find a ride to the ER and if unable to do so, she will call 911. Reason for Disposition [1] SEVERE pain AND [2] age > 60 years Patient states the abdominal cramping is a 9/10. Also having severe back pain but unsure if it is related to her sciatica problems. Patient states she can't top shivering, temperature 97.1 History of colitis, denies any blood in stool. Protocols used: Abdominal Pain - Kakjnt-WAETD-VY documented in this encounter [facility] 12-15-2023 Telephone encounter Note Reason for Call: Abdominal Pain, severe back pain - History of colitis Outcome: GO TO ED NOW. Patient verbalized understanding and is in agreeance with the plan of care. States she will find a ride to the ER and if unable to do so, she will call 911. Reason for Disposition [1] SEVERE pain AND [2] age > 60 years Patient states the abdominal cramping is a 9/10. Also having severe back pain but unsure if it is related to her sciatica problems. Patient states she can't top shivering, temperature 97.1 History of colitis, denies any blood in stool. Protocols used: Abdominal Pain - [id number]-[id number]-VZ [facility] 11-01-2023 Telephone encounter Note Prescription Refill Information [...] Knox LPN November 01, 2023 10:23 AM [facility] 11-01-2023 Miscellaneous Notes Prescription Refill [...] new one sent. documented in this encounter [facility] 10-31-2023 Telephone encounter Note Patient is calling. Pharmacy states they have used the last script and need a new one sent. [facility] Work Phone: 08-22-2023 Telephone encounter Note New script sent. [facility] 08-22-2023 Miscellaneous Notes New script sent. [facility]- reports the epinephrine (AUVI-Q), needs to be changed to generic epinephrine (epi pen) and re-sent to [facility]. Reports AUVI-Q is not covered. Pended. [facility] asking office to notify patient when new Rx is sent to [facility]. documented in this encounter [facility] 08-22-[address] [facility]- reports the epinephrine (AUVI-Q), needs to be changed to generic epinephrine (epi pen) and re-sent to [facility]. Reports AUVI-Q is not covered. Pended. [facility] asking office to notify patient when new Rx is sent to [facility]. [facility] 08-14-2023 Telephone encounter Note Patient [...] 01/11/2024 Please advise. Thank you. Sari Hooper. [facility] 08-14-2023 Miscellaneous Notes Patient has [...] you. Sari Hooper. documented in this encounter [facility] 07-30-2023 History of Present illness Narrative This note was created using f4samurairiter. Subjective Romain Bailey is a 73 year [...] Fatemeh Rogers MD documented in this encounter [facility] 07-30-2023 Telephone encounter Note Patient [...] or wheezing. Protocols used: Cough - Acute Uvx-Roaonsuyau-LCBEG-AH [facility] 07-30-2023 Miscellaneous Notes Patient calls [...] or wheezing. Protocols used: Cough - Acute Zdf-Quluywgigh-SZMZD-AH documented in this encounter [facility] 07-26-2023 History of Present illness Narrative This [...] Diabetes Father Ischemic Heart Disease Father d. [place] Ischemic Heart Disease Maternal Grandfather d. [place] while holding her at 4mo Blindness Brother [...] evaluation. JAIMIE Woods documented in this encounter [facility] 07-04-2023 History of Present illness Narrative This note was created using f4samurairiter. Subjective Romain Bailey is a 73 year [...] makers--Anne-Marie Moise and Yoel ([address]) [address] Friend is her GI provider now. Will [...] Height as of 08/10/22: 167.6 cm (5' 6). Weight as of this encounter: 89.4 kg [...] of BP and lipids. Continues to do [employer] from [employer]. Fatemeh Rogers MD documented in this encounter [facility] 06-15-2023 Telephone encounter Note The following approved medication requests have been transmitted electronically. Requested Prescriptions Signed Prescriptions Disp Refills metoprolol tartrate, short acting, (LOPRESSOR) 25 mg tablet 180 tablet 3 Sig: Take 1 tablet by mouth two times a day. Authorizing Provider: FATEMEH ROGERS MD [facility] 06-15-2023 Miscellaneous Notes The following [...] Narinder Jacques RN. documented in this encounter [facility] 06-14-2023 Telephone encounter Note Patient [...] Please advise. Thank you. Narinder Jacques RN. [facility] 06-08-2023 History of Present illness Narrative Transitional Care Management TCM Eligibility Documentation The following information was gathered during patient outreach 05/31/2023 05/31/2023 Date of Outreach: Outreach Attempt 1: Contact Made Contact Not Made Date of Discharge 05/30/2023 05/30/2023 SUMMARY: -Pt discharged from [facility] on 05/30/2023. -Admitted for: Discharge Diagnosis [...] year old lady here today for [facility] hospital follow up appointment for [...] Height as of 08/10/22: 167.6 cm (5' 6). Weight as of this encounter: 91.2 kg [...] wearing compression stockings that she bought from [employer]. - Discontinued from med list: Lasix 20 [...] get labs as ordered. Note drafted by [employer]. Note reviewed, edited, and signed by the visit provider. documented in this encounter [facility] 05-31-2023 History of Present illness Narrative TRANSITION CARE MANAGEMENT (TCM) INITIAL CONTACT Diagnostic Technician Outreach Provider Action/FYI: Follow up appointment with Dr. Aleman 06/13/2023 Initial contact with patient post discharge, spoke to patient. Patient identified by name and . TRANSITION CARE MANAGEMENT INITIAL OUTREACH DOCUMENTATION: 05/31/2023 Date of Outreach: Outreach Attempt 1: Contact Not Made Date of Discharge 05/30/2023 SUMMARY: -Pt discharged from [facility] on 05/30/2023. -Admitted for: Discharge Diagnosis [...] complete TCM note. documented in this encounter [facility] 05-30-2023 Discharge summary Note Date/Time May 30, 2023 2:51pm [facility] Medical Records Department [address] [place] [address] Discharge Summary 05/30/23 1447 MR#: [id number] Acct: [id number] Name: ROMAIN BAILEY Rep #:[id number] : 1950 73 From: Maxine Griffin MD PCP: Dr. Fatemeh Rogers MD Status:AD M IN [place] [facility] [id number] Providers Date of Admission: 05/26/23 Date of Discharge: 05/30/23 Primary Care Physician: Dr. Fatemeh Rogers MD Consultations 05/26/23 17:21 Consult: General Surgery Routine Consulting Provider: Joesph Aleman Reason for Consult: GI bleed EMERGENT Consult: No MD Notified: Yes Date Notified: 05/26/23 Time Notified: 15:47 Method of Notification: ED Physician Initiated Reason For Visit: GI BLEED Diagnosis Discharge Diagnosis (1) Ischemic colitis: Status: Acute [...] 30 days #60 tabs 02/20/23 Hospital Course Operations None Procedures None Summary of Care Provided Minutes Spent on Discharge: 55 Hospital Course: Patient is a 73-year-old female with a past medical history as outlined was admitted through the ED on 05/26/2023 with a complaint of rectal bleeding. She admits that the rectal bleeding about a week prior to admission. Patient was onEliquis and had been taking it. Subsequently started feeling weak so she came into the ED. Hemoglobin was 8.2. CT of the abdomen done showed evidence of proctocolitis. She was admitted and managed for lower GI bleed. General surgery was consulted. She was placed on antibiotics with ciprofloxacin and metronidazole due to concerns about infectious proctocolitis. Rectal bleeding improved and she felt better. She was placed on a clear liquid diet which she tolerated. Her hemoglobin stabilised and general surgery decided against a colonoscopy and EGD. She was placed on a transitional diet which she tolerated. Her Eliquis was resumed and there was no evidence of bleeding. She remained stable and was discharged home on 05/30/2023. She is to follow-up with her primary care doctor and follow-up with general surgery within 1 to 2 weeks. Patient seen and examined prior to discharge. She had no active complaints. Review of systems otherwise negative. Labs and vitals reviewed. Home medication reviewed and reconciled. Physical Exam Const alert, oriented x3, no apparent distress and well nourished General Appearance: cooperative, comfortable, well kempt and well developed HEENT normocephalic, head/scalp atraumatic, hearing grossly normal bilaterally and moist oral mucous membranes Mouth: oral and palatal mucosa normal Eyes PERRL and EOMs intact bilaterally Neck no lymphadenopathy and supple Lymph Lymphatic: no lymphadenopathy noted and no lymphedema noted Resp normal respiratory effort, normal air movement and clear to auscultation bilaterally Cardio regular rate, regular rhythm, S1 normal heart sound, S2 normal heart sound and no murmurs GI normal to inspection, nondistended, normoactive bowel sounds and soft to palpation GI Narrative: Mildly distended abdomen Extremity normal to inspection, full ROM, normal capillary refill, no clubbing, cyanosis or edema and no calf tenderness General Extremity: no tenderness to palpation of joints or extremities Skin no rashes or lesions noted General Skin Exam: no breakdown Neuro oriented x3, CN's II-XII intact bilaterally, moves all extremities, no focal motor deficits, no sensory deficits noted and deep tendon reflexes 2+ bilaterally Motor Exam: strength 5/5 throughout and general weakness Psych thought process normal and cooperative Appearance: appropriate Weight / BMI Weight Weight: 205 lb 15.999 oz Body Mass Index (BMI) 33.2 ABG / Lab / Microbiology Data 05/30/23 06:14 05/30/23 06:14 Laboratory: Laboratory Results - last 24 hr 05/30/23 06:14: WBC 4.8, RBC 3.33 L, Hgb 8.1 L, Hct 26.7 L, MCV 80.2 L, MCH 24.3L, MCHC 30.3 L, RDW Std Deviation 43.8, RDW Coeff of Kahlil 15.0 H, Plt Count 307, MPV 10.1, Immature Gran % (Auto) 0.200, Neut % (Auto) 56.8, Lymph % (Auto) 27.3,Blackford % (Auto) 10.9 H, Eos % (Auto) 4.2, Baso % (Auto) 0.6, Absolute Neuts (auto)2.7, Absolute Lymphs (auto) 1.30, Nucleated RBC % 0, Sodium 143, Potassium 3.8, Chloride 111 H, Carbon Dioxide 27.0, Anion Gap 5, BUN 10, Creatinine 0.70, EstimCreat Clear Calc 73.21, Est GFR (MDRD) Af Amer 105, Est GFR (MDRD) Non-Af 87, BUN/Creatinine Ratio 14.2, Glucose 104, Calcium 8.1 L D/C Instructions Discharge Diet: Low fat / Low cholesterol Discharge Activity: Return to Normal Activity Weight Bearing Status: Weight bearing as tolerated Call your doctor if you observe: Fever of 101 or Higher, Shortness of breath, Dizziness, Swelling in the ankles, Chest pain and Uncontrolled pain Meaningful Use Info Meaningful Use Diagnoses (Choose all that apply): None applicable Discharge Plan Admission Admit Date/Time: 05/26/23 15:42 Primary Reason for Your Visit: lower GI bleed Attending Provider: Maxine Griffin Primary Care Provider: Fatemeh Rogers Consulting Providers: Joesph Aleman; Nilo Stroud; Agustín Viramontes Instructions Patient Instructions: GI Bleeding Ch Discharge Orders/Prescriptions Prescriptions: Continued atorvastatin 40 mg tablet 40 mg PO DAILY epinephrine 0.3 MG syringe 0.3 mg IM X1 loratadine 10 MG tablet 10 mg PO DAILY albuterol sulfate 18 GM HFA aerosol inhaler 2 puff inhalation Q6H PRN (Reason: Sob &/Or Wheezing) meclizine 25 MG tablet 25 mg PO Q6H PRN (Reason: Dizziness) fluticasone propionate 1 SPRAY spray,suspension 2 spray NASAL DAILY PRN (Reason: Allergies) albuterol sulfate 2.5 MG/3 ML solution for nebulization 2.5 mg inhalation Q4H PRN (Reason: Sob &/Or Wheezing) metoprolol tartrate 25 mg Tablet 25 mg PO BID 30 Days Qty: 60 0RF verapamil 240 mg tablet extended release 240 mg PO DAILY Qty: 90 3RF dicyclomine 10 mg capsule 10 mg PO BID PRN (Reason: abdominal discomfort) Qty: 30 1RF pantoprazole 40 mg tablet,delayed release (DR/EC) See Rx Instructions .ROUTE .COMPLEX Qty: 90 0RF Dose Instruction: TAKE 1 TABLET EVERY DAY Rx Instructions: TAKE 1 TABLET EVERY DAY Eliquis 5 mg tablet 5 mg PO BID Qty: 180 3RF colestipol 1 gram tablet 1 g PO BID 30 Days Qty: 60 2RF Hold Instructions: on hold Referrals / Follow Up: Joesph Aleman MD [Med Staff - Active Staff] - 06/13/23 9:15 am Fatemeh Rogers MD [Primary Care Provider] - 06/08/23 10:00 am Disposition Disposition (needs filled in before D/C Order can be placed): Home, Self Care Charges/Coding Visit Charges Inpatient E&M: 57916 Disch Hosp >30min 05/30/23 1502 <Electronically signed by Maxine Griffin MD> Cosigner Signature (if applicable): CC: Dr. Fatemeh Rogers MD; Dr. Maxine Griffin MD~ Signed [facility] Work Phone: 1(692) 497-722604-03-2024 Consult note Author Jenna Espinosa [facility] May 30, 2023 10:45am Note Date/Time May 30, 2023 10:4 5am [facility] Medical Records Department [address] [place] [address] Counseling Note - Pharmacy 05/30/23 1045 MR#: [id number] Acct: [id number] Name: ROMAIN BAILEY Rep #:[id number] : 1950 73 From: Jenna Espinosa PCP: Dr. Fatemeh Rogers MD Status:AD M IN Y [id number]con[facility] Pharmacy Service has performed discharge medication reconciliation for this patient. The patient's discharge medication list was reviewed for discrepancies and discrepancies were resolved. Medications at Discharge Home Medications epinephrine 0.3 [...] PO BID 30 days #60 tabs 02/20/23 05/30/23 1045 <Electronically signed by Jenna Espinosa> Date _ Jenna Espinosa Cosigner Signature (if applicable): Date CC: ~ Signed [facility] Work Phone: [phone]) 443-964204-03-2024 Discharge summary Author [facility] May 30, 2023 10:11am Note Date/Time May 30, 2023 10:1 1am [facility] Medical Records Department [address] [place] [address] Instructions for Home/Discharge Instructions 05/30/23 1010 MR#: [id number] Acct: [id number] Name: ROMAIN BAILEY Rep #:[id number] : 1950 73 From: Maxine Griffin MD PCP: Dr. Fatemeh Rogers MD Status:AD M IN Discharge Instructions Diet Discharge Diet: Low fat / Low cholesterol Activity Discharge Activity: Return to Normal Activity Weight Bearing Status: Weight bearing as tolerated Dressing / Incision Call your doctor if you observe: Fever of 101 or Higher, Shortness of breath, Dizziness, Swelling in the ankles, Chest pain and Uncontrolled pain Follow Up Care Test Results: Test results from this visit will be discussed in further detail at your follow- up appointment, if applicable. Discharge Plan Admission Admit Date/Time: 05/26/23 15:42 Primary Reason for Your Visit: lower GI bleed Attending Provider: Maxine Griffin Primary Care Provider: Fatemeh Rogers Consulting Providers: Joesph Aleman; Nilo Stroud; Agustín Viramontes Instructions Patient Instructions: GI Bleeding Ch Discharge Orders/Prescriptions Prescriptions: Continued atorvastatin 40 mg tablet 40 mg PO DAILY epinephrine 0.3 MG syringe 0.3 mg IM X1 loratadine 10 MG tablet 10 mg PO DAILY albuterol sulfate 18 GM HFA aerosol inhaler 2 puff inhalation Q6H PRN (Reason: Sob &/Or Wheezing) meclizine 25 MG tablet 25 mg PO Q6H PRN (Reason: Dizziness) fluticasone propionate 1 SPRAY spray,suspension 2 spray NASAL DAILY PRN (Reason: Allergies) albuterol sulfate 2.5 MG/3 ML solution for nebulization 2.5 mg inhalation Q4H PRN (Reason: Sob &/Or Wheezing) metoprolol tartrate 25 mg Tablet 25 mg PO BID 30 Days Qty: 60 0RF verapamil 240 mg tablet extended release 240 mg PO DAILY Qty: 90 3RF dicyclomine 10 mg capsule 10 mg PO BID PRN (Reason: abdominal discomfort) Qty: 30 1RF pantoprazole 40 mg tablet,delayed release (DR/EC) See Rx Instructions .ROUTE .COMPLEX Qty: 90 0RF Dose Instruction: TAKE 1 TABLET EVERY DAY Rx Instructions: TAKE 1 TABLET EVERY DAY Eliquis 5 mg tablet 5 mg PO BID Qty: 180 3RF colestipol 1 gram tablet 1 g PO BID 30 Days Qty: 60 2RF Hold Instructions: on hold Referrals / Follow Up: Joesph Aleman MD [Med Staff - Active Staff] - Within 2 Weeks Fatemeh Rogers MD [Primary Care Provider] - Within 2 Weeks Disposition Disposition (needs filled in before D/C Order can be placed): Home, Self Care 05/30/23 1011<Electronically signed by Maxine Griffin MD>Maxine Griffin MD CC: Dr. Joesph Aleman MD; Dr. Nilo Stroud DO; Dr. Fatemeh Rogers MD; Dr. Agustín Viramontes MD ~ Signed [facility] Work Phone: 1([phone]) [phone] Progress note Author Joesph Aleman [facility] May 30, 2023 9:59am Note Date/Time May 30, 2023 9:59 am [facility] Medical Records Department [address] [place] [address] Progress Note - Surgery 05/30/23 0956 MR#: [id number] Acct: [id number] Name: ROMAIN BAILEY Rep #:[id number] : 1950 73 From: Joesph moran MD PCP: Dr. Fatemeh Rogers MD Status:AD M IN [id number] Subjective Subjective Patient reports she is tolerating transitional diet and she did have a bowel movement last night with no blood in it. She denies abdominal pain or nausea. Objective Data Objective Data Vital Signs: Vital Signs Temp Pulse Resp BP Pulse Ox O2 Del Method O2 Flow Rate 97.9 F 73 16 133/66 H 94 Room Air 2 05/30/23 07:45 05/30/23 09:15 05/30/23 07:47 05/30/23 09:15 05/30/23 08:00 05/30/23 08:15 05/29/23 09:16 Oxygen Flow Rate (L/min) 2 Oxygen Delivery Method Room Air Weight: 205 lb 15.999 oz Body Mass Index (BMI) 33.2 Intake & Output: Intake and Output for Last 24 Hours 05/28/23 05/29/23 05/30/23 23:59 23:59 23:59 Intake Total 2099 1500 / 2250 1400 / 1400 Balance 2099 1500 / 2250 1400 / 1400 Lab / Micro Data 05/30/23 06:14 05/30/23 06:14 Labs: Laboratory Results - last 24 hr 05/30/23 06:14: WBC 4.8, RBC 3.33 L, Hgb 8.1 L, Hct 26.7 L, MCV 80.2 L, MCH 24.3L, MCHC 30.3 L, RDW Std Deviation 43.8, RDW Coeff of Kahlil 15.0 H, Plt Count 307, MPV 10.1, Immature Gran % (Auto) 0.200, Neut % (Auto) 56.8, Lymph % (Auto) 27.3,Blackford % (Auto) 10.9 H, Eos % (Auto) 4.2, Baso % (Auto) 0.6, Absolute Neuts (auto)2.7, Absolute Lymphs (auto) 1.30, Nucleated RBC % 0, Sodium 143, Potassium 3.8, Chloride 111 H, Carbon Dioxide 27.0, Anion Gap 5, BUN 10, Creatinine 0.70, EstimCreat Clear Calc 73.21, Est GFR (MDRD) Af Amer 105, Est GFR (MDRD) Non-Af 87, BUN/Creatinine Ratio 14.2, Glucose 104, Calcium 8.1 L Physical Exam Const oriented x3 Resp normal respiratory effort GI soft to palpation and non-tender Assessment & Plan Assessment/Plan (1) Ischemic colitis: (2) GI bleed: QUALIFIERS: GI bleed type/associated pathology: unspecified gastrointestinal hemorrhage type Qualified Code(s): K92.2 - Gastrointestinal hemorrhage, unspecified PLAN: Plan The patient seems to be doing well. She was started on transitional diet yesterday which she tolerated and restarted on Eliquis yesterday evening. She had a bowel movement overnight with no bleeding. She reports that her pain is resolved. She may be discharged home today and follow-up with me in 2 weeks to discuss possible colonoscopy. Joesph Aleman MD Pager: [facility] [address] [place] [address], [address] [place] [address] Office: 05/30/23 6356 <Electronically signed by Joesph Aleman MD> Cosigner Signature (if applicable): CC: ~ Signed [facility] Work Phone: 1(952) 145-428304-02-2024 Progress note Author Maxine Griffin [facility] May 29, 2023 4:07pm Note Date/Time May 29, 2023 11:0 3am [facility] Medical Records Department [address] [place] [address] Progress Note 05/29/23 1058 MR#: [id number] Acct: [id number] Name: ROMAIN BAILEY Giulia Rep #:[id number] : 1950 73 From: Maxine Griffin MD PCP: Dr. Fatemeh Rogers MD Status:AD M IN Location: [facility] [id number] Subjective Subjective Patient seen and examined. She had no active complaints and she felt well. Review of systems otherwise negative. She was started on transitional diet today. Patient also due to start Eliquis this evening and if patient does not bleed to consider discharge tomorrow. Objective Data Objective Data Vital Signs: Vital Signs Temp Pulse Resp BP Pulse Ox O2 Del Method O2 Flow Rate 97.9 F 79 18 167/62 H 95 Nasal Cannula 2 05/29/23 08:20 05/29/23 08:24 05/29/23 08:20 05/29/23 08:20 05/29/23 09:16 05/29/23 09:16 05/29/23 09:16 Oxygen Flow Rate (L/min) 2 Oxygen Delivery Method Nasal Cannula Weight: 205 lb 15.999 oz Body Mass Index (BMI) 33.2 Intake & Output: Intake and Output for Last 24 Hours 05/27/23 05/28/23 05/29/23 23:59 23:59 23:59 Intake Total 1450 / 1700 2100 / 2100 1300 / 1300 Balance 1450 / 1700 2100 / 2100 1300 / 1300 Lab / Micro Data 05/29/23 05:52 05/29/23 05:52 Labs: Laboratory Results - last 24 hr 05/29/23 05:52: WBC 4.1 L, RBC 3.34 L, Hgb 8.0 L, Hct 26.7 L, MCV 79.9 L, MCH 24.0 L, MCHC 30.0 L, RDW Std Deviation 43.2, RDW Coeff of Kahlil 14.9 H, Plt Count 303, MPV 10.3, Immature Gran % (Auto) 0.200, Neut % (Auto) 48.9, Lymph % (Auto) 31.4, Blackford % (Auto) 13.1 H, Eos % (Auto) 5.2 H, Baso % (Auto) 1.2 H, Absolute Neuts (auto) 2.0, Absolute Lymphs (auto) 1.27, Nucleated RBC % 0, Sodium 143, Potassium 3.7, Chloride 111 H, Carbon Dioxide 27.0, Anion Gap 5, BUN 6 L, Creatinine 0.68, Estim Creat Clear Calc 73.21, Est GFR (MDRD) Af Amer 108, Est GFR (MDRD) Non-Af 90, BUN/Creatinine Ratio 8.8 L, Glucose 103, Calcium 8.4 L Physical Exam Const alert, oriented x3, no apparent distress and well nourished General Appearance: cooperative and well developed HEENT normocephalic, head/scalp atraumatic and moist oral mucous membranes Eyes PERRL and EOMs intact bilaterally Neck no lymphadenopathy and supple Lymph Lymphatic: no lymphadenopathy noted and no lymphedema noted Resp normal respiratory effort, normal air movement and clear to auscultation bilaterally Cardio regular rate, regular rhythm, S1 normal heart sound, S2 normal heart sound and no murmurs GI normal to inspection, nondistended, normoactive bowel sounds and soft to palpation GI Narrative: Mildly distended abdomen Extremity normal capillary refill, no clubbing, cyanosis or edema and no calf tenderness General Extremity: no tenderness to palpation of joints or extremities Skin General Skin Exam: no breakdown Neuro CN's II-XII intact bilaterally, no focal motor deficits, no sensory deficits noted and deep tendon reflexes 2+ bilaterally Motor Exam: strength 5/5 throughout and general weakness Psych thought process normal and cooperative Appearance: appropriate Assessment & Plan Assessment/Plan (1) Ischemic colitis: (2) GI bleed: PLAN: Plan #Acute lower GI bleed * Thought [...] she does not bleed after resuming Eliquis. Charges/Coding Visit Charges Inpatient E&M: 21536 Subs Hosp L2 05/29/23 1607 <Electronically signed by Maxine Griffin MD> Maxine Griffin MD Cosigner Signature (if applicable): CC: ~ Signed [facility] Work Phone: 1(765) 212-822904-02-2024 Progress note Author Joesph Aleman [facility] May 29, 2023 7:02am Note Date/Time May 29, 2023 7:02 am [facility] Medical Records Department [address] [place] [address] Progress Note - Surgery 05/29/23 07 MR#: [id number] Acct: [id number] Name: ROMAIN BAILEY Rep #:[id number] : 1950 73 From: Joesph moran MD PCP: Dr. Fatemeh Rogers MD Status:AD M IN Location: [place] [address] Subjective Subjective The patient is not reporting any pain this morning. She thinks she needs to have a bowel movement. She denies any nausea or vomiting. She tolerated clearswell. Objective Data Objective Data Vital Signs: Vital Signs Temp Pulse Resp BP Pulse Ox O2 Del Method O2 Flow Rate 98.4 F 85 16 161/75 H 94 Room Air 2 05/29/23 04:45 05/29/23 04:45 05/29/23 04:45 05/29/23 04:45 05/29/23 04:45 05/29/23 04:45 05/28/23 07:55 Oxygen Flow Rate (L/min) 2 Oxygen Delivery Method Room Air Weight: 205 lb 15.999 oz Body Mass Index (BMI) 33.2 Intake & Output: Intake and Output for Last 24 Hours 05/27/23 05/28/23 05/29/23 23:59 23:59 23:59 Intake Total 1450 / 1700 2100 / 2100 1000 / 1000 Balance 1450 / 1700 2100 / 2100 1000 / 1000 Lab / Micro Data 05/29/23 05:52 05/28/23 06:21 Labs: Laboratory Results - last 24 hr 05/28/23 06:21: WBC 3.8 L, RBC 3.28 L, Hgb 7.8 L, Hct 26.3 L, MCV 80.2 L, MCH 23.8 L, MCHC 29.7 L, RDW Std Deviation 42.4, RDW Coeff of Kahlil 14.6, Plt Count 274,MPV 10.1, Immature Gran % (Auto) 0.300, Neut % (Auto) 43.6 L, Lymph % (Auto) 38.3, Blackford % (Auto) 11.2 H, Eos % (Auto) 5.3 H, Baso % (Auto) 1.3 H, Absolute Neuts (auto) 1.6 L, Absolute Lymphs (auto) 1.44, Nucleated RBC % 0, Sodium 143, Potassium 3.0 L, Chloride 111 H, Carbon Dioxide 28.0, Anion Gap 4 L, BUN 8, Creatinine 0.72, Estim Creat Clear Calc 73.21, Est GFR (MDRD) Af Amer 102, Est GFR (MDRD) Non-Af 85, BUN/Creatinine Ratio 11.1, Glucose 101, Calcium 8.1 L 05/29/23 05:52: WBC 4.1 L, RBC 3.34 L, Hgb 8.0 L, Hct 26.7 L, MCV 79.9 L, MCH 24.0 L, MCHC 30.0 L, RDW Std Deviation 43.2, RDW Coeff of Kahlil 14.9 H, Plt Count 303, MPV 10.3, Immature Gran % (Auto) 0.200, Neut % (Auto) 48.9, Lymph % (Auto) 31.4, Blackford % (Auto) 13.1 H, Eos % (Auto) 5.2 H, Baso % (Auto) 1.2 H, Absolute Neuts (auto) 2.0, Absolute Lymphs (auto) 1.27, Nucleated RBC % 0 Physical Exam Const oriented x3 and no apparent distress Resp normal respiratory effort GI soft to palpation and non-tender Assessment & Plan Assessment/Plan (1) Ischemic colitis: PLAN: The patient is not having pain and actually feels like she may have a bowel movement today. I will start her on a transitional diet as long as she tolerates this she can start her Eliquis tonight. If she tolerates diet today and Eliquis tonight with no bleeding she can likely be discharged home tomorrow. Joesph Aleman MD Pager: [facility] [address] [place] [address], [address] [place] [address] Office: 05/29/23 0702 <Electronically signed by Joesph Aleman MD> Cosigner Signature (if applicable): CC: ~ Signed [facility] Work Phone: 1(146) 238-846704-01-2024 Progress note Author Maxine Griffin [facility] May 28, 2023 3:33pm Note Date/Time May 28, 2023 3:25 pm [facility] Medical Records Department [address] [place] [address] Progress Note 05/28/23 1523 MR#: [id number] Acct: [id number] Name: ROMAIN BAILEY Rep #:[id number] : 1950 73 From: Maxine Griffin MD PCP: Dr. Fatemeh Rogers MD Status:AD M IN Location: [place] [address] Subjective Subjective Patient seen and examined. She says she is feeling better today. Her abdominalpain has improved. She is tolerating a clear liquid diet. Review of systems otherwise negative. Objective Data Objective Data Vital Signs: Vital Signs Temp Pulse Resp BP Pulse Ox O2 Del Method O2 Flow Rate 97.7 F L 64 16 137/65 H 97 Room Air 2 05/28/23 13:11 05/28/23 13:11 05/28/23 13:11 05/28/23 13:11 05/28/23 13:11 05/28/23 13:11 05/28/23 07:55 Oxygen Flow Rate (L/min) 2 Oxygen Delivery Method Room Air Weight: 205 lb 15.999 oz Body Mass Index (BMI) 33.2 Intake & Output: Intake and Output for Last 24 Hours 05/26/23 05/27/23 05/28/23 23:59 23:59 23:59 Intake Total 1300 / 1800 1450 / 1700 1500 / 1500 Balance 1300 / 1800 1450 / 1700 1500 / 1500 Lab / Micro Data 05/28/23 06:21 05/28/23 06:21 Labs: Laboratory Results - last 24 hr 05/28/23 06:21: WBC 3.8 L, RBC 3.28 L, Hgb 7.8 L, Hct 26.3 L, MCV 80.2 L, MCH 23.8 L, MCHC 29.7 L, RDW Std Deviation 42.4, RDW Coeff of Kahlil 14.6, Plt Count 274,MPV 10.1, Immature Gran % (Auto) 0.300, Neut % (Auto) 43.6 L, Lymph % (Auto) 38.3, Blackford % (Auto) 11.2 H, Eos % (Auto) 5.3 H, Baso % (Auto) 1.3 H, Absolute Neuts (auto) 1.6 L, Absolute Lymphs (auto) 1.44, Nucleated RBC % 0, Sodium 143, Potassium 3.0 L, Chloride 111 H, Carbon Dioxide 28.0, Anion Gap 4 L, BUN 8, Creatinine 0.72, Estim Creat Clear Calc 73.21, Est GFR (MDRD) Af Amer 102, Est GFR (MDRD) Non-Af 85, BUN/Creatinine Ratio 11.1, Glucose 101, Calcium 8.1 L Physical Exam Const alert, no apparent distress and well nourished General Appearance: cooperative and well developed HEENT normocephalic, head/scalp atraumatic and moist oral mucous membranes Eyes PERRL and EOMs intact bilaterally Neck no lymphadenopathy and supple Lymph Lymphatic: no lymphadenopathy noted and no lymphedema noted Resp normal respiratory effort, normal air movement and clear to auscultation bilaterally Cardio regular rate, regular rhythm, S1 normal heart sound, S2 normal heart sound and no murmurs GI normal to inspection, nondistended, normoactive bowel sounds and soft to palpation GI Narrative: Mildly distended abdomen Extremity normal capillary refill, no clubbing, cyanosis or edema and no calf tenderness General Extremity: no tenderness to palpation of joints or extremities Skin General Skin Exam: no breakdown Neuro CN's II-XII intact bilaterally, no focal motor deficits, no sensory deficits noted and deep tendon reflexes 2+ bilaterally Motor Exam: strength 5/5 throughout and general weakness Psych thought process normal and cooperative Appearance: appropriate Assessment & Plan Assessment/Plan (1) Ischemic colitis: (2) GI bleed: PLAN: Plan #Acute lower GI bleed * Thought to be due to ischemic colitis. CT of the abdomen and pelvis showed evidence of ischemic colitis. * Eliquis currently on hold. On PPI. Tolerating clear liquid diet. * On Cipro and Flagyl. General surgery on board. #Acute blood loss anemia due to GI bleed: Hemoglobin today 7.8. Monitor closelyand transfuse if hemoglobin falls less than 7. #Hypokalemia: Potassium is 3. Replace aggressively and trend. #Paroxysmal A-fib: Eliquis currently on hold. On metoprolol #Hypertension: On metoprolol and verapamil #Hyperlipidemia: on statin. #COPD: Not in exacerbation. Breathing treatments bronchodilators. # DVT Prophylaxis: SCDs Charges/Coding Visit Charges Inpatient E&M: 80948 Subs Hosp L2 05/28/23 1533 <Electronically signed by Maxine Griffin MD> Maxine Griffin MD Cosigner Signature (if applicable): CC: ~ Signed [facility] Work Phone: 1(190) 988-172304-01-2024 Progress note Author Joesph Aleman [facility] May 28, 2023 7:10am Note Date/Time May 28, 2023 7:11 am [facility] Medical Records Department [address] [place] [address] Progress Note - Surgery 05/28/23 0708 MR#: [id number] Acct: [id number] Name: ROMAIN BAILEY Rep #:[id number] : 1950 73 From: Joesph moran MD PCP: Dr. Fatemeh Rogers MD Status:AD M IN Location: [place] [address] Subjective Subjective Patient reports no bleeding overnight. She says her pain is improving in her lower abdomen. She tolerated clears with no nausea or vomiting. She says she is passing flatus. She has not had any regular bowel movements overnight. Objective Data Objective Data Vital Signs: Vital Signs Temp Pulse Resp BP Pulse Ox O2 Del Method O2 Flow Rate 98.5 F 82 16 154/67 H 95 Room Air 2 05/28/23 02:00 05/28/23 02:00 05/28/23 02:00 05/28/23 02:00 05/28/23 02:00 05/28/23 02:00 05/27/23 14:15 Oxygen Flow Rate (L/min) 2 Oxygen Delivery Method Room Air Weight: 205 lb 15.999 oz Body Mass Index (BMI) 33.2 Intake & Output: Intake and Output for Last 24 Hours 05/26/23 05/27/23 05/28/23 23:59 23:59 23:59 Intake Total 1300 / 1800 1450 / 1700 700 / 700 Balance 1300 / 1800 1450 / 1700 700 / 700 Lab / Micro Data 05/28/23 06:21 05/27/23 05:15 Labs: Laboratory Results - last 24 hr 05/27/23 11:28: Hgb 8.4 L, Hct 28.0 L 05/28/23 06:21: WBC 3.8 L, RBC 3.28 L, Hgb 7.8 L, Hct 26.3 L, MCV 80.2 L, MCH 23.8 L, MCHC 29.7 L, RDW Std Deviation 42.4, RDW Coeff of Kahlil 14.6, Plt Count 274, MPV 10.1, Immature Gran % (Auto) 0.300, Neut % (Auto) 43.6 L, Lymph % (Auto) 38.3, Blackford % (Auto) 11.2 H, Eos % (Auto) 5.3 H, Baso % (Auto) 1.3 H, Absolute Neuts (auto) 1.6 L, Absolute Lymphs (auto) 1.44, Nucleated RBC % 0 Physical Exam Const oriented x3 and no apparent distress Resp normal respiratory effort GI soft to palpation Palpation: tender suprapubic Assessment & Plan Assessment/Plan (1) GI bleed: (2) Ischemic colitis: PLAN: Plan The patient did not have any GI bleeding overnight. Her Eliquis continues to beheld. The patient says that her pain is continuing to improve and she is tolerating clears. I would like to continue clear liquids until the pain completely resolves as pushing the colon to early may make the ischemic colitis worse. Hemoglobin is stable in the 8 range. Continue to hold blood thinners. If her pain resolves tomorrow or later today I will advance her diet. Continue antibiotics for 24 more hours. If she rebleeds I will prep her and plan for scope. Patient just had a colonoscopy 2 years ago. I will discuss with GI as well. Joesph Aleman MD Pager: [facility] [address] [place] [address], [address] [place] [address] Office: 05/28/23 0710 <Electronically signed by Joesph Aleman MD> Cosigner Signature (if applicable): CC: ~ Signed [facility] Work Phone: 1(475) 519-308303-31-2024 Progress note Author Agustín Viramontes [facility] May 27, 2023 11:38am Note Date/Time May 27, 2023 11: 04am [facility] Medical Records Department [address] [place] [address] Progress Note - Hospitalist 05/27/23 1103 MR#: [id number] Acct: [id number] Name: ROMAIN BAILEY Rep #:[id number] : 1950 73 From: Agustín de la cruz MD PCP: Dr. Fatemeh Rogers MD Status:AD M IN Location: [place] [address] Subjective Subjective Doing well, no issues overnight. Hemoglobin is 7.8 this morning Objective Data Objective Data Vital Signs: Vital Signs Temp Pulse Resp BP Pulse Ox O2 Del Method O2 Flow Rate 98.5 F 75 18 132/66 H 97 Nasal Cannula 2 05/27/23 06:24 05/27/23 10:12 05/27/23 06:24 05/27/23 06:24 05/27/23 06:24 05/27/23 06:24 05/27/23 02:00 Oxygen Flow Rate (L/min) 2 Oxygen Delivery Method Nasal Cannula Weight: 205 lb 15.999 oz Body Mass Index (BMI) 33.2 Intake & Output: Intake and Output for Last 24 Hours 05/26/23 05/27/23 05/28/23 03:59 03:59 03:59 Intake Total 1800 / 1800 350 / 350 Balance 1800 / 1800 350 / 350 Lab / Micro Data 05/27/23 05:15 05/27/23 05:15 Labs: Laboratory Results - last 24 hr 05/26/23 13:55: WBC 5.9, RBC 3.52 L, Hgb 8.2 L, Hct 27.6 L, MCV 78.4 L, MCH 23.3L, MCHC 29.7 L, RDW Std Deviation 41.9, RDW Coeff of Kahlil 14.6, Plt Count 297, MPV 9.7, Immature Gran % (Auto) 0.300, Neut % (Auto) 63.3, Lymph % (Auto) 27.0, Blackford % (Auto) 7.3, Eos % (Auto) 1.4, Baso % (Auto) 0.7, Absolute Neuts (auto) 3.7, Absolute Lymphs (auto) 1.59, Nucleated RBC % 0, Sodium 142, Potassium 3.2 L, Chloride 111 H, Carbon Dioxide 24.0, Anion Gap 7, BUN 16, Creatinine 0.91, Estim Creat Clear Calc 64.36, Est GFR (MDRD) Af Amer 78, Est GFR (MDRD) Non-Af 64, BUN/Creatinine Ratio 17.5, Glucose 152 H, Lactic Acid 2.4 H*, Calcium 8.3 L,Total Bilirubin 0.40, AST 15, ALT 19, Alkaline Phosphatase 123 H, Total Protein 5.9 L, Albumin 3.2, Globulin 2.7, Albumin/Globulin Ratio 1.2 05/26/23 16:00: Blood Type O POSITIVE, Antibody Screen NEGATIVE, Crossmatch See Detail 05/26/23 18:27: Hgb 7.6 L, Hct 24.9 L, Lactic Acid 0.9 05/26/23 22:53: Hgb 8.2 L, Hct 26.6 L 05/27/23 05:15: WBC 4.7, RBC 3.31 L, Hgb 7.8 L, Hct 26.4 L, MCV 79.8 L, MCH 23.6L, MCHC 29.5 L, RDW Std Deviation 42.5, RDW Coeff of Kahlil 14.6, Plt Count 249, MPV 9.7, Immature Gran % (Auto) 0.200, Neut % (Auto) 49.0, Lymph % (Auto) 35.0, Blackford % (Auto) 11.1 H, Eos % (Auto) 3.8, Baso % (Auto) 0.9, Absolute Neuts (auto)2.3, Absolute Lymphs (auto) 1.64, Nucleated RBC % 0, PT 15.9 H, INR 1.3, Sodium 141, Potassium 3.1 L, Chloride 110 H, Carbon Dioxide 27.0, Anion Gap 4 L, BUN 11, Creatinine 0.67, Estim Creat Clear Calc 73.21, Est GFR (MDRD) Af Amer 112, Est GFR (MDRD) Non-Af 93, BUN/Creatinine Ratio 16.5, Glucose 95, Calcium 8.1 L, Total Bilirubin 0.60, AST 16, ALT 17, Alkaline Phosphatase 111, Total Protein 5.3 L, Albumin 2.8 L, Globulin 2.5, Albumin/Globulin Ratio 1.1 Radiography Diagnostic Testing: Radiology Impression Abdomen/Pelvis CT 05/26/23 13:44 IMPRESSION: Proctocolitis. Electronically Signed: Vikram Spears MD at 15:39 EDT , Physical Exam Narrative General: Alert, Oriented x3, Cooperative, No apparent distress HEENT: Atraumatic, PERRLA, EOMI, Normocephalic Oral: Moist Mucosa Neck: Supple, No JVD Lungs: Diminished, Normal air movement, No rhonchi, No wheeze, No rales Cardiovascular: Regular rate, Regular Rhythm, Normal S1, Normal S2, No murmurs Abdomen: Soft, Non Tender, Non-Distended, No Hepato-splenomegaly Extremities: No edema, Capillary Refill Less than 3 Seconds Skin: No rashes, No breakdown, pale Musculoskeletal: No Tenderness to Palpation of Joints or Extremities Neurological: No focal neurological deficits, Motor Exam 5/5 strength throughout, Sensory exam intact to light touch and pain Psych/Mental Status: Normal Affect, Appropriate Assessment & Plan Assessment/Plan (1) GI bleed: PLAN: Plan 1. Acute GI bleed secondary to likely ischemic colitis with acute blood loss anemia ? Based on CT findings likely has an ischemic colitis component ? Will hold her Eliquis, continue with PPI ? Tolerating clears and appreciate general surgery's assistance ? Will evaluate for possible scope in the next day or 2 ? Hemoglobin does appear to be stable for now and does not require transfusions ? Will continue with Cipro and Flagyl for another 48 hours as there is the possibility of an infectious colitis component 2. Paroxysmal A-fib/essential HTN/HLD ? Blood pressure stable, continue to hold Eliquis ? Can resume her home Lipitor as well as metoprolol and verapamil ? Will monitor make adjustments as necessary 3. COPD ? Not in exacerbation ? Will continue to monitor and continue with her home inhalers DVT: SCDs Charges/Coding Visit Charges Inpatient E&M: 54310 Subs Hosp L2 05/27/23 1138 <Electronically signed by Agustín Viramontes MD> Cosigner Signature (if applicable): CC: ~ Signed [facility] Work Phone: 1(510) 310-639203-31-2024 Consult note Author Joesph Aleman [facility] May 27, 2023 8:38am Note Date/Time May 27, 2023 8:3 6am [facility] Medical Records Department [address] [place] [id number] Consultation - Surgical 05/27/2334 MR#: [id number] Acct: [id number] Name: ROMAIN BAILEY Rep #:[id number] : 1950 73 From: Joesph moran MD PCP: Dr. Fatemeh Rogers MD Status:AD M IN [place] [facility] [place] Assessment & Plan Assessment/Plan (1) Acute lower gastrointestinal bleeding: PLAN: The patient has been having blood per rectum all week. Her Eliquis was held yesterday. She did not have any bleeding overnight. CT scan showed colitis of the sigmoid colon possible infectious versus inflammatory or ischemic. The patient's white count and hemoglobin remained stable. This may be ischemic colitis and I would recommend continuing clear liquids until her pain completelyresolves. Continue to monitor hemoglobin. Continue to hold Eliquis. I will keep her on clears for 24 more hours and decide tomorrow what to do. If she hasany more rebleeding I will prep her tomorrow and take her for colonoscopy Sunday. If she continues to tolerate diet and does not have any bloody bowel movements I may advance her diet tomorrow. She just recently had a colonoscopy 2 years ago. Joesph Aleman MD Pager: [facility] [address] [place] [address], [address] [place] [address] Office: HPI Consult Data Date of Consult: 03/31/24 HPI Narrative HPI Narrative: ROMAIN BAILEY, is a 73 F who presents with abdominal pain and bloody diarrhea. The patient reports that she has had lower abdominal pain and cramping and bloody bowel movements for a week. She has also continued the Eliquis she is onfor A-fib. She has had GI bleed in the past and had a scope [address] Cowan. Yesterday she reported that her pain was in the lower abdomen today shereports that it is much improved. She denies any bloody bowel movements overnight. She is passing flatus. She denies any nausea or vomiting. She denies any fevers or chills. [facility] Medical History Acute lower gastrointestinal bleeding Ambulates with cane Asthma Atrial fibrillation Back pain BMI greater than 30 Colitis Community acquired pneumonia CVA (cerebral vascular accident) Diarrhea Essential (primary) hypertension GERD (gastroesophageal reflux disease) History of cataract History of Clostridium difficile infection History of hiatal hernia History of stress test HLD (hyperlipidemia) Migraine Non-smoker On amiodarone therapy Osteoarth NOS-up/arm Osteoarthritis Osteoporosis Paroxysmal atrial fibrillation Post-menopausal Secondary pulmonary arterial hypertension Suspected 2019 novel coronavirus infection (05/19/19) TIA (transient ischemic attack) Traumatic hematoma of abdominal wall 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 Wears partial dentures Home Medications epinephrine 0.3 mg/0.3 mL injection, auto-injector 0.3 mg IM X1 ALLERGIC REACTIONS 05/04/13 [History Last Taken Unknown] loratadine 10 mg tablet 10 mg PO DAILY ALLERGIES 05/04/13 [History Last Taken 05/26/23] albuterol sulfate 90 mcg/actuation aerosol inhaler 2 puff inhalation Q6H PRN Sob&/Or Wheezing 12/26/15 [History Last Taken 09/09/19] meclizine 25 mg tablet 25 mg PO Q6H PRN Dizziness 03/28/16 [History Last Taken 05/26/23] fluticasone propionate 50 mcg/actuation nasal spray,suspension 2 spray NASAL DAILY PRN Allergies 07/02/18 [History Last Taken 09/15/21] albuterol sulfate 2.5 mg/3 mL (0.083 %) solution for nebulization 2.5 mg inhalation Q4H PRN Sob &/Or Wheezing 12/04/18 [History Last Taken 12/01/18] verapamil 240 mg tablet,extended release 240 mg PO DAILY BP #90 tabs 12/30/19 [Rx Last Taken 05/26/23] atorvastatin 40 mg tablet 40 mg PO DAILY cholesterol 11/18/21 [History Last Taken 05/26/23] dicyclomine 10 mg capsule 10 mg PO BID PRN abdominal discomfort #30 caps 02/02/22 [Rx Last Taken Unknown] pantoprazole 40 mg tablet,delayed release See Rx Instructions .Route .COMPLEX stomach #90 tabs 06/12/22 [Rx Last Taken 05/26/23] apixaban 5 mg tablet (Eliquis) 5 mg PO BID thinner #180 tabs 09/15/22 [Rx Last Taken 05/26/23] colestipol 1 gram tablet 1 g PO BID med 30 days #60 tabs 10/25/22 [Rx Last Taken 05/18/23] metoprolol tartrate 25 mg tablet 25 mg PO BID 30 days #60 tabs 02/20/23 [Rx Last Taken 05/26/23] Allergy/AdvReac Type Severity Reaction Status Date / Time adhesive tape Allergy Rash Verified 05/26/23 13:20 pepper (genus Capsicum) Allergy Hives Verified 05/26/23 13:20 propoxyphene HCl Allergy Rash Verified 05/26/23 13:20 [From Darvon] sulfamethoxazole Allergy Shortness Verified 05/26/23 13:20 [From Bactrim] of breath trimethoprim [From Bactrim] Allergy Shortness Verified 05/26/23 13:20 of breath venom-honey bee Allergy Anaphylaxis Verified 05/26/23 13:20 [bee venom (honey bee)] venom-wasp [wasp venom] Allergy Anaphylaxis Verified 05/26/23 13:20 Family History Father CAD (coronary artery disease) Brother Heart disease Surgical History History of cholecystectomy History of colonoscopy (11/21/21) history of mastoid tumor resection History of total hysterectomy Social History Smoking Status: Never smoker alcohol intake: current alcohol intake frequency: holidays/special occasions only substance use type: does not use caffeine: Yes Type: tea Number of servings: 2 ROS Constitutional Constitutional: Denies anorexia, chills or fatigue Eyes Eyes: Denies blurry vision ENT HEENT: Denies abnormal hearing Cardiovascular Cardiovascular: Denies chest pain Respiratory/Chest Respiratory/Chest: Denies cough or dyspnea Gastrointestinal Gastrointestinal: Reports abdominal pain, diarrhea and hematochezia; Denies nausea or vomiting Genitourinary Genitourinary: Denies change in urinary stream Musculoskeletal Musculoskeletal: Denies abnormal gait Neurologic Neurologic: Reports dizziness Psychiatric Psychiatric: Denies anxiety Endocrine Endocrinology: Denies heat intolerance Hematologic/Lymphatic Hematologic/Lymphatic: Reports easy bleeding Physical Exam Const alert, oriented x3 and no apparent distress HEENT normocephalic Eyes PERRL Resp normal respiratory effort Cardio Rate: regular rate Rhythm: regular rhythm GI soft to palpation Palpation: tender LLQ and RLQ Lab / Micro Data 05/27/23 05:15 05/27/23 05:15 Labs: Laboratory Results - last 24 hr 05/26/23 13:55: WBC 5.9, RBC 3.52 L, Hgb 8.2 L, Hct 27.6 L, MCV 78.4 L, MCH 23.3L, MCHC 29.7 L, RDW Std Deviation 41.9, RDW Coeff of Kahlil 14.6, Plt Count 297, MPV 9.7, Immature Gran % (Auto) 0.300, Neut % (Auto) 63.3, Lymph % (Auto) 27.0, Blackford % (Auto) 7.3, Eos % (Auto) 1.4, Baso % (Auto) 0.7, Absolute Neuts (auto) 3.7, Absolute Lymphs (auto) 1.59, Nucleated RBC % 0, Sodium 142, Potassium 3.2 L, Chloride 111 H, Carbon Dioxide 24.0, Anion Gap 7, BUN 16, Creatinine 0.91, Estim Creat Clear Calc 64.36, Est GFR (MDRD) Af Amer 78, Est GFR (MDRD) Non-Af 64, BUN/Creatinine Ratio 17.5, Glucose 152 H, Lactic Acid 2.4 H*, Calcium 8.3 L,Total Bilirubin 0.40, AST 15, ALT 19, Alkaline Phosphatase 123 H, Total Protein 5.9 L, Albumin 3.2, Globulin 2.7, Albumin/Globulin Ratio 1.2 05/26/23 16:00: Blood Type O POSITIVE, Antibody Screen NEGATIVE, Crossmatch See Detail 05/26/23 18:27: Hgb 7.6 L, Hct 24.9 L, Lactic Acid 0.9 05/26/23 22:53: Hgb 8.2 L, Hct 26.6 L 05/27/23 05:15: WBC 4.7, RBC 3.31 L, Hgb 7.8 L, Hct 26.4 L, MCV 79.8 L, MCH 23.6L, MCHC 29.5 L, RDW Std Deviation 42.5, RDW Coeff of Kahlil 14.6, Plt Count 249, MPV 9.7, Immature Gran % (Auto) 0.200, Neut % (Auto) 49.0, Lymph % (Auto) 35.0, Blackford % (Auto) 11.1 H, Eos % (Auto) 3.8, Baso % (Auto) 0.9, Absolute Neuts (auto)2.3, Absolute Lymphs (auto) 1.64, Nucleated RBC % 0, PT 15.9 H, INR 1.3, Sodium 141, Potassium 3.1 L, Chloride 110 H, Carbon Dioxide 27.0, Anion Gap 4 L, BUN 11, Creatinine 0.67, Estim Creat Clear Calc 73.21, Est GFR (MDRD) Af Amer 112, Est GFR (MDRD) Non-Af 93, BUN/Creatinine Ratio 16.5, Glucose 95, Calcium 8.1 L, Total Bilirubin 0.60, AST 16, ALT 17, Alkaline Phosphatase 111, Total Protein 5.3 L, Albumin 2.8 L, Globulin 2.5, Albumin/Globulin Ratio 1.1 Imaging Radiology Impression Abdomen/Pelvis CT 05/26/23 13:44 IMPRESSION: Proctocolitis. Electronically Signed: Vikram Spears MD at 15:39 EDT , 05/27/23 0838 <Electronically signed by Joesph Aleman MD> Cosigner Signature (if applicable): CC: Dr. Joesph Aleman MD; Dr. Nilo Stroud DO; Dr. Fatemeh Rogers MD~ Signed [facility] Work Phone: [phone]) 421-835103-30-2024 History and physical note Author Nilo Stroud [facility] May 26, 2023 4:26pm Note Date/Time May 26, 2023 4:2 4pm [facility] Medical Records Department [address] [facility] [place] [address] H&P Exam - Hospitalist 05/26/23 1619 MR#: [id number] Acct: [id number] Name: ROMAIN BAILEY Rep #:[id number] : 1950 73 From: Nilo Stroud DO PCP: Dr. Fatemeh Rogers MD Status:AD M IN [place] [facility] [id number] HPI - General General Date of Admission: 05/26/23 Date of Service: 05/26/23 Chief Complaint: GI bleed HPI Narrative ROMAIN BAILEY, is a 73 F who presents with a GI bleed. Symptoms began 1 week ago. Patient was hoping it would go away but. Despite the bleeding, she continues to take her apixaban. Did have worsening about a day but overall currently improving. She is starting to feel weak which is what presented her to come to the emergency room. In emergency room, patient's hemoglobin was noted to be 8.2. The ED physician reached out to Dr. Aleman, who would be willing to see the patient in consultation. Patient does complain of abdominal pain. She did have a CAT scan that did show proctocolitis. [facility] Medical History Acute lower gastrointestinal bleeding Ambulates with cane Asthma Atrial fibrillation Back pain BMI greater than 30 Colitis Community acquired pneumonia CVA (cerebral vascular accident) Diarrhea Essential (primary) hypertension GERD (gastroesophageal reflux disease) History of cataract History of Clostridium difficile infection History of hiatal hernia History of stress test HLD (hyperlipidemia) Migraine Non-smoker On amiodarone therapy Osteoarth NOS-up/arm Osteoarthritis Osteoporosis Paroxysmal atrial fibrillation Post-menopausal Secondary pulmonary arterial hypertension Suspected 2019 novel coronavirus infection (05/19/19) TIA (transient ischemic attack) Traumatic hematoma of abdominal wall 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 Wears partial dentures Home Medications epinephrine 0.3 mg/0.3 mL injection, auto-injector 0.3 mg IM X1 ALLERGIC REACTIONS 05/04/13 [History Last Taken Unknown] loratadine 10 mg tablet 10 mg PO DAILY ALLERGIES 05/04/13 [History Last Taken 05/26/23] albuterol sulfate 90 mcg/actuation aerosol inhaler 2 puff inhalation Q6H PRN Sob&/Or Wheezing 12/26/15 [History Last Taken 09/09/19] meclizine 25 mg tablet 25 mg PO Q6H PRN Dizziness 03/28/16 [History Last Taken 05/26/23] fluticasone propionate 50 mcg/actuation nasal spray,suspension 2 spray NASAL DAILY PRN Allergies 07/02/18 [History Last Taken 09/15/21] albuterol sulfate 2.5 mg/3 mL (0.083 %) solution for nebulization 2.5 mg inhalation Q4H PRN Sob &/Or Wheezing 12/04/18 [History Last Taken 12/01/18] verapamil 240 mg tablet,extended release 240 mg PO DAILY BP #90 tabs 12/30/19 [Rx Last Taken 05/26/23] atorvastatin 40 mg tablet 40 mg PO DAILY cholesterol 11/18/21 [History Last Taken 05/26/23] dicyclomine 10 mg capsule 10 mg PO BID PRN abdominal discomfort #30 caps 02/02/22 [Rx Last Taken Unknown] pantoprazole 40 mg tablet,delayed release See Rx Instructions .Route .COMPLEX stomach #90 tabs 06/12/22 [Rx Last Taken 05/26/23] apixaban 5 mg tablet (Eliquis) 5 mg PO BID thinner #180 tabs 09/15/22 [Rx Last Taken 05/26/23] colestipol 1 gram tablet 1 g PO BID med 30 days #60 tabs 10/25/22 [Rx Last Taken 05/18/23] metoprolol tartrate 25 mg tablet 25 mg PO BID 30 days #60 tabs 02/20/23 [Rx Last Taken 05/26/23] Allergy/AdvReac Type Severity Reaction Status Date / Time adhesive tape Allergy Rash Verified 05/26/23 13:20 pepper (genus Capsicum) Allergy Hives Verified 05/26/23 13:20 propoxyphene HCl Allergy Rash Verified 05/26/23 13:20 [From Darvon] sulfamethoxazole Allergy Shortness Verified 05/26/23 13:20 [From Bactrim] of breath trimethoprim [From Bactrim] Allergy Shortness Verified 05/26/23 13:20 of breath venom-honey bee Allergy Anaphylaxis Verified 05/26/23 13:20 [bee venom (honey bee)] venom-wasp [wasp venom] Allergy Anaphylaxis Verified 05/26/23 13:20 Family History Father CAD (coronary artery disease) Brother Heart disease Surgical History History of cholecystectomy History of colonoscopy (11/21/21) history of mastoid tumor resection History of total hysterectomy Social History Smoking Status: Never smoker alcohol intake: current alcohol intake frequency: holidays/special occasions only substance use type: does not use caffeine: Yes Type: tea Number of servings: 2 ROS ROS Narrative Positive chills. No fever. No nausea or vomiting. All review of systems were negative except as mentioned above in the history of present illness and the other review of systems. Vital Signs Vital Signs Vital Signs: 05/26/23 13:18 05/26/23 15:18 05/26/23 16:02 Temperature 35.8 C L 36.6 C Temperature Source Temporal Pulse Rate 78 66 78 Respiratory Rate 16 18 18 Blood Pressure 174/60 H 151/75 H 153/85 H Blood Pressure Mean 98 100 107 Pulse Ox 99 98 100 Oxygen Delivery Method Room Air Room Air 05/26/23 16:04 Temperature 36.8 C Temperature Source Temporal Pulse Rate 74 Respiratory Rate 18 Blood Pressure 153/85 H Blood Pressure Mean 107 Pulse Ox 99 Oxygen Delivery Method Nasal Cannula Weight Weight: 93.44 kg Body Mass Index (BMI) 33.2 Physical Exam Narrative - Physical Exam General: Alert, Oriented x3, Cooperative. Patient is having active chills in the hospital. HEENT: Atraumatic, PERRLA, EOMI, Normocephalic Oral: Moist Mucosa, No Gingival or Mucosal Lesions/ Ulcerations Neck: Supple, No JVD, Negative Carotid Bruits Lungs: Clear to auscultation, Normal air movement Cardiovascular: Regular rate, Normal S1, Normal S2, No murmurs Abdomen: Bowel Sounds Present, Soft, tender in left lower quadrant with slight rebound., Non-Distended, No Hepato-splenomegaly Extremities: No clubbing, No cyanosis, No edema, Capillary Refill Less than 3 Seconds Skin: No rashes, No breakdown Musculoskeletal: No Tenderness to Palpation of Joints or Extremities Neurological: Neuro grossly intact Psych/Mental Status: Normal Affect, Appropriate Results Lab / Micro Data Attestation: I reviewed the patient's lab results. 05/26/23 13:55 05/26/23 13:55 Labs: Laboratory Results - last 24 hr 05/26/23 13:55: WBC 5.9, RBC 3.52 L, Hgb 8.2 L, Hct 27.6 L, MCV 78.4 L, MCH 23.3L, MCHC 29.7 L, RDW Std Deviation 41.9, RDW Coeff of Kahlil 14.6, Plt Count 297, MPV 9.7, Immature Gran % (Auto) 0.300, Neut % (Auto) 63.3, Lymph % (Auto) 27.0, Blackford % (Auto) 7.3, Eos % (Auto) 1.4, Baso % (Auto) 0.7, Absolute Neuts (auto) 3.7, Absolute Lymphs (auto) 1.59, Nucleated RBC % 0, Sodium 142, Potassium 3.2 L, Chloride 111 H, Carbon Dioxide 24.0, Anion Gap 7, BUN 16, Creatinine 0.91, Estim Creat Clear Calc 64.36, Est GFR (MDRD) Af Amer 78, Est GFR (MDRD) Non-Af 64, BUN/Creatinine Ratio 17.5, Glucose 152 H, Lactic Acid 2.4 H*, Calcium 8.3 L,Total Bilirubin 0.40, AST 15, ALT 19, Alkaline Phosphatase 123 H, Total Protein 5.9 L, Albumin 3.2, Globulin 2.7, Albumin/Globulin Ratio 1.2 05/26/23 16:00: Crossmatch See Detail Imaging Radiology Impression Abdomen/Pelvis CT 05/26/23 13:44 IMPRESSION: Proctocolitis. Electronically Signed: Vikram Spears MD at 15:39 EDT , Assessment & Plan Assessment/Plan (1) GI bleed: PLAN: Plan GI bleed * Secondary to proctocolitis complicated by her ongoing use of apixaban * Treat the underlying cause as well as holding her apixaban for now. * General surgery to see and tentative plan for colonoscopy/flexible sigmoidoscopy. * If worse, consider bleeding scan. Suspect acute blood loss anemia * Current hemoglobin is 8.2. Back on of last year, it was 11. Do not have any hemoglobins in the interim. * Monitor hemoglobin. No indication to transfuse at this point in time. Goal is to keep hemoglobin greater than equal to 7. Proctocolitis * Suspect either infectious versus ischemic. Much less likely would be inflammatory. * Antibiotics with ciprofloxacin and metronidazole Chronic conditions * Paroxysmal atrial fibrillation: Hold apixaban. Continue with metoprolol titrate * Hypertension: Continue with verapamil * COPD: Stable continue bronchodilators. VTE prophylaxis: Chemical prophylaxis contraindicated in light of GI bleed. SCDs CODE STATUS: Addressed with patient. Patient was to be full code. Charges/Coding Visit Charges Inpatient E&M: 31909 Init Hosp L3 05/26/23 1626 <Electronically signed by Nilo Stroud DO> Cosigner Signature (if applicable): CC: Dr. Nilo Stroud DO; Dr. Fatemeh Rogers MD~ Signed [facility] Work Phone: [phone]) 885-926503-30-2024 Discharge summary Author Dwight Ruff [facility] May 26, 2023 3:54pm Note Date/Time May 26, 2023 1:4 7pm [facility] Medical Records Department [address] [place] [address] Emergency Department Summary 05/26/23 MR#: [id number] Acct: [id number] Name: ROMAIN BAILEY Rep #:[id number] : 1950 73 From: Dwight Ruff MD PCP: Dr. Fatemeh Rogers MD Status:RE G ER Location: ED HPI HPI - GI History of Present Illness Chief Complaint: GI Bleed Informant: patient Narrative Narrative: Patient with 1 week of intermittent lower abdominal pain and rectal bleeding. Today, she had an explosive episode of bleeding while sitting on the toilet, andshe is in more severe lower abdominal pain. It radiates into her low back. Sheis on Eliquis for A-fib and she has continued to take it for the past week. Sheis now feeling lightheaded and near syncopal when she stands up. [facility] Medical History Acute lower gastrointestinal bleeding Ambulates with cane Asthma Atrial fibrillation Back pain BMI greater than 30 Colitis Community acquired pneumonia CVA (cerebral vascular accident) Diarrhea Essential (primary) hypertension GERD (gastroesophageal reflux disease) History of cataract History of Clostridium difficile infection History of hiatal hernia History of stress test HLD (hyperlipidemia) Migraine Non-smoker On amiodarone therapy Osteoarth NOS-up/arm Osteoarthritis Osteoporosis Paroxysmal atrial fibrillation Post-menopausal Secondary pulmonary arterial hypertension Suspected 2019 novel coronavirus infection (05/19/19) TIA (transient ischemic attack) Traumatic hematoma of abdominal wall 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 Wears partial dentures Home Medications epinephrine 0.3 mg/0.3 mL injection, auto-injector 0.3 mg IM X1 ALLERGIC REACTIONS 05/04/13 [History Last Taken Unknown] loratadine 10 mg tablet 10 mg PO DAILY ALLERGIES 05/04/13 [History Last Taken 09/15/21] albuterol sulfate 90 mcg/actuation aerosol inhaler 2 puff inhalation Q6H PRN Sob&/Or Wheezing 12/26/15 [History Last Taken 09/09/19] cyclosporine 0.05 % eye drops in a dropperette 1 drp EACH EYE BID ALLERGIES 03/28/16 [History Last Taken 09/15/21] meclizine 25 mg tablet 25 mg PO Q6H PRN Dizziness 03/28/16 [History Last Taken 09/12/19] fluticasone propionate 50 mcg/actuation nasal spray,suspension 2 spray NASAL DAILY PRN PRN Allergies 07/02/18 [History Last Taken 09/15/21] albuterol sulfate 2.5 mg/3 mL (0.083 %) solution for nebulization 2.5 mg inhalation Q4H PRN Sob &/Or Wheezing 12/04/18 [History Last Taken 12/01/18] benzonatate 100 mg capsule 200 mg (2 x 100 mg) PO TID PRN Cough #20 caps 04/26/19 [Rx Last Taken Unknown] verapamil 240 mg tablet,extended release 240 mg PO DAILY BP #90 tabs 12/30/19 [Rx Last Taken 11/24/21] atorvastatin 40 mg tablet 40 mg PO DAILY cholesterol 11/18/21 [History Last Taken Unknown] scopolamine base 1 mg over 3 days transdermal patch 1 patch transdermal Q3D PRN nausea and vomiting #4 ea 01/13/22 [Rx Last Taken Unknown] dicyclomine 10 mg capsule 10 mg PO BID PRN abdominal discomfort #30 caps 02/02/22 [Rx Last Taken Unknown] pantoprazole 40 mg tablet,delayed release See Rx Instructions .Route .COMPLEX stomach #90 tabs 06/12/22 [Rx Last Taken Unknown] apixaban 5 mg tablet (Eliquis) 5 mg PO BID thinner #180 tabs 09/15/22 [Rx Last Taken 05/26/23] colestipol 1 gram tablet 1 g PO BID med 30 days #60 tabs 10/25/22 [Rx Last Taken Unknown] cefdinir 300 mg capsule 300 mg PO BID 3 days #6 caps 02/20/23 [Rx Last Taken Unknown] metoprolol tartrate 25 mg tablet 25 mg PO BID 30 days #60 tabs 02/20/23 [Rx Last Taken Unknown] prednisone 10 mg tablet 40 mg (4 x 10 mg) PO BREAKFAST #42 tabs 02/20/23 [Rx Last Taken Unknown] Allergy/AdvReac Type Severity Reaction Status Date / Time adhesive tape Allergy Rash Verified 05/26/23 13:20 pepper (genus Capsicum) Allergy Hives Verified 05/26/23 13:20 propoxyphene HCl Allergy Rash Verified 05/26/23 13:20 [From Darvon] sulfamethoxazole Allergy Shortness Verified 05/26/23 13:20 [From Bactrim] of breath trimethoprim [From Bactrim] Allergy Shortness Verified 05/26/23 13:20 of breath venom-honey bee Allergy Anaphylaxis Verified 05/26/23 13:20 [bee venom (honey bee)] venom-wasp [wasp venom] Allergy Anaphylaxis Verified 05/26/23 13:20 Family History Father CAD (coronary artery disease) Brother Heart disease Surgical History History of cholecystectomy History of colonoscopy (11/21/21) history of mastoid tumor resection History of total hysterectomy Social History Smoking Status: Never smoker alcohol intake: current alcohol intake frequency: holidays/special occasions only substance use type: does not use caffeine: Yes Type: tea Number of servings: 2 ROS ROS ED Constitutional Constitutional ED: Denies chills or fever(s) Eyes Eyes: Denies change in vision or diplopia ENT ENT ED: Denies rhinorrhea or sore throat Cardiovascular Cardiovascular: Reports lightheadedness; Denies chest pain, palpitations or syncope Respiratory/Chest Respiratory/Chest: Denies cough or dyspnea Gastrointestinal Gastrointestinal: Reports abdominal pain, diarrhea, hematochezia, nausea and other Details: Initially felt like there was some hemorrhoid but denies feeling like that now. ; Denies melena or vomiting Genitourinary Genitourinary ED: Denies dysuria or hematuria Musculoskeletal Musculoskeletal: Denies back pain or neck pain Integumentary Denies abscess or rash Neurologic Neurologic: Denies headache(s), paresthesias or weakness Psychiatric Psychiatric: Denies suicidal thoughts EXAM Physical Exam Const Vital Signs: 05/26/23 13:18 05/26/23 15:18 Temperature 96.4 F L Temperature Source Temporal Pulse Rate 78 66 Respiratory Rate 16 18 Blood Pressure 174/60 H 151/75 H Blood Pressure Mean 98 100 Pulse Ox 99 98 Oxygen Delivery Method Room Air Room Air Positive well nourished, well developed and obese General Appearance ED: well developed and NAD Nutritional Appearance: obese HEENT Reports moist mucous membranes normocephalic and atraumatic Eyes PERRL and EOMs intact bilaterally Neck full ROM and supple Resp normal respiratory effort and clear to auscultation bilaterally Cardio Rate: Negative for tachycardic Rhythm: abnormal rhythm irregularly irregular GI non-distended GI Narrative: Tender without guarding or rebound throughout the lower abdomen nonfocal obesitylimits exam. On rectal exam, there is no active bleeding/pooling on rectal, no focal tenderness or feeling of an abscess, no prolapsed internal or external hemorrhoids seen. Auscultation: normoactive bowel sounds Palpation: soft Back/Spine no CVA tenderness General Back: other FROM Extremity normal to inspection General Extremety ED: Negative for edema, pulses abnormal or tenderness General Extremity: Negative for edema or pulses abnormal Neuro oriented x3, CN's II-XII intact bilaterally and no sensory deficits noted Sensorium / Orientation: awake and alert Motor Exam: strength 5/5 throughout Skin no rashes or lesions noted and no wounds MDM MDM MDM Narrative Medical decision making narrative: Labs the patient has a hemoglobin of 8.2, this is down from 11 which was a couple months ago. Her BUN is not significantly high to suggest an upper GI source. Her lactic acid is slightly elevated at 2.4. Ischemic colitis is in the differential here, although less likely given that the patient is anticoagulated; she took her last dose of Eliquis this morning. She is feeling much better after IV fluids, Zofran, morphine. Her vital signs are stable/normal, she was little hypertensive when she initially arrived but now 151/75. CT of the abdomen/pelvis was obtained given the symptoms, tenderness, and lactic acidosis. Discussed with Dr. Aleman, since we do not have gastroenterology on this weekend. He agrees that admitting the patient is appropriate and will be happy to consult and scope tomorrow if needed. Patient currently not actively bleeding. Will discuss with hospitalist. Patient is comfortable getting blood transfusion if/when indicated. I do not think she needs an emergent one since her blood pressure is good and her last hemoglobin was 8.2, but this will be followed. Lab Data Attestation: I reviewed the patient's lab results. Labs: Laboratory Results - last 24 hr 05/26/23 13:55 WBC 5.9 RBC 3.52 L Hgb 8.2 L Hct 27.6 L MCV 78.4 L MCH 23.3 L MCHC 29.7 L RDW Std Deviation 41.9 RDW Coeff of Kahlil 14.6 Plt Count 297 MPV 9.7 Immature Gran % (Auto) 0.300 Neut % (Auto) 63.3 Lymph % (Auto) 27.0 Blackford % (Auto) 7.3 Eos % (Auto) 1.4 Baso % (Auto) 0.7 Absolute Neuts (auto) 3.7 Absolute Lymphs (auto) 1.59 Nucleated RBC % 0 Sodium 142 Potassium 3.2 L Chloride 111 H Carbon Dioxide 24.0 Anion Gap 7 BUN 16 Creatinine 0.91 Estim Creat Clear Calc 64.36 Est GFR (MDRD) Af Amer 78 Est GFR (MDRD) Non-Af 64 BUN/Creatinine Ratio 17.5 Glucose 152 H Lactic Acid 2.4 H* Calcium 8.3 L Total Bilirubin 0.40 AST 15 ALT 19 Alkaline Phosphatase 123 H Total Protein 5.9 L Albumin 3.2 Globulin 2.7 Albumin/Globulin Ratio 1.2 Radiography Diagnostic Testing: Clinical Impression(s) from Imaging Studies Abdomen/Pelvis CT 05/26/23 13:44 IMPRESSION: Proctocolitis. Electronically Signed: Vikram Spears MD at 15:39 EDT , Management Discussion w/another healthcare provider: Hospitalist and Dumpster Operator (Surgery Dr. Aleman) Discharge Plan Dx/Rx/DC Orders Clinical Impression: ABLA (acute blood loss anemia), [facility]CI current use of anticoagulant, Acute lower gastrointestinal bleeding Disposition Disposition: Acute Care Hospital [facility] What to do if you have Problems For any increased pain, shortness of breath, bleeding, nausea or vomiting, chestpain, or any unexpected problems, contact your Primary Care Provider. Call [facility] ([phone]) or report to the closest Emergency Room. Call 911 if necessary. 05/26/23 1547 <Electronically signed by Dwight Ruff MD> Cosigner Signature (if applicable): CC: Dr. Fatemeh Rogers MD ~ Signed ADDENDUM by Dr. Dwight Ruff MD on 05/26/23 at [address] images and the report which I agree with, showing proctocolitis nonspecific. 05/26/23 1548<Electronically signed by Dwight Ruff MD> Cosigner Signature (if applicable): cc: Dr. Fatemeh Rogers MD ~* Signed ADDENDUM by Dr. Dwight Ruff MD on 05/26/23 at 1554 After discussing with surgery, I agree that transfusing prophylactically with unit of blood is reasonable given the patient is orthostatic and has symptomaticanemia. Discussed with patient she is comfortable with transfusion, ordering 1 unit typed and crossed for right now. Critical care time 36 minutes including bedside discussion and care, discussion with consultants, arranging admission, and documentation. 05/26/23 1554<Electronically signed by Dwight Ruff MD> Cosigner Signature (if applicable): cc: Dr. Fatemeh Rogers MD ~* Signed [facility] Work Phone: 1(685) 896-425203-30-2024 Discharge summary Author Dwight Ruff [facility] May 26, 2023 3:54pm Note Date/Time May 26, 2023 1:4 7pm [facility] Medical Records Department [address] [place] [address] Emergency Department Summary 05/26/23 MR#: [id number] Acct: [id number] Name: ROMAIN BAILEY Rep #:[id number] : 1950 73 From: Dwight Ruff MD PCP: Dr. Fatemeh Rogers MD Status:RE G ER Location: ED HPI HPI - GI History of Present Illness Chief Complaint: GI Bleed Informant: patient Narrative Narrative: Patient with 1 week of intermittent lower abdominal pain and rectal bleeding. Today, she had an explosive episode of bleeding while sitting on the toilet, andshe is in more severe lower abdominal pain. It radiates into her low back. Sheis on Eliquis for A-fib and she has continued to take it for the past week. Sheis now feeling lightheaded and near syncopal when she stands up. [facility] Medical History Acute lower gastrointestinal bleeding Ambulates with cane Asthma Atrial fibrillation Back pain BMI greater than 30 Colitis Community acquired pneumonia CVA (cerebral vascular accident) Diarrhea Essential (primary) hypertension GERD (gastroesophageal reflux disease) History of cataract History of Clostridium difficile infection History of hiatal hernia History of stress test HLD (hyperlipidemia) Migraine Non-smoker On amiodarone therapy Osteoarth NOS-up/arm Osteoarthritis Osteoporosis Paroxysmal atrial fibrillation Post-menopausal Secondary pulmonary arterial hypertension Suspected 2019 novel coronavirus infection (05/19/19) TIA (transient ischemic attack) Traumatic hematoma of abdominal wall 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 Wears partial dentures Home Medications epinephrine 0.3 mg/0.3 mL injection, auto-injector 0.3 mg IM X1 ALLERGIC REACTIONS 05/04/13 [History Last Taken Unknown] loratadine 10 mg tablet 10 mg PO DAILY ALLERGIES 05/04/13 [History Last Taken 09/15/21] albuterol sulfate 90 mcg/actuation aerosol inhaler 2 puff inhalation Q6H PRN Sob&/Or Wheezing 12/26/15 [History Last Taken 09/09/19] cyclosporine 0.05 % eye drops in a dropperette 1 drp EACH EYE BID ALLERGIES 03/28/16 [History Last Taken 09/15/21] meclizine 25 mg tablet 25 mg PO Q6H PRN Dizziness 03/28/16 [History Last Taken 09/12/19] fluticasone propionate 50 mcg/actuation nasal spray,suspension 2 spray NASAL DAILY PRN PRN Allergies 07/02/18 [History Last Taken 09/15/21] albuterol sulfate 2.5 mg/3 mL (0.083 %) solution for nebulization 2.5 mg inhalation Q4H PRN Sob &/Or Wheezing 12/04/18 [History Last Taken 12/01/18] benzonatate 100 mg capsule 200 mg (2 x 100 mg) PO TID PRN Cough #20 caps 04/26/19 [Rx Last Taken Unknown] verapamil 240 mg tablet,extended release 240 mg PO DAILY BP #90 tabs 12/30/19 [Rx Last Taken 11/24/21] atorvastatin 40 mg tablet 40 mg PO DAILY cholesterol 11/18/21 [History Last Taken Unknown] scopolamine base 1 mg over 3 days transdermal patch 1 patch transdermal Q3D PRN nausea and vomiting #4 ea 01/13/22 [Rx Last Taken Unknown] dicyclomine 10 mg capsule 10 mg PO BID PRN abdominal discomfort #30 caps 02/02/22 [Rx Last Taken Unknown] pantoprazole 40 mg tablet,delayed release See Rx Instructions .Route .COMPLEX stomach #90 tabs 06/12/22 [Rx Last Taken Unknown] apixaban 5 mg tablet (Eliquis) 5 mg PO BID thinner #180 tabs 09/15/22 [Rx Last Taken 05/26/23] colestipol 1 gram tablet 1 g PO BID med 30 days #60 tabs 10/25/22 [Rx Last Taken Unknown] cefdinir 300 mg capsule 300 mg PO BID 3 days #6 caps 02/20/23 [Rx Last Taken Unknown] metoprolol tartrate 25 mg tablet 25 mg PO BID 30 days #60 tabs 02/20/23 [Rx Last Taken Unknown] prednisone 10 mg tablet 40 mg (4 x 10 mg) PO BREAKFAST #42 tabs 02/20/23 [Rx Last Taken Unknown] Allergy/AdvReac Type Severity Reaction Status Date / Time adhesive tape Allergy Rash Verified 05/26/23 13:20 pepper (genus Capsicum) Allergy Hives Verified 05/26/23 13:20 propoxyphene HCl Allergy Rash Verified 05/26/23 13:20 [From Darvon] sulfamethoxazole Allergy Shortness Verified 05/26/23 13:20 [From Bactrim] of breath trimethoprim [From Bactrim] Allergy Shortness Verified 05/26/23 13:20 of breath venom-honey bee Allergy Anaphylaxis Verified 05/26/23 13:20 [bee venom (honey bee)] venom-wasp [wasp venom] Allergy Anaphylaxis Verified 05/26/23 13:20 Family History Father CAD (coronary artery disease) Brother Heart disease Surgical History History of cholecystectomy History of colonoscopy (11/21/21) history of mastoid tumor resection History of total hysterectomy Social History Smoking Status: Never smoker alcohol intake: current alcohol intake frequency: holidays/special occasions only substance use type: does not use caffeine: Yes Type: tea Number of servings: 2 ROS ROS ED Constitutional Constitutional ED: Denies chills or fever(s) Eyes Eyes: Denies change in vision or diplopia ENT ENT ED: Denies rhinorrhea or sore throat Cardiovascular Cardiovascular: Reports lightheadedness; Denies chest pain, palpitations or syncope Respiratory/Chest Respiratory/Chest: Denies cough or dyspnea Gastrointestinal Gastrointestinal: Reports abdominal pain, diarrhea, hematochezia, nausea and other Details: Initially felt like there was some hemorrhoid but denies feeling like that now. ; Denies melena or vomiting Genitourinary Genitourinary ED: Denies dysuria or hematuria Musculoskeletal Musculoskeletal: Denies back pain or neck pain Integumentary Denies abscess or rash Neurologic Neurologic: Denies headache(s), paresthesias or weakness Psychiatric Psychiatric: Denies suicidal thoughts EXAM Physical Exam Const Vital Signs: 05/26/23 13:18 05/26/23 15:18 Temperature 96.4 F L Temperature Source Temporal Pulse Rate 78 66 Respiratory Rate 16 18 Blood Pressure 174/60 H 151/75 H Blood Pressure Mean 98 100 Pulse Ox 99 98 Oxygen Delivery Method Room Air Room Air Positive well nourished, well developed and obese General Appearance ED: well developed and NAD Nutritional Appearance: obese HEENT Reports moist mucous membranes normocephalic and atraumatic Eyes PERRL and EOMs intact bilaterally Neck full ROM and supple Resp normal respiratory effort and clear to auscultation bilaterally Cardio Rate: Negative for tachycardic Rhythm: abnormal rhythm irregularly irregular GI non-distended GI Narrative: Tender without guarding or rebound throughout the lower abdomen nonfocal obesitylimits exam. On rectal exam, there is no active bleeding/pooling on rectal, no focal tenderness or feeling of an abscess, no prolapsed internal or external hemorrhoids seen. Auscultation: normoactive bowel sounds Palpation: soft Back/Spine no CVA tenderness General Back: other FROM Extremity normal to inspection General Extremety ED: Negative for edema, pulses abnormal or tenderness General Extremity: Negative for edema or pulses abnormal Neuro oriented x3, CN's II-XII intact bilaterally and no sensory deficits noted Sensorium / Orientation: awake and alert Motor Exam: strength 5/5 throughout Skin no rashes or lesions noted and no wounds MDM MDM MDM Narrative Medical decision making narrative: Labs the patient has a hemoglobin of 8.2, this is down from 11 which was a couple months ago. Her BUN is not significantly high to suggest an upper GI source. Her lactic acid is slightly elevated at 2.4. Ischemic colitis is in the differential here, although less likely given that the patient is anticoagulated; she took her last dose of Eliquis this morning. She is feeling much better after IV fluids, Zofran, morphine. Her vital signs are stable/normal, she was little hypertensive when she initially arrived but now 151/75. CT of the abdomen/pelvis was obtained given the symptoms, tenderness, and lactic acidosis. Discussed with Dr. Aleman, since we do not have gastroenterology on this weekend. He agrees that admitting the patient is appropriate and will be happy to consult and scope tomorrow if needed. Patient currently not actively bleeding. Will discuss with hospitalist. Patient is comfortable getting blood transfusion if/when indicated. I do not think she needs an emergent one since her blood pressure is good and her last hemoglobin was 8.2, but this will be followed. Lab Data Attestation: I reviewed the patient's lab results. Labs: Laboratory Results - last 24 hr 05/26/23 13:55 WBC 5.9 RBC 3.52 L Hgb 8.2 L Hct 27.6 L MCV 78.4 L MCH 23.3 L MCHC 29.7 L RDW Std Deviation 41.9 RDW Coeff of Kahlil 14.6 Plt Count 297 MPV 9.7 Immature Gran % (Auto) 0.300 Neut % (Auto) 63.3 Lymph % (Auto) 27.0 Blackford % (Auto) 7.3 Eos % (Auto) 1.4 Baso % (Auto) 0.7 Absolute Neuts (auto) 3.7 Absolute Lymphs (auto) 1.59 Nucleated RBC % 0 Sodium 142 Potassium 3.2 L Chloride 111 H Carbon Dioxide 24.0 Anion Gap 7 BUN 16 Creatinine 0.91 Estim Creat Clear Calc 64.36 Est GFR (MDRD) Af Amer 78 Est GFR (MDRD) Non-Af 64 BUN/Creatinine Ratio 17.5 Glucose 152 H Lactic Acid 2.4 H* Calcium 8.3 L Total Bilirubin 0.40 AST 15 ALT 19 Alkaline Phosphatase 123 H Total Protein 5.9 L Albumin 3.2 Globulin 2.7 Albumin/Globulin Ratio 1.2 Radiography Diagnostic Testing: Clinical Impression(s) from Imaging Studies Abdomen/Pelvis CT 05/26/23 13:44 IMPRESSION: Proctocolitis. Electronically Signed: Vikram Spears MD at 15:39 EDT , Management Discussion w/another healthcare provider: Hospitalist and Dumpster Operator (Surgery Dr. Aleman) Discharge Plan Dx/Rx/DC Orders Clinical Impression: ABLA (acute blood loss anemia), 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, Acute lower gastrointestinal bleeding Disposition Disposition: Acute Care [facility] What to do if you have Problems For any increased pain, shortness of breath, bleeding, nausea or vomiting, chestpain, or any unexpected problems, contact your Primary Care Provider. Call [facility] ([phone]) or report to the closest Emergency Room. Call 911 if necessary. 05/26/23 1547 <Electronically signed by Dwight Ruff MD> Cosigner Signature (if applicable): CC: Dr. Fatemeh Rogers MD ~ Signed ADDENDUM by Dr. Dwight Ruff MD on 05/26/23 at [address] images and the report which I agree with, showing proctocolitis nonspecific. 05/26/23 1548<Electronically signed by Dwight Ruff MD> Cosigner Signature (if applicable): cc: Dr. Fatemeh Rogers MD ~* Signed ADDENDUM by Dr. Dwight Ruff MD on 05/26/23 at 1554 After discussing with surgery, I agree that transfusing prophylactically with unit of blood is reasonable given the patient is orthostatic and has symptomaticanemia. Discussed with patient she is comfortable with transfusion, ordering 1 unit typed and crossed for right now. Critical care time 36 minutes including bedside discussion and care, discussion with consultants, arranging admission, and documentation. 05/26/23 1554<Electronically signed by Dwight Ruff MD> Cosigner Signature (if applicable): cc: Dr. Fatemeh Rogers MD ~* Signed [facility] Work Phone: 1(427) 209-439302-15-2024 Miscellaneous Notes* Telephone Encounter - Elise Knox LPN - 04/12/2023 4:30 PM EST Order has been faxed * Telephone Encounter - Faith Mullins APRN.CNS - 04/12/2023 3:43 PM EST OK printed order, please process * Telephone Encounter - Elise Knox LPN - 04/12/2023 10:55 AM EST Spoke with patient and she is no longer using oxygen. States it is no longer needed. She has pulse ox at home and uses it frequently and pulse ox's have been good with the last reading on 04/08/23of 97% * Telephone Encounter - Faith Mullins APRN.CNS - 04/12/2023 9:29 AM EST At her visit in February she reported using oxygen at night, check to see if doing this at all now. Does she have any pulse ox readings from at home? If so would be good to have her most recent. Once we obtain this information can complete a letter and send it as requested. * Telephone Encounter - Rashmi Horan LPN - 04/11/2023 10:20 AM EST Called pt to review that the office did rec'd order request from [facility] for an over night pulse ox. Pt declines this. She notes not using O2. 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 She would like the O2 discontinued. She asked [facility] to remove but they told her d/c order is needed from pcp's office. Please review and print order to d/c We can fax this to [facility] at [phone]. Pt reports no noted shortness of breathe at all and not on exertion. documented in this encounterPrem[facility]02-09-2024 Miscellaneous Notes* Telephone Encounter - Bijal Mcdonald LPN - 04/06/2023 4:24 PM EST Letter is ready for machine operator hop picker in Medical Records. Left message for daughter. * Telephone Encounter - Faith Mullins APRN.CNS - 04/06/2023 3:55 PM EST Printed, please process * Telephone Encounter - Susu James MA - 04/06/2023 2:04 PM EST Order pended, please file if agreeable. Susu James MA * Telephone Encounter - Bobbi Crockett - 04/06/2023 12:57 PM EST Patient's daughter calling for a new Rx for Romain's handicap placard. Please call her when ready [phone] and she will pick it up. documented in this encounterPremier [facility]02-08-2024 Miscellaneous Notes* Telephone Encounter - Fannie Mario RN - 04/05/2023 10:05 AM EST Patient notified. Fannie Mario RN * Telephone Encounter - Faith Mullins APRN.CNS - 04/04/2023 6:49 PM EST Recommend drinking sufficient fluids, aim for 64 oz/day, dietary fiber, miralax daily if needed forconstipation. ER for any concerning symptoms/bleeding. Can try OTC hemorrhoid treatment if needed. * Telephone Encounter - SawyerNarinder, RN - 04/04/2023 8:19 AM EST Patient had bright red blood with 2 [...] protocol recommendations with pt. Schedule appt with Supervisor Tank Cleaning for tomorrow at time that works best [...] fluid intake, and stools are soft now. Reportsshe does have a hemorroid just inside of [...] Sunday. passed a lot of bright red bloodwith soft stool. Bleeding stopped an hour or [...] : No. Hx hysterectomy. Protocols used: Rectal Niilcmda-[id number]-OY documented in this encounterPremier [facility]01-30-2024 Miscellaneous Notes* Result Encounter Note - Faith Mullins APRN.CNS - 03/27/2023 9:07 AM EST Followed by [facility]. Echo shows 1+ MR, increased TR 2+ elevated RVSP. Should continue on with diuretic and schedule appointment with cardiology for now. documented in this encounterPremier [facility]01-02-2024 History of Present illness Narrative* Fatemeh Rogers MD - 02/27/2023 12:39 PM EST This note was created using f4samurairiter. Subjective Romain Bailey is a 72 year old female. Patient presents with: Hospital F/U SUBJECTIVE: Romain Bailey is a 72 year old year old lady here today for follow up month follow up appointmentfor review of medical conditions. Coughing last night after eating cookie and tea. Waiting for reflux med--might have been shipped but needs to check at home Was in [facility] --reviewed records. Asthma exacerbation, A fib [...] kg (197 lb 6.4 oz) SpO2 97% BMI31.86 kg/m Last 5 Encounter Wt Readings: Date: Wt: 02/27/2023 89.5 kg (197 lb 6.4 oz) 02/10/2023 93.6 kg (206 lb 6.4 oz) 01/01/2023 93.4 kg (206 lb) 11/25/2022 93.2 kg (205 lb 6.4 oz) 11/16/2022 93.4 kg (206 lb) No waist measurement recorded Estimated body mass index is 31.86 kg/m as calculated from the following: Height as of 08/10/22: 167.6 cm (5' 6). Weight as of this encounter: 89.5 kg [...] indicated. Fatemeh Rogers MD documented in this encounterPremier [facility]12-21-2023 Miscellaneous Notes* Telephone Encounter - Narinder Jacques RN - 02/15/2023 11:27 AM EST Patient reports she was seen in and prescribed tessalon perrles for bronchitis cough and completed prednisone yesterday. Reports she continues to cough (1 week now). Reports she is drinking plentyof fluids. Reports she has no energy. Reports she is using her nebulizer, which helps. Reports her throat gets sore from cough.- and states it is a productive cough. Advised to try warm salt water gargles for sore throat, and advised a cool mist humidifier is helpful. Patient agreeable. Reports herhome covid test was negative. Patient declined appt at this time. States she will see how she feelstomorrow, and if having concerns about her symptoms will call pcp office or go to [facility] for evaluation. documented in this encounterPremier Health [facility]12-16-2023 History of Present illness Narrative* Felicity Snow PA-C - 02/10/2023 10:30 AM EST This note was created using NoteWriter. Subjective Romain Bailey is a 72 year old female. HPI Presents with cough wheezing over the past 4 days. She denies vomiting or diarrhea. She states lastnight she felt the chest tightness worsen. She does have a history of asthma. She has been using her albuterol nebulizer. She did have a fever yesterday of 100.6. Home COVID test was negative. [place] contacts. Review of Systems Constitutional: Positive for [...] needed for wheezing/shortness of breath. Use over 5- 15minutes. 90 mL 3 apixaban (ELIQUIS) 5 mg [...] Diabetes Father Ischemic Heart Disease Father d. [place] Ischemic Heart Disease Maternal Grandfather d. [place] while holding her at 4mo Blindness Brother Heart Attack Brother Social History Tobacco Use Smoking status: Never Smokeless tobacco: Never Vaping Use Vaping Use: Never used Substance Use Topics Alcohol use: No Drug use: No Objective BP 134/76 Pulse 83 Temp 36.8 C (98.3 F) Resp 18 Wt 93.6 kg (206 lb 6.4 oz) SpO2 96% BMI33.31 kg/m Physical Exam Vitals reviewed. Constitutional: Appearance: [...] MG (2.5 MG BASE)/3 ML NEBULIZATION MAUDE Snow PA-C documented in this encounterPremier Health [facility]11-06-2023 Instructions* Patient Instructions* Faith Mullins APRN.CNS - 01/01/2023 9:14 AM EST Consider getting RSV and shingles vaccine at your local pharmacy documented in this encounterPremier Health [facility]11-06-2023 History of Present illness Narrative* Faith Mullins APRN.CNS - 01/01/2023 9:00 AM EST SUBJECTIVE: Spirometry Never done Shingrix Vaccine(1 of [...] Since last here had GIB, colitis at [facility] 09/15/2021. Seen by Dr Cowan 11/2021 in office. Colonoscopy end of October. Fibroscan recommended, then follow up recommended. Presents at [facility] to establish care. She reports losing her job and pandemic and getting behind intermittent. Notes her current landlordis trying to evict her. She reports she reached out to community action about 1 month ago and does not hurt anymore from her landlord. Seen by Fatemeh Rogers MD June 2022. Noted plan to follow-up with pain management regarding sacroiliitis. Seen by [facility] spine provider, see my chart message July 2022. Note she is in her usual state of health. Notes she has 5 pies to make for her large family for . Followed by [facility].Dr Damico [facility] pharmacologic myocardial perfusion stress test completed for chest pain. Negative for ischemia, preserved ejection fraction. On chronic OAC. No bleeding difficulties. Express care visit September 07 for swelling of gland right eyelid. ER visit November 04, 2022, [facility] for fall and right wrist injury. Express care visit November 16 for upper respiratory infection. Express care visit for infection of right eye November 25, 2022. She has subsequently followed up with [facility]. Has a February appointment regarding her right [...] get new shoes [facility]. Review of Systems Constitutional: Negative. [...] Abs Lymph 1.00 - 4.00 k/uL 1.95 Blackford% % 9.6 10.0 Abs Blackford <0.87 k/uL 0.68 Eosin% % 1.5 Abs [...] YR, HIGH DOSE, QUADRIVALENT (FLUZONE HIGH-DOSE) - [employer] COVID-19 VACCINE (2022- SEASON) AGE 12+ YR [...] been seen by Dr. Cowan gastroenterology at [facility]. 7. Hyperlipidemia, mixed - ICD9: 272.2, ICD10: [...] Fatemeh Rogers MD with labs Faith Mullins APRN.FINANCIAL SALES CONSULTANT Medical Decision Making: Problems: Moderate: 2+ stable chronic illnesses Risk: Moderate: Drug management Medical Decision Making Level: 4 - Moderate documented in this encounterPremier Health [facility] Center10-19-2023 History of Present illness Narrative* Emi Sage Ma - 12/14/2022 9:39 AM EDT PT ASSESSMENT - CASTING ROOM Romain presents for Application of brace. Applied modabber wrist brace to Right wrist Patient has been instructed in Care and proper application of brace. Emi Sage Ma * Dwight Tobar MD - 12/14/2022 8:54 AM EDT Dwight Tobar MD Department of Orthopaedics Orthopaedics [address] [place] [id number] Dept: [phone] Dept December 14, 2022 CHIEF COMPLAINT: Established Patient and Pain of the Right Wrist and Last seen 08/09/20 Left ankle sprain HPI Patient here for evaluation right wrist pain. Patient states she slipped on water in her kitchen on11/04/22 and her wrist hit the doorknob on the door. She lives in an old house that was a glass knob.Patient is having pain on the lateral aspect that can radiate around to her palm. Patient is right hand dominant. Uses left hand to ambulate with her cane. Taking Tylenol for the pain and does help. X-rays done at [facility] ED and are uploaded into deltaDNA. She was given and ruth wrap to wear on her wrist but felt it didn't help. New x-rays done today. ASSESSMENT: M25.531 Right wrist pain (primary encounter diagnosis) M18.11 Primary osteoarthritis of first carpometacarpal joint of right hand PLAN: Overall, her wrist is feeling a little bit better. 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 Tenderness over the ulnar fossa, cortisone injection down the line if she needs/wishes. My recommendation is for some bracing and a topical anti- inflammatory. We can at a later date to [...] joint. No fracture or radiopaque foreign body. Apparel Patternmaker: PSCB Transcribe Date/Time: Dec 17 2022 12:03P [...] application to affected area once daily as neededfor dry skin (arms). albuterol HFA (PROVENTIL HFA, [...] Take by mouth as directed until finished. (Patientnot taking: Reported on 12/14/2022) cyclobenzaprine HCl (FLEXERIL [...] (see HPI) Psych (no depression, anxiety) Dwight Tobar MD documented in this encounterPremier Health Upper Valley Medical Center09-30-2023 History of Present illness Narrative* Katie Canas APRN.[facility] - 11/25/2022 2:45 PM EDT Images from the original note were not included. Subjective Came in with complaints of right eye irritation and drainage. Patient says she had the same thing back in mid summer. Patient said she had erythromycin ointment and went away. Patient has not seen aneye doctor in many years. Patient denies any vision changes. The history is provided by the patient. No customer advocacy manager was used. Review of Systems Constitutional: Negative. [...] application to affected area once daily as neededfor dry skin (arms). albuterol HFA (PROVENTIL HFA, [...] Diabetes Father Ischemic Heart Disease Father d. [place] Ischemic Heart Disease Maternal Grandfather d. [place] while holding her at 4mo Blindness Brother [...] Patient was okay with this care plan. Katie Missael, COMPUTER NETWORK ENGINEER.PAPER CARRIER documented in this encounterPremier Health Upper Valley Medical Center09-21-2023 Instructions* Patient Instructions* Erasmo Walter APRN.CNP - 11/16/2022 4:54 PM EDT Fact Sheet for Patients And Caregivers Emergency Use Authorization (EUA) Of LAGEVRIO (molnupiravir) capsules For Coronavirus Disease 2019 (COVID-19) What is the most important information I should know about LAGEVRIO? LAGEVRIO may cause serious side effects, including: LAGEVRIO may cause harm to your unborn baby. It is not known if LAGEVRIO will harm your baby if youtake LAGEVRIO during . LAGEVRIO is not recommended for use in . LAGEVRIO has not been studied in . LAGEVRIO was studied in animals only. When LAGEVRIO was given to animals, LAGEVRIO caused harm to their unborn babies. You and your healthcare provider may decide that you should take LAGEVRIO during if thereare no other COVID-19 treatment options approved or [...] method of control (contraception) consistently and correctly duringtreatment with LAGEVRIO and for 4 days after the last dose of LAGEVRIO. Talk to your healthcare provider about reliable control methods. Before starting treatment with LAGEVRIO your healthcare provider may do a test to see if you are before starting treatment with LAGEVRIO. Tell your healthcare provider right away if you become or think you may be duringtreatment with LAGEVRIO. Registry: There is a registry for individuals who take LAGEVRIO during . The purpose of this program is to collect information about the health of you and your baby. If you are or become during treatment with LAGEVRIO, you are encouraged to reportyour use of LAGEVRIO during to this registry at https://covid-pr.BIME Analytics.XPlace or . For individuals who are sexually active with partners who are able to become : It is not known if LAGEVRIO can affect sperm. While the risk is regarded as low, animal studies to fully assess the potential for LAGEVRIO to affect the babies of males treated with LAGEVRIO have notbeen completed. A reliable method of control (contraception) [...] COVID-19 treatment options approved or authorized by theFDA are not accessible or clinically appropriate. The U.S. Food and Drug Administration (FDA) has issued an Emergency Use Authorization (EUA) to makeLAGEVRIO available during the COVID-19 pandemic (for more details about an EUA please see What is an Emergency Use Authorization? at the end of this document). LAGEVRIO is not an FDA-approved medicine in the [place]. Read this Fact Sheet for information about LAGEVRIO. Talk to your healthcareprovider about your options if you have any questions. It is your choice to take LAGEVRIO. What is COVID-19? COVID-19 is caused by a virus called a coronavirus. You can get COVID-19 through close contact withanother person who has the virus. COVID-19 illnesses have ranged from very bpvr-kg-avpkhm, including illness resulting in . While information so far suggests that most COVID-19 illness is mild, serious illness can happen and maycause some of your other medical conditions to [...] use of LAGEVRIO for the treatment of mild- tomoderate COVID-19 in adults under an EUA. For [...] serious illnesses Take any medicines including prescription, fofe-pve-lratzsg medicines, vitamins, and herbal products. How do [...] NG or OG that is size 12 Yi (FR) or larger. If you miss a dose of LAGEVRIO: If it has been less than 10 hours since the missed dose, take it as soon as you remember. If it has been more than 10 hours since the missed dose, skip the missed dose and take your dose atthe next scheduled time. Do not double the [...] tell you what size catheter tip syringe youwill need to take or give a dose of LAGEVRIO. Place the needed supplies on a clean work surface. Follow your healthcare provider s instructions on how to flush the NG or OG feeding tube. Flush theNG or OG feeding tube with 5 mL [...] contents and water well for 3 minutes. Thecapsule contents may not dissolve completely. Remove the [...] any capsule contents left in the container orcatheter tip syringe. Use the same catheter tip syringe to flush the NG or OG feeding tube 2 times with 5 mL of water (10mL total). Rinse the container, lid and catheter tip syringe well with clean water after use. Place on a cleanpaper towel until next use. What are the [...] to treat people with COVID-19. Go to https://www.fda.gov/keyygtuhs-cnabjjeydset-pfy-response/aom-hekemtgsilkqgwu-plq- policy-framework/mzfrbruqb-gfr-ykozfdhsewpsu for more information. It is your choice [...] to FDA MedWatch at www.fda.gov/medwatch or call 2-615-DYJ-6984 (1251.542.9494). How should I store LAGEVRIO? Store LAGEVRIO capsules at room temperature between 68 F to 77 F (20 C to 25 C). Keep LAGEVRIO and all medicines out of the reach of children. How can I learn more about COVID-19? Ask your healthcare provider. Visit www.cdc.gov/COVID19 Contact your local or state public health department. Call [employer] at (toll free in the U.S.) Visit www.Tytanium Ideas What Is an Emergency Use Authorization (EUA)? The [place] FDA has made LAGEVRIO available under an emergency access mechanism called an Emergency Use Authorization (EUA) The EUA is supported by a [place] of Health and Human Service ([facility])declaration that circumstances exist to justify emergency use of drugs and biological products during the COVID-19 pandemic. LAGEVRIO for the treatment of adults with a current diagnosis of iqsf-ev-copkfloq COVID-19 who are at high risk for progression to severe COVID- 19, including hospitalization or , and for whom [...] evidence available including data from adequate and well-controlledclinical trials, if available, it is reasonable to [...] no longer be used under the EUA). for: [employer] [place] [address], [place] For patent information: www.Aethon/research/patent Copyright [employer] [place], [place], [facility] and its affiliates. All rights reserved. [id number] Revised: March 2022 documented in this encounterPremier Health [facility] Valley [facility] Center09-21-2023 History of Present illness Narrative* Erasmo Walter APRN.PRIMO - 11/16/2022 4:46 PM EDT Subjective HPI HPI Romain Bailey is a 72 year old female who presents today for CC of cough, congestion, fever. This started 3 days ago. Has tried otc medication for relief. Symptoms are worsened by nothing. Riskfactors recent sick exposures. Hx of asthma. .Patient [...] Take 1 tablet by mouth once daily. DWMJPBIW-FMQXPGNDI-LIAYITCN 3.5 MG/ML-10,000 UNIT/ML-0.1% EYE DROPS 1 drop [...] application to affected area once daily as neededfor dry skin (arms). albuterol HFA (PROVENTIL HFA, [...] fall Diabetes Father Ischemic Heart Disease Father carolyn ZAIDI Ischemic Heart Disease Maternal Grandfather carolyn ZAIDI [...] 4 MG TABLETS IN A DOSE PACK Erasmo Walter APRN.PAPER CARRIER documented in this encounterPremier Health [facility] Valley [facility] Center07-13-2023 History of Present illness Narrative* Paul Win APRN.CNP - 09/07/2022 9:57 AM EDT Subjective HPI Nontoxic-appearing female presents urgent care chief complaint right eye redness and drainage. Duration of symptoms 1 day. Associated symptoms right eye redness drainage discomfort. Patient states for started on her right upper lid yesterday. Redness and drainage has spread to right lower lid. It is painful if she presses around her eyelids. Some swelling. Has not used any OTC medications. Statesshe does have a history of insufficient drainage [...] Take 1 tablet by mouth once daily. YGTMZOFR-WQLIDMBTX-PGORJLIU 3.5 MG/ML-10,000 UNIT/ML-0.1% EYE DROPS 1 drop [...] application to affected area once daily as neededfor dry skin (arms). atorvastatin (LIPITOR) 40 mg [...] Diabetes Father Ischemic Heart Disease Father d. [place] Ischemic Heart Disease Maternal Grandfather d. [place] while holding her at 4mo Blindness Brother [...] patient's clinical presentation is otherwise unremarkable at thistime. Based on exam and clinical finding, the patient is stable for discharge. Plan of care was disc ussed with patient. Patient verbalizes understanding and agrees to plan of care. This note was generated using [employer] software. It may contain errors in wording, punctuation, or spelling. Paul Win APRN.PAPER CARRIER documented in this encounterPremier Health [facility] Valley [facility] Center06-15-2023 History of Present illness Narrative* Francesca Peñaloza PA-C - 08/10/2022 10:20 AM EDT Images from the original note were not included. Francesca Peñaloza PA-C [facility] [address] [place] [address] 08/10/2022 ASSESSMENT AND PLAN: Assessment : Encounter [...] to standing and leans heavily on a quadcane in her left hand She has difficulty standing up straight and gait strongly favors the left foot and the right knee There are multiple strength deficits as noted below She is areflexic at the Achilles but has normal patellar reflexes Voluntary sitting SLR is negative bilaterally Fairly severe pain on palpation over bilateral sacroiliac regions IMAGING: We reviewed her [facility] radiology record, but did not find any studies pertinent to the lumbarregion. SUMMARY/PLAN: I would like her to obtain [...] adjustment that she makes in her gait asa result of her other issues. Plan : [...] today with this patient visit. This includes aiqf-ob-wlps time, review of chart records regarding conservative care history, spine- pertinent imaging, and communication/care coordination with referring provider, problem-specific history-taking and counseling/education regarding treatment options. cc: Faith Mullins [address] [facility] [id number] Results of consultation to be transmitted via electronic medical record for those providers who practice within [facility] or with access to deltaDNA via MD Connect, or via letter. ######################################################################## CHIEF COMPLAINT: Patient is here for the lower back pain. Pain started about a year ago. Pain is constant. Level of the pain is at 7/10. Sometimes will have sciatica pain in the both legs. 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 This was completed about 2months ago. The therapy provided a notable amount [...] application to affected area once daily as neededfor dry skin (arms). 225 g 5 atorvastatin [...] needed for wheezing/shortness of breath. Use over 5- 15minutes. 90 mL 3 apixaban (ELIQUIS) 5 mg [...] HOME USE. DX: J45.20 1 Device 0 CZNGJZEM-VDAQVPWDG-SXQOUUWP 3.5 MG/ML-10,000 UNIT/ML-0.1% EYE DROPS 1 drop [...] (Rosins), Bactrim Ds [Sulfamethoxazole-Trimethoprim], Bee Sting, Darvon [PropoxypheneHcl], Influenza Virus Vaccines, and Prednisone PAST MEDICAL [...] Diabetes Father Ischemic Heart Disease Father d. [place] Ischemic Heart Disease Maternal Grandfather d. [place] while holding her at 4mo Blindness Brother [...] Hematologic: (-) Prolonged Bleeding (+) Easy Bruising ################################################################################ ################################################# PHYSICAL EXAM: Blood pressure 108/50, pulse (!) 56, height 167.6 cm (5' 6), weight 93.4 kg (206 lb), SpO2 95 [...] patient had good eye contact and rapport waseasy to establish. The patient appeared to be [...] STUDIES: See discussion above documented in this encounterPremier Health [facility] Valley [facility] Center05-05-2023 History of Present illness Narrative* Fatemeh Rogers MD - 06/30/2022 9:20 AM EDT This note was created using f4samurairiter. Subjective Romain Bailey is a 72 year [...] with patient, and I recommended no further interventionat this time. PAST MEDICAL HISTORY Diagnosis Date Arthropathy, unspecified, site unspecified Asthma Back pain Calculus of kidney 05/09/2018 Colon polyps 2013 Diverticulitis 2000 Environmental allergies GERD (gastroesophageal reflux disease) Hyperlipidemia lifestyle controlled Hypertension IBS (irritable bowel syndrome) Migraine Obesity Pseudophakia 12/2021 both Current Outpatient Medications Medication Sig EIVVOTED-OHLUBMZHD-VJZIFVIH 3.5 MG/ML-10,000 UNIT/ML-0.1% EYE DROPS 1 drop [...] application to affected area once daily as neededfor dry skin (arms). atorvastatin (LIPITOR) 40 mg [...] Diabetes Father Ischemic Heart Disease Father d. [place] Ischemic Heart Disease Maternal Grandfather d. [place] while holding her at 4mo Blindness Brother Heart Attack Brother Social History Tobacco Use Smoking status: Never Smokeless tobacco: Never Vaping Use Vaping Use: Never used Substance Use Topics Alcohol use: No Drug use: No Review of Systems Objective BP 122/64 Pulse 72 Temp 36.8 C (98.2 F) Resp 18 Ht 163 cm (5' 4.17) Wt 95.3 kg (210 lb) SpO2 96% [...] as of this encounter: 163 cm (5' 4.17). Weight as of this encounter: 95.3 kg [...] second booster dose of COVID-19 vaccine Z23 [employer] COVID-19 BIVALENT VACCINE, AGE 12+ YR 6. [...] lifestyle changes for effective weight loss as wellas prevention of DM, and control of BP and lipids. Was not able to be as active due to sacroiliitis. Does follow portion control. Fatemeh Rogers MD documented in this encounterPremier Health Upper Valley [facility] Center04-12-2023 History of Present illness Narrative* Kristine Simmons, PT - 06/07/2022 12:51 PM EDT Episode Visit Count: 5 Therapist That Will [...] benefit from ongoing skilled physical therapy to progresstoward set goals. PLAN FOR NEXT VISIT: Continue core stabilization strengthening, manual txn SUBJECTIVE: Patient Reason for Visit: Pt. reports much increased soreness from doing a lot of housework. She is excited that her fiance is [...] with an (*). Patient education as noted. Self-Intermediate Management: 1: *discussed activity modification Skilled Intervention: [...] 40 Kristine Simmons PT documented in this encounterPremier Health Upper Valley [facility] Center03-31-2023 History of Present illness Narrative* Fam Muniz, PT - 05/26/2022 9:39 AM EDT Episode Visit Count: 3 Therapist That Will [...] deviations identified in the objective section above. Self-Intermediate Management: 1: *education on elevating LE when doing dishes or porlonged standing Skilled Intervention: Skilled judgment in the selection of proper modification for activity of daily living/home management based on clinical presentation, deficits, and needs. Billing Therapeutic Exercise Treatment Minutes: 29 Self-Care/Home Management Treatment Minutes: 3 Gait Training Treatment Minutes: 8 Total Treatment Time Minutes (timed/untimed): 40 PB Carias PT documented in this encounterPremier Health Upper Valley Medical Center03-28-2023 Miscellaneous Notes* Telephone Encounter - Emi Shaikh Pss - 05/23/2022 4:35 PM EDT I left the patient a voice message to call the office to reschedule an appointment. The patient was scheduled with a neurologist on 05/29/22. The patient was referred to spine medicine for Sacroiliitis. If the patient calls, please cancel the 05/29/22 appointment. The patient needs to schedule spine medicine. documented in this [facility]03-21-2023 Instructions* Patient Instructions* Nadya Perry MD - 05/16/2022 10:38 AM [...] , sooner if issues documented in this encounterPremier Health Upper Valley [facility] Center03-21-2023 History of Present illness Narrative* Nadya Perry MD - 05/16/2022 10:00 AM EDT Patient states her right eye has been watering x years and her eye doctor tried to open her tear duct but could not and advised her to see Dr. Perry. Patient states her vision is fine at distance and near just wants to see what can be done about theright eye tearing all the time. No ocular [...] check tearing Velia , sooner if issues The documentation for [...] and plan as stated above and agree withall of its relevant components. I, Nadya Perry [...] 16, 2022 10:36 AM. documented in this encounterKristine [place]ille [address]-15-2023 History of Present illness Narrative* Kristine Simmons, PT - 05/10/2022 9:06 AM EDT Episode Visit Count: 2 Therapist That Will Accept/Oversee The Plan Of Care: Kristine Troy Start of Care Date: 04/14/22 Onset Date: [...] minutes without pain/symptoms. -- PROGRESSING, reports amb 8- 10 minutes, difficulty with prolonged standing at sink [...] Patient to be seen for Therapeutic exercise (93904), Neuromuscular re-education (22937), Manual therapy (56319), Therapeutic activities (73302), Self-correction management (81723), Gait Training (89421), Patient/Family/Caregiver Education, Body Mechanics Training PLAN FOR [...] exercises in regards to decreasing fatigue , includingbalance, increase ease of ADL, and ROM and function . Patient education as noted. Self-Intermediate Management: 1: *lumbar towel roll education 2: [...] 40 Kristine Simmons PT documented in this encounterPremier Health Upper Valley [facility] Center02-14-2023 Instructions* Patient Instructions* Faith Mullins APRN.FINANCIAL SALES CONSULTANT - 04/11/2022 10:53 AM EST Take Toradol jzqvip-flu-miuqx for the next 5 days. Take with food. Continue with pantoprazole unchanged. Add famotidine for the next 2 weeks to protect your stomach while taking the Toradol. Go to the emergency department for any severe or concerning symptoms documented in this encounterPremier Health Upper Valley Medical Center02-14-2023 History of Present illness Narrative* Faith Mullins APRN.CNS - 04/11/2022 10:20 AM EST SUBJECTIVE: SPIROMETRY Never done SHINGRIX VACCINE(1 of [...] Since last here had GIB, colitis at [facility] 09/15/2021. Seen by Dr Cowan 11/2021 in office. Colonoscopy end of October. Fibroscan recommended, then follow up recommended. Presents at [facility] to establish care. She reports losing her job and pandemic and getting behind intermittent. Notes her current landlordis trying to evict her. She reports she [...] Stopped amiodarone recently after wearing a monitor. [facility] Dr. Damico TTAsuncion 10/2021. Asthma: chronic shortness of breath on exertion primarily; stable. Chronic right knee pain, sees Dr Tobar. Clogged tear duct right eye. Cataract surgery planned then doctor to address [facility]. She presents today for emergency department follow-up visit. She was seen at [facility] emergency department January 06, 2022 with report [...] ED but she preferred visit. Seen at UC: yes Treatment: cyclobenzaprine At [facility]. Today reports did not go to ER. [...] application to affected area once daily as neededfor dry skin (arms).^Disp: 225 g^Rfl: 5 atorvastatin (LIPITOR) 40 mg tablet^Take 1 tablet by mouth once daily.^Disp: 90 tablet^Rfl: 3 verapamil SR (CALAN SR, ISOPTIN SR) 240 mg CR tablet^Take 1 tablet by mouth daily at bedtime.^Disp:90 tablet^Rfl: [address] (PROTONIX) 20 mg [...] needed for wheezing/shortness of breath. Use over 5- 15minutes.^Disp: 90 mL^Rfl: 3 apixaban (ELIQUIS) 5 mg [...] mouth every 6 hours as needed (dizziness).^Disp: 90tablet^Rfl: 0 fluticasone (FLONASE) 50 mcg/actuation nasal spray^Use 2 Sprays in each nostril once daily.^Disp: 3Bottle^Rfl: 3 benzonatate (TESSALON PERLES) 100 mg capsule^Take [...] 6 hours as needed for pain (Take withfood.) for up to 5 days.^Disp: 20 tablet^Rfl: 0 famotidine (PEPCID) 20 mg tablet^Take 1 tablet by mouth at bedtime as needed.^Disp: 15 tablet^Rfl: 0 diclofenac sodium (VOLTAREN) 1 % topical gel^Apply 2 g to affected area four times daily.^Disp: 400g^Rfl: 2 PAST MEDICAL HISTORY Diagnosis Date Arthropathy, [...] go to urgent care off-site and was givenFlexeril which she has noted helped somewhat. She [...] Fatemeh Rogers MD with labs Faith Mullins APRN.FINANCIAL SALES CONSULTANT Medical Decision Making: Problems: Moderate: 1+ chronic illnesses with change Risk: Moderate: Drug management Medical Decision Making Level: 4 - Moderate documented in this encounterPremier Health [facility] Center02-12-2023 History of Present illness Narrative* Rosa Isela Galarza MD - 04/09/2022 9:54 AM EST Virtualist Progress Note Triage Call Romain Bailey has consented to this telephone encounter. Persons Present: patient and NOC Triage source: Triage Call (Nurse Patient Care Technician Instructor, [facility] Triage, [facility] Phone Triage) Was patient downgraded (i.e. disposition other than go to the ED was advised)? Yes Mode of contact (phone call, [facility], [place], [facility], [facility], other): phone History/Physical Exam: 72 yo female reports left back pain radiating to posterior thigh. PMH sciatica with left or both sided pain. No bladder symptoms. Hx constipation, took dulcolax and soft stool yesterday. Pain rated 9/10. Nurse Triage Disposition (If call is from Home Care, [facility] nurse triage, or an Express Care, the disposition is Go to ED Now): Go to ED Now Virtualist Recommended Disposition: See Provider within 24 hours She prefers UC over ED. Signed in as Primary Virtualist, Secondary Virtualist, or [facility] Telehealth provider: Secondary SIGNATURE: Rosa Isela Galarza MD PATIENT NAME: Romain Bailey DATE: April 09, 2022 documented in this encounterPremier Health Upper Valley [facility] Center02-01-2023 History of Present illness Narrative* Rachana Oakley MA - 03/29/2022 3:00 PM EST POPULATION HEALTH NAVIGATION OUTREACH Action/FYI Unable to [...] visits Payer: Payor: HU[employer]NA MEDICARE / Plan: HU[employer]NA GOLD PLUS / Product Type: HMO / Care Gap Reviewed:: Breast Cancer screening Reminder: Reminder note to check Health Maintenance for items below Health Maintenance items due: SPIROMETRY Never done SHINGRIX VACCINE(1 of 2) Never done MAMMOGRAM due on 06/26/2017 ADVANCE DIRECTIVE DISCUSSION due on 02/26/2022 DEPRESSION ASSESSMENT due on 02/26/2022 Navigation Signature: Rachana Oakley MA March 29, 2022 3:00 PM documented in this encounterPremier Health Upper Valley Medical Center12-15-2022 Miscellaneous Notes* Telephone Encounter - Rashmi Horan LPN - 02/09/2022 11:38 AM EST Called pt with a quick busy signal. My chart message to pt. * Telephone Encounter - Fatemeh Rogers MD - 02/08/2022 6:01 PM EST Printed * Telephone Encounter - Neha Mary Ma - 02/08/2022 1:32 PM EST Spoke to patient, she is okay with letter for emotional support animals. 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 Would that be adequate? * Telephone Encounter - Shameka Verma LPN - 02/07/2022 9:09 AM EST Pt states she is being forced to move from her home by the end of the month. Pt states she has a dog & cat that provide comfort for her, pt states she can not give them up. Pt is asking for a letter stating her pets are therapy pets. Please advise. Shameka Verma LPN documented in this encounterPremier Health Upper Valley Medical Center11-29-2022 History of Present illness Narrative* Makenna Bishop - 01/24/2022 10:10 AM EST POPULATION HEALTH NAVIGATION OUTREACH Action/FYI Patient responded to [employer] and declined scheduling at this time Pt identified by name and : YES, via [employer] Outreach Outcome/Action Spoke to patient or caregiver: Patient declined Navigation Signature: Makenna Bishop January 24, 2022 10:10 AM * Makenna Bishop - 01/24/2022 9:18 AM EST POPULATION HEALTH NAVIGATION OUTREACH Action/LUIS quinn Patient due for the following: Mammogram - ordered on 08/24/2021 Unable to contact patient by phone, No answer [employer] message sent Pt identified by name and : NO Outreach Outcome/Action Unable to reach patient: no answer [employer] message sent Did you use a PCP flex slot to schedule this appointment? N/A Reason for Outreach Care Gap or Scheduling/Wellness visits Payer: Payor: HUMANA MEDICARE / Plan: [employer] / Product Type: HMO / Care Gap Reviewed:: Breast Cancer screening Reminder: Reminder note to check Health Maintenance for items below Health Maintenance items due: SPIROMETRY Never done MAMMOGRAM due on 06/26/2017 Message Sent to Practice: No Navigation Signature: Makenna Bishop January 24, 2022 9:18 AM documented in this encounterPremier Health Upper Valley [facility] Center11-15-2022 History of Present illness Narrative* Faith Mullins APRN.FINANCIAL SALES CONSULTANT - 01/10/2022 10:24 AM EST SUBJECTIVE: SPIROMETRY Never done MAMMOGRAM due on 06/26/2017 MARIO Bailey is a 71 year old female. [...] Since last here had GIB, colitis at [facility] 09/15/2021. Seen by Dr Cowan 11/2021 in office. Colonoscopy end of October. Fibroscan recommended, then follow up recommended. Presents at [facility] to establish care. She reports losing her job and pandemic and getting behind intermittent. Notes her current landlordis trying to evict her. She reports she [...] Stopped amiodarone recently after wearing a monitor. [facility] Dr. Damico TTE 10/2021. Asthma: chronic shortness of breath on exertion primarily; stable. Chronic right knee pain, sees Dr Tobar. Clogged tear duct right eye. Cataract surgery planned then doctor to address [facility]. She presents today for emergency department follow-up visit. She was seen at [facility] emergency department January 06, 2022 with report [...] application to affected area once daily as neededfor dry skin (arms). atorvastatin (LIPITOR) 40 mg [...] TABLETS IN A DOSE PACK Faith Mullins APRN.FINANCIAL SALES CONSULTANT 6 mo follow up Fatemeh Rogers MD with labs Faith Mullins APRN.CNS Medical Decision Making: Problems: Moderate: New problem with uncertain prognosis Risk: Moderate: Drug management Medical Decision Making Level: 4 - Moderate documented in this encounterPremier Health Upper Valley Medical Center11-11-2022 Miscellaneous Notes* Telephone Encounter - Basilio Crouch APRN.CNP - 01/06/2022 8:52 AM EST Noted, agree with her needing evaluation with those symptoms. * Telephone Encounter - Liz Cisneros RN - 01/06/2022 8:16 AM EST Patient calls to report that she has been having tailbone pain that is bothersome when she sits butthis morning patient rates it a 8-9/10 and this morning when she moved she felt an odd sensation that moved up her tailbone and buttocks and now she is having difficulty ambulating. Recommended ED for evaluation given the amount of pain and difficulty ambulating. Patient reports she doesn't have anyone to assist her to ED so patient will call ambulance for transport. Liz Cisneros RN documented in this encounterPremier Health Upper Valley Medical Center11-01-2022 Miscellaneous Notes* Telephone Encounter - LAURENCE Dixon - 12/27/2021 12:09 PM EDT Sw spoke with patient and let her know information below. Patient notes that she will go to [employer] [place] tomorrow morning and see what is going on with status of rent assistance application. Patient is aware that she can reach out to for any future needs. * Telephone Encounter - LAURENCE Dixon - 12/27/2021 9:14 AM EDT Sw received message from patient that she called [employer] and left another message for [facility]. Patient notes that she would appreciate any assistance with SW reaching out to [facility] in regardsto back rent assistance. Sw will reach out to [facility] at [facility] and see what she has to say about patient application. Lulu spoke with [facility] and was told patient would need to apply to rent assistance program now this month. Patient will need to bring in income information and can go down to [facility] office today or tomorrow from 8-3:30. [facility] not able to go in to any detail regarding patient past applications. Sw called patient to let her know about going to [facility] office to apply now for assistance today or tomorrow from 8-3:30. No answer and patient vmail is full. Sw will try call again later. * Telephone Encounter - LAURENCE Dixon - 12/23/2021 9:32 AM EDT Sw spoke with patient in regards to housing issues. Patient reports that she applied to [facility] [employer] for help with back rent. Patient reports that she also receives [employer]. Patient notes that she has not hear anymore from landlords in regards to if they will be evicting her. Patient reports that she keeps calling [facility] to see what status is for back rent.She has not heard back from [facility]. Sw notes that if patient can try beginning of next week to contact [facility] and see if she receives response. If patient does not receive response, Lulu will call on Sunday to see if [facility] will make call to patient to update. Patient noted that she would appreciate assistance with contacting [facility]. Patient will call Lulu back Sunday morning to let he know if able to connect with [facility]. documented in this encounterPremier Health Upper Valley Medical Center10-27-2022 Instructions* Patient Instructions* Faith Mullins APRN.TONI - 12/22/2021 2:37 PM EDT Check to see if your insurance covers shingles vaccine and what location to get the vaccine -usually best covered at your local pharmacy where you get prescriptions filled documented in this encounterPremier Health Upper Valley Medical Center10-27-2022 History of Present illness Narrative* Faith Mullins APRN.FINANCIAL SALES CONSULTANT - 12/22/2021 2:00 PM EDT SUBJECTIVE: SPIROMETRY Never done BP CONTROLLED (<130/80) [...] Since last here had GIB, colitis at [facility] 09/15/2021. Seen by Dr Cowan 11/2021 in office. Colonoscopy end of October. Fibroscan recommended, then follow up recommended. Presents at [facility] to establish care. She reports losing her job and pandemic and getting behind intermittent. Notes her current landlordis trying to evict her. She reports she [...] Stopped amiodarone recently after wearing a monitor. [facility] Dr. Damico TTE 10/2021. Asthma: chronic shortness of breath on exertion primarily; stable. Chronic right knee pain, sees Dr Tobar. Clogged tear duct right eye. Cataract surgery planned then doctor to address [facility]. Review of Systems Constitutional: Negative. [...] of kidney 05/09/2018 Colon polyps 2014 Diverticulitis 2001 Environmental allergies GERD (gastroesophageal reflux disease) Hyperlipidemia [...] ICD9: 375.56, ICD10: H04.551 Currently working with [facility], will let us know if wanting to be seen at [facility] - CONSULT TO OPHTHALMOLOGY 5. Financial [...] 530.81, ICD10: K21.[address] Cowan [facility] - PANTOPRAZOLE 20 MG TABLET,DELAYED RELEASE [...] Fatemeh Rogers MD with labs Faith Mullins APRN.FINANCIAL SALES CONSULTANT Medical Decision Making: Problems: Moderate: 2+ stable chronic illnesses Data: Unique test(s) ordered: 3+ Risk: Moderate: Drug management Medical Decision Making Level: 4 - Moderate documented in this encounterPremier Health Upper Valley [facility] Center09-26-2022 Miscellaneous Notes* Telephone Encounter - Silvia Menard LPN - 11/21/2021 10:44 AM EDT Received 11/18/2021 from [facility]. Placed in provider's inbox for review. Route to [place] for scanning documented in this encounterPremier Health Upper Valley Medical Center09-26-2022 Miscellaneous Notes* Telephone Encounter - Silvia Menard LPN - 11/21/2021 10:28 AM EDT Received 11/18/2021 from [facility]. Placed in provider's inbox for review. Route to [place] for scanning. documented in this encounterPremier Health Upper Valley Medical Center08-18-2022 Miscellaneous Notes* Telephone Encounter - Felicity Snow PA-C - 10/13/2021 3:26 PM EDT I called and discussed the ultrasound with the patient. There was a superficial phlebitis and I didmake her aware. Recommended warm compresses. She is already on Eliquis. Follow-up with primary care. Patient agreeable with plan. documented in this encounterPremier Health Upper Valley Medical Center08-18-2022 History of Present illness Narrative* Kristine Lewis RDMS - 10/13/2021 11:30 AM EDT Radiology Service Progress Note PATIENT NAME: Romain Bailey DATE OF SERVICE: October 13, 2021 TIME: 12:01 PM PATIENT IDENTITY VERIFICATION COMPLETED USING TWO (2) IDENTIFIERS: Name and Date of confirmedby patient verbally. FALL SCREENING: Has the patient had 2 falls in the last year or 1 fall with injury or currently using an Ambulatory Assistive Device (Walker, Cane, Wheelchair, Crutches, etc.)? Yes, Patient High Riskfor Falls What interventions were put in place to prevent falls during this visit? Instructed Patient to Callfor Help if Needed, Offered Assistance with Transfers/Clothing, Instructed Patient to Remain Seated(Not on Exam Table) Until Exam, and Increased Observations by Caregivers PATIENT GENDER DATA: Female. status: Unknown status: NO. PATIENT RELEVANT IMPLANT DATA REVIEWED: Not Applicable RADIOLOGY DEPARTMENT: Ultrasound PERIPHERAL IV DATA: Not applicable SIGNED BY: Kristine Lewis RDMS RVT October 13, 2021 12:01 PM documented in this encounterPremier Health Upper Valley Medical Center08-16-2022 Instructions* Patient Instructions* Kristine Augustin APRN.CNP - 10/11/2021 11:33 AM EDT R.I.C.E. The [...] thin washcloth between the bag and your skin.Apply the ice bag to the area for at least 20 minutes. Do this at least 4 times per day. Using the ice for longer times and more frequently is OK. NEVER APPLY ICE DIRECTLY TO THE SKIN. COMPRESS: Compression means to apply pressure around the injured area such as with a splint, cast or an ruth bandage. Compression decreases swelling and improves comfort. [...] pillows when lying down. documented in this encounterPremier Health Upper Valley Medical Center08-16-2022 History of Present illness Narrative* Kristine Augustin APRN.CNP - 10/11/2021 11:00 AM EDT This note was created using NoteWriter. Subjective Romain Bailey is a 71 year [...] history is provided by the patient. No customer advocacy manager was used. Musculoskeletal Problem This is a [...] fall Diabetes Father Ischemic Heart Disease Father carolyn ZAIDI Ischemic Heart Disease Maternal Grandfather carolyn ZAIDI [...] trauma or injury. Denies LOC Kristine Augustin APRN.PAPER CARRIER documented in this encounterCleveland [phone] Miscellaneous Notes* Telephone Encounter - Silvia Menard LPN - 09/16/2021 10:56 AM EDT Received 09/16/2021 from [facility]. Placed in provider's inbox for review. Route to [place] for scanning Ct abdomen and pelvis without contrast Findings consistent with non specific colitis involving predominately the transverse descending andrectosigmoid segments without inflammatory stranding in the fat at this time. There is slightly hyperalttenuated density within the cecum of uncertain significance possibly due to recently ingested material. Intraluminal hemorrhage not entirely excluded documented in this encounterPremier Health Upper Valley Medical Center07-22-2022 Miscellaneous Notes* Telephone Encounter - Silvia Menard LPN - 09/16/2021 10:48 AM EDT Received 09/16/2021 from [facility]. Placed in provider's inbox for review. Route to [place] for scanning Emergency room summary GI bleed Acute lower gastrointestinal bleeding. Anticoagulated Colitis Discharge [facility] documented in this encounterPremier Health Upper Valley Medical Center07-12-2022 Miscellaneous Notes* Telephone Encounter - Estephanie Navas - 09/06/2021 1:55 PM EDT Received echo from [facility]. Placed in provider's inbox for review. Route to [place] scanning. documented in this encounterPremier Health Upper Valley Medical Center07-11-2022 Miscellaneous Notes* Telephone Encounter - Estephanie Navas - 09/05/2021 1:07 PM EDT Prescription request pended to be sent to [facility]. documented in this encounterPremier Health Upper Valley Medical Center07-07-2022 Miscellaneous Notes* Telephone Encounter - Anne-Marie Goodman MA - 09/01/2021 11:11 AM EDT Last appointment: 08-12-21 Next appointment: 12-30-21 Pharmacy verified in [facility]. Refill(s) requested: Pending Prescriptions Disp Refills ALBUTEROL SULFATE HFA 90 MCG/ACTUATION AEROSOL INHALER 18 g 0 Sig: Inhale 2 Puffs as instructed every 6 hours as needed. KIKO: No Order(s) pended. Please advise. Anne-Marie Goodman MA, PLANNING MANAGER documented in this encounterPremier Health Upper Valley Medical Center06-20-2022 History of Present illness Narrative* Priscila Contreras PA-C - 08/15/2021 8:31 AM EDT 08/15/2021 Patient presents with: Eye Problem Right [...] kg (210 lb 9.6 oz) SpO2 96% BMI34.01 kg/m APPEARANCE Well appearing, alert, in no acute distress, well-hydrated, well nourished. EYES PERRLA, conjunctiva and sclera normal. + mild erythema, edema of the right medial canthus withedema extending inferior orbital area. Mild TTP. EOMs [...] plan. Priscila Contreras PA-C documented in this encounterPremier Health Upper Valley Medical Center06-17-2022 History of Present illness Narrative* Erik Reynolds MD - 08/12/2021 9:24 AM EDT Exerpt from article about Medicare criteria for [...] for a seat lift. Erik Reynolds MD * Erik Reynolds MD - 08/12/2021 9:20 AM EDT CHIEF COMPLAINT Patient presents with: Follow Up: [...] and hyperlipidemia. Patient is currently following a can doffer. Health Maintenance Due for spirometry. Due for [...] of kidney 05/09/2018 Colon polyps 2014 Diverticulitis 2001 Environmental allergies GERD (gastroesophageal reflux disease) Hyperlipidemia lifestyle controlled Hypertension IBS (irritable bowel syndrome) Migraine Obesity PHYSICAL EXAMINATION BP 150/59 Pulse 63 Ht 167.6 cm (5' 5.98) Wt 94.8 kg (209 lb 1.6 oz) BMI 33.77 kg/m Repeat BP: 130/72 General: Alert, well developed, well nourished, no distress, pleasant and cooperative. Obese. [place], has L ankle brace on . She [...] Attestation: By signing my name below, I, Marlen Philip, attest that this documentation has been prepared under the direction and in the presence of Paul Reynolds M.D. Electronically Signed: Rachael Colindres. August 12, 2021 7:37 AM Provider Attestation: I, Erik Reynolds MD, personally performed the services described in this documentation. All medical record entries made by the scribe were at my direction and in my presence. I have reviewed the chart and discharge instructions (if applicable) and agree that the record reflects my personal performance and is accurate and complete. Electronically Signed: Erik Reynolds MD. August 12, 2021 1:20 PM documented in this [facility]06-13-2022 Miscellaneous Notes* Telephone Encounter - Estephanie Navas - 08/08/2021 8:18 AM EDT Received hospital follow up visit from [facility]. Placed in provider's inbox for review. Route to [place] scanning. documented in this [facility]06-01-2022 Miscellaneous Notes* Telephone Encounter - Estephanie Confer - 07/27/2021 2:06 PM EDT Received discharge summary from [facility] home health summary. Placed in provider's inbox for review. Route to [place] scanning. documented in this encounterPremier Health Upper Valley Medical Center05-23-2022 Miscellaneous Notes* Telephone Encounter - Estephanie Navas - 07/18/2021 5:24 PM EDT Faxed to [facility] home health services. documented in this [facility]05-23-2022 Miscellaneous Notes* Telephone Encounter - Silvia Menard LPN - 07/18/2021 9:03 AM EDT Received 07/18/2021 from [facility]. Placed in provider's inbox for review. Route to [place] for faxing [phone] PT order Re eval week of 07/17/2021 PT visit 07/15/2021 JUDICIAL LAW CLERK evaluation documented in this encounterPremier Health Upper Valley Medical Center05-23-2022 Miscellaneous Notes* Telephone Encounter - Silvia Menard LPN - 07/18/2021 7:50 AM EDT Received 07/18/2021 from [facility]. Placed in provider's inbox for review. Route to [place] for scanning Home health discharge OT. documented in this encounterPremier Health Upper Valley [facility] Center05-12-2022 Miscellaneous Notes* Telephone Encounter - Estephanie Navas - 07/07/2021 1:12 PM EDT Reviewed and signed by PCP. Faxed to [facility] home health. documented in this encounterPremier Health Upper [facility] Center05-10-2022 Miscellaneous Notes* Telephone Encounter - Estephanie Navas - 07/05/2021 2:27 PM EDT Received request for pcp sign off from [facility] home health services. Placed in provider's inbox for review. Route to [place] fax documented in this encounterPremier Health Upper Valley [facility] Center05-09-2022 Miscellaneous Notes* Telephone Encounter - Bobbi Campa RN - 07/04/2021 5:01 PM EDT Message left for VICKEY Malhotra approval for JUDICIAL LAW CLERK consult for patient per Radha Rodriguez CNP on behalf ofDr Reynolds. * Telephone Encounter - Radha Rodriguez APRN.CNP - 07/04/2021 3:40 PM EDT Verbal order approved by ks on behalf of Dr. Reynolds for JUDICIAL LAW CLERK evaluation. Radha Rodriguez APRN.PRIMO * Telephone Encounter - Claire Lewis RN - 07/04/2021 2:49 PM EDT Please advise * Telephone Encounter - Delisa Martinez - 07/04/2021 2:16 PM EDT Marya Rutledge JUDICIAL LAW CLERK of Home Health at [facility] calling to ask for verbal order for a JUDICIAL LAW CLERK eval for patient (at home not in hospital) Please call Marya at [phone] to advise and answer questions. documented in this encounterPremier Health Upper Valley Medical Center05-09-2022 Miscellaneous Notes* Telephone Encounter - Estephanie Navas - 07/04/2021 10:45 AM EDT Received pt update from [facility]. Placed in provider's inbox for review. Route to [place] scanning. documented in this encounterPremier Health Upper Valley [facility] Center05-06-2022 Miscellaneous Notes* Telephone Encounter - Silvia Menard LPN - 07/01/2021 10:09 AM EDT Faxed to [facility]. Confirmation received. * Telephone Encounter - Silvia Menard LPN - 06/30/2021 4:01 PM EDT Received 06/30/2021 from [facility]. Placed in provider's inbox for review. Route to [place] faxin [phone] Certification and care plan 06/21/2021 - 08/19/2021 documented in this encounterPremier Health Upper Valley [facility] Center05-06-2022 Miscellaneous Notes* Telephone Encounter - Silvia Menard LPN - 07/01/2021 9:13 AM EDT Received 06/30/2021 from [facility]. Placed in provider's inbox for review. Route to [place] for scanning Missed visit PT 06/24/2021 documented in this encounterPrem[facility]05-04-[facility]22 History of Present illness Narrative* Fatemeh Rogers MD - 06/29/2021 3:00 PM EDT This note was created using [email or web address]. Subjective Romain Bailey is a 71 year [...] right upper chest. Will follow up with can doffer 07/17. Has PCP appointment 07/22 Tylenol for pain. Has Vicodin in case severe but avoids since makes her loopy. PAST MEDICAL HISTORY Diagnosis Date Arthropathy, unspecified, [...] of kidney 05/09/2018 Colon polyps 2014 Diverticulitis 2001 Environmental allergies GERD (gastroesophageal reflux disease) Hyperlipidemia [...] Judgment normal. Abdomen/Pelvis W IV Cont ONLY [facility] [address] [place] [address] Abdomen/Pelvis W IV Cont ONLY MR#: [id number] Acct: [id number] Name: ROMAIN BAILEY Rep #: [id number] : 1950 F 71 From: Kaia Moran PCP: Dr. Paul Reynolds MD Status: REG ER Study: Abdomen/Pelvis W IV Cont ONLY Date of Exam: Exam# [id number] Ordering Dr: Prakash Stephens MD STUDY: CT [...] this CT. COMPARISON: CT abdomen pelvis 05/09/2018. FINDINGS: LOWER CHEST: Reticular opacities in the [...] with minimal anterolisthesis at L4-5. OTHER: None. CT/Abdomen/Pelvis W IV Cont ONLY IMPRESSION: Large [...] Prakash Stephens MD; Dr. Paul Reynolds MD Apparel Patternmaker: Signed Assessment and Plan ASSESSMENT/PLAN: 1. Abdominal [...] vaccine - ICD9: V04.89, ICD10: Z23 - [employer] COVID-19 VACCINE, AGE 12+ YR ([place]) Fatemeh Rogers MD documented in this encounterPrem[facility]04-27-2022 Miscellaneous Notes* Telephone Encounter - Caroline Edwards - 06/22/2021 10:08 AM EDT Patient scheduled * Telephone Encounter - Radha Rodriguez APRN.CNP - 06/22/2021 9:19 AM EDT She will need a visit, please schedule with Dr. Reynolds. Radha Rodriguez APRN.CNP * Telephone Encounter - Sari Hooper - 06/22/2021 8:32 AM EDT .Romain Bailey is calling Erik Reynolds MD today to request a prescription for a lift chair. Patient states that insurance will cover. Patient was released from hospital and is having issues withbalance and strength. Please return call to patient if this can be done. No chief complaint on file. Patient has been identified by name and birthdate. Duration of symptoms: NA Person calling: self Call patient at: at home [phone] (home) [phone] (cell) Was an appointment scheduled: No Closing statement: Results or non-symptom based questions: Thank you for calling [facility], your call will be returned within the next business day. Sari Hooper documented in this encounterPremier Health [facility]04-26-2022 Miscellaneous Notes* Telephone Encounter - Silvia Menard LPN - 06/21/2021 9:13 AM EDT Received 06/21/2021 from [facility]. Placed in provider's inbox for review. Route to IN scanning documented in this encounterPremier Health [facility] Center04-25-2022 Miscellaneous Notes* Telephone Encounter - Ann-Marie Owusu Pss - 06/20/2021 3:22 PM EDT Susan from [facility] called to check to see if the doctor will follow for home care, she alreadyhas the orders from the hospital; gave verbal permission. * Telephone Encounter - Radha Rodriguez APRN.CNP - 06/20/2021 1:27 PM EDT OK to give verbal orders for PT and OT by this provider on behalf of Dr. Reynolds. Radha Rodriguez APRN.PRIMO * Telephone Encounter - Romain Sheth Pss - 06/20/2021 12:21 PM EDT Susan from [facility] home [facility] called patient Romain being D/C today 06/20 for a fall traumatic hematoma, requesting verbal orders for PHYSICAL THERAPY and OT, ok to leave VM private. documented in this encounterPremier [facility]04-25-2022 Miscellaneous Notes* Telephone Encounter - Silvia Menard LPN - 06/20/2021 1:54 PM EDT Received 06/20/2021 from [facility]. Placed in provider's inbox for review. Route to [place] for scanning Rectus Sheath hematoma Warfarin on hold Referral Dr Destin Damico Within [address] Reynolds follow up in 1 week. documented in this encounterPremier [facility]04-25-2022 Miscellaneous Notes* Telephone Encounter - Silvia Menard LPN - 06/20/2021 10:13 AM EDT Received 06/20/2021 from [facility] ER Summary. Placed in provider's inbox for [...] hold Labs in am documented in this encounterPremier [facility]04-18-2022 Miscellaneous Notes* Telephone Encounter - Silvia Menard LPN - 06/13/2021 10:10 AM EDT Received 06/13/2021 from [facility]. Placed in provider's inbox for review. Route to [place] for scanning ER Summary Fall Contusion of right wrist, right forearm, and right knee CT head X rays- right wrist Right knee right forearm documented in this encounterPremier Health [facility]04-18-2022 Miscellaneous Notes* Telephone Encounter - Silvia Menard LPN - 06/13/2021 9:07 AM EDT Received 06/13/2021 from [facility]. Placed in provider's inbox for review. Route [...] arthrosis Small joint effusion documented in this encounterPremier Health [facility] Center04-15-2022 Miscellaneous Notes* Telephone Encounter - Do Ortiz RN - 06/10/2021 7:06 AM EDT Reason For Call: Right wrist injury. Fell Disposition. Reason: Go To ED Now. Joint crooked Outcome: She plans to go to [place] ED. Care Advice: Elevate arm. Ice injured [...] hand. R knee swelling worse than usual andmore painful 4. SEVERITY: Can move fingers but it causes tingling 5. SIZE: See above 6. PAIN Right wrist [id number] Left knee - 10/05 7. TETANUS: 2016 according to chart 8. OTHER SYMPTOMS: Headache yesterday. She hit her head when she fell yesterday. She takes a blood thinner type medication 9. : Post-menopausal Protocols used: WRIST [id number], HAND AND WRIST [id number] documented in this encounterPremier Health [facility]04-12-2022 History of Present illness Narrative* Astrid Monae MA - 06/07/2021 11:27 AM EDT POPULATION HEALTH NAVIGATION OUTREACH Action/FYI [employer] outreach Mammogram Mailbox full Quickcue message sent Pt identified by name and : NO Outreach Outcome/Action Unable to reach patient: Phone number not valid / voicemail full judot message sent Reason for Outreach Care Gap or Scheduling/Wellness visits Payer: Payor: [employer] MEDICARE / Plan: [employer] / Product Type: HMO / Care Gap Reviewed:: Breast Cancer screening Reminder: Reminder note to check Health Maintenance for items below Health Maintenance items due: SPIROMETRY Never done BP CONTROLLED (<130/80) Never done SHINGRIX VACCINE(1 of 2) Never done MAMMOGRAM due on 06/26/2017 DEPRESSION SCREENING due on 08/31/2019 ADVANCE DIRECTIVE DISCUSSION Never done Message Sent to Practice: No Navigation Signature: Astrid Monae MA June 07, 2021 11:28 AM documented in this encounterPremier Health [facility]06-08-2021 History of Present illness Narrative* Agustina Todd, RT(R) - 08/03/2020 9:50 AM EDT Radiology Service Progress Note PATIENT NAME: Romain Bailey DATE OF SERVICE: August 03, 2020 TIME: 9:45 AM PATIENT IDENTITY VERIFICATION COMPLETED USING TWO (2) IDENTIFIERS: Name and Date of confirmedby patient verbally. FALL SCREENING: Has the patient had 2 falls in the last year or 1 fall with injury or currently using an Ambulatory Assistive Device (Walker, Cane, Wheelchair, Crutches, etc.)? No PATIENT GENDER DATA: Female. status: : No status: NO. PATIENT RELEVANT IMPLANT DATA REVIEWED: Yes RADIOLOGY DEPARTMENT: General X-ray: Exam(s) Completed: Lower Extremity X- Ray(s): Ankle, Left PERIPHERAL IV DATA: Not applicable SIGNED BY: RT Tammie(R) August 03, 2020 9:45 AM documented in this encounterPremier Health [facility] Center11-11-2020 History of Present illness Narrative* Susan Kaplan Tech (Tech) - 01/07/2020 9:00 AM EST Radiology Service Progress Note PATIENT NAME: Romain Bailey DATE OF SERVICE: January 07, 2020 TIME: 8:54 AM PATIENT IDENTITY VERIFICATION COMPLETED USING TWO (2) IDENTIFIERS: Name and Date of confirmedby patient verbally. FALL SCREENING: Has the patient had 2 falls in the last year or 1 fall with injury or currently using an Ambulatory Assistive Device (Walker, Cane, Wheelchair, Crutches, etc.)? No PATIENT GENDER DATA: Female. status: : No status: NO. PATIENT RELEVANT IMPLANT DATA REVIEWED: Not Applicable RADIOLOGY DEPARTMENT: General X-ray: Exam(s) Completed: Upper Extremity X- Ray(s): Shoulder, AP / TRUE AP / AXILLARY left : PERIPHERAL IV DATA: Not applicable SIGNED BY: Myriam Thomas January 07, 2020 8:54 AM documented in this encounterPremier Health [facility] Center11-04-2019 History of Past illness Narrative* Problem Noted Date Diagnosed Date Resolved Date Atrial fibrillation with rap id ventricular response 12/30/2018 01/01/2023 Fracture of finger, middle o r proximal phalanx, closed 08/28/2012 12/10/2020 Sebaceous cyst 05/15/2007 04/16/2012 Diverticulitis 12/10/2020 documented as of this encounter (statuses as of 01/02/2023) [facility] History of Past illness Narrative* Problem Noted Date Diagnosed Date Resolved Date Atrial fibrillation with rap id ventricular response 12/30/2018 01/01/2023 Fracture of finger, middle o r proximal phalanx, closed 08/28/2012 12/10/2020 Sebaceous cyst 05/15/2007 04/16/2012 Diverticulitis 12/10/2020 documented as of this encounter (statuses as of 01/10/2023) [facility] of Past illness Narrative* Problem Noted Date Diagnosed Date Resolved Date Atrial fibrillation with rap id ventricular response 12/30/2018 01/01/2023 Fracture of finger, middle o r proximal phalanx, closed 08/28/2012 12/10/2020 Sebaceous cyst 05/15/2007 04/16/2012 Diverticulitis 12/10/2020 documented as of this encounter (statuses as of 02/10/2023) [facility] of Past illness Narrative* Problem Noted Date Diagnosed Date Resolved Date Atrial fibrillation with rap id ventricular response 12/30/2018 01/01/2023 Fracture of finger, middle o r proximal phalanx, closed 08/28/2012 12/10/2020 Sebaceous cyst 05/15/2007 04/16/2012 Diverticulitis 12/10/2020 documented as of this encounter (statuses as of 02/16/2023) [facility] of [facility] illness Narrative* Problem Noted Date Diagnosed Date Resolved Date Atrial fibrillation with rap id ventricular response 12/30/2018 01/01/2023 Fracture of finger, middle o r proximal phalanx, closed 08/28/2012 12/10/2020 Sebaceous cyst 05/15/2007 04/16/2012 Diverticulitis 12/10/2020 documented as of this encounter (statuses as of 03/26/2023) [facility] of [facility] illness Narrative* Problem Noted Date Diagnosed Date Resolved Date Atrial fibrillation with rap id ventricular response 12/30/2018 01/01/2023 Fracture of finger, middle o r proximal phalanx, closed 08/28/2012 12/10/2020 Sebaceous cyst 05/15/2007 04/16/2012 Diverticulitis 12/10/2020 documented as of this encounter (statuses as of 04/05/2023) [facility] illness Narrative* Problem Noted Date Diagnosed Date Resolved Date Atrial fibrillation with rap id ventricular response 12/30/2018 01/01/2023 Fracture of finger, middle o r proximal phalanx, closed 08/28/2012 12/10/2020 Sebaceous cyst 05/15/2007 04/16/2012 Diverticulitis 12/10/2020 documented as of this encounter (statuses as of 04/10/2023) [facility] Narrative* Problem Noted Date Diagnosed Date Resolved Date Atrial fibrillation with rap id ventricular response 12/30/2018 01/01/2023 Fracture of finger, middle o r proximal phalanx, closed 08/28/2012 12/10/2020 Sebaceous cyst 05/15/2007 04/16/2012 Diverticulitis 12/10/2020 documented as of this encounter (statuses as of 04/12/2023) [facility] Narrative* Problem Noted Date Diagnosed Date Resolved Date Atrial fibrillation with rap id ventricular response 12/30/2018 01/01/2023 Fracture of finger, middle o r proximal phalanx, closed 08/28/2012 12/10/2020 Sebaceous cyst 05/15/2007 04/16/2012 Diverticulitis 12/10/2020 documented as of this encounter (statuses as of 04/18/2023) [facility] Narrative* Problem Noted Date Diagnosed Date Resolved Date Atrial fibrillation with rap id ventricular response 12/30/2018 01/01/2023 Fracture of finger, middle o r proximal phalanx, closed 08/28/2012 12/10/2020 Sebaceous cyst 05/15/2007 04/16/2012 Diverticulitis 12/10/2020 documented as of this encounter (statuses as of 06/01/2023) [facility] Narrative* Problem Noted Date Resolved Date Fracture of finger, middle or proximal phalanx, closed 08/28/2012 12/10/2020 Sebaceous cyst 05/15/2007 04/16/2012 Diverticulitis 12/10/2020 documented as of this encounter (statuses as of 05/21/2021) [facility] Narrative* Problem Noted Date Resolved Date Fracture of finger, middle or proximal phalanx, closed 08/28/2012 12/10/2020 Sebaceous cyst 05/15/2007 04/16/2012 Diverticulitis 12/10/2020 documented as of this encounter (statuses as of 06/07/2021) [facility] Narrative* Problem Noted Date Resolved Date Fracture of finger, middle or proximal phalanx, closed 08/28/2012 12/10/2020 Sebaceous cyst 05/15/2007 04/16/2012 Diverticulitis 12/10/2020 documented as of this encounter (statuses as of 06/10/2021) [facility] Narrative* Problem Noted Date Resolved Date Fracture of finger, middle or proximal phalanx, closed 08/28/2012 12/10/2020 Sebaceous cyst 05/15/2007 04/16/2012 Diverticulitis 12/10/2020 documented as of this encounter (statuses as of 06/13/2021) [facility] Narrative* Problem Noted Date Resolved Date Fracture of finger, middle or proximal phalanx, closed 08/28/2012 12/10/2020 Sebaceous cyst 05/15/2007 04/16/2012 Diverticulitis 12/10/2020 documented as of this encounter (statuses as of 06/20/2021) [facility] Narrative* Problem Noted Date Resolved Date Fracture of finger, middle or proximal phalanx, closed 08/28/2012 12/10/2020 Sebaceous cyst 05/15/2007 04/16/2012 Diverticulitis 12/10/2020 documented as of this encounter (statuses as of 06/22/2021) [facility] Narrative* Problem Noted Date Resolved Date Fracture of finger, middle or proximal phalanx, closed 08/28/2012 12/10/2020 Sebaceous cyst 05/15/2007 04/16/2012 Diverticulitis 12/10/2020 documented as of this encounter (statuses as of 06/23/2021) [facility] Narrative* Problem Noted Date Resolved Date Fracture of finger, middle or proximal phalanx, closed 08/28/2012 12/10/2020 Sebaceous cyst 05/15/2007 04/16/2012 Diverticulitis 12/10/2020 documented as of this encounter (statuses as of 07/01/2021) [facility] Narrative* Problem Noted Date Resolved Date Fracture of finger, middle or proximal phalanx, closed 08/28/2012 12/10/2020 Sebaceous cyst 05/15/2007 04/16/2012 Diverticulitis 12/10/2020 documented as of this encounter (statuses as of 07/01/2021) [facility] Narrative* Problem Noted Date Resolved Date Fracture of finger, middle or proximal phalanx, closed 08/28/2012 12/10/2020 Sebaceous cyst 05/15/2007 04/16/2012 Diverticulitis 12/10/2020 documented as of this encounter (statuses as of 07/04/2021) [facility] Narrative* Problem Noted Date Resolved Date Fracture of finger, middle or proximal phalanx, closed 08/28/2012 12/10/2020 Sebaceous cyst 05/15/2007 04/16/2012 Diverticulitis 12/10/2020 documented as of this encounter (statuses as of 07/05/2021) [facility]* Problem Noted Date Resolved Date Fracture of finger, middle or proximal phalanx, closed 08/28/2012 12/10/2020 Sebaceous cyst 05/15/2007 04/16/2012 Diverticulitis 12/10/2020 documented as of this encounter (statuses as of 07/07/2021) [facility] Narrative* Problem Noted Date Resolved Date Fracture of finger, middle or proximal phalanx, closed 08/28/2012 12/10/2020 Sebaceous cyst 05/15/2007 04/16/2012 Diverticulitis 12/10/2020 documented as of this encounter (statuses as of 07/18/2021) [facility]* Problem Noted Date Resolved Date Fracture of finger, middle or proximal phalanx, closed 08/28/2012 12/10/2020 Sebaceous cyst 05/15/2007 04/16/2012 Diverticulitis 12/10/2020 documented as of this encounter (statuses as of 07/27/2021) [facility]* Problem Noted Date Resolved Date Fracture of finger, middle or proximal phalanx, closed 08/28/2012 12/10/2020 Sebaceous cyst 05/15/2007 04/16/2012 Diverticulitis 12/10/2020 documented as of this encounter (statuses as of 08/08/2021) [facility]ative* Problem Noted Date Resolved Date Fracture of finger, middle or proximal phalanx, closed 08/28/2012 12/10/2020 Sebaceous cyst 05/15/2007 04/16/2012 Diverticulitis 12/10/2020 documented as of this encounter (statuses as of 08/12/2021) [facility]ative* Problem Noted Date Resolved Date Fracture of finger, middle or proximal phalanx, closed 08/28/2012 12/10/2020 Sebaceous cyst 05/15/2007 04/16/2012 Diverticulitis 12/10/2020 documented as of this encounter (statuses as of 08/15/2021) [facility]* Problem Noted Date Resolved Date Fracture of finger, middle or proximal phalanx, closed 08/28/2012 12/10/2020 Sebaceous cyst 05/15/2007 04/16/2012 Diverticulitis 12/10/2020 documented as of this encounter (statuses as of 08/25/2021) [facility]ative* Problem Noted Date Resolved Date Fracture of finger, middle or proximal phalanx, closed 08/28/2012 12/10/2020 Sebaceous cyst 05/15/2007 04/16/2012 Diverticulitis 12/10/2020 documented as of this encounter (statuses as of 08/29/2021) [facility]arrative* Problem Noted Date Resolved Date Fracture of finger, middle or proximal phalanx, closed 08/28/2012 12/10/2020 Sebaceous cyst 05/15/2007 04/16/2012 Diverticulitis 12/10/2020 documented as of this encounter (statuses as of 09/01/2021) [facility]arrative* Problem Noted Date Resolved Date Fracture of finger, middle or proximal phalanx, closed 08/28/2012 12/10/2020 Sebaceous cyst 05/15/2007 04/16/2012 Diverticulitis 12/10/2020 documented as of this encounter (statuses as of 09/05/2021) [facility]* Problem Noted Date Resolved Date Fracture of finger, middle or proximal phalanx, closed 08/28/2012 12/10/2020 Sebaceous cyst 05/15/2007 04/16/2012 Diverticulitis 12/10/2020 documented as of this encounter (statuses as of 09/06/2021) [facility]* Problem Noted Date Resolved Date Fracture of finger, middle or proximal phalanx, closed 08/28/2012 12/10/2020 Sebaceous cyst 05/15/2007 04/16/2012 Diverticulitis 12/10/2020 documented as of this encounter (statuses as of 09/16/2021) [facility]* Problem Noted Date Resolved Date Fracture of finger, middle or proximal phalanx, closed 08/28/2012 12/10/2020 Sebaceous cyst 05/15/2007 04/16/2012 Diverticulitis 12/10/2020 documented as of this encounter (statuses as of 10/11/2021) [facility]* Problem Noted Date Resolved Date Fracture of finger, middle or proximal phalanx, closed 08/28/2012 12/10/2020 Sebaceous cyst 05/15/2007 04/16/2012 Diverticulitis 12/10/2020 documented as of this encounter (statuses as of 10/13/2021) [facility]* Problem Noted Date Resolved Date Fracture of finger, middle or proximal phalanx, closed 08/28/2012 12/10/2020 Sebaceous cyst 05/15/2007 04/16/2012 Diverticulitis 12/10/2020 documented as of this encounter (statuses as of 10/14/2021) [facility]* Problem Noted Date Resolved Date Fracture of finger, middle or proximal phalanx, closed 08/28/2012 12/10/2020 Sebaceous cyst 05/15/2007 04/16/2012 Diverticulitis 12/10/2020 documented as of this encounter (statuses as of 11/21/2021) [facility]* Problem Noted Date Resolved Date Fracture of finger, middle or proximal phalanx, closed 08/28/2012 12/10/2020 Sebaceous cyst 05/15/2007 04/16/2012 Diverticulitis 12/10/2020 documented as of this encounter (statuses as of 12/05/2021) [facility]* Problem Noted Date Resolved Date Fracture of finger, middle or proximal phalanx, closed 08/28/2012 12/10/2020 Sebaceous cyst 05/15/2007 04/16/2012 Diverticulitis 12/10/2020 documented as of this encounter (statuses as of 12/22/2021) [facility]* Problem Noted Date Resolved Date Fracture of finger, middle or proximal phalanx, closed 08/28/2012 12/10/2020 Sebaceous cyst 05/15/2007 04/16/2012 Diverticulitis 12/10/2020 documented as of this encounter (statuses as of 12/27/2021) [facility]* Problem Noted Date Resolved Date Fracture of finger, middle or proximal phalanx, closed 08/28/2012 12/10/2020 Sebaceous cyst 05/15/2007 04/16/2012 Diverticulitis 12/10/2020 documented as of this encounter (statuses as of 12/29/2021) [facility]ative* Problem Noted Date Resolved Date Fracture of finger, middle or proximal phalanx, closed 08/28/2012 12/10/2020 Sebaceous cyst 05/15/2007 04/16/2012 Diverticulitis 12/10/2020 documented as of this encounter (statuses as of 12/30/2021) [facility]* Problem Noted Date Resolved Date Fracture of finger, middle or proximal phalanx, closed 08/28/2012 12/10/2020 Sebaceous cyst 05/15/2007 04/16/2012 Diverticulitis 12/10/2020 documented as of this encounter (statuses as of 01/06/2022) [facility]* Problem Noted Date Resolved Date Fracture of finger, middle or proximal phalanx, closed 08/28/2012 12/10/2020 Sebaceous cyst 05/15/2007 04/16/2012 Diverticulitis 12/10/2020 documented as of this encounter (statuses as of 01/10/2022) [facility]* Problem Noted Date Resolved Date Fracture of finger, middle or proximal phalanx, closed 08/28/2012 12/10/2020 Sebaceous cyst 05/15/2007 04/16/2012 Diverticulitis 12/10/2020 documented as of this encounter (statuses as of 01/24/2022) [facility]07-03-2013 History of Past illness Narrative* Problem Noted Date Resolved Date Fracture of finger, middle or proximal phalanx, closed 08/28/2012 12/10/2020 Sebaceous cyst 05/15/2007 04/16/2012 Diverticulitis 12/10/2020 documented as of this encounter (statuses as of 02/09/2022) [facility]07-03[facility]2013 History of Past illness Narrative* Problem Noted Date Resolved Date Fracture of finger, middle or proximal phalanx, closed 08/28/2012 12/10/2020 Sebaceous cyst 05/15/2007 04/16/2012 Diverticulitis 12/10/2020 documented as of this encounter (statuses as of 03/29/2022) [facility]2013 History of Past illness Narrative* Problem Noted Date Resolved Date Fracture of finger, middle or proximal phalanx, closed 08/28/2012 12/10/2020 Sebaceous cyst 05/15/2007 04/16/2012 Diverticulitis 12/10/2020 documented as of this encounter (statuses as of 04/09/2022) [facility]2013 History of Past illness Narrative* Problem Noted Date Resolved Date Fracture of finger, middle or proximal phalanx, closed 08/28/2012 12/10/2020 Sebaceous cyst 05/15/2007 04/16/2012 Diverticulitis 12/10/2020 documented as of this encounter (statuses as of 04/11/2022) [facility] History of Past illness Narrative* Problem Noted Date Resolved Date Fracture of finger, middle or proximal phalanx, closed 08/28/2012 12/10/2020 Sebaceous cyst 05/15/2007 04/16/2012 Diverticulitis 12/10/2020 documented as of this encounter (statuses as of 05/10/2022) [facility] History of Past illness Narrative* Problem Noted Date Resolved Date Fracture of finger, middle or proximal phalanx, closed 08/28/2012 12/10/2020 Sebaceous cyst 05/15/2007 04/16/2012 Diverticulitis 12/10/2020 documented as of this encounter (statuses as of 05/16/2022) [facility] History of Past illness Narrative* Problem Noted Date Resolved Date Fracture of finger, middle or proximal phalanx, closed 08/28/2012 12/10/2020 Sebaceous cyst 05/15/2007 04/16/2012 Diverticulitis 12/10/2020 documented as of this encounter (statuses as of 05/23/2022) [facility] History of Past illness Narrative* Problem Noted Date Resolved Date Fracture of finger, middle or proximal phalanx, closed 08/28/2012 12/10/2020 Sebaceous cyst 05/15/2007 04/16/2012 Diverticulitis 12/10/2020 documented as of this encounter (statuses as of 05/26/2022) [facility] History of Past illness Narrative* Problem Noted Date Resolved Date Fracture of finger, middle or proximal phalanx, closed 08/28/2012 12/10/2020 Sebaceous cyst 05/15/2007 04/16/2012 Diverticulitis 12/10/2020 documented as of this encounter (statuses as of 06/08/2022) [facility] History of Past illness Narrative* Problem Noted Date Resolved Date Fracture of finger, middle or proximal phalanx, closed 08/28/2012 12/10/2020 Sebaceous cyst 05/15/2007 04/16/2012 Diverticulitis 12/10/2020 documented as of this encounter (statuses as of 07/25/2022) [facility] History of Past illness Narrative* Problem Noted Date Resolved Date Fracture of finger, middle or proximal phalanx, closed 08/28/2012 12/10/2020 Sebaceous cyst 05/15/2007 04/16/2012 Diverticulitis 12/10/2020 documented as of this encounter (statuses as of 07/31/2022) [facility] History of Past illness Narrative* Problem Noted Date Resolved Date Fracture of finger, middle or proximal phalanx, closed 08/28/2012 12/10/2020 Sebaceous cyst 05/15/2007 04/16/2012 Diverticulitis 12/10/2020 documented as of this encounter (statuses as of 08/10/2022) [facility] History of Past illness Narrative* Problem Noted Date Diagnosed Date Resolved Date Fracture of finger, middle o r proximal phalanx, closed 08/28/2012 12/10/2020 Sebaceous cyst 05/15/2007 04/16/2012 Diverticulitis 12/10/2020 documented as of this encounter (statuses as of 09/07/2022) [facility]2013 History of Past illness Narrative* Problem Noted Date Diagnosed Date Resolved Date Fracture of finger, middle o r proximal phalanx, closed 08/28/2012 12/10/2020 Sebaceous cyst 05/15/2007 04/16/2012 Diverticulitis 12/10/2020 documented as of this encounter (statuses as of 11/16/2022) [facility]2013 History of Past illness Narrative* Problem Noted Date Diagnosed Date Resolved Date Fracture of finger, middle o r proximal phalanx, closed 08/28/2012 12/10/2020 Sebaceous cyst 05/15/2007 04/16/2012 Diverticulitis 12/10/2020 documented as of this encounter (statuses as of 11/17/2022) [facility]2013 History of Past illness Narrative* Problem Noted Date Diagnosed Date Resolved Date Fracture of finger, middle o r proximal phalanx, closed 08/28/2012 12/10/2020 Sebaceous cyst 05/15/2007 04/16/2012 Diverticulitis 12/10/2020 documented as of this encounter (statuses as of 11/25/2022) [facility] Diagnosis Mild persistent asthma with acute exacerbation Unspecified asthma, with exacerbation [facility] this [facility] noteNo assessment information availableWMer[facility] Work Phone: [facility]* Diagnosis Onset Date Resolution Status Fall acute Supratherapeutic INR acute Traumatic hematoma of abdominal wall acute [facility] Work Phone: Evaluation note* Diagnosis Generalized weakness- Primary Other malaise [...] for lipid disorders [facility]* Diagnosis Swelling of gland of right eyelid- Primary [facility] this [facility]* Diagnosis Abdominal wall hematoma, sequela- Primary Adhesive capsulitis of left shoulder Adhesive capsulitis of shoulder AF (paroxysmal atrial fibrillation) (HCC) Atrial fibrillation Need for COVID-19 vaccine [facility]* Diagnosis Encounter for screening mammogram for breast cancer [facility]* Diagnosis Mild persistent asthma with acute exacerbation Unspecified asthma, with exacerbation documented in this encounter [facility] note* Diagnosis Onset Date Resolution Status Fall resolved Supratherapeutic INR resolve d Mitral insufficiency acute Essential (primary) hypertension chronic HLD (hyperlipidemia) chronic Paroxysmal atrial fibrillation chronic [facility] Work Phone: evaluation note* Diagnosis Onset Date Resolution Status Fall resolved Supratherapeutic INR resolve d Mitral insufficiency acute Essential (primary) hypertension chronic HLD (hyperlipidemia) chronic Paroxysmal atrial fibrillation chronic Acute lower gastrointestinal bleeding acute Anticoagulated acute Colitis acute [facility] Work Phone: evaluation note* Diagnosis Onset Date Resolution Status Fall resolved Supratherapeutic INR resolve d Mitral insufficiency acute Essential (primary) hypertension chronic HLD (hyperlipidemia) chronic Paroxysmal atrial fibrillation chronic Anticoagulated acute Colitis acute On amiodarone therapy chroni c Acute lower gastrointestinal bleeding resolved [facility] Work Phone: Evaluation note* Diagnosis Onset Date Resolution Status Fall resolved Supratherapeutic INR resolve d Mitral insufficiency acute Essential (primary) hypertension chronic HLD (hyperlipidemia) chronic Paroxysmal atrial fibrillation chronic Colitis acute Acute lower gastrointestinal bleeding resolved Anticoagulated resolved Colitis acute [facility] Work Phone: Evaluation note* Diagnosis Pain in right lower leg- Primary Fall, initial encounter [facility]* Diagnosis Pain in right lower leg [facility] this [facility]* Diagnosis Onset Date Resolution Status Mitral insufficiency acute Essential (primary) hypertension chronic HLD (hyperlipidemia) chronic Paroxysmal atrial fibrillation chronic Colitis acute Acute lower gastrointestinal bleeding resolved Anticoagulated resolved Colitis acute Fatigue acute Essential (primary) hypertension chronic HLD (hyperlipidemia) chronic Paroxysmal atrial fibrillation chronic [facility] Work Phone: Evaluation note* Diagnosis Medication management Encounter for long-term (current) use of other medications documented in this encounter [facility] note* Diagnosis Onset Date Resolution Status Colitis acute Acute lower gastrointestinal bleeding resolved Anticoagulated resolved Colitis acute Fatigue acute Essential (primary) hypertension chronic HLD (hyperlipidemia) chronic Paroxysmal atrial fibrillation chronic Colitis acute Liver disease acute [facility] Work Phone: Evaluation note* Diagnosis Asthma- Primary Unspecified asthma Need [...] unspecified whether persistent documented in this encounter [facility] note* Diagnosis TIA (transient ischemic attack) Unspecified transient cerebral ischemia Hyperlipidemia, mixed Mixed hyperlipidemia Atrial fibrillation with rapid ventricular response (HCC) Atrial fibrillation Essential hypertension Unspecified essential hypertension documented in this encounter [facility] note* Diagnosis Sacroiliitis (HCC)- Primary Sacroiliitis, not elsewhere classified Foot pain, left Pain in limb [facility] this [facility]* Diagnosis Onset Date Resolution Status Fatigue acute Essential (primary) hypertension chronic HLD (hyperlipidemia) chronic Paroxysmal atrial fibrillation chronic Colitis acute Liver disease acute [facility] Work Phone: Evaluation note* Diagnosis Onset Date Resolution Status Colitis acute Liver disease [facility] Work Phone: Evaluation note* Diagnosis Sacroiliitis (HCC)- Primary Sacroiliitis, not elsewhere classified Chronic bilateral low back pain with bilateral sciatica [facility] this [facility]* Diagnosis Sacroiliitis (HCC)- Primary Sacroiliitis, not elsewhere classified documented in this encounter [facility] note* Diagnosis 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 Epiphora due to insufficient drainage Nldo, acquired (nasolacrimal duct obstruction), bilateral [facility] Diagnosis Sacroiliitis (HCC)- Primary Sacroiliitis, not elsewhere classified [facility] Diagnosis Sacroiliitis (HCC)- Primary Sacroiliitis, not elsewhere classified documented [facility] this [facility]* Diagnosis Essential hypertension- Primary Unspecified essential hypertension Hyperlipidemia, mixed Mixed hyperlipidemia Environmental allergies Other allergy, other than to medicinal agents Mild persistent asthma with acute exacerbation Unspecified asthma, with exacerbation Need for second booster dose of COVID-19 vaccine Chronic bilateral low back pain with bilateral sciatica Sacroiliitis (HCC) Sacroiliitis, not elsewhere classified [facility]* Diagnosis Encounter for screening mammogram for breast cancer [facility] Diagnosis Lumbar radiculopathy- Primary Thoracic or lumbosacral neuritis or radiculitis, unspecified Sacroiliitis (HCC) Sacroiliitis, not elsewhere classified Left foot drop Other acquired deformity of ankle and foot [facility]* Diagnosis Onset Date Resolution Status Chest pain acute Essential (primary) hypertension chronic Paroxysmal atrial fibrillation [facility] Work Phone: Evaluation note* Diagnosis Swelling of gland of right eyelid- Primary documented in this encounter [facility] note* Diagnosis Pain- Primary [facility]ized [facility] URI, acute- Primary Acute upper respiratory infections of unspecified site Acute cough History of asthma Personal history of other diseases of respiratory system [facility] Diagnosis Infection of right eye- Primary [facility]* Diagnosis Asthma- Primary Unspecified asthma Need [...] joint, shoulder region [facility] this [facility]* Diagnosis Right wrist pain- Primary Pain in joint, forearm Primary osteoarthritis of first carpometacarpal joint of right hand Primary localized osteoarthrosis, hand [facility]* Diagnosis Bronchitis- Primary Bronchitis, not specified as acute or chronic [facility] Diagnosis Onset Date Resolution Status Acute hypokalemia acute Asthma exacerbation acute Atrial fibrillation with RVR acute URI (upper respiratory infection) acute [facility] Work Phone: Evaluation note* Diagnosis Moderate persistent asthma with acute exacerbation- Primary Atrial fibrillation with rapid ventricular response (HCC) Atrial fibrillation Diarrhea, unspecified type [facility] Diagnosis Atrial fibrillation with RVR (HCC)- Primary Atrial fibrillation Atrial fibrillation with rapid ventricular response (HCC) Atrial fibrillation TIA (transient ischemic attack) Unspecified transient cerebral ischemia [facility]* Diagnosis RSV (respiratory syncytial virus infection)- Primary Respiratory syncytial virus (RSV) Atrial fibrillation with rapid ventricular response (HCC) Atrial fibrillation Mild persistent asthma without complication Unspecified asthma [facility]* Diagnosis Mitral valve insufficiency, unspecified etiology [facility] Diagnosis Onset Date Resolution Status Acute hypokalemia acute Asthma exacerbation acute Atrial fibrillation with RVR acute URI (upper respiratory infection) acute ABLA (acute blood loss anemia) acute Acute lower gastrointestinal bleeding acute GI bleed acute Near syncope acute Symptomatic anemia acute [facility]CI current use of anticoagulant chronic [facility] Work Phone: Evaluation note* Diagnosis Onset Date Resolution Status Acute hypokalemia acute Asthma exacerbation acute Atrial fibrillation with RVR acute URI (upper respiratory infection) acute ABLA (acute blood loss anemia) acute Acute lower gastrointestinal bleeding acute GI bleed acute Ischemic colitis acute Near syncope acute Symptomatic anemia 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 [facility] Work Phone: Evaluation note* Diagnosis Essential hypertension Unspecified essential hypertension Atrial fibrillation with RVR (HCC) Atrial fibrillation documented in this encounter [facility] note* Diagnosis Ischemic colitis (HCC)- Primary Unspecified vascular insufficiency of intestine Mild persistent asthma with acute exacerbation Unspecified asthma, with exacerbation Essential hypertension Unspecified essential hypertension Paroxysmal atrial fibrillation (HCC) Atrial fibrillation Bilateral lower extremity edema Edema Hypokalemia Hypopotassemia Anemia, unspecified type documented in this encounter [facility] note* Diagnosis Encounter for screening mammogram for breast cancer documented in this encounter [facility] note* Diagnosis Acute UTI- Primary Urinary tract infection, site not specified Burning with urination Dysuria documented in this encounter [facility] note* Diagnosis Mild persistent asthma without complication- Primary Unspecified asthma Allergic rhinitis, unspecified seasonality, unspecified trigger Essential hypertension Unspecified essential hypertension Paroxysmal atrial fibrillation (HCC) Atrial fibrillation Bee sting allergy Allergy to insects and arachnids documented in this encounter [facility] note* Diagnosis Gastroesophageal reflux disease Esophageal reflux TIA (transient ischemic attack) Unspecified transient cerebral ischemia Hyperlipidemia, mixed Mixed hyperlipidemia Essential hypertension Unspecified essential hypertension Atrial fibrillation with rapid ventricular response (HCC) Atrial fibrillation Bee sting allergy Allergy to insects and arachnids documented in this encounter [facility] note* Diagnosis Acute asthmatic bronchitis- Primary Unspecified asthma, with exacerbation Mild persistent asthma with acute exacerbation Unspecified asthma, with exacerbation documented in this encounter [facility] note* Diagnosis Pre-operative examination- Primary Preoperative examination, [...] acute or chronic documented in this encounter [facility] note* Diagnosis Pre-operative examination- Primary Preoperative examination, [...] not elsewhere classified documented in this encounter [facility] note* Diagnosis Pre-operative examination- Primary Preoperative examination, [...] right lower leg documented in this encounter [facility] note* Diagnosis Pre-operative examination- Primary Preoperative examination, [...] back pain with bilateral sciatica, unspecified chronicity Essential hypertension- Primary Unspecified essential hypertension Screening for colon cancer Special screening for malignant neoplasms, colon Encounter for immunization Need for other specified prophylactic vaccination against single bacterial disease Asthma Unspecified asthma Screening for depression Encounter for screening examination for other mental health and behavioral disorders Irritable bowel syndrome without diarrhea Irritable bowel syndrome Gastroesophageal reflux disease, unspecified whether esophagitis present Chronic pain of right knee Primary osteoarthritis of right knee Primary localized osteoarthrosis, lower leg [facility] this [facility]* Diagnosis Pre-operative examination- Primary Preoperative examination, [...] back pain with bilateral sciatica, unspecified chronicity Nausea vomiting and diarrhea- Primary Diarrhea Hiatal hernia Diaphragmatic hernia without mention of obstruction or gangrene [facility] this [facility]* Diagnosis Pre-operative examination- Primary Preoperative examination, [...] back pain with bilateral sciatica, unspecified chronicity New persistent daily headache- Primary New daily persistent headache Dizziness Dizziness and giddiness Balance problem Other symptoms involving nervous and musculoskeletal systems Gait abnormality Abnormality of gait documented in this encounter [facility] note* Diagnosis Pre-operative examination- Primary Preoperative examination, [...] back pain with bilateral sciatica, unspecified chronicity Anemia, unspecified type- Primary documented in this encounter [facility] note* Diagnosis Pre-operative examination- Primary Preoperative examination, [...] back pain with bilateral sciatica, unspecified chronicity New persistent daily headache New daily persistent headache Dizziness Dizziness and giddiness Balance problem Other symptoms involving nervous and musculoskeletal systems documented in this encounter [facility] note* Diagnosis Pre-operative examination- Primary Preoperative examination, [...] back pain with bilateral sciatica, unspecified chronicity Anemia, unspecified type documented in this encounter [facility] note* Diagnosis Pre-operative examination- Primary Preoperative examination, unspecified LLQ pain Abdominal pain, left lower quadrant Diverticulitis Diverticulitis of colon (without mention of hemorrhage) Migraine with aura and without status migrainosus, not intractable Migraine with aura, without mention of intractable migraine without mention of status migrainosus Essential hypertension Unspecified essential hypertension Hyperlipidemia, mixed Mixed hyperlipidemia Mild persistent asthma without complication (HCC) Unspecified asthma Gastroesophageal reflux disease, esophagitis presence not specified Calculus of kidney Bilateral low back pain with bilateral sciatica, unspecified chronicity TIA (transient ischemic attack) Unspecified transient cerebral ischemia Hyperlipidemia, mixed Mixed hyperlipidemia Essential hypertension Unspecified essential hypertension Atrial fibrillation with RVR (HCC) Atrial fibrillation Gastroesophageal reflux disease Esophageal reflux Atrial fibrillation with rapid ventricular response (HCC) Atrial fibrillation documented in this encounter [facility] note* Diagnosis Pre-operative examination- Primary Preoperative examination, unspecified LLQ pain Abdominal pain, left lower quadrant Diverticulitis Diverticulitis of colon (without mention of hemorrhage) Migraine with aura and without status migrainosus, not intractable Migraine with aura, without mention of intractable migraine without mention of status migrainosus Essential hypertension Unspecified essential hypertension Hyperlipidemia, mixed Mixed hyperlipidemia Mild persistent asthma without complication (HCC) Unspecified asthma Gastroesophageal reflux disease, esophagitis presence not specified Calculus of kidney Bilateral low back pain with bilateral sciatica, unspecified chronicity Encounter for screening mammogram for breast cancer [facility] Diagnosis Pre-operative examination- Primary Preoperative examination, unspecified LLQ pain Abdominal pain, left lower quadrant Diverticulitis Diverticulitis of colon (without mention of hemorrhage) Migraine with aura and without status migrainosus, not intractable Migraine with aura, without mention of intractable migraine without mention of status migrainosus Essential hypertension Unspecified essential hypertension Hyperlipidemia, mixed Mixed hyperlipidemia Mild persistent asthma without complication (HCC) Unspecified asthma Gastroesophageal reflux disease, esophagitis presence not specified Calculus of kidney Bilateral low back pain with bilateral sciatica, unspecified chronicity Anemia, unspecified type [facility] this encounter [facility] Author Nilo Stroud [facility] May 26, 2023 4:26pm Note Date/Time May 26, 2023 4:2 4pm [facility] Medical Records Department [address] [place] [address] H&P Exam - Hospitalist 05/26/23 1619 MR#: [id number] Acct: [id number] Name: ROMAIN BAILEY Rep #:[id number] : 1950 73 From: Nilo Stroud DO PCP: Dr. Fatemeh Rogers MD Status:AD M IN [place] [facility] [place] HPI - General General Date of Admission: 05/26/23 Date of Service: 05/26/23 Chief Complaint: GI bleed HPI Narrative ROMAIN BAILEY, is a 73 F who presents with a GI bleed. Symptoms began 1 week ago. Patient was hoping it would go away but. Despite the bleeding, she continues to take her apixaban. Did have worsening about a day but overall currently improving. She is starting to feel weak which is what presented her to come to the emergency room. In emergency room, patient's hemoglobin was noted to be 8.2. The ED physician reached out to Dr. Aleman, who would be willing to see the patient in consultation. Patient does complain of abdominal pain. She did have a CAT scan that did show proctocolitis. FORMERLY [facility] Medical History Acute lower gastrointestinal bleeding Ambulates with cane Asthma Atrial fibrillation Back pain BMI greater than 30 Colitis Community acquired pneumonia CVA (cerebral vascular accident) Diarrhea Essential (primary) hypertension GERD (gastroesophageal reflux disease) History of cataract History of Clostridium difficile infection History of hiatal hernia History of stress test HLD (hyperlipidemia) Migraine Non-smoker On amiodarone therapy Osteoarth NOS-up/arm Osteoarthritis Osteoporosis Paroxysmal atrial fibrillation Post-menopausal Secondary pulmonary arterial hypertension Suspected 2019 novel coronavirus infection (05/19/19) TIA (transient ischemic attack) Traumatic hematoma of abdominal wall 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 Wears partial dentures Home Medications epinephrine 0.3 mg/0.3 mL injection, auto-injector 0.3 mg IM X1 ALLERGIC REACTIONS 05/04/13 [History Last Taken Unknown] loratadine 10 mg tablet 10 mg PO DAILY ALLERGIES 05/04/13 [History Last Taken 05/26/23] albuterol sulfate 90 mcg/actuation aerosol inhaler 2 puff inhalation Q6H PRN Sob&/Or Wheezing 12/26/15 [History Last Taken 09/09/19] meclizine 25 mg tablet 25 mg PO Q6H PRN Dizziness 03/28/16 [History Last Taken 05/26/23] fluticasone propionate 50 mcg/actuation nasal spray,suspension 2 spray NASAL DAILY PRN Allergies 07/02/18 [History Last Taken 09/15/21] albuterol sulfate 2.5 mg/3 mL (0.083 %) solution for nebulization 2.5 mg inhalation Q4H PRN Sob &/Or Wheezing 12/04/18 [History Last Taken 12/01/18] verapamil 240 mg tablet,extended release 240 mg PO DAILY BP #90 tabs 12/30/19 [Rx Last Taken 05/26/23] atorvastatin 40 mg tablet 40 mg PO DAILY cholesterol 11/18/21 [History Last Taken 05/26/23] dicyclomine 10 mg capsule 10 mg PO BID PRN abdominal discomfort #30 caps 02/02/22 [Rx Last Taken Unknown] pantoprazole 40 mg tablet,delayed release See Rx Instructions .Route .COMPLEX stomach #90 tabs 06/12/22 [Rx Last Taken 05/26/23] apixaban 5 mg tablet (Eliquis) 5 mg PO BID thinner #180 tabs 09/15/22 [Rx Last Taken 05/26/23] colestipol 1 gram tablet 1 g PO BID med 30 days #60 tabs 10/25/22 [Rx Last Taken 05/18/23] metoprolol tartrate 25 mg tablet 25 mg PO BID 30 days #60 tabs 02/20/23 [Rx Last Taken 05/26/23] Allergy/AdvReac Type Severity Reaction Status Date / Time adhesive tape Allergy Rash Verified 05/26/23 13:20 pepper (genus Capsicum) Allergy Hives Verified 05/26/23 13:20 propoxyphene HCl Allergy Rash Verified 05/26/23 13:20 [From Darvon] sulfamethoxazole Allergy Shortness Verified 05/26/23 13:20 [From Bactrim] of breath trimethoprim [From Bactrim] Allergy Shortness Verified 05/26/23 13:20 of breath venom-honey bee Allergy Anaphylaxis Verified 05/26/23 13:20 [bee venom (honey bee)] venom-wasp [wasp venom] Allergy Anaphylaxis Verified 05/26/23 13:20 Family History Father CAD (coronary artery disease) Brother Heart disease Surgical History History of cholecystectomy History of colonoscopy (11/21/21) history of mastoid tumor resection History of total hysterectomy Social History Smoking Status: Never smoker alcohol intake: current alcohol intake frequency: holidays/special occasions only substance use type: does not use caffeine: Yes Type: tea Number of servings: 2 ROS ROS Narrative Positive chills. No fever. No nausea or vomiting. All review of systems were negative except as mentioned above in the history of present illness and the other review of systems. Vital Signs Vital Signs Vital Signs: 05/26/23 13:18 05/26/23 15:18 05/26/23 16:02 Temperature 35.8 C L 36.6 C Temperature Source Temporal Pulse Rate 78 66 78 Respiratory Rate 16 18 18 Blood Pressure 174/60 H 151/75 H 153/85 H Blood Pressure Mean 98 100 107 Pulse Ox 99 98 100 Oxygen Delivery Method Room Air Room Air 05/26/23 16:04 Temperature 36.8 C Temperature Source Temporal Pulse Rate 74 Respiratory Rate 18 Blood Pressure 153/85 H Blood Pressure Mean 107 Pulse Ox 99 Oxygen Delivery Method Nasal Cannula Weight Weight: 93.44 kg Body Mass Index (BMI) 33.2 Physical Exam Narrative - Physical Exam General: Alert, Oriented x3, Cooperative. Patient is having active chills in the hospital. HEENT: Atraumatic, PERRLA, EOMI, Normocephalic Oral: Moist Mucosa, No Gingival or Mucosal Lesions/ Ulcerations Neck: Supple, No JVD, Negative Carotid Bruits Lungs: Clear to auscultation, Normal air movement Cardiovascular: Regular rate, Normal S1, Normal S2, No murmurs Abdomen: Bowel Sounds Present, Soft, tender in left lower quadrant with slight rebound., Non-Distended, No Hepato-splenomegaly Extremities: No clubbing, No cyanosis, No edema, Capillary Refill Less than 3 Seconds Skin: No rashes, No breakdown Musculoskeletal: No Tenderness to Palpation of Joints or Extremities Neurological: Neuro grossly intact Psych/Mental Status: Normal Affect, Appropriate Results Lab / Micro Data Attestation: I reviewed the patient's lab results. 05/26/23 13:55 05/26/23 13:55 Labs: Laboratory Results - last 24 hr 05/26/23 13:55: WBC 5.9, RBC 3.52 L, Hgb 8.2 L, Hct 27.6 L, MCV 78.4 L, MCH 23.3L, MCHC 29.7 L, RDW Std Deviation 41.9, RDW Coeff of Kahlil 14.6, Plt Count 297, MPV 9.7, Immature Gran % (Auto) 0.300, Neut % (Auto) 63.3, Lymph % (Auto) 27.0, Blackford % (Auto) 7.3, Eos % (Auto) 1.4, Baso % (Auto) 0.7, Absolute Neuts (auto) 3.7, Absolute Lymphs (auto) 1.59, Nucleated RBC % 0, Sodium 142, Potassium 3.2 L, Chloride 111 H, Carbon Dioxide 24.0, Anion Gap 7, BUN 16, Creatinine 0.91, Estim Creat Clear Calc 64.36, Est GFR (MDRD) Af Amer 78, Est GFR (MDRD) Non-Af 64, BUN/Creatinine Ratio 17.5, Glucose 152 H, Lactic Acid 2.4 H*, Calcium 8.3 L,Total Bilirubin 0.40, AST 15, ALT 19, Alkaline Phosphatase 123 H, Total Protein 5.9 L, Albumin 3.2, Globulin 2.7, Albumin/Globulin Ratio 1.2 05/26/23 16:00: Crossmatch See Detail Imaging Radiology Impression Abdomen/Pelvis CT 05/26/23 13:44 IMPRESSION: Proctocolitis. Electronically Signed: Vikram Spears MD at 15:39 EDT , Assessment & Plan Assessment/Plan (1) GI bleed: PLAN: Plan GI bleed * Secondary to proctocolitis complicated by her ongoing use of apixaban * Treat the underlying cause as well as holding her apixaban for now. * General surgery to see and tentative plan for colonoscopy/flexible sigmoidoscopy. * If worse, consider bleeding scan. Suspect acute blood loss anemia * Current hemoglobin is 8.2. Back on [place] of last year, it was 11. Do not have any hemoglobins in the interim. * Monitor hemoglobin. No indication to transfuse at this point in time. Goal is to keep hemoglobin greater than equal to 7. Proctocolitis * Suspect either infectious versus ischemic. Much less likely would be inflammatory. * Antibiotics with ciprofloxacin and metronidazole Chronic conditions * Paroxysmal atrial fibrillation: Hold apixaban. Continue with metoprolol titrate * Hypertension: Continue with verapamil * COPD: Stable continue bronchodilators. VTE prophylaxis: Chemical prophylaxis contraindicated in light of GI bleed. SCDs CODE STATUS: Addressed with patient. Patient was to be full code. Charges/Coding Visit Charges Inpatient E&M: 51993 Init Hosp L3 05/26/23 1626 <Electronically signed by Nilo Stroud DO> Cosigner Signature (if applicable): CC: Dr. Nilo Stroud DO; Dr. Fatemeh Rogers MD~ Signed [facility] Work Phone: Reason for referral (narrative)* Diagnostic Procedure Only (Routine) - Pending Review Specialty Diagnoses / Procedures Referred By Contgracie t Referred To Contact BR IMAGING Diagnoses Encounter for screening mammogram for breast cancer Procedures KENNY SCREENING SCREENING MAMMOGRAPHY BI 2-VIEW BREAST INC Erik Conde MD [address] [place] [address] [place] [address] [facility] [address] [place] [address] Referral ID Status Reason Start Date Expiration Date Visits Requested Visits Authorized [id number] Pending Review Auto-Generat ed Referral 08/24/2021 09/23/2022 1 1 [facility] for referral (narrative)* Diagnostic Procedure Only (Urgent) - Authorized Specialty Diagnoses / Procedures Referred By Contac t Referred To Contact US IMAGING Diagnoses Pain in right lower leg Procedures US DVT LOWER RT DUP-SCAN XTR VEINS UNILATERAL/LIMITED STUDY Kristine Augustin APRN.PAPER CARRIER [address] [place] [address] Us Imaging Referral ID Status Reason Start Date Expiration Date Visits Requested Visits Authorized [id number] Authorized Auto-Generat ed Referral 10/11/2021 11/10/2022 1 1 * Diagnostic Procedure Only (Urgent) - Closed Specialty Diagnoses / Procedures Referred By Contac t Referred To Contact XR IMAGING Diagnoses Pain in right lower leg Procedures XR TIBIA FIBULA 2V AP/LAT RIGHT RADIOLOGIC EXAMINATION TIBIA & FIBULA 2 VIEWS Kristien Augustin APRN.PAPER CARRIER [address] [place] [address] Xr Imaging Referral ID Status Reason Start Date Expiration Date V isits Requested Visits Authorized [id number] Closed Auto-Generate d Referral 10/11/2021 11/10/2022 1 1 [facility] for referral (narrative)* Diagnostic Procedure Only (Urgent) - Closed Specialty Diagnoses / Procedures Referred By Contac t Referred To Contact US IMAGING Diagnoses Pain in right lower leg Procedures US DVT LOWER RT DUP-SCAN XTR VEINS UNILATERAL/LIMITED STUDY Kristine Augustin APRN.PAPER CARRIER [address] [place] [address] Us Imaging Referral ID Status Reason Start Date Expiration Date V isits Requested Visits Authorized [id number] Closed Auto-Generate d Referral 10/11/2021 11/10/2022 1 1 [facility] for referral (narrative)* Diagnostic Procedure Only (Routine) - Pending Review Specialty Diagnoses / Procedures Referred By Contac t Referred To Contact BR IMAGING Diagnoses Encounter for screening mammogram for breast cancer Procedures KENNY SCREENING SCREENING MAMMOGRAPHY BI 2-VIEW BREAST INC Fatemeh Massey MD [address] [place] [address] Br Imaging [address] [place] [address] Referral ID Status Reason Start Date Expiration Date Visits Requested Visits Authorized [id number] Pending Review Auto-Generat ed Referral 07/26/2022 08/25/2023 1 1 [facility] for referral (narrative)* Diagnostic Procedure Only (Routine) - Pending Review Specialty Diagnoses / Procedures Referred By Contac t Referred To Contact XR IMAGING Diagnoses Lumbar radiculopathy Sacroiliitis (HCC) Procedures XR LUMBAR MOTION 4V AP/LAT/ FLEX/EXT RADEX SPINE LUMBOSACRAL MINIMUM 4 VIEWS Francesca Peñaloza PA-C [address] [place] [address] Xr Imaging Referral ID Status Reason Start Date Expiration Date Visits Requested Visits Authorized [id number] Pending Review Auto-Generat ed Referral 08/10/2022 09/09/2023 1 1 [facility] for referral (narrative)* Diagnostic Procedure Only (Routine) - Authorized Specialty Diagnoses / Procedures Referred By Contac t Referred To Contact XR IMAGING Diagnoses Pain Procedures XR WRIST GENERAL 3V PA/LAT/OBL RIGHT RADEX WRIST COMPLETE MINIMUM 3 VIEWS Dwight Tobar MD [address] [place] [address] [place] [address] Referral ID Status Reason Start Date Expiration Date Visits Requested Visits Authorized [id number] Authorized Auto-Generat ed Referral 11/15/2022 12/15/2023 1 1 [facility] for referral (narrative)* Outpatient Procedure (Routine) - Authorized Specialty Diagnoses / Procedures Referred By Contac t Referred To Contact [facility] Diagnoses Asthma Procedures SPIROMETRY - BASELINE AND POST DILATOR BRNCDILAT RSPSE SPMTRY PRE&POST-BRNCDILAT Faith Herrera APRN.CNS [address] [place] [address] [facility] [address] [place] [address] Referral ID Status Reason Start Date Expiration Date Visits Requested Visits Authorized [id number] Authorized Auto-Generat ed Referral 01/01/2023 01/31/2024 1 1 [facility] for referral (narrative)* Diagnostic Procedure Only (Routine) - Pending Review Specialty Diagnoses / Procedures [facility] Diagnoses Encounter for screening mammogram for breast cancer Procedures KENNY SCREENING SCREENING MAMMOGRAPHY BI 2-VIEW BREAST INC CAD Fatemeh Rogers MD [address] [place] [address] [facility] [address] [place] [address] Referral ID Status Reason Start Date Expiration Date Visits Requested Visits Authorized [id number] Pending Review Auto-Generat ed Referral 07/04/2023 08/02/2024 1 1 T [facility] for referral (narrative)* Diagnostic Procedure Only (Routine) - Closed Specialty Diagnoses / Procedures Referred By Contac t Referred To Contact XR IMAGING Diagnoses Lumbar radiculopathy Sacroiliitis (HCC) Procedures XR LUMBAR MOTION 4V AP/LAT/ FLEX/EXT RADEX SPINE LUMBOSACRAL MINIMUM 4 VIEWS Francesca Peñaloza PA-C [address] [place] [address] [place] [address] Referral ID Status Reason Start Date Expiration Date V isits Requested Visits Authorized [id number] Closed Auto-Generate d Referral 08/10/2022 09/09/2023 1 1 [facility] for referral (narrative)* Diagnostic Procedure Only (Urgent) - Closed Specialty Diagnoses / Procedures Referred By Contac t Referred To Contact XR IMAGING Diagnoses Pain in right lower leg Procedures XR TIBIA FIBULA 2V AP/LAT RIGHT RADIOLOGIC EXAMINATION TIBIA & FIBULA 2 VIEWS Kristine Augustin APRN.PAPER CARRIER [address] [place] [address] [place] [address] Referral ID Status Reason Start Date Expiration Date V isits Requested Visits Authorized [id number] Closed Auto-Generate d Referral 10/11/2021 11/10/2022 1 1 [facility] for referral (narrative)* Outpatient Procedure (Routine) - New Request Specialty Diagnoses / Procedures Referred By Contac t Referred To Contact [facility] Diagnoses Asthma Procedures SPIROMETRY - BASELINE AND POST DILATOR BRNCDILAT RSPSE SPMTRY PRE&POST-BRNCDILAT ADMN Faith Mullins APRN.FINANCIAL SALES CONSULTANT [address] [place] [address] [facility] [address] [place] [address] Referral ID Status Reason Start Date Expiration Date Visits Requested Visits Authorized [id number] New Request Auto-Generat ed Referral 02/09/2025 1 1 [facility] for visit Narrative* Outpatient Procedure (Routine) - Closed Specialty Diagnoses / Procedures Referred By Contac t Referred To Contact [facility] Diagnoses Mitral valve insufficiency, unspecified etiology Procedures ECHO ECHO TTHRC R-T 2D W/WOM-MODE COMPL SPEC&COLR D Faith Mullins, COMPUTER NETWORK ENGINEER.FINANCIAL SALES CONSULTANT [address] [place] [address] [facility] [address] [place] [address] Referral ID Status Reason Start Date Expiration Date V isits Requested Visits Authorized [id number] Closed Auto-Generate d Referral 03/12/2023 03/11/2024 1 1 [facility] for visit Narrative* Diagnostic Procedure Only (Routine) - Closed Specialty Diagnoses / Procedures Referred By Contac t Referred To Contact XR IMAGING Diagnoses Lumbar radiculopathy Sacroiliitis (HCC) Procedures XR LUMBAR MOTION 4V AP/LAT/ FLEX/EXT RADEX SPINE LUMBOSACRAL MINIMUM 4 VIEWS Francesca Peñaloza PA-C [address] [place] [address] Xr Imaging [id number] Referral ID Status Reason Start Date Expiration Date V isits Requested Visits Authorized [id number] Closed Auto-Generate d Referral 08/10/2022 09/09/2023 1 1 [facility] for visit Narrative* Diagnostic Procedure Only (Urgent) - Closed Specialty Diagnoses / Procedures Referred By Contac t Referred To Contact XR IMAGING Diagnoses Pain in right lower leg Procedures XR TIBIA FIBULA 2V AP/LAT RIGHT RADIOLOGIC EXAMINATION TIBIA & FIBULA 2 VIEWS Kristine Augustin, COMPUTER NETWORK ENGINEER.PAPER CARRIER [address] [place] [address] [place] [address] Referral ID Status Reason Start Date Expiration Date V isits Requested Visits Authorized [id number] Closed Auto-Generate d Referral 10/11/2021 11/10/2022 1 1 [facility] Summary Purpose Family History No Family History Records Found Relationship Condition Age at Onset Recorded Date/T lorie father Coronary artery disease Unknown Relationship Condition Age at Onset Recorded Date/T lorie father Coronary artery disease Unknown brother Heart disease Unknown Advance Directives No Advanced Directives Records FoundDocuments on File Type Date Recorded 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 Advance Directive(s) 07/29/2018 12:42 PM Advance Directive(s) 07/28/2018 11:45 PM Advance Directive(s) 05/29/2018 9:34 AM Advance Directive(s) 05/08/2018 12:01 PM Advance Directive(s) 05/08/2018 12:06 PM Advance Directive Response Recorded Date/ Time Advance Directives No March 28, 2016 2:29pm Living Will No June 10, 2021 8:20am Power of Rail Assembler No June 10 8:20am Advance Directive Response Recorded Date/ Time Advance Directives No March 28, 2016 2:29pm Living Will No June 18, 2021 11:59pm Power of Rail Assembler No June 18 11:59pm Advance Directive Response Recorded Date/ Time Advance Directives No March 28, 2016 2:29pm Living Will No June 19, 2021 2:58am Power of Rail Assembler No June 19 2:58am Documents on File Type Date Recorded 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 Advance Directive(s) 07/29/2018 12:42 PM Advance Directive(s) 07/28/2018 11:45 PM Advance Directive(s) 05/29/2018 9:34 AM Advance Directive(s) 05/08/2018 12:01 PM Advance Directive(s) 05/08/2018 12:06 PM Advance Directive Response Recorded Date/ Time Advance Directives No March 28, 2016 2:29pm Living Will No September 15, 2021 7:43pm Power of Rail Assembler No September 15 7:43pm Advance Directive Response Recorded Date/ Time Advance Directives No March 28, 2016 2:29pm Living Will No September 15, 2021 9:08pm Power of Rail Assembler No September 15 9:08pm Advance Directive Response Recorded Date/ Time Advance Directives No March 28, 2016 2:29pm Living Will No November 23, 2021 11:21am Power of Rail Assembler No October 11:21am Advance Directive Response Recorded Date/ Time Advance Directives No March 28, 2016 1:29pm Living Will No January 06 9:54am Power of Rail Assembler No January 06, 2022 9:54am Advance Directive Response Recorded Date/ Time Advance Directives No March 28, 2016 1:29pm Living Will No January 24, 022 10:42am Power of Rail Assembler No January 24, 2022 10:42am Advance Directive Response Recorded Date/ Time Advance Directives No March 28, 2016 2:29pm Living Will No January 24 022 11:42am Power of Rail Assembler No January 24, 2022 11:42am Advance Directive Response Recorded Date/ Time Advance Directives No March 28, 2016 2:29pm Living Will No November 04 023 7:58pm Power of Rail Assembler No November 04, 2022 7:58pm Advance Directive Response Recorded Date/ Time Advance Directives No March 28, 2016 1:29pm Living Will No February 17 023 10:53am Power of Rail Assembler No February 17, 2023 10:53am Advance Directive Response Recorded Date/ Time Advance Directives No March 28, 2016 2:29pm Living Will No May 26, 2023 1:46pm Power of Rail Assembler No May 25 1:46pm Advance Directive Response Recorded Date/ Time Advance Directives No March 28, 2016 2:29pm Living Will No May 26, 2023 6:22pm Power of Rail Assembler No May 25 6:22pm Hospital Course Note HNO ID: [id number] Author: Asuncion Quiroz Service: General Internal Medicine Author Type: Physician [...] OPERATIONS DURING HOSPIT (more content not included)... Chief Complaint and Reason for Visit Chief Complaint fall Chief Complaint fall ABDOMINAL WALL HEMOTOMA Reason for Visit Fall Supratherapeutic INR Traumatic hematoma of abdominal wall Chief Complaint fall ABDOMINAL WALL HEMOTOMA HEMATOMA HEMATOMA Reason for Visit Fall Supratherapeutic INR Traumatic hematoma of abdominal wall Chief Complaint fall ABDOMINAL WALL HEMOTOMA HEMATOMA HEMATOMA 3 WEEK FU MV INSUFF Reason for Visit Fall Supratherapeutic INR Mitral insufficiency Essential (primary) hypertension HLD (hyperlipidemia) Paroxysmal atrial fibrillation Chief Complaint fall ABDOMINAL WALL HEMOTOMA HEMATOMA HEMATOMA 3 WEEK FU MV INSUFF GI BLEED Reason for Visit Fall Supratherapeutic INR Mitral insufficiency Essential (primary) hypertension HLD (hyperlipidemia) Paroxysmal atrial fibrillation Chief Complaint fall ABDOMINAL WALL HEMOTOMA HEMATOMA HEMATOMA 3 WEEK FU MV INSUFF ACUTE LOWER GI BLEED ACUTE LOWER GI BLEED Reason for Visit Fall Supratherapeutic INR Mitral insufficiency Essential (primary) hypertension HLD (hyperlipidemia) Paroxysmal atrial fibrillation Acute lower gastrointestinal bleeding Anticoagulated Colitis Chief Complaint fall ABDOMINAL WALL HEMOTOMA HEMATOMA HEMATOMA 3 WEEK FU MV INSUFF ACUTE LOWER GI BLEED ACUTE LOWER GI BLEED ACUTE LOWER GI BLEED ACUTE LOWER GI BLEED ACUTE LOWER GI BLEED Reason for Visit Fall Supratherapeutic INR Mitral insufficiency Essential (primary) hypertension HLD (hyperlipidemia) Paroxysmal atrial fibrillation Anticoagulated Colitis On amiodarone therapy Acute lower gastrointestinal bleeding Chief Complaint ABDOMINAL WALL HEMOT GINO HEMATOMA HEMATOMA 3 WEEK FU MV INSUFF ACUTE LOWER GI BLEED ACUTE LOWER GI BLEED ACUTE LOWER GI BLEED ACUTE LOWER GI BLEED ACUTE LOWER GI BLEED ACUTE LOWER GI BLEED ACUTE LOWER GI BLEED Hospital FU PAF, PALPITATIONS Reason for Visit Fall Supratherapeutic INR Mitral insufficiency Essential (primary) hypertension HLD (hyperlipidemia) Paroxysmal atrial fibrillation Colitis Acute lower gastrointestinal bleeding Anticoagulated Colitis Chief Complaint 3 WEEK FU MV INSUFF ACUTE LOWER GI BLEED ACUTE LOWER GI BLEED ACUTE LOWER GI BLEED ACUTE LOWER GI BLEED ACUTE LOWER GI BLEED ACUTE LOWER GI BLEED ACUTE LOWER GI BLEED Hospital FU PAF, PALPITATIONS PAF, PALPITATIONS 3 M FU E ORDERS Reason for Visit Mitral insufficiency Essential (primary) hypertension HLD (hyperlipidemia) Paroxysmal atrial fibrillation Colitis Acute lower gastrointestinal bleeding Anticoagulated Colitis Fatigue Essential (primary) hypertension HLD (hyperlipidemia) Paroxysmal atrial fibrillation Chief Complaint MV INSUFF ACUTE LOWER GI BLEED ACUTE LOWER GI BLEED ACUTE LOWER GI BLEED ACUTE LOWER GI BLEED ACUTE LOWER GI BLEED ACUTE LOWER GI BLEED ACUTE LOWER GI BLEED Hospital FU PAF, PALPITATIONS PAF, PALPITATIONS 3 M FU E ORDERS 2 WK FU E ORDER Reason for Visit Colitis Acute lower gastrointestinal bleeding Anticoagulated Colitis Fatigue Essential (primary) hypertension HLD (hyperlipidemia) Paroxysmal atrial fibrillation Colitis Liver disease Chief Complaint ACUTE LOWER GI BLEED ACUTE LOWER GI BLEED ACUTE LOWER GI BLEED ACUTE LOWER GI BLEED ACUTE LOWER GI BLEED ACUTE LOWER GI BLEED ACUTE LOWER GI BLEED Hospital FU PAF, PALPITATIONS PAF, PALPITATIONS 3 M FU E ORDERS 2 WK FU E ORDER LIVER DISEASE PAIN OTHER Reason for Visit Colitis Acute lower gastrointestinal bleeding Anticoagulated Colitis Fatigue Essential (primary) hypertension HLD (hyperlipidemia) Paroxysmal atrial fibrillation Colitis Liver disease Chief Complaint PAF, PALPITATIONS PAF, PALPITATIONS 3 M FU E ORDERS 2 WK FU E ORDER LIVER DISEASE PAIN OTHER FALL Reason for Visit Fatigue Essential (primary) hypertension HLD (hyperlipidemia) Paroxysmal atrial fibrillation Colitis Liver disease Chief Complaint 2 WK FU E ORDER LIVER DISEASE PAIN OTHER FALL ? CIRRHOSIS, LIVER DISEASE Reason for Visit Colitis Liver disease Chief Complaint PREV NN pt, has been seeing MMM POSTERIOR TIBIAL TENDON TEAR EORDERS- SPECIMEN Reason for Visit Chest pain Essential (primary) hypertension Paroxysmal atrial fibrillation Chief Complaint PREV NN pt, has been seeing MMM POSTERIOR TIBIAL TENDON TEAR EORDERS- SPECIMEN afib afib Reason for Visit Chest pain Essential (primary) hypertension Paroxysmal atrial fibrillation Chief Complaint POSTERIOR TIBIAL TEN DON TEAR EORDERS- SPECIMEN afib afib afib wrist injury Chief Complaint wrist injury AFIB RVR Reason for Visit Acute hypokalemia Asthma exacerbation Atrial fibrillation with RVR URI (upper respiratory infection) Chief Complaint AFIB RVR AFIB RVR RHYTHM CHANGE AFIB RVR CP AFIB RVR AFIB RVR GI BLEED GI BLEED Reason for Visit Acute hypokalemia Asthma exacerbation Atrial fibrillation with RVR URI (upper respiratory infection) ABLA (acute blood loss anemia) Acute lower gastrointestinal bleeding GI bleed Near syncope Symptomatic anemia 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 Chief Complaint AFIB RVR AFIB RVR RHYTHM CHANGE AFIB RVR CP AFIB RVR AFIB RVR GI BLEED GI BLEED GI BLEED GI BLEED GI BLEED GI BLEED GI BLEED GI BLEED GI BLEED GI BLEED Reason for Visit Acute hypokalemia Asthma exacerbation Atrial fibrillation with RVR URI (upper respiratory infection) ABLA (acute blood loss anemia) Acute lower gastrointestinal bleeding GI bleed Ischemic colitis Near syncope Symptomatic anemia 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 Reason for Referral Specialty Diagnoses / Procedures Referred By Contac t Referred To Contact Ophthalmology Diagnoses Obstruction of right tear duct Procedures CONSULT TO OPHTHALMOLOGY OFFICE/OUTPATIENT [facility] 60-74 MINUTES Faith Mullins, COMPUTER NETWORK ENGINEER.FINANCIAL SALES CONSULTANT [address] [place] [address] Referral ID Status Reason Start Date Expiration Date Visits Requested Visits Authorized [id number] Pending Review PCP Requested Referral 2 12/22/2022 1 1 Specialty Diagnoses / Procedures Referred By Contac t Referred To Contact [facility] Diagnoses Asthma Procedures SPIROMETRY - BASELINE AND POST DILATOR BRNCDILAT RSPSE SPMTRY PRE&POST-BRNCDILAT ADMN Faith Mullins, COMPUTER NETWORK ENGINEER.FINANCIAL SALES CONSULTANT [address] [place] [address] [facility] [address] [place] [address] Referral ID Status Reason Start Date Expiration Date Visits Requested Visits Authorized [id number] Pending Review Auto-Generat ed Referral 2 01/21/2023 1 1 Specialty Diagnoses / Procedures Referred By Contac t Referred To Contact [facility] Diagnoses Sacroiliitis (HCC) Procedures [facility]ULT [facility] OFFICE/OUTPATIENT [facility] 60-74 MINUTES Faith Mullins, COMPUTER NETWORK ENGINEER.FINANCIAL SALES CONSULTANT [address] [place] [address] Referral ID Status Reason Start Date Expiration Date Visits Requested Visits Authorized [id number] Pending Review PCP Requested Referral 2 01/10/2023 1 1 Specialty Diagnoses / Procedures Referred By Contac t Referred To Contact [facility] Diagnoses Sacroiliitis (HCC) Procedures CONSULT TO PHYSICAL THERAPY PHYSICAL THERAPY EVALUATION HIGH COMPLEX 45 MINS Faith Mullins, COMPUTER NETWORK ENGINEER.FINANCIAL SALES CONSULTANT [address] [place] [address] [facility] [place] [id number] [place] [address] Referral ID Status Reason Start Date Expiration Date Visits Requested Visits Authorized [id number] Pending Review Auto-Generat ed Referral 2 01/10/2023 1 1 Specialty Diagnoses / Procedures Referred By Contac t Referred To Contact [facility] Diagnoses Sacroiliitis (HCC) Procedures PT REHAB FOLLOW UP ORDER THERAPEUTIC EXERCISES RE, EA 15 MIN. Kristine Simmons, PT [facility] [address] [place] [address] Referral ID Status Reason Start Date Expiration Date Visits Requested Visits Authorized [id number] Pending Review PCP Requested Referral Auto-Generate d Referral 05/10/2022 08/08/2022 1 1 Specialty Diagnoses / Procedures Referred By Contac t Referred To Contact CT [facility] Diagnoses New persistent daily headache Dizziness Balance problem Procedures CT BRAIN WO IVCON CT HEAD/BRAIN W/O CONTRAST MATERIAL Erin Corona, COMPUTER NETWORK ENGINEER.PAPER CARRIER [address] [place] [address] [facility] [place] [address] Referral ID Status Reason Start Date Expiration Date Visits Requested Visits Authorized [id number] Authorized Auto-Generat ed Referral 4 03/14/2025 1 1 Referral ID Status Reason Start Date Expiration Date V isits Requested Visits Authorized [id number] Closed Auto-Generate d Referral 02/13/2024 03/14/2025 1 1 Medications Administered Section Inactive Administered [...] the event of a Fluress shortage, administer [place]-Fluor 1 drop into both eyes as directed [...] section and content) DATE CREATED AUTHOR 08/21/[address] [facility] DATE CREATED AUTHOR AUTHOR'S ORGANIZ ATION 08/04/2018 [facility] DATE CREATED AUTHOR AUTHOR'S ORGANIZ ATION 08/08/2018 [facility] DATE CREATED AUTHOR AUTHOR'S ORGANIZ ATION 03/01/2023 [facility] DATE CREATED AUTHOR AUTHOR'S ORGANIZ ATION 12/21/2024 [facility] DATE CREATED AUTHOR AUTHOR'S ORGANIZ ATION 01/07/2025 [facility] Source Comments (unrecognize d section and content) In the event this informatio n is protected by the Federal Confidentiality of Alcohol and Drug Abuse Patient Records regulations: The Federal rules restrict any use of the information to criminally investigate or prosecute any alcohol or drug abuse patient.[facility] the event this information is protected by the Federal Confidentiality of Alcohol and Drug Abuse Patient Records regulations: The Federal rules restrict any use of the information to criminally investigate or prosecute any alcohol or drug abuse patient.[facility] CenterIn the event this information is protected by the Federal Confidentiality of Alcohol and Drug Abuse Patient Records regulations: The Federal rules restrict any use of the information to criminally investigate or prosecute any alcohol or drug abuse patient.[facility] CenterIn the event this information is protected by the Federal Confidentiality of Alcohol and Drug Abuse Patient Records regulations: The Federal rules restrict any use of the information to criminally investigate or prosecute any alcohol or drug abuse patient.[facility] CenterIn the event this information is protected by the Federal Confidentiality of Alcohol and Drug Abuse Patient Records regulations: The Federal rules restrict any use of the information to criminally investigate or prosecute any alcohol or drug abuse patient.[facility] CenterIn the event this information is protected by the Federal Confidentiality of Alcohol and Drug Abuse Patient Records regulations: The Federal rules restrict any use of the information to criminally investigate or prosecute any alcohol or drug abuse patient.[facility] CenterIn the event this information is protected by the Federal Confidentiality of Alcohol and Drug Abuse Patient Records regulations: The Federal rules restrict any use of the information to criminally investigate or prosecute any alcohol or drug abuse patient.[facility] CenterIn the event this information is protected by the Federal Confidentiality of Alcohol and Drug Abuse Patient Records regulations: The Federal rules restrict any use of the information to criminally investigate or prosecute any alcohol or drug abuse patient.[facility] CenterIn the event this information is protected by the Federal Confidentiality of Alcohol and Drug Abuse Patient Records regulations: The Federal rules restrict any use of the information to criminally investigate or prosecute any alcohol or drug abuse patient.[facility] CenterIn the event this information is protected by the Federal Confidentiality of Alcohol and Drug Abuse Patient Records regulations: The Federal rules restrict any use of the information to criminally investigate or prosecute any alcohol or drug abuse patient.[facility] CenterIn the event this information is protected by the Federal Confidentiality of Alcohol and Drug Abuse Patient Records regulations: The Federal rules restrict any use of the information to criminally investigate or prosecute any alcohol or drug abuse patient.[facility] CenterIn the event this information is protected by the Federal Confidentiality of Alcohol and Drug Abuse Patient Records regulations: The Federal rules restrict any use of the information to criminally investigate or prosecute any alcohol or drug abuse patient.[facility] CenterIn the event this information is protected by the Federal Confidentiality of Alcohol and Drug Abuse Patient Records regulations: The Federal rules restrict any use of the information to criminally investigate or prosecute any alcohol or drug abuse patient.[facility] CenterIn the event this information is protected by the Federal Confidentiality of Alcohol and Drug Abuse Patient Records regulations: The Federal rules restrict any use of the information to criminally investigate or prosecute any alcohol or drug abuse patient.[facility] CenterIn the event this information is protected by the Federal Confidentiality of Alcohol and Drug Abuse Patient Records regulations: The Federal rules restrict any use of the information to criminally investigate or prosecute any alcohol or drug abuse patient.[facility] CenterIn the event this information is protected by the Federal Confidentiality of Alcohol and Drug Abuse Patient Records regulations: The Federal rules restrict any use of the information to criminally investigate or prosecute any alcohol or drug abuse patient.[facility] CenterIn the event this information is protected by the Federal Confidentiality of Alcohol and Drug Abuse Patient Records regulations: The Federal rules restrict any use of the information to criminally investigate or prosecute any alcohol or drug abuse patient.[facility] CenterIn the event this information is protected by the Federal Confidentiality of Alcohol and Drug Abuse Patient Records regulations: The Federal rules restrict any use of the information to criminally investigate or prosecute any alcohol or drug abuse patient.[facility] CenterIn the event this information is protected by the Federal Confidentiality of Alcohol and Drug Abuse Patient Records regulations: The Federal rules restrict any use of the information to criminally investigate or prosecute any alcohol or drug abuse patient.[facility] CenterIn the event this information is protected by the Federal Confidentiality of Alcohol and Drug Abuse Patient Records regulations: The Federal rules restrict any use of the information to criminally investigate or prosecute any alcohol or drug abuse patient.[facility] CenterIn the event this information is protected by the Federal Confidentiality of Alcohol and Drug Abuse Patient Records regulations: The Federal rules restrict any use of the information to criminally investigate or prosecute any alcohol or drug abuse patient.[facility] CenterIn the event this information is protected by the Federal Confidentiality of Alcohol and Drug Abuse Patient Records regulations: The Federal rules restrict any use of the information to criminally investigate or prosecute any alcohol or drug abuse patient.[facility] CenterIn the event this information is protected by the Federal Confidentiality of Alcohol and Drug Abuse Patient Records regulations: The Federal rules restrict any use of the information to criminally investigate or prosecute any alcohol or drug abuse patient.[facility] CenterIn the event this information is protected by the Federal Confidentiality of Alcohol and Drug Abuse Patient Records regulations: The Federal rules restrict any use of the information to criminally investigate or prosecute any alcohol or drug abuse patient.[facility] CenterIn the event this information is protected by the Federal Confidentiality of Alcohol and Drug Abuse Patient Records regulations: The Federal rules restrict any use of the information to criminally investigate or prosecute any alcohol or drug abuse patient.[facility] CenterIn the event this information is protected by the Federal Confidentiality of Alcohol and Drug Abuse Patient Records regulations: The Federal rules restrict any use of the information to criminally investigate or prosecute any alcohol or drug abuse patient.[facility] CenterIn the event this information is protected by the Federal Confidentiality of Alcohol and Drug Abuse Patient Records regulations: The Federal rules restrict any use of the information to criminally investigate or prosecute any alcohol or drug abuse patient.[facility] CenterIn the event this information is protected by the Federal Confidentiality of Alcohol and Drug Abuse Patient Records regulations: The Federal rules restrict any use of the information to criminally investigate or prosecute any alcohol or drug abuse patient.[facility] CenterIn the event this information is protected by the Federal Confidentiality of Alcohol and Drug Abuse Patient Records regulations: The Federal rules restrict any use of the information to criminally investigate or prosecute any alcohol or drug abuse patient.[facility] CenterIn the event this information is protected by the Federal Confidentiality of Alcohol and Drug Abuse Patient Records regulations: The Federal rules restrict any use of the information to criminally investigate or prosecute any alcohol or drug abuse patient.[facility] CenterIn the event this information is protected by the Federal Confidentiality of Alcohol and Drug Abuse Patient Records regulations: The Federal rules restrict any use of the information to criminally investigate or prosecute any alcohol or drug abuse patient.[facility] CenterIn the event this information is protected by the Federal Confidentiality of Alcohol and Drug Abuse Patient Records regulations: The Federal rules restrict any use of the information to criminally investigate or prosecute any alcohol or drug abuse patient.[facility] CenterIn the event this information is protected by the Federal Confidentiality of Alcohol and Drug Abuse Patient Records regulations: The Federal rules restrict any use of the information to criminally investigate or prosecute any alcohol or drug abuse patient.[facility] CenterIn the event this information is protected by the Federal Confidentiality of Alcohol and Drug Abuse Patient Records regulations: The Federal rules restrict any use of the information to criminally investigate or prosecute any alcohol or drug abuse patient.[facility] CenterIn the event this information is protected by the Federal Confidentiality of Alcohol and Drug Abuse Patient Records regulations: The Federal rules restrict any use of the information to criminally investigate or prosecute any alcohol or drug abuse patient.[facility] CenterIn the event this information is protected by the Federal Confidentiality of Alcohol and Drug Abuse Patient Records regulations: The Federal rules restrict any use of the information to criminally investigate or prosecute any alcohol or drug abuse patient.[facility] CenterIn the event this information is protected by the Federal Confidentiality of Alcohol and Drug Abuse Patient Records regulations: The Federal rules restrict any use of the information to criminally investigate or prosecute any alcohol or drug abuse patient.[facility] CenterIn the event this information is protected by the Federal Confidentiality of Alcohol and Drug Abuse Patient Records regulations: The Federal rules restrict any use of the information to criminally investigate or prosecute any alcohol or drug abuse patient.[facility] CenterIn the event this information is protected by the Federal Confidentiality of Alcohol and Drug Abuse Patient Records regulations: The Federal rules restrict any use of the information to criminally investigate or prosecute any alcohol or drug abuse patient.[facility] CenterIn the event this information is protected by the Federal Confidentiality of Alcohol and Drug Abuse Patient Records regulations: The Federal rules restrict any use of the information to criminally investigate or prosecute any alcohol or drug abuse patient.[facility] CenterIn the event this information is protected by the Federal Confidentiality of Alcohol and Drug Abuse Patient Records regulations: The Federal rules restrict any use of the information to criminally investigate or prosecute any alcohol or drug abuse patient.[facility] CenterIn the event this information is protected by the Federal Confidentiality of Alcohol and Drug Abuse Patient Records regulations: The Federal rules restrict any use of the information to criminally investigate or prosecute any alcohol or drug abuse patient.[facility] CenterIn the event this information is protected by the Federal Confidentiality of Alcohol and Drug Abuse Patient Records regulations: The Federal rules restrict any use of the information to criminally investigate or prosecute any alcohol or drug abuse patient.[facility] CenterIn the event this information is protected by the Federal Confidentiality of Alcohol and Drug Abuse Patient Records regulations: The Federal rules restrict any use of the information to criminally investigate or prosecute any alcohol or drug abuse patient.[facility] CenterIn the event this information is protected by the Federal Confidentiality of Alcohol and Drug Abuse Patient Records regulations: The Federal rules restrict any use of the information to criminally investigate or prosecute any alcohol or drug abuse patient.[facility] CenterIn the event this information is protected by the Federal Confidentiality of Alcohol and Drug Abuse Patient Records regulations: The Federal rules restrict any use of the information to criminally investigate or prosecute any alcohol or drug abuse patient.[facility] CenterIn the event this information is protected by the Federal Confidentiality of Alcohol and Drug Abuse Patient Records regulations: The Federal rules restrict any use of the information to criminally investigate or prosecute any alcohol or drug abuse patient.[facility] CenterIn the event this information is protected by the Federal Confidentiality of Alcohol and Drug Abuse Patient Records regulations: The Federal rules restrict any use of the information to criminally investigate or prosecute any alcohol or drug abuse patient.[facility] CenterIn the event this information is protected by the Federal Confidentiality of Alcohol and Drug Abuse Patient Records regulations: The Federal rules restrict any use of the information to criminally investigate or prosecute any alcohol or drug abuse patient.[facility] CenterIn the event this information is protected by the Federal Confidentiality of Alcohol and Drug Abuse Patient Records regulations: The Federal rules restrict any use of the information to criminally investigate or prosecute any alcohol or drug abuse patient.[facility] CenterIn the event this information is protected by the Federal Confidentiality of Alcohol and Drug Abuse Patient Records regulations: The Federal rules restrict any use of the information to criminally investigate or prosecute any alcohol or drug abuse patient.[facility] CenterIn the event this information is protected by the Federal Confidentiality of Alcohol and Drug Abuse Patient Records regulations: The Federal rules restrict any use of the information to criminally investigate or prosecute any alcohol or drug abuse patient.[facility] CenterIn the event this information is protected by the Federal Confidentiality of Alcohol and Drug Abuse Patient Records regulations: The Federal rules restrict any use of the information to criminally investigate or prosecute any alcohol or drug abuse patient.[facility] CenterIn the event this information is protected by the Federal Confidentiality of Alcohol and Drug Abuse Patient Records regulations: The Federal rules restrict any use of the information to criminally investigate or prosecute any alcohol or drug abuse patient.[facility] CenterIn the event this information is protected by the Federal Confidentiality of Alcohol and Drug Abuse Patient Records regulations: The Federal rules restrict any use of the information to criminally investigate or prosecute any alcohol or drug abuse patient.[facility] CenterIn the event this information is protected by the Federal Confidentiality of Alcohol and Drug Abuse Patient Records regulations: The Federal rules restrict any use of the information to criminally investigate or prosecute any alcohol or drug abuse patient.[facility] CenterIn the event this information is protected by the Federal Confidentiality of Alcohol and Drug Abuse Patient Records regulations: The Federal rules restrict any use of the information to criminally investigate or prosecute any alcohol or drug abuse patient.[facility] CenterIn the event this information is protected by the Federal Confidentiality of Alcohol and Drug Abuse Patient Records regulations: The Federal rules restrict any use of the information to criminally investigate or prosecute any alcohol or drug abuse patient.[facility] CenterIn the event this information is protected by the Federal Confidentiality of Alcohol and Drug Abuse Patient Records regulations: The Federal rules restrict any use of the information to criminally investigate or prosecute any alcohol or drug abuse patient.[facility] CenterIn the event this information is protected by the Federal Confidentiality of Alcohol and Drug Abuse Patient Records regulations: The Federal rules restrict any use of the information to criminally investigate or prosecute any alcohol or drug abuse patient.[facility] CenterIn the event this information is protected by the Federal Confidentiality of Alcohol and Drug Abuse Patient Records regulations: The Federal rules restrict any use of the information to criminally investigate or prosecute any alcohol or drug abuse patient.[facility] CenterIn the event this information is protected by the Federal Confidentiality of Alcohol and Drug Abuse Patient Records regulations: The Federal rules restrict any use of the information to criminally investigate or prosecute any alcohol or drug abuse patient.[facility] CenterIn the event this information is protected by the Federal Confidentiality of Alcohol and Drug Abuse Patient Records regulations: The Federal rules restrict any use of the information to criminally investigate or prosecute any alcohol or drug abuse patient.[facility] CenterIn the event this information is protected by the Federal Confidentiality of Alcohol and Drug Abuse Patient Records regulations: The Federal rules restrict any use of the information to criminally investigate or prosecute any alcohol or drug abuse patient.[facility] CenterIn the event this information is protected by the Federal Confidentiality of Alcohol and Drug Abuse Patient Records regulations: The Federal rules restrict any use of the information to criminally investigate or prosecute any alcohol or drug abuse patient.[facility] [facility] the event this information is protected by the Federal Confidentiality of Alcohol and Drug Abuse Patient Records regulations: The Federal rules restrict any use of the information to criminally investigate or prosecute any alcohol or drug abuse patient.[facility] CenterIn the event this information is protected by the Federal Confidentiality of Alcohol and Drug Abuse Patient Records regulations: The Federal rules restrict any use of the information to criminally investigate or prosecute any alcohol or drug abuse patient.[facility] CenterIn the event this information is protected by the Federal Confidentiality of Alcohol and Drug Abuse Patient Records regulations: The Federal rules restrict any use of the information to criminally investigate or prosecute any alcohol or drug abuse patient.[facility] CenterIn the event this information is protected by the Federal Confidentiality of Alcohol and Drug Abuse Patient Records regulations: The Federal rules restrict any use of the information to criminally investigate or prosecute any alcohol or drug abuse patient.[facility] CenterIn the event this information is protected by the Federal Confidentiality of Alcohol and Drug Abuse Patient Records regulations: The Federal rules restrict any use of the information to criminally investigate or prosecute any alcohol or drug abuse patient.[facility] CenterIn the event this information is protected by the Federal Confidentiality of Alcohol and Drug Abuse Patient Records regulations: The Federal rules restrict any use of the information to criminally investigate or prosecute any alcohol or drug abuse patient.[facility] CenterIn the event this information is protected by the Federal Confidentiality of Alcohol and Drug Abuse Patient Records regulations: The Federal rules restrict any use of the information to criminally investigate or prosecute any alcohol or drug abuse patient.[facility] CenterIn the event this information is protected by the Federal Confidentiality of Alcohol and Drug Abuse Patient Records regulations: The Federal rules restrict any use of the information to criminally investigate or prosecute any alcohol or drug abuse patient.[facility] CenterIn the event this information is protected by the Federal Confidentiality of Alcohol and Drug Abuse Patient Records regulations: The Federal rules restrict any use of the information to criminally investigate or prosecute any alcohol or drug abuse patient.[facility] CenterIn the event this information is protected by the Federal Confidentiality of Alcohol and Drug Abuse Patient Records regulations: The Federal rules restrict any use of the information to criminally investigate or prosecute any alcohol or drug abuse patient.[facility] CenterIn the event this information is protected by the Federal Confidentiality of Alcohol and Drug Abuse Patient Records regulations: The Federal rules restrict any use of the information to criminally investigate or prosecute any alcohol or drug abuse patient.[facility] CenterIn the event this information is protected by the Federal Confidentiality of Alcohol and Drug Abuse Patient Records regulations: The Federal rules restrict any use of the information to criminally investigate or prosecute any alcohol or drug abuse patient.[facility] CenterIn the event this information is protected by the Federal Confidentiality of Alcohol and Drug Abuse Patient Records regulations: The Federal rules restrict any use of the information to criminally investigate or prosecute any alcohol or drug abuse patient.[facility] CenterIn the event this information is protected by the Federal Confidentiality of Alcohol and Drug Abuse Patient Records regulations: The Federal rules restrict any use of the information to criminally investigate or prosecute any alcohol or drug abuse patient.[facility] CenterIn the event this information is protected by the Federal Confidentiality of Alcohol and Drug Abuse Patient Records regulations: The Federal rules restrict any use of the information to criminally investigate or prosecute any alcohol or drug abuse patient.[facility] CenterIn the event this information is protected by the Federal Confidentiality of Alcohol and Drug Abuse Patient Records regulations: The Federal rules restrict any use of the information to criminally investigate or prosecute any alcohol or drug abuse patient.[facility] CenterIn the event this information is protected by the Federal Confidentiality of Alcohol and Drug Abuse Patient Records regulations: The Federal rules restrict any use of the information to criminally investigate or prosecute any alcohol or drug abuse patient.[facility] CenterIn the event this information is protected by the Federal Confidentiality of Alcohol and Drug Abuse Patient Records regulations: The Federal rules restrict any use of the information to criminally investigate or prosecute any alcohol or drug abuse patient.[facility] CenterIn the event this information is protected by the Federal Confidentiality of Alcohol and Drug Abuse Patient Records regulations: The Federal rules restrict any use of the information to criminally investigate or prosecute any alcohol or drug abuse patient.[facility] CenterIn the event this information is protected by the Federal Confidentiality of Alcohol and Drug Abuse Patient Records regulations: The Federal rules restrict any use of the information to criminally investigate or prosecute any alcohol or drug abuse patient.[facility] CenterIn the event this information is protected by the Federal Confidentiality of Alcohol and Drug Abuse Patient Records regulations: The Federal rules restrict any use of the information to criminally investigate or prosecute any alcohol or drug abuse patient.[facility] CenterIn the event this information is protected by the Federal Confidentiality of Alcohol and Drug Abuse Patient Records regulations: The Federal rules restrict any use of the information to criminally investigate or prosecute any alcohol or drug abuse patient.[facility] CenterIn the event this information is protected by the Federal Confidentiality of Alcohol and Drug Abuse Patient Records regulations: The Federal rules restrict any use of the information to criminally investigate or prosecute any alcohol or drug abuse patient.[facility] CenterIn the event this information is protected by the Federal Confidentiality of Alcohol and Drug Abuse Patient Records regulations: The Federal rules restrict any use of the information to criminally investigate or prosecute any alcohol or drug abuse patient.[facility] CenterIn the event this information is protected by the Federal Confidentiality of Alcohol and Drug Abuse Patient Records regulations: The Federal rules restrict any use of the information to criminally investigate or prosecute any alcohol or drug abuse patient.[facility] CenterIn the event this information is protected by the Federal Confidentiality of Alcohol and Drug Abuse Patient Records regulations: The Federal rules restrict any use of the information to criminally investigate or prosecute any alcohol or drug abuse patient.[facility] CenterIn the event this information is protected by the Federal Confidentiality of Alcohol and Drug Abuse Patient Records regulations: The Federal rules restrict any use of the information to criminally investigate or prosecute any alcohol or drug abuse patient.[facility] CenterIn the event this information is protected by the Federal Confidentiality of Alcohol and Drug Abuse Patient Records regulations: The Federal rules restrict any use of the information to criminally investigate or prosecute any alcohol or drug abuse patient.[facility] CenterIn the event this information is protected by the Federal Confidentiality of Alcohol and Drug Abuse Patient Records regulations: The Federal rules restrict any use of the information to criminally investigate or prosecute any alcohol or drug abuse patient.[facility] CenterIn the event this information is protected by the Federal Confidentiality of Alcohol and Drug Abuse Patient Records regulations: The Federal rules restrict any use of the information to criminally investigate or prosecute any alcohol or drug abuse patient.[facility] CenterIn the event this information is protected by the Federal Confidentiality of Alcohol and Drug Abuse Patient Records regulations: The Federal rules restrict any use of the information to criminally investigate or prosecute any alcohol or drug abuse patient.[facility] CenterIn the event this information is protected by the Federal Confidentiality of Alcohol and Drug Abuse Patient Records regulations: The Federal rules restrict any use of the information to criminally investigate or prosecute any alcohol or drug abuse patient.[facility] CenterIn the event this information is protected by the Federal Confidentiality of Alcohol and Drug Abuse Patient Records regulations: The Federal rules restrict any use of the information to criminally investigate or prosecute any alcohol or drug abuse patient.[facility] CenterIn the event this information is protected by the Federal Confidentiality of Alcohol and Drug Abuse Patient Records regulations: The Federal rules restrict any use of the information to criminally investigate or prosecute any alcohol or drug abuse patient.[facility] CenterIn the event this information is protected by the Federal Confidentiality of Alcohol and Drug Abuse Patient Records regulations: The Federal rules restrict any use of the information to criminally investigate or prosecute any alcohol or drug abuse patient.[facility] Reason for Visit (unrecogniz ed section and content) Reason Comments Refill Request Reason Onset Date Comments Population Health Navigation Outreach 06/07/2021 Care gap Reason Comments Arm Injury Reason Comments [facility]ceived [facility] Reason Comments Received Outside Medical Records [facility] Emergnecy dept summary 06/10/2021 Reason Comments Received Outside Medical Records [facility] Emergency Dept Summary 06/19/2021 Reason Comments Received Outside Medical Records [facility] Discharge instructions 06/20/2021 Reason Comments Home Care Management Reason Comments Patient Request Reason Comments Received Outside Medical Records [facility] Discharge Summary 06/20/2021 Reason Comments Received Outside Medical Records Missed visit [facility] Home Health 06/24/2021 Reason Comments Received Outside Medical Records [facility] Home health certification and plan of care 06/21/2021 - 08/19/2021 Reason Comments Patient Update from [facility], pt does no t want OT at this time FYI Reason Comments Patient Update Reason Comments Orders request for sign off from PCP from [facility] home health services Reason Comments request for sign off on orders from [facility] home health Reason Comments Received Outside Medical Records [facility] Home health OT discharge 07/14/2021 Reason Comments Orders [facility] and JUDICIAL LAW CLERK evaluation 07/14/2021 Reason Comments order for PT reviewed and signed by PCP faxed to [facility] home health services Reason Comments Received Outside Medical Records dischar ge summary from [facility] home health Reason Comments Received Outside Medical Records [facility] Reason Comments Follow Up lift chair prescript ion Reason Comments Eye Problem Right Eye swollen, sore x2 d ays Reason Comments Hospital F/U Reason Onset Date Comments Refill Request 09/05/2021 Reason Comments Received Outside Medical Records [facility] car diovascular Reason Comments Received Outside Medical Records [facility] 09/15/2021 Emergency room summary Reason Comments Received Outside Medical Records [facility] CT Abdomen and Pelvid 09/15/2021 Reason Comments Pain Pt reported fall x1 wk prior (RT) calf pain rated 6, denied warmth, redness, c/o small lump, currently taking Eliquis Reason Comments Results Reason Comments Radiology US Specialty Diagnoses / Procedures Referred By Luis Alberto leal Referred To Contact US IMAGING Diagnoses Pain in right lower leg Procedures US DVT LOWER RT DUP-SCAN XTR VEINS UNILATERAL/LIMITED STUDY Kristine Augustin, COMPUTER NETWORK ENGINEER.PAPER CARRIER [address] [place] [address] Us Imaging Referral ID Status Reason Start Date Expiration Date V isits Requested Visits Authorized [id number] Closed Auto-Generate d Referral 10/11/2021 11/10/2022 1 1 Reason Comments Results [facility] spital 11/18/2021 Reason Comments Received Outside Medical Records [facility] office summary 11/18/2021 Reason Comments [...] EXERCISES RE, EA 15 MIN. Faith Mullins, COMPUTER NETWORK ENGINEER.FINANCIAL SALES CONSULTANT [address] [place] [address] [facility] [address] [address] Referral ID Status Reason Start Date Expiration Date Visits Requested Visits Authorized [id number] Authorized PCP Requested Referral Auto-Generate d Referral 04/17/2022 07/17/2022 12 12 Reason Comments blocked tear duct Right Eye Reason Comments Appointment Rescheduled Reason Comments Physical Therapy Specialty Diagnoses / Procedures Referred By Contac t Referred To Contact [facility] Diagnoses Sacroiliitis (HCC) Procedures PT REHAB FOLLOW UP ORDER THERAPEUTIC EXERCISES RE, EA 15 MIN. Faith Mullins, COMPUTER NETWORK ENGINEER.FINANCIAL SALES CONSULTANT [address] [place] [address] [facility] [address] [address] Reason Comments Yearly Exam Reason Comments New Patient Low Back Pain Specialty Diagnoses / Procedures Referred By Contac t Referred To Contact [facility] Diagnoses Sacroiliitis (HCC) Procedures CONSULT TO [facility] OFFICE/OUTPATIENT NEW HIGH MDM 60-74 MINUTES Faith Mullins, COMPUTER NETWORK ENGINEER.FINANCIAL SALES CONSULTANT [address] [place] [address] Referral ID Status Reason Start Date Expiration Date Visits Requested Visits Authorized [id number] Pending Review PCP Requested Referral 2 01/10/2023 [...] Reason Comments f/u on DME request from [facility] Reason Onset Date Comments Transition Of Care [...] Refill Request 10/31/2023 Reason Comments Radiology XR Reason Comments Abdominal Pain Reason Comments F/U 6 Month Reason Comments Clinical Update Reason Comments Headache Reason Comments Headache X 1 month, stiff nec k Dizziness Intermittent x 1 wee k with position changes Reason Comments Radiology CT Specialty Diagnoses / Procedures Referred By Contgracie t Referred To Contact CT IMAGING Diagnoses New persistent daily headache Dizziness Balance problem Procedures CT BRAIN WO IVCON CT HEAD/BRAIN W/O CONTRAST MATERIAL Erin Corona, COMPUTER NETWORK ENGINEER.PAPER CARRIER [address] [place] [address] Ct Imaging [id number] Referral ID Status Reason Start Date Expiration Date V isits Requested Visits Authorized [id number] Closed Auto-Generate d Referral 02/13/2024 03/14/2025 1 1 Reason Onset Date Comments Refill Request 05/09/2024 Reason Onset Date Comments Refill Request 06/30/2024 Reason Onset Date Comments Refill Request 10/16/2024 Care Teams (unrecognized sec tion and content) Cardiology Fellow Relationship Specialty Start Date End Date Erik Reynolds MD [address] [place], [place] [id number] PCP - General Family Practice 10/09/16 Cardiology Fellow Relationship Specialty Start Date End Date Erik Reynolds MD [facility] [place], [place] [id number] PCP - General Family Practice 10/09/16 Cardiology Fellow Relationship Specialty Start Date End Date Erik Reynolds MD [address] [place] [id number] PCP - General Family Practice 10/09/16 Cardiology Fellow Relationship Specialty Start Date End Date Erik Reynolds MD [address] [place] [id number] PCP - General Family Practice 10/09/16 Cardiology Fellow Relationship Specialty Start Date End Date Erik Reynolds MD [address] [facility] [place] [address] PCP - General Family Practice 10/09/16 Cardiology Fellow Relationship Specialty Start Date End Date Erik Reynolds MD [address] [place] [address] PCP - General Family Practice 10/09/16 Cardiology Fellow Relationship Specialty Start Date End Date Erik Reynolds MD [address] [place] [id number] PCP - General Family Practice 10/09/16 Cardiology Fellow Relationship Specialty Start Date End Date Erik Reynolds MD [address] [place] [id number] PCP - General Family Practice 10/09/16 Cardiology Fellow Relationship Specialty Start Date End Date Erik Reynolds MD [address] [place] [id number] PCP - General Family Practice 10/09/16 Cardiology Fellow Relationship Specialty Start Date End Date Erik Reynolds MD [facility] [place] [address] PCP - General Family Practice 10/09/16 Cardiology Fellow Relationship Specialty Start Date End Date Erik Reynolds MD [address] [place] [id number] PCP - General Family Practice 10/09/16 Cardiology Fellow Relationship Specialty Start Date End Date Erik Reynolds MD [address] [place] [id number] PCP - General Family Practice 10/09/16 Cardiology Fellow Relationship Specialty Start Date End Date Erik Reynolds MD [address] [place] [address] PCP - General Family Practice 10/09/16 Cardiology Fellow Relationship Specialty Start Date End Date Erik Reynolds MD [address] [place] [address] PCP - General Family Practice 10/09/16 Cardiology Fellow Relationship Specialty Start Date End Date Erik Reynolds MD [address] [place] [address], [place] [address] PCP - General Family Practice 10/09/16 Cardiology Fellow Relationship Specialty Start Date End Date Erik Reynolds MD [address] [place] [address], [place] [address] PCP - General Family Practice 10/09/16 Cardiology Fellow Relationship Specialty Start Date End Date Erik Reynolds MD [address] [place] [address], [place] [address] PCP - General Family Medicine 10/09/16 Cardiology Fellow Relationship Specialty Start Date End Date Fatemeh Rogers MD [address] [place] [address], [place] [address] PCP - General Internal Medicine 12/22/21 Cardiology Fellow Relationship Specialty Start Date End Date Fatemeh Rogers MD [address] [place] [address], [place] [address] PCP - General Internal Medicine 12/22/21 Cardiology Fellow Relationship Specialty Start Date End Date Fatemeh Rogers MD [address] [place] [address], [place] [address] PCP - General Internal Medicine 12/22/21 Cardiology Fellow Relationship Specialty Start Date End Date Fatemeh Rogers MD [address] [place] [address], [place] [address] PCP - General Internal Medicine 12/22/21 Cardiology Fellow Relationship Specialty Start Date End Date Fatemeh Rogers MD [address] [place] [address] PCP - General Internal Medicine 12/22/21 Cardiology Fellow Relationship Specialty Start Date End Date Fatemeh Rogers MD [address] [place] [address] PCP - General Internal Medicine 12/22/21 Cardiology Fellow Relationship Specialty Start Date End Date Fatemeh Rogers MD [address] [place] [address] PCP - General Internal Medicine 12/22/21 Team Status: Active Member Role Status Dates Dr. Paul Reynolds MD Family Provider Active Dr. Fatemeh Rogers MD Primary Care Provider Active Team Status: Inactive Member Role Status Dates Dr. Paul Reynolds MD Referring Provider Active Dr. Nicola Cowan DO Attending Provider Active Dr. Fatemeh Rogers MD Primary Care Provider Active Team Status: Inactive Member Role Status Dates Dr. Fatemeh Rogers MD Primary Care Provider Active Dr. Nicola Cowan DO Attending Provider Active Team Status: Inactive Member Role Status Dates Dr. Fatemeh Rogers MD Primary Care Provider Active Dr. Nicola Cowan DO Attending Provider, Referring Provider Active Team Status: Inactive Member Role Status Dates Dr. Fatemeh Rogers MD Primary Care Provider Active Dr. Nilo Hoffmann DO Attending Provider, Emergency P radha Active Team Status: Inactive Member Role Status Dates Dr. Fatemeh Rogers MD Primary Care Provider Active Dr. Rei Wolff MD Attending Provider, Emergency Provider Active Cardiology Fellow Relationship Specialty Start Date End Date Fatemeh Rogers MD [address] [place] [address] PCP - General Internal Medicine 12/22/21 Cardiology Fellow Relationship Specialty Start Date End Date Fatemeh Rogers MD [address] [place] [address] PCP - General Internal Medicine 12/22/21 Cardiology Fellow Relationship Specialty Start Date End Date Fatemeh Rogers MD [address] [place] [address], [place] [address] PCP - General Internal Medicine 12/22/21 Cardiology Fellow Relationship Specialty Start Date End Date Fatemeh Rogers MD [address] [place] [address], [place] [address] PCP - General Internal Medicine 12/22/21 Cardiology Fellow Relationship Specialty Start Date End Date Fatemeh Rogers MD [address] [place] [address], [place] [address] PCP - General Internal Medicine 12/22/21 Cardiology Fellow Relationship Specialty Start Date End Date Fatemeh Rogers MD [address] [place] [address], [place] [address] PCP - General Internal Medicine 12/22/21 Cardiology Fellow Relationship Specialty Start Date End Date Fatemeh Rogers MD [address] [place] [address], [place] [address] PCP - General Internal Medicine 12/22/21 Cardiology Fellow Relationship Specialty Start Date End Date Fatemeh Rogers MD [address] [place] [address] [place] [address] PCP - General Internal Medicine 12/22/21 Cardiology Fellow Relationship Specialty Start Date End Date Fatemeh Rogers MD [address] [place] [address] [place] [address] PCP - General Internal Medicine 12/22/21 Cardiology Fellow Relationship Specialty Start Date End Date Fatemeh Rogers MD [address] [place] [address] [place] [address] PCP - General Internal Medicine 12/22/21 Team Status: Inactive Member Role Status Dates Dr. Fatemeh Rogers MD Primary Care Provider, Referr ing Provider Active Dr. Destin Damico MD Attending Provider Active Team Status: Inactive Member Role Status Dates Dr. Fatemeh Rogers MD Primary Care Provider Active RICHARD PaulM Attending Provider, Referrin g Provider Active Team Status: Active Member Role Status Dates Dr. Fatemeh Rogers MD Primary Care Provider Active Dr. Nicola Cowan DO Attending Provider, Referring Provider Active Team Status: Active Member Role Status Dates Dr. Fatemeh Rogers MD Primary Care Provider Active Dr. Destin Damico MD Attending Provider, Referring Provider, Other Provider Active Team Status: Inactive Member Role Status Dates Dr. Fatemeh Rogers MD Primary Care Provider Active Dr. Destin Damico MD Attending Provider, Referring Pro vider Active Cardiology Fellow Relationship Specialty Start Date End Date Fatemeh Rogers MD [address] [place] [address] PCP - General Internal Medicine 12/22/21 Team Status: Active Member Role Status Dates Dr. Fatemeh Rogers MD Primary Care Provider Active Dr. Destin Damico MD Attending Provider, Referring Pro vider Active Team Status: Inactive Member Role Status Dates Dr. Fatemeh Rogers MD Primary Care Provider Active Dr. Ludwin Stanley DO Emergency Provider Active Cardiology Fellow Relationship Specialty Start Date End Date Fatemeh Rogers MD [address] [place] [address] PCP - General Internal Medicine 12/22/21 Cardiology Fellow Relationship Specialty Start Date End Date Fatemeh Rogers MD [address] [place], [place] [address] PCP - General Internal Medicine 12/22/21 Cardiology Fellow Relationship Specialty Start Date End Date Fatemeh Rogers MD [address] [place] [address] PCP - General Internal Medicine 12/22/21 Cardiology Fellow Relationship Specialty Start Date End Date Fatemeh Rogers MD [address] [place] [address] PCP - General Internal Medicine 12/22/21 Salomón Chambers [address] [place] [address] Referring Ophthalmology 12/15/22 Cardiology Fellow Relationship Specialty Start Date End Date Fatemeh Rogers MD [address] [place] [address] PCP - General Internal Medicine 12/22/21 Cardiology Fellow Relationship Specialty Start Date End Date Fatemeh Rogers MD [address] [place] [address] PCP - General Internal Medicine 12/22/21 Salomón Chambers [address] [place] [address] Referring Ophthalmology 12/15/22 Cardiology Fellow Relationship Specialty Start Date End Date Fatemeh Rogers MD [address] [place] [address] PCP - General Internal Medicine 12/22/21 Salomón Chambers [address] [place] [address] Referring Ophthalmology 12/15/22 Team Status: Inactive Member Role Status Dates Dr. Fatemeh Rogers MD Primary Care Provider Active Dr. Salomón Chambers MD Attending Provider Active Team Status: Active Member Role Status Dates Dr. Fatemeh Rogers MD Primary Care Provider Active Dr. Stevan Jean MD Emergency Provider Active Dr. Agustín Viramontes MD Admit Provider, Attending Provider Active Team Status: Inactive Member Role Status Dates Dr. Fatemeh Rogers MD Primary Care Provider Active Dr. Ludwin Stanley DO Attending Provider, Emergency Helio garcia Active Cardiology Fellow Relationship Specialty Start Date End Date Fatemeh Rogers MD [address] [place], [place] [address] PCP - General Internal Medicine 12/22/21 Salomón Chambers [address] [place], [place] [address] Referring Ophthalmology 12/15/22 Cardiology Fellow Relationship Specialty Start Date End Date Fatemeh Rogers MD [address] [place], [place] [address] PCP - General Internal Medicine 12/22/21 Salomón Chambers [address] [place], [place] [address] Referring Ophthalmology 12/15/22 Cardiology Fellow Relationship Specialty Start Date End Date Fatemeh Rogers MD [address] [place], [place] [address] PCP - General Internal Medicine 12/22/21 Salomón Chambers [address] [place], [place] [address] Referring Ophthalmology 12/15/22 Cardiology Fellow Relationship Specialty Start Date End Date Fatemeh Rogers MD [address] [place], [place] [address] PCP - General Internal Medicine 12/22/21 Salomón Chambers [address] [place] [address] Referring Ophthalmology 12/15/22 Cardiology Fellow Relationship Specialty Start Date End Date Fatemeh Rogers MD [address] [place] [address] PCP - General Internal Medicine 12/22/21 Salomón Chambers [address] [place] [address] Referring Ophthalmology 12/15/22 Team Status: Active Member Role Status Dates Dr. Fatemeh Rogers MD Primary Care Provider Active Dr. Stevan Jean MD Emergency Provider Active Dr. Agustín Viramontes MD Admit Provi federico, Attending Provider, Other Provider Active Team Status: Active Member Role Status Dates Dr. Fatemeh Rogers MD Primary Care Provider Active Dr. Destin Damico MD Attending Provider Active Dr. Agustín Viramontes MD Referring Provider Active Team Status: Active Member Role Status Dates Dr. Fatemeh Rogers MD Primary Care Provider Active Dr. Dwight Ruff MD Emergency Provider Active Dr. Nilo Stroud DO Admit Provider, At tending Provider, Other Provider Active Team Status: Inactive Member Role Status Dates Dr. Fatemeh Rogers MD Primary Care Provider Active Dr. Stevan Jean MD Emergency Provider Active Dr. Agustín Viramontes MD Admit Provider, Attending Provider Active Team Status: Active Member Role Status Dates Dr. Fatemeh Rogers MD Primary Care Provider Active Dr. Dwight Ruff MD Emergency Provider Active Dr. Nilo Stroud DO Admit Provider, Attending Provid er Active Team Status: Active Member Role Status Dates Dr. Fatemeh Rogers MD Primary Care Provider Active Dr. Dwight Ruff MD Emergency Provider Active Dr. Nilo Stroud DO Admit Provider, Other Provider A ctive Dr. Joesph Aleman MD Attending Provider, Other Provider Active Dr. Agustín Viramontes MD Other Provider Active Team Status: Active Member Role Status Dates Dr. Fatemeh Rogers MD Primary Care Provider Active Dr. Dwight Ruff MD Emergency Provider Active Dr. Nilo Stroud DO Admit Provider, Other Provider A ctive Dr. Joesph Aleman MD Other Provider Active Dr. Agustín Viramontes MD Attending Provider, Other Provider Active Team Status: Active Member Role Status Dates Dr. Fatemeh Rogers MD Primary Care Provider Active Dr. Dwight Ruff MD Emergency Provider Active Dr. Nilo Stroud DO Admit Provider, Other Provider A ctive Dr. Joesph Aleman MD Other Provider Active Dr. Maxine Griffin MD Attending Provider, Other Prov ider Active Dr. Agustín Viramontes MD Other Provider Active Team Status: Active Member Role Status Dates Dr. Fatemeh Rogers MD Primary Care Provider Active Dr. Dwight Ruff MD Emergency Provider Active Dr. Nilo Stroud DO Admit Provider, Other Provider A ctive Dr. Joesph Aleman MD Attending Provider, Other Provider Active Dr. Maxine Griffin MD Other Provider Active Dr. Agustín Viramontes MD Other Provider Active Team Status: Inactive Member Role Status Dates Dr. Fatemeh Rogers MD Primary Care Provider Active Dr. Dwight Ruff MD Emergency Provider Active Dr. Nilo Stroud DO Admit Provider, Other Provider A ctive Dr. Joesph Aleman MD Other Provider Active Dr. Maxine Griffin MD Attending Provider Active Dr. Agustín Viramontes MD Other Provider Active Cardiology Fellow Relationship Specialty Start Date End Date Fatemeh Rogers MD [address] [place] [address] PCP - General Internal Medicine 12/22/21 Salomón Chambers [address] [place] [address] Referring Ophthalmology 12/15/22 Cardiology Fellow Relationship Specialty Start Date End Date Fatemeh Rogers MD [address] [facility], [place] [address] PCP - General Internal Medicine 12/22/21 Salomón Chambers [address] [place] [address] Referring Ophthalmology 12/15/22 Cardiology Fellow Relationship Specialty Start Date End Date Fatemeh Rogers MD [address] [facility], [place] [address] PCP - General Internal Medicine 12/22/21 Salomón Chambers [address] [place] [address] Referring Ophthalmology 12/15/22 Cardiology Fellow Relationship Specialty Start Date End Date Fatemeh Rogers MD [address] [facility], [place] [address] PCP - General Internal Medicine 12/22/21 Salomón Chambers [address] [place] [address] Referring Ophthalmology 12/15/22 Cardiology Fellow Relationship Specialty Start Date End Date Fatemeh Rogers MD [address] [place] [address] PCP - General Internal Medicine 12/22/21 Salomón Chambers [address] [place] [address] Referring Ophthalmology 12/15/22 Cardiology Fellow Relationship Specialty Start Date End Date Fatemeh Rogers MD [address] [place], [place] [address]171 PCP - General Internal Medicine 12/22/21 Salomón Chambers [address] [place] [address] Referring Ophthalmology 12/15/22 Cardiology Fellow Relationship Specialty Start Date End Date Fatemeh Rogers MD [address] [place] [address] PCP - General Internal Medicine 12/22/21 Salomón Chambers [address] [place] [address] Referring Ophthalmology 12/15/22 Cardiology Fellow Relationship Specialty Start Date End Date Fatemeh Rogers MD [address] [place] [address] PCP - General Internal Medicine 12/22/21 Salomón Chambers [address] [place] [address] Referring Ophthalmology 12/15/22 Cardiology Fellow Relationship Specialty Start Date End Date Fatemeh Rogers MD [address] [place] [address] PCP - General Internal Medicine 12/22/21 Cardiology Fellow Relationship Specialty Start Date End Date Fatemeh Rogers MD [address] [place], [place] [address] PCP - General Internal Medicine 12/22/21 Cardiology Fellow Relationship Specialty Start Date End Date Erik Reynolds MD [address] [place], [place] [address] PCP - General Family Medicine 10/09/16 12/21/21 Cardiology Fellow Relationship Specialty Start Date End Date Erik Reynolds MD [address] [place] [address] PCP - General Family Medicine 10/09/16 12/21/21 Cardiology Fellow Relationship Specialty Start Date End Date Erik Reynolds MD [address] [place] [address] PCP - General Family Medicine 10/09/16 12/21/21 Cardiology Fellow Relationship Specialty Start Date End Date Fatemeh Rogers MD [address] [place] [address] PCP - General Internal Medicine 12/22/21 Salomón Chambers [address] [place] [address] Referring Ophthalmology 12/15/22 Cardiology Fellow Relationship Specialty Start Date End Date Fatemeh Roegrs MD [address] [place] [address] PCP - General Internal Medicine 12/22/21 Salomón Chambers [address] [place] [address] Referring Ophthalmology 12/15/22 Cardiology Fellow Relationship Specialty Start Date End Date Fatemeh Rogers MD [address] [place] [address] PCP - General Internal Medicine 12/22/21 Salomón Chambers [address] [place] [address] Referring Ophthalmology 12/15/22 Faith Mullins, COMPUTER NETWORK ENGINEER.FINANCIAL SALES CONSULTANT [address] [place] [address] Apprentice Machinist Outside Internal Medicine 02/04/24 Basilio Crouch COMPUTER NETWORK ENGINEER.PAPER CARRIER [address] [place] [address] Apprentice Machinist Outside Internal Medicine 02/04/24 Cardiology Fellow Relationship Specialty Start Date End Date Fatemeh Rogers MD [address] [place] [address] PCP - General Internal Medicine 12/22/21 Salomón Chambers [address] [place] [address] Referring Ophthalmology 12/15/22 Faith Mullins, COMPUTER NETWORK ENGINEER.FINANCIAL SALES CONSULTANT [address] [place] [address] Apprentice Machinist Outside Internal Medicine 02/04/24 Basilio Crouch COMPUTER NETWORK ENGINEER.PAPER CARRIER [address] [place] [address] Apprentice Machinist Outside Internal Medicine 02/04/24 Cardiology Fellow Relationship Specialty Start Date End Date Fatemeh Rogers MD [address] [place] [address] PCP - General Internal Medicine 12/22/21 Salomón Chambers [address] [place] [address] Referring Ophthalmology 12/15/22 Faith Mullins, COMPUTER NETWORK ENGINEER.FINANCIAL SALES CONSULTANT [address] [place] [address] Apprentice Machinist Outside Internal Medicine 02/04/24 Basilio Crouch COMPUTER NETWORK ENGINEER.PAPER CARRIER [address] [facility] [place] [address] Apprentice Machinist Outside Internal Medicine 02/04/24 Cardiology Fellow Relationship Specialty Start Date End Date Fatemeh Rogers MD [address] [place] [address] PCP - General Internal Medicine 12/22/21 Salomón Chambers [address] [place] [address] Referring Ophthalmology 12/15/22 Faith Mullisn, COMPUTER NETWORK ENGINEER.FINANCIAL SALES CONSULTANT [address] [place] [address] Apprentice Machinist Outside Internal Medicine 02/04/24 Basilio Crouch COMPUTER NETWORK ENGINEER.PAPER CARRIER [address] [facility] [place] [address] [facility] Internal Medicine 02/04/24 Cardiology Fellow Relationship Specialty Start Date End Date Fatemeh Rogers MD [address] [place] [address] PCP - General Internal Medicine 12/22/21 Salomón Chambers [address] [facility] [place], [place] [address] Referring Ophthalmology 12/15/22 Faith Mullins, COMPUTER NETWORK ENGINEER.FINANCIAL SALES CONSULTANT [address] [place] [address] Apprentice Machinist Outside Internal Medicine 02/04/24 Basilio Crouch APRN.PAPER CARRIER [address] [place] [address] [facility] Internal Medicine 02/04/24 Cardiology Fellow Relationship Specialty Start Date End Date Fatemeh Rogers MD [address] [place] [address] PCP - General Internal Medicine 12/22/21 Salomón Chambers [address] [place] [address] Referring Ophthalmology 12/15/22 Faith Mullins APRN.FINANCIAL SALES CONSULTANT [address] [place] [address] [facility] Internal Medicine 02/04/24 Basilio Crouch APRN.PAPER CARRIER [address] [place] [address] [facility] Internal Medicine 02/04/24 Cardiology Fellow Relationship Specialty Start Date End Date Fatemeh Rogers MD [address] [place] [address] PCP - General Internal Medicine 12/22/21 Salomón Chambers [address] [place] [address] Referring Ophthalmology 12/15/22 Faith Mullins APRN.FINANCIAL SALES CONSULTANT [address] [place] [address] [facility] Internal Medicine 02/04/24 Basilio Crouch APRN.PAPER CARRIER [address] [place] [address] Apprentice Machinist Outside Internal Medicine 02/04/24 Cardiology Fellow Relationship Specialty Start Date End Date Fatemeh Rogers MD [address] [place] [address] PCP - General Internal Medicine 12/22/21 Salomón Chambers [address] [place] [address] Referring Ophthalmology 12/15/22 Faith Mullins APRN.FINANCIAL SALES CONSULTANT [address] [place] [address] Apprentice Machinist Outside Internal Medicine 02/04/24 Basilio Crouch COMPUTER NETWORK ENGINEER.PAPER CARRIER [address] [place] [address] Apprentice Machinist Outside Internal Medicine 05/20/24 Cardiology Fellow Relationship Specialty Start Date End Date Fatemeh Rogers MD [address] [place] [address] PCP - General Internal Medicine 12/22/21 Salomón Chambers [address] [place] [address] Referring Ophthalmology 12/15/22 Faith Mullins COMPUTER NETWORK ENGINEER.FINANCIAL SALES CONSULTANT [address] [place] [address] Apprentice Machinist Outside Internal Medicine 02/04/24 Basilio Crouch COMPUTER NETWORK ENGINEER.PAPER CARRIER [address] [place] [address] Apprentice Machinist Outside Internal Medicine 05/20/24 Cardiology Fellow Relationship Specialty Start Date End Date Fatemeh Rogers MD [address] [facility], [place] [address] PCP - General Internal Medicine 12/22/21 Salomón Chambers [address] [place] [address] Referring Ophthalmology 12/15/22 Basilio Crouch COMPUTER NETWORK ENGINEER.PAPER CARRIER [address] [place] [address] Apprentice Machinist Outside Internal Medicine 05/20/24 Faith Mullins APRN.FINANCIAL SALES CONSULTANT [address] [place] [address] Apprentice Machinist Outside Internal Medicine 07/16/24 Cardiology Fellow Relationship Specialty Start Date End Date Fatemeh Rogers MD [address] [place] [address] PCP - General Internal Medicine 12/22/21 Salomón Chambers [address] [place] [address] Referring Ophthalmology 12/15/22 Basilio Crouch COMPUTER NETWORK ENGINEER.PAPER CARRIER [address] [place] [address] Apprentice Machinist Outside Internal Medicine 05/20/24 Faith Mullins APRN.FINANCIAL SALES CONSULTANT [address] [place] [address] Apprentice Machinist Outside Internal Medicine 07/16/24 Goals (unrecognized section and content) Goals may be documented in a n alternate sectionGoals may be documented in an alternate sectionGoals may be documented in an alternate sectionGoals may be documented in an alternate sectionGoals may be documented in an alternate sectionGoals may be documented in an alternate sectionGoals may be documented in an alternate sectionGoals may be documented in an alternate sectionGoals may be documented in an alternate section FOR RECORDS PERTAINING TO PATIENTS WHO ARE [...] BE BASED ON THE PRIMARY CLINICAL RECORDS. [facility] [employer] [facility]. provides no warranty or guarantee of the accuracy or completeness of information in this document.
[2025-02-23 20:12] VITALS: BMI 30.4
[2025-02-23 20:17] VITALS: BP 135/94; PULSE 71; RESP 18; TEMP 36.6; O2SAT 97
[2025-02-23 20:35] VITALS: BP 135/94; PULSE 71
[2025-02-23] MEDS: APIXABAN 5 MG TABLET PO (20:36)
[2025-02-24] VITALS (7 sets, daily range): BP systolic 98–123; BP diastolic 54–64; PULSE 56–61; RESP 16–18; TEMP 36.1–36.6; O2SAT 92–98
[2025-02-24] MEDS: APIXABAN 5 MG TABLET PO (09:20)
--- NOTE | 2025-02-24 09:50 | CASEMGMT ---
RN CM Face to Face with patient for initial transition planning/care coordination assessment. RN CM introduced self and role at [facility]. Patient lying in bed, alert and oriented. Patient willing to participate in assessment and is able to answer all questions appropriately. Care providers, pharmacy, and demographics verified. Strata: 2 PCP: Nicole Specialists: JOSE, Wildlife Technician; Friend, GI Preferred Pharmacy: [facility] Insurance: [facility] Dual, [facility] Prescription Benefit: yes Living Will/HPOA: yes, daughter Suma Baugh LNOK: daughters, son Living Arrangements: Patient lives with daughter in a 2 story home, patient has bed and BSC setup on first floor. Is able to to ambulate stairs slowly. Patient is independent for selfcare. Transportation: self, daughters DME/HHC: Patient has shower chair, BSC, cane, walker, medical alert, nebulizer, pulse ox at home. No previous HHC or SNF. Patient wishes to discharge home, will monitor progress with therapy, may benefit from HHC or SNF pending evals. Patient states he has no further needs or concerns at this time. CM to follow for discharge planning needs that may arise. Disposition Plan: TBD, anticipate HHC vs SNF pending therapy evals. Jody ALCAZARN, RN, CM
--- NOTE | 2025-02-24 12:27 | DCINST_ITS ---
Discharge Instructions DC O2, CPAP, BIPAP needs Home O2 Discharge instructions: No Dressing / Incision Discharge Activity: Return to Normal Activity Dressing / Incision Call your doctor if you observe: Fever of 101 or Higher, Shortness of breath, Dizziness, Fainting spells, Swelling in the ankles, Chest pain and Increased palpitations (irregular heartbeat) Follow Up Care Test Results: Test results from this visit will be discussed in further detail at your follow- up appointment, if applicable. Discharge Plan Admission Admit Date/Time: 02/23/25 17:15 Attending Provider: Agustín Viramontes Primary Care Provider: Valencia Rivera Consulting Providers: Smiley Nino Discharge Orders/Prescriptions Prescriptions: New celecoxib 100 mg Capsule 100 mg PO BID 5 Days Qty: 10 0RF oxycodone 5 mg Tablet 5 mg PO Q4H PRN PRN (Reason: Pain Score 4-10) 3 Days Qty: 10 0RF tizanidine 2 mg Tablet 2 mg PO Q8H PRN PRN (Reason: Muscle Spasms/Musculoskeletal Pain) 5 Days Qty: 12 0RF Continued atorvastatin 40 mg tablet 40 mg PO DAILY fluticasone propion-salmeterol [Advair Diskus] 100-50 mcg/dose blister with device 1 inh inhalation BID PRN (Reason: shortness of breath) epinephrine 0.3 MG syringe 0.3 mg IM X1 albuterol sulfate 18 GM HFA aerosol inhaler 2 puff inhalation Q6H PRN (Reason: Sob &/Or Wheezing) meclizine 25 MG tablet 25 mg PO Q6H PRN (Reason: Dizziness) fluticasone propionate 1 SPRAY spray,suspension 2 spray NASAL DAILY PRN (Reason: Allergies) albuterol sulfate 2.5 MG/3 ML solution for nebulization 2.5 mg inhalation Q4H PRN (Reason: Sob &/Or Wheezing) metoprolol tartrate 25 mg Tablet 25 mg PO BID 30 Days Qty: 60 0RF cetirizine [Allergy Relief (cetirizine)] 10 mg tablet 10 mg PO DAILY benzonatate 100 mg capsule 100 mg PO BID PRN (Reason: cough) pantoprazole 40 mg tablet,delayed release (DR/EC) 40 mg PO DAILY verapamil 240 mg tablet extended release 240 mg PO DAILY Qty: 90 3RF Eliquis 5 mg tablet 5 mg PO BID Qty: 180 2RF Referrals / Follow Up: Joshua Grace MD [Med Staff - Active Staff, Orthopedics] - Within 3 Months Valencia Rivera MD [Primary Care Provider, Internal Medicine] - Within 1 Week Disposition Disposition (needs filled in before D/C Order can be placed): Home, Self Care
--- NOTE | 2025-02-24 12:46 | CASEMGMT ---
Addendum entered by Bere Solitario 02/24/25 16:13: Charge nurse and board layer aware of rx that needs to be provided to pt. Addendum entered by Bere Solitario 02/24/25 16:11: Green sheet on chart and dc readiness checklist completed to give pt signed rx for therapy, hospitalist aware and will be up to sign rx. Addendum entered by Bere Solitario 02/24/25 16:03: Received tc back from Bharti at [facility], they are not able to service pt for [facility]. CHAPARRITA LEONG into pt room, pt is aware that all agencies have been denied. Discussed OP therapy, pt states her dtr could take her and she would be interested in this. Provided her with a list of options of facilities to receive the therapy. She states she does not want RN SALO to schedule as she needs to speak with her dtr to check with her schedule first. Addendum entered by Bere Solitario 02/24/25 15:43: [facility], [facility] and [facility] have all declined pt for services. Addendum entered by Bere Solitario 02/24/25 15:41: TC to [facility] to see if they are able to accept pt, they have not completed the review as of yet per Bharti. Addendum entered by Bere Solitario 02/24/25 13:35: Received tc from Naheed at [facility], they are not in network with pt insurance plan. Updated dc drug safety assistant who will send referrals to other choices. Addendum entered by Bere Solitario 02/24/25 13:25: TC to [facility], referral made for PT and OT, left vm requesting returned call. Original Note: Reviewed therapy notes, CHAPARRITA LEONG into pt room, pt sitting up in bed chair in no distress. Pt states she feels therapy at home would be beneficial to her as she is shaky. Pt agreeable to PT and OT. Pt states her dtr will assist her at home as needed. Pt is aware that dc drug safety assistant will bring in a list of agencies in network with her insurance that [facility] rates by star ratings. Requested she give her top 3 preferences and a referral will be made. Pt verbalizes understanding. Requested dc drug safety assistant make list and obtain choices and make referrals.
--- NOTE | 2025-02-24 15:48 | PCM.DC.SUM ---
Providers Date of Admission: 02/23/25 Primary Care Physician: Dr. Valencia Rivera MD Reason For Visit: INTRACTABLE LBP Diagnosis Discharge Diagnosis (1) Intractable low back pain: Status: Acute Code(s): M54.59 - Other low back pain (2) DDD (degenerative disc disease), lumbar: Status: Acute Code(s): M51.369 - Other intervertebral disc degeneration, lumbar region without mention of lumbar back pain or lower extremity pain (3) Debility: Status: Acute Code(s): R53.81 - Other malaise (4) Inability to walk: Status: Acute Code(s): R26.2 - Difficulty in walking, not elsewhere classified Medications at Discharge Home Medications epinephrine 0.3 mg/0.3 mL injection, auto-injector 0.3 mg IM X1 ALLERGIC REACTIONS 05/04/13 albuterol sulfate 90 mcg/actuation aerosol inhaler 2 puff inhalation Q6H PRN Sob &/Or Wheezing 12/26/15 meclizine 25 mg tablet 25 mg PO Q6H PRN Dizziness 03/28/16 fluticasone propionate 50 mcg/actuation nasal spray,suspension 2 spray NASAL DAILY PRN Allergies 07/02/18 albuterol sulfate 2.5 mg/3 mL (0.083 %) solution for nebulization 2.5 mg inhalation Q4H PRN Sob &/Or Wheezing 12/04/18 verapamil 240 mg tablet,extended release 240 mg PO DAILY BP #90 tabs 12/30/19 atorvastatin 40 mg tablet 40 mg PO DAILY cholesterol 11/18/21 metoprolol tartrate 25 mg tablet 25 mg PO BID 30 days #60 tabs 02/20/23 apixaban 5 mg tablet (Eliquis) 5 mg PO BID thinner #180 tabs 08/10/23 fluticasone 100 mcg-salmeterol 50 mcg/dose blistr powdr for inhalation (Advair Diskus) 1 inh inhalation BID PRN shortness of breath 12/19/23 benzonatate 100 mg capsule 100 mg PO BID PRN cough 03/24/24 pantoprazole 40 mg tablet,delayed release 40 mg PO DAILY stomach 03/24/24 cetirizine 10 mg tablet (Allergy Relief (cetirizine)) 10 mg PO DAILY allergries 02/23/25 celecoxib 100 mg capsule 100 mg PO BID 5 days #10 caps 02/24/25 oxycodone 5 mg tablet 5 mg PO Q4H PRN PRN Pain Score 4-10 3 days #10 tabs 02/24/25 tizanidine 2 mg tablet 2 mg PO Q8H PRN PRN Muscle Spasms/Musculoskeletal Pain 5 days #12 tabs 02/24/25 Hospital Course Operations None Procedures None Summary of Care Provided Minutes Spent on Discharge: 33 Hospital Course: Per HPI: ROMAIN LOMBARDO, is a 74 F who presented to the emergency department [facility] on 02/23/2025 with chief complaint of low back pain. Patient states she has a history of chronic low back issues and her primary care physician, Dr. Rivera, referred her recently to a back surgeon. She is unfamiliar with surgeons name. She was waiting to hear back for getting and has not yet had any communication regarding this. She stated she woke up this morning and had pretty intense back pain when trying to get up to go to the bathroom. She states she was given a muscle relaxant but is not clear what the name was but it does not appear that she has any at this time. She stated over the weekend she was feeling well. She stated it took about 10 minutes to get to the bedside commode and she was not able to really sit up or roll over or do anything without pretty severe pain. Pain is across very extreme low back/upper buttock region. She states she gets intermittent tingling in her feet she stands for long periods of time but that is not new. She has no other neurological symptoms including weakness, tingling, or new numbness. She denies saddle anesthesia and states her bowel and bladder have been functioning without difficulty. Vital signs on presentation showed a temperature of 97.9, heart rate 70, respiratory 20, blood pressure was 153/86 and pulse ox of 97% on room air. CBC was unremarkable other than chronic microcytic anemia that was mild at 11.9 and stable. Chemistry panel is unremarkable. Liver functions are normal. A CT of her lumbar spine was performed and showed extensive changes consistent with degenerative disc disease and degenerative joint disease causing stenosis both foraminal and spinal. No acute findings were noted that were concerning of emergent needs or further imaging in the acute setting. She will be admitted to the medical floor. Length of stay is anticipated to be less than 2 midnights. She be admitted for pain control. Encourage outpatient follow-up with orthopedic surgery as per referral noted above. Hospital Course: 1. Intractable low back pain with inability to ambulate secondary to acute on chronic degenerative disc disease and acute flare?74-year-old female presented to the hospital with severe back pain. No red flag symptoms though she does occasionally get tingling in her feet. Today she was feeling much better and she was able to ambulate with physical therapy, she was modified independent with a wheeled walker 180 feet and was able to go home alone if necessary. I would recommend outpatient therapy. I did refer her to Ortho spine for evaluation as she did have a lumbar CT scan that demonstrated disc bulge with spinal stenosis from L2-L5 and left foraminal stenosis between L3 and S1. Should have improvement with the current pain regimen which she was discharged on, she was given 5 days of Celebrex at 100 mg p.o. twice daily, we are aware that she is on Eliquis and there is fairly low risk given the fact that Celebrex does not affect stomach lining significantly, will continue with oxycodone as well as Zanaflex for a few days as well. Do recommend outpatient follow-up with her PCP. I discussed with her the possibility for discharge today and she expressed understanding of the risks and benefits of going home and would like to go home today. 2. Chronic left foot drop, chronic microcytic anemia, paroxysmal A-fib, essential hypertension, hyperlipidemia, history of vertigo, GERD, asthma or other chronic medical conditions which complicate her care. Her home medications were continued where appropriate Weight / BMI Weight Weight: 188 lb 11.451 oz Body Mass Index (BMI) 30.4 ABG / Lab / Microbiology Data 02/23/25 15:20 02/23/25 15:20 Laboratory: Laboratory Results - last 24 hr 02/23/25 15:20: WBC 5.4, RBC 5.09, Hgb 11.9 L, Hct 38.0, MCV 74.7 L, MCH 23.4 L, MCHC 31.3 L, RDW Std Deviation 42.6, RDW Coeff of Kahlil 15.9 H, Plt Count 299, MPV 9.8, Immature Gran % (Auto) 0.200, Neut % (Auto) 56.6, Lymph % (Auto) 30.2, Faulk % (Auto) 9.5, Eos % (Auto) 2.8, Baso % (Auto) 0.7, Absolute Neuts (auto) 3.0, Absolute Lymphs (auto) 1.62, Nucleated RBC % 0, Sodium 144, Potassium 3.6, Chloride 109 H, Carbon Dioxide 26.3, Anion Gap 8, BUN 12, Creatinine 0.67 L, Estim Creat Clear Calc 71.09, Est GFR (MDRD) Non-Af 92, BUN/Creatinine Ratio 18.2, Glucose 87, Calcium 9.1, Total Bilirubin 0.61, AST 20, ALT 14, Alkaline Phosphatase 138 H, Total Protein 6.4, Albumin 4.0, Globulin 2.4, Albumin/Globulin Ratio 1.7 Radiography Diagnostic Testing: Radiology Impression Lumbar Spine CT 02/23/25 15:41 IMPRESSION: L2-3: Findings suggest possible disc extrusion causing spinal stenosis. Mild left foraminal stenosis. L4-5: Disc bulge with possibly high-grade spinal stenosis. Bilateral foraminal stenosis. L3-4: Disc bulge. [id number] left foraminal stenosis. Possible lateral recess stenoses. L5-S1: Disc bulge with possible lateral recess stenoses. Left foraminal stenosis. Leftward and anterolisthesis of L4 on L5 again identified. No pars defect. Spondylosis and levoscoliosis again identified. Other chronic changes. MRI would be of benefit for further assessment of thecal sac and discs, or CT myelogram if there is contraindication to MRI. Reading Location: [facility] Instructions Call your doctor if you observe: Fever of 101 or Higher, Shortness of breath, Dizziness, Fainting spells, Swelling in the ankles, Chest pain and Increased palpitations (irregular heartbeat) DC O2, CPAP, BIPAP Needs Home O2 Discharge instructions: No Meaningful Use Info Meaningful Use Meaningful Use Diagnoses (Choose all that apply): None applicable Discharge Plan Admission Admit Date/Time: 02/23/25 17:15 Attending Provider: Agustín Viramontes Primary Care Provider: Valencia Rivera Consulting Providers: Smiley Nino Discharge Orders/Prescriptions Prescriptions: New celecoxib 100 mg Capsule 100 mg PO BID 5 Days Qty: 10 0RF oxycodone 5 mg Tablet 5 mg PO Q4H PRN PRN (Reason: Pain Score 4-10) 3 Days Qty: 10 0RF tizanidine 2 mg Tablet 2 mg PO Q8H PRN PRN (Reason: Muscle Spasms/Musculoskeletal Pain) 5 Days Qty: 12 0RF Continued atorvastatin 40 mg tablet 40 mg PO DAILY fluticasone propion-salmeterol [Advair Diskus] 100-50 mcg/dose blister with device 1 inh inhalation BID PRN (Reason: shortness of breath) epinephrine 0.3 MG syringe 0.3 mg IM X1 albuterol sulfate 18 GM HFA aerosol inhaler 2 puff inhalation Q6H PRN (Reason: Sob &/Or Wheezing) meclizine 25 MG tablet 25 mg PO Q6H PRN (Reason: Dizziness) fluticasone propionate 1 SPRAY spray,suspension 2 spray NASAL DAILY PRN (Reason: Allergies) albuterol sulfate 2.5 MG/3 ML solution for nebulization 2.5 mg inhalation Q4H PRN (Reason: Sob &/Or Wheezing) metoprolol tartrate 25 mg Tablet 25 mg PO BID 30 Days Qty: 60 0RF cetirizine [Allergy Relief (cetirizine)] 10 mg tablet 10 mg PO DAILY benzonatate 100 mg capsule 100 mg PO BID PRN (Reason: cough) pantoprazole 40 mg tablet,delayed release (DR/EC) 40 mg PO DAILY verapamil 240 mg tablet extended release 240 mg PO DAILY Qty: 90 3RF Eliquis 5 mg tablet 5 mg PO BID Qty: 180 2RF Referrals / Follow Up: Joshua Grace MD [Med Staff - Active Staff, Orthopedics] - Within 3 Months Valencia Rivera MD [Primary Care Provider, Internal Medicine] - Within 1 Week Disposition Disposition (needs filled in before D/C Order can be placed): Home Health Service Charges/Coding Visit Charges Inpatient E&M: 98611 Disch Hosp >30min
--- NOTE | 2025-02-24 17:55 | NURSING ---
iv removed catheter intact patient dresses herself this rn performs d/c instructions patient verbalized no further questions
== END 2025-02-24 18:09 | disposition home health service (06) ==
LOC: ED 15:14 → MS3 18:00
PROVIDERS: Admitting Provider Internal Medicine; Emergency Provider Emergency Medicine; PCP Internal Medicine; Visit Provider Family Medicine
DX: M51.360 Other intervertebral disc degeneration, lumbar region with discogenic back pain only (principal); I48.0 Paroxysmal atrial fibrillation; K21.9 Gastro-esophageal reflux disease without esophagitis; Z79.51 Long term (current) use of inhaled steroids; D50.9 Iron deficiency anemia, unspecified; E78.5 Hyperlipidemia, unspecified; I10 Essential (primary) hypertension; R53.81 Other malaise; M48.061 Spinal stenosis, lumbar region without neurogenic claudication; Z79.01 Long term (current) use of anticoagulants; R26.2 Difficulty in walking, not elsewhere classified; J45.909 Unspecified asthma, uncomplicated; Z79.899 Other long term (current) drug therapy
CPT/HCPCS: 72131; 80053; 85025; 96374; 96375; 97162; 97166; 99221; 99285; A4216; G0378; J2405